=== PATIENT | female | born 1960 | race Caucasian/White ===

== ENCOUNTER → 2019-11-22 08:59 | Outpatient (BNVA) | payer MEDICAID, SELFPAY | PROVIDERS: PCP Internal Medicine Geriatric Medicine; Referring Provider Internal Medicine Geriatric Medicine; Visit Provider Physician Assistant | DX: K21.9 Gastro-esophageal reflux disease without esophagitis (principal); R68.81 Early satiety; R13.10 Dysphagia, unspecified; Z79.899 Other long term (current) drug therapy; Z98.84 Bariatric surgery status | CPT/HCPCS: 99213 ==

== ENCOUNTER 2019-12-04 06:53 | Outpatient (REF) | payer MEDICAID, SELFPAY | END 2019-12-04 06:54 | disposition home or self-care (01) | LOC: HO.LAB 06:53 | PROVIDERS: Visit Provider Internal Medicine | DX: Z20.828 Contact with and (suspected) exposure to other viral communicable diseases (principal) | CPT/HCPCS: 87635 ==

== ENCOUNTER → 2020-01-16 07:53 | Outpatient (BNVA) | payer MEDICAID, SELFPAY | PROVIDERS: Visit Provider Physician Assistant | DX: K21.9 Gastro-esophageal reflux disease without esophagitis (principal) | CPT/HCPCS: 99212 ==

== ENCOUNTER 2020-02-22 11:57 | Outpatient (REF) | payer MEDICAID, SELFPAY | END 2020-02-22 11:58 | disposition home or self-care (01) | LOC: HO.LAB 11:57 | PROVIDERS: PCP Internal Medicine Geriatric Medicine; Visit Provider Internal Medicine | DX: Z20.828 Contact with and (suspected) exposure to other viral communicable diseases (principal) | CPT/HCPCS: 36415; C9803; U0003 ==

== ENCOUNTER 2020-04-02 13:15 | Outpatient (REF) | payer MEDICAID, SELFPAY ==
--- NOTE | ~2020-04-02 | MM_ITS ---
EXAMINATION: BONE DENSITOMETRY CLINICAL INDICATION: Asymptomatic premature menopause. COMPARISON: This is the patient's baseline examination. TECHNIQUE: Using a [employer] DXA System (software version: 13.1) manufactured by [employer], dual-energy x-ray absorptiometry was performed of the lumbar spine and left hip. The images are of good technical quality. Summary results are attached. FINDINGS: AP SPINE L1-L4: BMD 1.171 g/cm2, Z-score 0.9, T-score -0.1, normal. LEFT FEMUR, NECK: BMD 0.655 g/cm2, Z-score -1.6, T-score -2.8, osteoporosis. LEFT FEMUR, TOTAL: BMD 0.759 g/cm2, Z-score -1.2, T-score -2.0, osteopenia. IDENTIFIED RISK FACTORS: Early menopause, alcohol (3 or more units per day), bilateral oophorectomy, secondary osteoporosis, history of fracture (adult). HISTORY OF FRACTURE: Wrist, trauma. No insufficiency fracture reported. MEDICATIONS: Calcium, vitamin D. MM/XR DEXA axial skeleton IMPRESSION: 1. DIAGNOSIS: Osteoporosis based on the lowest T-score value of -2.8 in the femoral neck applying World Health Organization criteria. 2. 10-YEAR FRACTURE RISK PREDICTION, FRAX: According to the guidelines, FRAX calculation should only be performed on patients in the osteopenia bone density category. Therefore, FRAX was not performed on this patient. 3. Treatment Recommendations: NOF guidelines recommend consideration for treatment in postmenopausal women and men age 50 and older presenting with the following: -A hip or vertebral (clinical or morphometric) fracture. -T-score less than or equal to -2.5 at the femoral neck or spine after appropriate evaluation to exclude secondary causes. -Low bone mass at the hip or spine and a 10-year fracture probability by FRAX of greater than or equal to 3% for hip fracture or greater than or equal to 20% for major osteoporotic fracture based on the [place] adapted WHO algorithm. 4. Other Recommendations: All treatment decisions require clinical judgment and consideration of individual patient factors, including patient preferences, comorbidities, previous drug use, risk factors not captured in the FRAX model (e.g. frailty, falls, vitamin D deficiency, increased bone turnover, interval significant decline in bone density) and possible under or overestimation of fracture risk by FRAX. Additional medical evaluation for secondary cause of low bone mineral density may be appropriate. FUTURE SCAN RECOMMENDATION: People with diagnosed cases of osteoporosis or at high risk for fracture should have regular bone mineral density tests. For patients eligible for Medicare, routine testing is allowed once every 2 years. The testing frequency can be increased to one year for patients who have rapidly progressing disease, those who are receiving or discontinuing medical therapy to restore bone mass, or have additional risk factors.
== END 2020-04-02 13:16 | disposition home or self-care (01) ==
LOC: HO.MAMMO 13:15
PROVIDERS: PCP Internal Medicine Geriatric Medicine; Visit Provider Advanced Practice Midwife
DX: Z13.820 Encounter for screening for osteoporosis (principal); E28.319 Asymptomatic premature menopause; Z79.899 Other long term (current) drug therapy; Z87.81 Personal history of (healed) traumatic fracture; Z90.722 Acquired absence of ovaries, bilateral
CPT/HCPCS: 77080

== ENCOUNTER → 2020-06-06 11:32 | Outpatient (BNVA) | payer MEDICAID, SELFPAY | PROVIDERS: PCP Internal Medicine Geriatric Medicine; Visit Provider Internal Medicine | DX: J45.909 Unspecified asthma, uncomplicated (principal) | CPT/HCPCS: 99212 ==

== ENCOUNTER 2020-06-19 14:49 | Emergency (ER) | payer MEDICAID, SELFPAY ==
--- NOTE | ~2020-06-19 | CT_ITS ---
EXAMINATION: CT ABDOMEN AND PELVIS WITHOUT CONTRAST CLINICAL INFORMATION: Intermittent hematuria with flank pain. COMPARISON: CT abdomen pelvis 05/15/2017 TECHNIQUE: Multidetector volumetric imaging was performed from the superior aspect of the liver through the pubic symphysis. Sagittal and coronal reformatted images were obtained on the technologist's workstation. This CT examination was performed using dose optimization techniques as appropriate, variously including the following: *Automated exposure control *Adjustment of mA and/or kV according to patient size (this includes techniques or standardized protocols for targeted exams where dose is matched to indication/reason for exam; i.e. extremities or head) *Use of iterative reconstruction technique DLP: 677 mGy-cm FINDINGS: Visualized lung bases demonstrate mild dependent atelectasis. The liver is normal in size but demonstrates diffusely decreased attenuation. The gallbladder is surgically absent. The pancreas, spleen and right adrenal gland are unremarkable. The left adrenal gland is not definitively visualized. The kidneys are symmetric in size. There is a nonobstructing 1 mm calculus within the upper pole of the left kidney. There is mild dilatation of the left lower pole calyx without hydronephrosis. No right-sided renal calculi are present. There is no hydronephrosis of either kidney. Surgical changes of the stomach. Normal caliber loops of small and large bowel. Moderate colonic diverticulosis without CT evidence to suggest active diverticulitis. Normal appendix. The bladder is decompressed and therefore not accurately evaluated. No gross bladder abnormality identified. Uterus is surgically absent. No gross free pelvic fluid. No inguinal lymphadenopathy. Mild to moderate diffuse degenerative changes of the spine. CT/CT abdomen pelvis wo con IMPRESSION: 1. Tiny 1 mm nonobstructing left renal calculus. No hydronephrosis. 2. Colonic diverticulosis without CT evidence to suggest active diverticulitis. 3. Diffusely decreased liver attenuation suggesting hepatic steatosis. Correlation with liver enzymes recommended.
[2020-06-19 14:53] VITALS: PULSE 92; O2SAT 98
[2020-06-19 14:57] VITALS: BP 133/82; PULSE 89; RESP 18; TEMP 36.7; O2SAT 98; BMI 29.2
[2020-06-19 16:17] LABS: Appearance Urine CLEAR; Color Urine YELLOW; Glucose Urine UA NEG (NEG); Leukocyte Esterase Urine NEG (NEG); Nitrite Urine NEG (NEG); PH 6.5 (5.0-8.0); Urine Blood TRACE (NEG); Urine Ketones NEG (NEG); Urine Protein NEG (NEG-TRACE)
[2020-06-19 16:27] LABS: RBC Urine 0-2 /HPF (0); WBC Urine 0 /HPF (0-4)
[2020-06-19 16:28] LABS: Bacteria Urine TRACE /LPF
--- NOTE | 2020-06-19 18:08 | ED_ITS ---
HPI - Female Genitourinary General Chief complaint: Urogenital-Female Stated complaint: abd pain Time Seen by Provider: 06/19/20 18:08 Source: patient Mode of arrival: ambulatory Limitations: no limitations History of Present Illness HPI Narrative: Patient noticed bright blood when she wiped after urination for last 2 days got worse today denies any rectal bleeding and status post hysterectomy also complaining of low back pain and flank pain for last few days patient , had dysuria no frequency MD elicited complaint: dysuria Related Data Home Medications Medication Instructions Recorded Confirmed doxepin 75 mg capsule 75 mg PO BEDTIME 11/22/19 01/16/20 esomeprazole magnesium 10 mg 20 mg PO DAILY 11/22/19 01/16/20 granules delayed release for susp levothyroxine 75 mcg tablet 75 mcg PO DAILY 11/22/19 01/16/20 midodrine 10 mg tablet 5 mg PO TID 11/22/19 01/16/20 multivitamin with minerals-folic tab PO 11/22/19 01/16/20 acid 200 mcg chewable tablet omeprazole 20 mg capsule,delayed 20 mg PO DAILY 11/22/19 01/16/20 release topiramate 15 mg sprinkle capsule 75 mg PO BEDTIME 11/22/19 01/16/20 albuterol sulfate 90 mcg/actuation 2 puff INHALATION Q6H PRN 06/06/20 aerosol inhaler estazolam 1 mg tablet 3 mg PO BEDTIME tab 06/06/20 Previous Rx's Medication Instructions Recorded albuterol sulfate 2.5 mg INHALATION Q4H PRN #180 ml 05/24/20 Allergies Allergy/AdvReac Type Severity Reaction Status Date / Time Nubain Allergy Unknown SOB Verified 06/06/20 11:41 From NUBAIN Allergy Severe ANAPHYLAXIS Uncoded 11/02/19 18:20 Review of Systems Review of Systems: Constitutional : No Weight loss, No Fever, No Chills ENT/Mouth : No sore throat, No Rhinorrhea Eyes: No Eye Pain, No Swelling Cardiovascular : No Chest Pain, no palpitations Respiratory : No Cough, No Sputum, no shortness of breath Gastrointestinal : no Nausea, No Vomiting, No Diarrhea, No abdominal Pain, no black stools Genitourinary : + Dysuria, No Urinary Frequency Musculoskeletal : No joint pain, No Myalgias, No Joint Swelling Skin : No Skin Lesions, No rash Neuro : No Weakness, No Numbness, No Dizziness, No Headache Psych : No Anxiety/Panic, No Depression Heme/Lymph: No Bruising, No Lymphadenopathy Endocrine : No Polyuria, No Polydipsia All other systems reviewed and are negative Yes all other systems are reviewed and are negative [facility] Past Medical History Medical History Acid reflux Bronchial asthma Surgical History Hx of colonoscopy Family History Family History Father No problems noted. Mother No problems noted. Social History Social History Household Members Other:: alone Alcohol intake: never Smoking Status: Never smoker Smoked in Last 30 Days: No Use of substances other than those prescribed or required for medical reasons: No Advance Directives: No Advance Directives Information Provided: Yes Patient : No Physical Exam Vital Signs: Vital Signs: Last Vital Signs Temp 98.0 F 06/19/20 14:57 Pulse 73 06/19/20 18:28 Resp 18 06/19/20 18:28 BP 99/66 06/19/20 18:28 Pulse Ox 100 06/19/20 18:28 Body Mass Index 29.2 Appearance: Alert. Oriented X3. No acute distress. Eyes: PERRLA, No Nystagmus ENT: Pharynx normal. Oral Mucosa moist Neck: Normal inspection. Neck supple. CVS: Normal heart rate and rhythm. Pulses normal. Respiratory: No respiratory distress. Equal air entry bilateral, no wheezing/rales/rhonchi Abdomen: Soft and nontender. Bowel sounds are present, no mass palpable, no CVA tenderness diffuse lower back tenderness Skin: Skin warm and dry. Normal skin color. Normal skin turgor. Extremities: No lower extremity edema. No calf tenderness Neuro: Oriented X 3. No motor deficit. No sensory deficit.No cerebellar signs , cranial nerves II-XII intact MDM - Female Genitourinary MDM Narrative Medical decision making narrative: Patient with intermittent hematuria with low back pain will do CT scan to rule out stone. Patient urinated in the ER this time there was no blood in the urine. Lab Data Attestation: I reviewed the patient's lab results. Result diagrams: 06/19/20 18:38 06/19/20 18:38 Labs: Lab Results 06/19/20 06/19/20 06/19/20 Range/Units 16:08 18:38 18:38 WBC 6.4 (4.8-10.8) X10*3/uL RBC 4.78 (4.20-5.50) X10*6/uL Hgb 13.3 (12.0-16.0) g/dl Hct 41.8 (37-47) % MCV 87.4 (80-98) fL MCH 27.8 (27.0-33.0) pg MCHC 31.8 (31.0-35.0) g/dl RDW 14.6 (11.0-16.0) % Plt Count 275 (160-400) X10*3/uL MPV 9.5 (9.4-12.3) fL Immature Gran % (Auto) 0.2 (0.0-0.4) % Neut % (Auto) 60.5 (45-73) % Lymph % (Auto) 27.6 (20-40) % Coffee % (Auto) 9.8 (2-11) % Eos % (Auto) 1.4 (0-4) % Baso % (Auto) 0.5 (0-2) % Lymph # (Auto) 1.8 (1.2-4.9) X10*3/uL Coffee # (Auto) 0.6 (0.1-1.2) X10*3/uL Eos # (Auto) 0.1 (0.0-0.4) X10*3/uL Baso # (Auto) 0.0 (0.0-0.2) X10*3/uL Abs Immat Gran (auto) 0.01 (0.00-0.03) X10*3/uL Absolute Neuts (auto) 3.9 (2.0-8.3) X10*3/uL Absolute Nucleated RBC 0.000 (0.0-0.012) X10*3/uL Nucleated RBC % (auto) 0.0 (0.0-0.2) /100WBC Sodium 140 (135-145) mmol/L Potassium 4.2 (3.3-5.1) mmol/L Chloride 109 H (96-108) mmol/L Carbon Dioxide 25 (22-29) mmol/L Anion Gap 10 L (12-20) BUN 22 H (9-16) mg/dL Creatinine 0.79 (0.5-1.4) mg/dL Estim Creat Clear Calc 72.4 Estimated GFR > 60 Random Glucose 105 (60-115) mg/dL Calcium 8.8 (8.4-10.2) mg/dL Total Bilirubin 0.4 (0.0-1.0) mg/dL Direct Bilirubin < 0.2 (0.0-0.5) mg/dL AST 19 (5-31) U/L ALT 16 (0-31) U/L Alkaline Phosphatase 77 (39-117) U/L Total Protein 6.8 (6.5-8.0) g/dL Albumin 4.0 (3.5-5.0) g/dL Urine Color YELLOW Urine Appearance CLEAR Urine pH 6.5 (5.0-8.0) Ur Specific [place] 1.010 (1.005-1.025) Urine Protein NEG (NEG-TRACE) MG/DL Urine Glucose (UA) NEG (NEG) MG/DL Urine Ketones NEG (NEG) MG/DL Urine Blood TRACE (NEG) Urine Nitrite NEG (NEG) Ur Leukocyte Esterase NEG (NEG) Urine RBC 0-2 (0) /HPF Urine WBC 0 (0-4) /HPF Ur Squamous Epith Cells NONE /LPF Urine Bacteria TRACE /LPF Discharge Plan Discharge Clinical Impression: Hematuria Qualifiers: Hematuria type: gross Qualified Code(s): R31.0 - Gross hematuria Patient Disposition: Home, Self-Care Instructions: Hematuria (ED) Additional Instructions: Drink plenty of fluids no blood in the urine noticed in the ER. Her CT scan is also negative for any acute pathology. Follow with urologist if blood in urine continues Prescriptions: No Action albuterol sulfate 2.5 mg /3 mL (0.083 %) solution for nebulization 2.5 mg inhalation Q4H PRN (Reason: shortness of breath or wheezing) Qty: 180 RF: 0 doxepin 75 mg capsule 75 mg PO BEDTIME RF: 0 levothyroxine [Levo-T] 75 mcg tablet 75 mcg PO DAILY RF: 0 esomeprazole magnesium [address] for susp in packet 20 mg PO DAILY RF: 0 topiramate [Topamax] 15 mg capsule, sprinkle 75 mg PO BEDTIME RF: 0 Adult Multivitamin Gummies 200 mcg tablet,chewable PO RF: 0 omeprazole 20 mg capsule,delayed release(DR/EC) 20 mg PO DAILY RF: 0 midodrine 10 mg tablet 5 mg PO TID RF: 0 estazolam 1 mg tablet 3 mg PO BEDTIME RF: 0 albuterol sulfate [ProAir HFA] 90 mcg/actuation HFA aerosol inhaler 2 puff inhalation Q6H PRNRF: 0 Referrals: Eliazar Caputo MD [Physician] - 1 week Interventions: ED Discharge Assessment Last Done: 06/19/20 20:56 Discharge Date/Time: 06/19/20 21:00
[2020-06-19 18:28] VITALS: BP 99/66; PULSE 73; RESP 18; O2SAT 100
[2020-06-19 18:43] LABS: MANUAL DIFF FLAG NO
[2020-06-19 18:47] LABS: Basophils Percent Auto 0.5 % (0-2); Eosinophils Absolute Auto 0.1 X10*3/uL (0.0-0.4); Eosinophils Percent Auto 1.4 % (0-4); Hematocrit 41.8 % (37-47); Hemoglobin 13.3 g/dl (12.0-16.0); Imm Gran Abs Auto 0.01 X10*3/uL (0.00-0.03); Imm Gran Pct Auto 0.2 % (0.0-0.4); Lymphocytes Absolute Auto 1.8 X10*3/uL (1.2-4.9); Lymphocytes Percent Auto 27.6 % (20-40); Mean Corpuscular HGB Conc 31.8 g/dl (31.0-35.0); Mean Corpuscular Hemoglobin 27.8 pg (27.0-33.0); Mean Corpuscular Volume 87.4 fL (80-98); Mean Platelet Volume 9.5 fL (9.4-12.3); Monocytes Absolute Auto 0.6 X10*3/uL (0.1-1.2); Monocytes Percent Auto 9.8 % (2-11); Neutrophils Absolute Auto 3.9 X10*3/uL (2.0-8.3); Neutrophils Percent Auto 60.5 % (45-73); Platelet Count 275 X10*3/uL (160-400); Red Blood Count 4.78 X10*6/uL (4.20-5.50); Red Cell Distribution Width 14.6 % (11.0-16.0); White Blood Count 6.4 X10*3/uL (4.8-10.8)
[2020-06-19 19:08] LABS: Alanine Aminotransferase 16 U/L (0-31); Alkaline Phosphatase 77 U/L (39-117); Anion Gap 10 (12-20); Aspartate Amino Transferase 19 U/L (5-31); Bilirubin Direct < 0.2 mg/dL (0.0-0.5); Bilirubin Total 0.4 mg/dL (0.0-1.0); Blood Urea Nitrogen 22 mg/dL (9-16); Calcium 8.8 mg/dL (8.4-10.2); Carbon Dioxide 25 mmol/L (22-29); Chloride 109 mmol/L (96-108); Creatinine Clr Calc Pharmacy 72.4; Estimated Glomerular Filt Rate > 60; Glucose Random 105 mg/dL (60-115); Potassium 4.2 mmol/L (3.3-5.1); Sodium 140 mmol/L (135-145); Total Protein 6.8 g/dL (6.5-8.0)
== END 2020-06-19 21:00 | disposition home or self-care (01) ==
PROVIDERS: Emergency Medicine; Emergency Provider Internal Medicine; PCP Internal Medicine Geriatric Medicine
DX: R31.0 Gross hematuria (principal); Z79.899 Other long term (current) drug therapy
CPT/HCPCS: 36415; 74176; 80048; 80076; 81001; 85025; 99284

== ENCOUNTER → 2020-07-03 10:22 | Outpatient (BNVA) | payer MEDICAID, SELFPAY | PROVIDERS: PCP Internal Medicine Geriatric Medicine; Visit Provider Physician Assistant | DX: K57.30 Diverticulosis of large intestine without perforation or abscess without bleeding (principal); K62.5 Hemorrhage of anus and rectum | CPT/HCPCS: 99202 ==

== ENCOUNTER 2020-08-08 06:01 | Day surgery (SDC) | payer MEDICAID, SELFPAY ==
[2020-08-01 14:19] VITALS: BMI 28.8
--- NOTE | 2020-08-07 08:43 | HO.ANESPROP2 ---
Documented by User: Farrah Vela 08/07/20 08:43 HPI - Anesthesia Eval Consult details Narrative: 59yo F for Colonoscopy PMFSH Active Problems Active Problems: All Active Problems (Updated 08/01/20 @ 13:50 by Romana Luna) Early satiety (Acute) Rectal bleeding (Acute) Diverticulosis of colon (Acute) Bronchial asthma (Acute) Acid reflux (Acute) Past Medical History Medical History (Updated 08/08/20 @ 07:46 by Rajwinder Rousseau) Acid reflux Bronchial asthma Colon polyp COVID-19 vaccine administered Crystal arthropathy Diverticulosis of colon Kidney calculi Kidney tumor Pseudotumor cerebri Right shoulder injury Thyroid disease Family History Family History Father No problems noted. Mother No problems noted. Surgical History Surgical History History of hysterectomy History of surgery on wrist Hx laparoscopic cholecystectomy Hx of colonoscopy Hx of gastric bypass Previous section Social History Social History Household Members: None Household Members Other:: alone Are you a primary caretaker resort to a significant other at home: No Do you presently have visiting nurse or other home services: No Alcohol intake: never Patient Tobacco Use Status: Never used Tobacco Use of substances other than those prescribed or required for medical reasons: No Have you been hit, kicked, punched, or otherwise hurt by someone within the past year? If so, by whom?: No Are you DNR?: No Advance Directives: No Advance Directives Information Provided: No Advance Directives on File: No Recently lost weight without trying: No Eating poorly because of decreased appetite: No Nutrition Risks: No Nutritional Risk Current occupational status: disabled Meds Allergies Allergy/AdvReac Type Severity Reaction Status Date / Time Nubain Allergy Severe Anaphylaxis Verified 08/08/20 06:28 Home Medications Medication Instructions Recorded Confirmed Last Taken Type doxepin 75 mg capsule 75 mg PO BEDTIME 11/22/19 08/01/20 Unknown History levothyroxine 75 mcg tablet 75 mcg PO DAILY 11/22/19 08/01/20 Unknown History midodrine 10 mg tablet 5 mg PO TID 11/22/19 08/01/20 Unknown History multivitamin with minerals-folic 1 tab PO DAILY 11/22/19 08/01/20 Unknown History acid 200 mcg chewable tablet omeprazole 20 mg capsule,delayed 20 mg PO DAILY 11/22/19 08/01/20 Unknown History release topiramate 15 mg sprinkle capsule 75 mg PO BEDTIME 11/22/19 08/01/20 Unknown History albuterol sulfate 90 mcg/actuation 2 puff INHALATION Q6H PRN 06/06/20 08/01/20 Unknown History aerosol inhaler estazolam 1 mg tablet 3 mg PO BEDTIME tab 06/06/20 08/01/20 Unknown History Exam Exam Date and Time: August 07, 2020 0843 Height,Weight and Vital Signs: Height 5 ft 3 in Weight 73.936 kg Pertinent Lab Results Pertinent Lab Results: Laboratory Tests 06/19/20 06/19/20 18:38 18:38 WBC 6.4 Hgb 13.3 Hct 41.8 Plt Count 275 Sodium 140 Potassium 4.2 Chloride 109 H Carbon Dioxide 25 BUN 22 H Creatinine 0.79 Assessment and Plan Assessment Anesthesia Assessment: Chart Reviewed Documented by User: Rajwinder Rousseau 08/08/20 07:52 [facility] Past Medical History Medical History (Updated 08/08/20 @ 07:46 by Rajwinder Rousseau) Acid reflux Bronchial asthma Colon polyp COVID-19 vaccine administered Crystal arthropathy Diverticulosis of colon Kidney calculi Kidney tumor Pseudotumor cerebri Right shoulder injury Thyroid disease Family History Family History Father No problems noted. Mother No problems noted. Family history of problems with anesthesia: No Surgical History Surgical History History of hysterectomy History of surgery on wrist Hx laparoscopic cholecystectomy Hx of colonoscopy Hx of gastric bypass Previous section History of Problems with Anesthesia: No Social History Social History Household Members: None Household Members Other:: alone Are you a primary caretaker resort to a significant other at home: No Do you presently have visiting nurse or other home services: No Alcohol intake: never Patient Tobacco Use Status: Never used Tobacco Use of substances other than those prescribed or required for medical reasons: No Have you been hit, kicked, punched, or otherwise hurt by someone within the past year? If so, by whom?: No Are you DNR?: No Advance Directives: No Advance Directives Information Provided: No Advance Directives on File: No Recently lost weight without trying: No Eating poorly because of decreased appetite: No Nutrition Risks: No Nutritional Risk Current occupational status: disabled Meds Allergies Allergy/AdvReac Type Severity Reaction Status Date / Time Nubain Allergy Severe Anaphylaxis Verified 08/08/20 06:28 Home Medications Medication Instructions Recorded Confirmed Last Taken Type doxepin 75 mg capsule 75 mg PO BEDTIME 11/22/19 08/01/20 Unknown History levothyroxine 75 mcg tablet 75 mcg PO DAILY 11/22/19 08/01/20 Unknown History midodrine 10 mg tablet 5 mg PO TID 11/22/19 08/01/20 Unknown History multivitamin with minerals-folic 1 tab PO DAILY 11/22/19 08/01/20 Unknown History acid 200 mcg chewable tablet omeprazole 20 mg capsule,delayed 20 mg PO DAILY 11/22/19 08/01/20 Unknown History release topiramate 15 mg sprinkle capsule 75 mg PO BEDTIME 11/22/19 08/01/20 Unknown History albuterol sulfate 90 mcg/actuation 2 puff INHALATION Q6H PRN 06/06/20 08/01/20 Unknown History aerosol inhaler estazolam 1 mg tablet 3 mg PO BEDTIME tab 06/06/20 08/01/20 Unknown History Exam Height,Weight and Vital Signs: Vital Signs Temp Pulse Resp BP Pulse Ox 08/08/20 06:29 96.9 F 74 16 122/79 100 Airway Mallampati Class: II TM Dist: >3cm Neck ROM: Limited Heart: RRR Lungs: CTAB Assessment and Plan Assessment Anesthesia Assessment: Anesthesia Plan Discussed and Chart Reviewed Final Anesthetic Review NPO: Yes ASA Class: II Final Preanesthetic Review: No Changes in Pt Med Stat, Meds/Allgs Chart Reviewed, Consent Obtained/Reviewed and Anes Risks/Benef Reviewed Patient Risk: Intermediate Procedure Risk: Low Assessment/Block/Sedation in SS: Assess/Block/Sedation-SS Anesthetic Plan Anesthetic Plan: MAC: Disposition: Standard PACU
[2020-08-08 06:29] VITALS: BP 122/79; PULSE 74; RESP 16; TEMP 36.1; O2SAT 100
[2020-08-08] MEDS: Lactated Ringers 1,000 ML 100 ML IVCONT (06:50)
--- NOTE | 2020-08-08 07:08 | W.PM.OPN ---
Operative Note Operative Note Date of Service: 08/08/20 Narrative: Pre-op diagnosis: Colon cancer screening, rectal bleeding Post-op diagnosis: other (Colon polyps, diverticulosis, hemorrhoids, nodule HF.) Procedure: COLONOSCOPY TILL CECUM WITH BIOPSIES Consent: Indications for the procedure and potential complications of bleeding, perforation, reaction to medications and missed diagnosis were discussed with the patient and informed consent was obtained. Instrument: Olympus PCF H 190 L variable stiffness pediatric colonoscope Monitoring: Vital signs and clinical assessment, intermittent blood pressure monitoring, continuous EKG monitoring, Pulse oximetry and Carbon Dioxide monitoring were done throughout the procedure. Colon withdrawl time was 23 minutes. Procedure: The patient was placed in the left lateral decubitis position and pre-procedure medications were administered. After a digital rectal examination of the ano-rectum, the video colonoscope was inserted into the rectum and advanced through the colon to the cecum. The colonoscope was slowly withdrawn in a retrograde panoramic fashion and the colon mucosa was carefully examined including a retroflexed view of the rectum. Findings and interventions are described below. Procedure Difficulty: Without difficulty Findings: Terminal Ileum: Not evaluated Cecum: Normal Ascending Colon: a 3-4 mm sessile polyp removed with a cold biopsy. Transverse Colon: Normal Descending Colon: Moderate diverticulosis Sigmoid Colon: A 2-3 mm diminutive appearing polyp - removed with a cold bx. Severe diverticulosis Rectum: Normal Ano-rectum: Moderate internal hemorrhoids Colon preparation: Good after some irrigation Impression and Post Procedure Diagnosis: Colonoscopy Findings: Two small polyps removed Moderate to severe diverticulosis seen in the left colon Moderate hemorrhoids on retroflexed exam. Plan: Await pathology results Patient has an appointment on 08/26/20 in the GI Clinic with YARI Arevalo . Repeat Colonoscopy interval based on path results - in 3-5 years if polyps are adenomatous and 10 years if polyps are hyperplastic. Above findings were reviewed with the patient and colon polyps, hemorrhoids and diverticulosis handouts were given in the discharge area Surgeon: Marguerite Elizabeth MD Anesthesia: MAC (Cassie Saez CRNA) Was an Animal Shelter Clerk used for this Procedure?: No Animal Shelter Clerk: Frnaces Del Toro Estimated blood loss (mL): 0 Pathology: other (A. AC polyp x 1, B. Nodule HF - rule out lipoma, C. SC polyp x 1) Condition: stable Disposition: PACU
--- NOTE | 2020-08-08 07:08 | MHC.SHP ---
Pre-Procedural Eval Section A The patient is an INPATIENT: No The History & Physical has been completed within 30 days and I have reviewed it.: No Section B Chief Complaint: Rectal Bleeding Details of Present Illness: Colon cancer screening, rectal bleeding Relevant Family History (Specify if Yes): No Relevant Social History: None Present Medications: see Short Stay Collaborative assessment Medical History: Significant History (Acid reflux Bronchial asthma Colon polyp Diverticulosis of colon) History of Previous Operations: Relevant previous surgery/procedure and date(s) (Hx of colonoscopy) Allergies: Allergies Allergy/AdvReac Type Severity Reaction Status Date / Time Nubain Allergy Severe Anaphylaxis Verified 08/08/20 06:28 Review of Systems Sugical H&P ROS: Negative: Constitution, Cardiovascular and Respiratory and Yes, Specify: Gastrointestinal (rectal bleeding) Exam Surgical H&P Exam: Normal: Heart, Normal: Lungs, Normal: Extremities and Normal: Abdomen Plan Diagnosis/Plan: Unchanged I have reviewed the history and physical and performed a pertinent physical examination on my patient. No changes have occurred unless specified.
[2020-08-08 08:26] VITALS: BP 93/45; PULSE 68; RESP 16; TEMP 36.8; O2SAT 99
[2020-08-08 08:43] VITALS: BP 96/52; PULSE 73; RESP 14; TEMP 36.8; O2SAT 100
== END 2020-08-08 09:30 | disposition home or self-care (01) ==
PROVIDERS: PCP Internal Medicine Geriatric Medicine; Visit Provider Internal Medicine Gastroenterology
PROC: 0DJD8ZZ Inspection of Lower Intestinal Tract, Via Natural or Artificial Opening Endoscopic (ICD-10-PCS; CPT 45378; principal; 2020-08-08 07:30)
DX: Z12.11 Encounter for screening for malignant neoplasm of colon (principal); Z86.010 Personal history of colon polyps; K62.5 Hemorrhage of anus and rectum; K63.5 Polyp of colon; K57.30 Diverticulosis of large intestine without perforation or abscess without bleeding; K64.8 Other hemorrhoids; R68.81 Early satiety; K21.9 Gastro-esophageal reflux disease without esophagitis; J45.20 Mild intermittent asthma, uncomplicated; Z79.899 Other long term (current) drug therapy; Z90.49 Acquired absence of other specified parts of digestive tract; Z98.84 Bariatric surgery status
CPT/HCPCS: 45380; 88305; J2370

== ENCOUNTER → 2020-08-20 09:00 | Outpatient (BNVA) | payer MEDICAID, SELFPAY | PROVIDERS: PCP Internal Medicine Geriatric Medicine; Visit Provider Urology | DX: N20.0 Calculus of kidney (principal) | CPT/HCPCS: 99202 ==

== ENCOUNTER → 2020-08-26 08:50 | Outpatient (BNVA) | payer MEDICAID, SELFPAY | PROVIDERS: PCP Internal Medicine Geriatric Medicine; Visit Provider Physician Assistant ==

== ENCOUNTER 2020-09-30 10:42 | Outpatient (REF) | payer MEDICAID, SELFPAY ==
--- NOTE | ~2020-09-30 | XR_ITS ---
EXAMINATION: XR LUMBOSACRAL SPINE CLINICAL INFORMATION: Back pain. COMPARISON: Lumbar spine MRI dated 03/03/2012 TECHNIQUE: Three views of the lumbosacral spine. FINDINGS: Normal vertebral body alignment. The lumbar lordosis is maintained. No acute fracture or subluxation. No loss of vertebral body or intervertebral disc height. Tiny multilevel anterior endplate osteophytes. Mild multilevel bilateral facet arthropathy. Right and left upper quadrant surgical clips. XR/XR lumbar spine 2-3V IMPRESSION: Mild multilevel degenerative disc disease and bilateral facet arthropathy, new/increased when compared to the prior MRI.
--- NOTE | ~2020-09-30 | XR_ITS ---
EXAMINATION: XR SHOULDER, RIGHT CLINICAL INFORMATION: Right shoulder pain. COMPARISON: Right shoulder CT dated 01/19/2019 TECHNIQUE: AP external rotation, Grashey, scapular Y, and axillary views of the right shoulder. FINDINGS: No acute fracture or dislocation. Chronic superior subluxation of the humeral head indicating underlying rotator cuff tendon tear. Mild acromial undersurface bony remodeling and degenerative cystic change in the adjacent humeral head. Findings have increased when compared to the prior examination. Acromioclavicular and glenohumeral marginal osteophytes. No abnormal soft tissue calcification. XR/XR shoulder RT min 2V IMPRESSION: 1. Chronic superior subluxation of the humeral head indicating an underlying rotator cuff tendon tear. Associated degenerative change and acromial undersurface remodeling has increased when compared to the prior examination. 2. Mild acromioclavicular and glenohumeral osteoarthritis.
== END 2020-09-30 10:43 | disposition home or self-care (01) ==
LOC: HO.XRAY 10:42
PROVIDERS: PCP Internal Medicine Geriatric Medicine; Visit Provider Internal Medicine Geriatric Medicine
DX: M25.511 Pain in right shoulder (principal); M54.9 Dorsalgia, unspecified
CPT/HCPCS: 72100; 73030

== ENCOUNTER 2020-12-19 11:18 | Emergency (ER) | payer MEDICAID, SELFPAY ==
--- NOTE | ~2020-12-19 | CT_ITS ---
EXAMINATION: CT HEAD WITHOUT CONTRAST CLINICAL INFORMATION: Dizziness, headache. Rule out stroke and bleed. COMPARISON: CT head dated from 04/13/2019. TECHNIQUE: Contiguous axial imaging was performed from the skull base to vertex without intravenous administration of contrast. This CT examination was performed using dose optimization techniques as appropriate, variously including the following: *Automated exposure control *Adjustment of mA and/or kV according to patient size (this includes techniques or standardized protocols for targeted exams where dose is matched to indication/reason for exam; i.e. extremities or head) *Use of iterative reconstruction technique DLP: 602 mGy-cm FINDINGS: There is no evidence of acute intracranial hemorrhage or edematous territorial infarction. There is no abnormal attenuation within the brain parenchyma. Saunders-white matter differentiation is preserved. The ventricles are normal in size and configuration. No evidence for obstructive hydrocephalus. No abnormal mass effect or midline shift. No extra-axial fluid collections. No acute soft tissue or osseous abnormalities. The mastoid air cells and paranasal sinuses are clear. CT/CT head/brain wo con IMPRESSION: No evidence of acute intracranial hemorrhage or edematous territorial infarction.
[2020-12-19 11:42] VITALS: BP 108/67; BP 115/68; PULSE 65; PULSE 88; RESP 18; TEMP 36.8; O2SAT 100; O2SAT 99; BMI 34.7
--- NOTE | 2020-12-19 11:58 | ECG_ITS ---
Test Reason : DIZINESS Blood Pressure : / mmHG Vent. Rate : 067 BPM Atrial Rate : 067 BPM P-R Int : 164 ms QRS Dur : 072 ms QT Int : 368 ms P-R-T Axes : 013 010 010 degrees QTc Int : 388 ms Normal sinus rhythm with sinus arrhythmia Low voltage QRS Borderline ECG No significant changes seen Referred By: Min Santiago Electronically Signed By:DANO SIDHU MD
--- NOTE | 2020-12-19 11:59 | ED_ITS ---
HPI - Dizziness General Chief Complaint: Dizziness Stated Complaint: VERTIGO, DIZZINESS Time Seen by Provider: 12/19/20 11:45 Source: patient Mode of arrival: EMS Limitations: no limitations History of Present Illness HPI Narrative: 60-year-old female who presents emergency department for evaluation vertigo like symptoms. She states that she has had the sensation that her body is spinning whenever she changes positions. She states that this sensation is intermittent and she has been experiencing it for the past 2 days. She states that she has had a history of vertigo and has been taking meclizine since last night she has taken approximately 2 doses without any relief of her symptoms. She denied any associated change in her vision, nausea, vomiting, headache, numbness, weakness, difficulty speaking or thinking. She states that she did have a productive cough approximately 1 week prior with left-sided chest pain but this resolved. She also states she had nausea vomiting 1 week prior but this resolved as well. Related Data Home Medications Medication Instructions Recorded Confirmed doxepin 75 mg capsule 75 mg PO BEDTIME 11/22/19 08/26/20 levothyroxine 75 mcg tablet 75 mcg PO DAILY 11/22/19 08/26/20 (Levo-T) midodrine 10 mg tablet 5 mg PO TID 11/22/19 08/26/20 multivitamin with minerals-folic 1 tab PO DAILY 11/22/19 08/26/20 acid 200 mcg chewable tablet (Adult Multivitamin Gummies) omeprazole 20 mg capsule,delayed 20 mg PO DAILY 11/22/19 08/26/20 release topiramate 15 mg sprinkle capsule 75 mg PO BEDTIME 11/22/19 08/26/20 (Topamax) estazolam 1 mg tablet 3 mg PO BEDTIME tab 06/06/20 08/26/20 Previous Rx's Medication Instructions Recorded albuterol sulfate 90 mcg/actuation 2 puff INHALATION Q6H PRN #1 ea 11/28/20 aerosol inhaler (ProAir HFA) albuterol sulfate 2.5 mg (3 mL) INHALATION Q4H PRN 12/02/20 #180 ml hydrochlorothiazide 12.5 mg tablet 12.5 mg PO DAILY #30 tab 12/19/20 meclizine 25 mg tablet (Dramamine 25 mg PO TID PRN #20 tab 12/19/20 Less Drowsy) Allergies Allergy/AdvReac Type Severity Reaction Status Date / Time Nubain Allergy Severe Anaphylaxis Verified 08/26/20 08:52 Review of Systems Review of Systems: Yes all other systems are reviewed and are negative [facility] [place] Past Medical History [facility] [place] Narrative: Social history: She denies tobacco, alcohol and drug use. Medical History Acid reflux Bronchial asthma Colon polyp COVID-19 vaccine administered Crystal arthropathy Diverticulosis of colon Kidney calculi Kidney tumor Pseudotumor cerebri Right shoulder injury Thyroid disease Surgical History History of esophagogastroduodenoscopy (EGD) History of hysterectomy History of surgery on wrist Hx laparoscopic cholecystectomy Hx of colonoscopy Hx of gastric bypass Previous section Family History Family History Father No problems noted. Mother No problems noted. Social History Social History Household Members: None Household Members Other:: alone Are you a primary hospice home care coordinator to a significant other at home: No Do you presently have visiting nurse or other home services: No Alcohol intake: never Patient Tobacco Use Status: Never used Tobacco Use of substances other than those prescribed or required for medical reasons: No Advance Directives: No Advance Directives Information Provided: No Patient : No Current occupational status: disabled Physical Exam Vital Signs: Vital Signs: Last Vital Signs Temp 98.2 F 12/19/20 11:42 Pulse 65 12/19/20 11:42 Resp 18 12/19/20 11:42 BP 115/68 12/19/20 11:42 Pulse Ox 99 12/19/20 11:42 Body Mass Index 34.7 Const: Other: Awake, alert, pleasant cooperative female patient, appears to be anxious but otherwise is not in any distress. Answers all questions appro priately HENMT: Head: Yes normal to inspection, Yes normocephalic and Yes atraumatic Ears: external ears normal General nose exam: Normal external nose present Face and sinus: Yes normal facial exam Mouth: Normal oral and palatal mucosa present Throat: Yes posterior oropharynx normal Eyes: General: appearance normal, both eyes and all related structures Pupils: Equal, round and reactive pupils present EOM: EOMs intact bilaterally and Nystagmus present (Lateral) Neck: Neck: Yes normal visual inspection, Yes no lymphadenopathy, Yes trachea midline and Yes supple Chest: Chest palpation & inspection: normal inspection of the chest and normal palpation of entire chest wall Resp: Effort & Inspection: normal respiratory effort and able to speak in complete sentences Auscultation: clear to auscultation bilaterally Cardio: Rate: regular rate Rhythm: regular rhythm Heart sounds: S1 normal heart sound present, S2 normal heart sound present and no murmurs GI: Inspection: Yes normal to inspection Palpation (GI): Soft to palpation, nontender and no guarding Auscultation: normal bowel sounds : General: Yes no CVA tenderness Back/Spine/Pelvis: Back: no CVA tenderness Skin: General skin exam: no rashes or lesions noted Neuro: Cranial nerves: Yes CN's II-XII intact bilaterally, Yes Equal, round and reactive pupils present and Yes Nystagmus present (Lateral) Cognition (Neuro): normal cognition Motor exam (neuro): 5/5 motor strength present throughout Coordination: [id number] test normal (Except right secondary to rotator cuff injury) and [id number] test normal Extrem: General: Yes normal to inspection Psych: Appearance: grossly normal Speech and movement: Normal speech and movement present Affect: Anxious affect present Attitude: cooperative Thought process: Normal thought process present Thought content: Normal thought content present Course Course Course Narrative: 60-year-old female who presents emergency department for evaluation of intermittent room spinning vertigo x2 days, worse this morning. She has had similar presentations in the past. She states that she took meclizine last night without any relief of her symptoms. Physical examination revealed normal vital signs. The patient does appear to be anxious, she does have lateral nystagmus, otherwise her exam was unremarkable. I did order laboratory evaluation to include CBC, CMP, troponin, EKG. Patient's symptoms are most likely secondary to positional vertigo however I will make sure that she does not have any significant electrolyte abnormalities and that she does not have any cardiac abnormalities as the cause of her symptoms. Patient was treated with Ativan 1 mg orally and meclizine 25 mg orally. 1519: The patient's laboratory evaluation was unremarkable. Twelve EKG was normal. The patient has CT scan of the head which revealed no acute abnormalit ies. Patient states that despite receiving the meclizine and Ativan she still is having episodes of feeling off this time I believe that his symptoms are due to acute positional vertigo but she has had similar symptoms in the past. The patient was advised to continue taking meclizine and I started her on hydrochlorothiazide 12.5 mg once a day for 1 month also treat her vertigo. The patient states that she was exposed to someone with COVID-19 and she is requesting a COVID test. I will test the patient for COVID-19 and contact her with the result. MDM - Dizziness Lab Data Result diagrams: 12/19/20 12:22 12/19/20 12:22 Labs: Lab Results 12/19/20 12/19/20 12/19/20 Range/Units 12:22 12:22 12:22 WBC 6.1 (4.8-10.8) X10*3/uL RBC 4.62 (4.20-5.50) X10*6/uL Hgb 13.2 (12.0-16.0) g/dl Hct 41.5 (37.0-47.0) % MCV 89.8 (80.0-98.0) fL MCH 28.6 (27.0-33.0) pg MCHC 31.8 (31.0-35.0) g/dl RDW 14.6 (11.0-16.0) % Plt Count 241 (160-400) X10*3/uL MPV 9.9 (9.4-12.3) fL Immature Gran % (Auto) 0.2 (0.0-0.4) % Neut % (Auto) 60.5 (45-73) % Lymph % (Auto) 24.1 (20-40) % Deuel % (Auto) 12.1 H (2-11) % Eos % (Auto) 2.3 (0-4) % Baso % (Auto) 0.8 (0-2) % Lymph # (Auto) 1.5 (1.2-4.9) X10*3/uL Deuel # (Auto) 0.7 (0.1-1.2) X10*3/uL Eos # (Auto) 0.1 (0.0-0.4) X10*3/uL Baso # (Auto) 0.1 (0.0-0.2) X10*3/uL Abs Immat Gran (auto) 0.01 (0.00-0.03) X10*3/uL Absolute Neuts (auto) 3.70 (2.0-8.3) x10*3/uL Absolute Nucleated RBC 0.000 (0.0-0.012) X10*3/uL Nucleated RBC % (auto) 0.0 (0.0-0.2) /100WBC Sodium 141 (135-145) mmol/L Potassium 4.9 (3.3-5.1) mmol/L Chloride 110 H (96-108) mmol/L Carbon Dioxide 26 (22-29) mmol/L Anion Gap 10 L (12-20) BUN 23 H (9-16) mg/dL Creatinine 0.82 (0.5-1.4) mg/dL Estim Creat Clear Calc 72.4 Estimated GFR > 60 Random Glucose 90 (60-115) mg/dL Calcium 8.8 (8.4-10.2) mg/dL Total Bilirubin 0.3 (0.0-1.0) mg/dL AST 17 (5-31) U/L ALT 17 (0-31) U/L Alkaline Phosphatase 75 (39-117) U/L Troponin I High Sens < 3.5 (<3.5-17.0) ng/L Total Protein 6.4 L (6.5-8.0) g/dL Albumin 3.8 (3.5-5.0) g/dL ECG Data Interpretation: 1214: Normal sinus rhythm rate of 67, normal ID, QRS and QTC durations, Q-wave in lead 3, inverted T-wave in V1, no ST segment elevation, no ST segment depression, normal P-waves. Discharge Plan Discharge Clinical Impression: Close exposure to 2019-nCoV Benign paroxysmal positional vertigo Qualifiers: Laterality: unspecified laterality Qualified Code(s): H81.10 - Benign paroxysmal vertigo, unspecified ear Patient Disposition: Home, Self-Care Instructions: Benign Paroxysmal Positional Vertigo (ED) Additional Instructions: Your laboratory evaluation was normal. Your EKG was unremarkable. The CT scan of your head without contrast revealed no stroke, bleeding or causes for your dizzy Your dizziness is related to the balance mechanism in your inner ears. Take meclizine 25 mg, 1 pill 3 times a day as needed for dizziness. Take hydrochlorothiazide 12.5 mg, 1 pill once a day in the morning for 1 month. This medication helps reduce vertigo symptoms in the people that continued to get recurrent episodes vertigo. Finish the whole month course of hydrochlorothiazide Follow-up with your doctor in 2 days. Please return to the emergency department if your symptoms get worse or if you develop any symptoms that are concerning to you. Prescriptions: New meclizine [Dramamine Less Drowsy] 25 mg tablet 25 mg PO TID PRN (Reason: dizziness) Qty: 20 RF: 0 hydrochlorothiazide 12.5 mg tablet 12.5 mg PO DAILY Qty: 30 RF: 0 No Action albuterol sulfate [ProAir HFA] 90 mcg/actuation HFA aerosol inhaler 2 puff inhalation Q6H PRN (Reason: Wheezing) Qty: 1 RF: 0 albuterol sulfate 2.5 mg /3 mL (0.083 %) solution for nebulization 2.5 mg inhalation Q4H PRN (Reason: shortness of breath or wheezing) Qty: 180 RF: 0 doxepin 75 mg capsule 75 mg PO BEDTIME RF: 0 levothyroxine [Levo-T] 75 mcg tablet 75 mcg PO DAILY RF: 0 topiramate [Topamax] 15 mg capsule, sprinkle 75 mg PO BEDTIME RF: 0 Adult Multivitamin Gummies 200 mcg tablet,chewable 1 tab PO DAILY RF: 0 omeprazole 20 mg capsule,delayed release(DR/EC) 20 mg PO DAILY RF: 0 midodrine 10 mg tablet 5 mg PO TID RF: 0 estazolam 1 mg tablet 3 mg PO BEDTIME RF: 0
[2020-12-19 12:29] LABS: MANUAL DIFF FLAG NO
[2020-12-19] MEDS: LORazepam 1 MG TABLET PO (12:30)
[2020-12-19 12:31] LABS: Basophils Absolute Auto 0.1 X10*3/uL (0.0-0.2); Basophils Percent Auto 0.8 % (0-2); Eosinophils Absolute Auto 0.1 X10*3/uL (0.0-0.4); Eosinophils Percent Auto 2.3 % (0-4); Hematocrit 41.5 % (37.0-47.0); Hemoglobin 13.2 g/dl (12.0-16.0); Imm Gran Abs Auto 0.01 X10*3/uL (0.00-0.03); Imm Gran Pct Auto 0.2 % (0.0-0.4); Lymphocytes Absolute Auto 1.5 X10*3/uL (1.2-4.9); Lymphocytes Percent Auto 24.1 % (20-40); Mean Corpuscular HGB Conc 31.8 g/dl (31.0-35.0); Mean Corpuscular Hemoglobin 28.6 pg (27.0-33.0); Mean Corpuscular Volume 89.8 fL (80.0-98.0); Mean Platelet Volume 9.9 fL (9.4-12.3); Monocytes Absolute Auto 0.7 X10*3/uL (0.1-1.2); Monocytes Percent Auto 12.1 % (2-11); Neutrophils Percent Auto 60.5 % (45-73); Platelet Count 241 X10*3/uL (160-400); Red Blood Count 4.62 X10*6/uL (4.20-5.50); Red Cell Distribution Width 14.6 % (11.0-16.0); White Blood Count 6.1 X10*3/uL (4.8-10.8)
[2020-12-19] MEDS: Meclizine HCl 25 MG TABLET PO (12:31)
[2020-12-19] MEDS: 0.9 % Sodium Chloride 1,000 ML 999 ML IV (12:34)
[2020-12-19 12:52] LABS: Alanine Aminotransferase 17 U/L (0-31); Albumin Level 3.8 g/dL (3.5-5.0); Alkaline Phosphatase 75 U/L (39-117); Anion Gap 10 (12-20); Aspartate Amino Transferase 17 U/L (5-31); Bilirubin Total 0.3 mg/dL (0.0-1.0); Blood Urea Nitrogen 23 mg/dL (9-16); Calcium 8.8 mg/dL (8.4-10.2); Carbon Dioxide 26 mmol/L (22-29); Chloride 110 mmol/L (96-108); Creatinine Clr Calc Pharmacy 72.4; Estimated Glomerular Filt Rate > 60; Glucose Random 90 mg/dL (60-115); Potassium 4.9 mmol/L (3.3-5.1); Sodium 141 mmol/L (135-145); Total Protein 6.4 g/dL (6.5-8.0)
[2020-12-19 12:56] LABS: Troponin-I High Sensitivity < 3.5 ng/L (<3.5-17.0)
[2020-12-19 15:32] VITALS: BP 115/73; PULSE 81; RESP 18; TEMP 36.6; O2SAT 100
[2020-12-19 15:51] LABS: COVID-19 Test Negative (Negative); IDNOW Serial# 9DD0AD1C
== END 2020-12-19 16:03 | disposition home or self-care (01) ==
PROVIDERS: Emergency Provider Emergency Medicine Emergency Medical Services; PCP Internal Medicine Geriatric Medicine
DX: H81.10 Benign paroxysmal vertigo, unspecified ear (principal); Z20.822 Contact with and (suspected) exposure to COVID-19
CPT/HCPCS: 36415; 70450; 80053; 84484; 85025; 87635; 93005; 96360; 99284; 99285

== ENCOUNTER → 2020-12-30 11:29 | Outpatient (BNVA) | payer MEDICAID, SELFPAY | PROVIDERS: PCP Internal Medicine Geriatric Medicine; Visit Provider Internal Medicine ==

== ENCOUNTER 2021-03-25 14:09 | Emergency (ER) | payer MEDICAID, SELFPAY ==
--- NOTE | ~2021-03-25 | CT_ITS ---
EXAMINATION: CT HEAD WITHOUT CONTRAST CT CERVICAL SPINE WITHOUT CONTRAST CLINICAL INFORMATION: Fall. Headache. COMPARISON: CT head 12/19/2020 TECHNIQUE: Imaging was performed from the skull base to vertex without intravenous administration of contrast. In addition, helical noncontrast CT imaging was acquired through the cervical spine and source images were reviewed along with axial reconstructions and sagittal and coronal MPRs. [This CT examination was performed using dose optimization techniques as appropriate, variously including the following: *Automated exposure control *Adjustment of mA and/or kV according to patient size (this includes techniques or standardized protocols for targeted exams where dose is matched to indication/reason for exam; i.e. extremities or head) *Use of iterative reconstruction technique] DLP: 1068 mGy-cm FINDINGS: HEAD: No intracranial mass, hemorrhage, or midline shift is visualized. The ventricles and sulci are proportional. No extra-axial collections are identified. Small retention cyst or lobular mucosal thickening inferior right maxillary sinus. CERVICAL SPINE: There is no evidence of acute cervical spine fracture. Vertebral bodies remain normal in height. Cervical vertebrae have normal alignment. There is multilevel degenerative spondylosis of the cervical spine with disc height narrowing and endplate spurs and facet joint arthrosis No pre- or paravertebral soft tissue abnormality is identified. Limited assessment of the lung apices is unremarkable. CT/CT cervical spine wo con IMPRESSION: 1. No acute intracranial pathology. 2. No CT evidence of acute cervical spine fracture or traumatic subluxation
--- NOTE | ~2021-03-25 | CT_ITS ---
EXAMINATION: CT HEAD WITHOUT CONTRAST CT CERVICAL SPINE WITHOUT CONTRAST CLINICAL INFORMATION: Fall. Headache. COMPARISON: CT head 12/19/2020 TECHNIQUE: Imaging was performed from the skull base to vertex without intravenous administration of contrast. In addition, helical noncontrast CT imaging was acquired through the cervical spine and source images were reviewed along with axial reconstructions and sagittal and coronal MPRs. [This CT examination was performed using dose optimization techniques as appropriate, variously including the following: *Automated exposure control *Adjustment of mA and/or kV according to patient size (this includes techniques or standardized protocols for targeted exams where dose is matched to indication/reason for exam; i.e. extremities or head) *Use of iterative reconstruction technique] DLP: 1068 mGy-cm FINDINGS: HEAD: No intracranial mass, hemorrhage, or midline shift is visualized. The ventricles and sulci are proportional. No extra-axial collections are identified. Small retention cyst or lobular mucosal thickening inferior right maxillary sinus. CERVICAL SPINE: There is no evidence of acute cervical spine fracture. Vertebral bodies remain normal in height. Cervical vertebrae have normal alignment. There is multilevel degenerative spondylosis of the cervical spine with disc height narrowing and endplate spurs and facet joint arthrosis No pre- or paravertebral soft tissue abnormality is identified. Limited assessment of the lung apices is unremarkable. CT/CT head/brain wo con IMPRESSION: 1. No acute intracranial pathology. 2. No CT evidence of acute cervical spine fracture or traumatic subluxation
--- NOTE | ~2021-03-25 | XR_ITS ---
EXAMINATION: XR LUMBOSACRAL SPINE CLINICAL INFORMATION: Pain. Fall. COMPARISON: Lumbar spine 09/30/2020 TECHNIQUE: Three views of the lumbosacral spine. FINDINGS: Lumbar vertebrae have normal height and normal alignment. No fracture. No bone destruction. There are vertebral endplate spurs of the lower thoracic vertebrae and minimal degenerative lipping of the lumbar vertebral bodies. There is mild to moderate multilevel facet joint arthrosis most significant at lower lumbar spine.. Sacroiliac joints are normal. Surgical sutures and surgical clips in the upper central abdomen. Compared to prior study of 09/30/2020 there is no substantial change. XR/XR lumbar spine 2-3V IMPRESSION: No acute abnormality. Degenerative spondylosis of lumbar spine.
[2021-03-25 14:23] VITALS: BP 120/92; BP 126/94; PULSE 87; PULSE 92; RESP 20; TEMP 36.5; O2SAT 97; BMI 31.6
--- NOTE | 2021-03-25 14:42 | ED.HEATRA ---
HPI - Head Injury General Chief complaint: Fall Stated complaint: Fall, Head Injury Time Seen by Provider: 03/25/21 14:26 Source: patient Mode of arrival: ambulatory Limitations: no limitations History of Present Illness HPI Narrative: Patient comes to emergency room complaining of a fall. 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 Patient thinks she lost consciousness. Patient complaining of headache, neck pain and lower back pain patient denies being on blood thinners. Patient denies urinary/fecal incontinence/retention Related Data Home Medications Medication Instructions Recorded Confirmed doxepin 75 mg capsule 75 mg PO BEDTIME 11/22/19 12/30/20 levothyroxine 75 mcg tablet 75 mcg PO DAILY 11/22/19 12/30/20 (Levo-T) midodrine 10 mg tablet 5 mg PO TID 11/22/19 12/30/20 multivitamin with minerals-folic 1 tab PO DAILY 11/22/19 12/30/20 acid 200 mcg chewable tablet (Adult Multivitamin Gummies) omeprazole 20 mg capsule,delayed 20 mg PO DAILY 11/22/19 12/30/20 release topiramate 15 mg sprinkle capsule 75 mg PO BEDTIME 11/22/19 12/30/20 (Topamax) estazolam 1 mg tablet 3 mg PO BEDTIME tab 06/06/20 12/30/20 fluticasone propionate 220 2 puff INHALATION BID 12/30/20 12/30/20 mcg/actuation HFA aerosol inhaler (Flovent HFA) Previous Rx's Medication Instructions Recorded albuterol sulfate 90 mcg/actuation 2 puff INHALATION Q6H PRN #1 ea 11/28/20 aerosol inhaler (ProAir HFA) albuterol sulfate 2.5 mg (3 mL) INHALATION Q4H PRN 12/02/20 #180 ml hydrochlorothiazide 12.5 mg tablet 12.5 mg PO DAILY #30 tab 12/19/20 meclizine 25 mg tablet (Dramamine 25 mg PO TID PRN #20 tab 12/19/20 Less Drowsy) acetaminophen 500 mg tablet 500 mg PO QID PRN #20 tab 03/25/21 Allergies Allergy/AdvReac Type Severity Reaction Status Date / Time Nubain Allergy Severe Anaphylaxis Verified 12/30/20 11:31 Review of Systems Review of Systems: Constitutional : No Weight loss, No Fever, No Chills, No Night Sweats, No Fatigue, No Malaise ENT/Mouth : No Hearing loss, No Ear Pain, No Nasal Congestion, No Sinus Pain, No Hoarseness, No sore throat, No Rhinorrhea, No Swallowing Difficulty Eyes: No Eye Pain, No Swelling, No Redness, No Foreign Body, No Discharge, No Vision Changes Cardiovascular : No Chest Pain, No SOB, No Dyspnea on Exertion, No Orthopnea, No Edema, No Palpitations Respiratory : No Cough, No Sputum, No Wheezing, No Smoke Exposure, No Dyspnea Gastrointestinal : No Nausea, No Vomiting, No Diarrhea, No Constipation, No abdominal Pain, No Hematochezia, No Melena Genitourinary : no irregular bleeding, No Dysuria, No Urinary Frequency, No Hematuria, No Urinary Incontinence, No Urgency, No Flank Pain, No Urinary Flow Changes, No Hesitancy Musculoskeletal : Complaining of lower back pain, No Myalgias, No Joint Swelling Skin : No Skin Lesions, No rash Neuro : No Weakness, No Numbness, No Paresthesias, No Loss of Consciousness, No Dizziness, complaining of headache Psych : No Anxiety/Panic, No Depression, No SI/HI/AH/VH, No Social Issues, Heme/Lymph: No Bruising, No Bleeding,No Lymphadenopathy Endocrine : No Polyuria, No Polydipsia, No Temperature Intolerance [facility] Past Medical History Medical History Acid reflux Bronchial asthma Colon polyp COVID-19 vaccine administered Crystal arthropathy Diverticulosis of colon Kidney calculi Kidney tumor Pseudotumor cerebri Right shoulder injury Thyroid disease Surgical History History of esophagogastroduodenoscopy (EGD) History of hysterectomy History of surgery on wrist Hx laparoscopic cholecystectomy Hx of colonoscopy Hx of gastric bypass Previous section Family History Family History Father No problems noted. Mother No problems noted. Social History Social History Household Members: None Household Members Other:: alone Are you a primary acute care certified nursing assistant to a significant other at home: No Do you presently have visiting nurse or other home services: No Alcohol intake: former Patient Tobacco Use Status: Former Tobacco user Smoked in Last 30 Days: No Use of substances other than those prescribed or required for medical reasons: No Advance Directives: No Advance Directives Information Provided: No Current occupational status: disabled Physical Exam Vital Signs: Vital Signs: Last Vital Signs Temp 96.4 F L 03/25/21 16:16 Pulse 72 03/25/21 16:16 Resp 14 03/25/21 16:16 BP 123/73 03/25/21 16:16 Pulse Ox 100 03/25/21 16:16 BMI result Body Mass Index 31.6 Const: Other: Appearance: Alert. Oriented X3. No acute distress. Very anxious Eyes: Pupils equal, round and reactive to light. ENT: Pharynx normal. , Neck: C-collar in place, mild pain to palpation over the C-spine, no palpable step-offs CVS: Normal heart rate and rhythm. Pulses normal. Normal S1 and S2 Respiratory: No respiratory distress. Breath sounds normal. No Wheezing. No rales Abdomen: Soft and nontender. No rigidity. No distention. Back: Pain to palpation in lumbar spine Skin: Skin warm and dry. Normal skin color. Normal skin turgor. Extremities: No lower extremity edema. No lower extremity edema. No Lacerations. No Rash Neuro: Oriented X 3. No motor deficit. No sensory deficit. Moving all extermities. No slurred speech. Course Course Course Narrative: pt remains stable. Head CT and neck CT. Also lumbar x-ray pending. Sign-out given to nurse practitioner Albino. This time, anticipating discharge home. Discharge Plan Discharge Clinical Impression: Fall, Concussion, Lumbar back pain Patient Disposition: Home, Self-Care Instructions: Concussion (ED), Acute Low Back Pain (ED) Additional Instructions: Please follow-up with your primary care physician tomorrow. If you have any worsening or new symptoms, please return to the emergency room or call 911 Prescriptions: New acetaminophen 500 mg tablet 500 mg PO QID PRN (Reason: pain) Qty: 20 0RF No Action albuterol sulfate [ProAir HFA] 90 mcg/actuation HFA aerosol inhaler 2 puff inhalation Q6H PRN (Reason: Wheezing) Qty: 1 0RF albuterol sulfate 2.5 mg /3 mL (0.083 %) solution for nebulization 2.5 mg inhalation Q4H PRN (Reason: shortness of breath or wheezing) Qty: 180 0RF meclizine [Dramamine Less Drowsy] 25 mg tablet 25 mg PO TID PRN (Reason: dizziness) Qty: 20 0RF hydrochlorothiazide 12.5 mg tablet 12.5 mg PO DAILY Qty: 30 0RF doxepin 75 mg capsule 75 mg PO BEDTIME 0RF levothyroxine [Levo-T] 75 mcg tablet 75 mcg PO DAILY 0RF topiramate [Topamax] 15 mg capsule, sprinkle 75 mg PO BEDTIME 0RF Adult Multivitamin Gummies 200 mcg tablet,chewable 1 tab PO DAILY 0RF omeprazole 20 mg capsule,delayed release(DR/EC) 20 mg PO DAILY 0RF midodrine 10 mg tablet 5 mg PO TID 0RF Rx Instructions: do not give last dose of day after 6PM or within 4 hrs of bedtime estazolam 1 mg tablet 3 mg PO BEDTIME 0RF Flovent HFA 220 mcg/actuation HFA aerosol inhaler 2 puff inhalation BID 0RF
[2021-03-25] MEDS: Acetaminophen 325 MG TABLET 650 MG PO (15:10)
--- NOTE | 2021-03-25 15:11 | PC.NURSE ---
patient a&ox3, vss, pt c/o 11/24 pain, pt medicated for pain per order, pt was put on bedpan as she needs to urinate but pt states she cant use bedpan and wants to goto the bathroom- pt currently c-spine precautions and has been told she is unable to ambulate until cleared, will continue to monitor.
--- NOTE | 2021-03-25 15:43 | PC.NURSE ---
pt to main radiology for ct scan as ed ct is being worked on
--- NOTE | 2021-03-25 16:01 | PC.NURSE ---
pt returned from ct scan
[2021-03-25 16:16] VITALS: BP 123/73; PULSE 72; RESP 14; TEMP 35.8; O2SAT 100
[2021-03-25 19:14] VITALS: BP 111/58; PULSE 63; RESP 16; TEMP 35.6; O2SAT 100
--- NOTE | 2021-03-25 19:25 | PC.NURSE ---
patient ambulated with assist to bathroom
== END 2021-03-25 20:44 | disposition home or self-care (01) ==
PROVIDERS: Emergency Provider Emergency Medicine; PCP Internal Medicine Geriatric Medicine
DX: S06.0X0A Concussion without loss of consciousness, initial encounter (principal); M54.50 Low back pain, unspecified; G44.309 Post-traumatic headache, unspecified, not intractable; M54.2 Cervicalgia; W01.0XXA Fall on same level from slipping, tripping and stumbling without subsequent striking against object, initial encounter; Y93.9 Activity, unspecified; Y92.9 Unspecified place or not applicable; Y99.9 Unspecified external cause status; Z87.891 Personal history of nicotine dependence; Z79.899 Other long term (current) drug therapy
CPT/HCPCS: 70450; 72100; 72125; 99284

== ENCOUNTER 2021-04-02 11:49 | Outpatient (REF) | payer MEDICAID, SELFPAY ==
--- NOTE | ~2021-04-02 | MM_ITS ---
EXAMINATION: MM SCREENING DIGITAL BREAST TOMOSYNTHESIS, BILATERAL CLINICAL INFORMATION: Screening. Asymptomatic. The lifetime risk of breast cancer based on the Tyrer-Cuzick Model is 4%. COMPARISON: Mammography: 08/01/2019, 02/27/2019, 02/04/2018, 01/05/2017 TECHNIQUE: Digital breast tomosynthesis is performed in both the craniocaudal and mediolateral oblique views along with computer-aided detection (CAD). Synthesized 2D images are generated from the tomosynthesis. FINDINGS: There are scattered areas of fibroglandular density (ACR BI-RADS breast composition Category b). There are no significant masses, abnormal calcifications, or other abnormalities. Stromal markings are similar to previous exams. There are no significant changes. The axilla are unremarkable. MM/MM tomosynthesis screening BI IMPRESSION: No mammographic evidence of malignancy. ASSESSMENT: BI-RADS 1: Negative RECOMMENDATION: Routine annual mammography screening. This patient's information was entered into a reminder system with a target due date for their next mammogram.
== END 2021-04-02 11:50 | disposition home or self-care (01) ==
LOC: HO.MAMMO 11:49
PROVIDERS: PCP Internal Medicine Geriatric Medicine; Visit Provider Internal Medicine Geriatric Medicine
DX: Z12.31 Encounter for screening mammogram for malignant neoplasm of breast (principal)
CPT/HCPCS: 77063; 77067

== ENCOUNTER 2021-04-28 08:28 | Outpatient (REF) | payer MEDICAID, SELFPAY ==
--- NOTE | ~2021-04-28 | US_ITS ---
EXAMINATION: US RETROPERITONEAL LIMITED (RENAL ONLY) CLINICAL INFORMATION: Calculus of kidney. COMPARISON: CT abdomen and pelvis without contrast 06/19/2020. Ultrasound abdomen complete 09/20/2012. TECHNIQUE: Real-time imaging of the kidneys. FINDINGS: RIGHT KIDNEY: 10.5 x 4.8 x 5.6 cm (SAG x AP x TRV). The kidney is normal in size, contour, and echogenicity. Renal cortical thickness is normal. There is a 2 mm echogenic density in the lower pole questionable for a stone. No focal parenchymal lesions or hydronephrosis. LEFT KIDNEY: 10.3 x 5.0 x 4.9 cm (SAG x AP x TRV). The kidney is normal in size, contour, and echogenicity. Renal cortical thickness is normal. There are 2 2 mm echogenic foci in the upper pole questionable for stones. No focal parenchymal lesions or hydronephrosis. US/US renal BI IMPRESSION: Question small bilateral renal stones.
== END 2021-04-28 08:29 | disposition home or self-care (01) ==
LOC: HO.US 08:28
PROVIDERS: PCP Internal Medicine Geriatric Medicine; Visit Provider Urology
DX: N20.0 Calculus of kidney (principal)
CPT/HCPCS: 76775

== ENCOUNTER → 2021-05-15 08:31 | Outpatient (BNVA) | payer MEDICAID, SELFPAY | PROVIDERS: PCP Internal Medicine Geriatric Medicine; Visit Provider Urology | DX: N20.0 Calculus of kidney (principal) | CPT/HCPCS: Q3014 ==

== ENCOUNTER 2021-07-18 09:38 | Outpatient (REF) | payer MEDICAID, SELFPAY ==
--- NOTE | ~2021-07-18 | XR_ITS ---
EXAMINATION: XR LUMBOSACRAL SPINE WITH OBLIQUES CLINICAL INFORMATION: Low back pain. COMPARISON: None. TECHNIQUE: AP, both oblique, and lateral views of the lumbar spine. Lateral view of the lumbosacral junction. FINDINGS: There is normal lumbar lordosis. The vertebral heights, alignment and disc heights are normal. There is no visible acute fracture, dislocation or lytic process seen. There is bilateral mild facet joint arthropathy L3-L4 and L4-L5 disc levels. The paravertebral soft tissues are normal. XR/XR lumbar spine 4V min IMPRESSION: No acute fracture or dislocation seen. There is mild L3-L4, L4-L5 facet joint arthropathy. No lytic process.
[2021-07-18 10:44] LABS: Appearance Urine HAZY; Color Urine YELLOW; Glucose Urine UA NEG (NEG); Leukocyte Esterase Urine NEG (NEG); Nitrite Urine POS (NEG); PH 5.5 (5.0-8.0); Specific Gravity - Urine 1.025 (1.005-1.025); Urine Blood NEG (NEG); Urine Ketones NEG (NEG); Urine Protein NEG (NEG-TRACE)
[2021-07-18 10:58] LABS: Bacteria Urine TRACE /LPF; RBC Urine 0 /HPF (0); Renal Epithelial Cells Urine TRACE /LPF; Squamous Epithelial Cell Urine TRACE /LPF; WBC Urine 0 /HPF (0-4)
== END 2021-07-18 09:39 | disposition home or self-care (01) ==
LOC: HO.XRAY 09:38
PROVIDERS: Absent Provider Internal Medicine Geriatric Medicine; PCP Internal Medicine Geriatric Medicine; Visit Provider Internal Medicine
DX: M54.50 Low back pain, unspecified (principal); R33.9 Retention of urine, unspecified
CPT/HCPCS: 72110; 81001; 87086

== ENCOUNTER 2021-08-26 22:13 | Emergency (ER) | payer MEDICAID, SELFPAY ==
[2021-08-26 22:21] VITALS: BP 132/84; PULSE 96; O2SAT 96
== END 2021-08-27 00:03 | disposition left against medical advice (07) ==
PROVIDERS: Emergency Provider Emergency Medicine
DX: M79.603 Pain in arm, unspecified (principal)

== ENCOUNTER 2021-10-28 11:17 | Emergency (ER) | payer MEDICAID, SELFPAY ==
--- NOTE | ~2021-10-28 | US_ITS ---
EXAMINATION: RIGHT LOWER EXTREMITY DEEP VENOUS ULTRASOUND CLINICAL INFORMATION: Right leg swelling. Numbness. COMPARISON: None. TECHNIQUE: Duplex Doppler imaging with compression maneuvers were performed of the right lower extremity deep venous system. FINDINGS: The visualized common femoral, femoral and popliteal veins demonstrate normal compressibility and color flow without evidence of venous thrombosis. Visualized portions of the calf veins demonstrate normal color fill-in suggesting patency. There is no evidence of a Hamilton's cyst. US/US venous duplex LE RT IMPRESSION: No evidence of deep venous thrombosis involving the right lower extremity.
--- NOTE | ~2021-10-28 | CT_ITS ---
EXAMINATION: CT ABDOMEN AND PELVIS WITH CONTRAST CLINICAL INFORMATION: Right lower quadrant/groin pain COMPARISON: Renal ultrasound 04/28/[address] abdomen pelvis 06/19/2020 TECHNIQUE: Multidetector volumetric images were obtained from the superior aspect of the liver through the pubic symphysis following administration 85 mL of Omnipaque 350 intravenous contrast. Sagittal and coronal reformatted images were obtained on the technologist's workstation. This CT examination was performed using dose optimization techniques as appropriate, variously including the following: *Automated exposure control *Adjustment of mA and/or kV according to patient size (this includes techniques or standardized protocols for targeted exams where dose is matched to indication/reason for exam; i.e. extremities or head) *Use of iterative reconstruction technique DLP: 553 mGy-cm FINDINGS: Visualized lung bases demonstrate some mild lingular atelectasis. The liver demonstrates normal size, contour and attenuation. The gallbladder is surgically absent. Similar prominence of the common bile duct. The pancreas, spleen and right adrenal gland are unremarkable. The left adrenal gland is again not definitively visualized. Symmetrically enhancing kidneys. There is no hydronephrosis of either kidney. Some hypodensities of the left kidney are too small to accurately characterize but statistically cysts. Postsurgical changes of the stomach are again noted. Normal caliber loops of small and large bowel. Mild colonic stool burden. Moderate colonic diverticulosis without CT evidence to suggest active diverticulitis. Normal appendix. Normal caliber abdominal aorta. No retroperitoneal lymphadenopathy. Fatty replacement of the right rectus abdominous musculature. The bladder is decompressed. The uterus is surgically absent. No gross free pelvic fluid. No inguinal lymphadenopathy. Moderate diffuse degenerative changes spine. CT/CT abdomen pelvis w IV con IMPRESSION: -Colonic diverticulosis. No CT evidence to suggest active diverticulitis. -Mild colonic stool burden. Fleischner guidelines were followed.
[2021-10-28 12:13] VITALS: BP 133/78; PULSE 76; RESP 18; TEMP 36.6; O2SAT 98; BMI 30.1
[2021-10-28 13:07] LABS: MANUAL DIFF FLAG NO
[2021-10-28 13:09] LABS: Basophils Absolute Auto 0.1 X10*3/uL (0.0-0.2); Basophils Percent Auto 0.9 % (0-2); Eosinophils Absolute Auto 0.1 X10*3/uL (0.0-0.4); Eosinophils Percent Auto 1.8 % (0-4); Hematocrit 43.2 % (37.0-47.0); Imm Gran Abs Auto 0.02 X10*3/uL (0.00-0.03); Imm Gran Pct Auto 0.3 % (0.0-0.4); Lymphocytes Absolute Auto 2.1 X10*3/uL (1.2-4.9); Lymphocytes Percent Auto 27.5 % (20-40); Mean Corpuscular HGB Conc 32.4 g/dl (31.0-35.0); Mean Corpuscular Hemoglobin 27.1 pg (27.0-33.0); Mean Corpuscular Volume 83.7 fL (80.0-98.0); Mean Platelet Volume 9.5 fL (9.4-12.3); Monocytes Absolute Auto 0.7 X10*3/uL (0.1-1.2); Monocytes Percent Auto 8.8 % (2-11); Neutrophils Absolute Auto 4.7 x10*3/uL (2.0-8.3); Neutrophils Percent Auto 60.7 % (45-73); Platelet Count 295 X10*3/uL (160-400); Red Blood Count 5.16 X10*6/uL (4.20-5.50); Red Cell Distribution Width 14.6 % (11.0-16.0); White Blood Count 7.7 X10*3/uL (4.8-10.8)
[2021-10-28 13:38] LABS: Anion Gap 14 (12-20); Blood Urea Nitrogen 26 mg/dL (9-16); Calcium 9.6 mg/dL (8.4-10.2); Chloride 99 mmol/L (96-108); Creatinine Clr Calc Pharmacy 70.8; Estimated Glomerular Filt Rate > 60; Glucose Random 108 mg/dL (60-115); Potassium 4.1 mmol/L (3.3-5.1); Sodium 141 mmol/L (135-145)
[2021-10-28 13:39] LABS: Carbon Dioxide 32 mmol/L (22-29)
--- NOTE | 2021-10-28 18:14 | ED.GENADULT ---
HPI - General Adult General Chief complaint: General Medical Stated complaint: upper thigh pain/vomiting Time Seen by Provider: 10/28/21 18:12 Source: patient Mode of arrival: ambulatory Limitations: no limitations History of Present Illness HPI narrative: 60-year-old female with a PMHx of pseudotumor cerebri, kidney stones, diverticulosis, pheochromacytoma, BPPV, and GERD who presents with right inguinal pain. The patient reports that she has had significant pain to her right groin area for the past few days, non-radiating. She tells me that the pain has been worsening and when she was at an appointment today and the provider told her that she needed to be evaluated to rule out a femoral hernia. She tells me that she has had difficulty walking due to the pain and that her upper right thigh feels numb. She also reports that she has been feeling constipated and that her stool has been horizontal instead of vertical . She tells me that she has been having some chills but denies known fevers. She also reports that her urine was pink recently and that she was concerned that she may have another kidney stone. She also tells me that she has chronic back pain and right shoulder pain, unchanged from her day to day pain. She denies any chest pain, sob, fevers, abdominal pain, diarrhea, nausea, vomiting, dysuria, saddle anesthesia, or incontinence of urine/stool. No hx of dvt or pe. Related Data Home Medications Medication Instructions Recorded Confirmed doxepin 75 mg capsule 75 mg PO BEDTIME 11/22/19 12/30/20 levothyroxine 75 mcg tablet 75 mcg PO DAILY 11/22/19 12/30/20 (Levo-T) midodrine 10 mg tablet 5 mg PO TID 11/22/19 12/30/20 multivitamin with minerals-folic 1 tab PO DAILY 11/22/19 12/30/20 acid 200 mcg chewable tablet (Adult Multivitamin Gummies) omeprazole 20 mg capsule,delayed 20 mg PO DAILY 11/22/19 12/30/20 release topiramate 15 mg sprinkle capsule 75 mg PO BEDTIME 11/22/19 12/30/20 (Topamax) estazolam 1 mg tablet 3 mg PO BEDTIME 06/06/20 12/30/20 fluticasone propionate 220 2 puff inhalation BID 12/30/20 12/30/20 mcg/actuation HFA aerosol inhaler (Flovent HFA) Previous Rx's Medication Instructions Recorded hydrochlorothiazide 12.5 mg tablet 12.5 mg PO DAILY #30 tabs 12/19/20 meclizine 25 mg tablet (Dramamine 25 mg PO TID PRN dizziness #20 tabs 12/19/20 Less Drowsy) acetaminophen 500 mg tablet 500 mg PO QID PRN pain #20 tabs 03/25/21 cyclobenzaprine 10 mg tablet 10 mg PO TID PRN muscle spasm #7 03/25/21 tabs pyridoxine (vitamin B6) 100 mg 100 mg PO DAILY 90 days #90 tabs 05/15/21 tablet albuterol sulfate 2.5 mg/3 mL 2.5 mg (3 mL) inhalation Q4H PRN 05/27/21 (0.083 %) solution for nebulization for wheezing #150 mL albuterol sulfate 90 mcg/actuation 2 puff PO Q6H PRN for wheezing 05/27/21 aerosol inhaler (ProAir HFA) #8.5 grams cyclobenzaprine 10 mg tablet 10 mg PO BEDTIME PRN muscle spasm 10/28/21 #7 tabs docusate sodium 100 mg capsule 100 mg PO BID #20 caps 10/28/21 (Colace) sennosides 8.6 mg tablet (senna) 8.6 mg PO BEDTIME #14 tabs 10/28/21 Allergies Allergy/AdvReac Type Severity Reaction Status Date / Time Nubain Allergy Severe Anaphylaxis Verified 12/30/20 11:31 Review of Systems Review of Systems: Constitutional : No Weight loss, No Fever, + Chills, No Fatigue, No Malaise ENT/Mouth : No sore throat, No Rhinorrhea Eyes: No Eye Pain, No Swelling, No Redness Cardiovascular : No Chest Pain, No SOB, No Dyspnea on Exertion, No Orthopnea, No Edema, No Palpitations Respiratory : No Cough, No Sputum, No Wheezing Gastrointestinal : No Nausea, No Vomiting, No Diarrhea, + Constipation, No abdominal Pain, No Hematochezia, No Melena Genitourinary : No Dysuria, No Urinary Frequency, + Hematuria, Musculoskeletal : + joint pain, + Myalgias, No Joint Swelling Skin : No Skin Lesions, No rash Neuro : No Weakness, No Numbness, No Dizziness, No Headache Endocrine : No Polyuria, No Polydipsia All other systems reviewed and are negative Yes all other systems are reviewed and are negative [facility] Past Medical History Attestation statement: The following information was validated with the patient. Source: old records reviewed and nursing notes reviewed Medical History Acid reflux Bronchial asthma Colon polyp COVID-19 vaccine administered Crystal arthropathy Diverticulosis of colon Kidney calculi Kidney tumor Pseudotumor cerebri Right shoulder injury Thyroid disease Surgical History History of esophagogastroduodenoscopy (EGD) History of hysterectomy History of surgery on wrist Hx laparoscopic cholecystectomy Hx of colonoscopy Hx of gastric bypass Previous section Family History Family History Father No problems noted. Mother No problems noted. Social History Social History Household Members: None Household Members Other:: alone Are you a primary daycare worker to a significant other at home: No Do you presently have visiting nurse or other home services: No Alcohol intake: former Patient Tobacco Use Status: Former Tobacco user Advance Directives: No Advance Directives Information Provided: Yes Current occupational status: disabled Physical Exam ED Vital Signs: Vital Signs - 24 hr 10/28/21 12:13 10/28/21 19:07 10/28/21 21:45 Temperature 97.9 F 98.8 F 97.9 F Pulse Rate 76 72 59 Respiratory Rate 18 18 18 Blood Pressure 133/78 113/61 125/71 Pulse Oximetry 98 100 98 Oxygen Delivery Method Room Air Room Air Room Air 10/28/21 23:17 Temperature Pulse Rate Respiratory Rate 18 Blood Pressure Pulse Oximetry Oxygen Delivery Method BMI result Body Mass Index 30.1 VSS Appearance: Alert.? Oriented X3.? No acute distress.? Head: Normocephalic, atraumatic, no step-offs or deformities Eyes: Pupils equal, round and reactive to light.? Neck: Normal inspection.? Neck supple.? CVS: Normal heart rate and rhythm.? Pulses normal.? Respiratory: No respiratory distress.? Breath sounds normal.? Abdomen: Soft and nontender. +BS Skin: Skin warm and dry.? Normal skin color.? Normal skin turgor.? Extremities: No lower extremity edema.? No calf ttp. No deformities of the extremities, no palpable masses/lumps in the inguinal region. Mild tenderness to palpation over the right inguinal region. 5/5 strength to bilateral upper and lower extremities. Brace in place to the right knee. FROM of bilateral lower extremities. Observed to be ambulatory without difficulty. 2+ DP,AP,PT pulses equal and b/l. Warm lower extremities. 2+ DTR b/l to patellar region Back: No midline tenderness, no C-spine tenderness, full range of motion, no CVA tenderness bilaterally. Neuro: Oriented X 3.? No motor deficit.? No sensory deficit. CN 2-12 intact. No saddle anesthesia. Course Reevaluation(s) Reevaluation #1: CBC and chemistry within normal limits sightly elevated bUN likely dehydration will give fluids . Pending CT abdomen/pelvis Time: 18:38 Reevaluation #2: Constipation is noted on CT and diverticulosis no signs of acute diverticulitis. US venous of RLE, negative. UA pending Time: 22:16 Reevaluation #3: UA positive for 1+ leukocytes, otherwise negative. Patient reporting persistent pain, will give a dose of Toradol, plan to discharge on cyclobenzaprine. Time: 22:46 Additional Reevaluation(s): 1132 Patient continues to ambulate around the department, tolerating p.o., eating food and drinking fluids. Patient is feeling better. At this time patient will be discharged home advised to follow-up with her PCP or return with any new or worsening symptoms. Medical Decision Making [facility] Narrative Medical decision making narrative: 18:30 60 y/o F presenting with right inguinal pain. Sent in by PCP for r/o femoral hernia PE remarkable for mild TTP in the right inguinal region. No palpable masses. No midline back tenderness. No signs of acute abdomen. Plan to obtain basic labs, CT abdomen/pelvis. Suspect musculoskeletal pain or small femoral hernia. Less likely acute abdominal process. Unlikely cauda equina, epidural abscess, torsion, arterial occlusion based on H&P. Medical Records Medical records reviewed: Yes I reviewed the patient's medical records. Lab Data Lab results reviewed: Yes I reviewed the patient's lab results. Result diagrams: 10/28/21 13:03 10/28/21 13:03 Labs: Lab Results 10/28/21 10/28/21 10/28/21 Range/Units 13:03 13:03 22:26 WBC 7.7 (4.8-10.8) X10*3/uL RBC 5.16 (4.20-5.50) X10*6/uL Hgb 14.0 (12.0-16.0) g/dl Hct 43.2 (37.0-47.0) % MCV 83.7 (80.0-98.0) fL MCH 27.1 (27.0-33.0) pg MCHC 32.4 (31.0-35.0) g/dl RDW 14.6 (11.0-16.0) % Plt Count 295 (160-400) X10*3/uL MPV 9.5 (9.4-12.3) fL Immature Gran % (Auto) 0.3 (0.0-0.4) % Neut % (Auto) 60.7 (45-73) % Lymph % (Auto) 27.5 (20-40) % Moody % (Auto) 8.8 (2-11) % Eos % (Auto) 1.8 (0-4) % Baso % (Auto) 0.9 (0-2) % Lymph # (Auto) 2.1 (1.2-4.9) X10*3/uL Moody # (Auto) 0.7 (0.1-1.2) X10*3/uL Eos # (Auto) 0.1 (0.0-0.4) X10*3/uL Baso # (Auto) 0.1 (0.0-0.2) X10*3/uL Abs Immat Gran (auto) 0.02 (0.00-0.03) X10*3/uL Absolute Neuts (auto) 4.7 (2.0-8.3) x10*3/uL Absolute Nucleated RBC 0.000 (0.0-0.012) X10*3/uL Nucleated RBC % (auto) 0.0 (0.0-0.2) /100WBC Sodium 141 (135-145) mmol/L Potassium 4.1 (3.3-5.1) mmol/L Chloride 99 (96-108) mmol/L Carbon Dioxide 32 H (22-29) mmol/L Anion Gap 14 (12-20) BUN 26 H (9-16) mg/dL Creatinine 0.81 (0.5-1.4) mg/dL Estim Creat Clear Calc 70.8 Estimated GFR > 60 Random Glucose 108 (60-115) mg/dL Calcium 9.6 D (8.4-10.2) mg/dL Total Bilirubin 0.3 (0.0-1.0) mg/dL Direct Bilirubin < 0.2 (0.0-0.5) mg/dL AST 27 D (5-31) U/L ALT 33 H (0-31) U/L Alkaline Phosphatase 72 (39-117) U/L Total Protein 7.3 (6.5-8.0) g/dL Albumin 4.1 (3.5-5.0) g/dL Urine Color Yellow Urine Appearance Clear Urine pH 5.5 (5.0-9.0) Ur Specific [place] 1.015 (1.005-1.025) Urine Protein Negative (Neg-Trace) mg/dL Urine Glucose (UA) Negative (Negative) mg/dL Urine Ketones Negative (Negative) mg/dL Urine Blood Negative (Negative) Urine Nitrite Negative (Negative) Ur Leukocyte Esterase Small (1+) H (Negative) Urine RBC 3-5 H (0-2) /HPF Urine WBC 0-5 (0-5) /HPF Ur Squamous Epith Cells 0-2 (0-2) /HPF Urine Bacteria None Seen (None Seen) Hyaline Casts 0-2 (0-2) /LPF Critical Care Time Critical Care Time Critical Care Time: No Discharge Plan Discharge Clinical Impression: Groin pain, Constipation Patient Disposition: Home, Self-Care Instructions: Heat Pack Application (ED), Groin Pain (ED) Additional Instructions: Take your medications as prescribed. If you were prescribed antibiotics today, it is important that you take your medication to their entirety, do not skip any doses, do not finish them early. Follow-up with your primary care provider this week. Return to the emergency department with new or worsening symptoms. Such as fevers, chills, chest pain, shortness of breath, nausea, vomiting, dizziness, headache, vision changes, lethargy In case of emergency call 911 This may be musculoskeletal in nature, please take cyclobenzaprine a muscle relaxer, take at night as this can cause drowsiness, please do not drive or operate machinery while taking this. US/US venous duplex LE RT IMPRESSION: No evidence of deep venous thrombosis involving the right lower extremity. CT/CT abdomen pelvis w IV con IMPRESSION: -Colonic diverticulosis. No CT evidence to suggest active diverticulitis. -Mild colonic stool burden.? ? Fleischner guidelines were followed. Prescriptions: New cyclobenzaprine 10 mg tablet 10 mg PO BEDTIME PRN (Reason: muscle spasm) Qty: 7 0RF sennosides [senna] 8.6 mg tablet 8.6 mg PO BEDTIME Qty: 14 0RF docusate sodium [Colace] 100 mg capsule 100 mg PO BID Qty: 20 0RF No Action albuterol sulfate [ProAir HFA] 90 mcg/actuation HFA aerosol inhaler 2 puff PO Q6H PRN (Reason: for wheezing) Qty: 8.5 0RF albuterol sulfate 2.5 mg /3 mL (0.083 %) solution for nebulization 2.5 mg inhalation Q4H PRN (Reason: for wheezing) Qty: 150 0RF meclizine [Dramamine Less Drowsy] 25 mg tablet 25 mg PO TID PRN (Reason: dizziness) Qty: 20 0RF hydrochlorothiazide 12.5 mg tablet 12.5 mg PO DAILY Qty: 30 0RF acetaminophen 500 mg tablet 500 mg PO QID PRN (Reason: pain) Qty: 20 0RF cyclobenzaprine 10 mg tablet 10 mg PO TID PRN (Reason: muscle spasm) Qty: 7 0RF doxepin 75 mg capsule 75 mg PO BEDTIME levothyroxine [Levo-T] 75 mcg tablet 75 mcg PO DAILY topiramate [Topamax] 15 mg capsule, sprinkle 75 mg PO BEDTIME Adult Multivitamin Gummies 200 mcg tablet,chewable 1 tab PO DAILY omeprazole 20 mg capsule,delayed release(DR/EC) 20 mg PO DAILY midodrine 10 mg tablet 5 mg PO TID Rx Instructions: do not give last dose of day after 6PM or within 4 hrs of bedtime estazolam 1 mg tablet 3 mg PO BEDTIME Flovent HFA 220 mcg/actuation HFA aerosol inhaler 2 puff inhalation BID pyridoxine (vitamin B6) 100 mg tablet 100 mg PO DAILY 90 Days Qty: 90 3RF Referrals: Name,MD Gregg [Primary Care Provider] - 2 days Stand Alone Forms: Work/School Release
[2021-10-28 18:33] LABS: Alanine Aminotransferase 33 U/L (0-31); Albumin Level 4.1 g/dL (3.5-5.0); Alkaline Phosphatase 72 U/L (39-117); Aspartate Amino Transferase 27 U/L (5-31); Bilirubin Direct < 0.2 mg/dL (0.0-0.5); Bilirubin Total 0.3 mg/dL (0.0-1.0); Total Protein 7.3 g/dL (6.5-8.0)
[2021-10-28 19:07] VITALS: BP 113/61; PULSE 72; RESP 18; TEMP 37.1; O2SAT 100
[2021-10-28] MEDS: iohexoL 350 MG/ML 100 ML INFUS..BTL IV (19:23)
[2021-10-28 21:45] VITALS: BP 125/71; PULSE 59; RESP 18; TEMP 36.6; O2SAT 98
[2021-10-28 22:33] LABS: Appearance Urine Clear; Color Urine Yellow; Glucose Urine UA Negative (Negative); Leukocyte Esterase Urine Small (1+) (Negative); Nitrite Urine Negative (Negative); PH 5.5 (5.0-9.0); Specific Gravity - Urine 1.015 (1.005-1.025); UMIC TRIGGER UACC YES; Urine Blood Negative (Negative); Urine Ketones Negative (Negative); Urine Protein Negative (Neg-Trace)
[2021-10-28 22:51] LABS: Bacteria Urine None Seen (None Seen); Hyaline Casts Urine 0-2 /LPF (0-2); Squamous Epithelial Cell Urine 0-2 /HPF (0-2); UACC Culture Trigger YES; WBC Urine 0-5 /HPF (0-5)
[2021-10-28 23:17] VITALS: RESP 18
[2021-10-28] MEDS: 0.9 % Sodium Chloride 1,000 ML 999 ML IV (23:17)
[2021-10-28] MEDS: Morphine Sulfate 4 MG/ML CARTRIDGE IVPUSH (23:17)
[2021-10-29 00:09] VITALS: BP 99/54; PULSE 66; RESP 14; O2SAT 100
== END 2021-10-29 00:37 | disposition home or self-care (01) ==
PROVIDERS: Physician Assistant; Emergency Provider Emergency Medicine; PCP Internal Medicine Geriatric Medicine
DX: R10.31 Right lower quadrant pain (principal); K59.00 Constipation, unspecified; Z90.49 Acquired absence of other specified parts of digestive tract; Z90.710 Acquired absence of both cervix and uterus; Z98.84 Bariatric surgery status; Z87.891 Personal history of nicotine dependence; Z79.899 Other long term (current) drug therapy
CPT/HCPCS: 36415; 74177; 80048; 80076; 81001; 85025; 87086; 93971; 96374; 99284; J2270; Q9967

== ENCOUNTER → 2021-11-11 11:01 | Outpatient (BNVA) | payer MEDICAID, SELFPAY | PROVIDERS: PCP Internal Medicine Geriatric Medicine; Visit Provider Surgery | DX: S76.212A Strain of adductor muscle, fascia and tendon of left thigh, initial encounter (principal); Z98.84 Bariatric surgery status | CPT/HCPCS: 99202 ==

== ENCOUNTER 2022-04-09 11:59 | Outpatient (REF) | payer MEDICAID, SELFPAY ==
--- NOTE | ~2022-04-09 | MM_ITS ---
EXAMINATION: MM SCREENING DIGITAL BREAST TOMOSYNTHESIS, BILATERAL CLINICAL INFORMATION: Screening. Asymptomatic. The lifetime risk of breast cancer based on the Tyrer-Cuzick Model is 4%. COMPARISON: Mammography: 04/02/2021, 08/01/2019, 02/27/2019, 02/04/2018 TECHNIQUE: Digital breast tomosynthesis is performed in both the craniocaudal and mediolateral oblique views along with computer-aided detection (CAD). Synthesized 2D images are generated from the tomosynthesis. FINDINGS: There are scattered areas of fibroglandular density (ACR BI-RADS breast composition Category b). There are no significant masses, abnormal calcifications, or other abnormalities. Parenchymal pattern is similar to prior studies. There is no developing density or architectural abnormality. The axilla and skin contours are unremarkable. No significant changes. MM/MM tomosynthesis screening BI IMPRESSION: No mammographic evidence of malignancy. ASSESSMENT: BI-RADS 1: Negative RECOMMENDATION: Routine annual mammography screening. This patient's information was entered into a reminder system with a target due date for their next mammogram.
--- NOTE | ~2022-04-09 | MM_ITS ---
EXAMINATION: BONE DENSITOMETRY CLINICAL INDICATION: Osteoporosis. COMPARISON: Baseline BD dated 04/02/2020. TECHNIQUE: Using a SingleHop DXA System (software version: 13.1) manufactured by [employer], dual-energy x-ray absorptiometry was performed of the lumbar spine and left hip. The images are of good technical quality. Summary results are attached. FINDINGS: AP SPINE L1-L2 (excluding L3 and L4): The data of L1-L4 has been changed to exclude the L3 and L4 vertebral bodies, because degenerative changes at these levels may cause overestimation of lumbar spine density. Current: BMD 1.114 g/cm2, Z-score 0.6, T-score -0.4, normal, 6.5% increase from baseline (<5% change is not significant). Baseline: BMD 1.046 g/cm2. LEFT FEMUR, NECK: Current: BMD 0.665 g/cm2, Z-score -1.6, T-score -2.7, osteoporosis. Baseline: BMD 0.655 g/cm2. LEFT FEMUR, TOTAL: Current: BMD 0.760 g/cm2, Z-score -1.2, T-score -2.0, osteopenia, 0.1% increase from baseline (<5% change is not significant). Baseline: BMD 0.759 g/cm2. IDENTIFIED RISK FACTORS: Early menopause, history of fracture (adult), bilateral oophorectomy, hysterectomy, osteoporosis, secondary osteoporosis. HISTORY OF FRACTURE: Wrist. MEDICATIONS: Calcium, vitamin D. MM/XR DEXA axial skeleton IMPRESSION: 1. DIAGNOSIS: Osteoporosis based on the lowest T-score value of -2.7 in the femoral neck pplying World Health Organization criteria. 2. 10-YEAR FRACTURE RISK PREDICTION, FRAX: According to the guidelines, FRAX calculation should only be performed on patients in the osteopenia bone density category. Therefore, FRAX was not performed on this patient. 3. Treatment Recommendations: NOF guidelines recommend consideration for treatment in postmenopausal women and men age 50 and older presenting with the following: -A hip or vertebral (clinical or morphometric) fracture. -T-score less than or equal to -2.5 at the femoral neck or spine after appropriate evaluation to exclude secondary causes. -Low bone mass at the hip or spine and a 10-year fracture probability by FRAX of greater than or equal to 3% for hip fracture or greater than or equal to 20% for major osteoporotic fracture based on the [place] adapted WHO algorithm. 4. Other Recommendations: All treatment decisions require clinical judgment and consideration of individual patient factors, including patient preferences, comorbidities, previous drug use, risk factors not captured in the FRAX model (e.g. frailty, falls, vitamin D deficiency, increased bone turnover, interval significant decline in bone density) and possible under or overestimation of fracture risk by FRAX. Additional medical evaluation for secondary cause of low bone mineral density may be appropriate. FUTURE SCAN RECOMMENDATION: People with diagnosed cases of osteoporosis or at high risk for fracture should have regular bone mineral density tests. For patients eligible for Medicare, routine testing is allowed once every 2 years. The testing frequency can be increased to one year for patients who have rapidly progressing disease, those who are receiving or discontinuing medical therapy to restore bone mass, or have additional risk factors.
== END 2022-04-09 12:00 | disposition home or self-care (01) ==
LOC: HO.MAMMO 11:59
PROVIDERS: PCP Internal Medicine Geriatric Medicine; Visit Provider Internal Medicine Geriatric Medicine
DX: Z12.31 Encounter for screening mammogram for malignant neoplasm of breast (principal); Z13.820 Encounter for screening for osteoporosis; Z78.0 Asymptomatic menopausal state
CPT/HCPCS: 77063; 77067; 77080

== ENCOUNTER 2022-05-07 11:12 | Emergency (ER) | payer MEDICAID, SELFPAY ==
--- NOTE | ~2022-05-07 | MR_ITS ---
EXAMINATION: MR BRAIN WITHOUT CONTRAST CLINICAL INFORMATION: Right-sided weakness and numbness, headache COMPARISON: Same day CTA head and neck TECHNIQUE: Multiplanar multisequence MR imaging of the brain was obtained without intravenous contrast. FINDINGS: There is no acute infarct on diffusion-weighted imaging. There is no intracranial hemorrhage on iron-sensitive imaging. No extra-axial collection or mass effect/herniation. There are several scattered foci of nonspecific supratentorial white matter T2/FLAIR signal abnormality. No hydrocephalus. The ventricles are normal in morphology and size. The major flow voids at the skull base are preserved. The midline structures are normal. The cerebellar tonsils are normally positioned. The craniocervical junction is normal. Marrow signal is within normal limits. The visualized soft tissues are without significant abnormality. Mild right maxillary sinus mucosal thickening. MR/MR head/brain wo con IMPRESSION: 1. No acute infarct or other acute intracranial abnormality 2. Few nonspecific foci of supratentorial white matter FLAIR signal abnormality, most likely related to chronic microvascular ischemia
--- NOTE | ~2022-05-07 | CT_ITS ---
CT ANGIOGRAM NECK WITH CONTRAST CT ANGIOGRAM BRAIN WITH CONTRAST CLINICAL INFORMATION: Right lower extremity numbness. Right-sided headache. COMPARISON: CT head March 25, 2021. TECHNIQUE: Test bolus sequences followed by intravenous administration 70 mL of Omnipaque 350. Helical imaging was performed in the axial plane from the thoracic inlet to the skull vertex. Delayed postcontrast imaging of the head was also performed. The data was processed at the eeg technologist workstation for generation of MIP sequences. Angled MIPs and volume rendered reformatted images were also generated at an offline 3D workstation under concurrent supervision. Stenoses are assessed in accordance with NASCET criteria unless otherwise indicated. This CT examination was performed using dose optimization techniques as appropriate, variously including the following: *Automated exposure control *Adjustment of mA and/or kV according to patient size (this includes techniques or standardized protocols for targeted exams where dose is matched to indication/reason for exam; i.e. extremities or head) *Use of iterative reconstruction technique FINDINGS: BRAIN: [There is no intracranial hemorrhage, hydrocephalus, extra-axial surface collection, midline shift, or other herniation pattern. Saunders to white matter differentiation is diffusely maintained without evidence of an evolved acute territorial infarct. The basilar cisterns are preserved. No significant soft tissue abnormality. No acute osseous abnormality. The paranasal sinuses and the mastoid air cells are well aerated.] CERVICAL SOFT TISSUES AND LUNG APICES: There is multilevel cervical spondylosis. NECK CTA: [There is a classic 3 vessel configuration of the aortic arch. Proximal arch vessels are non-stenotic. The vertebral arteries are codominant. No significant ostial stenosis is visualized on either side. Both vertebral arteries are widely patent throughout their extracranial cervical course. Both common and internal carotid arteries are normal in course and caliber.] BRAIN CTA: Atherosclerotic calcification throughout the carotid siphons bilaterally without significant stenosis. No focal flow-limiting stenosis nor discrete proximal large artery occlusion. No aneurysm. Timing of the contrast bolus allows assessment of the major dural venous sinuses, which all opacify normally] CT/CT angio head neck IMPRESSION: No acute intracranial findings. No significant arterial stenoses nor acute arterial occlusions within the head or neck.
[2022-05-07 11:16] VITALS: BP 140/80; PULSE 94; O2SAT 98
[2022-05-07 11:20] VITALS: BP 105/61; PULSE 76; RESP 16; TEMP 36.7; O2SAT 98
[2022-05-07 11:43] VITALS: BMI 30.8
--- NOTE | 2022-05-07 11:54 | ECG_ITS ---
Test Reason : weakness Blood Pressure : / mmHG Vent. Rate : 065 BPM Atrial Rate : 065 BPM P-R Int : 156 ms QRS Dur : 074 ms QT Int : 390 ms P-R-T Axes : 045 010 016 degrees QTc Int : 405 ms Normal sinus rhythm with sinus arrhythmia Low voltage QRS Borderline ECG When compared with ECG of 19-DEC-2020 12:14, No significant change was found Referred By: Yudelka Wise Electronically Signed By:KARRI JIMENEZ MD
--- NOTE | 2022-05-07 11:58 | ED_ITS ---
HPI - General Adult General Chief complaint: General Medical <YARI Capellan - Last Filed: 05/07/22 17:44> Stated complaint: LAZAR X4 DAYS,BLURR VISION TODAY PER EMS <YARI Capellan - Last Filed: 05/07/22 17:44> Time Seen by Provider: 05/07/22 11:41 <YARI Capellan - Last Filed: 05/07/22 17:44> Source: patient <YARI Capellan Last Filed: 05/07/22 17:44> Mode of arrival: ambulatory <YARI Capellan Last Filed: 05/07/22 17:44> Limitations: no limitations <YARI Capellan Last Filed: 05/07/22 17:44> History of Present Illness HPI narrative: 61 yo female with history of asthma, migraines, vertigo, GERD, pseudotumor cerebri, hypothyroidism, obesity s/p gastric bypass, orthostatic hypotension w/ recurrent falls who presents to the ER from home for evaluation of intermittent, severe, sharp right sided head pains that started 3 days ago when she was at home. She states when it 1st happened she had a severe cramp in her RLE, her toes curled up and she couldn't walk. Pains went away but patient reports RLE numbness & heaviness since then. She also feels generally weak. She has been having recurring, brief, sharp, throbbing pains in the right side of her head that are much different than her usual headaches. She also reports intermittent blurred vision and seeing stars when she has the severe pain in the head. It lasts seconds and goes away. No chest pain, SOB, N/V/D, abdominal pain. <YARI Capellan - Last Filed: 05/07/22 17:44> MD complaint: intermittent right sided head pain, RLE numbness <YARI Capellan Last Filed: 05/07/22 17:44> Onset (ago): day(s) (3) <YARI Capellan Last Filed: 05/07/22 17:44> Location: head, right and lower extremity <YARI Capellan Last Filed: 05/07/22 17:44> Severity: severe <YARI Capellan - Last Filed: 05/07/22 17:44> Severity scale (1-10): 10 <YARI Capellan - Last Filed: 05/07/22 17:44> Quality: stabbing and sharp <YARI Capellan - Last Filed: 05/07/22 17:44> Pain Consistency: intermittent <YARI Capellan - Last Filed: 05/07/22 17:44> Relieving factors: none <YARI Capellan - Last Filed: 05/07/22 17:44> Exacerbating factors: none <YARI Capellan - Last Filed: 05/07/22 17:44> Associated symptoms: weakness <YARI Capellan - Last Filed: 05/07/22 17:44> Treatments prior to arrival: none <YARI Capellan - Last Filed: 05/07/22 17:44> Related Data Home medications: Home Medications Medication Instructions Recorded Confirmed doxepin 75 mg capsule 75 mg PO BEDTIME 11/22/19 11/11/21 levothyroxine 75 mcg tablet 75 mcg PO DAILY 11/22/19 11/11/21 (Levo-T) midodrine 10 mg tablet 5 mg PO TID 11/22/19 11/11/21 multivitamin with minerals-folic 1 tab PO DAILY 11/22/19 11/11/21 acid 200 mcg chewable tablet (Adult Multivitamin Gummies) omeprazole 20 mg capsule,delayed 20 mg PO DAILY 11/22/19 11/11/21 release estazolam 1 mg tablet 3 mg PO BEDTIME 06/06/20 11/11/21 fluticasone propionate 220 2 puff inhalation BID 12/30/20 11/11/21 mcg/actuation HFA aerosol inhaler (Flovent HFA) Previous Rx's Medication Instructions Recorded hydrochlorothiazide 12.5 mg tablet 12.5 mg PO DAILY #30 tabs 12/19/20 meclizine 25 mg tablet (Dramamine 25 mg PO TID PRN dizziness #20 tabs 12/19/20 Less Drowsy) acetaminophen 500 mg tablet 500 mg PO QID PRN pain #20 tabs 03/25/21 cyclobenzaprine 10 mg tablet 10 mg PO TID PRN muscle spasm #7 03/25/21 tabs pyridoxine (vitamin B6) 100 mg 100 mg PO DAILY 90 days #90 tabs 05/15/21 tablet albuterol sulfate 2.5 mg/3 mL 2.5 mg (3 mL) inhalation Q4H PRN 05/27/21 (0.083 %) solution for nebulization for wheezing #150 mL cyclobenzaprine 10 mg tablet 10 mg PO BEDTIME PRN muscle spasm 10/28/21 #7 tabs docusate sodium 100 mg capsule 100 mg PO BID #20 caps 10/28/21 (Colace) sennosides 8.6 mg tablet (senna) 8.6 mg PO BEDTIME #14 tabs 10/28/21 albuterol sulfate 90 mcg/actuation 2 puff PO Q6H PRN for wheezing 11/19/21 aerosol inhaler (ProAir HFA) #8.5 grams prednisone 20 mg tablet 40 mg PO DAILY 5 days #10 tabs 05/08/22 <YARI Capellan - Last Filed: 05/07/22 17:44> Allergies/adverse reactions: Allergies Allergy/AdvReac Type Severity Reaction Status Date / Time nalbuphine [From Nubain] Allergy Severe Anaphylaxis Verified 03/18/22 10:01 <YARI Capellan - Last Filed: 05/07/22 17:44> Review of Systems Review of Systems: Yes all other systems are reviewed and are negative <YARI Capellan - Last Filed: 05/07/22 17:44> [facility] Past Medical History Medical History: Medical History Acid reflux Bronchial asthma Colon polyp COVID-19 vaccine administered Crystal arthropathy Diverticulosis of colon Kidney calculi Kidney tumor Pseudotumor cerebri Right shoulder injury Thyroid disease <YARI Capellan - Last Filed: 05/07/22 17:44> Surgical History: Surgical History History of esophagogastroduodenoscopy (EGD) History of hysterectomy History of surgery on wrist Hx laparoscopic cholecystectomy Hx of colonoscopy Hx of gastric bypass Previous section <YARI Capellan - Last Filed: 05/07/22 17:44> Family History Family History: Family History Father No problems noted. Mother No problems noted. <YARI Capellan - Last Filed: 05/07/22 17:44> Social History Social History: Social History Household Members: None Household Members Other:: alone Are you a primary transitional care liaison to a significant other at home: No Do you presently have visiting nurse or other home services: No Alcohol intake: former Patient Tobacco Use Status: Former Tobacco user Smoked in Last 30 Days: No Use of substances other than those prescribed or required for medical reasons: No Advance Directives: No Advance Directives Information Provided: Yes Patient : No Current occupational status: disabled <YARI Capellan - Last Filed: 05/07/22 17:44> Physical Exam ED Vital Signs: Vital Signs - 24 hr 05/07/22 11:20 05/07/22 12:32 05/07/22 12:32 Temperature 98.1 F Pulse Rate 76 63 67 Respiratory Rate 16 Blood Pressure 105/61 112/60 123/73 Pulse Oximetry 98 Oxygen Delivery Method Room Air 05/07/22 12:35 05/07/22 15:21 05/07/22 21:13 Temperature 97.9 F 98.7 F Pulse Rate 73 64 73 Respiratory Rate 19 16 Blood Pressure 129/79 117/66 112/86 Pulse Oximetry 97 99 Oxygen Delivery Method Room Air Room Air BMI result Body Mass Index 30.8 <YARI Capellan - Last Filed: 05/07/22 17:44> Vital Signs - 24 hr 05/07/22 11:20 05/07/22 12:32 05/07/22 12:32 Temperature 98.1 F Pulse Rate 76 63 67 Respiratory Rate 16 Blood Pressure 105/61 112/60 123/73 Pulse Oximetry 98 Oxygen Delivery Method Room Air 05/07/22 12:35 05/07/22 15:21 05/07/22 21:13 Temperature 97.9 F 98.7 F Pulse Rate 73 64 73 Respiratory Rate 19 16 Blood Pressure 129/79 117/66 112/86 Pulse Oximetry 97 99 Oxygen Delivery Method Room Air Room Air BMI result Body Mass Index 30.8 <Candida Posada NP - Last Filed: 05/08/22 00:04> Appearance: Alert. Oriented X3. No acute distress. Eyes: Pupils equal, round and reactive to light. ENT: Pharynx normal. Neck: Normal inspection. Neck supple. CVS: Normal heart rate and rhythm. Pulses normal. Respiratory: No respiratory distress. Breath sounds normal. Abdomen: Soft and nontender. +BS x4 Skin: Skin warm and dry. Normal skin color. Normal skin turgor. No rashes. Extremities: No lower extremity edema. Neuro: Oriented X 3. Normal speech and cognition. CN II-XII intact, asymmetric smile w/ slight right sided facial droop at the mouth. able to raise eyebrows equally. Bilateral UE 4/5 strength, normal sensation. Lower extremities with 4/5 strength, subjective sensory deficits of the RLE. Negative pronator drift but has some difficulty abducting the right upper extremity due to right shoulder pain/rotator cuff injury. Slow but steady gait with antalgic gait due to chronic right knee pain. <YARI Capellan - Last Filed: 05/07/22 17:44> NIH Stroke Scale Internal: Initial- Upon Arrival <YARI Capellan - Last Filed: 05/07/22 17:44> Time: 12:12 <YARI Capellan - Last Filed: 05/07/22 17:44> Level of Consciousness: Alert <YARI Capellan - Last Filed: 05/07/22 17:44> Level of Consciousness Questions: Answers both questions correctly <YARI Capellan Last Filed: 05/07/22 17:44> Level of Consciousness Commands: Performs both tasks correctly <YARI Capellan Last Filed: 05/07/22 17:44> Best Gaze: Normal <YARI Capellan Last Filed: 05/07/22 17:44> Visual: No visual loss <YARI Capellan Last Filed: 05/07/22 17:44> Facial Palsy: Minor paralyis <YARI Capellan Last Filed: 05/07/22 17:44> Motor Arm (Right): Some effort against gravity <YARI Capellan Last Filed: 05/07/22 17:44> Motor Arm (Left): No drift <Yudelka Wise PA - Last Filed: 05/07/22 17:44> Motor Leg (Right): Some effort against gravity <Yudelka Wise PA - Last Filed: 05/07/22 17:44> Motor Leg (Left): No drift <Yudelka Wise PA - Last Filed: 05/07/22 17:44> Limb Ataxia: Absent <Yudelka Wise PA - Last Filed: 05/07/22 17:44> Sensory: Mild to moderate sensory loss <Yudelka Wise PA - Last Filed: 05/07/22 17:44> Best Language: No aphasia <Yudelka Wise PA - Last Filed: 05/07/22 17:44> Dysarthia: Normal <Yudelka Wise PA - Last Filed: 05/07/22 17:44> Extinction and Inattention: No abnormality <YARI Capellan - Last Filed: 05/07/22 17:44> Score: 6 <YARI Capellan - Last Filed: 05/07/22 17:44> 6 <Candida Posada NP - Last Filed: 05/08/22 00:04> Course Reevaluation(s) Reevaluation #1: CTA head/neck unremarkable. reports ongoing RLE numbness/tingling & heaviness as well as some numbness on the right arm. c/o pain in the right arm due to chronic rotator cuff injury, limited mobility and ROM. MRI ordered. Karmen quality control coordinator updated. Patient reports having a mini stroke in 2002 in [place]. she is not on aspirin/plavix <Yudelka Wise PA - Last Filed: 05/07/22 17:44> CTA head/neck unremarkable. reports ongoing RLE numbness/tingling & heaviness as well as some numbness on the right arm. c/o pain in the right arm due to chronic rotator cuff injury, limited mobility and ROM. MRI ordered. Karmen quality control coordinator updated. Patient reports having a mini stroke in 2002 in [place]. she is not on aspirin/plavix 20:41 MRI results still pending. MR results are negative for acute finding. Indicates the incidental finding of a T2 FLAIR finding, will have patient follow-up with her neurologist. Patient states to have 2 neurologists, 1 at [facility], she did not mention where the other 1 was. She also reports episodes of purpura to her extremities over the past year. Referred to Dr. Ackerman. Patient required multiple redirections to stay on task with instructions. <Candida Posada NP - Last Filed: 05/08/22 00:04> Time: 15:15 <YARI Capellan - Last Filed: 05/07/22 17:44> Reevaluation #2: Patient complaining of a intermittent sharp right sided headache, now resolved. She is nervous and anxious for MRI. She wants to eat. She was given 1 dose of oral Ativan for MRI completion along with a gram of Tylenol for headache. RLE symptoms persist. <YARI Capellan - Last Filed: 05/07/22 17:44> Time: 17:22 <YARI Capellan - Last Filed: 05/07/22 17:44> Reevaluation #3: Signed out to Candida DELAROSA who will f/u MRI result. <YARI Capellan - Last Filed: 05/07/22 17:44> Medications Administered Discontinued Medications Generic Name Dose Route Start Last Admin Trade Name Freq PRN Reason Stop Dose Admin Acetaminophen 975 mg 05/07/22 16:54 05/07/22 17:19 Acetaminophen 325 Mg Tablet PO 05/07/22 16:55 975 mg ONCE ONE Administration Iohexol 100 ml 05/07/22 13:20 05/07/22 13:21 Iohexol 350 Mg/Ml 100 Ml Infus..Btl IV 05/07/22 13:21 70 ml ONCE ONE Administration Lorazepam 1 mg 05/07/22 16:54 05/07/22 17:19 Lorazepam 1 Mg Tablet PO 05/07/22 16:55 1 mg ONCE ONE Administration <YARI Capellan - Last Filed: 05/07/22 17:44> Medications Administered Discontinued Medications Generic Name Dose Route Start Last Admin Trade Name Freq PRN Reason Stop Dose Admin Acetaminophen 975 mg 05/07/22 16:54 05/07/22 17:19 Acetaminophen 325 Mg Tablet PO 05/07/22 16:55 975 mg ONCE ONE Administration Iohexol 100 ml 05/07/22 13:20 05/07/22 13:21 Iohexol 350 Mg/Ml 100 Ml Infus..Btl IV 05/07/22 13:21 70 ml ONCE ONE Administration Lorazepam 1 mg 05/07/22 16:54 05/07/22 17:19 Lorazepam 1 Mg Tablet PO 05/07/22 16:55 1 mg ONCE ONE Administration <Candida Posada NP - Last Filed: 05/08/22 00:04> Medical Decision Making Medical Decision Making MDM Narrative: 61 yo female with history of asthma, migraines, vertigo, GERD, pseudotumor cerebri, hypothyroidism, obesity s/p gastric bypass, orthostatic hypotension w/ recurrent falls, ?CVA vs TIA 20 years ago who is presenting to the ER for evaluation of intermittent sharp right sided head pains along with RLE numbness/heaviness for the last 3 days. NIH 6. Out of tPA window due to delayed presentation. CTA head/neck are unremarkable. MRI of the brain ordered <YARI Capellan - Last Filed: 05/07/22 17:44> Differential Diagnosis Differential Diagnoses: The differential diagnosis associated with the presentation includes <YARI Capellan - Last Filed: 05/07/22 17:44> CVA, atypical migraine, sciatica, herniated disc, spinal stenosis, SI joint dysfunction <YARI Capellan - Last Filed: 05/07/22 17:44> Admission/Observation Consideration of admission/observation: Escalation of care including admission/observation considered <YARI Capellan - Last Filed: 05/07/22 17:44> Lab Data MDM Lab Attestation statement: I reviewed the patient's lab results. <YARI Capellan Last Filed: 05/07/22 17:44> no major metabolic derangement, no anemia <YARI Capellan - Last Filed: 05/07/22 17:44> Result Diagrams: 05/07/22 12:17 05/07/22 12:17 <YARI Capellan - Last Filed: 05/07/22 17:44> Labs: Lab Results 03/05/07/22 05/07/22 Range/Units 12:17 12:17 12:17 WBC 5.8 (4.8-10.8) X10*3/uL RBC 4.62 (4.20-5.50) X10*6/uL Hgb 12.3 (12.0-16.0) g/dl Hct 39.5 (37.0-47.0) % MCV 85.5 (80.0-98.0) fL MCH 26.6 L (27.0-33.0) pg MCHC 31.1 (31.0-35.0) g/dl RDW 14.6 (11.0-16.0) % Plt Count 237 (160-400) X10*3/uL MPV 9.7 (9.4-12.3) fL Immature Gran % (Auto) 0.3 (0.0-0.4) % Neut % (Auto) 60.5 (45-73) % Lymph % (Auto) 22.9 (20-40) % [place] % (Auto) 12.6 H (2-11) % Eos % (Auto) 2.8 (0-4) % Baso % (Auto) 0.9 (0-2) % Lymph # (Auto) 1.3 (1.2-4.9) X10*3/uL [place] # (Auto) 0.7 (0.1-1.2) X10*3/uL Eos # (Auto) 0.2 (0.0-0.4) X10*3/uL Baso # (Auto) 0.1 (0.0-0.2) X10*3/uL Abs Immat Gran (auto) 0.02 (0.00-0.03) X10*3/uL Absolute Neuts (auto) 3.5 (2.0-8.3) x10*3/uL Absolute Nucleated RBC 0.000 (0.0-0.012) X10*3/uL Nucleated RBC % (auto) 0.0 (0.0-0.2) /100WBC ESR (0-20) MM/HR PT 10.8 (10.0-13.1) SEC INR 0.9 (0.9-1.1) APTT (26.0-36.4) SEC Sodium 141 (135-145) mmol/L Potassium 4.4 (3.3-5.1) mmol/L Chloride 106 (96-108) mmol/L Carbon Dioxide 27 (22-29) mmol/L Anion Gap 12 (12-20) BUN 17 H (9-16) mg/dL Creatinine 0.77 (0.5-1.4) mg/dL Estim Creat Clear Calc 74.4 Estimated GFR > 60 Random Glucose 87 (60-115) mg/dL Calcium 8.8 D (8.4-10.2) mg/dL Magnesium 2.3 (1.6-2.6) mg/dL Total Bilirubin 0.4 (0.0-1.0) mg/dL Direct Bilirubin < 0.2 (0.0-0.5) mg/dL AST 22 (5-31) U/L ALT 22 (0-31) U/L Alkaline Phosphatase 76 (39-117) U/L Troponin I High Sens (<3.5-17.0) ng/L C-Reactive Protein 0.25 (< or = 0.50) mg/dL Total Protein 6.1 L (6.5-8.0) g/dL Albumin 3.6 (3.5-5.0) g/dL TSH (0.32-4.0) uIU/mL Urine Color Urine Appearance Urine pH (5.0-9.0) Ur Specific [place] (1.005-1.025) Urine Protein (Neg-Trace) mg/dL Urine Glucose (UA) (Negative) mg/dL Urine Ketones (Negative) mg/dL Urine Blood (Negative) Urine Nitrite (Negative) Ur Leukocyte Esterase (Negative) Urine RBC (0-2) /HPF Urine WBC (0-5) /HPF Ur Squamous Epith Cells (0-2) /HPF Urine Bacteria (None Seen) Hyaline Casts (0-2) /LPF Urine Opiates Screen (Not Detect) Urine Fentanyl Screen (Not Detect) Ur Barbiturates Screen (Not Detect) Ur Phencyclidine Scrn (Not Detect) Ur Amphetamines Screen (Not Detect) U Benzodiazepines Scrn (Not Detect) Urine Cocaine Screen (Not Detect) U Marijuana (THC) Screen (Not Detect) COVID-19 (RICK) (Negative) COVID-19 Clin Com 03/05/07/22 05/07/22 Range/Units 12:17 12:17 12:17 WBC (4.8-10.8) X10*3/uL RBC (4.20-5.50) X10*6/uL Hgb (12.0-16.0) g/dl Hct (37.0-47.0) % MCV (80.0-98.0) fL MCH (27.0-33.0) pg MCHC (31.0-35.0) g/dl RDW (11.0-16.0) % Plt Count (160-400) X10*3/uL MPV (9.4-12.3) fL Immature Gran % (Auto) (0.0-0.4) % Neut % (Auto) (45-73) % Lymph % (Auto) (20-40) % [place] % (Auto) (2-11) % Eos % (Auto) (0-4) % Baso % (Auto) (0-2) % Lymph # (Auto) (1.2-4.9) X10*3/uL [place] # (Auto) (0.1-1.2) X10*3/uL Eos # (Auto) (0.0-0.4) X10*3/uL Baso # (Auto) (0.0-0.2) X10*3/uL Abs Immat Gran (auto) (0.00-0.03) X10*3/uL Absolute Neuts (auto) (2.0-8.3) x10*3/uL Absolute Nucleated RBC (0.0-0.012) X10*3/uL Nucleated RBC % (auto) (0.0-0.2) /100WBC ESR (0-20) MM/HR PT (10.0-13.1) SEC INR (0.9-1.1) APTT 31.9 (26.0-36.4) SEC Sodium (135-145) mmol/L Potassium (3.3-5.1) mmol/L Chloride (96-108) mmol/L Carbon Dioxide (22-29) mmol/L Anion Gap (12-20) BUN (9-16) mg/dL Creatinine (0.5-1.4) mg/dL Estim Creat Clear Calc Estimated GFR Random Glucose (60-115) mg/dL Calcium (8.4-10.2) mg/dL Magnesium (1.6-2.6) mg/dL Total Bilirubin (0.0-1.0) mg/dL Direct Bilirubin (0.0-0.5) mg/dL AST (5-31) U/L ALT (0-31) U/L Alkaline Phosphatase (39-117) U/L Troponin I High Sens < 3.5 (<3.5-17.0) ng/L C-Reactive Protein (< or = 0.50) mg/dL Total Protein (6.5-8.0) g/dL Albumin (3.5-5.0) g/dL TSH (0.32-4.0) uIU/mL Urine Color Urine Appearance Urine pH (5.0-9.0) Ur Specific [place] (1.005-1.025) Urine Protein (Neg-Trace) mg/dL Urine Glucose (UA) (Negative) mg/dL Urine Ketones (Negative) mg/dL Urine Blood (Negative) Urine Nitrite (Negative) Ur Leukocyte Esterase (Negative) Urine RBC (0-2) /HPF Urine WBC (0-5) /HPF Ur Squamous Epith Cells (0-2) /HPF Urine Bacteria (None Seen) Hyaline Casts (0-2) /LPF Urine Opiates Screen (Not Detect) Urine Fentanyl Screen (Not Detect) Ur Barbiturates Screen (Not Detect) Ur Phencyclidine Scrn (Not Detect) Ur Amphetamines Screen (Not Detect) U Benzodiazepines Scrn (Not Detect) Urine Cocaine Screen (Not Detect) U Marijuana (THC) Screen (Not Detect) COVID-19 (RICK) Negative (Negative) COVID-19 Clin Com See Note 05/07/22 05/07/22 05/07/22 Range/Units 12:17 12:17 12:17 WBC (4.8-10.8) X10*3/uL RBC (4.20-5.50) X10*6/uL Hgb (12.0-16.0) g/dl Hct (37.0-47.0) % MCV (80.0-98.0) fL MCH (27.0-33.0) pg MCHC (31.0-35.0) g/dl RDW (11.0-16.0) % Plt Count (160-400) X10*3/uL MPV (9.4-12.3) fL Immature Gran % (Auto) (0.0-0.4) % Neut % (Auto) (45-73) % Lymph % (Auto) (20-40) % [place] % (Auto) (2-11) % Eos % (Auto) (0-4) % Baso % (Auto) (0-2) % Lymph # (Auto) (1.2-4.9) X10*3/uL [place] # (Auto) (0.1-1.2) X10*3/uL Eos # (Auto) (0.0-0.4) X10*3/uL Baso # (Auto) (0.0-0.2) X10*3/uL Abs Immat Gran (auto) (0.00-0.03) X10*3/uL Absolute Neuts (auto) (2.0-8.3) x10*3/uL Absolute Nucleated RBC (0.0-0.012) X10*3/uL Nucleated RBC % (auto) (0.0-0.2) /100WBC ESR (0-20) MM/HR PT (10.0-13.1) SEC INR (0.9-1.1) APTT (26.0-36.4) SEC Sodium (135-145) mmol/L Potassium (3.3-5.1) mmol/L Chloride (96-108) mmol/L Carbon Dioxide (22-29) mmol/L Anion Gap (12-20) BUN (9-16) mg/dL Creatinine (0.5-1.4) mg/dL Estim Creat Clear Calc Estimated GFR Random Glucose (60-115) mg/dL Calcium (8.4-10.2) mg/dL Magnesium (1.6-2.6) mg/dL Total Bilirubin (0.0-1.0) mg/dL Direct Bilirubin (0.0-0.5) mg/dL AST (5-31) U/L ALT (0-31) U/L Alkaline Phosphatase (39-117) U/L Troponin I High Sens (<3.5-17.0) ng/L C-Reactive Protein (< or = 0.50) mg/dL Total Protein (6.5-8.0) g/dL Albumin (3.5-5.0) g/dL TSH 0.95 (0.32-4.0) uIU/mL Urine Color Yellow Urine Appearance Clear Urine pH 7.0 (5.0-9.0) Ur Specific [place] <= 1.005 (1.005-1.025) Urine Protein Negative (Neg-Trace) mg/dL Urine Glucose (UA) Negative (Negative) mg/dL Urine Ketones Negative (Negative) mg/dL Urine Blood Trace H (Negative) Urine Nitrite Negative (Negative) Ur Leukocyte Esterase Negative (Negative) Urine RBC 0-2 (0-2) /HPF Urine WBC 0-5 (0-5) /HPF Ur Squamous Epith Cells 0-2 (0-2) /HPF Urine Bacteria None Seen (None Seen) Hyaline Casts 0-2 (0-2) /LPF Urine Opiates Screen Not Detected (Not Detect) Urine Fentanyl Screen Not Detected (Not Detect) Ur Barbiturates Screen Not Detected (Not Detect) Ur Phencyclidine Scrn Not Detected (Not Detect) Ur Amphetamines Screen Not Detected (Not Detect) U Benzodiazepines Scrn POSITIVE H (Not Detect) Urine Cocaine Screen Not Detected (Not Detect) U Marijuana (THC) Screen Not Detected (Not Detect) COVID-19 (RICK) (Negative) COVID-19 Clin Com 05/07/22 Range/Units 12:17 WBC (4.8-10.8) X10*3/uL RBC (4.20-5.50) X10*6/uL Hgb (12.0-16.0) g/dl Hct (37.0-47.0) % MCV (80.0-98.0) fL MCH (27.0-33.0) pg MCHC (31.0-35.0) g/dl RDW (11.0-16.0) % Plt Count (160-400) X10*3/uL MPV (9.4-12.3) fL Immature Gran % (Auto) (0.0-0.4) % Neut % (Auto) (45-73) % Lymph % (Auto) (20-40) % [place] % (Auto) (2-11) % Eos % (Auto) (0-4) % Baso % (Auto) (0-2) % Lymph # (Auto) (1.2-4.9) X10*3/uL [place] # (Auto) (0.1-1.2) X10*3/uL Eos # (Auto) (0.0-0.4) X10*3/uL Baso # (Auto) (0.0-0.2) X10*3/uL Abs Immat Gran (auto) (0.00-0.03) X10*3/uL Absolute Neuts (auto) (2.0-8.3) x10*3/uL Absolute Nucleated RBC (0.0-0.012) X10*3/uL Nucleated RBC % (auto) (0.0-0.2) /100WBC ESR 16 (0-20) MM/HR PT (10.0-13.1) SEC INR (0.9-1.1) APTT (26.0-36.4) SEC Sodium (135-145) mmol/L Potassium (3.3-5.1) mmol/L Chloride (96-108) mmol/L Carbon Dioxide (22-29) mmol/L Anion Gap (12-20) BUN (9-16) mg/dL Creatinine (0.5-1.4) mg/dL Estim Creat Clear Calc Estimated GFR Random Glucose (60-115) mg/dL Calcium (8.4-10.2) mg/dL Magnesium (1.6-2.6) mg/dL Total Bilirubin (0.0-1.0) mg/dL Direct Bilirubin (0.0-0.5) mg/dL AST (5-31) U/L ALT (0-31) U/L Alkaline Phosphatase (39-117) U/L Troponin I High Sens (<3.5-17.0) ng/L C-Reactive Protein (< or = 0.50) mg/dL Total Protein (6.5-8.0) g/dL Albumin (3.5-5.0) g/dL TSH (0.32-4.0) uIU/mL Urine Color Urine Appearance Urine pH (5.0-9.0) Ur Specific [place] (1.005-1.025) Urine Protein (Neg-Trace) mg/dL Urine Glucose (UA) (Negative) mg/dL Urine Ketones (Negative) mg/dL Urine Blood (Negative) Urine Nitrite (Negative) Ur Leukocyte Esterase (Negative) Urine RBC (0-2) /HPF Urine WBC (0-5) /HPF Ur Squamous Epith Cells (0-2) /HPF Urine Bacteria (None Seen) Hyaline Casts (0-2) /LPF Urine Opiates Screen (Not Detect) Urine Fentanyl Screen (Not Detect) Ur Barbiturates Screen (Not Detect) Ur Phencyclidine Scrn (Not Detect) Ur Amphetamines Screen (Not Detect) U Benzodiazepines Scrn (Not Detect) Urine Cocaine Screen (Not Detect) U Marijuana (THC) Screen (Not Detect) COVID-19 (RICK) (Negative) COVID-19 Clin Com <YARI Capellan - Last Filed: 05/07/22 17:44> Lab Results 05/07/22 05/07/22 05/07/22 Range/Units 12:17 12:17 12:17 WBC 5.8 (4.8-10.8) X10*3/uL RBC 4.62 (4.20-5.50) X10*6/uL Hgb 12.3 (12.0-16.0) g/dl Hct 39.5 (37.0-47.0) % MCV 85.5 (80.0-98.0) fL MCH 26.6 L (27.0-33.0) pg MCHC 31.1 (31.0-35.0) g/dl RDW 14.6 (11.0-16.0) % Plt Count 237 (160-400) X10*3/uL MPV 9.7 (9.4-12.3) fL Immature Gran % (Auto) 0.3 (0.0-0.4) % Neut % (Auto) 60.5 (45-73) % Lymph % (Auto) 22.9 (20-40) % [place] % (Auto) 12.6 H (2-11) % Eos % (Auto) 2.8 (0-4) % Baso % (Auto) 0.9 (0-2) % Lymph # (Auto) 1.3 (1.2-4.9) X10*3/uL [place] # (Auto) 0.7 (0.1-1.2) X10*3/uL Eos # (Auto) 0.2 (0.0-0.4) X10*3/uL Baso # (Auto) 0.1 (0.0-0.2) X10*3/uL Abs Immat Gran (auto) 0.02 (0.00-0.03) X10*3/uL Absolute Neuts (auto) 3.5 (2.0-8.3) x10*3/uL Absolute Nucleated RBC 0.000 (0.0-0.012) X10*3/uL Nucleated RBC % (auto) 0.0 (0.0-0.2) /100WBC ESR (0-20) MM/HR PT 10.8 (10.0-13.1) SEC INR 0.9 (0.9-1.1) APTT (26.0-36.4) SEC Sodium 141 (135-145) mmol/L Potassium 4.4 (3.3-5.1) mmol/L Chloride 106 (96-108) mmol/L Carbon Dioxide 27 (22-29) mmol/L Anion Gap 12 (12-20) BUN 17 H (9-16) mg/dL Creatinine 0.77 (0.5-1.4) mg/dL Estim Creat Clear Calc 74.4 Estimated GFR > 60 Random Glucose 87 (60-115) mg/dL Calcium 8.8 D (8.4-10.2) mg/dL Magnesium 2.3 (1.6-2.6) mg/dL Total Bilirubin 0.4 (0.0-1.0) mg/dL Direct Bilirubin < 0.2 (0.0-0.5) mg/dL AST 22 (5-31) U/L ALT 22 (0-31) U/L Alkaline Phosphatase 76 (39-117) U/L Troponin I High Sens (<3.5-17.0) ng/L C-Reactive Protein 0.25 (< or = 0.50) mg/dL Total Protein 6.1 L (6.5-8.0) g/dL Albumin 3.6 (3.5-5.0) g/dL TSH (0.32-4.0) uIU/mL Urine Color Urine Appearance Urine pH (5.0-9.0) Ur Specific [place] (1.005-1.025) Urine Protein (Neg-Trace) mg/dL Urine Glucose (UA) (Negative) mg/dL Urine Ketones (Negative) mg/dL Urine Blood (Negative) Urine Nitrite (Negative) Ur Leukocyte Esterase (Negative) Urine RBC (0-2) /HPF Urine WBC (0-5) /HPF Ur Squamous Epith Cells (0-2) /HPF Urine Bacteria (None Seen) Hyaline Casts (0-2) /LPF Urine Opiates Screen (Not Detect) Urine Fentanyl Screen (Not Detect) Ur Barbiturates Screen (Not Detect) Ur Phencyclidine Scrn (Not Detect) Ur Amphetamines Screen (Not Detect) U Benzodiazepines Scrn (Not Detect) Urine Cocaine Screen (Not Detect) U Marijuana (THC) Screen (Not Detect) COVID-19 (RICK) (Negative) COVID-19 Clin Com 05/07/22 05/07/22 05/07/22 Range/Units 12:17 12:17 12:17 WBC (4.8-10.8) X10*3/uL RBC (4.20-5.50) X10*6/uL Hgb (12.0-16.0) g/dl Hct (37.0-47.0) % MCV (80.0-98.0) fL MCH (27.0-33.0) pg MCHC (31.0-35.0) g/dl RDW (11.0-16.0) % Plt Count (160-400) X10*3/uL MPV (9.4-12.3) fL Immature Gran % (Auto) (0.0-0.4) % Neut % (Auto) (45-73) % Lymph % (Auto) (20-40) % [place] % (Auto) (2-11) % Eos % (Auto) (0-4) % Baso % (Auto) (0-2) % Lymph # (Auto) (1.2-4.9) X10*3/uL [place] # (Auto) (0.1-1.2) X10*3/uL Eos # (Auto) (0.0-0.4) X10*3/uL Baso # (Auto) (0.0-0.2) X10*3/uL Abs Immat Gran (auto) (0.00-0.03) X10*3/uL Absolute Neuts (auto) (2.0-8.3) x10*3/uL Absolute Nucleated RBC (0.0-0.012) X10*3/uL Nucleated RBC % (auto) (0.0-0.2) /100WBC ESR (0-20) MM/HR PT (10.0-13.1) SEC INR (0.9-1.1) APTT 31.9 (26.0-36.4) SEC Sodium (135-145) mmol/L Potassium (3.3-5.1) mmol/L Chloride (96-108) mmol/L Carbon Dioxide (22-29) mmol/L Anion Gap (12-20) BUN (9-16) mg/dL Creatinine (0.5-1.4) mg/dL Estim Creat Clear Calc Estimated GFR Random Glucose (60-115) mg/dL Calcium (8.4-10.2) mg/dL Magnesium (1.6-2.6) mg/dL Total Bilirubin (0.0-1.0) mg/dL Direct Bilirubin (0.0-0.5) mg/dL AST (5-31) U/L ALT (0-31) U/L Alkaline Phosphatase (39-117) U/L Troponin I High Sens < 3.5 (<3.5-17.0) ng/L C-Reactive Protein (< or = 0.50) mg/dL Total Protein (6.5-8.0) g/dL Albumin (3.5-5.0) g/dL TSH (0.32-4.0) uIU/mL Urine Color Urine Appearance Urine pH (5.0-9.0) Ur Specific [place] (1.005-1.025) Urine Protein (Neg-Trace) mg/dL Urine Glucose (UA) (Negative) mg/dL Urine Ketones (Negative) mg/dL Urine Blood (Negative) Urine Nitrite (Negative) Ur Leukocyte Esterase (Negative) Urine RBC (0-2) /HPF Urine WBC (0-5) /HPF Ur Squamous Epith Cells (0-2) /HPF Urine Bacteria (None Seen) Hyaline Casts (0-2) /LPF Urine Opiates Screen (Not Detect) Urine Fentanyl Screen (Not Detect) Ur Barbiturates Screen (Not Detect) Ur Phencyclidine Scrn (Not Detect) Ur Amphetamines Screen (Not Detect) U Benzodiazepines Scrn (Not Detect) Urine Cocaine Screen (Not Detect) U Marijuana (THC) Screen (Not Detect) COVID-19 (RICK) Negative (Negative) COVID-19 Clin Com See Note 05/07/22 05/07/22 05/07/22 Range/Units 12:17 12:17 12:17 WBC (4.8-10.8) X10*3/uL RBC (4.20-5.50) X10*6/uL Hgb (12.0-16.0) g/dl Hct (37.0-47.0) % MCV (80.0-98.0) fL MCH (27.0-33.0) pg MCHC (31.0-35.0) g/dl RDW (11.0-16.0) % Plt Count (160-400) X10*3/uL MPV (9.4-12.3) fL Immature Gran % (Auto) (0.0-0.4) % Neut % (Auto) (45-73) % Lymph % (Auto) (20-40) % [place] % (Auto) (2-11) % Eos % (Auto) (0-4) % Baso % (Auto) (0-2) % Lymph # (Auto) (1.2-4.9) X10*3/uL [place] # (Auto) (0.1-1.2) X10*3/uL Eos # (Auto) (0.0-0.4) X10*3/uL Baso # (Auto) (0.0-0.2) X10*3/uL Abs Immat Gran (auto) (0.00-0.03) X10*3/uL Absolute Neuts (auto) (2.0-8.3) x10*3/uL Absolute Nucleated RBC (0.0-0.012) X10*3/uL Nucleated RBC % (auto) (0.0-0.2) /100WBC ESR (0-20) MM/HR PT (10.0-13.1) SEC INR (0.9-1.1) APTT (26.0-36.4) SEC Sodium (135-145) mmol/L Potassium (3.3-5.1) mmol/L Chloride (96-108) mmol/L Carbon Dioxide (22-29) mmol/L Anion Gap (12-20) BUN (9-16) mg/dL Creatinine (0.5-1.4) mg/dL Estim Creat Clear Calc Estimated GFR Random Glucose (60-115) mg/dL Calcium (8.4-10.2) mg/dL Magnesium (1.6-2.6) mg/dL Total Bilirubin (0.0-1.0) mg/dL Direct Bilirubin (0.0-0.5) mg/dL AST (5-31) U/L ALT (0-31) U/L Alkaline Phosphatase (39-117) U/L Troponin I High Sens (<3.5-17.0) ng/L C-Reactive Protein (< or = 0.50) mg/dL Total Protein (6.5-8.0) g/dL Albumin (3.5-5.0) g/dL TSH 0.95 (0.32-4.0) uIU/mL Urine Color Yellow Urine Appearance Clear Urine pH 7.0 (5.0-9.0) Ur Specific [place] <= 1.005 (1.005-1.025) Urine Protein Negative (Neg-Trace) mg/dL Urine Glucose (UA) Negative (Negative) mg/dL Urine Ketones Negative (Negative) mg/dL Urine Blood Trace H (Negative) Urine Nitrite Negative (Negative) Ur Leukocyte Esterase Negative (Negative) Urine RBC 0-2 (0-2) /HPF Urine WBC 0-5 (0-5) /HPF Ur Squamous Epith Cells 0-2 (0-2) /HPF Urine Bacteria None Seen (None Seen) Hyaline Casts 0-2 (0-2) /LPF Urine Opiates Screen Not Detected (Not Detect) Urine Fentanyl Screen Not Detected (Not Detect) Ur Barbiturates Screen Not Detected (Not Detect) Ur Phencyclidine Scrn Not Detected (Not Detect) Ur Amphetamines Screen Not Detected (Not Detect) U Benzodiazepines Scrn POSITIVE H (Not Detect) Urine Cocaine Screen Not Detected (Not Detect) U Marijuana (THC) Screen Not Detected (Not Detect) COVID-19 (RICK) (Negative) COVID-19 Clin Com 05/07/22 Range/Units 12:17 WBC (4.8-10.8) X10*3/uL RBC (4.20-5.50) X10*6/uL Hgb (12.0-16.0) g/dl Hct (37.0-47.0) % MCV (80.0-98.0) fL MCH (27.0-33.0) pg MCHC (31.0-35.0) g/dl RDW (11.0-16.0) % Plt Count (160-400) X10*3/uL MPV (9.4-12.3) fL Immature Gran % (Auto) (0.0-0.4) % Neut % (Auto) (45-73) % Lymph % (Auto) (20-40) % [place] % (Auto) (2-11) % Eos % (Auto) (0-4) % Baso % (Auto) (0-2) % Lymph # (Auto) (1.2-4.9) X10*3/uL [place] # (Auto) (0.1-1.2) X10*3/uL Eos # (Auto) (0.0-0.4) X10*3/uL Baso # (Auto) (0.0-0.2) X10*3/uL Abs Immat Gran (auto) (0.00-0.03) X10*3/uL Absolute Neuts (auto) (2.0-8.3) x10*3/uL Absolute Nucleated RBC (0.0-0.012) X10*3/uL Nucleated RBC % (auto) (0.0-0.2) /100WBC ESR 16 (0-20) MM/HR PT (10.0-13.1) SEC INR (0.9-1.1) APTT (26.0-36.4) SEC Sodium (135-145) mmol/L Potassium (3.3-5.1) mmol/L Chloride (96-108) mmol/L Carbon Dioxide (22-29) mmol/L Anion Gap (12-20) BUN (9-16) mg/dL Creatinine (0.5-1.4) mg/dL Estim Creat Clear Calc Estimated GFR Random Glucose (60-115) mg/dL Calcium (8.4-10.2) mg/dL Magnesium (1.6-2.6) mg/dL Total Bilirubin (0.0-1.0) mg/dL Direct Bilirubin (0.0-0.5) mg/dL AST (5-31) U/L ALT (0-31) U/L Alkaline Phosphatase (39-117) U/L Troponin I High Sens (<3.5-17.0) ng/L C-Reactive Protein (< or = 0.50) mg/dL Total Protein (6.5-8.0) g/dL Albumin (3.5-5.0) g/dL TSH (0.32-4.0) uIU/mL Urine Color Urine Appearance Urine pH (5.0-9.0) Ur Specific [place] (1.005-1.025) Urine Protein (Neg-Trace) mg/dL Urine Glucose (UA) (Negative) mg/dL Urine Ketones (Negative) mg/dL Urine Blood (Negative) Urine Nitrite (Negative) Ur Leukocyte Esterase (Negative) Urine RBC (0-2) /HPF Urine WBC (0-5) /HPF Ur Squamous Epith Cells (0-2) /HPF Urine Bacteria (None Seen) Hyaline Casts (0-2) /LPF Urine Opiates Screen (Not Detect) Urine Fentanyl Screen (Not Detect) Ur Barbiturates Screen (Not Detect) Ur Phencyclidine Scrn (Not Detect) Ur Amphetamines Screen (Not Detect) U Benzodiazepines Scrn (Not Detect) Urine Cocaine Screen (Not Detect) U Marijuana (THC) Screen (Not Detect) COVID-19 (RICK) (Negative) COVID-19 Clin Com <Candida Posada NP - Last Filed: 05/08/22 00:04> Independent Interpretation I performed an independent interpretation of an: EKG <YARI Capellan - Last Filed: 05/07/22 17:44> Interpretation: EKG patient will normal sinus rhythm with sinus arrhythmia with a low volt age QRS, ventricular rate of 65 beats per minute, MS interval 156, QT/QTC 390/405ms. no ST elevation or depression. <YARI Capellan - Last Filed: 05/07/22 17:44> Radiology Impression Discussion of test interpretation with radiology: I have reviewed the radiologist's reading. <YARI Capellan - Last Filed: 05/07/22 17:44> Radiologist Impression: COMPARISON: CT head March 25, 2021. TECHNIQUE: Test bolus sequences followed by intravenous administration 70 mL of Omnipaque 350. Helical imaging was performed in the axial plane from the thoracic inlet to the skull vertex. Delayed postcontrast imaging of the head was also performed. The data was processed at the dairy technologist workstation for generation of MIP sequences. Angled MIPs and volume rendered reformatted images were also generated at an offline 3D workstation under concurrent supervision. Stenoses are assessed in accordance with NASCET criteria unless otherwise indicated. This CT examination was performed using dose optimization techniques as appropriate, variously including the following: *Automated exposure control *Adjustment of mA and/or kV according to patient size (this includes techniques or standardized protocols for targeted exams where dose is matched to indication/reason for exam; i.e. extremities or head) *Use of iterative reconstruction technique FINDINGS: BRAIN: [There is no intracranial hemorrhage, hydrocephalus, extra-axial surface collection, midline shift, or other herniation pattern. Saunders to white matter differentiation is diffusely maintained without evidence of an evolved acute territorial infarct. The basilar cisterns are preserved. No significant soft tissue abnormality. No acute osseous abnormality. The paranasal sinuses and the mastoid air cells are well aerated.] CERVICAL SOFT TISSUES AND LUNG APICES: There is multilevel cervical spondylosis. NECK CTA: [There is a classic 3 vessel configuration of the aortic arch. Proximal arch vessels are non-stenotic. The vertebral arteries are codominant. No significant ostial stenosis is visualized on either side. Both vertebral arteries are widely patent throughout their extracranial cervical course. Both common and internal carotid arteries are normal in course and caliber.] BRAIN CTA: Atherosclerotic calcification throughout the carotid siphons bilaterally without significant stenosis. No focal flow-limiting stenosis nor discrete proximal large artery occlusion. No aneurysm. Timing of the contrast bolus allows assessment of the major dural venous sinuses, which all opacify normally] CT/CT angio head neck IMPRESSION: No acute intracranial findings. No significant arterial stenoses nor acute arterial occlusions within the head or neck. <YARI Capellan - Last Filed: 05/07/22 17:44> COMPARISON: CT head March 25, 2021. TECHNIQUE: Test bolus sequences followed by intravenous administration 70 mL of Omnipaque 350. Helical imaging was performed in the axial plane from the thoracic inlet to the skull vertex. Delayed postcontrast imaging of the head was also performed. The data was processed at the dairy technologist workstation for generation of MIP sequences. Angled MIPs and volume rendered reformatted images were also generated at an offline 3D workstation under concurrent supervision. Stenoses are assessed in accordance with NASCET criteria unless otherwise indicated. This CT examination was performed using dose optimization techniques as appropriate, variously including the following: *Automated exposure control *Adjustment of mA and/or kV according to patient size (this includes techniques or standardized protocols for targeted exams where dose is matched to indication/reason for exam; i.e. extremities or head) *Use of iterative reconstruction technique FINDINGS: BRAIN: [There is no intracranial hemorrhage, hydrocephalus, extra-axial surface collection, midline shift, or other herniation pattern. Saunders to white matter differentiation is diffusely maintained without evidence of an evolved acute territorial infarct. The basilar cisterns are preserved. No significant soft tissue abnormality. No acute osseous abnormality. The paranasal sinuses and the mastoid air cells are well aerated.] CERVICAL SOFT TISSUES AND LUNG APICES: There is multilevel cervical spondylosis. NECK CTA: [There is a classic 3 vessel configuration of the aortic arch. Proximal arch vessels are non-stenotic. The vertebral arteries are codominant. No significant ostial stenosis is visualized on either side. Both vertebral arteries are widely patent throughout their extracranial cervical course. Both common and internal carotid arteries are normal in course and caliber.] BRAIN CTA: Atherosclerotic calcification throughout the carotid siphons bilaterally without significant stenosis. No focal flow-limiting stenosis nor discrete proximal large artery occlusion. No aneurysm. Timing of the contrast bolus allows assessment of the major dural venous sinuses, which all opacify normally] CT/CT angio head neck IMPRESSION: No acute intracranial findings. No significant arterial stenoses nor acute arterial occlusions within the head or neck. EXAMINATION: MR BRAIN WITHOUT CONTRAST CLINICAL INFORMATION: Right-sided weakness and numbness, headache? COMPARISON: Same day CTA head and neck TECHNIQUE: Multiplanar multisequence MR imaging of the brain was obtained without intravenous contrast. FINDINGS: There is no acute infarct on diffusion-weighted imaging.? There is no intracranial hemorrhage on iron-sensitive imaging.? No extra-axial collection or mass effect/herniation.? There are several scattered foci of nonspecific supratentorial white matter T2/FLAIR signal abnormality. ? No hydrocephalus.? The ventricles are normal in morphology and size. The major flow voids at the skull base are preserved. The midline structures are normal.? The cerebellar tonsils are normally positioned.? The craniocervical junction is normal.? Marrow signal is within normal limits. The visualized soft tissues are without significant abnormality.? Mild right maxillary sinus mucosal thickening. MR/MR head/brain wo con IMPRESSION: ? 1.? No acute infarct or other acute intracranial abnormality ? 2.? Few nonspecific foci of supratentorial white matter FLAIR signal abnormality, most likely related to chronic microvascular ischemia <Candida Posada NP - Last Filed: 05/08/22 00:04> External Record Review External record reviewed: Prior outpatient labs and Prior outpatient radiology <YARI Capellan - Last Filed: 05/07/22 17:44> Discharge Plan Discharge Clinical Impression: Intermittent headache, Numbness and tingling of right leg <YARI Capellan - Last Filed: 05/07/22 17:44> Patient Disposition: Home, Self-Care <YARI Capellan - Last Filed: 05/07/22 17:44> Instructions: Acute Headache (ED) <YARI Capellan - Last Filed: 05/07/22 17:44> Additional Instructions: You were evaluated for multiple neurological concerns. Your CTA of and were negative for acute findings. Your MRI of your brain shows an incidental finding of a nonspecific white matter abnormality. Please follow-up with your neurologist. Take prednisone 20 mg for the next days. Alternate Tylenol 650 mg every 6 hours and Motrin 600 mg every 6 hours as needed for pain and fever management. Consider taking these medications 3 hours apart so you have pain and fever management every 3 hours. Write down what time you take these medications to prevent accidental overdose. Motrin is the same medication as Advil and ibuprofen. Tylenol is the same medication as acetaminophen. You described symptoms consistent with purpura. Please follow-up with infection prevention specialist Dr. Ackerman. Thank you for choosing this emergency department for evaluation. Please follow-up with primary care physician as needed. Return to the emergency department for any new, concerning, or worsening symptoms. <YARI Capellan - Last Filed: 05/07/22 17:44> Prescriptions: New prednisone 20 mg tablet 40 mg PO DAILY 5 Days Qty: 10 0RF No Action albuterol sulfate 2.5 mg /3 mL (0.083 %) solution for nebulization 2.5 mg inhalation Q4H PRN (Reason: for wheezing) Qty: 150 0RF albuterol sulfate [ProAir HFA] 90 mcg/actuation HFA aerosol inhaler 2 puff PO Q6H PRN (Reason: for wheezing) Qty: 8.5 0RF meclizine [Dramamine Less Drowsy] 25 mg tablet 25 mg PO TID PRN (Reason: dizziness) Qty: 20 0RF hydrochlorothiazide 12.5 mg tablet 12.5 mg PO DAILY Qty: 30 0RF acetaminophen 500 mg tablet 500 mg PO QID PRN (Reason: pain) Qty: 20 0RF cyclobenzaprine 10 mg tablet 10 mg PO TID PRN (Reason: muscle spasm) Qty: 7 0RF cyclobenzaprine 10 mg tablet 10 mg PO BEDTIME PRN (Reason: muscle spasm) Qty: 7 0RF sennosides [senna] 8.6 mg tablet 8.6 mg PO BEDTIME Qty: 14 0RF docusate sodium [Colace] 100 mg capsule 100 mg PO BID Qty: 20 0RF doxepin 75 mg capsule 75 mg PO BEDTIME levothyroxine [Levo-T] 75 mcg tablet 75 mcg PO DAILY Adult Multivitamin Gummies 200 mcg tablet,chewable 1 tab PO DAILY omeprazole 20 mg capsule,delayed release(DR/EC) 20 mg PO DAILY midodrine 10 mg tablet 5 mg PO TID Rx Instructions: do not give last dose of day after 6PM or within 4 hrs of bedtime estazolam 1 mg tablet 3 mg PO BEDTIME Flovent HFA 220 mcg/actuation HFA aerosol inhaler 2 puff inhalation BID pyridoxine (vitamin B6) 100 mg tablet 100 mg PO DAILY 90 Days Qty: 90 3RF <YARI Capellan - Last Filed: 05/07/22 17:44> Referrals: Danielle Ackerman MD [Physician] - 2 weeks (Purpura) <YARI Capellan - Last Filed: 05/07/22 17:44> Interventions: ED Discharge Assessment Last Done: 05/07/22 22:09 <YARI Capellan - Last Filed: 05/07/22 17:44> Discharge Date/Time: 05/07/22 22:10 <YARI Capellan - Last Filed: 05/07/22 17:44>
--- NOTE | 2022-05-07 12:04 | PC.NURSE ---
Pt BIBA from home. Pt complaining of right sided head pain and weakness since wednesday, but says that the pain is different than it was since then. Pt reports a new onset of visual blurriness this am. Pt reports right sided numbness. Pt reports that she has a history of CVAs. Pt reports that she is not on blood thinners. Pt reports that she has a history of migranes, but this pain is different than any headache or migrane she has ever had before. Pt describes pain as stabbing and it comes and goes. Pt reports a history of vertigo as well.
[2022-05-07 12:24] LABS: MANUAL DIFF FLAG NO
[2022-05-07 12:27] LABS: Appearance Urine Clear; Basophils Absolute Auto 0.1 X10*3/uL (0.0-0.2); Basophils Percent Auto 0.9 % (0-2); Color Urine Yellow; Eosinophils Absolute Auto 0.2 X10*3/uL (0.0-0.4); Eosinophils Percent Auto 2.8 % (0-4); Glucose Urine UA Negative (Negative); Hematocrit 39.5 % (37.0-47.0); Hemoglobin 12.3 g/dl (12.0-16.0); Imm Gran Abs Auto 0.02 X10*3/uL (0.00-0.03); Imm Gran Pct Auto 0.3 % (0.0-0.4); Leukocyte Esterase Urine Negative (Negative); Lymphocytes Absolute Auto 1.3 X10*3/uL (1.2-4.9); Lymphocytes Percent Auto 22.9 % (20-40); Mean Corpuscular HGB Conc 31.1 g/dl (31.0-35.0); Mean Corpuscular Hemoglobin 26.6 pg (27.0-33.0); Mean Corpuscular Volume 85.5 fL (80.0-98.0); Mean Platelet Volume 9.7 fL (9.4-12.3); Monocytes Absolute Auto 0.7 X10*3/uL (0.1-1.2); Monocytes Percent Auto 12.6 % (2-11); Neutrophils Absolute Auto 3.5 x10*3/uL (2.0-8.3); Neutrophils Percent Auto 60.5 % (45-73); Nitrite Urine Negative (Negative); Platelet Count 237 X10*3/uL (160-400); Red Blood Count 4.62 X10*6/uL (4.20-5.50); Red Cell Distribution Width 14.6 % (11.0-16.0); Specific Gravity - Urine <= 1.005 (1.005-1.025); UMIC TRIGGER UACC YES; Urine Blood Trace (Negative); Urine Ketones Negative (Negative); Urine Protein Negative (Neg-Trace); White Blood Count 5.8 X10*3/uL (4.8-10.8)
[2022-05-07 12:30] LABS: Bacteria Urine None Seen (None Seen); Hyaline Casts Urine 0-2 /LPF (0-2); RBC Urine 0-2 /HPF (0-2); Squamous Epithelial Cell Urine 0-2 /HPF (0-2); WBC Urine 0-5 /HPF (0-5)
[2022-05-07 12:32] VITALS: BP 112/60; BP 123/73; PULSE 63; PULSE 67
[2022-05-07 12:33] LABS: INTERNATIONAL NORM RATIO 0.9 (0.9-1.1); Prothrombin Time 10.8 SEC (10.0-13.1)
[2022-05-07 12:35] VITALS: BP 129/79; PULSE 73
[2022-05-07 12:35] LABS: Amphetamine Screen Urine Not Detected (Not Detect); Barbiturates, Urine Not Detected (Not Detect); Benzodiazepines Screen Urine POSITIVE (Not Detect); Cannabinoid Screen Urine Not Detected (Not Detect); Cocaine Screen Urine Not Detected (Not Detect); Fentanyl, urine Not Detected (Not Detect); Opiate Screen Urine Not Detected (Not Detect); Phencyclidine Screen Urine Not Detected (Not Detect)
[2022-05-07 12:36] LABS: Partial Thromboplastin Time 31.9 SEC (26.0-36.4)
[2022-05-07 12:39] LABS: Alanine Aminotransferase 22 U/L (0-31); Albumin Level 3.6 g/dL (3.5-5.0); Alkaline Phosphatase 76 U/L (39-117); Anion Gap 12 (12-20); Aspartate Amino Transferase 22 U/L (5-31); Bilirubin Direct < 0.2 mg/dL (0.0-0.5); Bilirubin Total 0.4 mg/dL (0.0-1.0); Blood Urea Nitrogen 17 mg/dL (9-16); Calcium 8.8 mg/dL (8.4-10.2); Carbon Dioxide 27 mmol/L (22-29); Chloride 106 mmol/L (96-108); Creatinine Clr Calc Pharmacy 74.4; Estimated Glomerular Filt Rate > 60; Glucose Random 87 mg/dL (60-115); Magnesium 2.3 mg/dL (1.6-2.6); Potassium 4.4 mmol/L (3.3-5.1); Sodium 141 mmol/L (135-145); Total Protein 6.1 g/dL (6.5-8.0)
[2022-05-07 12:46] LABS: COVID-19 Test Negative (Negative); IDNOW Serial# 08D9AD1C
[2022-05-07 12:50] LABS: Troponin-I High Sensitivity < 3.5 ng/L (<3.5-17.0)
[2022-05-07 13:00] LABS: TSH reflex Free T4 0.95 uIU/mL (0.32-4.0)
[2022-05-07] MEDS: iohexoL 350 MG/ML 100 ML INFUS..BTL IV (13:21)
[2022-05-07 15:21] VITALS: BP 117/66; PULSE 64; RESP 19; TEMP 36.6; O2SAT 97
[2022-05-07 16:16] LABS: Erythrocyte Sedimentation Rate 16 MM/HR (0-20)
[2022-05-07 16:26] LABS: C Reactive Protein 0.25 mg/dL (< or = 0.50)
[2022-05-07] MEDS: Acetaminophen 325 MG TABLET 975 MG PO (17:19)
[2022-05-07] MEDS: LORazepam 1 MG TABLET PO (17:19)
--- NOTE | 2022-05-07 20:00 | PC.NURSE ---
Report taken from Steve TORRES, assumed care of pt at 191. Pt off floor to MRI at this time.
[2022-05-07 21:13] VITALS: BP 112/86; PULSE 73; RESP 16; TEMP 37.1; O2SAT 99
--- NOTE | 2022-05-07 21:43 | PC.NURSE ---
Results received awaiting PA reeval.
== END 2022-05-07 22:10 | disposition home or self-care (01) ==
PROVIDERS: Physician Assistant; Emergency Provider Student in an Organized Health Care Education/Training Program; PCP Internal Medicine Geriatric Medicine
DX: R51.9 Headache, unspecified (principal); R20.0 Anesthesia of skin; R20.2 Paresthesia of skin; Z20.822 Contact with and (suspected) exposure to COVID-19; Z98.84 Bariatric surgery status; Z79.899 Other long term (current) drug therapy
CPT/HCPCS: 36415; 70496; 70498; 70551; 80048; 80076; 80307; 81001; 83735; 84443; 84484; 85025; 85610; 85652; 85730; 86140; 87635; 93005; 99285; Q9967

== ENCOUNTER → 2022-06-03 13:11 | Outpatient (BNVA) | payer MEDICAID, SELFPAY | PROVIDERS: PCP Internal Medicine Geriatric Medicine; Visit Provider Internal Medicine | DX: J45.909 Unspecified asthma, uncomplicated (principal); R06.02 Shortness of breath; R63.5 Abnormal weight gain; Z98.84 Bariatric surgery status; Z79.52 Long term (current) use of systemic steroids; Z79.899 Other long term (current) drug therapy | CPT/HCPCS: 99212 ==

== ENCOUNTER → 2022-06-23 12:49 | Outpatient (BNV) | payer MEDICAID, SELFPAY | PROVIDERS: PCP Internal Medicine Geriatric Medicine; Visit Provider Internal Medicine Medical Oncology | DX: R23.3 Spontaneous ecchymoses (principal) | CPT/HCPCS: 99204; 99213 ==

== ENCOUNTER 2022-07-10 13:09 | Emergency (ER) | payer MEDICAID, SELFPAY ==
--- NOTE | ~2022-07-10 | CT_ITS ---
EXAMINATION: CT ABDOMEN AND PELVIS WITH CONTRAST CLINICAL INFORMATION: Lower abdominal pain and DIP.. COMPARISON: CT abdomen and pelvis 10/28/2021 TECHNIQUE: Multidetector volumetric images were obtained from the superior aspect of the liver through the pubic symphysis following administration 85 mL of Omnipaque 350 intravenous contrast. Sagittal and coronal reformatted images were obtained on the technologist's workstation. Oral contrast: No This CT examination was performed using dose optimization techniques as appropriate, variously including the following: *Automated exposure control *Adjustment of mA and/or kV according to patient size (this includes techniques or standardized protocols for targeted exams where dose is matched to indication/reason for exam; i.e. extremities or head) *Use of iterative reconstruction technique DLP: 668 mGy-cm FINDINGS: LUNG BASES: The visualized lung bases are unremarkable. LIVER, GALLBLADDER, AND BILIARY TREE: The liver is normal in size, shape, and attenuation. No focal hepatic lesion or biliary ductal dilatation is present. The gallbladder has been surgically removed. PANCREAS: Unremarkable. SPLEEN: Unremarkable. ADRENAL GLANDS: The right adrenal gland is unremarkable. The left adrenal gland is not visualized however there are surgical christian in this region suggestive of previous resection. KIDNEYS AND URETERS: The kidneys are normal in size, shape, and attenuation. No hydronephrosis, hydroureter, or calculi seen. No perinephric stranding. Small hypodense lesions are seen in left kidney likely small cysts. BLADDER: Unremarkable. GASTROINTESTINAL TRACT: There is diffuse colonic diverticulosis with mild mural thickening involving descending colon but no pericolic fat stranding, likely early diverticulitis. There is scattered stool and The rest of the colon. The small bowel loops are normal caliber. Appendix is normal caliber. There are postsurgical changes of the stomach unchanged. No free air or free fluid seen. ABDOMINAL WALL: No significant hernia is appreciated. LYMPH NODES: Normal. VASCULAR: Unremarkable. PELVIC VISCERA: Unremarkable. OSSEOUS STRUCTURES: No aggressive lytic or sclerotic process seen. There is mild bilateral L3-4 and L4-L5 facet joint arthropathy. CT/CT abdomen pelvis w IV con IMPRESSION: Diffuse sigmoid diverticulosis with early diverticulitis is suspected. No pericolic stranding or bowel obstruction seen. There is no free air or free fluid. Mild constipation. Cholecystectomy and gastric surgical changes are stable. Fleischner guidelines were followed.
[2022-07-10 13:20] VITALS: BP 112/70; PULSE 82; RESP 18; TEMP 36.8; O2SAT 98; BMI 31.0
--- NOTE | 2022-07-10 13:20 | ED_ITS ---
HPI - General Adult General Chief complaint: Nausea/Vomiting/Diarrhea Stated complaint: vomiting weak Time Seen by Provider: 07/10/22 13:54 Source: patient Mode of arrival: ambulatory Limitations: no limitations History of Present Illness HPI narrative: 61-year-old female with history of diverticulosis presents with lower abdominal pain, prior lipid blood per rectum. Symptoms started over last 24 hours. Symptoms are described as moderate to severe. They are associated with generalized weakness, fatigue a lack of desire doing anything. She denies being on any blood thinning medications. She does describe lightheadedness. She does have history of vertigo scribed this has been quite different. Symptoms appear to be worse with ambulation and sitting up. She denies any fevers or chills. She has had nausea but no vomiting. She has denies any diarrhea. She has had no fevers or chills. Patient has never had this before Related Data Home Medications Medication Instructions Recorded Confirmed doxepin 75 mg capsule 75 mg PO BEDTIME 11/22/19 06/23/22 levothyroxine 75 mcg tablet 75 mcg PO DAILY 11/22/19 06/23/22 (Levo-T) midodrine 10 mg tablet 5 mg PO TID 11/22/19 06/23/22 multivitamin with minerals-folic 1 tab PO DAILY 11/22/19 06/23/22 acid 200 mcg chewable tablet (Adult Multivitamin Gummies) omeprazole 20 mg capsule,delayed 20 mg PO DAILY 11/22/19 06/23/22 release estazolam 1 mg tablet 3 mg PO BEDTIME 06/06/20 06/23/22 fluticasone propionate 220 2 puff inhalation BID 12/30/20 06/23/22 mcg/actuation HFA aerosol inhaler (Flovent HFA) alendronate 70 mg tablet 70 mg PO QWEEK 06/03/22 06/23/22 cholecalciferol (vitamin D3) 25 25 mcg PO DAILY 06/03/22 06/23/22 mcg (1,000 unit) tablet Compazine 5 mg PO Q8H PRN Nausea 06/04/22 06/23/22 PreviDent 5000 Booster 1.1 % PO USEASDIRECTD 06/04/22 06/23/22 beclomethasone dipropionate 80 80 mcg inhalation BID 06/04/22 06/23/22 mcg/actuation aerosol inhaler ibuprofen 600 mg tablet 600 mg PO BID PRN headache 06/04/22 06/23/22 magnesium 100 mg PO DAILY 06/04/22 06/23/22 perphenazine 4 mg tablet 4 mg PO BID 06/04/22 06/23/22 polyethylene glycol 3350 17 gram 17 g PO BID 06/04/22 06/23/22 oral powder packet (Miralax) Previous Rx's Medication Instructions Recorded hydrochlorothiazide 12.5 mg tablet 12.5 mg PO DAILY #30 tabs 12/19/20 meclizine 25 mg tablet (Dramamine 25 mg PO TID PRN dizziness #20 tabs 12/19/20 Less Drowsy) acetaminophen 500 mg tablet 500 mg PO QID PRN pain #20 tabs 03/25/21 cyclobenzaprine 10 mg tablet 10 mg PO TID PRN muscle spasm #7 03/25/21 tabs pyridoxine (vitamin B6) 100 mg 100 mg PO DAILY 90 days #90 tabs 05/15/21 tablet cyclobenzaprine 10 mg tablet 10 mg PO BEDTIME PRN muscle spasm 10/28/21 #7 tabs docusate sodium 100 mg capsule 100 mg PO BID #20 caps 10/28/21 (Colace) sennosides 8.6 mg tablet (senna) 8.6 mg PO BEDTIME #14 tabs 10/28/21 prednisone 20 mg tablet 40 mg PO DAILY 5 days #10 tabs 05/08/22 albuterol sulfate 2.5 mg/3 mL 2.5 mg (3 mL) inhalation Q4H PRN 06/04/22 (0.083 %) solution for nebulization for wheezing #150 mL albuterol sulfate 90 mcg/actuation 2 puff PO Q6H PRN for wheezing 06/04/22 aerosol inhaler (ProAir HFA) #8.5 grams Allergies Allergy/AdvReac Type Severity Reaction Status Date / Time nalbuphine [From Nubain] Allergy Severe Anaphylaxis Verified 07/10/22 13:20 [facility] Past Medical History Medical History Acid reflux Bronchial asthma Colon polyp COVID-19 vaccine administered Crystal arthropathy Diverticulosis of colon Kidney calculi Kidney tumor Migraine Pseudotumor cerebri Right shoulder injury Syncope Thyroid disease Surgical History History of esophagogastroduodenoscopy (EGD) History of hysterectomy History of surgery on wrist Hx laparoscopic cholecystectomy Hx of colonoscopy Hx of gastric bypass (03/12/15) Previous section Family History Family History Father Heart disease History of open heart surgery Mother Heart disease Social History Social History Household Members: None Household Members Other:: alone Are you a primary personal carer to a significant other at home: No Do you presently have visiting nurse or other home services: No Alcohol intake: never Patient Tobacco Use Status: Former Tobacco user Smoked in Last 30 Days: No Use of substances other than those prescribed or required for medical reasons: No Advance Directives: No service: No Current occupational status: disabled Physical Exam ED Vital Signs: Vital Signs - 24 hr 07/10/22 13:20 07/10/22 14:12 Temperature 98.3 F 98.7 F Pulse Rate 82 78 Respiratory Rate 18 18 Blood Pressure 112/70 118/67 Pulse Oximetry 98 100 Oxygen Delivery Method Room Air Room Air BMI result Body Mass Index 31.0 GEN: Well developed, no acute distress, alert, oriented HEENT: Normocephalic, atraumatic, normal external ears, nose appears normal, no oropharyngeal edema or exudates Eyes: Normal to appearance Neck: Supple, no lymphadenopathy Respiratory: Talks in complete sentences, no respiratory distress, clear to auscultation bilaterally Cardiovascular: Regular rate and rhythm, no murmurs rubs or gallops Abdomen: Soft, generally tender, mildly distended, no guarding, no rebound Back: No CVA tenderness Extremities: No clubbing cyanosis or edema Neurologic: No focal neurologic deficits, cranial nerves 2-12 intact, strength is 5/5 bilaterally Skin: No rash Course Course Course Narrative: RME performed by Ashlee Redd PA-C. Patient is a 61 year old assigned female at presenting to the emergency department with nausea, vomiting, and bleeding in her stool. Labs ordered. Patient placed back in the waiting room pending room availability and results. Reevaluation(s) Reevaluation #1: There is no evidence of anemia on laboratory analysis. Time: 14:30 Medications Administered Discontinued Medications Generic Name Dose Route Start Last Admin Trade Name Sid PRN Reason Stop Dose Admin Iohexol 85 ml 07/10/22 15:20 07/10/22 15:21 Iohexol 350 Mg/Ml 100 Ml Infus..Btl IV 07/10/22 15:21 85 ml ONCE ONE Administration Medical Decision Making Medical Decision Making [facility] Narrative: Patient presents with lower abdominal pain/cramping, bright red blood per rectum. She does have abdominal tenderness with mild distention. The tenderness is without rebound or guarding. Is diffuse. Differential diagnosis could be diverticular in nature. Other ones could be include colitis, IBD, IBS, gastroenteritis. Patient will have CT scan given her abdominal tenderness and history of diverticulosis. Will also rule out anemia, significant electrolyte abnormality or renal dysfunction. Differential Diagnosis Differential Diagnoses: The differential diagnosis associated with the presentation includes (See above) Admission/Observation Consideration of admission/observation: Escalation of care including admission/observation considered Lab Data [facility] Lab Attestation statement: I reviewed the patient's lab results. 07/10/22 13:50 07/10/22 13:50 Labs: Lab Results 07/10/22 07/10/22 07/10/22 Range/Units 13:50 13:50 13:50 WBC 5.1 (4.8-10.8) X10*3/uL RBC 4.70 (4.20-5.50) X10*6/uL Hgb 12.8 (12.0-16.0) g/dl Hct 40.8 (37.0-47.0) % MCV 86.8 (80.0-98.0) fL MCH 27.2 (27.0-33.0) pg MCHC 31.4 (31.0-35.0) g/dl RDW 15.5 (11.0-16.0) % Plt Count 284 (160-400) X10*3/uL MPV 9.9 (9.4-12.3) fL Immature Gran % (Auto) 0.2 (0.0-0.4) % Neut % (Auto) 57.0 (45-73) % Lymph % (Auto) 21.0 (20-40) % Wheeler % (Auto) 17.5 H (2-11) % Eos % (Auto) 3.3 (0-4) % Baso % (Auto) 1.0 (0-2) % Lymph # (Auto) 1.1 L (1.2-4.9) X10*3/uL Wheeler # (Auto) 0.9 (0.1-1.2) X10*3/uL Eos # (Auto) 0.2 (0.0-0.4) X10*3/uL Baso # (Auto) 0.1 (0.0-0.2) X10*3/uL Abs Immat Gran (auto) 0.01 (0.00-0.03) X10*3/uL Absolute Neuts (auto) 2.9 (2.0-8.3) x10*3/uL Absolute Nucleated RBC 0.000 (0.0-0.012) X10*3/uL Nucleated RBC % (auto) 0.0 (0.0-0.2) /100WBC PT 10.6 (10.0-13.1) SEC INR 0.9 (0.9-1.1) APTT 30.7 (26.0-36.4) SEC Sodium 139 (135-145) mmol/L Potassium 4.5 (3.3-5.1) mmol/L Chloride 108 (96-108) mmol/L Carbon Dioxide 24 (22-29) mmol/L Anion Gap 12 (12-20) BUN 13 (9-16) mg/dL Creatinine 0.73 (0.5-1.4) mg/dL Estim Creat Clear Calc 78.6 Estimated GFR > 60 Random Glucose 103 (60-115) mg/dL Calcium 8.9 (8.4-10.2) mg/dL Magnesium 2.0 (1.6-2.6) mg/dL Total Bilirubin 0.2 (0.0-1.0) mg/dL AST 29 (5-31) U/L ALT 28 (0-31) U/L Alkaline Phosphatase 80 (39-117) U/L Total Protein 6.6 (6.5-8.0) g/dL Albumin 3.6 (3.5-5.0) g/dL Independent Interpretation I performed an independent interpretation of an: CT Scan (Diverticulosis without diverticulitis) Radiology Impression Discussion of test interpretation with radiology: I have reviewed the radiologist's reading. Tests considered The following testing was considered but not selected: Ultrasound Prescription Management I considered prescription management with: Pain Medication Discharge Plan Discharge Clinical Impression: Lower abdominal pain, Blood in stool Patient Disposition: Still a Patient Instructions: Rectal Bleeding (ED), Abdominal Pain (ED) Prescriptions: No Action albuterol sulfate [ProAir HFA] 90 mcg/actuation HFA aerosol inhaler 2 puff PO Q6H PRN (Reason: for wheezing) Qty: 8.5 0RF albuterol sulfate 2.5 mg /3 mL (0.083 %) solution for nebulization 2.5 mg inhalation Q4H PRN (Reason: for wheezing) Qty: 150 0RF prednisone 20 mg tablet 40 mg PO DAILY 5 Days Qty: 10 0RF meclizine [Dramamine Less Drowsy] 25 mg tablet 25 mg PO TID PRN (Reason: dizziness) Qty: 20 0RF hydrochlorothiazide 12.5 mg tablet 12.5 mg PO DAILY Qty: 30 0RF acetaminophen 500 mg tablet 500 mg PO QID PRN (Reason: pain) Qty: 20 0RF cyclobenzaprine 10 mg tablet 10 mg PO TID PRN (Reason: muscle spasm) Qty: 7 0RF cyclobenzaprine 10 mg tablet 10 mg PO BEDTIME PRN (Reason: muscle spasm) Qty: 7 0RF sennosides [senna] 8.6 mg tablet 8.6 mg PO BEDTIME Qty: 14 0RF docusate sodium [Colace] 100 mg capsule 100 mg PO BID Qty: 20 0RF polyethylene glycol 3350 [Miralax] 17 gram Powder In Packet 17 g PO BID Qvar 80 mcg/actuation Aerosol 80 mcg INHALATION BID perphenazine 4 mg tablet 4 mg PO BID ibuprofen 600 mg tablet 600 mg PO BID PRN (Reason: headache) Compazine 5 MG tablet 5 mg PO Q8H PRN (Reason: Nausea) PreviDent 5000 Booster 5,000 UNITS packet 1.1 % PO USEASDIRECTD magnesium 100 MG tablet 100 mg PO DAILY doxepin 75 mg capsule 75 mg PO BEDTIME levothyroxine [Levo-T] 75 mcg tablet 75 mcg PO DAILY Adult Multivitamin Gummies 200 mcg tablet,chewable 1 tab PO DAILY omeprazole 20 mg capsule,delayed release(DR/EC) 20 mg PO DAILY midodrine 10 mg tablet 5 mg PO TID Rx Instructions: do not give last dose of day after 6PM or within 4 hrs of bedtime estazolam 1 mg tablet 3 mg PO BEDTIME Flovent HFA 220 mcg/actuation HFA aerosol inhaler 2 puff inhalation BID pyridoxine (vitamin B6) 100 mg tablet 100 mg PO DAILY 90 Days Qty: 90 3RF alendronate 70 mg tablet 70 mg PO QWEEK cholecalciferol (vitamin D3) 25 mcg (1,000 unit) tablet 25 mcg PO DAILY Referrals: Name,MD Gregg [Primary Care Provider] - 3 days
[2022-07-10 13:55] LABS: MANUAL DIFF FLAG NO
[2022-07-10 14:03] LABS: Basophils Absolute Auto 0.1 X10*3/uL (0.0-0.2); Eosinophils Absolute Auto 0.2 X10*3/uL (0.0-0.4); Eosinophils Percent Auto 3.3 % (0-4); Hematocrit 40.8 % (37.0-47.0); Hemoglobin 12.8 g/dl (12.0-16.0); Imm Gran Abs Auto 0.01 X10*3/uL (0.00-0.03); Imm Gran Pct Auto 0.2 % (0.0-0.4); Lymphocytes Absolute Auto 1.1 X10*3/uL (1.2-4.9); Mean Corpuscular HGB Conc 31.4 g/dl (31.0-35.0); Mean Corpuscular Hemoglobin 27.2 pg (27.0-33.0); Mean Corpuscular Volume 86.8 fL (80.0-98.0); Mean Platelet Volume 9.9 fL (9.4-12.3); Monocytes Absolute Auto 0.9 X10*3/uL (0.1-1.2); Monocytes Percent Auto 17.5 % (2-11); Neutrophils Absolute Auto 2.9 x10*3/uL (2.0-8.3); Platelet Count 284 X10*3/uL (160-400); Red Cell Distribution Width 15.5 % (11.0-16.0); White Blood Count 5.1 X10*3/uL (4.8-10.8)
[2022-07-10 14:08] LABS: INTERNATIONAL NORM RATIO 0.9 (0.9-1.1); Prothrombin Time 10.6 SEC (10.0-13.1)
[2022-07-10 14:11] LABS: Partial Thromboplastin Time 30.7 SEC (26.0-36.4)
[2022-07-10 14:12] VITALS: BP 118/67; PULSE 78; RESP 18; TEMP 37.1; O2SAT 100
[2022-07-10 14:17] LABS: Alanine Aminotransferase 28 U/L (0-31); Albumin Level 3.6 g/dL (3.5-5.0); Alkaline Phosphatase 80 U/L (39-117); Anion Gap 12 (12-20); Aspartate Amino Transferase 29 U/L (5-31); Bilirubin Total 0.2 mg/dL (0.0-1.0); Blood Urea Nitrogen 13 mg/dL (9-16); Calcium 8.9 mg/dL (8.4-10.2); Carbon Dioxide 24 mmol/L (22-29); Chloride 108 mmol/L (96-108); Creatinine Clr Calc Pharmacy 78.6; Estimated Glomerular Filt Rate > 60; Glucose Random 103 mg/dL (60-115); Potassium 4.5 mmol/L (3.3-5.1); Sodium 139 mmol/L (135-145); Total Protein 6.6 g/dL (6.5-8.0)
[2022-07-10] MEDS: iohexoL 350 MG/ML 100 ML INFUS..BTL 85 ML IV (15:21)
[2022-07-10] MEDS: Butalb/Acetamin/Caff 50/325/40 TABLET 1 TAB PO (17:34)
== END 2022-07-10 17:43 | disposition home or self-care (01) ==
PROVIDERS: Physician Assistant Medical; Emergency Provider Internal Medicine; PCP Internal Medicine Geriatric Medicine
DX: R10.30 Lower abdominal pain, unspecified (principal); K92.1 Melena
CPT/HCPCS: 36415; 74177; 80053; 83735; 85025; 85610; 85730; 99284; Q9967

== ENCOUNTER 2022-08-15 20:24 | Emergency (ER) | payer MEDICAID, SELFPAY ==
[2022-08-15 20:27] VITALS: BP 129/76; PULSE 89; RESP 18; TEMP 36.1; O2SAT 98; BMI 31.0
--- NOTE | 2022-08-15 20:29 | ED.GENADULT ---
HPI - General Adult General Chief complaint: Abdominal Pain Stated complaint: vomiting, blood in stool Time Seen by Provider: 08/15/22 22:56 Related Data Home Medications Medication Instructions Recorded Confirmed doxepin 75 mg capsule 75 mg PO BEDTIME 11/22/19 06/23/22 levothyroxine 75 mcg tablet 75 mcg PO DAILY 11/22/19 06/23/22 (Levo-T) midodrine 10 mg tablet 5 mg PO TID 11/22/19 06/23/22 multivitamin with minerals-folic 1 tab PO DAILY 11/22/19 06/23/22 acid 200 mcg chewable tablet (Adult Multivitamin Gummies) omeprazole 20 mg capsule,delayed 20 mg PO DAILY 11/22/19 06/23/22 release estazolam 1 mg tablet 3 mg PO BEDTIME 06/06/20 06/23/22 fluticasone propionate 220 2 puff inhalation BID 12/30/20 06/23/22 mcg/actuation HFA aerosol inhaler (Flovent HFA) alendronate 70 mg tablet 70 mg PO QWEEK 06/03/22 06/23/22 cholecalciferol (vitamin D3) 25 25 mcg PO DAILY 06/03/22 06/23/22 mcg (1,000 unit) tablet Compazine 5 mg PO Q8H PRN Nausea 06/04/22 06/23/22 PreviDent 5000 Booster 1.1 % PO USEASDIRECTD 06/04/22 06/23/22 beclomethasone dipropionate 80 80 mcg inhalation BID 06/04/22 06/23/22 mcg/actuation aerosol inhaler ibuprofen 600 mg tablet 600 mg PO BID PRN headache 06/04/22 06/23/22 magnesium 100 mg PO DAILY 06/04/22 06/23/22 perphenazine 4 mg tablet 4 mg PO BID 06/04/22 06/23/22 polyethylene glycol 3350 17 gram 17 g PO BID 06/04/22 06/23/22 oral powder packet (Miralax) Previous Rx's Medication Instructions Recorded hydrochlorothiazide 12.5 mg tablet 12.5 mg PO DAILY #30 tabs 12/19/20 meclizine 25 mg tablet (Dramamine 25 mg PO TID PRN dizziness #20 tabs 12/19/20 Less Drowsy) acetaminophen 500 mg tablet 500 mg PO QID PRN pain #20 tabs 03/25/21 cyclobenzaprine 10 mg tablet 10 mg PO TID PRN muscle spasm #7 03/25/21 tabs pyridoxine (vitamin B6) 100 mg 100 mg PO DAILY 90 days #90 tabs 05/15/21 tablet cyclobenzaprine 10 mg tablet 10 mg PO BEDTIME PRN muscle spasm 10/28/21 #7 tabs docusate sodium 100 mg capsule 100 mg PO BID #20 caps 10/28/21 (Colace) sennosides 8.6 mg tablet (senna) 8.6 mg PO BEDTIME #14 tabs 10/28/21 prednisone 20 mg tablet 40 mg PO DAILY 5 days #10 tabs 05/08/22 albuterol sulfate 2.5 mg/3 mL 2.5 mg (3 mL) inhalation Q4H PRN 08/13/22 (0.083 %) solution for nebulization for wheezing #150 mL albuterol sulfate 90 mcg/actuation 2 puff PO Q6H PRN for wheezing #18 08/13/22 aerosol inhaler (Ventolin HFA) grams Allergies Allergy/AdvReac Type Severity Reaction Status Date / Time nalbuphine [From Nubain] Allergy Severe Anaphylaxis Verified 07/10/22 13:20 [facility] Past Medical History Medical History Acid reflux Bronchial asthma Colon polyp COVID-19 vaccine administered Crystal arthropathy Diverticulosis of colon Kidney calculi Kidney tumor Migraine Pseudotumor cerebri Right shoulder injury Syncope Thyroid disease Surgical History History of esophagogastroduodenoscopy (EGD) History of hysterectomy History of surgery on wrist Hx laparoscopic cholecystectomy Hx of colonoscopy Hx of gastric bypass (03/12/15) Previous section Family History Family History Father Heart disease History of open heart surgery Mother Heart disease Social History Social History Household Members: None Household Members Other:: alone Are you a primary health care administrator to a significant other at home: No Do you presently have visiting nurse or other home services: No Alcohol intake: former Patient Tobacco Use Status: Former Tobacco user service: No Current occupational status: disabled Physical Exam ED Vital Signs: BMI result Body Mass Index 31.0 Course Course Course Narrative: RME performed by Ashlee Redd PA-C. Patient is a 61 year old assigned female at presenting to the emergency department with bloody stools. Labs ordered. Patient placed back in the waiting room pending room availability and results. Patient was seen and treated by Dr. Christopher who created, completed, and signed his own note - please refer to his note. Medical Decision Making Lab Data 08/15/22 20:59 08/15/22 20:58 Labs: Lab Results 08/15/22 08/15/22 08/15/22 Range/Units 20:58 20:59 20:59 WBC 9.2 (4.8-10.8) X10*3/uL RBC 4.68 (4.20-5.50) X10*6/uL Hgb 12.7 (12.0-16.0) g/dl Hct 40.0 (37.0-47.0) % MCV 85.5 (80.0-98.0) fL MCH 27.1 (27.0-33.0) pg MCHC 31.8 (31.0-35.0) g/dl RDW 15.6 (11.0-16.0) % Plt Count 295 (160-400) X10*3/uL MPV 10.4 (9.4-12.3) fL Immature Gran % (Auto) 0.2 (0.0-0.4) % Neut % (Auto) 66.4 (45-73) % Lymph % (Auto) 20.3 (20-40) % Mccracken % (Auto) 11.1 H (2-11) % Eos % (Auto) 1.5 (0-4) % Baso % (Auto) 0.5 (0-2) % Lymph # (Auto) 1.9 (1.2-4.9) X10*3/uL Mccracken # (Auto) 1.0 (0.1-1.2) X10*3/uL Eos # (Auto) 0.1 (0.0-0.4) X10*3/uL Baso # (Auto) 0.1 (0.0-0.2) X10*3/uL Abs Immat Gran (auto) 0.02 (0.00-0.03) X10*3/uL Absolute Neuts (auto) 6.1 (2.0-8.3) x10*3/uL Absolute Nucleated RBC 0.000 (0.0-0.012) X10*3/uL Nucleated RBC % (auto) 0.0 (0.0-0.2) /100WBC PT 11.4 (10.0-13.1) SEC INR 1.0 (0.9-1.1) APTT 32.5 (26.0-36.4) SEC Sodium 143 (135-145) mmol/L Potassium 4.6 (3.3-5.1) mmol/L Chloride 106 (96-108) mmol/L Carbon Dioxide 24 (22-29) mmol/L Anion Gap 18 (12-20) BUN 18 H (9-16) mg/dL Creatinine 0.94 (0.5-1.4) mg/dL Estim Creat Clear Calc 61.0 Estimated GFR > 60 Random Glucose 95 (60-115) mg/dL Calcium 9.4 (8.4-10.2) mg/dL Magnesium 2.3 (1.6-2.6) mg/dL Total Bilirubin 0.4 (0.0-1.0) mg/dL AST 44 H (5-31) U/L ALT 30 (0-31) U/L Alkaline Phosphatase 77 (39-117) U/L Total Protein 7.5 (6.5-8.0) g/dL Albumin 3.8 (3.5-5.0) g/dL Urine Color Urine Appearance Urine pH (5.0-9.0) Ur Specific Magnolia (1.005-1.025) Urine Protein (Neg-Trace) mg/dL Urine Glucose (UA) (Negative) mg/dL Urine Ketones (Negative) mg/dL Urine Blood (Negative) Urine Nitrite (Negative) Ur Leukocyte Esterase (Negative) Urine RBC (0-2) /HPF Urine WBC (0-5) /HPF Ur Squamous Epith Cells (0-2) /HPF Urine Bacteria (None Seen) Hyaline Casts (0-2) /LPF Stool Occult Blood (NEGATIVE) 08/15/22 08/15/22 Range/Units 23:32 23:48 WBC (4.8-10.8) X10*3/uL RBC (4.20-5.50) X10*6/uL Hgb (12.0-16.0) g/dl Hct (37.0-47.0) % MCV (80.0-98.0) fL MCH (27.0-33.0) pg MCHC (31.0-35.0) g/dl RDW (11.0-16.0) % Plt Count (160-400) X10*3/uL MPV (9.4-12.3) fL Immature Gran % (Auto) (0.0-0.4) % Neut % (Auto) (45-73) % Lymph % (Auto) (20-40) % Mccracken % (Auto) (2-11) % Eos % (Auto) (0-4) % Baso % (Auto) (0-2) % Lymph # (Auto) (1.2-4.9) X10*3/uL Mccracken # (Auto) (0.1-1.2) X10*3/uL Eos # (Auto) (0.0-0.4) X10*3/uL Baso # (Auto) (0.0-0.2) X10*3/uL Abs Immat Gran (auto) (0.00-0.03) X10*3/uL Absolute Neuts (auto) (2.0-8.3) x10*3/uL Absolute Nucleated RBC (0.0-0.012) X10*3/uL Nucleated RBC % (auto) (0.0-0.2) /100WBC PT (10.0-13.1) SEC INR (0.9-1.1) APTT (26.0-36.4) SEC Sodium (135-145) mmol/L Potassium (3.3-5.1) mmol/L Chloride (96-108) mmol/L Carbon Dioxide (22-29) mmol/L Anion Gap (12-20) BUN (9-16) mg/dL Creatinine (0.5-1.4) mg/dL Estim Creat Clear Calc Estimated GFR Random Glucose (60-115) mg/dL Calcium (8.4-10.2) mg/dL Magnesium (1.6-2.6) mg/dL Total Bilirubin (0.0-1.0) mg/dL AST (5-31) U/L ALT (0-31) U/L Alkaline Phosphatase (39-117) U/L Total Protein (6.5-8.0) g/dL Albumin (3.5-5.0) g/dL Urine Color Yellow Urine Appearance Clear Urine pH 6.5 (5.0-9.0) Ur Specific Magnolia 1.015 (1.005-1.025) Urine Protein Negative (Neg-Trace) mg/dL Urine Glucose (UA) Negative (Negative) mg/dL Urine Ketones Negative (Negative) mg/dL Urine Blood Negative (Negative) Urine Nitrite Negative (Negative) Ur Leukocyte Esterase Trace H (Negative) Urine RBC 3-5 H (0-2) /HPF Urine WBC 0-5 (0-5) /HPF Ur Squamous Epith Cells 0-2 (0-2) /HPF Urine Bacteria None Seen (None Seen) Hyaline Casts 0-2 (0-2) /LPF Stool Occult Blood NEGATIVE (NEGATIVE) Discharge Plan Discharge Clinical Impression: Abdominal pain Patient Disposition: Home, Self-Care Instructions: Acute Abdominal Pain (ED) Prescriptions: No Action albuterol sulfate [Ventolin HFA] 90 mcg/actuation HFA aerosol inhaler 2 puff PO Q6H PRN (Reason: for wheezing) Qty: 18 0RF albuterol sulfate 2.5 mg /3 mL (0.083 %) solution for nebulization 2.5 mg inhalation Q4H PRN (Reason: for wheezing) Qty: 150 0RF prednisone 20 mg tablet 40 mg PO DAILY 5 Days Qty: 10 0RF meclizine [Dramamine Less Drowsy] 25 mg tablet 25 mg PO TID PRN (Reason: dizziness) Qty: 20 0RF hydrochlorothiazide 12.5 mg tablet 12.5 mg PO DAILY Qty: 30 0RF acetaminophen 500 mg tablet 500 mg PO QID PRN (Reason: pain) Qty: 20 0RF cyclobenzaprine 10 mg tablet 10 mg PO TID PRN (Reason: muscle spasm) Qty: 7 0RF cyclobenzaprine 10 mg tablet 10 mg PO BEDTIME PRN (Reason: muscle spasm) Qty: 7 0RF sennosides [senna] 8.6 mg tablet 8.6 mg PO BEDTIME Qty: 14 0RF docusate sodium [Colace] 100 mg capsule 100 mg PO BID Qty: 20 0RF polyethylene glycol 3350 [Miralax] 17 gram Powder In Packet 17 g PO BID Qvar 80 mcg/actuation Aerosol 80 mcg INHALATION BID perphenazine 4 mg tablet 4 mg PO BID ibuprofen 600 mg tablet 600 mg PO BID PRN (Reason: headache) Compazine 5 MG tablet 5 mg PO Q8H PRN (Reason: Nausea) PreviDent 5000 Booster 5,000 UNITS packet 1.1 % PO USEASDIRECTD magnesium 100 MG tablet 100 mg PO DAILY doxepin 75 mg capsule 75 mg PO BEDTIME levothyroxine [Levo-T] 75 mcg tablet 75 mcg PO DAILY Adult Multivitamin Gummies 200 mcg tablet,chewable 1 tab PO DAILY omeprazole 20 mg capsule,delayed release(DR/EC) 20 mg PO DAILY midodrine 10 mg tablet 5 mg PO TID Rx Instructions: do not give last dose of day after 6PM or within 4 hrs of bedtime estazolam 1 mg tablet 3 mg PO BEDTIME Flovent HFA 220 mcg/actuation HFA aerosol inhaler 2 puff inhalation BID pyridoxine (vitamin B6) 100 mg tablet 100 mg PO DAILY 90 Days Qty: 90 3RF alendronate 70 mg tablet 70 mg PO QWEEK cholecalciferol (vitamin D3) 25 mcg (1,000 unit) tablet 25 mcg PO DAILY Referrals: Alla Conner MD [Physician] - Interventions: ED Discharge Assessment Last Done: 08/16/22 04:16 Discharge Date/Time: 08/16/22 04:16
[2022-08-15 21:04] VITALS: BP 133/74; PULSE 88; RESP 18; TEMP 36.9; O2SAT 98
[2022-08-15 21:58] VITALS: BP 149/78; PULSE 75; RESP 18; TEMP 36.3; O2SAT 100
--- NOTE | 2022-08-16 00:12 | PC.NURSE ---
Patient continues to c/o intermittent RUQ pain 5/10 on 0-10 pain scale, no nausea, no vomiting at present. Dr. Christopher notified.
--- NOTE | 2022-08-16 01:06 | ED.ABDPAIN ---
HPI - Abdominal Pain General Chief Complaint: Abdominal Pain Stated Complaint: vomiting, blood in stool Time Seen by Provider: 08/15/22 22:56 Source: patient Mode of arrival: ambulatory Limitations: no limitations History of Present Illness HPI narrative: 61-year-old female came in for evaluation upper abdominal pain, vomiting, bright red blood from the rectum while she was wiping. Patient's symptoms started few months ago waxes and wanes, no exacerbating or relieving features, pain is mostly to the right upper quadrant area radiates down to the right lower extremity associated with lower extremities muscle cramp. No fever, chills, no dysuria, no frequency urination, no hematuria. Last bowel movement was this morning, passing flatus, past surgical history is significant for cholecystectomy, gastric sleeve, and hysterectomy. Related Data Home Medications Medication Instructions Recorded Confirmed doxepin 75 mg capsule 75 mg PO BEDTIME 11/22/19 06/23/22 levothyroxine 75 mcg tablet 75 mcg PO DAILY 11/22/19 06/23/22 (Levo-T) midodrine 10 mg tablet 5 mg PO TID 11/22/19 06/23/22 multivitamin with minerals-folic 1 tab PO DAILY 11/22/19 06/23/22 acid 200 mcg chewable tablet (Adult Multivitamin Gummies) omeprazole 20 mg capsule,delayed 20 mg PO DAILY 11/22/19 06/23/22 release estazolam 1 mg tablet 3 mg PO BEDTIME 06/06/20 06/23/22 fluticasone propionate 220 2 puff inhalation BID 12/30/20 06/23/22 mcg/actuation HFA aerosol inhaler (Flovent HFA) alendronate 70 mg tablet 70 mg PO QWEEK 06/03/22 06/23/22 cholecalciferol (vitamin D3) 25 25 mcg PO DAILY 06/03/22 06/23/22 mcg (1,000 unit) tablet Compazine 5 mg PO Q8H PRN Nausea 06/04/22 06/23/22 PreviDent 5000 Booster 1.1 % PO USEASDIRECTD 06/04/22 06/23/22 beclomethasone dipropionate 80 80 mcg inhalation BID 06/04/22 06/23/22 mcg/actuation aerosol inhaler ibuprofen 600 mg tablet 600 mg PO BID PRN headache 06/04/22 06/23/22 magnesium 100 mg PO DAILY 06/04/22 06/23/22 perphenazine 4 mg tablet 4 mg PO BID 06/04/22 06/23/22 polyethylene glycol 3350 17 gram 17 g PO BID 06/04/22 06/23/22 oral powder packet (Miralax) Previous Rx's Medication Instructions Recorded hydrochlorothiazide 12.5 mg tablet 12.5 mg PO DAILY #30 tabs 12/19/20 meclizine 25 mg tablet (Dramamine 25 mg PO TID PRN dizziness #20 tabs 12/19/20 Less Drowsy) acetaminophen 500 mg tablet 500 mg PO QID PRN pain #20 tabs 03/25/21 cyclobenzaprine 10 mg tablet 10 mg PO TID PRN muscle spasm #7 03/25/21 tabs pyridoxine (vitamin B6) 100 mg 100 mg PO DAILY 90 days #90 tabs 05/15/21 tablet cyclobenzaprine 10 mg tablet 10 mg PO BEDTIME PRN muscle spasm 10/28/21 #7 tabs docusate sodium 100 mg capsule 100 mg PO BID #20 caps 10/28/21 (Colace) sennosides 8.6 mg tablet (senna) 8.6 mg PO BEDTIME #14 tabs 10/28/21 prednisone 20 mg tablet 40 mg PO DAILY 5 days #10 tabs 05/08/22 albuterol sulfate 2.5 mg/3 mL 2.5 mg (3 mL) inhalation Q4H PRN 08/13/22 (0.083 %) solution for nebulization for wheezing #150 mL albuterol sulfate 90 mcg/actuation 2 puff PO Q6H PRN for wheezing #18 08/13/22 aerosol inhaler (Ventolin HFA) grams Allergies Allergy/AdvReac Type Severity Reaction Status Date / Time nalbuphine [From Nubain] Allergy Severe Anaphylaxis Verified 07/10/22 13:20 Review of Systems Review of Systems All other systems are reviewed and are negative Constitutional: Reports as per HPI and Reports no additional constitutional complaints Eyes: Reports as per HPI and Reports no additional eye complaints Reports system reviewed and no additional complaints, except as documented Cardiovascular: Reports as per HPI and Reports no additional cardiovascular complaints Respiratory: Reports as per HPI and Reports no additional respiratory complaints Gastrointestinal: Reports as per HPI and Reports no additional gastrointestinal complaints Genitourinary: Reports no additional female genitourinary complaints Musculoskeletal: Reports no additional musculoskeletal complaints Skin/Breast: Reports system reviewed and no additional complaints, except as docu Psychiatric: Reports no additional psychiatric complaints Endocrine: Reports no additional endocrine complaints Hematologic/Lymphatic: Reports no additional hematologic/lymphatic complaints Allergic/Immunologic: Reports no additional allergic/immunologic complaints Reports system reviewed and no additional complaints, except as documented and Reports Abnormal speech present [facility] Past Medical History Medical History Acid reflux Bronchial asthma Colon polyp COVID-19 vaccine administered Crystal arthropathy Diverticulosis of colon Kidney calculi Kidney tumor Migraine Pseudotumor cerebri Right shoulder injury Syncope Thyroid disease Surgical History History of esophagogastroduodenoscopy (EGD) History of hysterectomy History of surgery on wrist Hx laparoscopic cholecystectomy Hx of colonoscopy Hx of gastric bypass (03/12/15) Previous section Family History Family History Father Heart disease History of open heart surgery Mother Heart disease Social History Social History Household Members: None Household Members Other:: alone Are you a primary overnight caregiver to a significant other at home: No Do you presently have visiting nurse or other home services: No Alcohol intake: former Patient Tobacco Use Status: Former Tobacco user Smoked in Last 30 Days: No Use of substances other than those prescribed or required for medical reasons: No Advance Directives: No Advance Directives Information Provided: No Patient : No service: No Current occupational status: disabled Physical Exam ED Vital Signs: Vital Signs - 24 hr 08/15/22 20:27 08/15/22 21:04 08/15/22 21:58 Temperature 96.9 F 98.4 F 97.4 F Pulse Rate 89 88 75 Respiratory Rate 18 18 18 Blood Pressure 129/76 133/74 149/78 H Pulse Oximetry 98 98 100 Oxygen Delivery Method Room Air Room Air Room Air BMI result Body Mass Index 31.0 Vital signs have been reviewed as appeared to be correct. Blood pressure normal. Heart rate normal. Respiration rate normal. Temperature normal. Oxygen saturation normal. Appearance: Alert. Oriented X3. No acute distress. Head: Normal external exam. Normocephalic. Atraumatic. No Benitez signs noted. No raccoon eyes noted Eyes: PERRLA. EOMI. Conjunctiva and sclera normal. Eyelids normal. ENT: TM's Normal. Pharynx normal. Uvula midline. Moist mucous membranes. No trismus noted. No drooling noted. No muffled voice noted. Neck: Normal inspection. Neck supple. FROM. No adenopathy. Thyroid Normal. No meningeal signs. No neck mass noted. CVS: Normal heart rate and rhythm. Heart sound normal. No murmurs noted. Pulses normal throughout. Respiratory: No respiratory distress. Painless inspiration. Breath sounds normal. No wheezes/rales/rhonchi noted. Chest nontender. No accessory muscle usage noted or decreased air movement noted. Abdomen: Soft and nontender. Bowel sounds normal in all 4 quadrants. No distention noted. No organomegaly noted. No visible injury noted. Rectal exam: No visualized external hemorrhoid, no palpable internal hemorrhoid, no active bleeding, stool is brown guaiac negative. Back: No CVA tenderness. Full range of motion noted. Skin: Skin warm and dry. Normal skin color. Normal skin turgor. No rashes/lesions/lacerations noted. Extremities: No lower extremity edema. Extremities exhibit normal range of motion. Extremities nontender. Neuro: Oriented X 3. Cranial nerve exam: II-XII are grossly intact No motor deficit. No sensory deficit. Reflexes normal. Course Course Course Narrative: 61-year-old female came in for evaluation of acute on chronic abdominal pain, patient reported bright red blood per rectum today which is resolved, hemodynamically stable, H&H are stable. Will discharge the patient to follow-up with truck sales representative for possible upper/lower endoscopy. Medical Decision Making Differential Diagnosis Differential Diagnoses: The differential diagnosis associated with the presentation includes (Colitis, diverticulitis, acute appendicitis, SBO, electrolyte abnormalities, dehydration, anemia, UTI.) Admission/Observation Consideration of admission/observation: Escalation of care including admission/observation considered Lab Data MDM Lab Attestation statement: I reviewed the patient's lab results. 08/15/22 20:59 08/15/22 20:58 Labs: Lab Results 08/15/22 08/15/22 08/15/22 Range/Units 20:58 20:59 20:59 WBC 9.2 (4.8-10.8) X10*3/uL RBC 4.68 (4.20-5.50) X10*6/uL Hgb 12.7 (12.0-16.0) g/dl Hct 40.0 (37.0-47.0) % MCV 85.5 (80.0-98.0) fL MCH 27.1 (27.0-33.0) pg MCHC 31.8 (31.0-35.0) g/dl RDW 15.6 (11.0-16.0) % Plt Count 295 (160-400) X10*3/uL MPV 10.4 (9.4-12.3) fL Immature Gran % (Auto) 0.2 (0.0-0.4) % Neut % (Auto) 66.4 (45-73) % Lymph % (Auto) 20.3 (20-40) % [place] % (Auto) 11.1 H (2-11) % Eos % (Auto) 1.5 (0-4) % Baso % (Auto) 0.5 (0-2) % Lymph # (Auto) 1.9 (1.2-4.9) X10*3/uL [place] # (Auto) 1.0 (0.1-1.2) X10*3/uL Eos # (Auto) 0.1 (0.0-0.4) X10*3/uL Baso # (Auto) 0.1 (0.0-0.2) X10*3/uL Abs Immat Gran (auto) 0.02 (0.00-0.03) X10*3/uL Absolute Neuts (auto) 6.1 (2.0-8.3) x10*3/uL Absolute Nucleated RBC 0.000 (0.0-0.012) X10*3/uL Nucleated RBC % (auto) 0.0 (0.0-0.2) /100WBC PT 11.4 (10.0-13.1) SEC INR 1.0 (0.9-1.1) APTT 32.5 (26.0-36.4) SEC Sodium 143 (135-145) mmol/L Potassium 4.6 (3.3-5.1) mmol/L Chloride 106 (96-108) mmol/L Carbon Dioxide 24 (22-29) mmol/L Anion Gap 18 (12-20) BUN 18 H (9-16) mg/dL Creatinine 0.94 (0.5-1.4) mg/dL Estim Creat Clear Calc 61.0 Estimated GFR > 60 Random Glucose 95 (60-115) mg/dL Calcium 9.4 (8.4-10.2) mg/dL Magnesium 2.3 (1.6-2.6) mg/dL Total Bilirubin 0.4 (0.0-1.0) mg/dL AST 44 H (5-31) U/L ALT 30 (0-31) U/L Alkaline Phosphatase 77 (39-117) U/L Total Protein 7.5 (6.5-8.0) g/dL Albumin 3.8 (3.5-5.0) g/dL Urine Color Urine Appearance Urine pH (5.0-9.0) Ur Specific Cope (1.005-1.025) Urine Protein (Neg-Trace) mg/dL Urine Glucose (UA) (Negative) mg/dL Urine Ketones (Negative) mg/dL Urine Blood (Negative) Urine Nitrite (Negative) Ur Leukocyte Esterase (Negative) Urine RBC (0-2) /HPF Urine WBC (0-5) /HPF Ur Squamous Epith Cells (0-2) /HPF Urine Bacteria (None Seen) Hyaline Casts (0-2) /LPF Stool Occult Blood (NEGATIVE) 08/15/22 08/15/22 Range/Units 23:32 23:48 WBC (4.8-10.8) X10*3/uL RBC (4.20-5.50) X10*6/uL Hgb (12.0-16.0) g/dl Hct (37.0-47.0) % MCV (80.0-98.0) fL MCH (27.0-33.0) pg MCHC (31.0-35.0) g/dl RDW (11.0-16.0) % Plt Count (160-400) X10*3/uL MPV (9.4-12.3) fL Immature Gran % (Auto) (0.0-0.4) % Neut % (Auto) (45-73) % Lymph % (Auto) (20-40) % [place] % (Auto) (2-11) % Eos % (Auto) (0-4) % Baso % (Auto) (0-2) % Lymph # (Auto) (1.2-4.9) X10*3/uL [place] # (Auto) (0.1-1.2) X10*3/uL Eos # (Auto) (0.0-0.4) X10*3/uL Baso # (Auto) (0.0-0.2) X10*3/uL Abs Immat Gran (auto) (0.00-0.03) X10*3/uL Absolute Neuts (auto) (2.0-8.3) x10*3/uL Absolute Nucleated RBC (0.0-0.012) X10*3/uL Nucleated RBC % (auto) (0.0-0.2) /100WBC PT (10.0-13.1) SEC INR (0.9-1.1) APTT (26.0-36.4) SEC Sodium (135-145) mmol/L Potassium (3.3-5.1) mmol/L Chloride (96-108) mmol/L Carbon Dioxide (22-29) mmol/L Anion Gap (12-20) BUN (9-16) mg/dL Creatinine (0.5-1.4) mg/dL Estim Creat Clear Calc Estimated GFR Random Glucose (60-115) mg/dL Calcium (8.4-10.2) mg/dL Magnesium (1.6-2.6) mg/dL Total Bilirubin (0.0-1.0) mg/dL AST (5-31) U/L ALT (0-31) U/L Alkaline Phosphatase (39-117) U/L Total Protein (6.5-8.0) g/dL Albumin (3.5-5.0) g/dL Urine Color Yellow Urine Appearance Clear Urine pH 6.5 (5.0-9.0) Ur Specific Cope 1.015 (1.005-1.025) Urine Protein Negative (Neg-Trace) mg/dL Urine Glucose (UA) Negative (Negative) mg/dL Urine Ketones Negative (Negative) mg/dL Urine Blood Negative (Negative) Urine Nitrite Negative (Negative) Ur Leukocyte Esterase Trace H (Negative) Urine RBC 3-5 H (0-2) /HPF Urine WBC 0-5 (0-5) /HPF Ur Squamous Epith Cells 0-2 (0-2) /HPF Urine Bacteria None Seen (None Seen) Hyaline Casts 0-2 (0-2) /LPF Stool Occult Blood NEGATIVE (NEGATIVE) Independent Interpretation I performed an independent interpretation of an: CT Scan (Abdomen: No acute intra-abdominal pathology.) Radiology Impression Discussion of test interpretation with radiology: I have reviewed the radiologist's reading. Discharge Plan Discharge Clinical Impression: Abdominal pain Patient Disposition: Home, Self-Care Instructions: Acute Abdominal Pain (ED) Prescriptions: No Action albuterol sulfate [Ventolin HFA] 90 mcg/actuation HFA aerosol inhaler 2 puff PO Q6H PRN (Reason: for wheezing) Qty: 18 0RF albuterol sulfate 2.5 mg /3 mL (0.083 %) solution for nebulization 2.5 mg inhalation Q4H PRN (Reason: for wheezing) Qty: 150 0RF prednisone 20 mg tablet 40 mg PO DAILY 5 Days Qty: 10 0RF meclizine [Dramamine Less Drowsy] 25 mg tablet 25 mg PO TID PRN (Reason: dizziness) Qty: 20 0RF hydrochlorothiazide 12.5 mg tablet 12.5 mg PO DAILY Qty: 30 0RF acetaminophen 500 mg tablet 500 mg PO QID PRN (Reason: pain) Qty: 20 0RF cyclobenzaprine 10 mg tablet 10 mg PO TID PRN (Reason: muscle spasm) Qty: 7 0RF cyclobenzaprine 10 mg tablet 10 mg PO BEDTIME PRN (Reason: muscle spasm) Qty: 7 0RF sennosides [senna] 8.6 mg tablet 8.6 mg PO BEDTIME Qty: 14 0RF docusate sodium [Colace] 100 mg capsule 100 mg PO BID Qty: 20 0RF polyethylene glycol 3350 [Miralax] 17 gram Powder In Packet 17 g PO BID Qvar 80 mcg/actuation Aerosol 80 mcg INHALATION BID perphenazine 4 mg tablet 4 mg PO BID ibuprofen 600 mg tablet 600 mg PO BID PRN (Reason: headache) Compazine 5 MG tablet 5 mg PO Q8H PRN (Reason: Nausea) PreviDent 5000 Booster 5,000 UNITS packet 1.1 % PO USEASDIRECTD magnesium 100 MG tablet 100 mg PO DAILY doxepin 75 mg capsule 75 mg PO BEDTIME levothyroxine [Levo-T] 75 mcg tablet 75 mcg PO DAILY Adult Multivitamin Gummies 200 mcg tablet,chewable 1 tab PO DAILY omeprazole 20 mg capsule,delayed release(DR/EC) 20 mg PO DAILY midodrine 10 mg tablet 5 mg PO TID Rx Instructions: do not give last dose of day after 6PM or within 4 hrs of bedtime estazolam 1 mg tablet 3 mg PO BEDTIME Flovent HFA 220 mcg/actuation HFA aerosol inhaler 2 puff inhalation BID pyridoxine (vitamin B6) 100 mg tablet 100 mg PO DAILY 90 Days Qty: 90 3RF alendronate 70 mg tablet 70 mg PO QWEEK cholecalciferol (vitamin D3) 25 mcg (1,000 unit) tablet 25 mcg PO DAILY Referrals: Alla Conner MD [Physician] -
[2022-08-16 03:51] VITALS: BP 91/45; PULSE 71; RESP 15; TEMP 36.8; O2SAT 98
== END 2022-08-16 04:16 | disposition home or self-care (01) ==
PROVIDERS: Emergency Provider Emergency Medicine; PCP Internal Medicine Geriatric Medicine
DX: R10.9 Unspecified abdominal pain (principal); K62.5 Hemorrhage of anus and rectum; Z90.49 Acquired absence of other specified parts of digestive tract; Z90.710 Acquired absence of both cervix and uterus; Z98.84 Bariatric surgery status; Z79.899 Other long term (current) drug therapy
CPT/HCPCS: 36415; 74176; 80053; 81001; 82272; 83735; 85025; 85610; 85730; 99284

== ENCOUNTER 2022-08-25 08:22 | Outpatient (AMB) | payer MEDICAID, SELFPAY ==
--- NOTE | 2022-08-25 08:40 | MHC.OFFVIS ---
Intake Vital Signs 08/25/22 08:46 Height 5 ft 3 in BP 130/74 Blood Pressure Location Lt brachial Position Sitting Pulse 76 Intake Visit Reasons: ER fu Intake Note: Patient ER follow up for Diverticulosis and CT Abdomen/Pelvic results Patient cc: N/V, abdominal pain/bloating, Dysphagia, between diarrhea and constipation with blood. 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: No Accompanied by: Self / Same As Patient Allergies nalbuphine [From Nubain] Allergy (Severe, Verified 08/25/22 08:37) Anaphylaxis Medication List - Last Reconciled 08/25/22 by Maria Elena Land PA-C albuterol sulfate 2.5 mg (3 mL) inhalation Q4H PRN albuterol sulfate 90 mcg/actuation (Ventolin HFA) 2 puffs PO Q6H PRN alendronate 70 mg PO QWEEK beclomethasone dipropionate 80 mcg/actuation 80 mcg inhalation BID cholecalciferol (vitamin D3) 25 mcg PO DAILY cyclobenzaprine 10 mg PO BEDTIME PRN doxepin 75 mg PO BEDTIME estazolam 3 mg PO BEDTIME fluticasone propionate 220 mcg/actuation (Flovent HFA) 2 puffs inhalation BID ibuprofen 600 mg PO BID PRN levothyroxine (Levo-T) 75 mcg PO DAILY [magnesium 100 mg PO DAILY] meclizine (Dramamine Less Drowsy) 25 mg PO TID PRN midodrine 5 mg PO TID multivit with min-folic acid 200 mcg (Adult Multivitamin Gummies) 1 tab PO DAILY omeprazole 20 mg PO DAILY perphenazine 4 mg PO BID [PreviDent 5000 Booster 1.1 % PO USEASDIRECTD] pyridoxine (vitamin B6) 100 mg PO DAILY 90 days HPI HPI Comments History of Present Illness Details A 61 y/o tearful- animated- F- s/p gastric bypass about 5 years ago- she was intermittent N/ V-abdominal bloating- this has been going on for a couple years, however it has increased of recent-she has a known able to identify anything specific she says she has gained about 28 pounds over the past year. Acid reflux she has taken omeprazole 20 mg not very helpful She saw Mele Burleson at [place]-no issues- Bowels are normal notes rectal bleeding on occasion has known hemorrhoids No fever, chills or weight loss PFSH Medical History (Updated 08/25/22 @ 13:13 by Maria Elena Land PA-C) Acid reflux Bronchial asthma Colon polyp COVID-19 vaccine administered Crystal arthropathy Diverticulosis of colon Kidney calculi Kidney tumor Migraine Nausea & vomiting Pseudotumor cerebri Right shoulder injury Syncope Thyroid disease Surgical History (Updated 08/25/22 @ 09:10 by Maria Elena Land PA-C) History of esophagogastroduodenoscopy (EGD) History of hysterectomy History of surgery on wrist Hx laparoscopic cholecystectomy Hx of colonoscopy Hx of gastric bypass (03/12/15) Previous section Family History Father Heart disease History of open heart surgery Mother Heart disease Social History Household Members: None Household Members Other:: alone Are you a primary dog daycare provider to a significant other at home: No Do you presently have visiting nurse or other home services: No Alcohol intake: former Patient Tobacco Use Status: Former Tobacco user service: No Current occupational status: disabled Review of Systems Const All systems reviewed & are unremarkable except as noted in HPI and below ENT Reports hoarseness Card Denies chest pain and Denies dyspnea Resp Denies dyspnea GI Reports abdominal pain, Reports heartburn, Reports nausea and Reports vomiting Psych Reports abnormal sleep pattern and Reports anxiety Physical Exam Vital Signs: Last Vital Signs Pulse 76 08/25/22 08:46 BP 130/74 08/25/22 08:46 Const General: no acute distress Nutritional Appearance: overweight Orientation/consciousness: patient oriented x3 Eyes Sclerae: sclerae normal Resp Effort & Inspection: normal respiratory effort and able to speak in complete sentences Auscultation: clear to auscultation bilaterally, no rales, no rhonchi and no wheezes Cardio Rate: regular rate Rhythm: regular rhythm Heart sounds: S1 normal heart sound present and S2 normal heart sound present GI Palpation (GI): Soft to palpation and nontender Auscultation: normal bowel sounds Skin General skin exam: no rashes or lesions noted Neuro General: patient oriented x3 Extrem General: Yes full ROM Psych Speech and movement: Clear speech present Affect: Anxious affect present (Crying) Attitude: cooperative Thought content: suicidality and no homicidality Results Reviewed Results Reviewed: CT/CT abdomen pelvis wo IV con IMPRESSION: 1.? No acute abnormality CT scan abdomen pelvis. 2.? Diverticulosis of colon. No acute abnormality of the bowel. 3.? Status post gastric surgery. 4.? Status post cholecystectomy. Impression and Post Procedure Diagnosis: Colonoscopy Findings: Two small polyps removed Moderate to severe diverticulosis seen in the left colon Moderate hemorrhoids on retroflexed exam. Plan: Await pathology results Patient has an appointment on 08/26/20 in the GI Clinic with YARI Arevalo . Repeat Colonoscopy interval based on path results - in 3-5 years if polyps are adenomatous and 10 years if polyps are hyperplastic. Above findings were reviewed with the patient and colon polyps, hemorrhoids and diverticulosis handouts were given in the discharge area Surgeon: Marguerite Elizabeth,? Name:CharleneAyalaMag fowler Age/Sex: 59/F Attending: Marguerite Elizabeth MD : 1960 Submitted by: Marguerite Elizabeth MD Copies to: CUAUHTEMOC COATES MD MR #: [id number] ? Status: DEP [facility] [place] Collected: 08/08/20 Location: [facility] Received: 08/08/20 Diagnosis A.? Colon, ascending, polypectomy:? Colonic mucosa with mild surface hyperplastic changes; multiple additional levels examined. B.? Colon, hepatic flexure nodule:? Colonic mucosa with mild surface hyperplastic changes and small lymphoid aggregate; no submucosal or adipose tissue seen; multiple additional levels examined. C.? Colon, sigmoid, polypectomy:? Colonic mucosa with prominent lymphoid aggregate; no dysplasia seen. Assessment & Plan Assessment & Plan (1) Acid reflux: Comment: She will switch daily PPI, avoid culprits- discussed scheduling EGD - Code(s): K21.9 - Gastro-esophageal reflux disease without esophagitis (2) Hx of gastric bypass: Onset Date: 03/12/15 Code(s): Z98.84 - Bariatric surgery status Plan: EGD (3) Nausea & vomiting: Comment: Somewhat inconsistent, Intermittent-nothing specific trigger-no weight loss Reviewed labs normal electrolytes Code(s): R11.2 - Nausea with vomiting, unspecified (4) Hoarseness: Code(s): R49.0 - Dysphonia (5) Rectal bleeding: Comment: likely be hemorrhoidal- mod internal hemorrhoids noted on colon No change in stool, no abdominal pain Code(s): K62.5 - Hemorrhage of anus and rectum Plan EGD Dr. Elizabeth-anesthesia consult- asthma- Orders: Orders EDG - GI Use Only 08/25/22 K21.9 - Gastro-esophageal reflux disease without esophagitis, R11.2 - Nausea with vomiting, unspecified, R49.0 - Dysphonia, Z98.84 - Bariatric surgery status Medications: New pantoprazole 40 mg PO DAILY 30 tabs 3RF 30 days Patient Instructions: 61-year-old s/p gastric bypass history of acid reflux epigastric pain nausea vomiting. She has had it evaluations in the ED. She is extremely anxious, somewhat difficult to assess Pantoprazole 40 mg daily, reflux precautions discuss, small portions Schedule diagnostic EGD -to further evaluate causes of nausea vomiting-assess for stricture ETC other endoscopic findings to account for symptoms Discussed procedure, risks, need for escorted due to anesthesia Courage to call questions or concerns Appreciate the opportunity assist in the care the Coding Level of Care Code Est Pt Level 4 (03357) Diagnoses Acid reflux K21.9 Hx of gastric bypass Z98.84 Nausea & vomiting R11.2 Hoarseness R49.0 Rectal bleeding K62.5 Time Spent (min) 35
[2022-08-25 08:46] VITALS: BP 130/74; PULSE 76
== END 2022-08-25 09:44 | disposition home or self-care (01) ==
PROVIDERS: PCP Internal Medicine Geriatric Medicine; Visit Provider Physician Assistant
DX: K21.9 Gastro-esophageal reflux disease without esophagitis (principal); Z98.84 Bariatric surgery status; R11.2 Nausea with vomiting, unspecified; R49.0 Dysphonia; K62.5 Hemorrhage of anus and rectum
CPT/HCPCS: 99214

== ENCOUNTER → 2022-08-25 08:22 | Outpatient (BNVA) | payer MEDICAID, SELFPAY | PROVIDERS: PCP Internal Medicine Geriatric Medicine; Visit Provider Physician Assistant | DX: K21.9 Gastro-esophageal reflux disease without esophagitis (principal); R11.2 Nausea with vomiting, unspecified; R49.0 Dysphonia; K62.5 Hemorrhage of anus and rectum; Z98.84 Bariatric surgery status | CPT/HCPCS: 99214 ==

== ENCOUNTER 2022-09-10 12:43 | Emergency (ER) | payer MEDICAID, SELFPAY ==
[2022-09-10 12:48] VITALS: BP 136/100; PULSE 84; RESP 20; TEMP 36.8; O2SAT 99; BMI 31.4
--- NOTE | 2022-09-10 12:49 | ED.GENADULT ---
HPI - General Adult General Chief complaint: Nausea/Vomiting/Diarrhea Stated complaint: vomiting Time Seen by Provider: 09/10/22 14:36 Source: patient Mode of arrival: ambulatory Limitations: no limitations History of Present Illness HPI narrative: 61 year old female with history significant for GERD, asthma, benign renal tumor, migraine, hypothyroid, diverticulosis, colonic polyps, pseudotumor cerebri, and hx of gastric bypass presents today wtih 2 days for acute on chronic nausea, vomiting, and diarrhea. Reports associated right upper abdominal pain with radiation to her back and lower abdominal cramping. States she was seen by [facility] and has an endocscopy scheduled in 5 days however could not take the pain anymore, prompting her to come to the ED today. Nothing seems to relieve or exacerbate her symptoms. Denies fever, chills, CP, SOB, hematemesis, hematochezia, constipation. MD complaint: N/V/D, abd pain Onset (ago): day(s) Location: abdomen Radiation: back Severity: moderate Quality: other (cramping) Pain Consistency: constant Relieving factors: none Exacerbating factors: none Associated symptoms: nausea/vomiting Treatments prior to arrival: none Related Data Home Medications Medication Instructions Recorded Confirmed doxepin 75 mg capsule 75 mg PO BEDTIME 11/22/19 08/25/22 levothyroxine 75 mcg tablet 75 mcg PO DAILY 11/22/19 08/25/22 (Levo-T) midodrine 10 mg tablet 5 mg PO TID 11/22/19 08/25/22 multivitamin with minerals-folic 1 tab PO DAILY 11/22/19 08/25/22 acid 200 mcg chewable tablet (Adult Multivitamin Gummies) omeprazole 20 mg capsule,delayed 20 mg PO DAILY 11/22/19 08/25/22 release estazolam 1 mg tablet 3 mg PO BEDTIME 06/06/20 08/25/22 fluticasone propionate 220 2 puff inhalation BID 12/30/20 08/25/22 mcg/actuation HFA aerosol inhaler (Flovent HFA) alendronate 70 mg tablet 70 mg PO QWEEK 06/03/22 08/25/22 cholecalciferol (vitamin D3) 25 25 mcg PO DAILY 06/03/22 08/25/22 mcg (1,000 unit) tablet PreviDent 5000 Booster 1.1 % PO USEASDIRECTD 06/04/22 08/25/22 beclomethasone dipropionate 80 80 mcg inhalation BID 06/04/22 08/25/22 mcg/actuation aerosol inhaler ibuprofen 600 mg tablet 600 mg PO BID PRN headache 06/04/22 08/25/22 magnesium 100 mg PO DAILY 06/04/22 08/25/22 perphenazine 4 mg tablet 4 mg PO BID 06/04/22 08/25/22 Previous Rx's Medication Instructions Recorded meclizine 25 mg tablet (Dramamine 25 mg PO TID PRN dizziness #20 tabs 12/19/20 Less Drowsy) pyridoxine (vitamin B6) 100 mg 100 mg PO DAILY 90 days #90 tabs 05/15/21 tablet cyclobenzaprine 10 mg tablet 10 mg PO BEDTIME PRN muscle spasm 10/28/21 #7 tabs albuterol sulfate 2.5 mg/3 mL 2.5 mg (3 mL) inhalation Q4H PRN 08/13/22 (0.083 %) solution for nebulization for wheezing #150 mL albuterol sulfate 90 mcg/actuation 2 puff PO Q6H PRN for wheezing #18 08/13/22 aerosol inhaler (Ventolin HFA) grams pantoprazole 40 mg tablet,delayed 40 mg PO DAILY 30 days #30 tabs 08/25/22 release dicyclomine 20 mg tablet 20 mg PO TID PRN abdominal pain 09/10/22 #14 tabs ondansetron 4 mg disintegrating 4 mg PO Q8H PRN nausea and 09/10/22 tablet vomiting #10 tabs Allergies Allergy/AdvReac Type Severity Reaction Status Date / Time nalbuphine [From Nubain] Allergy Severe Anaphylaxis Verified 08/25/22 08:37 Review of Systems Review of Systems: Yes all other systems are reviewed and are negative PMFSH Past Medical History Attestation statement: The following information was validated with the patient. Source: old records reviewed and nursing notes reviewed Medical History Acid reflux Bronchial asthma Colon polyp COVID-19 vaccine administered Crystal arthropathy Diverticulosis of colon Kidney calculi Kidney tumor Migraine Nausea & vomiting Pseudotumor cerebri Right shoulder injury Syncope Thyroid disease Surgical History History of esophagogastroduodenoscopy (EGD) History of hysterectomy History of surgery on wrist Hx laparoscopic cholecystectomy Hx of colonoscopy Hx of gastric bypass (03/12/15) Previous section Family History Family History Father Heart disease History of open heart surgery Mother Heart disease Social History Social History Household Members: None Household Members Other:: alone Are you a primary childcare worker to a significant other at home: No Do you presently have visiting nurse or other home services: No Alcohol intake: never Patient Tobacco Use Status: Former Tobacco user Smoked in Last 30 Days: No Use of substances other than those prescribed or required for medical reasons: No Advance Directives: No Patient : No service: No Current occupational status: disabled Physical Exam ED Vital Signs: Vital Signs - 24 hr 09/10/22 12:48 09/10/22 15:33 09/10/22 17:41 Temperature 98.2 F 97.8 F Pulse Rate 84 78 66 Respiratory Rate 20 18 18 Blood Pressure 136/100 H 104/54 L 122/53 L Pulse Oximetry 99 99 Oxygen Delivery Method Room Air Room Air BMI result Body Mass Index 31.4 Appearance: Alert. Oriented X3. No acute distress. Head: normocephalic, atraumatic. Eyes: Pupils equal, round and reactive to light. Neck: Normal inspection. Neck supple. CVS: Normal heart rate and rhythm. Pulses normal. Respiratory: No respiratory distress. Breath sounds normal. Abdomen: Soft, nondistended, TTP to the right upper quadrant and mid-lower abdomen, no rebound tenderness or guarding. +BS x4 Skin: Skin warm and dry. Normal skin color. Normal skin turgor. No rashes. Course Course Course Narrative: This is an RME: Additional HPI, ROS, PE not included below will be deferred to primary provider. This is a [id number], pseudotumor cerebri, hypothyroidism, presenting to the emergency department with a complaint of nausea, vomiting, diarrhea, and abdominal pain. Patient has been seen here multiple times for these symptoms. Reporting some back pain, and suprapubic pain as well as epigastric pain. Patient has had cholecystectomy, gastric bypass and hysterectomy. Vital signs stable. Patient appears comfortable, nontoxic appearing. Plan: Labs and UA ordered. Will defer imaging until seen by primary provider in the main emergency department. Medications Administered Discontinued Medications Generic Name Dose Route Start Last Admin Trade Name Shaq PRN Reason Stop Dose Admin Dicyclomine HCl 10 mg 09/10/22 15:38 09/10/22 16:33 Dicyclomine Hcl 10 Mg Capsule PO 09/10/22 15:39 10 mg ONCE ONE Administration Famotidine 20 mg 09/10/22 15:38 09/10/22 16:33 Famotidine 20 Mg Tablet PO 09/10/22 15:39 20 mg ONCE ONE Administration Ondansetron HCl 4 mg 09/10/22 15:38 09/10/22 16:33 Ondansetron Odt 4 Mg Tab.Rapdis TRANSLINGU 09/10/22 15:39 4 mg ONCE ONE Administration Medical Decision Making Medical Decision Making [facility] Narrative: 61 year old female with history significant for GERD, asthma, benign renal tumor, migraine, hypothyroid, diverticulosis, colonic polyps, pseudotumor cerebri presents today with 2 days for acute on chronic N/V/D and abdominal pain with radiation to back. Vital signs are stable. Physical exam notable for RUQ and mid-lower abdominal tenderness to palpation without rebound tenderness or guarding. Plan: labs, UA, antiemetics, re-eval On re-evaluation, patient is stating she feels better and is tolerating PO. Labs and UA within normal limits. A CT scan is not warrented at this time. Patient is stable for discharge and follow up with PCP. Differential Diagnosis Differential Diagnoses: The differential diagnosis associated with the presentation includes diverticulosis, diverticulitis, gastritis, gastroenteritis Admission/Observation Consideration of admission/observation: Escalation of care including admission/observation considered considered observation, inability to tolerate PO but improved w/ treatment Lab Data [facility] Lab Attestation statement: I reviewed the patient's lab results. CBC without infection or anemia. CMP without acute electrolyte abnormalities. UA without infection. 09/10/22 13:02 09/10/22 13:02 Labs: Lab Results 09/10/22 09/10/22 09/10/22 Range/Units 13:02 13:02 13:26 WBC 7.0 (4.8-10.8) X10*3/uL RBC 4.72 (4.20-5.50) X10*6/uL Hgb 12.6 (12.0-16.0) g/dl Hct 40.5 (37.0-47.0) % MCV 85.8 (80.0-98.0) fL MCH 26.7 L (27.0-33.0) pg MCHC 31.1 (31.0-35.0) g/dl RDW 15.5 (11.0-16.0) % Plt Count 274 (160-400) X10*3/uL MPV 9.6 (9.4-12.3) fL Immature Gran % (Auto) 0.1 (0.0-0.4) % Neut % (Auto) 58.1 (45-73) % Lymph % (Auto) 25.9 (20-40) % Putnam % (Auto) 11.6 H (2-11) % Eos % (Auto) 3.6 (0-4) % Baso % (Auto) 0.7 (0-2) % Lymph # (Auto) 1.8 (1.2-4.9) X10*3/uL Putnam # (Auto) 0.8 (0.1-1.2) X10*3/uL Eos # (Auto) 0.3 (0.0-0.4) X10*3/uL Baso # (Auto) 0.1 (0.0-0.2) X10*3/uL Abs Immat Gran (auto) 0.01 (0.00-0.03) X10*3/uL Absolute Neuts (auto) 4.1 (2.0-8.3) x10*3/uL Absolute Nucleated RBC 0.000 (0.0-0.012) X10*3/uL Nucleated RBC % (auto) 0.0 (0.0-0.2) /100WBC Sodium 140 (135-145) mmol/L Potassium 4.4 (3.3-5.1) mmol/L Chloride 109 H (96-108) mmol/L Carbon Dioxide 23 (22-29) mmol/L Anion Gap 12 (12-20) BUN 13 (9-16) mg/dL Creatinine 0.81 (0.5-1.4) mg/dL Estim Creat Clear Calc 71.3 Estimated GFR > 60 Random Glucose 87 (60-115) mg/dL Calcium 8.9 (8.4-10.2) mg/dL Magnesium 2.0 (1.6-2.6) mg/dL Total Bilirubin 0.2 (0.0-1.0) mg/dL Direct Bilirubin < 0.2 (0.0-0.5) mg/dL AST 25 (5-31) U/L ALT 28 (0-31) U/L Alkaline Phosphatase 79 (39-117) U/L Total Protein 6.8 (6.5-8.0) g/dL Albumin 3.6 (3.5-5.0) g/dL Lipase 24 (8-78) U/L Urine Color Yellow Urine Appearance Clear Urine pH 5.5 (5.0-9.0) Ur Specific Scheller 1.015 (1.005-1.025) Urine Protein Negative (Neg-Trace) mg/dL Urine Glucose (UA) Negative (Negative) mg/dL Urine Ketones Negative (Negative) mg/dL Urine Blood Trace H (Negative) Urine Nitrite Negative (Negative) Ur Leukocyte Esterase Negative (Negative) Urine RBC 3-5 H (0-2) /HPF Urine WBC 0-5 (0-5) /HPF Ur Squamous Epith Cells 0-2 (0-2) /HPF Urine Bacteria None Seen (None Seen) Hyaline Casts 0-2 (0-2) /LPF External Record Review External record reviewed: Inpatient record and Outpatient record Tests considered The following testing was considered but not selected: CT scan abd considered Prescription Management I considered prescription management with: Pain Medication antiemetics Chronic Conditions Patient?s care impacted by: Other diverticulosis, gastric bypass Critical Care Time Critical Care Time Critical Care Time: No Discharge Plan Discharge Clinical Impression: Gastroenteritis Patient Disposition: Home, Self-Care Instructions: Gastroenteritis (DC) Additional Instructions: You lab workup today was unremarkable. Your urine test was negative for infection. You most likely have a viral GI bug also known as gastroenteritis. Treatment is supportive care, symptoms usually resolve on their own in 48-72 hours. Recommend rest and plenty of oral hydration. Stick to a bland diet like soup and toast while you are not feeling well. Take the prescribed medication as needed for nausea. Recommend over the counter Pepto Bismol or Imodium for upset stomach and diarrhea. Follow up with your doctor as needed. If you develop new or worsening symptoms call 911 or come back to the ER for further evaluation. Prescriptions: New dicyclomine 20 mg tablet 20 mg PO TID PRN (Reason: abdominal pain) Qty: 14 0RF ondansetron 4 mg tablet,disintegrating 4 mg PO Q8H PRN (Reason: nausea and vomiting) Qty: 10 0RF No Action albuterol sulfate [Ventolin HFA] 90 mcg/actuation HFA aerosol inhaler 2 puff PO Q6H PRN (Reason: for wheezing) Qty: 18 0RF albuterol sulfate 2.5 mg /3 mL (0.083 %) solution for nebulization 2.5 mg inhalation Q4H PRN (Reason: for wheezing) Qty: 150 0RF meclizine [Dramamine Less Drowsy] 25 mg tablet 25 mg PO TID PRN (Reason: dizziness) Qty: 20 0RF cyclobenzaprine 10 mg tablet 10 mg PO BEDTIME PRN (Reason: muscle spasm) Qty: 7 0RF Qvar 80 mcg/actuation Aerosol 80 mcg INHALATION BID perphenazine 4 mg tablet 4 mg PO BID ibuprofen 600 mg tablet 600 mg PO BID PRN (Reason: headache) PreviDent 5000 Booster 5,000 UNITS packet 1.1 % PO USEASDIRECTD magnesium 100 MG tablet 100 mg PO DAILY doxepin 75 mg capsule 75 mg PO BEDTIME levothyroxine [Levo-T] 75 mcg tablet 75 mcg PO DAILY Adult Multivitamin Gummies 200 mcg tablet,chewable 1 tab PO DAILY omeprazole 20 mg capsule,delayed release(DR/EC) 20 mg PO DAILY midodrine 10 mg tablet 5 mg PO TID Rx Instructions: do not give last dose of day after 6PM or within 4 hrs of bedtime estazolam 1 mg tablet 3 mg PO BEDTIME Flovent HFA 220 mcg/actuation HFA aerosol inhaler 2 puff inhalation BID pyridoxine (vitamin B6) 100 mg tablet 100 mg PO DAILY 90 Days Qty: 90 3RF alendronate 70 mg tablet 70 mg PO QWEEK cholecalciferol (vitamin D3) 25 mcg (1,000 unit) tablet 25 mcg PO DAILY pantoprazole 40 mg tablet,delayed release (DR/EC) 40 mg PO DAILY 30 Days Qty: 30 3RF Referrals: [facility] [Provider Group] Name,MD Gregg [Primary Care Provider] -
[2022-09-10 13:08] LABS: MANUAL DIFF FLAG NO
[2022-09-10 13:25] LABS: Basophils Absolute Auto 0.1 X10*3/uL (0.0-0.2); Basophils Percent Auto 0.7 % (0-2); Eosinophils Absolute Auto 0.3 X10*3/uL (0.0-0.4); Eosinophils Percent Auto 3.6 % (0-4); Hematocrit 40.5 % (37.0-47.0); Hemoglobin 12.6 g/dl (12.0-16.0); Imm Gran Abs Auto 0.01 X10*3/uL (0.00-0.03); Imm Gran Pct Auto 0.1 % (0.0-0.4); Lymphocytes Absolute Auto 1.8 X10*3/uL (1.2-4.9); Lymphocytes Percent Auto 25.9 % (20-40); Mean Corpuscular HGB Conc 31.1 g/dl (31.0-35.0); Mean Corpuscular Hemoglobin 26.7 pg (27.0-33.0); Mean Corpuscular Volume 85.8 fL (80.0-98.0); Mean Platelet Volume 9.6 fL (9.4-12.3); Monocytes Absolute Auto 0.8 X10*3/uL (0.1-1.2); Monocytes Percent Auto 11.6 % (2-11); Neutrophils Absolute Auto 4.1 x10*3/uL (2.0-8.3); Neutrophils Percent Auto 58.1 % (45-73); Platelet Count 274 X10*3/uL (160-400); Red Blood Count 4.72 X10*6/uL (4.20-5.50); Red Cell Distribution Width 15.5 % (11.0-16.0)
[2022-09-10 13:27] LABS: Alanine Aminotransferase 28 U/L (0-31); Albumin Level 3.6 g/dL (3.5-5.0); Alkaline Phosphatase 79 U/L (39-117); Anion Gap 12 (12-20); Aspartate Amino Transferase 25 U/L (5-31); Bilirubin Direct < 0.2 mg/dL (0.0-0.5); Bilirubin Total 0.2 mg/dL (0.0-1.0); Blood Urea Nitrogen 13 mg/dL (9-16); Calcium 8.9 mg/dL (8.4-10.2); Carbon Dioxide 23 mmol/L (22-29); Chloride 109 mmol/L (96-108); Creatinine Clr Calc Pharmacy 71.3; Estimated Glomerular Filt Rate > 60; Glucose Random 87 mg/dL (60-115); Lipase 24 U/L (8-78); Potassium 4.4 mmol/L (3.3-5.1); Sodium 140 mmol/L (135-145); Total Protein 6.8 g/dL (6.5-8.0)
[2022-09-10 13:35] LABS: Appearance Urine Clear; Color Urine Yellow; Glucose Urine UA Negative (Negative); Leukocyte Esterase Urine Negative (Negative); Nitrite Urine Negative (Negative); PH 5.5 (5.0-9.0); Specific Gravity - Urine 1.015 (1.005-1.025); UMIC TRIGGER UACC YES; Urine Blood Trace (Negative); Urine Ketones Negative (Negative); Urine Protein Negative (Neg-Trace)
[2022-09-10 13:41] LABS: Bacteria Urine None Seen (None Seen); Hyaline Casts Urine 0-2 /LPF (0-2); Squamous Epithelial Cell Urine 0-2 /HPF (0-2); WBC Urine 0-5 /HPF (0-5)
[2022-09-10 15:33] VITALS: BP 104/54; PULSE 78; RESP 18; TEMP 36.6
[2022-09-10] MEDS: Famotidine 20 MG TABLET PO (16:33)
[2022-09-10] MEDS: Dicyclomine HCl 10 MG CAPSULE PO (16:33)
[2022-09-10] MEDS: Ondansetron ODT 4 MG TAB.RAPDIS TRANSLINGU (16:33)
[2022-09-10 17:41] VITALS: BP 122/53; PULSE 66; RESP 18; O2SAT 99
--- NOTE | 2022-09-10 18:01 | PC.NURSE ---
pt tolerated po challenge well (applel juice, saltine and pedro pablo crackers)
== END 2022-09-10 18:02 | disposition home or self-care (01) ==
PROVIDERS: Physician Assistant Medical; Emergency Provider Emergency Medicine Emergency Medical Services; PCP Internal Medicine Geriatric Medicine
DX: K52.9 Noninfective gastroenteritis and colitis, unspecified (principal); Z79.899 Other long term (current) drug therapy; Z87.891 Personal history of nicotine dependence
CPT/HCPCS: 36415; 80048; 80076; 81001; 83690; 83735; 85025; 99283; 99284

== ENCOUNTER 2022-09-15 12:31 | Day surgery (SDC) | payer MEDICAID, SELFPAY ==
[2022-09-11 09:37] VITALS: BMI 31.0
[2022-09-15 14:04] VITALS: BP 122/71; PULSE 70; RESP 16; TEMP 36.8; O2SAT 98; BMI 31.7
[2022-09-15] MEDS: Lactated Ringers 1,000 ML 100 ML IVCONT (14:23)
--- NOTE | 2022-09-15 14:40 | PC.NURSE ---
Report given to Jessy TIME STUDY TECHNOLOGIST.
--- NOTE | 2022-09-15 15:10 | MHC.SHP ---
Pre-Procedural Eval Section A Date of Service: 09/15/22 The patient is an INPATIENT: No Changes since office visit: Yes Patient answered all questions; No Cold of Flu in the past 2 weeks, No New Medical Problems and No Changes in Medication The History & Physical has been completed within 30 days and I have reviewed it.: Yes Section B Chief Complaint: Bariatric surgery status, Nausea with vomiting Allergies: Allergies Allergy/AdvReac Type Severity Reaction Status Date / Time nalbuphine [From Nubain] Allergy Severe Anaphylaxis Verified 09/15/22 13:56 Plan I have reviewed the history and physical and performed a pertinent physical examination on my patient. No changes have occurred unless specified. Time Spent With Patient Time: Total time managing care of this patient today ____ minutes.
--- NOTE | 2022-09-15 16:35 | W.PM.OPN ---
Operative Note Operative Note Date of Service: 09/15/22 Narrative: FLEXIBLE TRANSORAL UPPER GASTROINTESTINAL ENDOSCOPY WITH BIOPSIES Pre-op diagnosis: GERD, Epigastric pain, nausea and vomiting, status post gastric sleeve Post-op diagnosis: Gastritis, gastric nodule Endoscopist:? Marguerite Elizabeth MD Anesthesia:?MAC Consent: Indications for the procedure and potential complications of bleeding, perforation, reaction to medications and missed diagnosis were discussed with the patient and informed consent was obtained. Instrument: Olympus GIF H 190 mid size upper endoscope Monitoring: Vital signs and clinical assessment, continuous EKG monitoring, Pulse oximetry, Carbon Dioxide monitoring and blood pressure monitoring were done throughout the procedure. Procedure: The patient was placed in the left lateral decubitis position and pre-procedure medications were administered and a bite block was placed. The endoscope was inserted into the mouth and advanced under direct vision to the third part of duodenum. A careful inspection was made as the upper endoscope was withdrawn including a retroflexed examination of the proximal stomach; Findings and interventions are described below. Findings: Larynx: Normal Esophagus: GE junction at 35 cms. No esophagitis or Davey's. Stomach: Gastric anatomy consistent with gastric sleeve surgery. A 10-12 mm benign appearing nodule in the gastric pouch - biopsied. Mild gastric antral erythema. Biopsies were obtained. Grade 2 flap valve on retroflexed examination of the cardia. Duodenum: Normal bulb and descending duodenum. Biopsies obtained from 3rd part of the duodenum to check for celiac sprue Intervention: Biopsies as noted above Impression and Post Procedure Diagnosis: Endoscopy Findings: STOMACH: Gastric anatomy consistent with gastric sleeve surgery. A 10-12 mm benign appearing nodule in the gastric pouch (likely post surgical changes) - biopsied. Mild gastric antral erythema. Biopsies were obtained. DUODENUM: Normal - biopsied to check for celiac sprue. Pt's symptoms possibly related to non-compliance with diet post gastric sleeve resulting in wt gain, early satiety, nausea and vomiting Plan: Await pathology results Patient has an appointment on 10/01/22 in the GI Clinic with YARI Arevalo. Consider further evaluation with an UGI with SBFT if biopsies are normal and referral to Bariatric surgery to review pt's compliance with diet. Above findings were reviewed with the patient and GERD handout was given in the discharge area
[2022-09-15 17:00] VITALS: BP 103/70; PULSE 87; RESP 20; TEMP 36.3; O2SAT 98
[2022-09-15 17:15] VITALS: BP 100/65; PULSE 81; RESP 20; O2SAT 96
[2022-09-15 17:30] VITALS: BP 119/50; PULSE 84; RESP 20; TEMP 36.3; O2SAT 98
== END 2022-09-15 17:00 | disposition home or self-care (01) ==
PROVIDERS: PCP Internal Medicine Geriatric Medicine; Visit Provider Internal Medicine Gastroenterology
PROC: 0DJ08ZZ Inspection of Upper Intestinal Tract, Via Natural or Artificial Opening Endoscopic (ICD-10-PCS; CPT 43235; principal; 2022-09-15 15:20)
DX: K31.89 Other diseases of stomach and duodenum (principal); K29.50 Unspecified chronic gastritis without bleeding; K21.9 Gastro-esophageal reflux disease without esophagitis; Z98.84 Bariatric surgery status; G93.2 Benign intracranial hypertension; K57.30 Diverticulosis of large intestine without perforation or abscess without bleeding; J45.909 Unspecified asthma, uncomplicated; Z79.51 Long term (current) use of inhaled steroids; Z79.1 Long term (current) use of non-steroidal anti-inflammatories (NSAID); Z79.899 Other long term (current) drug therapy; Z88.8 Allergy status to other drugs, medicaments and biological substances; Z90.49 Acquired absence of other specified parts of digestive tract; Z87.891 Personal history of nicotine dependence
CPT/HCPCS: 43239; 88305; 88342

== ENCOUNTER → 2022-09-15 12:31 | Outpatient (BNV) | payer MEDICAID, SELFPAY | PROVIDERS: PCP Internal Medicine Geriatric Medicine; Visit Provider Internal Medicine Gastroenterology | DX: K29.70 Gastritis, unspecified, without bleeding (principal); K31.7 Polyp of stomach and duodenum; Z90.3 Acquired absence of stomach [part of]; Z98.84 Bariatric surgery status | CPT/HCPCS: 43239 ==

== ENCOUNTER 2022-10-01 10:35 | Outpatient (AMB) | payer MEDICAID, SELFPAY ==
--- NOTE | 2022-10-01 10:43 | MHC.OFFVIS ---
Intake Vital Signs 10/01/22 10:46 Height 5 ft 3 in Weight 178 lb 9.191 oz BMI 31.6 Blood Pressure Location Lt brachial Position Sitting Intake Visit Reasons: s/p egd- george Intake Note: Mag presents in the office as a follow up EGD. CC: She states that she is still throwing up and she does not know what to eat. She feels like she gets pains in her stomach. 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: No Allergies nalbuphine [From Nubain] Allergy (Severe, Verified 10/01/22 10:46) Anaphylaxis Medication List - Last Reconciled 10/01/22 by Maria Elena Land PA-C albuterol sulfate 2.5 mg (3 mL) inhalation Q4H PRN albuterol sulfate 90 mcg/actuation (Ventolin HFA) 2 puffs PO Q6H PRN alendronate 70 mg PO QWEEK aspirin 81 mg PO BEDTIME beclomethasone dipropionate 80 mcg/actuation 80 mcg inhalation BID cholecalciferol (vitamin D3) 25 mcg PO DAILY cyclobenzaprine 10 mg PO BEDTIME PRN dicyclomine 20 mg PO TID PRN doxepin 75 mg PO BEDTIME estazolam 3 mg PO BEDTIME estazolam 2 mg PO BEDTIME fluticasone propionate 220 mcg/actuation (Flovent HFA) 2 puffs inhalation BID ibuprofen 600 mg PO BID PRN levothyroxine 100 mcg PO QAM lidocaine 5% 0 patches topical magnesium oxide 400 mg PO DAILY meclizine (Dramamine Less Drowsy) 25 mg PO TID PRN midodrine 5 mg PO TID multivit with min-folic acid 200 mcg (Adult Multivitamin Gummies) 1 tab PO DAILY omeprazole 40 mg PO QAM ondansetron 4 mg PO Q8H PRN perphenazine 4 mg PO BID phentermine 37.5 mg PO QAM [PreviDent 5000 Booster 1.1 % PO USEASDIRECTD] pyridoxine (vitamin B6) 100 mg PO DAILY 90 days Saccharomyces boulardii (Daily Probiotic (S. boulardii)) 250 mg PO BID venlafaxine 25 mg PO DAILY HPI HPI Comments History of Present Illness Details A 61 yo s/p gastric sleeve about 5 years ago-f/u after EGD for nausea and vomiting.She feels better since EGD- however sometimes gets nausea and vomit- she is not following a diet- She eats what she wants- she has gained weight- She says she has no control over her diet Bowels are okay Afebrile, no hematemesis, hematochezia PFSH Medical History Acid reflux Bronchial asthma Colon polyp COVID-19 vaccine administered Crystal arthropathy Diverticulosis of colon Kidney calculi Kidney tumor Migraine Nausea & vomiting Pseudotumor cerebri Right shoulder injury Syncope Thyroid disease Surgical History History of esophagogastroduodenoscopy (EGD) History of hysterectomy History of surgery on wrist Hx laparoscopic cholecystectomy Hx of colonoscopy Hx of gastric bypass (03/12/15) Previous section Family History Father Heart disease History of open heart surgery Mother Heart disease Social History Household Members: None Household Members Other:: alone Are you a primary care team coordinator scheduler to a significant other at home: No Do you presently have visiting nurse or other home services: No Alcohol intake: never Patient Tobacco Use Status: Former Tobacco user Quit Date: 2007 Tobacco use type: Cigarette service: No Current occupational status: disabled Review of Systems Const All systems reviewed & are unremarkable except as noted in HPI and below Card Denies chest pain and Denies dyspnea Resp Denies dyspnea GI Denies abdominal pain and Reports heartburn Physical Exam Vital Signs: BMI result Body Mass Index 31.6 Const General: cooperative, healthy appearing, comfortable and no acute distress Orientation/consciousness: patient oriented x3 Limitations: no limitations Eyes Conjunctivae: conjunctivae normal Resp Effort & Inspection: normal respiratory effort and able to speak in complete sentences Auscultation: clear to auscultation bilaterally, no rales, no rhonchi and no wheezes Cardio Rate: regular rate Rhythm: regular rhythm Heart sounds: S1 normal heart sound present and S2 normal heart sound present GI Palpation (GI): Soft to palpation and nontender Auscultation: normal bowel sounds Neuro General: patient oriented x3 Extrem General: Yes full ROM Psych Speech and movement: Clear speech present Affect: Labile affect present Thought process: Normal thought process present Thought content: Normal thought content present Results Reviewed Results Reviewed: Findings: Larynx:? Normal Esophagus: GE junction at 35 cms. No esophagitis or Davey's. Stomach: Gastric anatomy consistent with gastric sleeve surgery. A 10-12 mm benign appearing nodule in the gastric pouch - biopsied. Mild gastric antral erythema. Biopsies were obtained. Grade 2 flap valve on retroflexed examination of the cardia. Duodenum: Normal bulb and descending duodenum. Biopsies obtained from 3rd part of the duodenum to check for celiac sprue Intervention: Biopsies as noted above Impression and Post Procedure Diagnosis: Endoscopy Findings: STOMACH: Gastric anatomy consistent with gastric sleeve surgery. A 10-12 mm benign appearing nodule in the gastric pouch (likely post surgical changes) - biopsied. Mild gastric antral erythema. Biopsies were obtained. DUODENUM: Normal - biopsied to check for celiac sprue. Pt's symptoms possibly related to non-compliance with diet post gastric sleeve resulting in wt gain, early satiety, nausea and vomiting Plan: Await pathology results Patient has an appointment on 10/01/22 in the GI Clinic with YARI Arevalo. Consider further evaluation with an UGI with SBFT if biopsies are normal and referral to Bariatric surgery to review pt's compliance with diet. Above findings were reviewed with the patient and GERD handout was given in the discharge area Assessment & Plan Assessment & Plan (1) Hx of gastric bypass: Onset Date: 03/12/15 Code(s): Z98.84 - Bariatric surgery status Plan: Reenforced importance of f/u with Edmond Buckner (2) Early satiety: Comment: 61-year-old female status post gastric sleeve with early satiety, will continue to eat small portions. Code(s): R68.81 - Early satiety (3) Nausea & vomiting: Comment: Somewhat inconsistent, Intermittent-nothing specific trigger-no weight loss[\has gained- no food restrictions- eats whatever again Reviewed labs normal electrolytes Code(s): R11.2 - Nausea with vomiting, unspecified Plan: UGISBFT Orders: Orders [place] upper GI small bowel 10/01/22 R11.2 - Nausea with vomiting, unspecified, R68.81 - Early satiety, Z98.84 - Bariatric surgery status Patient Instructions: UGISMFT Continue usual meds F/u bariatrics Coding Level of Care Code Est Pt Level 3 (78887) Diagnoses Hx of gastric bypass Z98.84 Early satiety R68.81 Nausea & vomiting R11.2 Time Spent (min) 30
[2022-10-01 10:46] VITALS: BMI 31.6
== END 2022-10-01 12:42 | disposition home or self-care (01) ==
PROVIDERS: PCP Internal Medicine Geriatric Medicine; Visit Provider Physician Assistant
DX: Z98.84 Bariatric surgery status (principal); R68.81 Early satiety; R11.2 Nausea with vomiting, unspecified
CPT/HCPCS: 99213

== ENCOUNTER → 2022-10-01 10:35 | Outpatient (BNVA) | payer MEDICAID, SELFPAY | PROVIDERS: PCP Internal Medicine Geriatric Medicine; Visit Provider Physician Assistant | DX: R68.81 Early satiety (principal); R11.2 Nausea with vomiting, unspecified; Z98.84 Bariatric surgery status | CPT/HCPCS: 99213 ==

== ENCOUNTER 2022-10-31 10:40 | Emergency (ER) | payer MEDICAID, SELFPAY ==
--- NOTE | ~2022-10-31 | XR_ITS ---
EXAMINATION: CHEST 2 VIEWS CLINICAL INFORMATION: Chest pain. COMPARISON: 11/02/2019. TECHNIQUE: AP frontal and lateral views of the chest obtained FINDINGS: The lungs are mildly hypoexpanded. No focal infiltrate, effusion, edema, or pneumothorax. Cardiac and mediastinal silhouettes are within normal limits for technique. No acute bony abnormality seen. Surgical clips in the right upper quadrant consistent with prior cholecystectomy. XR/XR chest 2V IMPRESSION: No evidence of acute disease
[2022-10-31 10:46] VITALS: BP 112/78; PULSE 78; O2SAT 99
--- NOTE | 2022-10-31 10:47 | ECG_ITS ---
Test Reason : sob Blood Pressure : / mmHG Vent. Rate : 077 BPM Atrial Rate : 077 BPM P-R Int : 158 ms QRS Dur : 068 ms QT Int : 368 ms P-R-T Axes : 023 017 000 degrees QTc Int : 416 ms Normal sinus rhythm Normal ECG When compared with ECG of 07-MAY-2022 12:02, No significant change was found Referred By: Generic ED Physician Electronically Signed By:ESTELLA PETERS
[2022-10-31 10:48] VITALS: BP 117/69; PULSE 80; RESP 16; TEMP 36.8; O2SAT 99; BMI 30.8
[2022-10-31 11:00] VITALS: BP 109/72; PULSE 68; RESP 20; TEMP 36.6; O2SAT 97
--- NOTE | 2022-10-31 11:11 | ED.GENADULT ---
HPI - General Adult General Chief complaint: General Medical Stated complaint: cough, sob, chest pains, x 3, per ems Time Seen by Provider: 10/31/22 10:56 Source: patient Mode of arrival: EMS History of Present Illness HPI narrative: 61-year-old female who comes in with cough, shortness of breath, chest pains exacerbated by deep inspiration for the past 3 days. She denies any fevers or chills but reports some dysuria and otherwise denies any abdominal discomfort. Related Data Home Medications Medication Instructions Recorded Confirmed doxepin 75 mg capsule 75 mg PO BEDTIME 11/22/19 09/22/22 midodrine 10 mg tablet 5 mg PO TID 11/22/19 09/22/22 multivitamin with minerals-folic 1 tab PO DAILY 11/22/19 09/22/22 acid 200 mcg chewable tablet (Adult Multivitamin Gummies) estazolam 1 mg tablet 3 mg PO BEDTIME 06/06/20 09/22/22 fluticasone propionate 220 2 puff inhalation BID 12/30/20 09/22/22 mcg/actuation HFA aerosol inhaler (Flovent HFA) alendronate 70 mg tablet 70 mg PO QWEEK 06/03/22 09/22/22 cholecalciferol (vitamin D3) 25 25 mcg PO DAILY 06/03/22 09/22/22 mcg (1,000 unit) tablet PreviDent 5000 Booster 1.1 % PO USEASDIRECTD 06/04/22 09/22/22 beclomethasone dipropionate 80 80 mcg inhalation BID 06/04/22 09/22/22 mcg/actuation aerosol inhaler ibuprofen 600 mg tablet 600 mg PO BID PRN headache 06/04/22 09/22/22 perphenazine 4 mg tablet 4 mg PO BID 06/04/22 09/22/22 Saccharomyces boulardii 250 mg 250 mg PO BID 10/01/22 capsule (Daily Probiotic (S. boulardii)) aspirin 81 mg tablet,delayed 81 mg PO BEDTIME 10/01/22 release estazolam 2 mg tablet 2 mg PO BEDTIME 10/01/22 levothyroxine 100 mcg tablet 100 mcg PO QAM 10/01/22 lidocaine 5 % topical patch 0 patch topical 10/01/22 magnesium oxide 400 mg (241.3 mg 400 mg PO DAILY 10/01/22 magnesium) tablet omeprazole 40 mg capsule,delayed 40 mg PO QAM 10/01/22 release phentermine 37.5 mg tablet 37.5 mg PO QAM 10/01/22 venlafaxine 25 mg tablet 25 mg PO DAILY 10/01/22 Previous Rx's Medication Instructions Recorded meclizine 25 mg tablet (Dramamine 25 mg PO TID PRN dizziness #20 tabs 12/19/20 Less Drowsy) pyridoxine (vitamin B6) 100 mg 100 mg PO DAILY 90 days #90 tabs 05/15/21 tablet cyclobenzaprine 10 mg tablet 10 mg PO BEDTIME PRN muscle spasm 10/28/21 #7 tabs albuterol sulfate 2.5 mg/3 mL 2.5 mg (3 mL) inhalation Q4H PRN 08/13/22 (0.083 %) solution for nebulization for wheezing #150 mL dicyclomine 20 mg tablet 20 mg PO TID PRN abdominal pain 09/10/22 #14 tabs ondansetron 4 mg disintegrating 4 mg PO Q8H PRN nausea and 09/10/22 tablet vomiting #10 tabs albuterol sulfate 90 mcg/actuation 2 puff PO Q6H PRN for wheezing 30 10/29/22 aerosol inhaler (Ventolin HFA) days #18 grams Allergies Allergy/AdvReac Type Severity Reaction Status Date / Time nalbuphine [From Nubain] Allergy Severe Anaphylaxis Verified 10/01/22 10:46 Review of Systems Review of Systems: Pertinent positives and negatives as stated in HPI [facility] Past Medical History Source: nursing notes reviewed Medical History Nausea & vomiting Migraine Syncope Pseudotumor cerebri Kidney calculi Crystal arthropathy Right shoulder injury Kidney tumor COVID-19 vaccine administered Thyroid disease Colon polyp Diverticulosis of colon Bronchial asthma Acid reflux Surgical History History of esophagogastroduodenoscopy (EGD) History of surgery on wrist History of hysterectomy Previous section Hx laparoscopic cholecystectomy Hx of gastric bypass (03/12/15) Hx of colonoscopy Family History Family History Father Heart disease History of open heart surgery Mother Heart disease Social History Social History Household Members: None Household Members Other:: alone Are you a primary palliative care specialist to a significant other at home: No Do you presently have visiting nurse or other home services: No Alcohol intake: never Patient Tobacco Use Status: Former Tobacco user Quit Date: 2007 Tobacco use type: Cigarette Smoked in Last 30 Days: No Use of substances other than those prescribed or required for medical reasons: No Advance Directives: No Advance Directives Information Provided: Yes service: No Current occupational status: disabled Physical Exam ED Vital Signs: Vital Signs - 24 hr 10/31/22 10:48 10/31/22 11:00 10/31/22 14:22 Temperature 98.3 F 98 F Pulse Rate 80 68 67 Respiratory Rate 16 20 16 Blood Pressure 117/69 109/72 126/67 Pulse Oximetry 99 97 100 Oxygen Delivery Method Room Air Room Air Room Air BMI result Body Mass Index 30.8 VITAL SIGNS: Reviewed. GENERAL: Well developed, well nourished, in no acute distress. HEAD: Normocephalic/atraumatic EYES: PERRLA, EOMI EARS: Ext canals without abnormality, TMs non-bulging and non-erythematous NOSE: Nares patent bilateral OROPHARYNX: no oral lesions noted, posterior pharynx clear and non-erythematous without noted tonsillar enlargement/erythema/exudates NECK: Supple, no adenopathy LUNGS: Normal breath sounds. No adventitious sounds or accessory muscle use. SpO2<97> CARDIOVASCULAR: Regular rate and rhythm without noted murmurs, no JVD or lower extremity edema. ABDOMEN: Soft, non-tender, non-distended with bowel sounds. MUSCULOSKELETAL: No tenderness, deformities, or effusions noted on gross inspection. EXTREMITIES: No cyanosis, clubbing or edema. SKIN: Inspection of the skin reveals no rashes NEUROLOGIC: Alert and oriented x 4. Strength and sensation to light touch were grossly intact x 4. Medications Administered Discontinued Medications Generic Name Dose Route Start Last Admin Trade Name Freq PRN Reason Stop Dose Admin Acetaminophen 975 mg 10/31/22 12:05 10/31/22 13:30 Acetaminophen 325 Mg Tablet PO 10/31/22 12:06 975 mg ONCE ONE Administration Benzonatate 200 mg 10/31/22 12:41 10/31/22 13:30 Benzonatate 100 Mg Capsule PO 10/31/22 12:42 200 mg ONCE ONE Administration Ibuprofen 400 mg 10/31/22 12:05 10/31/22 13:30 Ibuprofen 400 Mg Tablet PO 10/31/22 12:06 400 mg ONCE ONE Administration Lidocaine/Diphenhydr/Alum/Mg/Simeth 10 ml 10/31/22 12:06 10/31/22 13:31 Mag&Al/Sim/Diphenhyd/Lidocaine 10 Ml Oral.Susp PO 10/31/22 12:07 10 ml ONCE ONE Administration Protocol Medical Decision Making Medical Decision Making MDM Narrative: 61-year-old female with history and clinical presentation, DDX: Viral illness, lower clinical suspicion for pneumonia or ACS in the possibility of acid reflux and urinary tract infection. I reviewed all investigations, there is no evidence of UTI, no pneumonia, no viral infection. Patient was offered combination analgesics, cough suppressant as well as a GI cocktail. On re-evaluation patient is feeling proved, chest x-ray does not demonstrate any infiltrate and otherwise my interpretation is in agreement with radiology's impression. Differential Diagnosis Differential Diagnoses: The differential diagnosis associated with the presentation includes Please see the discussion above Admission/Observation Consideration of admission/observation: Escalation of care including admission/observation considered Please see the discussion above Lab Data [facility] Lab Attestation statement: I reviewed the patient's lab results. Please see the discussion above Labs: Lab Results 10/31/22 10/31/22 Range/Units 11:39 14:19 Urine Color Yellow Urine Appearance Clear Urine pH 7.0 (5.0-9.0) Ur Specific [place] 1.015 (1.005-1.025) Urine Protein Negative (Neg-Trace) mg/dL Urine Glucose (UA) Negative (Negative) mg/dL Urine Ketones Negative (Negative) mg/dL Urine Blood Negative (Negative) Urine Nitrite Negative (Negative) Ur Leukocyte Esterase Negative (Negative) COVID-19 (RICK) Negative (Negative) COVID-19 Clin Com See Note Influenza Type A (SMITA) Negative (Negative) Influenza Type B (SMITA) Negative (Negative) Influenza A & B Note See Note Independent Interpretation I performed an independent interpretation of an: EKG Interpretation: Normal sinus rhythm, HR-77, no STEMI, NE/QRS/QTC is within normal limits. Radiology Impression Discussion of test interpretation with radiology: I have reviewed the radiologist's reading. Radiologist Impression: Please see the discussion above External Record Review External record reviewed: Outpatient record, Prior outpatient labs and Prior outpatient radiology Discharge Plan Discharge Clinical Impression: GERD (gastroesophageal reflux disease) Patient Disposition: Home, Self-Care Instructions: Diet for Stomach Ulcers and Gastritis (ED), Gastroesophageal Reflux Disease (ED) Additional Instructions: 1. Resume all home medications as prescribed. 2. Follow-up with your primary care provider on Wednesday morning. Return to the ER for any worsening symptoms. Prescriptions: No Action albuterol sulfate 2.5 mg /3 mL (0.083 %) solution for nebulization 2.5 mg inhalation Q4H PRN (Reason: for wheezing) Qty: 150 0RF albuterol sulfate [Ventolin HFA] 90 mcg/actuation HFA aerosol inhaler 2 puff PO Q6H PRN (Reason: for wheezing) 30 Days Qty: 18 6RF meclizine [Dramamine Less Drowsy] 25 mg tablet 25 mg PO TID PRN (Reason: dizziness) Qty: 20 0RF cyclobenzaprine 10 mg tablet 10 mg PO BEDTIME PRN (Reason: muscle spasm) Qty: 7 0RF beclomethasone dipropionate 80 mcg/actuation Aerosol 80 mcg INHALATION BID perphenazine 4 mg tablet 4 mg PO BID ibuprofen 600 mg tablet 600 mg PO BID PRN (Reason: headache) PreviDent 5000 Booster 5,000 UNITS packet 1.1 % PO USEASDIRECTD dicyclomine 20 mg tablet 20 mg PO TID PRN (Reason: abdominal pain) Qty: 14 0RF ondansetron 4 mg tablet,disintegrating 4 mg PO Q8H PRN (Reason: nausea and vomiting) Qty: 10 0RF doxepin 75 mg capsule 75 mg PO BEDTIME Adult Multivitamin Gummies 200 mcg tablet,chewable 1 tab PO DAILY midodrine 10 mg tablet 5 mg PO TID Rx Instructions: do not give last dose of day after 6PM or within 4 hrs of bedtime estazolam 1 mg tablet 3 mg PO BEDTIME Flovent HFA 220 mcg/actuation HFA aerosol inhaler 2 puff inhalation BID pyridoxine (vitamin B6) 100 mg tablet 100 mg PO DAILY 90 Days Qty: 90 3RF alendronate 70 mg tablet 70 mg PO QWEEK cholecalciferol (vitamin D3) 25 mcg (1,000 unit) tablet 25 mcg PO DAILY omeprazole 40 mg capsule,delayed release(DR/EC) 40 mg PO QAM lidocaine 5 % adhesive patch,medicated 0 patch topical venlafaxine 25 mg tablet 25 mg PO DAILY estazolam 2 mg tablet 2 mg PO BEDTIME magnesium oxide 400 mg (241.3 mg magnesium) tablet 400 mg PO DAILY levothyroxine 100 mcg tablet 100 mcg PO QAM aspirin 81 mg tablet,delayed release (DR/EC) 81 mg PO BEDTIME phentermine 37.5 mg tablet 37.5 mg PO QAM Saccharomyces boulardii [Daily Probiotic (S. boulardii)] 250 mg capsule 250 mg PO BID
[2022-10-31 12:02] LABS: COVID-19 Test Negative (Negative); IDNOW Serial# 55D5AD1C
[2022-10-31 12:03] LABS: IDNOW Serial# 9DB6401D; Influenza A Negative (Negative); Influenza B2 Negative (Negative)
[2022-10-31] MEDS: Benzonatate 100 MG CAPSULE 200 MG PO (13:30)
[2022-10-31] MEDS: Acetaminophen 325 MG TABLET 975 MG PO (13:30)
[2022-10-31] MEDS: Ibuprofen 400 MG TABLET PO (13:30)
[2022-10-31] MEDS: Mag&Al/Sim/Diphenhyd/Lidocaine 10 ML ORAL.SUSP PO (13:31)
[2022-10-31 14:22] VITALS: BP 126/67; PULSE 67; RESP 16; O2SAT 100
[2022-10-31 14:26] LABS: Appearance Urine Clear; Color Urine Yellow; Glucose Urine UA Negative (Negative); Leukocyte Esterase Urine Negative (Negative); Nitrite Urine Negative (Negative); Specific Gravity - Urine 1.015 (1.005-1.025); Urine Blood Negative (Negative); Urine Ketones Negative (Negative); Urine Protein Negative (Neg-Trace)
== END 2022-10-31 16:13 | disposition home or self-care (01) ==
PROVIDERS: Emergency Provider Student in an Organized Health Care Education/Training Program
DX: K21.9 Gastro-esophageal reflux disease without esophagitis (principal); R05.9 Cough, unspecified; R07.9 Chest pain, unspecified; R06.02 Shortness of breath; Z11.52 Encounter for screening for COVID-19
CPT/HCPCS: 71046; 81003; 87502; 87635; 93005; 99284

== ENCOUNTER 2022-11-05 09:56 | Outpatient (REF) | payer MEDICAID, SELFPAY ==
[2022-11-05 11:52] LABS: Free T4 (Free Thyroxine) 1.14 ng/dL (0.71-1.85); Thyroid Stimulating Hormone 1.07 uIU/mL (0.32-4.0)
[2022-11-13 06:29] LABS: Metanephrine, Free 31 pg/mL (<=57); Normetanephrines, Free 136 pg/mL (<=148); Total Metanephrine, Free 167 pg/mL (<=205)
== END 2022-11-05 09:57 | disposition home or self-care (01) ==
LOC: HO.LAB 09:56
PROVIDERS: Visit Provider Internal Medicine Endocrinology, Diabetes & Metabolism
DX: E03.9 Hypothyroidism, unspecified (principal); Z86.018 Personal history of other benign neoplasm
CPT/HCPCS: 36415; 83835; 84439; 84443

== ENCOUNTER 2022-11-19 12:33 | Emergency (ER) | payer MEDICAID, SELFPAY ==
[2022-11-19 12:40] VITALS: BP 116/80; PULSE 88
[2022-11-19 12:47] VITALS: BP 125/73; PULSE 76; RESP 16; TEMP 36.5; O2SAT 97; BMI 30.3
--- NOTE | 2022-11-19 13:18 | ED.DIZZY ---
HPI - Dizziness General Chief Complaint: Dizziness Stated Complaint: dizzy,w/fall w/r hip pain,+ccollar per ems Time Seen by Provider: 11/19/22 13:03 History of Present Illness HPI Narrative: Patient is a 61 year female with a history of vertigo. No history of coronary artery disease. Patient did not take her medication for vertigo. [place] dizzy subsequently fell. Question hitting head. Complaining of dizziness. There is no chest pain. There is no focal weakness. There is no pain on urination. Patient is from home. No abdominal pain. No diarrhea. No bloody stools. No changes in medication except for the noncompliance. Denies recreational drug use. Denies any alcohol abuse. Related Data Home Medications Medication Instructions Recorded Confirmed doxepin 75 mg capsule 75 mg PO BEDTIME 11/22/19 09/22/22 midodrine 10 mg tablet 5 mg PO TID 11/22/19 09/22/22 multivitamin with minerals-folic 1 tab PO DAILY 11/22/19 09/22/22 acid 200 mcg chewable tablet (Adult Multivitamin Gummies) estazolam 1 mg tablet 3 mg PO BEDTIME 06/06/20 09/22/22 fluticasone propionate 220 2 puff inhalation BID 12/30/20 09/22/22 mcg/actuation HFA aerosol inhaler (Flovent HFA) alendronate 70 mg tablet 70 mg PO QWEEK 06/03/22 09/22/22 cholecalciferol (vitamin D3) 25 25 mcg PO DAILY 06/03/22 09/22/22 mcg (1,000 unit) tablet PreviDent 5000 Booster 1.1 % PO USEASDIRECTD 06/04/22 09/22/22 beclomethasone dipropionate 80 80 mcg inhalation BID 06/04/22 09/22/22 mcg/actuation aerosol inhaler ibuprofen 600 mg tablet 600 mg PO BID PRN headache 06/04/22 09/22/22 perphenazine 4 mg tablet 4 mg PO BID 06/04/22 09/22/22 Saccharomyces boulardii 250 mg 250 mg PO BID 10/01/22 capsule (Daily Probiotic (S. boulardii)) aspirin 81 mg tablet,delayed 81 mg PO BEDTIME 10/01/22 release estazolam 2 mg tablet 2 mg PO BEDTIME 10/01/22 levothyroxine 100 mcg tablet 100 mcg PO QAM 10/01/22 lidocaine 5 % topical patch 0 patch topical 10/01/22 magnesium oxide 400 mg (241.3 mg 400 mg PO DAILY 10/01/22 magnesium) tablet omeprazole 40 mg capsule,delayed 40 mg PO QAM 10/01/22 release phentermine 37.5 mg tablet 37.5 mg PO QAM 10/01/22 venlafaxine 25 mg tablet 25 mg PO DAILY 10/01/22 Previous Rx's Medication Instructions Recorded meclizine 25 mg tablet (Dramamine 25 mg PO TID PRN dizziness #20 tabs 12/19/20 Less Drowsy) pyridoxine (vitamin B6) 100 mg 100 mg PO DAILY 90 days #90 tabs 05/15/21 tablet cyclobenzaprine 10 mg tablet 10 mg PO BEDTIME PRN muscle spasm 10/28/21 #7 tabs albuterol sulfate 2.5 mg/3 mL 2.5 mg (3 mL) inhalation Q4H PRN 08/13/22 (0.083 %) solution for nebulization for wheezing #150 mL dicyclomine 20 mg tablet 20 mg PO TID PRN abdominal pain 09/10/22 #14 tabs ondansetron 4 mg disintegrating 4 mg PO Q8H PRN nausea and 09/10/22 tablet vomiting #10 tabs albuterol sulfate 90 mcg/actuation 2 puff PO Q6H PRN for wheezing 30 10/29/22 aerosol inhaler (Ventolin HFA) days #18 grams Allergies Allergy/AdvReac Type Severity Reaction Status Date / Time nalbuphine [From Nubain] Allergy Severe Anaphylaxis Verified 11/19/22 12:47 Review of Systems Review of Systems: Yes all other systems are reviewed and are negative [facility] Past Medical History Attestation statement: The following information was validated with the patient. Medical History Nausea & vomiting Migraine Syncope Pseudotumor cerebri Kidney calculi Crystal arthropathy Right shoulder injury Kidney tumor COVID-19 vaccine administered Thyroid disease Colon polyp Diverticulosis of colon Bronchial asthma Acid reflux Surgical History History of esophagogastroduodenoscopy (EGD) History of surgery on wrist History of hysterectomy Previous section Hx laparoscopic cholecystectomy Hx of gastric bypass (03/12/15) Hx of colonoscopy Family History Family History Father Heart disease History of open heart surgery Mother Heart disease Social History Social History Household Members: None Household Members Other:: alone Are you a primary day care attendant to a significant other at home: No Do you presently have visiting nurse or other home services: No Alcohol intake: never Patient Tobacco Use Status: Former Tobacco user Quit Date: 2007 Tobacco use type: Cigarette Advance Directives: No Advance Directives Information Provided: Yes service: No Current occupational status: disabled Physical Exam Vital Signs: Vital Signs: Last Vital Signs Temp 97.7 F 11/19/22 12:47 Pulse 69 11/19/22 15:55 Resp 16 11/19/22 12:47 BP 140/90 H 11/19/22 15:55 Pulse Ox 97 11/19/22 12:47 O2 Del Method Room Air 11/19/22 12:47 BMI result Body Mass Index 30.3 Appearance: Alert. Oriented X3. No acute distress. Eyes: Pupils equal, round and reactive to light. ENT: Pharynx normal. Neck: Normal inspection. Neck supple. No lymph nodes noted. No crepitus CVS: Normal heart rate and rhythm. Pulses normal. Normal S1 and S2 Respiratory: No respiratory distress. Breath sounds normal. No Wheezing. No rales Abdomen: Soft and nontender. No rigidity. No distention. good BS x4 Skin: Skin warm and dry. Normal skin color. Normal skin turgor. Extremities: No lower extremity edema. Neurovascular intact to all extremities. No Lacerations. No Rash Neuro: Oriented X 3. No motor deficit. No sensory deficit. Moving all extermities. No slurred speech Medications Administered Discontinued Medications Generic Name Dose Route Start Last Admin Trade Name Freq PRN Reason Stop Dose Admin Sodium Chloride 1,000 mls @ 999 mls/hr 11/19/22 13:30 11/19/22 14:42 Ns IV 11/19/22 14:30 Infused .Q1H1M JESUS Infusion Meclizine HCl 25 mg 11/19/22 15:28 11/19/22 15:49 Meclizine Hcl 25 Mg Tablet PO 11/19/22 15:29 25 mg ONCE ONE Administration Meclizine HCl 25 mg 11/19/22 15:33 11/19/22 15:51 Meclizine Hcl 25 Mg Tablet PO 11/19/22 15:34 Not Given ONCE ONE Medical Decision Making Medical Decision Making [facility] Narrative: My interpretation the patient's EKG showed a sinus pattern heart rate is 60 UT QRS QTC within normal limits there is no acute ST segment elevation there is diffuse T-wave flattening and inversion noted. My interpretation patient's CT scan of the head grossly negative for any acute evidence of bleeding. I reviewed radiology reading of the CT scan C-spine. There is no gross fracture no malalignment. She was given a L of fluid. Doses of meclizine was given. Patient's troponin was negative. No evidence for ACS. Patient is hemoglobin is 12.4 there is no evidence for anemia. Patient's electrolytes showed normal BUN and creatinine. Urine was negative for any acute evidence of infection. Symptoms most likely be consistent with having peripheral vertigo. Symptoms reproduced with movement. Will discharge patient home have patient follow-up on an outpatient basis. Patient claims she hit her hip. X-ray the hip was grossly negative for any acute evidence of fracture. Chest x-ray showed no acute evidence of pneumonia pneumothorax. No mass. Differential Diagnosis Differential Diagnoses: The differential diagnosis associated with the presentation includes Intracranial bleed, vertigo Admission/Observation Consideration of admission/observation: Escalation of care including admission/observation considered Lab Data [facility] Lab Attestation statement: I reviewed the patient's lab results. 11/19/22 13:33 11/19/22 13:33 Labs: Lab Results 11/19/22 11/19/22 Range/Units 13:33 15:50 WBC 5.5 (4.8-10.8) X10*3/uL RBC 4.67 (4.20-5.50) X10*6/uL Hgb 12.4 (12.0-16.0) g/dl Hct 39.1 (37.0-47.0) % MCV 83.7 (80.0-98.0) fL MCH 26.6 L (27.0-33.0) pg MCHC 31.7 (31.0-35.0) g/dl RDW 15.7 (11.0-16.0) % Plt Count 264 (160-400) X10*3/uL MPV 9.8 (9.4-12.3) fL Immature Gran % (Auto) 0.2 (0.0-0.4) % Neut % (Auto) 58.7 (45-73) % Lymph % (Auto) 23.4 (20-40) % [place] % (Auto) 13.0 H (2-11) % Eos % (Auto) 4.0 (0-4) % Baso % (Auto) 0.7 (0-2) % Lymph # (Auto) 1.3 (1.2-4.9) X10*3/uL [place] # (Auto) 0.7 (0.1-1.2) X10*3/uL Eos # (Auto) 0.2 (0.0-0.4) X10*3/uL Baso # (Auto) 0.0 (0.0-0.2) X10*3/uL Abs Immat Gran (auto) 0.01 (0.00-0.03) X10*3/uL Absolute Neuts (auto) 3.2 (2.0-8.3) x10*3/uL Absolute Nucleated RBC 0.000 (0.0-0.012) X10*3/uL Nucleated RBC % (auto) 0.0 (0.0-0.2) /100WBC Sodium 140 (135-145) mmol/L Potassium 4.3 (3.3-5.1) mmol/L Chloride 108 (96-108) mmol/L Carbon Dioxide 22 (22-29) mmol/L Anion Gap 14 (12-20) BUN 12 (9-16) mg/dL Creatinine 0.74 (0.5-1.4) mg/dL Estim Creat Clear Calc 85.5 Estimated GFR > 60 Random Glucose 82 (60-115) mg/dL Calcium 9.1 D (8.4-10.2) mg/dL Total Bilirubin 0.2 (0.0-1.0) mg/dL Direct Bilirubin < 0.2 (0.0-0.5) mg/dL AST 24 (5-31) U/L ALT 20 (0-31) U/L Alkaline Phosphatase 67 (39-117) U/L Troponin I High Sens < 2.7 (<3.5-17.0) ng/L Total Protein 6.5 (6.5-8.0) g/dL Albumin 3.5 (3.5-5.0) g/dL Urine Color Yellow Urine Appearance Clear Urine pH 8.5 (5.0-9.0) Ur Specific [place] 1.015 (1.005-1.025) Urine Protein Negative (Neg-Trace) mg/dL Urine Glucose (UA) Negative (Negative) mg/dL Urine Ketones Negative (Negative) mg/dL Urine Blood Negative (Negative) Urine Nitrite Negative (Negative) Ur Leukocyte Esterase Trace H (Negative) Urine RBC 0-2 (0-2) /HPF Urine WBC 0-5 (0-5) /HPF Ur Squamous Epith Cells 0-2 (0-2) /HPF Urine Bacteria None Seen (None Seen) Hyaline Casts 0-2 (0-2) /LPF Urine Opiates Screen Not Detected (Not Detect) Urine Fentanyl Screen Not Detected (Not Detect) Ur Barbiturates Screen Not Detected (Not Detect) Ur Phencyclidine Scrn Not Detected (Not Detect) Ur Amphetamines Screen Not Detected (Not Detect) U Benzodiazepines Scrn POSITIVE H (Not Detect) Urine Cocaine Screen Not Detected (Not Detect) U Marijuana (THC) Screen Not Detected (Not Detect) Independent Interpretation I performed an independent interpretation of an: EKG (EKG showed a sinus pattern heart rate is 60 UT QRS QTC within normal limits no acute ST segment elevation), Plain X-Ray and CT Scan (CT scan of the head was grossly negative for any acute evidence of bleed) Interpretation: Chest x-ray showed no acute infiltrate. Hip x-ray showed no acute fracture Radiology Impression Discussion of test interpretation with radiology: I have reviewed the radiologist's reading. Independent Historian Clinical information obtained from an independent historian. History obtained from or confirmed by: Spouse External Record Review External record reviewed: Office record Previous office record was reviewed. Chronic Conditions History of vertigo Discharge Plan Discharge Clinical Impression: Vertigo Patient Disposition: Home, Self-Care Instructions: Vertigo (DC) Prescriptions: No Action albuterol sulfate 2.5 mg /3 mL (0.083 %) solution for nebulization 2.5 mg inhalation Q4H PRN (Reason: for wheezing) Qty: 150 0RF albuterol sulfate [Ventolin HFA] 90 mcg/actuation HFA aerosol inhaler 2 puff PO Q6H PRN (Reason: for wheezing) 30 Days Qty: 18 6RF meclizine [Dramamine Less Drowsy] 25 mg tablet 25 mg PO TID PRN (Reason: dizziness) Qty: 20 0RF cyclobenzaprine 10 mg tablet 10 mg PO BEDTIME PRN (Reason: muscle spasm) Qty: 7 0RF beclomethasone dipropionate 80 mcg/actuation Aerosol 80 mcg INHALATION BID perphenazine 4 mg tablet 4 mg PO BID ibuprofen 600 mg tablet 600 mg PO BID PRN (Reason: headache) PreviDent 5000 Booster 5,000 UNITS packet 1.1 % PO USEASDIRECTD dicyclomine 20 mg tablet 20 mg PO TID PRN (Reason: abdominal pain) Qty: 14 0RF ondansetron 4 mg tablet,disintegrating 4 mg PO Q8H PRN (Reason: nausea and vomiting) Qty: 10 0RF doxepin 75 mg capsule 75 mg PO BEDTIME Adult Multivitamin Gummies 200 mcg tablet,chewable 1 tab PO DAILY midodrine 10 mg tablet 5 mg PO TID Rx Instructions: do not give last dose of day after 6PM or within 4 hrs of bedtime estazolam 1 mg tablet 3 mg PO BEDTIME Flovent HFA 220 mcg/actuation HFA aerosol inhaler 2 puff inhalation BID pyridoxine (vitamin B6) 100 mg tablet 100 mg PO DAILY 90 Days Qty: 90 3RF alendronate 70 mg tablet 70 mg PO QWEEK cholecalciferol (vitamin D3) 25 mcg (1,000 unit) tablet 25 mcg PO DAILY omeprazole 40 mg capsule,delayed release(DR/EC) 40 mg PO QAM lidocaine 5 % adhesive patch,medicated 0 patch topical venlafaxine 25 mg tablet 25 mg PO DAILY estazolam 2 mg tablet 2 mg PO BEDTIME magnesium oxide 400 mg (241.3 mg magnesium) tablet 400 mg PO DAILY levothyroxine 100 mcg tablet 100 mcg PO QAM aspirin 81 mg tablet,delayed release (DR/EC) 81 mg PO BEDTIME phentermine 37.5 mg tablet 37.5 mg PO QAM Saccharomyces boulardii [Daily Probiotic (S. boulardii)] 250 mg capsule 250 mg PO BID Referrals: [facility] [Primary Care Provider] - 11/23/22
[2022-11-19 13:41] LABS: MANUAL DIFF FLAG NO
[2022-11-19 13:42] LABS: Basophils Percent Auto 0.7 % (0-2); Eosinophils Absolute Auto 0.2 X10*3/uL (0.0-0.4); Hematocrit 39.1 % (37.0-47.0); Hemoglobin 12.4 g/dl (12.0-16.0); Imm Gran Abs Auto 0.01 X10*3/uL (0.00-0.03); Imm Gran Pct Auto 0.2 % (0.0-0.4); Lymphocytes Absolute Auto 1.3 X10*3/uL (1.2-4.9); Lymphocytes Percent Auto 23.4 % (20-40); Mean Corpuscular HGB Conc 31.7 g/dl (31.0-35.0); Mean Corpuscular Hemoglobin 26.6 pg (27.0-33.0); Mean Corpuscular Volume 83.7 fL (80.0-98.0); Mean Platelet Volume 9.8 fL (9.4-12.3); Monocytes Absolute Auto 0.7 X10*3/uL (0.1-1.2); Neutrophils Absolute Auto 3.2 x10*3/uL (2.0-8.3); Neutrophils Percent Auto 58.7 % (45-73); Platelet Count 264 X10*3/uL (160-400); Red Blood Count 4.67 X10*6/uL (4.20-5.50); Red Cell Distribution Width 15.7 % (11.0-16.0); White Blood Count 5.5 X10*3/uL (4.8-10.8)
--- NOTE | 2022-11-19 13:42 | PC.NURSE ---
alert and oriented, respirations even and unlabored. collared by EMS, unsure of head strike. reporting dizziness upon any movement. states she is having some numbness to right leg, +cms. iv established, labs drawn and sent with fluids infusing at this time. pt continues to request removal of c-collar, made aware she needs to await CT scan
[2022-11-19 13:57] LABS: Alanine Aminotransferase 20 U/L (0-31); Albumin Level 3.5 g/dL (3.5-5.0); Alkaline Phosphatase 67 U/L (39-117); Anion Gap 14 (12-20); Aspartate Amino Transferase 24 U/L (5-31); Bilirubin Direct < 0.2 mg/dL (0.0-0.5); Bilirubin Total 0.2 mg/dL (0.0-1.0); Blood Urea Nitrogen 12 mg/dL (9-16); Calcium 9.1 mg/dL (8.4-10.2); Carbon Dioxide 22 mmol/L (22-29); Chloride 108 mmol/L (96-108); Creatinine Clr Calc Pharmacy 85.5; Estimated Glomerular Filt Rate > 60; Glucose Random 82 mg/dL (60-115); Potassium 4.3 mmol/L (3.3-5.1); Sodium 140 mmol/L (135-145); Total Protein 6.5 g/dL (6.5-8.0)
[2022-11-19 14:05] LABS: Troponin-I High Sensitivity < 2.7 ng/L (<3.5-17.0)
--- NOTE | 2022-11-19 15:42 | PC.NURSE ---
attempted to assist patient to use bedpan, pt unable to urinate. cleared by provider of c-collar, two assist using bedside commode, pt reporting increased dizziness upon sitting up and standing.
[2022-11-19 15:53] VITALS: BP 127/71; PULSE 58
[2022-11-19 15:54] VITALS: BP 133/76; PULSE 62
[2022-11-19 15:55] VITALS: BP 140/90; PULSE 69
--- NOTE | 2022-11-19 16:30 | PC.NURSE ---
able to stand slowly with one assist to obtain orthostatic vital signs, pt tolerated fairly
--- NOTE | 2022-11-19 17:30 | PC.NURSE ---
awaiting results of x-rays. pt provided with water and crackers, complaining that she is hungry and has not eaten all day long.
== END 2022-11-19 18:37 | disposition home or self-care (01) ==
PROVIDERS: Emergency Provider Emergency Medicine Emergency Medical Services
DX: R42 Dizziness and giddiness (principal); Z87.891 Personal history of nicotine dependence; Z98.84 Bariatric surgery status; Z79.899 Other long term (current) drug therapy; Z79.82 Long term (current) use of aspirin
CPT/HCPCS: 36415; 70450; 71045; 72125; 73502; 80048; 80076; 80307; 81001; 84484; 85025; 93005; 96360; 99284; 99285

== ENCOUNTER 2022-11-27 12:08 | Observation (INO) | payer MEDICAID, SELFPAY ==
[2022-11-27] VITALS (7 sets, daily range): BP systolic 109–130; BP diastolic 51–82; PULSE 64–81; RESP 16–18; TEMP 36.4–36.8; O2SAT 95–100; BMI 34.3; BMI 33.0
--- NOTE | 2022-11-27 13:33 | ED.DIZZY ---
HPI - Dizziness General Chief Complaint: Dizziness Stated Complaint: FELL BACKWARDS R KNEE PAIN Time Seen by Provider: 11/27/22 13:14 Source: patient Mode of arrival: ambulatory Limitations: no limitations History of Present Illness HPI Narrative: Patient with multiple episodes of vertigo, she has had vertigo in the past. This attack has been consistent for the last 3 days. Related Data Home Medications Medication Instructions Recorded Confirmed doxepin 75 mg capsule 75 mg PO BEDTIME 11/22/19 11/27/22 multivitamin with minerals-folic 1 tab PO DAILY 11/22/19 11/27/22 acid 200 mcg chewable tablet (Adult Multivitamin Gummies) estazolam 1 mg tablet 3 mg PO BEDTIME 06/06/20 11/27/22 fluticasone propionate 220 2 puff inhalation BID 12/30/20 11/27/22 mcg/actuation HFA aerosol inhaler (Flovent HFA) alendronate 70 mg tablet 70 mg PO TU 06/03/22 11/27/22 cholecalciferol (vitamin D3) 25 25 mcg PO DAILY 06/03/22 11/27/22 mcg (1,000 unit) tablet perphenazine 4 mg tablet 4 mg PO BID@1200,2100 06/04/22 11/27/22 levothyroxine 100 mcg tablet 100 mcg PO DAILY@0600 10/01/22 11/27/22 lidocaine 5 % topical patch 1 patch topical DAILY 10/01/22 11/27/22 magnesium oxide 400 mg (241.3 mg 400 mg PO DAILY@1200 10/01/22 11/27/22 magnesium) tablet omeprazole 40 mg capsule,delayed 40 mg PO DAILY@0630 10/01/22 11/27/22 release venlafaxine 25 mg tablet 25 mg PO DAILY@1200 10/01/22 11/27/22 pyridoxine (vitamin B6) 100 mg 200 mg PO DAILY@1200 11/27/22 11/27/22 tablet Previous Rx's Medication Instructions Recorded meclizine 25 mg tablet (Dramamine 25 mg PO TID PRN dizziness #20 tabs 12/19/20 Less Drowsy) ondansetron 4 mg disintegrating 4 mg PO Q8H PRN nausea and 09/10/22 tablet vomiting #10 tabs albuterol sulfate 90 mcg/actuation 2 puff PO Q6H PRN for wheezing 30 10/29/22 aerosol inhaler (Ventolin HFA) days #18 grams Allergies Allergy/AdvReac Type Severity Reaction Status Date / Time nalbuphine [From Nubain] Allergy Severe Anaphylaxis Verified 11/19/22 12:47 Review of Systems Review of Systems: Yes all other systems are reviewed and are negative Neurologic: Denies Sensory deficit (Neuro) [facility] Past Medical History Medical History Nausea & vomiting Migraine Syncope Pseudotumor cerebri Kidney calculi Crystal arthropathy Right shoulder injury Kidney tumor COVID-19 vaccine administered Thyroid disease Colon polyp Diverticulosis of colon Bronchial asthma Acid reflux Surgical History History of esophagogastroduodenoscopy (EGD) History of surgery on wrist History of hysterectomy Previous section Hx laparoscopic cholecystectomy Hx of gastric bypass (03/12/15) Hx of colonoscopy Family History Family History Father Heart disease History of open heart surgery Mother Heart disease Social History Social History Household Members: None Household Members Other:: alone Are you a primary field care coordinator to a significant other at home: No Do you presently have visiting nurse or other home services: No Alcohol intake: never Patient Tobacco Use Status: Former Tobacco user Quit Date: 2007 Tobacco use type: Cigarette Advance Directives: No service: No Current occupational status: disabled Physical Exam Vital Signs: Vital Signs: Last Vital Signs Temp 98.1 F 11/27/22 18:00 Pulse 71 11/27/22 20:19 Resp 16 11/27/22 20:19 BP 109/51 L 11/27/22 20:19 Pulse Ox 98 11/27/22 20:19 O2 Del Method Room Air 11/27/22 20:19 BMI result Body Mass Index 34.3 Const: General: healthy appearing Nutritional Appearance: average body habitus Orientation/consciousness: oriented to person and patient oriented x3 Limitations: no limitations HEENT: Head: Yes normal to inspection Ears: external ears normal General nose exam: Normal external nose present Mouth: Normal oral and palatal mucosa present and oropharynx normal Throat: Yes posterior oropharynx normal Eyes: General: appearance normal, both eyes and all related structures Neck: Other: supple Neck: Yes normal visual inspection Chest: Chest palpation & inspection: normal inspection of the chest Resp: Auscultation: clear to auscultation bilaterally Cardio: Jugular venous distension: no JVD Rate: regular rate Rhythm: regular rhythm Heart sounds: S1 normal heart sound present and S2 normal heart sound present GI: Inspection: Yes normal to inspection Palpation (GI): Soft to palpation, nontender and No hepatosplenomegaly present Auscultation: normal bowel sounds : General: Yes no CVA tenderness Back/Spine/Pelvis: Back: no CVA tenderness Skin: General skin exam: no rashes or lesions noted Neuro: General: oriented to person and patient oriented x3 Cranial nerves: Yes CN's II-XII intact bilaterally Motor exam (neuro): 5/5 motor strength present throughout Sensory Exam: No Sensory deficit (Neuro) Extrem: General: Yes normal to inspection Psych: Appearance: grossly normal Course Reevaluation(s) Reevaluation #1: Patient now vomiting and dizzy will admit for intractable vertigo Time: 16:27 Medications Administered Discontinued Medications Generic Name Dose Route Start Last Admin Trade Name Freq PRN Reason Stop Dose Admin Sodium Chloride 1,000 mls @ 250 mls/hr 11/27/22 13:45 11/27/22 19:03 Ns IVCONT 11/27/22 17:44 Infused .Q4H JESUS Infusion Lorazepam 1 mg 11/27/22 16:43 11/27/22 16:49 Lorazepam 2 Mg/Ml Vial IVPUSH 11/27/22 16:44 1 mg ONCE ONE Administration Meclizine HCl 50 mg 11/27/22 13:36 11/27/22 14:02 Meclizine Hcl 25 Mg Tablet PO 11/27/22 13:37 50 mg ONCE ONE Administration Meclizine HCl 25 mg 11/27/22 18:48 11/27/22 19:02 Meclizine Hcl 25 Mg Tablet PO 11/27/22 18:49 25 mg ONCE ONE Administration Ondansetron HCl 4 mg 11/27/22 16:43 11/27/22 16:47 Ondansetron Hcl 4 Mg/2 Ml Vial IVPUSH 11/27/22 16:44 4 mg ONCE ONE Administration Medical Decision Making Differential Diagnosis Differential Diagnoses: The differential diagnosis associated with the presentation includes (vertigo, vomiting, weakness) Admission/Observation Consideration of admission/observation: Escalation of care including admission/observation considered (upon arrival patient was considered for admission) Consult Healthcare Provider Management of the patient was discussed with: Hospitalist Lab Data [facility] Lab Attestation statement: I reviewed the patient's lab results. 11/27/22 13:58 11/27/22 13:58 Labs: Lab Results 11/27/22 Range/Units 13:58 WBC 6.9 (4.8-10.8) X10*3/uL RBC 5.21 (4.20-5.50) X10*6/uL Hgb 13.8 (12.0-16.0) g/dl Hct 43.7 (37.0-47.0) % MCV 83.9 (80.0-98.0) fL MCH 26.5 L (27.0-33.0) pg MCHC 31.6 (31.0-35.0) g/dl RDW 15.7 (11.0-16.0) % Plt Count 265 (160-400) X10*3/uL MPV 9.7 (9.4-12.3) fL Immature Gran % (Auto) 0.3 (0.0-0.4) % Neut % (Auto) 63.2 (45-73) % Lymph % (Auto) 22.3 (20-40) % Lane % (Auto) 10.8 (2-11) % Eos % (Auto) 2.5 (0-4) % Baso % (Auto) 0.9 (0-2) % Lymph # (Auto) 1.5 (1.2-4.9) X10*3/uL Lane # (Auto) 0.7 (0.1-1.2) X10*3/uL Eos # (Auto) 0.2 (0.0-0.4) X10*3/uL Baso # (Auto) 0.1 (0.0-0.2) X10*3/uL Abs Immat Gran (auto) 0.02 (0.00-0.03) X10*3/uL Absolute Neuts (auto) 4.3 (2.0-8.3) x10*3/uL Absolute Nucleated RBC 0.000 (0.0-0.012) X10*3/uL Nucleated RBC % (auto) 0.0 (0.0-0.2) /100WBC Sodium 139 (135-145) mmol/L Potassium 4.6 (3.3-5.1) mmol/L Chloride 105 (96-108) mmol/L Carbon Dioxide 23 (22-29) mmol/L Anion Gap 16 (12-20) BUN 12 (9-16) mg/dL Creatinine 0.76 (0.5-1.4) mg/dL Estim Creat Clear Calc 78.5 Estimated GFR > 60 Random Glucose 75 (60-115) mg/dL Calcium 9.9 D (8.4-10.2) mg/dL Independent Interpretation I performed an independent interpretation of an: EKG (sinus [address] or twave changes) Independent Historian Clinical information obtained from an independent historian. History obtained from or confirmed by: Friend External Record Review External record reviewed: Outpatient record and Prior outpatient radiology Tests considered The following testing was considered but not selected: MRI of brain considered but patient just had one at the end of april Discharge Plan Discharge Clinical Impression: Vertigo, Nausea & vomiting Patient Disposition: Admitted As Inpatient
--- NOTE | 2022-11-27 13:36 | ECG_ITS ---
Test Reason : VERTIGO Blood Pressure : / mmHG Vent. Rate : 058 BPM Atrial Rate : 058 BPM P-R Int : 176 ms QRS Dur : 074 ms QT Int : 400 ms P-R-T Axes : 023 010 011 degrees QTc Int : 392 ms Sinus bradycardia Nonspecific T wave abnormality Abnormal ECG When compared with ECG of 19-NOV-2022 13:18, No significant change was found Referred By: Ayan Martins Electronically Signed By:DANO SIDHU MD
[2022-11-27 14:02] LABS: MANUAL DIFF FLAG NO
[2022-11-27] MEDS: Meclizine HCl 25 MG TABLET 50 MG PO (14:02)
[2022-11-27 14:04] LABS: Basophils Absolute Auto 0.1 X10*3/uL (0.0-0.2); Basophils Percent Auto 0.9 % (0-2); Eosinophils Absolute Auto 0.2 X10*3/uL (0.0-0.4); Eosinophils Percent Auto 2.5 % (0-4); Hematocrit 43.7 % (37.0-47.0); Hemoglobin 13.8 g/dl (12.0-16.0); Imm Gran Abs Auto 0.02 X10*3/uL (0.00-0.03); Imm Gran Pct Auto 0.3 % (0.0-0.4); Lymphocytes Absolute Auto 1.5 X10*3/uL (1.2-4.9); Lymphocytes Percent Auto 22.3 % (20-40); Mean Corpuscular HGB Conc 31.6 g/dl (31.0-35.0); Mean Corpuscular Hemoglobin 26.5 pg (27.0-33.0); Mean Corpuscular Volume 83.9 fL (80.0-98.0); Mean Platelet Volume 9.7 fL (9.4-12.3); Monocytes Absolute Auto 0.7 X10*3/uL (0.1-1.2); Monocytes Percent Auto 10.8 % (2-11); Neutrophils Absolute Auto 4.3 x10*3/uL (2.0-8.3); Neutrophils Percent Auto 63.2 % (45-73); Platelet Count 265 X10*3/uL (160-400); Red Blood Count 5.21 X10*6/uL (4.20-5.50); Red Cell Distribution Width 15.7 % (11.0-16.0); White Blood Count 6.9 X10*3/uL (4.8-10.8)
[2022-11-27] MEDS: 0.9 % Sodium Chloride 1,000 ML 250 ML IVCONT (14:05)
[2022-11-27 14:32] LABS: Anion Gap 16 (12-20); Blood Urea Nitrogen 12 mg/dL (9-16); Calcium 9.9 mg/dL (8.4-10.2); Carbon Dioxide 23 mmol/L (22-29); Chloride 105 mmol/L (96-108); Creatinine Clr Calc Pharmacy 78.5; Estimated Glomerular Filt Rate > 60; Glucose Random 75 mg/dL (60-115); Potassium 4.6 mmol/L (3.3-5.1); Sodium 139 mmol/L (135-145)
[2022-11-27] MEDS: ondansetron HCL 4 MG/2 ML VIAL IVPUSH (16:47)
[2022-11-27] MEDS: LORazepam 2 MG/ML VIAL 1 MG IVPUSH (16:49)
--- NOTE | 2022-11-27 18:28 | PHA.MEDREC ---
Pharmacy Consult ? Medication Reconciliation Pharmacy has completed the medication reconciliation. Patient poor historian, only able to name a few medications. Patient worried about not being able to take her doxepin and estazolam to help her sleep, noted that we did not have the estazolam on formulary and asked if she could have someone bring it in, to which she said no one has a jimenez to her house. Used claim history and patient verification for med list.
[2022-11-27] MEDS: Meclizine HCl 25 MG TABLET PO (19:02)
--- NOTE | 2022-11-27 20:20 | PC.NURSE ---
Addendum entered by Yifan Cruz 11/27/22 21:00: nsr on monitor 71 bpm. Original Note: pt reporting increased dizziness; ed provider Dr. Martins made aware no new orders at this time. vss. call smith within reach.
--- NOTE | 2022-11-27 20:31 | P.HPHOSP_ITS ---
History of Present Illness Date of Service: 11/27/22 Attending physician on admission: Do Monsivais Chief Complaint: Dizziness Pt is a 62-year-old female with a PMH significant for?GERD, mild intermittent asthma, benign renal tumor, migraines, hypothyroidism, diverticulosis, and hx of gastric bypass who presents to the ED with?worseing dizziness and weakness. Patient states she has been experiencing episodes of intermittent dizziness for the past 2 weeks. Patient cannot identify any aggravating or relieving factors, reports episodes can occur while stand, sitting, or laying in bed. Patient cannot differentiate whether it feels like the room is spinning or she is spinning. Reports often losing her balance when episodes occur, and falling to the floor if she is either standing or sitting in a chair. Patient presented 1 week prior to the emergency department on 11/19/2022 for evaluation of fall with head strike secondary to dizziness. Imaging chest x-ray, hip x-ray, and cervical spine CT negative for acute fractures or subluxation. CT of head negative for acute intracranial process. Patient presents again to the emergency room today due to worsening dizziness, and falling in the hallway at her apartment. Patient states often feels her heart racing when episodes occur, and often has associated nausea with intermittent vomiting. Of note, patient has had a prescription for meclizine for similar episodes of vertigo in the past, though she reports current symptoms are ?different? and ?worse? than prior. Patient also reports a history of pseudotumor cerebri, though patient's 3 head CTs and 1 brain MRI in past 2 years do not mention similar findings. In the ED patient was afebrile with slightly soft BP of 118/54. Labs were grossly unremarkable. No leukocytosis. Stable H&H. Electrolytes WNL. Renal function baseline. EKG demonstrated sinus bradycardia with nonspecific T-wave inversions in leads V1 and V3 but no evidence of ST elevations or depressions. Pt was treated with meclizine, IVF, ondansetron, an Ativan. Pt will be admitted to the hospital under observation for treatment and further evaluation of likely benign paroxysmal positional vertigo. Review of Systems 2 Review of Systems: Dizziness/vertigo History of recent falls Nausea, occasional vomiting Palpitations No chest pain/pressure Denies SOB No fever, chills, abdominal pain PMFSH Medical History Nausea & vomiting Migraine Syncope Pseudotumor cerebri Kidney calculi Crystal arthropathy Right shoulder injury Kidney tumor COVID-19 vaccine administered Thyroid disease Colon polyp Diverticulosis of colon Bronchial asthma Acid reflux Family History Father Heart disease History of open heart surgery Mother Heart disease Surgical History History of esophagogastroduodenoscopy (EGD) History of surgery on wrist History of hysterectomy Previous section Hx laparoscopic cholecystectomy Hx of gastric bypass (03/12/15) Hx of colonoscopy Social History Household Members: None Household Members Other:: alone Are you a primary care management specialist to a significant other at home: No Do you presently have visiting nurse or other home services: No Alcohol intake: never Patient Tobacco Use Status: Former Tobacco user Quit Date: 2007 Tobacco use type: Cigarette Advance Directives: No Nutrition Risks: No Nutritional Risk service: No Current occupational status: disabled Meds Allergies Allergy/AdvReac Type Severity Reaction Status Date / Time nalbuphine [From Nubain] Allergy Severe Anaphylaxis Verified 11/19/22 12:47 Home Medications Medication Instructions Recorded Confirmed Last Taken Type doxepin 75 mg capsule 75 mg PO BEDTIME 11/22/19 11/27/22 Unknown History multivitamin with minerals-folic 1 tab PO DAILY 11/22/19 11/27/22 Unknown History acid 200 mcg chewable tablet (Adult Multivitamin Gummies) estazolam 1 mg tablet 3 mg PO BEDTIME 06/06/20 11/27/22 Unknown History fluticasone propionate 220 2 puff inhalation BID 12/30/20 11/27/22 Unknown History mcg/actuation HFA aerosol inhaler (Flovent HFA) alendronate 70 mg tablet 70 mg PO TU 06/03/22 11/27/22 2 Weeks Ago History ~11/13/22 cholecalciferol (vitamin D3) 25 25 mcg PO DAILY 06/03/22 11/27/22 Unknown History mcg (1,000 unit) tablet perphenazine 4 mg tablet 4 mg PO BID@1200,2100 06/04/22 11/27/22 Unknown History levothyroxine 100 mcg tablet 100 mcg PO DAILY@0600 10/01/22 11/27/22 11/27/22 History lidocaine 5 % topical patch 1 patch topical DAILY 10/01/22 11/27/22 Unknown History magnesium oxide 400 mg (241.3 mg 400 mg PO DAILY@1200 10/01/22 11/27/22 Unknown History magnesium) tablet omeprazole 40 mg capsule,delayed 40 mg PO DAILY@0630 10/01/22 11/27/22 Unknown History release venlafaxine 25 mg tablet 25 mg PO DAILY@1200 10/01/22 11/27/22 Unknown History pyridoxine (vitamin B6) 100 mg 200 mg PO DAILY@1200 11/27/22 11/27/22 Unknown History tablet Physical Exam 2 Vital Signs and Narrative: Vital Signs: Last Vital Signs Temp 98.1 F 11/27/22 18:00 Pulse 75 11/27/22 18:00 Resp 16 11/27/22 18:00 BP 118/54 L 11/27/22 18:00 Pulse Ox 100 11/27/22 18:00 O2 Del Method Room Air 11/27/22 18:00 BMI result Body Mass Index 34.3 Constitutional: Alert, in no acute distress. Mental Status: Oriented to person, place and time. Eyes: Pupils are equal, round, and reactive to light. Ear, Nose, and Throat: Oropharynx clear, mucous membranes moist. Ears and nose without deformities. Trachea midline. Respiratory: Clear to auscultation bilaterally. No wheezing, rales, or rhonchi. Cardiovascular: S1, S2 regular. No murmurs, rubs, or gallops. Gastrointestinal: Abdomen soft, non-tender, non-distended. Normal bowel sounds. Neurologic: Cranial nerves II-XII are grossly intact bilaterally. No focal neurological deficits. Moves all extremities spontaneously. Skin: No rashes or lesions noted. Musculoskeletal: No cyanosis or clubbing. Extremities: No edema. Psychiatric: Normal mood and affect. Results Labs 11/27/22 13:58 11/27/22 13:58 Labs: Laboratory Results - last 24 hr 11/27/22 13:58 MCV 83.9 MCH 26.5 L MCHC 31.6 RDW 15.7 Plt Count 265 MPV 9.7 Immature Gran % (Auto) 0.3 Neut % (Auto) 63.2 Lymph % (Auto) 22.3 [place] % (Auto) 10.8 Eos % (Auto) 2.5 Baso % (Auto) 0.9 Lymph # (Auto) 1.5 [place] # (Auto) 0.7 Eos # (Auto) 0.2 Baso # (Auto) 0.1 Abs Immat Gran (auto) 0.02 Absolute Neuts (auto) 4.3 Absolute Nucleated RBC 0.000 Nucleated RBC % (auto) 0.0 Anion Gap 16 Estim Creat Clear Calc 78.5 Estimated GFR > 60 Random Glucose 75 Calcium 9.9 D Assessment and Plan (1) Dizziness: Status: Acute Plan Pt is a 62-year-old female with a PMH significant for?GERD, mild intermittent asthma, benign renal tumor, migraines, hypothyroidism, diverticulosis, and hx of gastric bypass who presents to the ED with?worseing dizziness and weakness. Pt will be admitted to the hospital under observation for treatment and further evaluation of likely benign paroxysmal positional vertigo. Dizziness Patient with 2+ weeks of episodic dizziness Most likely BPPV, Meniere disease or vestibular neuritis less likely Patient presented with similar symptoms 1 week prior, CT of head negative for acute pathology Patient given meclizine, IVF, ondansetron, lorazepam in ED Will continue meclizine, ondansetron PT consult for possible [place] maneuver Patient will likely need tubular rehab outpatient Hypothyroidism Continue levothyroxine Mild intermittent asthma Not in acute exacerbation Continue home inhalers Mood disorder Continue home meds Full Code Attending:?Dr. Monsivais DVT Prophylaxis: Lovenox Patient be admitted to the hospital under observation for treatment further evaluation of intractable dizziness with close monitoring and specialist intervention tomorrow. Time Spent With Patient Time: Total time managing care of this patient today ____ minutes. Quality Stroke Does the patient have a stroke diagnosis?: No VTE Prior VTE?: No VTE Risk Level:: Medical - moderate - high VTE Device Contraindication: Treatment Not Indicated VTE Drug Contraindication: N/A - Med Ordered
--- NOTE | 2022-11-27 20:58 | PC.NURSE ---
admitting PA at bedside. pt reports dizziness has resolved with laying down; some dizziness when changing positions. pt requesting food.
--- NOTE | 2022-11-27 21:51 | PC.NURSE ---
pt tolerating po intake. pt reports dizziness; able to transfer to commode with steady gait. report given to maritza casarez rn.
[2022-11-27] MEDS: 0.9 % Sodium Chloride Flush 3 ML SYRINGE IVFLUSH (22:15)
[2022-11-27] MEDS: Enoxaparin Sodium 40 MG/0.4 ML SYRINGE SUBCUT (22:15)
[2022-11-27] MEDS: Melatonin 3 MG TABLET 6 MG PO (22:27)
[2022-11-28] VITALS (7 sets, daily range): BP systolic 92–135; BP diastolic 52–84; PULSE 59–74; RESP 16–18; TEMP 36.2–36.6; O2SAT 94–98
[2022-11-28] MEDS: Meclizine HCl 25 MG TABLET PO ×2 (04:02→10:07)
[2022-11-28] MEDS: Omeprazole 40 MG CAPSULE.DR PO (05:54)
[2022-11-28] MEDS: Levothyroxine Sodium 100 MCG TABLET PO (05:54)
[2022-11-28 06:02] LABS: MANUAL DIFF FLAG NO
[2022-11-28 06:07] LABS: Basophils Percent Auto 0.7 % (0-2); Eosinophils Absolute Auto 0.2 X10*3/uL (0.0-0.4); Eosinophils Percent Auto 2.8 % (0-4); Hemoglobin 12.4 g/dl (12.0-16.0); Imm Gran Abs Auto 0.02 X10*3/uL (0.00-0.03); Imm Gran Pct Auto 0.3 % (0.0-0.4); Lymphocytes Absolute Auto 1.7 X10*3/uL (1.2-4.9); Lymphocytes Percent Auto 27.7 % (20-40); Mean Corpuscular Hemoglobin 26.3 pg (27.0-33.0); Mean Corpuscular Volume 84.9 fL (80.0-98.0); Mean Platelet Volume 10.1 fL (9.4-12.3); Monocytes Absolute Auto 0.7 X10*3/uL (0.1-1.2); Monocytes Percent Auto 11.7 % (2-11); Neutrophils Absolute Auto 3.5 x10*3/uL (2.0-8.3); Neutrophils Percent Auto 56.8 % (45-73); Platelet Count 253 X10*3/uL (160-400); Red Blood Count 4.71 X10*6/uL (4.20-5.50); Red Cell Distribution Width 15.6 % (11.0-16.0); White Blood Count 6.1 X10*3/uL (4.8-10.8)
[2022-11-28 06:25] LABS: Anion Gap 14 (12-20); Blood Urea Nitrogen 11 mg/dL (9-16); Calcium 9.1 mg/dL (8.4-10.2); Carbon Dioxide 26 mmol/L (22-29); Chloride 107 mmol/L (96-108); Creatinine Clr Calc Pharmacy 75.9; Estimated Glomerular Filt Rate > 60; Glucose Random 91 mg/dL (60-115); Potassium 5.4 mmol/L (3.3-5.1); Sodium 142 mmol/L (135-145)
[2022-11-28] MEDS: Cholecalciferol (Vitamin D3) 25 MCG TABLET PO (08:00)
[2022-11-28] MEDS: Multivitamin TABLET 1 TAB PO (08:00)
[2022-11-28] MEDS: 0.9 % Sodium Chloride Flush 3 ML SYRINGE IVFLUSH (08:01)
[2022-11-28] MEDS: Perphenazine 4 MG TABLET PO ×2 (10:58→20:44)
[2022-11-28] MEDS: Pyridoxine HCl (Vitamin B6) 50 MG TABLET 200 MG PO (10:58)
[2022-11-28] MEDS: Magnesium Oxide 400 MG TABLET PO (10:58)
[2022-11-28] MEDS: Venlafaxine HCL 25 MG TABLET PO (10:58)
--- NOTE | 2022-11-28 12:25 | P.PNIM_ITS ---
Subjective Subjective Date of Service: 11/28/22 Interval History: dizzy, worse on movement, relieved by rest Physical Exam 2 Vital Signs: Vital Signs: Last Vital Signs Temp 97.3 F 11/28/22 08:00 Pulse 71 11/28/22 08:00 Resp 18 11/28/22 08:00 BP 135/84 11/28/22 08:00 Pulse Ox 98 11/28/22 08:00 O2 Del Method Room Air 11/28/22 08:00 BMI result Body Mass Index 33.0 General: AO X 3, no acute distress Resp: CTA bilateral, no accessory muscles used CVS: S1,S2,RRR GI: soft, non tender, non distended Neuro: motor grossly intact, alert Psych: appropriate affect, appropriate insight Objective Data Active Medications Acetaminophen (Acetaminophen 325 Mg Tablet) 650 mg PO Q6H PRN PRN Reason: Pain, Mild (Pain Scale 1-3) Acetaminophen (Acetaminophen Supp 650 Mg Supp.Rect) 650 mg IN Q6H PRN PRN Reason: Pain, Mild (Pain Scale 1-3) Albuterol Sulfate (Albuterol Sulfate 90 Mcg 8 Gm Inhaler) 2 puff INHALE Q6H PRN PRN Reason: Shortness of Breath/Wheezing Doxepin HCl (Doxepin Hcl 25 Mg Capsule) 75 mg PO BEDTIME [facility] Enoxaparin Sodium (Enoxaparin Sodium 40 Mg/0.4 Ml Syringe) 40 mg SUBCUT Q24H [facility] Last Admin: 11/27/22 22:15 Dose: 40 mg Documented By: NAVA Fluticasone Propionate (Fluticasone Propionate 250 Mcg Blst.W.Dev) 2 puff INHALE RBID [facility] Last Admin: 11/28/22 08:08 Dose: Not Given Documented By: EARL Non-Admin Reason: Med Not Available Levothyroxine Sodium (Levothyroxine Sodium 100 Mcg Tablet) 100 mcg PO DAILY@0600 [facility] Last Admin: 11/28/22 05:54 Dose: 100 mcg Documented By: NAVA Magnesium Oxide (Magnesium Oxide 400 Mg Tablet) 400 mg PO DAILY@1200 [facility] Last Admin: 11/28/22 10:58 Dose: 400 mg Documented By: SHARON Meclizine HCl (Meclizine Hcl 25 Mg Tablet) 25 mg PO Q6H PRN PRN Reason: Vertigo Last Admin: 11/28/22 10:07 Dose: 25 mg Documented By: SHARON Melatonin (Melatonin 3 Mg Tablet) 6 mg PO BEDTIME PRN PRN Reason: Insomnia Last Admin: 11/27/22 22:27 Dose: 6 mg Documented By: CARLYRISMagnolia Multivitamins/Vitamin C (Multivitamin Tablet) 1 tab PO DAILY [facility] Last Admin: 11/28/22 08:00 Dose: 1 tab Documented By: SHARON Non-Formulary Medication (Estazolam) 3 mg PO BEDTIME [facility] Omeprazole (Omeprazole 40 Mg Capsule.Dr) 40 mg PO DAILY@0630 [facility] Last Admin: 11/28/22 05:54 Dose: 40 mg Documented By: NAVA Ondansetron HCl (Ondansetron Hcl 4 Mg/2 Ml Vial) 4 mg IVPUSH Q8H PRN PRN Reason: Nausea and Vomiting Perphenazine (Perphenazine 4 Mg Tablet) 4 mg PO BID@1200,2100 [facility] Last Admin: 11/28/22 10:58 Dose: 4 mg Documented By: SHARON Pyridoxine HCl (Pyridoxine Hcl (Vitamin B6) 50 Mg Tablet) 200 mg PO DAILY@1200 [facility] Last Admin: 11/28/22 10:58 Dose: 200 mg Documented By: SHARON Sodium Chloride (0.9 % Sodium Chloride Flush 3 Ml Syringe) 3 ml IVFLUSH QSHIFT [facility] Last Admin: 11/28/22 08:01 Dose: 3 ml Documented By: SHARON Venlafaxine HCl (Venlafaxine Hcl 25 Mg Tablet) 25 mg PO DAILY@1200 [facility] Last Admin: 11/28/22 10:58 Dose: 25 mg Documented By: SHARON Vitamin D (Cholecalciferol (Vitamin D3) 25 Mcg Tablet) 25 mcg PO DAILY [facility] Last Admin: 11/28/22 08:00 Dose: 25 mcg Documented By: SHARON Labs 11/28/22 05:55 11/28/22 05:55 Labs: Laboratory Results - last 24 hr 11/27/22 11/28/22 13:58 05:55 MCV 83.9 84.9 MCH 26.5 L 26.3 L MCHC 31.6 31.0 RDW 15.7 15.6 Plt Count 265 253 MPV 9.7 10.1 Immature Gran % (Auto) 0.3 0.3 Neut % (Auto) 63.2 56.8 Lymph % (Auto) 22.3 27.7 [place] % (Auto) 10.8 11.7 H Eos % (Auto) 2.5 2.8 Baso % (Auto) 0.9 0.7 Lymph # (Auto) 1.5 1.7 [place] # (Auto) 0.7 0.7 Eos # (Auto) 0.2 0.2 Baso # (Auto) 0.1 0.0 Abs Immat Gran (auto) 0.02 0.02 Absolute Neuts (auto) 4.3 3.5 Absolute Nucleated RBC 0.000 0.000 Nucleated RBC % (auto) 0.0 0.0 Anion Gap 16 14 Estim Creat Clear Calc 78.5 75.9 Estimated GFR > 60 > 60 Random Glucose 75 91 Calcium 9.9 D 9.1 D Assessment and Plan (1) Vertigo: Status: Acute Plan 62F PMH gerd, mild intermittent asthma, migraines, hypothyroid, hx of gastric bypass, presented with vertigo vertigo c/w BPPV PT eval hypothyroid synthroid mild intermittent asthma stable dvt prophylaxi s - lovenox full code reason for continued hospitalization:pt Time Spent With Patient Time: Total time managing care of this patient today ____ minutes. Quality Stroke Does the patient have a stroke diagnosis?: No VTE Prior VTE?: No VTE Risk Level:: Medical - moderate - high VTE Device Contraindication: Treatment Not Indicated VTE Drug Contraindication: N/A - Med Ordered
[2022-11-28] MEDS: ondansetron HCL 4 MG/2 ML VIAL IVPUSH (12:38)
--- NOTE | 2022-11-28 16:15 | MHC.CM.PN ---
CM MET WITH PT WHO DECLINED [employer] SERVICES SHE REPORTS SHE LIVES ALONE AND IS INDEPENDENT WITH CARE SHE HAS NO HOME SERVICES PT REPORTS SHE HAS A CANE AND A WALKER BUT SHE CANNOT USE EITHER DUE TO HAND INJURIES PT SAYS SHE HAS A HCP, COPY REQUESTED PCP: [facility] O[facility] NOTICE DELIVERED DCP: HOME NO SERVICES VIA SELF ARRANGED TRANSPORT
[2022-11-28] MEDS: Enoxaparin Sodium 40 MG/0.4 ML SYRINGE SUBCUT (20:44)
[2022-11-28] MEDS: Doxepin HCl 25 MG CAPSULE 75 MG PO (20:44)
--- NOTE | 2022-11-28 23:22 | PC.NURSE ---
2100 pt wanted IV out. notified and said ok to leave IV out.
[2022-11-29] MEDS: Meclizine HCl 25 MG TABLET PO (04:19)
[2022-11-29] MEDS: Omeprazole 40 MG CAPSULE.DR PO (05:53)
[2022-11-29] MEDS: Levothyroxine Sodium 100 MCG TABLET PO (05:53)
[2022-11-29 08:00] VITALS: BP 122/66; PULSE 69; RESP 16; TEMP 36; O2SAT 94
[2022-11-29] MEDS: Cholecalciferol (Vitamin D3) 25 MCG TABLET PO (08:27)
[2022-11-29] MEDS: Multivitamin TABLET 1 TAB PO (08:27)
--- NOTE | 2022-11-29 10:30 | P.DS_ITS ---
DS: Providers Provider Date of Service: 11/29/22 Date of admission: 11/27/22 20:59 Primary care physician: Gregg Gandhi MD DS: Diagnosis Discharge Diagnosis (1) Vertigo: Status: Acute DS: Summary Hospital Course Hospital Course: from initial hpi: 62-year-old female with a PMH significant for GERD, mild intermittent asthma, benign renal tumor, migraines, hypothyroidism, diverticulosis, and hx of gastric bypass who presents to the ED with worseing dizziness and weakness. Patient states she has been experiencing episodes of intermittent dizziness for the past 2 weeks. Patient cannot identify any aggravating or relieving factors, reports episodes can occur while stand, sitting, or laying in bed. Patient cannot differentiate whether it feels like the room is spinning or she is spinning. Reports often losing her balance when episodes occur, and falling to the floor if she is either standing or sitting in a chair. Patient presented 1 week prior to the emergency department on 11/19/2022 for evaluation of fall with head strike secondary to dizziness. Imaging chest x-ray, hip x-ray, and cervical spine CT negative for acute fractures or subluxation. CT of head negative for acute intracranial process. Patient presents again to the emergency room today due to worsening dizziness, and falling in the hallway at her apartment. Patient states often feels her heart racing when episodes occur, and often has associated nausea with intermittent vomiting. Of note, patient has had a prescription for meclizine for similar episodes of vertigo in the past, though she reports current symptoms are ?different? and ?worse? than prior. Patient also reports a history of pseudotumor cerebri, though patient's 3 head CTs and 1 brain MRI in past 2 years do not mention similar findings. In the ED patient was afebrile with slightly soft BP of 118/54. Labs were sandy ssly unremarkable. No leukocytosis. Stable H&H. Electrolytes WNL. Renal function baseline. EKG demonstrated sinus bradycardia with nonspecific T-wave inversions in leads V1 and V3 but no evidence of ST elevations or depressions. Pt was treated with meclizine, IVF, ondansetron, an Ativan. Pt will be admitted to the hospital under observation for treatment and further evaluation of likely benign paroxysmal positional vertigo. hospital course: Patient was observed for vertigo, likely due to benign positional paroxysmal vertigo. She was seen by PT and had some improvement with therapy. She will be discharged home on follow up outpatient. For hypothyroidism is continue Synthroid. For mild intermittent asthma is stable. Time Spent with Patient Time attestation: Total time managing care of this patient today ____ minutes. Discharge coordination time: Greater than 30 minutes Quality: Safe Use of Opioids Does Pt have an Active Cancer Diagnosis on the Problem List?: No Quality: Stroke Does the patient have a stroke diagnosis?: No Physical Exam Vital Signs: Vital Signs: Last Vital Signs Temp 96.8 F 11/29/22 08:00 Pulse 69 11/29/22 08:00 Resp 16 11/29/22 08:00 BP 122/66 11/29/22 08:00 Pulse Ox 94 11/29/22 08:00 O2 Del Method Room Air 11/29/22 08:00 BMI result Body Mass Index 33.0 General: AO X 3, no acute distress Resp: CTA bilateral, no accessory muscles used CVS: S1,S2,RRR GI: soft, non tender, non distended Neuro: motor grossly intact, alert Psych: appropriate affect, appropriate insight Discharge Plan Discharge Anticipated Discharge Date/Time: 11/29/22 10:27 Patient Disposition: Home, Self-Care Discharge Diagnosis: vertigo Referrals: Name,MD Gregg [Primary Care Provider] - 1 Week Discharge Medications: Continued albuterol sulfate [Ventolin HFA] 90 mcg/actuation HFA aerosol inhaler 2 puff PO Q6H PRN (Reason: for wheezing) 30 Days Qty: 18 6RF meclizine [Dramamine Less Drowsy] 25 mg tablet 25 mg PO TID PRN (Reason: dizziness) Qty: 20 0RF perphenazine 4 mg tablet 4 mg PO BID@1200,2100 pyridoxine (vitamin B6) 100 mg tablet 200 mg PO DAILY@1200 ondansetron 4 mg tablet,disintegrating 4 mg PO Q8H PRN (Reason: nausea and vomiting) Qty: 10 0RF doxepin 75 mg capsule 75 mg PO BEDTIME Adult Multivitamin Gummies 200 mcg tablet,chewable 1 tab PO DAILY estazolam 1 mg tablet 3 mg PO BEDTIME Flovent HFA 220 mcg/actuation HFA aerosol inhaler 2 puff inhalation BID alendronate 70 mg tablet 70 mg PO TU cholecalciferol (vitamin D3) 25 mcg (1,000 unit) tablet 25 mcg PO DAILY omeprazole 40 mg capsule,delayed release(DR/EC) 40 mg PO DAILY@0630 lidocaine 5 % adhesive patch,medicated 1 patch topical DAILY venlafaxine 25 mg tablet 25 mg PO DAILY@1200 magnesium oxide 400 mg (241.3 mg magnesium) tablet 400 mg PO DAILY@1200 levothyroxine 100 mcg tablet 100 mcg PO DAILY@0600 Discharge Orders: Discharge Order (Routine); Ordered 11/29/22 Ordered By: Leonidas Davis Diet: Advance to usual diet Activity on Discharge: As tolerated Stand Alone Forms: Patient Portal Discharge page Care Plan Goals: recovery Health Concerns: vertigo Plan of Treatment: vestibular rehab Assessment: see above
[2022-11-29] MEDS: Venlafaxine HCL 25 MG TABLET PO (11:55)
[2022-11-29] MEDS: Perphenazine 4 MG TABLET PO (11:55)
[2022-11-29] MEDS: Pyridoxine HCl (Vitamin B6) 50 MG TABLET 200 MG PO (11:55)
[2022-11-29] MEDS: Magnesium Oxide 400 MG TABLET PO (11:55)
--- NOTE | 2022-11-29 14:07 | MHC.CM.PN ---
PT DISCHARGED HOME TODAY WITH NO SERVICES VIA PRIVATE TRANSPORT
== END 2022-11-29 14:42 | disposition home or self-care (01) ==
LOC: HO.ED 16:32 → HO.EDOVER 20:59 → HO.S3 21:42
PROVIDERS: Admitting Provider Student in an Organized Health Care Education/Training Program; Emergency Provider Emergency Medicine; PCP Internal Medicine Geriatric Medicine; Visit Provider Internal Medicine
DX: R42 Dizziness and giddiness (principal); R11.2 Nausea with vomiting, unspecified; J45.20 Mild intermittent asthma, uncomplicated; E03.9 Hypothyroidism, unspecified; R00.1 Bradycardia, unspecified; Z79.899 Other long term (current) drug therapy
CPT/HCPCS: 36415; 80048; 85025; 93005; 96361; 96372; 96374; 96375; 96376; 97161; 99221; 99285; J1650; J2060; J2405

== ENCOUNTER → 2022-11-27 20:59 | Outpatient (BNV) | payer MEDICAID, SELFPAY | PROVIDERS: Admitting Provider Student in an Organized Health Care Education/Training Program; Emergency Provider Emergency Medicine; PCP Internal Medicine Geriatric Medicine; Visit Provider Student in an Organized Health Care Education/Training Program | DX: R42 Dizziness and giddiness (principal) | CPT/HCPCS: 99222; 99232; 99239 ==

== ENCOUNTER 2022-12-23 10:15 | Outpatient (AMB) | payer MEDICAID, SELFPAY ==
--- NOTE | 2022-12-23 10:21 | A.OFFVIS_ITS ---
Intake Vital Signs 12/23/22 10:22 Height 5 ft 3 in Weight 174 lb BMI 30.8 BP 110/70 Blood Pressure Location Lt brachial Position Sitting Pulse 83 Pulse Source Pulse Oximeter Pulse Oximetry (%) 98 Oxygen Delivery Method Room Air Intake Visit Reasons: Asthma Intake Note: pt is here for follow up and states she was in the hospital for 5 days with ania contreras. asthma has been acting, tight in chest, little wheeze. 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 Allergies nalbuphine [From [facility]] Allergy (Severe, Verified 12/23/22 10:47) Anaphylaxis Medication List - Last Reconciled 12/23/22 by Delgado Manriquez MD albuterol sulfate 90 mcg/actuation (Ventolin HFA) 2 puffs PO Q6H PRN 30 days alendronate 70 mg PO TU cholecalciferol (vitamin D3) 25 mcg PO DAILY doxepin 75 mg PO BEDTIME estazolam 3 mg PO BEDTIME fluticasone propionate 220 mcg/actuation (Flovent HFA) 2 puffs inhalation BID levothyroxine 100 mcg PO DAILY@0600 lidocaine 5% 1 patch topical DAILY magnesium oxide 400 mg PO DAILY@1200 meclizine (Dramamine Less Drowsy) 25 mg PO TID PRN multivit with min-folic acid 200 mcg (Adult Multivitamin Gummies) 1 tab PO DAILY omeprazole 40 mg PO DAILY@0630 ondansetron 4 mg PO Q8H PRN perphenazine 4 mg PO BID@1200,2100 pyridoxine (vitamin B6) 200 mg PO DAILY@1200 venlafaxine 25 mg PO DAILY@1200 Do you need a note to return to daycare/school/sports/work: No HPI Asthma HPI Details 62 YEARS OLD FEMALE IS A VERY PLEASANT L TRU, COMES FOR FOLLOW-UP FOR HER BRONCHIAL ASTHMA. SHE DOES HAVE OCCASIONAL FLARE UPS DUE TO CHANGE IN THE WEATHER, BUT. MOSTLY IT REMAINS UNDER CONTROLLED LATELY SHE HAS HAD SOMEWHAT INCREASED COUGH WHICH SHE ATTRIBUTES TO THE CHANGE IN WEATHER. SHE CONTINUES TO HAVE PROBLEM OF WAKING UP AT NIGHT FREQUENTLY WITH SOME COUGH AND WHEEZING. AND SHE REMAINS TIRED AND SLEEPY DURING THE DAYTIME. SHE HAS GAINED ABOUT 20 LB OF WEIGHT OVER THE LAST 6 MONTHS, SHE IS A CASE OF MORBID OBESITY WHO HAS HAD GASTRIC SLEEVE SURGERY IN THE PAST AT [facility], NOW THAT SHE IS STARTING TO GAIN WEIGHT SHE HAS TRY TO GET A FOLLOW-UP VISIT AT [facility] BUT, TOLD THAT SHE THEY WOULD NOT REVISE THE SURGERY. . SHE IS TRYING TO LIMIT HER DIET BECAUSE OF FREQUENT AWAKENINGS AND DAYTIME SLEEPINESS SHE WANTS TO HAVE A HOME- BASED SLEEP STUDY. [facility] Medical History (Updated 12/23/22 @ 10:56 by Delgado Manriquez MD) Somnolence, daytime Obesity (BMI 30-39.9) Nausea & vomiting Migraine Syncope Pseudotumor cerebri Kidney calculi Crystal arthropathy Right shoulder injury Kidney tumor COVID-19 vaccine administered Thyroid disease Colon polyp Diverticulosis of colon Bronchial asthma Acid reflux Surgical History (Updated 12/23/22 @ 10:55 by Delgado Manriquez MD) History of esophagogastroduodenoscopy (EGD) History of surgery on wrist History of hysterectomy Previous section Hx laparoscopic cholecystectomy Hx of gastric bypass (03/12/15) Hx of colonoscopy Family History Father Heart disease History of open heart surgery Mother Heart disease Social History Household Members: None Household Members Other:: alone Are you a primary child care center assistant director to a significant other at home: No Do you presently have visiting nurse or other home services: No Alcohol intake: never Patient Tobacco Use Status: Former Tobacco user Quit Date: 2007 Tobacco use type: Cigarette service: No Current occupational status: disabled Review of Systems Const All systems reviewed & are unremarkable except as noted in HPI and below Eyes Reports no additional complaints ENT Reports vertigo (Recent onset, improving with medicine) and Reports nasal congestion (Mild intermittent) Card Reports no additional complaints Resp Reports as per HPI GI Reports heartburn (Controlled with medicine) Reports no additional complaints Musc Reports no additional complaints Skin/Breast Reports system reviewed and no additional complaints, except as documented Neuro Reports vertigo (Recent onset, improving with medicine) Psych Reports depression Physical Exam Vital Signs: Last Vital Signs Pulse 83 12/23/22 10:22 BP 110/70 12/23/22 10:22 Pulse Ox 98 12/23/22 10:22 Oxygen Delivery Method Room Air 12/23/22 10:22 BMI result Body Mass Index 30.8 Const Other: TELE VISIT. PHYSICAL EXAM NOT ACCOMPLISHED. General: healthy appearing, comfortable, no acute distress, alert and awake Orientation/consciousness: patient oriented x3 HEENT Head: Yes normal to inspection General nose exam: No nasal polyps present and No nasal discharge present Face and sinus: Yes sinuses nontender Mouth: oropharynx normal (Mallampati class 2) Throat: Yes posterior oropharynx normal Eyes General: appearance normal, both eyes and all related structures Neck Neck: Yes normal visual inspection, Yes no lymphadenopathy, Yes trachea midline, Yes no JVD and Yes other (Neck size 14-1/2 inch) Thyroid: Thyroid normal Chest Chest palpation & inspection: normal inspection of the chest, normal palpation of entire chest wall and no tenderness Resp Other: Percussion note is resonant, breath sounds slightly distant, no wheezes rhonchi or crepitations are heard Cardio Palpation: normal PMI Rate: regular rate Rhythm: regular rhythm Heart sounds: no gallops and no murmurs GI Palpation (GI): Soft to palpation, nontender, No hepatosplenomegaly present and no masses Auscultation: normal bowel sounds Back/Spine/Pelvis Thoracic/Lumbar Spine: thoracic and lumbar spine normal to inspection Skin General skin exam: no rashes or lesions noted Neuro General: patient oriented x3 and no focal motor deficits Cranial nerves: Yes CN's II-XII intact bilaterally Extrem General: Yes normal to inspection, Yes no clubbing, cyanosis or edema and Yes no calf tenderness Psych Appearance: grossly normal and well kempt Speech and movement: Normal speech and movement present Assessment & Plan Assessment & Plan (1) Bronchial asthma: Comment: CHRONIC MILD INTERMITTENT BRONCHIAL ASTHMA, CONTROLLED AND STABLE. WITH INTERMITTENT FLARE UPS DUE TO SEASONAL CHANGE. TX : FLOVENT -220 2 PUFFS BID AND PROAIR 2 PUFFS Q 6 HOURS ONLY P.R.N. Code(s): J45.909 - Unspecified asthma, uncomplicated (2) Obesity (BMI 30-39.9): Comment: PATIENT HAS HISTORY OF GROSS OBESITY, HAS HAD GASTRIC SLEEVE SURGERY IN THE PAST, SHE HAS GAINED MORE WEIGHT LATELY, SHE HAS LOST FOLLOW-UP [facility]. ON TO CONTROL HER DIET AND LOSE WEIGHT BY HERSELF. CANNOT DO MUCH EXERCISE BECAUSE OF HER VERTIGO AND DIFFICULTY IN WALKING. Code(s): E66.9 - Obesity, unspecified (3) Status post gastric bypass for obesity: Comment: She had lost to almost 100 lb after gastric bypass surgery. Now during the past 1 year she has gained some weight, and has started having heavy snoring at night. Counseled that she should start walking daily and lose about 10 - 20 lb of weight. Also counseled that she should sleep in lateral position. Code(s): Z98.84 - Bariatric surgery status (4) Somnolence, daytime: Comment: Patient has poor sleep at night and frequent awakenings with lot of snoring. She remains tired and sleepy during the daytime. Lately she has gained about 20 lb of weight, with increase in her symptoms of daytime somnolence . PLAN: WILL ORDER A HOME-BASED SLEEP STUDY TO CHECK FOR A OBSTRUCTIVE SLEEP APNEA. Code(s): R40.0 - Somnolence Orders: Orders RT home sleep study Today E66.9 - Obesity, unspecified, J45.909 - Unspecified asthma, uncomplicated, R40.0 - Somnolence Coding Level of Care Code Est Pt Level 4 (82902) Diagnoses Bronchial asthma J45.909 Obesity (BMI 30-39.9) E66.9 Status post gastric bypass for obesity Z98.84 Somnolence, daytime R40.0
[2022-12-23 10:22] VITALS: BP 110/70; PULSE 83; O2SAT 98; BMI 30.8
== END 2022-12-23 10:48 | disposition home or self-care (01) ==
PROVIDERS: PCP Internal Medicine Geriatric Medicine; Visit Provider Internal Medicine
DX: J45.909 Unspecified asthma, uncomplicated (principal); E66.9 Obesity, unspecified; Z98.84 Bariatric surgery status; R40.0 Somnolence
CPT/HCPCS: 99214

== ENCOUNTER → 2022-12-23 10:15 | Outpatient (BNVA) | payer MEDICAID, SELFPAY | PROVIDERS: PCP Internal Medicine Geriatric Medicine; Visit Provider Internal Medicine | DX: J45.909 Unspecified asthma, uncomplicated (principal); R40.0 Somnolence; E66.9 Obesity, unspecified; Z98.84 Bariatric surgery status; Z68.30 Body mass index [BMI] 30.0-30.9, adult | CPT/HCPCS: 99212 ==

== ENCOUNTER 2023-03-23 19:33 | Emergency (ER) | payer MEDICAID, SELFPAY ==
[2023-03-23 20:13] VITALS: BP 115/70; PULSE 86; RESP 18; TEMP 36.3; O2SAT 96; BMI 31.8
--- NOTE | 2023-03-23 20:17 | ED_ITS ---
HPI - Abdominal Pain General Chief Complaint: Nausea/Vomiting/Diarrhea Stated Complaint: vomiting Related Data Home Medications Medication Instructions Recorded Confirmed doxepin 75 mg capsule 75 mg PO BEDTIME 11/22/19 03/23/23 multivitamin with minerals-folic 1 tab PO DAILY 11/22/19 03/23/23 acid 200 mcg chewable tablet (Adult Multivitamin Gummies) estazolam 1 mg tablet 3 mg PO BEDTIME 06/06/20 03/23/23 fluticasone propionate 220 2 puff inhalation BID 12/30/20 03/23/23 mcg/actuation HFA aerosol inhaler (Flovent HFA) alendronate 70 mg tablet 70 mg PO TU 06/03/22 03/23/23 cholecalciferol (vitamin D3) 25 25 mcg PO DAILY 06/03/22 03/23/23 mcg (1,000 unit) tablet perphenazine 4 mg tablet 4 mg PO BID@1200,2100 06/04/22 03/23/23 levothyroxine 100 mcg tablet 100 mcg PO DAILY@0600 10/01/22 03/23/23 lidocaine 5 % topical patch 1 patch topical DAILY 10/01/22 03/23/23 magnesium oxide 400 mg (241.3 mg 400 mg PO DAILY@1200 10/01/22 03/23/23 magnesium) tablet omeprazole 40 mg capsule,delayed 40 mg PO DAILY@0630 10/01/22 03/23/23 release venlafaxine 25 mg tablet 25 mg PO DAILY@1200 10/01/22 03/23/23 pyridoxine (vitamin B6) 100 mg 200 mg PO DAILY@1200 11/27/22 03/23/23 tablet Previous Rx's Medication Instructions Recorded meclizine 25 mg tablet (Dramamine 25 mg PO TID PRN dizziness #20 tabs 12/19/20 Less Drowsy) ondansetron 4 mg disintegrating 4 mg PO Q8H PRN nausea and 09/10/22 tablet vomiting #10 tabs albuterol sulfate 90 mcg/actuation 2 puff PO Q6H PRN for wheezing 30 10/29/22 aerosol inhaler (Ventolin HFA) days #18 grams prednisone 20 mg tablet 40 mg (2 x 20 mg) PO DAILY 5 days 01/09/23 #10 tabs Allergies Allergy/AdvReac Type Severity Reaction Status Date / Time nalbuphine [From [facility]] Allergy Severe Anaphylaxis Verified 03/23/23 10:04 [facility] Past Medical History Medical History (Updated 03/27/23 @ 17:11 by Morena Duran NP) Somnolence, daytime Obesity (BMI 30-39.9) Nausea & vomiting Migraine Syncope Pseudotumor cerebri Kidney calculi Crystal arthropathy Right shoulder injury Kidney tumor COVID-19 vaccine administered Thyroid disease Colon polyp Diverticulosis of colon Bronchial asthma Acid reflux Surgical History History of esophagogastroduodenoscopy (EGD) History of surgery on wrist History of hysterectomy Previous section Hx laparoscopic cholecystectomy Hx of gastric bypass (03/12/15) Hx of colonoscopy Family History Family History Father Heart disease History of open heart surgery Mother Heart disease Social History Social History Household Members: None Household Members Other:: alone Are you a primary care management associate to a significant other at home: No Do you presently have visiting nurse or other home services: No Alcohol intake: never Patient Tobacco Use Status: Former Tobacco user Quit Date: 2007 Tobacco use type: Cigarette Advance Directives: No Advance Directives Information Provided: No service: No Current occupational status: disabled Physical Exam ED Vital Signs: Vital Signs - 24 hr 03/23/23 20:13 Temperature 97.3 F Pulse Rate 86 Respiratory Rate 18 Blood Pressure 115/70 Pulse Oximetry 96 Oxygen Delivery Method Room Air BMI result Body Mass Index 31.8 Course Course Course Narrative: THIS is a rapid medical exam. Defer additional HPI, ROS, PE to primary provider 61 year old female with history significant for GERD, asthma, benign renal tumor, migraine, hypothyroid, diverticulosis, colonic polyps, pseudotumor cerebri, and hx of gastric bypass here with nausea/vomiting. Will need labs, viral testing, UA VSS Medical Decision Making Lab Data 03/23/23 20:41 03/23/23 20:41 Labs: Lab Results 03/23/23 Range/Units 20:41 WBC 7.6 (4.8-10.8) X10*3/uL RBC 4.63 (4.20-5.50) X10*6/uL Hgb 12.5 (12.0-16.0) g/dl Hct 39.2 (37.0-47.0) % MCV 84.7 (80.0-98.0) fL MCH 27.0 (27.0-33.0) pg MCHC 31.9 (31.0-35.0) g/dl RDW 15.7 (11.0-16.0) % Plt Count 272 (160-400) X10*3/uL MPV 9.8 (9.4-12.3) fL Immature Gran % (Auto) 0.3 (0.0-0.4) % Neut % (Auto) 60.9 (45-73) % Lymph % (Auto) 24.4 (20-40) % Foard % (Auto) 11.9 H (2-11) % Eos % (Auto) 2.0 (0-4) % Baso % (Auto) 0.5 (0-2) % Lymph # (Auto) 1.9 (1.2-4.9) X10*3/uL Foard # (Auto) 0.9 (0.1-1.2) X10*3/uL Eos # (Auto) 0.2 (0.0-0.4) X10*3/uL Baso # (Auto) 0.0 (0.0-0.2) X10*3/uL Abs Immat Gran (auto) 0.02 (0.00-0.03) X10*3/uL Absolute Neuts (auto) 4.6 (2.0-8.3) x10*3/uL Absolute Nucleated RBC 0.000 (0.0-0.012) X10*3/uL Nucleated RBC % (auto) 0.0 (0.0-0.2) /100WBC Sodium 140 (135-145) mmol/L Potassium 4.4 (3.3-5.1) mmol/L Chloride 106 (96-108) mmol/L Carbon Dioxide 27 (22-29) mmol/L Anion Gap 11 L (12-20) BUN 12 (9-16) mg/dL Creatinine 0.89 (0.5-1.4) mg/dL Estim Creat Clear Calc 64.5 Estimated GFR > 60 Random Glucose 122 H (60-115) mg/dL Calcium 9.3 (8.4-10.2) mg/dL Magnesium 2.4 (1.6-2.6) mg/dL Total Bilirubin 0.2 (0.0-1.0) mg/dL Direct Bilirubin < 0.2 (0.0-0.5) mg/dL AST 22 (5-31) U/L ALT 26 (0-31) U/L Alkaline Phosphatase 80 (39-117) U/L Total Protein 7.0 (6.5-8.0) g/dL Albumin 3.8 (3.5-5.0) g/dL COVID-19 (RICK) Negative (Negative) COVID-19 Clin Com See Note Influenza Type A (SMITA) Negative (Negative) Influenza Type B (SMITA) Negative (Negative) Influenza A & B Note See Note Discharge Plan Discharge Clinical Impression: Vomiting Patient Disposition: Left W/O Completing Treatment Prescriptions: No Action albuterol sulfate [Ventolin HFA] 90 mcg/actuation HFA aerosol inhaler 2 puff PO Q6H PRN (Reason: for wheezing) 30 Days Qty: 18 6RF prednisone 20 mg tablet 40 mg PO DAILY 5 Days Qty: 10 0RF meclizine [Dramamine Less Drowsy] 25 mg tablet 25 mg PO TID PRN (Reason: dizziness) Qty: 20 0RF perphenazine 4 mg tablet 4 mg PO BID@1200,2100 pyridoxine (vitamin B6) 100 mg tablet 200 mg PO DAILY@1200 ondansetron 4 mg tablet,disintegrating 4 mg PO Q8H PRN (Reason: nausea and vomiting) Qty: 10 0RF doxepin 75 mg capsule 75 mg PO BEDTIME Adult Multivitamin Gummies 200 mcg tablet,chewable 1 tab PO DAILY estazolam 1 mg tablet 3 mg PO BEDTIME Flovent HFA 220 mcg/actuation HFA aerosol inhaler 2 puff inhalation BID alendronate 70 mg tablet 70 mg PO TU cholecalciferol (vitamin D3) 25 mcg (1,000 unit) tablet 25 mcg PO DAILY omeprazole 40 mg capsule,delayed release(DR/EC) 40 mg PO DAILY@0630 lidocaine 5 % adhesive patch,medicated 1 patch topical DAILY venlafaxine 25 mg tablet 25 mg PO DAILY@1200 magnesium oxide 400 mg (241.3 mg magnesium) tablet 400 mg PO DAILY@1200 levothyroxine 100 mcg tablet 100 mcg PO DAILY@0600 Interventions: KRISTOPHER Worksheet Last Done: 03/24/23 01:25 Discharge Date/Time: 03/24/23 01:25
[2023-03-23 20:47] LABS: MANUAL DIFF FLAG NO
[2023-03-23 20:48] LABS: Basophils Percent Auto 0.5 % (0-2); Eosinophils Absolute Auto 0.2 X10*3/uL (0.0-0.4); Hematocrit 39.2 % (37.0-47.0); Hemoglobin 12.5 g/dl (12.0-16.0); Imm Gran Abs Auto 0.02 X10*3/uL (0.00-0.03); Imm Gran Pct Auto 0.3 % (0.0-0.4); Lymphocytes Absolute Auto 1.9 X10*3/uL (1.2-4.9); Lymphocytes Percent Auto 24.4 % (20-40); Mean Corpuscular HGB Conc 31.9 g/dl (31.0-35.0); Mean Corpuscular Volume 84.7 fL (80.0-98.0); Mean Platelet Volume 9.8 fL (9.4-12.3); Monocytes Absolute Auto 0.9 X10*3/uL (0.1-1.2); Monocytes Percent Auto 11.9 % (2-11); Neutrophils Absolute Auto 4.6 x10*3/uL (2.0-8.3); Neutrophils Percent Auto 60.9 % (45-73); Platelet Count 272 X10*3/uL (160-400); Red Blood Count 4.63 X10*6/uL (4.20-5.50); Red Cell Distribution Width 15.7 % (11.0-16.0); White Blood Count 7.6 X10*3/uL (4.8-10.8)
[2023-03-23 21:02] LABS: COVID-19 Test Negative (Negative); IDNOW Serial# 08D9AD1C; IDNOW Serial# 152EDE1D; Influenza A Negative (Negative); Influenza B2 Negative (Negative)
[2023-03-23 21:10] LABS: Alanine Aminotransferase 26 U/L (0-31); Albumin Level 3.8 g/dL (3.5-5.0); Alkaline Phosphatase 80 U/L (39-117); Anion Gap 11 (12-20); Aspartate Amino Transferase 22 U/L (5-31); Bilirubin Direct < 0.2 mg/dL (0.0-0.5); Bilirubin Total 0.2 mg/dL (0.0-1.0); Blood Urea Nitrogen 12 mg/dL (9-16); Calcium 9.3 mg/dL (8.4-10.2); Carbon Dioxide 27 mmol/L (22-29); Chloride 106 mmol/L (96-108); Creatinine Clr Calc Pharmacy 64.5; Estimated Glomerular Filt Rate > 60; Glucose Random 122 mg/dL (60-115); Magnesium 2.4 mg/dL (1.6-2.6); Potassium 4.4 mmol/L (3.3-5.1); Sodium 140 mmol/L (135-145)
== END 2023-03-24 01:25 | disposition left against medical advice (07) ==
PROVIDERS: Nurse Practitioner Family; Emergency Provider Emergency Medicine; PCP Internal Medicine Geriatric Medicine
DX: R11.2 Nausea with vomiting, unspecified (principal); Z11.52 Encounter for screening for COVID-19; E03.9 Hypothyroidism, unspecified
CPT/HCPCS: 80048; 80076; 83735; 85025; 87502; 87635; 99281; 99283

== ENCOUNTER → 2023-03-31 10:36 | Outpatient (REF) | payer MEDICAID, SELFPAY | LOC: HO.SL 10:36 | PROVIDERS: PCP Internal Medicine Geriatric Medicine; Visit Provider Internal Medicine | DX: R40.0 Somnolence (principal); E66.9 Obesity, unspecified; J45.909 Unspecified asthma, uncomplicated; R06.83 Snoring | CPT/HCPCS: 95806 ==

== ENCOUNTER → 2023-03-31 10:53 | Outpatient (BNV) | payer MEDICAID, SELFPAY | PROVIDERS: PCP Internal Medicine Geriatric Medicine; Visit Provider Internal Medicine | DX: R06.83 Snoring (principal); R40.0 Somnolence | CPT/HCPCS: 95806 ==

== ENCOUNTER 2023-03-31 11:42 | Outpatient (REF) | payer MEDICAID, SELFPAY | END 2023-03-31 11:43 | disposition home or self-care (01) | LOC: HO.HHCLNP 11:42 | PROVIDERS: Visit Provider Emergency Medicine | DX: J02.9 Acute pharyngitis, unspecified (principal) | CPT/HCPCS: 87070 ==

== ENCOUNTER 2023-04-05 09:21 | Outpatient (REF) | payer MEDICAID, SELFPAY ==
[2023-04-05 10:33] LABS: Free T4 (Free Thyroxine) 1.06 ng/dL (0.71-1.85); Thyroid Stimulating Hormone 0.87 uIU/mL (0.32-4.0)
[2023-04-08 16:24] LABS: Metanephrine, Free 26 pg/mL (<=57); Normetanephrines, Free 121 pg/mL (<=148); Total Metanephrine, Free 147 pg/mL (<=205)
== END 2023-04-05 09:22 | disposition home or self-care (01) ==
LOC: HO.LAB 09:21
PROVIDERS: Visit Provider Internal Medicine Endocrinology, Diabetes & Metabolism
DX: E03.9 Hypothyroidism, unspecified (principal); Z86.018 Personal history of other benign neoplasm
CPT/HCPCS: 36415; 83835; 84439; 84443

== ENCOUNTER 2023-04-07 10:05 | Outpatient (AMB) | payer MEDICAID, SELFPAY ==
[2023-04-07 10:30] VITALS: BP 120/60; PULSE 93; O2SAT 99; BMI 31.5
--- NOTE | 2023-04-07 10:30 | MHC.OFFVIS ---
Intake Vital Signs 04/07/23 10:30 Height 5 ft 3 in Weight 178 lb BMI 31.5 BP 120/60 Blood Pressure Location Lt brachial Position Sitting Pulse 93 Pulse Source Pulse Oximeter Pulse Oximetry (%) 99 Oxygen Delivery Method Room Air Intake Visit Reasons: Asthma Intake Note: pt is here for follow up and states she has been getting asthma every night, had sleep study, some wheezing. Support Worker Required: No Allergies nalbuphine [From Nubain] Allergy (Severe, Verified 04/07/23 10:55) Anaphylaxis Medication List - Last Reconciled 04/07/23 by Delgado Manriquez MD albuterol sulfate 90 mcg/actuation (Ventolin HFA) 2 puffs PO Q6H PRN 30 days alendronate 70 mg PO TU cholecalciferol (vitamin D3) 25 mcg PO DAILY doxepin 75 mg PO BEDTIME estazolam 3 mg PO BEDTIME fluticasone propionate 220 mcg/actuation (Flovent HFA) 2 puffs inhalation BID levothyroxine 100 mcg PO DAILY@0600 lidocaine 5% 1 patch topical DAILY magnesium oxide 400 mg PO DAILY@1200 meclizine (Dramamine Less Drowsy) 25 mg PO TID PRN multivit with min-folic acid 200 mcg (Adult Multivitamin Gummies) 1 tab PO DAILY omeprazole 40 mg PO DAILY@0630 ondansetron 4 mg PO Q8H PRN perphenazine 4 mg PO BID@1200,2100 pyridoxine (vitamin B6) 200 mg PO DAILY@1200 venlafaxine 25 mg PO DAILY@1200 Do you need a note to return to daycare/school/sports/work: No HPI Asthma HPI Details THIS 62 YEARS OLD VERY PLEASANT FEMALE WHO HAS CHRONIC BRONCHIAL ASTHMA, COMES FOR FOLLOW-UP AFTER 2 MONTHS. LATELY SHE IS HAVING INCREASED WHEEZING AND SHORTNESS OF BREATH ESPECIALLY AT NIGHT AND NOT ABLE TO SLEEP. SHE HAS TO USE ALBUTEROL QUITE OFTEN DURING THE NIGHT. SHE DOES USE FLOVENT-TO 22 PUFFS B.I.D. BUT IS NOT CONTROLLING HER ASTHMA. THERE IS NO PARTICULAR TRIGGER, BUT ANYTHING SHE INHALES FEELS LIKE IRRITATING HER BRONCHIAL TUBES, SHE HAS PAST HISTORY GROSS OBESITY, S/P GASTROPLASTY AND HAD LOST SIGNIFICANT WEIGHT. NOW HER WEIGHT IS STAYING AROUND BMI 30-32. SHE COMPLAINS OF POOR SLEEP AT NIGHT DUE TO FREQUENT AWAKENING, AND ALSO SLEEPINESS DURING THE DAYTIME. SHE DID HAVE HOME-BASED SLEEP STUDY WHICH. IS NEGATIVE FOR SLEEP APNEA HOWEVER SHE DESCRIBES THAT SHE WAS NOT ABLE TO HAVE ANY GOOD SLEEP DURING THAT NIGHT. [facility] Medical History Somnolence, daytime Obesity (BMI 30-39.9) Nausea & vomiting Migraine Syncope Pseudotumor cerebri Kidney calculi Crystal arthropathy Right shoulder injury Kidney tumor COVID-19 vaccine administered Thyroid disease Colon polyp Diverticulosis of colon Bronchial asthma Acid reflux Surgical History History of esophagogastroduodenoscopy (EGD) History of surgery on wrist History of hysterectomy Previous section Hx laparoscopic cholecystectomy Hx of gastric bypass (03/12/15) Hx of colonoscopy Family History Father Heart disease History of open heart surgery Mother Heart disease Social History Household Members: None Household Members Other:: alone Are you a primary healthcare receptionist to a significant other at home: No Do you presently have visiting nurse or other home services: No Alcohol intake: never Patient Tobacco Use Status: Former Tobacco user Quit Date: 2007 Tobacco use type: Cigarette service: No Current occupational status: disabled Review of Systems Const All systems reviewed & are unremarkable except as noted in HPI and below Eyes Reports no additional complaints ENT Reports vertigo (Recent onset, improving with medicine) and Reports nasal congestion (Mild intermittent) Card Reports no additional complaints Resp Reports as per HPI GI Reports heartburn (Controlled with medicine) Reports no additional complaints Musc Reports no additional complaints Skin/Breast Reports system reviewed and no additional complaints, except as documented Neuro Reports vertigo (Recent onset, improving with medicine) Psych Reports depression Physical Exam Vital Signs: Last Vital Signs Pulse 93 04/07/23 10:30 BP 120/60 04/07/23 10:30 Pulse Ox 99 04/07/23 10:30 Oxygen Delivery Method Room Air 04/07/23 10:30 BMI result Body Mass Index 31.5 Const Other: TELE VISIT. PHYSICAL EXAM NOT ACCOMPLISHED. General: healthy appearing, comfortable, no acute distress, alert and awake Orientation/consciousness: patient oriented x3 HEENT Head: Yes normal to inspection General nose exam: No nasal polyps present and No nasal discharge present Face and sinus: Yes sinuses nontender Mouth: oropharynx normal (Mallampati class 2) Throat: Yes posterior oropharynx normal Eyes General: appearance normal, both eyes and all related structures Neck Neck: Yes normal visual inspection, Yes no lymphadenopathy, Yes trachea midline, Yes no JVD and Yes other (Neck size 14-1/2 inch) Thyroid: Thyroid normal Chest Chest palpation & inspection: normal inspection of the chest, normal palpation of entire chest wall and no tenderness Resp Other: Percussion note is resonant, breath sounds slightly distant, I CAN HEAR SCATTERED EXPIRATORY WHEEZES IN THE UPPER PARTS OF THE CHEST. Cardio Palpation: normal PMI Rate: regular rate Rhythm: regular rhythm Heart sounds: no gallops and no murmurs GI Palpation (GI): Soft to palpation, nontender, No hepatosplenomegaly present and no masses Auscultation: normal bowel sounds Back/Spine/Pelvis Thoracic/Lumbar Spine: thoracic and lumbar spine normal to inspection Skin General skin exam: no rashes or lesions noted Neuro General: patient oriented x3 and no focal motor deficits Cranial nerves: Yes CN's II-XII intact bilaterally Extrem General: Yes normal to inspection, Yes no clubbing, cyanosis or edema and Yes no calf tenderness Psych Appearance: grossly normal and well kempt Speech and movement: Normal speech and movement present Assessment & Plan Assessment & Plan (1) Obesity (BMI 30-39.9): Comment: PATIENT HAS HISTORY OF GROSS OBESITY, HAS HAD GASTRIC SLEEVE SURGERY IN THE PAST, SHE HAS GAINED MORE WEIGHT LATELY, SHE HAS LOST FOLLOW-UP [facility] FOR INCURABLES. CANNOT DO MUCH BECAUSE OF HER VERTIGO AND DIFFICULTY IN WALKING. Code(s): E66.9 - Obesity, unspecified Plan: Explained that her weight is staying stable. Encouraged to cut down the intake of calories and walk more during the daytime. (2) Somnolence, daytime: Comment: Patient has poor sleep at night and frequent awakenings with lot of snoring. She remains tired and sleepy during the daytime. HOME-BASED SLEEP STUDY IS. NEGATIVE FOR SNORING OR SLEEP APNEA HOWEVER IT MAY BE DUE TO POOR SLEEP AT NIGHT. Code(s): R40.0 - Somnolence Plan: SLEEP HYGIENE IS EXPLAINED. IF PATIENT REMAINS SOMNOLENT DURING THE DAYTIME THEN WE WILL HAVE TO DO A POLYSOMNOGRAM STUDY IN THE SLEEP LAB, WITH THE HELP OF HIS SLEEP AID MEDICINE. (3) Bronchial asthma: Comment: CHRONIC MILDTO MODERATE BRONCHIAL ASTHMA, WITH INTERMITTENT FLARE UPS DUE TO SEASONAL CHANGE. ALSO SYMPTOMS OF WORSE AT NIGHT. Code(s): J45.909 - Unspecified asthma, uncomplicated Plan: ADVISED TO STOP USING FLOVENT. FLUTICASONE-SALMETRAL 500-51 INHALATION B.I.D. IS ORDERED, USE ALBUTEROL HFA 2 PUFFS Q 4-6 HOURS P.R.N. BUT ONLY FOR ACUTE ATTACKS. Medications: New fluticasone propion-salmeterol 500-50 mcg/dose 1 inh inhalation BID 30 days 60 ea 3RF ASTHMA Coding Level of Care Code Est Pt Level 3 (95262) Diagnoses Obesity (BMI 30-39.9) E66.9 Somnolence, daytime R40.0 Bronchial asthma J45.909
== END 2023-04-07 10:56 | disposition home or self-care (01) ==
PROVIDERS: PCP Internal Medicine Geriatric Medicine; Visit Provider Internal Medicine
DX: E66.9 Obesity, unspecified (principal); R40.0 Somnolence; J45.909 Unspecified asthma, uncomplicated
CPT/HCPCS: 99213

== ENCOUNTER → 2023-04-07 10:05 | Outpatient (BNVA) | payer MEDICAID, SELFPAY | PROVIDERS: PCP Internal Medicine Geriatric Medicine; Visit Provider Internal Medicine | DX: J45.909 Unspecified asthma, uncomplicated (principal); R40.0 Somnolence; E66.9 Obesity, unspecified; Z68.31 Body mass index [BMI] 31.0-31.9, adult | CPT/HCPCS: 99212 ==

== ENCOUNTER 2023-04-16 15:18 | Emergency (ER) | payer MEDICAID, SELFPAY ==
--- NOTE | ~2023-04-16 | CT_ITS ---
EXAMINATION: CT ABDOMEN AND PELVIS WITH CONTRAST CLINICAL INFORMATION: Abdominal pain COMPARISON: Previous CT of the abdomen and pelvis August 2022 TECHNIQUE: Multidetector volumetric images were obtained from the superior aspect of the liver through the pubic symphysis following administration 85 mL of Omnipaque 350 intravenous contrast. Sagittal and coronal reformatted images were obtained on the technologist's workstation. Oral contrast: Yes This CT examination was performed using dose optimization techniques as appropriate, variously including the following: *Automated exposure control *Adjustment of mA and/or kV according to patient size (this includes techniques or standardized protocols for targeted exams where dose is matched to indication/reason for exam; i.e. extremities or head) *Use of iterative reconstruction technique DLP: 564 mGy-cm FINDINGS: LUNG BASES: The visualized lung bases are unremarkable. LIVER, GALLBLADDER, AND BILIARY TREE: Mild fatty infiltration of the liver. The gallbladder is been removed. No intrahepatic biliary duct dilatation. The common bile duct is dilated measuring up to 1.3 cm. No common bile duct stone is appreciated by CT. This is increased from previous exam. PANCREAS: Unremarkable. SPLEEN: Unremarkable. ADRENAL GLANDS: Unremarkable. KIDNEYS AND URETERS: The kidneys are normal in size, shape, and attenuation. No hydronephrosis, hydroureter, or calculi seen. No perinephric stranding. BLADDER: Unremarkable. GASTROINTESTINAL TRACT: Postoperative change from gastric sleeve. Diverticulosis of the colon. Wall thickening sigmoid colon questionable mild diverticulitis. Small and large bowel is otherwise normal. ABDOMINAL WALL: No significant hernia is appreciated. LYMPH NODES: Normal. VASCULAR: Unremarkable. PELVIC VISCERA: Hysterectomy OSSEOUS STRUCTURES: Degenerative changes of the spine. CT/CT abdomen pelvis w IV con IMPRESSION: Postoperative change from gastric sleeve. Diverticulosis of the colon and question mild sigmoid diverticulitis. Mild fatty infiltration of the liver. Dilated common bile duct increased from previous exam. This may be normal postcholecystectomy. Correlation with liver function tests recommended. This could be better evaluated with MRCP if clinically indicated. Fleischner guidelines were followed.
[2023-04-16 15:22] VITALS: BP 138/88; PULSE 74; O2SAT 100
[2023-04-16 15:29] VITALS: BP 131/77; PULSE 82; RESP 16; TEMP 36.6; O2SAT 98; BMI 31.7
--- NOTE | 2023-04-16 15:35 | ED.GENADULT ---
HPI - General Adult General Chief complaint: Abdominal Pain Stated complaint: Upper right quadrant pain, [facility] Time Seen by Provider: 04/16/23 17:03 History of Present Illness HPI narrative: The patient is a 62-year-old female with a history of gastric bypass surgery who states that she has had what she thought was an abdominal wall hernia in the right upper abdomen for some time. She says the hernia is usually small. Over the last 2 to his she feels the hernias gotten much bigger and much more significantly painful. She went to the [facility] who is referred to the emergency room. She has had vomiting. No fevers. Related Data Home Medications Medication Instructions Recorded Confirmed doxepin 75 mg capsule 75 mg PO BEDTIME 11/22/19 03/23/23 multivitamin with minerals-folic 1 tab PO DAILY 11/22/19 03/23/23 acid 200 mcg chewable tablet (Adult Multivitamin Gummies) estazolam 1 mg tablet 3 mg PO BEDTIME 06/06/20 03/23/23 fluticasone propionate 220 2 puff inhalation BID 12/30/20 03/23/23 mcg/actuation HFA aerosol inhaler (Flovent HFA) alendronate 70 mg tablet 70 mg PO TU 06/03/22 03/23/23 cholecalciferol (vitamin D3) 25 25 mcg PO DAILY 06/03/22 03/23/23 mcg (1,000 unit) tablet perphenazine 4 mg tablet 4 mg PO BID@1200,2100 06/04/22 03/23/23 levothyroxine 100 mcg tablet 100 mcg PO DAILY@0600 10/01/22 03/23/23 lidocaine 5 % topical patch 1 patch topical DAILY 10/01/22 03/23/23 magnesium oxide 400 mg (241.3 mg 400 mg PO DAILY@1200 10/01/22 03/23/23 magnesium) tablet omeprazole 40 mg capsule,delayed 40 mg PO DAILY@0630 10/01/22 03/23/23 release venlafaxine 25 mg tablet 25 mg PO DAILY@1200 10/01/22 03/23/23 pyridoxine (vitamin B6) 100 mg 200 mg PO DAILY@1200 11/27/22 03/23/23 tablet Previous Rx's Medication Instructions Recorded meclizine 25 mg tablet (Dramamine 25 mg PO TID PRN dizziness #20 tabs 12/19/20 Less Drowsy) ondansetron 4 mg disintegrating 4 mg PO Q8H PRN nausea and 09/10/22 tablet vomiting #10 tabs albuterol sulfate 90 mcg/actuation 2 puff PO Q6H PRN for wheezing 30 10/29/22 aerosol inhaler (Ventolin HFA) days #18 grams fluticasone 500 mcg-salmeterol 50 1 inh inhalation BID ASTHMA 30 04/07/23 mcg/dose blistr powdr for days #60 ea inhalation ondansetron 4 mg disintegrating 4 mg PO Q6H PRN nausea and 04/16/23 tablet vomiting #10 tabs sucralfate 1 gram tablet 1 g PO TID PRN upper abdominal 04/16/23 pain #30 tabs Allergies Allergy/AdvReac Type Severity Reaction Status Date / Time nalbuphine [From Nubain] Allergy Severe Anaphylaxis Verified 04/07/23 10:55 Review of Systems Review of Systems: Yes all other systems are reviewed and are negative [facility] Past Medical History Medical History Somnolence, daytime Obesity (BMI 30-39.9) Nausea & vomiting Migraine Syncope Pseudotumor cerebri Kidney calculi Crystal arthropathy Right shoulder injury Kidney tumor COVID-19 vaccine administered Thyroid disease Colon polyp Diverticulosis of colon Bronchial asthma Acid reflux Surgical History History of esophagogastroduodenoscopy (EGD) History of surgery on wrist History of hysterectomy Previous section Hx laparoscopic cholecystectomy Hx of gastric bypass (03/12/15) Hx of colonoscopy Family History Family History Father Heart disease History of open heart surgery Mother Heart disease Social History Social History Household Members: None Household Members Other:: alone Are you a primary health care liaison to a significant other at home: No Do you presently have visiting nurse or other home services: No Alcohol intake: never Patient Tobacco Use Status: Former Tobacco user Quit Date: 2007 Tobacco use type: Cigarette Smoked in Last 30 Days: No Use of substances other than those prescribed or required for medical reasons: No Advance Directives: No Advance Directives Information Provided: No Patient : No service: No Current occupational status: disabled Physical Exam ED Vital Signs: Vital Signs - 24 hr 04/16/23 15:29 04/16/23 20:00 Temperature 97.8 F 97.8 F Pulse Rate 82 63 Respiratory Rate 16 16 Blood Pressure 131/77 116/64 Pulse Oximetry 98 98 Oxygen Delivery Method Room Air Room Air BMI result Body Mass Index 31.7 Const Other: The patient is awake and alert. She looked uncomfortable and she also seemed to have an anxious affect. HENMT Other: Face is symmetrical. Mucous membranes moist. Eyes Other: Pupils are round equal, conjunctivae clear, extraocular movements intact. Neck Other: Moving her neck easily, the neck is supple Resp Effort & Inspection: normal respiratory effort Auscultation: clear to auscultation bilaterally Cardio Rate: regular rate Rhythm: regular rhythm Heart sounds: S1 normal heart sound present and S2 normal heart sound present GI Other: On palpation of the right upper quadrant there is some palpable tissue which seems quite tender just above and lateral to the patient's cholecystectomy scar. When I 1st examined the patient she seemed exquisitely tender in this region. The rest of her abdomen showed some epigastric tenderness but was generally benign. Back/Spine/Pelvis Other: No CVA percussion tenderness Skin Other: Skin is dry and unremarkable Neuro Other: The patient is awake and alert, mental status normal, cranial nerves grossly intact, gait is normal, grossly neurologically intact Extrem Other: No calf swelling or tenderness, no peripheral edema, no calf asymmetry Course Course Course Narrative: RME- 62-year-old female presents for evaluation of right upper quadrant abdominal pain. She has a palpable hernia in the area that can not be reduced. Pain started last night with vomiting. She was sent from urgent care to rule out small bowel obstruction versus incarcerated hernia. Plan for labs, CT scan Medications Administered Discontinued Medications Generic Name Dose Route Start Last Admin Trade Name Freq PRN Reason Stop Dose Admin Acetaminophen 975 mg 04/16/23 17:10 04/16/23 17:19 Acetaminophen 325 Mg Tablet PO 04/16/23 17:11 975 mg ONCE ONE Administration Acetaminophen 975 mg 04/16/23 22:02 04/16/23 22:09 Acetaminophen 325 Mg Tablet PO 04/16/23 22:03 975 mg ONCE ONE Administration Diatrizoate Meglum/Diatrizoate Sod 30 ml 04/16/23 20:19 04/16/23 20:20 Diatrizoate Meglumine, Sodium 30 Ml Solution PO 04/16/23 20:20 30 ml ONCE ONE Administration Sodium Chloride 1,000 mls @ 999 mls/hr 04/16/23 19:30 04/16/23 22:05 Ns IV 04/16/23 20:30 Infused .Q1H1M JESUS Infusion Promethazine HCl 12.5 mg/ 50.5 mls @ 202 mls/hr 04/16/23 19:22 04/16/23 20:21 Sodium Chloride IV 04/16/23 19:23 Infused ONCE ONE Infusion Iohexol 85 ml 04/16/23 20:20 04/16/23 20:20 Iohexol 350 Mg/Ml 100 Ml Infus..Btl IV 04/16/23 20:21 85 ml ONCE ONE Administration Morphine Sulfate 4 mg 04/16/23 19:57 04/16/23 20:09 Morphine Sulfate 4 Mg/Ml Cartridge IVPUSH 04/16/23 19:58 4 mg ONCE ONE Administration Protocol Medical Decision Making Medical Decision Making MDM Narrative: Patient is a 62-year-old woman with a history gastric bypass surgery and an open cholecystectomy who presents with 2 days of abdominal pain and she also said that she had been vomiting. She indicated that her pain seem primarily in the region of the right upper quadrant where she feels there is a palpable mass that she always assumed was a hernia. She feels is bigger and tender. Given her description of vomiting in her history of gastric bypass surgery a CT with oral contrast had been ordered at triage. The patient's labs including a CBC, BMP, LFTs and lipase were unremarkable. Urinalysis is likewise unremarkable with no ketones. Her CBC revealed postoperative changes from her gastric sleeve surgery but no description of any definite acute finding. There is diverticulosis of the colon and the radiologist said there was a question of mild sigmoid diverticulitis but the patient's clinical presentation is not consistent with sigmoid diverticulitis. Additionally the radiologist comments that there is a dilated common bile duct increased from previous exam but I suspect this is normal post cholecystectomy. The patient's LFTs are normal. The patient was given a dose of morphine and seemed remarkably better quite soon. She said that she was very hungry and requesting food to eat. Specifically she asked for a peanut butter and jelly sandwich. Once her CT came back with unremarkable results she was given food which he tolerated well. She seemed very eager to be discharged. Perhaps she has gastritis. I explained that there was no abdominal wall hernia at all. Perhaps the tender mass she feels could be scar tissue. She is already on omeprazole. She will be prescribed sucralfate and ondansetron. She should follow up with the regular doctor next week. Return if worse. Lab Data 04/16/23 15:45 04/16/23 15:45 Labs: Lab Results 04/16/23 04/16/23 Range/Units 15:45 20:36 WBC 7.3 (4.8-10.8) X10*3/uL RBC 4.81 (4.20-5.50) X10*6/uL Hgb 12.8 (12.0-16.0) g/dl Hct 41.5 (37.0-47.0) % MCV 86.3 (80.0-98.0) fL MCH 26.6 L (27.0-33.0) pg MCHC 30.8 L (31.0-35.0) g/dl RDW 15.3 (11.0-16.0) % Plt Count 322 (160-400) X10*3/uL MPV 9.6 (9.4-12.3) fL Immature Gran % (Auto) 0.8 H (0.0-0.4) % Neut % (Auto) 63.4 (45-73) % Lymph % (Auto) 24.0 (20-40) % [place] % (Auto) 10.5 (2-11) % Eos % (Auto) 0.8 (0-4) % Baso % (Auto) 0.5 (0-2) % Lymph # (Auto) 1.8 (1.2-4.9) X10*3/uL [place] # (Auto) 0.8 (0.1-1.2) X10*3/uL Eos # (Auto) 0.1 (0.0-0.4) X10*3/uL Baso # (Auto) 0.0 (0.0-0.2) X10*3/uL Abs Immat Gran (auto) 0.06 H (0.00-0.03) X10*3/uL Absolute Neuts (auto) 4.7 (2.0-8.3) x10*3/uL Absolute Nucleated RBC 0.000 (0.0-0.012) X10*3/uL Nucleated RBC % (auto) 0.0 (0.0-0.2) /100WBC PT 11.8 (11.1-13.3) SEC INR 1.0 (0.9-1.1) Sodium 139 (135-145) mmol/L Potassium 4.8 (3.3-5.1) mmol/L Chloride 105 (96-108) mmol/L Carbon Dioxide 29 (22-29) mmol/L Anion Gap 10 L (12-20) BUN 13 (9-16) mg/dL Creatinine 0.78 (0.5-1.4) mg/dL Estim Creat Clear Calc 73.4 Estimated GFR > 60 Random Glucose 77 (60-115) mg/dL Lactic Acid 0.8 (0.5-2.0) mmol/L Calcium 9.0 (8.4-10.2) mg/dL Total Bilirubin 0.2 (0.0-1.0) mg/dL AST 23 (5-31) U/L ALT 25 (0-31) U/L Alkaline Phosphatase 85 (39-117) U/L Total Protein 7.4 (6.5-8.0) g/dL Albumin 4.0 (3.5-5.0) g/dL Lipase 22 (8-78) U/L Urine Color Yellow Urine Appearance Clear Urine pH 6.5 (5.0-9.0) Ur Specific [place] 1.015 (1.005-1.025) Urine Protein Negative (Neg-Trace) mg/dL Urine Glucose (UA) Negative (Negative) mg/dL Urine Ketones Negative (Negative) mg/dL Urine Blood Trace H (Negative) Urine Nitrite Negative (Negative) Ur Leukocyte Esterase Negative (Negative) Urine RBC 0-2 (0-2) /HPF Urine WBC 0-5 (0-5) /HPF Ur Squamous Epith Cells 0-2 (0-2) /HPF Urine Bacteria None Seen (None Seen) Hyaline Casts 0-2 (0-2) /LPF Discharge Plan Discharge Clinical Impression: Right upper quadrant abdominal pain, Vomiting Patient Disposition: Home, Self-Care Additional Instructions: Your testing in the emergency room today is very reassuring from the point of view of any dangerous process. There is no surgical process at work. I do not have a good explanation for the tender lump on your right side. There is no hernia there. Perhaps this is scar tissue from your gallbladder surgery. Your pain may also be related to stomach acid problems. Please continue your omeprazole. I have also sent a prescription for a medication called sucralfate the you may use on an as-needed basis in addition to the omeprazole for pain in your upper abdomen. I have also sent a prescription for medication called ondansetron which you may use as needed for nausea. Please follow-up soon with your regular doctor. Return to the emergency room if worse Prescriptions: New ondansetron 4 mg tablet,disintegrating 4 mg PO Q6H PRN (Reason: nausea and vomiting) Qty: 10 0RF sucralfate 1 gram tablet 1 g PO TID PRN (Reason: upper abdominal pain) Qty: 30 0RF No Action albuterol sulfate [Ventolin HFA] 90 mcg/actuation HFA aerosol inhaler 2 puff PO Q6H PRN (Reason: for wheezing) 30 Days Qty: 18 6RF meclizine [Dramamine Less Drowsy] 25 mg tablet 25 mg PO TID PRN (Reason: dizziness) Qty: 20 0RF perphenazine 4 mg tablet 4 mg PO BID@1200,2100 pyridoxine (vitamin B6) 100 mg tablet 200 mg PO DAILY@1200 ondansetron 4 mg tablet,disintegrating 4 mg PO Q8H PRN (Reason: nausea and vomiting) Qty: 10 0RF doxepin 75 mg capsule 75 mg PO BEDTIME Adult Multivitamin Gummies 200 mcg tablet,chewable 1 tab PO DAILY estazolam 1 mg tablet 3 mg PO BEDTIME Flovent HFA 220 mcg/actuation HFA aerosol inhaler 2 puff inhalation BID alendronate 70 mg tablet 70 mg PO TU cholecalciferol (vitamin D3) 25 mcg (1,000 unit) tablet 25 mcg PO DAILY fluticasone propion-salmeterol 500-50 mcg/dose blister with device 1 inh inhalation BID 30 Days Qty: 60 3RF omeprazole 40 mg capsule,delayed release(DR/EC) 40 mg PO DAILY@0630 lidocaine 5 % adhesive patch,medicated 1 patch topical DAILY venlafaxine 25 mg tablet 25 mg PO DAILY@1200 magnesium oxide 400 mg (241.3 mg magnesium) tablet 400 mg PO DAILY@1200 levothyroxine 100 mcg tablet 100 mcg PO DAILY@0600 Referrals: [facility] [Provider Group] (abdominal pain) Interventions: ED Discharge Assessment Last Done: 04/16/23 22:30 Discharge Date/Time: 04/16/23 22:31
[2023-04-16 15:51] LABS: MANUAL DIFF FLAG NO
[2023-04-16 15:53] LABS: Basophils Percent Auto 0.5 % (0-2); Eosinophils Absolute Auto 0.1 X10*3/uL (0.0-0.4); Eosinophils Percent Auto 0.8 % (0-4); Hematocrit 41.5 % (37.0-47.0); Hemoglobin 12.8 g/dl (12.0-16.0); Imm Gran Abs Auto 0.06 X10*3/uL (0.00-0.03); Imm Gran Pct Auto 0.8 % (0.0-0.4); Lymphocytes Absolute Auto 1.8 X10*3/uL (1.2-4.9); Mean Corpuscular HGB Conc 30.8 g/dl (31.0-35.0); Mean Corpuscular Hemoglobin 26.6 pg (27.0-33.0); Mean Corpuscular Volume 86.3 fL (80.0-98.0); Mean Platelet Volume 9.6 fL (9.4-12.3); Monocytes Absolute Auto 0.8 X10*3/uL (0.1-1.2); Monocytes Percent Auto 10.5 % (2-11); Neutrophils Absolute Auto 4.7 x10*3/uL (2.0-8.3); Neutrophils Percent Auto 63.4 % (45-73); Platelet Count 322 X10*3/uL (160-400); Red Blood Count 4.81 X10*6/uL (4.20-5.50); Red Cell Distribution Width 15.3 % (11.0-16.0); White Blood Count 7.3 X10*3/uL (4.8-10.8)
[2023-04-16 16:02] LABS: Lactic Acid 0.8 mmol/L (0.5-2.0)
[2023-04-16 16:05] LABS: Prothrombin Time 11.8 SEC (11.1-13.3)
[2023-04-16 16:07] LABS: Alanine Aminotransferase 25 U/L (0-31); Alkaline Phosphatase 85 U/L (39-117); Anion Gap 10 (12-20); Aspartate Amino Transferase 23 U/L (5-31); Bilirubin Total 0.2 mg/dL (0.0-1.0); Blood Urea Nitrogen 13 mg/dL (9-16); Carbon Dioxide 29 mmol/L (22-29); Chloride 105 mmol/L (96-108); Creatinine Clr Calc Pharmacy 73.4; Estimated Glomerular Filt Rate > 60; Glucose Random 77 mg/dL (60-115); Lipase 22 U/L (8-78); Potassium 4.8 mmol/L (3.3-5.1); Sodium 139 mmol/L (135-145); Total Protein 7.4 g/dL (6.5-8.0)
[2023-04-16] MEDS: Acetaminophen 325 MG TABLET 975 MG PO ×2 (17:19→22:09)
[2023-04-16] MEDS: 0.9 % Sodium Chloride 1,000 ML 999 ML IV (19:54)
[2023-04-16 20:00] VITALS: BP 116/64; PULSE 63; RESP 16; TEMP 36.6; O2SAT 98
[2023-04-16] MEDS: Morphine Sulfate 4 MG/ML CARTRIDGE IVPUSH (20:09)
[2023-04-16] MEDS: Diatrizoate Meglumine, Sodium 30 ML SOLUTION PO (20:20)
[2023-04-16] MEDS: iohexoL 350 MG/ML 100 ML INFUS..BTL 85 ML IV (20:20)
[2023-04-16 20:44] LABS: Appearance Urine Clear; Color Urine Yellow; Glucose Urine UA Negative (Negative); Leukocyte Esterase Urine Negative (Negative); Nitrite Urine Negative (Negative); PH 6.5 (5.0-9.0); Specific Gravity - Urine 1.015 (1.005-1.025); UMIC TRIGGER UACC YES; Urine Blood Trace (Negative); Urine Ketones Negative (Negative); Urine Protein Negative (Neg-Trace)
[2023-04-16 20:50] LABS: Bacteria Urine None Seen (None Seen); Hyaline Casts Urine 0-2 /LPF (0-2); RBC Urine 0-2 /HPF (0-2); Squamous Epithelial Cell Urine 0-2 /HPF (0-2); WBC Urine 0-5 /HPF (0-5)
== END 2023-04-16 22:31 | disposition home or self-care (01) ==
PROVIDERS: Physician Assistant; Emergency Provider Emergency Medicine
DX: R10.11 Right upper quadrant pain (principal); R11.10 Vomiting, unspecified; Z98.84 Bariatric surgery status; Z90.49 Acquired absence of other specified parts of digestive tract
CPT/HCPCS: 36415; 74177; 80053; 81001; 83605; 83690; 85025; 85610; 96361; 96374; 96375; 99284; 99285; J2270; J2550; Q9967

== ENCOUNTER 2023-04-20 11:43 | Outpatient (REF) | payer MEDICAID, SELFPAY ==
--- NOTE | ~2023-04-20 | MM_ITS ---
EXAMINATION: MM SCREENING DIGITAL BREAST TOMOSYNTHESIS, BILATERAL CLINICAL INFORMATION: Screening. Asymptomatic. COMPARISON: Mammography: 04/09/2022, 04/02/2021, 08/01/2019, 02/27/2019, 02/04/2018 TECHNIQUE: Digital breast tomosynthesis is performed in both the craniocaudal and mediolateral oblique views along with computer-aided detection (CAD). Synthesized 2D images are generated from the tomosynthesis. FINDINGS: There are scattered areas of fibroglandular density (ACR BI-RADS breast composition Category b). There are no suspicious masses, suspicious grouped calcifications, or areas of architectural distortion in either breast. The parenchymal pattern is stable from prior exams. MM/MM tomosynthesis screening BI IMPRESSION: No mammographic evidence of malignancy. ASSESSMENT: BI-RADS BI-RADS 1 - Negative RECOMMENDATION: Routine annual mammography screening. 1 year F/U This examination should not preclude the clinical evaluation of a suspicious palpable abnormality. This patient's information was entered into a reminder system with a target due date for their next mammogram.
== END 2023-04-20 11:44 | disposition home or self-care (01) ==
LOC: HO.MAMMO 11:43
PROVIDERS: PCP Internal Medicine Geriatric Medicine; Visit Provider Internal Medicine Geriatric Medicine
DX: Z12.31 Encounter for screening mammogram for malignant neoplasm of breast (principal)
CPT/HCPCS: 77063; 77067

== ENCOUNTER → 2023-04-20 12:00 | Outpatient (BNV) | payer MEDICAID, SELFPAY | PROVIDERS: PCP Internal Medicine Geriatric Medicine; Visit Provider Radiology Diagnostic Radiology | DX: Z12.31 Encounter for screening mammogram for malignant neoplasm of breast (principal) | CPT/HCPCS: 77063; 77067 ==

== ENCOUNTER 2023-05-06 21:58 | Emergency (ER) | payer MEDICAID, SELFPAY ==
[2023-05-06 22:18] VITALS: BP 122/78; BP 131/64; PULSE 82; PULSE 83; RESP 16; TEMP 36.9; O2SAT 100; O2SAT 98; BMI 35.1
--- NOTE | 2023-05-06 22:28 | ECG_ITS ---
Test Reason : FALL Blood Pressure : / mmHG Vent. Rate : 074 BPM Atrial Rate : 074 BPM P-R Int : 156 ms QRS Dur : 074 ms QT Int : 394 ms P-R-T Axes : -02 006 000 degrees QTc Int : 437 ms Normal sinus rhythm Normal ECG When compared with ECG of 27-NOV-2022 14:29, No significant change was found Referred By: Jessi Grady Electronically Signed By:DANTE STANLEY
[2023-05-06] MEDS: Acetaminophen 325 MG TABLET 975 MG PO (22:34)
[2023-05-06] MEDS: Ibuprofen 400 MG TABLET PO (22:34)
--- NOTE | 2023-05-06 22:37 | PC.NURSE ---
pt biba from home reporting having a dizzy spell and falling and hitting head at 630pm, pt denies loc and blood thinners. pt reports since fall she has had increasing head pain. pt reports episodes of nausea and sore throat prior to fall. pt a&ox4, neuros in tact. at bedside discussing pt care. pt medciated per apr.
--- NOTE | 2023-05-06 22:45 | ED_ITS ---
HPI - Fall General Chief Complaint: Fall Stated Complaint: FALL, +HEAD STRIKE, -LOC Time Seen by Provider: 05/06/23 22:20 Source: patient Mode of arrival: EMS History of Present Illness HPI Narrative: 62-year-old female with a history of vertigo and currently treated by her primary care doctor through [facility] states that she got up from bed at 18:30 this evening and fell without loss of consciousness, denies any use of chronic anticoagulation and states that 2 days ago she did experience some subjective fevers but otherwise no nausea or vomiting or dysuria. Patient states that she went back to bed and woke up later with a headache, did not take any analgesics and called EMS. Related Data Home Medications Medication Instructions Recorded Confirmed doxepin 75 mg capsule 75 mg PO BEDTIME 11/22/19 03/23/23 multivitamin with minerals-folic 1 tab PO DAILY 11/22/19 03/23/23 acid 200 mcg chewable tablet (Adult Multivitamin Gummies) estazolam 1 mg tablet 3 mg PO BEDTIME 06/06/20 03/23/23 fluticasone propionate 220 2 puff inhalation BID 12/30/20 03/23/23 mcg/actuation HFA aerosol inhaler (Flovent HFA) alendronate 70 mg tablet 70 mg PO TU 06/03/22 03/23/23 cholecalciferol (vitamin D3) 25 25 mcg PO DAILY 06/03/22 03/23/23 mcg (1,000 unit) tablet perphenazine 4 mg tablet 4 mg PO BID@1200,2100 06/04/22 03/23/23 levothyroxine 100 mcg tablet 100 mcg PO DAILY@0600 10/01/22 03/23/23 lidocaine 5 % topical patch 1 patch topical DAILY 10/01/22 03/23/23 magnesium oxide 400 mg (241.3 mg 400 mg PO DAILY@1200 10/01/22 03/23/23 magnesium) tablet omeprazole 40 mg capsule,delayed 40 mg PO DAILY@0630 10/01/22 03/23/23 release venlafaxine 25 mg tablet 25 mg PO DAILY@1200 10/01/22 03/23/23 pyridoxine (vitamin B6) 100 mg 200 mg PO DAILY@1200 11/27/22 03/23/23 tablet Previous Rx's Medication Instructions Recorded meclizine 25 mg tablet (Dramamine 25 mg PO TID PRN dizziness #20 tabs 12/19/20 Less Drowsy) ondansetron 4 mg disintegrating 4 mg PO Q8H PRN nausea and 09/10/22 tablet vomiting #10 tabs albuterol sulfate 90 mcg/actuation 2 puff PO Q6H PRN for wheezing 30 10/29/22 aerosol inhaler (Ventolin HFA) days #18 grams fluticasone 500 mcg-salmeterol 50 1 inh inhalation BID ASTHMA 30 04/07/23 mcg/dose blistr powdr for days #60 ea inhalation ondansetron 4 mg disintegrating 4 mg PO Q6H PRN nausea and 04/16/23 tablet vomiting #10 tabs sucralfate 1 gram tablet 1 g PO TID PRN upper abdominal 04/16/23 pain #30 tabs Allergies Allergy/AdvReac Type Severity Reaction Status Date / Time nalbuphine [From Nubain] Allergy Severe Anaphylaxis Verified 05/06/23 22:21 Review of Systems Review of Systems: Pertinent positives and negatives as stated in HPI [facility] Past Medical History Source: nursing notes reviewed Medical History Somnolence, daytime Obesity (BMI 30-39.9) Nausea & vomiting Migraine Syncope Pseudotumor cerebri Kidney calculi Crystal arthropathy Right shoulder injury Kidney tumor COVID-19 vaccine administered Thyroid disease Colon polyp Diverticulosis of colon Bronchial asthma Acid reflux Surgical History History of esophagogastroduodenoscopy (EGD) History of surgery on wrist History of hysterectomy Previous section Hx laparoscopic cholecystectomy Hx of gastric bypass (03/12/15) Hx of colonoscopy Family History Family History Father Heart disease History of open heart surgery Mother Heart disease Social History Social History Household Members: None Household Members Other:: alone Are you a primary customer care associate to a significant other at home: No Do you presently have visiting nurse or other home services: No Alcohol intake: never Patient Tobacco Use Status: Former Tobacco user Quit Date: 2007 Tobacco use type: Cigarette Smoked in Last 30 Days: No Use of substances other than those prescribed or required for medical reasons: No Advance Directives: No Advance Directives Information Provided: Yes service: No Current occupational status: disabled Physical Exam Vital Signs: Vital Signs: Last Vital Signs Temp 98.5 F 05/06/23 22:18 Pulse 79 05/07/23 00:37 Resp 16 05/06/23 22:18 BP 133/85 05/07/23 00:37 Pulse Ox 98 05/06/23 22:18 O2 Del Method Room Air 05/06/23 22:18 BMI result Body Mass Index 35.1 VITAL SIGNS: Reviewed. GENERAL: Well developed, well nourished, in no acute distress. HEAD: Normocephalic/atraumatic EYES: PERRLA, EOMI, no nystagmus or gaze palsies noted EARS: Ext canals without abnormality, TMs non-bulging and non-erythematous NOSE: Nares patent bilateral OROPHARYNX: no oral lesions noted, posterior pharynx clear and non-erythematous without noted tonsillar enlargement/erythema/exudates NECK: Supple, no adenopathy, no midline cervical spine tenderness to palpation or step-offs. LUNGS: Normal breath sounds. No adventitious sounds or accessory muscle use. SpO2<98> CARDIOVASCULAR: Regular rate and rhythm without noted murmurs ABDOMEN: Soft, non-tender, non-distended with bowel sounds. PELVIS: Stable, nontender MUSCULOSKELETAL: No tenderness, deformities, or effusions noted on gross inspection. EXTREMITIES: No cyanosis, clubbing or edema. SKIN: Inspection of the skin reveals no rashes NEUROLOGIC: Alert and oriented x 4. Strength and sensation to light touch were grossly intact x 4, no facial asymmetry, no pronator drift, cranial nerves 2-12 grossly intact. Medications Administered Discontinued Medications Generic Name Dose Route Start Last Admin Trade Name Freq PRN Reason Stop Dose Admin Acetaminophen 975 mg 05/06/23 22:28 05/06/23 22:34 Acetaminophen 325 Mg Tablet PO 05/06/23 22:29 975 mg ONCE ONE Administration Ibuprofen 400 mg 05/06/23 22:28 05/06/23 22:34 Ibuprofen 400 Mg Tablet PO 05/06/23 22:29 400 mg ONCE ONE Administration Medical Decision Making Medical Decision Making MDM Narrative: 62-year-old female with history and clinical presentation most consistent with likely episode of vertigo, she is nonfocal, will evaluate for presence of any urinary tract infection/arrhythmia/viral illness. Otherwise, no findings or history to necessitate CT scan of head. Patient also provided with combination analgesics. I reviewed all investigations and EKG does not demonstrate any concerning arrhythmias, urinalysis is negative for urinary tract infection, orthostatics are negative. Viral testing is negative for influenza/RSV/COVID-19 Differential Diagnosis Differential Diagnoses: The differential diagnosis associated with the presentation includes Please see the discussion Admission/Observation Consideration of admission/observation: Escalation of care including admission/observation considered Please see the discussion above Lab Data MDM Lab Attestation statement: I reviewed the patient's lab results. Please see the discussion above Labs: Lab Results 05/06/23 05/06/23 Range/Units 22:31 22:58 Urine Color Yellow Urine Appearance Clear Urine pH 6.5 (5.0-9.0) Ur Specific [place] 1.025 (1.005-1.025) Urine Protein Negative (Neg-Trace) mg/dL Urine Glucose (UA) Negative (Negative) mg/dL Urine Ketones Negative (Negative) mg/dL Urine Blood Small (1+) H (Negative) Urine Nitrite Negative (Negative) Ur Leukocyte Esterase Trace H (Negative) Urine RBC 6-10 H (0-2) /HPF Urine WBC 0-5 (0-5) /HPF Ur Squamous Epith Cells 0-2 (0-2) /HPF Other Crystals Present Urine Bacteria None Seen (None Seen) Hyaline Casts 0-2 (0-2) /LPF Influenza Type A (PCR) NEGATIVE (Negative) Influenza Type B (PCR) NEGATIVE (Negative) RSV RNA Qual (PCR) NEGATIVE (Negative) SARS-CoV-2 RNA (RT-PCR) NEGATIVE (Negative) Independent Interpretation I performed an independent interpretation of an: EKG Interpretation: Normal sinus rhythm, HR-74, no STEMI, NM/QRS/QTC is within normal limits. External Record Review External record reviewed: Outpatient record and Prior outpatient labs Discharge Plan Discharge Clinical Impression: Vertigo, Fall Patient Disposition: Home, Self-Care Instructions: Vertigo (ED) Additional Instructions: Follow-up with primary care doctor by calling the office 1st thing in the morning to set up an appointment for re-evaluation. Prescriptions: No Action albuterol sulfate [Ventolin HFA] 90 mcg/actuation HFA aerosol inhaler 2 puff PO Q6H PRN (Reason: for wheezing) 30 Days Qty: 18 6RF meclizine [Dramamine Less Drowsy] 25 mg tablet 25 mg PO TID PRN (Reason: dizziness) Qty: 20 0RF perphenazine 4 mg tablet 4 mg PO BID@1200,2100 pyridoxine (vitamin B6) 100 mg tablet 200 mg PO DAILY@1200 ondansetron 4 mg tablet,disintegrating 4 mg PO Q6H PRN (Reason: nausea and vomiting) Qty: 10 0RF sucralfate 1 gram tablet 1 g PO TID PRN (Reason: upper abdominal pain) Qty: 30 0RF ondansetron 4 mg tablet,disintegrating 4 mg PO Q8H PRN (Reason: nausea and vomiting) Qty: 10 0RF doxepin 75 mg capsule 75 mg PO BEDTIME Adult Multivitamin Gummies 200 mcg tablet,chewable 1 tab PO DAILY estazolam 1 mg tablet 3 mg PO BEDTIME Flovent HFA 220 mcg/actuation HFA aerosol inhaler 2 puff inhalation BID alendronate 70 mg tablet 70 mg PO TU cholecalciferol (vitamin D3) 25 mcg (1,000 unit) tablet 25 mcg PO DAILY fluticasone propion-salmeterol 500-50 mcg/dose blister with device 1 inh inhalation BID 30 Days Qty: 60 3RF omeprazole 40 mg capsule,delayed release(DR/EC) 40 mg PO DAILY@0630 lidocaine 5 % adhesive patch,medicated 1 patch topical DAILY venlafaxine 25 mg tablet 25 mg PO DAILY@1200 magnesium oxide 400 mg (241.3 mg magnesium) tablet 400 mg PO DAILY@1200 levothyroxine 100 mcg tablet 100 mcg PO DAILY@0600 Referrals: Name,MD Gregg [Primary Care Provider] -
[2023-05-06 23:14] LABS: Influenza A PCR NEGATIVE (Negative); Influenza B PCR NEGATIVE (Negative); Resp Syncy Virus RNA Qual PCR NEGATIVE (Negative); SARS COV2 PCR INHOUSE NEGATIVE (Negative)
[2023-05-06 23:20] LABS: Appearance Urine Clear; Color Urine Yellow; Glucose Urine UA Negative (Negative); Leukocyte Esterase Urine Trace (Negative); Nitrite Urine Negative (Negative); PH 6.5 (5.0-9.0); Specific Gravity - Urine 1.025 (1.005-1.025); UMIC TRIGGER UACC YES; Urine Blood Small (1+) (Negative); Urine Ketones Negative (Negative); Urine Protein Negative (Neg-Trace)
[2023-05-06 23:31] LABS: Bacteria Urine None Seen (None Seen); Hyaline Casts Urine 0-2 /LPF (0-2); Other Crystals Urine Present; Squamous Epithelial Cell Urine 0-2 /HPF (0-2); WBC Urine 0-5 /HPF (0-5)
[2023-05-07 00:35] VITALS: BP 118/58; PULSE 69
[2023-05-07 00:36] VITALS: BP 124/78; PULSE 77
[2023-05-07 00:37] VITALS: BP 133/85; PULSE 79
[2023-05-07 01:44] VITALS: BP 133/70; PULSE 79; RESP 17; TEMP 36.6; O2SAT 100
[2023-05-07 01:53] VITALS: BP 133/70; PULSE 79; RESP 17; TEMP 36.6; O2SAT 100
== END 2023-05-07 01:54 | disposition home or self-care (01) ==
PROVIDERS: Emergency Provider Student in an Organized Health Care Education/Training Program; PCP Internal Medicine Geriatric Medicine
DX: S09.90XA Unspecified injury of head, initial encounter (principal); R42 Dizziness and giddiness; R50.9 Fever, unspecified; W01.0XXA Fall on same level from slipping, tripping and stumbling without subsequent striking against object, initial encounter; Y93.9 Activity, unspecified; Y92.9 Unspecified place or not applicable; Y99.8 Other external cause status; Z11.52 Encounter for screening for COVID-19; Z20.822 Contact with and (suspected) exposure to COVID-19; Z79.899 Other long term (current) drug therapy; Z87.891 Personal history of nicotine dependence
CPT/HCPCS: 0241U; 81001; 93005; 99283; 99285

== ENCOUNTER → 2023-05-06 22:28 | Outpatient (BNV) | payer MEDICAID, SELFPAY | PROVIDERS: Emergency Provider Student in an Organized Health Care Education/Training Program; PCP Internal Medicine Geriatric Medicine; Visit Provider Internal Medicine | DX: R51.9 Headache, unspecified (principal); W19.XXXA Unspecified fall, initial encounter | CPT/HCPCS: 93010 ==

== ENCOUNTER 2023-05-30 13:35 | Emergency (ER) | payer MEDICAID, SELFPAY ==
[2023-05-30] VITALS (7 sets, daily range): BP systolic 99–138; BP diastolic 56–81; PULSE 68–87; RESP 15–18; TEMP 36.6–37.1; O2SAT 97–100; BMI 35.1
--- NOTE | ~2023-05-30 | XR_ITS ---
EXAMINATION: XR CHEST 2 VIEWS CLINICAL INFORMATION: Near-syncope. COMPARISON: Prior chest radiographs, most recently 11/19/2022. TECHNIQUE: Frontal and lateral views of the chest were obtained. FINDINGS: The heart, great vessels, pulmonary vasculature and mediastinum are normal. The lungs show no focal infiltrate, effusion or pneumothorax. There is diminished, mild left base scar/subsegmental atelectasis. There is no acute osseous abnormality. There are upper abdominal surgical clips. XR/XR chest 2V IMPRESSION: 1. No focal infiltrate or congestive heart clear seen. 2. There is mild chronic left base scar/subsegmental atelectasis, improved from prior.
--- NOTE | ~2023-05-30 | CT_ITS ---
EXAMINATION: CT ABDOMEN AND PELVIS WITHOUT CONTRAST CLINICAL INFORMATION: Abdominal bloating. COMPARISON: CT abdomen pelvis dated 04/16/2023. TECHNIQUE: Multidetector volumetric imaging was performed from the superior aspect of the liver through the pubic symphysis. Sagittal and coronal reformatted images were obtained on the technologist's workstation. This CT examination was performed using dose optimization techniques as appropriate, variously including the following: *Automated exposure control *Adjustment of mA and/or kV according to patient size (this includes techniques or standardized protocols for targeted exams where dose is matched to indication/reason for exam; i.e. extremities or head) *Use of iterative reconstruction technique DLP: 896 mGy-cm FINDINGS: LUNG BASES: The visualized lung bases are unremarkable. LIVER, GALLBLADDER, AND BILIARY TREE: The liver is normal in size, shape, and attenuation. No focal hepatic lesion or biliary ductal dilatation is present. The gallbladder is unremarkable with no evidence of radiopaque gallstones, gallbladder wall thickening, or obvious pericholecystic inflammatory changes. The common bile duct remains dilated, measuring up to 1.1 cm in diameter. PANCREAS: Unremarkable. SPLEEN: Unremarkable. ADRENAL GLANDS: Unremarkable. KIDNEYS AND URETERS: The kidneys are normal in size, shape, and attenuation. No hydronephrosis, hydroureter, or calculi seen. No perinephric stranding. There are stable left parapelvic cysts. BLADDER: Unremarkable. GASTROINTESTINAL TRACT: There are postoperative changes status post gastric surgery. The small bowel and colon are normal in caliber. There is a moderate degree of sigmoid colon and descending colon diverticulosis. There is no evidence of acute diverticulitis. The appendix is normal in appearance. ABDOMINAL WALL: No significant hernia is appreciated. LYMPH NODES: No abdominal or pelvic lymphadenopathy. VASCULAR: No abdominal aortic aneurysm. PELVIC VISCERA: The uterus is surgically absent. There is no adnexal mass. OSSEOUS STRUCTURES: There are stable degenerative changes of the spine. CT/CT abdomen pelvis wo IV con IMPRESSION: No acute intra-abdominal/intrapelvic abnormality. There are postoperative changes status post gastric surgery. There is moderate sigmoid colon and descending colon diverticulosis. There is no convincing evidence of acute diverticulitis. Status post cholecystectomy. The common bile duct remains dilated, measuring up to 1.1 cm in diameter. Status post hysterectomy. No adnexal mass. Fleischner guidelines were followed.
--- NOTE | 2023-05-30 14:11 | ECG_ITS ---
Test Reason : NEAR SYNCOPE Blood Pressure : / mmHG Vent. Rate : 071 BPM Atrial Rate : 071 BPM P-R Int : 156 ms QRS Dur : 074 ms QT Int : 390 ms P-R-T Axes : 035 008 007 degrees QTc Int : 423 ms Normal sinus rhythm Nonspecific T wave abnormality Borderline ECG When compared with ECG of 06-MAY-2023 22:48, No significant change was found Referred By: Generic ED Physician Electronically Signed By:DANTE STANLEY
[2023-05-30 15:48] LABS: MANUAL DIFF FLAG NO
[2023-05-30 15:49] LABS: Basophils Percent Auto 0.4 % (0-2); Eosinophils Absolute Auto 0.1 X10*3/uL (0.0-0.4); Eosinophils Percent Auto 0.9 % (0-4); Hematocrit 42.5 % (37.0-47.0); Hemoglobin 13.3 g/dl (12.0-16.0); Imm Gran Abs Auto 0.03 X10*3/uL (0.00-0.03); Imm Gran Pct Auto 0.3 % (0.0-0.4); Lymphocytes Absolute Auto 1.2 X10*3/uL (1.2-4.9); Lymphocytes Percent Auto 13.5 % (20-40); Mean Corpuscular HGB Conc 31.3 g/dl (31.0-35.0); Mean Corpuscular Hemoglobin 26.3 pg (27.0-33.0); Mean Platelet Volume 9.6 fL (9.4-12.3); Monocytes Absolute Auto 0.9 X10*3/uL (0.1-1.2); Monocytes Percent Auto 10.3 % (2-11); Neutrophils Absolute Auto 6.8 x10*3/uL (2.0-8.3); Neutrophils Percent Auto 74.6 % (45-73); Platelet Count 310 X10*3/uL (160-400); Red Blood Count 5.06 X10*6/uL (4.20-5.50); Red Cell Distribution Width 14.7 % (11.0-16.0); White Blood Count 9.1 X10*3/uL (4.8-10.8)
[2023-05-30 16:06] LABS: COVID-19 Test Negative (Negative); IDNOW Serial# 152EDE1D
[2023-05-30 16:07] LABS: IDNOW Serial# 08D9AD1C; Influenza A Negative (Negative); Influenza B2 Negative (Negative)
--- NOTE | 2023-05-30 16:20 | ED_ITS ---
HPI - General Adult General Chief complaint: General Medical Stated complaint: WEAKNESS NEAR SYNCOPE VOMITING Time Seen by Provider: 05/30/23 16:05 Source: patient, EMS, RN notes reviewed and old records reviewed Mode of arrival: EMS Limitations: no limitations History of Present Illness HPI narrative: 62-year-old female with pmhx significant for asthma, benign renal tumor, migraine, hypothyroid, GERD, diverticulosis, colonic polyps, pseudotumor cerebri, gastric bypass presents to the ED today via EMS from [facility] following a near syncopal episode occurring prior to arrival. Patient endorses numerous episodes of loose stool that began last night. While she was at [facility] today, she passed a loose bowel movement and upon leaving the bathroom, felt clammy and lightheaded as though she was going to pass out. She was able to lower herself to the ground. She did not fall. Denies head strike or LOC. EMS was called and she was transferred to the ED. she endorses associated abdominal bloating/pain that began last night as well. Denies recent travel or long car rides. Denies known sick contacts. Admits to influenza a few weeks ago in which she completed a course of tamiflu however denies recent antibiotics. Denies fever, chills, sore throat, nausea, vomiting, chest pain, SOB, constipation, calf pain/swelling. Related Data Home Medications ?Medication ?Instructions ?Recorded ?Confirmed doxepin 75 mg capsule 75 mg PO BEDTIME 11/22/19 03/23/23 multivitamin with minerals-folic 1 tab PO DAILY 11/22/19 03/23/23 acid 200 mcg chewable tablet (Adult Multivitamin Gummies) estazolam 1 mg tablet 3 mg PO BEDTIME 06/06/20 03/23/23 fluticasone propionate 220 2 puff inhalation BID 12/30/20 03/23/23 mcg/actuation HFA aerosol inhaler (Flovent HFA) alendronate 70 mg tablet 70 mg PO TU 06/03/22 03/23/23 cholecalciferol (vitamin D3) 25 25 mcg PO DAILY 06/03/22 03/23/23 mcg (1,000 unit) tablet perphenazine 4 mg tablet 4 mg PO BID@1200,2100 06/04/22 03/23/23 levothyroxine 100 mcg tablet 100 mcg PO DAILY@0600 10/01/22 03/23/23 lidocaine 5 % topical patch 1 patch topical DAILY 10/01/22 03/23/23 magnesium oxide 400 mg (241.3 mg 400 mg PO DAILY@1200 10/01/22 03/23/23 magnesium) tablet omeprazole 40 mg capsule,delayed 40 mg PO DAILY@0630 10/01/22 03/23/23 release venlafaxine 25 mg tablet 25 mg PO DAILY@1200 10/01/22 03/23/23 pyridoxine (vitamin B6) 100 mg 200 mg PO DAILY@1200 11/27/22 03/23/23 tablet Previous Rx's ?Medication ?Instructions ?Recorded meclizine 25 mg tablet (Dramamine 25 mg PO TID PRN dizziness #20 tabs 12/19/20 Less Drowsy) ondansetron 4 mg disintegrating 4 mg PO Q8H PRN nausea and 09/10/22 tablet vomiting #10 tabs albuterol sulfate 90 mcg/actuation 2 puff PO Q6H PRN for wheezing 30 10/29/22 aerosol inhaler (Ventolin HFA) days #18 grams fluticasone 500 mcg-salmeterol 50 1 inh inhalation BID ASTHMA 30 04/07/23 mcg/dose blistr powdr for days #60 ea inhalation ondansetron 4 mg disintegrating 4 mg PO Q6H PRN nausea and 04/16/23 tablet vomiting #10 tabs sucralfate 1 gram tablet 1 g PO TID PRN upper abdominal 04/16/23 pain #30 tabs vancomycin 125 mg capsule 125 mg PO QID 10 days #40 caps 05/30/23 (Vancocin) Allergies Allergy/AdvReac Type Severity Reaction Status Date / Time nalbuphine [From Nubain] Allergy Severe Anaphylaxis Verified 05/30/23 14:06 Review of Systems 2 Review of Systems: Constitutional: No fever, chills, fatigue, night sweats, weight changes ENT/Mouth: No ear pain, hearing loss, nasal congestion, sinus pain, rhinorrhea, sore throat Eyes: No eye pain, swelling, redness, vision changes, discharge Cardio: No chest pain, palpitations, GOMEZ, orthopnea, peripheral edema Pulm: No SOB, cough, sputum, wheezing, dyspnea, hemoptysis GI: No nausea, vomiting, hematemesis, constipation, hematochezia, melena, + abdominal pain/bloating, +diarrhea : No irregular bleeding, dysuria, frequency, urgency, hesitancy, hematuria, flank pain, urinary flow changes, urinary incontinence or retention MSK: No back pain, neck pain, joint pain, myalgias Skin: No lesions, rashes Neuro: No weakness, numbness, paresthesias, LOC, dizziness, headache Psych: No anxiety/panic, depression, SI/HI, AH/VH All other systems reviewed and are negative. [facility] Past Medical History Attestation statement: The following information was validated with the patient. Source: old records reviewed and nursing notes reviewed Medical History Somnolence, daytime Obesity (BMI 30-39.9) Nausea & vomiting Migraine Syncope Pseudotumor cerebri Kidney calculi Crystal arthropathy Right shoulder injury Kidney tumor COVID-19 vaccine administered Thyroid disease Colon polyp Diverticulosis of colon Bronchial asthma Acid reflux Surgical History History of esophagogastroduodenoscopy (EGD) History of surgery on wrist History of hysterectomy Previous section Hx laparoscopic cholecystectomy Hx of gastric bypass (03/12/15) Hx of colonoscopy Family History Family History Father Heart disease History of open heart surgery Mother Heart disease Social History Social History Household Members: None Household Members Other:: alone Are you a primary healthcare advisory services manager to a significant other at home: No Do you presently have visiting nurse or other home services: No Alcohol intake: never Patient Tobacco Use Status: Former Tobacco user Quit Date: 2007 Tobacco use type: Cigarette Advance Directives: No Advance Directives Information Provided: No service: No Current occupational status: disabled Physical Exam ED Vital Signs: Vital Signs - 24 hr 05/30/23 14:01 05/30/23 19:18 05/30/23 19:45 Temperature 97.9 F 98.3 F Pulse Rate 75 76 77 Respiratory Rate 15 15 Blood Pressure 99/60 132/72 113/56 L Pulse Oximetry 97 98 Oxygen Delivery Method Room Air Room Air 05/30/23 19:48 05/30/23 20:16 05/30/23 21:37 Temperature 98.7 F Pulse Rate 87 79 80 Respiratory Rate 17 Blood Pressure 129/61 138/63 130/75 Pulse Oximetry 100 Oxygen Delivery Method Room Air BMI result Body Mass Index 35.1 Vital signs stable, afebrile. Slightly hypotensive likely secondary to GI loss. Const General: cooperative, healthy appearing, comfortable and no acute distress Orientation/consciousness: patient oriented x3 Limitations: no limitations [facility] Head: Yes normal to inspection, Yes No palpable skull fracture present, Yes normocephalic and Yes atraumatic Eyes General: appearance normal, both eyes and all related structures Conjunctivae: conjunctivae normal Sclerae: sclerae normal Pupils: Equal, round and reactive pupils present Neck Neck: Yes normal visual inspection, Yes full ROM and Yes no lymphadenopathy Resp Effort & Inspection: normal respiratory effort and able to speak in complete sentences Auscultation: clear to auscultation bilaterally Cardio Jugular venous distension: no JVD Rate: regular rate Rhythm: regular rhythm GI Other: + abdomen soft, slightly distended, nontender to palpation. No rebound tenderness or guarding. Normoactive bowel sounds x4. Inspection: Yes normal to inspection General: Yes no CVA tenderness Back/Spine/Pelvis Back: no CVA tenderness Skin General skin exam: no rashes or lesions noted Neuro General: patient oriented x3 and gait normal Cranial nerves: Yes Equal, round and reactive pupils present Extrem General: Yes normal to inspection Course Course Course Narrative: 1214-- CBC without leukocytosis. No anemia. H&H stable. Chemistry without acute electrolyte abnormality requiring intervention. Normal renal function with a creatinine of 0.73. Normal liver function. Stool positive for C diff > RN notified and patient placed on contact precautions. Vancomycin ordered. Patient receiving IV fluids. No concern for sepsis. > UA, troponin, lactic, chest x-ray, CT abdomen/pelvis pending 2048-- lactic acid 3.3 > likely elevated secondary to C diff infection. IV fluids given. Repeat lactic 1.2 which is within normal limits. No concern for sepsis. Urine does not show infection. Chest x-ray does not reveal consolidations or infiltrates to suggest pneumonia. No effusion. CT abdomen/pelvis showing sigmoid and descending colon diverticulosis without evidence of acute diverticulitis. No other significant intra-abdominal abnormalities. Orthostatic vital signs are negative. troponin undetectable > unlikely ACS. EKG showing normal sinus rhythm at a rate of 71 beats per minute with nonspecific T-wave abnormality, QT 390, QTC 423. EKG was compared to EKG obtained on 05/06/2023 without significant change. > discussed plan with infectious disease physician, Dr. Barrett, who recommends discharge home with 10 days of p.o. vancomycin. > near syncopal episode occurring today likely secondary to GI loss and fasting. Workup essentially unremarkable. > discussed all workup results and plan with patient. She is agreeable with this and verbalizes understanding. She is currently tolerating soup. Talking on phone, well appearing. Patient has remained stable throughout ED visit today. Discussed worrisome signs and symptoms and when to return to the ED. All questions answered at this time. Patient is agreeable with disposition and stable for discharge. 2216-- at the end of vanco infusion, patient began stating that she felt itchy. Her scalp and forehead were noted to be erythematous. Concern for red man syndrome. Infusion discontinued. 50 of IV Benadryl administered. My attending physician, Dr. Sexton, aware and evaluated patient. She is now back to baseline. We will give her a dose of p.o. vancomycin prior to leaving the ED. she is agreeable with this. Medications Administered Discontinued Medications Generic Name Dose Route Start Last Admin Trade Name Freq PRN Reason Stop Dose Admin Diphenhydramine HCl 50 mg 05/30/23 21:27 05/30/23 21:34 Diphenhydramine Hcl 50 Mg/Ml Vial IVPUSH 05/30/23 21:28 50 mg ONCE ONE Administration Sodium Chloride 1,000 mls @ 999 mls/hr 05/30/23 16:30 05/30/23 18:56 Ns IV 05/30/23 17:30 Infused .Q1H1M JESUS Infusion Vancomycin HCl 2,000 mg in 500 mls @ 250 mls/hr 05/30/23 17:15 05/30/23 21:35 Vancomycin/Ns IV 05/30/23 19:14 Infused ONCE ONE Infusion Medical Decision Making Medical Decision Making MDM Narrative: 62-year-old female with pmhx significant for asthma, benign renal tumor, migraine, hypothyroid, GERD, diverticulosis, colonic polyps, pseudotumor cerebri, gastric bypass presents to the ED today via EMS from [facility] following a near syncopal episode occurring prior to arrival. Patient is slightly hypotensive likely secondary to GI loss. She is afebrile. Vitals otherwise WNL. She is nontoxic-appearing and in no acute distress. On exam, abdomen is soft, mildly distended, nontender to palpation, no rebound tenderness or guarding. Normoactive bowel sounds x4. No CVAT bilaterally. RRR. Lungs CTA bilaterally. Differential diagnosis includes viral syndrome, gastroenteritis, diverticulosis/diverticulitis, vertigo, orthostatic hypotension, ACS, arrhythmia, vasovagal syncope, dehydration, electrolyte abnormality, anemia Plan for labs, trop, EKG, chest x-ray, stool studies, CT scan abdomen/pelvis, and re-evaluation. Differential Diagnosis Differential Diagnoses: The differential diagnosis associated with the presentation includes As above Admission/Observation Consideration of admission/observation: Escalation of care including admission/observation considered In this patient with acute symptomatic Clostridium difficile, admission was considered. Consult Healthcare Provider Infectious disease (Dr. Barrett) Lab Data MDM Lab Attestation statement: I reviewed the patient's lab results. As above 05/30/23 15:42 05/30/23 15:42 Labs: Lab Results 05/30/23 05/30/23 05/30/23 Range/Units 15:42 17:47 20:08 WBC 9.1 (4.8-10.8) X10*3/uL RBC 5.06 (4.20-5.50) X10*6/uL Hgb 13.3 (12.0-16.0) g/dl Hct 42.5 (37.0-47.0) % MCV 84.0 (80.0-98.0) fL MCH 26.3 L (27.0-33.0) pg MCHC 31.3 (31.0-35.0) g/dl RDW 14.7 (11.0-16.0) % Plt Count 310 (160-400) X10*3/uL MPV 9.6 (9.4-12.3) fL Immature Gran % (Auto) 0.3 (0.0-0.4) % Neut % (Auto) 74.6 H (45-73) % Lymph % (Auto) 13.5 L (20-40) % [place] % (Auto) 10.3 (2-11) % Eos % (Auto) 0.9 (0-4) % Baso % (Auto) 0.4 (0-2) % Lymph # (Auto) 1.2 (1.2-4.9) X10*3/uL [place] # (Auto) 0.9 (0.1-1.2) X10*3/uL Eos # (Auto) 0.1 (0.0-0.4) X10*3/uL Baso # (Auto) 0.0 (0.0-0.2) X10*3/uL Abs Immat Gran (auto) 0.03 (0.00-0.03) X10*3/uL Absolute Neuts (auto) 6.8 (2.0-8.3) x10*3/uL Absolute Nucleated RBC 0.000 (0.0-0.012) X10*3/uL Nucleated RBC % (auto) 0.0 (0.0-0.2) /100WBC Sodium 139 (135-145) mmol/L Potassium 4.8 (3.3-5.1) mmol/L Chloride 106 (96-108) mmol/L Carbon Dioxide 27 (22-29) mmol/L Anion Gap 11 L (12-20) BUN 13 (9-16) mg/dL Creatinine 0.73 (0.5-1.4) mg/dL Estim Creat Clear Calc 82.8 Estimated GFR > 60 Random Glucose 90 (60-115) mg/dL Lactic Acid 3.3 H* (0.5-2.0) mmol/L Lactic Acid F/U @ 2Hr (0.5-2.0) mmol/L Calcium 9.3 (8.4-10.2) mg/dL Total Bilirubin 0.3 (0.0-1.0) mg/dL AST 29 (5-31) U/L ALT 31 (0-31) U/L Alkaline Phosphatase 93 (39-117) U/L Troponin I High Sens < 2.7 (<3.5-17.0) ng/L Total Protein 7.7 (6.5-8.0) g/dL Albumin 4.0 (3.5-5.0) g/dL Urine Color Yellow Urine Appearance Clear Urine pH 6.0 (5.0-9.0) Ur Specific Dorris 1.010 (1.005-1.025) Urine Protein Negative (Neg-Trace) mg/dL Urine Glucose (UA) Negative (Negative) mg/dL Urine Ketones Negative (Negative) mg/dL Urine Blood Trace H (Negative) Urine Nitrite Negative (Negative) Ur Leukocyte Esterase Trace H (Negative) Urine RBC 0-2 (0-2) /HPF Urine WBC 0-5 (0-5) /HPF Ur Squamous Epith Cells 0-2 (0-2) /HPF Urine Bacteria None Seen (None Seen) Hyaline Casts 0-2 (0-2) /LPF C. difficile Tox B Gene POSITIVE A* (Negative) C. difficile Toxin A&B Negative (Negative) C. difficile Interpret SEE NOTE COVID-19 (RICK) Negative (Negative) COVID-19 Clin Com See Note Influenza Type A (SMITA) Negative (Negative) Influenza Type B (SMITA) Negative (Negative) Influenza A & B Note See Note 05/30/23 Range/Units 20:25 WBC (4.8-10.8) X10*3/uL RBC (4.20-5.50) X10*6/uL Hgb (12.0-16.0) g/dl Hct (37.0-47.0) % MCV (80.0-98.0) fL MCH (27.0-33.0) pg MCHC (31.0-35.0) g/dl RDW (11.0-16.0) % Plt Count (160-400) X10*3/uL MPV (9.4-12.3) fL Immature Gran % (Auto) (0.0-0.4) % Neut % (Auto) (45-73) % Lymph % (Auto) (20-40) % [place] % (Auto) (2-11) % Eos % (Auto) (0-4) % Baso % (Auto) (0-2) % Lymph # (Auto) (1.2-4.9) X10*3/uL [place] # (Auto) (0.1-1.2) X10*3/uL Eos # (Auto) (0.0-0.4) X10*3/uL Baso # (Auto) (0.0-0.2) X10*3/uL Abs Immat Gran (auto) (0.00-0.03) X10*3/uL Absolute Neuts (auto) (2.0-8.3) x10*3/uL Absolute Nucleated RBC (0.0-0.012) X10*3/uL Nucleated RBC % (auto) (0.0-0.2) /100WBC Sodium (135-145) mmol/L Potassium (3.3-5.1) mmol/L Chloride (96-108) mmol/L Carbon Dioxide (22-29) mmol/L Anion Gap (12-20) BUN (9-16) mg/dL Creatinine (0.5-1.4) mg/dL Estim Creat Clear Calc Estimated GFR Random Glucose (60-115) mg/dL Lactic Acid (0.5-2.0) mmol/L Lactic Acid F/U @ 2Hr 1.2 (0.5-2.0) mmol/L Calcium (8.4-10.2) mg/dL Total Bilirubin (0.0-1.0) mg/dL AST (5-31) U/L ALT (0-31) U/L Alkaline Phosphatase (39-117) U/L Troponin I High Sens (<3.5-17.0) ng/L Total Protein (6.5-8.0) g/dL Albumin (3.5-5.0) g/dL Urine Color Urine Appearance Urine pH (5.0-9.0) Ur Specific Dorris (1.005-1.025) Urine Protein (Neg-Trace) mg/dL Urine Glucose (UA) (Negative) mg/dL Urine Ketones (Negative) mg/dL Urine Blood (Negative) Urine Nitrite (Negative) Ur Leukocyte Esterase (Negative) Urine RBC (0-2) /HPF Urine WBC (0-5) /HPF Ur Squamous Epith Cells (0-2) /HPF Urine Bacteria (None Seen) Hyaline Casts (0-2) /LPF C. difficile Tox B Gene (Negative) C. difficile Toxin A&B (Negative) C. difficile Interpret COVID-19 (RICK) (Negative) COVID-19 Clin Com Influenza Type A (SMITA) (Negative) Influenza Type B (SMITA) (Negative) Influenza A & B Note Independent Interpretation I performed an independent interpretation of an: EKG, Plain X-Ray and CT Scan Interpretation: EKG showing normal sinus rhythm at a rate of 71 beats per minute, nonspecific T- wave abnormality, QT 390, QTC 423, compared to EKG obtained on 05/06/2023 without significant change. Chest x-ray does not demonstrate infiltrate or consolidation to suggest pneumonia, agree with radiologist's interpretation. CT abdomen/pelvis does not demonstrate bowel obstruction, agree with radiologist's interpretation. Radiology Impression Discussion of test interpretation with radiology: I have reviewed the radiologist's reading. Radiologist Impression: EXAMINATION: CT ABDOMEN AND PELVIS WITHOUT CONTRAST CLINICAL INFORMATION: Abdominal bloating. COMPARISON: CT abdomen pelvis dated 04/16/2023. TECHNIQUE: Multidetector volumetric imaging was performed from the superior aspect of the liver through the pubic symphysis. Sagittal and coronal reformatted images were obtained on the technologist's workstation. This CT examination was performed using dose optimization techniques as appropriate, variously including the following: *Automated exposure control *Adjustment of mA and/or kV according to patient size (this includes techniques or standardized protocols for targeted exams where dose is matched to indication/reason for exam; i.e. extremities or head) *Use of iterative reconstruction technique DLP: 896 mGy-cm FINDINGS: LUNG BASES: The visualized lung bases are unremarkable. LIVER, GALLBLADDER, AND BILIARY TREE: The liver is normal in size, shape, and attenuation. No focal hepatic lesion or biliary ductal dilatation is present. The gallbladder is unremarkable with no evidence of radiopaque gallstones, gallbladder wall thickening, or obvious pericholecystic inflammatory changes. The common bile duct remains dilated, measuring up to 1.1 cm in diameter. PANCREAS: Unremarkable. SPLEEN: Unremarkable. ADRENAL GLANDS: Unremarkable. KIDNEYS AND URETERS: The kidneys are normal in size, shape, and attenuation. No hydronephrosis, hydroureter, or calculi seen. No perinephric stranding. There are stable left parapelvic cysts. BLADDER: Unremarkable. GASTROINTESTINAL TRACT: There are postoperative changes status post gastric surgery. The small bowel and colon are normal in caliber. There is a moderate degree of sigmoid colon and descending colon diverticulosis. There is no evidence of acute diverticulitis. The appendix is normal in appearance. ABDOMINAL WALL: No significant hernia is appreciated. LYMPH NODES: No abdominal or pelvic lymphadenopathy. VASCULAR: No abdominal aortic aneurysm. PELVIC VISCERA: The uterus is surgically absent. There is no adnexal mass. OSSEOUS STRUCTURES: There are stable degenerative changes of the spine. CT/CT abdomen pelvis wo IV con IMPRESSION: No acute intra-abdominal/intrapelvic abnormality. There are postoperative changes status post gastric surgery. There is moderate sigmoid colon and descending colon diverticulosis. There is no convincing evidence of acute diverticulitis. Status post cholecystectomy. The common bile duct remains dilated, measuring up to 1.1 cm in diameter. Status post hysterectomy. No adnexal mass. Fleischner guidelines were followed. EXAMINATION: XR CHEST 2 VIEWS CLINICAL INFORMATION: Near-syncope. COMPARISON: Prior chest radiographs, most recently 11/19/2022. TECHNIQUE: Frontal and lateral views of the chest were obtained. FINDINGS: The heart, great vessels, pulmonary vasculature and mediastinum are normal. The lungs show no focal infiltrate, effusion or pneumothorax. There is diminished, mild left base scar/subsegmental atelectasis. There is no acute osseous abnormality. There are upper abdominal surgical clips. XR/XR chest 2V IMPRESSION: 1. No focal infiltrate or congestive heart clear seen. 2. There is mild chronic left base scar/subsegmental atelectasis, improved from prior. Independent Historian Clinical information obtained from an independent historian. History obtained from or confirmed by: EMS External Record Review External record reviewed: Inpatient record, Office record, Outpatient record, Prior outpatient labs, Prior outpatient radiology, Primary care record and Outside ED record Prescription Management I considered prescription management with: Pain Medication and Antibiotic (Vancomycin) Social Determinants Patient?s care significantly limited by Social Determinants of Health including: Other Social Determinant of Health Critical Care Time Critical Care Time Critical Care Time: Yes Total Critical Care Time: 124 Attestation: Critical care time in the amount of 124 minutes has been provided to the patient in terms of direct patient care, frequent reevaluation, consultation with Infectious Disease, review and interpretation of medical data and results, and management of potentially life-threatening conditions. This is all outside of any medical procedures. Discharge Plan Discharge Clinical Impression: Clostridium difficile colitis, Near syncope Clinical Impression: (Ruled Out): Close exposure to 2019-nCoV Patient Disposition: Home, Self-Care Instructions: C. Diff (Clostridioides Difficile) Infection (ED) Additional Instructions: Your labs today are reassuring. You chest xray does not show pneumonia. You tested negative for covid, flu, and rsv. The CT scan of your abdomen did not reveal infection or masses. As discussed, a sample of your stool was obtained and sent to lab for analysis. It came back positive for clostridium difficile which is a bacterial infection within the intestines. This can cause diarrhea. Treatment for this is antibiotics. You were given 1 dose of this via IV in the emergency department today. Vancomycin has been sent to your pharmacy for you to take over the next 10 days. Take this 4 times daily for 10 days. Do not stop taking this early or skip any doses as this may cause infection to return or worsen. Please follow-up with your primary care provider in 1-2 weeks to ensure resolution. Return to the ED with new or worsening symptoms. In the case of emergency call 911. Prescriptions: New vancomycin [Vancocin] 125 mg capsule 125 mg PO QID 10 Days Qty: 40 0RF No Action albuterol sulfate [Ventolin HFA] 90 mcg/actuation HFA aerosol inhaler 2 puff PO Q6H PRN (Reason: for wheezing) 30 Days Qty: 18 6RF meclizine [Dramamine Less Drowsy] 25 mg tablet 25 mg PO TID PRN (Reason: dizziness) Qty: 20 0RF perphenazine 4 mg tablet 4 mg PO BID@1200,2100 pyridoxine (vitamin B6) 100 mg tablet 200 mg PO DAILY@1200 ondansetron 4 mg tablet,disintegrating 4 mg PO Q6H PRN (Reason: nausea and vomiting) Qty: 10 0RF sucralfate 1 gram tablet 1 g PO TID PRN (Reason: upper abdominal pain) Qty: 30 0RF ondansetron 4 mg tablet,disintegrating 4 mg PO Q8H PRN (Reason: nausea and vomiting) Qty: 10 0RF doxepin 75 mg capsule 75 mg PO BEDTIME Adult Multivitamin Gummies 200 mcg tablet,chewable 1 tab PO DAILY estazolam 1 mg tablet 3 mg PO BEDTIME Flovent HFA 220 mcg/actuation HFA aerosol inhaler 2 puff inhalation BID alendronate 70 mg tablet 70 mg PO TU cholecalciferol (vitamin D3) 25 mcg (1,000 unit) tablet 25 mcg PO DAILY fluticasone propion-salmeterol 500-50 mcg/dose blister with device 1 inh inhalation BID 30 Days Qty: 60 3RF omeprazole 40 mg capsule,delayed release(DR/EC) 40 mg PO DAILY@0630 lidocaine 5 % adhesive patch,medicated 1 patch topical DAILY venlafaxine 25 mg tablet 25 mg PO DAILY@1200 magnesium oxide 400 mg (241.3 mg magnesium) tablet 400 mg PO DAILY@1200 levothyroxine 100 mcg tablet 100 mcg PO DAILY@0600 Referrals: [facility] [Primary Care Provider] - Print Language: Ugandan
[2023-05-30 16:25] LABS: Alanine Aminotransferase 31 U/L (0-31); Alkaline Phosphatase 93 U/L (39-117); Anion Gap 11 (12-20); Aspartate Amino Transferase 29 U/L (5-31); Bilirubin Total 0.3 mg/dL (0.0-1.0); Blood Urea Nitrogen 13 mg/dL (9-16); Calcium 9.3 mg/dL (8.4-10.2); Carbon Dioxide 27 mmol/L (22-29); Chloride 106 mmol/L (96-108); Creatinine Clr Calc Pharmacy 82.8; Estimated Glomerular Filt Rate > 60; Glucose Random 90 mg/dL (60-115); Potassium 4.8 mmol/L (3.3-5.1); Sodium 139 mmol/L (135-145); Total Protein 7.7 g/dL (6.5-8.0)
[2023-05-30] MEDS: 0.9 % Sodium Chloride 1,000 ML 999 ML IV (16:50)
[2023-05-30 17:18] LABS: Troponin-I High Sensitivity < 2.7 ng/L (<3.5-17.0)
[2023-05-30 17:34] LABS: CDIFF Internal ctrl Dots and bkg OK (V); CDiff Toxin Negative (Negative)
[2023-05-30 17:46] LABS: CDiff Gene PCR POSITIVE (Negative)
[2023-05-30 18:24] LABS: Lactic Acid 3.3 mmol/L (0.5-2.0)
[2023-05-30] MEDS: vancomycin/NS 2,000 MG/500 ML PLAST..BAG 250 MG IV (19:08)
--- NOTE | 2023-05-30 19:26 | PC.NURSE ---
this rn assumed care of pt, pt assisted to bedside commode, pt had one loose liquid stool. pt denies pain, vss.
[2023-05-30 20:00] LABS: Reflex Lactate? Lactic Acid Added
[2023-05-30 20:15] LABS: Appearance Urine Clear; Color Urine Yellow; Glucose Urine UA Negative (Negative); Leukocyte Esterase Urine Trace (Negative); Nitrite Urine Negative (Negative); UMIC TRIGGER UACC YES; Urine Blood Trace (Negative); Urine Ketones Negative (Negative); Urine Protein Negative (Neg-Trace)
[2023-05-30 20:20] LABS: Bacteria Urine None Seen (None Seen); Hyaline Casts Urine 0-2 /LPF (0-2); RBC Urine 0-2 /HPF (0-2); Squamous Epithelial Cell Urine 0-2 /HPF (0-2); WBC Urine 0-5 /HPF (0-5)
[2023-05-30 20:44] LABS: ~Lactic Acid-LAB USE ONLY 1.2 mmol/L (0.5-2.0)
--- NOTE | 2023-05-30 20:49 | MHC.EDTECH ---
@20:00 patient commode cleaned out, and replaced bag and hat placed to obtain UA. 20:06 urine collected, sent to lab. Commode cleaned out and bag replaced.
[2023-05-30] MEDS: diphenhydrAMINE HCL 50 MG/ML VIAL IVPUSH (21:34)
--- NOTE | 2023-05-30 21:36 | PC.NURSE ---
as vanco infusion was completing, pt noted to have red forehead and itchiness. infusion stopped per Tea GREENBERG, pt medicated with benedryl. vss.
--- NOTE | 2023-05-30 21:51 | MHC.EDTECH ---
@1166 Patient rang her call bed for water. This tech brought her water, then helped her to commode.
--- NOTE | 2023-05-30 21:53 | MHC.EDTECH ---
@[id number] Patient called for help off the commode and back to bed. Patient is in bed, with call smith. Commode cleaned and new bag placed.
--- NOTE | 2023-05-31 00:04 | PC.NURSE ---
pt reports symptoms of itching have subsided
[2023-05-31 00:15] VITALS: BP 131/81; PULSE 68; RESP 18; TEMP 36.8; O2SAT 98
[2023-05-31 10:18] LABS: Adenovirus F 40/41 Not Detected (Not Detect.); Astrovirus Not Detected (Not Detect.); Campylobacter Not Detected (Not Detect.); Cryptosporidium Not Detected (Not Detect.); Cyclospora cayetanensis Not Detected (Not Detect.); E. coli EAEC Not Detected (Not Detect.); E. coli EPEC Not Detected (Not Detect.); E. coli ETEC Not Detected (Not Detect.); E. coli STEC Not Detected (Not Detect.); Entamoeba histolytica Not Detected (Not Detect.); Giardia lamblia Not Detected (Not Detect.); Norovirus GI/GII Not Detected (Not Detect.); Plesiomonas shigelloides Not Detected (Not Detect.); Rotavirus A Not Detected (Not Detect.); Salmonella Not Detected (Not Detect.); Sapovirus Not Detected (Not Detect.); Shigella sp./EIEC Not Detected (Not Detect.); Vibrio Not Detected (Not Detect.); Vibrio Cholerae Not Detected (Not Detect.); Yersinia enterocolitica Not Detected (Not Detect.)
== END 2023-05-31 00:16 | disposition home or self-care (01) ==
PROVIDERS: Physician Assistant Medical; Student in an Organized Health Care Education/Training Program; Emergency Provider Emergency Medicine
DX: A04.72 Enterocolitis due to Clostridium difficile, not specified as recurrent (principal); R55 Syncope and collapse; J45.909 Unspecified asthma, uncomplicated; Z98.84 Bariatric surgery status; Z11.52 Encounter for screening for COVID-19
CPT/HCPCS: 36415; 71046; 74176; 80053; 81001; 83605; 84484; 85025; 87040; 87324; 87493; 87502; 87507; 87635; 93005; 96361; 96365; 96366; 96375; 99284; 99285; J1200; J3370

== ENCOUNTER → 2023-05-30 14:11 | Outpatient (BNV) | payer MEDICAID, SELFPAY | PROVIDERS: Emergency Provider Emergency Medicine; Visit Provider Internal Medicine | DX: R55 Syncope and collapse (principal) | CPT/HCPCS: 93010 ==

== ENCOUNTER 2023-06-01 12:55 | Emergency (ER) | payer MEDICAID, SELFPAY ==
[2023-06-01] VITALS (7 sets, daily range): BP systolic 105–140; BP diastolic 51–82; PULSE 67–80; RESP 16–17; TEMP 36.7–37; O2SAT 96–98; BMI 33.7
--- NOTE | ~2023-06-01 | CT_ITS ---
EXAMINATION: CT ABDOMEN AND PELVIS WITHOUT CONTRAST CLINICAL INFORMATION: C. Dif. Abdomen distention COMPARISON: Portions of a previous 05/30/23 TECHNIQUE: Multidetector volumetric imaging was performed from the superior aspect of the liver through the pubic symphysis. Sagittal and coronal reformatted images were obtained on the technologist's workstation. This CT examination was performed using dose optimization techniques as appropriate, variously including the following: *Automated exposure control *Adjustment of mA and/or kV according to patient size (this includes techniques or standardized protocols for targeted exams where dose is matched to indication/reason for exam; i.e. extremities or head) *Use of iterative reconstruction technique DLP: 723 mGy-cm FINDINGS: LUNG BASES: No suspicious abnormality in the visualized lower chest LIVER, GALLBLADDER, AND BILIARY TREE: I suspect fatty change in the liver. There are surgical clips in the expected region of the gallbladder. The common duct is not optimally visualized but is approximately 0.9 cm. PANCREAS: No suspicious abnormality. SPLEEN: Within normal limits. ADRENAL GLANDS: The right adrenal gland appears within normal limits. The left adrenal gland is not well visualized. KIDNEYS AND URETERS: There are low attenuating areas in the central aspect of each kidney. I suspect parapelvic cysts. BLADDER: The bladder is nearly empty. No large abnormality. GASTROINTESTINAL TRACT: There is segmental wall thickening and luminal narrowing with numerous diverticula the glenoid. No surrounding abscess. There are diverticula elsewhere in the colon. There is a large amount of fecal residue in the colon. The appendix is normal. There is no evidence of high-grade small bowel obstruction. Metallic sutures associated with the stomach. This could be related to bariatric surgery. ABDOMINAL WALL: Evidence of previous surgery. Some of the small bowel loops are intimately associated with the ventral abdominal wall fascia. LYMPH NODES: There are no measurably enlarged abdominal or pelvic lymph nodes. VASCULAR: There is no abdominal aortic aneurysm. PELVIC VISCERA: The uterus is not visualized. No suspicious adnexal mass. OSSEOUS STRUCTURES: No suspicious focal lesion. There is some degenerative change in the spine. CT/CT abdomen pelvis wo IV con IMPRESSION: Evidence of previous gastric surgery. Marked thickening of the wall of the sigmoid with luminal narrowing. There are numerous diverticula in this area. Trace thickening of the peritoneal reflections in the left lower quadrant without evidence of an abscess or bowel obstruction. The appendix is normal. Fleischner guidelines were followed.
--- NOTE | 2023-06-01 13:05 | ECG_ITS ---
Test Reason : abd pain Blood Pressure : / mmHG Vent. Rate : 071 BPM Atrial Rate : 071 BPM P-R Int : 150 ms QRS Dur : 070 ms QT Int : 374 ms P-R-T Axes : 009 008 019 degrees QTc Int : 406 ms Normal sinus rhythm Low voltage QRS Nonspecific T wave abnormality Abnormal ECG When compared with ECG of 30-MAY-2023 14:17, No significant change was found Referred By: Rick Boothe Electronically Signed By:DANTE STANLEY
--- NOTE | 2023-06-01 13:05 | ED_ITS ---
HPI - General Adult General Chief complaint: Nausea/Vomiting/Diarrhea Stated complaint: ABD PAIN,DIARRHEA PER EMS Time Seen by Provider: 06/01/23 15:55 Source: patient Mode of arrival: ambulatory Limitations: no limitations History of Present Illness HPI narrative: 62-year-old female with pertinent medical history of asthma, migraine, hypothyroid, GERD, diverticulosis, colonic polyps, pseudotumor cerebri, gastric bypass who is seen in the emergency department 2 days ago for diarrhea and was diagnosed with C diff patient [facility]opal [facility], patient was started on vancomycin 2 days ago came in today for feeling bloated abdomen, and persistent of diarrhea. No fever, no chills, no nausea, no vomiting. Related Data Home Medications ?Medication ?Instructions ?Recorded ?Confirmed doxepin 75 mg capsule 75 mg PO BEDTIME 11/22/19 03/23/23 multivitamin with minerals-folic 1 tab PO DAILY 11/22/19 03/23/23 acid 200 mcg chewable tablet (Adult Multivitamin Gummies) estazolam 1 mg tablet 3 mg PO BEDTIME 06/06/20 03/23/23 fluticasone propionate 220 2 puff inhalation BID 12/30/20 03/23/23 mcg/actuation HFA aerosol inhaler (Flovent HFA) alendronate 70 mg tablet 70 mg PO TU 06/03/22 03/23/23 cholecalciferol (vitamin D3) 25 25 mcg PO DAILY 06/03/22 03/23/23 mcg (1,000 unit) tablet perphenazine 4 mg tablet 4 mg PO BID@1200,2100 06/04/22 03/23/23 levothyroxine 100 mcg tablet 100 mcg PO DAILY@0600 10/01/22 03/23/23 lidocaine 5 % topical patch 1 patch topical DAILY 10/01/22 03/23/23 magnesium oxide 400 mg (241.3 mg 400 mg PO DAILY@1200 10/01/22 03/23/23 magnesium) tablet omeprazole 40 mg capsule,delayed 40 mg PO DAILY@0630 10/01/22 03/23/23 release venlafaxine 25 mg tablet 25 mg PO DAILY@1200 10/01/22 03/23/23 pyridoxine (vitamin B6) 100 mg 200 mg PO DAILY@1200 11/27/22 03/23/23 tablet Previous Rx's ?Medication ?Instructions ?Recorded meclizine 25 mg tablet (Dramamine 25 mg PO TID PRN dizziness #20 tabs 12/19/20 Less Drowsy) ondansetron 4 mg disintegrating 4 mg PO Q8H PRN nausea and 09/10/22 tablet vomiting #10 tabs albuterol sulfate 90 mcg/actuation 2 puff PO Q6H PRN for wheezing 30 10/29/22 aerosol inhaler (Ventolin HFA) days #18 grams fluticasone 500 mcg-salmeterol 50 1 inh inhalation BID ASTHMA 30 04/07/23 mcg/dose blistr powdr for days #60 ea inhalation ondansetron 4 mg disintegrating 4 mg PO Q6H PRN nausea and 04/16/23 tablet vomiting #10 tabs sucralfate 1 gram tablet 1 g PO TID PRN upper abdominal 04/16/23 pain #30 tabs diphenhydramine HCl 50 mg tablet 50 mg PO Q8H PRN itching #20 tabs 05/30/23 (Benadryl Allergy) vancomycin 125 mg capsule 125 mg PO QID 10 days #40 caps 05/30/23 (Vancocin) Allergies Allergy/AdvReac Type Severity Reaction Status Date / Time nalbuphine [From Nubain] Allergy Severe Anaphylaxis Verified 06/01/23 13:27 Review of Systems 2 Review of Systems: All other systems are reviewed and are negative Constitutional: Reports as per HPI and Reports no additional constitutional complaints Eyes: Reports as per HPI and Reports no additional eye complaints Reports system reviewed and no additional complaints, except as documented Cardiovascular: Reports as per HPI and Reports no additional cardiovascular complaints Respiratory: Reports as per HPI and Reports no additional respiratory complaints Gastrointestinal: Reports as per HPI and Reports no additional gastrointestinal complaints Genitourinary: Reports no additional female genitourinary complaints Musculoskeletal: Reports no additional musculoskeletal complaints Skin/Breast: Reports system reviewed and no additional complaints, except as docu Psychiatric: Reports no additional psychiatric complaints Endocrine: Reports no additional endocrine complaints Hematologic/Lymphatic: Reports no additional hematologic/lymphatic complaints Allergic/Immunologic: Reports no additional allergic/immunologic complaints Reports system reviewed and no additional complaints, except as documented and Reports Abnormal speech present PMFSH Past Medical History Medical History Somnolence, daytime Obesity (BMI 30-39.9) Nausea & vomiting Migraine Syncope Pseudotumor cerebri Kidney calculi Crystal arthropathy Right shoulder injury Kidney tumor COVID-19 vaccine administered Thyroid disease Colon polyp Diverticulosis of colon Bronchial asthma Acid reflux Surgical History History of esophagogastroduodenoscopy (EGD) History of surgery on wrist History of hysterectomy Previous section Hx laparoscopic cholecystectomy Hx of gastric bypass (03/12/15) Hx of colonoscopy Family History Family History Father Heart disease History of open heart surgery Mother Heart disease Social History Social History Household Members: None Household Members Other:: alone Are you a primary intensive care medicine specialist to a significant other at home: No Do you presently have visiting nurse or other home services: No Alcohol intake: never Patient Tobacco Use Status: Former Tobacco user Quit Date: 2007 Tobacco use type: Cigarette Smoked in Last 30 Days: No Use of substances other than those prescribed or required for medical reasons: No Advance Directives: No Advance Directives Information Provided: Yes service: No Current occupational status: disabled Physical Exam ED Vital Signs: Vital Signs - 24 hr 06/01/23 13:26 06/01/23 17:02 06/01/23 17:05 Temperature 98.6 F Pulse Rate 80 67 70 Respiratory Rate 16 Blood Pressure 140/74 H 105/51 L 117/63 Pulse Oximetry 98 Oxygen Delivery Method Room Air 06/01/23 17:06 06/01/23 17:09 Temperature 98.1 F Pulse Rate 76 79 Respiratory Rate 17 Blood Pressure 123/72 127/63 Pulse Oximetry 97 Oxygen Delivery Method BMI result Body Mass Index 33.7 Vital signs have been reviewed and appear to be correct. Blood pressure elevated. Heart rate normal. Respiratory rate normal. Temperature normal. Oxygen saturation normal. Appearance: Alert. Oriented X3. No acute distress. Head: Normal external exam. Normocephalic. Atraumatic. No Benitez signs noted. No raccoon eyes noted Eyes: PERRLA. EOMI. Conjunctiva and sclera normal. Eyelids normal. ENT: TM's Normal. Pharynx normal. Uvula midline. Moist mucous membranes. No trismus noted. No drooling noted. No muffled voice noted. Neck: Normal inspection. Neck supple. FROM. No adenopathy. Thyroid Normal. No meningeal signs. No neck mass noted. CVS: Normal heart rate and rhythm. Heart sound normal. No murmurs noted. Pulses normal throughout. Respiratory: No respiratory distress. Painless inspiration. Breath sounds normal. No wheezes/rales/rhonchi noted. Chest nontender. No accessory muscle usage noted or decreased air movement noted. Abdomen: Soft and nontender. Bowel sounds normal in all 4 quadrants. No distention noted. No organomegaly noted. No visible injury noted. Back: No CVA tenderness. Full range of motion noted. Skin: Skin warm and dry. Normal skin color. Normal skin turgor. No rashes/lesions/lacerations noted. Extremities: No lower extremity edema. Extremities exhibit normal range of motion. Extremities nontender. Neuro: Oriented X 3. Cranial nerve exam: II-XII are grossly intact No motor deficit. No sensory deficit. Reflexes normal. Course Course Course Narrative: RME- 62-year-old female presents for evaluation abdominal pain, diarrhea and ?feeling dehydrated. ? Patient was diagnosed with C diff 2 days ago and is currently taking vancomycin. Plan for labs and a UA Reevaluation(s) Reevaluation #1: Abdominal pain and diarrhea patient is positive for C diff started on vancomycin 2 days ago, CT abdomen pelvis is unremarkable for acute intra- abdominal pathology in particular toxic megacolon, labs are unremarkable patient received a L of normal saline appear well hydrated. Patient was instructed to continue with vancomycin and eat a yogurt or probiotic to help recovery of the normal keila. Patient also was instructed to drink plenty of fluids. Time: 17:59 Medications Administered Discontinued Medications Generic Name Dose Route Start Last Admin Trade Name Freq PRN Reason Stop Dose Admin Sodium Chloride 1,000 mls @ 999 mls/hr 06/01/23 16:09 06/01/23 16:46 Ns IV 06/01/23 17:09 999 mls/hr .Q1H1M ONE Administration Meclizine HCl 25 mg 06/01/23 17:02 06/01/23 17:11 Meclizine Hcl 25 Mg Tablet PO 06/01/23 17:03 25 mg ONCE ONE Administration Medical Decision Making Differential Diagnosis Differential Diagnoses: The differential diagnosis associated with the presentation includes ( Dehydration, electrolyte derangement, severe anemia, colitis, diverticulitis, acute appendicitis, small-bowel obstruction, toxic megacolon, bowel perforation.) Admission/Observation Consideration of admission/observation: Escalation of care including admission/observation considered Lab Data MDM Lab Attestation statement: I reviewed the patient's lab results. 06/01/23 13:22 06/01/23 13:22 Labs: Lab Results 06/01/23 06/01/23 Range/Units 13:22 17:35 WBC 6.1 (4.8-10.8) X10*3/uL RBC 4.60 (4.20-5.50) X10*6/uL Hgb 12.2 (12.0-16.0) g/dl Hct 39.2 (37.0-47.0) % MCV 85.2 (80.0-98.0) fL MCH 26.5 L (27.0-33.0) pg MCHC 31.1 (31.0-35.0) g/dl RDW 14.8 (11.0-16.0) % Plt Count 285 (160-400) X10*3/uL MPV 9.7 (9.4-12.3) fL Immature Gran % (Auto) 0.3 (0.0-0.4) % Neut % (Auto) 63.0 (45-73) % Lymph % (Auto) 21.3 (20-40) % [place] % (Auto) 12.9 H (2-11) % Eos % (Auto) 1.7 (0-4) % Baso % (Auto) 0.8 (0-2) % Lymph # (Auto) 1.3 (1.2-4.9) X10*3/uL [place] # (Auto) 0.8 (0.1-1.2) X10*3/uL Eos # (Auto) 0.1 (0.0-0.4) X10*3/uL Baso # (Auto) 0.1 (0.0-0.2) X10*3/uL Abs Immat Gran (auto) 0.02 (0.00-0.03) X10*3/uL Absolute Neuts (auto) 3.8 (2.0-8.3) x10*3/uL Absolute Nucleated RBC 0.000 (0.0-0.012) X10*3/uL Nucleated RBC % (auto) 0.0 (0.0-0.2) /100WBC Sodium 138 (135-145) mmol/L Potassium 4.8 (3.3-5.1) mmol/L Chloride 103 (96-108) mmol/L Carbon Dioxide 29 (22-29) mmol/L Anion Gap 11 L (12-20) BUN 11 (9-16) mg/dL Creatinine 0.86 (0.5-1.4) mg/dL Estim Creat Clear Calc 68.8 Estimated GFR > 60 Random Glucose 82 (60-115) mg/dL Calcium 9.0 (8.4-10.2) mg/dL Total Bilirubin 0.3 (0.0-1.0) mg/dL AST 29 (5-31) U/L ALT 34 H (0-31) U/L Alkaline Phosphatase 82 (39-117) U/L Total Protein 7.0 (6.5-8.0) g/dL Albumin 3.7 (3.5-5.0) g/dL Lipase 19 (8-78) U/L Urine Color Yellow Urine Appearance Clear Urine pH 7.5 (5.0-9.0) Ur Specific [place] 1.010 (1.005-1.025) Urine Protein Negative (Neg-Trace) mg/dL Urine Glucose (UA) Negative (Negative) mg/dL Urine Ketones Negative (Negative) mg/dL Urine Blood Negative (Negative) Urine Nitrite Negative (Negative) Ur Leukocyte Esterase Negative (Negative) Urine RBC 0-2 (0-2) /HPF Urine WBC 0-5 (0-5) /HPF Ur Squamous Epith Cells 0-2 (0-2) /HPF Urine Bacteria None Seen (None Seen) Hyaline Casts 0-2 (0-2) /LPF Influenza Type A (PCR) NEGATIVE (Negative) Influenza Type B (PCR) NEGATIVE (Negative) RSV RNA Qual (PCR) NEGATIVE (Negative) SARS-CoV-2 RNA (RT-PCR) NEGATIVE (Negative) Discharge Plan Discharge Clinical Impression: C. difficile colitis Patient Disposition: Home, Self-Care Instructions: C. Diff (Clostridioides Difficile) Infection (ED) Additional Instructions: drink plenty of fluids, eat 1 yogurt a day or take probiotic. Prescriptions: No Action albuterol sulfate [Ventolin HFA] 90 mcg/actuation HFA aerosol inhaler 2 puff PO Q6H PRN (Reason: for wheezing) 30 Days Qty: 18 6RF meclizine [Dramamine Less Drowsy] 25 mg tablet 25 mg PO TID PRN (Reason: dizziness) Qty: 20 0RF perphenazine 4 mg tablet 4 mg PO BID@1200,2100 pyridoxine (vitamin B6) 100 mg tablet 200 mg PO DAILY@1200 ondansetron 4 mg tablet,disintegrating 4 mg PO Q6H PRN (Reason: nausea and vomiting) Qty: 10 0RF sucralfate 1 gram tablet 1 g PO TID PRN (Reason: upper abdominal pain) Qty: 30 0RF vancomycin [Vancocin] 125 mg capsule 125 mg PO QID 10 Days Qty: 40 0RF Benadryl Allergy 50 mg tablet 50 mg PO Q8H PRN (Reason: itching) Qty: 20 0RF ondansetron 4 mg tablet,disintegrating 4 mg PO Q8H PRN (Reason: nausea and vomiting) Qty: 10 0RF doxepin 75 mg capsule 75 mg PO BEDTIME Adult Multivitamin Gummies 200 mcg tablet,chewable 1 tab PO DAILY estazolam 1 mg tablet 3 mg PO BEDTIME Flovent HFA 220 mcg/actuation HFA aerosol inhaler 2 puff inhalation BID alendronate 70 mg tablet 70 mg PO TU cholecalciferol (vitamin D3) 25 mcg (1,000 unit) tablet 25 mcg PO DAILY fluticasone propion-salmeterol 500-50 mcg/dose blister with device 1 inh inhalation BID 30 Days Qty: 60 3RF omeprazole 40 mg capsule,delayed release(DR/EC) 40 mg PO DAILY@0630 lidocaine 5 % adhesive patch,medicated 1 patch topical DAILY venlafaxine 25 mg tablet 25 mg PO DAILY@1200 magnesium oxide 400 mg (241.3 mg magnesium) tablet 400 mg PO DAILY@1200 levothyroxine 100 mcg tablet 100 mcg PO DAILY@0600 Referrals: Alla Conner MD [Physician] - Print Language: Bur[place]ian
[2023-06-01 13:30] LABS: MANUAL DIFF FLAG NO
[2023-06-01 13:33] LABS: Basophils Absolute Auto 0.1 X10*3/uL (0.0-0.2); Basophils Percent Auto 0.8 % (0-2); Eosinophils Absolute Auto 0.1 X10*3/uL (0.0-0.4); Eosinophils Percent Auto 1.7 % (0-4); Hematocrit 39.2 % (37.0-47.0); Hemoglobin 12.2 g/dl (12.0-16.0); Imm Gran Abs Auto 0.02 X10*3/uL (0.00-0.03); Imm Gran Pct Auto 0.3 % (0.0-0.4); Lymphocytes Absolute Auto 1.3 X10*3/uL (1.2-4.9); Lymphocytes Percent Auto 21.3 % (20-40); Mean Corpuscular HGB Conc 31.1 g/dl (31.0-35.0); Mean Corpuscular Hemoglobin 26.5 pg (27.0-33.0); Mean Corpuscular Volume 85.2 fL (80.0-98.0); Mean Platelet Volume 9.7 fL (9.4-12.3); Monocytes Absolute Auto 0.8 X10*3/uL (0.1-1.2); Monocytes Percent Auto 12.9 % (2-11); Neutrophils Absolute Auto 3.8 x10*3/uL (2.0-8.3); Platelet Count 285 X10*3/uL (160-400); Red Cell Distribution Width 14.8 % (11.0-16.0); White Blood Count 6.1 X10*3/uL (4.8-10.8)
[2023-06-01 13:47] LABS: Alanine Aminotransferase 34 U/L (0-31); Albumin Level 3.7 g/dL (3.5-5.0); Alkaline Phosphatase 82 U/L (39-117); Anion Gap 11 (12-20); Aspartate Amino Transferase 29 U/L (5-31); Bilirubin Total 0.3 mg/dL (0.0-1.0); Blood Urea Nitrogen 11 mg/dL (9-16); Carbon Dioxide 29 mmol/L (22-29); Chloride 103 mmol/L (96-108); Creatinine Clr Calc Pharmacy 68.8; Estimated Glomerular Filt Rate > 60; Glucose Random 82 mg/dL (60-115); Lipase 19 U/L (8-78); Potassium 4.8 mmol/L (3.3-5.1); Sodium 138 mmol/L (135-145)
[2023-06-01 14:32] LABS: Influenza A PCR NEGATIVE (Negative); Influenza B PCR NEGATIVE (Negative); Resp Syncy Virus RNA Qual PCR NEGATIVE (Negative); SARS COV2 PCR INHOUSE NEGATIVE (Negative)
[2023-06-01] MEDS: 0.9 % Sodium Chloride 1,000 ML 999 ML IV (16:46)
[2023-06-01] MEDS: Meclizine HCl 25 MG TABLET PO (17:11)
--- NOTE | 2023-06-01 17:12 | MHC.EDTECH ---
PATIENT ORTHOSTATICS VITALS TAKEN ,cALL MODI WITHIN PATIENT REACH .
--- NOTE | 2023-06-01 17:31 | PC.NURSE ---
pt requesting meclizine for dizziness. 22G IV placed to Right Hand. fluids hung and pt medicated per apr. pt sts she will give a urine sample but feels as if she will be too dizzy to walk to bathroom. agrees to use bedpan. pt keeps asking for hot food . sts provider said she could get something if results come back ok. call smith within reach. plan of care ongoing.
[2023-06-01 17:49] LABS: Appearance Urine Clear; Color Urine Yellow; Glucose Urine UA Negative (Negative); Leukocyte Esterase Urine Negative (Negative); Nitrite Urine Negative (Negative); PH 7.5 (5.0-9.0); Urine Blood Negative (Negative); Urine Ketones Negative (Negative); Urine Protein Negative (Neg-Trace)
[2023-06-01 17:53] LABS: Bacteria Urine None Seen (None Seen); Hyaline Casts Urine 0-2 /LPF (0-2); RBC Urine 0-2 /HPF (0-2); Squamous Epithelial Cell Urine 0-2 /HPF (0-2); WBC Urine 0-5 /HPF (0-5)
[2023-06-01 19:10] LABS: Troponin-I High Sensitivity < 2.7 ng/L (<3.5-17.0)
== END 2023-06-01 18:08 | disposition home or self-care (01) ==
PROVIDERS: Physician Assistant; Emergency Provider Emergency Medicine; PCP Internal Medicine Geriatric Medicine
DX: A04.72 Enterocolitis due to Clostridium difficile, not specified as recurrent (principal); Z98.84 Bariatric surgery status
CPT/HCPCS: 0241U; 74176; 80053; 81001; 83690; 84484; 85025; 93005; 96360; 99284; 99285

== ENCOUNTER → 2023-06-01 13:05 | Outpatient (BNV) | payer MEDICAID, SELFPAY | PROVIDERS: Visit Provider Internal Medicine | DX: R94.31 Abnormal electrocardiogram [ECG] [EKG] (principal) | CPT/HCPCS: 93010 ==

== ENCOUNTER 2023-06-04 10:42 | Emergency (ER) | payer MEDICAID, SELFPAY ==
--- NOTE | ~2023-06-04 | XR_ITS ---
EXAMINATION: XR ABDOMEN KUB CLINICAL INDICATION: Abdominal pain, recent C. difficile, abdominal bloating and cramping COMPARISON: 06/01/2023 CT TECHNIQUE: AP view of the abdomen. FINDINGS: Mild fecal retention. Nonspecific bowel pattern with few prominent small bowel loops in the left and midabdomen. Solid visceral outlines are obscured. Anastomotic suture line and surgical clips left upper quadrant. Cholecystectomy clips. Phleboliths. Clear lung bases. Degenerative changes. Symphysis pubis sclerosis. Mild bilateral symmetric inferior SI sclerosis. XR/XR KUB IMPRESSION: Nonspecific bowel pattern.
[2023-06-04 10:51] VITALS: BP 116/68; PULSE 88; RESP 18; TEMP 36.6; O2SAT 97; BMI 31.6
[2023-06-04 10:58] VITALS: BP 132/80; PULSE 97; O2SAT 98
--- NOTE | 2023-06-04 11:00 | ED.ABDPAIN ---
HPI - Abdominal Pain General Chief Complaint: Nausea/Vomiting/Diarrhea Stated Complaint: ABD PAIN BLOOD IN STOOL Time Seen by Provider: 06/04/23 10:47 Source: patient, EMS and old records reviewed Mode of arrival: EMS Limitations: no limitations History of Present Illness HPI narrative: 62 yo female with PMH of vertigo, gastric bypass in 2016, chronic intermittent rectal bleeding followed by GI not on thinners, migraines, GERD, asthma dx with c diff colitis on 05/[address] scan then showing no megacolon she was started on 10 days of vancomycin. She was seen again on 05/31 for dehydration labs and CT scan again reassuring. She comes back reporting she saw blood on toilet paper but not in the toilet. She note she still has cramping pain - has only had one BM today. She had a lot yesterday but when asked how much I asked more than 10 and she said no not that much. She is able to drink water and take her medications. She is very anxious. MD elicited complaint: abdominal pain Pertinent past history: other (c diff dx 05/29 - 2 CT scans since dx no megacolon) Onset (ago): day(s) (05/29) Pain Consistency: intermittent Location: diffuse Severity: moderate Quality: cramping Radiation: none Migration to: no migration Exacerbating factors: eating and other (bowel movement) Relieving factors: nothing Context: other (recent c diff dx) Associated symptoms: nausea, diarrhea and other (notes blood on toilet paper) Related Data Home Medications ?Medication ?Instructions ?Recorded ?Confirmed doxepin 75 mg capsule 75 mg PO BEDTIME 11/22/19 03/23/23 multivitamin with minerals-folic 1 tab PO DAILY 11/22/19 03/23/23 acid 200 mcg chewable tablet (Adult Multivitamin Gummies) estazolam 1 mg tablet 3 mg PO BEDTIME 06/06/20 03/23/23 fluticasone propionate 220 2 puff inhalation BID 12/30/20 03/23/23 mcg/actuation HFA aerosol inhaler (Flovent HFA) alendronate 70 mg tablet 70 mg PO TU 06/03/22 03/23/23 cholecalciferol (vitamin D3) 25 25 mcg PO DAILY 06/03/22 03/23/23 mcg (1,000 unit) tablet perphenazine 4 mg tablet 4 mg PO BID@1200,2100 06/04/22 03/23/23 levothyroxine 100 mcg tablet 100 mcg PO DAILY@0600 10/01/22 03/23/23 lidocaine 5 % topical patch 1 patch topical DAILY 10/01/22 03/23/23 magnesium oxide 400 mg (241.3 mg 400 mg PO DAILY@1200 10/01/22 03/23/23 magnesium) tablet omeprazole 40 mg capsule,delayed 40 mg PO DAILY@0630 10/01/22 03/23/23 release venlafaxine 25 mg tablet 25 mg PO DAILY@1200 10/01/22 03/23/23 pyridoxine (vitamin B6) 100 mg 200 mg PO DAILY@1200 11/27/22 03/23/23 tablet Previous Rx's ?Medication ?Instructions ?Recorded meclizine 25 mg tablet (Dramamine 25 mg PO TID PRN dizziness #20 tabs 12/19/20 Less Drowsy) ondansetron 4 mg disintegrating 4 mg PO Q8H PRN nausea and 09/10/22 tablet vomiting #10 tabs albuterol sulfate 90 mcg/actuation 2 puff PO Q6H PRN for wheezing 30 10/29/22 aerosol inhaler (Ventolin HFA) days #18 grams fluticasone 500 mcg-salmeterol 50 1 inh inhalation BID ASTHMA 30 04/07/23 mcg/dose blistr powdr for days #60 ea inhalation ondansetron 4 mg disintegrating 4 mg PO Q6H PRN nausea and 04/16/23 tablet vomiting #10 tabs sucralfate 1 gram tablet 1 g PO TID PRN upper abdominal 04/16/23 pain #30 tabs diphenhydramine HCl 50 mg tablet 50 mg PO Q8H PRN itching #20 tabs 05/30/23 (Benadryl Allergy) vancomycin 125 mg capsule 125 mg PO QID 10 days #40 caps 05/30/23 (Vancocin) morphine 15 mg immediate release 15 mg PO BID PRN pain #5 tabs 06/04/23 tablet Allergies Allergy/AdvReac Type Severity Reaction Status Date / Time nalbuphine [From Nubain] Allergy Severe Anaphylaxis Verified 06/04/23 10:57 Review of Systems Review of Systems Constitutional : No Weight loss, No Fever, No Chills ENT/Mouth : No sore throat, No Rhinorrhea Eyes: No Swelling, No Redness Cardiovascular : No Chest Pain, No SOB, NoEdema Respiratory : No Cough, No Sputum, No Wheezing Gastrointestinal : Positive Nausea, no Vomiting, positive Diarrhea, positive abdominal Pain, No Hematochezia, No Melena Genitourinary : No Dysuria, No Urinary Frequency, No Hematuria, No Urgency Musculoskeletal : No joint pain, No Myalgias, No Joint Swelling Skin : No Skin Lesions, No rash Neuro : No Weakness, No Numbness, No Dizziness, No Headache Psych : No Anxiety/Panic, No Depression All other systems reviewed and are negative. [facility] Past Medical History Attestation statement: The following information was validated with the patient. Source: old records reviewed Medical History Somnolence, daytime Obesity (BMI 30-39.9) Nausea & vomiting Migraine Syncope Pseudotumor cerebri Kidney calculi Crystal arthropathy Right shoulder injury Kidney tumor COVID-19 vaccine administered Thyroid disease Colon polyp Diverticulosis of colon Bronchial asthma Acid reflux Surgical History History of esophagogastroduodenoscopy (EGD) History of surgery on wrist History of hysterectomy Previous section Hx laparoscopic cholecystectomy Hx of gastric bypass (03/12/15) Hx of colonoscopy Family History Family History Father Heart disease History of open heart surgery Mother Heart disease Social History Social History Household Members: None Household Members Other:: alone Are you a primary critical care unit nurse to a significant other at home: No Do you presently have visiting nurse or other home services: No Alcohol intake: never Patient Tobacco Use Status: Former Tobacco user Quit Date: 2007 Tobacco use type: Cigarette Advance Directives: No Advance Directives Information Provided: Yes service: No Current occupational status: disabled Physical Exam ED Vital Signs: Vital Signs - 24 hr 06/04/23 10:51 Temperature 97.8 F Pulse Rate 88 Respiratory Rate 18 Blood Pressure 116/68 Pulse Oximetry 97 Oxygen Delivery Method Room Air BMI result Body Mass Index 31.6 Appearance: Alert. Oriented X3. No acute distress. Eyes: Pupils equal, round and reactive to light. ENT: Pharynx normal. Neck: Normal inspection. Neck supple. CVS: Normal heart rate and rhythm. Pulses normal. Respiratory: No respiratory distress. Breath sounds normal. Abdomen: Soft and mild diffuse ttp no rebound or guarding Rectal: light brown stools no blood no bleeding hemorrhoids Skin: Skin warm and dry. Normal skin color. Normal skin turgor. Extremities: No lower extremity edema. L arm small purple area noted ecchymotic Neuro: Oriented X 3. No motor deficit. No sensory deficit. Medical Decision Making Medical Decision Making [facility] Narrative: 62 yo female with PMH of vertigo, gastric bypass in 2016, chronic intermittent rectal bleeding followed by GI not on thinners, migraines, GERD, asthma dx with c diff colitis on 05/29 here with c/o rectal bleeding but just note don toilet paper along with cramps and what sounds like decreased diarrhea. She is very anxious. Will obtain labs, give zofran and IV morphine. She just had CT scan x 2. Will obtain KUB for abnormal dilated bowels I do not want to radiate her again hx of recurrent purpural rash has seen PCP and derm - no hx of thinners no other hx noted was told to observe it. Differential Diagnosis Differential Diagnoses: The differential diagnosis associated with the presentation includes c diff, chronic rectal bleeding, cramps Admission/Observation Consideration of admission/observation: Escalation of care including admission/observation considered tolerating PO labs again reassuring, no blood noted on stool card feels better stable for DC Lab Data [facility] Lab Attestation statement: I reviewed the patient's lab results. 06/04/23 11:33 06/04/23 11:33 Labs: Lab Results 06/04/23 Range/Units 11:33 WBC 6.2 (4.8-10.8) X10*3/uL RBC 5.03 (4.20-5.50) X10*6/uL Hgb 13.3 (12.0-16.0) g/dl Hct 42.5 (37.0-47.0) % MCV 84.5 (80.0-98.0) fL MCH 26.4 L (27.0-33.0) pg MCHC 31.3 (31.0-35.0) g/dl RDW 14.6 (11.0-16.0) % Plt Count 333 (160-400) X10*3/uL MPV 9.9 (9.4-12.3) fL Immature Gran % (Auto) 0.3 (0.0-0.4) % Neut % (Auto) 61.4 (45-73) % Lymph % (Auto) 24.7 (20-40) % [place] % (Auto) 11.1 H (2-11) % Eos % (Auto) 2.0 (0-4) % Baso % (Auto) 0.5 (0-2) % Lymph # (Auto) 1.5 (1.2-4.9) X10*3/uL [place] # (Auto) 0.7 (0.1-1.2) X10*3/uL Eos # (Auto) 0.1 (0.0-0.4) X10*3/uL Baso # (Auto) 0.0 (0.0-0.2) X10*3/uL Abs Immat Gran (auto) 0.02 (0.00-0.03) X10*3/uL Absolute Neuts (auto) 3.8 (2.0-8.3) x10*3/uL Absolute Nucleated RBC 0.000 (0.0-0.012) X10*3/uL Nucleated RBC % (auto) 0.0 (0.0-0.2) /100WBC Sodium 137 (135-145) mmol/L Potassium 4.7 (3.3-5.1) mmol/L Chloride 104 (96-108) mmol/L Carbon Dioxide 25 (22-29) mmol/L Anion Gap 13 (12-20) BUN 17 H (9-16) mg/dL Creatinine 0.83 (0.5-1.4) mg/dL Estim Creat Clear Calc 74.2 Estimated GFR > 60 Random Glucose 73 (60-115) mg/dL Calcium 9.5 (8.4-10.2) mg/dL Magnesium 2.4 (1.6-2.6) mg/dL Total Bilirubin 0.3 (0.0-1.0) mg/dL Direct Bilirubin 0.1 (0.0-0.5) mg/dL AST 40 H (5-31) U/L ALT 37 H (0-31) U/L Alkaline Phosphatase 94 (39-117) U/L Total Protein 7.8 (6.5-8.0) g/dL Albumin 4.0 (3.5-5.0) g/dL Lipase 16 (8-78) U/L Urine Color Yellow Urine Appearance Clear Urine pH 6.0 (5.0-9.0) Ur Specific [place] <= 1.005 (1.005-1.025) Urine Protein Negative (Neg-Trace) mg/dL Urine Glucose (UA) Negative (Negative) mg/dL Urine Ketones Negative (Negative) mg/dL Urine Blood Trace H (Negative) Urine Nitrite Negative (Negative) Ur Leukocyte Esterase Negative (Negative) Urine RBC 0-2 (0-2) /HPF Urine WBC 0-5 (0-5) /HPF Ur Squamous Epith Cells 0-2 (0-2) /HPF Urine Bacteria None Seen (None Seen) Hyaline Casts 0-2 (0-2) /LPF Stool Occult Blood NEGATIVE (NEGATIVE) Independent Interpretation I performed an independent interpretation of an: Plain X-Ray (no SBO) Radiology Impression Discussion of test interpretation with radiology: I have reviewed the radiologist's reading. Independent Historian Clinical information obtained from an independent historian. History obtained from or confirmed by: EMS External Record Review External record reviewed: Inpatient record and Office record Prescription Management I considered prescription management with: Pain Medication and Other Medications Administered Discontinued Medications Generic Name Dose Route Start Last Admin Trade Name Freq PRN Reason Stop Dose Admin Sodium Chloride 1,000 mls @ 999 mls/hr 06/04/23 11:00 06/04/23 11:35 Ns IV 06/04/23 12:00 999 mls/hr .Q1H1M JESUS Administration Morphine Sulfate 4 mg 06/04/23 10:57 06/04/23 11:35 Morphine Sulfate 4 Mg/Ml Cartridge IVPUSH 06/04/23 10:58 4 mg ONCE ONE Administration Protocol Ondansetron HCl 4 mg 06/04/23 10:57 06/04/23 11:35 Ondansetron Hcl 4 Mg/2 Ml Vial IVPUSH 06/04/23 10:58 4 mg ONCE ONE Administration Critical Care Time Critical Care Time Critical Care Time: Yes Total Critical Care Time: 40 Attestation: IVF, IV morphine with good pain control, review of records I attest to this time spent taking care of the patient Discharge Plan Discharge Clinical Impression: Clostridium difficile infection Patient Disposition: Home, Self-Care Instructions: C. Diff (Clostridioides Difficile) Infection (ED) Additional Instructions: continue your vancomycin. your labs and stool studies were reassuring. no signs of bleeding or anemia. return for fevers, worsening blood in stools or any other complaints monitor the rash on your arm - your platelets are normal follow up with your research support specialist Prescriptions: New morphine 15 mg tablet 15 mg PO BID PRN (Reason: pain) Qty: 5 0RF Rx Instructions: partial fill okay; Partial Fill upon patient request. No Action albuterol sulfate [Ventolin HFA] 90 mcg/actuation HFA aerosol inhaler 2 puff PO Q6H PRN (Reason: for wheezing) 30 Days Qty: 18 6RF meclizine [Dramamine Less Drowsy] 25 mg tablet 25 mg PO TID PRN (Reason: dizziness) Qty: 20 0RF perphenazine 4 mg tablet 4 mg PO BID@1200,2100 pyridoxine (vitamin B6) 100 mg tablet 200 mg PO DAILY@1200 ondansetron 4 mg tablet,disintegrating 4 mg PO Q6H PRN (Reason: nausea and vomiting) Qty: 10 0RF sucralfate 1 gram tablet 1 g PO TID PRN (Reason: upper abdominal pain) Qty: 30 0RF vancomycin [Vancocin] 125 mg capsule 125 mg PO QID 10 Days Qty: 40 0RF Benadryl Allergy 50 mg tablet 50 mg PO Q8H PRN (Reason: itching) Qty: 20 0RF ondansetron 4 mg tablet,disintegrating 4 mg PO Q8H PRN (Reason: nausea and vomiting) Qty: 10 0RF doxepin 75 mg capsule 75 mg PO BEDTIME Adult Multivitamin Gummies 200 mcg tablet,chewable 1 tab PO DAILY estazolam 1 mg tablet 3 mg PO BEDTIME Flovent HFA 220 mcg/actuation HFA aerosol inhaler 2 puff inhalation BID alendronate 70 mg tablet 70 mg PO TU cholecalciferol (vitamin D3) 25 mcg (1,000 unit) tablet 25 mcg PO DAILY fluticasone propion-salmeterol 500-50 mcg/dose blister with device 1 inh inhalation BID 30 Days Qty: 60 3RF omeprazole 40 mg capsule,delayed release(DR/EC) 40 mg PO DAILY@0630 lidocaine 5 % adhesive patch,medicated 1 patch topical DAILY venlafaxine 25 mg tablet 25 mg PO DAILY@1200 magnesium oxide 400 mg (241.3 mg magnesium) tablet 400 mg PO DAILY@1200 levothyroxine 100 mcg tablet 100 mcg PO DAILY@0600 Print Language: Latvian
[2023-06-04] MEDS: Morphine Sulfate 4 MG/ML CARTRIDGE IVPUSH (11:35)
[2023-06-04] MEDS: 0.9 % Sodium Chloride 1,000 ML 999 ML IV (11:35)
[2023-06-04] MEDS: ondansetron HCL 4 MG/2 ML VIAL IVPUSH (11:35)
[2023-06-04 11:44] LABS: MANUAL DIFF FLAG NO
[2023-06-04 11:49] LABS: Basophils Percent Auto 0.5 % (0-2); Eosinophils Absolute Auto 0.1 X10*3/uL (0.0-0.4); Hematocrit 42.5 % (37.0-47.0); Hemoglobin 13.3 g/dl (12.0-16.0); Imm Gran Abs Auto 0.02 X10*3/uL (0.00-0.03); Imm Gran Pct Auto 0.3 % (0.0-0.4); Lymphocytes Absolute Auto 1.5 X10*3/uL (1.2-4.9); Lymphocytes Percent Auto 24.7 % (20-40); Mean Corpuscular HGB Conc 31.3 g/dl (31.0-35.0); Mean Corpuscular Hemoglobin 26.4 pg (27.0-33.0); Mean Corpuscular Volume 84.5 fL (80.0-98.0); Mean Platelet Volume 9.9 fL (9.4-12.3); Monocytes Absolute Auto 0.7 X10*3/uL (0.1-1.2); Monocytes Percent Auto 11.1 % (2-11); Neutrophils Absolute Auto 3.8 x10*3/uL (2.0-8.3); Neutrophils Percent Auto 61.4 % (45-73); Platelet Count 333 X10*3/uL (160-400); Red Blood Count 5.03 X10*6/uL (4.20-5.50); Red Cell Distribution Width 14.6 % (11.0-16.0); White Blood Count 6.2 X10*3/uL (4.8-10.8)
[2023-06-04 11:50] LABS: Appearance Urine Clear; Color Urine Yellow; Glucose Urine UA Negative (Negative); Leukocyte Esterase Urine Negative (Negative); Nitrite Urine Negative (Negative); Specific Gravity - Urine <= 1.005 (1.005-1.025); UMIC TRIGGER UACC YES; Urine Blood Trace (Negative); Urine Ketones Negative (Negative); Urine Protein Negative (Neg-Trace)
[2023-06-04 11:53] LABS: Bacteria Urine None Seen (None Seen); Hyaline Casts Urine 0-2 /LPF (0-2); RBC Urine 0-2 /HPF (0-2); Squamous Epithelial Cell Urine 0-2 /HPF (0-2); WBC Urine 0-5 /HPF (0-5)
[2023-06-04 12:06] LABS: Alanine Aminotransferase 37 U/L (0-31); Alkaline Phosphatase 94 U/L (39-117); Anion Gap 13 (12-20); Aspartate Amino Transferase 40 U/L (5-31); Bilirubin Direct 0.1 mg/dL (0.0-0.5); Bilirubin Total 0.3 mg/dL (0.0-1.0); Blood Urea Nitrogen 17 mg/dL (9-16); Calcium 9.5 mg/dL (8.4-10.2); Carbon Dioxide 25 mmol/L (22-29); Chloride 104 mmol/L (96-108); Creatinine Clr Calc Pharmacy 74.2; Estimated Glomerular Filt Rate > 60; Glucose Random 73 mg/dL (60-115); Lipase 16 U/L (8-78); Magnesium 2.4 mg/dL (1.6-2.6); Potassium 4.7 mmol/L (3.3-5.1); Sodium 137 mmol/L (135-145); Total Protein 7.8 g/dL (6.5-8.0)
[2023-06-04 12:12] LABS: OBS Int Ctl Valid YES; OBS1 NEGATIVE (NEGATIVE)
[2023-06-04 13:36] VITALS: BP 96/61; PULSE 76; RESP 18; TEMP 36.6; O2SAT 99
== END 2023-06-04 13:41 | disposition home or self-care (01) ==
PROVIDERS: Emergency Provider Emergency Medicine; PCP Internal Medicine Geriatric Medicine
DX: A04.72 Enterocolitis due to Clostridium difficile, not specified as recurrent (principal); Z98.84 Bariatric surgery status
CPT/HCPCS: 36415; 74018; 80048; 80076; 81001; 82272; 83690; 83735; 85025; 96361; 96374; 96375; 99283; 99284; J2270; J2405

== ENCOUNTER 2023-06-11 13:25 | Outpatient (REF) | payer MEDICAID, SELFPAY ==
[2023-06-11 15:09] LABS: CDiff Gene PCR NEGATIVE (Negative)
== END 2023-06-11 13:26 | disposition home or self-care (01) ==
LOC: HO.HHCLNP 13:25
PROVIDERS: Visit Provider Nurse Practitioner Family
DX: A49.8 Other bacterial infections of unspecified site (principal)
CPT/HCPCS: 87493

== ENCOUNTER 2023-06-17 13:43 | Emergency (ER) | payer MEDICAID, SELFPAY ==
[2023-06-17 14:04] VITALS: BP 115/78; PULSE 89; RESP 18; TEMP 36.2; O2SAT 99; BMI 32.8
--- NOTE | 2023-06-17 14:06 | ED_ITS ---
HPI - Nausea/Vomiting/Diarrhea General Chief complaint: Nausea/Vomiting/Diarrhea Stated complaint: vomiting diarrhea fever Time Seen by Provider: 06/17/23 16:45 Source: patient Mode of arrival: ambulatory Limitations: no limitations History of Present Illness HPI Narrative: Patient is a 62 old female who presents to the emergency department for feeling unwell over the past 24 hours. She reports a recent history over the month prior of influenza as well as C difficile infection. She has completed course of antibiotics for C diff. She had been feeling well for at least 1 week. She reports yesterday she had an episode of bilious vomiting x1, and a single episode of loose/soft stools described as diarrhea, and tactile fever. Denies any hematochezia or melena associated with this. She had rectal pain with passage of that bowel movement yesterday, denies any rectal pain today. She denies any nausea vomiting abdominal pain or further episodes of diarrhea today. Today she feels generally fatigued however she is tolerating oral intake. She presented to her primary care offices clinic today and she states she was advised to come to the emergency department because she was dehydrated and needed IV fluids. She denies any known sick contacts and denies any URI symptoms, dizziness, lightheadedness, chest pain, shortness of breath, difficulty breathing. Related Data Home Medications ?Medication ?Instructions ?Recorded ?Confirmed doxepin 75 mg capsule 75 mg PO BEDTIME 11/22/19 03/23/23 multivitamin with minerals-folic 1 tab PO DAILY 11/22/19 03/23/23 acid 200 mcg chewable tablet (Adult Multivitamin Gummies) estazolam 1 mg tablet 3 mg PO BEDTIME 06/06/20 03/23/23 fluticasone propionate 220 2 puff inhalation BID 12/30/20 03/23/23 mcg/actuation HFA aerosol inhaler (Flovent HFA) alendronate 70 mg tablet 70 mg PO TU 06/03/22 03/23/23 cholecalciferol (vitamin D3) 25 25 mcg PO DAILY 06/03/22 03/23/23 mcg (1,000 unit) tablet perphenazine 4 mg tablet 4 mg PO BID@1200,2100 06/04/22 03/23/23 levothyroxine 100 mcg tablet 100 mcg PO DAILY@0600 10/01/22 03/23/23 lidocaine 5 % topical patch 1 patch topical DAILY 10/01/22 03/23/23 magnesium oxide 400 mg (241.3 mg 400 mg PO DAILY@1200 10/01/22 03/23/23 magnesium) tablet omeprazole 40 mg capsule,delayed 40 mg PO DAILY@0630 10/01/22 03/23/23 release venlafaxine 25 mg tablet 25 mg PO DAILY@1200 10/01/22 03/23/23 pyridoxine (vitamin B6) 100 mg 200 mg PO DAILY@1200 11/27/22 03/23/23 tablet Previous Rx's ?Medication ?Instructions ?Recorded meclizine 25 mg tablet (Dramamine 25 mg PO TID PRN dizziness #20 tabs 12/19/20 Less Drowsy) ondansetron 4 mg disintegrating 4 mg PO Q8H PRN nausea and 09/10/22 tablet vomiting #10 tabs albuterol sulfate 90 mcg/actuation 2 puff PO Q6H PRN for wheezing 30 10/29/22 aerosol inhaler (Ventolin HFA) days #18 grams fluticasone 500 mcg-salmeterol 50 1 inh inhalation BID ASTHMA 30 04/07/23 mcg/dose blistr powdr for days #60 ea inhalation ondansetron 4 mg disintegrating 4 mg PO Q6H PRN nausea and 04/16/23 tablet vomiting #10 tabs sucralfate 1 gram tablet 1 g PO TID PRN upper abdominal 04/16/23 pain #30 tabs diphenhydramine HCl 50 mg tablet 50 mg PO Q8H PRN itching #20 tabs 05/30/23 (Benadryl Allergy) vancomycin 125 mg capsule 125 mg PO QID 10 days #40 caps 05/30/23 (Vancocin) cetirizine 10 mg tablet 10 mg PO DAILY PRN allergy 06/04/23 symptoms #30 tabs morphine 15 mg immediate release 15 mg PO BID PRN pain #5 tabs 06/04/23 tablet Allergies Allergy/AdvReac Type Severity Reaction Status Date / Time nalbuphine [From Nubain] Allergy Severe Anaphylaxis Verified 06/17/23 14:05 Review of Systems 2 Review of Systems: Yes all other systems are reviewed and are negative PMFSH Past Medical History Attestation statement: The following information was validated with the patient. Source: old records reviewed Medical History Somnolence, daytime Obesity (BMI 30-39.9) Nausea & vomiting Migraine Syncope Pseudotumor cerebri Kidney calculi Crystal arthropathy Right shoulder injury Kidney tumor COVID-19 vaccine administered Thyroid disease Colon polyp Diverticulosis of colon Bronchial asthma Acid reflux Surgical History History of esophagogastroduodenoscopy (EGD) History of surgery on wrist History of hysterectomy Previous section Hx laparoscopic cholecystectomy Hx of gastric bypass (03/12/15) Hx of colonoscopy Family History Family History Father Heart disease History of open heart surgery Mother Heart disease Social History Social History Household Members: None Household Members Other:: alone Are you a primary field care coordinator to a significant other at home: No Do you presently have visiting nurse or other home services: No Alcohol intake: never Patient Tobacco Use Status: Former Tobacco user Quit Date: 2007 Tobacco use type: Cigarette Advance Directives: No Advance Directives Information Provided: No service: No Current occupational status: disabled Physical Exam 2 Vital Signs: Vital Signs: Last Vital Signs Temp 97.1 F 06/17/23 14:04 Pulse 89 06/17/23 14:04 Resp 18 06/17/23 14:04 BP 115/78 06/17/23 14:04 Pulse Ox 99 06/17/23 14:04 O2 Del Method Room Air 06/17/23 14:04 BMI result Body Mass Index 32.8 Appearance: Alert.?Oriented to person, place and time. No acute distress.?Normal affect. Eyes: Pupils equal, round and reactive to light.? ENT: Pharynx normal.?? Neck: Normal inspection.? Neck supple.?? CVS: Heart sounds normal. Normal heart rate and rhythm.? Pulses normal.?? Respiratory: No respiratory distress.? Lung sounds clear to auscultation bilaterally?? Abdomen: Soft and non-tender. Normoactive bowel sounds. No pulsatile mass.?? Skin: Skin warm and dry.? Normal skin color.? Normal skin turgor.?? Extremities: No lower extremity edema.? No calf ttp? Neuro: Moves all extremities spontaneously. Sensation intact bilaterally. CN II- XII intact. No focal neuro deficits. Ambulates with normal steady gait. Course Course Course Narrative: This is a rapid medical exam completed by Cody DUENAS: Additional HPI, ROS, PE not included below will be deferred to primary provider. Complaints of fatigue, shortness of breath, weakness, vomiting for the past 24 hours. One episode of diarrhea and decreased urination. Recent hx of Cdiff and completed antibiotics Started Wegovy on 06/07/23 Medical Decision Making Medical Decision Making [facility] Narrative: Patient is a 62 old female who presents emergency department for evaluation of general fatigue and weakness and subjective feeling of being dehydrated as per HPI. She had a single episode of vomiting and a single episode of diarrhea yesterday, but has had no further gastrointestinal upset or abdominal pain. Her physical examination is benign. She has in no distress. She is drinking a bottle of water and eating crackers at the time of my evaluation. She feels strongly about receiving IV fluids as she feels as though this will significantly improve her generalized fatigue and ?my doctor told me I needed it?. Upon review of her labs obtained prior to my assumption of care she has no leukocytosis, no anemia, no thrombocytopenia. No electrolyte derangement. BUN is elevated when compared to prior levels, creatinine is at baseline, LFTs within normal range nothing to suggest an acute hepatobiliary etiology at this time. Her high sensitive troponin was below detectable limits, and her EKG reveals a normal sinus rhythm with ventricular rate of 81, QTC of 429, no acute ischemic abnormalities, do not suspect ACS as etiology for her generalized fatigue. Urinalysis is without evidence of infection. Patient was advised her symptoms may be secondary to a viral syndrome, recommended repeat COVID-19 testing over the next few days should her symptoms persist. Patient will receive 1 L IV fluids, and anticipate that she will be discharged home following completion and recommend outpatient follow-up with her primary care provider in addition to strict return precautions. Differential Diagnosis Differential Diagnoses: The differential diagnosis associated with the presentation includes (See narrative above) Admission/Observation Consideration of admission/observation: Escalation of care including admission/observation considered (See narrative above) Lab Data [facility] Lab Attestation statement: I reviewed the patient's lab results. (See narrative above) 06/17/23 14:40 05/02/24 14:40 Labs: Lab Results 06/17/23 06/17/23 Range/Units 14:38 14:40 WBC 6.7 (4.8-10.8) X10*3/uL RBC 4.85 (4.20-5.50) X10*6/uL Hgb 13.0 (12.0-16.0) g/dl Hct 41.0 (37.0-47.0) % MCV 84.5 (80.0-98.0) fL MCH 26.8 L (27.0-33.0) pg MCHC 31.7 (31.0-35.0) g/dl RDW 14.6 (11.0-16.0) % Plt Count 289 (160-400) X10*3/uL MPV 9.6 (9.4-12.3) fL Immature Gran % (Auto) 0.1 (0.0-0.4) % Neut % (Auto) 63.4 (45-73) % Lymph % (Auto) 23.2 (20-40) % [place] % (Auto) 10.8 (2-11) % Eos % (Auto) 1.6 (0-4) % Baso % (Auto) 0.9 (0-2) % Lymph # (Auto) 1.6 (1.2-4.9) X10*3/uL [place] # (Auto) 0.7 (0.1-1.2) X10*3/uL Eos # (Auto) 0.1 (0.0-0.4) X10*3/uL Baso # (Auto) 0.1 (0.0-0.2) X10*3/uL Abs Immat Gran (auto) 0.01 (0.00-0.03) X10*3/uL Absolute Neuts (auto) 4.2 (2.0-8.3) x10*3/uL Absolute Nucleated RBC 0.000 (0.0-0.012) X10*3/uL Nucleated RBC % (auto) 0.0 (0.0-0.2) /100WBC Sodium 137 (135-145) mmol/L Potassium 4.0 (3.3-5.1) mmol/L Chloride 100 (96-108) mmol/L Carbon Dioxide 28 (22-29) mmol/L Anion Gap 13 (12-20) BUN 19 H (9-16) mg/dL Creatinine 0.81 (0.5-1.4) mg/dL Estim Creat Clear Calc 72.0 Estimated GFR > 60 Random Glucose 97 (60-115) mg/dL Calcium 9.4 (8.4-10.2) mg/dL Total Bilirubin 0.3 (0.0-1.0) mg/dL AST 24 (5-31) U/L ALT 23 (0-31) U/L Alkaline Phosphatase 85 (39-117) U/L Troponin I High Sens < 2.7 (<3.5-17.0) ng/L Total Protein 7.3 (6.5-8.0) g/dL Albumin 3.8 (3.5-5.0) g/dL Urine Color Yellow Urine Appearance Clear Urine pH 5.5 (5.0-9.0) Ur Specific [place] 1.010 (1.005-1.025) Urine Protein Negative (Neg-Trace) mg/dL Urine Glucose (UA) Negative (Negative) mg/dL Urine Ketones Negative (Negative) mg/dL Urine Blood Trace H (Negative) Urine Nitrite Negative (Negative) Ur Leukocyte Esterase Negative (Negative) Urine RBC 0-2 (0-2) /HPF Urine WBC 0-5 (0-5) /HPF Ur Squamous Epith Cells 0-2 (0-2) /HPF Urine Bacteria None Seen (None Seen) Hyaline Casts 0-2 (0-2) /LPF Influenza Type A (PCR) NEGATIVE (Negative) Influenza Type B (PCR) NEGATIVE (Negative) RSV RNA Qual (PCR) NEGATIVE (Negative) SARS-CoV-2 RNA (RT-PCR) NEGATIVE (Negative) Independent Historian Clinical information obtained from an independent historian. History obtained from or confirmed by: Friend External Record Review External record reviewed: Inpatient record and Outpatient record Tests considered The following testing was considered but not selected: Abdominal examination benign, no further vomiting/diarrhea, no indication for radiographic imaging of the abdomen/pelvis Prescription Management I considered prescription management with: Pain Medication (Acetaminophen as needed) Discharge Plan Discharge Clinical Impression: Vomiting and diarrhea Patient Disposition: Home, Self-Care Instructions: Acute Nausea and Vomiting (ED), Acute Diarrhea (ED) Additional Instructions: Your testing today was all very reassuring. You received IV fluids while in the emergency department. Introduce a bland diet including crackers, bananas, rice, soup, toast, and boiled vegetables. This may progress to plain baked or boiled chicken or turkey. Avoid dairy products or foods high in fat or grease. Please follow-up with your primary care provider. Return back to emergency department any new or worsening symptoms or concerns. Prescriptions: No Action albuterol sulfate [Ventolin HFA] 90 mcg/actuation HFA aerosol inhaler 2 puff PO Q6H PRN (Reason: for wheezing) 30 Days Qty: 18 6RF meclizine [Dramamine Less Drowsy] 25 mg tablet 25 mg PO TID PRN (Reason: dizziness) Qty: 20 0RF perphenazine 4 mg tablet 4 mg PO BID@1200,2100 pyridoxine (vitamin B6) 100 mg tablet 200 mg PO DAILY@1200 ondansetron 4 mg tablet,disintegrating 4 mg PO Q6H PRN (Reason: nausea and vomiting) Qty: 10 0RF sucralfate 1 gram tablet 1 g PO TID PRN (Reason: upper abdominal pain) Qty: 30 0RF vancomycin [Vancocin] 125 mg capsule 125 mg PO QID 10 Days Qty: 40 0RF Benadryl Allergy 50 mg tablet 50 mg PO Q8H PRN (Reason: itching) Qty: 20 0RF ondansetron 4 mg tablet,disintegrating 4 mg PO Q8H PRN (Reason: nausea and vomiting) Qty: 10 0RF morphine 15 mg tablet 15 mg PO BID PRN (Reason: pain) Qty: 5 0RF Rx Instructions: partial fill okay; Partial Fill upon patient request. cetirizine 10 mg tablet 10 mg PO DAILY PRN (Reason: allergy symptoms) Qty: 30 0RF doxepin 75 mg capsule 75 mg PO BEDTIME Adult Multivitamin Gummies 200 mcg tablet,chewable 1 tab PO DAILY estazolam 1 mg tablet 3 mg PO BEDTIME Flovent HFA 220 mcg/actuation HFA aerosol inhaler 2 puff inhalation BID alendronate 70 mg tablet 70 mg PO TU cholecalciferol (vitamin D3) 25 mcg (1,000 unit) tablet 25 mcg PO DAILY fluticasone propion-salmeterol 500-50 mcg/dose blister with device 1 inh inhalation BID 30 Days Qty: 60 3RF omeprazole 40 mg capsule,delayed release(DR/EC) 40 mg PO DAILY@0630 lidocaine 5 % adhesive patch,medicated 1 patch topical DAILY venlafaxine 25 mg tablet 25 mg PO DAILY@1200 magnesium oxide 400 mg (241.3 mg magnesium) tablet 400 mg PO DAILY@1200 levothyroxine 100 mcg tablet 100 mcg PO DAILY@0600 Referrals: Name,MD Gregg [Primary Care Provider] - Print Language: Turkmen
--- NOTE | 2023-06-17 14:08 | ECG_ITS ---
Test Reason : weakness Blood Pressure : / mmHG Vent. Rate : 081 BPM Atrial Rate : 081 BPM P-R Int : 164 ms QRS Dur : 076 ms QT Int : 370 ms P-R-T Axes : 030 -03 000 degrees QTc Int : 429 ms Normal sinus rhythm Nonspecific T wave abnormality Abnormal ECG When compared with ECG of 01-JUN-2023 13:16, No significant change was found Referred By: Tiana Seals Electronically Signed By:DANTE STANLEY
[2023-06-17 14:45] LABS: MANUAL DIFF FLAG NO
[2023-06-17 14:46] LABS: Basophils Absolute Auto 0.1 X10*3/uL (0.0-0.2); Basophils Percent Auto 0.9 % (0-2); Eosinophils Absolute Auto 0.1 X10*3/uL (0.0-0.4); Eosinophils Percent Auto 1.6 % (0-4); Imm Gran Abs Auto 0.01 X10*3/uL (0.00-0.03); Imm Gran Pct Auto 0.1 % (0.0-0.4); Lymphocytes Absolute Auto 1.6 X10*3/uL (1.2-4.9); Lymphocytes Percent Auto 23.2 % (20-40); Mean Corpuscular HGB Conc 31.7 g/dl (31.0-35.0); Mean Corpuscular Hemoglobin 26.8 pg (27.0-33.0); Mean Corpuscular Volume 84.5 fL (80.0-98.0); Mean Platelet Volume 9.6 fL (9.4-12.3); Monocytes Absolute Auto 0.7 X10*3/uL (0.1-1.2); Monocytes Percent Auto 10.8 % (2-11); Neutrophils Absolute Auto 4.2 x10*3/uL (2.0-8.3); Neutrophils Percent Auto 63.4 % (45-73); Platelet Count 289 X10*3/uL (160-400); Red Blood Count 4.85 X10*6/uL (4.20-5.50); Red Cell Distribution Width 14.6 % (11.0-16.0); White Blood Count 6.7 X10*3/uL (4.8-10.8)
[2023-06-17 14:53] LABS: Appearance Urine Clear; Color Urine Yellow; Glucose Urine UA Negative (Negative); Leukocyte Esterase Urine Negative (Negative); Nitrite Urine Negative (Negative); PH 5.5 (5.0-9.0); UMIC TRIGGER UACC YES; Urine Blood Trace (Negative); Urine Ketones Negative (Negative); Urine Protein Negative (Neg-Trace)
[2023-06-17 14:55] LABS: Bacteria Urine None Seen (None Seen); Hyaline Casts Urine 0-2 /LPF (0-2); RBC Urine 0-2 /HPF (0-2); Squamous Epithelial Cell Urine 0-2 /HPF (0-2); WBC Urine 0-5 /HPF (0-5)
[2023-06-17 15:00] LABS: Alanine Aminotransferase 23 U/L (0-31); Albumin Level 3.8 g/dL (3.5-5.0); Alkaline Phosphatase 85 U/L (39-117); Anion Gap 13 (12-20); Aspartate Amino Transferase 24 U/L (5-31); Bilirubin Total 0.3 mg/dL (0.0-1.0); Blood Urea Nitrogen 19 mg/dL (9-16); Calcium 9.4 mg/dL (8.4-10.2); Carbon Dioxide 28 mmol/L (22-29); Chloride 100 mmol/L (96-108); Estimated Glomerular Filt Rate > 60; Glucose Random 97 mg/dL (60-115); Sodium 137 mmol/L (135-145); Total Protein 7.3 g/dL (6.5-8.0)
[2023-06-17 15:10] LABS: Troponin-I High Sensitivity < 2.7 ng/L (<3.5-17.0)
[2023-06-17 15:28] LABS: Influenza A PCR NEGATIVE (Negative); Influenza B PCR NEGATIVE (Negative); Resp Syncy Virus RNA Qual PCR NEGATIVE (Negative); SARS COV2 PCR INHOUSE NEGATIVE (Negative)
[2023-06-17 16:55] VITALS: BP 117/79; PULSE 87; RESP 20; TEMP 36.7; O2SAT 100
[2023-06-17] MEDS: 0.9 % Sodium Chloride 1,000 ML 999 ML IV (17:25)
[2023-06-17 19:09] VITALS: BP 134/78; PULSE 76; RESP 18; TEMP 36.7; O2SAT 99
== END 2023-06-17 19:10 | disposition home or self-care (01) ==
PROVIDERS: Nurse Practitioner Family; Emergency Provider Emergency Medicine; PCP Internal Medicine Geriatric Medicine
DX: R11.2 Nausea with vomiting, unspecified (principal); R50.9 Fever, unspecified; R93.1 Abnormal findings on diagnostic imaging of heart and coronary circulation; R53.83 Other fatigue; Z11.52 Encounter for screening for COVID-19; Z20.822 Contact with and (suspected) exposure to COVID-19; Z79.899 Other long term (current) drug therapy
CPT/HCPCS: 0241U; 36415; 80053; 81001; 84484; 85025; 93005; 96360; 99284

== ENCOUNTER → 2023-06-17 14:08 | Outpatient (BNV) | payer MEDICAID, SELFPAY | PROVIDERS: Emergency Provider Emergency Medicine; PCP Internal Medicine Geriatric Medicine; Visit Provider Internal Medicine | DX: R94.31 Abnormal electrocardiogram [ECG] [EKG] (principal); M62.81 Muscle weakness (generalized) | CPT/HCPCS: 93010 ==

== ENCOUNTER 2023-07-09 18:32 | Outpatient (REF) | payer MEDICAID, SELFPAY | END 2023-07-09 18:33 | disposition home or self-care (01) | LOC: HO.HHCLNP 18:32 | PROVIDERS: Visit Provider Emergency Medicine | DX: M54.50 Low back pain, unspecified (principal) | CPT/HCPCS: 87086 ==

== ENCOUNTER 2023-07-27 09:59 | Outpatient (AMB) | payer MEDICAID, SELFPAY ==
--- NOTE | 2023-07-27 10:00 | MHC.OFFVIS ---
Vital Signs 07/27/23 10:11 Height 5 ft 3 in Weight 178 lb BMI 31.5 BP 117/77 Blood Pressure Location Rt brachial Position Sitting Pulse 90 Intake Visit Reasons: RUQ pain Intake Note: Patient referred by Dr. Kunz for RUQ pain. Present for yrs. Hx of gastric bypass 03-12-2015. Patient c/o: bulging on rt abd. Pain that spreads to rt lower back. Marine Operations Coordinator Required: Yes Marine Operations Coordinator Name: Sarah OATES Accompanied by: Self / Same As Patient Allergies nalbuphine [From Nubain] Allergy (Severe, Verified 07/27/23 10:07) Anaphylaxis HPI Comments Details: Patient presents for evaluation of soft tissue mass vomiting or abdominal wall and right upper quadrant, and right lower back. She has had these for several years time. They are increasing in size, becoming more symptomatic. She would like to have them removed. Chart was reviewed patient evaluated. Patient has had several prior abdominal procedures including gastric bypass and gallbladder. Patient has an extensive past medical history PFSH Medical History Somnolence, daytime Obesity (BMI 30-39.9) Nausea & vomiting Migraine Syncope Pseudotumor cerebri Kidney calculi Crystal arthropathy Right shoulder injury Kidney tumor COVID-19 vaccine administered Thyroid disease Colon polyp Diverticulosis of colon Bronchial asthma Acid reflux Surgical History History of esophagogastroduodenoscopy (EGD) History of surgery on wrist History of hysterectomy Previous section Hx laparoscopic cholecystectomy Hx of gastric bypass (03/12/15) Hx of colonoscopy Family History Father Heart disease History of open heart surgery Mother Heart disease Social History Household Members: None Household Members Other:: alone Are you a primary career technology teacher to a significant other at home: No Do you presently have visiting nurse or other home services: No Alcohol intake: never Patient Tobacco Use Status: Former Tobacco user Tobacco use type: Cigarette service: No Current occupational status: disabled Physical Exam Vital Signs: Last Vital Signs Pulse 90 07/27/23 10:11 BP 117/77 07/27/23 10:11 BMI result Body Mass Index 31.5 Chest Other: Chest breath sounds bilaterally, HS 1 in 2 GI Other: Abdomen corpulent, soft. Wesley incision. Benign. Patient has approximately 5 x 3 cm right upper quadrant subcutaneous mass consistent with a large lipoma. Back/Spine/Pelvis Other: Patient has a lower back mass measuring approximately 3 x 4 cm consistent with a lipoma. Assessment & Plan Assessment & Plan (1) Lipoma of back: Code(s): D17.1 - Benign lipomatous neoplasm of skin and subcutaneous tissue of trunk Category: Surgical (2) Lipoma of abdominal wall: Code(s): D17.1 - Benign lipomatous neoplasm of skin and subcutaneous tissue of trunk Category: Surgical Plan Risks, benefits, alternatives of excision of these 2 soft tissue mass/lipomas were reviewed with the patient and included but not limited to bleeding, infection, recurrence, numbness, pain, scarring, seroma formation, wound dehiscence and the patient wishes to proceed. All questions answered. Arrangements were made for this. Coding Level of Care Code New Pt Level 5 (66747) Diagnoses Lipoma of back D17.1 Lipoma of abdominal wall D17.1
[2023-07-27 10:11] VITALS: BP 117/77; PULSE 90; BMI 31.5
== END 2023-07-27 10:37 | disposition home or self-care (01) ==
PROVIDERS: PCP Internal Medicine Geriatric Medicine; Referring Provider Emergency Medicine; Visit Provider Surgery
DX: D17.1 Benign lipomatous neoplasm of skin and subcutaneous tissue of trunk (principal)
CPT/HCPCS: 99204

== ENCOUNTER → 2023-07-27 09:59 | Outpatient (BNVA) | payer MEDICAID, SELFPAY | PROVIDERS: PCP Internal Medicine Geriatric Medicine; Referring Provider Emergency Medicine; Visit Provider Surgery | DX: D17.1 Benign lipomatous neoplasm of skin and subcutaneous tissue of trunk (principal) | CPT/HCPCS: 99202 ==

== ENCOUNTER 2023-08-11 09:50 | Outpatient (AMB) | payer MEDICAID, SELFPAY ==
[2023-08-11 09:56] VITALS: BP 110/78; PULSE 91; O2SAT 100; BMI 30.8
--- NOTE | 2023-08-11 09:56 | A.OFFVIS_ITS ---
Vital Signs 08/11/23 09:56 Height 5 ft 3 in Weight 174 lb BMI 30.8 BP 110/78 Blood Pressure Location Lt brachial Position Sitting Pulse 91 Pulse Oximetry (%) 100 Oxygen Delivery Method Room Air Intake Visit Reasons: Asthma Intake Note: pt is here for follow up and states she had covid and bad asthma in June, and today she feels like her lungs are burning like she inhaled smoke from a fire. pt is having a surgery by in August, Endocrinology Specialist Required: No Allergies nalbuphine [From Nubain] Allergy (Severe, Verified 08/11/23 10:25) Anaphylaxis Medication List - Last Reconciled 08/11/23 by Delgado Manriquez MD albuterol sulfate 90 mcg/actuation (Ventolin HFA) 2 puffs PO Q6H PRN 30 days alendronate 70 mg PO TU cetirizine 10 mg PO DAILY PRN cholecalciferol (vitamin D3) 25 mcg PO DAILY doxepin 75 mg PO BEDTIME estazolam 3 mg PO BEDTIME fluticasone propion-salmeterol 500-50 mcg/dose 1 inh inhalation BID 30 days levothyroxine 100 mcg PO DAILY@0600 lidocaine 5% 1 patch topical DAILY magnesium oxide 400 mg PO DAILY@1200 meclizine (Dramamine Less Drowsy) 25 mg PO TID PRN omeprazole 40 mg PO DAILY@0630 ondansetron 4 mg PO Q8H PRN ondansetron 4 mg PO Q6H PRN perphenazine 4 mg PO BID@1200,2100 pyridoxine (vitamin B6) 200 mg PO DAILY@1200 semaglutide (weight loss) (Wegovy) mg subcut sucralfate 1 g PO TID PRN venlafaxine 25 mg PO DAILY@1200 Do you need a note to return to daycare/school/sports/work: No HPI HPI Asthma: Details: This 62 years old very pleasant female comes after 4 months for regular follow- up. She has longstanding history of bronchial asthma which remains under good control. However since June of this year when she had COVID infection, she continues to have a feeling of being more congested. She also has more frequent bouts of cough. She is quite concerned about a mass in the right upper quadrant abdominal wall. Has seen Dr. Smith, the general surgeon, who diagnosed her to have lipoma of the abdominal wall and plans to excise it surgically. The patient is very concerned, and wanted me to explained to her. [facility] Medical History Somnolence, daytime Obesity (BMI 30-39.9) Nausea & vomiting Migraine Syncope Pseudotumor cerebri Kidney calculi Crystal arthropathy Right shoulder injury Kidney tumor COVID-19 vaccine administered Thyroid disease Colon polyp Diverticulosis of colon Bronchial asthma Acid reflux Surgical History History of esophagogastroduodenoscopy (EGD) History of surgery on wrist History of hysterectomy Previous section Hx laparoscopic cholecystectomy Hx of gastric bypass (03/12/15) Hx of colonoscopy Family History Father Heart disease History of open heart surgery Mother Heart disease Social History Household Members: None Household Members Other:: alone Are you a primary intensive care specialist to a significant other at home: No Do you presently have visiting nurse or other home services: No Alcohol intake: never Patient Tobacco Use Status: Former Tobacco user Tobacco use type: Cigarette service: No Current occupational status: disabled Review of Systems Const All systems reviewed & are unremarkable except as noted in HPI and below Eyes Reports no additional complaints ENT Reports vertigo (Recent onset, improving with medicine) and Reports nasal congestion (Mild intermittent) Card Reports no additional complaints Resp Reports as per HPI GI Reports heartburn (Controlled with medicine) Reports no additional complaints Musc Reports no additional complaints Skin/Breast Reports system reviewed and no additional complaints, except as documented Neuro Reports vertigo (Recent onset, improving with medicine) Psych Reports depression Physical Exam Vital Signs: Last Vital Signs Pulse 91 08/11/23 09:56 BP 110/78 08/11/23 09:56 Pulse Ox 100 08/11/23 09:56 Oxygen Delivery Method Room Air 08/11/23 09:56 BMI result Body Mass Index 30.8 Const Other: TELE VISIT. PHYSICAL EXAM NOT ACCOMPLISHED. General: healthy appearing, comfortable, no acute distress, alert and awake Orientation/consciousness: patient oriented x3 HEENT Head: Yes normal to inspection General nose exam: No nasal polyps present and No nasal discharge present Face and sinus: Yes sinuses nontender Mouth: oropharynx normal (Mallampati class 2) Throat: Yes posterior oropharynx normal Eyes General: appearance normal, both eyes and all related structures Neck Neck: Yes normal visual inspection, Yes no lymphadenopathy, Yes trachea midline, Yes no JVD and Yes other (Neck size 14-1/2 inch) Thyroid: Thyroid normal Chest Chest palpation & inspection: normal inspection of the chest, normal palpation of entire chest wall and no tenderness Resp Other: Percussion note is resonant, breath sounds slightly distant, No wheezes or rhonchi are heard today. Cardio Palpation: normal PMI Rate: regular rate Rhythm: regular rhythm Heart sounds: no gallops and no murmurs GI Palpation (GI): Soft to palpation, nontender, No hepatosplenomegaly present and no masses Auscultation: normal bowel sounds Back/Spine/Pelvis Thoracic/Lumbar Spine: thoracic and lumbar spine normal to inspection Skin General skin exam: no rashes or lesions noted Neuro General: patient oriented x3 and no focal motor deficits Cranial nerves: Yes CN's II-XII intact bilaterally Extrem General: Yes normal to inspection, Yes no clubbing, cyanosis or edema and Yes no calf tenderness Psych Appearance: grossly normal and well kempt Speech and movement: Normal speech and movement present Assessment & Plan Assessment & Plan (1) Obesity (BMI 30-39.9): Comment: PATIENT HAS HISTORY OF GROSS OBESITY, HAS HAD GASTRIC SLEEVE SURGERY IN THE PAST, REMAINS MODERATELY OBESE. Code(s): E66.9 - Obesity, unspecified Category: Medical Plan: ADVISED TO CUT DOWN THE CALORIES INTAKE AND. WALK. DAILY MUCH SHE CAN (2) Bronchial asthma: Comment: CHRONIC MILD TO MODERATE BRONCHIAL ASTHMA, WITH INTERMITTENT FLARE UPS DUE TO SEASONAL CHANGE. PRESENTLY SHE IS HAVING SOMEWHAT INCREASED COUGH AND WHEEZING SINCE SHE HAD COVID INFECTION IN JUNE OF THIS YEAR. ON AUSCULTATION THE LUNGS ARE CLEAR. Code(s): J45.909 - Unspecified asthma, uncomplicated Category: Medical Plan: ADVAIR , DOES DECREASED TO 250-50, 1 INHALATION B.I.D.. ALBUTEROL HFA ( VENTOLIN ) 2 PUFFS Q 6 HOURS P.R.N. WHEN OUTDOORS. ALBUTEROL SOLUTION IN THE NEBULIZER Q 6 HOURS P.R.N. WHEN AT HOME. (3) Lipoma of abdominal wall: Comment: PATIENT HAS A LUMPY MASS IN THE ABDOMINAL WALL AT RIGHT UPPER QUADRANT, LEVEL SHE HAS BEEN SEEN BY DR. SMITH WHO PLANS TO REMOVE IT SURGICALLY. Code(s): D17.1 - Benign lipomatous neoplasm of skin and subcutaneous tissue of trunk Category: Surgical Plan: PATIENT NEEDED MORE EXPLANATION WHICH I HAVE PROVIDED MUCH I COULD. Coding Level of Care Code Est Pt Level 3 (01130) Diagnoses Obesity (BMI 30-39.9) E66.9 Bronchial asthma J45.909 Lipoma of abdominal wall D17.1
== END 2023-08-11 10:19 | disposition home or self-care (01) ==
PROVIDERS: PCP Internal Medicine Geriatric Medicine; Referring Provider Internal Medicine Geriatric Medicine; Visit Provider Internal Medicine
DX: E66.9 Obesity, unspecified (principal); J45.909 Unspecified asthma, uncomplicated; D17.1 Benign lipomatous neoplasm of skin and subcutaneous tissue of trunk
CPT/HCPCS: 99213

== ENCOUNTER → 2023-08-11 09:50 | Outpatient (BNVA) | payer MEDICAID, SELFPAY | PROVIDERS: PCP Internal Medicine Geriatric Medicine; Visit Provider Internal Medicine | DX: J45.909 Unspecified asthma, uncomplicated (principal); E66.9 Obesity, unspecified; D17.1 Benign lipomatous neoplasm of skin and subcutaneous tissue of trunk; Z68.30 Body mass index [BMI] 30.0-30.9, adult | CPT/HCPCS: 99212 ==

== ENCOUNTER 2023-08-24 09:03 | Outpatient (REF) | payer MEDICAID, SELFPAY ==
[2023-08-24 11:21] LABS: MANUAL DIFF FLAG NO
[2023-08-24 11:37] LABS: Basophils Percent Auto 0.8 % (0-2); Eosinophils Absolute Auto 0.1 X10*3/uL (0.0-0.4); Hematocrit 42.6 % (37.0-47.0); Imm Gran Abs Auto 0.01 X10*3/uL (0.00-0.03); Imm Gran Pct Auto 0.2 % (0.0-0.4); Lymphocytes Absolute Auto 1.5 X10*3/uL (1.2-4.9); Lymphocytes Percent Auto 29.4 % (20-40); Mean Corpuscular HGB Conc 30.5 g/dl (31.0-35.0); Mean Corpuscular Hemoglobin 25.5 pg (27.0-33.0); Mean Corpuscular Volume 83.7 fL (80.0-98.0); Mean Platelet Volume 10.7 fL (9.4-12.3); Monocytes Absolute Auto 0.6 X10*3/uL (0.1-1.2); Monocytes Percent Auto 12.4 % (2-11); Neutrophils Absolute Auto 2.8 x10*3/uL (2.0-8.3); Neutrophils Percent Auto 55.2 % (45-73); Platelet Count 317 X10*3/uL (160-400); Red Blood Count 5.09 X10*6/uL (4.20-5.50); Red Cell Distribution Width 15.9 % (11.0-16.0)
[2023-08-24 11:48] LABS: Prothrombin Time 11.6 SEC (11.1-13.3)
[2023-08-24 11:54] LABS: Alanine Aminotransferase 21 U/L (0-31); Albumin Level 3.9 g/dL (3.5-5.0); Alkaline Phosphatase 73 U/L (39-117); Anion Gap 11 (12-20); Aspartate Amino Transferase 25 U/L (5-31); Bilirubin Total 0.4 mg/dL (0.0-1.0); Blood Urea Nitrogen 19 mg/dL (9-16); Calcium 9.3 mg/dL (8.4-10.2); Carbon Dioxide 29 mmol/L (22-29); Chloride 105 mmol/L (96-108); Estimated Glomerular Filt Rate > 60; Glucose Random 76 mg/dL (60-115); Potassium 4.5 mmol/L (3.3-5.1); Sodium 140 mmol/L (135-145); Total Protein 7.2 g/dL (6.5-8.0)
== END 2023-08-24 09:04 | disposition home or self-care (01) ==
LOC: HO.HHCL 09:03
PROVIDERS: Physician Assistant; Visit Provider Internal Medicine Medical Oncology
DX: R23.3 Spontaneous ecchymoses (principal)
CPT/HCPCS: 36415; 80053; 85025; 85610

== ENCOUNTER 2023-08-24 11:45 | Emergency (ER) | payer MEDICAID, SELFPAY ==
--- NOTE | ~2023-08-24 | CT_ITS ---
EXAMINATION: CT ABDOMEN AND PELVIS WITHOUT CONTRAST CLINICAL INFORMATION: Left back and buttock pain radiating to right lower extremity constipation and hematuria. COMPARISON: CT abdomen and pelvis 06/01/2023. TECHNIQUE: Multidetector volumetric imaging was performed from the superior aspect of the liver through the pubic symphysis. Sagittal and coronal reformatted images were obtained on the technologist's workstation. This CT examination was performed using dose optimization techniques as appropriate, variously including the following: *Automated exposure control *Adjustment of mA and/or kV according to patient size (this includes techniques or standardized protocols for targeted exams where dose is matched to indication/reason for exam; i.e. extremities or head) *Use of iterative reconstruction technique DLP: 523 mGy-cm FINDINGS: LUNG BASES: The visualized lung bases are unremarkable. The heart size is normal. No pericardial or pleural effusion seen. LIVER, GALLBLADDER, AND BILIARY TREE: The liver is normal in size, shape, and attenuation. No focal hepatic lesion or biliary ductal dilatation is present. The gallbladder has been surgically removed. PANCREAS: Unremarkable. SPLEEN: Unremarkable. ADRENAL GLANDS: Unremarkable. KIDNEYS AND URETERS: The kidneys are normal in size, shape, and attenuation. No hydronephrosis, hydroureter, or calculi seen. No perinephric stranding. BLADDER: The bladder is minimally distended but no radiopaque calculi or wall thickening seen. GASTROINTESTINAL TRACT: There is diffuse colonic diverticulosis with mild mural thickening of the vertical segment of sigmoid colon but no pericolic fat stranding seen. There is scattered stool and diverticula seen throughout the rest of the colon. The small bowel loops are normal caliber. Appendix is not visualized with certainty. There is gastric bypass surgical changes. No hiatal hernia seen. There is no free air or free fluid. No inflammatory process seen. ABDOMINAL WALL: Suspect focal lipomatous collection along the right anterolateral abdominal wall. It appears slightly prominent compared to left abdomen. LYMPH NODES: Normal. VASCULAR: The abdominal aorta is of normal caliber. PELVIC VISCERA: Unremarkable. OSSEOUS STRUCTURES: No aggressive lytic or sclerotic process seen. There is L3-L4, L4-L5 and L5-S1 facet arthropathy. CT/CT abdomen pelvis wo IV con IMPRESSION: 1. No acute intra-abdominal process seen. 2. Diffuse colonic diverticulosis with mild mural thickening of the vertical segment of sigmoid colon but no pericolic fat stranding seen. 3. No radiopaque urolith or hydroureteronephrosis. Fleischner guidelines were followed.
[2023-08-24 12:57] VITALS: BP 134/76; PULSE 90; RESP 16; TEMP 37; O2SAT 100; BMI 30.8
--- NOTE | 2023-08-24 12:59 | ED_ITS ---
HPI - General Adult General Chief complaint: Back Pain/Injury Stated complaint: multiple symptoms Time Seen by Provider: 08/24/23 17:33 Source: patient, RN notes reviewed and old records reviewed Mode of arrival: ambulatory History of Present Illness ED Provider: Inez Mendez PA-C HPI narrative: 62-year-old female with a past medical history of pseudotumor cerebri, renal calculi, diverticulosis, asthma, presenting to the ED complaining of right-sided low back/buttock pain radiating down RLE x a while, worsening over the past few days. Also reports dysuria, urinary hesitancy, and constipation. States it seen at the clinic and sent to the ED for a CT scan. Also states she was told she [facility]. Denies fever, chills, vomiting/diarrhea, incontinence Related Data Home Medications ?Medication ?Instructions ?Recorded ?Confirmed doxepin 75 mg capsule 75 mg PO BEDTIME 11/22/19 08/11/23 estazolam 1 mg tablet 3 mg PO BEDTIME 06/06/20 08/11/23 alendronate 70 mg tablet 70 mg PO TU 06/03/22 08/11/23 cholecalciferol (vitamin D3) 25 25 mcg PO DAILY 06/03/22 08/11/23 mcg (1,000 unit) tablet perphenazine 4 mg tablet 4 mg PO BID@1200,2100 06/04/22 08/11/23 levothyroxine 100 mcg tablet 100 mcg PO DAILY@0600 10/01/22 08/11/23 lidocaine 5 % topical patch 1 patch topical DAILY 10/01/22 08/11/23 magnesium oxide 400 mg (241.3 mg 400 mg PO DAILY@1200 10/01/22 08/11/23 magnesium) tablet omeprazole 40 mg capsule,delayed 40 mg PO DAILY@0630 10/01/22 08/11/23 release venlafaxine 25 mg tablet 25 mg PO DAILY@1200 10/01/22 08/11/23 pyridoxine (vitamin B6) 100 mg 200 mg PO DAILY@1200 11/27/22 08/11/23 tablet semaglutide (weight loss) 1 mg/0.5 mg subcut 08/11/23 08/11/23 mL subcutaneous pen injector (Oren) Previous Rx's ?Medication ?Instructions ?Recorded meclizine 25 mg tablet (Dramamine 25 mg PO TID PRN dizziness #20 tabs 12/19/20 Less Drowsy) ondansetron 4 mg disintegrating 4 mg PO Q8H PRN nausea and 09/10/22 tablet vomiting #10 tabs albuterol sulfate 90 mcg/actuation 2 puff PO Q6H PRN for wheezing 30 10/29/22 aerosol inhaler (Ventolin HFA) days #18 grams ondansetron 4 mg disintegrating 4 mg PO Q6H PRN nausea and 04/16/23 tablet vomiting #10 tabs sucralfate 1 gram tablet 1 g PO TID PRN upper abdominal 04/16/23 pain #30 tabs cetirizine 10 mg tablet 10 mg PO DAILY PRN allergy 06/04/23 symptoms #30 tabs fluticasone 500 mcg-salmeterol 50 1 inh inhalation BID ASTHMA 30 07/23/23 mcg/dose blistr powdr for days #60 ea inhalation albuterol sulfate 2.5 mg/3 mL 2.5 mg (3 mL) inhalation Q4H PRN 08/11/23 (0.083 %) solution for nebulization shortness of breath or wheezing 30 days #180 mL fluticasone 250 mcg-salmeterol 50 1 inh inhalation BID ASTHMA 30 08/11/23 mcg/dose blistr powdr for days #60 ea inhalation (Advair Diskus) Allergies Allergy/AdvReac Type Severity Reaction Status Date / Time nalbuphine [From Nubain] Allergy Severe Anaphylaxis Verified 08/24/23 13:01 Review of Systems 2 Review of Systems: Constitutional: No Fever, No Chills ENT/Mouth: No Ear Pain, No Nasal Congestion, No sore throat, No Rhinorrhea, No Swallowing Difficulty Cardiovascular: No Chest Pain, No SOB Respiratory: No Cough Gastrointestinal: No Nausea, No Vomiting, No Diarrhea, + Constipation, No Abdominal pain Genitourinary: + Dysuria, No Urinary Frequency, No Hematuria, + hesitancy, No Urinary Incontinence/retention, No Urgency, No Flank Pain Musculoskeletal: +back pain, No Myalgias, No Joint Swelling Skin: No Skin Lesions, No rash Neuro: No Weakness Yes all other systems are reviewed and are negative Constitutional: Constitutional: Reports as per HPI Neurologic: Denies Sensory deficit (Neuro) [facility] Past Medical History Attestation statement: The following information was validated with the patient. Source: old records reviewed Medical History Somnolence, daytime Obesity (BMI 30-39.9) Nausea & vomiting Migraine Syncope Pseudotumor cerebri Kidney calculi Crystal arthropathy Right shoulder injury Kidney tumor COVID-19 vaccine administered Thyroid disease Colon polyp Diverticulosis of colon Bronchial asthma Acid reflux Surgical History History of esophagogastroduodenoscopy (EGD) History of surgery on wrist History of hysterectomy Previous section Hx laparoscopic cholecystectomy Hx of gastric bypass (03/12/15) Hx of colonoscopy Family History Family History Father Heart disease History of open heart surgery Mother Heart disease Social History Social History Household Members: None Household Members Other:: alone Are you a primary health care recruiter to a significant other at home: No Do you presently have visiting nurse or other home services: No Alcohol intake: never Patient Tobacco Use Status: Former Tobacco user Tobacco use type: Cigarette Smoked in Last 30 Days: No Use of substances other than those prescribed or required for medical reasons: No Advance Directives: No Advance Directives Information Provided: No Patient : No service: No Current occupational status: disabled Physical Exam ED Vital Signs: Vital Signs - 24 hr 08/24/23 12:57 08/24/23 17:41 08/24/23 20:45 Temperature 98.6 F 98 F 98.1 F Pulse Rate 90 68 71 Respiratory Rate 16 16 16 Blood Pressure 134/76 105/57 L 111/59 L Pulse Oximetry 100 100 100 Oxygen Delivery Method Room Air Room Air Room Air 08/24/23 21:28 Temperature 98.1 F Pulse Rate 71 Respiratory Rate 16 Blood Pressure 111/59 L Pulse Oximetry 100 Oxygen Delivery Method Room Air BMI result Body Mass Index 30.8 Const General: cooperative, healthy appearing and no acute distress Orientation/consciousness: patient oriented x3 Limitations: no limitations HENMT Head: Yes normal to inspection and Yes atraumatic Ears: hearing grossly normal bilaterally General nose exam: Normal external nose present Face and sinus: Yes normal facial exam Eyes General: appearance normal, both eyes and all related structures EOM: EOMs intact bilaterally Neck Neck: Yes normal visual inspection and Yes no meningeal signs Resp Effort & Inspection: normal respiratory effort and no respiratory distress Auscultation: clear to auscultation bilaterally Cardio Rate: regular rate Heart sounds: S1 normal heart sound present and S2 normal heart sound present GI Inspection: Yes normal to inspection Palpation (GI): Soft to palpation, nontender, no guarding and not rigid General: Yes no CVA tenderness Back/Spine/Pelvis Other: No midline cervical/thoracic/lumbar spinous tenderness/step-off or deformity. + right sided lumbar & right lower buttock MSK reproducible tenderness. No rash or erythema Back: no CVA tenderness Skin Rashes: no rashes Wounds: no wounds Neuro Other: Strength intact throughout. No saddle anesthesia. Sensation intact to light touch. Neurovascular intact distally General: patient oriented x3, tone normal, moves all extremities and no meningeal signs Cranial nerves: Yes CN's II-XII intact bilaterally Gait exam (Neuro): Normal gait present Motor exam (neuro): 5/5 motor strength present throughout Sensory Exam: No Sensory deficit (Neuro) Extrem General: Yes normal to inspection Course Course Course Narrative: RME, this is a rapid medical exam performed by Randall Boothe please refer to primary provider for complete H&P- 62-year-old female presents for evaluation of multiple complaints including back pain that radiates down to her legs, difficulty urinating, constipation. Plan for basic labs, urinalysis and further examination -1734--labs reassuring -UA negative -1842--postvoid residual with 0 cc on bladder scan, no evidence of patient retaining -1900-- ED care transferred to [facility] pending CT and dispo per results. Anticipated discharge home. Reevaluation(s) Reevaluation #1: CT/CT abdomen pelvis wo IV con IMPRESSION: 1. No acute intra-abdominal process seen. 2. Diffuse colonic diverticulosis with mild mural thickening of the vertical segment of sigmoid colon but no pericolic fat stranding seen. 3. No radiopaque urolith or hydroureteronephrosis. Reports minimal improvement in pain after receiving Flexeril. She plans to follow-up outpatient with her primary care provider for any persistent symptoms, reports that she was concerned that this ongoing pain in her right leg may interfere with her upcoming lipoma removal. At this time I feel that she is stable for discharge, discussed worrisome signs and symptoms that would warrant re-evaluation in the emergency department. All questions answered Medications Administered Discontinued Medications Generic Name Dose Route Start Last Admin Trade Name Sid PRN Reason Stop Dose Admin Cyclobenzaprine HCl 5 mg 08/24/23 19:03 08/24/23 19:19 Cyclobenzaprine Hcl 5 Mg Tablet PO 08/24/23 19:04 5 mg ONCE ONE Administration Medical Decision Making Medical Decision Making MDM Narrative: 62-year-old female with a past medical history of pseudotumor cerebri, renal calculi, diverticulosis, asthma, presenting to the ED complaining of right-sided low back/buttock pain radiating down RLE x a while, worsening over the past few days. Also reports dysuria, urinary hesitancy, and constipation. On exam vital signs stable, NAD, nontoxic appearing, abdomen soft/nontender, right-sided lumbar MSK and buttock reproducible tenderness elicited. No red flag symptoms. Concern for sciatica/MSK pain/strain vs renal stone vs UTI. Lower suspicion for pyelonephritis. Lower suspicion for diverticulitis/appendicitis. Unlikely cauda equina/cord compression Plan: Labs, UA, CT AP, re-evaluate Please refer to course for remaining clinical decision making, interpretation of labs/imaging results, and discussions with consultants and/or family members. Differential Diagnosis Differential Diagnoses: The differential diagnosis associated with the presentation includes As above Admission/Observation Consideration of admission/observation: Escalation of care including admission/observation considered Lab Data MDM Lab Attestation statement: I reviewed the patient's lab results. 08/24/23 13:08 08/24/23 13:08 Labs: Lab Results 08/24/23 08/24/23 Range/Units 13:04 13:08 WBC 7.2 (4.8-10.8) X10*3/uL RBC 5.13 (4.20-5.50) X10*6/uL Hgb 13.3 (12.0-16.0) g/dl Hct 42.6 (37.0-47.0) % MCV 83.0 (80.0-98.0) fL MCH 25.9 L (27.0-33.0) pg MCHC 31.2 (31.0-35.0) g/dl RDW 15.7 (11.0-16.0) % Plt Count 310 (160-400) X10*3/uL MPV 9.8 (9.4-12.3) fL Immature Gran % (Auto) 0.3 (0.0-0.4) % Neut % (Auto) 63.1 (45-73) % Lymph % (Auto) 24.5 (20-40) % [place] % (Auto) 10.3 (2-11) % Eos % (Auto) 1.0 (0-4) % Baso % (Auto) 0.8 (0-2) % Lymph # (Auto) 1.8 (1.2-4.9) X10*3/uL [place] # (Auto) 0.7 (0.1-1.2) X10*3/uL Eos # (Auto) 0.1 (0.0-0.4) X10*3/uL Baso # (Auto) 0.1 (0.0-0.2) X10*3/uL Abs Immat Gran (auto) 0.02 (0.00-0.03) X10*3/uL Absolute Neuts (auto) 4.5 (2.0-8.3) x10*3/uL Absolute Nucleated RBC 0.000 (0.0-0.012) X10*3/uL Nucleated RBC % (auto) 0.0 (0.0-0.2) /100WBC Sodium 139 (135-145) mmol/L Potassium 4.5 (3.3-5.1) mmol/L Chloride 104 (96-108) mmol/L Carbon Dioxide 28 (22-29) mmol/L Anion Gap 12 (12-20) BUN 21 H (9-16) mg/dL Creatinine 0.88 (0.5-1.4) mg/dL Estim Creat Clear Calc 64.2 Estimated GFR > 60 Random Glucose 86 (60-115) mg/dL Calcium 9.7 (8.4-10.2) mg/dL Total Bilirubin 0.3 (0.0-1.0) mg/dL AST 25 (5-31) U/L ALT 21 (0-31) U/L Alkaline Phosphatase 76 (39-117) U/L Total Protein 7.3 (6.5-8.0) g/dL Albumin 4.0 (3.5-5.0) g/dL Lipase 39 (8-78) U/L Urine Color Yellow Urine Appearance Clear Urine pH 5.5 (5.0-9.0) Ur Specific [place] 1.010 (1.005-1.025) Urine Protein Negative (Neg-Trace) mg/dL Urine Glucose (UA) Negative (Negative) mg/dL Urine Ketones Negative (Negative) mg/dL Urine Blood Trace H (Negative) Urine Nitrite Negative (Negative) Ur Leukocyte Esterase Negative (Negative) Urine RBC 0-2 (0-2) /HPF Urine WBC 0-5 (0-5) /HPF Ur Squamous Epith Cells 0-2 (0-2) /HPF Urine Bacteria None Seen (None Seen) Hyaline Casts 0-2 (0-2) /LPF Independent Interpretation I performed an independent interpretation of an: CT Scan Radiology Impression Discussion of test interpretation with radiology: I have reviewed the radiologist's reading. External Record Review External record reviewed: Inpatient record, Office record, Outpatient record, Prior outpatient labs, Prior outpatient radiology, Primary care record and Outside ED record Tests considered The following testing was considered but not selected: As above Prescription Management I considered prescription management with: Pain Medication Chronic Conditions Patient?s care impacted by: Other (C diff, gastric bypass) Discharge Plan Discharge Clinical Impression: Right-sided back pain, Constipation, Dysuria Patient Disposition: Home, Self-Care Additional Instructions: Your blood work and urine are unremarkable Your CT scan does not show any obvious cause for your symptoms Please have close follow-up with your doctor Continue home prescribed medications If her symptoms persist or worsen/become unbearable return to the emergency department Prescriptions: No Action albuterol sulfate [Ventolin HFA] 90 mcg/actuation HFA aerosol inhaler 2 puff PO Q6H PRN (Reason: for wheezing) 30 Days Qty: 18 6RF fluticasone propion-salmeterol 500-50 mcg/dose blister with device 1 inh inhalation BID 30 Days Qty: 60 3RF meclizine [Dramamine Less Drowsy] 25 mg tablet 25 mg PO TID PRN (Reason: dizziness) Qty: 20 0RF perphenazine 4 mg tablet 4 mg PO BID@1200,2100 pyridoxine (vitamin B6) 100 mg tablet 200 mg PO DAILY@1200 ondansetron 4 mg tablet,disintegrating 4 mg PO Q6H PRN (Reason: nausea and vomiting) Qty: 10 0RF sucralfate 1 gram tablet 1 g PO TID PRN (Reason: upper abdominal pain) Qty: 30 0RF ondansetron 4 mg tablet,disintegrating 4 mg PO Q8H PRN (Reason: nausea and vomiting) Qty: 10 0RF cetirizine 10 mg tablet 10 mg PO DAILY PRN (Reason: allergy symptoms) Qty: 30 0RF doxepin 75 mg capsule 75 mg PO BEDTIME estazolam 1 mg tablet 3 mg PO BEDTIME alendronate 70 mg tablet 70 mg PO TU cholecalciferol (vitamin D3) 25 mcg (1,000 unit) tablet 25 mcg PO DAILY omeprazole 40 mg capsule,delayed release(DR/EC) 40 mg PO DAILY@0630 lidocaine 5 % adhesive patch,medicated 1 patch topical DAILY venlafaxine 25 mg tablet 25 mg PO DAILY@1200 magnesium oxide 400 mg (241.3 mg magnesium) tablet 400 mg PO DAILY@1200 levothyroxine 100 mcg tablet 100 mcg PO DAILY@0600 [place]govy 1 mg/0.5 mL pen injector subcut fluticasone propion-salmeterol [Advair Diskus] 250-50 mcg/dose blister with device 1 inh inhalation BID 30 Days Qty: 60 5RF albuterol sulfate 2.5 mg /3 mL (0.083 %) solution for nebulization 2.5 mg inhalation Q4H PRN (Reason: shortness of breath or wheezing) 30 Days Qty: 180 3RF Referrals: Name,MD Gregg [Primary Care Provider] - 5 days Interventions: ED Discharge Assessment Last Done: 08/24/23 21:28 Discharge Date/Time: 08/24/23 21:00 Print Language: Taiwanese
[2023-08-24 13:13] LABS: MANUAL DIFF FLAG NO
[2023-08-24 13:14] LABS: Appearance Urine Clear; Color Urine Yellow; Glucose Urine UA Negative (Negative); Leukocyte Esterase Urine Negative (Negative); Nitrite Urine Negative (Negative); PH 5.5 (5.0-9.0); UMIC TRIGGER UACC YES; Urine Blood Trace (Negative); Urine Ketones Negative (Negative); Urine Protein Negative (Neg-Trace)
[2023-08-24 13:20] LABS: Bacteria Urine None Seen (None Seen); Hyaline Casts Urine 0-2 /LPF (0-2); RBC Urine 0-2 /HPF (0-2); Squamous Epithelial Cell Urine 0-2 /HPF (0-2); WBC Urine 0-5 /HPF (0-5)
[2023-08-24 13:21] LABS: Basophils Absolute Auto 0.1 X10*3/uL (0.0-0.2); Basophils Percent Auto 0.8 % (0-2); Eosinophils Absolute Auto 0.1 X10*3/uL (0.0-0.4); Hematocrit 42.6 % (37.0-47.0); Hemoglobin 13.3 g/dl (12.0-16.0); Imm Gran Abs Auto 0.02 X10*3/uL (0.00-0.03); Imm Gran Pct Auto 0.3 % (0.0-0.4); Lymphocytes Absolute Auto 1.8 X10*3/uL (1.2-4.9); Lymphocytes Percent Auto 24.5 % (20-40); Mean Corpuscular HGB Conc 31.2 g/dl (31.0-35.0); Mean Corpuscular Hemoglobin 25.9 pg (27.0-33.0); Mean Platelet Volume 9.8 fL (9.4-12.3); Monocytes Absolute Auto 0.7 X10*3/uL (0.1-1.2); Monocytes Percent Auto 10.3 % (2-11); Neutrophils Absolute Auto 4.5 x10*3/uL (2.0-8.3); Neutrophils Percent Auto 63.1 % (45-73); Platelet Count 310 X10*3/uL (160-400); Red Blood Count 5.13 X10*6/uL (4.20-5.50); Red Cell Distribution Width 15.7 % (11.0-16.0); White Blood Count 7.2 X10*3/uL (4.8-10.8)
[2023-08-24 13:28] LABS: Alanine Aminotransferase 21 U/L (0-31); Alkaline Phosphatase 76 U/L (39-117); Anion Gap 12 (12-20); Aspartate Amino Transferase 25 U/L (5-31); Bilirubin Total 0.3 mg/dL (0.0-1.0); Blood Urea Nitrogen 21 mg/dL (9-16); Calcium 9.7 mg/dL (8.4-10.2); Carbon Dioxide 28 mmol/L (22-29); Chloride 104 mmol/L (96-108); Creatinine Clr Calc Pharmacy 64.2; Estimated Glomerular Filt Rate > 60; Glucose Random 86 mg/dL (60-115); Lipase 39 U/L (8-78); Potassium 4.5 mmol/L (3.3-5.1); Sodium 139 mmol/L (135-145); Total Protein 7.3 g/dL (6.5-8.0)
[2023-08-24 17:41] VITALS: BP 105/57; PULSE 68; RESP 16; TEMP 36.6; O2SAT 100
--- NOTE | 2023-08-24 17:59 | PC.NURSE ---
Pt presents to ED with c/o 10/10 pain to R upper buttock and RLQ of abdomen. States she has had pain x3 weeks and reports a history of kidney stones. Pt is A&Ox3 VSS and afebrile Provider at bedside for eval and plan for CT. Pt resting comfortably watching TV.
[2023-08-24] MEDS: Cyclobenzaprine HCl 5 MG TABLET PO (19:19)
[2023-08-24 20:45] VITALS: BP 111/59; PULSE 71; RESP 16; TEMP 36.7; O2SAT 100
[2023-08-24 21:28] VITALS: BP 111/59; PULSE 71; RESP 16; TEMP 36.7; O2SAT 100
== END 2023-08-24 21:00 | disposition home or self-care (01) ==
PROVIDERS: Physician Assistant; Emergency Provider Emergency Medicine; PCP Internal Medicine Geriatric Medicine
DX: M54.50 Low back pain, unspecified (principal); K59.00 Constipation, unspecified; R30.0 Dysuria; R31.9 Hematuria, unspecified; R39.11 Hesitancy of micturition; Z79.899 Other long term (current) drug therapy
CPT/HCPCS: 36415; 51798; 74176; 80053; 81001; 83690; 85025; 99284; 99285

== ENCOUNTER 2023-08-24 16:42 | Outpatient (REF) | payer MEDICAID, SELFPAY | END 2023-08-24 16:43 | disposition home or self-care (01) | LOC: HO.HHCLNP 16:42 | PROVIDERS: Visit Provider Internal Medicine | DX: M54.50 Low back pain, unspecified (principal) | CPT/HCPCS: 87086 ==

== ENCOUNTER 2023-09-10 09:36 | Day surgery (SDC) | payer MEDICAID, SELFPAY ==
--- NOTE | 2023-09-08 14:18 | P.CONAN_ITS ---
Documented by User: Farrah Vela NP 09/08/23 14:19 HPI - Anesthesia Eval Consult details Narrative: 62yo F for Wide Local Excision Right Upper quadrant ABD Wall Mass, Wide Local Excision Right Lower Back Mass Anesthesia Pre-Procedure Meds Is the patient on any of the following meds?: GLP1/DPP4 PMFSH Active Problems Active Problems: All Active Problems Constipation by outlet dysfunction (Acute) Lipoma of abdominal wall (Acute) Lipoma of back (Acute) Clostridium difficile infection (Acute) Somnolence, daytime (Acute) Obesity (BMI 30-39.9) (Acute) Dizziness (Acute) Vertigo (Acute) Hoarseness (Acute) Hx of gastric bypass (Acute 03/12/15) Nausea & vomiting (Acute) Early satiety (Acute) Rectal bleeding (Acute) Hyperplastic colon polyp (Acute) Close exposure to 2019-nCoV (Acute) Strain of tendon of medial thigh muscle (Acute) Status post gastric bypass for obesity (Acute) Easy bruising (Acute) Pseudotumor cerebri (Acute) Kidney calculi (Acute) Crystal arthropathy (Acute) Right shoulder injury (Acute) Diverticulosis of colon (Acute) Bronchial asthma (Acute) Acid reflux (Acute) Past Medical History Medical History Somnolence, daytime Obesity (BMI 30-39.9) Nausea & vomiting Migraine Syncope Pseudotumor cerebri Kidney calculi Crystal arthropathy Right shoulder injury Kidney tumor COVID-19 vaccine administered Thyroid disease Colon polyp Diverticulosis of colon Bronchial asthma Acid reflux Family History Family History Father Heart disease History of open heart surgery Mother Heart disease Family history of problems with anesthesia: No Surgical History Surgical History History of esophagogastroduodenoscopy (EGD) History of surgery on wrist History of hysterectomy Previous section Hx laparoscopic cholecystectomy Hx of gastric bypass (03/12/15) Hx of colonoscopy History of Problems with Anesthesia: No Social History Social History Household Members: None Household Members Other:: alone Are you a primary youth care specialist to a significant other at home: No Do you presently have visiting nurse or other home services: No Alcohol intake: never Patient Tobacco Use Status: Former Tobacco user Tobacco use type: Cigarette Use of substances other than those prescribed or required for medical reasons: No Are you DNR?: No Advance Directives: No Advance Directives Information Provided: Yes service: No Current occupational status: disabled Meds Allergies Allergy/AdvReac Type Severity Reaction Status Date / Time nalbuphine [From Nubain] Allergy Severe Anaphylaxis Verified 08/24/23 13:01 Home Medications ?Medication ?Instructions ?Recorded ?Confirmed ?Last Taken ?Type doxepin 75 mg capsule 75 mg PO BEDTIME 11/22/19 08/11/23 Unknown History estazolam 1 mg tablet 3 mg PO BEDTIME 06/06/20 08/11/23 Unknown History alendronate 70 mg tablet 70 mg PO TU 06/03/22 08/11/23 2 Weeks Ago History ~11/13/22 cholecalciferol (vitamin D3) 25 25 mcg PO DAILY 06/03/22 08/11/23 Unknown History mcg (1,000 unit) tablet perphenazine 4 mg tablet 4 mg PO BID@1200,2100 06/04/22 08/11/23 Unknown History levothyroxine 100 mcg tablet 100 mcg PO DAILY@0600 10/01/22 08/11/23 11/27/22 History lidocaine 5 % topical patch 1 patch topical DAILY 10/01/22 08/11/23 Unknown History magnesium oxide 400 mg (241.3 mg 400 mg PO DAILY@1200 10/01/22 08/11/23 Unknown History magnesium) tablet omeprazole 40 mg capsule,delayed 40 mg PO DAILY@0630 10/01/22 08/11/23 Unknown History release venlafaxine 25 mg tablet 25 mg PO DAILY@1200 10/01/22 08/11/23 Unknown History pyridoxine (vitamin B6) 100 mg 200 mg PO DAILY@1200 11/27/22 08/11/23 Unknown History tablet semaglutide (weight loss) 1 mg/0.5 mg subcut 08/11/23 08/11/23 Unknown History mL subcutaneous pen injector (Wegovy) Exam Pertinent Lab Results Pertinent Lab Results: Laboratory Tests 08/24/23 13:08 WBC 7.2 Hgb 13.3 Hct 42.6 Plt Count 310 Sodium 139 Potassium 4.5 Chloride 104 Carbon Dioxide 28 BUN 21 H Creatinine 0.88 Narrative Narrative: EKG 06/2023 Vent. Rate : 081 BPM Atrial Rate : 081 BPM P-R Int : 164 ms QRS Dur : 076 ms QT Int : 370 ms P-R-T Axes : 030 -03 000 degrees QTc Int : 429 ms Normal sinus rhythm Nonspecific T wave abnormality Abnormal ECG When compared with ECG of 01-JUN-2023 13:16, No significant change was found Assessment and Plan Assessment Anesthesia Assessment: Chart Reviewed Final Anesthetic Review Family History of Problems with Anesthesia: No History of Problems with Anesthesia: No Documented by User: Jessi Veronica MD 09/10/23 13:08 [facility] Past Medical History Medical History Somnolence, daytime Obesity (BMI 30-39.9) Nausea & vomiting Migraine Syncope Pseudotumor cerebri Kidney calculi Crystal arthropathy Right shoulder injury Kidney tumor COVID-19 vaccine administered Thyroid disease Colon polyp Diverticulosis of colon Bronchial asthma Acid reflux Family History Family History Father Heart disease History of open heart surgery Mother Heart disease Surgical History Surgical History History of esophagogastroduodenoscopy (EGD) History of surgery on wrist History of hysterectomy Previous section Hx laparoscopic cholecystectomy Hx of gastric bypass (03/12/15) Hx of colonoscopy Social History Social History Household Members: None Household Members Other:: alone Are you a primary youth care specialist to a significant other at home: No Do you presently have visiting nurse or other home services: No Alcohol intake: never Patient Tobacco Use Status: Former Tobacco user Tobacco use type: Cigarette Use of substances other than those prescribed or required for medical reasons: No Are you DNR?: No Advance Directives: No Advance Directives Information Provided: Yes service: No Current occupational status: disabled Meds Allergies Allergy/AdvReac Type Severity Reaction Status Date / Time nalbuphine [From Nubain] Allergy Severe Anaphylaxis Verified 08/24/23 13:01 Home Medications ?Medication ?Instructions ?Recorded ?Confirmed ?Last Taken ?Type doxepin 75 mg capsule 75 mg PO BEDTIME 11/22/19 08/11/23 Unknown History estazolam 1 mg tablet 3 mg PO BEDTIME 06/06/20 08/11/23 Unknown History alendronate 70 mg tablet 70 mg PO TU 06/03/22 08/11/23 2 Weeks Ago History ~11/13/22 cholecalciferol (vitamin D3) 25 25 mcg PO DAILY 06/03/22 08/11/23 Unknown History mcg (1,000 unit) tablet perphenazine 4 mg tablet 4 mg PO BID@1200,2100 06/04/22 08/11/23 Unknown History levothyroxine 100 mcg tablet 100 mcg PO DAILY@0600 10/01/22 08/11/23 11/27/22 History lidocaine 5 % topical patch 1 patch topical DAILY 10/01/22 08/11/23 Unknown History magnesium oxide 400 mg (241.3 mg 400 mg PO DAILY@1200 10/01/22 08/11/23 Unknown History magnesium) tablet omeprazole 40 mg capsule,delayed 40 mg PO DAILY@0630 10/01/22 08/11/23 Unknown History release venlafaxine 25 mg tablet 25 mg PO DAILY@1200 10/01/22 08/11/23 Unknown History pyridoxine (vitamin B6) 100 mg 200 mg PO DAILY@1200 11/27/22 08/11/23 Unknown History tablet semaglutide (weight loss) 1 mg/0.5 mg subcut 08/11/23 08/11/23 Unknown History mL subcutaneous pen injector (Wegovy) Exam Airway Mallampati Class: II TM Dist: >3cm Neck ROM: Full Denture: Upper and Lower Loose/Missing/Broken Teeth: Yes, Upper and Lower Heart: RRR Lungs: CTA Assessment and Plan Assessment Anesthesia Assessment: Anesthesia Plan Discussed Final Anesthetic Review NPO: Yes ASA Class: II Final Preanesthetic Review: Meds/Allgs Chart Reviewed, Consent Obtained/Reviewed and Anes Risks/Benef Reviewed Patient Risk: Low Procedure Risk: Low Anesthetic Plan Anesthetic Plan: GA Disposition: Standard PACU
--- NOTE | 2023-09-09 11:35 | MHC.SHP ---
Pre-Procedural Eval Section A - 24 Hr Update-Section A only Date of Service: 09/10/23 The patient is an INPATIENT: No Changes since office visit: No Cold of Flu in the past 2 weeks, No New Medical Problems, No Changes in Medication and No Patient answered all questions Section B - Complete if H&P > 30 days Chief Complaint: Benign lipomatous neoplasm of skin and subcutaneou Allergies: Allergies Allergy/AdvReac Type Severity Reaction Status Date / Time nalbuphine [From Nubain] Allergy Severe Anaphylaxis Verified 08/24/23 13:01 Plan I have reviewed the history and physical and performed a pertinent physical examination on my patient. No changes have occurred unless specified. Time Spent With Patient Time: Total time managing care of this patient today ____ minutes.
[2023-09-10] VITALS (9 sets, daily range): BP systolic 101–115; BP diastolic 63–73; PULSE 57–71; RESP 14–20; TEMP 36.1–36.6; O2SAT 97–100; BMI 30.5
--- NOTE | 2023-09-10 13:22 | MHC.SHP ---
Pre-Procedural Eval Section A - 24 Hr Update-Section A only Date of Service: 09/10/23 The patient is an INPATIENT: No Changes since office visit: No Cold of Flu in the past 2 weeks, No New Medical Problems, No Changes in Medication and No Patient answered all questions The patient has been examined within 24 hours of the surgical procedure. The History & Physical has been completed within 30 days and I have reviewed it.: Yes Section B - Complete if H&P > 30 days Chief Complaint: Benign lipomatous neoplasm of skin and subcutaneou Allergies: Allergies Allergy/AdvReac Type Severity Reaction Status Date / Time nalbuphine [From Nubain] Allergy Severe Anaphylaxis Verified 08/24/23 13:01 Review of Systems Sugical H&P ROS: Negative: Constitution, Cardiovascular, Respiratory, Neurological, Psychiatric, Hem-Onc, Allergic/Immunologic, Gastrointestinal, Genitourinary, Musculoskeletal, Integumentary, Endocrine and Eyes/Ears/Nose/Throat Exam Surgical H&P Exam: Normal: HEENT, Normal: Heart, Normal: Lungs, Normal: Extremities, Normal: Abdomen, Normal: Skin and Normal: Neurological Plan I have reviewed the history and physical and performed a pertinent physical examination on my patient. No changes have occurred unless specified. Time Spent With Patient Time: Total time managing care of this patient today ____ minutes.
--- NOTE | 2023-09-10 13:49 | P.OP_ITS ---
Operative Note Operative Note Date of Service: 09/10/23 Narrative: Preoperative diagnosis: [] Right upper quadrant deep abdominal wall lipoma Postop diagnosis: [] The same Procedure [] excision abdominal wall lipoma Surgeon: [] Luis Conference Services Manager: [] Thierno Type of Anesthesia: [] General Indication for surgery: [] Approximately 9 x 6 cm deep bilobed right upper quadrant abdominal wall lipoma uneventfully excised Findings: [] Patient brought to the operating room, placed on operative table in supine position, after adequate level of general anesthesia was induced, the patient's upper abdomen was prepped and draped in usual sterile fashion using a transverse incision over the mass in question consistent with a deep lipoma, this was carried down through skin, subcutaneous tissue, where uneventful enucleation of large lipoma with dimensions of the as described above was uneventfully performed. Specimen sent to pathology. Wound was irrigated, secured hemostasis, and closed using interrupted inverted dermal 3-0 Vicryl sutures followed by Steri-Strips and sterile dressings. Wound was infiltrated at the beginning at the end with 0.5% Marcaine/1% lidocaine. Sponge, needle, and instrument counts were reported correct. Patient tolerated the procedure well and emerged from anesthesia stable condition. EBL minimal
[2023-09-10] MEDS: Acetaminophen 325 MG TABLET 650 MG PO (14:18)
[2023-09-10] MEDS: fentaNYL citrate/PF 100 MCG/2 ML VIAL 25 MCG IVPUSH ×2 (14:25→14:30)
== END 2023-09-10 15:34 | disposition home or self-care (01) ==
PROVIDERS: PCP Internal Medicine Geriatric Medicine; Visit Provider Surgery
PROC: (CPT 22903; principal; 2023-09-10 12:50)
DX: D17.5 Benign lipomatous neoplasm of intra-abdominal organs (principal); G93.2 Benign intracranial hypertension; R40.0 Somnolence; J45.909 Unspecified asthma, uncomplicated; K21.9 Gastro-esophageal reflux disease without esophagitis; G43.909 Migraine, unspecified, not intractable, without status migrainosus; E66.9 Obesity, unspecified; Z68.31 Body mass index [BMI] 31.0-31.9, adult; Z88.8 Allergy status to other drugs, medicaments and biological substances; Z98.84 Bariatric surgery status; Z87.891 Personal history of nicotine dependence
CPT/HCPCS: 22903; 88304; J0690; J1100; J1885; J2250; J2405; J2704; J2795; J3010

== ENCOUNTER → 2023-09-10 09:36 | Outpatient (BNV) | payer MEDICAID, SELFPAY | PROVIDERS: PCP Internal Medicine Geriatric Medicine; Visit Provider Surgery | DX: D17.1 Benign lipomatous neoplasm of skin and subcutaneous tissue of trunk (principal) | CPT/HCPCS: 22903 ==

== ENCOUNTER 2023-09-20 10:09 | Outpatient (AMB) | payer MEDICAID, SELFPAY ==
--- NOTE | 2023-09-20 10:22 | MHC.OFFVIS ---
Intake Visit Reasons: S/P WLE RUQ abd. wall & Rt. lower back mass Intake Note: Patient here s/p WLE RUQ lipoma. Patient c/o: pain, tenderness with touch. 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 Aside from incisional discomfort she is otherwise doing well. Pathology was benign. [facility] Medical History Somnolence, daytime Obesity (BMI 30-39.9) Nausea & vomiting Migraine Syncope Pseudotumor cerebri Kidney calculi Crystal arthropathy Right shoulder injury Kidney tumor COVID-19 vaccine administered Thyroid disease Colon polyp Diverticulosis of colon Bronchial asthma Acid reflux Surgical History Status post excision of lipoma (09/10/23) History of esophagogastroduodenoscopy (EGD) History of surgery on wrist History of hysterectomy Previous section Hx laparoscopic cholecystectomy Hx of gastric bypass (03/12/15) Hx of colonoscopy Family History Father Heart disease History of open heart surgery Mother Heart disease Social History Household Members: None Household Members Other:: alone Are you a primary out of school hours care worker to a significant other at home: No Do you presently have visiting nurse or other home services: No Alcohol intake: never Patient Tobacco Use Status: Former Tobacco user Tobacco use type: Cigarette service: No Current occupational status: disabled Physical Exam GI Other: Abdomen is soft. Incision clean dry and intact healing very well Assessment & Plan Assessment & Plan (1) Postop check: Code(s): Z09 - Encounter for follow-up examination after completed treatment for conditions other than malignant neoplasm Category: Surgical (2) Lipoma of abdominal wall: Comment: PATIENT HAS A LUMPY MASS IN THE ABDOMINAL WALL AT RIGHT UPPER QUADRANT, LEVEL SHE HAS BEEN SEEN BY DR. TIWARI WHO PLANS TO REMOVE IT SURGICALLY. Code(s): D17.1 - Benign lipomatous neoplasm of skin and subcutaneous tissue of trunk Category: Surgical Plan Patient was been given local instructions, and will follow-up p.r.n.. All questions answered. Coding Level of Care Code Global (16148) Diagnoses Postop check Z09 Lipoma of abdominal wall D17.1
== END 2023-09-20 10:26 | disposition home or self-care (01) ==
PROVIDERS: PCP Internal Medicine Geriatric Medicine; Visit Provider Surgery
DX: Z09 Encounter for follow-up examination after completed treatment for conditions other than malignant neoplasm (principal); D17.1 Benign lipomatous neoplasm of skin and subcutaneous tissue of trunk
CPT/HCPCS: 99024

== ENCOUNTER → 2023-09-20 10:09 | Outpatient (BNVA) | payer MEDICAID, SELFPAY | PROVIDERS: PCP Internal Medicine Geriatric Medicine; Visit Provider Surgery | DX: Z09 Encounter for follow-up examination after completed treatment for conditions other than malignant neoplasm (principal); Z87.2 Personal history of diseases of the skin and subcutaneous tissue | CPT/HCPCS: 99212 ==

== ENCOUNTER 2023-11-15 06:54 | Outpatient (REF) | payer MEDICAID, SELFPAY ==
[2023-11-15 07:50] LABS: Free T4 (Free Thyroxine) 1.04 ng/dL (0.71-1.85); Thyroid Stimulating Hormone 1.17 uIU/mL (0.32-4.0)
[2023-11-19 07:29] LABS: Metanephrine, Free <25 pg/mL (<=57); Normetanephrines, Free 120 pg/mL (<=148); Total Metanephrine, Free 120 pg/mL (<=205)
== END 2023-11-15 06:55 | disposition home or self-care (01) ==
LOC: HO.LAB 06:54
PROVIDERS: PCP Internal Medicine Geriatric Medicine; Visit Provider Internal Medicine Endocrinology, Diabetes & Metabolism
DX: E03.9 Hypothyroidism, unspecified (principal)
CPT/HCPCS: 36415; 83835; 84439; 84443

== ENCOUNTER 2023-12-01 11:53 | Outpatient (REF) | payer MEDICAID, SELFPAY ==
--- NOTE | ~2023-12-01 | XR_ITS ---
EXAMINATION: XR CHEST CLINICAL INFORMATION: Exacerbation of asthma COMPARISON: May 2023. TECHNIQUE: 2 views of the chest were obtained. FINDINGS: No dominant airspace consolidation or pneumothorax. Hilar regions and pulmonary vascularity are stable. Small linear atelectatic change toward the left base. No distinct pleural effusions. Thoracic spondylitic change noted. There are postsurgical changes of the right upper quadrant. XR/XR chest 2V IMPRESSION: No dominant consolidations. Small linear atelectatic change toward the left base. Electronically signed by: Jameel Mendoza MD 12/01/2023 03:22 PM EDT
== END 2023-12-01 11:54 | disposition home or self-care (01) ==
LOC: HO.HHCX 11:53
PROVIDERS: Visit Provider Internal Medicine
DX: J45.901 Unspecified asthma with (acute) exacerbation (principal)
CPT/HCPCS: 71046

== ENCOUNTER 2023-12-06 08:22 | Outpatient (AMB) | payer MEDICARE, MEDICAID, SELFPAY ==
[2023-12-06 08:49] VITALS: BP 102/68; PULSE 88; O2SAT 100; BMI 30.3
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
== END 2023-12-06 09:14 | disposition home or self-care (01) ==
PROVIDERS: PCP Internal Medicine Geriatric Medicine; Visit Provider Internal Medicine
DX: J45.909 Unspecified asthma, uncomplicated (principal)
CPT/HCPCS: 99213

== ENCOUNTER → 2023-12-06 08:22 | Outpatient (BNVA) | payer MEDICAID, SELFPAY | PROVIDERS: PCP Internal Medicine Geriatric Medicine; Visit Provider Internal Medicine | DX: J45.909 Unspecified asthma, uncomplicated (principal); J40 Bronchitis, not specified as acute or chronic | CPT/HCPCS: 99212 ==

== ENCOUNTER 2023-12-09 18:39 | Emergency (ER) | payer MEDICARE, MEDICAID, SELFPAY ==
--- NOTE | ~2023-12-09 | CT_ITS ---
EXAMINATION: CT HEAD WITHOUT CONTRAST CT CERVICAL SPINE WITHOUT CONTRAST CT THORACIC SPINE WITHOUT CONTRAST CT LUMBAR SPINE WITHOUT CONTRAST CLINICAL INFORMATION: Trauma. Fall off ladder. Pain. COMPARISON: CT head and cervical spine from 11/19/2022. TECHNIQUE: Contiguous axial imaging was performed from the skull base to vertex without intravenous administration of contrast. Contiguous axial imaging was performed from the upper chest through the skull base without intravenous administration of contrast. Multidetector helical imaging of the thoracic and lumbar spine was obtained without intravenous contrast. Multiple axial reformats and coronal/sagittal reconstructions were created the technologist workstation for review. This CT examination was performed using dose optimization techniques as appropriate, variously including the following: *Automated exposure control. *Adjustment of mA and/or kV according to patient size (this includes techniques or standardized protocols for targeted exams where dose is matched to indication/reason for exam; i.e. extremities or head). *Use of iterative reconstruction technique. DLP: 2738 mGy-cm FINDINGS: Head: There is no evidence of acute intracranial hemorrhage or edematous territorial infarction. Saunders-white matter differentiation is preserved. There is no abnormal attenuation within the brain parenchyma. The ventricles are normal in morphology and size. No evidence for obstructive hydrocephalus. No abnormal mass effect or midline shift. No extra-axial fluid collections. Mild soft tissue edema along the left posterior vertex. No associated acute osseous calvarial abnormalities. Mild mucosal thickening of the paranasal sinuses. The mastoid air cells and middle ear cavities are clear. Cervical Spine: The atlantooccipital and atlantoaxial articulations remain well aligned. Moderate degenerative arthropathy of the atlantodental articulation. Mild reversal the normal cervical lordosis. Otherwise, there is anatomic alignment of the vertebral bodies and posterior elements. Moderate degenerative disc disease from C5-C7. Facet and uncovertebral joint arthropathy leads to osseous encroachment on the neural foramina from C2-C6. No evidence of acute fracture or subluxation. The vertebral body heights are maintained. There is no prevertebral soft tissue swelling. The thyroid gland and remaining cervical soft tissues are within normal limits. The lung apices demonstrate no abnormalities. Thoracic Spine: Normal anatomic alignment. No evidence of acute fracture or traumatic subluxation. The vertebral body heights are maintained. Mild multilevel degenerative disc disease. No suspicious lytic or sclerotic osseous lesions. No significant abnormalities of the paraspinal musculature. Limited evaluation of the intrathoracic structures without significant abnormalities. The descending thoracic aorta is of normal contour and caliber. Moderate degenerative arthropathy of the right shoulder joint with subchondral cyst formation. AXIAL SPINAL LEVELS: Normal annular contours. There is mild to moderate multilevel facet joint arthropathy, most notably in the lower thoracic spine. There is no neural foraminal stenosis. There is no demonstrated spinal canal stenosis. Lumbar Spine: No demonstrated mild left lateral translation of L3 on L4. Otherwise, normal anatomic alignment. No evidence of acute fracture or traumatic subluxation. The vertebral body heights are maintained. The intervertebral disc spaces are maintained. No suspicious lytic or sclerotic osseous lesions. No significant abnormalities of the paraspinal musculature. Changes of prior sleeve gastrectomy and cholecystectomy. Moderate descending and sigmoid diverticulosis. Otherwise, limited of the intra-abdominal structures without significant abnormalities. The abdominal aorta is of normal contour and caliber with mild calcific atherosclerotic disease. AXIAL SPINAL LEVELS: L1-L2: Mild diffuse disc bulge. There is moderate bilateral facet joint arthropathy. There is no neural foraminal stenosis. There is no demonstrated spinal canal stenosis. L2-L3: Mild diffuse disc bulge. There is severe right and moderate left facet joint arthropathy. There is mild bilateral neural foraminal stenosis. There is no demonstrated spinal canal stenosis. L3-L4: Mild diffuse disc bulge. There is severe bilateral facet joint arthropathy. There is mild bilateral neural foraminal stenosis. There appears to be mild spinal canal stenosis. L4-L5: Mild diffuse disc bulge. There is severe right and moderate left facet joint arthropathy. There is moderate right and mild left neural foraminal stenosis. There appears to be mild spinal canal stenosis. L5-S1: Mild diffuse disc bulge. There is severe left and moderate right facet joint arthropathy. There is no neural foraminal stenosis. There is no demonstrated spinal canal stenosis. CT/CT cervical spine wo IV con IMPRESSION: 1. No evidence of acute intracranial hemorrhage or edematous territorial infarction. 2. No evidence of acute fracture or traumatic subluxation of the cervical, thoracic, or lumbar spine. 3. Mild to moderate multilevel degenerative spondyloarthropathy of the cervical, thoracic, and lumbar spine as described in detail above. Most notably on this limited exam without intrathecal contrast, there appears to be mild spinal canal stenoses at L3-L4 and L4-L5. Electronically signed by: Meek Lange DO 12/09/2023 11:37 PM EDT RP
[2023-12-09 18:43] VITALS: BP 120/90; PULSE 90; O2SAT 100
[2023-12-09 18:44] VITALS: BP 142/92; PULSE 73; RESP 22; TEMP 36.5; O2SAT 97; BMI 32.1
--- NOTE | 2023-12-09 19:36 | PC.NURSE ---
Pt updated on plan of care and that she is waiting on a provider to evaluate her.
[2023-12-09 22:14] VITALS: BP 128/77; PULSE 65; RESP 16; TEMP 36.9; O2SAT 100
[2023-12-09] MEDS: ondansetron HCL 4 MG/2 ML VIAL IVPUSH (23:02)
[2023-12-09] MEDS: LORazepam 2 MG/ML VIAL 1 MG IVPUSH (23:03)
[2023-12-09 23:04] VITALS: BP 114/63; PULSE 63; RESP 16; TEMP 36.6; O2SAT 100
[2023-12-09 23:04] LABS: MANUAL DIFF FLAG NO
[2023-12-09] MEDS: Morphine Sulfate 4 MG/ML CARTRIDGE IVPUSH (23:04)
[2023-12-09 23:06] LABS: Basophils Absolute Auto 0.1 X10*3/uL (0.0-0.2); Basophils Percent Auto 0.6 % (0-2); Eosinophils Absolute Auto 0.1 X10*3/uL (0.0-0.4); Eosinophils Percent Auto 1.3 % (0-4); Hematocrit 36.7 % (37.0-47.0); Hemoglobin 11.7 g/dl (12.0-16.0); Imm Gran Abs Auto 0.01 X10*3/uL (0.00-0.03); Imm Gran Pct Auto 0.1 % (0.0-0.4); Lymphocytes Percent Auto 24.6 % (20-40); Mean Corpuscular HGB Conc 31.9 g/dl (31.0-35.0); Mean Corpuscular Hemoglobin 26.1 pg (27.0-33.0); Mean Corpuscular Volume 81.9 fL (80.0-98.0); Mean Platelet Volume 9.5 fL (9.4-12.3); Monocytes Percent Auto 12.1 % (2-11); Neutrophils Absolute Auto 4.9 x10*3/uL (2.0-8.3); Neutrophils Percent Auto 61.3 % (45-73); Platelet Count 277 X10*3/uL (160-400); Red Blood Count 4.48 X10*6/uL (4.20-5.50); Red Cell Distribution Width 15.9 % (11.0-16.0)
[2023-12-09 23:17] LABS: Appearance Urine Clear; Color Urine Yellow; Glucose Urine UA Negative (Negative); Leukocyte Esterase Urine Negative (Negative); Nitrite Urine Negative (Negative); PH 7.5 (5.0-9.0); Urine Blood Negative (Negative); Urine Ketones Negative (Negative); Urine Protein Negative (Neg-Trace)
[2023-12-09 23:19] LABS: Glucose, Whole Blood 88 mg/dL (60-115)
[2023-12-09 23:36] LABS: Alanine Aminotransferase 22 U/L (0-31); Albumin Level 3.7 g/dL (3.5-5.0); Alkaline Phosphatase 71 U/L (39-117); Anion Gap 12 (12-20); Bilirubin Total 0.3 mg/dL (0.0-1.0); Blood Urea Nitrogen 16 mg/dL (9-16); Calcium 8.7 mg/dL (8.4-10.2); Carbon Dioxide 23 mmol/L (22-29); Chloride 108 mmol/L (96-108); Creatinine Clr Calc Pharmacy 76.8; Estimated Glomerular Filt Rate > 60; Glucose Random 90 mg/dL (60-115); Magnesium 2.4 mg/dL (1.6-2.6); Potassium 3.8 mmol/L (3.3-5.1); Sodium 139 mmol/L (135-145); Total Protein 6.8 g/dL (6.5-8.0)
[2023-12-09 23:39] LABS: Aspartate Amino Transferase 41 U/L (5-31)
[2023-12-10 00:15] VITALS: BP 103/67; PULSE 73; RESP 16; TEMP 36.5; O2SAT 100
--- NOTE | 2023-12-10 00:49 | MHC.EDTECH ---
at this time this tech attempted to ambulate pt via 2 assist. Pt was able to stand up from bed via 2 assist and attempted to take a couple steps however pt was in too much pain to take more than 2 small steps. Got pt back into bed and laying supine, pt stated her pain was a 10 from a scale of 0-10. Ambulation was not tolerated well, pt was grimacing, shouting, and tensed when attempting to ambulate. Pt requested pain medication and water as well as something to eat. RN notified.
--- NOTE | 2023-12-10 00:51 | ED.FALL ---
HPI - Fall General Chief Complaint: Fall Stated Complaint: Fell down 3 step ladder, 11/24 back pain Time Seen by Provider: 12/09/23 20:47 Source: patient Limitations: no limitations History of Present Illness ED Provider: Romana León PA-C HPI Narrative: 63-year-old female with a history of morbid obesity, vertigo, chronic low back pain presents after fall. Patient states she was standing on a 3 ft ladder, when she subsequently lost her balance and fell backwards, landing 100 back on the floor. Patient was ambulatory after the fall. Patient complains of posterior head, neck and pain over the entire length of her back. No loss of consciousness, the patient does not use a blood thinner. Denies dizziness, nausea, vomiting. Denies weakness of lower extremities, paresthesia. Related Data Home Medications ?Medication ?Instructions ?Recorded ?Confirmed doxepin 75 mg capsule 75 mg PO BEDTIME 11/22/19 12/06/23 estazolam 1 mg tablet 3 mg PO BEDTIME 06/06/20 12/06/23 alendronate 70 mg tablet 70 mg PO TU 06/03/22 12/06/23 cholecalciferol (vitamin D3) 25 25 mcg PO DAILY 06/03/22 12/06/23 mcg (1,000 unit) tablet perphenazine 4 mg tablet 4 mg PO BID@1200,2100 06/04/22 12/06/23 levothyroxine 100 mcg tablet 100 mcg PO DAILY@0600 10/01/22 12/06/23 lidocaine 5 % topical patch 1 patch topical DAILY 10/01/22 12/06/23 magnesium oxide 400 mg (241.3 mg 400 mg PO DAILY@1200 10/01/22 12/06/23 magnesium) tablet omeprazole 40 mg capsule,delayed 40 mg PO DAILY@0630 10/01/22 12/06/23 release venlafaxine 25 mg tablet 25 mg PO DAILY@1200 10/01/22 12/06/23 pyridoxine (vitamin B6) 100 mg 200 mg PO DAILY@1200 11/27/22 12/06/23 tablet semaglutide (weight loss) 1 mg/0.5 1 mg subcut DAILY 08/11/23 12/06/23 mL subcutaneous pen injector (Oren) Previous Rx's ?Medication ?Instructions ?Recorded meclizine 25 mg tablet (Dramamine 25 mg PO TID PRN dizziness #20 tabs 12/19/20 Less Drowsy) ondansetron 4 mg disintegrating 4 mg PO Q8H PRN nausea and 09/10/22 tablet vomiting #10 tabs ondansetron 4 mg disintegrating 4 mg PO Q6H PRN nausea and 04/16/23 tablet vomiting #10 tabs sucralfate 1 gram tablet 1 g PO TID PRN upper abdominal 04/16/23 pain #30 tabs cetirizine 10 mg tablet 10 mg PO DAILY PRN allergy 06/04/23 symptoms #30 tabs albuterol sulfate 2.5 mg/3 mL 2.5 mg (3 mL) inhalation Q4H PRN 08/11/23 (0.083 %) solution for nebulization shortness of breath or wheezing 30 days #180 mL fluticasone 250 mcg-salmeterol 50 1 inh inhalation BID ASTHMA 30 08/11/23 mcg/dose blistr powdr for days #60 ea inhalation (Advair Diskus) polyethylene glycol 3350 17 17 g PO DAILY #850 grams 08/26/23 gram/dose oral powder (Miralax) ibuprofen 800 mg tablet 800 mg PO Q8H PRN pain #30 tabs 09/10/23 albuterol sulfate 90 mcg/actuation 2 puff PO Q6H PRN for wheezing 30 11/01/23 aerosol inhaler (Ventolin HFA) days #18 grams methocarbamol 750 mg tablet 1,500 mg (2 x 750 mg) PO QID PRN 12/10/23 pain #30 tabs Allergies Allergy/AdvReac Type Severity Reaction Status Date / Time nalbuphine [From Nubain] Allergy Severe Anaphylaxis Verified 12/09/23 18:46 Review of Systems Review of Systems: Yes all other systems are reviewed and are negative Constitutional: Constitutional: Denies fatigue and Denies fever(s) ENT: Reports neck pain Cardiovascular: Cardiovascular: Denies chest pain and Denies dyspnea Respiratory: Respiratory: Denies dyspnea Gastrointestinal: Gastrointestinal: Denies abdominal pain, Denies nausea and Denies vomiting Musculoskeletal: Musculoskeletal: Reports back pain, Reports myalgias, Denies joint swelling, Reports neck pain, Denies numbness and Reports stiffness Neurologic: Denies numbness Endocrine: Endocrine: Denies fatigue PMFSH Past Medical History Attestation statement: The following information was validated with the patient. Medical History (Updated 12/10/23 @ 01:01 by YARI Acuña) Bronchitis Somnolence, daytime Obesity (BMI 30-39.9) Nausea & vomiting Migraine Syncope Pseudotumor cerebri Kidney calculi Crystal arthropathy Right shoulder injury Kidney tumor COVID-19 vaccine administered Thyroid disease Colon polyp Diverticulosis of colon Bronchial asthma Acid reflux Surgical History Status post excision of lipoma (09/10/23) History of esophagogastroduodenoscopy (EGD) History of surgery on wrist History of hysterectomy Previous section Hx laparoscopic cholecystectomy Hx of gastric bypass (03/12/15) Hx of colonoscopy Family History Family History Father Heart disease History of open heart surgery Mother Heart disease Social History Social History Household Members: None Household Members Other:: alone Are you a primary professional healthcare representative to a significant other at home: No Do you presently have visiting nurse or other home services: No Alcohol intake: never Patient Tobacco Use Status: Former Tobacco user Tobacco use type: Cigarette Smoked in Last 30 Days: No Advance Directives: No Advance Directives Information Provided: No Do you have a plan to hurt others: No Plan service: No Current occupational status: disabled Physical Exam Vital Signs: Vital Signs: Last Vital Signs Temp 97.7 F 12/10/23 00:15 Pulse 73 12/10/23 00:15 Resp 16 12/10/23 00:15 BP 103/67 12/10/23 00:15 Pulse Ox 100 12/10/23 00:15 O2 Del Method Room Air 12/10/23 00:15 BMI result Body Mass Index 32.1 Const: Other: Alert, tearful, anxious Orientation/consciousness: patient oriented x3 Resp: Other: Nonlabored respiration Cardio: Other: Normal peripheral perfusion : Other: Full sensation over perineum Back/Spine/Pelvis: Other: Patient unwilling to move from prone position in bed, unable to palpate the length of her spine Skin: Other: Warm dry no rash Neuro: General: patient oriented x3, no focal motor deficits and CN's II-XI intact bilaterally Extrem: Other: Moves all extremities independently, although we will minimally move the lower extremities secondary to low back pain Psych: Other: Cooperative to some degree, anxious tearful Medications Administered Discontinued Medications Generic Name Dose Route Start Last Admin Trade Name Sid PRN Reason Stop Dose Admin Lorazepam 1 mg 12/09/23 22:33 12/09/23 23:03 Lorazepam 2 Mg/Ml Vial IVPUSH 12/09/23 22:34 1 mg ONCE ONE Administration Morphine Sulfate 4 mg 12/09/23 22:36 12/09/23 23:04 Morphine Sulfate 4 Mg/Ml Cartridge IVPUSH 12/09/23 22:37 4 mg ONCE ONE Administration Protocol Ondansetron HCl 4 mg 12/09/23 22:33 12/09/23 23:02 Ondansetron Hcl 4 Mg/2 Ml Vial IVPUSH 12/09/23 22:34 4 mg ONCE ONE Administration Medical Decision Making Medical Decision Making MDM Narrative: 63-year-old female with a history of morbid obesity, vertigo, chronic low back pain presents after fall. Patient states she was standing on a 3 ft ladder, when she subsequently lost her balance and fell backwards, landing 100 back on the floor. Patient was ambulatory after the fall. Patient complains of posterior head, neck and pain over the entire length of her back. No loss of consciousness, the patient does not use a blood thinner. Denies dizziness, nausea, vomiting. Denies weakness of lower extremities, paresthesia. Problem: Age, obesity, chronic pain History: Per patient I have considered the following differential diagnoses: Fracture, dislocation, intracranial hemorrhage, contusion, cauda equina, musculoskeletal strain Plan: Given the mechanism, I will scan the patient the length of her back, including her head. I am not able to get a good exam as she is not participating in his a bit anxious at this time. We will medicate with morphine, Ativan and Zofran. I have low suspicion for intracranial hemorrhage given she is not altered, she is neurologically intact, she is not actively vomiting. The patient was ambulatory after the fall, I think she has diffuse musculoskeletal strain that has set in since she has been here in the ER waiting to be seen. Thought about cauda equina, however she has no red flag signs symptoms concerning for cord compression. We will obtain screening labs in the event that the patient has sustained an acute injury and require surgical intervention. I have independently reviewed the following tests: Labs: No leukocytosis, not anemic, urine not infected CT brain, cervical spine, thoracic spine, lumbar spine:CT HEAD WITHOUT CONTRAST CT CERVICAL SPINE WITHOUT CONTRAST CT THORACIC SPINE WITHOUT CONTRAST CT LUMBAR SPINE WITHOUT CONTRAST CLINICAL INFORMATION: Trauma. Fall off ladder. Pain. COMPARISON: CT head and cervical spine from 11/19/2022. TECHNIQUE: Contiguous axial imaging was performed from the skull base to vertex without intravenous administration of contrast. Contiguous axial imaging was performed from the upper chest through the skull base without intravenous administration of contrast. Multidetector helical imaging of the thoracic and lumbar spine was obtained without intravenous contrast. Multiple axial reformats and coronal/sagittal reconstructions were created the technologist workstation for review. This CT examination was performed using dose optimization techniques as appropriate, variously including the following: *Automated exposure control. *Adjustment of mA and/or kV according to patient size (this includes techniques or standardized protocols for targeted exams where dose is matched to indication/reason for exam; i.e. extremities or head). *Use of iterative reconstruction technique. DLP: 2738 mGy-cm FINDINGS: Head: There is no evidence of acute intracranial hemorrhage or edematous territorial infarction. Saunders-white matter differentiation is preserved. There is no abnormal attenuation within the brain parenchyma. The ventricles are normal in morphology and size. No evidence for obstructive hydrocephalus. No abnormal mass effect or midline shift. No extra-axial fluid collections. Mild soft tissue edema along the left posterior vertex. No associated acute osseous calvarial abnormalities. Mild mucosal thickening of the paranasal sinuses. The mastoid air cells and middle ear cavities are clear. Cervical Spine: The atlantooccipital and atlantoaxial articulations remain well aligned. Moderate degenerative arthropathy of the atlantodental articulation. Mild reversal the normal cervical lordosis. Otherwise, there is anatomic alignment of the vertebral bodies and posterior elements. Moderate degenerative disc disease from C5-C7. Facet and uncovertebral joint arthropathy leads to osseous encroachment on the neural foramina from C2-C6. No evidence of acute fracture or subluxation. The vertebral body heights are maintained. There is no prevertebral soft tissue swelling. The thyroid gland and remaining cervical soft tissues are within normal limits. The lung apices demonstrate no abnormalities. Thoracic Spine: Normal anatomic alignment. No evidence of acute fracture or traumatic subluxation. The vertebral body heights are maintained. Mild multilevel degenerative disc disease. No suspicious lytic or sclerotic osseous lesions. No significant abnormalities of the paraspinal musculature. Limited evaluation of the intrathoracic structures without significant abnormalities. The descending thoracic aorta is of normal contour and caliber. Moderate degenerative arthropathy of the right shoulder joint with subchondral cyst formation. AXIAL SPINAL LEVELS: Normal annular contours. There is mild to moderate multilevel facet joint arthropathy, most notably in the lower thoracic spine. There is no neural foraminal stenosis. There is no demonstrated spinal canal stenosis. Lumbar Spine: No demonstrated mild left lateral translation of L3 on L4. Otherwise, normal anatomic alignment. No evidence of acute fracture or traumatic subluxation. The vertebral body heights are maintained. The intervertebral disc spaces are maintained. No suspicious lytic or sclerotic osseous lesions. No significant abnormalities of the paraspinal musculature. Changes of prior sleeve gastrectomy and cholecystectomy. Moderate descending and sigmoid diverticulosis. Otherwise, limited of the intra-abdominal structures without significant abnormalities. The abdominal aorta is of normal contour and caliber with mild calcific atherosclerotic disease. AXIAL SPINAL LEVELS: L1-L2: Mild diffuse disc bulge. There is moderate bilateral facet joint arthropathy. There is no neural foraminal stenosis. There is no demonstrated spinal canal stenosis. L2-L3: Mild diffuse disc bulge. There is severe right and moderate left facet joint arthropathy. There is mild bilateral neural foraminal stenosis. There is no demonstrated spinal canal stenosis. L3-L4: Mild diffuse disc bulge. There is severe bilateral facet joint arthropathy. There is mild bilateral neural foraminal stenosis. There appears to be mild spinal canal stenosis. L4-L5: Mild diffuse disc bulge. There is severe right and moderate left facet joint arthropathy. There is moderate right and mild left neural foraminal stenosis. There appears to be mild spinal canal stenosis. L5-S1: Mild diffuse disc bulge. There is severe left and moderate right facet joint arthropathy. There is no neural foraminal stenosis. There is no demonstrated spinal canal stenosis. CT/CT thoracic spine wo IV con IMPRESSION: 1. No evidence of acute intracranial hemorrhage or edematous territorial infarction. 2. No evidence of acute fracture or traumatic subluxation of the cervical, thoracic, or lumbar spine. 3. Mild to moderate multilevel degenerative spondyloarthropathy of the cervical, thoracic, and lumbar spine as described in detail above. Most notably on this limited exam without intrathecal contrast, there appears to be mild spinal canal stenoses at L3-L4 and L4-L5. Electronically signed by: Meek Lange DO 12/09/2023 11:37 PM EDT Lab Data 12/09/23 23:01 12/09/23 23:01 Labs: Lab Results 12/09/23 12/09/23 12/09/23 Range/Units 23:01 23:11 23:14 WBC 8.0 (4.8-10.8) X10*3/uL RBC 4.48 (4.20-5.50) X10*6/uL Hgb 11.7 L (12.0-16.0) g/dl Hct 36.7 L (37.0-47.0) % MCV 81.9 (80.0-98.0) fL MCH 26.1 L (27.0-33.0) pg MCHC 31.9 (31.0-35.0) g/dl RDW 15.9 (11.0-16.0) % Plt Count 277 (160-400) X10*3/uL MPV 9.5 (9.4-12.3) fL Immature Gran % (Auto) 0.1 (0.0-0.4) % Neut % (Auto) 61.3 (45-73) % Lymph % (Auto) 24.6 (20-40) % [place] % (Auto) 12.1 H (2-11) % Eos % (Auto) 1.3 (0-4) % Baso % (Auto) 0.6 (0-2) % Lymph # (Auto) 2.0 (1.2-4.9) X10*3/uL [place] # (Auto) 1.0 (0.1-1.2) X10*3/uL Eos # (Auto) 0.1 (0.0-0.4) X10*3/uL Baso # (Auto) 0.1 (0.0-0.2) X10*3/uL Abs Immat Gran (auto) 0.01 (0.00-0.03) X10*3/uL Absolute Neuts (auto) 4.9 (2.0-8.3) x10*3/uL Absolute Nucleated RBC 0.000 (0.0-0.012) X10*3/uL Nucleated RBC % (auto) 0.0 (0.0-0.2) /100WBC Sodium 139 (135-145) mmol/L Potassium 3.8 (3.3-5.1) mmol/L Chloride 108 (96-108) mmol/L Carbon Dioxide 23 (22-29) mmol/L Anion Gap 12 (12-20) BUN 16 (9-16) mg/dL Creatinine 0.74 (0.5-1.4) mg/dL Estim Creat Clear Calc 76.8 Estimated GFR > 60 POC Glucose 88 (60-115) mg/dL Random Glucose 90 (60-115) mg/dL Calcium 8.7 D (8.4-10.2) mg/dL Magnesium 2.4 (1.6-2.6) mg/dL Total Bilirubin 0.3 (0.0-1.0) mg/dL AST 41 H (5-31) U/L ALT 22 (0-31) U/L Alkaline Phosphatase 71 (39-117) U/L Total Protein 6.8 (6.5-8.0) g/dL Albumin 3.7 (3.5-5.0) g/dL Urine Color Yellow Urine Appearance Clear Urine pH 7.5 (5.0-9.0) Ur Specific [place] 1.020 (1.005-1.025) Urine Protein Negative (Neg-Trace) mg/dL Urine Glucose (UA) Negative (Negative) mg/dL Urine Ketones Negative (Negative) mg/dL Urine Blood Negative (Negative) Urine Nitrite Negative (Negative) Ur Leukocyte Esterase Negative (Negative) Discharge Plan Discharge Clinical Impression: Musculoskeletal strain, Contusion of back Patient Disposition: Home, Self-Care Instructions: Contusion in Adults (ED) Additional Instructions: We obtained CT scans of your brain, neck, mid and low back. There were no acute injuries. You have diffuse musculoskeletal strain with contusion. You should expect that you were going to be extremely painful over the next 2-3 days. See home care instructions. Use [id number] Tylenol 1000 mg taken every 8 hours. Use the methocarbamol, this is a muscle relaxant, as needed for additional pain. To note this medication will cause drowsiness, do not drive or operate machinery while taking the medication. Follow up with your primary care provider as needed. Prescriptions: New methocarbamol 750 mg tablet 1,500 mg PO QID PRN (Reason: pain) Qty: 30 0RF No Action polyethylene glycol 3350 [Miralax] 17 gram/dose powder 17 g PO DAILY Qty: 850 2RF albuterol sulfate [Ventolin HFA] 90 mcg/actuation HFA aerosol inhaler 2 puff PO Q6H PRN (Reason: for wheezing) 30 Days Qty: 18 6RF meclizine [Dramamine Less Drowsy] 25 mg tablet 25 mg PO TID PRN (Reason: dizziness) Qty: 20 0RF perphenazine 4 mg tablet 4 mg PO BID@1200,2100 pyridoxine (vitamin B6) 100 mg tablet 200 mg PO DAILY@1200 ondansetron 4 mg tablet,disintegrating 4 mg PO Q6H PRN (Reason: nausea and vomiting) Qty: 10 0RF sucralfate 1 gram tablet 1 g PO TID PRN (Reason: upper abdominal pain) Qty: 30 0RF ondansetron 4 mg tablet,disintegrating 4 mg PO Q8H PRN (Reason: nausea and vomiting) Qty: 10 0RF cetirizine 10 mg tablet 10 mg PO DAILY PRN (Reason: allergy symptoms) Qty: 30 0RF ibuprofen 800 mg tablet 800 mg PO Q8H PRN (Reason: pain) Qty: 30 0RF doxepin 75 mg capsule 75 mg PO BEDTIME estazolam 1 mg tablet 3 mg PO BEDTIME alendronate 70 mg tablet 70 mg PO TU cholecalciferol (vitamin D3) 25 mcg (1,000 unit) tablet 25 mcg PO DAILY omeprazole 40 mg capsule,delayed release(DR/EC) 40 mg PO DAILY@0630 lidocaine 5 % adhesive patch,medicated 1 patch topical DAILY venlafaxine 25 mg tablet 25 mg PO DAILY@1200 magnesium oxide 400 mg (241.3 mg magnesium) tablet 400 mg PO DAILY@1200 levothyroxine 100 mcg tablet 100 mcg PO DAILY@0600 Wegovy 1 mg/0.5 mL pen injector 1 mg subcut DAILY fluticasone propion-salmeterol [Advair Diskus] 250-50 mcg/dose blister with device 1 inh inhalation BID 30 Days Qty: 60 5RF albuterol sulfate 2.5 mg /3 mL (0.083 %) solution for nebulization 2.5 mg inhalation Q4H PRN (Reason: shortness of breath or wheezing) 30 Days Qty: 180 3RF Print Language: English
[2023-12-10] MEDS: Ketorolac Tromethamine 15 MG/ML VIAL IVPUSH (01:45)
[2023-12-10] MEDS: methocarbamoL 750 MG TABLET PO (01:45)
[2023-12-10 02:20] VITALS: BP 103/67; PULSE 73; RESP 16; TEMP 36.5; O2SAT 100
== END 2023-12-10 02:23 | disposition home or self-care (01) ==
PROVIDERS: Physician Assistant Medical; Emergency Provider Emergency Medicine; PCP Internal Medicine Geriatric Medicine
DX: S30.0XXA Contusion of lower back and pelvis, initial encounter (principal); M79.10 Myalgia, unspecified site; M54.6 Pain in thoracic spine; R51.9 Headache, unspecified; M54.2 Cervicalgia; Y93.89 Activity, other specified; W11.XXXA Fall on and from ladder, initial encounter; Y92.89 Other specified places as the place of occurrence of the external cause; Y99.8 Other external cause status; Z79.899 Other long term (current) drug therapy; Z87.891 Personal history of nicotine dependence
CPT/HCPCS: 36415; 70450; 72125; 72128; 72131; 80053; 81003; 82947; 83735; 85025; 96374; 96375; 99284; 99285; J1885; J2060; J2270; J2405

== ENCOUNTER 2023-12-17 12:50 | Emergency (ER) | payer OTHER, SELFPAY ==
--- NOTE | ~2023-12-17 | XR_ITS ---
EXAMINATION: XR KNEE, RIGHT CLINICAL INFORMATION: Atraumatic pain COMPARISON: None available. TECHNIQUE: Four views of the right knee. FINDINGS: There is moderate patellofemoral and medial compartment joint space narrowing with subchondral sclerosis. No joint effusion. Soft tissues are unremarkable. No acute fractures. XR/XR knee RT 4V IMPRESSION: Moderate degenerative disease of the right knee. Electronically signed by: Hui Ludwig MD 12/17/2023 04:00 PM EDT
[2023-12-17 12:54] VITALS: BP 111/60; PULSE 82; RESP 18; TEMP 37; O2SAT 100; BMI 29.0
--- NOTE | 2023-12-17 12:55 | ED_ITS ---
HPI - Extremity Injury (Lower) General Chief Complaint: Extremity Injury, Lower Stated Complaint: knee out of place ? Time Seen by Provider: 12/17/23 15:17 Source: patient Mode of arrival: ambulatory Limitations: no limitations History of Present Illness ED Provider: Deny LIM HPI Narrative: 63 yold female with pmh of gastric bypass, dizziness, vertiog, psuedtumor cerebri, and kidney stones S the ED for right knee pain. Patient states she was walking took a step and felt like her right knee move out of place. Patient states since then having right knee pain. Patient denies any popping sound in right knee but has had issues with the knee in the past. Patient denies any hitting of the head, loss of consciousness, lower extremity swelling, pitting edema, calf pain, chest pain, shortness of breath. Patient states no other complaints. Related Data Home Medications ?Medication ?Instructions ?Recorded ?Confirmed doxepin 75 mg capsule 75 mg PO BEDTIME 11/22/19 12/06/23 estazolam 1 mg tablet 3 mg PO BEDTIME 06/06/20 12/06/23 alendronate 70 mg tablet 70 mg PO TU 06/03/22 12/06/23 cholecalciferol (vitamin D3) 25 25 mcg PO DAILY 06/03/22 12/06/23 mcg (1,000 unit) tablet perphenazine 4 mg tablet 4 mg PO BID@1200,2100 06/04/22 12/06/23 levothyroxine 100 mcg tablet 100 mcg PO DAILY@0600 10/01/22 12/06/23 lidocaine 5 % topical patch 1 patch topical DAILY 10/01/22 12/06/23 magnesium oxide 400 mg (241.3 mg 400 mg PO DAILY@1200 10/01/22 12/06/23 magnesium) tablet omeprazole 40 mg capsule,delayed 40 mg PO DAILY@0630 10/01/22 12/06/23 release venlafaxine 25 mg tablet 25 mg PO DAILY@1200 10/01/22 12/06/23 pyridoxine (vitamin B6) 100 mg 200 mg PO DAILY@1200 11/27/22 12/06/23 tablet semaglutide (weight loss) 1 mg/0.5 1 mg subcut DAILY 08/11/23 12/06/23 mL subcutaneous pen injector (Oren) Previous Rx's ?Medication ?Instructions ?Recorded meclizine 25 mg tablet (Dramamine 25 mg PO TID PRN dizziness #20 tabs 12/19/20 Less Drowsy) ondansetron 4 mg disintegrating 4 mg PO Q8H PRN nausea and 09/10/22 tablet vomiting #10 tabs ondansetron 4 mg disintegrating 4 mg PO Q6H PRN nausea and 04/16/23 tablet vomiting #10 tabs sucralfate 1 gram tablet 1 g PO TID PRN upper abdominal 04/16/23 pain #30 tabs cetirizine 10 mg tablet 10 mg PO DAILY PRN allergy 06/04/23 symptoms #30 tabs albuterol sulfate 2.5 mg/3 mL 2.5 mg (3 mL) inhalation Q4H PRN 08/11/23 (0.083 %) solution for nebulization shortness of breath or wheezing 30 days #180 mL fluticasone 250 mcg-salmeterol 50 1 inh inhalation BID ASTHMA 30 08/11/23 mcg/dose blistr powdr for days #60 ea inhalation (Advair Diskus) polyethylene glycol 3350 17 17 g PO DAILY #850 grams 08/26/23 gram/dose oral powder (Miralax) ibuprofen 800 mg tablet 800 mg PO Q8H PRN pain #30 tabs 09/10/23 albuterol sulfate 90 mcg/actuation 2 puff PO Q6H PRN for wheezing 30 11/01/23 aerosol inhaler (Ventolin HFA) days #18 grams methocarbamol 750 mg tablet 1,500 mg (2 x 750 mg) PO QID PRN 12/10/23 pain #30 tabs acetaminophen 325 mg capsule 650 mg (2 x 325 mg) PO Q6H PRN 12/17/23 (Tylenol) pain #21 caps prednisone 20 mg tablet 40 mg (2 x 20 mg) PO DAILY 5 days 12/17/23 #10 tabs Allergies Allergy/AdvReac Type Severity Reaction Status Date / Time nalbuphine [From Nubain] Allergy Severe Anaphylaxis Verified 12/17/23 12:56 Review of Systems 2 Review of Systems: right knee pain Yes all other systems are reviewed and are negative PMFSH Past Medical History Medical History (Updated 12/18/23 @ 00:01 by Jessy Ocampo) Bronchitis Somnolence, daytime Obesity (BMI 30-39.9) Nausea & vomiting Migraine Syncope Pseudotumor cerebri Kidney calculi Crystal arthropathy Right shoulder injury Kidney tumor COVID-19 vaccine administered Thyroid disease Colon polyp Diverticulosis of colon Bronchial asthma Acid reflux Surgical History Status post excision of lipoma (09/10/23) History of esophagogastroduodenoscopy (EGD) History of surgery on wrist History of hysterectomy Previous section Hx laparoscopic cholecystectomy Hx of gastric bypass (03/12/15) Hx of colonoscopy Family History Family History Father Heart disease History of open heart surgery Mother Heart disease Social History Social History Household Members: None Household Members Other:: alone Are you a primary care support representative to a significant other at home: No Do you presently have visiting nurse or other home services: No Alcohol intake: never Patient Tobacco Use Status: Former Tobacco user Tobacco use type: Cigarette Advance Directives: No Advance Directives Information Provided: Yes Do you have a plan to hurt others: No Plan service: No Current occupational status: disabled Physical Exam 2 Vital Signs: Vital Signs: Last Vital Signs Temp 98.3 F 12/17/23 17:49 Pulse 72 12/17/23 17:49 Resp 20 12/17/23 17:49 BP 133/76 12/17/23 17:49 Pulse Ox 98 12/17/23 17:49 O2 Del Method Room Air 12/17/23 17:49 BMI result Body Mass Index 29.0 Const: General: cooperative, healthy appearing, comfortable, no acute distress, well developed, alert, awake and Physically active HEENT: Head: Yes normal to inspection, Yes No palpable skull fracture present, Yes normocephalic, Yes atraumatic and No abrasion Eyes: General: appearance normal, both eyes and all related structures Neck: Neck: Yes normal visual inspection, Yes full ROM, Yes no lymphadenopathy, Yes no meningeal signs, Yes trachea midline, Yes supple, No anterior neck swelling and No tender Chest: Chest palpation & inspection: normal inspection of the chest and normal palpation of entire chest wall Resp: Effort & Inspection: normal respiratory effort and able to speak in complete sentences Auscultation: clear to auscultation bilaterally Cardio: Jugular venous distension: no JVD Heart sounds: S1 normal heart sound present and S2 normal heart sound present GI: Inspection: Yes normal to inspection Palpation (GI): Soft to palpation, not firm, nontender, no guarding and not rigid : General: No CVA tenderness and Yes no CVA tenderness Back/Spine/Pelvis: Back: no CVA tenderness, No CVA tenderness and No back tenderness Skin: General skin exam: no rashes or lesions noted, elasticity normal and turgor normal Neuro: General: gait normal, tone normal, moves all extremities, Normal light touch and pain sensation, no meningeal signs, no focal motor deficits, CN's II- XI intact bilaterally and normal sensation to monofilament Extrem: General: Yes normal to inspection, Yes full ROM and Yes capillary refill normal Knee images: 1. Positive for tenderness on palpation. Negative crepitus, ecchymosis, deformity, erythema, or stiffness. Negative for red streaks. Rest of extremity normal. Motor/neuro/vascular exam intact. 2. Positive for tenderness on palpation. Negative crepitus, ecchymosis, deformity, erythema, or stiffness. Negative for red streaks. Rest of extremity normal. Motor/neuro/vascular exam intact. Psych: Appearance: grossly normal, well kempt and not disheveled Course Course Course Narrative: This is a Rapid Medical Examination (RME) performed by Loreta Bourne PA-C in triage. Full HPI, ROS, assessment and treatment plan per primary provider in the Main ED. 63 yo female hx of asthma, benign renal tumor, migraine, hypothyroid, GERD, diverticulosis, colonic polyps, pseudotumor cerebri, gastric bypass here for eval of right knee pain beginning today. reports concern her knee is dislocated. no injury/ traum/ fall. presents in knee brace. reports hx of right knee dislocation 2-3 years ago. Plan: xr Medications Administered Discontinued Medications Generic Name Dose Route Start Last Admin Trade Name Freq PRN Reason Stop Dose Admin Ketorolac Tromethamine 30 mg 12/17/23 16:29 12/17/23 17:23 Ketorolac Tromethamine 30 Mg/Ml Vial IM 12/17/23 16:30 30 mg ONCE ONE Administration Prednisone 40 mg 12/17/23 16:29 12/17/23 17:26 Prednisone 20 Mg Tablet PO 12/17/23 16:30 40 mg ONCE ONE Administration Medical Decision Making Medical Decision Making MDM Narrative: 63-year-old female presents to ED for right knee pain. X-ray shows severe arthritis. Extremity exam negative for signs of DVT, cellulitis, compartment syndrome, fracture, necrotizing fasciitis,septic joint, or arterial occlusion. Not suspecting septic joint. Patient requesting crutches. Patient informed to follow up with primary care provider for MRI and re-evaluation. Patient explained worrisome signs and informed to return to the ED immediately Differential Diagnosis Differential Diagnoses: The differential diagnosis associated with the presentation includes (DVT, cellulitis, fracture, septic joint, meniscus tear) Admission/Observation Consideration of admission/observation: Escalation of care including admission/observation considered Independent Interpretation I performed an independent interpretation of an: Plain X-Ray Radiology Impression Discussion of test interpretation with radiology: I have reviewed the radiologist's reading. Independent Historian Clinical information obtained from an independent historian. History obtained from or confirmed by: Other (Patient) External Record Review External record reviewed: Other (Prior visits) Prescription Management I considered prescription management with: Pain Medication Discharge Plan Discharge Clinical Impression: Arthritis of right knee Patient Disposition: Home, Self-Care Instructions: Osteoarthritis (ED) Additional Instructions: Recommend follow-up with primary care provider, and orthopedics. You may get an MRI to rule out any possible meniscus tear due to knee pain after awkward movement/walking. Return to the ED immediately for any swelling, redness, calf pain, bluish black discoloration, chest pain, shortness of breath, hotness, coldness, red streaks, or any other concerning symptoms. FINDINGS: There is moderate patellofemoral and medial compartment joint space narrowing with subchondral sclerosis. No joint effusion. Soft tissues are unremarkable. No acute fractures. XR/XR knee RT 4V IMPRESSION: Moderate degenerative disease of the right knee. Electronically signed by: Hui Ludwig MD 12/17/2023 04:00 PM EDT Prescriptions: New prednisone 20 mg tablet 40 mg PO DAILY 5 Days Qty: 10 0RF acetaminophen [Tylenol] 325 mg capsule 650 mg PO Q6H PRN (Reason: pain) Qty: 21 0RF No Action polyethylene glycol 3350 [Miralax] 17 gram/dose powder 17 g PO DAILY Qty: 850 2RF albuterol sulfate [Ventolin HFA] 90 mcg/actuation HFA aerosol inhaler 2 puff PO Q6H PRN (Reason: for wheezing) 30 Days Qty: 18 6RF meclizine [Dramamine Less Drowsy] 25 mg tablet 25 mg PO TID PRN (Reason: dizziness) Qty: 20 0RF perphenazine 4 mg tablet 4 mg PO BID@1200,2100 pyridoxine (vitamin B6) 100 mg tablet 200 mg PO DAILY@1200 ondansetron 4 mg tablet,disintegrating 4 mg PO Q6H PRN (Reason: nausea and vomiting) Qty: 10 0RF sucralfate 1 gram tablet 1 g PO TID PRN (Reason: upper abdominal pain) Qty: 30 0RF methocarbamol 750 mg tablet 1,500 mg PO QID PRN (Reason: pain) Qty: 30 0RF ondansetron 4 mg tablet,disintegrating 4 mg PO Q8H PRN (Reason: nausea and vomiting) Qty: 10 0RF cetirizine 10 mg tablet 10 mg PO DAILY PRN (Reason: allergy symptoms) Qty: 30 0RF ibuprofen 800 mg tablet 800 mg PO Q8H PRN (Reason: pain) Qty: 30 0RF doxepin 75 mg capsule 75 mg PO BEDTIME estazolam 1 mg tablet 3 mg PO BEDTIME alendronate 70 mg tablet 70 mg PO TU cholecalciferol (vitamin D3) 25 mcg (1,000 unit) tablet 25 mcg PO DAILY omeprazole 40 mg capsule,delayed release(DR/EC) 40 mg PO DAILY@0630 lidocaine 5 % adhesive patch,medicated 1 patch topical DAILY venlafaxine 25 mg tablet 25 mg PO DAILY@1200 magnesium oxide 400 mg (241.3 mg magnesium) tablet 400 mg PO DAILY@1200 levothyroxine 100 mcg tablet 100 mcg PO DAILY@0600 Wegovy 1 mg/0.5 mL pen injector 1 mg subcut DAILY fluticasone propion-salmeterol [Advair Diskus] 250-50 mcg/dose blister with device 1 inh inhalation BID 30 Days Qty: 60 5RF albuterol sulfate 2.5 mg /3 mL (0.083 %) solution for nebulization 2.5 mg inhalation Q4H PRN (Reason: shortness of breath or wheezing) 30 Days Qty: 180 3RF Referrals: [facility] Orthopedic Surgeons [Provider Group] (Severe right knee arthritis. Possible meniscus tear) Interventions: ED Discharge Assessment Last Done: 12/17/23 17:49 Discharge Date/Time: 12/17/23 17:50 Print Language: Armenian
[2023-12-17 16:42] VITALS: BP 133/76; PULSE 72; RESP 20; TEMP 36.8; O2SAT 98
[2023-12-17] MEDS: Ketorolac Tromethamine 30 MG/ML VIAL IM (17:23)
[2023-12-17] MEDS: predniSONE 20 MG TABLET 40 MG PO (17:26)
[2023-12-17 17:49] VITALS: BP 133/76; PULSE 72; RESP 20; TEMP 36.8; O2SAT 98
== END 2023-12-17 17:50 | disposition home or self-care (01) ==
PROVIDERS: Emergency Provider Emergency Medicine; PCP Internal Medicine Geriatric Medicine
DX: M17.11 Unilateral primary osteoarthritis, right knee (principal); Z79.899 Other long term (current) drug therapy; Z87.891 Personal history of nicotine dependence
CPT/HCPCS: 73564; 96372; 99283; 99284; J1885

== ENCOUNTER 2024-01-24 09:22 | Outpatient (AMB) | payer OTHER, SELFPAY ==
--- NOTE | 2024-01-24 09:43 | A.OFFVIS_ITS ---
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 Patient reports ongoing pain for many years and she has been noticing her pain is getting worse. Patient has had a fall and she is unsure if she fell on her knees. She states that her pain is all over her knee and she is requesting a knee brace. Patient has tried and failed Tylenol and lidocane patches wit no relief. Allergies nalbuphine [From Nubain] Allergy (Severe, Verified 01/24/24 09:49) Anaphylaxis Medication List - Last Reconciled 01/24/24 by Ko Villegas PA-C acetaminophen (Tylenol) 650 mg (2 x 325 mg) PO Q6H PRN albuterol sulfate 90 mcg/actuation (Ventolin HFA) 2 puffs PO Q6H PRN 30 days albuterol sulfate 2.5 mg (3 mL) inhalation Q4H PRN 30 days alendronate 70 mg PO TU cetirizine 10 mg PO DAILY PRN cholecalciferol (vitamin D3) 25 mcg PO DAILY doxepin 75 mg PO BEDTIME estazolam 3 mg PO BEDTIME fluticasone propion-salmeterol 250-50 mcg/dose (Advair Diskus) 1 inh inhalation BID 30 days ibuprofen 800 mg PO Q8H PRN levothyroxine 100 mcg PO DAILY@0600 lidocaine 5% 1 patch topical DAILY magnesium oxide 400 mg PO DAILY@1200 meclizine (Dramamine Less Drowsy) 25 mg PO TID PRN methocarbamol 1,500 mg (2 x 750 mg) PO QID PRN omeprazole 40 mg PO DAILY@0630 ondansetron 4 mg PO Q8H PRN ondansetron 4 mg PO Q6H PRN perphenazine 4 mg PO BID@1200,2100 polyethylene glycol 3350 (Miralax) 17 grams PO DAILY prednisone 40 mg (2 x 20 mg) PO DAILY 5 days pyridoxine (vitamin B6) 200 mg PO DAILY@1200 semaglutide (weight loss) (Wegovy) 1 mg subcut DAILY sucralfate 1 g PO TID PRN venlafaxine 25 mg PO DAILY@1200 HPI HPI 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 She reports she had a fall and she is unsure if she fell on her knee. She also had a dislocation in the past. She currently states she has worsening pain in her right knee that is aggravated with stairs and prolonged walking. She also reports her knee collapses a lot where she has to use an immobilizer to help. She has tried Tylenol and lidocaine patches without benefits. She also had physical therapy in the past for her knee. [facility] Medical History (Updated 01/24/24 @ 10:26 by Ko Villegas PA-C) Bronchitis Somnolence, daytime Obesity (BMI 30-39.9) Nausea & vomiting Migraine Syncope Pseudotumor cerebri Kidney calculi Crystal arthropathy Right shoulder injury Kidney tumor COVID-19 vaccine administered Thyroid disease Colon polyp Diverticulosis of colon Bronchial asthma Acid reflux Surgical History Status post excision of lipoma (09/10/23) History of esophagogastroduodenoscopy (EGD) History of surgery on wrist History of hysterectomy Previous section Hx laparoscopic cholecystectomy Hx of gastric bypass (03/12/15) Hx of colonoscopy Family History Father Heart disease History of open heart surgery Mother Heart disease Social History Household Members: None Household Members Other:: alone Are you a primary primary care sales representative to a significant other at home: No Do you presently have visiting nurse or other home services: No Alcohol intake: never Patient Tobacco Use Status: Former Tobacco user Tobacco use type: Cigarette service: No Current occupational status: disabled Review of Systems Const All systems reviewed & are unremarkable except as noted in HPI and below Physical Exam Const General: cooperative, healthy appearing, comfortable, no acute distress, well developed and alert Orientation/consciousness: patient oriented x3 HEENT Head: Yes normal to inspection, Yes normocephalic and Yes atraumatic Eyes General: appearance normal, both eyes and all related structures Resp Effort & Inspection: normal respiratory effort and able to speak in complete sentences Cardio Rate: regular rate Peripheral pulses: Peripheral pulses 2+ throughout GI Palpation (GI): Soft to palpation Skin Lesions: no lesions Rashes: no rashes Neuro General: patient oriented x3 Extrem Other: Right knee: Skin intact, no erythema or joint effusion. Tenderness along the medial and lateral joint line. Full ROM with crepitus. Negative Kiki?s. No ligamentous laxity. NVI. Results Reviewed Results Reviewed: Xrays were obtained in the office today and personally reviewed by me of the right knee show moderate to severe oa Assessment & Plan Assessment & Plan (1) Osteoarthritis of right knee: Code(s): M17.11 - Unilateral primary osteoarthritis, right knee Category: Medical Plan We had a lengthy discussion about the extent of her osteoarthritis and options available which include surgical intervention. She is interested in pursuing Total knee arthroplasty to improve her functional capacity and daily activities. I explained to her the procedure in detail, the hospital stays and details about post op rehab and precautions. She is interested in meeting with Dr Yoel ortiz to discuss further. Orders: Orders XR knee LT 1V Today M25.562 - Pain in left knee XR knee standing BI Today M25.561 - Pain in right knee, M25.562 - Pain in left knee XR knee RT 1V Today M25.561 - Pain in right knee XR knee RT 2V Today M25.569 - Pain in unspecified knee Patient Instructions: Scribed for Ko Villegas PA-C, by Armand Davidson medical coder, on 01/24/2024 at 9:45 AM EST.? I, Ko Villegas PA-C, have personally reviewed and agree with the information entered by the scribe. Coding Level of Care Code New Pt Level 4 (28632) Complex EM visit Add On G2211 Diagnoses Osteoarthritis of right knee M17.11
== END 2024-01-24 10:27 | disposition home or self-care (01) ==
PROVIDERS: PCP Internal Medicine Geriatric Medicine; Visit Provider Physician Assistant
DX: M17.11 Unilateral primary osteoarthritis, right knee (principal)
CPT/HCPCS: 99204; G2211

== ENCOUNTER 2024-01-24 09:35 | Outpatient (REF) | payer OTHER, SELFPAY ==
--- NOTE | ~2024-01-24 | XR_ITS ---
EXAMINATION: XR LEFT KNEE CLINICAL INFORMATION: Pain in left knee M25.562. COMPARISON: None available. TECHNIQUE: AP standing view of the left knee. FINDINGS: Medial compartment narrowing with mild degenerative sclerosis and marginal osteophytes. Small marginal osteophytes in the lateral compartment. XR/XR knee LT 1V IMPRESSION: Mild/moderate medial and mild lateral compartment osteoarthritis. Electronically signed by: Agusto Wren MD 03/02/2024 08:37 AM [facility] [place]
--- NOTE | ~2024-01-24 | XR_ITS ---
EXAMINATION: XR RIGHT KNEE CLINICAL INFORMATION: Pain in unspecified knee M25.569. COMPARISON: XR Right knee 12/17/2023 TECHNIQUE: AP standing and sunrise views of the right knee. FINDINGS: Severe medial and mild patellofemoral/lateral compartment osteoarthritis. XR/XR knee RT 2V IMPRESSION: Severe medial and mild patellofemoral/lateral compartment osteoarthritis. Electronically signed by: Agusto Wren MD 03/02/2024 08:38 AM [facility] [place], [place]
== END 2024-01-24 09:36 | disposition home or self-care (01) ==
LOC: HO.HOSX 09:35
PROVIDERS: Visit Provider Physician Assistant
DX: M25.562 Pain in left knee (principal); M25.561 Pain in right knee; M17.0 Bilateral primary osteoarthritis of knee
CPT/HCPCS: 73560; 99202

== ENCOUNTER 2024-01-28 10:11 | Emergency (ER) | payer OTHER, SELFPAY ==
--- NOTE | ~2024-01-28 | XR_ITS ---
EXAMINATION: XR CHEST CLINICAL INFORMATION: weakness, cough COMPARISON: X-ray dated December 01, 2023. TECHNIQUE: 2 views of the chest were obtained. FINDINGS: No consolidation, pleural effusion or pneumothorax. Cardiomediastinal silhouette is normal in size. Multilevel thoracic spondylosis. Degenerative changes in the shoulders. Vascular clips right upper quadrant abdomen. XR/XR chest 2V IMPRESSION: No acute airspace disease. Spondylosis, thoracic spine. Status post cholecystectomy likely laparoscopic. Electronically signed by: Brennon Carrillo MD 01/28/2024 01:21 PM [facility]
[2024-01-28 10:25] VITALS: BP 138/84; PULSE 86; O2SAT 99
[2024-01-28 11:08] VITALS: BP 107/79; PULSE 77; RESP 18; TEMP 36.6; O2SAT 98; BMI 29.8
--- NOTE | 2024-01-28 11:10 | ED_ITS ---
HPI - General Adult General Chief complaint: General Medical Stated complaint: WEAKNESS NAUSEA Time Seen by Provider: 01/28/24 15:00 Source: patient Mode of arrival: ambulatory Limitations: no limitations History of Present Illness ED Provider: RUBEN REINOSO PA-C HPI narrative: 63 year old female with pmhx significant for obesity s/p gastrc bypass, vertigo, arthritis, GERD, and asthma presents to the ED today for evaluation of weakness, myalgias, nasal congestion, cough productive of yellow sputum, and headaches x24 hours. No know sick contacts. Reports negative covid test at home. Denies fever, sore throat, SOB, wheezing, chest pain, abd pain, flank pain, dysuria, hematuria. Related Data Home Medications ?Medication ?Instructions ?Recorded ?Confirmed doxepin 75 mg capsule 75 mg PO BEDTIME 11/22/19 01/24/24 estazolam 1 mg tablet 3 mg PO BEDTIME 06/06/20 01/24/24 alendronate 70 mg tablet 70 mg PO TU 06/03/22 01/24/24 cholecalciferol (vitamin D3) 25 25 mcg PO DAILY 06/03/22 01/24/24 mcg (1,000 unit) tablet perphenazine 4 mg tablet 4 mg PO BID@1200,2100 06/04/22 01/24/24 levothyroxine 100 mcg tablet 100 mcg PO DAILY@0600 10/01/22 01/24/24 lidocaine 5 % topical patch 1 patch topical DAILY 10/01/22 01/24/24 magnesium oxide 400 mg (241.3 mg 400 mg PO DAILY@1200 10/01/22 01/24/24 magnesium) tablet omeprazole 40 mg capsule,delayed 40 mg PO DAILY@0630 10/01/22 01/24/24 release venlafaxine 25 mg tablet 25 mg PO DAILY@1200 10/01/22 01/24/24 pyridoxine (vitamin B6) 100 mg 200 mg PO DAILY@1200 11/27/22 01/24/24 tablet semaglutide (weight loss) 1 mg/0.5 1 mg subcut DAILY 08/11/23 01/24/24 mL subcutaneous pen injector (Oren) Previous Rx's ?Medication ?Instructions ?Recorded meclizine 25 mg tablet (Dramamine 25 mg PO TID PRN dizziness #20 tabs 12/19/20 Less Drowsy) ondansetron 4 mg disintegrating 4 mg PO Q8H PRN nausea and 09/10/22 tablet vomiting #10 tabs ondansetron 4 mg disintegrating 4 mg PO Q6H PRN nausea and 04/16/23 tablet vomiting #10 tabs sucralfate 1 gram tablet 1 g PO TID PRN upper abdominal 04/16/23 pain #30 tabs cetirizine 10 mg tablet 10 mg PO DAILY PRN allergy 06/04/23 symptoms #30 tabs albuterol sulfate 2.5 mg/3 mL 2.5 mg (3 mL) inhalation Q4H PRN 08/11/23 (0.083 %) solution for nebulization shortness of breath or wheezing 30 days #180 mL fluticasone 250 mcg-salmeterol 50 1 inh inhalation BID ASTHMA 30 08/11/23 mcg/dose blistr powdr for days #60 ea inhalation (Advair Diskus) polyethylene glycol 3350 17 17 g PO DAILY #850 grams 08/26/23 gram/dose oral powder (Miralax) ibuprofen 800 mg tablet 800 mg PO Q8H PRN pain #30 tabs 09/10/23 albuterol sulfate 90 mcg/actuation 2 puff PO Q6H PRN for wheezing 30 11/01/23 aerosol inhaler (Ventolin HFA) days #18 grams methocarbamol 750 mg tablet 1,500 mg (2 x 750 mg) PO QID PRN 12/10/23 pain #30 tabs acetaminophen 325 mg capsule 650 mg (2 x 325 mg) PO Q6H PRN 12/17/23 (Tylenol) pain #21 caps prednisone 20 mg tablet 40 mg (2 x 20 mg) PO DAILY 5 days 12/17/23 #10 tabs azithromycin 250 mg tablet See Rx Instructions PO .COMPLEX #6 01/28/24 tabs benzonatate 100 mg capsule 100 mg PO BID PRN cough #14 caps 01/28/24 prednisone 20 mg tablet 40 mg (2 x 20 mg) PO DAILY 5 days 01/28/24 #10 tabs Allergies Allergy/AdvReac Type Severity Reaction Status Date / Time nalbuphine [From Nubain] Allergy Severe Anaphylaxis Verified 01/28/24 11:10 Review of Systems 2 Review of Systems: Constitutional: No fever, chills, fatigue, night sweats, weight changes ENT/Mouth: No ear pain, hearing loss, sinus pain, rhinorrhea, sore throat +nasal congestion Eyes: No eye pain, swelling, redness, vision changes, discharge Cardio: No chest pain, palpitations, GOMEZ, orthopnea, peripheral edema Pulm: No SOB, wheezing, dyspnea, hemoptysis, +productive cough GI: No nausea, vomiting, hematemesis, abdominal pain, diarrhea, constipation, hematochezia, melena : No irregular bleeding, dysuria, frequency, urgency, hesitancy, hematuria, flank pain, urinary flow changes, urinary incontinence or retention MSK: No back pain, neck pain, joint pain, +myalgias Skin: No lesions, rashes Neuro: No weakness, numbness, paresthesias, LOC, dizziness, +headache Psych: No anxiety/panic, depression, SI/HI, AH/VH All other systems reviewed and are negative. [facility] Past Medical History Attestation statement: The following information was validated with the patient. Source: old records reviewed and nursing notes reviewed Medical History Bronchitis Somnolence, daytime Obesity (BMI 30-39.9) Nausea & vomiting Migraine Syncope Pseudotumor cerebri Kidney calculi Crystal arthropathy Right shoulder injury Kidney tumor COVID-19 vaccine administered Thyroid disease Colon polyp Diverticulosis of colon Bronchial asthma Acid reflux Surgical History Status post excision of lipoma (09/10/23) History of esophagogastroduodenoscopy (EGD) History of surgery on wrist History of hysterectomy Previous section Hx laparoscopic cholecystectomy Hx of gastric bypass (03/12/15) Hx of colonoscopy Family History Family History Father Heart disease History of open heart surgery Mother Heart disease Social History Social History Household Members: None Household Members Other:: alone Are you a primary child care centre director to a significant other at home: No Do you presently have visiting nurse or other home services: No Alcohol intake: never Patient Tobacco Use Status: Former Tobacco user Tobacco use type: Cigarette Advance Directives: Yes Advance Directives Information Provided: No Advance Directives on File: No service: No Current occupational status: disabled Physical Exam ED Vital Signs: Vital Signs - 24 hr 01/28/24 11:08 Temperature 97.9 F Pulse Rate 77 Respiratory Rate 18 Blood Pressure 107/79 Pulse Oximetry 98 Oxygen Delivery Method Room Air BMI result Body Mass Index 29.8 vital signs stable, afebrile General: Well appearing, in no acute distress. Skin: Warm, dry, intact. No rashes or lesions. Head: Normocephalic, atraumatic. EENT: Hearing is intact b/l. Conjunctiva clear. PERRLA. EOM intact. Moist mucous membranes.? Neck: Supple without LAD Cardiac: Chest wall symmetric. RRR Lungs: Normal respiratory effort without accessory muscle use. CTA bilaterally. No rales, rhonchi, or wheezes.? Abdomen: Soft, non-tender, non-distended Ext: Upper and lower extremities atraumatic, without tenderness, deformity, swelling or erythema Neuro: AOx3. Normal speech. Ambulating with steady gait. Psych: Appropriate mood and affect. Responds appropriately to questions. Course Course Course Narrative: RME, this is a rapid medical exam performed by Randall Boothe please refer to primary provider for complete H&P- 63 old female with past medical history significant obesity, vertigo, gastric bypass, arthritis, GERD, asthma presents for of weakness and nausea. Patient was seen by her PCP earlier today for headache, congestion, weakness and nausea. Onset was last night. She was tested for influenza, COVID and RSV. She was reportedly negative feels like she did when she had COVID. Plan for repeat viral testing, chest x-ray basic labs. Reevaluation(s) Reevaluation #1: CBC without leukocytosis or left shift. No anemia, h&h stable. Chemistry without acute electrolyte abnormality requiring intervention. She tested negative for covid, flu, rsv. CXR does not demonstrate pneumonia. Symptoms likely due to bronchitis. Will send prednisone, zpack, and tessalon to pharmacy for treatment.?Patient has remained stable throughout ED visit today. Discussed worrisome signs and symptoms and when to return to the ED. All questions answered at this time. Patient is agreeable with disposition and stable for discharge. Medical Decision Making Medical Decision Making MDM Narrative: 63 year old female with pmhx significant for obesity s/p gastrc bypass, vertigo, arthritis, GERD, and asthma presents to the ED today for evaluation of weakness, myalgias, nasal congestion, cough productive of yellow sputum, and headaches x24 hours. Vital signs stable, afebrile. she is nontoxic appearing and in NAD. Differential diagnosis includes viral syndrome, bronchitis, pneumonia, sinusitis Plan for viral serology, cxr, re-evaluation. Differential Diagnosis Differential Diagnoses: The differential diagnosis associated with the presentation includes as above. Admission/Observation not indicated Lab Data MDM Lab Attestation statement: I reviewed the patient's lab results. as above. 01/28/24 11:37 01/28/24 11:36 Labs: Lab Results 01/28/24 01/28/24 01/28/24 Range/Units 11:36 11:37 15:55 WBC 6.4 (4.8-10.8) X10*3/uL RBC 4.86 (4.20-5.50) X10*6/uL Hgb 12.9 (12.0-16.0) g/dl Hct 40.0 (37.0-47.0) % MCV 82.3 (80.0-98.0) fL MCH 26.5 L (27.0-33.0) pg MCHC 32.3 (31.0-35.0) g/dl RDW 15.4 (11.0-16.0) % Plt Count 302 (160-400) X10*3/uL MPV 9.4 (9.4-12.3) fL Immature Gran % (Auto) 0.2 (0.0-0.4) % Neut % (Auto) 66.0 (45-73) % Lymph % (Auto) 19.8 L (20-40) % [place] % (Auto) 10.5 (2-11) % Eos % (Auto) 2.7 (0-4) % Baso % (Auto) 0.8 (0-2) % Lymph # (Auto) 1.3 (1.2-4.9) X10*3/uL [place] # (Auto) 0.7 (0.1-1.2) X10*3/uL Eos # (Auto) 0.2 (0.0-0.4) X10*3/uL Baso # (Auto) 0.1 (0.0-0.2) X10*3/uL Abs Immat Gran (auto) 0.01 (0.00-0.03) X10*3/uL Absolute Neuts (auto) 4.2 (2.0-8.3) x10*3/uL Absolute Nucleated RBC 0.000 (0.0-0.012) X10*3/uL Nucleated RBC % (auto) 0.0 (0.0-0.2) /100WBC Sodium 137 (135-145) mmol/L Potassium 4.0 (3.3-5.1) mmol/L Chloride 102 (96-108) mmol/L Carbon Dioxide 30 H (22-29) mmol/L Anion Gap 9 L (12-20) BUN 18 H (9-16) mg/dL Creatinine 0.75 (0.5-1.4) mg/dL Estim Creat Clear Calc 73.1 Estimated GFR > 60 Random Glucose 87 (60-115) mg/dL Calcium 9.2 (8.4-10.2) mg/dL Total Bilirubin 0.3 (0.0-1.0) mg/dL AST 23 (5-31) U/L ALT 23 (0-31) U/L Alkaline Phosphatase 68 (39-117) U/L Troponin I High Sens < 2.7 (<3.5-17.0) ng/L Total Protein 7.3 (6.5-8.0) g/dL Albumin 3.9 (3.5-5.0) g/dL Lipase 29 (8-78) U/L Urine Color Yellow Urine Appearance Clear Urine pH 5.0 (5.0-9.0) Ur Specific [place] 1.015 (1.005-1.025) Urine Protein Negative (Neg-Trace) mg/dL Urine Glucose (UA) Negative (Negative) mg/dL Urine Ketones Negative (Negative) mg/dL Urine Blood Trace H (Negative) Urine Nitrite Negative (Negative) Ur Leukocyte Esterase Negative (Negative) Urine RBC 3-5 H (0-2) /HPF Urine WBC 0-5 (0-5) /HPF Ur Squamous Epith Cells 0-2 (0-2) /HPF Urine Bacteria None Seen (None Seen) Hyaline Casts 0-2 (0-2) /LPF Influenza Type A (PCR) NEGATIVE (Negative) Influenza Type B (PCR) NEGATIVE (Negative) RSV RNA Qual (PCR) NEGATIVE (Negative) SARS-CoV-2 RNA (RT-PCR) NEGATIVE (Negative) Independent Interpretation I performed an independent interpretation of an: Plain X-Ray Interpretation: cxr without infiltrate or consolidation Radiology Impression Discussion of test interpretation with radiology: I have reviewed the radiologist's reading. Radiologist Impression: EXAMINATION: XR CHEST CLINICAL INFORMATION: weakness, cough COMPARISON: X-ray dated December 01, 2023. TECHNIQUE: 2 views of the chest were obtained. FINDINGS: No consolidation, pleural effusion or pneumothorax. Cardiomediastinal silhouette is normal in size. Multilevel thoracic spondylosis. Degenerative changes in the shoulders. Vascular clips right upper quadrant abdomen. XR/XR chest 2V IMPRESSION: No acute airspace disease. Spondylosis, thoracic spine. Status post cholecystectomy likely laparoscopic. Electronically signed by: Brennon Carrillo MD 01/28/2024 01:21 PM [facility] External Record Review External record reviewed: Inpatient record, Office record, Outpatient record, Prior outpatient labs, Prior outpatient radiology, Primary care record and Outside ED record Prescription Management I considered prescription management with: Antibiotic (azithromycin) and Other (prednisone, tessalon) Chronic Conditions Patient?s care impacted by: Other (asthma) Social Determinants Patient?s care significantly limited by Social Determinants of Health including: Other Social Determinant of Health Critical Care Time Critical Care Time Critical Care Time: No Discharge Plan Discharge Clinical Impression: Bronchitis Patient Disposition: Home, Self-Care Instructions: Acute Bronchitis (ED) Additional Instructions: You tested negative for covid, flu, and rsv. Your blood work today is reassuring. Your EKG is normal. Your chest xray does not demonstrate pneumonia. Prednisone is a steroid that has been sent to your pharmacy. Take this as prescribed over the next five days. If you are diabetic, please monitor your sugars at home as this can elevate them. Azithromycin as antibiotic that has been sent to your pharmacy for you to take over the next 5 days. Tessalon Perles have been sent to your pharmacy for you to take as needed for cough. Take Tylenol ibuprofen at home for body aches. Follow up with your primary care provider. Return with new or worsening symptoms. In the case of an emergency call 911. Prescriptions: New azithromycin 250 mg tablet See Rx Instructions .ROUTE .COMPLEX Qty: 6 0RF Rx Instructions: For 250 mg dose pack: take 500 mg today (day 1), then 250 mg for 4 days (days 2-5) benzonatate 100 mg capsule 100 mg PO BID PRN (Reason: cough) Qty: 14 0RF prednisone 20 mg tablet 40 mg PO DAILY 5 Days Qty: 10 0RF No Action polyethylene glycol 3350 [Miralax] 17 gram/dose powder 17 g PO DAILY Qty: 850 2RF albuterol sulfate [Ventolin HFA] 90 mcg/actuation HFA aerosol inhaler 2 puff PO Q6H PRN (Reason: for wheezing) 30 Days Qty: 18 6RF meclizine [Dramamine Less Drowsy] 25 mg tablet 25 mg PO TID PRN (Reason: dizziness) Qty: 20 0RF perphenazine 4 mg tablet 4 mg PO BID@1200,2100 pyridoxine (vitamin B6) 100 mg tablet 200 mg PO DAILY@1200 ondansetron 4 mg tablet,disintegrating 4 mg PO Q6H PRN (Reason: nausea and vomiting) Qty: 10 0RF sucralfate 1 gram tablet 1 g PO TID PRN (Reason: upper abdominal pain) Qty: 30 0RF methocarbamol 750 mg tablet 1,500 mg PO QID PRN (Reason: pain) Qty: 30 0RF ondansetron 4 mg tablet,disintegrating 4 mg PO Q8H PRN (Reason: nausea and vomiting) Qty: 10 0RF cetirizine 10 mg tablet 10 mg PO DAILY PRN (Reason: allergy symptoms) Qty: 30 0RF ibuprofen 800 mg tablet 800 mg PO Q8H PRN (Reason: pain) Qty: 30 0RF prednisone 20 mg tablet 40 mg PO DAILY 5 Days Qty: 10 0RF acetaminophen [Tylenol] 325 mg capsule 650 mg PO Q6H PRN (Reason: pain) Qty: 21 0RF doxepin 75 mg capsule 75 mg PO BEDTIME estazolam 1 mg tablet 3 mg PO BEDTIME alendronate 70 mg tablet 70 mg PO TU cholecalciferol (vitamin D3) 25 mcg (1,000 unit) tablet 25 mcg PO DAILY omeprazole 40 mg capsule,delayed release(DR/EC) 40 mg PO DAILY@0630 lidocaine 5 % adhesive patch,medicated 1 patch topical DAILY venlafaxine 25 mg tablet 25 mg PO DAILY@1200 magnesium oxide 400 mg (241.3 mg magnesium) tablet 400 mg PO DAILY@1200 levothyroxine 100 mcg tablet 100 mcg PO DAILY@0600 Wegovy 1 mg/0.5 mL pen injector 1 mg subcut DAILY fluticasone propion-salmeterol [Advair Diskus] 250-50 mcg/dose blister with device 1 inh inhalation BID 30 Days Qty: 60 5RF albuterol sulfate 2.5 mg /3 mL (0.083 %) solution for nebulization 2.5 mg inhalation Q4H PRN (Reason: shortness of breath or wheezing) 30 Days Qty: 180 3RF Referrals: Name,MD Gregg [Primary Care Provider] - Interventions: ED Discharge Assessment Last Done: 01/28/24 16:36 Discharge Date/Time: 01/28/24 16:37 Print Language: Indonesian
--- NOTE | 2024-01-28 11:13 | ECG_ITS ---
Test Reason : chest pain Blood Pressure : / mmHG Vent. Rate : 073 BPM Atrial Rate : 073 BPM P-R Int : 160 ms QRS Dur : 070 ms QT Int : 376 ms P-R-T Axes : 037 058 050 degrees QTc Int : 414 ms Normal sinus rhythm Nonspecific T wave abnormality Abnormal ECG When compared with ECG of 17-JUN-2023 14:31, Questionable change in QRS axis Nonspecific T wave abnormality no longer evident in Inferior leads Referred By: Rick Boothe Electronically Signed By:KARRI JIMENEZ MD
[2024-01-28 11:40] LABS: MANUAL DIFF FLAG NO
[2024-01-28 11:42] LABS: Basophils Absolute Auto 0.1 X10*3/uL (0.0-0.2); Basophils Percent Auto 0.8 % (0-2); Eosinophils Absolute Auto 0.2 X10*3/uL (0.0-0.4); Eosinophils Percent Auto 2.7 % (0-4); Hemoglobin 12.9 g/dl (12.0-16.0); Imm Gran Abs Auto 0.01 X10*3/uL (0.00-0.03); Imm Gran Pct Auto 0.2 % (0.0-0.4); Lymphocytes Absolute Auto 1.3 X10*3/uL (1.2-4.9); Lymphocytes Percent Auto 19.8 % (20-40); Mean Corpuscular HGB Conc 32.3 g/dl (31.0-35.0); Mean Corpuscular Hemoglobin 26.5 pg (27.0-33.0); Mean Corpuscular Volume 82.3 fL (80.0-98.0); Mean Platelet Volume 9.4 fL (9.4-12.3); Monocytes Absolute Auto 0.7 X10*3/uL (0.1-1.2); Monocytes Percent Auto 10.5 % (2-11); Neutrophils Absolute Auto 4.2 x10*3/uL (2.0-8.3); Platelet Count 302 X10*3/uL (160-400); Red Blood Count 4.86 X10*6/uL (4.20-5.50); Red Cell Distribution Width 15.4 % (11.0-16.0); White Blood Count 6.4 X10*3/uL (4.8-10.8)
[2024-01-28 11:56] LABS: Alanine Aminotransferase 23 U/L (0-31); Albumin Level 3.9 g/dL (3.5-5.0); Alkaline Phosphatase 68 U/L (39-117); Anion Gap 9 (12-20); Aspartate Amino Transferase 23 U/L (5-31); Bilirubin Total 0.3 mg/dL (0.0-1.0); Blood Urea Nitrogen 18 mg/dL (9-16); Calcium 9.2 mg/dL (8.4-10.2); Carbon Dioxide 30 mmol/L (22-29); Chloride 102 mmol/L (96-108); Creatinine Clr Calc Pharmacy 73.1; Estimated Glomerular Filt Rate > 60; Glucose Random 87 mg/dL (60-115); Lipase 29 U/L (8-78); Sodium 137 mmol/L (135-145); Total Protein 7.3 g/dL (6.5-8.0)
[2024-01-28 12:04] LABS: Troponin-I High Sensitivity < 2.7 ng/L (<3.5-17.0)
[2024-01-28 12:24] LABS: Influenza A PCR NEGATIVE (Negative); Influenza B PCR NEGATIVE (Negative); Resp Syncy Virus RNA Qual PCR NEGATIVE (Negative); SARS COV2 PCR INHOUSE NEGATIVE (Negative)
[2024-01-28 15:03] VITALS: BP 110/75; PULSE 77; RESP 16; TEMP 36.4; O2SAT 98
[2024-01-28 16:03] LABS: Appearance Urine Clear; Color Urine Yellow; Glucose Urine UA Negative (Negative); Leukocyte Esterase Urine Negative (Negative); Nitrite Urine Negative (Negative); Specific Gravity - Urine 1.015 (1.005-1.025); UMIC TRIGGER UACC YES; Urine Blood Trace (Negative); Urine Ketones Negative (Negative); Urine Protein Negative (Neg-Trace)
[2024-01-28 16:08] LABS: Bacteria Urine None Seen (None Seen); Hyaline Casts Urine 0-2 /LPF (0-2); Squamous Epithelial Cell Urine 0-2 /HPF (0-2); WBC Urine 0-5 /HPF (0-5)
[2024-01-28 16:36] VITALS: BP 110/75; PULSE 77; RESP 16; TEMP 36.4; O2SAT 98
== END 2024-01-28 16:37 | disposition home or self-care (01) ==
PROVIDERS: Physician Assistant; Emergency Provider Emergency Medicine; PCP Internal Medicine Geriatric Medicine
DX: J40 Bronchitis, not specified as acute or chronic (principal); R53.1 Weakness; R05.9 Cough, unspecified; M79.10 Myalgia, unspecified site; R09.81 Nasal congestion; Z79.899 Other long term (current) drug therapy; Z03.818 Encounter for observation for suspected exposure to other biological agents ruled out
CPT/HCPCS: 0241U; 71046; 80053; 81001; 83690; 84484; 85025; 93005; 99283; 99284

== ENCOUNTER → 2024-01-28 11:13 | Outpatient (BNV) | payer OTHER, SELFPAY | PROVIDERS: Emergency Provider Emergency Medicine; PCP Internal Medicine Geriatric Medicine; Visit Provider Internal Medicine Cardiovascular Disease | DX: R07.9 Chest pain, unspecified (principal) | CPT/HCPCS: 93010 ==

== ENCOUNTER → 2024-01-28 11:13 | Outpatient (BNV) | payer OTHER, SELFPAY | PROVIDERS: PCP Internal Medicine Geriatric Medicine; Visit Provider Radiology Diagnostic Radiology | DX: R53.1 Weakness (principal); R05.9 Cough, unspecified | CPT/HCPCS: 71046 ==

== ENCOUNTER 2024-02-25 14:44 | Emergency (ER) | payer OTHER, SELFPAY ==
--- NOTE | ~2024-02-25 | XR_ITS ---
EXAMINATION: XR FOOT, RIGHT CLINICAL INFORMATION: fall, severe great toe pain COMPARISON: 02/20/2019. TECHNIQUE: AP, lateral, and oblique views of the right foot. FINDINGS: No fracture, dislocation, or suspicious bone lesion. No significant arthritic findings. No malalignment. Midfoot and hindfoot appear normal. Soft tissues demonstrate mild great toe swelling. XR/XR foot RT min 3V IMPRESSION: 1. No acute bony findings of the great toe right foot. 2. Mild soft tissue swelling great toe. Electronically signed by: Alverto Carrington MD 02/25/2024 03:43 PM [facility]
--- NOTE | 2024-02-25 14:51 | ED.LOWEXIN ---
HPI - Extremity Injury (Lower) General Chief Complaint: Fall Stated Complaint: MECH FALL,?FX RT BIG TOE Time Seen by Provider: 02/25/24 16:56 Source: patient Mode of arrival: ambulatory Limitations: no limitations History of Present Illness ED Provider: JUAN HPI Narrative: 63 yo female with PMH of osteoporosis, C diff, s/p gastric bypass, asthma, GERD here with c/o tripped over cord/blanket at home and dragged her R big toe under her did not fall. No LOC, has abrasion to R great toe and hurts to walk. She feels some pain in the R knee and hip but no fall or known direct strike to those areas. States it hurts to walk at this time. 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[employer]) Injury: Right: foot and toes Type of Injury: blunt Place: home Severity: moderate Relieving factors: immobilization Exacerbating factors: weight bearing, movement and palpation Context: direct blow Associated symptoms: unable to bear weight Other symptoms: none Treatments prior to arrival: cold therapy and bandage Related Data Home Medications ?Medication ?Instructions ?Recorded ?Confirmed doxepin 75 mg capsule 75 mg PO BEDTIME 11/22/19 01/24/24 estazolam 1 mg tablet 3 mg PO BEDTIME 06/06/20 01/24/24 alendronate 70 mg tablet 70 mg PO TU 06/03/22 01/24/24 cholecalciferol (vitamin D3) 25 25 mcg PO DAILY 06/03/22 01/24/24 mcg (1,000 unit) tablet perphenazine 4 mg tablet 4 mg PO BID@1200,2100 06/04/22 01/24/24 levothyroxine 100 mcg tablet 100 mcg PO DAILY@0600 10/01/22 01/24/24 lidocaine 5 % topical patch 1 patch topical DAILY 10/01/22 01/24/24 magnesium oxide 400 mg (241.3 mg 400 mg PO DAILY@1200 10/01/22 01/24/24 magnesium) tablet omeprazole 40 mg capsule,delayed 40 mg PO DAILY@0630 10/01/22 01/24/24 release venlafaxine 25 mg tablet 25 mg PO DAILY@1200 10/01/22 01/24/24 pyridoxine (vitamin B6) 100 mg 200 mg PO DAILY@1200 11/27/22 01/24/24 tablet semaglutide (weight loss) 1 mg/0.5 1 mg subcut DAILY 08/11/23 01/24/24 mL subcutaneous pen injector (Oren) Previous Rx's ?Medication ?Instructions ?Recorded meclizine 25 mg tablet (Dramamine 25 mg PO TID PRN dizziness #20 tabs 12/19/20 Less Drowsy) ondansetron 4 mg disintegrating 4 mg PO Q8H PRN nausea and 09/10/22 tablet vomiting #10 tabs ondansetron 4 mg disintegrating 4 mg PO Q6H PRN nausea and 04/16/23 tablet vomiting #10 tabs sucralfate 1 gram tablet 1 g PO TID PRN upper abdominal 04/16/23 pain #30 tabs cetirizine 10 mg tablet 10 mg PO DAILY PRN allergy 06/04/23 symptoms #30 tabs albuterol sulfate 2.5 mg/3 mL 2.5 mg (3 mL) inhalation Q4H PRN 08/11/23 (0.083 %) solution for nebulization shortness of breath or wheezing 30 days #180 mL polyethylene glycol 3350 17 17 g PO DAILY #850 grams 08/26/23 gram/dose oral powder (Miralax) ibuprofen 800 mg tablet 800 mg PO Q8H PRN pain #30 tabs 09/10/23 albuterol sulfate 90 mcg/actuation 2 puff PO Q6H PRN for wheezing 30 11/01/23 aerosol inhaler (Ventolin HFA) days #18 grams methocarbamol 750 mg tablet 1,500 mg (2 x 750 mg) PO QID PRN 12/10/23 pain #30 tabs acetaminophen 325 mg capsule 650 mg (2 x 325 mg) PO Q6H PRN 12/17/23 (Tylenol) pain #21 caps prednisone 20 mg tablet 40 mg (2 x 20 mg) PO DAILY 5 days 12/17/23 #10 tabs azithromycin 250 mg tablet See Rx Instructions PO .COMPLEX #6 01/28/24 tabs benzonatate 100 mg capsule 100 mg PO BID PRN cough #14 caps 01/28/24 prednisone 20 mg tablet 40 mg (2 x 20 mg) PO DAILY 5 days 01/28/24 #10 tabs fluticasone 250 mcg-salmeterol 50 1 inh inhalation BID ASTHMA 30 02/14/24 mcg/dose blistr powdr for days #60 ea inhalation (Advair Diskus) Allergies Allergy/AdvReac Type Severity Reaction Status Date / Time nalbuphine [From Nubain] Allergy Severe Anaphylaxis Verified 02/25/24 14:59 Review of Systems Review of Systems: Constitutional : No Fever, No Chills ENT/Mouth : No Ear Pain, No Hoarseness, No sore throat Eyes: No Eye Pain, No Swelling, No Redness, No Foreign Body Cardiovascular : No Chest Pain, No SOB Respiratory : No Cough, No Dyspnea Gastrointestinal : No Nausea, No Vomiting, No Diarrhea, No abdominal Pain Genitourinary : No Dysuria, No Hematuria Musculoskeletal : positive joint pain, No Myalgias, pos Joint Swelling Skin : No Skin lacerations, No rash, pos abrasions Neuro : No Weakness, No Numbness, No Loss of Consciousness, No All other systems reviewed and are negative PMFSH Past Medical History Attestation statement: The following information was validated with the patient. Source: old records reviewed Medical History Bronchitis Somnolence, daytime Obesity (BMI 30-39.9) Nausea & vomiting Migraine Syncope Pseudotumor cerebri Kidney calculi Crystal arthropathy Right shoulder injury Kidney tumor COVID-19 vaccine administered Thyroid disease Colon polyp Diverticulosis of colon Bronchial asthma Acid reflux Surgical History Status post excision of lipoma (09/10/23) History of esophagogastroduodenoscopy (EGD) History of surgery on wrist History of hysterectomy Previous section Hx laparoscopic cholecystectomy Hx of gastric bypass (03/12/15) Hx of colonoscopy Family History Family History Father Heart disease History of open heart surgery Mother Heart disease Social History Social History Household Members: None Household Members Other:: alone Are you a primary acute care physical therapist to a significant other at home: No Do you presently have visiting nurse or other home services: No Alcohol intake: never Patient Tobacco Use Status: Former Tobacco user Tobacco use type: Cigarette Advance Directives: No Advance Directives Information Provided: No service: No Current occupational status: disabled Physical Exam Vital Signs: Vital Signs: Last Vital Signs Temp 98.6 F 02/25/24 14:56 Pulse 87 02/25/24 14:56 Resp 16 02/25/24 14:56 BP 117/68 02/25/24 14:56 Pulse Ox 98 02/25/24 14:56 O2 Del Method Room Air 02/25/24 14:56 BMI result Body Mass Index 30.5 Appearance: Alert. Oriented X3. No acute distress. Eyes: Pupils equal, round and reactive to light. ENT: Pharynx normal. Neck: Normal inspection. Neck supple. CVS: Normal heart rate and rhythm. Pulses normal. Respiratory: No respiratory distress. Breath sounds normal. Abdomen: Soft and nontender. Skin: Skin warm and dry. Normal skin color. Normal skin turgor. Extremities: No lower extremity edema. pulses and SILT intact RLE able to lift knee doubt hip or knee fracture, R great toe small abrasion proximal nail fold but nail intact and does not move, it is very superficial and about 1cm long no subq tissue noted, ttp along toe itself but no deformity or contusion Neuro: Oriented X 3. No motor deficit. No sensory deficit. CN2-12 intact Course Course Course Narrative: This is an RME performed by Mele Patrick CNP: Additional HPI, ROS, PE not included below will be deferred to primary provider. Patient is a 63-year-old female presents emergency department for evaluation after A mechanical trip and fall over a power cord with subsequent right great toe fracture, heard a loud snap. Plan: XR foot Medications Administered Discontinued Medications Generic Name Dose Route Start Last Admin Trade Name Shaq PRN Reason Stop Dose Admin Acetaminophen 975 mg 02/25/24 14:58 02/25/24 15:01 Acetaminophen 325 Mg Tablet PO 02/25/24 14:59 975 mg ONCE ONE Administration Medical Decision Making Medical Decision Making MDM Narrative: 63 yo female with PMH of osteoporosis, C diff, s/p gastric bypass, asthma, GERD here with c/o trip and drag injury to the toe on exam nail is intact, has small abrasion superficial I cleaned it and put on sterile dressing no pain at knee or hip given mechanism doubt fracture she is NV intact foot xray ordered along with boot Differential Diagnosis Differential Diagnoses: The differential diagnosis associated with the presentation includes fracture, strain, abrasion Independent Interpretation I performed an independent interpretation of an: Plain X-Ray (no fracture) Radiology Impression Discussion of test interpretation with radiology: I have reviewed the radiologist's reading. External Record Review External record reviewed: Outpatient record Prescription Management I considered prescription management with: Pain Medication Procedures Orthopedic Splinting/Casting Injury #1: Side: right Lower Extremity Injury Location: foot Lower Extremity Immobilizer: AirCast and post-op shoe Other Orthopedic Equipment: crutches Discharge Plan Discharge Clinical Impression: Injury of right great toe Patient Disposition: Home, Self-Care Instructions: Crutch Instructions (ED), Abrasion (ED) Additional Instructions: crutches for one week boot for one week monitor abrasion keep clean dry and covered remove the dressing in 24 hours return for worsening pain, redness, yellow drainage or signs of infection follow up with orthopedics if not better in 1 week Prescriptions: No Action polyethylene glycol 3350 [Miralax] 17 gram/dose powder 17 g PO DAILY Qty: 850 2RF albuterol sulfate [Ventolin HFA] 90 mcg/actuation HFA aerosol inhaler 2 puff PO Q6H PRN (Reason: for wheezing) 30 Days Qty: 18 6RF fluticasone propion-salmeterol [Advair Diskus] 250-50 mcg/dose blister with device 1 inh inhalation BID 30 Days Qty: 60 5RF meclizine [Dramamine Less Drowsy] 25 mg tablet 25 mg PO TID PRN (Reason: dizziness) Qty: 20 0RF perphenazine 4 mg tablet 4 mg PO BID@1200,2100 pyridoxine (vitamin B6) 100 mg tablet 200 mg PO DAILY@1200 ondansetron 4 mg tablet,disintegrating 4 mg PO Q6H PRN (Reason: nausea and vomiting) Qty: 10 0RF sucralfate 1 gram tablet 1 g PO TID PRN (Reason: upper abdominal pain) Qty: 30 0RF methocarbamol 750 mg tablet 1,500 mg PO QID PRN (Reason: pain) Qty: 30 0RF ondansetron 4 mg tablet,disintegrating 4 mg PO Q8H PRN (Reason: nausea and vomiting) Qty: 10 0RF cetirizine 10 mg tablet 10 mg PO DAILY PRN (Reason: allergy symptoms) Qty: 30 0RF ibuprofen 800 mg tablet 800 mg PO Q8H PRN (Reason: pain) Qty: 30 0RF prednisone 20 mg tablet 40 mg PO DAILY 5 Days Qty: 10 0RF acetaminophen [Tylenol] 325 mg capsule 650 mg PO Q6H PRN (Reason: pain) Qty: 21 0RF azithromycin 250 mg tablet See Rx Instructions .ROUTE .COMPLEX Qty: 6 0RF Rx Instructions: For 250 mg dose pack: take 500 mg today (day 1), then 250 mg for 4 days (days 2-5) benzonatate 100 mg capsule 100 mg PO BID PRN (Reason: cough) Qty: 14 0RF prednisone 20 mg tablet 40 mg PO DAILY 5 Days Qty: 10 0RF doxepin 75 mg capsule 75 mg PO BEDTIME estazolam 1 mg tablet 3 mg PO BEDTIME alendronate 70 mg tablet 70 mg PO TU cholecalciferol (vitamin D3) 25 mcg (1,000 unit) tablet 25 mcg PO DAILY omeprazole 40 mg capsule,delayed release(DR/EC) 40 mg PO DAILY@0630 lidocaine 5 % adhesive patch,medicated 1 patch topical DAILY venlafaxine 25 mg tablet 25 mg PO DAILY@1200 magnesium oxide 400 mg (241.3 mg magnesium) tablet 400 mg PO DAILY@1200 levothyroxine 100 mcg tablet 100 mcg PO DAILY@0600 Wegovy 1 mg/0.5 mL pen injector 1 mg subcut DAILY albuterol sulfate 2.5 mg /3 mL (0.083 %) solution for nebulization 2.5 mg inhalation Q4H PRN (Reason: shortness of breath or wheezing) 30 Days Qty: 180 3RF Print Language: Hebrew
[2024-02-25 14:55] VITALS: BP 128/72; PULSE 83; O2SAT 95
[2024-02-25 14:56] VITALS: BP 117/68; PULSE 87; RESP 16; TEMP 37; O2SAT 98; BMI 30.5
[2024-02-25] MEDS: Acetaminophen 325 MG TABLET 975 MG PO (15:01)
[2024-02-25 17:55] VITALS: BP 125/69; PULSE 80; RESP 14; TEMP 36.8; O2SAT 98
== END 2024-02-25 17:56 | disposition home or self-care (01) ==
PROVIDERS: Emergency Provider Emergency Medicine; PCP Internal Medicine Geriatric Medicine
DX: S99.921A Unspecified injury of right foot, initial encounter (principal); M79.671 Pain in right foot; W18.40XA Slipping, tripping and stumbling without falling, unspecified, initial encounter; Y93.89 Activity, other specified; Y92.89 Other specified places as the place of occurrence of the external cause; Y99.8 Other external cause status; Z87.891 Personal history of nicotine dependence; Z79.899 Other long term (current) drug therapy
CPT/HCPCS: 29515; 73630; 99283; 99284

== ENCOUNTER → 2024-02-25 14:56 | Outpatient (BNV) | payer OTHER, SELFPAY | PROVIDERS: Visit Provider Radiology Diagnostic Radiology | DX: M79.674 Pain in right toe(s) (principal) | CPT/HCPCS: 73630 ==

== ENCOUNTER 2024-05-01 16:38 | Emergency (ER) | payer OTHER, SELFPAY ==
--- NOTE | ~2024-05-01 | XR_ITS ---
CLINICAL HISTORY: pain and swelling 4 views right knee Comparison: DX/SR - XR KNEE RT 2V - 01/24/24 09:37 EST CR/SR - XR KNEE RT 4V - 12/17/23 14:01 EDT Findings: There is no fracture or dislocation. There is moderate medial and patellofemoral compartment predominant osteoarthritis. There is no effusion. Impression: 1. No acute findings. 2. Moderate right knee osteoarthritis. This document has been electronically signed by: Brent Peck MD on 05/01/2024 17:17:22
--- NOTE | ~2024-05-01 | US_ITS ---
CLINICAL HISTORY: atraumatic right leg knee pain Venous duplex ultrasound right lower extremity Comparison: None Findings: The visualized deep veins are fully compressible with normal Doppler color flow and spectral tracings. No popliteal cyst. IMPRESSION: 1. Negative for right lower extremity deep vein thrombosis. This document has been electronically signed by: Harsha Guzmán MD on 05/02/2024 00:41:35
--- NOTE | ~2024-05-01 | XR_ITS ---
CLINICAL HISTORY: left hip pain AP pelvis and two views of the left hip. Comparison: None Findings: The bones are intact. No fracture deformity. Degenerative changes of the lower lumbar spine. The soft tissues are unremarkable. IMPRESSION: No acute findings. This document has been electronically signed by: Harsha Guzmán MD on 05/02/2024 00:09:32
[2024-05-01 16:42] VITALS: BP 125/77; PULSE 88; O2SAT 97
[2024-05-01 16:47] VITALS: BP 127/72; PULSE 97; RESP 16; TEMP 37; O2SAT 98; BMI 31.0
--- NOTE | 2024-05-01 16:49 | ED.GENADULT ---
HPI - General Adult General Chief complaint: Extremity Injury, Lower Stated complaint: R knee pain w/ swelling- no recent injury Time Seen by Provider: 05/01/24 23:07 History of Present Illness ED Provider: Carlie WOMACK narrative: The patient is a 63-year-old female who seems to have a history of problems with pains in her back and in her legs. Taking a history is difficult. The patient says that she has had significant worsening of right knee pain since yesterday when she was at [employer]. She also says that she developed left groin or hip pain pain last night. She thinks that the pain in her left hip or groin may be because of compensating for the pain in her right knee. She says that she has trouble moving either leg at this point because of these pains. She says that she had to take an ambulance to the hospital today because of the severity of her pains and her difficulty moving. No fever, sweats, chills. The patient says that she has been told by Dr. Diallo that she needs to have a right knee replacement. She says she does not want to have any replacement. She says that she has a an appointment in a month or 2 to possibly have some kind of gel injected into her knee. She says she has had steroid injections in the knee which have not helped. Related Data Home Medications ?Medication ?Instructions ?Recorded ?Confirmed doxepin 75 mg capsule 75 mg PO BEDTIME 11/22/19 01/24/24 estazolam 1 mg tablet 3 mg PO BEDTIME 06/06/20 01/24/24 alendronate 70 mg tablet 70 mg PO TU 06/03/22 01/24/24 cholecalciferol (vitamin D3) 25 25 mcg PO DAILY 06/03/22 01/24/24 mcg (1,000 unit) tablet perphenazine 4 mg tablet 4 mg PO BID@1200,2100 06/04/22 01/24/24 levothyroxine 100 mcg tablet 100 mcg PO DAILY@0600 10/01/22 01/24/24 lidocaine 5 % topical patch 1 patch topical DAILY 10/01/22 01/24/24 magnesium oxide 400 mg (241.3 mg 400 mg PO DAILY@1200 10/01/22 01/24/24 magnesium) tablet omeprazole 40 mg capsule,delayed 40 mg PO DAILY@0630 10/01/22 01/24/24 release venlafaxine 25 mg tablet 25 mg PO DAILY@1200 10/01/22 01/24/24 pyridoxine (vitamin B6) 100 mg 200 mg PO DAILY@1200 11/27/22 01/24/24 tablet semaglutide (weight loss) 1 mg/0.5 1 mg subcut DAILY 08/11/23 01/24/24 mL subcutaneous pen injector (Oren) Previous Rx's ?Medication ?Instructions ?Recorded meclizine 25 mg tablet (Dramamine 25 mg PO TID PRN dizziness #20 tabs 12/19/20 Less Drowsy) ondansetron 4 mg disintegrating 4 mg PO Q8H PRN nausea and 09/10/22 tablet vomiting #10 tabs ondansetron 4 mg disintegrating 4 mg PO Q6H PRN nausea and 04/16/23 tablet vomiting #10 tabs sucralfate 1 gram tablet 1 g PO TID PRN upper abdominal 04/16/23 pain #30 tabs cetirizine 10 mg tablet 10 mg PO DAILY PRN allergy 06/04/23 symptoms #30 tabs albuterol sulfate 2.5 mg/3 mL 2.5 mg (3 mL) inhalation Q4H PRN 08/11/23 (0.083 %) solution for nebulization shortness of breath or wheezing 30 days #180 mL polyethylene glycol 3350 17 17 g PO DAILY #850 grams 08/26/23 gram/dose oral powder (Miralax) ibuprofen 800 mg tablet 800 mg PO Q8H PRN pain #30 tabs 09/10/23 albuterol sulfate 90 mcg/actuation 2 puff PO Q6H PRN for wheezing 30 11/01/23 aerosol inhaler (Ventolin HFA) days #18 grams methocarbamol 750 mg tablet 1,500 mg (2 x 750 mg) PO QID PRN 12/10/23 pain #30 tabs acetaminophen 325 mg capsule 650 mg (2 x 325 mg) PO Q6H PRN 12/17/23 (Tylenol) pain #21 caps prednisone 20 mg tablet 40 mg (2 x 20 mg) PO DAILY 5 days 12/17/23 #10 tabs azithromycin 250 mg tablet See Rx Instructions PO .COMPLEX #6 01/28/24 tabs benzonatate 100 mg capsule 100 mg PO BID PRN cough #14 caps 01/28/24 prednisone 20 mg tablet 40 mg (2 x 20 mg) PO DAILY 5 days 01/28/24 #10 tabs fluticasone 250 mcg-salmeterol 50 1 inh inhalation BID ASTHMA 30 02/14/24 mcg/dose blistr powdr for days #60 ea inhalation (Advair Diskus) Allergies Allergy/AdvReac Type Severity Reaction Status Date / Time nalbuphine [From Nubain] Allergy Severe Anaphylaxis Verified 05/01/24 16:50 Review of Systems Review of Systems: Yes all other systems are reviewed and are negative [facility] Past Medical History Medical History Bronchitis Somnolence, daytime Obesity (BMI 30-39.9) Nausea & vomiting Migraine Syncope Pseudotumor cerebri Kidney calculi Crystal arthropathy Right shoulder injury Kidney tumor COVID-19 vaccine administered Thyroid disease Colon polyp Diverticulosis of colon Bronchial asthma Acid reflux Surgical History Status post excision of lipoma (09/10/23) History of esophagogastroduodenoscopy (EGD) History of surgery on wrist History of hysterectomy Previous section Hx laparoscopic cholecystectomy Hx of gastric bypass (03/12/15) Hx of colonoscopy Family History Family History Father Heart disease History of open heart surgery Mother Heart disease Social History Social History Household Members: None Household Members Other:: alone Are you a primary janitor caretaker to a significant other at home: No Do you presently have visiting nurse or other home services: No Alcohol intake: never Patient Tobacco Use Status: Former Tobacco user Tobacco use type: Cigarette Advance Directives: No Advance Directives Information Provided: No service: No Current occupational status: disabled Physical Exam ED Vital Signs: Vital Signs - 24 hr 05/01/24 16:47 05/01/24 22:00 05/02/24 00:21 Temperature 98.6 F 97.2 F Pulse Rate 97 80 76 Respiratory Rate 16 18 16 Blood Pressure 127/72 124/77 114/71 Pulse Oximetry 98 98 Oxygen Delivery Method Room Air Room Air 05/02/24 01:42 Temperature 97.2 F Pulse Rate 76 Respiratory Rate 16 Blood Pressure 114/71 Pulse Oximetry 98 Oxygen Delivery Method Room Air BMI result Body Mass Index 31.0 Const Other: The patient is a somewhat histrionic 63-year-old woman who was awake and alert and does not seem in obvious distress and does not seem obviously acutely ill. HENMT Other: Face is symmetrical. Mucous membranes moist. Eyes General: appearance normal, both eyes and all related structures Neck Neck: Yes normal visual inspection and Yes full ROM Resp Effort & Inspection: normal respiratory effort Auscultation: clear to auscultation bilaterally Cardio Rate: regular rate Rhythm: regular rhythm Heart sounds: S1 normal heart sound present and S2 normal heart sound present GI Other: Abdomen is soft and nontender Skin Other: The skin is dry and unremarkable Neuro Other: The patient is awake and alert with a normal mental status. Cranial nerves 2-12 are intact. She moves her upper extremities normally. She has normal sensation in the lower extremities but her strength was difficult to evaluate because she had so many complaints of pain. Extrem Other: There was no deformity to the legs. No obvious signs of abnormality. Both feet are well-perfused and have good dorsalis pedis pulses. There is no peripheral edema. No calf asymmetry. She reports a great deal of tenderness with palpation of the knees. It was with some difficulty that I was able to put the knees in the hips through a range of motion but ultimately, moving her joints very slowly I was able to put both the knees and the hips through a good range of motion. Course Course Course Narrative: This is a rapid medical exam performed by Ross Anton NP: Additional HPI, ROS, PE not included below will be deferred to primary provider. Patient is a 63-year-old female with history of osteoarthritis of right knee presenting with severe pain and swelling to right knee since Wednesday. Reports multiple falls at home due to balance problems. Plan: labs, xray Medications Administered Discontinued Medications Generic Name Dose Route Start Last Admin Trade Name Freq PRN Reason Stop Dose Admin Ketorolac Tromethamine 30 mg 05/01/24 23:32 05/02/24 00:24 Ketorolac Tromethamine 30 Mg/Ml Vial IM 05/01/24 23:33 30 mg ONCE ONE Administration Medical Decision Making Medical Decision Making [facility] Narrative: The patient is a 63-year-old female who is here for pain in her legs. It was difficult to determine what component of her complaints were chronic and what might be acute. It seems her complaints were primarily about pain in her right knee and also in her left hip. My overall impression was that she did not have any likely acute process of significance. Vital signs are unremarkable. She was afebrile. She has labs which are unremarkable. She has a CBC which shows a normal white count and differential. CRP is unremarkable. ESR is mildly elevated at 27. X-rays of the right knee in the left hip are unremarkable. No effusion was seen on the right knee x-ray. An ultrasound of the right leg shows no DVT or popliteal cyst. The patient was reassured that she does not seem to have any new acute findings on her x-rays are on her blood work. She has been given an injection of ketorolac. She seemed comfortable being discharged to follow up with your regular providers. Lab Data 05/01/24 17:07 05/01/24 17:07 Labs: Lab Results 05/01/24 Range/Units 17:07 WBC 7.1 (4.8-10.8) X10*3/uL RBC 4.78 (4.20-5.50) X10*6/uL Hgb 12.6 (12.0-16.0) g/dl Hct 40.0 (37.0-47.0) % MCV 83.7 (80.0-98.0) fL MCH 26.4 L (27.0-33.0) pg MCHC 31.5 (31.0-35.0) g/dl RDW 15.3 (11.0-16.0) % Plt Count 321 (160-400) X10*3/uL MPV 9.8 (9.4-12.3) fL Immature Gran % (Auto) 0.4 (0.0-0.4) % Neut % (Auto) 64.9 (45-73) % Lymph % (Auto) 20.9 (20-40) % [place] % (Auto) 11.9 H (2-11) % Eos % (Auto) 1.1 (0-4) % Baso % (Auto) 0.8 (0-2) % Lymph # (Auto) 1.5 (1.2-4.9) X10*3/uL [place] # (Auto) 0.8 (0.1-1.2) X10*3/uL Eos # (Auto) 0.1 (0.0-0.4) X10*3/uL Baso # (Auto) 0.1 (0.0-0.2) X10*3/uL Abs Immat Gran (auto) 0.03 (0.00-0.03) X10*3/uL Absolute Neuts (auto) 4.6 (2.0-8.3) x10*3/uL Absolute Nucleated RBC 0.000 (0.0-0.012) X10*3/uL Nucleated RBC % (auto) 0.0 (0.0-0.2) /100WBC ESR 27 H (0-20) MM/HR Sodium 138 (135-145) mmol/L Potassium 4.6 (3.3-5.1) mmol/L Chloride 105 (96-108) mmol/L Carbon Dioxide 27 (22-29) mmol/L Anion Gap 11 L (12-20) BUN 19 H (9-16) mg/dL Creatinine 0.79 (0.5-1.4) mg/dL Estim Creat Clear Calc 70.8 Estimated GFR > 60 Random Glucose 83 (60-115) mg/dL Calcium 8.9 (8.4-10.2) mg/dL Total Bilirubin 0.2 (0.0-1.0) mg/dL AST 27 (5-31) U/L ALT 23 (0-31) U/L Alkaline Phosphatase 73 (39-117) U/L C-Reactive Protein 0.31 (< or = 0.50) mg/dL Total Protein 7.6 (6.5-8.0) g/dL Albumin 3.8 (3.5-5.0) g/dL Discharge Plan Discharge Clinical Impression: Acute pain of right knee, Acute pain of left hip Patient Disposition: Home, Self-Care Additional Instructions: Your testing in the emergency room today is reassuring. There is no sign of any new problem with your right knee. There is no sign of a blood clot in your right leg. The x-ray of your left hip does not show any concerning findings. Your blood testing is also reassuring. Please continue to use acetaminophen as needed for pain. Please use an assistive device like a cane or a walker to help get around. Please follow up with your regular doctor to discuss your symptoms. Also follow up with your orthopedist. Return to the hospitalist significantly worse. Prescriptions: No Action polyethylene glycol 3350 [Miralax] 17 gram/dose powder 17 g PO DAILY Qty: 850 2RF albuterol sulfate [Ventolin HFA] 90 mcg/actuation HFA aerosol inhaler 2 puff PO Q6H PRN (Reason: for wheezing) 30 Days Qty: 18 6RF fluticasone propion-salmeterol [Advair Diskus] 250-50 mcg/dose blister with device 1 inh inhalation BID 30 Days Qty: 60 5RF meclizine [Dramamine Less Drowsy] 25 mg tablet 25 mg PO TID PRN (Reason: dizziness) Qty: 20 0RF perphenazine 4 mg tablet 4 mg PO BID@1200,2100 pyridoxine (vitamin B6) 100 mg tablet 200 mg PO DAILY@1200 ondansetron 4 mg tablet,disintegrating 4 mg PO Q6H PRN (Reason: nausea and vomiting) Qty: 10 0RF sucralfate 1 gram tablet 1 g PO TID PRN (Reason: upper abdominal pain) Qty: 30 0RF methocarbamol 750 mg tablet 1,500 mg PO QID PRN (Reason: pain) Qty: 30 0RF ondansetron 4 mg tablet,disintegrating 4 mg PO Q8H PRN (Reason: nausea and vomiting) Qty: 10 0RF cetirizine 10 mg tablet 10 mg PO DAILY PRN (Reason: allergy symptoms) Qty: 30 0RF ibuprofen 800 mg tablet 800 mg PO Q8H PRN (Reason: pain) Qty: 30 0RF prednisone 20 mg tablet 40 mg PO DAILY 5 Days Qty: 10 0RF acetaminophen [Tylenol] 325 mg capsule 650 mg PO Q6H PRN (Reason: pain) Qty: 21 0RF azithromycin 250 mg tablet See Rx Instructions .ROUTE .COMPLEX Qty: 6 0RF Rx Instructions: For 250 mg dose pack: take 500 mg today (day 1), then 250 mg for 4 days (days 2-5) benzonatate 100 mg capsule 100 mg PO BID PRN (Reason: cough) Qty: 14 0RF prednisone 20 mg tablet 40 mg PO DAILY 5 Days Qty: 10 0RF doxepin 75 mg capsule 75 mg PO BEDTIME estazolam 1 mg tablet 3 mg PO BEDTIME alendronate 70 mg tablet 70 mg PO TU cholecalciferol (vitamin D3) 25 mcg (1,000 unit) tablet 25 mcg PO DAILY omeprazole 40 mg capsule,delayed release(DR/EC) 40 mg PO DAILY@0630 lidocaine 5 % adhesive patch,medicated 1 patch topical DAILY venlafaxine 25 mg tablet 25 mg PO DAILY@1200 magnesium oxide 400 mg (241.3 mg magnesium) tablet 400 mg PO DAILY@1200 levothyroxine 100 mcg tablet 100 mcg PO DAILY@0600 Wegovy 1 mg/0.5 mL pen injector 1 mg subcut DAILY albuterol sulfate 2.5 mg /3 mL (0.083 %) solution for nebulization 2.5 mg inhalation Q4H PRN (Reason: shortness of breath or wheezing) 30 Days Qty: 180 3RF Referrals: [facility] – [place] [facility] Surgeons [Provider Group] (left knee and right hip pains) Name,MD Gregg [Primary Care Provider] - (joint pains) Interventions: ED Discharge Assessment Last Done: 05/02/24 01:42 Discharge Date/Time: 05/02/24 01:43 Print Language: Croatian
[2024-05-01 17:13] LABS: MANUAL DIFF FLAG NO
[2024-05-01 17:19] LABS: Basophils Absolute Auto 0.1 X10*3/uL (0.0-0.2); Basophils Percent Auto 0.8 % (0-2); Eosinophils Absolute Auto 0.1 X10*3/uL (0.0-0.4); Eosinophils Percent Auto 1.1 % (0-4); Hemoglobin 12.6 g/dl (12.0-16.0); Imm Gran Abs Auto 0.03 X10*3/uL (0.00-0.03); Imm Gran Pct Auto 0.4 % (0.0-0.4); Lymphocytes Absolute Auto 1.5 X10*3/uL (1.2-4.9); Lymphocytes Percent Auto 20.9 % (20-40); Mean Corpuscular HGB Conc 31.5 g/dl (31.0-35.0); Mean Corpuscular Hemoglobin 26.4 pg (27.0-33.0); Mean Corpuscular Volume 83.7 fL (80.0-98.0); Mean Platelet Volume 9.8 fL (9.4-12.3); Monocytes Absolute Auto 0.8 X10*3/uL (0.1-1.2); Monocytes Percent Auto 11.9 % (2-11); Neutrophils Absolute Auto 4.6 x10*3/uL (2.0-8.3); Neutrophils Percent Auto 64.9 % (45-73); Platelet Count 321 X10*3/uL (160-400); Red Blood Count 4.78 X10*6/uL (4.20-5.50); Red Cell Distribution Width 15.3 % (11.0-16.0); White Blood Count 7.1 X10*3/uL (4.8-10.8)
[2024-05-01 17:30] LABS: Alanine Aminotransferase 23 U/L (0-31); Albumin Level 3.8 g/dL (3.5-5.0); Alkaline Phosphatase 73 U/L (39-117); Anion Gap 11 (12-20); Aspartate Amino Transferase 27 U/L (5-31); Bilirubin Total 0.2 mg/dL (0.0-1.0); Blood Urea Nitrogen 19 mg/dL (9-16); C Reactive Protein 0.31 mg/dL (< or = 0.50); Calcium 8.9 mg/dL (8.4-10.2); Carbon Dioxide 27 mmol/L (22-29); Chloride 105 mmol/L (96-108); Creatinine Clr Calc Pharmacy 70.8; Estimated Glomerular Filt Rate > 60; Glucose Random 83 mg/dL (60-115); Potassium 4.6 mmol/L (3.3-5.1); Sodium 138 mmol/L (135-145); Total Protein 7.6 g/dL (6.5-8.0)
[2024-05-01 18:13] LABS: Erythrocyte Sedimentation Rate 27 MM/HR (0-20)
[2024-05-01 22:00] VITALS: BP 124/77; PULSE 80; RESP 18
--- NOTE | 2024-05-01 23:43 | PC.NURSE ---
Pt in imaging at this time.
[2024-05-02 00:21] VITALS: BP 114/71; PULSE 76; RESP 16; TEMP 36.2; O2SAT 98
[2024-05-02] MEDS: Ketorolac Tromethamine 30 MG/ML VIAL IM (00:24)
[2024-05-02 01:42] VITALS: BP 114/71; PULSE 76; RESP 16; TEMP 36.2; O2SAT 98
== END 2024-05-02 01:43 | disposition home or self-care (01) ==
PROVIDERS: Registered Nurse Emergency; Emergency Provider Emergency Medicine; PCP Internal Medicine Geriatric Medicine
DX: M25.561 Pain in right knee (principal); M25.552 Pain in left hip; R60.0 Localized edema; M54.50 Low back pain, unspecified; Z79.899 Other long term (current) drug therapy
CPT/HCPCS: 36415; 73502; 73564; 80053; 85025; 85652; 86140; 93971; 96372; 99283; 99284; J1885

== ENCOUNTER → 2024-05-01 16:46 | Outpatient (BNV) | payer OTHER, SELFPAY | PROVIDERS: Visit Provider Radiology Diagnostic Radiology | DX: M17.11 Unilateral primary osteoarthritis, right knee (principal) | CPT/HCPCS: 73564 ==

== ENCOUNTER 2024-05-04 16:13 | Emergency (ER) | payer OTHER, SELFPAY ==
--- NOTE | ~2024-05-04 | CT_ITS ---
CLINICAL HISTORY: llq pain ?diverticulitis CT abdomen and pelvis without contrast Comparison: CT of the abdomen and pelvis from 08/24/2023 Findings: No consolidation of the imaged lung bases. Solid abdominal organs appear unchanged by noncontrast imaging. The gallbladder is surgically absent with metal artifacts. Postprocedural changes from gastric sleeve. No small bowel obstruction. Severe stool burden is present, including the cecum. Imaged appendix is within normal limits. Multiple diverticula are redemonstrated. Wall thickening of the sigmoid colon adjacent fluid is concerning for mild diverticulitis. No free intraperitoneal air. No drainable abscess by CT. Mild wall thickening of the urinary bladder is nonspecific. Mild fluid in the pelvis likely secondary to diverticulitis. The uterus is surgically absent. No adnexal soft tissue mass. Mild to moderate osteoarthritis both hips. Degenerative changes include [id number] facet arthropathy, particularly in the lower lumbar spine. Endplate sclerosis is again multifocal. Mild subcutaneous edema of the subcutaneous soft tissues, dependently. IMPRESSION: Mild diverticulitis, including sigmoid colon. No perforation or abscess formation at this time. This document has been electronically signed by: Destin Gibson MD on 05/04/2024 22:09:02
[2024-05-04 16:21] VITALS: BP 138/70; PULSE 85; O2SAT 99
[2024-05-04 17:02] VITALS: BP 125/72; PULSE 85; RESP 16; TEMP 36.2; O2SAT 99; BMI 31.3
--- NOTE | 2024-05-04 17:10 | ED_ITS ---
HPI - General Adult General Chief complaint: General Medical Stated complaint: r groin pain Time Seen by Provider: 05/04/24 20:35 Source: patient Mode of arrival: ambulatory Limitations: no limitations History of Present Illness ED Provider: HPI narrative: Patient's history of diverticulitis in the past was seen here yesterday for right knee pain comes here for pain in the left lower abdomen started earlier today no nausea no vomiting no blood in his stool also noticed hemorrhoids without bleeding patient did not have any pain in the abdomen yesterday, no fever no chills Related Data Home Medications ?Medication ?Instructions ?Recorded ?Confirmed doxepin 75 mg capsule 75 mg PO BEDTIME 11/22/19 01/24/24 estazolam 1 mg tablet 3 mg PO BEDTIME 06/06/20 01/24/24 alendronate 70 mg tablet 70 mg PO TU 06/03/22 01/24/24 cholecalciferol (vitamin D3) 25 25 mcg PO DAILY 06/03/22 01/24/24 mcg (1,000 unit) tablet perphenazine 4 mg tablet 4 mg PO BID@1200,2100 06/04/22 01/24/24 levothyroxine 100 mcg tablet 100 mcg PO DAILY@0600 10/01/22 01/24/24 lidocaine 5 % topical patch 1 patch topical DAILY 10/01/22 01/24/24 magnesium oxide 400 mg (241.3 mg 400 mg PO DAILY@1200 10/01/22 01/24/24 magnesium) tablet omeprazole 40 mg capsule,delayed 40 mg PO DAILY@0630 10/01/22 01/24/24 release venlafaxine 25 mg tablet 25 mg PO DAILY@1200 10/01/22 01/24/24 pyridoxine (vitamin B6) 100 mg 200 mg PO DAILY@1200 11/27/22 01/24/24 tablet semaglutide (weight loss) 1 mg/0.5 1 mg subcut DAILY 08/11/23 01/24/24 mL subcutaneous pen injector (Oren) Previous Rx's ?Medication ?Instructions ?Recorded meclizine 25 mg tablet (Dramamine 25 mg PO TID PRN dizziness #20 tabs 12/19/20 Less Drowsy) ondansetron 4 mg disintegrating 4 mg PO Q8H PRN nausea and 09/10/22 tablet vomiting #10 tabs ondansetron 4 mg disintegrating 4 mg PO Q6H PRN nausea and 04/16/23 tablet vomiting #10 tabs sucralfate 1 gram tablet 1 g PO TID PRN upper abdominal 04/16/23 pain #30 tabs cetirizine 10 mg tablet 10 mg PO DAILY PRN allergy 06/04/23 symptoms #30 tabs albuterol sulfate 2.5 mg/3 mL 2.5 mg (3 mL) inhalation Q4H PRN 08/11/23 (0.083 %) solution for nebulization shortness of breath or wheezing 30 days #180 mL polyethylene glycol 3350 17 17 g PO DAILY #850 grams 08/26/23 gram/dose oral powder (Miralax) ibuprofen 800 mg tablet 800 mg PO Q8H PRN pain #30 tabs 09/10/23 albuterol sulfate 90 mcg/actuation 2 puff PO Q6H PRN for wheezing 30 11/01/23 aerosol inhaler (Ventolin HFA) days #18 grams methocarbamol 750 mg tablet 1,500 mg (2 x 750 mg) PO QID PRN 12/10/23 pain #30 tabs acetaminophen 325 mg capsule 650 mg (2 x 325 mg) PO Q6H PRN 12/17/23 (Tylenol) pain #21 caps prednisone 20 mg tablet 40 mg (2 x 20 mg) PO DAILY 5 days 12/17/23 #10 tabs azithromycin 250 mg tablet See Rx Instructions PO .COMPLEX #6 01/28/24 tabs benzonatate 100 mg capsule 100 mg PO BID PRN cough #14 caps 01/28/24 prednisone 20 mg tablet 40 mg (2 x 20 mg) PO DAILY 5 days 01/28/24 #10 tabs fluticasone 250 mcg-salmeterol 50 1 inh inhalation BID ASTHMA 30 02/14/24 mcg/dose blistr powdr for days #60 ea inhalation (Advair Diskus) amoxicillin 875 mg-potassium 1 tab PO BID #20 tabs 05/04/24 clavulanate 125 mg tablet cyclobenzaprine 10 mg tablet 10 mg PO Q8H #20 tabs 05/05/24 oxycodone 5 mg tablet 5 mg PO Q6H PRN pain #20 tabs 05/05/24 Allergies Allergy/AdvReac Type Severity Reaction Status Date / Time nalbuphine [From Nubain] Allergy Severe Anaphylaxis Verified 05/04/24 17:02 Review of Systems 2 Review of Systems: Yes all other systems are reviewed and are negative [facility] Past Medical History Medical History Bronchitis Somnolence, daytime Obesity (BMI 30-39.9) Nausea & vomiting Migraine Syncope Pseudotumor cerebri Kidney calculi Crystal arthropathy Right shoulder injury Kidney tumor COVID-19 vaccine administered Thyroid disease Colon polyp Diverticulosis of colon Bronchial asthma Acid reflux Surgical History Status post excision of lipoma (09/10/23) History of esophagogastroduodenoscopy (EGD) History of surgery on wrist History of hysterectomy Previous section Hx laparoscopic cholecystectomy Hx of gastric bypass (03/12/15) Hx of colonoscopy Family History Family History Father Heart disease History of open heart surgery Mother Heart disease Social History Social History Household Members: None Household Members Other:: alone Are you a primary ocular care technician to a significant other at home: No Do you presently have visiting nurse or other home services: No Alcohol intake: never Patient Tobacco Use Status: Former Tobacco user Tobacco use type: Cigarette service: No Current occupational status: disabled Physical Exam ED Vital Signs: Vital Signs - 24 hr 05/04/24 17:02 05/04/24 20:27 05/04/24 22:29 Temperature 97.2 F 98.2 F 98 F Pulse Rate 85 82 82 Respiratory Rate 16 20 20 Blood Pressure 125/72 111/65 132/81 Pulse Oximetry 99 98 99 Oxygen Delivery Method Room Air Room Air Room Air 05/04/24 23:46 05/05/24 00:36 Temperature 97.9 F 97.9 F Pulse Rate 80 80 Respiratory Rate 16 16 Blood Pressure 109/65 109/65 Pulse Oximetry 98 98 Oxygen Delivery Method Room Air Room Air BMI result Body Mass Index 31.3 Appearance: Alert. Oriented X3. No acute distress. Eyes: PERRLA, No Nystagmus ENT: Pharynx normal. Oral Mucosa moist Neck: Normal inspection. Neck supple. CVS: Normal heart rate and rhythm. Pulses normal. Respiratory: No respiratory distress. Equal air entry bilateral, no wheezing/rales/rhonchi Abdomen: Soft and deep tenderness left lower quadrant. Bowel sounds are present, no mass palpable, no CVA tenderness no hemorrhoids noticed Skin: Skin warm and dry. Normal skin color. Normal skin turgor. Extremities: No lower extremity edema. No calf tenderness Neuro: Oriented X 3. No motor deficit. Course Course Course Narrative: This is an RME: Additional HPI, ROS, PE not included below will be deferred to primary provider. RME assessment and note performed by: Mary Benitez PA-C This is a [id number]-female who presents to the Er with complaints of RLQ abdominal pain, dark/foul urine. Patient was here on Wednesday for groin pain which has resolved, also endorsing new external hemorrhoids, denies any rectal bleeding. Plan: Labs, UA, further Er eval needed Medications Administered Discontinued Medications Generic Name Dose Route Start Last Admin Trade Name Sid PRN Reason Stop Dose Admin Amoxicillin/Clavulanate Potassium 875 mg 05/04/24 23:17 05/04/24 23:29 Amoxicillin/Potassium Clav 875 Mg Tablet PO 05/04/24 23:18 875 mg ONCE ONE Administration Cyclobenzaprine HCl 10 mg 05/04/24 23:22 05/04/24 23:28 Cyclobenzaprine Hcl 10 Mg Tablet PO 05/04/24 23:23 10 mg ONCE ONE Administration Morphine Sulfate 15 mg 05/04/24 23:22 05/04/24 23:28 Morphine Sulfate Immed Release 15 Mg Tablet PO 05/04/24 23:23 15 mg ONCE ONE Administration Medical Decision Making Medical Decision Making [facility] Narrative: Patient's left lower quadrant pain with history of diverticulitis labs are stable will do the CT scan of the abdomen CT scan showed mild diverticulitis will prescribe Augmentin patient does have left groin strain will prescribe oxycodone and Flexeril advised to follow up as outpatient Differential Diagnosis Differential Diagnoses: The differential diagnosis associated with the presentation includes Lab Data [facility] Lab Attestation statement: I reviewed the patient's lab results. 05/04/24 17:24 05/04/24 17:24 Labs: Lab Results 05/04/24 Range/Units 17:24 WBC 7.2 (4.8-10.8) X10*3/uL RBC 4.90 (4.20-5.50) X10*6/uL Hgb 12.8 (12.0-16.0) g/dl Hct 41.0 (37.0-47.0) % MCV 83.7 (80.0-98.0) fL MCH 26.1 L (27.0-33.0) pg MCHC 31.2 (31.0-35.0) g/dl RDW 15.5 (11.0-16.0) % Plt Count 323 (160-400) X10*3/uL MPV 9.7 (9.4-12.3) fL Immature Gran % (Auto) 0.4 (0.0-0.4) % Neut % (Auto) 61.6 (45-73) % Lymph % (Auto) 23.8 (20-40) % [place] % (Auto) 11.4 H (2-11) % Eos % (Auto) 2.1 (0-4) % Baso % (Auto) 0.7 (0-2) % Lymph # (Auto) 1.7 (1.2-4.9) X10*3/uL [place] # (Auto) 0.8 (0.1-1.2) X10*3/uL Eos # (Auto) 0.2 (0.0-0.4) X10*3/uL Baso # (Auto) 0.1 (0.0-0.2) X10*3/uL Abs Immat Gran (auto) 0.03 (0.00-0.03) X10*3/uL Absolute Neuts (auto) 4.4 (2.0-8.3) x10*3/uL Absolute Nucleated RBC 0.000 (0.0-0.012) X10*3/uL Nucleated RBC % (auto) 0.0 (0.0-0.2) /100WBC Sodium 139 (135-145) mmol/L Potassium 4.5 (3.3-5.1) mmol/L Chloride 106 (96-108) mmol/L Carbon Dioxide 26 (22-29) mmol/L Anion Gap 12 (12-20) BUN 16 (9-16) mg/dL Creatinine 0.72 (0.5-1.4) mg/dL Estim Creat Clear Calc 78.0 Estimated GFR > 60 Random Glucose 80 (60-115) mg/dL Calcium 9.1 (8.4-10.2) mg/dL Magnesium 2.3 (1.6-2.6) mg/dL Total Bilirubin 0.2 (0.0-1.0) mg/dL Direct Bilirubin < 0.2 (0.0-0.5) mg/dL AST 29 (5-31) U/L ALT 24 (0-31) U/L Alkaline Phosphatase 66 (39-117) U/L Total Protein 7.5 (6.5-8.0) g/dL Albumin 3.7 (3.5-5.0) g/dL Lipase 23 (8-78) U/L Urine Color Yellow Urine Appearance Clear Urine pH 5.5 (5.0-9.0) Ur Specific [place] 1.010 (1.005-1.025) Urine Protein Negative (Neg-Trace) mg/dL Urine Glucose (UA) Negative (Negative) mg/dL Urine Ketones Negative (Negative) mg/dL Urine Blood Small (1+) H (Negative) Urine Nitrite Negative (Negative) Ur Leukocyte Esterase Negative (Negative) Urine RBC 0-2 (0-2) /HPF Urine WBC 0-5 (0-5) /HPF Ur Squamous Epith Cells 0-2 (0-2) /HPF Urine Bacteria None Seen (None Seen) Hyaline Casts 0-2 (0-2) /LPF Discharge Plan Discharge Clinical Impression: Diverticulitis, Strain of left inguinal muscle Patient Disposition: Home, Self-Care Instructions: Diverticulitis (ED), Groin Strain (ED) Additional Instructions: Drink plenty of fluids Clear liquids advanced food as tolerated Antibiotic as prescribed Pain medication muscle relaxant as prescribed You have strain of the muscles of the groin and mild diverticulitis Follow with your PCP as needed Prescriptions: New amoxicillin-pot clavulanate 875-125 mg tablet 1 tab PO BID Qty: 20 0RF cyclobenzaprine 10 mg tablet 10 mg PO Q8H Qty: 20 0RF oxycodone 5 mg tablet 5 mg PO Q6H PRN (Reason: pain) Qty: 20 0RF Rx Instructions: Partial Fill upon patient request. No Action polyethylene glycol 3350 [Miralax] 17 gram/dose powder 17 g PO DAILY Qty: 850 2RF albuterol sulfate [Ventolin HFA] 90 mcg/actuation HFA aerosol inhaler 2 puff PO Q6H PRN (Reason: for wheezing) 30 Days Qty: 18 6RF fluticasone propion-salmeterol [Advair Diskus] 250-50 mcg/dose blister with device 1 inh inhalation BID 30 Days Qty: 60 5RF meclizine [Dramamine Less Drowsy] 25 mg tablet 25 mg PO TID PRN (Reason: dizziness) Qty: 20 0RF perphenazine 4 mg tablet 4 mg PO BID@1200,2100 pyridoxine (vitamin B6) 100 mg tablet 200 mg PO DAILY@1200 ondansetron 4 mg tablet,disintegrating 4 mg PO Q6H PRN (Reason: nausea and vomiting) Qty: 10 0RF sucralfate 1 gram tablet 1 g PO TID PRN (Reason: upper abdominal pain) Qty: 30 0RF methocarbamol 750 mg tablet 1,500 mg PO QID PRN (Reason: pain) Qty: 30 0RF ondansetron 4 mg tablet,disintegrating 4 mg PO Q8H PRN (Reason: nausea and vomiting) Qty: 10 0RF cetirizine 10 mg tablet 10 mg PO DAILY PRN (Reason: allergy symptoms) Qty: 30 0RF ibuprofen 800 mg tablet 800 mg PO Q8H PRN (Reason: pain) Qty: 30 0RF prednisone 20 mg tablet 40 mg PO DAILY 5 Days Qty: 10 0RF acetaminophen [Tylenol] 325 mg capsule 650 mg PO Q6H PRN (Reason: pain) Qty: 21 0RF azithromycin 250 mg tablet See Rx Instructions .ROUTE .COMPLEX Qty: 6 0RF Rx Instructions: For 250 mg dose pack: take 500 mg today (day 1), then 250 mg for 4 days (days 2-5) benzonatate 100 mg capsule 100 mg PO BID PRN (Reason: cough) Qty: 14 0RF prednisone 20 mg tablet 40 mg PO DAILY 5 Days Qty: 10 0RF doxepin 75 mg capsule 75 mg PO BEDTIME estazolam 1 mg tablet 3 mg PO BEDTIME alendronate 70 mg tablet 70 mg PO TU cholecalciferol (vitamin D3) 25 mcg (1,000 unit) tablet 25 mcg PO DAILY omeprazole 40 mg capsule,delayed release(DR/EC) 40 mg PO DAILY@0630 lidocaine 5 % adhesive patch,medicated 1 patch topical DAILY venlafaxine 25 mg tablet 25 mg PO DAILY@1200 magnesium oxide 400 mg (241.3 mg magnesium) tablet 400 mg PO DAILY@1200 levothyroxine 100 mcg tablet 100 mcg PO DAILY@0600 Wegovy 1 mg/0.5 mL pen injector 1 mg subcut DAILY albuterol sulfate 2.5 mg /3 mL (0.083 %) solution for nebulization 2.5 mg inhalation Q4H PRN (Reason: shortness of breath or wheezing) 30 Days Qty: 180 3RF Interventions: ED Discharge Assessment Last Done: 05/05/24 00:36 Discharge Date/Time: 05/05/24 00:53 Print Language: Danish
[2024-05-04 17:35] LABS: MANUAL DIFF FLAG NO
[2024-05-04 17:39] LABS: Appearance Urine Clear; Color Urine Yellow; Glucose Urine UA Negative (Negative); Leukocyte Esterase Urine Negative (Negative); Nitrite Urine Negative (Negative); PH 5.5 (5.0-9.0); UMIC TRIGGER UACC YES; Urine Blood Small (1+) (Negative); Urine Ketones Negative (Negative); Urine Protein Negative (Neg-Trace)
[2024-05-04 17:50] LABS: Basophils Absolute Auto 0.1 X10*3/uL (0.0-0.2); Basophils Percent Auto 0.7 % (0-2); Eosinophils Absolute Auto 0.2 X10*3/uL (0.0-0.4); Eosinophils Percent Auto 2.1 % (0-4); Hemoglobin 12.8 g/dl (12.0-16.0); Imm Gran Abs Auto 0.03 X10*3/uL (0.00-0.03); Imm Gran Pct Auto 0.4 % (0.0-0.4); Lymphocytes Absolute Auto 1.7 X10*3/uL (1.2-4.9); Lymphocytes Percent Auto 23.8 % (20-40); Mean Corpuscular HGB Conc 31.2 g/dl (31.0-35.0); Mean Corpuscular Hemoglobin 26.1 pg (27.0-33.0); Mean Corpuscular Volume 83.7 fL (80.0-98.0); Mean Platelet Volume 9.7 fL (9.4-12.3); Monocytes Absolute Auto 0.8 X10*3/uL (0.1-1.2); Monocytes Percent Auto 11.4 % (2-11); Neutrophils Absolute Auto 4.4 x10*3/uL (2.0-8.3); Neutrophils Percent Auto 61.6 % (45-73); Platelet Count 323 X10*3/uL (160-400); Red Cell Distribution Width 15.5 % (11.0-16.0); White Blood Count 7.2 X10*3/uL (4.8-10.8)
[2024-05-04 17:52] LABS: Bacteria Urine None Seen (None Seen); Hyaline Casts Urine 0-2 /LPF (0-2); RBC Urine 0-2 /HPF (0-2); Squamous Epithelial Cell Urine 0-2 /HPF (0-2); WBC Urine 0-5 /HPF (0-5)
[2024-05-04 18:00] LABS: Alanine Aminotransferase 24 U/L (0-31); Albumin Level 3.7 g/dL (3.5-5.0); Alkaline Phosphatase 66 U/L (39-117); Anion Gap 12 (12-20); Aspartate Amino Transferase 29 U/L (5-31); Bilirubin Direct < 0.2 mg/dL (0.0-0.5); Bilirubin Total 0.2 mg/dL (0.0-1.0); Blood Urea Nitrogen 16 mg/dL (9-16); Calcium 9.1 mg/dL (8.4-10.2); Carbon Dioxide 26 mmol/L (22-29); Chloride 106 mmol/L (96-108); Estimated Glomerular Filt Rate > 60; Glucose Random 80 mg/dL (60-115); Lipase 23 U/L (8-78); Magnesium 2.3 mg/dL (1.6-2.6); Potassium 4.5 mmol/L (3.3-5.1); Sodium 139 mmol/L (135-145); Total Protein 7.5 g/dL (6.5-8.0)
[2024-05-04 20:27] VITALS: BP 111/65; PULSE 82; RESP 20; TEMP 36.8; O2SAT 98
[2024-05-04 22:29] VITALS: BP 132/81; PULSE 82; RESP 20; TEMP 36.6; O2SAT 99
--- NOTE | 2024-05-04 23:09 | PC.NURSE ---
pt a&ox4. respirations even and unlabored. pt reports sudden onset of lower right quadrant pain starting today. pt reports she has been having trouble and pain with urination. pt denies nausea and vomiting. pt reports she was seen here yesterday and her over the counter medications have provided no relief.
[2024-05-04] MEDS: Cyclobenzaprine HCl 10 MG TABLET PO (23:28)
[2024-05-04] MEDS: Morphine Sulfate Immed Release 15 MG TABLET PO (23:28)
[2024-05-04] MEDS: Amoxicillin/Potassium Clav 875 MG TABLET PO (23:29)
[2024-05-04 23:46] VITALS: BP 109/65; PULSE 80; RESP 16; TEMP 36.6; O2SAT 98
[2024-05-05 00:36] VITALS: BP 109/65; PULSE 80; RESP 16; TEMP 36.6; O2SAT 98
== END 2024-05-05 00:53 | disposition home or self-care (01) ==
PROVIDERS: Physician Assistant Medical; Emergency Provider Internal Medicine; PCP Internal Medicine Geriatric Medicine
DX: K57.32 Diverticulitis of large intestine without perforation or abscess without bleeding (principal); S39.011A Strain of muscle, fascia and tendon of abdomen, initial encounter; X58.XXXA Exposure to other specified factors, initial encounter; R10.32 Left lower quadrant pain; Y93.9 Activity, unspecified; Y92.9 Unspecified place or not applicable; Y99.9 Unspecified external cause status; Z79.899 Other long term (current) drug therapy
CPT/HCPCS: 36415; 74176; 80048; 80076; 81001; 83690; 83735; 85025; 99283; 99284

== ENCOUNTER → 2024-05-04 20:51 | Outpatient (BNV) | payer OTHER, SELFPAY | PROVIDERS: Emergency Provider Internal Medicine; PCP Internal Medicine Geriatric Medicine; Visit Provider Radiology Neuroradiology | DX: R10.32 Left lower quadrant pain (principal) | CPT/HCPCS: 74176 ==

== ENCOUNTER 2024-05-10 08:41 | Outpatient (AMB) | payer OTHER, SELFPAY ==
--- NOTE | 2024-05-10 08:42 | MHC.OFFVIS ---
Intake Visit Reasons: ED f/u New prob left hip pain Intake Note: Mga is a 63 year old female who presents today for an ER follow up of left hip pain. Patient was recently seen at [facility] due to groin pain. Patient reports groin pain has been present for about 2 weeks. She denies any recent injury however she mentions in December she fell of a 4ft ladder. She describes her discomfort as a pulling sensation. States numbness and tingling in both of her legs. Finds some relief with Tylenol extra strength and muscle relaxer that was prescribed. No previous tx. Allergies nalbuphine [From Nubain] Allergy (Severe, Verified 05/04/24 17:02) Anaphylaxis oxycodone Adverse Reaction (Verified 05/10/24 08:50) itchy tramadol Adverse Reaction (Verified 05/10/24 08:50) itchy HPI HPI ED f/u New prob left hip pain: Details: 63-year-old female returns to the office today for a left-sided buttock and groin pain. She relates this to the fall she had back in December when she fell off a ladder. She complains of pain in the low back region when she is lying down which extends into the groin. She has difficulty with ambulation and lifting the leg. She has not been to physical therapy. She states she has a history of steroid injections in her spine with no relief. [facility] Medical History Bronchitis Somnolence, daytime Obesity (BMI 30-39.9) Nausea & vomiting Migraine Syncope Pseudotumor cerebri Kidney calculi Crystal arthropathy Right shoulder injury Kidney tumor COVID-19 vaccine administered Thyroid disease Colon polyp Diverticulosis of colon Bronchial asthma Acid reflux Surgical History Status post excision of lipoma (09/10/23) History of esophagogastroduodenoscopy (EGD) History of surgery on wrist History of hysterectomy Previous section Hx laparoscopic cholecystectomy Hx of gastric bypass (03/12/15) Hx of colonoscopy Family History Father Heart disease History of open heart surgery Mother Heart disease Social History Household Members: None Household Members Other:: alone Are you a primary career placement services counselor to a significant other at home: No Do you presently have visiting nurse or other home services: No Alcohol intake: never Patient Tobacco Use Status: Former Tobacco user Tobacco use type: Cigarette service: No Current occupational status: disabled Review of Systems Const All systems reviewed & are unremarkable except as noted in HPI and below Physical Exam Const General: cooperative and no acute distress Orientation/consciousness: patient oriented x3 Resp Effort & Inspection: normal respiratory effort and able to speak in complete sentences Cardio Peripheral pulses: Peripheral pulses 2+ throughout Neuro General: patient oriented x3 Extrem Other: Left hip is normal to inspection. She is hypersensitive to light palpation along the SI joint and also the groin region. When lying down she holds the left hip in a flexed position. Results Reviewed Results Reviewed: X-rays of the left hip previously obtained show mild arthritis Assessment & Plan Assessment & Plan (1) Sciatica, left side: Code(s): M54.32 - Sciatica, left side Category: Medical Plan: I explained to the patient I feel the source of her pain is from her low back. I strongly recommend a course of physical therapy to work on retraining the lumbar core and surrounding hip muscles. I did prescribe a prescription for Celebrex twice a day to take for the pain and inflammation. I did place a referral for pain management so she can further discuss options whether it be steroid injections versus nerve block versus stimulator. She is content with this plan and will see me back as needed. She was also fit for bilateral Genumed knee braces to help with her stability given her previous diagnosis of arthritis in the knees. Orders: Orders PT Evaluation and Treatment Today M54.32 - Sciatica, left side Referrals Pain Management Referral M54.32 - Sciatica, left side Medications: New celecoxib (Celebrex) 200 mg PO BID 60 caps 3RF 30 days Coding Level of Care Code Est Pt Level 3 (03534) Complex EM visit Add On G2211 Diagnoses Sciatica, left side M54.32
== END 2024-05-10 09:28 | disposition home or self-care (01) ==
LOC: HO.HOS 08:41
PROVIDERS: PCP Internal Medicine Geriatric Medicine; Visit Provider Physician Assistant
DX: M17.0 Bilateral primary osteoarthritis of knee (principal); M54.32 Sciatica, left side
CPT/HCPCS: 99213; G2211

== ENCOUNTER → 2024-05-10 08:41 | Outpatient (BNVA) | payer OTHER, SELFPAY | PROVIDERS: PCP Internal Medicine Geriatric Medicine; Visit Provider Physician Assistant | DX: M17.0 Bilateral primary osteoarthritis of knee (principal); M54.32 Sciatica, left side | CPT/HCPCS: 99212 ==

== ENCOUNTER → 2024-05-11 14:35 | Outpatient (BNVA) | payer OTHER, SELFPAY | PROVIDERS: PCP Internal Medicine Geriatric Medicine; Visit Provider Physician Assistant | DX: M17.0 Bilateral primary osteoarthritis of knee (principal); Z46.89 Encounter for fitting and adjustment of other specified devices | CPT/HCPCS: 99211 ==

== ENCOUNTER 2024-05-11 15:32 | Outpatient (AMB) | payer OTHER, SELFPAY ==
--- NOTE | 2024-05-11 15:48 | A.OFFVIS_ITS ---
Intake Visit Reasons: OV- Bilateral knee brace fitting Intake Note: Mag is a 63 year old female who presents today for a brace fitting. Patient reports reaction knee braces that were given at her visit yesterday is causing her discomfort, digging in the sides of her knee causing an increase of pain. She would like to be fitted for different braces. Allergies nalbuphine [From Nubain] Allergy (Severe, Verified 05/11/24 15:52) Anaphylaxis oxycodone Adverse Reaction (Verified 05/11/24 15:52) itchy tramadol Adverse Reaction (Verified 05/11/24 15:52) itchy HPI HPI OV- Bilateral knee brace fitting: Details: Patient comes in today for bilateral knee braces. She was seen on 05/10/2024 and was fit for bilateral knee braces but states they are not comfortable. At this time she did not bring in her braces for exchange of new braces. [facility] Medical History Bronchitis Somnolence, daytime Obesity (BMI 30-39.9) Nausea & vomiting Migraine Syncope Pseudotumor cerebri Kidney calculi Crystal arthropathy Right shoulder injury Kidney tumor COVID-19 vaccine administered Thyroid disease Colon polyp Diverticulosis of colon Bronchial asthma Acid reflux Surgical History Status post excision of lipoma (09/10/23) History of esophagogastroduodenoscopy (EGD) History of surgery on wrist History of hysterectomy Previous section Hx laparoscopic cholecystectomy Hx of gastric bypass (03/12/15) Hx of colonoscopy Family History Father Heart disease History of open heart surgery Mother Heart disease Social History Household Members: None Household Members Other:: alone Are you a primary day care provider to a significant other at home: No Do you presently have visiting nurse or other home services: No Alcohol intake: never Patient Tobacco Use Status: Former Tobacco user Tobacco use type: Cigarette service: No Current occupational status: disabled Assessment & Plan Assessment & Plan (1) Osteoarthritis of right knee: Code(s): M17.11 - Unilateral primary osteoarthritis, right knee Category: Medical (2) Osteoarthritis of left knee: Code(s): M17.12 - Unilateral primary osteoarthritis, left knee Category: Medical Plan Patient was fit for bilateral Genumed knee braces in the office today. She will return the reaction knee braces she was fit for on 05/10/2024 so she is not billed for these knee braces. She understands if she does not return the knee braces or they are in poor condition she will need to pay [id number] for the Genumed knee braces. Coding Level of Care Code Est Pt Level 1 (09152) Complex EM visit Add On G2211 Diagnoses Osteoarthritis of right knee M17.11 Osteoarthritis of left knee M17.12
--- OUTSIDE RECORDS SUMMARY | 2024-05-11 19:01 | XMS_ITS | Encounter Summary ---
Author Organization [employer] Address [address] [facility] 7t [place] [address] Care Team Providers Care Farm Implement Engine Mechanic Name Role Phone Name, Gregg DIAMOND Primary Care Provider [phone] Reason for Visit * Reason Onset Date Comments Return Call 05/03/2024 Encounter Details Date Type Department Care Team ([facility] st Contact Info) Description 05/03/2024 Telephone [facility] [address] [place] [address] Name, MD Gregg [address] [place] [address] Return Call Social History Tobacco Use Types Packs/Day Years Used Date Smoking Tobacco: Former Cigarettes Passive Smoke Exposure: Past Smokeless Tobacco: Never Alcohol Use Standard Drinks/Week Comments Not Currently 0 (1 standard drink = 0.6 oz pur e alcohol) Alcohol Answer Date Recorded Frequency of Alcohol Consumption Not on file 09/01/2023 Average Number of Drinks Not on file 024 Frequency of Binge Drinking Not on file 08/15 Score 0 09/01/2023 Depression Answer Date Recorded Patient Health Questionnaire-9 Score 0 09/01/2023 Patient Health Questionnaire-9 Score 0 09/01/2023 Last PHQ-9: Questionnaire Data Not on file 0 09/01/2023 Housing Stability Answer Date Recorded What is your housing situation today? I have loly loredo 09/01/[address] you li ve. Do you have problems with any of the following? None of the above 09/01/2023 Food Insecurity Answer Date Recorded Within the past 12 months, y ou worried that your food would run out before you got money to buy more: Never True 09/01/2023 Within the past 12 months,th e food you bought just didn't last and you didn't have enough money to get more: Never True Transportation Answer Date Recorded In the past 12 months, has l ack of transportation kept you from medical appts, meetings, work or from getting things needed for daily living? No 09/01/2023 Utilities Answer Date Recorded In the past 12 months, has t he electric, gas, oil or water company threatened to shut off services in your home? No 09/01/2023 Depression Answer Date Recorded Patient Health Questionnaire-2 Score 0 09/01/2023 Internet Access Answer Date Recorded Internet Access Q1 No 10/15/2023 Internet Access Q2 I do not want or need it 09/17 Comments Unknown Sex and Gender Information Value Date Recorded Sex Assigned at Female 12/15/2021 10:22 AM EDT Legal Sex Female 10:22 AM EDT Gender Identity Female 12/15/2021 10:22 AM EDT Sexual Orientation Straight 12/15/2021 10 :22 AM EDT documented as of this encounter Miscellaneous Notes * Telephone Encounter - Salome Castañeda RN - 05/03/2024 1:59 PM EDT TC incoming from pt on critical line. Pt states she is returning call from provider and requesting to speak to PCP. Nurse to task to team nurses. documented in this encounter Plan of Treatment Upcoming Encounters Date Type Department Care Team (Late st Contact Info) Description 05/12/2024 9:00 AM EDT Office Visit [facility] ADULT DENTAL [address] [place] [address] Ayan Calvin, RAMIREZ [address] [place] [address] 07/17/2024 11:30 AM EDT Office Visit [facility] MEDICINE [address] [place] [address] Name, MD Gregg [address] [place] [address] 09/21/2024 8:00 AM EDT Office Visit [facility] ADULT DENTAL [address] [place] [address] Faye Mi documented as of this encounter Visit Diagnoses Not on filedocumented in this encounter Additional Health Concerns Assessment Noted Time PHQ-9 Depression Total Score: 0 09/01/19 24 10:42 AM EDT documented as of this encounter Care Teams Farm Implement Engine Mechanic Relationship Specialty Start Date End Date Name, MD Gregg [address] [place] [address] PCP - General Family Medicine 04/16/15 documented as of this encounter
--- OUTSIDE RECORDS SUMMARY | 2024-05-11 19:01 | XMS_ITS | Encounter Summary ---
Author Organization [employer] Address [address] [facility] [address] 7[address] [place] [address] Care Team Providers Care Assessment Clinician Name Role Phone Name, Gregg DIAMOND Primary Care Provider [phone] Encounter Details Date Type Department Care Team (Latest Contact Info) Description 05/03/2024 Travel Social History Tobacco Use Types Packs/Day Years [...] AM EDT documented as of this encounter Plan of Treatment Upcoming Encounters Date Type Department Care Team (Late st Contact Info) Description 05/12/2024 9:00 AM EDT Office Visit [facility] ADULT DENTAL [address] [place] [address] Ayan Calvin, RAMIREZ [address] [place] [address] 07/17/2024 11:30 AM EDT Office Visit [facility] MEDICINE [address] [place] [address] Name, MD Gregg [address] [place] [address] 09/21/2024 8:00 AM EDT Office Visit [facility] ADULT DENTAL [address] [place] [address] Faye Mi documented as of this encounter Visit Diagnoses Not on filedocumented in this encounter Additional Health Concerns Assessment Noted Time PHQ-9 Depression Total Score: 0 09/01/19 24 10:42 AM EDT documented as of this encounter Care Teams Assessment Clinician Relationship Specialty Start Date End Date Name, MD Gregg [address] [place] [address] PCP - General Family Medicine 04/16/15 documented as of this encounter
--- OUTSIDE RECORDS SUMMARY | 2024-05-11 19:01 | XMS_ITS | Encounter Summary ---
Author Organization [employer] Address [address] [facility] 7t [place] [address] Care Team Providers Care Crucible Packer Name Role Phone Name, Gregg DIAMOND Primary Care Provider [phone] Reason for Visit * Reason Comments Dentures Encounter Details Date Type Department Care Team ([facility] st Contact Info) Description 05/01/2024 9:00 AM EDT Office Visit [facility] ADULT DENTAL [address] [place] [address] Ayan Calvin, DMD [address] [place] [address] Social History Tobacco Use Types Packs/Day Years [...] AM EDT documented as of this encounter Last Filed Vital Signs Vital Sign Reading Time Taken Comments Blood Pressure 130/88 05/01/2024 8:57 AM EDT Pulse - - Temperature - - Respiratory Rate - - Oxygen Saturation - - Inhaled Oxygen Concentration - - Weight - - Height - - Body Mass Index - - documented in this encounter Progress Notes * Ayan Calvin DMD - 05/01/2024 9:00 AM EDT Teeth try in of upper and lower casting P/P P/ fits fine and pt likes the esthetic /P cannot be inserted at LR posterior area and it bothers her at #31 area Retake new impression for /P and bite registration of P/P NV: Another teeth try in of P/P Bacilio documented in this encounter Plan of Treatment Upcoming Encounters Date Type Department Care Team (Late st Contact Info) Description 05/12/2024 9:00 AM EDT Office Visit [facility] ADULT DENTAL [address] [place] [address] Ayan Calvin DMD [address] [place] [address] 07/17/2024 11:30 AM EDT Office Visit [facility] MEDICINE [address] [place] [address] [place] [address] 09/21/2024 8:00 AM EDT Office Visit [facility] ADULT DENTAL [address] [place] [address] Faye Mi Scheduled Orders Name Type Priority Associated Diagnoses Orde r Schedule WAX TRY IN Dental Routine 1 Occurrences starting 05/01/2024 documented as of this encounter Procedures Procedure Name Priority Date/Time Associated Diagnosis Comments WAX TRY IN Routine 05/01/2024 9:00 AM EDT documented in this encounter Visit Diagnoses Not on filedocumented in this encounter Additional Health Concerns Assessment Noted Time PHQ-9 Depression Total Score: 0 09/01/19 24 10:42 AM EDT documented as of this encounter Care Teams Crucible Packer Relationship Specialty Start Date End Date Name, MD Gregg [address] [place] [address] PCP - General Family Medicine 04/16/15 documented as of this encounter
--- OUTSIDE RECORDS SUMMARY | 2024-05-11 19:01 | XMS_ITS | Encounter Summary ---
Author Organization [employer] Address [address] [facility] 7t [place] [address] Care Team Providers Care Physical Therapist Assistant Name Role Phone Name, Gregg DIAMOND Primary Care Provider [phone] Reason for Visit * Reason Onset Date Comments ER Follow-up 05/02/2024 Nurse Triage 05/02/2024 Encounter Details Date Type Department Care Team ([facility] st Contact Info) Description 05/02/2024 Telephone [facility] MEDICINE [address] [place] [address] Name, MD Gregg [address] [place] [address] ER Follow-up; Nurse Triage Social History Tobacco Use Types Packs/Day Years [...] encounter Miscellaneous Notes * Telephone Encounter - Maura Taylor RN - 05/02/2024 1:55 PM EDT Incoming TC from pt. RN informed pt of the following information. RN spoke with fariha Mccoy/PA specialist who states there is not an update on the tracking website so she will send a messageto find out more information regarding the status of the rollator walker. TC placed to [facility] pharamcyregarding the fosamax. Lori states the medication must stay in its original packaging and cannot be added to MEDBOX. Per Malaika Hawkins RN note (see below), pt would like to be prescribed an alternate medication that can be added to her MEDBOX. Pt states she was told in the ED to call PCP and tell them you need a referral to rheumatology due to swelling and arthritis. Pt reports she will not be able to come to her appointment in June as she will leaving for [place] at the beginning of June Pt requesting a call from PCP. Regional Sales Consultant found telehealth visit in PCP schedule. Pt booked for telehealth visit with PCP tomorrow 05/03/24 at 2:15 PM. Pt verbalized understanding and denies further questions at this time. Message forwarded to PCP. * Telephone Encounter - Maura Taylor RN - 05/02/2024 12:11 PM EDT RN spoke with fariha Mccoy/PA specialist who states there is not an update on the tracking website so she will send a message to find out more information. TC placed to [facility] pharamcy regardingthe fosamax. Lori states the medication must stay in its original packaging and cannot be added toMEDBOX. Per Malaika Hawkins RN note (see below), pt would like to be prescribed an alternate medicationthat can be added to her MEDBOX. TC placed to pt to inform of pharmacy message, status of walker, and to find out more information regarding the rheumatology referral. No answer, LVM to call office back and ask to speak to the blue team nurses. Message forwarded to PCP to review and advise. * Telephone Encounter - Malaika Cheng RN - 05/02/2024 10:29 AM EDT Called pt. She states that she went to the [facility] ED yesterday due to right leg pain and right knee isswollen. Pt. Was also having throbbing pain in left side of groin. [facility] ED did not find any blood clot in leg and Xray of left hip and pelvis-negative. ED is recommending referral to Director Of Housing And Energy Services according to pt. Pt does not want any pain meds and states I am not going to get an operation on my back and also Steroids and Ibuprofen don't work. Pt. Is requesting a Rollator walker so that she can have a seat to rest in between walking. Pt. States she has asked for one in the past and still has not received one. Pt. Is forgetting to take her once a week FosaMax and is wondering why Pharmacy cannot put the pillin her MEDBOX and if they cannot, she is requesting an alternate medication that can be put into her MEDBOX so that she remembers. Pt. Needs referral to Director Of Housing And Energy Services. Offered pt. Appt. Today but, pt. Only wants to speak to pcp and is requesting appt. With PCP only or call from PCP to discuss updates and needs. Please get back to pt. To let her know if any of these needs can be met Will send request to Clinical coordinators to get [facility] ED report from yesterday into pt. Chart. Multiple needs. * Telephone Encounter - Shubham Booth - 05/02/2024 10:20 AM EDT Patient calling to report ED visit on : Date: 05/01/2024 Hospital: [facility] Seen for: Knee pain , groin pain Symptomatic yes *if yes message should go to Triage Patient advised will forward to team nurse for follow up Symptom: Groin Pain - Female Outcome: Schedule an urgent appointment (within 4 hours) or talk to a nurse or provider soon Reason: Getting worse The caller accepted this outcome. documented in this encounter Plan of Treatment Upcoming Encounters Date Type Department Care Team (Late st Contact Info) Description 05/12/2024 9:00 AM EDT Office Visit [facility] ADULT DENTAL [address] [place] [address] Ayan Calvin DMD [address] [place] [address] 07/17/2024 11:30 AM EDT Office Visit [facility] MEDICINE [address] [place] [address] Name, MD Gregg [address] [place] [address] 09/21/2024 8:00 AM EDT Office Visit [facility] ADULT DENTAL [address] [place] [address] Faye Mi documented as of this encounter Visit Diagnoses Not on filedocumented in this encounter Additional Health Concerns Assessment Noted Time PHQ-9 Depression Total Score: 0 09/01/19 24 10:42 AM EDT documented as of this encounter Care Teams Physical Therapist Assistant Relationship Specialty Start Date End Date Name, MD Gregg [address] [place] [address] PCP - General Family Medicine 04/16/15 documented as of this encounter
--- OUTSIDE RECORDS SUMMARY | 2024-05-11 19:01 | XMS_ITS | Encounter Summary ---
Author Organization [employer] Address [address] [facility] [address] 7t [place] [address] Care Team Providers Care Cardiothoracic Surgeon Name Role Phone Name, Gregg DIAMOND Primary Care Provider [phone] Encounter Details Date Type Department Care Team ([facility] st Contact Info) Description 10/21/2023 Telephone [facility] ADULT DENTAL [address] [place] [address] Ayan Calvin, DMD [address] [place] [address] Social History Tobacco Use Types Packs/Day Years [...] your housing situation today? I have loly facundo 09/01/[address] you li [...] encounter Miscellaneous Notes * Telephone Encounter - Francia Palacio - 10/21/2023 10:22 AM EDT Patient dentures broke documented in this encounter Plan of Treatment Upcoming Encounters Date Type Department Care Team (Late st Contact Info) Description 05/12/2024 9:00 AM EDT Office Visit [facility] ADULT DENTAL [address] [place] [address] Ayan Calvin, RAMIREZ [address] [place] [address] 07/17/2024 11:30 AM EDT Office Visit [facility] MEDICINE [address] [place] [address] Name, MD Gregg [address] [place] [address] 09/21/2024 8:00 AM EDT Office Visit [facility] ADULT DENTAL [address] [place] [address] Faye Mi documented as of this encounter Visit Diagnoses Not on filedocumented in this encounter Additional Health Concerns Assessment Noted Time PHQ-9 Depression Total Score: 0 09/01/19 24 10:42 AM EDT documented as of this encounter Care Teams Cardiothoracic Surgeon Relationship Specialty Start Date End Date Name, MD Gregg [address] [place] [address] PCP - General Family Medicine 04/16/15 documented as of this encounter
--- OUTSIDE RECORDS SUMMARY | 2024-05-11 19:01 | XMS_ITS | Encounter Summary ---
Author Organization [employer] Address [address] [facility] 7t [place] [address] Care Team Providers Care Delivery Director Name Role Phone Name, Gregg DIAMOND Primary Care Provider [phone] Reason for Visit * Reason Comments Med Refill Encounter Details Date Type Department Care Team ([facility] st Contact Info) Description 05/03/2024 Refill [facility] MEDICINE [address] [place], [place] [phone] [facility] [address] [place], [place] [phone] Osteoporosis, unspecified osteoporosis type, unspecified pathological fracture presence Social History Tobacco Use Types Packs/Day Years [...] Description 05/12/2024 9:00 AM EDT Office Visit [facility] ADULT DENTAL [address] [place] [address] Ayan Calvin DMD [address] [place] [address] 07/17/2024 11:30 AM EDT Office Visit [facility] MEDICINE [address] [place] [address] Gregg Gandhi MD [address] [place] [address] 09/21/2024 8:00 AM EDT Office Visit [facility] ADULT DENTAL [address] [place] [address] Faye Mi documented as of this encounter Visit Diagnoses Diagnosis Osteoporosis, unspecified osteoporosis type, unspecified pathological fracture presence documented in this encounter Additional Health Concerns Assessment Noted Time PHQ-9 Depression Total Score: 0 09/01/19 24 10:42 AM EDT documented as of this encounter Care Teams Delivery Director Relationship Specialty Start Date End Date Name, MD Gregg [address] [place] [address] PCP - General Family Medicine 04/16/15 documented as of this encounter
--- OUTSIDE RECORDS SUMMARY | 2024-05-11 19:01 | XMS_ITS | Encounter Summary ---
Author Organization [employer] Address [address] [facility] [address] [place] [address] Care Team Providers Care Lasting Machine Operator Name Role Phone Name, Gregg DIAMOND Primary Care Provider [phone] Reason for Visit * Reason Onset Date Comments Request For Order(s) 07/30/2023 Encounter Details Date Type Department Care Team ([facility] st Contact Info) Description 07/30/2023 Telephone [facility] MEDICINE [address] [place], [place] [phone] Name, MD Gregg [address] [place] [address] Request For Order(s) Social History Tobacco Use Types Packs/Day Years Used Date Smoking Tobacco: Former Cigarettes Passive Smoke Exposure: Past Smokeless Tobacco: Never Alcohol Use Standard Drinks/Week Comments Not Currently 0 (1 standard drink = 0.6 oz pur e alcohol) Depression Answer Date Recorded Patient Health Questionnaire-9 Score 7 03/04/2022 Housing Stability Answer Date Recorded What is your housing situation today? I have loly loredo 11/30/[address] you li ve. Do you have problems with any of the following? None of the above 11/30/2022 Food Insecurity Answer Date Recorded Within the past 12 months, y ou worried that your food would run out before you got money to buy more: Never True 11/30/2022 Within the past 12 months,th e food you bought just didn't last and you didn't have enough money to get more: Never True Transportation Answer Date Recorded In the past 12 months, has l ack of transportation kept you from medical appts, meetings, work or from getting things needed for daily living? No 11/30/2022 Utilities Answer Date Recorded In the past 12 months, has t he electric, gas, oil or water company threatened to shut off services in your home? No 11/30/2022 Depression Answer Date Recorded Patient Health Questionnaire-2 Score 2 03/04/2022 Comments Unknown Sex and Gender Information Value Date Recorded Sex Assigned at Female 12/15/2021 10:22 AM EDT Legal Sex Female 10:22 AM EDT Gender Identity Female 12/15/2021 10:22 AM EDT Sexual Orientation Straight 12/15/2021 10 :22 AM EDT documented as of this encounter Miscellaneous Notes * Telephone Encounter - Justyna Krishnamurthy - 07/30/2023 2:04 PM EDT Tc from pt requesting an MRI on the right kidney/hip area. States provider performing surgery on September 01 requesting for pt to get an MRI done. Please clarify Please contact pt at [phone] (No processing rep needed) documented in this encounter Plan of Treatment Upcoming Encounters Date Type Department Care Team (Late st Contact Info) Description 05/12/2024 9:00 AM EDT Office Visit [facility] ADULT DENTAL [address] [place] [address] Ayan Calvin DMD [address] [place] [address] 07/17/2024 11:30 AM EDT Office Visit [facility] MEDICINE [address] [place] [phone] Name, MD Gregg [address] [place] [address] 09/21/2024 8:00 AM EDT Office Visit [facility] ADULT DENTAL [address] [place] [address] Faye Mi documented as of this encounter Visit Diagnoses Not on filedocumented in this encounter Additional Health Concerns Assessment Noted Time PHQ-9 Depression Total Score: 7 03/04/19 23 9:17 AM EST documented as of this encounter Care Teams Lasting Machine Operator Relationship Specialty Start Date End Date NameGregg MD [address] [place] [address] PCP - General Family Medicine 04/16/15 documented as of this encounter
--- OUTSIDE RECORDS SUMMARY | 2024-05-11 19:01 | XMS_ITS | Encounter Summary ---
Author Organization [facility] Address [address] [facility] 7[address] [place] [address] Care Team Providers Care Narrow Fabrics Weaver Name Role Phone NameGregg MD Primary Care Provider [phone] Reason for Referral * Consultation (Routine) - Closed Specialty Diagnoses / Procedures Referred By Murray flores Referred To Contact Physical Therapy Diagnoses Right knee pain, unspecified chronicity Osteoarthritis of right knee, unspecified osteoarthritis type Gregg Gandhi MD [address] [place] [address] Phone: tel: fax: [facility] Physical Therapy [address] [place], [place] Phone: tel: fax: Referral ID Status Reason Start Date Expiration Date V isits Requested Visits Authorized [id number] Closed Specialty Services Required 05/03/2024 05/03/2025 1 1 * Consultation (Routine) - Authorized Specialty Diagnoses / Procedures Referred By Murray flores Referred To Contact Orthopaedic Surgery Diagnoses Right knee pain, unspecified chronicity Osteoarthritis of right knee, unspecified osteoarthritis type Gregg Gandhi MD [address] [place] [address] Phone: tel: fax: [facility] [address] [place] [address] Phone: tel: fax: Referral ID Status Reason Start Date Expiration Date Visits Requested Visits Authorized [id number] Authorized Specialty Services Required 05/03/2024 05/03/2025 1 1 Reason for Visit * Reason Comments Follow-up Encounter Details Date Type Department Care Team (Latest Contact Info) Description 05/03/2024 2:15 PM EDT Telemedicine [facility] MED[facility] [address] [place] [address] Name, MD Gregg [address] [place] [address] Right knee pain, unspecified chronicity (Primary Dx); Osteoarthritis of right knee, unspecified osteoarthritis type; Obesity (BMI 30-39.9) Social History Tobacco Use Types Packs/Day Years [...] is your housing situation today? I have lolynavin loredo 09/01/[address] you [...] AM EDT documented as of this encounter Progress Notes * Gregg Gandhi MD - 05/03/2024 2:15 PM EDT Subjective Patient ID: Mag Ayala is a 63 y.o. female who presents for Follow-up. I called the patient at her request after recent [facility] ER visit. She presented with knee pain and lateral hip pain. X-rays of the hip were unremarkable. She has DJD of the knee and she follows with [facility]. She has been treated with steroid injections in the knees in the past without symptomatic improvement. She has been recommended knee replacement surgery but she is reluctant. Today she asked me for referral to a different media services specialist. She would like to try Euflexxa injectionsfor the knee pain. She is trying to avoid having a knee replacement surgery. She is also concerned about recent weight gain. She has a personal history of morbid obesity with comorbidities including DJD of the knees. She is a previous history of bariatric surgery. She is on treatment with GLP-1 for weight loss. She was on Wegovy with successful weight loss. We had to switchthe medication to Zepbound due to her insurance requirements. Current dose of Zepbound is 5 mg. Shetells me that she has regained some of the weight she lost after switching to Zepbound. She denies any significant nausea, vomiting, constipation or diarrhea. Review of Systems Constitutional: Negative for fever. Respiratory: Negative for shortness of breath. Cardiovascular: Negative for chest pain. Musculoskeletal: See HPI Objective Physical Exam Vitals reviewed: Televisit audio only. [address] [address] XRay Report Signed Patient: Mag Ayala MR#: [id number] 4 : 1960 Acct:[id number] Age/Sex: 63 / F ADM Date: 12/17/23 Loc: .ED Attending Dr: Ordering Physician: Tea Bourne Date of Service: 12/17/23 Procedure(s): XR knee RT 4V Accession Number(s): [id number] cc: Oksana,Gregg DIAMOND; Tea Bourne EXAMINATION: XR KNEE, RIGHT CLINICAL INFORMATION: Atraumatic pain COMPARISON: None available. TECHNIQUE: Four views of the right knee. FINDINGS: There is moderate patellofemoral and medial compartment joint space narrowing with subchondral sclerosis. No joint effusion. Soft tissues are unremarkable. No acute fractures. XR/XR knee RT 4V IMPRESSION: Moderate degenerative disease of the right knee. Electronically signed by: Hui Ludwig MD 12/17/2023 04:00 PM EDT RP Workstation: [employer] Dictated By: Hui Ludwig MD Signed By: <Electronically signed by Hui Ludwig MD in OV> 12/17/[address] [address] XRay Report Signed Patient: Mag Ayala MR#: [id number] 4 : 1960 Acct:[id number] Age/Sex: 63 / F ADM Date: 05/01/24 Loc: .ED Attending Dr: Ordering Physician: Stephen Sexton MD Date of Service: 05/01/24 Procedure(s): XR hip LT w PEL1V Accession Number(s): [id number] cc: Stephen Sexton MD; Name,Gregg DIAMOND CLINICAL HISTORY: left hip pain AP pelvis and two views of the left hip. Comparison: None Findings: The bones are intact. No fracture deformity. Degenerative changes of the lower lumbar spine. The soft tissues are unremarkable. IMPRESSION: No acute findings. This document has been electronically signed by: Harsha Guzmán MD on 05/02/2024 00:09:32 Dictated By: Harsha Guzmán MD Signed By: <Electronically signed by Harsha Guzmán MD in OV> 05/02/24 0011 Assessment/Plan Diagnoses and all orders for this visit: Right knee pain, unspecified chronicity Comments: I will refer to [facility] for second opinion. I also recommended referral to physical therapy. I recommended acetaminophen as needed for knee pain. I recommended to continue weight loss treatment. I would like to increase her to Zepbound when she is due for refill. She is recommended to continue using her walker at home. Orders: - Referral to Orthopaedic Surgery; Future - Referral to Physical Therapy; Future Osteoarthritis of right knee, unspecified osteoarthritis type - Referral to Orthopaedic Surgery; Future - Referral to Physical Therapy; Future Obesity (BMI 30-39.9) documented in this encounter Plan of Treatment Upcoming Encounters Date Type Department Care Team (Late st Contact Info) Description 05/12/2024 9:00 AM EDT Office Visit [facility] D[facility] [address] [place] [address] Ayan Calvin DMD [address] [place] [address] 07/17/2024 11:30 AM EDT Office Visit [facility] [address] [place] [address] Oksana, MD Gregg [address] [place] [address] 09/21/2024 8:00 AM EDT Office Visit [facility] [address] [place] [address] Faye Mi Scheduled Referrals Name Type Priority Associated Diagnoses Orde r Schedule Referral to Orthopaedic Surgery Outpatient Referral Routine Right knee pain, unspecified chronicity Osteoarthritis of right knee, unspecified osteoarthritis type Expected: 05/03/2024 (Approximate), Expires: 05/03/2025 Referral to Physical Therapy Outpatient Referral Routine Right knee pain, unspecified chronicity Osteoarthritis of right knee, unspecified osteoarthritis type Expected: 05/03/2024 (Approximate), Expires: 05/03/2025 documented as of this encounter Visit Diagnoses Diagnosis Right knee pain, unspecified chronicity- Primary Osteoarthritis of right knee, unspecified osteoarthritis type Obesity (BMI 30-39.9) documented in this encounter Additional Health Concerns Assessment Noted Time PHQ-9 Depression Total Score: 0 09/01/19 24 10:42 AM EDT documented as of this encounter Care Teams Narrow Fabrics Weaver Relationship Specialty Start Date End Date Name, MD Gregg [address] [place] [address] PCP - General Family Medicine 04/16/15 documented as of this encounter
--- OUTSIDE RECORDS SUMMARY | 2024-05-11 19:01 | XMS_ITS | Encounter Summary ---
Author Organization [employer] Address [address] [facility] 7t [place] [address] Care Team Providers Care X Ray Equipment Mechanic Name Role Phone Name, Gregg DIAMOND Primary Care Provider [phone] Reason for Visit * Reason Onset Date Comments Nurse Triage 05/04/2024 Encounter Details Date Type Department Care Team ([facility] st Contact Info) Description 05/04/2024 Telephone [facility] [address] [place] [address] Name, MD Gregg [address] [place] [address] Nurse Triage Social History Tobacco Use Types [...] encounter Miscellaneous Notes * Telephone Encounter - Funmi Mcgee RN - 05/04/2024 1:02 PM EDT Reviewed Endocrinology note form visit today, no mention of below information. Do see mention of hemorrhoids. No post hole digger needed as this director underwriter sales speaks Irish. Call returned to Mag Ayala to triage below. Reports last night had BM yesterday. Per pt uses sanitary wipes to clean. Per pt felt a lump on anus. Per pt having some pain and burning sensation. Per pt took a picture and saw a purplish in color lump. Per pt purchased OTC preparation H cream. Ptdid looked up a video on how to apply cream, was advised to not apply until evaluated. Per pt only applied a small amount of ointment and is applying ice. PT denies any constipation, straining or very firm stools. Per pt called [facility] to have them come out to the home today. Per pt had a colonoscopy done and had polyps. Pt also has hx of internal hemorrhoids. Pt then mentions that also had darkerurine yesterday. No pain or odor. Pt advised to mention to [facility] medic to perform UA. Pt requesting referral to Brushing Machine Operator per recommendation from V Belt Finisher. Pt advised will forward note to Provider for review and also to nurses to obtain [facility] notes once patient seen today. Pt advised toreturn call to office if PCP follow up recommended by [facility]. Pt agrees. Protocol Used: Rectal Symptoms (Adult) Protocol-Based Disposition: Go to Office or Video Visit Now Positive Triage Question: * Acute onset rectal pain and constipation (straining with rectal pressure or fullness), which is not relieved by Sitz bath or suppository * All higher-acuity triage questions were negative Care Advice Discussed: * Reassurance and Education - Mild Rectal Pain or Irritation * Telephone Encounter - Marla Magallon - 05/04/2024 12:44 PM EDT Symptom: Rectal Symptoms - Not Bleeding Outcome: Schedule an appointment to be seen within 3 days Reason: Caller denied all higher acuity questions The caller accepted this outcome. [phone] (citizen of [place] pt states knows Frisian but there are some words she can't say or understand. Tc from pt stating visited the car groomer today, and he told pt should ask her PCP for a referral for a prosthetic because pt has several purple veins in the anus. Pt states this hasn't happenedto her before. documented in this encounter Plan of Treatment Upcoming Encounters Date Type Department Care Team (Late st Contact Info) Description 05/12/2024 9:00 AM EDT Office Visit [facility] ADULT D[facility] [address] [place] [address] Ayan Calvin, RAMIREZ [address] [place] [address] 07/17/2024 11:30 AM EDT Office Visit [facility] [address] [place] [address] Name, MD Gregg [address] [place] [address] 09/21/2024 8:00 AM EDT Office Visit [facility] [address] [place] [address] Faye Mi documented as of this encounter Visit Diagnoses Not on filedocumented in this encounter Additional Health Concerns Assessment Noted Time PHQ-9 Depression Total Score: 0 09/01/19 24 10:42 AM EDT documented as of this encounter Care Teams X Ray Equipment Mechanic Relationship Specialty Start Date End Date Name, MD Gregg [address] [place] [address] PCP - General Family Medicine 04/16/15 documented as of this encounter
--- OUTSIDE RECORDS SUMMARY | 2024-05-11 19:01 | XMS_ITS | Encounter Summary ---
Author Organization [employer] Address [address] [place] [address] Care Team Providers Care Painter Chassis Name Role Phone Name, Gregg DIAMOND Primary Care Provider Encounter Details Date Type Department Care Team (Late st Contact Info) Description 05/01/2024 Orders Only [facility] External Provider, [facility] Social History Tobacco Use Types Packs/Day Years [...] Description 05/12/2024 9:00 AM EDT Office Visit [facility] AD[facility] D[facility] [address] [place] [address] Ayan Calvin DMD [address] [place] [address] 07/17/2024 11:30 AM EDT Office Visit [facility] MED[facility] [address] [place] [phone] Name, MD Gregg [address] [place] [address] 09/21/2024 8:00 AM EDT Office Visit [facility] [address] [place] [address] Faye Mi documented as of this encounter Procedures Procedure Name Priority Date/Time Associated Diagnosis Comments CT ABDOMEN PELVIS WO CONTRAST Routine 05/04/2024 10:09 PM EDT US VENOUS DUPLEX LE RT Routine 05/02/2024 12:41 AM EDT XR HIP LEFT WITH PELVIS 1 VIEW Routine 05/02/2024 12:09 AM EDT documented in this encounter Results * CT Abdomen Pelvis w/o Contrast (05/04/2024 10:09 PM EDT) Anatomical Region Laterality Modality Body, Pelvis, Abdomen Computed T omography 05/04/2024 10:0 9 PM EDT Narrative 05/04/2024 10:11 PM EDT ? [facility] ?[address] ?[place] [address] ? CT Scan Report ? Signed ? Patient: Ayala,Mag ?MR#: [id number] ?? 4 ? : 1960 ?Acct:[id number] ? Age/Sex: 63 / F ?ADM Date: 05/04/24 ? Loc: HO.ED ? Attending Dr: ? Ordering Physician: Mitch Roberts MD ?? Date of Service: 05/04/24 ?? Procedure(s): CT abdomen pelvis wo IV con ?? Accession Number(s): [id number] ? cc: Oksana,Gregg DIAMOND; Mitch Roberts MD ? Report Number: ?? [id number]: Total DLP = ??608.00 mGy-cm ? CLINICAL HISTORY: llq pain ?diverticulitis ? CT abdomen and pelvis without contrast ? Comparison: CT of the abdomen and pelvis from 08/24/2023 ? Findings: ?? No consolidation of the imaged lung bases. ?? Solid abdominal organs appear unchanged by noncontrast imaging. The ?? gallbladder is surgically absent with metal artifacts. Postprocedural ?? changes from gastric sleeve. No small bowel obstruction. Severe stool ?? burden is present, including the cecum. Imaged appendix is within normal ?? limits. Multiple diverticula are redemonstrated. Wall thickening of the ?? sigmoid colon adjacent fluid is concerning for mild diverticulitis. No ?? free intraperitoneal air. No drainable abscess by CT. ?? Mild wall thickening of the urinary bladder is nonspecific. Mild fluid in ?? the pelvis likely secondary to diverticulitis. The uterus is surgically ?? absent. No adnexal soft tissue mass. Mild to moderate osteoarthritis both ?? hips. Degenerative changes include bmsvmgmf-cy-ykxqwx facet arthropathy, ?? particularly in the lower lumbar spine. Endplate sclerosis is again ?? multifocal. ?? Mild subcutaneous edema of the subcutaneous soft tissues, dependently. ? IMPRESSION: ?? Mild diverticulitis, including sigmoid colon. No perforation or abscess ?? formation at this time. ? This document has been electronically signed by: Destin Gibson MD on ?? 05/04/2024 22:09:02 ? Dictated By: ?Destin Gibson MD ? Signed By: ?<Electronically signed by Destin Gibson MD in OV> ? 05/04/242209 ? DD/ 08 ? TD/TT: 05/04/242208 ? Line Assembler: ? Procedure Note Donotuseinterpreter, Image - 05/04/[address] [address] [address] Scan Report Signed Patient: Eulalia Ayala#: [id number] 4 : 9Acct:[id number] Age/Sex: 63 / FADM Date: 05/04/24 Loc: HO.ED Attending Dr: Ordering Physician: Mitch Roberts MD Date of Service: 05/04/24 Procedure(s): CT abdomen pelvis wo IV con Accession Number(s): [id number] cc: Oksana,Gregg DIAMOND; Mitch Roberts MD Report Number: [id number]: Total DLP = 608.00 mGy-cm CLINICAL HISTORY: llq pain ?diverticulitis CT abdomen and pelvis without contrast Comparison: CT of the abdomen and pelvis from 08/24/2023 Findings: No consolidation of the imaged lung bases. Solid abdominal organs appear unchanged by noncontrast imaging. The gallbladder is surgically absent with metal artifacts. Postprocedural changes from gastric sleeve. No small bowel obstruction. Severe stool burden is present, including the cecum. Imaged appendix is within normal limits. Multiple diverticula are redemonstrated. Wall thickening of the sigmoid colon adjacent fluid is concerning for mild diverticulitis. No free intraperitoneal air. No drainable abscess by CT. Mild wall thickening of the urinary bladder is nonspecific. Mild fluid in the pelvis likely secondary to diverticulitis. The uterus is surgically absent. No adnexal soft tissue mass. Mild to moderate osteoarthritis both hips. Degenerative changes include moywaapq-uu-bcafmo facet arthropathy, particularly in the lower lumbar spine. Endplate sclerosis is again multifocal. Mild subcutaneous edema of the subcutaneous soft tissues, dependently. IMPRESSION: Mild diverticulitis, including sigmoid colon. No perforation or abscess formation at this time. This document has been electronically signed by: Destin Gibson MD on 05/04/2024 22:09:02 Dictated By: Destin Gibson MD Signed By: <Electronically signed by Destin Gibson MD in OV> 05/04/242209 DD/ 08 TD/TT: 05/04/242208 Line Assembler: [facility] External Provider IMG CT PROCEDURES Final Result * US VENOUS DUPLEX LE RT (05/02/2024 12:41 AM EDT) Anatomical Region Laterality Modality Abdomen Ultrasound 05/02/2024 12:4 1 AM EDT Narrative 05/02/2024 12:44 AM EDT ? [facility] ?[address] ?[place] [address] ? Ultrasound Report ? Signed ? Patient: Ayala,Mag ?MR#: [id number] ?? 4 ? : 1960 ?Acct:[id number] ? Age/Sex: 63 / F ?ADM Date: 05/01/24 ? Loc: HO.ED ? Attending Dr: ? Ordering Physician: Stephen Sexton MD ?? Date of Service: 05/01/24 ?? Procedure(s): US venous duplex LE RT ?? Accession Number(s): [id number] ? cc: Stephen Sexton MD; Name,Gregg DIAMOND ? CLINICAL HISTORY: atraumatic right leg knee pain ? Venous duplex ultrasound right lower extremity ? Comparison: None ? Findings: ?? The visualized deep veins are fully compressible with normal Doppler color ?? flow and spectral tracings. ?? No popliteal cyst. ? IMPRESSION: ?? 1. Negative for right lower extremity deep vein thrombosis. ? This document has been electronically signed by: Harsha Guzmán MD on ?? 05/02/2024 00:41:35 ? Dictated By: ?Harsha Guzmán MD ? Signed By: ?<Electronically signed by Harsha Guzmán MD in OV> ? 05/02/24 004 ? DD/ 004 ? TD/TT: 05/02/24 004 ? Line Assembler: ? Procedure Note Laron, Starla - 05/02/2024 [facility] [address] [place] [address] Ultrasound Report Signed Patient: Deidre AyalaR#: [id number] 4 : 1960cct:[id number] Age/Sex: 63 / FADM Date: 05/01/24 Loc: HO.ED Attending Dr: Ordering Physician: Stephen Sexton MD Date of Service: 05/01/24 Procedure(s): US venous duplex LE RT Accession Number(s): [id number] cc: Stephen Sexton MD; Name,Gregg DIAMOND CLINICAL HISTORY: atraumatic right leg knee pain Venous duplex ultrasound right lower extremity Comparison: None Findings: The visualized deep veins are fully compressible with normal Doppler color flow and spectral tracings. No popliteal cyst. IMPRESSION: 1. Negative for right lower extremity deep vein thrombosis. This document has been electronically signed by: Harsha Gzumán MD on 05/02/2024 00:41:35 Dictated By: Harsha Guzmán MD Signed By: <Electronically signed by Harsha Guzmán MD in OV> 05/02/24 0042 DD/ 0041 TD/TT: 05/02/24 0041 Line Assembler: us [facility] External Provider IMG US PROCEDURES Edited Result - Final * XR Hip left with Pelvis 1 view (05/02/2024 12:09 AM EDT) Anatomical Region Laterality Modality Lower Extremities, Hip Bilateral Radiograp hic Imaging 05/02/2024 12:0 9 AM EDT Narrative 05/02/2024 12:12 AM EDT ? [facility] ?[address] ?[place] [address] ?XRay Report ? Signed ? Patient: Ayala,Mag ?MR#: [id number] ?? 4 ? : 1960 ?Acct:[id number] ? Age/Sex: 63 / F ?ADM Date: 03/17/25 ? Loc: HO.ED ? Attending Dr: ? Ordering Physician: Stephen Sexton MD ?? Date of Service: 05/01/24 ?? Procedure(s): XR hip LT w PEL1V ?? Accession Number(s): [id number] ? cc: Stephen Sexton MD; Name,Gregg DIAMOND ? CLINICAL HISTORY: left hip pain ? AP pelvis and two views of the left hip. ? Comparison: None ? Findings: ?? The bones are intact. No fracture deformity. ?? Degenerative changes of the lower lumbar spine. ?? The soft tissues are unremarkable. ? IMPRESSION: ?? No acute findings. ? This document has been electronically signed by: Harsha Guzmán MD on ?? 05/02/2024 00:09:32 ? Dictated By: ?Harsha Guzmán MD ? Signed By: ?<Electronically signed by Harsha Guzmán MD in OV> ? 05/02/24 0011 ? DD/ 0009 ? TD/TT: 05/02/24 0009 ? Line Assembler: ? Procedure Note Laron, Image - 05/02/2024 [place] [address] XRay Report Signed Patient: Riccardo AyalanMR#: [id number] 4 : 9Acct:[id number] Age/Sex: 63 / FADM Date: 05/01/24 Loc: HO.ED Attending Dr: Ordering Physician: Stephen Sexton MD Date of Service: 05/01/24 Procedure(s): XR hip LT w PEL1V Accession Number(s): [id number] cc: Stephen Sexton MD; Name,Gregg DIAMOND CLINICAL [...] Harsha Guzmán MD in OV> 05/02/24 0011 DD/ TD/TT: 05/02/248 Line Assembler: [facility] External Provider IMG XR PROCEDURES Edited Result - Final documented in this encounter Visit Diagnoses Not on filedocumented in this encounter Additional Health Concerns Assessment Noted Time PHQ-9 Depression Total Score: 0 09/01/19 24 10:42 AM EDT documented as of this encounter Care Teams Painter Chassis Relationship Specialty Start Date End Date Name, MD Gregg [address] [place] [address] PCP - General Family Medicine 04/16/15 documented as of this encounter
--- OUTSIDE RECORDS SUMMARY | 2024-05-11 19:01 | XMS_ITS | Encounter Summary ---
Author Organization [employer] Address [address] [facility] [address]t [place] [address] Care Team Providers Care Data Consultant Name Role Phone Name, Gregg DIAMOND Primary Care Provider [phone] Reason for Visit * Reason Onset Date Comments Prior Authorization 05/01/2024 Lidocaine Encounter Details Date Type Department Care Team ([facility] st Contact Info) Description 05/01/2024 Telephone [facility] [address] [place] [address] Name, MD Gregg [address] [place] [address] Prior Authorization (Lidocaine ) Social History Tobacco Use Types Packs/Day Years [...] encounter Miscellaneous Notes * Telephone Encounter - Valentina Beltran - 05/05/2024 11:56 AM EDT PA Denial for lidocaine patches received and scanned into media. * Telephone Encounter - Valentina Beltran - 05/01/2024 12:26 PM EDT PA request received for Lidocaine 5% patches. PA initiated on Covermymeds. Approval/denial pending. (Pineda: [id number]) documented in this encounter Plan of Treatment Upcoming Encounters Date Type Department Care Team (Late st Contact Info) Description 05/12/2024 9:00 AM EDT Office Visit [facility]ULT [facility] [address] [place] [address] Ayan Calvin, DMD [address] [place] [address] 07/17/2024 11:30 AM EDT Office Visit [facility] [address] [place] [address] Name, MD Gregg [address] [place] [address] 09/21/2024 8:00 AM EDT Office Visit [facility] [address] [place] [address] Faye Mi documented as of this encounter Visit Diagnoses Not on filedocumented in this encounter Additional Health Concerns Assessment Noted Time PHQ-9 Depression Total Score: 0 09/01/19 10:42 AM EDT documented as of this encounter Care Teams Data Consultant Relationship Specialty Start Date End Date Name, [place] [address] PCP - General Family Medicine 04/16/15 documented as of this encounter
--- OUTSIDE RECORDS SUMMARY | 2024-05-11 19:01 | XMS_ITS | Encounter Summary ---
Author Organization [email or web address] Address [address] [facility] 7t [place] [address] Care Team Providers Care Pathology Laboratory Aide Name Role Phone Name, Gregg DIAMOND Primary Care Provider [phone] Reason for Visit * Reason Onset Date Comments Med Refill 05/08/2024 Encounter Details Date Type Department Care Team (Late st Contact Info) Description 05/08/2024 Refill [facility] [address] [place], [place] [phone] Name, MD Gregg 230 [place] [address] Class 1 obesity (Primary Dx) Social History Tobacco Use Types Packs/Day Years [...] encounter Miscellaneous Notes * Telephone Encounter - Ling England RN - 05/08/2024 4:07 PM EDT Incoming message from Lori at [facility] pharmacy. States pt forgot to ask pcp for increased dose Zepbound at appointment today. Lori confirms that pt is due for refill. Increased dose pended to pcp for review. documented in this encounter Plan of Treatment Upcoming Encounters Date Type Department Care Team (Late st Contact Info) Description 05/12/2024 9:00 AM EDT Office Visit [facility] ADULT DENTAL [address] [place] [address] Ayan Calvin, RAMIREZ [address] [place] [address] 07/17/2024 11:30 AM EDT Office Visit [facility] [address] [place] [address] Name, MD Gregg [address] [place] [address] 09/21/2024 8:00 AM EDT Office Visit [facility] ADULT [facility] [address] [place] [address] Faye Mi documented as of this encounter Visit Diagnoses Diagnosis Class 1 obesity- Primary documented in this encounter Additional Health Concerns Assessment Noted Time PHQ-9 Depression Total Score: 0 09/01/19 10:42 AM EDT documented as of this encounter Care Teams Pathology Laboratory Aide Relationship Specialty Start Date End Date Name, MD Gregg [address] [place] [address] PCP - General Family Medicine 04/16/15 documented as of this encounter
--- OUTSIDE RECORDS SUMMARY | 2024-05-11 19:01 | XMS_ITS | Encounter Summary ---
Author Organization [employer] Address [address] [facility] [address] 7t [place] [address] Care Team Providers Care Envelope Stamping Machine Operator Name Role Phone Name, Gregg DIAMOND Primary Care Provider Reason for Visit * Reason Comments Med Refill Encounter Details Date Type Department Care Team ([facility] st Contact Info) Description 02/14/2024 Refill [facility] MEDICINE [address] [place], [place] [phone] Name, MD Gregg 230 [place] [address] Social History Tobacco Use Types Packs/Day Years [...] Description 05/12/2024 9:00 AM EDT Office Visit [facility] ADULT DENTAL [address] [place] [address] Ayan Calvin, RAMIREZ [address] [place] [address] 07/17/2024 11:30 AM EDT Office Visit [facility] MEDICINE [address] [place] [address] Name, MD Gregg [address] [place] [address] 09/21/2024 8:00 AM EDT Office Visit [facility] ADULT DENTAL [address] [place] [address] Faye Mi documented as of this encounter Visit Diagnoses Not on filedocumented in this encounter Additional Health Concerns Assessment Noted Time PHQ-9 Depression Total Score: 0 09/01/19 24 10:42 AM EDT documented as of this encounter Care Teams Envelope Stamping Machine Operator Relationship Specialty Start Date End Date Name, MD Gregg [address] [place] [address] PCP - General Family Medicine 04/16/15 documented as of this encounter
--- OUTSIDE RECORDS SUMMARY | 2024-05-11 19:01 | XMS_ITS | Encounter Summary ---
Author Organization [employer] Address [address] [facility] [address] 7t [place] [address] Care Team Providers Care Recycling Program Manager Name Role Phone Name, Gregg DIAMOND Primary Care Provider Encounter Details Date Type Department Care Team (Latest Contact Info) Description 05/08/2024 Travel Social History Tobacco Use Types Packs/Day [...] Description 05/12/2024 9:00 AM EDT Office Visit [facility] ADULT DENTAL [address] [place] [address] Ayan Calvin, RAMIREZ [address] [place] [address] 07/17/2024 11:30 AM EDT Office Visit [facility] MEDICINE [address] [place] [address] Name, MD Gregg [address] [place] [address] 09/21/2024 8:00 AM EDT Office Visit [facility] ADULT DENTAL [address] [place] [address] Faye Mi documented as of this encounter Visit Diagnoses Not on filedocumented in this encounter Additional Health Concerns Assessment Noted Time PHQ-9 Depression Total Score: 0 09/01/19 24 10:42 AM EDT documented as of this encounter Care Teams Recycling Program Manager Relationship Specialty Start Date End Date Name, MD Gregg [address] [place] [address] PCP - General Family Medicine 04/16/15 documented as of this encounter
--- OUTSIDE RECORDS SUMMARY | 2024-05-11 19:01 | XMS_ITS | Encounter Summary ---
Author Organization [employer] Address [address] [facility] [address] 7t [place] [address] Care Team Providers Care Tree Doctor Name Role Phone Name, Gregg DIAMOND Primary Care Provider [phone] Reason for Visit * Reason Onset Date Comments Appointment Request 04/19/2024 Encounter Details Date Type Department Care Team ([facility] st Contact Info) Description 04/19/2024 Telephone [facility] MEDICINE [address] [place] [address] Sweta Giraldo [place] Appointment Request Social History Tobacco Use Types Packs/Day Years [...] encounter Miscellaneous Notes * Telephone Encounter - Sweta Giraldo MA - 04/19/2024 1:11 PM EST T/c placed to pt returning call back, pt requesting reschedule appt f/u obesity with PCP. Pt stateswill be out of [place] from June 18- as she has an appointment with the oncologist on the and with the neurosurgeon on June 27. Unable to reach pt lvm I could cancel appt and next appt will be late July or September. documented in this encounter Plan of Treatment Upcoming Encounters Date Type Department Care Team (Late st Contact Info) Description 05/12/2024 9:00 AM EDT Office Visit [facility] ADULT DENTAL [address] [place] [address] Ayan Calvin DMD [address] [place] [address] 07/17/2024 11:30 AM EDT Office Visit [facility] MEDICINE [address] [place] [address] Name, MD Gregg [address] [place] [address] 09/21/2024 8:00 AM EDT Office Visit [facility] ADULT DENTAL [address] [place] [address] Faye Mi documented as of this encounter Visit Diagnoses Not on filedocumented in this encounter Additional Health Concerns Assessment Noted Time PHQ-9 Depression Total Score: 0 09/01/19 24 10:42 AM EDT documented as of this encounter Care Teams Tree Doctor Relationship Specialty Start Date End Date Name, MD Gregg [address] [facility] [place] [address] PCP - General Family Medicine 04/16/15 documented as of this encounter
--- OUTSIDE RECORDS SUMMARY | 2024-05-11 19:01 | XMS_ITS | Encounter Summary ---
Author Organization [employer] Address [address] [facility] [address] 7t [place] [address] Care Team Providers Care Photo Lab Manager Name Role Phone Name, Gregg DIAMOND Primary Care Provider [phone] Encounter Details Date Type Department Care Team (Latest Contact Info) Description 04/19/2024 Travel Social History Tobacco Use Types Packs/Day [...] 05/12/2024 9:00 AM EDT Office Visit [facility] ADULT DENTAL [address] [place] [address] Ayan Calvin, RAMIREZ [address] [place] [address] 07/17/2024 11:30 AM EDT Office Visit [facility] MEDICINE [address] [place] [address] Name, MD Gregg [address] [place] [address] 09/21/2024 8:00 AM EDT Office Visit [facility] ADULT DENTAL [address] [place] [address] Faye Mi documented as of this encounter Visit Diagnoses Not on filedocumented in this encounter Additional Health Concerns Assessment Noted Time PHQ-9 Depression Total Score: 0 09/01/19 24 10:42 AM EDT documented as of this encounter Care Teams Photo Lab Manager Relationship Specialty Start Date End Date Name, MD Gregg [address] [place] [address] PCP - General Family Medicine 04/16/15 documented as of this encounter
--- OUTSIDE RECORDS SUMMARY | 2024-05-11 19:01 | XMS_ITS | Encounter Summary ---
Author Organization [employer] Address [address] [facility] 7t [place] [address] Care Team Providers Care Fiberglass Dowel Drawing Operator Name Role Phone Name, Gregg DIAMOND Primary Care Provider [phone] Reason for Visit * Reason Onset Date Comments Appointment Request 04/18/2024 Encounter Details Date Type Department Care Team ([facility] st Contact Info) Description 04/18/2024 Telephone [facility] MEDICINE [address] [place] [address] Name, MD Gregg [address] [place] [address] Appointment Request Social History Tobacco Use Types [...] encounter Miscellaneous Notes * Telephone Encounter - Marla Magallon - 04/18/2024 12:58 PM EST Tc from pt requesting reschedule appt f/u obesity with PCP. Pt states will be out of [place] from June 18- as she has an appointment with the oncologist on the and with the neurosurgeon on June 27. documented in this encounter Plan of Treatment Upcoming Encounters Date Type Department Care Team (Late st Contact Info) Description 05/12/2024 9:00 AM EDT Office Visit [facility] ADULT DENTAL [address] [place] [address] Ayan Calvin, RAMIREZ [address] [place] [address] 07/17/2024 11:30 AM EDT Office Visit [facility] MEDICINE [address] [place] [address] Name, MD Gregg [address] [place] [address] 09/21/2024 8:00 AM EDT Office Visit [facility] ADULT DENTAL [address] [place] [address] Faye Mi documented as of this encounter Visit Diagnoses Not on filedocumented in this encounter Additional Health Concerns Assessment Noted Time PHQ-9 Depression Total Score: 0 09/01/19 24 10:42 AM EDT documented as of this encounter Care Teams Fiberglass Dowel Drawing Operator Relationship Specialty Start Date End Date Name, MD Gregg [address] [place] [address] PCP - General Family Medicine 04/16/15 documented as of this encounter
--- OUTSIDE RECORDS SUMMARY | 2024-05-11 19:01 | XMS_ITS | Encounter Summary ---
Author Organization [employer] Address [address] [facility] [address] 7t [place] [address] Care Team Providers Care Title I Paraprofessional Name Role Phone Name, Gregg DIAMOND Primary Care Provider [phone] Reason for Visit * Reason Onset Date Comments PT1 07/27/2023 Encounter Details Date Type Department Care Team ([facility] st Contact Info) Description 07/27/2023 Telephone [facility] MEDICINE [address] [place] [address] Name, MD Gregg [address] [place] [address] PT1 Social History Tobacco Use Types Packs/Day Years [...] encounter Miscellaneous Notes * Telephone Encounter - Sheridan Stringer - 07/27/2023 12:11 PM EDT Patient calling requesting PT1 Home Address verified: Y/N: Yes Provider name or facility name: Dr. Carson Smith MD Facility Address: [address] [place] [address] [address], [facility], [address] Escort needed: Y/N: No Do you have a wheelchair: Y/N: No If yes- Manual or electric: Visits: 2-3 Next upcoming appt 08/03/23 documented in this encounter Plan of Treatment Upcoming Encounters Date Type Department Care Team (Late st Contact Info) Description 05/12/2024 9:00 AM EDT Office Visit [facility] ADULT DENTAL [address] [place] [address] Ayan Calvin DMD [address] [place] [address] 07/17/2024 11:30 AM EDT Office Visit [facility] MEDICINE [address] [place] [address] Name, MD Gregg [address] [place], [place] [phone] 09/21/2024 8:00 AM EDT Office Visit [facility] ADULT DENTAL [address] [place] [address] Faye Mi documented as of this encounter Visit Diagnoses Not on filedocumented in this encounter Additional Health Concerns Assessment Noted Time PHQ-9 Depression Total Score: 7 03/04/19 23 9:17 AM EST documented as of this encounter Care Teams Title I Paraprofessional Relationship Specialty Start Date End Date Name, MD Gregg [address] [place] [address] PCP - General Family Medicine 04/16/15 documented as of this encounter
--- OUTSIDE RECORDS SUMMARY | 2024-05-11 19:01 | XMS_ITS | Encounter Summary ---
Author Organization [employer] Address [address] [facility] [address] 7t [place] [address] Care Team Providers Care Roll Table Operator Name Role Phone Name, Gregg DIAMOND Primary Care Provider [phone] Reason for Visit * Reason Comments Med Refill Encounter Details Date Type Department Care Team ([facility] st Contact Info) Description 08/03/2023 Refill [facility] MEDICINE [address] [place], [place] [phone] Name, MD Gregg [address] [place] [address] Social History Tobacco Use Types Packs/Day Years [...] the past 12 months, has t he [employer], oil or water company threatened to shut [...] Office Visit [facility] ADULT DENTAL [address] [place] [address] Ayan Calvin DMD [address] [place] [address] 07/17/2024 11:30 AM EDT Office Visit [facility] MEDICINE [address] [place] [address] Name, MD Gregg [address] [place] [address] 09/21/2024 8:00 AM EDT Office Visit [facility] ADULT DENTAL [address] [place] [address] Faye Mi documented as of this encounter Visit Diagnoses Not on filedocumented in this encounter Additional Health Concerns Assessment Noted Time PHQ-9 Depression Total Score: 7 03/04/19 23 9:17 AM EST documented as of this encounter Care Teams Roll Table Operator Relationship Specialty Start Date End Date NameGregg MD [address] [place] [address] PCP - General Family Medicine 04/16/15 documented as of this encounter
--- OUTSIDE RECORDS SUMMARY | 2024-05-11 19:01 | XMS_ITS | Encounter Summary ---
Author Organization [employer] Address [address] 7[address] [place] [address] Care Team Providers Care Dryer And Washer Mechanic Name Role Phone Name, Gregg DIAMOND Primary Care Provider [phone] Encounter Details Date Type Department Care Team (Late st Contact Info) Description 05/09/2024 Telephone [facility] [address] [place] [address] Natalie Nathan, RN Social History Tobacco Use Types Packs/Day Years [...] encounter Miscellaneous Notes * Telephone Encounter - Natalie Nathan RN - 05/10/2024 8:52 AM EDT Tc to [facility] pharmacy to to let them know per PCP I sent the 7.5 mg dose to the pharmacy . Milly reports they received the new script, they will cancel the 10 mg dose for now. No further questions orconcerns at this time. * Addendum Note - Gregg Coates MD - 05/10/2024 7:56 AM EDTAddended by: GREGG COATES on: 05/10/2024 07:56 AM Modules accepted: Orders * Telephone Encounter - Gregg Coates MD - 05/10/2024 7:54 AM EDT I sent the 7.5 mg dose to the pharmacy * Telephone Encounter - Natalie Nathan RN - 05/09/2024 8:51 AM EDT Incoming call from Milly at pharmacy reports pt called last night and this morning requesting for their Tirzepatide dose to be decreased to 7.5 mg. Pt informed pharmacy they have been looking stuff up and does not feel comfortable to take such a high dose yet and would like to be started on 7.5 mg. Pharmacy requesting us to discuss with PCP to find out what they would like to do for the pt. Pharmacy advised we'll send a message to the provider and call them back once we find out what they decide to do. Message forwarded to PCP for review. documented in this encounter Plan of Treatment Upcoming Encounters Date Type Department Care Team (Late st Contact Info) Description 05/12/2024 9:00 AM EDT Office Visit [facility] ADULT DENTAL [address] [place] [address] Ayan Calvin DMD [address] [place] [address] 07/17/2024 11:30 AM EDT Office Visit [facility] MED[facility] [address] [place] [address] Name, MD Gregg [address] [place] [address] 09/21/2024 8:00 AM EDT Office Visit [facility] ADULT DENTAL [address] [place] [address] Faye Mi documented as of this encounter Visit Diagnoses Not on filedocumented in this encounter Additional Health Concerns Assessment Noted Time PHQ-9 Depression Total Score: 0 09/01/19 24 10:42 AM EDT documented as of this encounter Care Teams Dryer And Washer Mechanic Relationship Specialty Start Date End Date Name, MD Gregg [address] [place] [address] PCP - General Family Medicine 04/16/15 documented as of this encounter
--- OUTSIDE RECORDS SUMMARY | 2024-05-11 19:01 | XMS_ITS | Encounter Summary ---
Author Organization [employer] Address [address] [facility] [address] [facility] [address] 7t [place] [address] Care Team Providers Care Arc Cutter Name Role Phone Name, Gregg DIAMOND Primary Care Provider [phone] Reason for Visit * Reason Onset Date Comments clarification of tx 08/09/2023 Encounter Details Date Type Department Care Team (Late st Contact Info) Description 08/09/2023 Telephone [facility] ADULT DENTAL [address] [place] [address] Ayan Calvin, DMD [address] [place] [address] clarification of tx Social History Tobacco Use Types Packs/Day Years [...] encounter Miscellaneous Notes * Telephone Encounter - Nataliia Jalloh - 08/09/2023 2:07 PM EDT Message for Mark Ayala 1960 Patient is asking for you to call her. She went to [facility] for [facility] today but is looking to speak with you for update on tx. I tried to explain as much as I could but there are noupdated notes as of yet and she wanted to speak with you directly DR documented in this encounter Plan of Treatment Upcoming Encounters Date Type Department Care Team (Late st Contact Info) Description 05/12/2024 9:00 AM EDT Office Visit [facility] ADULT DENTAL [address] [place] [address] Ayan Calvin, RAMIREZ [address] [place] [address] 07/17/2024 11:30 AM EDT Office Visit [facility] MEDICINE [address] [place] [address] Name, MD Gregg [address] [place] [address] 09/21/2024 8:00 AM EDT Office Visit [facility] ADULT DENTAL [address] [place] [address] Faye Mi documented as of this encounter Visit Diagnoses Not on filedocumented in this encounter Additional Health Concerns Assessment Noted Time PHQ-9 Depression Total Score: 7 03/04/19 23 9:17 AM EST documented as of this encounter Care Teams Arc Cutter Relationship Specialty Start Date End Date Name, MD Gregg [address] [place] [address] PCP - General Family Medicine 04/16/15 documented as of this encounter
--- OUTSIDE RECORDS SUMMARY | 2024-05-11 19:02 | XMS_ITS | Encounter Summary ---
Author Organization [employer] Address [address] [facility] 7t [place] [address] Care Team Providers Care Inspector Multifocal Lens Name Role Phone Name, Gregg DIAMOND Primary Care Provider Reason for Visit * Reason Onset Date Comments Medication Question 03/22/2024 Encounter Details Date Type Department Care Team ([facility] st Contact Info) Description 03/22/2024 Telephone [facility] MEDICINE [address] [place] [address] Name, MD Gregg [address] [place] [address] Medication Question Social History Tobacco Use Types Packs/Day Years [...] Telephone Encounter - Maura Taylor RN - 04/12/2024 3:36 PM EST TC placed to Lacie ([facility] Water Pump [employer]icer regarding Zepbound. Lacie states The pt had a mental breakdown because she called Dr. Gandhi's office requesting for the dose to be increased and someone told her she needs to wait to speak to the provider in June as the provider did not increase the dose when amessage was sent to him. Lacie states the pt had a mental breakdown and states she felt bullied as she was told to go to the gym. Lacie states the pt took the recommendations the wrong way and broke down. Lacie calling to confirm the provider did not send an increased dose for pt. RN advisedLacie the provider was messaged about a dose increase and did not increase the dose. Lacie states she speaks to the pt every day and they have a good relationship. Lacie states she will call ptand discuss with her that the provider did not send the dose increase and needs to wait until scheduled appointment to discuss. Advised Lacie that pt should exercise and make healthy food decisions. Pt was encouraged to go to gym on 04/10/24. Lacie states she helps her with setting up [employer] and believes the pt began last weekend. Lacie denies any further questions at this time. * Telephone Encounter - Ghanshyam Suarez - 04/12/2024 3:12 PM EST Tc from Lacie (Water [employer]) requesting a call back regarding Zepbound to be a higher dosage. Regarding Prior Message. [phone] Ext [phone] * Telephone Encounter - Ling England RN - 04/06/2024 12:08 PM EST Call returned to pt. Pt states that she is extremely frustrated that she is gaining weight despite her efforts at weight loss. Pt states that she has joined a gym and plans to start exercising there.States that she is following PCP recommendations and is walking and exercising as she is able. Pt asking PCP to increase her Zepbound dose. Pt reports that she is out of the medication and her next injection is due 04/12/24. Advised request will be sent to PCP for review. * Telephone Encounter - Marla Magallon - 04/05/2024 11:18 AM EST Tc from pt requesting a call back regarding message below. * Telephone Encounter - Maura Taylor RN - 03/22/2024 10:37 AM EST TC placed [facility] pharmacy to determine if pt picked up medication. [facility] Staff More states pt picked up Zepbound on 03/10/24. TC placed to pt regarding medication request. Pt states she is currently 174 and has been for the last two weeks. Advised pt to continue Zepbound as prescribed and if she begins to gain weight, or continues to weigh 174 lbs, to call office back. Pt reports she is frustrated as she was 168 lbs and is now 174 lbs. Pt reports she only drinks water and has mint candies on occasion if craving sweets. Pt reports she eats protein bars. Advised pt to avoid sweets and soda, increase protein in diet, andtry to walk daily per provider recommendation. Pt verbalized understanding and denies questions or concerns at this time. * Telephone Encounter - Marla Magallon - 03/22/2024 10:27 AM EST Tc from pt requesting higher doses of zepbound. Pt claims that she gained weight due to using the same dose for 4 months. ((Zepbound) 5 MG/0.5ML) Any questions: [phone] (mongolian) documented in this encounter Plan of Treatment Upcoming Encounters Date Type Department Care Team (Late st Contact Info) Description 05/12/2024 9:00 AM EDT Office Visit [facility] ADULT DENTAL [address] [place] [address] Ayan Calvin DMD [address] [place] [address] 07/17/2024 11:30 AM EDT Office Visit [facility] MEDICINE [address] [place] [address] Name, MD Gregg [address] [place] [address] 09/21/2024 8:00 AM EDT Office Visit [facility] ADULT DENTAL [address] [place] [address] Faye Mi documented as of this encounter Visit Diagnoses Not on filedocumented in this encounter Additional Health Concerns Assessment Noted Time PHQ-9 Depression Total Score: 0 09/01/19 24 10:42 AM EDT documented as of this encounter Care Teams Inspector Multifocal Lens Relationship Specialty Start Date End Date Name, MD Gregg [address] [place] [address] PCP - General Family Medicine 04/16/15 documented as of this encounter
--- OUTSIDE RECORDS SUMMARY | 2024-05-11 19:02 | XMS_ITS | Encounter Summary ---
Author Organization [employer] Address [address] [facility] 7t [place] [address] Care Team Providers Care Sales Compensation Analyst Name Role Phone Name, Gregg DIAMOND Primary Care Provider [phone] Reason for Visit * Reason Onset Date Comments Durable Medical Equipment 03/29/2024 Encounter Details Date Type Department Care Team (Late st Contact Info) Description 03/29/2024 Telephone [facility] [address] [place] [address] Name, MD Gregg [address] [place] [address] Durable Medical Equipment Social History Tobacco Use Types Packs/Day Years [...] * Telephone Encounter - Valentina Beltran - 05/02/2024 12:12 PM EDT Sent message to DME team in [facility] requesting update for on order status. * Telephone Encounter - Valentina Beltran - 04/11/2024 1:11 PM EST New Rx signed and scanned into media. Rx also uploaded to in progress order. * Telephone Encounter - Valentina Beltran - 03/31/2024 10:58 AM EST DME RX for Rollator Walker w/seat generated and placed on providers desk for signature. Authorization Rep contacted who states in progress order can be modified, just need new Rx. * Telephone Encounter - Shubham Booth - 03/29/2024 10:08 AM EST Tc from pt requesting a rollator walker with seat as coordinator inform pt that's the one she needs. documented in this encounter Plan of Treatment Upcoming Encounters Date Type Department Care Team (Late st Contact Info) Description 05/12/2024 9:00 AM EDT Office Visit [facility] [address] [place] [address] Ayan Calvin, RAMIREZ [address] [place] [address] 07/17/2024 11:30 AM EDT Office Visit [facility] [address] [place] [address] Gregg Gandhi MD [address] [place] [phone] 09/21/2024 8:00 AM EDT Office Visit [facility] [address] [place] [address] Faye Mi documented as of this encounter Visit Diagnoses Not on filedocumented in this encounter Additional Health Concerns Assessment Noted Time PHQ-9 Depression Total Score: 0 09/01/19 24 10:42 AM EDT documented as of this encounter Care Teams Sales Compensation Analyst Relationship Specialty Start Date End Date NameGregg MD [address] [place] [phone] PCP - General Family Medicine 04/16/15 documented as of this encounter
--- OUTSIDE RECORDS SUMMARY | 2024-05-11 19:02 | XMS_ITS | Encounter Summary ---
Author Organization [employer] Address [address] [facility] [address] [place] [address] Care Team Providers Care Malt House Operator Name Role Phone Name, Gregg DIAMOND Primary Care Provider [phone] Reason for Visit * Reason Onset Date Comments Nurse Triage 11/27/2022 Encounter Details Date Type Department Care Team ([facility] st Contact Info) Description 11/27/2022 Telephone [facility] [address] [place] [address] Name, MD Gregg [address] [place] [address] Nurse Triage Social History Tobacco Use Types [...] * Telephone Encounter - Sheridan Stringer - 11/27/2022 9:42 AM EDT Symptom: Dizziness Outcome: Schedule an appointment to be seen within 24 hours Reason: Caller denied all higher acuity questions The caller accepted this outcome Does not need automotive tire tester . documented in this encounter Plan of Treatment Upcoming Encounters Date Type Department Care Team (Late st Contact Info) Description 05/12/2024 9:00 AM EDT Office Visit [facility] [address] [place] [address] Ayan Calvin DMD [address] [place] [address] 07/17/2024 11:30 AM EDT Office Visit [facility] [address] [place] [address] Name, MD Gregg [address] [place] [address] 09/21/2024 8:00 AM EDT Office Visit [facility] [address] [place] [address] Faye Mi documented as of this encounter Visit Diagnoses Not on filedocumented in this encounter Additional Health Concerns Assessment Noted Time PHQ-9 Depression Total Score: 7 03/04/19 23 9:17 AM EST documented as of this encounter Care Teams Malt House Operator Relationship Specialty Start Date End Date Name, MD Gregg [address] [place] [address] PCP - General Family Medicine 04/16/15 documented as of this encounter
--- OUTSIDE RECORDS SUMMARY | 2024-05-11 19:02 | XMS_ITS | Encounter Summary ---
Author Organization [employer] [facility] Address [address] [facility] 7t [place] [address] Care Team Providers Care Honing Machine Operator Production Name Role Phone Name, Gregg DIAMOND Primary Care Provider Encounter Details Date Type Department Care Team (Latest Contact Info) Description 09/27/2018 Abstract [facility] Dental, Provider, DDS Social History Tobacco Use Types Packs/Day Years Used Date Smoking Tobacco: Never Assessed Comments Unknown Sex and Gender Information Value Date Recorded Sex Assigned at Female 12/15/2021 10:22 AM EDT Legal Sex Female 10:22 AM EDT Gender Identity Female 12/15/2021 10:22 AM EDT Sexual Orientation Straight 12/15/2021 10 :22 AM EDT documented as of this encounter Plan of Treatment Upcoming Encounters Date Type Department Care Team ( st Contact Info) Description 05/12/2024 9:00 AM EDT Office Visit [facility] [address] [place] [address] Ayan Calvin DMD [address] [place] [address] 07/17/2024 11:30 AM EDT Office Visit [facility] [address] [place] [address] Name, MD Gregg [address] [place] [address] 09/21/2024 8:00 AM EDT Office Visit [facility] [address] [place] [address] Faye Mi documented as of this encounter Visit Diagnoses Not on filedocumented in this encounter Care Teams Honing Machine Operator Production Relationship Specialty Start Date End Date Name, MD Gregg [address] [place] [address] PCP - General Family Medicine 04/16/15 documented as of this encounter
--- OUTSIDE RECORDS SUMMARY | 2024-05-11 19:02 | XMS_ITS | Encounter Summary ---
Author Organization [employer] Address [address] [address] 7[address] [place] [address] Care Team Providers Care Filling Winder Name Role Phone Gregg Gandhi MD Primary Care Provider [phone] Reason for Referral * Consultation (Routine) - Authorized Specialty Diagnoses / Procedures Referred By Murray flores Referred To Contact Gastroenterology Diagnoses Diverticulitis Gregg Gandhi MD [address] [place] [address] Phone: tel: fax: [facility] [address] [place] [address] Drive 2nd Floor [place], [place] Phone: tel: fax: Referral ID Status Reason Start Date Expiration Date Visits Requested Visits Authorized [id number] Authorized Specialty Services Required 05/08/2024 05/08/2025 1 1 Reason for Visit * Reason Comments ER Follow-up Encounter Details Date Type Department Care Team (Latest Contact Info) Description 05/08/2024 11:15 AM EDT Office Visit [facility] [address] [place] [address] Gregg Gandhi MD [address] [place] [phone] Diverticulitis (Primary Dx); Left hip pain Social History Tobacco Use Types Packs/Day Years Used Date Smoking Tobacco: Former Cigarettes Passive Smoke Exposure: Past Smokeless Tobacco: Never Tobacco Cessation:Counseling Given: Not Answered Alcohol Use Standard Drinks/Week Comments Not Currently [...] is your housing situation today? I have loyl loredo 09/01/[address] you [...] Sign Reading Time Taken Comments Blood Pressure 115/75 05/08/2024 11:23 AM EDT Pulse 90 05/08/2024 11:23 AM EDT Temperature 36.6 ??C (97.8 ??F) 05/08/2024 1 1:23 AM EDT Respiratory Rate 21 05/08/2024 11:2 3 AM EDT Oxygen Saturation 98% 05/08/2024 11: 23 AM EDT Inhaled Oxygen Concentration - - Weight 77.5 kg (170 lb 12.8 oz) 025 11:23 AM EDT Height 160 cm (5' 3 ) 05/08/2024 11:23 AM EDT Body Mass Index 30.26 05/08/2024 11:23 AM EDT documented in this encounter Progress Notes * Gregg Gandhi MD - 05/08/2024 11:15 AM EDT Subjective Patient ID: Mag Ayala is a 63 y.o. female who presents for ER Follow-up. Patient comes for a follow-up visit. Since her last appointment with me she was evaluated at [facility] ER because of abdominal discomfort and left groin pain. Evaluation included CT scan of the abdomen. She was diagnosed with mild diverticulitis. She is currently on treatment with Augmentin.She denies any abdominal discomfort. Her last colonoscopy was done 4 years ago at [facility] She was recommended to repeat colonoscopy next year. She continues to complain of left groin pain. Left groin pain associated with movements like walking or standing. She walks with a walker. Recent x-ray of the left hip are unremarkable. 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 Review of Systems Constitutional: Negative for chills and fever. HENT: Negative for sore throat. Respiratory: Negative for cough, shortness of breath and wheezing. Cardiovascular: Negative for chest pain, palpitations and leg swelling. Gastrointestinal: Negative for abdominal pain. Musculoskeletal: See HPI Visit Vitals BP 115/75 (BP Location: Left arm, Patient Position: Sitting, BP Cuff Size: Adult) Pulse 90 Temp 97.8 ??F (36.6 ??C) (Temporal) Resp 21 Ht 5' 3 (1.6 m) Wt 170 lb 12.8 oz (77.5 kg) SpO2 98% BMI 30.26 kg/m?? Smoking Status Former BSA 1.86 m?? Objective Physical Exam Constitutional: Appearance: Normal appearance. Cardiovascular: Rate and Rhythm: Normal rate and regular rhythm. Heart sounds: No murmur heard. No gallop. Pulmonary: Effort: Pulmonary effort is normal. No respiratory distress. Breath sounds: Normal breath sounds. No wheezing. Musculoskeletal: Right lower leg: No edema. Left lower leg: No edema. Comments: Antalgic gait. The patient uses a walker to ambulate. Neurological: Mental Status: She is alert. 05/04/24 Range/Units 17:24 WBC 7.2 (4.8-10.8) X10*3/uL RBC 4.90 (4.20-5.50) X10*6/uL Hgb 12.8 (12.0-16.0) g/dl Hct 41.0 (37.0-47.0) % MCV 83.7 (80.0-98.0) fL MCH 26.1 L (27.0-33.0) pg MCHC 31.2 (31.0-35.0) g/dl RDW 15.5 (11.0-16.0) % Plt Count 323 (160-400) X10*3/uL MPV 9.7 (9.4-12.3) fL Immature Gran % (Auto) 0.4 (0.0-0.4) % Neut % (Auto) 61.6 (45-73) % Lymph % (Auto) 23.8 (20-40) % Burnett % (Auto) 11.4 H (2-11) % Eos % (Auto) 2.1 (0-4) % Baso % (Auto) 0.7 (0-2) % Lymph # (Auto) 1.7 (1.2-4.9) X10*3/uL Burnett # (Auto) 0.8 (0.1-1.2) X10*3/uL Eos # (Auto) 0.2 (0.0-0.4) X10*3/uL Baso # (Auto) 0.1 (0.0-0.2) X10*3/uL Abs Immat Gran (auto) 0.03 (0.00-0.03) X10*3/uL Absolute Neuts (auto) 4.4 (2.0-8.3) x10*3/uL Absolute Nucleated RBC 0.000 (0.0-0.012) X10*3/uL Nucleated RBC % (auto) 0.0 (0.0-0.2) /100WBC Sodium 139 (135-145) mmol/L Potassium 4.5 (3.3-5.1) mmol/L Chloride 106 (96-108) mmol/L Carbon Dioxide 26 (22-29) mmol/L Anion Gap 12 (12-20) BUN 16 (9-16) mg/dL Creatinine 0.72 (0.5-1.4) mg/dL Estim Creat Clear Calc 78.0 Estimated GFR > 60 Random Glucose 80 (60-115) mg/dL Calcium 9.1 (8.4-10.2) mg/dL Magnesium 2.3 (1.6-2.6) mg/dL Total Bilirubin 0.2 (0.0-1.0) mg/dL Direct Bilirubin < 0.2 (0.0-0.5) mg/dL AST 29 (5-31) U/L ALT 24 (0-31) U/L Alkaline Phosphatase 66 (39-117) U/L Total Protein 7.5 (6.5-8.0) g/dL Albumin 3.7 (3.5-5.0) g/dL Lipase 23 (8-78) U/L Urine Color Yellow Urine Appearance Clear Urine pH 5.5 (5.0-9.0) Ur Specific [place] 1.010 (1.005-1.025) Urine Protein Negative (Neg-Trace) mg/dL Urine Glucose (UA) Negative (Negative) mg/dL Urine Ketones Negative (Negative) mg/dL Urine Blood Small (1+) H (Negative) Urine Nitrite Negative (Negative) Ur Leukocyte Esterase Negative (Negative) Urine RBC 0-2 (0-2) /HPF Urine WBC 0-5 (0-5) /HPF Ur Squamous Epith Cells 0-2 (0-2) /HPF Urine Bacteria None Seen (None Seen) Hyaline Casts 0-2 (0-2) /LPF [address] [address] [address] Scan Report Signed Patient: Mag Ayala MR#: [id number] 4 : 1960 Acct:[id number] Age/Sex: 63 / F ADM Date: 05/04/24 Loc: HO.ED Attending Dr: Ordering Physician: Mitch Roberts MD Date of Service: 05/04/24 Procedure(s): CT abdomen pelvis wo IV con Accession Number(s): [id number] cc: Oksana,Gregg DIAMOND; Mitch Roberts MD Report Number: [id number]: Total DLP = 608.00 mGy-cm CLINICAL HISTORY: [...] moderate osteoarthritis both hips. Degenerative changes include mhjmphrg-jr-yswhuz facet arthropathy, particularly in the lower lumbar [...] signed by Destin Gibson MD in OV> 05/04/[address] [place] [address] XRay Report Signed Patient: Mag Ayala MR#: [id number] 4 : 1960 Acct:[id number] Age/Sex: 63 / F ADM Date: 05/01/24 Loc: HO.ED Attending Dr: Ordering Physician: Stephen Sexton MD Date of Service: 05/01/24 Procedure(s): XR hip LT w PEL1V Accession Number(s): [id number] cc: Stephen Sexton MD; Name,Gregg DIAMOND CLINICAL [...] Harsha Guzmán MD in OV> 05/02/24 0011 Discharge Plan Assessment/Plan Diagnoses and all orders for this visit: Diverticulitis Comments: Patient is currently asymptomatic. I recommended to finish her course of Augmentin and referral to GI at [facility] to see if she is due for a repeat colonoscopy sooner than 2025. Orders: - Referral to Gastroenterology; Future Left hip pain Comments: Musculoskeletal hip pain. I recommended acetaminophen 3 times a day as needed for pain. Keep upcoming appointment with ortho. documented in this encounter Plan of Treatment Upcoming Encounters Date Type Department Care Team (Late st Contact Info) Description 05/12/2024 9:00 AM EDT Office Visit [facility] [address] [place] [address] Ayan Calvin DMD [address] [place] [address] 07/17/2024 11:30 AM EDT Office Visit [facility] [address] [place] [address] Name, MD Gregg [address] [place] [address] 09/21/2024 8:00 AM EDT Office Visit [facility] [address] [place] [address] Faye Mi Scheduled Referrals Name Type Priority Associated Diagnoses Order Schedule Referral to Gastroenterology Outpatient Referral Routine Diverticulitis Expected: 05/08/2024 (Approximate), Expires: 05/08/2025 documented as of this encounter Visit Diagnoses Diagnosis Diverticulitis- Primary Diverticulitis of colon (without mention of hemorrhage) Left hip pain Pain in joint, pelvic region and thigh documented in this encounter Additional Health Concerns Assessment Noted Time PHQ-9 Depression Total Score: 0 09/01/19 24 10:42 AM EDT documented as of this encounter Care Teams Filling Winder Relationship Specialty Start Date End Date Name, MD Gregg [address] [place] [address] PCP - General Family Medicine 04/16/15 documented as of this encounter
--- OUTSIDE RECORDS SUMMARY | 2024-05-11 19:02 | XMS_ITS | Encounter Summary ---
Author Organization [employer] Address [address] [facility] 7t [place] [address] Care Team Providers Care Controlled Area Checker Name Role Phone Name, Gregg DIAMOND Primary Care Provider [phone] Reason for Visit * Reason Comments Transition Of Care (Tcm) Encounter Details Date Type Department Care Team ([facility] st Contact Info) Description 05/05/2024 Patient Outreach [facility] [address] [place], [place] [phone] Name, MD Gregg [address] [place] [address] Transition Of Care (Tcm) Social History Tobacco Use Types Packs/Day Years [...] as of this encounter Progress Notes * Funmi Mcgee RN - 05/05/2024 11:19 AM EDT Transition of Care Note Mag Ayala is going through a recent transition of care. * Funmi Mcgee RN - 05/05/2024 11:19 AM EDT Images from the original note were not included. Hospital Discharges and Admission for [facility] Type of Visit: Emergency Department Date of Admission/Visit: 05/05/24 Date of Discharge: 02/25/24 (5:56 pm) Facility: [facility] Diagnosis: R Groin Pain Disposition: Discharged Home Follow-Up Actions Follow-Up Needed: Provider appointment Follow-Up Outcome: Spoke to Patient Initial Contact Date: 05/05/24 Patient Contacted: Yes Patient Status: Unchanged Call to Mag Ayala, spoke with both patient and CCA coordinator who was in the home Lacie Magallon. Reports pt still having some pain but was able to sheepskin pickler rx given at discharge amoxicillin-pot clavulanate 875-125 mg tablet 1 tab PO BID Qty: 20 0RF cyclobenzaprine 10 mg tablet 10 mg PO Q8H Qty: 20 0RF oxycodone 5 mg tablet 5 mg PO Q6H PRN (Reason: pain) Qty: 20 0RF Rx Instructions: Partial Fill upon patient request. Pt requesting DME for Wedge Pillow to help when laying down. Pt advised will send request to PCP yadira and advise PA Specialist if agreeable. Pt agrees to PCP appt next week for follow up to discuss ER visit and Referral request discussed yesterday. The full discharge summary is under encounters. Review Flowsheet [facility] Transition of Care Documentation Type of Visit Date of Admission/Visit Date of Discharge Facility Diagnosis Disposition 01/31/2024 8:14 AM Emergency Department 01/28/2024 01/28/2024 [facility] Weakness and Nausea Discharged Home 02/28/2024 10:03 AM Emergency Department 02/25/2024 5:10 pm 02/25/2024 5:[address] [facility] Mech fall, ? fx right big toe Discharged Home 05/05/2024 11:20 AM Emergency Department 05/05/[address] - [facility] R Groin Pain Discharged Home Recent Visits Date Type Provider Dept 03/08/24 Office Visit Gregg Gandhi MD [facility] Medicine 01/28/24 Office Visit Taya Watson MD [facility] 01/21/24 Office Visit Gregg Gandhi MD [facility] Medicine 12/07/23 Office Visit Alicia Espinoza MD [facility] 12/01/23 Office Visit Yennifer Jimenez MD [facility] 11/11/23 Office Visit Yennifer Jimenez MD [facility] 10/26/23 Office Visit Gregg Gandhi MD [facility] Medicine 09/01/23 Office Visit Gregg Gandhi MD [facility] Medicine 08/24/23 Office Visit Steve Hoyt MD [facility] Medicine 08/20/23 Office Visit Jeff Newman MD [facility] Showing recent visits within past 365 days with a meds authorizing provider and meeting all other requirements Future Appointments Date Type Provider Dept 05/08/24 Appointment Gregg Gandhi MD [facility] Medicine 07/17/24 Appointment Gregg Gandhi MD [facility] Medicine Showing future appointments within next 150 days with a meds authorizing provider and meeting all other requirements Patient was educated on hours of operation. documented in this encounter Plan of Treatment Upcoming Encounters Date Type Department Care Team (Late st Contact Info) Description 05/12/2024 9:00 AM EDT Office Visit [facility] [address] [place] [address] Ayan Calvin, RAMIREZ [address] [place] [address] 07/17/2024 11:30 AM EDT Office Visit [facility] [address] [place] [address] Gregg Gandhi MD [address] [place] [address] 09/21/2024 8:00 AM EDT Office Visit [facility] [address] [place] [address] Faye Mi documented as of this encounter Visit Diagnoses Not on filedocumented in this encounter Additional Health Concerns Assessment Noted Time PHQ-9 Depression Total Score: 0 09/01/19 24 10:42 AM EDT documented as of this encounter Care Teams Controlled Area Checker Relationship Specialty Start Date End Date Gregg Gandhi MD [address] [place] [phone] PCP - General Family Medicine 04/16/15 documented as of this encounter
--- OUTSIDE RECORDS SUMMARY | 2024-05-11 19:02 | XMS_ITS | Clinical Summary ---
Author Organization [employer] Address [address] [facility] [address] [place] [address] Care Team Providers Care Honeycomb Decapper Name Role Phone Name, Gregg DIAMOND Primary Care Provider [phone] Allergies Active Allergy Reactions Criticality Noted Date Comments Nalbuphine Anaphylaxis,Shortness of breath High 07/17 Medications albuterol 108 (90 Base) MCG/ACT inhaler Inhale 2 puffs every 4 (four) hours if needed. 12/02/19 22 Active chlorhexidine (Peridex) 0.12 % solution Place 15 mL into mouth between cheek and gum every 12 (twelve) hours. 12/12/19 22 Active cyclobenzaprine (Flexeril) 10 MG tablet one qhs prn pain 12/02/19 22 Active gabapentin (Neurontin) 100 MG capsule Take 1 capsule by mouth every 8 (eight) hours. Active levothyroxine (Synthroid, Levoxyl) 100 MCG tablet Take 1 tablet by mouth at bed time. 07/20/19 19 Active midodrine (Proamatine) 10 MG tablet Take 1 tablet by mouth every 12 (twelve) hours. Active perphenazine 4 MG tablet Take 1 tablet by mouth every 12 (twelve) hours. Active Transderm-Scop 1 MG/3DAYS patch 72 hour APPLY 1 PATCH [place] EVERY 3 DAYS 10 patch 12/26/19 23 Active ondansetron (Zofran) 4 MG tablet Take 1 tablet (4 mg) by mouth if needed each day for nausea or vomiting. 20 tablet 05/25/19 24 025 Active hydroCHLOROthia zide (HYDRODiuril) 12.5 MG tablet Take 1 tablet (12.5 mg) by mouth Once per day. 90 tablet 3 06/07/19 24 025 Active omeprazole (PriLOSEC) [address] capsule TAKE 1 CAPSULE BY MOUTH EVERY MORNING BEFORE BREAKFAST. DO NOT BREAK, CRUSH, DISSOLVE OR CHEW 90 capsule 3 08/26/19 24 Active Aspirin Low Dose 81 MG EC tablet Take 81 mg by mouth at bedtime. 07/02/19 24 Active estazolam (Prosom) 2 MG tablet Take 2 mg by mouth at bedtime. Active estazolam (Prosom) 1 MG tablet Take 1 mg by mouth at bedtime. 08/02/19 24 Active venlafaxine (Effexor) 25 MG tablet TAKE 1 TABLET BY MOUTH EVERYDAY AT NOON Active hydrocortisone 0.5 % cream Apply topically 2 times daily. 28 g 1 10/26/19 24 Active meclizine (Antivert) 25 MG tablet TAKE 1 TABLET BY MOUTH TWICE DAILY NEEDED 60 tablet 4 10/27/19 24 Active docusate sodium (Colace) 100 MG capsule TAKE 1 CAPSULE BY MOUTH EVERY DAY 90 capsule 1 11/23/19 24 Active ipratropium (Atrovent) 0.06 % nasal sprayIndication s:Viral upper respiratory tract infection with cough 2 sprays each nostril bid prn rhinorrhea, malay 15 mL 12/07/19 24 Active doxepin (SINEquan) 75 MG capsule Take 1 capsule by mouth at bedtime 12/22/19 24 Active Fluticasone-Quique meterol 250-50 MCG/ACT aerosol powder Inhale 1 puff by mouth twice daily. Rinse mouth after using. 12/23/19 24 Active Lidocaine (HM Lidocaine Patch) 4 % patch Apply once a day to affected area of the low back 30 patch 3 01/21/20 24 Active azithromycin (Zithromax) 250 MG tablet Take 2 tabs day and then 1 tab daily 6 tablet 01/28/20 24 Active alendronate (Fosamax) 70 MG tabletIndicatio ns:Osteoporosis , unspecified osteoporosis type, unspecified pathological fracture presence TAKE 1 TABLET BY MOUTH ONCE A WEEK WITH 6 TO 8 OZ OF WATER 20 MINUTES BEFORE FIRST FOOD OF DAY. DO NOT LIE DOWN FOR 30 MINUTES. 12 tablet 02/16/19 25 Active pyridoxine (Vitamin B-6) 100 MG tabletIndicatio ns:Bariatric surgery status TAKE 2 TABLETS BY MOUTH ONCE DAILY AT NOON 180 tablet 3 03/14/19 25 Active magnesium oxide (Mag-Ox) 400 MG tabletIndicatio ns:Osteoporosis , unspecified osteoporosis type, unspecified pathological fracture presence TAKE 1 TABLET BY MOUTH AT NOON WITH FOOD 90 tablet 1 03/20/19 25 Active cholecalciferol (Vitamin D-3) 25 MCG tabletIndicatio ns:Osteoporosis , unspecified osteoporosis type, unspecified pathological fracture presence TAKE 1 TABLET BY MOUTH EVERYDAY AT NOON 90 tablet 05/04/19 25 Active Tirzepatide-Eddie ght Management (Zepbound) 7.5 MG/0.5ML solution auto-injector Inject 0.5 mL (7.5 mg) under the skin 1 (one) time per week. 2 mL 3 05/11/19 25 Active cholecalciferol (Vitamin D-3) 25 MCG tabletIndicatio ns:Osteoporosis , unspecified osteoporosis type, unspecified pathological fracture presence TAKE 1 TABLET BY MOUTH EVERYDAY AT NOON 90 tablet 12/29/19 24 025 Discontinued Tirzepatide-Eddie ght Management (Zepbound) 5 MG/0.5ML solution auto-injector Inject 0.5 mL (5 mg) under the skin 1 (one) time per week. 2 mL 11 03/08/19 25 025 Discontinued(Do se adjustment) acetaminophen (Tylenol) 500 MG tablet Take 1 tablet (500 mg) by mouth every 8 (eight) hours if needed for mild pain or moderate pain for up to 5 days. 15 tablet 04/10/19 25 025 chlorhexidine (Peridex) 0.12 % solution Use 15 mL in the mouth or throat if needed in the morning, at noon, and at bedtime (PROPHYLAXIS ) for up to 5 days. 110 mL 04/10/19 25 025 penicillin v potassium (Veetid) 500 MG tabletIndicatio ns:Sore throat Take 1 tablet (500 mg) by mouth every 6 (six) hours for 10 days. 40 tablet 04/10/19 25 025 Tirzepatide 10 MG/0.5ML solution auto-injector Inject under the skin. 025 Discontinued(Re order (will not trigger notification to Pharmacy)) Tirzepatide 10 MG/0.5ML solution auto-injectorIn dications:Class 1 obesity Inject 0.5 mL under the skin 1 (one) time per week. Inject under the skin one time per week 2 mL 11 05/09/19 25 025 Discontinued(Do se adjustment) Active Problems Problem Noted Date Diagnosed Date Bronchitis 05/02/2024 Overview (05/02/2024): SHE HAS A LOW-GRADE UPPER AIRWAY IRRITATION PROBABLY DUE TO BRONCHITIS Injury of right great toe 05/02/2024 Osteoarthritis of right knee 05/02/2024 Postop check 05/02/2024 Viral upper respiratory tract infection with cou gh 12/07/2023 Assessment & Plan (12/07/2023 3:24 PM EDT): COVID, Flu and Strep negative. Recommended OTC decongestive. -prescribing ipratropium nasal spray 12/07/23 -No evidence of respiratory distress. Symptoms mild. -No evidence of dehydration. -Supportive care advised. -Isolation recommendations discussed. -ER precautions discussed. -Seek medical attention for worsening symptoms. Asthma exacerbation 12/01/2023 Assessment & Plan (12/01/2023 12:07 PM EDT): I will treat for asthma exacerbation Prednisone 40mg daily C/w albuterol nebz Q 4-6hrs if needed CXR ordered patient will be contacted with results Panic attack 12/01/2023 Assessment & Plan (12/01/2023 12:07 PM EDT): Likely patient is having a panic attack but patient insists this is not true Counseling done today Flu-like symptoms 11/11/2023 Assessment & Plan (11/11/2023 1:40 PM EDT): I advise to rest and drink plenty of fluids Acetaminophen PRN Severe dental caries 10/01/2023 Non-restorable tooth 10/01/2023 Constipation 09/01/2023 Dysuria 09/01/2023 Lipoma of abdominal wall 09/01/2023 Lipoma of back 09/01/2023 Somnolence, daytime 09/01/2023 Right-sided back pain 09/01/2023 Obesity (BMI 30-39.9) 09/01/2023 Clostridium difficile infection 09/01/2023 Fall 09/01/2023 Dizziness 09/01/2023 Acute right-sided back pain 08/24/2023 Assessment & Plan (08/24/2023 10:17 AM EDT): Patient here with c/o right sided back/flank pain for several days associated with urinary hesitancy and blood in the urine. On exam there is no CVA tenderness, abdomen is soft and no tender U/A positive for moderate amount of blood , Neg for nitrites, trace leuks Etiology ? Pt with Hx of nephrolithiasis, will need to rule out. She also has a Hx of chronic low back pain for which she is already in the process of seeing [facility] Plan: Increase fluids, pain control CT of abdomen and pelvis, will send Urine for uCx Follow up if symptoms do not improve or worsen Clostridium difficile enterocolitis 06/17/2023 History of cholecystectomy 06/17/2023 Hx of pheochromocytoma 11/20/2022 Overview (09/01/2023): Last Assessment & Plan: Metanephrines within the reference range. Must check metanephrines at least once a year. 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 Sometimes she has to stop it for a month to 3 months and then resume it. I will continue to prescribe the medication. She needs to monitor her diet. Last Assessment & Plan: Gained 4 lbs since the last visit. Phentermine not very effective but the insurance company will not pay for other obesity medications. Migraine 07/14/2017 Acid reflux 06/19/2016 Chronic low back pain 05/07/2015 Hx of gastric bypass 03/12/2015 Chronic headache disorder 07/12/2012 H/O total adrenalectomy 06/22/2012 Right upper quadrant pain 06/22/2012 Bronchial asthma 06/09/2012 Obstructive sleep apnea syndrome 04/06/2012 Annular tear of lumbar disc 03/10/2012 Backache 01/20/2012 Diverticular disease 01/20/2012 Assessment & Plan (08/24/2023 10:19 AM EDT): Patient had a CT of her abdomen 06/01/2023 that showed: Marked thickening of the wall of the sigmoid with luminal narrowing. There are numerous diverticula in this area. Last colonoscopy by Dr vazquez 08/08/2020 Plan: Refer back to Dr. Vazquez given CT findings. Pt might need a sigmoidoscopy Helicobacter pylori antibody above reference ran ge 01/12/2012 Impaired fasting glucose 12/14/2011 Morbid obesity 12/14/2011 Hypertension 10/14/2011 Anxiety and depression 08/07/2011 Anxiety 07/22/2011 Acquired hypothyroidism 07/22/2011 Overview (09/01/2023): Last Assessment & Plan: The patient is chemically and clinically euthyroid we will continue current dose of medication. She should repeat thyroid function studies prior to the follow-up visit in 6 months. Last Assessment & Plan: Chemically euthyroid based on last thyroid functions studies. Thyroid functions were last checked was in the reference range. Recent lab work not available contacted [facility] for results. Will renew medications at the current dose. Pseudotumor cerebri 07/05/2011 Resolved Problems Problem Noted Date Diagnosed Date Resolved Date Blood in stool 07/30/2022 10/07/2022 Close exposure to 2019-nCoV 07/30/2022 10/07/2022 Early satiety 07/30/2022 10/07/2022 Easy bruising 07/30/2022 10/07/2022 Strain of tendon of medial thigh muscle 07/30/2022 10/07/2022 Acute low back pain 01/14/2022 10/08/19 Hirsutism 05/23/2020 10/07/2022 Overview (07/30/2022): Last Assessment & Plan: The patient complains of hirsutism. I will evaluate for congenital adrenal hyperplasia, Bebe syndrome, polycystic ovarian syndrome although that seems unlikely. She was advised to do lab work fasting. She must to do this early in the morning soon after waking up. She must take dexamethasone 1 mg tablet the night before blood work. Syncope and collapse 07/14/2017 023 Recurrent falls 08/31/2016 10/07/2022 Hoarseness 06/19/2016 10/07/2022 Forgetfulness 09/21/2012 10/07/2022 Fall 01/20/2012 10/07/2022 Fatigue 12/14/2011 10/07/2022 Encounters Date Type Department Care Team Description 05/09/[address] [facility] MEDICINE [address] [place] [address] Natalie Nathan RN 05/08/2024 11:15 AM EDT Office Visit [facility] [address] [place] [address] Gregg Gandhi MD Diverticulitis (Primary Dx); Left hip pain 05/08/[address] [facility] MEDICINE [address] [place] [address] Gregg Gandhi MD Class 1 obesity (Primary Dx) 05/08/2024 Travel 05/05/[address] [facility] MEDICINE [address] [place] [address] Gregg Gandhi MD Durable Medical Equipment 05/05/2024 Patient Outreach [facility] MEDICINE [address] [place] [address] Gregg Gandhi MD Transition Of Care (Tcm) 05/04/[address] [facility] MEDICINE [address] [place] [phone] Gregg Gandhi MD Nurse Triage 05/03/2024 2:15 PM EDT Telemedicine [address] [address] Gregg Gandhi MD Right knee pain, unspecified chronicity (Primary Dx); Osteoarthritis of right knee, unspecified osteoarthritis type; Obesity (BMI 30-39.9) 05/03/2024 Travel 05/03/[address] [facility] PEDIATRICS [address] [place] [phone] Gregg Gandhi MD Return Call 05/03/[address] [facility] MEDICINE [address] [place] [phone] [place], [place], [employer] Osteoporosis, unspecified osteoporosis type, unspecified pathological fracture presence 05/02/[address] [address] Gregg Gandhi MD ER Follow-up; Nurse Triage 05/01/2024 9:00 AM EDT Office Visit [facility] ADULT DENTAL [address] [place] [phone] Ayan Calvin DMD 05/01/2024 Orders Only [facility] External Provider, [facility] 05/01/[address] [address] Gregg Gandhi MD Prior Authorization (Lidocaine ) 04/19/2024 Travel 04/19/[address] [phone] Sweta Giraldo [place] Appointment Request 04/18/[address] [address] Gregg Gandhi MD Appointment Request 04/10/2024 2:00 PM EST Office Visit [facility] WALK-IN CENTER [address] [place] [phone] Sore throat (Primary Dx); Right ear pain 04/10/2024 10:30 AM EST Office Visit [facility] ADULT DENTAL [address] [place] [phone] Ayan Calvin DMD 04/10/[address] [facility] MEDICINE [address] [place] [phone] Gregg Gandhi MD 03/29/[address] [facility] MEDICINE [address] [place] [phone] Gregg Gandhi MD Durable Medical Equipment 03/22/[address] [address] Gregg Gandhi MD Medication Question 03/20/[address] [facility] MEDICINE [address] [place] [phone] Gregg Gandhi MD Osteoporosis, unspecified osteoporosis type, unspecified pathological fracture presence 03/14/[address] [facility] MEDICINE [address] [place] [phone] Gregg Gandhi MD Bariatric surgery status 03/10/2024 10:30 AM EST Office Visit [facility] ADULT DENTAL [address] [place] [phone] Ayan Calvin DMD 03/08/2024 9:00 AM EST Office Visit [address] [address] Gregg Gandhi MD Obesity (BMI 30-39.9) (Primary Dx); Chronic pain of right knee; Primary osteoarthritis of right knee; Spondylosis of lumbar region without myelopathy or radiculopathy 03/08/[address] [address] Gregg Gandhi MD Durable Medical Equipment 02/28/[address] [address] Gregg Gandhi MD ER Follow-up 02/28/2024 Patient Outreach [facility] MEDICINE [address] [place] [phone] Gregg Gandhi MD Transition Of Care (Tcm) 02/28/[address] [facility] ADULT DENTAL [address] [place] [phone] Ayan Calvin DMD broken tooth to hold partial 02/16/[address] [facility] MEDICINE [address] [place] [phone] Gregg Gandhi MD Osteoporosis, unspecified osteoporosis type, unspecified pathological fracture presence 02/14/[address] [facility] MEDICINE [address] [place] [address] Name, MD Gregg from Last 3 Months Immunizations Name Administration Dates Next Due Influenza injectable quadriv alent IIV4 with preservative 12/23/2017,01/04/2017,11/19/2015 Influenza injectable quadriv alent preservative free 11/05/2022,12/01/2021,11/06/2020,11/16,11/08/2018,12/12/2014 Influenza, IIV3, injectable 11/15/2013 Influenza, Split (incl. obi fied surface antigen) 11/21/2012,12/14/2011 Influenza, seasonal, injecta ble, preservative free 10/26/2023 Moderna Covid-19 Vaccine 12+ 05/27/2020,04/30/19 21 Pfizer Covid-19 Vaccine 12+ 11/17/2022, Pneumococcal Conjugate PCV 20 10/26/2023 Pneumococcal Polysaccharide PPSV23 12/14/2011 Tdap 01/27/2016 Zoster, Recombinant 12/22/2021,10/21/2021 Social History Tobacco Use Types Packs/Day Years [...] Orientation Straight 12/15/2021 10 :22 AM EDT Last Filed Vital Signs Vital Sign Reading [...] Mass Index 30.26 05/08/2024 11:23 AM EDT Plan of Treatment Upcoming Encounters Date Type Department Care Team (Late st Contact Info) Description 05/12/2024 9:00 AM EDT Office Visit [facility] ADULT DENTAL [address] [place] [address] Ayan Calvin, DMD [address] [place] [address] 07/17/2024 11:30 AM EDT Office Visit [facility]INE [address] [facility] [place] [phone] Name, MD Gregg [address] [place] [address] 09/21/2024 8:00 AM EDT Office Visit [facility] D[facility]AL [address] [facility] [place] [phone] Faye Mi Health Maintenance Due Date Last Done Comments CT Colonography 1960 FIT DNA/Cologuard 1960 FIT 1960 FOBT 1960 Sigmoidoscopy 1960 Hepatitis C Screening 1976 RSV Patients and Patients Aged 60 years or older (1 - Risk 60-74 years 1-dose series) 2018 COVID-19 Vaccine ( season) 2023 11/17/2022, 12/25/2021, 12/23/2020, Additional history exists Dental Oral Exam 03/03/2024 08/31/2023 Dental Prophylaxis 03/03/2024 08/31/2023 Alcohol/Substance Use Screening 08/31/2024 09/01/2023 Dental X-Ray: Bitewings 08/31/2024 08/31/2023, 08/01 Depression Screening 08/31/2024 09/01/2023, 09/01/19 24 SDOH Screening 08/31/2024 09/01/2023 Mammogram 04/19/2025 04/20/2023, 0204/2022, 04/09/2022, Additional history exists Tobacco Screening 05/08/2025 05/08/2024 Lipid Panel 05/20/2025 05/20/2020 Colonoscopy 08/08/2025 08/08/2020 Colorectal Cancer Screening 08/08/2025 DTaP/Tdap/Td Vaccines (2 - Td or Tdap) 01/26/2026 01/27/2016 Dental X-Ray: Full Mouth 08/31/2026 08/31/2023 Zoster Vaccines Completed 12/22/2021, 10/21/2021 Influenza Vaccine Completed 10/26/2023, , 12/01/2021, Additional history exists Pneumococcal Vaccine: 50+ Years Completed 10/26/2023, 12/14/2011 HIB Vaccines Aged Out No longer eligi ble based on patient's age to complete this topic HPV Vaccines Aged Out No longer eligi ble based on patient's age to complete this topic Hepatitis A Vaccines Aged Out No long er eligible based on patient's age to complete this topic Hepatitis B Vaccines Aged Out No long er eligible based on patient's age to complete this topic IPV Vaccines Aged Out No longer eligi ble based on patient's age to complete this topic Meningococcal Vaccine Aged Out No aura traci eligible based on patient's age to complete this topic RSV under 20 months Aged Out No longe r eligible based on patient's age to complete this topic Rotavirus Vaccines Aged Out No longer eligible based on patient's age to complete this topic Procedures Procedure Name Priority Date/Time Associated Diagnosis Comments CT ABDOMEN PELVIS WO CONTRAST Routine 05/04/2024 10:09 PM EDT US VENOUS DUPLEX LE RT Routine 12:41 AM EDT XR HIP LEFT WITH PELVIS 1 VIEW Routine 05/02/2024 12:09 AM EDT WAX TRY IN Routine 05/01/2024 9:00 AM EDT POCT RAPID STREP A Routine 04/10/2024 1: 59 PM EST Sore throat CASE PRESENTATION, DETAILED AND EXTENSIVE TREATMENT PLANNING Routine 04/10/2024 10:30 AM EST PALLIATIVE (EMERGENCY) TREATMENT OF DENTAL PAIN - MINOR PROCEDURE Routine 04/10/2024 10:30 AM EST INTRAORAL - PERIAPICAL FIRST RADIOGRAPHIC IMAGE Routine 04/10/2024 10:30 AM EST DENTURE IMPRESSION Routine 04/10/2024 10 :30 AM EST BITE REGISTRATION Routine 04/10/2024 10: 30 AM EST DENTURE IMPRESSION Routine 03/10/2024 10 :30 AM EST Full PROPHYLAXIS - ADULT Routine 08/31/2023 1:00 PM EDT Dental plaque Dental calculus INTRAORAL - COMPLETE SERIES OF RADIOGRAPHIC IMAGES Routine 08/31/2023 1:00 PM EDT Dental plaque Dental calculus PERIODIC ORAL EVALUATION - ESTABLISHED PATIENT Routine 08/31/2023 1:00 PM EDT BI MAMMOGRAM SCREENING TOMOSYNTHESIS BILATERAL Routine 04/20/2023 12:05 PM EST HM COLONOSCOPY Routine 08/08/2020 1:49 PM EDT LIPID PANEL, STANDARD Routine 05/20/2020 9:32 AM EDT from Last 3 Months or Most Recently Relevant to Health Maintenance Results * CT Abdomen Pelvis w/o Contrast (05/04/2024 10:09 PM EDT) Anatomical Region Laterality Modality Body, Pelvis, Abdomen Computed T omography 05/04/2024 10:0 9 PM EDT Narrative 05/04/2024 10:11 PM EDT ? [facility] ?[address] ?[place] [address] ? CT Scan Report ? Signed ? Patient: Mag Ayala ?MR#: [id number] ?? 4 ? : 1960 ?Acct:[id number] ? Age/Sex: 63 / F ?ADM Date: 05/04/24 ? Loc: HO.ED ? Attending Dr: ? Ordering Physician: Mitch Roberts MD ?? Date of Service: 05/04/24 ?? Procedure(s): CT abdomen pelvis wo IV con ?? Accession Number(s): [id number] ? cc: Gregg Gandhi MD; Mitch Roberts MD ? Report Number: ?? [id number]: Total DLP = ??608.00 mGy-cm ? CLINICAL [...] osteoarthritis both ?? hips. Degenerative changes include dbbxkmth-[id number]-cuzaxz facet arthropathy, ?? particularly in the lower [...] by Destin Gibson MD in OV> ? 05/04/24 2210 ? DD/ 08 ? TD/TT: 05/04/242208 ? Tire Trucker: ? Procedure Note Laron, Image - 05/04/[address] [place] [id number] [address] Scan Report Signed Patient: Eulalia Ayala#: [id number] 4 : 9Acct:[id number] Age/Sex: 63 / FADM Date: 05/04/24 Loc: HO.ED Attending Dr: Ordering Physician: Mitch Roberts MD Date of Service: 05/04/24 Procedure(s): CT abdomen pelvis wo IV con Accession Number(s): [id number] cc: Gregg Gandhi MD; Mitch Roberts MD Report Number: [id number]: Total DLP = 608.00 mGy-cm CLINICAL HISTORY: [...] moderate osteoarthritis both hips. Degenerative changes include cwmqomqv-yh-wfdjsj facet arthropathy, particularly in the lower lumbar spine. Endplate sclerosis is again multifocal. Mild subcutaneous edema of the subcutaneous soft tissues, dependently. IMPRESSION: Mild diverticulitis, including sigmoid colon. No perforation or abscess formation at this time. This document has been electronically signed by: Destin Gibson MD on 05/04/2024 22:09:02 Dictated By: Destin Gibson MD Signed By: <Electronically signed by Destin iGbson MD in OV> 05/04/242209 DD/ 08 TD/TT: 05/04/242208 T[employer] Trucker: [facility] External Provider IMG CT PROCEDURES Final Result * US VENOUS DUPLEX LE RT (05/02/2024 12:41 AM EDT) Anatomical Region Laterality Modality Abdomen Ultrasound 05/02/2024 12:4 1 AM EDT Narrative 05/02/2024 12:44 AM EDT ? [facility] ?[address] ?[place] [address] ? Ultrasound Report ? Signed ? Patient: Ayala,Mag ?MR#: [id number] ?? 4 ? : 1960 ?Acct:[id number] ? Age/Sex: 63 / F ?ADM Date: 03/17/25 ? Loc: HO.ED ? Attending Dr: ? Ordering Physician: Stephen Sexton MD ?? Date of Service: 05/01/24 ?? Procedure(s): US venous duplex LE RT ?? Accession Number(s): [id number] ? cc: Stephen Sexton MD; Name,Gregg DIAMOND [...] Harsha Guzmán MD in OV> ? 05/02/24 0042 ? DD/ 0041 ? TD/TT: 05/02/24 0041 ? T[employer] Trucker: ? Procedure Note Donsammiter, Image - 05/02/2024 [place] [id number] Ultrasound Report Signed Patient: Eulalia Ayala#: [id number] 4 : 9Acct:[id number] Age/Sex: 63 / FADM Date: 05/01/24 Loc: HO.ED Attending Dr: Ordering Physician: Stephen Sexton MD Date of Service: 05/01/24 Procedure(s): US venous duplex LE RT Accession Number(s): [id number] cc: Stephen Sexton MD; Name,Gregg DIAMOND CLINICAL HISTORY: atraumatic right leg knee pain Venous duplex ultrasound right lower extremity Comparison: None Findings: The visualized deep veins are fully compressible with normal Doppler color flow and spectral tracings. No popliteal cyst. IMPRESSION: 1. Negative for right lower extremity deep vein thrombosis. This document has been electronically signed by: Harsha Guzmán MD on 05/02/2024 00:41:35 Dictated By: Harsha Guzmán MD Signed By: <Electronically signed by Harsha Guzmán MD in OV> 05/02/2441 DD/ TD/TT: 05/02/2440 T[employer] Trucker: us [facility] External Provider IMG US PROCEDURES Edited Result - Final * XR Hip left with Pelvis 1 view (05/02/2024 12:09 AM EDT) Anatomical Region Laterality Modality Lower Extremities, Hip Bilateral Radiograp hic Imaging 05/02/2024 12:0 9 AM EDT Narrative 05/02/2024 12:12 AM EDT ? [facility] ?[address] ?[place] [address] ?XRay Report ? Signed ? Patient: Ayala,Mag ?MR#: [id number] ?? 4 ? : 1960 ?Acct:[id number] ? Age/Sex: 63 / F ?ADM Date: 05/01/24 ? Loc: HO.ED ? Attending Dr: ? Ordering Physician: Stephen Sexton MD ?? Date of Service: 05/01/24 ?? Procedure(s): XR hip LT w PEL1V ?? Accession Number(s): [id number] ? cc: Stephen Sexton MD; Name,Gregg DIAMOND [...] DD/ 0009 ? TD/TT: 05/02/24 0009 ? Tire Trucker: ? Procedure Note Donlokesh, Image - 05/02/[address] [address] XRay Report Signed Patient: Riccardo AyalanMAmanda#: [id number] 4 : 9Acct:[id number] Age/Sex: 63 / FADM Date: 05/01/24 Loc: HO.ED Attending Dr: Ordering Physician: Stephen Sexton MD Date of Service: 05/01/24 Procedure(s): XR hip LT w PEL1V Accession Number(s): [id number] cc: Stephen Sexton MD; Name,Gregg DIAMOND CLINICAL [...] in OV> 05/02/24 0011 DD/ TD/TT: 05/02/248 Tire Trucker: [facility] External Provider IMG XR PROCEDURES Edited Result - Final * (ABNORMAL) POCT rapid strep A manually resulted (04/10/2024 1:59 PM EST) Rapid Strep A Screen Positive( A) Negative, None Detected Swab 04/10/2024 1:59 PM EST Joann Angel CONGRESSIONAL DISTRICT AIDE POINT OF CARE TEST ENTER/EDIT O RDERABLES Final Result * BI Mammogram Screening Tomosynthesis Bilateral (04/20/2023 12:05 PM EST) Anatomical Region Laterality Modality Breast Bilateral Mammography 04/20/2023 12:0 5 PM EST Narrative 05/05/2023 8:29 AM EDT ? [facility] [place] ? [address] ?[place] [address] ? Mammography Report ? Signed ? Patient: Ayala,Mag ?MR#: [id number] ?? 4 ? : 1960 ?Acct:[id number] ? Age/Sex: 62 / F ?ADM Date: 03/05/24 ? Loc: HO.MAMMO ? Attending : Gregg Gandhi MD ? Ordering Physician: Name,Gregg DIAMOND ?Results: 1Negative ? Date of Service: 04/20/23 ?Follow Up: 1 Year From Orig ?? inal Mammogram ? Procedure(s): MM tomosynthesis screening BI ?? Accession Number(s): [id number] ? cc: Name,Gregg DIAMOND ? EXAMINATION: ?? MM SCREENING DIGITAL BREAST TOMOSYNTHESIS, BILATERAL ? CLINICAL INFORMATION: ? Screening. Asymptomatic. ? COMPARISON: ?? Mammography: 04/09/2022, 04/02/2021, 08/01/2019, 02/27/2019, 02/04/2018 ? TECHNIQUE: ?? Digital breast tomosynthesis is performed in both the craniocaudal and ?? mediolateral oblique views along with computer-aided detection (CAD). ?? Synthesized 2D images are generated from the tomosynthesis. ? FINDINGS: ?? There are scattered areas of fibroglandular density (ACR BI-RADS breast ?? composition Category b). ? There are no suspicious masses, suspicious grouped calcifications, or ?? areas of architectural distortion in either breast. The parenchymal ?? pattern is stable from prior exams. ? MM/MM tomosynthesis screening BI ?? IMPRESSION: ?? No mammographic evidence of malignancy. ? ASSESSMENT: ? BI-RADS BI-RADS 1 - Negative ? RECOMMENDATION: ?? Routine annual mammography screening. ? 1 year F/U ? This examination should not preclude the clinical evaluation of a ?? suspicious palpable abnormality. ? This patient's information was entered into a reminder system with a ?? target due date for their next mammogram. ? Dictated By: ?Alverto Carrington MD ? Signed By: ?<Electronically signed by Alverto Carrington MD in OV> ?05/05/23824 ? DD/ 1205 ? TD/TT: ? Tire Trucker: ? Procedure Note Donotheribertointerpreter, Image - 05/05/2023 [facility] [address] [place] [address] Mammography Report Signed Patient: Riccardo AyalanMR#: [id number] 4 : 9Acct:[id number] Age/Sex: 62 / FADM Date: 04/20/23 Loc: HO.MAMMO Attending Dr: Gregg Gandhi MD Ordering Physician: Gregg Gandhiesults: 1Negative Date of Service: 04/20/23Follow Up: 1 Year From Orig inal Mammogram Procedure(s): MM tomosynthesis screening BI Accession Number(s): [id number] cc: Gregg Gandhi MD EXAMINATION: MM SCREENING DIGITAL BREAST TOMOSYNTHESIS, BILATERAL CLINICAL INFORMATION: Screening. Asymptomatic. COMPARISON: Mammography: 04/09/2022, 04/02/2021, 08/01/2019, 02/27/2019, 02/04/2018 TECHNIQUE: Digital breast tomosynthesis is performed in both the craniocaudal and mediolateral oblique views along with computer-aided detection (CAD). Synthesized 2D images are generated from the tomosynthesis. FINDINGS: There are scattered areas of fibroglandular density (ACR BI-RADS breast composition Category b). There are no suspicious masses, suspicious grouped calcifications, or areas of architectural distortion in either breast. The parenchymal pattern is stable from prior exams. MM/MM tomosynthesis screening BI IMPRESSION: No mammographic evidence of malignancy. ASSESSMENT: BI-RADS BI-RADS 1 - Negative RECOMMENDATION: Routine annual mammography screening. 1 year F/U This examination should not preclude the clinical evaluation of a suspicious palpable abnormality. This patient's information was entered into a reminder system with a target due date for their next mammogram. Dictated By: Alverto Carrington MD Signed By: <Electronically signed by Alverto Carrington MD in OV> 05/05/23 0825 DD/ 1205 TD/TT: Tire Trucker: Gregg Name IMG BI PROCEDURES Final Result * Hm Colonoscopy (08/08/2020 1:49 PM EDT) Colonoscopy Normal Normal Narrative Anastasia Dykes - 08/08/2020 1:49 PM EDT Recommended 5 year follow up Historical Provider HEALTH MAINTENANCE Final Result * (ABNORMAL) LIPID PANEL, STANDARD (05/20/2020 9:32 AM EDT) Chol/HDLC Ratio 2.8 <5.0 (calc) [facility] Cholesterol, Total 193 <200 mg/dL [facility] HDL Cholesterol 68 > OR = 50 mg/dL [facility] LDL Cholesterol 108(H) mg/dL (calc) [facility] Comment: Reference range: <100 ?? Desirable range <100 mg/dL for primary prevention; ?? <70 mg/dL for patients with CHD or diabetic patients ?? with > or = 2 CHD risk factors. ?? LDL-C is now calculated using the Dustin ?? calculation, which is a validated novel method providing ?? better accuracy than the Friedewald equation in the ?? estimation of LDL-C. ?? Darek SS et al. BOO. 2013;310(19): 0811-9208 ?? (http://education.[employer].NameMedia/faq/HXY292) Non-HDL Cholesterol 125 <130 mg/dL (calc) [facility] Comment: For patients with diabetes plus 1 major ASCVD risk ?? factor, treating to a non-HDL-C goal of <100 mg/dL ?? (LDL-C of <70 mg/dL) is considered a therapeutic ?? option. Triglycerides 80 <150 mg/dL [facility] 05/20/2020 9:32 AM EDT us Gregg Gandhi MD LAB BLOOD ORDERABLES Final Resul t [facility] [address] from Last 3 Months or Most Recently Relevant to Health Maintenance [place] [address] [place] [address] STANDARD DENTAL - [facility] Care Teams Honeycomb Decapper Relationship Specialty Start Date End Date Name, MD Gregg [address] [place] [address] PCP - General Family Medicine 04/16/15
--- OUTSIDE RECORDS SUMMARY | 2024-05-11 19:02 | XMS_ITS | Encounter Summary ---
Author Organization [employer] Address [address] [facility] [address] [place] [address] Care Team Providers Care Processing Clerk Name Role Phone Name, Gregg DIAMOND Primary Care Provider [phone] Reason for Visit * Reason Onset Date Comments broken tooth to hold partial 02/28/2024 Encounter Details Date Type Department Care Team (Late st Contact Info) Description 02/28/2024 Telephone [facility] ADULT DENTAL [address] [place] [address] Ayan Calvin, DMD [address] [place] [address] broken tooth to hold partial Social History Tobacco Use Types Packs/Day Years [...] * Telephone Encounter - Nataliia Jalloh - 02/28/2024 8:05 AM EST Patient seeking appt . Tooth that holds partial broke. Pain only when eating. Please reach out to patient for scheduling. documented in this encounter Plan of Treatment Upcoming Encounters Date Type Department Care Team (Late st Contact Info) Description 05/12/2024 9:00 AM EDT Office Visit [facility] ADULT DENTAL [address] [place] [address] Ayan Calvin, RAMIREZ [address] [place] [address] 07/17/2024 11:30 AM EDT Office Visit [facility] MEDICINE [address] [place] [address] Name, MD Gregg [address] [place] [address] 09/21/2024 8:00 AM EDT Office Visit [facility] ADULT DENTAL [address] [place] [address] Faye Mi documented as of this encounter Visit Diagnoses Not on filedocumented in this encounter Additional Health Concerns Assessment Noted Time PHQ-9 Depression Total Score: 0 09/01/19 24 10:42 AM EDT documented as of this encounter Care Teams Processing Clerk Relationship Specialty Start Date End Date Name, MD Gregg [address] [place] [address] PCP - General Family Medicine 04/16/15 documented as of this encounter
--- OUTSIDE RECORDS SUMMARY | 2024-05-11 19:02 | XMS_ITS | Encounter Summary ---
Author Organization [employer] Address [address] [facility]t [place] [address] Care Team Providers Care Credit Card Interviewer Name Role Phone Name, Gregg DIAMOND Primary Care Provider [phone] Reason for Visit * Reason Comments Med Refill Encounter Details Date Type Department Care Team ([facility] st Contact Info) Description 11/16/2023 Refill [facility] [address] [place], [place] [phone] Yennifer Ramirez MD [address] [place] [address] Flu-like symptoms Social History Tobacco Use Types Packs/Day Years [...] Description 05/12/2024 9:00 AM EDT Office Visit [facility] ADULT DENTAL [address] [place] [address] Ayan Calvin DMD [address] [place] [address] 07/17/2024 11:30 AM EDT Office Visit [facility] [address] [place] [address] Name, MD Gregg [address] [place] [address] 09/21/2024 8:00 AM EDT Office Visit [facility]ULT D[facility] [address] [place] [address] Faye Mi documented as of this encounter Visit Diagnoses Diagnosis Flu-like symptoms documented in this encounter Additional Health Concerns Assessment Noted Time PHQ-9 Depression Total Score: 0 09/01/19 24 10:42 AM EDT documented as of this encounter Care Teams Credit Card Interviewer Relationship Specialty Start Date End Date Name, MD Gregg [address] [place] [address] PCP - General Family Medicine 04/16/15 documented as of this encounter
--- OUTSIDE RECORDS SUMMARY | 2024-05-11 19:02 | XMS_ITS | Encounter Summary ---
Author Organization [employer] Address [address] [facility] 7t [place] [address] Care Team Providers Care Master Brewer Name Role Phone Name, Gregg DIAMOND Primary Care Provider [phone] Reason for Visit * Reason Comments Med Refill Encounter Details Date Type Department Care Team (Late Contact Info) Description 03/04/2022 Refill [facility] MEDICINE [address] [place] [address] Name, MD Gregg [address] [place] [address] Osteoporosis, unspecified osteoporosis type, unspecified pathological fracture presence Social History Tobacco Use Types Packs/Day Years Used Date Smoking Tobacco: Former Cigarettes Passive Smoke Exposure: Past Smokeless Tobacco: Never Alcohol Use Standard Drinks/Week Comments Not Currently 0 (1 standard drink = 0.6 oz pur e alcohol) Depression Answer Date Recorded Patient Health Questionnaire-9 Score 7 03/04/2022 Depression Answer Date Recorded Patient Health Questionnaire-2 Score 2 03/04/2022 Comments Unknown Sex and Gender Information Value Date Recorded Sex Assigned at Female 12/15/2021 10:22 AM EDT Legal Sex Female 10:22 AM EDT Gender Identity Female 12/15/2021 10:22 AM EDT Sexual Orientation Straight 12/15/2021 10 :22 AM EDT COVID-19 Exposure Response Date Recorded In the last 10 days, have yo u been in contact with someone who was confirmed or suspected to have Coronavirus/COVID-19? No / Unsure 03/04/2022 9:05 AM EST documented as of this encounter Plan of Treatment Upcoming Encounters Date Type Department Care Team (Late Contact Info) Description 05/12/2024 9:00 AM EDT Office Visit [facility] ADULT DENTAL [address] [place] [address] Ayan Calvin, RAMIREZ [address] [place] [address] 07/17/2024 11:30 AM EDT Office Visit [facility] MEDICINE [address] [place] [address] Name, MD Gregg [address] [place] [address] 09/21/2024 8:00 AM EDT Office Visit [facility] ADULT DENTAL [address] [place] [address] Faye Mi documented as of this encounter Visit Diagnoses Diagnosis Osteoporosis, unspecified osteoporosis type, unspecified pathological fracture presence documented in this encounter Additional Health Concerns Assessment Noted Time PHQ-9 Depression Total Score: 7 03/04/19 23 9:17 AM EST documented as of this encounter Care Teams Master Brewer Relationship Specialty Start Date End Date Name, MD Gregg [address] [place] [address] PCP - General Family Medicine 04/16/15 documented as of this encounter
--- OUTSIDE RECORDS SUMMARY | 2024-05-11 19:02 | XMS_ITS | Encounter Summary ---
Author Organization [employer] Address [address] [address] 7[address] [place] [address] Care Team Providers Care Airbrush Artist Technical Name Role Phone Name, Gregg DIAMOND Primary Care Provider [phone] Reason for Visit * Reason Onset Date Comments PT1 02/25/2023 Encounter Details Date Type Department Care Team ([facility] st Contact Info) Description 02/25/2023 Telephone [facility] [address] [place] [address] Name, MD Gregg [address] [place] [address] PT1 Social History Tobacco Use Types Packs/Day [...] encounter Miscellaneous Notes * Telephone Encounter - Victoria Paulino - 03/02/2023 10:32 AM EST [facility] - Valid through 06/2023 [facility] - valid through 06/2023 [facility] neurology - [id number] authorized Dr Chakraborty - [id number] pending [facility]urg - [id number] authorized [facility] - [id number] authorized Renal & Trans - [id number] authorized ENT - [id number] pending [facility] medical office - [id number] pending * Telephone Encounter - Cameron Su - 02/25/2023 4:29 PM EST PT1 needed Date: N/A Time: N/A Visits: 2 or 3 monthly Address: [address] [facility] Facility: [facility] Cardiovascular Wheel Chair: No Microwave Remote Sensing Scientist Needed: No PT1 needed Date: N/A Time: N/A Visits: 2 or 3 Monthly Address: [address] [facility] Facility: [facility] Neurology Wheel No Microwave Remote Sensing Scientist Needed: No PT1 needed Date: N/A Time: N/A Visits: 2 or 3 Monthly Address: [address] [facility] Facility: Dr Chakraborty Wheel Chair: No Microwave Remote Sensing Scientist Needed: No PT1 needed Date: N/A Time: N/A Visits: 2 or 3 Monthly Address: [address] [place] [address] dr LambertRafy [place] Facility: [facility] General Surgery Wheel Chair: No Microwave Remote Sensing Scientist Needed: No PT1 needed Date: N/A Time: N/A Visits: 2 or 3 Monthly Address: [address] [place] [address] Facility: [facility] Wheel Chair: No Microwave Remote Sensing Scientist Needed: No PT1 needed Date: N/A Time: N/A Visits: 2 or 3 monthly Address: [address] [facility] Facility: [facility] Wheel Chair: No Microwave Remote Sensing Scientist Needed: No PT1 needed Date: N/A Time: N/A Visits: 2 or 3 monthly Address: [address] [facility] Facility: [facility] Wheel Chair: No Microwave Remote Sensing Scientist Needed: No PT1 needed Date: N/A Time: N/A Visits: 2 or 3 Monthly Address: [address] [facility] [address] [place] DESOUZA Facility: [facility] medical Office Wheel Chair: No Microwave Remote Sensing Scientist Needed: No PT1 needed Date: N/A Time: N/A Visits: 2 or 3 Monthly Address: [address] [place] [address] Facility: [facility] Wheel Chair: No Microwave Remote Sensing Scientist Needed: No documented in this encounter Plan of Treatment Upcoming Encounters Date Type Department Care Team (Late st Contact Info) Description 05/12/2024 9:00 AM EDT Office Visit [facility] ADULT DENTAL [address] [place] [address] Ayan Calvin, RAMIREZ [address] [place] [address] 07/17/2024 11:30 AM EDT Office Visit [facility] MEDICINE [address] [place] [address] Name, MD Gregg [address] [place] [address] 09/21/2024 8:00 AM EDT Office Visit [facility] ADULT DENTAL [address] [place] [address] Faye Mi documented as of this encounter Visit Diagnoses Not on filedocumented in this encounter Additional Health Concerns Assessment Noted Time PHQ-9 Depression Total Score: 7 03/04/19 23 9:17 AM EST documented as of this encounter Care Teams Airbrush Artist Technical Relationship Specialty Start Date End Date Name, MD Gregg [address] [place] [address] PCP - General Family Medicine 04/16/15 documented as of this encounter
--- OUTSIDE RECORDS SUMMARY | 2024-05-11 19:02 | XMS_ITS | Encounter Summary ---
Author Organization [employer] [facility] Address [address] [facility] 7t [place] [address] Care Team Providers Care Mmi Teacher Name Role Phone Name, Gregg DIAMOND Primary Care Provider [phone] Encounter Details Date Type Department Care Team (Late st Contact Info) Description 01/14/2022 Abstract [facility] ADULT [facility] [address] [place] [address] Dental, Provider, DDS Social History Tobacco Use [...] 05/12/2024 9:00 AM EDT Office Visit [facility] [address] [place] [address] Ayan Calvin DMD [address] [place] [address] 07/17/2024 11:30 AM EDT Office Visit [facility] MEDICINE [address] [place] [address] Gregg Gandhi MD [address] [place] [address] 09/21/2024 8:00 AM EDT Office Visit [facility] ADULT D[facility] [address] [place] [address] Mi, Faye documented as of this encounter Procedures Procedure Name Priority Date/Time Associated Diagnosis Comments 11 CROWN - PORCELAIN/CERAMIC Routine 12/11/2021 12:00 AM EDT 11 PREFABRICATED POST AND CORE IN ADDITION TO CROWN Routine 11/28/2021 12:00 AM EDT 11 ROOT CANAL Routine 11/07/2021 12:00 AM EDT 2,3,5,8,9,10,12,15 MAXILLARY PARTIAL DENTURE - RESIN BASE (INCLUDING, RETENTIVE/CLASPING MATERIALS, RESTS, AND TEETH) Routine 12/11/2019 12:00 AM EDT 18,19,20,23,24,25,26,29,3 0 MANDIBULAR PARTIAL DENTURE - RESIN BASE (INCLUDING, RETENTIVE/CLASPING MATERIALS, RESTS, AND TEETH) Routine 12/11/2019 12:00 AM EDT 27 DFL RESIN-BASED COMPOSITE - 3 SURF, ANTERIOR Routine 09/07/2014 12:00 AM EDT 14 LO AMALGAM FILLING Routine 08/26/2012 12:00 AM EDT 13 O AMALGAM FILLING Routine 01/06/2012 12:00 AM EST 31 O AMALGAM FILLING Routine 01/06/2012 12:00 AM EST documented in this encounter Visit Diagnoses Not on filedocumented in this encounter Care Teams Mmi Teacher Relationship Specialty Start Date End Date Name, MD Gregg [address] [place] [address] PCP - General Family Medicine 04/16/15 documented as of this encounter
--- OUTSIDE RECORDS SUMMARY | 2024-05-11 19:02 | XMS_ITS | Encounter Summary ---
Author Organization [employer] [facility] Address [address] [facility] 7t [place] [address] Care Team Providers Care Ed Manager Name Role Phone Name, Gregg DIAMOND Primary Care Provider [phone] Encounter Details Date Type Department Care Team (Latest Contact Info) Description 12/25/2019 Abstract [facility] Dental, Provider, DDS Social History Tobacco [...] Description 05/12/2024 9:00 AM EDT Office Visit [facility]ULT [facility] [address] [place] [address] Ayan Calvin DMD [address] [place] [address] 07/17/2024 11:30 AM EDT Office Visit [facility] [address] [place] [address] Name, MD Gregg [address] [place] [address] 09/21/2024 8:00 AM EDT Office Visit [facility] ADULT D[facility] [address] [place] [address] Faye Mi documented as of this encounter Visit Diagnoses Not on filedocumented in this encounter Care Teams Ed Manager Relationship Specialty Start Date End Date Name, MD Gregg [address] [place] [address] PCP - General Family Medicine 04/16/15 documented as of this encounter
--- OUTSIDE RECORDS SUMMARY | 2024-05-11 19:02 | XMS_ITS | Encounter Summary ---
Author Organization [employer] Address [address] [facility] 7t [place] [address] Care Team Providers Care Workforce Investment Act Career Manager Name Role Phone Name, Gregg DIAMOND Primary Care Provider [phone] Reason for Visit * Reason Onset Date Comments Durable Medical Equipment 05/05/2024 Encounter Details Date Type Department Care Team (Late st Contact Info) Description 05/05/2024 Telephone [facility] MEDICINE [address] [place] [address] Name, MD Gregg [address] [place] [address] Durable Medical Equipment Social History Tobacco Use [...] Telephone Encounter - Funmi Mcgee RN - 05/05/2024 3:42 PM EDT During WANDA call to patient for ER follow up pt requested Rx for Wedge Pillow as this was used at [facility] and provided patient good relief of groin pain when laying down. Please review and advise PA specialist if agreeable. documented in this encounter Plan of Treatment Upcoming Encounters Date Type Department Care Team (Late st Contact Info) Description 05/12/2024 9:00 AM EDT Office Visit [facility] ADULT DENTAL [address] [place] [address] Ayan Calvin, RAMIREZ [address] [place] [address] 07/17/2024 11:30 AM EDT Office Visit [facility] MEDICINE [address] [place] [address] Name, MD Gregg [address] [place] [address] 09/21/2024 8:00 AM EDT Office Visit [facility] ADULT DENTAL [address] [place] [address] Faye Mi documented as of this encounter Visit Diagnoses Not on filedocumented in this encounter Additional Health Concerns Assessment Noted Time PHQ-9 Depression Total Score: 0 09/01/19 24 10:42 AM EDT documented as of this encounter Care Teams Workforce Investment Act Career Manager Relationship Specialty Start Date End Date Name, MD Gregg [address] [place] [address] PCP - General Family Medicine 04/16/15 documented as of this encounter
--- OUTSIDE RECORDS SUMMARY | 2024-05-11 19:03 | XMS_ITS | Encounter Summary ---
Author Organization [employer] Address [address] [facility] 7t [place] [address] Care Team Providers Care Sheep Killer Name Role Phone Name, Gregg DIAMOND Primary Care Provider [phone] Encounter Details Date Type Department Care Team (Late st Contact Info) Description 07/20/2022 Abstract [facility] MEDICINE [address] [place] [address] Name, MD Gregg [address] [place] [address] Social History Tobacco Use Types Packs/Day Years [...] Description 05/12/2024 9:00 AM EDT Office Visit [facility] ADULT DENTAL [address] [place] [address] Ayan Calvin DMD [address] [place] [address] 07/17/2024 11:30 AM EDT Office Visit [facility] MEDICINE [address] [place] [address] Name, MD Gregg [address] [place] [address] 09/21/2024 8:00 AM EDT Office Visit [facility] ADULT DENTAL [address] [place] [address] Faye Mi documented as of this encounter Procedures Procedure Name Priority Date/Time Associated Diagnosis Comments COLONOSCOPY Routine 08/08/2020 1:49 PM EDT documented in this encounter Results * Colonoscopy (08/08/2020 1:49 PM EDT) Colonoscopy Normal Normal Narrative Anastasia Dykes - 08/08/2020 1:49 PM EDT Recommended 5 year follow up us Historical Provider HEALTH MAINTENANCE Final Result documented in this encounter Visit Diagnoses Not on filedocumented in this encounter Additional Health Concerns Assessment Noted Time PHQ-9 Depression Total Score: 7 03/04/19 23 9:17 AM EST documented as of this encounter Care Teams Sheep Killer Relationship Specialty Start Date End Date Name, MD Gregg [facility] [place] [address] PCP - General Family Medicine 04/16/15 documented as of this encounter
--- OUTSIDE RECORDS SUMMARY | 2024-05-11 19:03 | XMS_ITS | Encounter Summary ---
Author Organization [facility] Address [address] [facility] 7t [place] [address] Care Team Providers Care Gse Mechanic Name Role Phone Name, Gregg DIAMOND Primary Care Provider [phone] Reason for Visit * Reason Comments Med Refill Encounter Details Date Type Department Care Team ( Contact Info) Description 10/06/2022 Refill [facility] MED[facility]INE [address] [place], [place] [phone] Name, MD Gregg [address] [place] [address] Osteoporosis, unspecified osteoporosis type, unspecified pathological fracture [...] 05/12/2024 9:00 AM EDT Office Visit [facility] ADULT DENTAL [address] [place], [place] [phone] Ayan Calvin, RAMIREZ [address] [place], [place] [phone] 07/17/2024 11:30 AM EDT Office Visit [facility] MED[facility]INE [address] [place] [address] Name, MD Gregg [address] [place] [address] 09/21/2024 8:00 AM EDT Office Visit [facility] ADULT DENTAL [address] [place] [address] Faye Mi documented as of this encounter Visit Diagnoses Diagnosis Osteoporosis, unspecified osteoporosis type, unspecified pathological fracture presence documented in this encounter Additional Health Concerns Assessment Noted Time PHQ-9 Depression Total Score: 7 03/04/19 23 9:17 AM EST documented as of this encounter Care Teams Gse Mechanic Relationship Specialty Start Date End Date Name, MD Gregg [address] [place] [address] PCP - General Family Medicine 04/16/15 documented as of this encounter
--- OUTSIDE RECORDS SUMMARY | 2024-05-11 19:03 | XMS_ITS | Encounter Summary ---
Author Organization [employer] Address [address] [facility] [address] 7t [place] [address] Care Team Providers Care Wire Stockkeeper Name Role Phone Name, Gregg DIAMOND Primary Care Provider [phone] Reason for Visit * Reason Comments Med Refill Encounter Details Date Type Department Care Team ([facility] st Contact Info) Description 07/13/2023 Refill [facility] [address] [place] [address] Ban Granados FNP 230 [place] [address] Social History Tobacco Use Types Packs/Day Years [...] t he electric, gas, oil or water [employer] threatened to shut off services in your [...] encounter Miscellaneous Notes * Telephone Encounter - Shante Romero - 07/13/2023 3:57 PM EDT Pt came into the [facility] asking for refills on Wegomy meds. She wants Dr. Granados to send the refill in two days to be able to sheepskin pickler in pharmacy. 07/13/23 documented in this encounter Plan of Treatment Upcoming Encounters Date Type Department Care Team (Late st Contact Info) Description 05/12/2024 9:00 AM EDT Office Visit [facility] [address] [place] [address] Ayan Calvin, RAMIREZ [address] [place] [address] 07/17/2024 11:30 AM EDT Office Visit [facility] [address] [place] [address] Name, MD Gregg 230 [place] [address] 09/21/2024 8:00 AM EDT Office Visit [facility] [address] [place] [address] Faye Mi documented as of this encounter Visit Diagnoses Not on filedocumented in this encounter Additional Health Concerns Assessment Noted Time PHQ-9 Depression Total Score: 7 03/04/19 23 9:17 AM EST documented as of this encounter Care Teams Wire Stockkeeper Relationship Specialty Start Date End Date Gregg Gandhi MD [address] [place] [address] PCP - General Family Medicine 04/16/15 documented as of this encounter
--- OUTSIDE RECORDS SUMMARY | 2024-05-11 19:03 | XMS_ITS | Encounter Summary ---
Author Organization [employer] [facility] Address [address] [facility] 7t [place] [address] Care Team Providers Care Watch Supervisor Name Role Phone Name, Gregg DIAMNOD Primary Care Provider [phone] Reason for Visit * Reason Comments Med Refill Encounter Details Date Type Department Care Team ( Contact Info) Description 10/14/2022 Refill [facility] MEDICINE [address] [place], [place] [phone] Name, MD Gregg 230 [place] [address] Osteoporosis, unspecified osteoporosis type, unspecified pathological fracture [...] Description 05/12/2024 9:00 AM EDT Office Visit [facility] ADULT DENTAL [address] [place], [place] [phone] Ayan Calvin, RAMIREZ [address] [place], [place] [phone] 07/17/2024 11:30 AM EDT Office Visit [facility] MEDICINE [address] [place] [address] Name, MD Gregg [address] [place] [address] 09/21/2024 8:00 AM EDT Office Visit [facility] ADULT DENTAL [address] [place] [address] Faye Mi documented as of this encounter Visit Diagnoses Diagnosis Osteoporosis, unspecified osteoporosis type, unspecified pathological fracture presence documented in this encounter Additional Health Concerns Assessment Noted Time PHQ-9 Depression Total Score: 7 03/04/19 23 9:17 AM EST documented as of this encounter Care Teams Watch Supervisor Relationship Specialty Start Date End Date Name, MD Gregg [address] [place] [phone] PCP - General Family Medicine 04/16/15 documented as of this encounter
== END 2024-05-11 15:57 | disposition home or self-care (01) ==
LOC: HO.HOS 15:32
PROVIDERS: PCP Internal Medicine Geriatric Medicine; Visit Provider Physician Assistant
DX: M17.11 Unilateral primary osteoarthritis, right knee (principal); M17.12 Unilateral primary osteoarthritis, left knee
CPT/HCPCS: G2211

== ENCOUNTER 2024-05-24 11:09 | Outpatient (AMB) | payer OTHER, SELFPAY ==
--- NOTE | 2024-05-24 11:25 | MHC.OFFVIS ---
Vital Signs 05/24/24 11:26 Height 5 ft 4 in Weight 178 lb BMI 30.6 BP 119/67 Blood Pressure Location Lt brachial Position Sitting Pulse 87 Pulse Source Pulse Oximeter Pulse Oximetry (%) 99 Oxygen Delivery Method Room Air Intake Visit Reasons: Sciatica, left side Mortgage Loan Underwriter Required: Yes Mortgage Loan Underwriter Services: Mortgage Loan Underwriter Present Mortgage Loan Underwriter Name: Jinny Paulino - Employee Information Interpreted: non-clinical & clinical Allergies nalbuphine [From [facility]] Allergy (Severe, Verified 05/24/24 11:26) Anaphylaxis oxycodone Adverse Reaction (Verified 05/24/24 11:26) itchy tramadol Adverse Reaction (Verified 05/24/24 11:26) itchy Medication List - Last Reconciled 05/24/24 by Jannette Cummings, INSURANCE ADJUSTER acetaminophen (Tylenol) 650 mg (2 x 325 mg) PO Q6H PRN albuterol sulfate 90 mcg/actuation (Ventolin HFA) 2 puffs PO Q6H PRN 30 days albuterol sulfate 2.5 mg (3 mL) inhalation Q4H PRN 30 days alendronate 70 mg PO TU amoxicillin-pot clavulanate 875-125 mg 1 tab PO BID azithromycin For 250 mg dose pack: take 500 mg today (day 1), then 250 mg for 4 days (days 2-5) benzonatate 100 mg PO BID PRN celecoxib (Celebrex) 200 mg PO BID 30 days cetirizine 10 mg PO DAILY PRN cholecalciferol (vitamin D3) 25 mcg PO DAILY cyclobenzaprine 10 mg PO Q8H doxepin 75 mg PO BEDTIME estazolam 3 mg PO BEDTIME fluticasone propion-salmeterol 250-50 mcg/dose (Advair Diskus) 1 inh inhalation BID 30 days ibuprofen 800 mg PO Q8H PRN levothyroxine 100 mcg PO DAILY@0600 lidocaine 5% 1 patch topical DAILY magnesium oxide 400 mg PO DAILY@1200 meclizine (Dramamine Less Drowsy) 25 mg PO TID PRN methocarbamol 1,500 mg (2 x 750 mg) PO QID PRN omeprazole 40 mg PO DAILY@0630 ondansetron 4 mg PO Q6H PRN oxycodone 5 mg PO Q6H PRN perphenazine 4 mg PO BID@1200,2100 polyethylene glycol 3350 (Miralax) 17 grams PO DAILY prednisone 40 mg (2 x 20 mg) PO DAILY 5 days prednisone 40 mg (2 x 20 mg) PO DAILY 5 days pyridoxine (vitamin B6) 200 mg PO DAILY@1200 semaglutide (weight loss) (Wegovy) 1 mg subcut DAILY sucralfate 1 g PO TID PRN venlafaxine mg PO HPI Comments Details: Mag is Taiwanese speaking 63 years old female who presents in my office with complains on pain in the lower back with radiation of the pain into bilateral lower extremities and sensation of the spasticity in bilateral feet and bilateral toes. She reported that because of her pain she can not sleep normally can not do activities of daily living can not take care of herself can not function normally. All positioned she reports aggravate her pain she can not stand she can not sit she can not lie down. She reports lying down aggravates her pain the most. Flexing forward and flexing backwards aggravate her pain however flexing forward aggravate her pain more than flexing backwards. She reports that she fell from the ladder on for back in December of 2023, however her pain did not start then. In May 05, 2024 she reported severe pain and she went to emergency room. She admits that heat alleviates her pain and ice application make her pain worse. She was prescribed gabapentin and cyclobenzaprine to treat her pain. She is also taking Tylenol. She reports minimal help with this medications. She can not take NSAIDs because she had gastric bypass. She never had any images of her lumbar spine. She never had physical therapy. She never had chiropractic manipulations. Long time ago in her [facility] [place] patient had some injections in her back but the she admits that the pain she had at that time does not resemble the pain she has now. Her past medical history significant for hypo thyroidism pseudotumor cerebri she is under care of Dr. Banda from [facility]. Past surgical history significant for history of gastric bypass. She denies smoking cigarettes she denies drinking alcohol she denies drinking soda and caffeinated beverages and she denies recreational drugs. [facility] Medical History Bronchitis Somnolence, daytime Obesity (BMI 30-39.9) Nausea & vomiting Migraine Syncope Pseudotumor cerebri Kidney calculi Crystal arthropathy Right shoulder injury Kidney tumor COVID-19 vaccine administered Thyroid disease Colon polyp Diverticulosis of colon Bronchial asthma Acid reflux Surgical History Status post excision of lipoma (09/10/23) History of esophagogastroduodenoscopy (EGD) History of surgery on wrist History of hysterectomy Previous section Hx laparoscopic cholecystectomy Hx of gastric bypass (03/12/15) Hx of colonoscopy Family History Father Heart disease History of open heart surgery Mother Heart disease Social History Household Members: None Household Members Other:: alone Are you a primary family day care provider to a significant other at home: No Do you presently have visiting nurse or other home services: No Alcohol intake: never Patient Tobacco Use Status: Former Tobacco user Tobacco use type: Cigarette service: No Current occupational status: disabled Review of Systems Const All systems reviewed & are unremarkable except as noted in HPI and below Reports no additional complaints Eyes Reports no additional complaints ENT Reports Normal hearing present Card Reports no additional complaints Resp Reports no additional complaints GI Reports no additional complaints Reports no additional complaints Musc Reports as per HPI Neuro Reports no additional complaints, Reports Normal hearing present, Denies Abnormal speech present, Denies confusion and Denies Sensory deficit (Neuro) Psych Reports no additional complaints and Denies confusion Physical Exam Vital Signs: Last Vital Signs Pulse 87 05/24/24 11:26 BP 119/67 05/24/24 11:26 Pulse Ox 99 05/24/24 11:26 Oxygen Delivery Method Room Air 05/24/24 11:26 BMI result Body Mass Index 30.6 Const General: no acute distress; No confusion Orientation/consciousness: patient oriented x3 and No confusion Eyes General: appearance normal, both eyes and all related structures Pupils: Equal, round and reactive pupils present EOM: EOMs intact bilaterally Neck Neck: Yes full ROM Chest Chest palpation & inspection: normal inspection of the chest Resp Effort & Inspection: normal respiratory effort, able to speak in complete sentences, normal respiratory pattern, no audible wheezes and no cough Cardio Jugular venous distension: no JVD GI Inspection: Yes normal to inspection Back/Spine/Pelvis Other: Very difficult physical examination. Patient is in severe distress. Any attempt to do provocative maneuver are met with resistance from the patient. She can not tolerate Chapincito test, pelvic compression test, pelvic distraction test, she can not tolerate SLR. Flexing forward aggravates her pain less than flexing backwards. Flexing backwards aggravates pain more. Neuro General: patient oriented x3, gait normal and No confusion Cranial nerves: Yes CN's II-XII intact bilaterally, Yes Equal, round and reactive pupils present, Yes Normal hearing present and Yes Ability to bilaterally elevate shoulders present Speech: No Abnormal speech present Gait exam (Neuro): Normal gait present Motor exam (neuro): 5/5 motor strength present throughout Sensory Exam: No Sensory deficit (Neuro) Extrem General: No pedal edema Psych Speech and movement: Normal speech and movement present Affect: normal affect Attitude: cooperative Thought process: Normal thought process present Thought content: Normal thought content present Insight: Good insight present (Psych) Judgement: Good judgement present (Psych) Assessment & Plan Assessment & Plan (1) Radiculopathy, lumbar region: Code(s): M54.16 - Radiculopathy, lumbar region Category: Medical (2) Disc degeneration, lumbar: Code(s): M51.369 - Other intervertebral disc degeneration, lumbar region without mention of lumbar back pain or lower extremity pain Category: Medical (3) Sacroiliitis: Code(s): M46.1 - Sacroiliitis, not elsewhere classified Category: Medical Plan I will schedule this patient for physical therapy. Because she reports severe pain with radiation into bilateral lower extremities, weakness in bilateral lower extremities and inability to stand on bilateral feet, experiencing severe pain in bilateral feet I will schedule this patient for MRI of the lumbar spine. When she will complete physical therapy and MRI will be ready I will see this patient again. Unfortunately I can not prescribe her NSAIDs because she has had a gastric bypass. Orders: Orders MR lumbar spine wo con Today M46.1 - Sacroiliitis, not elsewhere classified, M51.369 - Other intervertebral disc degeneration, lumbar region without mention of lumbar back pain or lower extremity pain, M54.16 - Radiculopathy, lumbar region PT Evaluation and Treatment Today M46.1 - Sacroiliitis, not elsewhere classified, M51.369 - Other intervertebral disc degeneration, lumbar region without mention of lumbar back pain or lower extremity pain, M54.16 - Radiculopathy, lumbar region Patient Instructions: I here by testify that I spent 45 minutes in conversation with this patient as well as evaluating her prior records and prior diagnostic studies as well as planning her care and organizing this note. lead network architect Mag Paulino who is certified crusher was helping to maintain this conversation in Taiwanese. Coding Level of Care Code New Pt Level 4 (42639) Diagnoses Radiculopathy, lumbar region M54.16 Disc degeneration, lumbar M51.369 Sacroiliitis M46.1
[2024-05-24 11:26] VITALS: BP 119/67; PULSE 87; O2SAT 99; BMI 30.6
--- OUTSIDE RECORDS SUMMARY | 2024-05-24 13:14 | XMS_ITS | Encounter Summary ---
Author Organization [employer] Address [address] 7[address] [place] [address] Care Team Providers Care Ada Accommodation Consultant Name Role Phone Name, Gregg DIAMOND Primary Care Provider [phone] Reason for Visit * Reason Onset Date Comments Request For Order(s) 07/30/2023 Encounter Details Date Type Department Care Team ([facility] st Contact Info) Description 07/30/2023 Telephone [facility] [address] [place], [place] [phone] Name, MD Gregg [address] [place] [address] Request For Order(s) Social History Tobacco Use [...] done. Please clarify Please contact pt at [phone] (No specialist employee labor relations needed) documented in this encounter Plan of Treatment Upcoming Encounters Date Type Department Care Team (Late st Contact Info) Description 05/26/2024 8:30 AM EDT Office Visit [facility] ADULT DENTAL [address] [place] [address] Ayan Calvin DMD 230 [place] [address] 07/17/2024 11:30 AM EDT Office Visit [facility] [address] [place] [address] Name, MD Gregg [address] [place] [address] 09/21/2024 8:00 AM EDT Office Visit [facility]ULT [facility] [address] [place] [address] Faye Mi documented as of this encounter Visit Diagnoses Not on filedocumented in this encounter Additional Health Concerns Assessment Noted Time PHQ-9 Depression Total Score: 7 03/04/19 23 9:17 AM EST documented as of this encounter Care Teams Ada Accommodation Consultant Relationship Specialty Start Date End Date NameGregg MD 230 [place] [address] PCP - General Family Medicine 04/16/15 documented as of this encounter
--- OUTSIDE RECORDS SUMMARY | 2024-05-24 13:14 | XMS_ITS | Encounter Summary ---
Author Organization [employer] Address [address] [facility] [address] 7[address] [place] [address] Care Team Providers Care Farmworker Turkey Farm Name Role Phone Name, Gregg DIAMOND Primary Care Provider [phone] Reason for Visit * Reason Comments Med Refill Encounter Details Date Type Department Care Team ([facility] st Contact Info) Description 02/14/2024 Refill [facility] MEDICINE [address] [place], [place] [phone] Name, MD Gregg [address] [place] [address] Social History Tobacco Use Types Packs/Day Years [...] Description 05/26/2024 8:30 AM EDT Office Visit [facility] ADULT DENTAL [address] [place] [address] Ayan Calvin, RAMIREZ [address] [place] [address] 07/17/2024 11:30 AM EDT Office Visit [facility] MEDICINE [address] [place] [address] Name, MD Gregg [address] [place] [address] 09/21/2024 8:00 AM EDT Office Visit [facility] ADULT DENTAL [address] [place] [address] Faye Mi documented as of this encounter Visit Diagnoses Not on filedocumented in this encounter Additional Health Concerns Assessment Noted Time PHQ-9 Depression Total Score: 0 09/01/19 24 10:42 AM EDT documented as of this encounter Care Teams Farmworker Turkey Farm Relationship Specialty Start Date End Date Name, MD Gregg [address] [place] [address] PCP - General Family Medicine 04/16/15 documented as of this encounter
--- OUTSIDE RECORDS SUMMARY | 2024-05-24 13:14 | XMS_ITS | Encounter Summary ---
Author Organization [employer] Address [address] [facility] [address] 7[address] [place] [address] Care Team Providers Care Underwriting Intern Name Role Phone Name, Gregg DIAMOND Primary Care Provider [phone] Reason for Visit * Reason Onset Date Comments PT1 07/27/2023 Encounter Details Date Type Department Care Team ([facility] st Contact Info) Description 07/27/2023 Telephone [facility] MEDICINE [address] [place] [address] Name, MD Gregg [address] [place] [address] PT1 Social History Tobacco Use Types Packs/Day [...] name: Dr. Carson Smith MD Facility Address: [address] [place] [address] [address], [facility], [address] Escort needed: Y/N: No Do you have a wheelchair: Y/N: No If yes- Manual or electric: Visits: 2-3 Next upcoming appt 08/03/23 documented in this encounter Plan of Treatment Upcoming Encounters Date Type Department Care Team (Late st Contact Info) Description 05/26/2024 8:30 AM EDT Office Visit [facility] ADULT DENTAL [address] [place] [address] Ayan Calvin DMD [address] [place] [address] 07/17/2024 11:30 AM EDT Office Visit [facility] MEDICINE [address] [place] [address] Name, MD Gregg [address] [place], [place] [phone] 09/21/2024 8:00 AM EDT Office Visit [facility] ADULT DENTAL [address] [place] [address] Faye Mi documented as of this encounter Visit Diagnoses Not on filedocumented in this encounter Additional Health Concerns Assessment Noted Time PHQ-9 Depression Total Score: 7 03/04/19 23 9:17 AM EST documented as of this encounter Care Teams Underwriting Intern Relationship Specialty Start Date End Date Name, MD Gregg [address] [place] [address] PCP - General Family Medicine 04/16/15 documented as of this encounter
--- OUTSIDE RECORDS SUMMARY | 2024-05-24 13:14 | XMS_ITS | Encounter Summary ---
Author Organization [employer] Address [address] [address] [facility] [address] 7[address] [place] [address] Care Team Providers Care Project Manager Finance Name Role Phone Name, Gregg DIAMOND Primary Care Provider [phone] Reason for Visit * Reason Comments Med Refill Encounter Details Date Type Department Care Team ([facility] st Contact Info) Description 08/03/2023 Refill [facility] MEDICINE [address] [place], [place] [phone] Name, MD Gregg [address] [place] [address] Social History Tobacco Use Types Packs/Day Years [...] the past 12 months, has t he [employer], [employer], oil or water company threatened to shut [...] Description 05/26/2024 8:30 AM EDT Office Visit [facility] ADULT DENTAL [address] [place] [address] Ayan Calvin DMD [address] [place] [address] 07/17/2024 11:30 AM EDT Office Visit [facility] [address] [place] [address] Name, MD Gregg [address] [place] [address] 09/21/2024 8:00 AM EDT Office Visit [facility] ADULT DENTAL [address] [place] [address] Faye Mi documented as of this encounter Visit Diagnoses Not on filedocumented in this encounter Additional Health Concerns Assessment Noted Time PHQ-9 Depression Total Score: 7 03/04/19 23 9:17 AM EST documented as of this encounter Care Teams Project Manager Finance Relationship Specialty Start Date End Date NameGregg MD [address] [place] [address] PCP - General Family Medicine 04/16/15 documented as of this encounter
--- OUTSIDE RECORDS SUMMARY | 2024-05-24 13:14 | XMS_ITS | Continuity of Care Document ---
Author Organization [facility] Address [address] [place] [address] Care Team Providers Care Oracle Ebs Consultant Name Role Phone HIM CCA OTHER NAME, CUAUHTEMOC Primary Care Provider Assessment Encounter Date Assessment Date Assessment LastModified by Organization Details LastModified Time 05/19/2024 05/19/2024 I provided real -time medical direction via phone for this encounter, and was available for additional phone based assistance as needed. I have reviewed and agree with the Assessment and Plan as documented by the Batteryman. We discussed the diagnostic uncertainty of home visits and the risk associated with this. In this case the patient and I felt this to be an acceptable and reasonable amount of risk given the benefit of avoiding an ED visit. The patient given the opportunity to ask questions. Advised if develops CP/severe SOB/turning blue/uncontrolle d n/v/d /AMS/ syncope/ hi fever /loss of bowel or bladder control or unbearable pain or inability to ambulate to call 911- she verbalized understanding of instructions [email or web address] Not available 05/19/2024 13:50:42 Plan of Treatment Reminders Order Date Submit Date Provider Last Modified By Organization Details Last Modified Time Details Appointments None record ed. Lab None record ed. Referral None record ed. Procedures None record ed. Surgeries None record ed. Imaging None record ed. Medication Orders None record ed. Patient TargetsNo targets recorded. Patient InstructionsNo instructions recorded. Reason for Referral None Reported. Medical Equipment None Reported. Allergies Allergen ID Allergen Name Allergen Category Reaction Reaction Severity Criticality Documentation Date Start Date Code Code System Note Provider Name and Address Organization Details Recorded Time 49176 Nubain medicatio n Not available Not available Not available 05/19/2024 7550 RxNorm Christina Ashford MD [address] [facility],[address], [place], [address] , [facility] 13:03:23 47648 ketorolac medicatio n vomiting Not available Not available 05/19/2024 03992 RxNorm Christina Ashford MD [address] [facility],[address], [place], [address] , [facility] 13:03:50 Medications Name Sig Start Date Stop Date Status Note LastModified by Organization Details LastModified Time medbox status USE DIRECTED active Not Available Not Available No t Available amoxicillin 500 mg capsule TAKE 1 CAPSULE BY MOUTH EVERY 8 HOURS FOR 10 DAYS active Not Available Not Available No t Available hydrocortiso ne 0.5 % topical cream APPLY TOPICALLY TO THE AFFECTED AREA(S) TWICE DAILY active Not Available Not Available Not Available estazolam 2 mg tablet TAKE 1 TABLET BY MOUTH AT BEDTIME active Not Available Not Available No t Available fluticasone 250 mcg-salmeter ol 50 mcg/dose blistr powdr for inhalation INHALE 1 PUFF BY MOUTH TWICE DAILY FOR ASTHMA RINSE MOUTH AFTER USING. active Not Available Not Available No t Available acetaminophe n 325 mg tablet TAKE 2 TABLETS BY MOUTH EVERY 6 HOURS FOR 7 DAYS active Not Available Not Available No t Available estazolam 1 mg tablet TAKE 1 TABLET BY MOUTH AT BEDTIME active Not Available Not Available No t Available cetirizine 10 mg tablet TAKE 1 TABLET BY MOUTH EVERY DAY NEEDED FOR ALLERGIES active Not Available Not Available No t Available azithromycin 250 mg tablet TAKE 2 TABLETS BY MOUTH ON DAY 1, THEN TAKE 1 TABLET DAILY ON DAYS 2-5 active Not Available Not Available No t Available ibuprofen 800 mg tablet TAKE 1 TABLET BY MOUTH EVERY 8 HOURS NEEDED FOR PAIN active Not Available Not Available No t Available sucralfate 1 gram tablet TAKE 1 TABLET BY MOUTH THREE TIMES DAILY NEEDED FOR FOR PAIN ABDOMINAL active Not Available Not Available No t Available venlafaxine 25 mg tablet TAKE 1 TABLET BY MOUTH EVERYDAY AT NOON active Not Available Not Available No t Available ondansetron HCl 4 mg tablet TAKE 1 TABLET BY MOUTH EVERY DAY NEEDED FOR NAUSEA AND VOMITING active Not Available Not Available No t Available prednisone 20 mg tablet TAKE 2 TABLETS BY MOUTH EVERY DAY FOR 5 DAYS active Not Available Not Available No t Available alendronate 70 mg tablet take 1 tablet by mouth once a week with 6 to 8 oz of water 30 min before first food of day. do not lie down for 30 minutes active Not Available Not Available No t Available doxepin 75 mg capsule TAKE 1 CAPSULE BY MOUTH AT BEDTIME active Not Available Not Available No t Available metronidazol e 500 mg tablet TAKE 1 TABLET BY MOUTH THREE TIMES DAILY active Not Available Not Available Not Available phentermine 37.5 mg tablet TAKE 1 TABLET BY MOUTH EVERY MORNING BEFORE BREAKFAST active Not Available Not Available No t Available omeprazole 40 mg capsule,eliana yed release TAKE 1 CAPSULE BY MOUTH EVERY MORNING BEFORE MEALS DO NOT BREAK, CRUSH, DISSOLVE OR CHEW active Not Available Not Available No t Available aspirin 81 mg tablet,delay ed release TAKE 1 TABLET BY MOUTH AT BEDTIME active Not Available Not Available No t Available acetaminophe n 500 mg tablet TAKE 2 TABLETS BY MOUTH EVERY 8 HOURS NEEDED FOR MILD PAIN active Not Available Not Available No t Available vancomycin 125 mg capsule TOME 1 C PSULA POR V A ORAL CUATRO VECES AL D A POR 10 D active Not Available Not Available No t Available acetaminophe n ER 650 mg tablet,exten ded release TAKE 1 TABLET BY MOUTH EVERY 8 HOURS NEEDED FOR PAIN FOR UP TO 10 DAYS. DO NOT BREAK, CRUSH, DISSOLVE OR CHEW. active Not Available Not Available No t Available levothyroxin e 100 mcg tablet TAKE 1 TABLET BY MOUTH EVERY MORNING active Not Available Not Available No t Available magnesium oxide 400 mg (241.3 mg magnesium) tablet TAKE 1 TABLET BY MOUTH AT NOON WITH FOOD active Not Available Not Available No t Available methocarbamo l 750 mg tablet TAKE 2 TABLETS BY MOUTH FOUR TIMES DAILY NEEDED FOR PAIN active Not Available Not Available No t Available meclizine 25 mg tablet TAKE 1 TABLET BY MOUTH TWICE DAILY NEEDED active Not Available Not Available No t Available oseltamivir 75 mg capsule TAKE 1 CAPSULE BY MOUTH TWICE DAILY FOR 5 DAYS active Not Available Not Available No t Available lidocaine 5 % topical patch APPLY 1 PATCH TOPICALLY TO SKIN, LEAVE ON FOR 12 HOURS AND OFF FOR 12 HOURS DIRECTED active Not Available Not Available No t Available perphenazine 4 mg tablet TAKE 1 TABLET BY MOUTH TWICE DAILY AT NOON AND IN THE EVENING active Not Available Not Available Not Available Advair Diskus 500 mcg-50 mcg/dose powder for inhalation INHALE 1 PUFF TWICE DAILY. RINSE MOUTH AFTER USING. (for asthma) active Not Available Not Available No t Available docusate sodium 100 mg capsule TAKE 1 CAPSULE BY MOUTH EVERY DAY active Not Available Not Available No t Available pyridoxine (vitamin B6) 100 mg tablet TAKE 2 TABLETS BY MOUTH ONCE DAILY AT NOON active Not Available Not Available No t Available gabapentin 100 mg capsule TAKE 1 CAPSULE BY MOUTH THREE TIMES DAILY active Not Available Not Available Not Available polyethylene glycol 3350 17 gram/dose oral powder TAKE 17 GM MIXED IN 8 OUNCES OF WATER ONCE DAILY active Not Available Not Available No t Available levofloxacin 500 mg tablet TAKE 1 TABLET BY MOUTH EVERY DAY active Not Available Not Available No t Available ipratropium bromide 42 mcg (0.06 %) nasal spray USE 2 SPRAYS IN EACH NOSTRIL TWICE DAILY NEEDED FOR ALLERGIES OR RHINITIS active Not Available Not Available Not Available morphine 15 mg immediate release tablet TAKE 1 TABLET BY MOUTH TWICE DAILY NEEDED FOR PAIN active Not Available Not Available No t Available ondansetron 4 mg disintegrati ng tablet DISSOLVE 1 TABLET ENCIMA DE LENGUA EVERY 6 HOURS NEEDED FOR NAUSEA AND VOMITING active Not Available Not Available No t Available Ventolin HFA 90 mcg/actuatio n aerosol inhaler INHALE 2 PUFFS BY MOUTH EVERY 6 HOURS NEEDED FOR WHEEZING active Not Available Not Available No t Available chlorhexidin e gluconate 0.12 % mouthwash SWISH 15 ML IN THE MOUTH OR THROAT FOR 30 SECONDS THEN SPIT OUT IN THE THREE TIMES DAILY IN THE MORNING, AT NOON, AND AT BEDTIME FOR UP TO 5 DAYS active Not Available Not Available No t Available cholecalcife rol (vitamin D3) 25 mcg (1,000 unit) tablet TAKE 1 TABLET BY MOUTH EVERYDAY AT NOON active Not Available Not Available No t Available hydrochlorot hiazide 12.5 mg tablet TAKE 1 TABLET BY MOUTH EVERYDAY AT NOON active Not Available Not Available No t Available diclofenac 1 % topical gel APPLY 2 GRAMS TOPICALLY TO AFFECTED AREA(S) FOUR TIMES DAILY active Not Available Not Available No t Available Banophen 50 mg capsule TOME 1 C PSULA POR V A ORAL CADA OCHO HORAS CUANDO SEA NECESARIO FOR ITCHING active Not Available Not Available Not Available Asmanex HFA 200 mcg/actuatio n aerosol inhaler INHALE 1 PUFF BY MOUTH TWICE DAILY. RINSE MOUTH AFTER USING. active Not Available Not Available No t Available Wegovy 1.7 mg/0.75 mL subcutaneous pen injector INJECT ONE PEN (=1.7MG) SUBCUTANEOU SLY ONCE A WEEK DIRECTED active Not Available Not Available No t Available Wegovy 1 mg/0.5 mL subcutaneous pen injector INJECT ONE PEN (=1MG) SUBCUTANEOU SLY ONCE A WEEK DIRECTED active Not Available Not Available No t Available Wegovy 0.25 mg/0.5 mL subcutaneous pen injector INJECT 0.25mg (=1 PEN) SUBCUTANEOU SLY ONCE PER WEEK ON THE ON THE SAME DAY active Not Available Not Available No t Available Wegovy 0.5 mg/0.5 mL subcutaneous pen injector INJECT ONE PEN (=0.5MG) SUBCUTANEOU SLY ONCE A WEEK DIRECTED active Not Available Not Available No t Available Vitals Date Recorded Body temperature Heart rate Body weight Body height Oxygen saturation Oxygen saturation in Arterial blood by Pulse oximetry Respiratory rate Systolic blood pressure Diastolic blood pressure Provider Name and Address Organization Details Last Updated DateTime 5 97.6 [degF] 96 /min 56376.1 92 g 160.02 cm 97 % 97 % 19 /min 106 mm[Hg] 72 mm[Hg] Not Available [facility] - production 5 12:56:43 Social History None recorded. Functional Status None recorded. Mental Status None recorded. Family History Nothing Reported. Medical History No medical history recorded. Gynecological HistoryNo gynecological history recorded. Obstetrics History GPAL:G 0 P 0 0 0 0 Past Encounters Encounter ID Performer Location Encounter Start Date Encounter Closed Date Diagnosis/Indication Diagnosis SNOMED-CT Code Diagnosis ICD10 Code Diagnosis Note [id number] Cody Spicer MD [facility] [address] [place] [id number] 05/04/2024 15:18:09 05/04/2024 20:57:19 Abdominal pain 19058318 R10.9 [id number] Christina Ashford MD [facility] [address] [place] [phone] 05/19/2024 12:56:41 05/19/2024 14:17:51 Osteoarthritis of multiple joints 158552903 M15.9 advised ice / wrapped in a towel alternatin g w/ gentle heat q 3-4H w/a to affected areas/sugg ested lidocaine patches which she apparently already has. Patient is already taking Tylenol 500 mg 2 capsules every 8 hours which is maximum dose for her weight. She is also on celecoxib. I suggested she discuss with her PCP the sohail story of increasing her gabapentin dose.She has oxycodone but does not take it because she does not like how it makes her feel Chronic pain syndrome 37 [id number] G89.4 Explained to patient we cannot offer controlled substances through this program hiram bolden and since she states she cannot take ketorolac that she gets severe nausea and vomiting even when administer ed parenteral ly and she is already taking maximum dose Tylenol 1 g 3 times a day, we have really nothing else to offer her for pain-she verbalized understand ing. Advise close follow-up with her PCP and pain management and reviewed red flags Health Concerns Section Related Observation LastModified by Organization Detai ls LastModified Time None Recorded Concern Status LastModified by Organization Details LastModified Time None Recorded Payers Encounter Date Sequence Insurance Name Policy Number Policy Schrader Covered Member ID Schrader Member ID Guarantor Name 05/19/2024 1 [facility] - DOS ON OR AFTER 2022 - DUAL ELIGIBLE - LONGTERM OPTIONS AND ONE CARE (MEDICARE REPLACEMENT/ADV ANTAGE - HMO) Mag Ayala [id number] Mag Ayala Notes Date Note Type Note Provider Name and Address Organization Details Recorded Time 05/19/2024 text/html CRC Nurse Triage Notes (Melanie Grubbs): Reason For Request: Patient has Knee, leg and groin pain. Denies: Falls with head strike and LOC Falls from a standing position, no LOC, patient is amnestic to the event Falls with isolated injury and deformity noted to limb Falls with inability to move post fall Cool extremities after fall or injury Chief Complaints: Extremity Pain PMH: Anxiety Disorder, Asthma, Chronic Pain, Depression, Osteoporosis, Hypothyroidism, Gastroesophageal Reflux Disease (GERD), Sleep Apnea, Inflammatory Bowel Disease (Crohn's Disease, Ulcerative Colitis), Cancer PMH Reviewed at 05/19/2024: Allergies Reviewed at 05/19/2024 - : Comments: Patient was in the hospital last week and treated for Diverticulitis. Patient has arthritis and reports increased LE pain for the past 3 days. Difficulty walking due to groin pain. No recent falls or injuries. Reports falls back in December and February. Currently takes Celecoxib 200mg once daily and Gabapentin 100mg twice a day. Patient does know name of medication she is allergic to. Education provided on the response time and the member was advised to monitor reported s/s and seek emergency treatment if needed. ...................... ...................... ...................... ...................... ...................... ...................... ......... Batteryman Note From Jose Small: Pt chief complaint today of chronic and acute pain. Pt state that her pain began approx 2 years prior to today with a diagnosis of osteoarthritis in her knees bilaterally. Pt also notes pain In her left groin as well as lower back at a rating of 10/10 which has been going on for approx half of one year now. Pt has a history of falls and has been using otc Tylenol 1 gram approx every 8 hours with very minimal relief. Pt has within the last month began using a walker at baseline. Pt is able to ambulate very slowly with the use of her walker. Pt today is looking to have some pain relief given as well as a general assessment. Pt denies any cp, sob, NVD, dizziness of blurred vision. Pt allergies are noted in appropriate PCR tab. Nonneural focal exam, afebrile, vitals are WNL for the baseline of the pt. Lungs are clear bilaterally on auscultation, benign abdominal assessment. Upon inspection of the back the area does not appear red, however is tender to touch, bilateral compression stockings are noted on the knees of the pt, with no reddening and the groin area does not have a mass or bruise noted. Pt has positive csm in all extremities. Gait of pt noted as slow but steady. Pt informs of possible pain management for ketorlac and pt states she cannot take this due to vomiting in the past. Pt is adamant against any use of narcotics and will not use her prescribed oxycodone. [facility] Christina Ashford consulted. Pt informed of findings. Pt informed she may need to make an appointment with her pcp and or a neurologist for an increase In Her gabapentin dose. Pt told of home remedies she may try. Pt also informed of red flag S&S and told to call emergency services if any present. ...................... ...................... ...................... ...................... ...................... ...................... ......... [facility] Consulted: Christina Ashford ...................... ...................... ...................... ...................... ...................... ...................... ......... Disposition: Fulfilled Christina Ashford MD [address] [place] [address],[address], [place], [address], [facility] 05/19/2024 13:51:23 OBGyn Episode No OBEpisode recorded.
--- OUTSIDE RECORDS SUMMARY | 2024-05-24 13:14 | XMS_ITS | Encounter Summary ---
Author Organization [employer] Address [address] [facility] [address] [place] [address] Care Team Providers Care Sales And Marketing Intern Name Role Phone Name, Gregg DIAMOND Primary Care Provider [phone] Reason for Visit * Reason Onset Date Comments clarification of tx 08/09/2023 Encounter Details Date Type Department Care Team (Late st Contact Info) Description 08/09/2023 Telephone [facility] ADULT DENTAL [address] [place] [address] Ayan Calvin, DMD [address] [place] [address] clarification of tx Social History Tobacco Use [...] you to call her. She went to [facility] for RCT today but is looking to [...] 05/26/2024 8:30 AM EDT Office Visit [facility] ADULT DENTAL [address] [place] [address] Ayan Calvin, RAMIREZ [address] [place] [address] 07/17/2024 11:30 AM EDT Office Visit [facility] MEDICINE [address] [place] [address] Name, MD Gregg [address] [place] [address] 09/21/2024 8:00 AM EDT Office Visit [facility] ADULT DENTAL [address] [place] [address] Faye Mi documented as of this encounter Visit Diagnoses Not on filedocumented in this encounter Additional Health Concerns Assessment Noted Time PHQ-9 Depression Total Score: 7 03/04/19 23 9:17 AM EST documented as of this encounter Care Teams Sales And Marketing Intern Relationship Specialty Start Date End Date Name, MD Gregg [address] [place] [address] PCP - General Family Medicine 04/16/15 documented as of this encounter
--- OUTSIDE RECORDS SUMMARY | 2024-05-24 13:15 | XMS_ITS | Encounter Summary ---
Author Organization [employer] Address [address] [facility] [address] [place] [address] Care Team Providers Care Multi Media Specialist Name Role Phone Name, Gregg DIAMOND Primary Care Provider [phone] Reason for Visit * Reason Onset Date Comments Med Refill 05/23/2024 Encounter Details Date Type Department Care Team (Late st Contact Info) Description 05/23/2024 Refill [facility] MEDICINE [address] [place] [address] Name, MD Gregg [address] [place] [address] Social History Tobacco Use Types Packs/Day Years [...] encounter Miscellaneous Notes * Telephone Encounter - Jillian Guan LPN - 05/23/2024 9:32 AM EDT Last seen 05/08/24. * Telephone Encounter - Marla Magallon - 05/23/2024 9:14 AM EDT TC from pt requesting medication refill. Medications needing refill : Lidocaine (HM Lidocaine Patch) 4 % patch To be sent to: [facility] . pt requesting to be sent to [facility] documented in this encounter Plan of Treatment Upcoming Encounters Date Type Department Care Team (Late st Contact Info) Description 05/26/2024 8:30 AM EDT Office Visit [facility] ADULT DENTAL [address] [place], [place] [id number] Ayan Calvin, RAMIREZ [address] [place] [address] 07/17/2024 11:30 AM EDT Office Visit [facility] MEDICINE [address] [place] [address] Name, MD Gregg [address] [place] [id number] 09/21/2024 8:00 AM EDT Office Visit [facility] ADULT DENTAL [address] [place] [address] Fyae Mi documented as of this encounter Visit Diagnoses Not on filedocumented in this encounter Additional Health Concerns Assessment Noted Time PHQ-9 Depression Total Score: 0 09/01/19 24 10:42 AM EDT documented as of this encounter Care Teams Multi Media Specialist Relationship Specialty Start Date End Date Name, MD Gregg [address] [place] [id number] PCP - General Family Medicine 04/16/15 documented as of this encounter
--- OUTSIDE RECORDS SUMMARY | 2024-05-24 13:15 | XMS_ITS | Encounter Summary ---
Author Organization [facility] Address [address] [facility] [address] [place] [address] Care Team Providers Care Type Disk Quality Control Supervisor Name Role Phone Name, Gregg DIAMOND Primary Care Provider [phone] Encounter Details Date Type Department Care Team (Latest Contact Info) Description 09/27/2018 Abstract [facility] CONVERSIONS Dental, Provider, DDS Social History Tobacco [...] Care Team ( st Contact Info) Description 05/26/2024 8:30 AM EDT Office Visit [facility] ADULT DENTAL [address] [place] [address] Ayan Calvin DMD [address] [place] [address] 07/17/2024 11:30 AM EDT Office Visit [facility] MEDICINE [address] [place] [address] Name, MD Gregg [address] [place] [address] 09/21/2024 8:00 AM EDT Office Visit [facility] ADULT DENTAL [address] [place] [address] Faye Mi documented as of this encounter Visit Diagnoses Not on filedocumented in this encounter Care Teams Type Disk Quality Control Supervisor Relationship Specialty Start Date End Date Name, MD Gregg [address] [place] [address] PCP - General Family Medicine 04/16/15 documented as of this encounter
--- OUTSIDE RECORDS SUMMARY | 2024-05-24 13:15 | XMS_ITS | Encounter Summary ---
Author Organization [employer] Address [address] [facility] [address] [place] [address] Care Team Providers Care Induction Heat Treater Name Role Phone Name, Gregg DIAMOND Primary Care Provider [phone] Reason for Visit * Reason Onset Date Comments Appointment Request 05/24/2024 Encounter Details Date Type Department Care Team ([facility] st Contact Info) Description 05/24/2024 Telephone [facility] MEDICINE [address] [place] [address] Name, MD Gregg [address] [place] [address] Appointment Request Social History Tobacco Use Types [...] encounter Miscellaneous Notes * Telephone Encounter - Steve Hoffmann - 05/24/2024 8:21 AM EDT Tc from pt requesting appt with PCP pt states that a lot of things has happened since she last saw name and wants to get a appt to talk to him. Pt would prefer in person but if she has to do it over the phone she will. Contact pt at [phone] documented in this encounter Plan of Treatment Upcoming Encounters Date Type Department Care Team (Late st Contact Info) Description 05/26/2024 8:30 AM EDT Office Visit [facility] ADULT DENTAL [address] [place] [address] Ayan Calvin DMD [address] [place] [address] 07/17/2024 11:30 AM EDT Office Visit [facility] MEDICINE [address] [place] [address] Name, MD Gregg [address] [place] [address] 09/21/2024 8:00 AM EDT Office Visit [facility] ADULT DENTAL [address] [place] [address] Faye Mi documented as of this encounter Visit Diagnoses Not on filedocumented in this encounter Additional Health Concerns Assessment Noted Time PHQ-9 Depression Total Score: 0 09/01/19 24 10:42 AM EDT documented as of this encounter Care Teams Induction Heat Treater Relationship Specialty Start Date End Date Name, MD Gregg [address] [place] [address] PCP - General Family Medicine 04/16/15 documented as of this encounter
--- OUTSIDE RECORDS SUMMARY | 2024-05-24 13:15 | XMS_ITS | Encounter Summary ---
Author Organization [employer] Address [address] [place] [address] Care Team Providers Care Hand Assembler For Puller Over Name Role Phone Name, Gregg DIAMOND Primary Care Provider Encounter Details Date Type Department Care Team ([facility] st Contact Info) Description 05/24/2024 Telephone [facility] MED[facility]INE [address] [place], [place] [phone] Name, MD Gregg [address] [place] [address] Social History Tobacco Use Types Packs/Day Years [...] Description 05/26/2024 8:30 AM EDT Office Visit [facility] ADULT DENTAL [address] [place] [address] Ayan Calvin, RAMIREZ [address] [place] [address] 07/17/2024 11:30 AM EDT Office Visit [facility] MED[facility] [address] [place] [address] Name, MD Gregg [address] [place] [address] 09/21/2024 8:00 AM EDT Office Visit [facility] ADULT DENTAL [address] [place] [address] Faye Mi documented as of this encounter Visit Diagnoses Not on filedocumented in this encounter Additional Health Concerns Assessment Noted Time PHQ-9 Depression Total Score: 0 09/01/19 24 10:42 AM EDT documented as of this encounter Care Teams Hand Assembler For Puller Over Relationship Specialty Start Date End Date Name, MD Gregg [address] [place] [address] PCP - General Family Medicine 04/16/15 documented as of this encounter
--- OUTSIDE RECORDS SUMMARY | 2024-05-24 13:15 | XMS_ITS | Encounter Summary ---
Author Organization [employer] Address [address] [facility] 7t [place] [address] Care Team Providers Care Plug Shaper Hand Name Role Phone Name, Gregg DIAMOND Primary Care Provider [phone] Reason for Visit * Reason Comments Transition Of Care (Tcm) Encounter Details Date Type Department Care Team ([facility] st Contact Info) Description 05/22/[address] [facility] MEDICINE [address] [place], [place] [phone] Name, MD Gregg [address] [place] [address] Transition Of Care (Tcm) Social History Tobacco [...] Progress Notes * Funmi Mcgee RN - 05/22/2024 9:18 AM EDT Transition of Care Note Mag Ayala is going through a recent transition of care. * Maura Taylor RN - 05/22/2024 9:18 AM EDT Images from the original note were not included. Hospital Discharges and Admission for [facility] Type of Visit: Emergency Department Date of Admission/Visit: 05/20/24 Date of Discharge: 05/21/24 [place] [facility] [place]: Pain in right knee (M25.561) Disposition: Discharged Home Follow-Up Actions Follow-Up Needed: None/self-monitoring Follow-Up Outcome: Spoke to Patient Initial Contact Date: 05/22/24 Patient Contacted: Yes Patient Status: Unchanged Pt reports they currently have 10/10 pain in knees. Pt reports they have a nurse coming tomorrow for physical therapy and a nurse from [facility] coming to evaluate her. Pt reports she had medication to help with pain this morning and it helped a little. Pt denies wanting a follow up appointment at this time. Advised pt to call office with any questions or concerns. Pt agreeable to plan. The full discharge summary is Is available under encounters/interface Review Flowsheet [facility] Transition of Care Documentation Type of Visit Date of Admission/Visit Date of Discharge Facility Diagnosis Disposition 01/31/2024 8:14 AM Emergency Department 01/28/2024 01/28/2024 [facility] [place] and Nausea Discharged Home 02/28/2024 10:03 AM Emergency Department 02/25/2024 5:10 pm 02/25/2024 5:56 pm [facility] [place], ? fx right big toe Discharged Home 05/05/2024 11:20 AM Emergency Department 05/05[place]2024 [place] [facility] [place] Dis[place] Home 05/22/2024 9:18 AM Emergency Department 05/20/2024 05/21/2024 [facility] Pain in right knee (M25.561) Discharged Home Recent Visits Date Type Provider Dept 05/08/24 Office Visit Gregg Gandhi MD [facility] Medicine 03/08/24 Office Visit Gregg Gandhi MD [facility] Medicine 01/28/24 Office Visit Taya Watson MD [facility] 01/21/24 Office Visit Gregg Gandhi MD [facility] 12/07/23 Office Visit Alicia Espinoza MD [facility] 12/01/23 Office Visit Yennifer Jimenez MD [facility] 11/11/23 Office Visit Yennifer Jimenez MD [facility] 10/26/23 Office Visit Gregg Gandhi MD [facility] Medicine 09/01/23 Office Visit Gregg Gandhi MD [facility] Medicine 08/24/23 Office Visit Steve Hoyt MD [facility] Medicine Showing recent visits within past 365 days with a meds authorizing provider and meeting all other requirements Future Appointments Date Type Provider Dept 07/17/24 Appointment Gregg Gandhi MD [facility] Medicine Showing future appointments within next 150 days with a meds authorizing provider and meeting all other requirements Patient was educated on hours of operation. documented in this encounter Plan of Treatment Upcoming Encounters Date Type Department Care Team (Late st Contact Info) Description 05/26/2024 8:30 AM EDT Office Visit [facility] ADULT DENTAL [address] [place] [address] Ayan Calvin DMD [address] [place] [address] 07/17/2024 11:30 AM EDT Office Visit [facility] MED[facility] [address] [place] [address] Name, MD Gregg [address] [place] [address] 09/21/2024 8:00 AM EDT Office Visit [facility] ADULT DENTAL [address] [place] [address] Faye Mi documented as of this encounter Visit Diagnoses Not on filedocumented in this encounter Additional Health Concerns Assessment Noted Time PHQ-9 Depression Total Score: 0 09/01/19 24 10:42 AM EDT documented as of this encounter Care Teams Plug Shaper Hand Relationship Specialty Start Date End Date NameGregg MD [address] [place] [address] PCP - General Family Medicine 04/16/15 documented as of this encounter
--- OUTSIDE RECORDS SUMMARY | 2024-05-24 13:15 | XMS_ITS | Encounter Summary ---
Author Organization [employer] Address [address] [facility] 7t [place] [address] Care Team Providers Care Procedure Manager Name Role Phone Name, Gregg DIAMOND Primary Care Provider [phone] Reason for Visit * Reason Onset Date Comments Speak to PCP 05/23/2024 Encounter Details Date Type Department Care Team ([facility] st Contact Info) Description 05/23/2024 Telephone [facility] MEDICINE [address] [place] [address] Name, MD Gregg [address] [place] [address] Speak to PCP Social History Tobacco Use Types Packs/Day Years [...] encounter Miscellaneous Notes * Telephone Encounter - Ellie Reynolds - 05/23/2024 3:02 PM EDT Tc from pt requesting to speak to PCP . Pt stated a lot has been going on with health No further details provided. Denied triage. Pt reported was seen at [facility] [place]24 due to knee pain. Contact pt at [phone] ([email or web address]) documented in this encounter Plan of Treatment Upcoming Encounters Date Type Department Care Team (Late st Contact Info) Description 05/26/2024 8:30 AM EDT Office Visit [facility] ADULT DENTAL [address] [place] [address] Ayan Calvin DMD [address] [place] [address] 07/17/2024 11:30 AM EDT Office Visit [facility] MEDICINE [address] [place] [address] Name, MD Gregg [address] [place] [address] 09/21/2024 8:00 AM EDT Office Visit [facility] ADULT DENTAL [address] [place] [address] Faye Mi documented as of this encounter Visit Diagnoses Not on filedocumented in this encounter Additional Health Concerns Assessment Noted Time PHQ-9 Depression Total Score: 0 09/01/19 24 10:42 AM EDT documented as of this encounter Care Teams Procedure Manager Relationship Specialty Start Date End Date Name, MD Gregg [address] [facility] [place] [address] PCP - General Family Medicine 04/16/15 documented as of this encounter
--- OUTSIDE RECORDS SUMMARY | 2024-05-24 13:15 | XMS_ITS | Encounter Summary ---
Author Organization [employer] Address [address] [facility] 7t [place] [address] Care Team Providers Care Pay Clerk Name Role Phone Name, Gregg IDAMOND Primary Care Provider [phone] Reason for Visit * Reason Onset Date Comments ER Follow-up 05/02/2024 Nurse Triage 05/02/2024 Encounter Details Date Type Department Care Team ([facility] st Contact Info) Description 05/02/[address] [facility] MEDICINE [address] [place] [address] Name, MD Gregg [address] [place] [address] ER Follow-up; Nurse Triage Social History Tobacco [...] of the rollator walker. TC placed to [facility] pharamcyregarding the fosamax. Lori states the medication [...] in June as she will leaving for [place] at the beginning of June Pt requesting a call from PCP. Dock Hand found telehealth visit in PCP schedule. Pt [...] find out more information. TC placed to [facility] pharamcy regardingthe fosamax. Loir states the medication must stay in its [...] She states that she went to the [facility] yesterday due to right leg pain and right knee isswollen. Pt. Was also having throbbing pain in left side of groin. [facility] did not find any blood clot in leg and Xray of left hip and pelvis-negative. ED is recommending referral to Coordinate Measuring Machine Operator according to pt. Pt does not want [...] that she remembers. Pt. Needs referral to Coordinate Measuring Machine Operator. Offered pt. Appt. Today but, pt. Only wants to speak to pcp and is requesting appt. With PCP only or call from PCP to discuss updates and needs. Please get back to pt. To let her know if any of these needs can be met Will send request to Clinical coordinators to get [facility] report from yesterday into pt. Chart. Multiple needs. * Telephone Encounter - Shubham Booth - 05/02/2024 10:20 AM EDT Patient calling to report ED visit on : Date: 05/01/2024 Hospital: [facility] Seen for: Knee pain , groin pain [...] Description 05/26/2024 8:30 AM EDT Office Visit [facility] ADULT DENTAL [address] [place] [place] [address] Ayan Calvin DMD [address] [place] [address] 07/17/2024 11:30 AM EDT Office Visit [facility] MEDICINE [address] [place] [address] Name, MD Gregg [address] [place] [address] 09/21/2024 8:00 AM EDT Office Visit [facility] ADULT DENTAL [address] [place] [place] [address] Faye Mi documented as of this encounter Visit Diagnoses Not on filedocumented in this encounter Additional Health Concerns Assessment Noted Time PHQ-9 Depression Total Score: 0 09/01/19 24 10:42 AM EDT documented as of this encounter Care Teams Pay Clerk Relationship Specialty Start Date End Date Name, MD Gregg [address] [place] [address] PCP - General Family Medicine 04/16/15 documented as of this encounter
--- OUTSIDE RECORDS SUMMARY | 2024-05-24 13:15 | XMS_ITS | Encounter Summary ---
Author Organization [employer] Address [address] [facility] 7t [place] [address] Care Team Providers Care Automatic Lathe Operator Name Role Phone Name, Gregg DIAMOND Primary Care Provider [phone] Reason for Visit * Reason Onset Date Comments Appointment Request 04/18/2024 Encounter Details Date Type Department Care Team ([facility] st Contact Info) Description 04/18/2024 Telephone [facility] MEDICINE [address] [place] [address] Name, MD Gregg [address] [place] [address] Appointment Request Social History Tobacco Use Types [...] PCP. Pt states will be out of [place] from June 18- as she has an appointment with the oncologist on the and with the neurosurgeon on June 27. documented in this encounter Plan of Treatment Upcoming Encounters Date Type Department Care Team (Late st Contact Info) Description 05/26/2024 8:30 AM EDT Office Visit [facility] ADULT DENTAL [address] [place] [address] Ayan Calvin, RAMIREZ [address] [place] [address] 07/17/2024 11:30 AM EDT Office Visit [facility] MEDICINE [address] [place] [address] Name, MD Gregg [address] [place] [address] 09/21/2024 8:00 AM EDT Office Visit [facility] ADULT DENTAL [address] [place] [address] Faye Mi documented as of this encounter Visit Diagnoses Not on filedocumented in this encounter Additional Health Concerns Assessment Noted Time PHQ-9 Depression Total Score: 0 09/01/19 24 10:42 AM EDT documented as of this encounter Care Teams Automatic Lathe Operator Relationship Specialty Start Date End Date Name, MD Gregg [address] [place] [address] PCP - General Family Medicine 04/16/15 documented as of this encounter
--- OUTSIDE RECORDS SUMMARY | 2024-05-24 13:15 | XMS_ITS | Encounter Summary ---
Author Organization [employer] Address [address] [facility] 7t [place] [address] Care Team Providers Care Clerical Assigner Name Role Phone Name, Gregg DIAMOND Primary Care Provider [phone] Reason for Visit * Reason Onset Date Comments call back needed 05/23/2024 Encounter Details Date Type Department Care Team ([facility] st Contact Info) Description 05/23/2024 Telephone [facility] MEDICINE [address] [place] [address] Name, MD Gregg [address] [place] [address] call back needed Social History Tobacco Use Types Packs/Day Years [...] Telephone Encounter - Maura Taylor RN - 05/24/2024 11:13 AM EDT TC placed to Melanie with [facility]. No answer, LVM to call office back and ask to speak to the [place] team nurses. * Telephone Encounter - Keaton Sheridan - 05/23/2024 3:53 PM EDT TC from Melanie With [facility] . Would like a call back to do Med reconciliation Melanie [phone] documented in this encounter Plan of Treatment Upcoming Encounters Date Type Department Care Team (Late st Contact Info) Description 05/26/2024 8:30 AM EDT Office Visit [facility] ADULT DENTAL [address] [place] [address] Ayan Calvin, DMD [address] [place] [address] 07/17/2024 11:30 AM EDT Office Visit [facility] MEDICINE [address] [place] [address] Name, MD Gregg [address] [place] [address] 09/21/2024 8:00 AM EDT Office Visit [facility] ADULT DENTAL [address] [place] [address] Faye Mi documented as of this encounter Visit Diagnoses Not on filedocumented in this encounter Additional Health Concerns Assessment Noted Time PHQ-9 Depression Total Score: 0 09/01/19 24 10:42 AM EDT documented as of this encounter Care Teams Clerical Assigner Relationship Specialty Start Date End Date Name, [place] [address] PCP - General Family Medicine 04/16/15 documented as of this encounter
--- OUTSIDE RECORDS SUMMARY | 2024-05-24 13:15 | XMS_ITS | Encounter Summary ---
Author Organization [employer] Address [address] [place] [address] Care Team Providers Care Wool Sampler Name Role Phone Name, Gregg DIAMOND Primary Care Provider Reason for Visit * Reason Onset Date Comments Nurse Triage 11/27/2022 Encounter Details Date Type Department Care Team ([facility] st Contact Info) Description 11/27/[address] [facility] MEDICINE [address] [place] [address] Name, MD Gregg [address] [place] [address] Nurse Triage Social History Tobacco Use Types [...] caller accepted this outcome Does not need senior lead developer . documented in this encounter Plan of Treatment Upcoming Encounters Date Type Department Care Team (Late st Contact Info) Description 05/26/2024 8:30 AM EDT Office Visit [facility] ADULT DENTAL [address] [place] [address] Ayan Calvin DMD [address] [place] [address] 07/17/2024 11:30 AM EDT Office Visit [facility] MEDICINE [address] [place] [address] Name, MD Gregg [address] [place] [address] 09/21/2024 8:00 AM EDT Office Visit [facility] ADULT DENTAL [address] [place] [place] [address] Faye Mi documented as of this encounter Visit Diagnoses Not on filedocumented in this encounter Additional Health Concerns Assessment Noted Time PHQ-9 Depression Total Score: 7 03/04/19 23 9:17 AM EST documented as of this encounter Care Teams Wool Sampler Relationship Specialty Start Date End Date Name, MD Gregg [address] [place] [address] PCP - General Family Medicine 04/16/15 documented as of this encounter
--- OUTSIDE RECORDS SUMMARY | 2024-05-24 13:15 | XMS_ITS | Data Portability ---
Author Organization [employer] [employer] Address [address] [place] [address] Care Team Providers Care Electronic Calibration Technician Name Role Phone HIM CCA OTHER NAME, [email or web address] Primary Care Provider Assessment Encounter Date Assessment Date Assessment LastModified by Organization Details LastModified Time 03/30/2024 03/30/2024 service called for unusual rash found 74 marcial with hx HTN COPD c/o sudden appearance red rashs on left thigh denies trauma, burn suspects related to jeans non tender, non painful, not itchy, not raised, VSS focal non-confluent, non-tender, non raised, not scaly patches 5 in total on L thigh #Rash no e/o bacterial or fungal cellulitis, very unlikely burn, unlikely allergy possible related to friction points related to jeans rashes do not appear infectious and pt suitable to continue with usual group activities notify service if rash worsening otherwise return to primary team [email or web address] Not available 03/31/2024 00:03:49 05/04/2024 05/04/2024 I have reviewed and agree with the Assessment and Plan as documented by the Bight Maker. I provided real-time medical direction via phone for this encounter, and was available for additional phone based assistance as needed. I would add/emphasize: Patient seen for multiple complaints specifically for new diagnosis of hemorrhoids which patient just noticed as well as reported severe weakness malaise nausea and vomiting since Wednesday. Reviewed management of nonthrombosed external hemorrhoids with supportive care and avoidance of constipation/str aining. Bight Maker checked COVID flu and strep tests which were negative. Reviewed heart limited ability to diagnose clearly why she is having global symptoms of weakness as well as her new complaint of groin pain however offered to help facilitate close PCP reevaluation with watchful waiting approach at home. Patient reports that she feels extremely concerned by new severe groin pain and global weakness stating that she does not feel safe to remain at home without a definitive answer for her symptoms. Patient requesting transfer to the ED and she was assisted with this. [email or web address] Not available 05/04/2024 17:00:34 05/19/2024 05/19/2024 I provided real -time medical direction via phone for this encounter, and was available for additional phone based assistance as needed. I have reviewed and agree with the Assessment and Plan as documented by the Bight Maker. We discussed the diagnostic uncertainty of home [...] call 911- she verbalized understanding of instructions [email or web address] Not available 05/19/2024 13:50:42 Plan of Treatment Reminders Order Date Submit Date Provider Last Modified By Organization Details Last Modified Time Details Appointments None recorded. Lab rapid SARS CoV 2 Ag, QL [place], respiratory specimen [address], [address] [place] [address] 5 20:05:02 rapid flu (A+B) [address], [id number] 5 20:05:02 rapid strep group A, throat [address], [id number] 5 20:05:03 rapid SARS CoV 2 Ag, QL [place], respiratory specimen [address], [id number] 4 08:33:11 rapid flu (A+B) [address], [address] 4 08:33:54 Referral None recorded. Procedures None recorded. Surgeries None recorded. Imaging None recorded. Medication Orders acetaminoph en 325 mg tablet 2023 024 [facility], [address] [place] [address], [id number], 11:54:22 acetaminoph en 500 mg tablet 2023 024 [email or web address] [facility], [address] [place] [address], [id number], 19:28:30 Patient TargetsNo targets recorded. Patient InstructionsNo instructions recorded. Reason for Referral None Reported. Results Created Date Observation Date Name Description Value Unit Range Abnormal Flag Note LastModifiedBy Organization Detail LastModifiedTime Result Notes None recorded. Medical Equipment None Reported. Allergies Allergen ID Allergen Name Allergen Category Reaction Reaction Severity Criticality Documentation Date Start Date Code Code System Note Provider Name and Address Organization Details Recorded Time 27324 Nubain medicatio n Not available Not available Not available 05/19/2024 7550 RxNorm Christina Ashford MD [address] [place] [address],[address], [place], [address], [employer] 13:03:23 85513 ketorolac medicatio n vomiting Not available Not available 05/19/2024 66519 RxNorm Christina Ashford MD [address] [place] [address],[address], [place], [address], [employer] 13:03:50 Medications Name Sig Start Date Stop [...] t Available Vitals Date Recorded Body temperature Oxygen saturation Oxygen saturation in Arterial blood by Pulse oximetry Respiratory rate Heart rate Systolic blood pressure Diastolic blood pressure Provider Name and Address Organization Details Last Updated DateTime 4 97.9 [degF] 99 % 99 % 18 /min 89 /min 128 mm[Hg] 80 mm[Hg] Not Available [employer] - [employer] 4 19:18:04 Date Recorded Body weight Oxygen saturation Oxygen saturation in Arterial blood by Pulse oximetry Heart rate Body height Respiratory rate Body temperature Systolic blood pressure Diastolic blood pressure Provider Name and Address Organization Details Last Updated DateTime 5 45845.6 g 100 % 100 % 75 /min 157.48 cm 14 /min 98 [degF] 131 mm[Hg] 75 mm[Hg] Not Available [email or web address] - [employer] 5 19:36:31 Date Recorded Oxygen saturation Oxygen saturation in Arterial blood by Pulse oximetry Heart rate Body temperature Respiratory rate Body height Body weight Systolic blood pressure Diastolic blood pressure Provider Name and Address Organization Details Last Updated DateTime 5 100 % 100 % 91 /min 98.6 [degF] 19 /min 160.02 cm 26980.0 08 g 110 mm[Hg] 71 mm[Hg] Not Available [email or web address] - [employer] 5 21:41:12 Date Recorded Respiratory rate Body temperature Oxygen saturation Oxygen saturation in Arterial blood by Pulse oximetry Heart rate Systolic blood pressure Diastolic blood pressure Provider Name and Address Organization Details Last Updated DateTime 5 20 /min 97.9 [degF] 97 % 97 % 100 /min 138 mm[Hg] 76 mm[Hg] Not Available [place] - [employer] 5 15:18:17 Date Recorded Body temperature Heart rate Body weight Body height Oxygen saturation Oxygen saturation in Arterial blood by Pulse oximetry Respiratory rate Systolic blood pressure Diastolic blood pressure Provider Name and Address Organization Details Last Updated DateTime 5 97.6 [degF] 96 /min 73356.1 92 g 160.02 cm 97 % 97 % 19 /min 106 mm[Hg] 72 mm[Hg] Not Available [email or web address] - [employer] 5 12:56:43 Social History None recorded. Functional Status None recorded. Mental Status None recorded. Family History Nothing Reported. Medical History No medical history recorded. Gynecological HistoryNo gynecological history recorded. Obstetrics History GPAL:G 0 P 0 0 0 0 Past Encounters Encounter ID Performer Location Encounter Start Date Encounter Closed Date Diagnosis/Indication Diagnosis SNOMED-CT Code Diagnosis ICD10 Code Diagnosis Note [id number] Abran Hayward MD [facility] - [facility] [address] [place] [id number] 01/31/2024 14:50:58 01/31/2024 16:04:33 [id number] Jameel Haddad MD Main - [facility] [address] [place] [phone] 02/03/2024 19:16:36 02/03/2024 22:59:01 Viral upper respiratory tract infection 102203358 J06.9 S/p treatment for bronchitis with Azithromyc in. Negative COVID/flu test. Able to maintain PO hydration. Discussed red flag signs for which to seek higher level of care. [id number] Rick Hartmann MD Main - [facility] [address] [place] [phone] 02/24/2024 19:36:29 02/24/2024 20:10:20 Diarrhea 10110466 R19.7 As noted, we were called to see this patient regarding concerns of gastroente ritis symptoms. Evaluation in the field was performed by my commercial painter colleague, as noted above, I provided real-time direction and supervisio n for this visit. The evaluation revealed very reassuring VS not c/w significan t hypovolemi a, and patient tolerating PO well. Impression :Gastroent eritis, likely viral as is typical currently. No e/o serious complicati ons. Plan:Radha nue PO fluids and BRAT diet/gentl e foodsRestP RN diarrhea meds OK sparinglyC ounseled on pathophys and likely course Dispositio n: We discussed the diagnostic uncertaint y of home visits and the risk associated with this. In this case, the patient and I felt this to be an acceptable and reasonable amount of risk given the benefit of avoiding an ED visit. We discussed the need to seek care urgently/e mergently in the setting of any new or worsening serious symptoms, particular ly significan t hematochez ia, non-resolv ing diarrhea. [id number] Loki Barajas MD Main - [facility] [address] [place] [phone] 03/30/2024 21:41:10 03/31/2024 15:17:43 Localized eruption of skin [id number] R21 [id number] Cody Spicer MD Main - [facility] [address] [place] [phone] 05/04/2024 15:18:09 05/04/2024 20:57:19 Abdominal pain 19970897 R10.9 [id number] Christina Ashford MD Main - [facility] [address] [place] [address] 05/19/2024 12:56:41 05/19/2024 14:17:51 Osteoarthritis of multiple joints 895128463 M15.9 advised ice / wrapped in a towel alternatin g w/ gentle heat q 3-4H w/a to affected areas/sugg ested lidocaine patches which she apparently already has. Patient is already taking Tylenol 500 mg 2 capsules every 8 hours which is maximum dose for her weight. She is also on celecoxib. I suggested she discuss with her PCP the possibilit y of increasing her gabapentin dose.She has oxycodone but does not take it because she does not like how it makes her feel Chronic pain syndrome 37 5256949 G89.4 Explained to patient we cannot offer controlled substances through this program [email or web address] bolden and since she states she cannot [...] by Organization Details LastModified Time None Recorded Advance Directives Directive None Recorded Payers Encounter Date Sequence Insurance Name Policy Number Policy Schrader Covered Member ID Schrader Member ID Guarantor Name 02/03/2024 1 FORMERLY [facility] - DOS ON OR AFTER 2022 - DUAL ELIGIBLE - INTERMEDIATE OPTIONS AND ONE CARE (MEDICARE REPLACEMENT/ADV ANTAGE - HMO) Mag Ayala [id number] Mag Valdeza 02/24/2024 1 FORMERLY [facility] - DOS ON OR AFTER 2022 - DUAL ELIGIBLE - INTERMEDIATE OPTIONS AND ONE CARE (MEDICARE REPLACEMENT/ADV ANTAGE - HMO) Mag Ayala [id number] Mag Valdeza 03/30/2024 1 FORMERLY [facility] - DOS ON OR AFTER 2022 - DUAL ELIGIBLE - INTERMEDIATE OPTIONS AND ONE CARE (MEDICARE REPLACEMENT/ADV ANTAGE - HMO) Mag Ayala [id number] Mag Ayala 05/04/2024 1 FORMERLY [facility] - DOS ON OR AFTER 2022 - DUAL ELIGIBLE - INTERMEDIATE OPTIONS AND ONE CARE (MEDICARE REPLACEMENT/ADV ANTAGE - HMO) Mag Ayala [id number] Mag Ayala 05/19/2024 1 FORMERLY [facility] - DOS ON OR AFTER 2022 - DUAL ELIGIBLE - INTERMEDIATE OPTIONS AND ONE CARE (MEDICARE REPLACEMENT/ADV ANTAGE - HMO) Mag Ayala [id number] Mag Ayala Notes Date Note Type Note Provider Name and Address Organization Details Recorded Time 02/03/2024 text/html HPI: Member called into [facility] stating she was treated on January 27 for Asthma/ Bronchitis with Azithromycin. She states they ran a whole panel and tested at that time negative for Flu and Covid-19. She states that ever since she left the hospital she has felt horrible, she is experiencing headache, body aches, vomited today and has the chills. She denies fever or wheezing. Mag states she checked her blood pressure yesterday and it was 89/52 and heart rate 76. She states today her blood pressure was 119/75, hear rate 76. Mag states she feels lightheaded/dizzy and weak. She states her lungs and ribs hurt a lot. She states she is drinking an alkaline beverage. ...................... ...................... ...................... ...................... ...................... ...................... ......... [facility] Nurse Triage Notes (Melanie Grubbs - RN): Chief Complaints: Dizziness, Fever/chills, Headache, Vomiting, Weakness PMH: Anxiety Disorder, Asthma, Chronic Pain, Depression, Osteoporosis, Hypothyroidism, Gastroesophageal Reflux Disease (GERD), Sleep Apnea Comments: HPI reviewed- NE Bight Maker Organization Information for Gurpreet Wilson Business Legal Name: [employer]? Address: [address] [place] [address], [employer] Management Specialist: Rich ENCARNACION No.: [id number] Bight Maker POC Test Results from Gurpreet Wilson Rapid COVID antigen (19:18:27) COVID: - Rapid influenza antigen (19:18:29) Flu: - ...................... ...................... ...................... ...................... ...................... ...................... ......... Bight Maker Note From Gurpreet Wilson: Dispatched to the call address for the female with cold/flu like symptoms. Pt states on 01/26 she started feeling ill, went to the clinic on the and was sent to the ED from there. Pt was diagnosed with bronchitis and was treated with abx that she finished 2 days ago. Pt states she has a constant headache, mild dry cough, body aches, chills without fevers, rib pain and feels like her lungs are on fire. Pt has been using her albuterol MDI with good effect. Pt denies sob/diff breathing at this time. Pt was found opening door, in no obvious distress, CAOx4, airway open and patent, breathing non labored, able to speak in full sentences, -JVD, -HEENT, skin PWD with good turgor, abd soft non tender/distended, pupils PERRL, mucous membranes pink and moist, +CMSx4, -swelling/edema. lungs CTA, afebrile. Rapid Covid/flu both (-). [facility] consulted. Pt given 500mg PO Tylenol. Red flags discussed. ALL times are approx. ...................... ...................... ...................... ...................... ...................... ...................... ......... [facility] Consulted: Surya Haddad ...................... ...................... ...................... ...................... ...................... ...................... ......... Disposition: Fulfilled Jameel Haddad MD [address] [place] [address],[address] [facility], [place], [address], [facility] - [employer] 02/03/2024 20:53:56 02/24/2024 text/html HPI: Franko is a 63 yo female with hx of but not all inclusive of pseudotumor cebebri, headache syndrome, ZHAO, diverticular disease, acid reflux, colon polyp, gastroenteritis, constipation, urine retention, crystal arthropathy, morbid obesity, hx of gastric bypass, vertigo, anxiety, depression, panic attacks, bronchial asthma, osteoporosis, and acquired hypothyroidism. No listed allergies. Franko calling in reporting that she has not been feeling well since this morning. Franko reports headache, nausea, diarrhea, and generalized malaise and weakness. Denies fever, chest pain, or vomiting. Franko was seen by nilay a few weeks ago for other conditions and got better but today feels ill and would like nilay to come out to see her today. Franko is declining ER currently. Informed Mbr that an INBSTED referral would be placed by this [facility] RN however if has worsening s/s, sob, chest pain, high fever to call 911 and go to ER. Mbr agreed with plan. Confirmed address and phone/[phone]. ...................... ...................... ...................... ...................... ...................... ...................... ......... [facility] Nurse Triage Notes (Farrah Richards - RN): Chief Complaints: Dehydration, Diarrhea, Fatigue, Headache, Nausea, Weakness PMH: Anxiety Disorder, Asthma, Chronic Pain, Depression, Osteoporosis, Hypothyroidism, Gastroesophageal Reflux Disease (GERD), Sleep Apnea PMH Reviewed at 02/24/2024 14:38 Allergies Reviewed at 02/24/2024 - 14:38 Comments: Reviewed referral and no further info needed. Oracio TORRES Bight Maker Organization Information for Dionicio Hawkins Business Legal Name: [facility] Address: [address] [place] [address], [place] [address], [employer] Specialist: Chase Parker MD CLIA No.: [id number] Bight Maker POC Test Results from Dionicio Hawkins Rapid COVID antigen (15:44:40) COVID: - Rapid influenza antigen (15:44:41) Flu: - ...................... ...................... ...................... ...................... ...................... ...................... ......... Bight Maker Note From Ross Dionicio: Patient alert and oriented answers the door. Patient complains of diarrhea, came on and suddenly woke her up from sleep this morning, times four occasions. No black or bloody stool noted. Patient also complains of nausea and has been drinking water. States her appetite is OK, patient also complains of headache. Patient denies chest pain and difficulty breathing vomiting abdominal pain or any other pain or complaints. Patient, pink warm, dry, secondary exam unremarkable, frequent nonproductive, cough noted, lung sound clear, bilateral negative increase breathing positive full sentences abdomen soft non-tender extremities on remarkable no edema noted. Patient negative for Covid and flu via rapid POC. [facility] advises possible GI virus, continue hydration, follow BRAT diet, use Tylenol for headache as directed. Red flags, patient education discussed. ...................... ...................... ...................... ...................... ...................... ...................... ......... [facility] Consulted: Randall Hartmann ...................... ...................... ...................... ...................... ...................... ...................... ......... Disposition: Fulfilled Rick Hartmann MD [address] [facility],[address], [place], [address], LYLY NILAY SARANYA 02/24/2024 19:48:21 03/30/2024 text/html CRC Nurse Triage Notes (Farrah Richards - RN): Reason For Request: Common cold symptoms, cough, sore throat, runny nose, headaches Chief Complaints: Cough, Common cold symptoms, Weakness PMH: Anxiety Disorder, Asthma, Chronic Pain, Depression, Osteoporosis, Hypothyroidism, Gastroesophageal Reflux Disease (GERD), Sleep Apnea PMH Reviewed at 03/30/2024 - :36 Allergies Reviewed at 03/30/2024 - :36 Comments: URI/common cold symptoms, coughing. Drinking lots of fluid but not feeling well, Will place referral for workup Oracio TORRES Bight Maker Organization Information for DevaughnKody Silvestre GLADIS Business Legal Name: [employer]? Address: [address] [place] [address], [employer] Specialist: Rich Pillai MD [facility] No.: [id number] Bight Maker POC Test Results from Kody Cantor Rapid influenza antigen (21:36:11) Flu: - Rapid COVID antigen (21:36:12) COVID: - ...................... ...................... ...................... ...................... ...................... ...................... ......... Bight Maker Note From Kody Cantor: Dispatched to above address for a 63 y/f with a cc of couch/chills. Proper ppe was worn throughout the call. Upon arrival: Pt Corona was walking in her apartment unit and was talking in full sentences. Pt greeted crew, and gave a verbal report. Pt stated that today, around 5:00 pm she started to have the following symptoms: Cough/chills/minor sore throat. Pt stated that the symptoms have been getting worse over the past hour, and prior to crew arrival she self administered Tylenol/over the counter cough medicine. Airway: Patent - Breathing: equal chest rise and fall - Skin: pink, warm, dry - Pupils: PERRL - CMSx4 - Vitals: see above - LS: clear in all hunt - Cough: was noted to be dry with no sputum coming up. Pt denied to any pain. Pt denied to headache/sob/dizziness /constipation/diarrhea /difficulty urination/nausea/vomit ing. (-) Covid/influenza. No edema in the lower extremity [facility] contacted. [facility] ordered the pt to monitor her temp/cough/flu like symptoms, and if symptoms get worse then to either call back/call pcp/call 911. [facility] added to keep taking Tylenol as needed. Pt stated that she understood and stated that she was feeling a little better after taking Tylenol. Crew cleared from call. All times approximate. ...................... ...................... ...................... ...................... ...................... ...................... ......... [facility] Consulted: Loki Barajas ...................... ...................... ...................... ...................... ...................... ...................... ......... Disposition: Fulfilled Loki Barajas MD [address] [place] [address],[address], [place], [address], [employer] [facility] [employer] 03/31/2024 00:03:57 05/04/2024 text/html CRC Nurse Triage Notes (Yudelka Cintron): Reason For Request: Pt states she has pain in her groin, feels burning sensation. Took picture and sees possible hemorrhoids Chief Complaints: Wound Care PMH: Anxiety Disorder, Asthma, Chronic Pain, Depression, Osteoporosis, Hypothyroidism, Gastroesophageal Reflux Disease (GERD), Sleep Apnea, Inflammatory Bowel Disease (Crohn's Disease, Ulcerative Colitis) PMH Reviewed at 05/04/2024: Allergies Reviewed at 05/04/2024:19 Comments: PMH- diverticulosis Patient calling in to place a referral, identified via name and . Patient aware we cannot perform vaginal/rectal exams, and she does not want an exam. She reached out to one her specialist which recommended she reach out to her PCP to get an urgent appt with a diesel truck driver. Patient was in the bath last night, was gently washing near her anus, and noted to feels like a pimple . She took a picture on her phone, and she states, it looks like I have mini purple sausages hanging out of my anus . It was recommended by a doctor to use OTC hemorrhoids cream, but patient watched videos on YouTube, and decided against using the cream due to adverse effects. Patient states there is pain and burning to her anus, she is currently using an icepack. Patient would like to be evaluated, get support and advice from medic and [facility]. Bight Maker Organization Information for Beto Nowak Legal Name: [employer].? Address: [address] [place] [id number], [employer] Specialist: Rich Pillai MD CLIA No.: [id number] Bight Maker POC Test Results from Slowinski, Beto - ALS Rapid COVID antigen (15:10:46) COVID: - Attachments uploaded as part of this test result can be found under Documents section. Rapid influenza antigen (15:10:46) Flu: - Attachments uploaded as part of this test result can be found under Documents section. Rapid strep test (15:16:14) Strep: - Attachments uploaded as part of this test result can be found under Documents section. ...................... ...................... ...................... ...................... ...................... ...................... ......... Bight Maker Note From Beto Nowak: Dispatched to above address for hemorrhoids. On arrival patient 63 y/o F, met SC8 at the door, walking with walker, slight limp, uncomfortable walking, AOX4, airway patent, speaking in full sentences, good color, in no apparent distress. Patient states yesterday while using the bathroom she noticed a mass near her rectum, painful to touch with burning sensation, took a photo and spoke with her PCP who recommended seeing pole classifier prior to using preparation H, also reporting severe sharp L groin pain, and weakness malaise and vomiting since Wednesday. Patients vital signs checked. Patient described hemorrhoids. Secondary assessment, pupils PERRL, airway patent, no JVD, trachea midline, equal chest rise and fall, lungs clear all hunt, abdomen soft non tender, no signs of trauma, good radial pulse, skin pink warm and dry. Covid-19 Flu and strep test checked, all negative, results uploaded. [facility] [facility] contacted, spoke with Dr. Spicer, advised of patient complaints, exam findings and test results. [facility] SC8 and patient had a lengthy discussion, patient states she would feel uncomfortable staying at home, requested and ambulance to the ER for further evaluation. 911 contacted, [facility] responded, verbal report given to [place] EMT, took over patient care, will transport to [facility] [place]. SC8 clear. EOR. ...................... ...................... ...................... ...................... ...................... ...................... ......... [facility] Consulted: Cody Spicer ...................... ...................... ...................... ...................... ...................... ...................... ......... Disposition: Fulfilled Cody Spicer MD [address] [place] [address],[address], [place], [address] [employer] 05/04/2024 17:00:46 05/19/2024 text/html CRC Nurse Triage Notes (Melanie [...] PMH Reviewed at 05/19/2024: Allergies Reviewed at 05/19/2024: Comments: Patient was in the hospital last [...] ...................... ...................... ...................... ...................... ...................... ...................... ......... Bight Maker Note From Jose Small: Pt chief complaint [...] and will not use her prescribed oxycodone. [facility] Christina Ashford consulted. Pt informed of findings. Pt informed she may need to make an appointment with her pcp and or a neurologist for an increase In Her gabapentin dose. Pt told of home remedies she may try. Pt also informed of red flag S&S and told to call emergency services if any present. ...................... ...................... ...................... ...................... ...................... ...................... ......... [facility] Consulted: Christina Ashford ...................... ...................... ...................... ...................... ...................... ...................... ......... Disposition: Fulfilled Christina Ashford MD [address] [facility],[address], [place], [address], [employer] [employer] [facility] [employer] 05/19/2024 13:51:23 OBGyn Episode No OBEpisode recorded.
--- OUTSIDE RECORDS SUMMARY | 2024-05-24 13:15 | XMS_ITS | Encounter Summary ---
Author Organization [employer] Address [address] [place] [address] Care Team Providers Care Parachute/Combatant Diver Officer Name Role Phone Name, Gregg DIAMOND Primary Care Provider [phone] Reason for Visit * Reason Comments Med Refill Encounter Details Date Type Department Care Team ([facility] st Contact Info) Description 05/24/2024 Refill [facility] MEDICINE [address] [place] [address] Ban Granados FNP [address] [place] [address] Social History Tobacco Use Types Packs/Day Years [...] Description 05/26/2024 8:30 AM EDT Office Visit [facility] ADULT DENTAL [address] [place] [address] Ayan Calvin, RAMIREZ [address] [place] [address] 07/17/2024 11:30 AM EDT Office Visit [facility] MED[facility] [address] [place] [address] Name, MD Gregg [address] [place] [address] 09/21/2024 8:00 AM EDT Office Visit [facility] ADULT DENT[facility] [address] [place] [address] Faye Mi documented as of this encounter Visit Diagnoses Not on filedocumented in this encounter Additional Health Concerns Assessment Noted Time PHQ-9 Depression Total Score: 0 09/01/19 24 10:42 AM EDT documented as of this encounter Care Teams Parachute/Combatant Diver Officer Relationship Specialty Start Date End Date Name, MD Gregg [address] [place] [address] PCP - General Family Medicine 04/16/15 documented as of this encounter
--- OUTSIDE RECORDS SUMMARY | 2024-05-24 13:15 | XMS_ITS | Encounter Summary ---
Author Organization [employer] Address [address] [facility] 7t [place] [address] Care Team Providers Care Gluer And Slicer Hand Name Role Phone Name, Gregg DIAMOND Primary Care Provider [phone] Reason for Visit * Reason Onset Date Comments Nurse Triage 05/04/2024 Encounter Details Date Type Department Care Team ([facility] st Contact Info) Description 05/04/2024 Telephone [facility] MED[facility] [address] [place] [address] Name, MD Gregg [address] [place] [address] Nurse Triage Social History Tobacco Use Types [...] encounter Miscellaneous Notes * Telephone Encounter - Fnumi Mcgee RN - 05/04/2024 1:02 PM EDT Reviewed Endocrinology note form visit today, no mention of below information. Do see mention of hemorrhoids. No clinical technician needed as this grant writer speaks Maltese. Call returned to Mag Ayala to triage [...] to perform UA. Pt requesting referral to Sustainability Coordinator per recommendation from Education Analyst. Pt advised will forward note to Provider [...] acuity questions The caller accepted this outcome. [phone] (chadian) pt states knows Czech but there are some words she can't say or understand. Tc from pt stating visited the order packer or packager today, and he told pt should ask her PCP for a referral for a prosthetic because pt has several purple veins in the anus. Pt states this hasn't happenedto her before. documented in this encounter Plan of Treatment Upcoming Encounters Date Type Department Care Team (Late st Contact Info) Description 05/26/2024 8:30 AM EDT Office Visit [facility] AD[facility] [address] [place] [address] Ayan Calvin, RAMIREZ [address] [place] [address] 07/17/2024 11:30 AM EDT Office Visit [facility] [address] [place] [address] Name, MD Gregg [address] [place] [address] 09/21/2024 8:00 AM EDT Office Visit [facility] ADULT D[facility]AL [address] [place] [address] Faye Mi documented as of this encounter Visit Diagnoses Not on filedocumented in this encounter Additional Health Concerns Assessment Noted Time PHQ-9 Depression Total Score: 0 09/01/19 24 10:42 AM EDT documented as of this encounter Care Teams Gluer And Slicer Hand Relationship Specialty Start Date End Date Name, MD Gregg [address] [place] [address] PCP - General Family Medicine 04/16/15 documented as of this encounter
--- OUTSIDE RECORDS SUMMARY | 2024-05-24 13:15 | XMS_ITS | Clinical Summary ---
Author Organization [employer] Address [address] [facility] 7t [place] [address] Care Team Providers Care Parcel Wrapper Name Role Phone Name, Gregg DIAMOND Primary Care Provider [phone] Allergies Active Allergy Reactions Criticality Noted Date [...] 2 sprays each nostril bid prn rhinorrhea, welsh 15 mL 12/07/19 24 Active doxepin (SINEquan) 75 MG capsule Take 1 capsule by mouth at bedtime 12/22/19 24 Active Fluticasone-Quique meterol 250-50 MCG/ACT aerosol powder Inhale 1 puff by mouth twice daily. Rinse mouth after using. 12/23/19 24 Active azithromycin (Zithromax) 250 MG tablet [...] week. 2 mL 3 05/11/19 25 Active Lidocaine (HM Lidocaine Patch) 4 % patch Apply once a day to affected area of the low back 30 patch 3 05/24/19 25 Active cholecalciferol (Vitamin D-3) 25 MCG tabletIndicatio ns:Osteoporosis , unspecified osteoporosis type, unspecified pathological fracture presence TAKE 1 TABLET BY MOUTH EVERYDAY AT NOON 90 tablet 12/29/19 24 025 Discontinued Lidocaine (HM Lidocaine Patch) 4 % patch Apply once a day to affected area of the low back 30 patch 3 01/21/20 24 025 Discontinued(Re order (will not trigger notification to Pharmacy)) Tirzepatide-Eddie ght Management (Zepbound) 5 MG/0.5ML solution auto-injector Inject 0.5 mL (5 mg) under the skin 1 (one) time per week. 2 mL 11 03/08/19 25 025 Discontinued(Do se adjustment) Tirzepatide 10 MG/0.5ML solution auto-injector Inject under the skin. 025 Discontinued(Re order (will not trigger notification to Pharmacy)) Tirzepatide 10 MG/0.5ML solution auto-injectorIn dications:Class 1 obesity Inject 0.5 mL under the skin 1 (one) time per week. Inject under the skin one time per week 2 mL 05/09/19 25 025 Discontinued(Do se adjustment) Active [...] is already in the process of seeing [facility] Plan: Increase fluids, pain [...] range. Recent lab work not available contacted [facility] for results. Will renew medications at the [...] Encounters Date Type Department Care Team Description 05/24/2024 Telephone [facility] [address] Gregg Gandhi MD Appointment Request 05/24/2024 Telephone [facility] MEDICINE [address] [place] [address] Gregg Gandhi MD 05/24/2024 Refill [facility] MEDICINE [address] [place], [place] [address]sh[place] [address] Ban Granados FNP 05/23/2024 Telephone [facility] [place] [address] Gregg Gandhi MD call back needed 05/23/2024 Telephone [facility] MEDICINE [address] [place] [address] Gregg Gandhi MD Speak to PCP 05/23/2024 Refill [facility] [address] Gregg Gandhi MD 05/22/2024 Patient Outreach [facility] MEDICINE [address] [place] [address] Gregg Gandhi MD Transition Of Care (Tcm) 05/22/2024 Telephone [facility] [place] [address] Gregg Gandhi MD verbal order 05/18/2024 Telephone [facility] MEDICINE [address] [place] [address] Gregg Gandhi MD Nurse Triage 05/15/[address] [address] Gregg Gandhi MD Durable Medical Equipment; Call Back Request 05/12/2024 9:00 AM EDT Office Visit [facility] ADULT DENTAL [address] [place] [address] Ayan Calvin, DMD 05/09/[address] [address] Natalie Nathan, BRIAN 05/08/2024 11:15 AM EDT Office Visit [address] [address] Gregg Gnadhi MD Diverticulitis (Primary Dx); Left hip pain 05/08/[address] [address] Gregg Gandhi MD Class 1 obesity (Primary Dx) 05/08/2024 Travel 05/05/[address] [address] Gregg Gandhi MD Durable Medical Equipment 05/05/2024 Patient Outreach [address] [address] Gregg Gandhi MD Transition Of Care (Tcm) 05/04/[address] [address] Gregg Gandhi MD Nurse Triage 05/03/2024 2:15 PM EDT Telemedicine [address] [address] Gregg Gandhi MD Right knee pain, unspecified chronicity (Primary Dx); Osteoarthritis of right knee, unspecified osteoarthritis type; Obesity (BMI 30-39.9) 05/03/2024 Travel 05/03/2024 Telephone [facility] PEDIATRICS [address] [place] [address] Gregg Gandhi MD Return Call 05/03/[address] [address] Leatha, Josselin, OPTICAL INSTRUMENT ASSEMBLER Osteoporosis, unspecified osteoporosis type, unspecified pathological fracture presence 05/02/[address] [address] Gregg Gandhi MD ER Follow-up; Nurse Triage 05/01/2024 9:00 AM EDT Office Visit [facility] ADULT DENTAL [address] [place] [address] Ayan Calvin, DMD 05/01/2024 Orders Only [facility] External Provider, [facility] 05/01/2024 Telephone [place] [address] Gregg Gandhi MD Prior Authorization (Lidocaine ) 04/19/2024 Travel 04/19/[address] [address] Sweta Giraldo [place] Appointment Request 04/18/[address] [address] Gregg Gandhi MD Appointment Request 04/10/2024 2:00 PM EST Office Visit [facility] WALK-IN [address] [address] Sore throat (Primary Dx); Right ear pain 04/10/2024 10:30 AM EST Office Visit [facility] ADULT DENTAL [address] [place] [address] Ayan Calvin, DMD 04/10/[address] [address] Gregg Gandhi MD 03/29/[address] [address] Gregg Gandhi MD Durable Medical Equipment 03/22/[address] [address] Gregg Gandhi MD Medication Question 03/20/[address] [address] Gregg Gandhi MD Osteoporosis, unspecified osteoporosis type, unspecified pathological fracture presence 03/14/2024 Refill [facility] MEDICINE [address] [place] [address] Gregg Gandhi MD Bariatric surgery status 03/10/2024 10:30 AM EST Office Visit [facility] ADULT DENTAL [address] [place] [address] Ayan Calvin DMD 03/08/2024 9:00 AM EST Office Visit [facility] MEDICINE [address] [place] [address] Gregg Gandhi MD Obesity (BMI 30-39.9) (Primary Dx); Chronic pain of right knee; Primary osteoarthritis of right knee; Spondylosis of lumbar region without myelopathy or radiculopathy 03/08/[address] [address] Gregg Gandhi MD Durable Medical Equipment 02/28/[address] [address] Gregg Gandhi MD ER Follow-up 02/28/2024 Patient Outreach [address] [address] Gregg Gandhi MD Transition Of Care (Tcm) 02/28/2024 Telephone [facility] ADULT DENTAL [address] [place] [phone] Ayan Calvin DMD broken tooth to hold partial from Last 3 Months Immunizations Name Administration [...] Sign Reading Time Taken Comments Blood Pressure 136/80 05/12/2024 8:53 AM EDT Pulse 72 05/12/2024 8:53 AM EDT Temperature 36.6 ??C (97.8 ??F) [...] Description 05/26/2024 8:30 AM EDT Office Visit [facility] ADULT DENTAL [address] [place] [address] Ayan Calvin, RAMIREZ [address] [place] [address] 07/17/2024 11:30 AM EDT Office Visit [facility] MEDICINE [address] [place] [address] Name, MD Gregg [address] [place] [address] 09/21/2024 8:00 AM EDT Office Visit [facility] ADULT DENTAL [address] [place] [address] Faye Mi Health Maintenance Due Date Last [...] 08/31/2023, 08/01 Depression Screening 08/31/2024 09/01/2023, 09/01/19 SDOH Screening 08/31/2024 09/01/2023 Mammogram 04/19/2025 04/20/2023, 03/19, 04/09/2022, Additional history exists Tobacco Screening 05/12/2025 05/12/2024 Lipid Panel 05/20/2025 05/20/2020 Colonoscopy 08/08/2025 08/08/2020 [...] Associated Diagnosis Comments WAX TRY IN Routine 05/12/2024 9:[address] ABDOMEN PELVIS WO CONTRAST Routine 05/04/2024 [...] EDT Narrative 05/04/2024 10:11 PM EDT ? [facility] ?[address] ?[place] [address] ? CT Scan Report ? Signed ? Patient: Ayala,Mag ?MR#: [id number] ?? 4 ? : 1960 ?Acct:[id number] ? Age/Sex: 63 / F ?ADM Date: 03/20/25 ? Loc: HO.ED ? Attending Dr: ? Ordering Physician: Mitch Roberts MD ?? Date of Service: 05/04/24 ?? Procedure(s): CT abdomen pelvis wo IV con ?? Accession Number(s): [id number] ? cc: Name,Gregg DIAMOND; Mitch Roberts MD ? Report Number: ?? [id number]: Total DLP = ??608.00 mGy-cm ? CLINICAL [...] osteoarthritis both ?? hips. Degenerative changes include tzseisbr-xl-aoqjyg facet arthropathy, ?? particularly in the lower [...] ? DD/ 08 ? TD/TT: 05/04/242208 ? Supervisor Byproducts: ? Procedure Note Laron, Image - 05/04/[address] [place] [address] CT Scan Report Signed Patient: Eulalia Ayala#: [id number] 4 : 9Acct:[id number] Age/Sex: 63 / FADM Date: 05/04/24 Loc: HO.ED Attending Dr: Ordering Physician: Mitch Roberts MD Date of Service: 05/04/24 Procedure(s): CT abdomen pelvis wo IV con Accession Number(s): [id number] cc: Name,Gregg DIAMOND; Mitch Roberts MD Report Number: [id number]: Total DLP = 608.00 mGy-cm CLINICAL HISTORY: [...] moderate osteoarthritis both hips. Degenerative changes include rrjrhdww-mv-esxjns facet arthropathy, particularly in the lower lumbar [...] in OV> 05/04/242209 DD/ 08 TD/TT: 05/04/242208 Supervisor Byproducts: [facility] External Provider IMG CT PROCEDURES Final Result * US VENOUS DUPLEX LE RT (05/02/2024 12:41 AM EDT) Anatomical Region Laterality Modality Abdomen Ultrasound 05/02/2024 12:4 1 AM EDT Narrative 05/02/2024 12:44 AM EDT ? [facility] ?[address] ?[place] [address] ? Ultrasound Report ? Signed ? Patient: Ayala,Mag ?MR#: [id number] ?? 4 ? : 1960 ?Acct:[id number] ? Age/Sex: 63 / F ?ADM Date: 05/01/24 ? Loc: HO.ED ? Attending Dr: ? Ordering Physician: Stephen Sexton MD ?? Date of Service: 05/01/24 ?? Procedure(s): US venous duplex LE RT ?? Accession Number(s): [id number] ? cc: Stephen Sexton MD; Name,Gregg DIAMOND [...] 0042 ? DD/ 0041 ? TD/TT: 05/02/24 004 ? Supervisor Byproducts: ? Procedure Note Starla Larry - 05/02/[address] [address] Ultrasound Report Signed Patient: Riccardo AyalanMR#: [id number] 4 : 9Acct:[id number] Age/Sex: 63 / FADM Date: 05/01/24 Loc: HO.ED Attending Dr: Ordering Physician: Stephen Sexton MD Date of Service: 05/01/24 Procedure(s): US venous duplex LE RT Accession Number(s): [id number] cc: Stephen Sexton MD; Gregg Gandhi MD CLINICAL HISTORY: atraumatic right leg knee pain [...] signed by Harsha Guzmán MD in OV> 05/02/242 DD/ TD/TT: 05/02/2440 Supervisor Byproducts: us [facility] External Provider IMG US PROCEDURES Edited Result - Final * XR Hip left with Pelvis 1 view (05/02/2024 12:09 AM EDT) Anatomical Region Laterality Modality Lower Extremities, Hip Bilateral Radiograp hic Imaging 05/02/2024 12:0 9 AM EDT Narrative 05/02/2024 12:12 AM EDT ? [facility] ?[address] ?[place] [address] ?XRay Report ? Signed ? Patient: Mag Ayala ?MR#: [id number] ?? 4 ? : 1960 ?Acct:[id number] ? Age/Sex: 63 / F ?ADM Date: 05/01/24 ? Loc: HO.ED ? Attending Dr: ? Ordering Physician: Stephen Sexton MD ?? Date of Service: 05/01/24 ?? Procedure(s): XR hip LT w PEL1V ?? Accession Number(s): [id number] ? cc: Stephen Sexton MD; Gregg Gandhi MD ? CLINICAL HISTORY: left hip pain ? [...] Harsha Guzmán MD in OV> ? 05/02/24 001 ? DD/ 0009 ? TD/TT: 05/02/249 ? Supervisor Byproducts: ? Procedure Note Donotheribertointerpreter, Image - 05/02/[address] [address] XRay Report Signed Patient: Eulalia Ayala#: [id number] 4 : 9Acct:[id number] Age/Sex: 63 / FADM Date: 05/01/24 Loc: HO.ED Attending Dr: Ordering Physician: Stephen Sexton MD Date of Service: 05/01/24 Procedure(s): XR hip LT w PEL1V Accession Number(s): [id number] cc: Stepehn Sexton MD; Name,Gregg DIAMOND CLINICAL HISTORY: left [...] Guzmán MD in OV> 05/02/24 0011 DD/ 0009 TD/TT: 05/02/24 000 Supervisor Byproducts: [facility] External Provider IMG XR PROCEDURES Edited Result - Final * (ABNORMAL) POCT rapid strep A manually resulted (04/10/2024 1:59 PM EST) Rapid Strep A Screen Positive( A) Negative, None Detected Swab 04/10/2024 1:59 PM EST Joann Angel NP POINT OF CARE TEST ENTER/EDIT O RDERABLES Final Result * BI Mammogram Screening Tomosynthesis Bilateral (04/20/2023 12:05 PM EST) Anatomical Region Laterality Modality Breast Bilateral Mammography 04/20/2023 12:0 5 PM EST Narrative 05/05/2023 8:29 AM EDT ? [facility] [place] ? [address] ?[place] [address] ? Mammography Report ? Signed ? Patient: Ayala,Mag ?MR#: [id number] ?? 4 ? : 1960 ?Acct:[id number] ? Age/Sex: 62 / F ?ADM Date: 04/20/23 ? Loc: HO.MAMMO ? Attending Dr: Gregg Name MD ? Ordering Physician: Name,Gregg DIAMOND ?Results: 1Negative ? Date of Service: 04/20/23 ?Follow Up: 1 Year From Orig ?? inal Mammogram ? Procedure(s): MM tomosynthesis screening BI ?? Accession Number(s): [id number] ? cc: Name,Gregg DIAMOND ? EXAMINATION: ?? [...] signed by Alverto Carrington MD in OV> ?05/05/23 0825 ? DD/ 1205 ? TD/TT: ? Supervisor Byproducts: ? Procedure Note Donlokesh, Image - 05/05/2023 [facility] [address] [place] [address] Mammography Report Signed Patient: Eulalia Ayala#: [id number] 4 : 9Acct:[id number] Age/Sex: 62 / FADM Date: 04/20/23 Loc: ISHO Attending Dr: Gregg Gandhi MD Ordering Physician: Gregg Gandhi MDResults: 1Negative Date of Service: 04/20/23Follow Up: 1 Year From Orig inal Mammogram Procedure(s): MM tomosynthesis screening BI Accession Number(s): [id number] cc: Gregg Gandhi MD EXAMINATION: MM SCREENING [...] in OV> 05/05/23 0825 DD/ 1205 TD/TT: Supervisor Byproducts: Gregg Name IMG BI PROCEDURES Final Result * Hm Colonoscopy (08/08/2020 1:49 PM EDT) Colonoscopy Normal Normal Narrative Anastasia Dykes - 08/08/2020 1:49 PM EDT Recommended 5 year follow up [facility] Provider HEALTH MAINTENANCE Final Result * (ABNORMAL) [...] the ?? estimation of LDL-C. ?? Darek MADISON et al. BOO. 2013;310(19): 1066-2038 ?? (http://education.[employer]oo.SoundFit/faq/XWT777) Non-HDL Cholesterol 125 <130 mg/dL (calc) [facility] Comment: For patients with diabetes plus 1 major ASCVD risk ?? factor, treating to a non-HDL-C goal of <100 mg/dL ?? (LDL-C of <70 mg/dL) is considered a therapeutic ?? option. Triglycerides 80 <150 mg/dL [facility] 05/20/2020 9:32 AM EDT us Gregg Name LAB BLOOD ORDERABLES Final Resul t [facility] [address] from Last 3 Months or Most Recently Relevant to Health Maintenance Insurance [facility] Member Subscriber Plan / Payer (Ef fective 2023-Present) Name:Mag Ayala Relation to Subscriber:Self Name:Mag Ayala Payer ID:Not on file Group ID:[id number] Type:Not on file Address: [address] STANDARD Care Teams Parcel Wrapper Relationship Specialty Start Date End Date Name, MD Gregg [address] [place] [address] PCP - General Family Medicine 04/16/15
--- OUTSIDE RECORDS SUMMARY | 2024-05-24 13:15 | XMS_ITS | Encounter Summary ---
Author Organization [employer] [facility] Address [address] [facility] 7t [place] [address] Care Team Providers Care Substation Operator Name Role Phone Name, Gregg DIAOMND Primary Care Provider Encounter Details Date Type Department Care Team (Late st Contact Info) Description 01/14/2022 Abstract [facility]ULT [facility] [address] [place] [address] Dental, Provider, DDS Social History Tobacco Use [...] Description 05/26/2024 8:30 AM EDT Office Visit [facility]ULT [facility] [address] [place] [address] Ayan Calvin DMD [address] [place] [address] 07/17/2024 11:30 AM EDT Office Visit [facility] [address] [place] [address] Gregg Gandhi MD [address] [place] [address] 09/21/2024 8:00 AM EDT Office Visit [facility] [address] [place] [address] Mi, Faye documented as of this encounter [...] on filedocumented in this encounter Care Teams Substation Operator Relationship Specialty Start Date End Date Name, MD Gregg [address] [place] [address] PCP - General Family Medicine 04/16/15 documented as of this encounter
--- OUTSIDE RECORDS SUMMARY | 2024-05-24 13:15 | XMS_ITS | Encounter Summary ---
Author Organization [employer] Address [address] 7[address] [place] [address] Care Team Providers Care Certified Emergency Vehicle Technician Name Role Phone Name, Gregg DIAMOND Primary Care Provider [phone] Reason for Visit * Reason Onset Date Comments broken tooth to hold partial 02/28/2024 Encounter Details Date Type Department Care Team (Late st Contact Info) Description 02/28/2024 Telephone [facility] [address] [place] [address] Ayan Calvin, DMD [address] [place] [address] broken tooth to hold partial Social History [...] Description 05/26/2024 8:30 AM EDT Office Visit [facility] [address] [place] [address] Ayan Calvin, RAMIREZ [address] [place] [address] 07/17/2024 11:30 AM EDT Office Visit [facility] [address] [place] [address] Name, MD Gregg [address] [place] [address] 09/21/2024 8:00 AM EDT Office Visit [facility] [address] [place] [address] Faye Mi documented as of this encounter Visit Diagnoses Not on filedocumented in this encounter Additional Health Concerns Assessment Noted Time PHQ-9 Depression Total Score: 0 09/01/19 24 10:42 AM EDT documented as of this encounter Care Teams Certified Emergency Vehicle Technician Relationship Specialty Start Date End Date Name, MD Gregg [address] [place] [address] PCP - General Family Medicine 04/16/15 documented as of this encounter
--- OUTSIDE RECORDS SUMMARY | 2024-05-24 13:15 | XMS_ITS | Encounter Summary ---
Author Organization [email or web address] Address [address] 7t [place] [address] Care Team Providers Care Experimental Mechanic Electrical Name Role Phone Name, Gregg DIAMOND Primary Care Provider [phone] Encounter Details Date Type Department Care Team ([facility] st Contact Info) Description 10/21/2023 Telephone [facility] [address] [place] [address] Ayan Calvin, DMD [address] [place] [address] Social History Tobacco Use Types Packs/Day Years [...] 8:30 AM EDT Office Visit [facility] [address] [place] [address] Ayan Calvin, RAMIREZ [address] [place] [address] 07/17/2024 11:30 AM EDT Office Visit [facility] [address] [place] [address] Name, MD Gregg [address] [place] [address] 09/21/2024 8:00 AM EDT Office Visit [facility] [address] [place] [address] Faye Mi documented as of this encounter Visit Diagnoses Not on filedocumented in this encounter Additional Health Concerns Assessment Noted Time PHQ-9 Depression Total Score: 0 09/01/19 24 10:42 AM EDT documented as of this encounter Care Teams Experimental Mechanic Electrical Relationship Specialty Start Date End Date Name, MD Gregg [address] [place] [address] PCP - General Family Medicine 04/16/15 documented as of this encounter
--- OUTSIDE RECORDS SUMMARY | 2024-05-24 13:15 | XMS_ITS | Encounter Summary ---
Author Organization [employer] Address [address] 7t [place] [address] Care Team Providers Care Records Supervisor Name Role Phone Name, Gregg DIAMOND Primary Care Provider [phone] Reason for Visit * Reason Comments Med Refill Encounter Details Date Type Department Care Team ([facility] st Contact Info) Description 11/16/2023 Refill [facility] [address] [place], [place] [phone] Yennifer Ramirez MD [address] [place] [address] Flu-like symptoms Social History Tobacco Use Types [...] Description 05/26/2024 8:30 AM EDT Office Visit [facility] [address] [place] [address] Ayan Calvin DMD [address] [place] [address] 07/17/2024 11:30 AM EDT Office Visit [facility] [address] [place] [address] Name, MD Gregg [address] [place] [address] 09/21/2024 8:00 AM EDT Office Visit [facility] [address] [place] [address] Faye Mi documented as of this encounter Visit Diagnoses Diagnosis Flu-like symptoms documented in this encounter Additional Health Concerns Assessment Noted Time PHQ-9 Depression Total Score: 0 09/01/19 24 10:42 AM EDT documented as of this encounter Care Teams Records Supervisor Relationship Specialty Start Date End Date Name, MD Gregg [address] [place] [address] PCP - General Family Medicine 04/16/15 documented as of this encounter
--- OUTSIDE RECORDS SUMMARY | 2024-05-24 13:15 | XMS_ITS | Encounter Summary ---
Author Organization [facility] Address [address] [facility] 7t [place] [address] Care Team Providers Care Deckhand Engineer Name Role Phone Name, Gregg DIAMOND Primary Care Provider [phone] Encounter Details Date Type Department Care Team (Latest Contact Info) Description 12/25/2019 Abstract [facility] CONVERSIONS Dental, Provider, DDS Social History Tobacco [...] 8:30 AM EDT Office Visit [facility] [address] [place] [address] Ayan Calvin DMD [address] [place] [address] 07/17/2024 11:30 AM EDT Office Visit [facility] [address] [place] [address] Name, MD Gregg [address] [place] [address] 09/21/2024 8:00 AM EDT Office Visit [facility] [address] [place] [address] Faye Mi documented as of this encounter Visit Diagnoses Not on filedocumented in this encounter Care Teams Deckhand Engineer Relationship Specialty Start Date End Date Name, MD Gregg [address] [place] [address] PCP - General Family Medicine 04/16/15 documented as of this encounter
--- OUTSIDE RECORDS SUMMARY | 2024-05-24 13:15 | XMS_ITS | Encounter Summary ---
Author Organization [employer] Address [address] [facility] 7t [place] [address] Care Team Providers Care Supervising Broker Name Role Phone Name, Gregg DIAMOND Primary Care Provider [phone] Reason for Visit * Reason Onset Date Comments verbal order 05/22/2024 Encounter Details Date Type Department Care Team ([facility] st Contact Info) Description 05/22/2024 Telephone [facility] [address] [place] [address] Name, MD Gregg [address] [place] [address] verbal order Social History Tobacco Use Types Packs/Day Years [...] Telephone Encounter - Maura Taylor RN - 05/23/2024 9:32 AM EDT TC placed to [place] with [facility] to inform it is okay for them to start PT tomorrow. Spoke to another staff member with [facility] and advised it is okay for pt to begin physicaltherapy tomorrow instead of today. Staff verbalized understanding and states they will inform [place]. * Telephone Encounter - Shubham Booth - 05/22/2024 1:53 PM EDT Tc from [place] with [facility] updating pt will start Physical therapy tomorrow NOT today so will need a new order. Milly [phone] opt 2 * Telephone Encounter - Maura Taylor RN - 05/22/2024 11:50 AM EDT TC placed to [place] with [facility] to inform that provider said they are okay to do PT. Paper Core Machine Operator spoke with Katina and informed PCP okay with PT. Katina verbalized understanding and denies questions at this time. * Telephone Encounter - Maura Taylor RN - 05/22/2024 11:28 AM EDT TC placed to [place] with [facility] regarding home care verbal order. Ely states they are requesting home care services for physical therapy. Ely states the hospital recommended that the pt havehome PT and is requesting verbal order from PCP. Message forwarded to PCP to review and advise. * Telephone Encounter - Marla Magallon - 05/22/2024 8:13 AM EDT Tc from [facility] with [facility] needing Home Care verbal order starting today. [phone] option 2 documented in this encounter Plan of Treatment Upcoming Encounters Date Type Department Care Team (Late st Contact Info) Description 05/26/2024 8:30 AM EDT Office Visit [facility] [address] [place] [address] Ayan Calvin, RAMIREZ [address] [place] [address] 07/17/2024 11:30 AM EDT Office Visit [facility] [address] [place] [address] Name, MD Gregg [address] [place] [address] 09/21/2024 8:00 AM EDT Office Visit [facility] [address] [place] [address] Faye Mi documented as of this encounter Visit Diagnoses Not on filedocumented in this encounter Additional Health Concerns Assessment Noted Time PHQ-9 Depression Total Score: 0 09/01/19 24 10:42 AM EDT documented as of this encounter Care Teams Supervising Broker Relationship Specialty Start Date End Date Name, MD Gregg [address] [place] [address] PCP - General Family Medicine 04/16/15 documented as of this encounter
--- OUTSIDE RECORDS SUMMARY | 2024-05-24 13:15 | XMS_ITS | Encounter Summary ---
Author Organization [employer] Address [address] [facility] 7t [place] [address] Care Team Providers Care Vault Service Mechanic Name Role Phone Name, Gregg DIAMOND Primary Care Provider [phone] Reason for Visit * Reason Onset Date Comments Durable Medical Equipment 05/15/2024 Call Back Request 05/15/2024 Encounter Details Date Type Department Care Team ([facility] st Contact Info) Description 05/15/2024 Telephone [facility] [address] [place] [address] Name, MD Gregg [address] [place] [address] Durable Medical Equipment; Call Back Request Social History Tobacco Use Types Packs/Day [...] * Telephone Encounter - Sheridan Stringer - 05/24/2024 10:55 AM EDT Tc from Pt calling to inform [facility] reached out to her that script for scooter is needed before Wednesday05/26/24 to be able to do her evaluation, if not case will be closed. * Telephone Encounter - Marla Magallon - 05/23/2024 9:06 AM EDT Tc from pt stating needs a rx to be sent to [facility] so they can process the order for the electric scooter and go to evaluate pt at home. Pt states need it krzysztof because she can't walk. * Telephone Encounter - Valentina Beltran - 05/19/2024 9:36 AM EDT Rx for Wedge pillow faxed to [facility] for processing. Confirmation received and scanned into media. If patient calls to check status on above, please advise them to contact [facility] patient care coordinator . * Telephone Encounter - Valentina Beltran - 05/18/2024 3:05 PM EDT [employer] Console Operator Track called pt to confirm DME request. Pt states items needed are a 3-wheeled rollator walker andelectric scooter. Pt also requested wedge pillow which has already been processed. Rx generated for scooter and walker and placed on pcp desk for review and signature. * Telephone Encounter - Sheridan Stringer - 05/18/2024 10:11 AM EDT Tc from pt requesting a call back to further discuss last message request. * Telephone Encounter - Shubham Booth - 05/16/2024 3:40 PM EDT Tc from pt requesting status of prior message. Pt inform to please FAX over script with supporting documentation so DME RX don't get deny. [facility] FAX [phone] * Telephone Encounter - Shubham Booth - 05/15/2024 11:44 AM EDT Tc from pt requesting a callback from [place] islander speaker LYLY mack will like to explain descriptions details for DME RX for scooter so it could be FAX to [facility]. Pt please asked not to call with small products ii assembler as she will like to speak directly to [place] islander speaker LYLY [phone] documented in this encounter Plan of Treatment Upcoming Encounters Date Type Department Care Team (Late st Contact Info) Description 05/26/2024 8:30 AM EDT Office Visit [facility] [address] [place] [address] Ayan Calvin, DMD [address] [place] [address] 07/17/2024 11:30 AM EDT Office Visit [facility] [address] [place] [address] Name, MD Gregg [address] [place] [address] 09/21/2024 8:00 AM EDT Office Visit [facility] [address] [place] [address] Faye Mi documented as of this encounter Visit Diagnoses Not on filedocumented in this encounter Additional Health Concerns Assessment Noted Time PHQ-9 Depression Total Score: 0 09/01/19 24 10:42 AM EDT documented as of this encounter Care Teams Vault Service Mechanic Relationship Specialty Start Date End Date NameGregg MD [address] [place] [address] PCP - General Family Medicine 04/16/15 documented as of this encounter
--- OUTSIDE RECORDS SUMMARY | 2024-05-24 13:15 | XMS_ITS | Encounter Summary ---
Author Organization [employer] Address [address] 7t [place] [address] Care Team Providers Care Celery Wrapper Name Role Phone Name, Gregg DIAMOND Primary Care Provider [phone] Reason for Visit * Reason Onset Date Comments PT1 02/25/2023 Encounter Details Date Type Department Care Team ([facility] st Contact Info) Description 02/25/2023 Telephone [facility] [address] [place] [address] Name, MD Gregg [address] [place] [address] PT1 Social History Tobacco Use Types Packs/Day [...] - valid through 06/2023 [facility] neurology - [id number] authorized Dr Chakraborty - [id number] pending [facility] Gen Surg - [id number] authorized [facility] - [id number] authorized Renal & Trans - [id number] authorized ENT - [id number] pending [facility] medical office - [id number] pending * Telephone Encounter - Cameron Su - 02/25/2023 4:29 PM EST PT1 needed Date: N/A Time: N/A Visits: 2 or 3 monthly Address: [address] [facility] Facility: [facility] Cardiovascular Wheel Chair: No Note Keeper Needed: No PT1 needed Date: N/A Time: N/A Visits: 2 or 3 Monthly Address: [address] [facility] Facility: [facility] Neurology Wheel No Note Keeper Needed: No PT1 needed Date: N/A Time: N/A Visits: 2 or 3 Monthly Address: [address] [facility] Facility: Dr Chakraborty Wheel Chair: No Note Keeper Needed: No PT1 needed Date: N/A Time: N/A Visits: 2 or 3 Monthly Address: [address] [place] [address] [place] Facility: [facility] General Surgery Wheel Chair: No Note Keeper Needed: No PT1 needed Date: N/A Time: N/A Visits: 2 or 3 Monthly Address: [address] [place] [address] Facility: [facility] Wheel Chair: No Note Keeper Needed: No PT1 needed Date: N/A Time: N/A Visits: 2 or 3 monthly Address: [address] [facility] Facility: [facility] Wheel Chair: No Note Keeper Needed: No PT1 needed Date: N/A Time: N/A Visits: 2 or 3 monthly Address: [address] [facility] Facility: [facility] Wheel Chair: No Note Keeper Needed: No PT1 needed Date: N/A Time: N/A Visits: 2 or 3 Monthly Address: [address] [facility] [address] Cesia DESOUZA Facility: [facility] medical Office Wheel Chair: No Note Keeper Needed: No PT1 needed Date: N/A Time: N/A Visits: 2 or 3 Monthly Address: [address] [place] [address] Facility: [facility] Wheel Chair: No Note Keeper Needed: No documented in this encounter Plan of Treatment Upcoming Encounters Date Type Department Care Team (Late st Contact Info) Description 05/26/2024 8:30 AM EDT Office Visit [facility] [address] [place] [address] Ayan Calvin, RAMIREZ [address] [place] [address] 07/17/2024 11:30 AM EDT Office Visit [facility] [address] [place] [address] Name, MD Gregg [address] [place] [address] 09/21/2024 8:00 AM EDT Office Visit [facility] [address] [place] [address] Faye Mi documented as of this encounter Visit Diagnoses Not on filedocumented in this encounter Additional Health Concerns Assessment Noted Time PHQ-9 Depression Total Score: 7 03/04/19 23 9:17 AM EST documented as of this encounter Care Teams Celery Wrapper Relationship Specialty Start Date End Date Name, MD Gregg [address] [place] [address] PCP - General Family Medicine 04/16/15 documented as of this encounter
--- OUTSIDE RECORDS SUMMARY | 2024-05-24 13:16 | XMS_ITS | Encounter Summary ---
Author Organization [email or web address] [facility] Address [address] [facility] 7t [place] [address] Care Team Providers Care Missile Inspector Preflight Name Role Phone Name, Gregg DIAMOND Primary Care Provider [phone] Reason for Visit * Reason Comments Med Refill Encounter Details Date Type Department Care Team ( Contact Info) Description 10/14/[address] [facility] MEDIC[facility] [address] [place], [place] [phone] Name, MD Gregg [address] [place] [address] Osteoporosis, unspecified osteoporosis type, unspecified pathological fracture [...] 05/26/2024 8:30 AM EDT Office Visit [facility] ADULT DENTAL [address] [place] [address] Ayan Calvin, RAMIREZ [address] [place], [place] [phone] 07/17/2024 11:30 AM EDT Office Visit [facility] MED[facility] [address] [place] [address] Name, MD Gregg [address] [place] [address] 09/21/2024 8:00 AM EDT Office Visit [facility] D[facility] [address] [place] [address] Faye Mi documented as of this encounter Visit Diagnoses Diagnosis Osteoporosis, unspecified osteoporosis type, unspecified pathological fracture presence documented in this encounter Additional Health Concerns Assessment Noted Time PHQ-9 Depression Total Score: 7 03/04/19 23 9:17 AM EST documented as of this encounter Care Teams Missile Inspector Preflight Relationship Specialty Start Date End Date Name, MD Gregg [address] [place] [address] PCP - General Family Medicine 04/16/15 documented as of this encounter
--- OUTSIDE RECORDS SUMMARY | 2024-05-24 13:16 | XMS_ITS | Encounter Summary ---
Author Organization [employer] Address [address] [facility] [address] 7t [place] [address] Care Team Providers Care Industrial Roofer Helper Name Role Phone Name, Gregg DIAMOND Primary Care Provider [phone] Reason for Visit * Reason Comments Med Refill Encounter Details Date Type Department Care Team ([facility] st Contact Info) Description 07/13/2023 Refill [facility] [address] [place] [address] Ban Granados FNP [address] [place] [address] Social History Tobacco Use Types Packs/Day Years [...] t he electric, gas, oil or water [employer] threatened to shut off services in your [...] 3:57 PM EDT Pt came into the [facility] asking for refills on Wegomy meds. She wants Dr. Granados to send the refill in two days to be able to slat pickler in pharmacy. 07/13/23 documented in this encounter Plan of Treatment Upcoming Encounters Date Type Department Care Team (Late st Contact Info) Description 05/26/2024 8:30 AM EDT Office Visit [facility] ADULT D[facility] [address] [place] [address] Ayan Calvin, RAMIREZ [address] [place] [address] 07/17/2024 11:30 AM EDT Office Visit [facility] MED[facility] [address] [place] [address] Name, MD Gregg [address] [place] [address] 09/21/2024 8:00 AM EDT Office Visit [facility] ADULT DENT[facility] [address] [place] [address] Faye Mi documented as of this encounter Visit Diagnoses Not on filedocumented in this encounter Additional Health Concerns Assessment Noted Time PHQ-9 Depression Total Score: 7 03/04/19 23 9:17 AM EST documented as of this encounter Care Teams Industrial Roofer Helper Relationship Specialty Start Date End Date Gregg Gandhi MD [address] [place] [address] PCP - General Family Medicine 04/16/15 documented as of this encounter
--- OUTSIDE RECORDS SUMMARY | 2024-05-24 13:16 | XMS_ITS | Data Portability ---
Author Organization [place] - [facility], Allergy Address [address] [place] [id number] Assessment No assessment recorded. Plan of Treatment Reminders Order Date Submit Date Provider Last Modified By Organization Details Last Modified Time Details Appointments Establish ed 15 2024 01:00P M JOSUE SHEPHERD MD Not available Not available Not available Lab None recorded. Referral None recorded. Procedures None recorded. Surgeries None recorded. Imaging None recorded. Medication Orders None recorded. Patient TargetsNo targets recorded. Patient InstructionsNo instructions recorded. Reason for Referral None Reported. Problems Name Problem SNOMED Code Status Onset Date Resolution Date Notes Provider Name and Address Organization Details Recorded Time Otorrhea of right ear [id number] Active 2020 Otorrhea, right ear; Note: Date Diagnosed : 04/15/2020 9:41 AM (H92.11) Not Available [facility] 4 02:41:49 Sensorine ural hearing loss 61120058 Active 2014 Sensorine ural hearing loss, unilatera l, right ear, with unrestric peggy hearing on the contralat eral side; Note: Date Diagnosed : 5 1:13 PM (H90.41) Not Available [facility] 4 02:41:50 Impacted cerumen of bilateral ears [id number] 05358 Active 2015 Impacted cerumen, bilateral ; Note: Date Diagnosed : 08/12/2015 12:36 PM (H61.23) Not Available [facility] 4 02:41:46 Impacted cerumen 42050745 Active 2014 Disorders of external ear: Impacted cerumen; Note: Date Diagnosed : 11/12/2014 9:15 PM (380.4) Not Available [facility] 4 02:41:52 Infective otitis externa of left ear [id number] 46081 Active 2014 Other infective otitis externa, left ear; Note: Date Diagnosed : 11/15/2014 4:59 PM (H60.392) Not Available [facility] 4 02:41:47 Impacted cerumen in left ear 03263428418 77169 Active 2014 Impacted cerumen, left ear; Note: Date Diagnosed : 11/15/2014 4:59 PM (H61.22) Not Available [facility] 4 02:41:51 Mixed conductiv e and sensorine ural hearing loss of left ear 32126250290 107 Active 2014 Mixed conductiv e and sensorine ural hearing loss, unilatera l, left ear, with unrestric peggy hearing on the contralat eral side; Note: Date Diagnosed : 11/15/2014 5:00 PM (H90.72) Not Available [facility] 4 02:41:46 Dysphonia 88254661 Active 2016 Dysphonia ; Note: Date Diagnosed : 05/13/2016 10:26 AM (R49.0) Not Available [facility] 4 02:41:43 Sensorine ural hearing loss of bilateral ears 623339789 Active 2016 Sensorine ural hearing loss, bilateral ; Note: Date Diagnosed : 7 4:52 PM (H90.3) Sensori neural hearing loss, bilateral ; Note: Date Diagnosed : 08/12/2015 11:37 AM (H90.3) ; Start Date : 6 Not Available [facility] 4 02:41:48 Dizziness and giddiness 364205879 Active 2016 Dizziness and giddiness ; Note: Date Diagnosed : 08/17/2016 1:43 PM (R42) Not Available [facility] 4 02:41:51 Chronic pharyngit is 052852 Active 2016 Chronic sore throat; Note: Date Diagnosed : 05/13/2016 10:24 AM (J31.2) Not Available [facility] 4 02:41:44 Unilatera l sensorine ural hearing loss with unrestric peggy hearing on the contralat eral side Active 2014 Sensorine ural HL, unilatera l; Note: Date Diagnosed : 11/12/2014 9:56 PM (389.15) Not Available [facility] 4 02:41:44 Benign paroxysma l positiona l vertigo 350831292 Active 2020 Benign paroxysma l vertigo, left ear; Note: Date Diagnosed : 1 9:47 AM (H81.12) Not Available [facility] 4 02:41:53 Itching of skin 493171276 Active 2016 Other pruritus; Note: Date Diagnosed : 04/10/2016 11:46 AM (L29.8) Not Available [facility] 4 02:41:47 Infective otitis externa 38772234 Active 2014 Acute otitis externa; Note: Date Diagnosed : 11/12/2014 9:55 PM (380.10) Not Available [facility] 4 02:41:48 Mixed conductiv e and sensorine ural hearing loss of right ear 70951872241 105 Active 2014 Mixed conductiv e and sensorine ural hearing loss, unilatera l, right ear, with unrestric peggy hearing on the contralat eral side; Note: Date Diagnosed : 11/15/2014 5:00 PM (H90.71) Not Available [facility] 4 02:41:49 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 hearing on the contralat eral side Active 2014 Mixed hearing loss, unilatera l; Note: Date Diagnosed : 11/12/2014 9:56 PM (389.21) Not Available [facility] 4 02:41:46 Problem Notes None recorded. Medical Equipment None Reported. Medications Name Sig Start Date Stop Date Status Note LastModified by Organization Details LastModified Time medbox status USE DIRECTED active Not Available Not Available No t Available cyclobenz aprine 10 mg tablet 2018 active Medicati on ID: [id number] D uration Value: 10 Brand Name: cycloben zaprine Send Method: E-Prescr ibed Sub s Allowed: subs OK Speci al Instruct ion: TAKE 1 TABLET THREE TIMES DAILY Me dication GenericN galindo: cycloben zaprine Not Available Not Available Not Available amoxicill in 500 mg capsule TAKE 1 CAPSULE BY MOUTH EVERY 8 HOURS FOR 7 DAYS 03/20 completed Not Available Not Available Not Available hydrocort isone 0.5 % topical cream APPLY TOPICALL Y TO THE AFFECTED AREA(S) TWICE DAILY active Not Available Not Available No t Available Augmentin 875 mg-125 mg tablet 1 tablet by mouth 03/20 completed Medicati on ID: [id number] Du ration Value: 7 Brand Name: Augmenti n Send Method: E-Prescr ibed Sub s Allowed: subs OK Medic ationGen ericName : Augmenti n Not Available Not Available Not Available Qvar 80 mcg/actua tion Metered Aerosol oral inhaler 03/20 completed Medicati on ID: [id number] D uration Value: 30 Brand Name: Qvar Jose d Method: E-Prescr ibed Sub s Allowed: subs OK Medic ationGen ericName : Qvar Not Available Not Available Not Available estazolam 2 mg tablet TAKE 1 TABLET BY MOUTH AT BEDTIME active Not Available Not Available No t Available fluticaso ne 250 mcg-salme terol 50 mcg/dose blistr powdr for inhalatio n INHALE 1 PUFF BY MOUTH TWICE DAILY FOR ASTHMA RINSE MOUTH AFTER USING. active Not Available Not Available No t Available acetamino phen 325 mg tablet TAKE 2 TABLETS BY MOUTH EVERY 6 HOURS FOR 7 DAYS 03/20 completed Not Available Not Available Not Available estazolam 1 mg tablet TAKE 1 TABLET BY MOUTH AT BEDTIME active Not Available Not Available No t Available perphenaz ine 2 mg tablet 03/21 completed Medicati on ID: [id number] D uration Value: 30 Reason: () Brand Name: dorene rubio Method: E-Prescr ibed Sub s Allowed: subs [place] Medic ationGen ericName : perphena nikhil Not Available Not Available Not Available ipratropi um 0.5 mg-albute rol 3 mg (2.5 mg base)/3 mL nebulizat ion soln 03/20 completed Medicati on ID: [id number] D uration Value: 7 Brand Name: ipratrop ium-albu terol Se nd Method: E-Prescr ibed Sub s Allowed: subs [place] Medic ationGen ericName : ipratrop ium-albu terol Not Available Not Available Not Available cetirizin e 10 mg tablet TAKE 1 TABLET BY MOUTH EVERY DAY NEEDED FOR ALLERGIE S 03/20 completed Not Available Not Available Not Available azithromy eulalia 250 mg tablet TAKE 2 TABLETS BY MOUTH ON DAY 1, THEN TAKE 1 TABLET DAILY ON DAYS 2-5 03/20 completed Not Available Not Available Not Available ibuprofen 800 mg tablet TAKE 1 TABLET BY MOUTH EVERY 8 HOURS NEEDED FOR PAIN 03/20 completed Not Available Not Available Not Available sucralfat e 1 gram tablet TAKE 1 TABLET BY MOUTH THREE TIMES DAILY NEEDED FOR FOR PAIN ABDOMINA L 03/20 completed Not Available Not Available Not Available venlafaxi ne 25 mg tablet TAKE 1 TABLET BY MOUTH EVERYDAY AT NOON 03/20 completed Not Available Not Available Not Available ondansetr on HCl 4 mg tablet TAKE 1 TABLET BY MOUTH EVERY DAY NEEDED FOR NAUSEA AND VOMITING 03/20 completed Not Available Not Available Not Available prednison e 20 mg tablet TAKE 2 TABLETS BY MOUTH EVERY DAY FOR 5 DAYS 03/20 completed Not Available Not Available Not Available Maxidex 0.1 % eye drops,rigo pension 2 drop 03/20 completed Medicati on ID: [id number] Du ration Value: 7 Prescri bed By Name: Josue johnson MD Brand Name: Maxidex Send Method: E-Prescr ibed Sub s Allowed: subs OK Medic ationGen ericName : Maxidex Not Available Not Available Not Available alendrona te 70 mg tablet take 1 tablet by mouth once a week with 6 to 8 oz of water 30 min before first food of day. do not lie down for 30 minutes active Not Available Not Available No t Available doxepin 75 mg capsule TAKE 1 CAPSULE BY MOUTH AT BEDTIME active Not Available Not Available No t Available Debrox 6.5 % ear drops 03/20 completed Medicati on ID: [id number] Br and Name: Debrox S end Method: E-Prescr ibed Sub s Allowed: subs [place] Medic ationGen ericName : Debrox Not Available Not Available Not Available metronida zole 500 mg tablet TAKE 1 TABLET BY MOUTH THREE TIMES DAILY 03/20 completed Not Available Not Available Not Available phentermi ne 37.5 mg tablet TAKE 1 TABLET BY MOUTH EVERY MORNING BEFORE BREAKFAS T 03/20 completed Not Available Not Available Not Available Pred Mild 0.12 % eye drops,rigo pension 3 drop 03/20 completed Medicati on ID: [id number] D uration Value: 10 Brand Name: Pred Mild Sen d Method: E-Prescr ibed Sub s Allowed: subs [place] Medic ationGen ericName : Pred Mild Not Available Not Available Not Available omeprazol e 40 mg capsule,d elayed release TAKE 1 CAPSULE BY MOUTH EVERY MORNING BEFORE MEALS DO NOT BREAK, CRUSH, DISSOLVE OR CHEW active Not Available Not Available No t Available aspirin 81 mg tablet,de layed release TAKE 1 TABLET BY MOUTH AT BEDTIME 03/20 completed Not Available Not Available Not Available acetamino phen 500 mg tablet TAKE 1 TABLET BY MOUTH EVERY 8 HOURS NEEDED FOR MILD OR MODERATE PAIN FOR UP TO 5 DAYS active Not Available Not Available No t Available vancomyci n 125 mg capsule TOME 1 C PSULA POR V A ORAL CUATRO VECES AL D A POR 10 D 03/20 completed Not Available Not Available Not Available acetamino phen ER 650 mg tablet,ex tended release TAKE 1 TABLET BY MOUTH EVERY 8 HOURS NEEDED FOR PAIN FOR UP TO 10 DAYS. DO NOT BREAK, CRUSH, DISSOLVE OR CHEW. 03/20 completed Not Available Not Available Not Available levothyro xine 100 mcg tablet TAKE 1 TABLET BY MOUTH EVERY MORNING active Not Available Not Available No t Available oxycodone -acetamin ophen 5 mg-325 mg tablet 03/21 completed Medicati on ID: [id number] D uration Value: 28 Reason: () Brand Name: oxycodon e-acetam inophen Send Method: E-Prescr ibed Sub s Allowed: subs OK Medic ationGen ericName : oxycodon e-acetam inophen Not Available Not Available Not Available ofloxacin 0.3 % ear drops Apply 5 drop into both ears twice a day 03/20 completed Medicati on ID: [id number] D uration Value: 7 Brand Name: ofloxaci n Send Method: E-Prescr ibed Sub s Allowed: subs OK Medic ationGen ericName : ofloxaci n Not Available Not Available Not Available magnesium oxide 400 mg (241.3 mg magnesium ) tablet TAKE 1 TABLET BY MOUTH AT NOON WITH FOOD active Not Available Not Available No t Available methocarb maggi 750 mg tablet TAKE 2 TABLETS BY MOUTH FOUR TIMES DAILY NEEDED FOR PAIN 03/20 completed Not Available Not Available Not Available Klonopin 0.5 mg tablet 12/22 completed Medicati on ID: [id number] Re ason: () Brand Name: Klonopin Send Method: E-Prescr ibed Sub s Allowed: subs OK Medic ationGen ericName : Klonopin Not Available Not Available Not Available meclizine 25 mg tablet TAKE 1 TABLET BY MOUTH TWICE DAILY NEEDED active Not Available Not Available No t Available baclofen 10 mg tablet 2018 active Medicati on ID: [id number] D uration Value: 30 Brand Name: baclofen Send Method: E-Prescr ibed Sub s Allowed: subs OK Speci al Instruct ion: TAKE 1 TABLET TWICE DAILY Me dication GenericN galindo: baclofen Not Available Not Available Not Available doxepin 100 mg capsule 09/30 completed Medicati on ID: [id number] Re ason: () Brand Name: doxepin Send Method: E-Prescr ibed Sub s Allowed: subs OK Medic ationGen ericName : doxepin Not Available Not Available Not Available oseltamiv ir 75 mg capsule TAKE 1 CAPSULE BY MOUTH TWICE DAILY FOR 5 DAYS 03/20 completed Not Available Not Available Not Available levothyro xine 125 mcg tablet 03/21 completed Medicati on ID: [id number] D uration Value: 30 Reason: () Brand Name: levothyr oxine Se nd Method: E-Prescr ibed Sub s Allowed: subs OK Medic ationGen ericName : levothyr oxine Not Available Not Available Not Available lidocaine 5 % topical patch APPLY 1 PATCH TOPICALL Y TO SKIN, LEAVE ON FOR 12 HOURS AND OFF FOR 12 HOURS DIRECTED 03/20 completed Not Available Not Available Not Available oxycodone 5 mg capsule 1 capsule by mouth every six hours as needed for pain 03/21 completed Medicati on ID: [id number] Re ason: () Brand Name: oxycodon e Send Method: E-Prescr ibed Sub s Allowed: subs OK Medic ationGen ericName : oxycodon e Not Available Not Available Not Available clotrimaz ole 1 % topical solution 03/20 completed Medicati on ID: [id number] P rescribe d By Name: Josue johnson MD Brand Name: clotrima zole Sen d Method: E-Prescr ibed Sub s Allowed: subs OK Speci al Instruct ion: 5 drops to affected ear twice a day Medi cationGe nericNam e: clotrima zole Not Available Not Available Not Available perphenaz ine 4 mg tablet TAKE 1 TABLET BY MOUTH TWICE DAILY AT NOON AND IN THE EVENING 03/20 completed Not Available Not Available Not Available Advair Diskus 500 mcg-50 mcg/dose powder for inhalatio n INHALE 1 PUFF TWICE DAILY. RINSE MOUTH AFTER USING. (for asthma) active Not Available Not Available No t Available docusate sodium 100 mg capsule TAKE 1 CAPSULE BY MOUTH EVERY DAY 03/20 completed Not Available Not Available Not Available omeprazol e 20 mg capsule,d elayed release 03/20 completed Medicati on ID: [id number] D uration Value: 30 Brand Name: omeprazo le Send Method: E-Prescr ibed Sub s Allowed: subs OK Speci al Instruct ion: TAKE 1 CAPSULE BY MOUTH EVERY DAY 30 MINUTES TO 1 HOUR BEFORE MEALS Me dication GenericN galindo: omeprazo le Not Available Not Available Not Available Cortispor in 3.5 mg/g-10,0 00 unit/g-0. 5 % topical cream 12/22 completed Medicati on ID: [id number] Re ason: () Brand Name: Cortispo rin Send Method: E-Prescr ibed Sub s Allowed: subs OK Medic ationGen ericName : Cortispo rin Not Available Not Available Not Available topiramat e 200 mg tablet 03/20 completed Medicati on ID: [id number] D uration Value: 30 Brand Name: topirama te Send Method: E-Prescr ibed Sub s Allowed: subs OK Medic ationGen ericName : topirama te Not Available Not Available Not Available pyridoxin e (vitamin B6) 100 mg tablet TAKE 2 TABLETS BY MOUTH ONCE DAILY AT NOON active Not Available Not Available No t Available gabapenti n 100 mg capsule TAKE 1 CAPSULE BY MOUTH THREE TIMES DAILY active Not Available Not Available No t Available ibuprofen 600 mg tablet 03/20 completed Medicati on ID: [id number] D uration Value: 20 Brand Name: ibuprofe n Send Method: E-Prescr ibed Sub s Allowed: subs OK Speci al Instruct ion: TAKE 1 TABLET BY MOUTH THREE TIMES DAILY WITH FOOD Med icationG enericNa me: ibuprofe n Not Available Not Available Not Available polyethyl telly glycol 3350 17 gram/dose oral powder TAKE 17 GM MIXED IN 8 OUNCES OF WATER ONCE DAILY 03/20 completed Not Available Not Available Not Available levofloxa eulalia 500 mg tablet TAKE 1 TABLET BY MOUTH EVERY DAY 03/20 completed Not Available Not Available Not Available ipratropi um bromide 42 mcg (0.06 %) nasal spray USE 2 SPRAYS IN EACH NOSTRIL TWICE DAILY NEEDED FOR ALLERGIE S OR RHINITIS 03/20 completed Not Available Not Available Not Available morphine 15 mg immediate release tablet TAKE 1 TABLET BY MOUTH TWICE DAILY NEEDED FOR PAIN 03/20 completed Not Available Not Available Not Available Cortispor in-TC 3.3 mg-3 mg-10 mg-0.5 mg/mL ear drops,rigo pension 4 drop into left ear 03/20 completed Medicati on ID: [id number] D uration Value: 7 Brand Name: Cortispo rin-TC S end Method: E-Prescr ibed Sub s Allowed: subs OK Medic ationGen ericName : Cortispo rin-TC Not Available Not Available Not Available ondansetr on 4 mg disintegr ating tablet DISSOLVE 1 TABLET ENCIMA DE LENGUA EVERY 6 HOURS NEEDED FOR NAUSEA AND VOMITING 03/20 completed Not Available Not Available Not Available Ventolin HFA 90 mcg/actua tion aerosol inhaler INHALE 2 PUFFS BY MOUTH EVERY 6 HOURS NEEDED FOR WHEEZING active Not Available Not Available No t Available TobraDex 0.3 %-0.1 % eye drops,rigo pension 03/20 completed Medicati on ID: [id number] D uration Value: 14 Brand Name: TobraDex Send Method: E-Prescr ibed Sub s Allowed: subs OK Speci al Instruct ion: Instill 3 drops in the affect ear BID for 10 days Med icationG enericNa me: TobraDex Not Available Not Available Not Available Flovent HFA 220 mcg/actua tion aerosol inhaler 03/20 completed Medicati on ID: [id number] D uration Value: 60 Brand Name: Flovent HFA Send Method: E-Prescr ibed Sub s Allowed: subs OK Speci al Instruct ion: INHALE 1 PUFFS TWICE DAILY Me dication GenericN galindo: Flovent HFA Not Available Not Available Not Available chlorhexi dine gluconate 0.12 % mouthwash SWISH 15 ML IN THE MOUTH OR THROAT FOR 30 SECONDS THEN SPIT OUT THREE TIMES DAILY IN THE MORNING, AT NOON, AND AT BEDTIME FOR UP TO 5 DAYS active Not Available Not Available No t Available DermOtic Oil 0.01 % ear drops Instill 5 drop twice a day as directed 03/20 completed Medicati on ID: [id number] D uration Value: 7 Brand Name: DermOtic Oil Send Method: E-Prescr ibed Sub s Allowed: subs OK Medic ationGen ericName : DermOtic Oil Not Available Not Available Not Available cholecalc iferol (vitamin D3) 25 mcg (1,000 unit) tablet TAKE 1 TABLET BY MOUTH EVERYDAY AT NOON active Not Available Not Available No t Available hydrochlo rothiazid e 12.5 mg tablet TAKE 1 TABLET BY MOUTH EVERYDAY AT NOON active Not Available Not Available No t Available diclofena c 1 % topical gel APPLY 2 GRAMS TOPICALL Y TO AFFECTED AREA(S) FOUR TIMES DAILY 03/20 completed Not Available Not Available Not Available Tirosint 125 mcg capsule 11/12 completed Medicati on ID: [id number] Re ason: () Brand Name: Tirosint Send Method: E-Prescr ibed Sub s Allowed: subs OK Medic ationGen ericName : Tirosint Not Available Not Available Not Available Banophen 50 mg capsule TOME 1 C PSULA POR V A ORAL CADA OCHO HORAS CUANDO SEA NECESARI O FOR ITCHING 03/20 completed Not Available Not Available Not Available Asmanex HFA 200 mcg/actua tion aerosol inhaler INHALE 1 PUFF BY MOUTH TWICE DAILY. RINSE MOUTH AFTER USING. active Not Available Not Available No t Available Wegovy 1.7 mg/0.75 mL subcutane ous pen injector INJECT ONE PEN (=1.7MG) SUBCUTAN EOUSLY ONCE A WEEK DIRECTED 03/20 completed Not Available Not Available Not Available Wegovy 1 mg/0.5 mL subcutane ous pen injector INJECT ONE PEN (=1MG) SUBCUTAN EOUSLY ONCE A WEEK DIRECTED 03/20 completed Not Available Not Available Not Available Wegovy 0.25 mg/0.5 mL subcutane ous pen injector INJECT 0.25mg (=1 PEN) SUBCUTAN EOUSLY ONCE PER WEEK ON THE ON THE SAME DAY 03/20 completed Not Available Not Available Not Available Wegovy 0.5 mg/0.5 mL subcutane ous pen injector INJECT ONE PEN (=0.5MG) SUBCUTAN EOUSLY ONCE A WEEK DIRECTED 03/20 completed Not Available Not Available Not Available Zepbound 5 mg/0.5 mL subcutane ous pen injector INJECT ONE PEN (=5MG) SUBCUTAN EOUSLY ONCE A WEEK DIRECTED active Not Available Not Available No t Available Vitals Date Recorded Body height Body mass index (BMI) Body weight Provider Name and Address Organization Details Last Updated DateTime 03/20/2024 160.02 cm 30.8 kg/m2 77928.07 g Natacha Childs [place] - [facility] 03/20/2024 13:01:51 Social History None recorded. Functional Status None recorded. Mental Status None recorded. Family History Nothing Reported. Medical History No medical history recorded. Gynecological HistoryNo gynecological history recorded. Obstetrics History GPAL:G 0 P 0 0 0 0 Past Encounters Encounter ID Performer Location Encounter Start Date Encounter Closed Date Diagnosis/Indication Diagnosis SNOMED-CT Code Diagnosis ICD10 Code Diagnosis Note [id number] JOSUE SHEPHERD MD [facility] [address] [phone] 03/20/2024 12:52:27 03/20/2024 13:16:19 Impacted cerumen of bilateral ears [id number] 457670 H61.23 She has very narrow canals and gets debris impacted against the TM bilaterall y. Cerumen removed and tolerated well. Health Concerns Section Related Observation LastModified by Organization Detai ls LastModified Time None Recorded Concern Status LastModified by Organization Details LastModified Time None Recorded Advance Directives Directive None Recorded Payers Encounter Date Sequence Insurance Name Policy Number Policy Schrader Covered Member ID Schrader Member ID Guarantor Name 03/20/2024 1 [facility] - DOS ON OR AFTER 2022 - LONGTERM OPTIONS AND ONE CARE (MEDICARE REPLACEMENT/ADV ANTAGE - PPO) Mag Ayala [id number] Mag Ayala Notes Date Note Type Note Provider Name and Address Organization Details Recorded Time 03/20/2024 text/html Dizziness now and then, having some ear itching. JOSUE SHEPHERD MD [address] [place] [address], [phone], [facility] - [facility] 03/20/2024 17:18:34 OBGyn Episode No OBEpisode recorded.
--- OUTSIDE RECORDS SUMMARY | 2024-05-24 13:16 | XMS_ITS | Encounter Summary ---
Author Organization [employer] Address [address] [place] [address] Care Team Providers Care Journalism Professor Name Role Phone Name, Gregg DIAMOND Primary Care Provider [phone] Encounter Details Date Type Department Care Team (Late st Contact Info) Description 07/20/2022 Abstract [facility] MEDICINE [address] [place] [id number] Name, MD Gregg [address] [place] [id number] Social History Tobacco Use Types Packs/Day Years [...] Description 05/26/2024 8:30 AM EDT Office Visit [facility] ADULT DENTAL [address] [place] [id number] Ayan Calvin DMD [address] [place] [address] 07/17/2024 11:30 AM EDT Office Visit [facility] MEDICINE [address] [place] [address] Name, MD Gregg [address] [place] [address] 09/21/2024 8:00 AM EDT Office Visit [facility] ADULT DENTAL [address] [place] [address] Faye Mi documented as of this encounter [...] documented as of this encounter Care Teams Journalism Professor Relationship Specialty Start Date End Date Name, MD [facility] [place] [address] PCP - General Family Medicine 04/16/15 documented as of this encounter
--- OUTSIDE RECORDS SUMMARY | 2024-05-24 13:16 | XMS_ITS | Encounter Summary ---
Author Organization [facility] Address [address] [facility] 7t [place] [address] Care Team Providers Care Hepatologist Name Role Phone Name, Gregg DIAMOND Primary Care Provider [phone] Reason for Visit * Reason Comments Med Refill Encounter Details Date Type Department Care Team ( st Contact Info) Description 10/06/2022 Refill [facility] [address] [place], [place] [phone] Name, MD Gregg 230 [place] [address] Osteoporosis, unspecified osteoporosis type, unspecified pathological fracture [...] Description 05/26/2024 8:30 AM EDT Office Visit [facility] [address] [place] [address] Ayan Calvin, RAMIREZ [address] [place], [place] [phone] 07/17/2024 11:30 AM EDT Office Visit [facility] [address] [place] [address] Name, MD Gregg [address] [place] [address] 09/21/2024 8:00 AM EDT Office Visit [facility] [address] [place] [address] Faye Mi documented as of this encounter Visit Diagnoses Diagnosis Osteoporosis, unspecified osteoporosis type, unspecified pathological fracture presence documented in this encounter Additional Health Concerns Assessment Noted Time PHQ-9 Depression Total Score: 7 03/04/19 23 9:17 AM EST documented as of this encounter Care Teams Hepatologist Relationship Specialty Start Date End Date Name, MD Gregg [address] [place] [address] PCP - General Family Medicine 04/16/15 documented as of this encounter
--- OUTSIDE RECORDS SUMMARY | 2024-05-24 13:16 | XMS_ITS | Encounter Summary ---
Author Organization [employer] Address [address] [facility] 7t [place] [address] Care Team Providers Care Sandwich Artist Name Role Phone Name, Gregg DIAMOND Primary Care Provider [phone] Reason for Visit * Reason Comments Med Refill Encounter Details Date Type Department Care Team (Late Contact Info) Description 03/04/2022 Refill [facility] [address] [place] [address] Name, MD Gregg 230 [place] [address] Osteoporosis, unspecified osteoporosis type, unspecified pathological fracture [...] Department Care Team (Late Contact Info) Description 05/26/2024 8:30 AM EDT Office Visit [facility]ULT [facility] [address] [place] [address] Ayan Calvin, RAMIREZ [address] [place] [address] 07/17/2024 11:30 AM EDT Office Visit [facility] [address] [place] [address] Name, MD Gregg [address] [place] [address] 09/21/2024 8:00 AM EDT Office Visit [facility]ULT [facility] [address] [place] [address] Faye Mi documented as of this encounter Visit Diagnoses Diagnosis Osteoporosis, unspecified osteoporosis type, unspecified pathological fracture presence documented in this encounter Additional Health Concerns Assessment Noted Time PHQ-9 Depression Total Score: 7 03/04/19 23 9:17 AM EST documented as of this encounter Care Teams Sandwich Artist Relationship Specialty Start Date End Date Name, MD Gregg [address] [place] [address] PCP - General Family Medicine 04/16/15 documented as of this encounter
== END 2024-05-24 11:50 | disposition home or self-care (01) ==
LOC: HO.PMC 11:10
PROVIDERS: PCP Internal Medicine Geriatric Medicine; Referring Provider Physician Assistant; Visit Provider Anesthesiology
DX: M54.16 Radiculopathy, lumbar region (principal); M51.369 Other intervertebral disc degeneration, lumbar region without mention of lumbar back pain or lower extremity pain; M46.1 Sacroiliitis, not elsewhere classified
CPT/HCPCS: 99204

== ENCOUNTER → 2024-05-24 11:09 | Outpatient (BNVA) | payer OTHER, SELFPAY | PROVIDERS: PCP Internal Medicine Geriatric Medicine; Referring Provider Physician Assistant; Visit Provider Anesthesiology | DX: M54.16 Radiculopathy, lumbar region (principal); M51.369 Other intervertebral disc degeneration, lumbar region without mention of lumbar back pain or lower extremity pain; M46.1 Sacroiliitis, not elsewhere classified | CPT/HCPCS: 99202 ==

== ENCOUNTER 2024-05-25 08:54 | Outpatient (AMB) | payer OTHER, SELFPAY ==
--- NOTE | 2024-05-25 08:58 | A.OFFVIS_ITS ---
Intake Visit Reasons: INJ- B/L knee Euflexxa #1 Intake Note: Mag is a 63 year old female who presents today for bilateral knee Euflexxa injections #1. Allergies nalbuphine [From Nubain] Allergy (Severe, Verified 05/25/24 09:09) Anaphylaxis oxycodone Adverse Reaction (Verified 05/25/24 09:09) itchy tramadol Adverse Reaction (Verified 05/25/24 09:09) itchy HPI HPI INJ- B/L knee Euflexxa #1: Details: 63-year-old female presents to the office today for bilateral knee Euflexxa injections. [facility] Medical History Bronchitis Somnolence, daytime Obesity (BMI 30-39.9) Nausea & vomiting Migraine Syncope Pseudotumor cerebri Kidney calculi Crystal arthropathy Right shoulder injury Kidney tumor COVID-19 vaccine administered Thyroid disease Colon polyp Diverticulosis of colon Bronchial asthma Acid reflux Surgical History Status post excision of lipoma (09/10/23) History of esophagogastroduodenoscopy (EGD) History of surgery on wrist History of hysterectomy Previous section Hx laparoscopic cholecystectomy Hx of gastric bypass (03/12/15) Hx of colonoscopy Family History Father Heart disease History of open heart surgery Mother Heart disease Social History Household Members: None Household Members Other:: alone Are you a primary career resource technician to a significant other at home: No Do you presently have visiting nurse or other home services: No Alcohol intake: never Patient Tobacco Use Status: Former Tobacco user Tobacco use type: Cigarette service: No Current occupational status: disabled Review of Systems Const All systems reviewed & are unremarkable except as noted in HPI and below Physical Exam Const General: cooperative, healthy appearing, comfortable, no acute distress, well developed and alert Orientation/consciousness: patient oriented x3 HEENT Head: Yes normal to inspection, Yes normocephalic and Yes atraumatic Eyes General: appearance normal, both eyes and all related structures Resp Effort & Inspection: normal respiratory effort and able to speak in complete sentences Cardio Rate: regular rate Peripheral pulses: Peripheral pulses 2+ throughout GI Palpation (GI): Soft to palpation Skin Lesions: no lesions Rashes: no rashes Neuro General: patient oriented x3 Extrem Other: Bilat knee: Skin intact, no erythema or joint effusion. Tenderness along the medial and lateral joint line. Full ROM with crepitus. Negative Kiki?s. No ligamentous laxity. NVI. Office Procedures AMB Joint Injection/Aspiration Joint Injection/Aspiration Details: #1 euflexxa Primary Site: right knee Secondary Site: left knee Prep: site was prepped using aseptic technique, ethochloride spray was applied and injection warnings given Injected: in the joint Approach Used: anterolateral Procedure: The patient tolerated the procedure well Coding 84402 - Glenohumeral/Tronchanteric Bursa/Intraarticular Procedure code (CPT) selection complete Assessment & Plan Assessment & Plan (1) Osteoarthritis of knees, bilateral: Code(s): M17.0 - Bilateral primary osteoarthritis of knee Category: Medical Plan: We discussed options today, which include steroid injection. The patient did consent to move forward with the injection, which was tolerated well.? I recommended rest, ice and elevation and OTC antiinflammatories prn for discomfort. She will see me back next week for her next set of euflexxa injection. Coding Level of Care Code Procedure Only Diagnoses Osteoarthritis of knees, bilateral M17.0 CPT Codes Coding - Joint 7: 09716 - Glenohumeral/Tronchanteric Bursa/Intraarticular ([id number])
--- OUTSIDE RECORDS SUMMARY | 2024-05-25 09:26 | XMS_ITS | Encounter Summary ---
Author Organization [employer] Address [address] [facility] [address] 7t [place] [address] Care Team Providers Care Offensive Coordinator Name Role Phone Name, Gregg DIAMOND Primary Care Provider [phone] Reason for Visit * Reason Onset Date Comments Request For Order(s) 07/30/2023 Encounter Details Date Type Department Care Team ([facility] st Contact Info) Description 07/30/2023 Telephone [facility] [address] [place], [place] [phone] Name, MD Gregg [address] [place] [address] Request For Order(s) Social History Tobacco Use [...] done. Please clarify Please contact pt at [phone] (No superintendent fish hatchery needed) documented in this encounter Plan of Treatment Upcoming Encounters Date Type Department Care Team (Late st Contact Info) Description 05/26/2024 8:30 AM EDT Office Visit [facility] ADULT [facility]ENT[facility] [address] [place] [address] Ayan Calvin DMD [address] [place] [address] 07/17/2024 11:30 AM EDT Office Visit [facility] [address] [place] [address] Name, MD Gregg [address] [place] [address] 09/21/2024 8:00 AM EDT Office Visit [facility] [address] [place] [address] Faye Mi documented as of this encounter Visit Diagnoses Not on filedocumented in this encounter Additional Health Concerns Assessment Noted Time PHQ-9 Depression Total Score: 7 03/04/19 23 9:17 AM EST documented as of this encounter Care Teams Offensive Coordinator Relationship Specialty Start Date End Date NameGregg MD 230 [place] [address] PCP - General Family Medicine 04/16/15 documented as of this encounter
--- OUTSIDE RECORDS SUMMARY | 2024-05-25 09:26 | XMS_ITS | Encounter Summary ---
Author Organization [employer] Address [address] [facility] [facility] [address] 7[address] [place] [address] Care Team Providers Care Race Relations Professor Name Role Phone Name, Gregg DIAMOND Primary Care Provider [phone] Reason for Visit * Reason Onset Date Comments PT1 07/27/2023 Encounter Details Date Type Department Care Team ([facility] st Contact Info) Description 07/27/2023 Telephone [facility] [address] [place] [address] Name, MD Gregg [address] [place] [address] PT1 Social History Tobacco Use Types Packs/Day [...] name: Dr. Carson Smith MD Facility Address: [address] [place] [address] [address], [facility], [address] Escort needed: Y/N: No Do you have a wheelchair: Y/N: No If yes- Manual or electric: Visits: 2-3 Next upcoming appt 08/03/23 documented in this encounter Plan of Treatment Upcoming Encounters Date Type Department Care Team (Late st Contact Info) Description 05/26/2024 8:30 AM EDT Office Visit [facility] ADULT [facility] [address] [place] [address] Ayan Calvin DMD [address] [place] [address] 07/17/2024 11:30 AM EDT Office Visit [facility] [address] [place] [address] Name, MD Gregg [address] [place], [place] [phone] 09/21/2024 8:00 AM EDT Office Visit [facility]ULT [facility] [address] [place] [address] Faye Mi documented as of this encounter Visit Diagnoses Not on filedocumented in this encounter Additional Health Concerns Assessment Noted Time PHQ-9 Depression Total Score: 7 03/04/19 23 9:17 AM EST documented as of this encounter Care Teams Race Relations Professor Relationship Specialty Start Date End Date Name, MD Gregg [address] [place] [address] PCP - General Family Medicine 04/16/15 documented as of this encounter
--- OUTSIDE RECORDS SUMMARY | 2024-05-25 09:26 | XMS_ITS | Encounter Summary ---
Author Organization [employer] Address [address] [address] 7t [place] [address] Care Team Providers Care Electrician Research Name Role Phone Name, Gregg DIAMOND Primary Care Provider Reason for Visit * Reason Comments Med Refill Encounter Details Date Type Department Care Team ([facility] st Contact Info) Description 08/03/2023 Refill [facility] 230 [place], [place] [phone] Name, MD Gregg 230 [place] [address] Social History Tobacco Use Types Packs/Day Years [...] the past 12 months, has t he [employer], oil or water company threatened to shut [...] 8:30 AM EDT Office Visit [facility] [address] [place] [address] Ayan Calvin DMD 230 [place] [address] 07/17/2024 11:30 AM EDT Office Visit [facility] [address] [place] [address] Name, MD Gregg [address] [place] [address] 09/21/2024 8:00 AM EDT Office Visit [facility] [address] [place] [address] Faye Mi documented as of this encounter Visit Diagnoses Not on filedocumented in this encounter Additional Health Concerns Assessment Noted Time PHQ-9 Depression Total Score: 7 03/04/19 23 9:17 AM EST documented as of this encounter Care Teams Electrician Research Relationship Specialty Start Date End Date NameGregg MD [address] [place] [address] PCP - General Family Medicine 04/16/15 documented as of this encounter
--- OUTSIDE RECORDS SUMMARY | 2024-05-25 09:26 | XMS_ITS | Encounter Summary ---
Author Organization [employer] Address [address] 7t [place] [address] Care Team Providers Care Historic Preservationist Name Role Phone Name, Gregg DIAMOND Primary Care Provider [phone] Encounter Details Date Type Department Care Team ([facility] st Contact Info) Description 05/24/2024 Telephone [facility] [address] [place], [place] [phone] Name, MD Gregg 230 [place] [address] Social History Tobacco Use Types Packs/Day Years [...] Visit [facility] ADULT DENTAL [address] [place] [address] Ayan Calvin, RAMIREZ [address] [place] [address] 07/17/2024 11:30 AM EDT Office Visit [facility] MED[facility]INE [address] [place] [address] Name, MD Gregg [address] [place] [address] 09/21/2024 8:00 AM EDT Office Visit [facility] ADULT DENTAL [address] [place] [address] Faye Mi documented as of this encounter Visit Diagnoses Not on filedocumented in this encounter Additional Health Concerns Assessment Noted Time PHQ-9 Depression Total Score: 0 09/01/19 24 10:42 AM EDT documented as of this encounter Care Teams Historic Preservationist Relationship Specialty Start Date End Date Name, MD Gregg [address] [place] [address] PCP - General Family Medicine 04/16/15 documented as of this encounter
--- OUTSIDE RECORDS SUMMARY | 2024-05-25 09:26 | XMS_ITS | Encounter Summary ---
Author Organization [employer] Address [address] [facility] 7t [place] [address] Care Team Providers Care Hand Shaper Name Role Phone Name, Gregg DIAMOND Primary Care Provider [phone] Reason for Visit * Reason Onset Date Comments Nurse Triage 05/04/2024 Encounter Details Date Type Department Care Team ([facility] st Contact Info) Description 05/04/[address] [facility] [address] [place] [address] Name, MD Gregg [address] [place] [address] Nurse Triage Social History Tobacco Use Types [...] information. Do see mention of hemorrhoids. No administrative assistant front desk needed as this newswriter speaks Wolof. Call returned to Mag Ayala to triage [...] to perform UA. Pt requesting referral to Second Ride Fare Collector per recommendation from Brokerage Manager. Pt advised will forward note to Provider [...] acuity questions The caller accepted this outcome. [phone] (german) pt states knows French but there are some words she can't say or understand. Tc from pt stating visited the terra cotta mold maker today, and he told pt should ask her PCP for a referral for a prosthetic because pt has several purple veins in the anus. Pt states this hasn't happenedto her before. documented in this encounter Plan of Treatment Upcoming Encounters Date Type Department Care Team (Late st Contact Info) Description 05/26/2024 8:30 AM EDT Office Visit [facility] ADULT D[facility] [address] [place] [address] Ayan Calvin, RAMIREZ [address] [place] [address] 07/17/2024 11:30 AM EDT Office Visit [facility] [address] [place] [address] Name, MD Gregg [address] [place] [address] 09/21/2024 8:00 AM EDT Office Visit [facility] [address] [place] [address] Faye iM documented as of this encounter Visit Diagnoses Not on filedocumented in this encounter Additional Health Concerns Assessment Noted Time PHQ-9 Depression Total Score: 0 09/01/19 24 10:42 AM EDT documented as of this encounter Care Teams Hand Shaper Relationship Specialty Start Date End Date Name, MD Gregg [address] [place] [address] PCP - General Family Medicine 04/16/15 documented as of this encounter
--- OUTSIDE RECORDS SUMMARY | 2024-05-25 09:26 | XMS_ITS | Encounter Summary ---
Author Organization [employer] Address [address] [facility] [facility] [address] 7[address] [place] [address] Care Team Providers Care Pick Pulling Machine Operator Name Role Phone Name, Gregg DIAMOND Primary Care Provider Reason for Visit * Reason Onset Date Comments broken tooth to hold partial 02/28/2024 Encounter Details Date Type Department Care Team (Late st Contact Info) Description 02/28/2024 Telephone [facility] ADULT D[facility] 230 [place] [address] Ayan Calvin, DMD 230 [place] [address] broken tooth to hold partial Social History [...] Description 05/26/2024 8:30 AM EDT Office Visit [facility] ADULT DENT[facility] [address] [place] [address] Ayan Calvin, RAMIREZ 230 [place] [address] 07/17/2024 11:30 AM EDT Office Visit [facility] MEDICINE [address] [place] [address] Name, MD Gregg 230 [place] [address] 09/21/2024 8:00 AM EDT Office Visit [facility] ADULT DENTAL [address] [place] [address] Faye Mi documented as of this encounter Visit Diagnoses Not on filedocumented in this encounter Additional Health Concerns Assessment Noted Time PHQ-9 Depression Total Score: 0 09/01/19 24 10:42 AM EDT documented as of this encounter Care Teams Pick Pulling Machine Operator Relationship Specialty Start Date End Date Name, MD Gregg 230 [place] [address] PCP - General Family Medicine 04/16/15 documented as of this encounter
--- OUTSIDE RECORDS SUMMARY | 2024-05-25 09:26 | XMS_ITS | Encounter Summary ---
Author Organization [employer] Address [address] [facility] [facility] [address] 7[address] [place] [address] Care Team Providers Care Press Feeder Name Role Phone Name, Gregg DIAMOND Primary Care Provider [phone] Encounter Details Date Type Department Care Team ([facility] st Contact Info) Description 10/21/2023 Telephone [facility] [address] [place] [address] Ayan Calvin, DMD [address] [place] [address] Social History Tobacco Use Types Packs/Day Years [...] AM EDT Office Visit [facility] D[facility] [address] [place] [address] Ayan Calvin, RAMIREZ [address] [place] [address] 07/17/2024 11:30 AM EDT Office Visit [facility] MED[facility] [address] [place] [address] Name, MD Gregg [address] [place] [address] 09/21/2024 8:00 AM EDT Office Visit [facility] D[facility] [address] [place] [address] Faye Mi documented as of this encounter Visit Diagnoses Not on filedocumented in this encounter Additional Health Concerns Assessment Noted Time PHQ-9 Depression Total Score: 0 09/01/19 24 10:42 AM EDT documented as of this encounter Care Teams Press Feeder Relationship Specialty Start Date End Date Name, MD Gregg 230 [place] [address] PCP - General Family Medicine 04/16/15 documented as of this encounter
--- OUTSIDE RECORDS SUMMARY | 2024-05-25 09:26 | XMS_ITS | Encounter Summary ---
Author Organization [employer] Address [address] [facility] 7t [place] [address] Care Team Providers Care Mixer Foam Rubber Name Role Phone Name, Gregg DIAMOND Primary Care Provider [phone] Reason for Visit * Reason Onset Date Comments Appointment Request 05/24/2024 Encounter Details Date Type Department Care Team ([facility] st Contact Info) Description 05/24/2024 Telephone [facility] [address] [place] [address] Name, MD Gregg [address] [place] [address] Appointment Request Social History Tobacco Use Types [...] Miscellaneous Notes * Telephone Encounter - Steve Hfofmann - 05/24/2024 8:21 AM EDT Tc from pt requesting appt with PCP pt states that a lot of things has happened since she last saw name and wants to get a appt to talk to him. Pt would prefer in person but if she has to do it over the phone she will. Contact pt at [phone] documented in this encounter Plan of Treatment Upcoming Encounters Date Type Department Care Team (Late st Contact Info) Description 05/26/2024 8:30 AM EDT Office Visit [facility] ADULT D[facility] [address] [place] [address] Ayan Calvin DMD [address] [place] [address] 07/17/2024 11:30 AM EDT Office Visit [facility] [address] [place] [address] Name, MD Gregg [address] [place] [address] 09/21/2024 8:00 AM EDT Office Visit [facility]ULT D[facility] [address] [place] [address] Faye Mi documented as of this encounter Visit Diagnoses Not on filedocumented in this encounter Additional Health Concerns Assessment Noted Time PHQ-9 Depression Total Score: 0 09/01/19 24 10:42 AM EDT documented as of this encounter Care Teams Mixer Foam Rubber Relationship Specialty Start Date End Date Name, MD Gregg [address] [place] [address] PCP - General Family Medicine 04/16/15 documented as of this encounter
--- OUTSIDE RECORDS SUMMARY | 2024-05-25 09:26 | XMS_ITS | Encounter Summary ---
Author Organization [email or web address] Address [address] [facility] [address] 7[address] [place] [address] Care Team Providers Care Practice Assistant Name Role Phone Name, Gregg DIAMOND Primary Care Provider [phone] Reason for Visit * Reason Comments Med Refill Encounter Details Date Type Department Care Team ([facility] st Contact Info) Description 11/16/2023 Refill [facility] 230 [place], [place] [phone] Yennifer Ramirez MD 230 [place] [address] Flu-like symptoms Social History Tobacco Use Types [...] Description 05/26/2024 8:30 AM EDT Office Visit [facility] ADULT DENTAL [address] [place] [address] Ayan Calvin DMD [address] [place] [address] 07/17/2024 11:30 AM EDT Office Visit [facility] MEDICINE [address] [place] [address] Name, MD Gregg [address] [place] [address] 09/21/2024 8:00 AM EDT Office Visit [facility] ADULT DENT[facility] [address] [place] [address] Faye Mi documented as of this encounter Visit Diagnoses Diagnosis Flu-like symptoms documented in this encounter Additional Health Concerns Assessment Noted Time PHQ-9 Depression Total Score: 0 09/01/19 24 10:42 AM EDT documented as of this encounter Care Teams Practice Assistant Relationship Specialty Start Date End Date Name, MD Gregg 230 [place] [address] PCP - General Family Medicine 04/16/15 documented as of this encounter
--- OUTSIDE RECORDS SUMMARY | 2024-05-25 09:26 | XMS_ITS | Encounter Summary ---
Author Organization [employer] Address [address] [facility] 7t [place] [address] Care Team Providers Care Developmental Writing Instructor Name Role Phone Name, Gregg DIAMOND Primary Care Provider [phone] Reason for Visit * Reason Onset Date Comments verbal order 05/22/2024 Encounter Details Date Type Department Care Team ([facility] st Contact Info) Description 05/22/2024 Telephone [facility] MEDICINE [address] [place] [address] Name, MD Gregg [address] [place] [address] verbal order Social History Tobacco Use Types [...] 05/23/2024 9:32 AM EDT TC placed to [place] with [facility] to inform it is okay for them to start PT tomorrow. Spoke to another staff member with [facility] and advised it is okay for pt to begin physicaltherapy tomorrow instead of today. Staff verbalized understanding and states they will inform [place]. * Telephone Encounter - Shubham Booth - 05/22/2024 1:53 PM EDT Tc from [place] with [facility] updating pt will start Physical therapy tomorrow NOT today so will need a new order. Milly [phone] opt 2 * Telephone Encounter - Maura Taylor RN - 05/22/2024 11:50 AM EDT TC placed to E[place] with [facility] to inform that provider said they are okay to do PT. Tariff Compiling Clerk spoke with Katina and informed PCP okay with PT. Katina verbalized understanding and denies questions at this time. * Telephone Encounter - Maura Taylor RN - 05/22/2024 11:28 AM EDT TC placed to E[place] with [facility] regarding home care verbal order. Ely states they are requesting home care services for physical therapy. Ely states the hospital recommended that the pt havehome PT and is requesting verbal order from PCP. Message forwarded to PCP to review and advise. * Telephone Encounter - Marla Magallon - 05/22/2024 8:13 AM EDT Tc from [facility] with [facility] needing Home Care verbal order starting today. [phone] option 2 documented in this encounter Plan of Treatment Upcoming Encounters Date Type Department Care Team (Late st Contact Info) Description 05/26/2024 8:30 AM EDT Office Visit [facility] ADULT DENTAL [address] [place] [address] Ayan Calvin, RAMIREZ [address] [place] [address] 07/17/2024 11:30 AM EDT Office Visit [facility] MEDICINE [address] [place] [address] Name, MD Gregg [address] [place] [address] 09/21/2024 8:00 AM EDT Office Visit [facility] ADULT DENTAL [address] [place] [address] Faye Mi documented as of this encounter Visit Diagnoses Not on filedocumented in this encounter Additional Health Concerns Assessment Noted Time PHQ-9 Depression Total Score: 0 09/01/19 24 10:42 AM EDT documented as of this encounter Care Teams Developmental Writing Instructor Relationship Specialty Start Date End Date Name, MD Gregg [address] [place] [address] PCP - General Family Medicine 04/16/15 documented as of this encounter
--- OUTSIDE RECORDS SUMMARY | 2024-05-25 09:26 | XMS_ITS | Encounter Summary ---
Author Organization [employer] Address [address] [facility] 7t [place] [address] Care Team Providers Care Concert Promoter Name Role Phone Name, Gregg DIAMOND Primary Care Provider [phone] Reason for Visit * Reason Onset Date Comments Durable Medical Equipment 05/15/2024 Call Back Request 05/15/2024 Encounter Details Date Type Department Care Team ([facility] st Contact Info) Description 05/15/[address] [facility] MEDICINE [address] [place] [address] Name, MD Gregg [address] [place] [address] Durable Medical Equipment; Call Back Request Social [...] encounter Miscellaneous Notes * Telephone Encounter - Ashleigh Paulino MA - 05/24/2024 1:58 PM EDT DME for electric scooter evaluation, electric scooter, and walker with wheels and seat signed and faxed to [facility]. Confirmation received and sent to scan. If patient calls to check status on above, please advise them to contact [facility] managed care director . * Telephone Encounter - Sheridan Stringer - 05/24/2024 10:55 AM EDT Tc from Pt calling to inform [facility] reached out to her that script for scooter is needed before Wednesday05/26/24 to be able to do her evaluation, if not case will be closed. * Telephone Encounter - Marla Magallon - 05/23/2024 9:06 AM EDT Tc from pt stating needs a rx to be sent to [facility] so they can process the order for the electric scooter and go to evaluate pt at home. Pt states need it krzysztof because she can't walk. * Telephone Encounter - Valentina Beltran - 05/19/2024 9:36 AM EDT Rx for Wedge pillow faxed to [facility] for processing. Confirmation received and scanned into media. If patient calls to check status on above, please advise them to contact [facility] managed care director . * Telephone Encounter - Valentina Beltran - 05/18/2024 3:05 PM EDT Policy Service Coordinator called pt to confirm DME request. Pt [...] documentation so DME RX don't get deny. [facility] FA[facility] [phone] * Telephone Encounter - Shubham Booth - 05/15/2024 11:44 AM EDT Tc from pt requesting a callback from singaporean speaker LYLY mack will like to explain descriptions details for DME RX for scooter so it could be FAX to [facility]. Pt please asked not to call with media center director school as she will like to speak directly to singaporean speaker LYYL [phone] documented in this encounter Plan of Treatment Upcoming Encounters Date Type Department Care Team (Late st Contact Info) Description 05/26/2024 8:30 AM EDT Office Visit [facility] ADULT DENTAL [address] [place] [address] Ayan Calvin, DMD [address] [place] [address] 07/17/2024 11:30 AM EDT Office Visit [facility] MEDICINE [address] [place] [address] Name, MD Gregg [address] [place] [address] 09/21/2024 8:00 AM EDT Office Visit [facility] ADULT DENTAL [address] [place] [address] Faye Mi documented as of this encounter Visit Diagnoses Not on filedocumented in this encounter Additional Health Concerns Assessment Noted Time PHQ-9 Depression Total Score: 0 09/01/19 24 10:42 AM EDT documented as of this encounter Care Teams Concert Promoter Relationship Specialty Start Date End Date Name, MD Gregg [address] [place] [address] PCP - General Family Medicine 04/16/15 documented as of this encounter
--- OUTSIDE RECORDS SUMMARY | 2024-05-25 09:26 | XMS_ITS | Encounter Summary ---
Author Organization [employer] Address [address] [facility] 7t [place] [address] Care Team Providers Care Internal Control Specialist Name Role Phone Name, Gregg DIAMOND Primary Care Provider [phone] Reason for Visit * Reason Onset Date Comments Speak to PCP 05/23/2024 Encounter Details Date Type Department Care Team ([facility] st Contact Info) Description 05/23/2024 Telephone [facility] MEDICINE [address] [place] [address] Name, MD Gregg [address] [place] [address] Speak to PCP Social History Tobacco Use [...] Encounter - Maura Taylor RN - 05/24/2024 1:51 PM EDT TC placed to pt regarding below message. Pt reports she needs the prescription [facility] Wednesday otherwise she will lose her chance as they will close the case and will have to submit an appeal. Pt reports the animal cruelty investigation supervisor for [employer] and coordinator called and left Name a message regarding needing the prescription sent to [facility]. Pt also reports she went to pain management today and they are sending her for an MRI of her lumbar spine. Pt reports she needs the Lidocaine (HM Lidocaine Patch) 4 % patch sent to [facility] otherwise she will need to waitfor them to be approved. Pt placed on hold and TC placed tot [facility] pharmacy. They stated that the pt would need a PA completed for the Lidocaine (HM Lidocaine Patch) 4 % patch through our pharmacy. Pt requesting the Lidocaine (HM Lidocaine Patch) 4 % patch be sent to [facility] and asked that the prescription for scooter be sent to [facility]. Supervisory Lifeguard spoke with [facility] specialist who is checking on the status of PA for Lidocaine (HM Lidocaine Patch) 4 % patch. Message forwarded to PA specialist. Supervisory Lifeguard notes that the DME for electric scooter evaluation, electric scooter, and walker with wheelsand seat signed and faxed to [employer]. * Telephone Encounter - Ellie Reynolds - 05/23/2024 3:02 PM EDT Tc from pt requesting to speak to PCP . Pt stated a lot has been going on with health No further details provided. Denied triage. Pt reported was seen at [facility] on 05/20/24 due to knee pain. Contact pt at [phone] (serbian) documented in this encounter Plan of Treatment Upcoming Encounters Date Type Department Care Team (Late st Contact Info) Description 05/26/2024 8:30 AM EDT Office Visit [facility] ADULT DENTAL [address] [place] [address] Ayan Calvin DMD [address] [place] [address] 07/17/2024 11:30 AM EDT Office Visit [facility] MEDICINE [address] [place] [address] Name, MD Gregg [address] [place] [address] 09/21/2024 8:00 AM EDT Office Visit [facility] ADULT DENTAL [address] [place] [address] Faye Mi documented as of this encounter Visit Diagnoses Not on filedocumented in this encounter Additional Health Concerns Assessment Noted Time PHQ-9 Depression Total Score: 0 07/17/20 24 10:42 AM EDT documented as of this encounter Care Teams Internal Control Specialist Relationship Specialty Start Date End Date Name, MD Gregg [address] [place] [address] PCP - General Family Medicine 04/16/15 documented as of this encounter
--- OUTSIDE RECORDS SUMMARY | 2024-05-25 09:26 | XMS_ITS | Encounter Summary ---
Author Organization [employer] Address [address] [facility] [address] 7t [place] [address] Care Team Providers Care Assistant Professor Of Art Name Role Phone Name, Gregg DIAMOND Primary Care Provider [phone] Reason for Visit * Reason Onset Date Comments clarification of tx 08/09/2023 Encounter Details Date Type Department Care Team (Late st Contact Info) Description 08/09/2023 Telephone [facility] ADULT DENTAL [address] [place] [address] Ayan Calvin, DMD [address] [place] [address] clarification of tx Social History Tobacco Use [...] you to call her. [facility] but is looking [...] Description 05/26/2024 8:30 AM EDT Office Visit [facility] ADULT DENTAL [address] [place] [address] Ayan Calvin, RAMIREZ [address] [place] [address] 07/17/2024 11:30 AM EDT Office Visit [facility] MEDICINE [address] [place] [address] Name, MD Gregg [address] [place] [address] 09/21/2024 8:00 AM EDT Office Visit [facility] ADULT DENTAL [address] [place] [address] Faye Mi documented as of this encounter Visit Diagnoses Not on filedocumented in this encounter Additional Health Concerns Assessment Noted Time PHQ-9 Depression Total Score: 7 03/04/19 23 9:17 AM EST documented as of this encounter Care Teams Assistant Professor Of Art Relationship Specialty Start Date End Date Name, MD Gregg [address] [place] [address] PCP - General Family Medicine 04/16/15 documented as of this encounter
--- OUTSIDE RECORDS SUMMARY | 2024-05-25 09:26 | XMS_ITS | Encounter Summary ---
Author Organization [employer] Address [address] [facility] 7t [place] [address] Care Team Providers Care Group Sales Manager Name Role Phone Name, Gregg DIAMOND Primary Care Provider Reason for Visit * Reason Onset Date Comments ER Follow-up 05/02/2024 Nurse Triage 05/02/2024 Encounter Details Date Type Department Care Team ([facility] st Contact Info) Description 05/02/2024 Telephone [facility] MEDICINE [address] [place] [address] Name, MD Gregg [address] [place] [address] ER Follow-up; Nurse Triage Social History Tobacco [...] of the rollator walker. TC placed to [facility] pharamcyregarding the fosamax. Lori states the [...] in June as she will leaving for [place] at the beginning of June Pt requesting a call from PCP. Post Anesthesia Care Unit Nurse found telehealth visit in PCP schedule. Pt [...] find out more information. TC placed to [facility] pharamcy regardingthe fosamax. Lori states the medication [...] She states that she went to the [facility] ED yesterday due to right leg pain and right knee isswollen. Pt. Was also having throbbing pain in left side of groin. [facility] ED did not find any blood clot in leg and Xray of left hip and pelvis-negative. ED is recommending referral to Continuing Education Instructor according to pt. Pt does not want [...] that she remembers. Pt. Needs referral to Continuing Education Instructor. Offered pt. Appt. Today but, pt. Only wants to speak to pcp and is requesting appt. With PCP only or call from PCP to discuss updates and needs. Please get back to pt. To let her know if any of these needs can be met Will send request to Clinical coordinators to get [facility] ED report from yesterday into pt. Chart. Multiple needs. * Telephone Encounter - Shubham Booth - 05/02/2024 10:20 AM EDT Patient calling to report ED visit on : Date: 05/01/2024 Hospital: [facility] Seen for: Knee pain [...] Description 05/26/2024 8:30 AM EDT Office Visit [facility] ADULT DENTAL [address] [place] [address] Ayan Calvin DMD [address] [place] [address] 07/17/2024 11:30 AM EDT Office Visit [facility] MEDICINE [address] [place] [address] Name, MD Gregg [address] [place] [address] 09/21/2024 8:00 AM EDT Office Visit [facility] ADULT DENTAL [address] [place] [address] Faye Mi documented as of this encounter Visit Diagnoses Not on filedocumented in this encounter Additional Health Concerns Assessment Noted Time PHQ-9 Depression Total Score: 0 09/01/19 24 10:42 AM EDT documented as of this encounter Care Teams Group Sales Manager Relationship Specialty Start Date End Date Name, MD Gregg [address] [place] [address] PCP - General Family Medicine 04/16/15 documented as of this encounter
--- OUTSIDE RECORDS SUMMARY | 2024-05-25 09:26 | XMS_ITS | Encounter Summary ---
Author Organization [employer] Address [address] [facility] 7t [place] [address] Care Team Providers Care Certified Professional Coder Name Role Phone Name, Gregg DIAMOND Primary Care Provider [phone] Reason for Visit * Reason Onset Date Comments Appointment Request 04/18/2024 Encounter Details Date Type Department Care Team ([facility] st Contact Info) Description 04/18/2024 Telephone [facility] MEDICINE [address] [place] [address] Name, MD Gregg [address] [place] [address] Appointment Request Social History Tobacco Use Types [...] PCP. Pt states will be out of [place] from June 18- as she has an appointment with the oncologist on the and with the neurosurgeon on June 27. documented in this encounter Plan of Treatment Upcoming Encounters Date Type Department Care Team (Late st Contact Info) Description 05/26/2024 8:30 AM EDT Office Visit [facility] ADULT DENTAL [address] [place] [address] Ayan Calvin, RAMIREZ [address] [place] [address] 07/17/2024 11:30 AM EDT Office Visit [facility] MEDICINE [address] [place] [address] Name, MD Gregg [address] [place] [address] 09/21/2024 8:00 AM EDT Office Visit [facility] ADULT DENTAL [address] [place] [address] Faye Mi documented as of this encounter Visit Diagnoses Not on filedocumented in this encounter Additional Health Concerns Assessment Noted Time PHQ-9 Depression Total Score: 0 09/01/19 24 10:42 AM EDT documented as of this encounter Care Teams Certified Professional Coder Relationship Specialty Start Date End Date Name, MD Gregg [address] [place] [address] PCP - General Family Medicine 04/16/15 documented as of this encounter
--- OUTSIDE RECORDS SUMMARY | 2024-05-25 09:26 | XMS_ITS | Encounter Summary ---
Author Organization [employer] Address [address] [facility] [address] [place] [address] Care Team Providers Care Quality Eng Name Role Phone Name, Gregg DIAMOND Primary Care Provider [phone] Reason for Visit * Reason Comments Med Refill Encounter Details Date Type Department Care Team ([facility] st Contact Info) Description 05/24/2024 Refill [facility] MEDICINE [address] [place] [address] Ban Granados FNP [address] [place] [address] Social History Tobacco Use Types Packs/Day Years [...] Description 05/26/2024 8:30 AM EDT Office Visit [facility] ADULT DENTAL [address] [place] [address] Ayan Calvin, RAMIREZ [address] [place] [address] 07/17/2024 11:30 AM EDT Office Visit [facility] MEDICINE [address] [place] [address] Name, MD Gregg [address] [place] [address] 09/21/2024 8:00 AM EDT Office Visit [facility] ADULT DENTAL [address] [place] [address] Faye Mi documented as of this encounter Visit Diagnoses Not on filedocumented in this encounter Additional Health Concerns Assessment Noted Time PHQ-9 Depression Total Score: 0 09/01/19 24 10:42 AM EDT documented as of this encounter Care Teams Quality Eng Relationship Specialty Start Date End Date Name, MD Gregg [address] [place] [address] PCP - General Family Medicine 04/16/15 documented as of this encounter
--- OUTSIDE RECORDS SUMMARY | 2024-05-25 09:26 | XMS_ITS | Encounter Summary ---
Author Organization [employer] Address [address] [facility] [address] 7t [place] [address] Care Team Providers Care Relay Mechanic Name Role Phone Name, Gregg DIAMOND Primary Care Provider [phone] Reason for Visit * Reason Comments Med Refill Encounter Details Date Type Department Care Team ([facility] st Contact Info) Description 02/14/2024 Refill [facility] MEDICINE [address] [place], [place] [phone] Name, MD Gregg [address] [place] [address] Social History Tobacco Use Types Packs/Day Years [...] 05/26/2024 8:30 AM EDT Office Visit [facility] ADULT DENTAL [address] [place] [address] Ayan Calvin, RAMIREZ [address] [place] [address] 07/17/2024 11:30 AM EDT Office Visit [facility] MEDICINE [address] [place] [address] Name, MD Gregg [address] [place] [address] 09/21/2024 8:00 AM EDT Office Visit [facility] ADULT DENTAL [address] [place] [address] Faye Mi documented as of this encounter Visit Diagnoses Not on filedocumented in this encounter Additional Health Concerns Assessment Noted Time PHQ-9 Depression Total Score: 0 09/01/19 24 10:42 AM EDT documented as of this encounter Care Teams Relay Mechanic Relationship Specialty Start Date End Date Name, MD Gregg [address] [place] [address] PCP - General Family Medicine 04/16/15 documented as of this encounter
--- OUTSIDE RECORDS SUMMARY | 2024-05-25 09:26 | XMS_ITS | Encounter Summary ---
Author Organization [employer] Address [address] [facility] [address]t [place] [address] Care Team Providers Care Packing Machine Can Feeder Name Role Phone Name, Gregg DIAMOND Primary Care Provider [phone] Reason for Visit * Reason Comments Transition Of Care (Tcm) Encounter Details Date Type Department Care Team ([facility] st Contact Info) Description 05/22/2024 Patient Outreach [facility] MEDICINE [address], [place] [phone] Name, MD Gregg [address] [place] [address] Transition Of Care (Tcm) Social History Tobacco [...] not included. Hospital Discharges and Admission for [facility] Type of Visit: Emergency Department Date of Admission/Visit: 05/20/24 Date of Discharge: 05/21/24 Facility: [facility] Diagnosis: Pain in right knee (M25.561) Disposition: Discharged Home Follow-Up Actions Follow-Up Needed: None/self-monitoring Follow-Up Outcome: Spoke to Patient Initial Contact Date: 05/22/24 Patient Contacted: Yes Patient Status: Unchanged Pt reports they currently have 10/10 pain in knees. Pt reports they have a nurse coming tomorrow for physical therapy and a nurse from [facility] coming to evaluate her. Pt reports she had medication to help with pain this morning and it helped a little. Pt denies wanting a follow up appointment at this time. Advised pt to call office with any questions or concerns. Pt agreeable to plan. The full discharge summary is Is available under encounters/interface Review Flowsheet [facility] Transition of Care Documentation Type of Visit Date of Admission/Visit Date of Discharge Facility Diagnosis Disposition 01/31/2024 8:14 AM Emergency Department 01/28/2024 01/28/2024 [facility] Weakness and Nausea Discharged Home 02/28/2024 10:03 AM Emergency Department 02/25/2024 5:10 pm 02/25/2024 5:56 pm [facility] Mech fall, ? fx right big toe Discharged Home 05/05/2024 11:20 AM Emergency Department 05/05/2024 - [facility] R Groin Pain Discharged Home 05/22/2024 9:18 AM Emergency Department 05/20/2024 05/21/2024 [facility] Pain in right knee (M25.561) Discharged Home Recent Visits Date Type Provider Dept 05/08/24 Office Visit Gregg Gandhi MD [facility] Medicine 03/08/24 Office Visit Gregg Gandhi MD [facility] Medicine 01/28/24 Office Visit Taya Watson MD [facility] 01/21/24 Office Visit Gregg Gandhi MD [facility] Medicine 12/07/23 Office Visit Alicia Espinoza MD [facility] 12/01/23 Office Visit Yennifer Jimenez MD [facility] 11/11/23 Office Visit Yennifer Jimenez MD [facility] 10/26/23 Office Visit Gregg Gandhi MD [facility] Medicine 09/01/23 Office Visit Gregg Gandhi MD [facility] Medicine 08/24/23 Office Visit Steve Hoyt MD [facility] Medicine Showing recent visits within past 365 days with a meds authorizing provider and meeting all other requirements Future Appointments Date Type Provider Dept 07/17/24 Appointment Gregg Gandhi MD [facility] Medicine Showing future appointments within next 150 days with a meds authorizing provider and meeting all other requirements Patient was educated on hours of operation. documented in this encounter Plan of Treatment Upcoming Encounters Date Type Department Care Team (Late st Contact Info) Description 05/26/2024 8:30 AM EDT Office Visit [facility] ADULT DENTAL [address] [place] [address] Ayan Calvin DMD [address] [place] [address] 07/17/2024 11:30 AM EDT Office Visit [facility] [address] [place] [address] Name, MD Gregg [address] [place] [address] 09/21/2024 8:00 AM EDT Office Visit [facility] [address] [place] [address] Faye Mi documented as of this encounter Visit Diagnoses Not on filedocumented in this encounter Additional Health Concerns Assessment Noted Time PHQ-9 Depression Total Score: 0 09/01/19 24 10:42 AM EDT documented as of this encounter Care Teams Packing Machine Can Feeder Relationship Specialty Start Date End Date NameGregg MD [address] [place] [id number] PCP - General Family Medicine 04/16/15 documented as of this encounter
--- OUTSIDE RECORDS SUMMARY | 2024-05-25 09:26 | XMS_ITS | Encounter Summary ---
Author Organization [employer] Address [address] [facility] 7t [place] [address] Care Team Providers Care Geospatial Information Scientist Name Role Phone Name, Gregg DIAMOND Primary Care Provider [phone] Reason for Visit * Reason Onset Date Comments Med Refill 05/23/2024 Encounter Details Date Type Department Care Team (Late st Contact Info) Description 05/23/2024 Refill [facility] MEDICINE [address] [place] [address] Name, MD Gregg [address] [place] [address] Social History Tobacco Use Types Packs/Day Years [...] . pt requesting to be sent to [facility] documented in this encounter Plan of Treatment Upcoming Encounters Date Type Department Care Team (Late st Contact Info) Description 05/26/2024 8:30 AM EDT Office Visit [facility] ADULT DENTAL [address], [place] [phone] Ayan Calvin, RAMIREZ [address] [place] [address] 07/17/2024 11:30 AM EDT Office Visit [facility] MEDICINE [address] [place] [address] Name, MD Gregg [address] [place] [address] 09/21/2024 8:00 AM EDT Office Visit [facility] ADULT DENTAL [address] [place] [address] Faye Mi documented as of this encounter Visit Diagnoses Not on filedocumented in this encounter Additional Health Concerns Assessment Noted Time PHQ-9 Depression Total Score: 0 09/01/19 24 10:42 AM EDT documented as of this encounter Care Teams Geospatial Information Scientist Relationship Specialty Start Date End Date Name, MD Gregg [address] [place] [address] PCP - General Family Medicine 04/16/15 documented as of this encounter
--- OUTSIDE RECORDS SUMMARY | 2024-05-25 09:26 | XMS_ITS | Encounter Summary ---
Author Organization [employer] Address [address] [facility] [address]t [place] [address] Care Team Providers Care Keyboarding Teacher Name Role Phone Name, Gregg DIAMOND Primary Care Provider [phone] Reason for Visit * Reason Onset Date Comments call back needed 05/23/2024 Encounter Details Date Type Department Care Team ([facility] st Contact Info) Description 05/23/2024 Telephone [facility] MED[facility]INE [address] [place] [address] Name, MD Gregg [address] [place] [address] call back needed Social History Tobacco Use [...] AM EDT TC placed to Melanie with [facility]. No answer, LVM to call office back and ask to speak to the chaffee team nurses. * Telephone Encounter - Keaton Sheridan - 05/23/2024 3:53 PM EDT TC from Melanie With [facility] . Would like a call back to do Med reconciliation Melanie [phone] documented in this encounter Plan of Treatment Upcoming Encounters Date Type Department Care Team (Late st Contact Info) Description 05/26/2024 8:30 AM EDT Office Visit [facility] ADULT DENTAL [address] [place] [address] Ayan Calvin, DMD [address] [place] [address] 07/17/2024 11:30 AM EDT Office Visit [facility] [address] [place] [address] Name, MD Gregg [address] [place] [address] 09/21/2024 8:00 AM EDT Office Visit [facility] ADULT D[facility] [address] [place] [address] Faye Mi documented as of this encounter Visit Diagnoses Not on filedocumented in this encounter Additional Health Concerns Assessment Noted Time PHQ-9 Depression Total Score: 0 09/01/19 24 10:42 AM EDT documented as of this encounter Care Teams Keyboarding Teacher Relationship Specialty Start Date End Date Name, [place] [address] PCP - General Family Medicine 04/16/15 documented as of this encounter
--- OUTSIDE RECORDS SUMMARY | 2024-05-25 09:27 | XMS_ITS | Encounter Summary ---
Author Organization [employer] [facility] Address [address] [facility] [address] [place] [address] Care Team Providers Care Lacquer Machine Feeder Name Role Phone Name, Gregg DIAMOND Primary Care Provider [phone] Reason for Visit * Reason Comments Med Refill Encounter Details Date Type Department Care Team ( Contact Info) Description 10/14/[address] [facility] MEDICINE [address] [place], [place] [phone] Name, MD Gregg [address] [place] [address] Osteoporosis, unspecified osteoporosis type, unspecified pathological fracture [...] AM EDT Office Visit [facility] ADULT DENTAL [address] [place] [address] Ayan Calvin, RAMIREZ [address] [place], [place] [phone] 07/17/2024 11:30 AM EDT Office Visit [facility] MEDICINE [address] [place] [address] Name, MD Gregg [address] [place] [address] 09/21/2024 8:00 AM EDT Office Visit [facility] ADULT DENTAL [address] [place] [address] Faye Mi documented as of this encounter Visit Diagnoses Diagnosis Osteoporosis, unspecified osteoporosis type, unspecified pathological fracture presence documented in this encounter Additional Health Concerns Assessment Noted Time PHQ-9 Depression Total Score: 7 03/04/19 23 9:17 AM EST documented as of this encounter Care Teams Lacquer Machine Feeder Relationship Specialty Start Date End Date Name, MD Gregg [address] [place] [id number] PCP - General Family Medicine 04/16/15 documented as of this encounter
--- OUTSIDE RECORDS SUMMARY | 2024-05-25 09:27 | XMS_ITS | Encounter Summary ---
Author Organization [employer] [facility] Address [address] [facility] 7t [place] [address] Care Team Providers Care Scaffold Builder Name Role Phone Name, Gregg DIAMOND Primary Care Provider [phone] Encounter Details Date Type Department Care Team (Late st Contact Info) Description 01/14/2022 Abstract [facility] ADULT DENTAL [address] [place] [address] Dental, Provider, DDS Social History Tobacco Use [...] [facility] [address] [place] [address] Ayan Calvin DMD [address] [place] [address] 07/17/2024 11:30 AM EDT Office Visit [facility] MED[facility]INE [address] [place] [address] Gregg Gandhi MD [address] [place] [address] 09/21/2024 8:00 AM EDT Office Visit [facility] ADULT DENTAL [address] [place] [address] Mi, Faye documented as of this encounter [...] on filedocumented in this encounter Care Teams Scaffold Builder Relationship Specialty Start Date End Date Name, MD Gregg [address] [place] [address] PCP - General Family Medicine 04/16/15 documented as of this encounter
--- OUTSIDE RECORDS SUMMARY | 2024-05-25 09:27 | XMS_ITS | Clinical Summary ---
Author Organization [employer] Address [address] [facility] 7t [place] [address] Care Team Providers Care Custom Marine Canvas Fabricator Name Role Phone Name, Gregg DIAMOND Primary Care Provider [phone] Allergies Active Allergy Reactions Criticality Noted Date [...] 3 DAYS 10 patch 12/26/19 23 Active omeprazole (PriLOSEC) [address] capsule [...] 2 sprays each nostril bid prn rhinorrhea, moroccan 15 mL 12/07/19 24 Active doxepin (SINEquan) [...] back 30 patch 3 05/24/19 25 Active hydroCHLOROthia zide 12.5 MG tablet TAKE 1 TABLET BY MOUTH EVERYDAY AT NOON 90 tablet 3 05/25/19 25 Active ondansetron (Zofran) 4 MG tablet Take 1 tablet (4 mg) by mouth if needed each day for nausea or vomiting. 20 tablet 05/25/19 24 025 hydroCHLOROthia zide (HYDRODiuril) 12.5 MG tablet Take 1 tablet (12.5 mg) by mouth Once per day. 90 tablet 3 06/07/19 24 025 Discontinued cholecalciferol (Vitamin D-3) 25 MCG tabletIndicatio ns:Osteoporosis [...] 1 (one) time per week. 2 mL 03/08/19 025 Discontinued(Do se adjustment) Tirzepatide 10 MG/0.5ML [...] is already in the process of seeing [facility] Plan: Increase fluids, pain [...] range. Recent lab work not available contacted [facility] for results. Will renew medications at the [...] Type Department Care Team Description 05/24/[address] [facility] [address] [facility] [place] [address] Gregg Gandhi MD Appointment Request 05/24/[address] [facility] [address] [facility] [place] [address] Gregg Gandhi MD 05/24/[address] [facility] [address] [facility] [place] [address] Ban Granados FNP 05/23/[address] [facility] [address] [facility] [place] [address] Gregg Gandhi MD call back needed 05/23/[address] [facility] [place] [address] Gregg Gandhi MD Speak to PCP 05/23/[address] [facility] [address] [facility] [place] [address] Gregg Gandhi MD 05/22/[address] [facility] [place] [address] Gregg Gandhi MD Transition Of Care (Tcm) 05/22/[address] [facility] [place] [address] Gregg Gandhi MD verbal order 05/18/[address] [facility] [address] [place] [address] [place] [address] Gregg Gandhi MD Nurse Triage 05/15/[address] [address] Gregg Gandhi MD Durable Medical Equipment; Call Back Request 05/12/2024 9:00 AM EDT Office Visit [facility] [address] [place] [address] Ayan Calvin, RAMIREZ 05/09/[address] [address] Natalie Nathan, BRIAN 05/08/2024 11:15 AM EDT Office Visit [address] [address] Gregg Gandhi MD Diverticulitis (Primary Dx); Left hip pain 05/08/[address] [facility] [address] [place] [address] Gregg Gandhi MD Class 1 obesity (Primary Dx) 05/08/2024 Travel 05/05/[address] [address] Gregg Gandhi MD Durable Medical Equipment 05/05/2024 Patient Outreach [address] [address] Gregg Gandhi MD Transition Of Care (Tcm) 05/04/[address] [address] Gregg Gandhi MD Nurse Triage 05/03/2024 2:15 PM EDT Telemedicine [address] [address] Gregg Gandhi MD Right knee pain, unspecified chronicity (Primary Dx); Osteoarthritis of right knee, unspecified osteoarthritis type; Obesity (BMI 30-39.9) 05/03/2024 Travel 05/03/[address] [facility] [address] [place] [address] Gregg Gandhi MD Return Call 05/03/[address] [facility] [address] [place] [address] DelrayJosselin sterling, OCEAN LIFEGUARD SPECIALIST Osteoporosis, unspecified osteoporosis type, unspecified pathological fracture presence 05/02/[address] [facility] [address] [place] [address] Gregg Gandhi MD ER Follow-up; Nurse Triage 05/01/2024 9:00 AM EDT Office Visit [facility] [address] [place] [address] Ayan Calvin, DMD 05/01/2024 Orders Only [facility] External Provider, [facility] 05/01/[address] [facility] [address] [place] [address] Gregg Gandhi MD Prior Authorization (Lidocaine ) 04/19/2024 Travel 04/19/[address] [address] Sweta Giraldo [place] Appointment Request 04/18/[address] [address] Gregg Gandhi MD Appointment Request 04/10/2024 2:00 PM EST Office Visit [facility] [address] [place] [address] Sore throat (Primary Dx); Right ear pain 04/10/2024 10:30 AM EST Office Visit [facility] [address] [place] [address] Ayan Calvin, DMD 04/10/[address] [address] Gregg Gandhi MD 03/29/[address] [address] Gregg Gandhi MD Durable Medical Equipment 03/22/[address] [facility] [address] [place] [address] Gregg Gandhi MD Medication Question 03/20/[address] [facility] [address] [place] [address] Gregg Gandhi MD Osteoporosis, unspecified osteoporosis type, unspecified pathological fracture presence 03/14/[address] [facility] [address] [place] [address] Gregg Gandhi MD Bariatric surgery status 03/10/2024 10:30 AM EST Office Visit [facility] [address] [place] [address] Ayan Calvin DMD 03/08/2024 9:00 AM EST Office Visit [address] [address] NameGregg MD Obesity (BMI 30-39.9) (Primary Dx); Chronic pain of right knee; Primary osteoarthritis of right knee; Spondylosis of lumbar region without myelopathy or radiculopathy 03/08/[address] [address] Gregg Gandhi MD Durable Medical Equipment 02/28/[address] [address] Gregg Gandhi MD ER Follow-up 02/28/2024 Patient Outreach [address] [address] NameGregg MD Transition Of Care (Tcm) 02/28/[address] [facility] [address] [place] [address] Ayan Calvin DMD broken tooth to hold [...] 05/26/2024 8:30 AM EDT Office Visit [facility] [address] [place] [address] Ayan Calvin, RAMIREZ [address] [place] [address] 07/17/2024 11:30 AM EDT Office Visit [facility] [address] [place] [address] Name, MD Gregg [address] [place] [address] 09/21/2024 8:00 AM EDT Office Visit [facility] [address] [place] [address] Faye Mi Health Maintenance Due Date Last [...] EDT Narrative 05/04/2024 10:11 PM EDT ? [place] [facility] ?[address] ?[place] [address] ? CT Scan Report ? Signed ? Patient: Ayala,Mag ?MR#: [id number] ?? 4 ? : 1960 ?Acct:[id number] ? Age/Sex: 63 / F ?ADM Date: 05/04/24 ? Loc: HO.ED ? Attending Dr: ? Ordering Physician: Mitch Roberts MD ?? Date of Service: 05/04/24 ?? Procedure(s): CT abdomen pelvis wo IV con ?? Accession Number(s): [id number] ? cc: Name,Gregg DIAMOND; Mitch Roberts MD ? Report Number: ?? [id number]: Total DLP = ??608.00 mGy-cm ? CLINICAL [...] osteoarthritis both ?? hips. Degenerative changes include oqhmoano-gl-iytvfs facet arthropathy, ?? particularly in the lower [...] ? DD/ 08 ? TD/TT: 05/04/242208 ? Small Lot Operator: ? Procedure Note Laron, Starla - 05/04/[address] [address] [address] Scan Report Signed Patient: Eulalia Ayala#: [id number] 4 : 9Acct:[id number] Age/Sex: 63 / FADM Date: 05/04/24 Loc: HO.ED Attending Dr: Ordering Physician: Mitch Roberts MD Date of Service: 05/04/24 Procedure(s): CT abdomen pelvis wo IV con Accession Number(s): [id number] cc: Name,Gregg DIAMOND; Mitch Roberts MD Report Number: [id number]: Total DLP = 608.00 mGy-cm CLINICAL HISTORY: [...] moderate osteoarthritis both hips. Degenerative changes include ivuhfkdc-jm-omzmei facet arthropathy, particularly in the lower lumbar [...] in OV> 05/04/242209 DD/ 08 TD/TT: 05/04/242208 Small Lot Operator: [facility] External Provider IMG CT PROCEDURES Final Result * US VENOUS DUPLEX LE RT (05/02/2024 12:41 AM EDT) Anatomical Region Laterality Modality Abdomen Ultrasound 05/02/2024 12:4 1 AM EDT Narrative 05/02/2024 12:44 AM EDT ? [facility] ?[address] ?[place], [place] [address] ? Ultrasound Report ? Signed ? Patient: Ayala,Mag ?MR#: [id number] ?? 4 ? : 1960 ?Acct:[id number] ? Age/Sex: 63 / F ?ADM Date: 05/01/24 ? Loc: HO.ED ? Attending Dr: ? Ordering Physician: Stephen Sexton MD ?? Date of Service: 05/01/24 ?? Procedure(s): US venous duplex LE RT ?? Accession Number(s): [id number] ? cc: Stephen Sexton MD; Name,Gregg DIAMOND [...] DD/ 0041 ? TD/TT: 05/02/24 0041 ? Small Lot Operator: ? Procedure Note Laron, Image - 05/02/[address] [address] Ultrasound Report Signed Patient: Eulalia Ayala#: [id number] 4 : 9Acct:[id number] Age/Sex: 63 / FADM Date: 05/01/24 Loc: IZZY.ED Attending Dr: Ordering Physician: Stephen Sexton MD Date of Service: 05/01/24 Procedure(s): US venous duplex LE RT Accession Number(s): [id number] cc: Stephen Sexton MD; Name,Gregg DIAMOND CLINICAL [...] MD in OV> 05/02/2441 DD/ TD/TT: 05/02/2440 Small Lot Operator: [facility] External Provider IMG US PROCEDURES Edited Result - Final * XR Hip left with Pelvis 1 view (05/02/2024 12:09 AM EDT) Anatomical Region Laterality Modality Lower Extremities, Hip Bilateral Radiograp hic Imaging 05/02/2024 12:0 9 AM EDT Narrative 05/02/2024 12:12 AM EDT ? [facility] ?[address] ?[place] [address] ?XRay Report ? Signed ? Patient: Riccardo Ayalan ?MR#: [id number] ?? 4 ? : 1960 ?Acct:[id number] ? Age/Sex: 63 / F ?ADM Date: 05/01/24 ? Loc: HO.ED ? Attending Dr: ? Ordering Physician: Stephen eSxton MD ?? Date of Service: 05/01/24 ?? Procedure(s): XR hip LT w PEL1V ?? Accession Number(s): [id number] ? cc: Stephen Sexton MD; Gregg Gandhi [...] DD/ 0009 ? TD/TT: 05/02/24 0009 ? Small Lot Operator: ? Procedure Note Donotheribertointerpreter, Image - 05/02/[address] [address] XRay Report Signed Patient: Eulalia Ayala#: [id number] 4 : 9Acct:[id number] Age/Sex: 63 / FADM Date: 05/01/24 Loc: HO.ED Attending Dr: Ordering Physician: Stephen Sexton MD Date of Service: 05/01/24 Procedure(s): XR hip LT w PEL1V Accession Number(s): [id number] cc: Stephen Sexton MD; Name,Gregg DIAMOND CLINICAL [...] in OV> 05/02/24 0011 DD/ TD/TT: 05/02/248 Small Lot Operator: [facility] External Provider IMG XR PROCEDURES Edited [...] EST Narrative 05/05/2023 8:29 AM EDT ? [facility] ? [address] ?[place], [place] [address] ? Mammography Report ? Signed ? Patient: Ayala,Mag ?MR#: [id number] ?? 4 ? : 1960 ?Acct:[id number] ? Age/Sex: 62 / F ?ADM Date: 04/20/23 ? Loc: HO.MAMMO ? Attending Dr: Gregg Name MD ? Ordering Physician: Name,Gregg MD ?Results: 1Negative ? Date of Service: 04/20/23 ?Follow Up: 1 Year From Orig ?? inal Mammogram ? Procedure(s): MM tomosynthesis screening BI ?? Accession Number(s): [id number] ? cc: Name,Gregg DIAMOND ? EXAMINATION: ?? [...] signed by Alverto Carrington MD in OV> ?05/05/2325 ? DD/ 1205 ? TD/TT: ? Small Lot Operator: ? Procedure Note Laron, Image - 05/05/2023 [place] [facility] [address] [place] [address] Mammography Report Signed Patient: Riccardo AyalanMR#: [id number] 4 : 9Acct:[id number] Age/Sex: 62 / FADM Date: 04/20/23 Loc: HO.MAMMO Attending Dr: Gregg Gandhi MD Ordering Physician: Gregg Gandhi MDResults: 1Negative Date of Service: 04/20/23Follow Up: 1 Year From Orig inal Mammogram Procedure(s): MM tomosynthesis screening BI Accession Number(s): [id number] cc: Gregg Gandhi MD EXAMINATION: MM SCREENING [...] in OV> 05/05/23 0825 DD/ 1205 TD/TT: Small Lot Operator: Gregg Name IMG BI PROCEDURES Final Result * Hm Colonoscopy (08/08/2020 1:49 PM EDT) Pathologist [facility] Colonoscopy Normal Normal Narrative Anastasia Dykes - [...] ?? LDL-C is now calculated using the Darek-Haines ?? calculation, which is a validated novel method providing ?? better accuracy than the Friedewald equation in the ?? estimation of LDL-C. ?? Darek SS et al. BOO. 2013;310(19): 6361-1589 ?? (http://education.Hemosphere/faq/MDA435) Non-HDL Cholesterol 125 <130 mg/dL (calc) [facility] Comment: For patients with diabetes plus 1 major ASCVD risk ?? factor, treating to a non-HDL-C goal of <100 mg/dL ?? (LDL-C of <70 mg/dL) is considered a therapeutic ?? option. Triglycerides 80 <150 mg/dL [facility] 05/20/2020 9:32 AM EDT us Gregg Gandhi MD LAB BLOOD ORDERABLES Final Resul t [facility] [address] [place] [address], from Last 3 Months or Most Recently Relevant to Health Maintenance Insurance [facility] STANDARD DENTAL - [facility] Care Teams Custom Marine Canvas Fabricator Relationship Specialty Start Date End Date Name, MD Gregg [address] [place] [address] PCP - General Family Medicine 04/16/15
--- OUTSIDE RECORDS SUMMARY | 2024-05-25 09:27 | XMS_ITS | Encounter Summary ---
Author Organization [employer] Address [address] [facility] 7t [place] [address] Care Team Providers Care Floorhand Name Role Phone Name, Gregg DIAMOND Primary Care Provider [phone] Encounter Details Date Type Department Care Team (Late st Contact Info) Description 07/20/2022 Abstract [facility] [address] [place] [address] Name, MD Gregg [address] [place] [address] Social History Tobacco Use Types Packs/Day Years [...] 8:30 AM EDT Office Visit [facility] [address] [place] [address] Ayan Calvin DMD 230 [place] [address] 07/17/2024 11:30 AM EDT Office Visit [facility] [address] [place] [address] Name, MD Gregg [address] [place] [address] 09/21/2024 8:00 AM EDT Office Visit [facility] [address] [place] [address] Faye Mi documented as of this encounter [...] documented as of this encounter Care Teams Floorhand Relationship Specialty Start Date End Date Name, MD Gregg [facility] [place] [address] PCP - General Family Medicine 04/16/15 documented as of this encounter
--- OUTSIDE RECORDS SUMMARY | 2024-05-25 09:27 | XMS_ITS | Encounter Summary ---
Author Organization [employer] Address [address] [facility] [address] 7t [place] [address] Care Team Providers Care Electromedical Equipment Repairer Name Role Phone Name, Gregg DIAMOND Primary Care Provider [phone] Reason for Visit * Reason Comments Med Refill Encounter Details Date Type Department Care Team ([facility] st Contact Info) Description 07/13/2023 Refill [facility] [address] [place] [address] Ban Granados FNP [address] [place] [address] Social History Tobacco Use Types Packs/Day Years [...] t he electric, gas, oil or water [employer] threatened to shut off services in your [...] 3:57 PM EDT Pt came into the [facility] asking for refills on Wegomy meds. She wants Dr. Granados to send the refill in two days to be able to pick up worker in pharmacy. 07/13/23 documented in this encounter Plan of Treatment Upcoming Encounters Date Type Department Care Team (Late st Contact Info) Description 05/26/2024 8:30 AM EDT Office Visit [facility] [address] [place] [address] Ayan Calvin, RAMIREZ [address] [place] [address] 07/17/2024 11:30 AM EDT Office Visit [facility] [address] [place] [address] Name, MD Gregg 230 [place] [address] 09/21/2024 8:00 AM EDT Office Visit [facility] [address] [place] [address] Faye Mi documented as of this encounter Visit Diagnoses Not on filedocumented in this encounter Additional Health Concerns Assessment Noted Time PHQ-9 Depression Total Score: 7 03/04/19 23 9:17 AM EST documented as of this encounter Care Teams Electromedical Equipment Repairer Relationship Specialty Start Date End Date Gregg Gandhi MD [address] [place] [address] PCP - General Family Medicine 04/16/15 documented as of this encounter
--- OUTSIDE RECORDS SUMMARY | 2024-05-25 09:27 | XMS_ITS | Encounter Summary ---
Author Organization [employer] [facility] Address 75 [facility] 7t [place] [address] Care Team Providers Care Table Games Dealer Name Role Phone Name, Gregg DIAMOND Primary Care Provider [phone] Encounter Details Date Type Department Care Team (Latest Contact Info) Description 12/25/2019 Abstract [facility] CONVERSIONS Dental, Provider, DDS Social History Tobacco [...] Description 05/26/2024 8:30 AM EDT Office Visit [facility]ULT [facility] [address] [place] [address] Ayan Calvin DMD [address] [place] [address] 07/17/2024 11:30 AM EDT Office Visit [facility] 230 [place] [address] Name, MD Gregg [address] [place] [address] 09/21/2024 8:00 AM EDT Office Visit [facility] [address] [place] [address] Faye Mi documented as of this encounter Visit Diagnoses Not on filedocumented in this encounter Care Teams Table Games Dealer Relationship Specialty Start Date End Date Name, MD Gregg [address] [place] [address] PCP - General Family Medicine 04/16/15 documented as of this encounter
--- OUTSIDE RECORDS SUMMARY | 2024-05-25 09:27 | XMS_ITS | Encounter Summary ---
Author Organization [facility] Address 75 [facility] 7t [place] [address] Care Team Providers Care Shoe Coverer Name Role Phone Name, Gregg DIAMOND Primary Care Provider [phone] Encounter Details Date Type Department Care Team (Latest Contact Info) Description 09/27/2018 Abstract [facility] CONVERSIONS Dental, Provider, DDS Social History [...] Description 05/26/2024 8:30 AM EDT Office Visit [facility] ADULT DENT[facility] [address] [place] [address] Ayan Calvin DMD [address] [place] [address] 07/17/2024 11:30 AM EDT Office Visit [facility] [address] [place] [address] Name, MD Gregg [address] [place] [address] 09/21/2024 8:00 AM EDT Office Visit [facility] ADULT [facility] [address] [place] [address] Faye Mi documented as of this encounter Visit Diagnoses Not on filedocumented in this encounter Care Teams Shoe Coverer Relationship Specialty Start Date End Date Name, MD Gregg [address] [place] [address] PCP - General Family Medicine 04/16/15 documented as of this encounter
--- OUTSIDE RECORDS SUMMARY | 2024-05-25 09:27 | XMS_ITS | Encounter Summary ---
Author Organization [employer] Address 75 [facility] 7t [place] [address] Care Team Providers Care Resident Care Provider Name Role Phone Name, Gregg DIAMOND Primary Care Provider Reason for Visit * Reason Comments Med Refill Encounter Details Date Type Department Care Team (Late Contact Info) Description 03/04/2022 Refill [facility] [address] [place] [address] Name, MD Gregg [address] [place] [address] Osteoporosis, unspecified osteoporosis type, unspecified pathological fracture [...] Description 05/26/2024 8:30 AM EDT Office Visit [facility]ULT [facility] [address] [place] [address] Ayan Calvin, RAMIREZ [address] [place] [address] 07/17/2024 11:30 AM EDT Office Visit [facility] [address] [place] [address] Name, MD Gregg [address] [place] [address] 09/21/2024 8:00 AM EDT Office Visit [facility] [address] [place] [address] Faye Mi documented as of this encounter Visit Diagnoses Diagnosis Osteoporosis, unspecified osteoporosis type, unspecified pathological fracture presence documented in this encounter Additional Health Concerns Assessment Noted Time PHQ-9 Depression Total Score: 7 03/04/19 23 9:17 AM EST documented as of this encounter Care Teams Resident Care Provider Relationship Specialty Start Date End Date Name, MD Gregg [address] [place] [address] PCP - General Family Medicine 04/16/15 documented as of this encounter
--- OUTSIDE RECORDS SUMMARY | 2024-05-25 09:27 | XMS_ITS | Encounter Summary ---
Author Organization [employer] Address [address] [facility] [address] 7t [place] [address] Care Team Providers Care Movement Therapist Name Role Phone Name, Gregg DIAMOND Primary Care Provider [phone] Reason for Visit * Reason Onset Date Comments Nurse Triage 11/27/2022 Encounter Details Date Type Department Care Team ([facility] st Contact Info) Description 11/27/2022 Telephone [facility] [address] [place] [address] Name, MD Gregg [address] [place] [address] Nurse Triage Social History Tobacco Use Types Packs/Day Years Used Date Smoking Tobacco: Former Cigarettes Passive Smoke Exposure: Past Smokeless Tobacco: Never Alcohol Use Standard Drinks/Week Comments Not Currently 0 (1 standard drink = 0.6 oz pur e alcohol) Depression Answer Date Recorded Patient Health Questionnaire-9 Score 7 03/04/2022 Housing Stability Answer Date Recorded What is your housing situation today? I have olly loredo 11/30/[address] you [...] caller accepted this outcome Does not need butcher apprentice . documented in this encounter Plan of Treatment Upcoming Encounters Date Type Department Care Team (Late st Contact Info) Description 05/26/2024 8:30 AM EDT Office Visit [facility] ADULT DENTAL [address] [place] [address] Ayan Calvin DMD [address] [place] [address] 07/17/2024 11:30 AM EDT Office Visit [facility] [address] [place] [address] Name, MD Gregg 230 [place] [address] 09/21/2024 8:00 AM EDT Office Visit [facility] [address] [place] [address] Faye Mi documented as of this encounter Visit Diagnoses Not on filedocumented in this encounter Additional Health Concerns Assessment Noted Time PHQ-9 Depression Total Score: 7 03/04/19 23 9:17 AM EST documented as of this encounter Care Teams Movement Therapist Relationship Specialty Start Date End Date Name, MD Gregg [address] [place] [address] PCP - General Family Medicine 04/16/15 documented as of this encounter
--- OUTSIDE RECORDS SUMMARY | 2024-05-25 09:27 | XMS_ITS | Encounter Summary ---
Author Organization [employer] Address [address] 7[address] [place] [address] Care Team Providers Care Fruit I Farmworker Name Role Phone Name, Gregg DIAMOND Primary Care Provider [phone] Reason for Visit * Reason Onset Date Comments PT1 02/25/2023 Encounter Details Date Type Department Care Team ([facility] st Contact Info) Description 02/25/2023 Telephone [facility] MEDICINE [address] [place] [address] Name, MD Gregg [address] [place] [address] PT1 Social History Tobacco Use Types Packs/Day [...] - valid through 06/2023 [facility] neurology - [id number] authorized Dr Chakraborty - [id number] pending [facility] - [id number] authorized [facility] - [id number] authorized Renal & Trans - [id number] authorized ENT - [id number] pending [facility] medical office - [phone] pending * Telephone Encounter - Cameron Su - 02/25/2023 4:29 PM EST PT1 needed Date: N/A Time: N/A Visits: 2 or 3 monthly Address: [address] [facility] [facility] Facility: [facility] Cardiovascular Wheel Chair: No Director Digital Analytics Needed: No PT1 needed Date: N/A Time: N/A Visits: 2 or 3 Monthly Address: [address] [facility] Facility: [facility] Neurology Wheel No Director Digital Analytics Needed: No PT1 needed Date: N/A Time: N/A Visits: 2 or 3 Monthly Address: [address] [facility] Facility: Dr Chakraborty Wheel Chair: No Director Digital Analytics Needed: No PT1 needed Date: N/A Time: N/A Visits: 2 or 3 Monthly Address: [address] [place] [address] dr LambertRafy [place] Facility: [facility] General Surgery Wheel Chair: No Director Digital Analytics Needed: No PT1 needed Date: N/A Time: N/A Visits: 2 or 3 Monthly Address: [address] [place] [address] Facility: [facility] Wheel Chair: No Director Digital Analytics Needed: No PT1 needed Date: N/A Time: N/A Visits: 2 or 3 monthly Address: [address] [facility] Facility: [facility] Wheel Chair: No Director Digital Analytics Needed: No PT1 needed Date: N/A Time: N/A Visits: 2 or 3 monthly Address: [address] [facility] Facility: [facility] Wheel Chair: No Director Digital Analytics Needed: No PT1 needed Date: N/A Time: N/A Visits: 2 or 3 Monthly Address: [address] [facility] [address] Cesia DESOUZA Facility: [facility] medical Office Wheel Chair: No Director Digital Analytics Needed: No PT1 needed Date: N/A Time: N/A Visits: 2 or 3 Monthly Address: [address] [place] [address] Facility: [facility] Wheel Chair: No Director Digital Analytics Needed: No documented in this encounter Plan of Treatment Upcoming Encounters Date Type Department Care Team (Late st Contact Info) Description 05/26/2024 8:30 AM EDT Office Visit [facility] ADULT DENTAL [address] [place] [address] Ayan Calvin, RAMIREZ [address] [place] [address] 07/17/2024 11:30 AM EDT Office Visit [facility] MEDICINE [address] [place] [address] Name, MD Gregg [address] [place] [address] 09/21/2024 8:00 AM EDT Office Visit [facility] ADULT DENTAL [address] [place] [address] Faye Mi documented as of this encounter Visit Diagnoses Not on filedocumented in this encounter Additional Health Concerns Assessment Noted Time PHQ-9 Depression Total Score: 7 03/04/19 23 9:17 AM EST documented as of this encounter Care Teams Fruit I Farmworker Relationship Specialty Start Date End Date Name, MD Gregg [address] [place] [address] PCP - General Family Medicine 04/16/15 documented as of this encounter
--- OUTSIDE RECORDS SUMMARY | 2024-05-25 09:27 | XMS_ITS | Encounter Summary ---
Author Organization [email or web address] [facility] Address [address] [facility] 7t [place] [address] Care Team Providers Care Shell Maker Lockstitch Name Role Phone Name, Gregg DIAMOND Primary Care Provider [phone] Reason for Visit * Reason Comments Med Refill Encounter Details Date Type Department Care Team ( Contact Info) Description 10/06/2022 Refill [facility] MEDICINE [address] [place], [place] [phone] Name, MD Gregg [address] [place] [address] Osteoporosis, unspecified osteoporosis type, unspecified pathological fracture [...] Description 05/26/2024 8:30 AM EDT Office Visit [facility] ADULT DENTAL [address] [place] [address] Ayan Calvin, RAMIREZ [address] [place], [place] [phone] 07/17/2024 11:30 AM EDT Office Visit [facility] MEDICINE [address] [place] [address] Name, MD Gregg [address] [place] [address] 09/21/2024 8:00 AM EDT Office Visit [facility] ADULT DENTAL [address] [place] [address] Faye Mi documented as of this encounter Visit Diagnoses Diagnosis Osteoporosis, unspecified osteoporosis type, unspecified pathological fracture presence documented in this encounter Additional Health Concerns Assessment Noted Time PHQ-9 Depression Total Score: 7 03/04/19 23 9:17 AM EST documented as of this encounter Care Teams Shell Maker Lockstitch Relationship Specialty Start Date End Date Name, MD Gregg [address] [place] [address] PCP - General Family Medicine 04/16/15 documented as of this encounter
== END 2024-05-25 09:52 | disposition home or self-care (01) ==
LOC: HO.HOS 08:54
PROVIDERS: PCP Internal Medicine Geriatric Medicine; Visit Provider Physician Assistant
DX: M17.0 Bilateral primary osteoarthritis of knee (principal)
CPT/HCPCS: 20610

== ENCOUNTER → 2024-05-25 08:54 | Outpatient (BNVA) | payer OTHER, SELFPAY | PROVIDERS: PCP Internal Medicine Geriatric Medicine; Visit Provider Physician Assistant | DX: M17.0 Bilateral primary osteoarthritis of knee (principal) | CPT/HCPCS: 20610; J7323 ==

== ENCOUNTER 2024-05-31 16:13 | Outpatient (REF) | payer OTHER, SELFPAY ==
--- NOTE | ~2024-05-31 | MR_ITS ---
EXAMINATION: MR LUMBAR SPINE WITHOUT CONTRAST CLINICAL INFORMATION: Sacroiliitis, not elsewhere classified. COMPARISON: March 03, 2012. TECHNIQUE: MRI of the lumbar spine was obtained using routine sequences without contrast. FINDINGS: Last rib-bearing vertebra labeled T12. No bone marrow STIR signal abnormality. Multilevel marginal osteophyte formation and disc desiccation more conspicuous at T11-12. Focal hyperintense T2 signal in the posterior intervertebral disc L3-4 and L4-5 S1 likely annular fissure. There is a 1 mm anterolisthesis L3-4 and L1-2 levels. Conus medullaris ends at inferior endplate of T12 with normal signal. T11-12: No disc herniation. No neuroforamina stenosis. Facet joint and ligamentum flavum hypertrophy. T12-L1: Broad-based disc bulging. Facet joint hypertrophy. No compression upon neural elements. L1-2: Broad-based disc bulging. Facet joint and ligamentum flavum hypertrophy. Reduced AP diameter of the thecal sac and the neural foramina. No compression upon neural elements. L2-3: Broad-based disc bulging. Facet joint and ligamentum flavum hypertrophy. Reduced AP diameter of the thecal sac and the neural foramina. No compression upon neural elements. L3-4: Central broad-based disc herniation. Facet joint and ligamentum flavum hypertrophy. Reduced AP diameter of the thecal sac encroaching the neural elements. Bilateral neuroforamina narrowing without compressing the exiting nerve roots. L4-5: Broad-based disc bulging. Facet joint and ligamentum flavum hypertrophy. Reduced AP diameter of the thecal sac encroaching the L5 nerve root on the lateral recesses. Bilateral neuroforamina narrowing encroaching the L4 exiting nerve roots. L5-S1: Broad-based disc bulging. Focal hyperintense T2 signal in the posterior right disc. Reduced AP diameter of the thecal sac encroaching the S1 nerve roots. No neuroforamina stenosis. No prevertebral compartment hematoma, mass or fluid collection. Multifocal hyperintense T2 cystic lesions in the parapelvic kidneys, bilaterally. MR/MR lumbar spine wo con IMPRESSION: Multilevel thoracolumbar spondylosis more conspicuous at L3-4 and L4-5 and L5-S1 levels resulting in central spinal canal stenosis encroaching the nerve roots on the lateral recesses. Parapelvic renal cysts, bilaterally. Electronically signed by: Brennon Crarillo MD 06/01/2024 07:58 AM EDT RP
--- OUTSIDE RECORDS SUMMARY | 2024-05-31 18:14 | XMS_ITS | Encounter Summary ---
Author Organization [employer] Address [address] 7[address] [place] [address] Care Team Providers Care Law Tutor Name Role Phone Name, Gregg DIAMOND Primary Care Provider [phone] Reason for Visit * Reason Onset Date Comments PT1 07/27/2023 Encounter Details Date Type Department Care Team ([facility] st Contact Info) Description 07/27/2023 Telephone [facility] MEDICINE [address] [place] [address] Name, MD Gregg [address] [place] [address] PT1 Social History Tobacco Use Types Packs/Day [...] name: Dr. Carson Smith MD Facility Address: [address] [place] [address] [address], [facility], [address] Escort needed: Y/N: No Do you have a wheelchair: Y/N: No If yes- Manual or electric: Visits: 2-3 Next upcoming appt 08/03/23 documented in this encounter Plan of Treatment Upcoming Encounters Date Type Department Care Team (Late st Contact Info) Description 07/06/2024 9:00 AM EDT Office Visit [facility] ADULT DENTAL [address] [place] [address] Ayan Calvin DMD [address] [place] [address] 07/17/2024 11:30 AM EDT Office Visit [facility] MEDICINE [address] [place] [address] Name, MD Gregg [address] [place], [place] [phone] 09/21/2024 8:00 AM EDT Office Visit [facility] ADULT DENTAL [address] [place] [address] Faye Mi documented as of this encounter Visit Diagnoses Not on filedocumented in this encounter Additional Health Concerns Assessment Noted Time PHQ-9 Depression Total Score: 7 03/04/19 23 9:17 AM EST documented as of this encounter Care Teams Law Tutor Relationship Specialty Start Date End Date Name, MD Gregg [address] [place] [address] PCP - General Family Medicine 04/16/15 documented as of this encounter
--- OUTSIDE RECORDS SUMMARY | 2024-05-31 18:14 | XMS_ITS | Encounter Summary ---
Author Organization [employer] Address [address] 7[address] [place] [address] Care Team Providers Care Admitting Office Escort Name Role Phone Name, Gregg DIAMOND Primary Care Provider [phone] Reason for Visit * Reason Onset Date Comments clarification of tx 08/09/2023 Encounter Details Date Type Department Care Team (Late st Contact Info) Description 08/09/2023 Telephone [facility] ADULT DENTAL [address] [place] [address] Ayan Calvin, DMD [address] [place] [address] clarification of tx Social History Tobacco Use [...] you to call her. She went to [facility] for [facility] today but is looking [...] Description 07/06/2024 9:00 AM EDT Office Visit [facility] ADULT DENTAL [address] [place] [address] Ayan Calvin, RAMIREZ [address] [place] [address] 07/17/2024 11:30 AM EDT Office Visit [facility] MEDICINE [address] [place] [address] Name, MD Gregg [address] [place] [address] 09/21/2024 8:00 AM EDT Office Visit [facility] ADULT DENTAL [address] [place] [address] Faye Mi documented as of this encounter Visit Diagnoses Not on filedocumented in this encounter Additional Health Concerns Assessment Noted Time PHQ-9 Depression Total Score: 7 03/04/19 23 9:17 AM EST documented as of this encounter Care Teams Admitting Office Escort Relationship Specialty Start Date End Date Name, MD Gregg [address] [place] [address] PCP - General Family Medicine 04/16/15 documented as of this encounter
--- OUTSIDE RECORDS SUMMARY | 2024-05-31 18:14 | XMS_ITS | Encounter Summary ---
Author Organization [employer] Address [address] 7t [place] [address] Care Team Providers Care Solid Waste Engineer Name Role Phone Name, Gregg DIAMOND Primary Care Provider [phone] Reason for Visit * Reason Comments Med Refill Encounter Details Date Type Department Care Team ([facility] st Contact Info) Description 08/03/2023 Refill [facility] MEDICINE [address] [place], [place] [phone] Name, MD Gregg [address] [place] [address] Social History Tobacco Use Types Packs/Day Years [...] the past 12 months, has t he [employer] oil or water company threatened to shut [...] Description 07/06/2024 9:00 AM EDT Office Visit [facility] ADULT DENTAL [address] [place] [address] Ayan Calvin DMD [address] [place] [address] 07/17/2024 11:30 AM EDT Office Visit [facility] MEDICINE [address] [place] [address] Name, MD Gregg [address] [place] [address] 09/21/2024 8:00 AM EDT Office Visit [facility] ADULT DENTAL [address] [place] [address] Faye Mi documented as of this encounter Visit Diagnoses Not on filedocumented in this encounter Additional Health Concerns Assessment Noted Time PHQ-9 Depression Total Score: 7 03/04/19 23 9:17 AM EST documented as of this encounter Care Teams Solid Waste Engineer Relationship Specialty Start Date End Date NameGregg MD [address] [place] [address] PCP - General Family Medicine 04/16/15 documented as of this encounter
--- OUTSIDE RECORDS SUMMARY | 2024-05-31 18:14 | XMS_ITS | Encounter Summary ---
Author Organization [employer] Address [address] 7[address] [place] [address] Care Team Providers Care Dining Room Captain Name Role Phone Name, Gregg DIAMOND Primary Care Provider [phone] Reason for Visit * Reason Comments Med Refill Encounter Details Date Type Department Care Team ([facility] st Contact Info) Description 02/14/2024 Refill [facility] MEDICINE [address] [place], [place] [phone] Name, MD Gregg [address] [place] [address] Social History Tobacco Use Types Packs/Day Years [...] Description 07/06/2024 9:00 AM EDT Office Visit [facility] ADULT DENTAL [address] [place] [address] Ayan Calvin, RAMIREZ [address] [place] [address] 07/17/2024 11:30 AM EDT Office Visit [facility] MEDICINE [address] [place] [address] Name, MD Gregg [address] [place] [address] 09/21/2024 8:00 AM EDT Office Visit [facility] ADULT DENTAL [address] [place] [address] Faye Mi documented as of this encounter Visit Diagnoses Not on filedocumented in this encounter Additional Health Concerns Assessment Noted Time PHQ-9 Depression Total Score: 0 09/01/19 24 10:42 AM EDT documented as of this encounter Care Teams Dining Room Captain Relationship Specialty Start Date End Date Name, MD Gregg [address] [place] [address] PCP - General Family Medicine 04/16/15 documented as of this encounter
--- OUTSIDE RECORDS SUMMARY | 2024-05-31 18:14 | XMS_ITS | Encounter Summary ---
Author Organization [employer] Address [address] [place] [address] Care Team Providers Care Staff Design Engineer Name Role Phone Name, Gregg DIAMOND Primary Care Provider [phone] Reason for Visit * Reason Onset Date Comments Request For Order(s) 07/30/2023 Encounter Details Date Type Department Care Team ([facility] st Contact Info) Description 07/30/2023 Telephone [facility] MEDICINE [address] [place], [place] [phone] Name, MD Gregg [address] [place] [address] Request For Order(s) Social History Tobacco Use [...] done. Please clarify Please contact pt at [phone] (No park interpreter needed) documented in this encounter Plan of Treatment Upcoming Encounters Date Type Department Care Team (Late st Contact Info) Description 07/06/2024 9:00 AM EDT Office Visit [facility] ADULT DENTAL [address] [place] [address] Ayan Calvin DMD [address] [place] [address] 07/17/2024 11:30 AM EDT Office Visit [facility] MEDICINE [address] [place] [address] Name, MD Gregg [address] [place] [address] 09/21/2024 8:00 AM EDT Office Visit [facility] ADULT DENTAL [address] [place] [address] Faye Mi documented as of this encounter Visit Diagnoses Not on filedocumented in this encounter Additional Health Concerns Assessment Noted Time PHQ-9 Depression Total Score: 7 03/04/19 23 9:17 AM EST documented as of this encounter Care Teams Staff Design Engineer Relationship Specialty Start Date End Date NameGregg MD [address] [place] [address] PCP - General Family Medicine 04/16/15 documented as of this encounter
--- OUTSIDE RECORDS SUMMARY | 2024-05-31 18:15 | XMS_ITS | Encounter Summary ---
Author Organization [employer] Address [address] 7[address] [place] [address] Care Team Providers Care Dimensional Integration Engineer Name Role Phone Name, Gregg DIAMOND Primary Care Provider [phone] Encounter Details Date Type Department Care Team ([facility] st Contact Info) Description 05/24/[address] [facility] MEDICINE [address] [place], [place] [phone] Name, MD Gregg [address] [place] [address] Social History Tobacco Use Types Packs/Day Years [...] Description 07/06/2024 9:00 AM EDT Office Visit [facility] ADULT DENTAL [address] [place] [address] Ayan Calvin, RAMIREZ [address] [place] [address] 07/17/2024 11:30 AM EDT Office Visit [facility] MEDICINE [address] [place] [address] Name, MD Gregg [address] [place] [address] 09/21/2024 8:00 AM EDT Office Visit [facility] ADULT DENTAL [address] [place] [address] Faye Mi documented as of this encounter Visit Diagnoses Not on filedocumented in this encounter Additional Health Concerns Assessment Noted Time PHQ-9 Depression Total Score: 0 09/01/19 24 10:42 AM EDT documented as of this encounter Care Teams Dimensional Integration Engineer Relationship Specialty Start Date End Date Name, MD Gregg [address] [place] [address] PCP - General Family Medicine 04/16/15 documented as of this encounter
--- OUTSIDE RECORDS SUMMARY | 2024-05-31 18:15 | XMS_ITS | Data Portability ---
Author Organization [place] - [facility], Allergy Address [address] [place] [id number] Assessment No assessment recorded. Plan of Treatment [...] Details Recorded Time Otorrhea of right ear [id number] Active 2020 Otorrhea, right ear; Note: Date Diagnosed : 04/15/2020 9:41 AM (H92.11) Not Available [facility] 4 02:41:49 Sensorine ural hearing loss 29090107 Active 2014 Sensorine ural hearing loss, unilatera l, right ear, with unrestric peggy hearing on the contralat eral side; Note: Date Diagnosed : 5 1:13 PM (H90.41) Not Available [facility] 4 02:41:50 Impacted cerumen of bilateral ears [id number] 77249 Active 2015 Impacted cerumen, bilateral ; Note: Date Diagnosed : 08/12/2015 12:36 PM (H61.23) Not Available [facility] 4 02:41:46 Impacted cerumen 94718209 Active 2014 Disorders of external ear: Impacted cerumen; Note: Date Diagnosed : 11/12/2014 9:15 PM (380.4) Not Available [facility] 4 02:41:52 Infective otitis externa of left ear [id number] 91820 Active 2014 Other infective otitis externa, left ear; Note: Date Diagnosed : 11/15/2014 4:59 PM (H60.392) Not Available [facility] 4 02:41:47 Impacted cerumen in left ear 28014194549 06076 Active 2014 Impacted cerumen, left ear; Note: Date Diagnosed : 11/15/2014 4:59 PM (H61.22) Not Available [facility] 4 02:41:51 Mixed conductiv e and sensorine ural hearing loss of left ear 30908663961 107 Active 2014 Mixed conductiv e and sensorine ural hearing loss, unilatera l, left ear, with unrestric peggy hearing on the contralat eral side; Note: Date Diagnosed : 11/15/2014 5:00 PM (H90.72) Not Available [facility] 4 02:41:46 Dysphonia 24998551 Active 2016 Dysphonia ; Note: Date Diagnosed : 05/13/2016 10:26 AM (R49.0) Not Available [facility] 4 02:41:43 Sensorine ural hearing loss of bilateral ears 147776818 Active 2016 Sensorine ural hearing loss, bilateral ; Note: Date Diagnosed : 7 4:52 PM (H90.3) Sensori neural hearing loss, bilateral ; Note: Date Diagnosed : 08/12/2015 11:37 AM (H90.3) ; Start Date : 6 Not Available [facility] 4 02:41:48 Dizziness and giddiness 725530336 Active 2016 Dizziness and giddiness ; Note: Date Diagnosed : 08/17/2016 1:43 PM (R42) Not Available [facility] 4 02:41:51 Chronic pharyngit is 151282 Active 2016 Chronic sore throat; Note: Date Diagnosed : 05/13/2016 10:24 AM (J31.2) Not Available [facility] 4 02:41:44 Unilatera l sensorine ural hearing loss with unrestric peggy hearing on the contralat eral side Active 2014 Sensorine ural HL, unilatera l; Note: Date Diagnosed : 11/12/2014 9:56 PM (389.15) Not Available [facility] 4 02:41:44 Benign paroxysma l positiona l vertigo 833765260 Active 2020 Benign paroxysma l vertigo, left ear; Note: Date Diagnosed : 1 9:47 AM (H81.12) Not Available [facility] 4 02:41:53 Itching of skin 704363198 Active 2016 Other pruritus; Note: Date Diagnosed : 04/10/2016 11:46 AM (L29.8) Not Available [facility] 4 02:41:47 Infective otitis externa 87931864 Active 2014 Acute otitis externa; Note: Date Diagnosed : 11/12/2014 9:55 PM (380.10) Not Available [facility] 4 02:41:48 Mixed conductiv e and sensorine ural hearing loss of right ear 28686156972 105 Active 2014 Mixed conductiv e and sensorine ural hearing loss, unilatera l, right ear, with unrestric peggy hearing on the contralat eral side; Note: Date Diagnosed : 11/15/2014 5:00 PM (H90.71) Not Available [facility] 4 02:41:49 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 hearing on the contralat eral side Active 2014 Mixed hearing loss, unilatera l; Note: Date Diagnosed : 11/12/2014 9:56 PM (389.21) Not Available [facility] 4 02:41:46 Problem Notes None recorded. Medical Equipment None Reported. Medications Name Sig Start Date Stop Date Status Note LastModified by Organization Details LastModified Time medbox status USE DIRECTED active Not Available Not Available No t Available cyclobenz aprine 10 mg tablet 2018 active Medicati on ID: [id number] D uration Value: 10 Brand Name: cycloben [...] by mouth 03/20 completed Medicati on ID: [id number] Du ration Value: 7 Brand Name: Augmenti n Send Method: E-Prescr ibed Sub s Allowed: subs OK Medic ationGen ericName : Augmenti n Not Available Not Available Not Available Qvar 80 mcg/actua tion Metered Aerosol oral inhaler 03/20 completed Medicati on ID: [id number] D uration Value: 30 Brand Name: Qvar [...] mg tablet 03/21 completed Medicati on ID: [id number] D uration Value: 30 Reason: () Brand Name: dorene rubio Method: E-Prescr ibed Sub s Allowed: subs OK Medic ationGen ericName : perphena nikhil Not Available Not Available Not Available ipratropi um 0.5 mg-albute rol 3 mg (2.5 mg base)/3 mL nebulizat ion soln 03/20 completed Medicati on ID: [id number] D uration Value: 7 Brand Name: ipratrop [...] 2 drop 03/20 completed Medicati on ID: [id number] Du ration Value: 7 Prescri bed By [...] ear drops 03/20 completed Medicati on ID: [id number] Br and Name: Debrox S end Method: [...] 3 drop 03/20 completed Medicati on ID: [id number] D uration Value: 10 Brand Name: Pred [...] mg tablet 03/21 completed Medicati on ID: [id number] D uration Value: 28 Reason: () Brand Name: oxycodon e-acetam inophen Send Method: E-Prescr ibed Sub s Allowed: subs OK Medic ationGen ericName : oxycodon e-acetam inophen Not Available Not Available Not Available ofloxacin 0.3 % ear drops Apply 5 drop into both ears twice a day 03/20 completed Medicati on ID: [id number] D uration Value: 7 Brand Name: ofloxaci [...] mg tablet 12/22 completed Medicati on ID: [id number] Re ason: () Brand Name: Klonopin Send Method: E-Prescr ibed Sub s Allowed: subs OK Medic ationGen ericName : Klonopin Not Available Not Available Not Available meclizine 25 mg tablet TAKE 1 TABLET BY MOUTH TWICE DAILY NEEDED active Not Available Not Available No t Available baclofen 10 mg tablet 2018 active Medicati on ID: [id number] D uration Value: 30 Brand Name: baclofen Send Method: E-Prescr ibed Sub s Allowed: subs OK Speci al Instruct ion: TAKE 1 TABLET TWICE DAILY Me dication GenericN galindo: baclofen Not Available Not Available Not Available doxepin 100 mg capsule 09/30 completed Medicati on ID: [id number] Re ason: () Brand Name: doxepin Send Method: E-Prescr ibed Sub s Allowed: subs OK Medic ationGen ericName : doxepin Not Available Not Available Not Available oseltamiv ir 75 mg capsule TAKE 1 CAPSULE BY MOUTH TWICE DAILY FOR 5 DAYS 03/20 completed Not Available Not Available Not Available levothyro xine 125 mcg tablet 03/21 completed Medicati on ID: [id number] D uration Value: 30 Reason: () Brand [...] for pain 03/21 completed Medicati on ID: [id number] Re ason: () Brand Name: oxycodon e Send Method: E-Prescr ibed Sub s Allowed: subs OK Medic ationGen ericName : oxycodon e Not Available Not Available Not Available clotrimaz ole 1 % topical solution 03/20 completed Medicati on ID: [id number] P rescribe d By Name: Josue johnson [...] elayed release 03/20 completed Medicati on ID: [id number] D uration Value: 30 Brand Name: omeprazo le Send Method: E-Prescr ibed Sub s Allowed: subs OK Speci al Instruct ion: TAKE 1 CAPSULE BY MOUTH EVERY DAY 30 MINUTES TO 1 HOUR BEFORE MEALS Me dication GenericN galindo: omeprazo le Not Available Not Available Not Available Cortispor in 3.5 mg/g-10,0 00 unit/g-0. 5 % topical cream 12/22 completed Medicati on ID: 53747 Re ason: () Brand Name: Cortispo rin Send Method: E-Prescr ibed Sub s Allowed: subs OK Medic ationGen ericName : Cortispo rin Not Available Not Available Not Available topiramat e 200 mg tablet 03/20 completed Medicati on ID: [id number] D uration Value: 30 Brand Name: topirama [...] mg tablet 03/20 completed Medicati on ID: [id number] D uration Value: 20 Brand Name: ibuprofe [...] left ear 03/20 completed Medicati on ID: 548563 D uration Value: 7 Brand Name: Cortispo [...] drops,rigo pension 03/20 completed Medicati on ID: 488459 D uration Value: 14 Brand Name: TobraDex Send Method: E-Prescr ibed Sub s Allowed: subs OK Speci al Instruct ion: Instill 3 drops in the affect ear BID for 10 days Med icationG enericNa me: TobraDex Not Available Not Available Not Available Flovent HFA 220 mcg/actua tion aerosol inhaler 03/20 completed Medicati on ID: [id number] D uration Value: 60 Brand Name: Flovent [...] as directed 03/20 completed Medicati on ID: 248384 D uration Value: 7 Brand Name: DermOtic [...] mcg capsule 11/12 completed Medicati on ID: [id number] Re ason: () Brand Name: Tirosint Send [...] Updated DateTime 03/20/2024 160.02 cm 30.8 kg/m2 09118.07 g Natacha Childs [place] - [facility] 03/20/2024 13:01:51 Social History None recorded. Functional Status None recorded. Mental Status None recorded. Family History Nothing Reported. Medical History No medical history recorded. Gynecological HistoryNo gynecological history recorded. Obstetrics History GPAL:G 0 P 0 0 0 0 Past Encounters Encounter ID Performer Location Encounter Start Date Encounter Closed Date Diagnosis/Indication Diagnosis SNOMED-CT Code Diagnosis ICD10 Code Diagnosis Note [id number] JOSUE SHEPHERD MD [facility] [address] [phone] 03/20/2024 12:52:27 03/20/2024 13:16:19 Impacted cerumen of bilateral ears [id number] H61.23 She has very narrow canals and [...] Schrader Member ID Guarantor Name 03/20/2024 1 [facility] - DOS ON OR AFTER 2022 - CARE HOME OPTIONS AND ONE CARE (MEDICARE REPLACEMENT/ADV ANTAGE - PPO) Mag Ayala [id number] Mag Ayala Notes Date Note Type Note Provider Name and Address Organization Details Recorded Time 03/20/2024 text/html Dizziness now and then, having some ear itching. JOSUE SHEPHERD MD [address] [place] [address], [id number], [facility] - [facility] 03/20/2024 17:18:34 OBGyn Episode No OBEpisode recorded.
--- OUTSIDE RECORDS SUMMARY | 2024-05-31 18:15 | XMS_ITS | Encounter Summary ---
Author Organization [employer] Address [address] [facility] [address] [place] [address] Care Team Providers Care Dry House Wheeler Name Role Phone Name, Gregg DIAMOND Primary Care Provider [phone] Reason for Visit * Reason Onset Date Comments Appointment Request 04/18/2024 Encounter Details Date Type Department Care Team ([facility] st Contact Info) Description 04/18/2024 Telephone [facility] [address] [place] [address] Name, MD Gregg [address] [place] [address] Appointment Request Social History Tobacco Use Types [...] PCP. Pt states will be out of [place] from June 18- as she has an appointment with the oncologist on the and with the neurosurgeon on June 27. documented in this encounter Plan of Treatment Upcoming Encounters Date Type Department Care Team (Late st Contact Info) Description 07/06/2024 9:00 AM EDT Office Visit [facility] [address] [place] [address] Ayan Calvin, RAMIREZ [address] [place] [address] 07/17/2024 11:30 AM EDT Office Visit [facility] [address] [place] [address] Name, MD Gregg [address] [place] [address] 09/21/2024 8:00 AM EDT Office Visit [facility] [address] [place] [address] Faye Mi documented as of this encounter Visit Diagnoses Not on filedocumented in this encounter Additional Health Concerns Assessment Noted Time PHQ-9 Depression Total Score: 0 09/01/19 24 10:42 AM EDT documented as of this encounter Care Teams Dry House Wheeler Relationship Specialty Start Date End Date Name, MD Gregg [address] [place] [address] PCP - General Family Medicine 04/16/15 documented as of this encounter
--- OUTSIDE RECORDS SUMMARY | 2024-05-31 18:15 | XMS_ITS | Encounter Summary ---
Author Organization [employer] Address [address] [facility] [address] [place] [address] Care Team Providers Care Loom Fixer Apprentice Name Role Phone Name, Gregg DIAMOND Primary Care Provider [phone] Encounter Details Date Type Department Care Team (Late st Contact Info) Description 07/20/2022 Abstract [facility] [address] [place] [phone] Name, MD Gregg [address] [place] [phone] Social History Tobacco Use Types Packs/Day Years [...] Description 07/06/2024 9:00 AM EDT Office Visit [facility] [address] [place] [phone] Ayan Calvin DMD [address] [place] [address] 07/17/2024 11:30 AM EDT Office Visit [facility] [address] [place] [address] Name, MD Gregg [address] [place] [address] 09/21/2024 8:00 AM EDT Office Visit [facility] [address] [place] [address] Faye Mi documented as of this encounter [...] documented as of this encounter Care Teams Loom Fixer Apprentice Relationship Specialty Start Date End Date Name, MD Gregg [facility] [place] [address] PCP - General Family Medicine 04/16/15 documented as of this encounter
--- OUTSIDE RECORDS SUMMARY | 2024-05-31 18:15 | XMS_ITS | Clinical Summary ---
Author Organization [employer] Address [address] [facility] 7t [place] [address] Care Team Providers Care Warranty Clerk Name Role Phone Name, Gregg DIAMOND Primary Care Provider [phone] Allergies Active Allergy Reactions Criticality Noted Date [...] 2 sprays each nostril bid prn rhinorrhea, uruguayan 15 mL 12/07/19 24 Active doxepin (SINEquan) [...] is already in the process of seeing [facility] Pain management [facility] Plan: Increase fluids, pain [...] range. Recent lab work not available contacted [facility] for results. Will renew medications at the [...] Encounters Date Type Department Care Team Description 05/25/2024 Telephone [facility] MEDICINE [address] [place] [address] Sweta Giraldo [place] Appointment Request 05/24/2024 Telephone [facility] MEDICINE [address] [facility] [place] [address] Gregg Gandhi MD Appointment Request 05/24/2024 Telephone [facility] MEDICINE [address] [place] [address] Gregg Gandhi MD 05/24/2024 Refill [facility] MED[facility]INE [address] [facility] [place] [address] Ban Granados FNP 05/23/2024 Telephone [facility] MEDICINE [address] [facility] [place] [address] Gregg Gandhi MD call back needed 05/23/2024 Telephone [facility] MEDICINE [address] [place] [address] Gregg Gandhi MD Speak to PCP 05/23/2024 Refill [facility] [address] [facility] [address] Gregg Gandhi MD 05/22/2024 Patient Outreach [facility] MEDICINE [address] [place] [address] Gregg Gandhi MD Transition Of Care (Tcm) 05/22/[address] [address] Gregg Gandhi MD verbal order 05/18/[address] [address] Gregg Gandhi MD Nurse Triage 05/15/[address] [address] Gregg Gandhi MD Durable Medical Equipment; Call Back Request 05/12/2024 9:00 AM EDT Office Visit [facility] ADULT DENTAL [address] [place] [address] Ayan Calvin, RAMIREZ 05/09/[address] [address] Natalie Nathan, BRIAN 05/08/2024 11:15 AM EDT Office Visit [address] [address] Gregg Gandhi MD Diverticulitis (Primary Dx); Left hip pain 05/08/[address] [address] Gregg Gandhi MD Class 1 obesity (Primary Dx) 05/08/2024 Travel 05/05/[address] [address] Gregg Gandhi MD Durable Medical Equipment 05/05/2024 Patient Outreach [address] [address] Gregg Gandhi MD Transition Of Care (Tcm) 05/04/[address] [address] Gregg Gandhi MD Nurse Triage 05/03/2024 2:15 PM EDT Telemedicine [address] [address] Gregg Gandhi MD Right knee pain, unspecified chronicity (Primary Dx); Osteoarthritis of right knee, unspecified osteoarthritis type; Obesity (BMI 30-39.9) 05/03/2024 Travel 05/03/2024 Telephone [facility] PEDIATRICS [address] [place] [address] Gregg Gandhi MD Return Call 05/03/2024 Refill [facility] MEDICINE [address] [place] [address] Leatha, Josselin, CYBER WORKFORCE DEVELOPER AND MANAGER Osteoporosis, unspecified osteoporosis type, unspecified pathological fracture presence 05/02/[address] [address] Gregg Gandhi MD ER Follow-up; Nurse Triage 05/01/2024 9:00 AM EDT Office Visit [facility] ADULT DENTAL [address] [place] [address] Ayan Calvin, DMD 05/01/2024 Orders Only [facility] External Provider, [facility] 05/01/[address] [address] Gregg Gandhi MD Prior Authorization (Lidocaine ) 04/19/2024 Travel 04/19/[address] [address] Sweta Giraldo [place] Appointment Request 04/18/[address] [address] Gregg Gandhi MD Appointment Request 04/10/2024 2:00 PM EST Office Visit [facility] WALK-IN [address] [address] Sore throat (Primary Dx); Right ear pain 04/10/2024 10:30 AM EST Office Visit [facility] ADULT DENTAL [address] [place] [address] Ayan Calvin, DMD 04/10/[address] [address] Gregg Gandhi MD 03/29/[address] [address] Gregg Gandhi MD Durable Medical Equipment 03/22/[address] [address] Gregg Gandhi MD Medication Question 03/20/2024 Refill [facility] MEDICINE [address] [place] [address] Gregg Gandhi MD Osteoporosis, unspecified osteoporosis type, unspecified pathological fracture presence 03/14/2024 Refill [facility] MEDICINE [address] [place] [address] Name, MD Gregg Bariatric surgery status 03/10/2024 10:30 AM EST Office Visit [facility] ADULT DENTAL [address] [place] [address] Ayan Calvin, DMD 03/08/2024 9:00 AM EST Office Visit [facility] MEDICINE [address] [place] [address] Name, MD Gregg Obesity (BMI 30-39.9) (Primary Dx); Chronic pain of right knee; Primary osteoarthritis of right knee; Spondylosis of lumbar region without myelopathy or radiculopathy 03/08/2024 Telephone [facility] MEDICINE [address] [place] [address] Name, MD Gregg Durable Medical Equipment from Last 3 Months Immunizations Name Administration [...] [facility] ADULT DENTAL [address] [place], [place] [phone] Ayan Calvin, RAMIREZ [address] [place] [address] 07/17/2024 11:30 AM EDT Office Visit [facility] MEDICINE [address] [place], [place] [phone] Name, MD Gregg [address] [place], [place] [phone] 09/21/2024 8:00 AM EDT Office Visit [facility] ADULT DENTAL [address] [place], [place] [phone] Faye Mi Health Maintenance Due Date Last [...] EDT Narrative 05/04/2024 10:11 PM EDT ? [facility] ?[address] ?[place] [address] ? CT Scan Report ? Signed ? Patient: Ayala,Mag ?MR#: [id number] ?? 4 ? : 1960 ?Acct:[id number] ? Age/Sex: 63 / F ?ADM Date: 03/20/25 ? Loc: HO.ED ? Attending Dr: ? Ordering Physician: Mitch Roberts MD ?? Date of Service: 05/04/24 ?? Procedure(s): CT abdomen pelvis wo IV con ?? Accession Number(s): [id number] ? cc: Name,Gregg DIAMOND; Mitch Roberts MD ? Report Number: ?? [id number]: Total DLP = ??608.00 mGy-cm ? CLINICAL [...] osteoarthritis both ?? hips. Degenerative changes include iuuyfgma-ha-yhxmnt facet arthropathy, ?? particularly in the lower [...] ? DD/ 08 ? TD/TT: 05/04/242208 ? Retarder Operator: ? Procedure Note Starla Larry - 05/04/[address] [address] [address] Scan Report Signed Patient: Riccardo AyalaJenifferAmanda#: [id number] 4 : 9Acct:[id number] Age/Sex: 63 / FADM Date: 05/04/24 Loc: HO.ED Attending Dr: Ordering Physician: Mitch Roberts MD Date of Service: 05/04/24 Procedure(s): CT abdomen pelvis wo IV con Accession Number(s): [id number] cc: Name,Gregg DIAMOND; Mitch Roberts MD Report Number: [id number]: Total DLP = 608.00 mGy-cm CLINICAL HISTORY: [...] moderate osteoarthritis both hips. Degenerative changes include fjeaurne-fb-aulcka facet arthropathy, particularly in the lower lumbar [...] in OV> 05/04/242209 DD/ 08 TD/TT: 05/04/242208 Retarder Operator: [facility] External Provider IMG CT PROCEDURES Final Result * US VENOUS DUPLEX LE RT (05/02/2024 12:41 AM EDT) Anatomical Region Laterality Modality Abdomen Ultrasound 05/02/2024 12:4 1 AM EDT Narrative 05/02/2024 12:44 AM EDT ? [place] [facility] ?[address] ?[place] [address] ? Ultrasound Report ? Signed ? Patient: Ayala,Mag ?MR#: [id number] ?? 4 ? : 1960 ?Acct:[id number] ? Age/Sex: 63 / F ?ADM Date: 05/01/24 ? Loc: HO.ED ? Attending Dr: ? Ordering Physician: Stephen Sexton MD ?? Date of Service: 05/01/24 ?? Procedure(s): US venous duplex LE RT ?? Accession Number(s): [id number] ? cc: Stephen Sexton MD; Name,Gregg DIAMOND [...] DD/ 0041 ? TD/TT: 05/02/24 0041 ? Retarder Operator: ? Procedure Note Laron, Starla - 05/02/2024 [place] [address] Ultrasound Report Signed Patient: Riccardo AyalanMR#: [id number] 4 : 9Acct:[id number] Age/Sex: 63 / FADM Date: 05/01/24 Loc: HO.ED Attending Dr: Ordering Physician: Stephen Sexton MD Date of Service: 05/01/24 Procedure(s): US venous duplex LE RT Accession Number(s): [id number] cc: Stephen Sexton MD; Name,Gregg DIAMOND CLINICAL [...] MD in OV> 05/02/2441 DD/ TD/TT: 05/02/2440 Retarder Operator: [facility] External Provider IMG US PROCEDURES Edited Result - Final * XR Hip left with Pelvis 1 view (05/02/2024 12:09 AM EDT) Anatomical Region Laterality Modality Lower Extremities, Hip Bilateral Radiograp hic Imaging 05/02/2024 12:0 9 AM EDT Narrative 05/02/2024 12:12 AM EDT ? [facility] ?[address] ?[place] [address] ?XRay Report ? Signed ? Patient: Mag Ayala ?MR#: [id number] ?? 4 ? : 1960 ?Acct:[id number] ? Age/Sex: 63 / F ?ADM Date: 05/01/24 ? Loc: HO.ED ? Attending Dr: ? Ordering Physician: Stephen Sexton MD ?? Date of Service: 05/01/24 ?? Procedure(s): XR hip LT w PEL1V ?? Accession Number(s): [id number] ? cc: Stephen Sexton MD; Name,Gregg DIAMOND [...] DD/ 0009 ? TD/TT: 05/02/24 0009 ? Retarder Operator: ? Procedure Note Donotuseinterpreter, Image - 05/02/[address] [address] XRay Report Signed Patient: Eulalia Ayala#: [id number] 4 : 9Acct:[id number] Age/Sex: 63 / FADM Date: 05/01/24 Loc: HO.ED Attending Dr: Ordering Physician: Stephen Sexton MD Date of Service: 05/01/24 Procedure(s): XR hip LT w PEL1V Accession Number(s): [id number] cc: Stephen Sexton MD; Name,Gregg DIAMOND CLINICAL [...] in OV> 05/02/24 0011 DD/ 0009 TD/TT: 05/02/248 Retarder Operator: [facility] External Provider IMG XR PROCEDURES Edited Result [...] EST Narrative 05/05/2023 8:29 AM EDT ? [facility] ? [address] ?[place] [address] ? Mammography Report ? Signed ? Patient: Ayala,Mag ?MR#: [id number] ?? 4 ? : 1960 ?Acct:[id number] ? Age/Sex: 62 / F ?ADM Date: 04/20/23 ? Loc: HO.MAMMO ? Attending Dr: Gregg Gandhi MD ? Ordering Physician: Gregg Gandhi MD ?Results: 1Negative ? Date of Service: 04/20/23 ?Follow Up: 1 Year From Orig ?? inal Mammogram ? Procedure(s): MM tomosynthesis screening BI ?? Accession Number(s): [id number] ? cc: Gregg Gandhi MD ? EXAMINATION: ?? MM SCREENING DIGITAL BREAST [...] ?05/05/23824 ? DD/ 1205 ? TD/TT: ? Retarder Operator: ? Procedure Note Donlokesh, Image - 05/05/2023 [facility] [address] [place] [address] Mammography Report Signed Patient: Riccardo AyalanMR#: [id number] 4 : 9Acct:[id number] Age/Sex: 62 / FADM Date: 04/20/23 Loc: HO.MAMMO Attending Dr: Gregg Gandhi MD Ordering Physician: Gregg Gandhiesults: 1Negative Date of Service: 04/20/23Follow Up: 1 Year From Orig inal Mammogram Procedure(s): MM tomosynthesis screening BI Accession Number(s): [id number] cc: Gregg Gandhi MD EXAMINATION: MM SCREENING [...] in OV> 05/05/23 0825 DD/ 1205 TD/TT: Retarder Operator: Gregg Name IMG BI PROCEDURES Final [...] ?? Darek MADISON et al. BOO. 2013;310(19): 8903-1624 ?? (http://education.Artimi.Eyebrid Blaze/faq/XQK689) Non-HDL Cholesterol 125 <130 mg/dL (calc) [facility] Comment: For patients with diabetes plus 1 major ASCVD risk ?? factor, treating to a non-HDL-C goal of <100 mg/dL ?? (LDL-C of <70 mg/dL) is considered a therapeutic ?? option. Triglycerides 80 <150 mg/dL [facility] 05/20/2020 9:32 AM EDT us Gregg Gandhi MD LAB BLOOD ORDERABLES Final Resul t [facility] [address] [place] [address], from Last 3 Months or Most Recently Relevant to Health Maintenance Insurance [facility] Member Subscriber Plan / Payer (Ef fective 2023-Present) Name:Mag Ayala Relation to Subscriber:Self Name:Mag Ayala Payer ID:Not on file Group ID:[id number] Type:Not on file Address: [address] [facility] Care Teams Warranty Clerk Relationship Specialty Start Date End Date Name, MD Gregg [address] [place] [address] PCP - General Family Medicine 04/16/15
--- OUTSIDE RECORDS SUMMARY | 2024-05-31 18:15 | XMS_ITS | Encounter Summary ---
Author Organization [employer] Address [address] [facility] [address] 7[address] [place] [address] Care Team Providers Care Media Consultant Name Role Phone Name, Gregg DIAMOND Primary Care Provider [phone] Reason for Visit * Reason Comments Med Refill Encounter Details Date Type Department Care Team ([facility] st Contact Info) Description 11/16/2023 Refill [facility] [address] [place], [place] [phone] Yennifer Ramirez MD [address] [place] [address] Flu-like symptoms Social History Tobacco Use Types [...] Description 07/06/2024 9:00 AM EDT Office Visit [facility] ADULT DENTAL [address] [place] [address] Ayan Calvin DMD [address] [place] [address] 07/17/2024 11:30 AM EDT Office Visit [facility] MEDICINE [address] [place] [address] Name, MD Gregg [address] [place] [address] 09/21/2024 8:00 AM EDT Office Visit [facility] ADULT DENTAL [address] [place] [address] Faye Mi documented as of this encounter Visit Diagnoses Diagnosis Flu-like symptoms documented in this encounter Additional Health Concerns Assessment Noted Time PHQ-9 Depression Total Score: 0 09/01/19 24 10:42 AM EDT documented as of this encounter Care Teams Media Consultant Relationship Specialty Start Date End Date Name, MD Gregg [address] [place] [address] PCP - General Family Medicine 04/16/15 documented as of this encounter
--- OUTSIDE RECORDS SUMMARY | 2024-05-31 18:15 | XMS_ITS | Encounter Summary ---
Author Organization [email or web address] [facility] Address [address] [facility] 7t [place] [address] Care Team Providers Care Him Assistant Name Role Phone Name, Gregg DIAMOND Primary Care Provider [phone] Reason for Visit * Reason Comments Med Refill Encounter Details Date Type Department Care Team ( Contact Info) Description 10/14/2022 Refill [facility] MEDICINE [address] [place], [place] [phone] Name, MD Gregg [address] [place] [address] Osteoporosis, unspecified osteoporosis type, unspecified pathological fracture [...] Care Team ( st Contact Info) Description 07/06/2024 9:00 AM EDT Office Visit [facility] ADULT DENTAL [address] [place], [place] [phone] Ayan Calvin, RAMIREZ [address] [place], [place] [phone] 07/17/2024 11:30 AM EDT Office Visit [facility] MEDICINE [address] [place] [address] Name, MD Gregg [address] [place] [address] 09/21/2024 8:00 AM EDT Office Visit [facility] ADULT DENTAL [address] [place] [address] Faye Mi documented as of this encounter Visit Diagnoses Diagnosis Osteoporosis, unspecified osteoporosis type, unspecified pathological fracture presence documented in this encounter Additional Health Concerns Assessment Noted Time PHQ-9 Depression Total Score: 7 03/04/19 23 9:17 AM EST documented as of this encounter Care Teams Him Assistant Relationship Specialty Start Date End Date Name, MD Gregg [address] [place] [address] PCP - General Family Medicine 04/16/15 documented as of this encounter
--- OUTSIDE RECORDS SUMMARY | 2024-05-31 18:15 | XMS_ITS | Encounter Summary ---
Author Organization [facility] Address [address] [facility] 7t [place] [address] Care Team Providers Care Warehouse Worker 2Nd Shift Name Role Phone Name, Gregg DIAMOND Primary Care Provider [phone] Encounter Details Date Type Department Care Team (Late st Contact Info) Description 01/14/2022 Abstract [facility] ADULT DENTAL [address] [place] [address] Dental, Provider, DDS Social History Tobacco Use [...] Description 07/06/2024 9:00 AM EDT Office Visit [facility] ADULT DENTAL [address] [place] [address] Ayan Calvin DMD [address] [place] [address] 07/17/2024 11:30 AM EDT Office Visit [facility] MEDICINE [address] [place] [address] Gregg Gandhi MD [address] [place] [address] 09/21/2024 8:00 AM EDT Office Visit [facility] ADULT DENTAL [address] [place] [address] Mi, Faye documented as of this encounter [...] on filedocumented in this encounter Care Teams Warehouse Worker 2Nd Shift Relationship Specialty Start Date End Date Name, MD Gregg [address] [place] [phone] PCP - General Family Medicine 04/16/15 documented as of this encounter
--- OUTSIDE RECORDS SUMMARY | 2024-05-31 18:15 | XMS_ITS | Encounter Summary ---
Author Organization [employer] Address [address] [facility] 7t [place] [address] Care Team Providers Care Clinical Manager Name Role Phone Name, Gregg DIAMOND Primary Care Provider [phone] Reason for Visit * Reason Onset Date Comments Nurse Triage 05/04/2024 Encounter Details Date Type Department Care Team ([facility] st Contact Info) Description 05/04/2024 Telephone [facility] MEDICINE [address] [place] [address] Name, MD Gregg [address] [place] [address] Nurse Triage Social History Tobacco Use Types [...] information. Do see mention of hemorrhoids. No commercial banker needed as this service writer advisor speaks Faroese. Call returned to Mag Ayala to triage [...] to perform UA. Pt requesting referral to [facility] per recommendation from Risk Control Product Liability Director. Pt advised will forward note to Provider [...] acuity questions The caller accepted this outcome. [phone] (zimbabwean) pt states knows Latvian but there are some words she can't say or understand. Tc from pt stating visited the green building design specialist today, and he told pt should ask her PCP for a referral for a prosthetic because pt has several purple veins in the anus. Pt states this hasn't happenedto her before. documented in this encounter Plan of Treatment Upcoming Encounters Date Type Department Care Team (Late st Contact Info) Description 07/06/2024 9:00 AM EDT Office Visit [facility] ADULT DENTAL [address] [place] [address] Ayan Calvin, RAMIREZ [address] [place] [address] 07/17/2024 11:30 AM EDT Office Visit [facility] MEDICINE [address] [place] [address] Name, MD Gregg [address] [place] [address] 09/21/2024 8:00 AM EDT Office Visit [facility] ADULT DENTAL [address] [place] [address] Faye Mi documented as of this encounter Visit Diagnoses Not on filedocumented in this encounter Additional Health Concerns Assessment Noted Time PHQ-9 Depression Total Score: 0 09/01/19 24 10:42 AM EDT documented as of this encounter Care Teams Clinical Manager Relationship Specialty Start Date End Date Name, MD Gregg [address] [place] [address] PCP - General Family Medicine 04/16/15 documented as of this encounter
--- OUTSIDE RECORDS SUMMARY | 2024-05-31 18:15 | XMS_ITS | Data Portability ---
Author Organization [employer] Address [address] [place] [address] Care Team Providers Care Hot Tamale Worker Name Role Phone HIM CCA OTHER NAME, [...] Assessment and Plan as documented by the Epidemiology Internship. I provided real-time medical direction via phone [...] supportive care and avoidance of constipation/str aining. Epidemiology Internship checked COVID flu and strep tests which [...] Assessment and Plan as documented by the Epidemiology Internship. We discussed the diagnostic uncertainty of home [...] call 911- she verbalized understanding of instructions [email or web address] Not available 05/19/2024 13:50:42 Plan of Treatment Reminders Order Date Submit Date Provider Last Modified By Organization Details Last Modified Time Details Appointments None recorded. Lab rapid SARS CoV 2 Ag, QL [place], respiratory specimen [address], [address] [place] [address] 5 20:05:02 rapid flu (A+B) [address], [id number] 5 20:05:02 rapid strep group A, throat [address], [id number] 5 20:05:03 rapid SARS CoV 2 Ag, QL [place], respiratory specimen [address], [id number] 4 08:33:11 rapid flu (A+B) [address], [id number] 4 08:33:54 Referral None recorded. Procedures None recorded. Surgeries None recorded. Imaging None recorded. Medication Orders acetaminoph en 325 mg tablet 2023 024 [facility], [address] [place] [address], [id number], 11:54:22 acetaminoph en 500 mg tablet 2023 024 [email or web address] [facility], [address] [place] [address], [id number], 19:28:30 Patient TargetsNo targets recorded. Patient InstructionsNo [...] Name and Address Organization Details Recorded Time 98606 Nubain medicatio n Not available Not available Not available 05/19/2024 7550 RxNorm Christina Ashford MD [address] [place] [address],[address], [place], [address], [facility] 13:03:23 32549 ketorolac medicatio n vomiting Not available Not available 05/19/2024 14425 RxNorm Christina Ashford MD [address] [place] [address],[address], [place], [address], [facility]CI 13:03:50 Medications Name Sig Start Date Stop [...] Address Organization Details Last Updated DateTime 5 97374.6 g 100 % 100 % 75 /min 157.48 cm 14 /min 98 [degF] 131 mm[Hg] 75 mm[Hg] Not Available [employer] 5 19:36:31 Date Recorded Oxygen saturation Oxygen saturation in Arterial blood by Pulse oximetry Heart rate Body temperature Respiratory rate Body height Body weight Systolic blood pressure Diastolic blood pressure Provider Name and Address Organization Details Last Updated DateTime 5 100 % 100 % 91 /min 98.6 [degF] 19 /min 160.02 cm 92501.0 08 g 110 mm[Hg] 71 mm[Hg] Not Available [employer] - [employer] 5 21:41:12 Date Recorded Respiratory rate Body temperature Oxygen saturation Oxygen saturation in Arterial blood by Pulse oximetry Heart rate Systolic blood pressure Diastolic blood pressure Provider Name and Address Organization Details Last Updated DateTime 5 20 /min 97.9 [degF] 97 % 97 % 100 /min 138 mm[Hg] 76 mm[Hg] Not Available [facility] - [employer] 5 15:18:17 Date Recorded Body temperature Heart rate Body weight Body height Oxygen saturation Oxygen saturation in Arterial blood by Pulse oximetry Respiratory rate Systolic blood pressure Diastolic blood pressure Provider Name and Address Organization Details Last Updated DateTime 5 97.6 [degF] 96 /min 80661.1 92 g 160.02 cm 97 % 97 % 19 /min 106 mm[Hg] 72 mm[Hg] Not Available [employer] - [employer] 5 12:56:43 Social History None recorded. Functional Status None recorded. Mental Status None recorded. Family History Nothing Reported. Medical History No medical history recorded. Gynecological HistoryNo gynecological history recorded. Obstetrics History GPAL:G 0 P 0 0 0 0 Past Encounters Encounter ID Performer Location Encounter Start Date Encounter Closed Date Diagnosis/Indication Diagnosis SNOMED-CT Code Diagnosis ICD10 Code Diagnosis Note [id number] Abran Hayward MD Main - [facility] [address] [place] [id number] 01/31/2024 14:50:58 01/31/2024 16:04:33 [id number] Jameel Haddad MD Main - [facility] [address] [place] [id number] 02/03/2024 19:16:36 02/03/2024 22:59:01 Viral upper respiratory tract infection 509458598 J06.9 S/p treatment for bronchitis with Azithromyc in. Negative COVID/flu test. Able to maintain PO hydration. Discussed red flag signs for which to seek higher level of care. [id number] Rick Hartmann MD Main - [facility] [address] [place] [id number] 02/24/2024 19:36:29 02/24/2024 20:10:20 Diarrhea 02885840 R19.7 As noted, we were called to see this patient regarding concerns of gastroente ritis symptoms. Evaluation in the field was performed by my placement secretary colleague, as noted above, I provided real-time [...] significan t hematochez ia, non-resolv ing diarrhea. [id number] Loki Barajas MD Main - [facility] [address] [place] [id number] 03/30/2024 21:41:10 03/31/2024 15:17:43 Localized eruption of skin [id number] R21 [id number] Cody Spicer MD Main - [facility] [address] [place] [id number] 05/04/2024 15:18:09 05/04/2024 20:57:19 Abdominal pain 61827342 R10.9 [id number] Christina Ashford MD Main - [facility] [address] [place] [address] 05/19/2024 12:56:41 05/19/2024 14:17:51 Osteoarthritis of multiple joints 830039242 M15.9 advised ice / wrapped in a [...] makes her feel Chronic pain syndrome 37 2465386 G89.4 Explained to patient we cannot offer [...] Schrader Member ID Guarantor Name 02/03/2024 1 [facility] - DOS ON OR AFTER 2022 - DUAL ELIGIBLE - LONG-TERM OPTIONS AND ONE CARE (MEDICARE REPLACEMENT/ADV ANTAGE - HMO) Mag Ayala [id number] Mag Valdeza 02/24/2024 1 [facility] - DOS ON OR AFTER 2022 - DUAL ELIGIBLE - LONG-TERM OPTIONS AND ONE CARE (MEDICARE REPLACEMENT/ADV ANTAGE - HMO) Mag Ayala [id number] Mag Valdeza 03/30/2024 1 [facility] - DOS ON OR AFTER 2022 - DUAL ELIGIBLE - LONG-TERM OPTIONS AND ONE CARE (MEDICARE REPLACEMENT/ADV ANTAGE - HMO) Mag Ayala [id number] Mag Ayala 05/04/2024 1 [facility] - DOS ON OR AFTER 2022 - DUAL ELIGIBLE - LONG-TERM OPTIONS AND ONE CARE (MEDICARE REPLACEMENT/ADV ANTAGE - HMO) Mag Ayala [id number] Mag Ayala 05/19/2024 1 [facility] - DOS ON OR AFTER 2022 - DUAL ELIGIBLE - LONG-TERM OPTIONS AND ONE CARE (MEDICARE REPLACEMENT/ADV ANTAGE - HMO) Mag Ayala [id number] Mag Ayala Notes Date Note Type Note [...] (GERD), Sleep Apnea Comments: HPI reviewed- [place] Epidemiology Internship Organization Information for Gurpreet Wilson Business Legal Name: [employer]? Address: [address] [place] [address], Healthcare Management Consultant: Rich ENCARNACION No.: [id number] Epidemiology Internship POC Test Results from Gurpreet Wilson Rapid COVID antigen (19:18:27) COVID: - Rapid influenza antigen (19:18:29) Flu: - ...................... ...................... ...................... ...................... ...................... ...................... ......... Epidemiology Internship Note From Gurpreet Wilson: Dispatched to the [...] ...................... ...................... ...................... ...................... ...................... ...................... ......... [facility] Consulted: Surya Haddad ...................... ...................... ...................... ...................... ...................... ...................... ......... Disposition: Fulfilled Jameel Haddad MD [address] [place] [address],[address] [facility], [place], [address], [facility] - [employer] 02/03/2024 20:53:56 02/24/2024 text/html HPI: Franko is [...] Mbr agreed with plan. Confirmed address and phone/[phone]. ...................... ...................... ...................... ...................... ...................... ...................... ......... CRC Nurse Triage Notes (Farrah Richards - RN): Chief Complaints: Dehydration, Diarrhea, Fatigue, Headache, Nausea, Weakness PMH: Anxiety Disorder, Asthma, Chronic Pain, Depression, Osteoporosis, Hypothyroidism, Gastroesophageal Reflux Disease (GERD), Sleep Apnea PMH Reviewed at 02/24/2024 14:38 Allergies Reviewed at 02/24/2024 - 14:38 Comments: Reviewed referral and no further info needed. Oracio TORRES Epidemiology Internship Organization Information for Dionicio Hawkins Business Legal Name: [facility] Address: [address] [place] [address], [place] [address], Healthcare Management Consultant: Chase Parker MD CLIA No.: [id number] Epidemiology Internship POC Test Results from Dionicio Hawkins Rapid COVID antigen (15:44:40) COVID: - Rapid influenza antigen (15:44:41) Flu: - ...................... ...................... ...................... ...................... ...................... ...................... ......... Epidemiology Internship Note From Ross Dionicio: Patient alert and [...] for Covid and flu via rapid POC. [facility] advises possible GI virus, continue hydration, follow BRAT diet, use Tylenol for headache as directed. Red flags, patient education discussed. ...................... ...................... ...................... ...................... ...................... ...................... ......... [facility] Consulted: Randall Hartmann ...................... ...................... ...................... ...................... ...................... ...................... ......... Disposition: Fulfilled Rick Hartmann MD [address] [facility],[address], [place], [address], LYLY NILAY SARANYA 02/24/2024 19:48:21 03/30/2024 text/html [...] Will place referral for workup Oracio TORRES Epidemiology Internship Organization Information for DevaughnKody Silvestre GLADIS Business Legal Name: [employer]? Address: [address] [place] [address], Healthcare Management Consultant: Rich Pillai MD [facility] No.: [id number] Epidemiology Internship POC Test Results from Koyd Cantor Rapid influenza antigen (21:36:11) Flu: - Rapid COVID antigen (21:36:12) COVID: - ...................... ...................... ...................... ...................... ...................... ...................... ......... Epidemiology Internship Note From Kody Cantor: Dispatched to above [...] Covid/influenza. No edema in the lower extremity [facility] contacted. [facility] ordered the pt to monitor her temp/cough/flu like symptoms, and if symptoms get worse then to either call back/call pcp/call 911. [facility] added to keep taking Tylenol as needed. Pt stated that she understood and stated that she was feeling a little better after taking Tylenol. Crew cleared from call. All times approximate. ...................... ...................... ...................... ...................... ...................... ...................... ......... [facility] Consulted: Loki Barajas ...................... ...................... ...................... ...................... ...................... ...................... ......... Disposition: Fulfilled Loki Barajas MD [address] [place] [address],[address], [place], [address], [employer] 03/31/2024 00:03:57 05/04/2024 text/html CRC Nurse Triage [...] to get an urgent appt with a process artist. Patient was in the bath last night, [...] get support and advice from medic and [facility]. Epidemiology Internship Organization Information for Beto Nowak Legal Name: [employer].? Address: [address] [place] [address], Healthcare Management Consultant: Rich Pillai MD CLIA No.: [id number] Epidemiology Internship POC Test Results from Slowinski, Beto - [...] ...................... ...................... ...................... ...................... ...................... ...................... ......... Epidemiology Internship Note From Beto Nowak: Dispatched to above [...] spoke with her PCP who recommended seeing underwriting internship prior to using preparation H, also reporting [...] strep test checked, all negative, results uploaded. [facility] contacted, spoke with Dr. Spicer, advised of patient complaints, exam findings and test results. [facility] SC8 and patient had a lengthy discussion, patient states she would feel uncomfortable staying at home, requested and ambulance to the ER for further evaluation. 911 contacted, [facility] ambulance responded, verbal report given to [place] EMT, took over patient care, will transport to [facility]. SC8 clear. EOR. ...................... ...................... ...................... ...................... ...................... ...................... ......... [facility] Consulted: Cody Spicer ...................... ...................... ...................... ...................... ...................... ...................... ......... Disposition: Fulfilled Cody Spicer MD [address] [place] [address],[address], [place], [address] [employer] 05/04/2024 17:00:46 05/19/2024 text/html CRC Nurse Triage [...] ...................... ...................... ...................... ...................... ...................... ...................... ......... Epidemiology Internship Note From Jose Small: Pt chief complaint [...] and will not use her prescribed oxycodone. [facility] Christina Ashford consulted. Pt informed of findings. Pt informed she may need to make an appointment with her pcp and or a neurologist for an increase In Her gabapentin dose. Pt told of home remedies she may try. Pt also informed of red flag S&S and told to call emergency services if any present. ...................... ...................... ...................... ...................... ...................... ...................... ......... [facility] Consulted: Christina Ashford ...................... ...................... ...................... ...................... ...................... ...................... ......... Disposition: Fulfilled Christina Ashford MD [address] [facility],[address], [place], [address], [employer] 05/19/2024 13:51:23 OBGyn Episode No OBEpisode recorded.
--- OUTSIDE RECORDS SUMMARY | 2024-05-31 18:15 | XMS_ITS | Encounter Summary ---
Author Organization [facility] Address [address] [facility] 7t [place] [address] Care Team Providers Care Technical Cable Jointer Name Role Phone Name, Gregg DIAMOND Primary Care Provider [phone] Encounter Details Date Type Department Care Team (Latest Contact Info) Description 12/25/2019 Abstract [facility] CONVERSIONS Dental, Provider, DDS Social History [...] Description 07/06/2024 9:00 AM EDT Office Visit [facility] ADULT DENTAL [address] [place] [address] Ayan Calvin DMD [address] [place] [address] 07/17/2024 11:30 AM EDT Office Visit [facility] MEDICINE [address] [place] [address] Name, MD Gregg [address] [place] [address] 09/21/2024 8:00 AM EDT Office Visit [facility] ADULT DENTAL [address] [place] [address] Faye Mi documented as of this encounter Visit Diagnoses Not on filedocumented in this encounter Care Teams Technical Cable Jointer Relationship Specialty Start Date End Date Name, MD Gregg [address] [place] [address] PCP - General Family Medicine 04/16/15 documented as of this encounter
--- OUTSIDE RECORDS SUMMARY | 2024-05-31 18:15 | XMS_ITS | Encounter Summary ---
Author Organization [employer] Address [address] [place] [address] Care Team Providers Care Gas Fitter Helper Name Role Phone Name, Gregg DIAMOND Primary Care Provider [phone] Reason for Visit * Reason Onset Date Comments broken tooth to hold partial 02/28/2024 Encounter Details Date Type Department Care Team (Late st Contact Info) Description 02/28/2024 Telephone [facility] ADULT DENTAL [address] [place] [address] Ayan Calvin, DMD [address] [place] [address] broken tooth to hold partial Social History [...] Description 07/06/2024 9:00 AM EDT Office Visit [facility] ADULT DENTAL [address] [place] [address] Ayan Calvin, RAMIREZ [address] [place] [address] 07/17/2024 11:30 AM EDT Office Visit [facility] MEDICINE [address] [place] [address] Name, MD Gregg [address] [place] [address] 09/21/2024 8:00 AM EDT Office Visit [facility] ADULT DENTAL [address] [place] [address] Faye Mi documented as of this encounter Visit Diagnoses Not on filedocumented in this encounter Additional Health Concerns Assessment Noted Time PHQ-9 Depression Total Score: 0 09/01/19 24 10:42 AM EDT documented as of this encounter Care Teams Gas Fitter Helper Relationship Specialty Start Date End Date Name, MD Gregg [address] [place] [address] PCP - General Family Medicine 04/16/15 documented as of this encounter
--- OUTSIDE RECORDS SUMMARY | 2024-05-31 18:15 | XMS_ITS | Encounter Summary ---
Author Organization [employer] Address [address] [place] [address] Care Team Providers Care Reconciliation Coordinator Name Role Phone Name, Gregg DIAMOND Primary Care Provider [phone] Reason for Visit * Reason Onset Date Comments Nurse Triage 11/27/2022 Encounter Details Date Type Department Care Team ([facility] st Contact Info) Description 11/27/2022 Telephone [facility] MEDICINE [address] [place] [address] Name, MD Gregg [address] [place] [address] Nurse Triage Social History Tobacco Use Types [...] caller accepted this outcome Does not need logger all round . documented in this encounter Plan of Treatment Upcoming Encounters Date Type Department Care Team (Late st Contact Info) Description 07/06/2024 9:00 AM EDT Office Visit [facility] ADULT DENTAL [address] [place] [address] Ayan Calvin DMD [address] [place] [address] 07/17/2024 11:30 AM EDT Office Visit [facility] MEDICINE [address] [place] [address] Name, MD Gregg [address] [place] [address] 09/21/2024 8:00 AM EDT Office Visit [facility] ADULT DENTAL [address] [place] [address] Faye Mi documented as of this encounter Visit Diagnoses Not on filedocumented in this encounter Additional Health Concerns Assessment Noted Time PHQ-9 Depression Total Score: 7 03/04/19 23 9:17 AM EST documented as of this encounter Care Teams Reconciliation Coordinator Relationship Specialty Start Date End Date Name, MD Gregg [address] [place] [address] PCP - General Family Medicine 04/16/15 documented as of this encounter
--- OUTSIDE RECORDS SUMMARY | 2024-05-31 18:15 | XMS_ITS | Encounter Summary ---
Author Organization [employer] Address [address] [facility] 7[address] [place] [address] Care Team Providers Care Crayon Molding Machine Operator Name Role Phone Name, Gregg DIAMOND Primary Care Provider [phone] Reason for Visit * Reason Onset Date Comments Appointment Request 05/24/2024 Encounter Details Date Type Department Care Team ([facility] st Contact Info) Description 05/24/2024 Telephone [facility] MEDICINE [address] [place] [address] Name, MD Gregg [address] [place] [address] Appointment Request Social History Tobacco Use Types [...] the phone she will. Contact pt at [phone] documented in this encounter Plan of Treatment Upcoming Encounters Date Type Department Care Team (Late st Contact Info) Description 07/06/2024 9:00 AM EDT Office Visit [facility] ADULT DENTAL [address] [place] [address] Ayan Calvin DMD [address] [place] [address] 07/17/2024 11:30 AM EDT Office Visit [facility] MED[facility] [address] [place] [address] Name, MD Gregg [address] [place] [address] 09/21/2024 8:00 AM EDT Office Visit [facility] ADULT DENTAL [address] [place] [address] Faye Mi documented as of this encounter Visit Diagnoses Not on filedocumented in this encounter Additional Health Concerns Assessment Noted Time PHQ-9 Depression Total Score: 0 09/01/19 24 10:42 AM EDT documented as of this encounter Care Teams Crayon Molding Machine Operator Relationship Specialty Start Date End Date Name, MD Gregg [address] [place] [address] PCP - General Family Medicine 04/16/15 documented as of this encounter
--- OUTSIDE RECORDS SUMMARY | 2024-05-31 18:15 | XMS_ITS | Encounter Summary ---
Author Organization [employer] Address [address] [place] [address] Care Team Providers Care Cell Biology Scientist Name Role Phone Name, Gregg DIAMOND Primary Care Provider [phone] Encounter Details Date Type Department Care Team ([facility] st Contact Info) Description 10/21/2023 Telephone [facility] ADULT DENTAL [address] [place] [address] Ayan Calvin, DMD [address] [place] [address] Social History Tobacco Use Types Packs/Day Years [...] Description 07/06/2024 9:00 AM EDT Office Visit [facility] ADULT DENTAL [address] [place] [address] Ayan Calvin, RAMIREZ [address] [place] [address] 07/17/2024 11:30 AM EDT Office Visit [facility] MEDICINE [address] [place] [address] Name, MD Gregg [address] [place] [address] 09/21/2024 8:00 AM EDT Office Visit [facility] ADULT DENTAL [address] [place] [address] Faye Mi documented as of this encounter Visit Diagnoses Not on filedocumented in this encounter Additional Health Concerns Assessment Noted Time PHQ-9 Depression Total Score: 0 09/01/19 24 10:42 AM EDT documented as of this encounter Care Teams Cell Biology Scientist Relationship Specialty Start Date End Date Name, MD Gregg [address] [place] [address] PCP - General Family Medicine 04/16/15 documented as of this encounter
--- OUTSIDE RECORDS SUMMARY | 2024-05-31 18:15 | XMS_ITS | Encounter Summary ---
Author Organization [employer] Address [address] [facility] [address] [place] [address] Care Team Providers Care Scanning Coordinator Name Role Phone Name, Gregg DIAMOND Primary Care Provider [phone] Reason for Visit * Reason Comments Med Refill Encounter Details Date Type Department Care Team ([facility] st Contact Info) Description 07/13/2023 Refill [facility] [address] [place] [address] Ban Granados FNP [address] [place] [address] Social History Tobacco Use Types Packs/Day Years [...] t he electric, gas, oil or water [employer] threatened to shut off services in your [...] 3:57 PM EDT Pt came into the [facility] asking for refills on Wegomy meds. She wants Dr. Granados to send the refill in two days to be able to picking tech in pharmacy. 07/13/23 documented in this encounter Plan of Treatment Upcoming Encounters Date Type Department Care Team (Late st Contact Info) Description 07/06/2024 9:00 AM EDT Office Visit [facility] [address] [place] [address] Ayan Calvin, RAMIREZ [address] [place] [address] 07/17/2024 11:30 AM EDT Office Visit [facility] [address] [place] [address] Name, MD Gregg [address] [place] [address] 09/21/2024 8:00 AM EDT Office Visit [facility] [address] [place] [address] Faye Mi documented as of this encounter Visit Diagnoses Not on filedocumented in this encounter Additional Health Concerns Assessment Noted Time PHQ-9 Depression Total Score: 7 03/04/19 23 9:17 AM EST documented as of this encounter Care Teams Scanning Coordinator Relationship Specialty Start Date End Date Gregg Gandhi MD [address] [place] [address] PCP - General Family Medicine 04/16/15 documented as of this encounter
--- OUTSIDE RECORDS SUMMARY | 2024-05-31 18:15 | XMS_ITS | Encounter Summary ---
Author Organization [employer] Address [address] [facility] 7t [place] [address] Care Team Providers Care Orthotic Fitter Name Role Phone Name, Gregg DIAMOND Primary Care Provider [phone] Reason for Visit * Reason Comments Med Refill Encounter Details Date Type Department Care Team (Late Contact Info) Description 03/04/2022 Refill [facility] [address] [place] [address] Name, MD Gregg [address] [place] [address] Osteoporosis, unspecified osteoporosis type, unspecified pathological fracture [...] Department Care Team (Late Contact Info) Description 07/06/2024 9:00 AM EDT Office Visit [facility] [address] [place] [address] Ayan Calvin, RAMIREZ [address] [place] [address] 07/17/2024 11:30 AM EDT Office Visit [facility] [address] [place] [address] Name, MD Gregg [address] [place] [address] 09/21/2024 8:00 AM EDT Office Visit [facility] [address] [place] [address] Faye Mi documented as of this encounter Visit Diagnoses Diagnosis Osteoporosis, unspecified osteoporosis type, unspecified pathological fracture presence documented in this encounter Additional Health Concerns Assessment Noted Time PHQ-9 Depression Total Score: 7 03/04/19 23 9:17 AM EST documented as of this encounter Care Teams Orthotic Fitter Relationship Specialty Start Date End Date Name, MD Gregg [address] [place] [address] PCP - General Family Medicine 04/16/15 documented as of this encounter
--- OUTSIDE RECORDS SUMMARY | 2024-05-31 18:15 | XMS_ITS | Encounter Summary ---
Author Organization [employer] Address [address] [facility] 7t [place] [address] Care Team Providers Care Wood Carver Hand Name Role Phone Name, Gregg DIAMOND Primary Care Provider [phone] Reason for Visit * Reason Onset Date Comments ER Follow-up 05/02/2024 Nurse Triage 05/02/2024 Encounter Details Date Type Department Care Team ([facility] st Contact Info) Description 05/02/2024 Telephone [facility] [address] [place] [address] Name, MD Gregg [address] [place] [address] ER Follow-up; Nurse Triage Social History Tobacco [...] of the rollator walker. TC placed to [facility] pharamcyregarding the fosamax. Lori states the [...] in June as she will leaving for [place] at the beginning of June Pt requesting a call from PCP. Development Executive found telehealth visit in PCP schedule. Pt [...] find out more information. TC placed to [facility] pharamcy regardingthe fosamax. Lori states the [...] She states that she went to the [facility] ED yesterday due to right leg pain and right knee isswollen. Pt. Was also having throbbing pain in left side of groin. [facility] ED did not find any blood clot in leg and Xray of left hip and pelvis-negative. ED is recommending referral to Contact Lens Assistant according to pt. Pt does not want [...] that she remembers. Pt. Needs referral to Contact Lens Assistant. Offered pt. Appt. Today but, pt. Only wants to speak to pcp and is requesting appt. With PCP only or call from PCP to discuss updates and needs. Please get back to pt. To let her know if any of these needs can be met Will send request to Clinical coordinators to get [facility] ED report from yesterday into pt. Chart. Multiple needs. * Telephone Encounter - Shubham Booth - 05/02/2024 10:20 AM EDT Patient calling to report ED visit on : Date: 05/01/2024 Hospital: [facility] Seen for: Knee [...] EDT Office Visit [facility] ADULT D[facility] [address] [place] [address] Ayan Calvin DMD [address] [place] [address] 07/17/2024 11:30 AM EDT Office Visit [facility] [address] [place] [address] Name, MD Gregg [address] [place] [address] 09/21/2024 8:00 AM EDT Office Visit [facility] ADULT D[facility] [address] [place] [address] Faye Mi documented as of this encounter Visit Diagnoses Not on filedocumented in this encounter Additional Health Concerns Assessment Noted Time PHQ-9 Depression Total Score: 0 09/01/19 24 10:42 AM EDT documented as of this encounter Care Teams Wood Carver Hand Relationship Specialty Start Date End Date Name, MD Gregg [address] [place] [address] PCP - General Family Medicine 04/16/15 documented as of this encounter
--- OUTSIDE RECORDS SUMMARY | 2024-05-31 18:15 | XMS_ITS | Encounter Summary ---
Author Organization [employer] [facility] Address [address] [facility] 7t [place] [address] Care Team Providers Care Entertainment Production Professional Name Role Phone Name, Gregg DIAMOND Primary Care Provider Encounter Details Date Type Department Care Team (Latest Contact Info) Description 09/27/2018 Abstract [facility] Dental, Provider, DDS Social History Tobacco [...] Description 07/06/2024 9:00 AM EDT Office Visit [facility] ADULT [facility] [address] [place] [address] Ayan Calvin DMD [address] [place] [address] 07/17/2024 11:30 AM EDT Office Visit [facility] [address] [place] [address] Name, MD Gregg [address] [place] [address] 09/21/2024 8:00 AM EDT Office Visit [facility] [address] [place] [address] Faye Mi documented as of this encounter Visit Diagnoses Not on filedocumented in this encounter Care Teams Entertainment Production Professional Relationship Specialty Start Date End Date Name, MD Gregg [address] [place] [address] PCP - General Family Medicine 04/16/15 documented as of this encounter
--- OUTSIDE RECORDS SUMMARY | 2024-05-31 18:15 | XMS_ITS | Encounter Summary ---
Author Organization [employer] Address [address] [facility] 7t [place] [address] Care Team Providers Care Banking And Finance Instructor Name Role Phone Name, Gregg DIAMOND Primary Care Provider [phone] Reason for Visit * Reason Onset Date Comments call back needed 05/23/2024 Encounter Details Date Type Department Care Team ([facility] st Contact Info) Description 05/23/2024 Telephone [facility] [address] [place] [address] Name, MD Gregg [address] [place] [address] call back needed Social History Tobacco Use [...] Telephone Encounter - Maura Taylor RN - 05/26/2024 12:29 PM EDT TC placed to Melanie CHIU at number provided [phone]. Individual that answered states it is not Melanie. Upon further research, the number provided was the patients. TC placed to Melanie at other provided number [phone]. No answer, LVM to call office back and ask to speak to the [employer] team nurses. * Telephone Encounter - Cal Robertson - 05/26/2024 11:39 AM EDT Tc from Melanie CHIU returning call regarding message below. Please contact Melanie at [phone] * Telephone Encounter - Maura Taylor RN - 05/24/2024 11:13 AM EDT TC placed to Melanie with [facility]. No answer, LVM to call office back and ask to speak to the blue team nurses. * Telephone Encounter - Keaton Arvin - 05/23/2024 3:53 PM EDT TC from Melanie With [facility] . Would like a call back to do Med reconciliation Melanie [phone] documented in this encounter Plan of Treatment Upcoming Encounters Date Type Department Care Team (Late st Contact Info) Description 07/06/2024 9:00 AM EDT Office Visit [facility] 230 [place] [address] Ayan Calvin DMD 230 [place] [address] 07/17/2024 11:30 AM EDT Office Visit [facility] [address] [place] [address] Name, MD Gregg [address] [place] [address] 09/21/2024 8:00 AM EDT Office Visit [facility] 230 [place] [address] Faye iM documented as of this encounter Visit Diagnoses Not on filedocumented in this encounter Additional Health Concerns Assessment Noted Time PHQ-9 Depression Total Score: 0 09/01/19 24 10:42 AM EDT documented as of this encounter Care Teams Banking And Finance Instructor Relationship Specialty Start Date End Date Name, MD Gregg [address] [place] [address] PCP - General Family Medicine 04/16/15 documented as of this encounter
--- OUTSIDE RECORDS SUMMARY | 2024-05-31 18:15 | XMS_ITS | Encounter Summary ---
Author Organization [employer] Address [address] [facility] [address] 7t [place] [address] Care Team Providers Care Search Director Name Role Phone Name, Gregg DIAMOND Primary Care Provider [phone] Reason for Visit * Reason Onset Date Comments PT1 02/25/2023 Encounter Details Date Type Department Care Team ([facility] st Contact Info) Description 02/25/2023 Telephone [facility] [address] [place] [address] Name, MD Gregg [address] [place] [address] PT1 Social History Tobacco Use Types Packs/Day [...] - valid through 06/2023 [facility] neurology - [id number] authorized Dr Chakraborty - [id number] pending [facility] Gen Surg - [id number] authorized [facility] - [id number] authorized Renal & Trans - [id number] authorized ENT - [id number] pending [facility] medical office - [id number] pending * Telephone Encounter - Cameron Su - 02/25/2023 4:29 PM EST PT1 needed Date: N/A Time: N/A Visits: 2 or 3 monthly Address: [address] [facility] Facility: [facility] Cardiovascular Wheel Chair: No Rotary Drier Feeder Needed: No PT1 needed Date: N/A Time: N/A Visits: 2 or 3 Monthly Address: [address] [facility] Facility: [facility] Neurology Wheel No Rotary Drier Feeder Needed: No PT1 needed Date: N/A Time: N/A Visits: 2 or 3 Monthly Address: [address] [facility] Facility: Dr Chakraborty Wheel Chair: No Rotary Drier Feeder Needed: No PT1 needed Date: N/A Time: N/A Visits: 2 or 3 Monthly Address: [address] [place] [address] dr LambertRafy [place] Facility: [facility] General Surgery Wheel Chair: No Rotary Drier Feeder Needed: No PT1 needed Date: N/A Time: N/A Visits: 2 or 3 Monthly Address: [address] [place] [address] Facility: [facility] Wheel Chair: No Rotary Drier Feeder Needed: No PT1 needed Date: N/A Time: N/A Visits: 2 or 3 monthly Address: [address] [facility] Facility: [facility] Wheel Chair: No Rotary Drier Feeder Needed: No PT1 needed Date: N/A Time: N/A Visits: 2 or 3 monthly Address: [address] [facility] Facility: [facility] Wheel Chair: No Rotary Drier Feeder Needed: No PT1 needed Date: N/A Time: N/A Visits: 2 or 3 Monthly Address: [address] [facility] [address] Cesia DESOUZA Facility: [facility] medical Office Wheel Chair: No Rotary Drier Feeder Needed: No PT1 needed Date: N/A Time: N/A Visits: 2 or 3 Monthly Address: [address] [place] [address] Facility: [facility] Wheel Chair: No Rotary Drier Feeder Needed: No documented in this encounter Plan of Treatment Upcoming Encounters Date Type Department Care Team (Late st Contact Info) Description 07/06/2024 9:00 AM EDT Office Visit [facility]ULT D[facility] [address] [place] [address] Ayan Calvin, RAMIREZ [address] [place] [address] 07/17/2024 11:30 AM EDT Office Visit [facility] [address] [place] [address] Name, MD Gregg [address] [place] [address] 09/21/2024 8:00 AM EDT Office Visit [facility] D[facility] [address] [place] [address] Faye Mi documented as of this encounter Visit Diagnoses Not on filedocumented in this encounter Additional Health Concerns Assessment Noted Time PHQ-9 Depression Total Score: 7 03/04/19 23 9:17 AM EST documented as of this encounter Care Teams Search Director Relationship Specialty Start Date End Date Name, MD Gregg [address] [place] [address] PCP - General Family Medicine 04/16/15 documented as of this encounter
--- OUTSIDE RECORDS SUMMARY | 2024-05-31 18:15 | XMS_ITS | Encounter Summary ---
Author Organization [employer] [facility] Address [address] [facility] 7t [place] [address] Care Team Providers Care Supervisor Loading Name Role Phone Name, Gregg DIAMOND Primary Care Provider [phone] Reason for Visit * Reason Comments Med Refill Encounter Details Date Type Department Care Team ( Contact Info) Description 10/06/2022 Refill [facility] [address] [place], [place] [phone] Name, MD Gregg [address] [place] [address] Osteoporosis, unspecified osteoporosis type, unspecified pathological fracture [...] 9:00 AM EDT Office Visit [facility] ADULT DENT[facility] [address] [place], [place] [phone] Ayan Calvin, RAMIREZ [address] [place], [place] [phone] 07/17/2024 11:30 AM EDT Office Visit [facility] [address] [place] [address] Name, MD Gregg [address] [place] [address] 09/21/2024 8:00 AM EDT Office Visit [facility] [address] [place] [address] Faye Mi documented as of this encounter Visit Diagnoses Diagnosis Osteoporosis, unspecified osteoporosis type, unspecified pathological fracture presence documented in this encounter Additional Health Concerns Assessment Noted Time PHQ-9 Depression Total Score: 7 03/04/19 23 9:17 AM EST documented as of this encounter Care Teams Supervisor Loading Relationship Specialty Start Date End Date Name, MD Gregg [address] [place] [address] PCP - General Family Medicine 04/16/15 documented as of this encounter
== END 2024-05-31 16:14 | disposition home or self-care (01) ==
LOC: HO.MRI 16:13
PROVIDERS: PCP Internal Medicine Geriatric Medicine; Visit Provider Anesthesiology
DX: M46.1 Sacroiliitis, not elsewhere classified (principal); M51.369 Other intervertebral disc degeneration, lumbar region without mention of lumbar back pain or lower extremity pain; M54.16 Radiculopathy, lumbar region
CPT/HCPCS: 72148

== ENCOUNTER → 2024-05-31 16:29 | Outpatient (BNV) | payer OTHER, SELFPAY | PROVIDERS: PCP Internal Medicine Geriatric Medicine; Visit Provider Radiology Diagnostic Radiology | DX: M46.1 Sacroiliitis, not elsewhere classified (principal) | CPT/HCPCS: 72148 ==

== ENCOUNTER 2024-06-01 10:30 | Outpatient (AMB) | payer OTHER, SELFPAY ==
--- NOTE | 2024-06-01 10:47 | MHC.OFFVIS ---
Intake Visit Reasons: INJ- B/L knee Euflexxa #2 Intake Note: Mag is a 63 year old female who presents today for her bilateral knee euflexxa gel injections #2. She states that she hasn't noticed a change in her pain yet. Allergies nalbuphine [From Nubain] Allergy (Severe, Verified 06/01/24 10:54) Anaphylaxis oxycodone Adverse Reaction (Verified 06/01/24 10:54) itchy tramadol Adverse Reaction (Verified 06/01/24 10:54) itchy Medication List - Last Reconciled 06/01/24 by Ko Villegas PA-C acetaminophen (Tylenol) 650 mg (2 x 325 mg) PO Q6H PRN albuterol sulfate 90 mcg/actuation (Ventolin HFA) 2 puffs PO Q6H PRN 30 days albuterol sulfate 2.5 mg (3 mL) inhalation Q4H PRN 30 days alendronate 70 mg PO TU amoxicillin-pot clavulanate 875-125 mg 1 tab PO BID azithromycin For 250 mg dose pack: take 500 mg today (day 1), then 250 mg for 4 days (days 2-5) benzonatate 100 mg PO BID PRN celecoxib (Celebrex) 200 mg PO BID 30 days cetirizine 10 mg PO DAILY PRN cholecalciferol (vitamin D3) 25 mcg PO DAILY cyclobenzaprine 10 mg PO Q8H doxepin 75 mg PO BEDTIME estazolam 3 mg PO BEDTIME fluticasone propion-salmeterol 250-50 mcg/dose (Advair Diskus) 1 inh inhalation BID 30 days ibuprofen 800 mg PO Q8H PRN levothyroxine 100 mcg PO DAILY@0600 lidocaine 5% 1 patch topical DAILY lorazepam (Ativan) 1 mg PO DAILY PRN 1 day magnesium oxide 400 mg PO DAILY@1200 meclizine (Dramamine Less Drowsy) 25 mg PO TID PRN methocarbamol 1,500 mg (2 x 750 mg) PO QID PRN omeprazole 40 mg PO DAILY@0630 ondansetron 4 mg PO Q6H PRN oxycodone 5 mg PO Q6H PRN perphenazine 4 mg PO BID@1200,2100 polyethylene glycol 3350 (Miralax) 17 grams PO DAILY prednisone 40 mg (2 x 20 mg) PO DAILY 5 days prednisone 40 mg (2 x 20 mg) PO DAILY 5 days pyridoxine (vitamin B6) 200 mg PO DAILY@1200 semaglutide (weight loss) (Wegovy) 1 mg subcut DAILY sucralfate 1 g PO TID PRN venlafaxine mg PO HPI HPI INJ- B/L knee Euflexxa #2: Details: 63-year-old female presents to the office today for bilateral knee Euflexxa injections. [facility] Medical History Bronchitis Somnolence, daytime Obesity (BMI 30-39.9) Nausea & vomiting Migraine Syncope Pseudotumor cerebri Kidney calculi Crystal arthropathy Right shoulder injury Kidney tumor COVID-19 vaccine administered Thyroid disease Colon polyp Diverticulosis of colon Bronchial asthma Acid reflux Surgical History Status post excision of lipoma (09/10/23) History of esophagogastroduodenoscopy (EGD) History of surgery on wrist History of hysterectomy Previous section Hx laparoscopic cholecystectomy Hx of gastric bypass (03/12/15) Hx of colonoscopy Family History Father Heart disease History of open heart surgery Mother Heart disease Social History Household Members: None Household Members Other:: alone Are you a primary health care coach to a significant other at home: No Do you presently have visiting nurse or other home services: No Alcohol intake: never Patient Tobacco Use Status: Former Tobacco user Tobacco use type: Cigarette service: No Current occupational status: disabled Review of Systems Const All systems reviewed & are unremarkable except as noted in HPI and below Physical Exam Const General: cooperative, healthy appearing, comfortable, no acute distress, well developed and alert Orientation/consciousness: patient oriented x3 HEENT Head: Yes normal to inspection, Yes normocephalic and Yes atraumatic Eyes General: appearance normal, both eyes and all related structures Resp Effort & Inspection: normal respiratory effort and able to speak in complete sentences Cardio Rate: regular rate Peripheral pulses: Peripheral pulses 2+ throughout GI Palpation (GI): Soft to palpation Skin Lesions: no lesions Rashes: no rashes Neuro General: patient oriented x3 Extrem Other: Bilat knee: Skin intact, no erythema or joint effusion. Tenderness along the medial and lateral joint line. Full ROM with crepitus. Negative Kiki?s. No ligamentous laxity. NVI. Office Procedures AMB Joint Injection/Aspiration Joint Injection/Aspiration Primary Site: right knee Secondary Site: left knee Prep: site was prepped using aseptic technique, ethochloride spray was applied and injection warnings given Injected: in the joint Approach Used: anterolateral Procedure: The patient tolerated the procedure well Coding 82441 - Glenohumeral/Tronchanteric Bursa/Intraarticular Procedure code (CPT) selection complete Assessment & Plan Assessment & Plan (1) Osteoarthritis of knees, bilateral: Code(s): M17.0 - Bilateral primary osteoarthritis of knee Category: Medical Plan: We discussed options today, which include steroid injection. The patient did consent to move forward with bialt knee euflexxa injection, which was tolerated well.? I recommended rest, ice and elevation and OTC antiinflammatories prn for discomfort. She will see me back next week for her next set of euflexxa injection. Orders: Referrals Rheumatology Referral M35.3 - Polymyalgia rheumatica Coding Level of Care Code Procedure Only Diagnoses Osteoarthritis of knees, bilateral M17.0 CPT Codes Coding - Joint 7: 01629 - Glenohumeral/Tronchanteric Bursa/Intraarticular ([id number])
--- OUTSIDE RECORDS SUMMARY | 2024-06-01 12:37 | XMS_ITS | Encounter Summary ---
Author Organization [employer] Address [address] 7t [place] [address] Care Team Providers Care French Binder Name Role Phone Name, Gregg DIAMOND Primary Care Provider [phone] Reason for Visit * Reason Onset Date Comments PT1 07/27/2023 Encounter Details Date Type Department Care Team ([facility] st Contact Info) Description 07/27/2023 Telephone [facility] MEDICINE [address] [place] [address] Name, MD Gregg [address] [place] [address] PT1 Social History Tobacco Use Types Packs/Day [...] name: Dr. Carson Smith MD Facility Address: [address] [place] [address] [address], [facility], [id number] Escort needed: Y/N: No Do you have a wheelchair: Y/N: No If yes- Manual or electric: Visits: 2-3 Next upcoming appt 08/03/23 documented in this encounter Plan of Treatment Upcoming Encounters Date Type Department Care Team (Late st Contact Info) Description 07/06/2024 9:00 AM EDT Office Visit [facility] ADULT DENTAL [address] [place] [address] Ayan Calvin DMD [address] [place] [address] 07/17/2024 11:30 AM EDT Office Visit [facility] MEDICINE [address] [place] [address] Name, MD Gregg [address] [place], [place] [phone] 09/21/2024 8:00 AM EDT Office Visit [facility] ADULT DENTAL [address] [place] [address] Faye Mi documented as of this encounter Visit Diagnoses Not on filedocumented in this encounter Additional Health Concerns Assessment Noted Time PHQ-9 Depression Total Score: 7 03/04/19 23 9:17 AM EST documented as of this encounter Care Teams French Binder Relationship Specialty Start Date End Date Name, MD Gregg [address] [place] [address] PCP - General Family Medicine 04/16/15 documented as of this encounter
--- OUTSIDE RECORDS SUMMARY | 2024-06-01 12:37 | XMS_ITS | Encounter Summary ---
Author Organization [employer] Address [address] [facility] 7t [place] [address] Care Team Providers Care Driver Wheelchair Name Role Phone Name, Gregg DIAMOND Primary Care Provider [phone] Reason for Visit * Reason Onset Date Comments Appointment Request 04/18/2024 Encounter Details Date Type Department Care Team ([facility] st Contact Info) Description 04/18/2024 Telephone [facility] MEDICINE [address] [place] [address] Name, MD Gregg [address] [place] [address] Appointment Request Social History Tobacco Use Types [...] PCP. Pt states will be out of [place] from June 18- as she has an appointment with the oncologist on the and with the neurosurgeon on June 27. documented in this encounter Plan of Treatment Upcoming Encounters Date Type Department Care Team (Late st Contact Info) Description 07/06/2024 9:00 AM EDT Office Visit [facility] ADULT DENTAL [address] [place] [address] Ayan Calvin, RAMIREZ [address] [place] [address] 07/17/2024 11:30 AM EDT Office Visit [facility] MED[facility]INE [address] [place] [address] Name, MD Gregg 230 [place] [address] 09/21/2024 8:00 AM EDT Office Visit [facility] ADULT DENTAL [address] [place] [address] Faye Mi documented as of this encounter Visit Diagnoses Not on filedocumented in this encounter Additional Health Concerns Assessment Noted Time PHQ-9 Depression Total Score: 0 09/01/19 24 10:42 AM EDT documented as of this encounter Care Teams Driver Wheelchair Relationship Specialty Start Date End Date Name, MD Gregg [address] [place] [address] PCP - General Family Medicine 04/16/15 documented as of this encounter
--- OUTSIDE RECORDS SUMMARY | 2024-06-01 12:37 | XMS_ITS | Encounter Summary ---
Author Organization [employer] Address [address] [facility] [address] [facility] [address] 7[address] [place] [address] Care Team Providers Care Typesetters Printer Name Role Phone Name, Gregg DIAMOND Primary Care Provider [phone] Encounter Details Date Type Department Care Team ([facility] st Contact Info) Description 05/24/2024 Telephone [facility] MEDICINE 230 [place], [place] [phone] Name, MD Gregg 230 [place] [address] Social History Tobacco Use Types Packs/Day Years [...] 9:00 AM EDT Office Visit [facility] ADULT DENTAL [address] [place] [address] Ayan Calvin, RAMIREZ 230 [place] [address] 07/17/2024 11:30 AM EDT Office Visit [facility] MEDICINE [address] [place] [address] Name, MD Gregg [address] [place] [address] 09/21/2024 8:00 AM EDT Office Visit [facility] ADULT DENTAL [address] [place] [address] Faye Mi documented as of this encounter Visit Diagnoses Not on filedocumented in this encounter Additional Health Concerns Assessment Noted Time PHQ-9 Depression Total Score: 0 09/01/19 24 10:42 AM EDT documented as of this encounter Care Teams Typesetters Printer Relationship Specialty Start Date End Date Name, MD Gregg [address] [place] [address] PCP - General Family Medicine 04/16/15 documented as of this encounter
--- OUTSIDE RECORDS SUMMARY | 2024-06-01 12:37 | XMS_ITS | Encounter Summary ---
Author Organization [employer] Address [address] [facility] 7t [place] [address] Care Team Providers Care Loss Prevention Operations Manager Name Role Phone Name, Gregg DIAMOND Primary Care Provider [phone] Reason for Visit * Reason Onset Date Comments ER Follow-up 05/02/2024 Nurse Triage 05/02/2024 Encounter Details Date Type Department Care Team ([facility] st Contact Info) Description 05/02/2024 Telephone [facility] MEDICINE [address] [place] [address] Name, MD Gregg 230 [place] [address] ER Follow-up; Nurse Triage Social History Tobacco [...] of the rollator walker. TC placed to [facility] pharamcyregarding the fosamax. Lori states the [...] in June as she will leaving for [place] at the beginning of June Pt requesting a call from PCP. Cylinder Machine Operator Pulp Drier found telehealth visit in PCP schedule. Pt [...] find out more information. TC placed to [facility] pharamcy regardingthe fosamax. Lori states the [...] She states that she went [place] [facility] yesterday due to right leg pain and right knee isswollen. Pt. Was also having throbbing pain in left side of groin. [facility] did not find any blood clot in leg and Xray of left hip and pelvis-negative. ED is recommending referral to Area Representative according to pt. Pt does not want [...] that she remembers. Pt. Needs referral to Area Representative. Offered pt. Appt. Today but, pt. Only wants to speak to pcp and is requesting appt. With PCP only or call from PCP to discuss updates and needs. Please get back to pt. To let her know if any of these needs can be met Will send request to Clinical coordinators to get [facility] report from yesterday into pt. Chart. Multiple needs. * Telephone Encounter - Shubham Booth - 05/02/2024 10:20 AM EDT Patient calling to report ED visit on : Date: 05/01/2024 Hospital: [facility] Seen for: Knee pain , groin pain [...] Description 07/06/2024 9:00 AM EDT Office Visit [facility] ADULT DENTAL [address] [place] [address] Ayan Calvin DMD [address] [place] [address] 07/17/2024 11:30 AM EDT Office Visit [facility] MEDICINE [address] [place] [address] Name, MD Gregg 230 [place] [address] 09/21/2024 8:00 AM EDT Office Visit [facility] ADULT DENTAL [address] [place] [address] Faye Mi documented as of this encounter Visit Diagnoses Not on filedocumented in this encounter Additional Health Concerns Assessment Noted Time PHQ-9 Depression Total Score: 0 09/01/19 24 10:42 AM EDT documented as of this encounter Care Teams Loss Prevention Operations Manager Relationship Specialty Start Date End Date Name, MD Gregg 230 [place] [address] PCP - General Family Medicine 04/16/15 documented as of this encounter
--- OUTSIDE RECORDS SUMMARY | 2024-06-01 12:37 | XMS_ITS | Encounter Summary ---
Author Organization [employer] Address [address] 7t [place] [address] Care Team Providers Care Software Asset Manager Name Role Phone Name, Gregg DIAMOND Primary Care Provider [phone] Reason for Visit * Reason Onset Date Comments Request For Order(s) 07/30/2023 Encounter Details Date Type Department Care Team ([facility] st Contact Info) Description 07/30/2023 Telephone [facility] MEDICINE 230 [place], [place] [phone] Name, MD Gregg [address] [place] [address] Request For Order(s) Social History Tobacco Use [...] done. Please clarify Please contact pt at [phone] (No school patrol needed) documented in this encounter Plan of Treatment Upcoming Encounters Date Type Department Care Team (Late st Contact Info) Description 07/06/2024 9:00 AM EDT Office Visit [facility] ADULT DENTAL [address] [place] [address] Ayan Calvin DMD [address] [place] [address] 07/17/2024 11:30 AM EDT Office Visit [facility] MEDICINE [address] [place] [address] Name, MD Gregg [address] [place] [address] 09/21/2024 8:00 AM EDT Office Visit [facility] ADULT DENTAL [address] [place] [address] Faye Mi documented as of this encounter Visit Diagnoses Not on filedocumented in this encounter Additional Health Concerns Assessment Noted Time PHQ-9 Depression Total Score: 7 03/04/19 23 9:17 AM EST documented as of this encounter Care Teams Software Asset Manager Relationship Specialty Start Date End Date NameGregg MD 230 [place] [address] PCP - General Family Medicine 04/16/15 documented as of this encounter
--- OUTSIDE RECORDS SUMMARY | 2024-06-01 12:37 | XMS_ITS | Encounter Summary ---
Author Organization [employer] Address [address] 7t [place] [address] Care Team Providers Care Desk Lieutenant Name Role Phone Name, Gregg DIAMOND Primary Care Provider [phone] Reason for Visit * Reason Onset Date Comments broken tooth to hold partial 02/28/2024 Encounter Details Date Type Department Care Team (Late st Contact Info) Description 02/28/2024 Telephone [facility] ADULT DENTAL [address] [place] [address] Ayan Calvin, DMD [address] [place] [address] broken tooth to hold partial Social History [...] Description 07/06/2024 9:00 AM EDT Office Visit [facility] ADULT DENTAL [address] [place] [address] Ayan Calvin, RAMIREZ [address] [place] [address] 07/17/2024 11:30 AM EDT Office Visit [facility] MEDICINE [address] [place] [address] Name, MD Gregg [address] [place] [address] 09/21/2024 8:00 AM EDT Office Visit [facility] ADULT DENTAL [address] [place] [address] Faye Mi documented as of this encounter Visit Diagnoses Not on filedocumented in this encounter Additional Health Concerns Assessment Noted Time PHQ-9 Depression Total Score: 0 09/01/19 24 10:42 AM EDT documented as of this encounter Care Teams Desk Lieutenant Relationship Specialty Start Date End Date Name, MD Gregg [address] [place] [address] PCP - General Family Medicine 04/16/15 documented as of this encounter
--- OUTSIDE RECORDS SUMMARY | 2024-06-01 12:37 | XMS_ITS | Encounter Summary ---
Author Organization [employer] Address [address] [facility] 7t [place] [address] Care Team Providers Care Specifications Writer Name Role Phone Name, Gregg DIAMOND Primary Care Provider [phone] Reason for Visit * Reason Onset Date Comments Nurse Triage 05/04/2024 Encounter Details Date Type Department Care Team ([facility] st Contact Info) Description 05/04/2024 Telephone [facility] MEDICINE 230 [place] [address] Name, MD Gregg 230 [place] [address] Nurse Triage Social History Tobacco Use Types [...] information. Do see mention of hemorrhoids. No charge manager needed as this public relations writer speaks Armenian. Call returned to Mag Ayala to triage [...] to perform UA. Pt requesting referral to Rn Lab per recommendation from Swimming Pool Attendant. Pt advised will forward note to Provider [...] acuity questions The caller accepted this outcome. [phone] (turkmen) pt states knows Kyrgyz but there are some words she can't say or understand. Tc from pt stating visited the university counselor today, and he told pt should ask her PCP for a referral for a prosthetic because pt has several purple veins in the anus. Pt states this hasn't happenedto her before. documented in this encounter Plan of Treatment Upcoming Encounters Date Type Department Care Team (Late st Contact Info) Description 07/06/2024 9:00 AM EDT Office Visit [facility] ADULT DENTAL [address] [place] [address] Ayan Calvin, RAMIREZ [address] [place] [address] 07/17/2024 11:30 AM EDT Office Visit [facility] MEDICINE [address] [place] [address] Name, MD Gregg 230 [place] [address] 09/21/2024 8:00 AM EDT Office Visit [facility] ADULT DENTAL [address] [place] [address] Faye Mi documented as of this encounter Visit Diagnoses Not on filedocumented in this encounter Additional Health Concerns Assessment Noted Time PHQ-9 Depression Total Score: 0 09/01/19 24 10:42 AM EDT documented as of this encounter Care Teams Specifications Writer Relationship Specialty Start Date End Date Name, MD Gregg 230 [place] [address] PCP - General Family Medicine 04/16/15 documented as of this encounter
--- OUTSIDE RECORDS SUMMARY | 2024-06-01 12:37 | XMS_ITS | Encounter Summary ---
Author Organization [employer] Address [address] 7t [place] [address] Care Team Providers Care Bioinformatics Analyst Name Role Phone Name, Gregg DIAMOND Primary Care Provider [phone] Reason for Visit * Reason Onset Date Comments clarification of tx 08/09/2023 Encounter Details Date Type Department Care Team (Late st Contact Info) Description 08/09/2023 Telephone [facility] ADULT DENTAL [address] [place] [address] Ayan Calvin, DMD [address] [place] [address] clarification of tx Social History Tobacco Use [...] you to call her. She went to [facility] for [facility] today but is looking [...] Description 07/06/2024 9:00 AM EDT Office Visit [facility] ADULT DENTAL [address] [place] [address] Ayan Calvin, RAMIREZ [address] [place] [address] 07/17/2024 11:30 AM EDT Office Visit [facility] MEDICINE [address] [place] [address] Name, MD Gregg 230 [place] [address] 09/21/2024 8:00 AM EDT Office Visit [facility] ADULT DENTAL [address] [place] [address] Faye Mi documented as of this encounter Visit Diagnoses Not on filedocumented in this encounter Additional Health Concerns Assessment Noted Time PHQ-9 Depression Total Score: 7 03/04/19 23 9:17 AM EST documented as of this encounter Care Teams Bioinformatics Analyst Relationship Specialty Start Date End Date Name, MD Gregg 230 [place] [address] PCP - General Family Medicine 04/16/15 documented as of this encounter
--- OUTSIDE RECORDS SUMMARY | 2024-06-01 12:37 | XMS_ITS | Encounter Summary ---
Author Organization [employer] Address [address] [facility] [address] 7[address] [place] [address] Care Team Providers Care Coffee Weigher Name Role Phone Name, Gregg DIAMOND Primary Care Provider [phone] Reason for Visit * Reason Comments Med Refill Encounter Details Date Type Department Care Team ([facility] st Contact Info) Description 08/03/2023 Refill [facility] MEDICINE 230 [place], [place] [phone] Name, MD Gregg [address] [place] [address] Social History Tobacco Use Types Packs/Day Years [...] the past 12 months, has t he [employer], [employer], oil or water company threatened to shut [...] Description 07/06/2024 9:00 AM EDT Office Visit [facility] ADULT DENTAL [address] [place] [address] Ayan Calvin DMD 230 [place] [address] 07/17/2024 11:30 AM EDT Office Visit [facility] MEDICINE [address] [place] [address] Name, MD Gregg [address] [place] [address] 09/21/2024 8:00 AM EDT Office Visit [facility] ADULT DENTAL [address] [place] [address] Faye Mi documented as of this encounter Visit Diagnoses Not on filedocumented in this encounter Additional Health Concerns Assessment Noted Time PHQ-9 Depression Total Score: 7 03/04/19 23 9:17 AM EST documented as of this encounter Care Teams Coffee Weigher Relationship Specialty Start Date End Date NameGregg MD [address] [place] [address] PCP - General Family Medicine 04/16/15 documented as of this encounter
--- OUTSIDE RECORDS SUMMARY | 2024-06-01 12:37 | XMS_ITS | Encounter Summary ---
Author Organization [employer] Address [address] [facility] 7t [place] [address] Care Team Providers Care Communications Programmer Name Role Phone Name, Gregg IDAMOND Primary Care Provider [phone] Reason for Visit * Reason Onset Date Comments Appointment Request 05/24/2024 Encounter Details Date Type Department Care Team ([facility] st Contact Info) Description 05/24/2024 Telephone [facility] MEDICINE 230 [place] [address] Name, MD Gregg [address] [place] [address] Appointment Request Social History Tobacco Use Types [...] the phone she will. Contact pt at [phone] documented in this encounter Plan of Treatment Upcoming Encounters Date Type Department Care Team (Late st Contact Info) Description 07/06/2024 9:00 AM EDT Office Visit [facility] ADULT DENTAL [address] [place] [address] Ayan Calvin DMD [address] [place] [address] 07/17/2024 11:30 AM EDT Office Visit [facility] MEDICINE [address] [place] [address] Name, MD Gregg [address] [place] [address] 09/21/2024 8:00 AM EDT Office Visit [facility] ADULT DENTAL [address] [place] [address] Faye Mi documented as of this encounter Visit Diagnoses Not on filedocumented in this encounter Additional Health Concerns Assessment Noted Time PHQ-9 Depression Total Score: 0 09/01/19 24 10:42 AM EDT documented as of this encounter Care Teams Communications Programmer Relationship Specialty Start Date End Date Name, MD Gregg [address] [place] [address] PCP - General Family Medicine 04/16/15 documented as of this encounter
--- OUTSIDE RECORDS SUMMARY | 2024-06-01 12:37 | XMS_ITS | Encounter Summary ---
Author Organization [employer] Address [address] 7[address] [place] [address] Care Team Providers Care Stylist Assistant Name Role Phone Name, Gregg DIAMOND Primary Care Provider [phone] Reason for Visit * Reason Comments Med Refill Encounter Details Date Type Department Care Team ([facility] st Contact Info) Description 11/16/2023 Refill [facility] [address] [place], [place] [phone] Yennifer Ramirez MD 230 [place] [address] Flu-like symptoms Social History Tobacco Use Types [...] 07/06/2024 9:00 AM EDT Office Visit [facility] [address] [place] [address] Ayan Calvin DMD [address] [place] [address] 07/17/2024 11:30 AM EDT [facility] [address] [place] [address] Name, MD Gregg [address] [place] [address] 09/21/2024 8:00 AM EDT Office Visit [facility] [address] [place] [address] Faye Mi documented as of this encounter Visit Diagnoses Diagnosis Flu-like symptoms documented in this encounter Additional Health Concerns Assessment Noted Time PHQ-9 Depression Total Score: 0 09/01/19 24 10:42 AM EDT documented as of this encounter Care Teams Stylist Assistant Relationship Specialty Start Date End Date Name, MD Gregg [address] [place] [address] PCP - General Family Medicine 04/16/15 documented as of this encounter
--- OUTSIDE RECORDS SUMMARY | 2024-06-01 12:37 | XMS_ITS | Encounter Summary ---
Author Organization [employer] Address [address] [facility] [facility] [address]t [place] [address] Care Team Providers Care Rubber Goods Cutter Finisher Name Role Phone Name, Gregg DIAMOND Primary Care Provider [phone] Reason for Visit * Reason Comments Med Refill Encounter Details Date Type Department Care Team ([facility] st Contact Info) Description 02/14/2024 Refill [facility] MEDICINE 230 [place], [place] [phone] Name, MD Gregg 230 [place] [address] Social History Tobacco Use Types Packs/Day Years [...] Description 07/06/2024 9:00 AM EDT Office Visit [facility] ADULT DENTAL [address] [place] [address] Ayan Calvin, RAMIREZ 230 [place] [address] 07/17/2024 11:30 AM EDT Office Visit [facility] MEDICINE [address] [place] [address] Name, MD Gregg [address] [place] [address] 09/21/2024 8:00 AM EDT Office Visit [facility] ADULT DENTAL [address] [place] [address] Faye Mi documented as of this encounter Visit Diagnoses Not on filedocumented in this encounter Additional Health Concerns Assessment Noted Time PHQ-9 Depression Total Score: 0 09/01/19 24 10:42 AM EDT documented as of this encounter Care Teams Rubber Goods Cutter Finisher Relationship Specialty Start Date End Date Name, MD Gregg [address] [place] [address] PCP - General Family Medicine 04/16/15 documented as of this encounter
--- OUTSIDE RECORDS SUMMARY | 2024-06-01 12:37 | XMS_ITS | Encounter Summary ---
Author Organization [employer] Address [address] 7[address] [place] [address] Care Team Providers Care Dynamometer Tuner Name Role Phone Name, Gregg DIAMOND Primary Care Provider [phone] Encounter Details Date Type Department Care Team ([facility] st Contact Info) Description 10/21/2023 Telephone [facility] ADULT DENTAL [address] [place] [address] Ayan Calvin, DMD [address] [place] [address] Social History Tobacco Use Types Packs/Day Years [...] 07/06/2024 9:00 AM EDT Office Visit [facility] ADULT DENTAL [address] [place] [address] Ayan Calvin, RAMIREZ [address] [place] [address] 07/17/2024 11:30 AM EDT Office Visit [facility] MEDICINE [address] [place] [address] Name, MD Gregg [address] [place] [address] 09/21/2024 8:00 AM EDT Office Visit [facility] ADULT DENTAL [address] [place] [address] Faye Mi documented as of this encounter Visit Diagnoses Not on filedocumented in this encounter Additional Health Concerns Assessment Noted Time PHQ-9 Depression Total Score: 0 09/01/19 24 10:42 AM EDT documented as of this encounter Care Teams Dynamometer Tuner Relationship Specialty Start Date End Date Name, MD Gregg 230 [place] [address] PCP - General Family Medicine 04/16/15 documented as of this encounter
--- OUTSIDE RECORDS SUMMARY | 2024-06-01 12:38 | XMS_ITS | Encounter Summary ---
Author Organization [employer] Address [address] [place] [address] Care Team Providers Care Sales Assistant Displays Name Role Phone Name, Gregg DIAMOND Primary Care Provider [phone] Reason for Visit * Reason Comments Med Refill Encounter Details Date Type Department Care Team ([facility] st Contact Info) Description 07/13/2023 Refill [facility] [address] [place] [address] Ban Granados FNP [address] [place] [address] Social History Tobacco Use Types Packs/Day Years [...] t he electric, gas, oil or water [employer] threatened to shut off services in your [...] 3:57 PM EDT Pt came into the [facility] asking for refills on Wegomy meds. She wants Dr. Granados to send the refill in two days to be able to machine pecan picker in pharmacy. 07/13/23 documented in this encounter Plan of Treatment Upcoming Encounters Date Type Department Care Team (Late st Contact Info) Description 07/06/2024 9:00 AM EDT Office Visit [facility] ADULT DENTAL [address] [place] [address] Ayan Calvin, RAMIREZ [address] [place] [address] 07/17/2024 11:30 AM EDT Office Visit [facility] [address] [place] [address] Name, MD Gregg [address] [place] [address] 09/21/2024 8:00 AM EDT Office Visit [facility] ADULT D[facility] [address] [place] [address] Faye Mi documented as of this encounter Visit Diagnoses Not on filedocumented in this encounter Additional Health Concerns Assessment Noted Time PHQ-9 Depression Total Score: 7 03/04/19 23 9:17 AM EST documented as of this encounter Care Teams Sales Assistant Displays Relationship Specialty Start Date End Date Gregg Gandhi MD [address] [place] [phone] PCP - General Family Medicine 04/16/15 documented as of this encounter
--- OUTSIDE RECORDS SUMMARY | 2024-06-01 12:38 | XMS_ITS | Encounter Summary ---
Author Organization [employer] Address [address] [facility] 7t [place] [address] Care Team Providers Care Upper Trimmer Name Role Phone Name, Gregg DIAMOND Primary Care Provider [phone] Encounter Details Date Type Department Care Team (Late st Contact Info) Description 07/20/2022 Abstract [facility] [address] [place] [phone] Name, MD Gregg [address] [place] [phone] Social History Tobacco Use Types Packs/Day Years [...] Description 07/06/2024 9:00 AM EDT Office Visit [facility]ULT [facility] [address] [place] [address] Ayan Calvin DMD [address] [place] [address] 07/17/2024 11:30 AM EDT Office Visit [facility] [address] [place] [address] Name, MD Gregg [address] [place] [address] 09/21/2024 8:00 AM EDT Office Visit [facility] [address] [place] [address] Faye Mi documented as of this encounter [...] documented as of this encounter Care Teams Upper Trimmer Relationship Specialty Start Date End Date Name, MD Gregg [facility] [place] [address] PCP - General Family Medicine 04/16/15 documented as of this encounter
--- OUTSIDE RECORDS SUMMARY | 2024-06-01 12:38 | XMS_ITS | Encounter Summary ---
Author Organization [employer] [facility] Address [address] [facility] 7t [place] [address] Care Team Providers Care Clamshell Engineer Name Role Phone Name, Gregg DIAMOND Primary Care Provider [phone] Encounter Details Date Type Department Care Team (Late st Contact Info) Description 01/14/2022 Abstract [facility] ADULT DENTAL [address] [place] [address] Dental, Provider, DDS Social History Tobacco Use [...] Description 07/06/2024 9:00 AM EDT Office Visit [facility] ADULT D[facility]AL [address] [place] [address] Ayan Calvin DMD [address] [place] [address] 07/17/2024 11:30 AM EDT Office Visit [facility] MED[facility]INE [address] [place] [address] Gregg Gandhi MD [address] [place] [address] 09/21/2024 8:00 AM EDT Office Visit [facility] ADULT D[facility]AL [address] [place] [address] Mi, Faye documented as of this encounter [...] on filedocumented in this encounter Care Teams Clamshell Engineer Relationship Specialty Start Date End Date Name, MD Gregg [address] [place] [phone] PCP - General Family Medicine 04/16/15 documented as of this encounter
--- OUTSIDE RECORDS SUMMARY | 2024-06-01 12:38 | XMS_ITS | Encounter Summary ---
Author Organization [employer] Address [address] [place] [address] Care Team Providers Care Reclamation Worker Name Role Phone Name, Gregg DIAMOND Primary Care Provider [phone] Reason for Visit * Reason Onset Date Comments Nurse Triage 11/27/2022 Encounter Details Date Type Department Care Team ([facility] st Contact Info) Description 11/27/2022 Telephone [facility] MEDICINE [address] [place] [address] Name, MD Gregg [address] [place] [address] Nurse Triage Social History Tobacco Use Types [...] caller accepted this outcome Does not need propeller inspector . documented in this encounter Plan of Treatment Upcoming Encounters Date Type Department Care Team (Late st Contact Info) Description 07/06/2024 9:00 AM EDT Office Visit [facility] ADULT DENTAL [address] [place] [address] Ayan Calvin DMD [address] [place] [address] 07/17/2024 11:30 AM EDT Office Visit [facility] MED[facility]INE [address] [place] [address] Name, MD Gregg [address] [place] [address] 09/21/2024 8:00 AM EDT Office Visit [facility] ADULT DENTAL [address] [place] [address] Faye Mi documented as of this encounter Visit Diagnoses Not on filedocumented in this encounter Additional Health Concerns Assessment Noted Time PHQ-9 Depression Total Score: 7 03/04/19 23 9:17 AM EST documented as of this encounter Care Teams Reclamation Worker Relationship Specialty Start Date End Date Name, MD Gregg [address] [place] [address] PCP - General Family Medicine 04/16/15 documented as of this encounter
--- OUTSIDE RECORDS SUMMARY | 2024-06-01 12:38 | XMS_ITS | Encounter Summary ---
Author Organization [employer] Address [address] [place] [address] Care Team Providers Care Technical Operations Specialist Name Role Phone Name, Gregg DIAMOND Primary Care Provider [phone] Reason for Visit * Reason Onset Date Comments PT1 02/25/2023 Encounter Details Date Type Department Care Team ([facility] st Contact Info) Description 02/25/2023 Telephone [facility] [address] [place] [address] Name, MD Gregg [address] [place] [address] PT1 Social History Tobacco Use Types Packs/Day [...] - valid through 06/2023 [facility] neurology - [id number] authorized Dr Chakraborty - [id number] pending [facility] Gen Surg - [id number] authorized [facility] - [id number] authorized Renal & Trans - [id number] authorized ENT - [id number] pending [facility] medical office - [id number] pending * Telephone Encounter - Cameron Su - 02/25/2023 4:29 PM EST PT1 needed Date: N/A Time: N/A Visits: 2 or 3 monthly Address: [address] [facility] Facility: [facility] Cardiovascular Wheel Chair: No Shoe Packer Needed: No PT1 needed Date: N/A Time: N/A Visits: 2 or 3 Monthly Address: [address] [facility] Facility: [facility] Neurology Wheel No Shoe Packer Needed: No PT1 needed Date: N/A Time: N/A Visits: 2 or 3 Monthly Address: [address] [facility] Facility: Dr Chakraborty Wheel Chair: No Shoe Packer Needed: No PT1 needed Date: N/A Time: N/A Visits: 2 or 3 Monthly Address: [address] [place] [address] dr LambertRafy [place] Facility: [facility] General Surgery Wheel Chair: No Shoe Packer Needed: No PT1 needed Date: N/A Time: N/A Visits: 2 or 3 Monthly Address: [address] [place] [address] Facility: [facility] Wheel Chair: No Shoe Packer Needed: No PT1 needed Date: N/A Time: N/A Visits: 2 or 3 monthly Address: [address] [facility] Facility: [facility] Wheel Chair: No Shoe Packer Needed: No PT1 needed Date: N/A Time: N/A Visits: 2 or 3 monthly Address: [address] [facility] Facility: [facility] Wheel Chair: No Shoe Packer Needed: No PT1 needed Date: N/A Time: N/A Visits: 2 or 3 Monthly Address: [address] [facility] [address] Cesia DESOUZA Facility: [facility] medical Office Wheel Chair: No Shoe Packer Needed: No PT1 needed Date: N/A Time: N/A Visits: 2 or 3 Monthly Address: [address] [place] [address] Facility: [facility] Wheel Chair: No Shoe Packer Needed: No documented in this encounter Plan of Treatment Upcoming Encounters Date Type Department Care Team (Late st Contact Info) Description 07/06/2024 9:00 AM EDT Office Visit [facility]ULT D[facility] [address] [place] [address] Ayan Calvin, RAMIREZ [address] [place] [address] 07/17/2024 11:30 AM EDT Office Visit [facility] [address] [place] [address] Name, MD Gregg [address] [place] [address] 09/21/2024 8:00 AM EDT Office Visit [facility] [address] [place] [address] Faye Mi documented as of this encounter Visit Diagnoses Not on filedocumented in this encounter Additional Health Concerns Assessment Noted Time PHQ-9 Depression Total Score: 7 03/04/19 23 9:17 AM EST documented as of this encounter Care Teams Technical Operations Specialist Relationship Specialty Start Date End Date Name, MD Gregg [address] [place] [address] PCP - General Family Medicine 04/16/15 documented as of this encounter
--- OUTSIDE RECORDS SUMMARY | 2024-06-01 12:38 | XMS_ITS | Clinical Summary ---
Author Organization [employer] Address [address] [facility] 7t [place] [address] Care Team Providers Care Recreation Facility Manager Name Role Phone Name, Gregg DIAMOND Primary Care Provider [phone] Allergies Active Allergy Reactions Criticality Noted Date [...] 2 sprays each nostril bid prn rhinorrhea, montenegrin 15 mL 12/07/19 24 Active doxepin (SINEquan) [...] is already in the process of seeing [facility] Plan: Increase fluids, pain [...] range. Recent lab work not available contacted [facility] for results. Will renew medications [...] Type Department Care Team Description 05/25/2024 Telephone [facility] [address] [place] [address] Sweta Giraldo [place] Appointment Request 05/24/2024 Telephone [facility] [address] [facility] [place] [address] Gregg Gandhi MD Appointment Request 05/24/2024 Telephone [facility] [address] [place] [address] Gregg Gandhi MD 05/24/2024 Refill [facility] [address] [facility] [place] [address] Ban Granados FNP 05/23/2024 Telephone [facility] [address] [facility] [place] [address] Gregg Gandhi MD call back needed 05/23/2024 Telephone [facility] [address] [place] [address] Gregg Gandhi MD Speak to PCP 05/23/2024 Refill [facility] [address] [facility] [place] [address] Gregg Gandhi MD 05/22/2024 Patient Outreach [facility] [address] [place] [address] Gregg Gandhi MD Transition Of Care (Tcm) 05/22/[address] [address] Gregg Gandhi MD verbal order 05/18/[address] [address] Gregg Gandhi MD Nurse Triage 05/15/[address] [address] Gregg Gandhi MD Durable Medical Equipment; Call Back Request 05/12/2024 9:00 AM EDT Office Visit [facility] [address] [place] [address] Ayan Calvin, RAMIREZ 05/09/[address] [address] Natalie Nathan, BRIAN 05/08/2024 11:15 AM EDT Office Visit [address] [address] Gregg Gandhi MD Diverticulitis (Primary Dx); Left hip pain 05/08/[address] [address] Gregg Gandhi MD Class 1 obesity (Primary Dx) 05/08/2024 Travel 05/05/[address] [address] Gregg Gandhi MD Durable Medical Equipment 05/05/2024 Patient Outreach [address] [address] Gregg Gandhi MD Transition Of Care (Tcm) 05/04/[address] [address] Gregg Gandhi MD Nurse Triage 05/03/2024 2:15 PM EDT Telemedicine [address] [address] Gregg Gandhi MD Right knee pain, unspecified chronicity (Primary Dx); Osteoarthritis of right knee, unspecified osteoarthritis type; Obesity (BMI 30-39.9) 05/03/2024 Travel 05/03/2024 Telephone [facility] [address] [place] [address] Gregg Gandhi MD Return Call 05/03/2024 Refill [facility] [address] [place] [address] Leatha, Josselin, SPLUNK DEVELOPER Osteoporosis, unspecified osteoporosis type, unspecified pathological fracture presence 05/02/[address] [address] Gregg Gandhi MD ER Follow-up; Nurse Triage 05/01/2024 9:00 AM EDT Office Visit [facility] [address] [place] [address] Ayan Calvin, DMD 05/01/2024 Orders Only [facility] External Provider, [facility] 05/01/[address] [address] Gregg Gandhi MD Prior Authorization (Lidocaine ) 04/19/2024 Travel 04/19/[address] [address] Sweta Giraldo [place] Appointment Request 04/18/[address] [address] Gregg Gandhi MD Appointment Request 04/10/2024 2:00 PM EST Office Visit [facility] [address] [address] Sore throat (Primary Dx); Right ear pain 04/10/2024 10:30 AM EST Office Visit [facility] [address] [place] [address] Ayan Calvin, DMD 04/10/[address] [address] Gregg Gandhi MD 03/29/[address] [address] Gregg Gandhi MD Durable Medical Equipment 03/22/[address] [address] Gregg Gandhi MD Medication Question 03/20/2024 Refill [facility] [address] [place] [address] Gregg Gandhi MD Osteoporosis, unspecified osteoporosis type, unspecified pathological fracture presence 03/14/2024 Refill [facility] [address] [place] [address] Name, MD Gregg Bariatric surgery status 03/10/2024 10:30 AM EST Office Visit [facility] [address] [place] [address] Ayan Calvin, DMD 03/08/2024 9:00 AM EST Office Visit [facility] [address] [place] [address] Name, MD Gregg Obesity (BMI 30-39.9) (Primary Dx); Chronic pain of right knee; Primary osteoarthritis of right knee; Spondylosis of lumbar region without myelopathy or radiculopathy 03/08/2024 Telephone [facility] [address] [place] [address] Name, MD Gregg Durable Medical Equipment from [...] Description 07/06/2024 9:00 AM EDT Office Visit [facility] [address] [place], [place] [phone] Ayan Calvin, RAMIREZ [address] [place] [address] 07/17/2024 11:30 AM EDT Office Visit [facility] [address] [place], [place] [phone] Name, MD Gregg [address] [place], [place] [phone] 09/21/2024 8:00 AM EDT Office Visit [facility] [address] [place], [place] [phone] Faye Mi Health Maintenance Due Date Last [...] Procedure Name Priority Date/Time Associated Diagnosis Comments MR LUMBAR SPINE WO CONTRAST Routine 05/31/2024 4:40 PM EDT WAX TRY IN Routine 05/12/2024 9:00 AM [...] Recently Relevant to Health Maintenance Results * MR Lumbar Spine w/o Contrast (05/31/2024 4:40 PM EDT) Anatomical Region Laterality Modality Spine, L-spine Magnetic Resonan ce 05/31/2024 4:40 PM EDT Narrative 06/01/2024 8:01 AM EDT ? [facility] ?[address] ?[place] [address] ? Magnetic Resonance Report ? Signed ? Patient: Ayala,Mag ?MR#: [id number] ?? 4 ? : 1960 ?Acct:[id number] ? Age/Sex: 63 / F ?ADM Date: 04/16/25 ? Loc: HO.MRI ? Attending Dr: Dimitrios Tatum MD ? Ordering Physician: Dimitrios Tatum MD ?? Date of Service: 05/31/24 ?? Procedure(s): MR lumbar spine wo con ?? Accession Number(s): [id number] ? cc: Dimitrios Tatum MD; Name,Gregg DIAMOND ? EXAMINATION: ?? MR LUMBAR SPINE WITHOUT CONTRAST ? CLINICAL INFORMATION: ?? Sacroiliitis, not elsewhere classified. ? COMPARISON: ?? March 03, 2012. ? TECHNIQUE: ?? MRI of the lumbar spine was obtained using routine sequences without ?? contrast. ? FINDINGS: ?? Last rib-bearing vertebra labeled T12. ? No bone marrow STIR signal abnormality. ?? Multilevel marginal osteophyte formation and disc desiccation more ?? conspicuous at T11-12. ?? Focal hyperintense T2 signal in the posterior intervertebral disc L3-4 ?? and L4-5 S1 likely annular fissure. ?? There is a 1 mm anterolisthesis L3-4 and L1-2 levels. ?? Conus medullaris ends at inferior endplate of T12 with normal signal. ? T11-12: ?? No disc herniation. No neuroforamina stenosis. Facet joint and ?? ligamentum flavum hypertrophy. ? T12-L1: ?? Broad-based disc bulging. Facet joint hypertrophy. No compression upon ?? neural elements. ? L1-2: ?? Broad-based disc bulging. Facet joint and ligamentum flavum ?? hypertrophy. Reduced AP diameter of the thecal sac and the neural ?? foramina. No compression upon neural elements. ? L2-3: ?? Broad-based disc bulging. Facet joint and ligamentum flavum ?? hypertrophy. Reduced AP diameter of the thecal sac and the neural ?? foramina. No compression upon neural elements. ? L3-4: ?? Central broad-based disc herniation. Facet joint and ligamentum flavum ?? hypertrophy. Reduced AP diameter of the thecal sac encroaching the ?? neural elements. Bilateral neuroforamina narrowing without compressing ?? the exiting nerve roots. ? L4-5: ?? Broad-based disc bulging. Facet joint and ligamentum flavum ?? hypertrophy. Reduced AP diameter of the thecal sac encroaching the L5 ?? nerve root on the lateral recesses. Bilateral neuroforamina narrowing ?? encroaching the L4 exiting nerve roots. ? L5-S1: ?? Broad-based disc bulging. Focal hyperintense T2 signal in the posterior ?? right disc. Reduced AP diameter of the thecal sac encroaching the S1 ?? nerve roots. No neuroforamina stenosis. ? No prevertebral compartment hematoma, mass or fluid collection. ?? Multifocal hyperintense T2 cystic lesions in the parapelvic kidneys, ?? bilaterally. ? MR/MR lumbar spine wo con ?? IMPRESSION: ?? Multilevel thoracolumbar spondylosis more conspicuous at L3-4 and L4-5 ?? and L5-S1 levels resulting in central spinal canal stenosis encroaching ?? the nerve roots on the lateral recesses. ?? Parapelvic renal cysts, bilaterally. ? Electronically signed by: ??Brennon Carrillo MD ??06/01/2024 07:58 AM ?? EDT RP ? Dictated By: ?Brennon Tejeda MD ? Signed By: ?<Electronically signed by Brennon Smith MD in OV> ? 06/01/24 0758 ? DD/ 1640 ? TD/TT: 05/31/24 1655 ? It Program Auditor: ? Procedure Note Laron, Starla - 06/01/2024 [place] [address] Magnetic Resonance Report Signed Patient: Eulalia Ayala#: [id number] 4 : 9Acct:[id number] Age/Sex: 63 / FADM Date: 05/31/24 Loc: HO.MRI Attending Dr: Dimitrios Tatum MD Ordering Physician: Dimitrios Tatum MD Date of Service: 05/31/24 Procedure(s): MR lumbar spine wo con Accession Number(s): [id number] cc: Dimitrios Tatum MD; Name,Gregg DIAMOND EXAMINATION: MR LUMBAR SPINE WITHOUT CONTRAST CLINICAL INFORMATION: Sacroiliitis, not elsewhere classified. COMPARISON: March 03, 2012. TECHNIQUE: MRI of the lumbar spine was obtained using routine sequences without contrast. FINDINGS: Last rib-bearing vertebra labeled T12. No bone marrow STIR signal abnormality. Multilevel marginal osteophyte formation and disc desiccation more conspicuous at T11-12. Focal hyperintense T2 signal in the posterior intervertebral disc L3-4 and L4-5 S1 likely annular fissure. There is a 1 mm anterolisthesis L3-4 and L1-2 levels. Conus medullaris ends at inferior endplate of T12 with normal signal. T11-12: No disc herniation. No neuroforamina stenosis. Facet joint and ligamentum flavum hypertrophy. T12-L1: Broad-based disc bulging. Facet joint hypertrophy. No compression upon neural elements. L1-2: Broad-based disc bulging. Facet joint and ligamentum flavum hypertrophy. Reduced AP diameter of the thecal sac and the neural foramina. No compression upon neural elements. L2-3: Broad-based disc bulging. Facet joint and ligamentum flavum hypertrophy. Reduced AP diameter of the thecal sac and the neural foramina. No compression upon neural elements. L3-4: Central broad-based disc herniation. Facet joint and ligamentum flavum hypertrophy. Reduced AP diameter of the thecal sac encroaching the neural elements. Bilateral neuroforamina narrowing without compressing the exiting nerve roots. L4-5: Broad-based disc bulging. Facet joint and ligamentum flavum hypertrophy. Reduced AP diameter of the thecal sac encroaching the L5 nerve root on the lateral recesses. Bilateral neuroforamina narrowing encroaching the L4 exiting nerve roots. L5-S1: Broad-based disc bulging. Focal hyperintense T2 signal in the posterior right disc. Reduced AP diameter of the thecal sac encroaching the S1 nerve roots. No neuroforamina stenosis. No prevertebral compartment hematoma, mass or fluid collection. Multifocal hyperintense T2 cystic lesions in the parapelvic kidneys, bilaterally. MR/MR lumbar spine wo con IMPRESSION: Multilevel thoracolumbar spondylosis more conspicuous at L3-4 and L4-5 and L5-S1 levels resulting in central spinal canal stenosis encroaching the nerve roots on the lateral recesses. Parapelvic renal cysts, bilaterally. Electronically signed by: Brennon Carrillo MD 06/01/2024 07:58 AM EDT Dictated By: Brennon Tejeda MD Signed By: <Electronically signed by Brennon Smith MDin OV> 06/01/24 0758 DD/ 1640 TD/TT: 05/31/24 1655 It Program Auditor: [facility] External Provider IMG MRI PROCEDURES Final Result * CT Abdomen Pelvis w/o Contrast (05/04/2024 10:09 PM EDT) Anatomical Region Laterality Modality Body, Pelvis, Abdomen Computed T omography 05/04/2024 10:0 9 PM EDT Narrative 05/04/2024 10:11 PM EDT ? [facility] ?[address] ?[place] [address] ? CT Scan Report ? Signed ? Patient: Ayala,Mag ?MR#: [id number] ?? 4 ? : 1960 ?Acct:[id number] ? Age/Sex: 63 / F ?ADM Date: 05/04/24 ? Loc: HO.ED ? Attending Dr: ? Ordering Physician: Mitch Roberts MD ?? Date of Service: 05/04/24 ?? Procedure(s): CT abdomen pelvis wo IV con ?? Accession Number(s): [id number] ? cc: Gregg Gandhi MD; Mitch Roberts MD ? Report Number: ?? [id number]: Total DLP = ??608.00 mGy-cm ? CLINICAL [...] osteoarthritis both ?? hips. Degenerative changes include wjhxcqmp-zh-riuwie facet arthropathy, ?? particularly in the lower [...] ? DD/ 08 ? TD/TT: 05/04/242208 ? It Program Auditor: ? Procedure Note Donotheribertointerpreter, Image - 05/04/[address] [place] [address] [address] Scan Report Signed Patient: Eulalia Ayala#: [id number] 4 : 1960cct:[id number] Age/Sex: 63 / FADM Date: 05/04/24 Loc: HO.ED Attending Dr: Ordering Physician: Mitch Roberts MD Date of Service: 05/04/24 Procedure(s): CT abdomen pelvis wo IV con Accession Number(s): [id number] cc: Gregg Gandhi MD; Mitch Roberts MD Report Number: [id number]: Total DLP = 608.00 mGy-cm CLINICAL HISTORY: [...] moderate osteoarthritis both hips. Degenerative changes include llblsngt-rq-auvkca facet arthropathy, particularly in the lower lumbar [...] in OV> 05/04/242209 DD/ 08 TD/TT: 05/04/242208 It Program Auditor: [facility] External Provider IMG CT PROCEDURES Final Result * US VENOUS DUPLEX LE RT (05/02/2024 12:41 AM EDT) Anatomical Region Laterality Modality Abdomen Ultrasound 05/02/2024 12:4 1 AM EDT Narrative 05/02/2024 12:44 AM EDT ? [facility] ?[address] ?[place] [address] ? Ultrasound Report ? Signed ? Patient: Mag Ayala ?MR#: [id number] ?? 4 ? : 1960 ?Acct:[id number] ? Age/Sex: 63 / F ?ADM Date: 05/01/24 ? Loc: HO.ED ? Attending Dr: ? Ordering Physician: Stephen Sexton MD ?? Date of Service: 05/01/24 ?? Procedure(s): US venous duplex LE RT ?? Accession Number(s): [id number] ? cc: Stephen Sexton MD; Name,Gregg DIAMOND [...] by Harsha Guzmán MD in OV> ? 05/02/2441 ? DD/ 004 ? TD/TT: 05/02/24 0041 ? It Program Auditor: ? Procedure Note Donotuseinterpreter, Image - 05/02/[address] [address] Ultrasound Report Signed Patient: Eulalia Ayala#: [id number] 4 : 9Acct:[id number] Age/Sex: 63 / FADM Date: 05/01/24 Loc: .ED Attending Dr: Ordering Physician: Stephen Sexton MD Date of Service: 05/01/24 Procedure(s): US venous duplex LE RT Accession Number(s): [id number] cc: Stephen Sexton MD; Name,Gregg DIAMOND CLINICAL [...] MD in OV> 05/02/2441 DD/ TD/TT: 05/02/2440 It Program Auditor: us [facility] External Provider IMG US PROCEDURES Edited Result - Final * XR Hip left with Pelvis 1 view (05/02/2024 12:09 AM EDT) Anatomical Region Laterality Modality Lower Extremities, Hip Bilateral Radiograp hic Imaging 05/02/2024 12:0 9 AM EDT Narrative 05/02/2024 12:12 AM EDT ? [facility] ?[address] ?[place] [address] ?XRay Report ? Signed ? Patient: Ayala,Mag ?MR#: [id number] ?? 4 ? : 1960 ?Acct:[id number] ? Age/Sex: 63 / F ?ADM Date: 05/01/24 ? Loc: HO.ED ? Attending Dr: ? Ordering Physician: Stephen Sexton MD ?? Date of Service: 05/01/24 ?? Procedure(s): XR hip LT w PEL1V ?? Accession Number(s): [id number] ? cc: Stephen Sexton MD; Name,Gregg DIAMOND [...] DD/ 0009 ? TD/TT: 05/02/24 0009 ? It Program Auditor: ? Procedure Note Laron, Starla - 05/02/2024 [place] [address] XRay Report Signed Patient: Eulalia Ayala#: [id number] 4 : 9Acct:[id number] Age/Sex: 63 / FADM Date: 05/01/24 Loc: HO.ED Attending Dr: Ordering Physician: Stephen Sexton MD Date of Service: 05/01/24 Procedure(s): XR hip LT w PEL1V Accession Number(s): [id number] cc: Stephen Sexton MD; Name,Gregg DIAMOND CLINICAL [...] in OV> 05/02/24 0011 DD/ TD/TT: 05/02/248 It Program Auditor: [facility] External Provider IMG XR PROCEDURES Edited Result - Final * (ABNORMAL) POCT rapid strep A manually resulted (04/10/2024 1:59 PM EST) Rapid Strep A Screen Positive( A) Negative, None Detected Swab 04/10/2024 1:59 PM EST Joann Angel RAILWAY SIGNAL OPERATOR POINT OF CARE TEST ENTER/EDIT O RDERABLES Final Result * BI Mammogram Screening Tomosynthesis Bilateral (04/20/2023 12:05 PM EST) Anatomical Region Laterality Modality Breast Bilateral Mammography 04/20/2023 12:0 5 PM EST Narrative 05/05/2023 8:29 AM EDT ? [facility] ? [address] ?[place] [address] ? Mammography Report ? Signed ? Patient: Ayala,Mag ?MR#: [id number] ?? 4 ? : 1960 ?Acct:[id number] ? Age/Sex: 62 / F ?ADM Date: 03/05/24 ? Loc: HO.MAMMO ? Attending Dr: Gregg Name MD ? Ordering Physician: Name,Gregg MD ?Results: 1Negative ? Date of Service: 04/20/23 ?Follow Up: 1 Year From Orig ?? inal Mammogram ? Procedure(s): MM tomosynthesis screening BI ?? Accession Number(s): [id number] ? cc: Name,Gregg DIAMOND ? EXAMINATION: ?? [...] Carrington MD in OV> ?05/05/23824 ? DD/ 04 ? TD/TT: ? It Program Auditor: ? Procedure Note Laron, Image - 05/05/2023 [facility] [address] [place], [place] [address] Mammography Report Signed Patient: Eulalia Ayala#: [id number] 4 : 9Acct:[id number] Age/Sex: 62 / FADM Date: 04/20/23 Loc: HO.MAMMO Attending Dr: Gregg Gandhi MD Ordering Physician: Gregg Gandhi MDResults: 1Negative Date of Service: 04/20/23Follow Up: 1 Year From Orig inal Mammogram Procedure(s): MM tomosynthesis screening BI Accession Number(s): [id number] cc: Gregg Gandhi MD EXAMINATION: MM SCREENING [...] in OV> 05/05/23 0825 DD/ 1205 TD/TT: It Program Auditor: Gregg Gandhi MD IMG BI PROCEDURES Final Result * Hm Colonoscopy (08/08/2020 1:49 PM EDT) Colonoscopy Normal Normal Narrative Jania, Anastasia - 08/08/2020 1:49 PM EDT Recommended 5 [...] ?? Darek MADISON et al. BOO. 2013;310(19): 3892-9027 ?? (http://education.[employer].GroundLink/faq/VTR981) Non-HDL Cholesterol 125 <130 mg/dL (calc) [facility] Comment: For patients with diabetes plus 1 major ASCVD risk ?? factor, treating to a non-HDL-C goal of <100 mg/dL ?? (LDL-C of <70 mg/dL) is considered a therapeutic ?? option. Triglycerides 80 <150 mg/dL [facility] 05/20/2020 9:32 AM EDT us rGegg Gandhi MD LAB BLOOD ORDERABLES Final Resul t [facility] [address] from Last 3 Months or Most Recently Relevant to Health Maintenance Insurance [facility] [place] Plan / Payer (Ef fective 2023-Present) Name:Mag Ayala Relation to Subscriber:Self Name:Mag Ayala Payer ID:Not on file Group ID:[id number] Type:Not on file Address: [address] [place] [address] [address] [facility] [address] [place] [address] [address] [place] [address] [address] [place] [address] Care Teams Recreation Facility Manager Relationship Specialty Start Date End Date Name, MD Gregg [address] [place] [address] PCP - General Family Medicine 04/16/15
--- OUTSIDE RECORDS SUMMARY | 2024-06-01 12:38 | XMS_ITS | Encounter Summary ---
Author Organization [facility] Address [address] [facility] 7t [place] [address] Care Team Providers Care Scow Derrick Operator Name Role Phone Name, Gregg DIAMOND Primary Care Provider [phone] Encounter Details Date Type Department Care Team (Latest Contact Info) Description 12/25/2019 Abstract [facility] CONVERSIONS Dental, Provider, DDS Social History [...] Office Visit [facility] ADULT DENTAL [address] [place] [address] Ayan Calvin DMD [address] [place] [address] 07/17/2024 11:30 AM EDT Office Visit [facility] MEDICINE [address] [place] [address] Name, MD Gregg [address] [place] [address] 09/21/2024 8:00 AM EDT Office Visit [facility] [address] [place] [address] Faye Mi documented as of this encounter Visit Diagnoses Not on filedocumented in this encounter Care Teams Scow Derrick Operator Relationship Specialty Start Date End Date Name, MD Gregg [address] [place] [address] PCP - General Family Medicine 04/16/15 documented as of this encounter
--- OUTSIDE RECORDS SUMMARY | 2024-06-01 12:38 | XMS_ITS | Encounter Summary ---
Author Organization [facility] Address [address] [facility] 7t [place] [address] Care Team Providers Care Veterinary Inspector Name Role Phone Name, Gregg DIAMOND Primary Care Provider [phone] Reason for Visit * Reason Comments Med Refill Encounter Details Date Type Department Care Team ( Contact Info) Description 10/06/2022 Refill [facility] MEDICINE [address] [place], [place] [phone] Name, MD Gregg [address] [place] [address] Osteoporosis, unspecified osteoporosis type, unspecified pathological fracture [...] 9:00 AM EDT Office Visit [facility] ADULT DENTAL [address] [place], [place] [phone] Ayan Calvin, RAMIREZ [address] [place], [place] [phone] 07/17/2024 11:30 AM EDT Office Visit [facility] MEDICINE [address] [place] [address] Name, MD Gregg [address] [place] [address] 09/21/2024 8:00 AM EDT Office Visit [facility] ADULT DENTAL [address] [place] [address] Faye Mi documented as of this encounter Visit Diagnoses Diagnosis Osteoporosis, unspecified osteoporosis type, unspecified pathological fracture presence documented in this encounter Additional Health Concerns Assessment Noted Time PHQ-9 Depression Total Score: 7 03/04/19 23 9:17 AM EST documented as of this encounter Care Teams Veterinary Inspector Relationship Specialty Start Date End Date Name, MD Gregg [address] [place] [address] PCP - General Family Medicine 04/16/15 documented as of this encounter
--- OUTSIDE RECORDS SUMMARY | 2024-06-01 12:38 | XMS_ITS | Encounter Summary ---
Author Organization [facility] Address [address] [facility] 7t [place] [address] Care Team Providers Care Classification Control Clerk Name Role Phone Name, Gregg DIAMOND Primary Care Provider [phone] Reason for Visit * Reason Comments Med Refill Encounter Details Date Type Department Care Team ( Contact Info) Description 10/14/2022 Refill [facility] MEDICINE [address] [place], [place] [phone] Name, MD Gregg [address] [place] [address] Osteoporosis, unspecified osteoporosis type, unspecified pathological fracture [...] 07/06/2024 9:00 AM EDT Office Visit [facility] ADULT DENTAL [address] [place], [place] [phone] Ayan Calvin, RAMIREZ [address] [place], [place] [phone] 07/17/2024 11:30 AM EDT Office Visit [facility] MEDICINE [address] [place] [address] Name, MD Gregg [address] [place] [address] 09/21/2024 8:00 AM EDT Office Visit [facility] ADULT DENTAL [address] [place] [address] Faye Mi documented as of this encounter Visit Diagnoses Diagnosis Osteoporosis, unspecified osteoporosis type, unspecified pathological fracture presence documented in this encounter Additional Health Concerns Assessment Noted Time PHQ-9 Depression Total Score: 7 03/04/19 23 9:17 AM EST documented as of this encounter Care Teams Classification Control Clerk Relationship Specialty Start Date End Date Name, MD Gregg [address] [place] [address] PCP - General Family Medicine 04/16/15 documented as of this encounter
--- OUTSIDE RECORDS SUMMARY | 2024-06-01 12:38 | XMS_ITS | Encounter Summary ---
Author Organization [employer] Address [address] [facility] 7t [place] [address] Care Team Providers Care Home Agent Name Role Phone Name, Gregg DIMAOND Primary Care Provider [phone] Reason for Visit * Reason Comments Med Refill Encounter Details Date Type Department Care Team (Late Contact Info) Description 03/04/2022 Refill [facility] MEDICINE [address] [place] [address] Name, MD Gregg [address] [place] [address] Osteoporosis, unspecified osteoporosis type, unspecified pathological fracture [...] Visit [facility] ADULT DENTAL [address] [place] [address] Ayan Calvin, RAMIREZ [address] [place] [address] 07/17/2024 11:30 AM EDT Office Visit [facility] [address] [place] [address] Name, MD Gregg [address] [place] [address] 09/21/2024 8:00 AM EDT Office Visit [facility] ADULT D[facility] [address] [place] [address] Faye Mi documented as of this encounter Visit Diagnoses Diagnosis Osteoporosis, unspecified osteoporosis type, unspecified pathological fracture presence documented in this encounter Additional Health Concerns Assessment Noted Time PHQ-9 Depression Total Score: 7 03/04/19 23 9:17 AM EST documented as of this encounter Care Teams Home Agent Relationship Specialty Start Date End Date Name, MD Gregg [address] [place] [address] PCP - General Family Medicine 04/16/15 documented as of this encounter
--- OUTSIDE RECORDS SUMMARY | 2024-06-01 12:38 | XMS_ITS | Encounter Summary ---
Author Organization [employer] [facility] Address [address] [facility] 7t [place] [address] Care Team Providers Care Lot Worker Name Role Phone Name, Gregg DIAMOND Primary Care Provider [phone] Encounter Details Date Type Department Care Team (Latest Contact Info) Description 09/27/[address] [facility] CONVERSIONS Dental, Provider, DDS Social [...] 9:00 AM EDT Office Visit [facility] ADULT DENTAL [address] [place] [address] Ayan Calvin DMD [address] [place] [address] 07/17/2024 11:30 AM EDT Office Visit [facility] MEDICINE [address] [place] [address] Name, MD Gregg [address] [place] [address] 09/21/2024 8:00 AM EDT Office Visit [facility] ADULT DENTAL [address] [place] [address] Faye Mi documented as of this encounter Visit Diagnoses Not on filedocumented in this encounter Care Teams Lot Worker Relationship Specialty Start Date End Date Name, MD Gregg [address] [place] [address] PCP - General Family Medicine 04/16/15 documented as of this encounter
== END 2024-06-01 11:26 | disposition home or self-care (01) ==
LOC: HO.HOS 10:30
PROVIDERS: PCP Internal Medicine Geriatric Medicine; Visit Provider Physician Assistant
DX: M17.0 Bilateral primary osteoarthritis of knee (principal)
CPT/HCPCS: 20610

== ENCOUNTER → 2024-06-01 10:30 | Outpatient (BNVA) | payer OTHER, SELFPAY | PROVIDERS: PCP Internal Medicine Geriatric Medicine; Visit Provider Physician Assistant | DX: M17.0 Bilateral primary osteoarthritis of knee (principal) | CPT/HCPCS: 20610; J7323 ==

== ENCOUNTER 2024-06-07 09:26 | Outpatient (REF) | payer OTHER, SELFPAY ==
--- NOTE | ~2024-06-07 | XR_ITS ---
CLINICAL HISTORY: M16.0 - Bilateral primary osteoarthritis of hip Two views of each hip Comparison: None Findings: The bones are intact. Xeub-lo-dssnhpjg degenerative changes at both femoral-acetabular joints. The soft tissues are unremarkable. IMPRESSION: No acute findings. Anac-ns-vdlttkie degenerative changes bilaterally. This document has been electronically signed by: Ciaran Antonio MD on 06/08/2024 21:13:06
--- OUTSIDE RECORDS SUMMARY | 2024-06-07 12:39 | XMS_ITS | Clinical Summary ---
Author Organization [employer] Address [address] [facility] 7t [place] [address] Care Team Providers Care Headlight Assembler Name Role Phone Name, Gregg DIAMOND Primary Care Provider [phone] Allergies Active Allergy Reactions Criticality Noted Date [...] 2 sprays each nostril bid prn rhinorrhea, sudanese 15 mL 12/07/19 24 Active doxepin (SINEquan) [...] is already in the process of seeing [facility] Plan: Increase fluids, pain [...] range. Recent lab work not available contacted [facility] for results. Will renew medications at [...] Encounters Date Type Department Care Team Description 06/07/2024 Refill [facility] MEDICINE [address] [place] [address]12 Gregg Gandhi MD 06/02/2024 Telephone [facility] MEDICINE [address] [place] [address] 22248 Gregg Gandhi MD Durable Medical Equipment 06/02/2024 Telephone [facility] MEDICINE [address] [place] [address] 24390 Gregg Gandhi MD Med Refill 05/25/2024 Telephone [facility] MEDICINE [address] [place] [address] 78195 Sweta Giraldo MA Appointment Request 05/24/2024 Telephone [facility] MEDICINE [address] [place] [address] 77990 Gregg Gandhi MD Appointment Request 05/24/2024 Telephone [facility] MEDICINE [address] [place] [address] 18224 Gregg Gandhi MD 05/24/2024 Refill [facility] MEDICINE [address] [place] [address] 21798 Ban Granados FNP 05/23/2024 Telephone [facility] MEDICINE [address] [place] [address] 02901 Gregg Gandhi MD call back needed 05/23/2024 Telephone [facility] MED[facility]INE [address] [place] [address] [phone] Gregg Gandhi MD Speak to PCP 05/23/2024 Refill [facility] MEDICINE [address] [place] [address] 36159 Gregg Gandhi MD 05/22/2024 Patient Outreach [address] [address] Gregg Gandhi MD Transition Of Care (Tcm) 05/22/[address] [address] Gregg Gandhi MD verbal order 05/18/[address] [address] Gregg Gandhi MD Nurse Triage 05/15/[address] [address] Gregg Gandhi MD Durable Medical Equipment; Call Back Request 05/12/2024 9:00 AM EDT Office Visit [facility] ADULT DENTAL [address] [place] [address] 23918 Ayan Calvin, RAMIREZ 05/09/[address] [address] Natalie Nathan, BRIAN 05/08/2024 11:15 AM EDT Office Visit [address] [address] Gregg Gandhi MD Diverticulitis (Primary Dx); Left hip pain 05/08/[address] [address] Gregg Gandhi MD Class 1 obesity (Primary Dx) 05/08/2024 Travel 05/05/[address] 8[address] Gregg Gandhi MD Durable Medical Equipment 05/05/2024 Patient Outreach [address] [address] Gregg Gandhi MD Transition Of Care (Tcm) 05/04/[address] [address] Gregg Gandhi MD Nurse Triage 05/03/2024 2:15 PM EDT Telemedicine [address] [address] Gregg Gandhi MD Right knee pain, unspecified chronicity (Primary Dx); Osteoarthritis of right knee, unspecified osteoarthritis type; Obesity (BMI 30-39.9) 05/03/2024 Travel 05/03/2024 Telephone [facility] PEDIATRICS [address] [place] [address] 49922 Gregg Gandhi MD Return Call 05/03/2024 Refill [facility] MEDICINE [address] [place] [address] [place], [place], [employer] FIN[employer] Osteoporosis, unspecified osteoporosis type, unspecified pathological fracture presence 05/02/[address] [address] Gregg Gandhi MD ER Follow-up; Nurse Triage 05/01/2024 9:00 AM EDT Office Visit [facility] ADULT DENTAL [address] [place] [address] 98865 Ayan Calvin, DMD 05/01/2024 Orders Only [facility] External Provider, [facility] 05/01/[address] [address] Gregg Gandhi MD Prior Authorization (Lidocaine ) 04/19/2024 Travel 04/19/[address] [address] Sweta Giraldo [place] Appointment Request 04/18/[address] [address] Gregg Gandhi MD Appointment Request 04/10/2024 2:00 PM EST Office Visit [facility] WALK[facility]IN CENTER [address] [place] [address] 27752 Sore throat (Primary Dx); Right ear pain 04/10/2024 10:30 AM EST Office Visit [facility] ADULT DENTAL [address] [place] [address] 78986 Ayan Calvin, DMD 04/10/[address] [address] Gregg Gandhi MD 03/29/[address] [address] Gregg Gandhi MD Durable Medical Equipment 03/22/2024 Telephone [facility] MEDICINE [address] [place] [address] Name, MD Gregg Medication Question 03/20/2024 Refill [facility] MEDICINE [address] [place] [address] NameGregg MD Osteoporosis, unspecified osteoporosis type, unspecified pathological fracture presence 03/14/2024 Refill [facility] MEDICINE [address] [place] [address] Name, MD Gregg Bariatric surgery status 03/10/2024 10:30 AM EST Office Visit [facility] ADULT DENTAL [address] [place] [address] Ayan Calvin DMD from Last 3 Months [...] Description 07/06/2024 9:00 AM EDT Office Visit [facility] ADULT DENTAL [address] [place], [place] [phone] Ayan Calvin DMD [address] [place] [address] 07/17/2024 11:30 AM EDT Office Visit [facility] MEDICINE [address] [place], [place] [phone] Name, MD Gregg [address] [place], [place] [phone] 09/21/2024 8:00 AM EDT Office Visit [facility] ADULT DENTAL [address] [place] [address] Faye Mi Health Maintenance Due Date Last [...] EDT Narrative 06/01/2024 8:01 AM EDT ? [facility] ?[address] ?[place] [address] ? Magnetic Resonance Report ? Signed ? Patient: Ayala,Mag ?MR#: [id number] ?? 4 ? : 1960 ?Acct:[id number] ? Age/Sex: 63 / F ?ADM Date: 04/16/25 ? Loc: HO.MRI ? Attending Dr: Dimitrios Tatum MD ? Ordering Physician: Dimitrios Tatum MD ?? Date of Service: 05/31/24 ?? Procedure(s): MR lumbar spine wo con ?? Accession Number(s): [id number] ? cc: Dimitrios Tatum MD; Name,Gregg DIAMOND [...] DD/ 1640 ? TD/TT: 05/31/24 1655 ? Supervisor Maintenance And Custodians: ? Procedure Note Donteodorainterpreter, Image - 06/01/2024 [place] [address] Magnetic Resonance Report Signed Patient: Eulalia Ayala#: [id number] 4 : 9Acct:[id number] Age/Sex: 63 / FADM Date: 05/31/24 Loc: HO.MRI Attending Dr: Dimitrios Tatum MD Ordering Physician: Dimitrios Tatum MD Date of Service: 05/31/24 Procedure(s): MR lumbar spine wo con Accession Number(s): [id number] cc: Dimitrios Tatum MD; Name,Gregg DIAMOND EXAMINATION: [...] 06/01/24 0758 DD/ 1640 TD/TT: 05/31/24 1655 Supervisor Maintenance And Custodians: [facility] External Provider IMG MRI PROCEDURES Final Result * CT Abdomen Pelvis w/o Contrast (05/04/2024 10:09 PM EDT) Anatomical Region Laterality Modality Body, Pelvis, Abdomen Computed T omography 05/04/2024 10:0 9 PM EDT Narrative 05/04/2024 10:11 PM EDT ? [facility] ?[address] ?[place], [place] [address] ? CT Scan Report ? Signed ? Patient: JamieMag ?MR#: [id number] ?? 4 ? : 1960 ?Acct:[id number] ? Age/Sex: 63 / F ?ADM Date: 05/04/24 ? Loc: HO.ED ? Attending Dr: ? Ordering Physician: Mitch Roberts MD ?? Date of Service: 05/04/24 ?? Procedure(s): CT abdomen pelvis wo IV con ?? Accession Number(s): [id number] ? cc: Gregg Gandhi MD; Mitch Roberts MD ? Report Number: ?? [id number]: Total DLP = ??608.00 mGy-cm ? CLINICAL [...] osteoarthritis both ?? hips. Degenerative changes include uajiynkz-ze-jmpdhr facet arthropathy, ?? particularly in the lower [...] DD/ 08 ? TD/TT: 05/04/242208 ? Supervisor Maintenance And Custodians: ? Procedure Note Laron, Starla - 05/04/[address] [place] [address] [address] Scan Report Signed Patient: Eulalia Ayala#: [id number] 4 : 9Acct:[id number] Age/Sex: 63 / FADM Date: 05/04/24 Loc: HO.ED Attending Dr: Ordering Physician: Mitch Roberts MD Date of Service: 05/04/24 Procedure(s): CT abdomen pelvis wo IV con Accession Number(s): [id number] cc: Gregg Gandhi MD; Mitch Roberts MD Report Number: [id number]: Total DLP = 608.00 mGy-cm CLINICAL HISTORY: [...] moderate osteoarthritis both hips. Degenerative changes include xcrpfbyy-cz-etzkdb facet arthropathy, particularly in the lower lumbar [...] OV> 05/04/242209 DD/ 08 TD/TT: 05/04/242208 Supervisor Maintenance And Custodians: [facility] External Provider IMG CT PROCEDURES Final Result * US VENOUS DUPLEX LE RT (05/02/2024 12:41 AM EDT) Anatomical Region Laterality Modality Abdomen Ultrasound 05/02/2024 12:4 1 AM EDT Narrative 05/02/2024 12:44 AM EDT ? [facility] ?[address] ?[place] [address] ? Ultrasound Report ? Signed ? Patient: Mag Aayla ?MR#: [id number] ?? 4 ? : 1960 ?Acct:[id number] ? Age/Sex: 63 / F ?ADM Date: 05/01/24 ? Loc: HO.ED ? Attending Dr: ? Ordering Physician: Stephen Sexton MD ?? Date of Service: 05/01/24 ?? Procedure(s): US venous duplex LE RT ?? Accession Number(s): [id number] ? cc: Stephen Sexton MD; Gregg Gandhi MD ? CLINICAL HISTORY: atraumatic right leg knee [...] MD in OV> ? 05/02/2441 ? DD/ ? TD/TT: 03/18/25 0041 ? Supervisor Maintenance And Custodians: ? Procedure Note Donotheribertointerpreter, Image - 05/02/2024 [place] [address] Ultrasound Report Signed Patient: Eulalia Ayala#: [id number] 4 : 9Acct:[id number] Age/Sex: 63 / FADM Date: 05/01/24 Loc: HO.ED Attending Dr: Ordering Physician: Stephen Sexton MD Date of Service: 05/01/24 Procedure(s): US venous duplex LE RT Accession Number(s): [id number] cc: Stephen Sexton MD; Name,Gregg DIAMOND CLINICAL [...] 05/02/24 0042 DD/ 0041 TD/TT: 05/02/24 0041 Supervisor Maintenance And Custodians: us [facility] External Provider IMG US PROCEDURES Edited Result - Final * XR Hip left with Pelvis 1 view (05/02/2024 12:09 AM EDT) Anatomical Region Laterality Modality Lower Extremities, Hip Bilateral Radiograp hic Imaging 05/02/2024 12:0 9 AM EDT Narrative 05/02/2024 12:12 AM EDT ? [facility] ?[address] ?[place] [address] ?XRay Report ? Signed ? Patient: Ayala,Mag ?MR#: [id number] ?? 4 ? : 1960 ?Acct:[id number] ? Age/Sex: 63 / F ?ADM Date: 05/01/24 ? Loc: HO.ED ? Attending Dr: ? Ordering Physician: Stephen Sexton MD ?? Date of Service: 05/01/24 ?? Procedure(s): XR hip LT w PEL1V ?? Accession Number(s): [id number] ? cc: Stephen Sexton MD; Name,Gregg DIAMOND [...] DD/ 0009 ? TD/TT: 05/02/24 0009 ? Supervisor Maintenance And Custodians: ? Procedure Note Emoryter, Image - 05/02/[address] [address] XRay Report Signed Patient: Eulalia Ayala#: [id number] 4 : 9Acct:[id number] Age/Sex: 63 / FADM Date: 05/01/24 Loc: HO.ED Attending Dr: Ordering Physician: Stephen Sexton MD Date of Service: 05/01/24 Procedure(s): XR hip LT w PEL1V Accession Number(s): [id number] cc: Stephen Sexton MD; Name,Gregg DIAMOND CLINICAL [...] OV> 05/02/24 0011 DD/ 0009 TD/TT: 05/02/248 Supervisor Maintenance And Custodians: [facility] External Provider IMG XR PROCEDURES Edited Result - Final * (ABNORMAL) POCT rapid strep A manually resulted (04/10/2024 1:59 PM EST) Rapid Strep A Screen Positive( A) Negative, None Detected Swab 04/10/2024 1:59 PM EST Joann Angel MANAGING PARTNER POINT OF CARE TEST ENTER/EDIT O RDERABLES Final Result * BI Mammogram Screening Tomosynthesis Bilateral (04/20/2023 12:05 PM EST) Anatomical Region Laterality Modality Breast Bilateral Mammography 04/20/2023 12:0 5 PM EST Narrative 05/05/2023 8:29 AM EDT ? [facility] ? [address] ?[place] [address] ? Mammography Report ? Signed ? Patient: AyalaMag shelley ?MR#: [id number] ?? 4 ? : 1960 ?Acct:[id number] ? Age/Sex: 62 / F ?ADM Date: //24 ? Loc: HO.MAMMO ? Attending Dr: Gregg Name MD ? Ordering Physician: Name,Gregg DIAMOND ?Results: 1Negative ? Date of Service: //24 ?Follow Up: 1 Year From Orig ?? inal Mammogram ? Procedure(s): MM tomosynthesis screening BI ?? Accession Number(s): [id number] ? cc: Name,Gregg DIAMOND ? EXAMINATION: ?? [...] Carrington MD in OV> ?05/05/23824 ? DD/ ? TD/TT: ? Supervisor Maintenance And Custodians: ? Procedure Note Laron, Image - 05/05/2023 [facility] [address] [place] [address] [place] [address] Mammography Report Signed Patient: Eulalia Ayala#: [id number] 4 : 9Acct:[id number] Age/Sex: 62 / FADM Date: 04/20/23 Loc: HO.MAMMO Attending Dr: Gregg Gandhi MD Ordering Physician: Gregg Gandhiesults: 1Negative Date of Service: 04/20/23Follow Up: 1 Year From Orig ina Mammogram Procedure(s): MM tomosynthesis screening BI Accession Number(s): [id number] cc: Gregg Gandhi MD EXAMINATION: MM SCREENING [...] OV> 05/05/23 0825 DD/ 1205 TD/TT: Supervisor Maintenance And Custodians: Gregg Gandhi MD IMG BI PROCEDURES Final Result * Hm Colonoscopy (08/08/2020 1:49 PM EDT) Colonoscopy Normal Normal Narrative Anastasia Dykes - 08/08/2020 1:49 PM EDT Recommended 5 year follow up us Historical Provider HEALTH MAINTENANCE Final Result * [...] ?? Darek MADISON et al. BOO. 2013;310(19): 1072-1230 ?? (http://education.[employer]/faq/ARV541) Non-HDL Cholesterol 125 <130 mg/dL (calc) [facility] Comment: For patients with diabetes plus 1 major ASCVD risk ?? factor, treating to a non-HDL-C goal of <100 mg/dL ?? (LDL-C of <70 mg/dL) is considered a therapeutic ?? option. Triglycerides 80 <150 mg/dL [facility] 05/20/2020 9:32 AM EDT us Gregg Gandhi MD LAB BLOOD ORDERABLES Final Resul t [facility] [address] from Last 3 Months or Most Recently Relevant to Health Maintenance Insurance [facility] [address] [place] [address] [phone] [place] [address] [place] [address] Care Teams Headlight Assembler Relationship Specialty Start Date End Date Name, MD Gregg [address] [place] [address] PCP - General Family Medicine 04/16/15 [facility] 05/23/24
--- OUTSIDE RECORDS SUMMARY | 2024-06-07 12:39 | XMS_ITS | Encounter Summary ---
Author Organization [employer] Address [address] 7[address] [place] [address] Care Team Providers Care Signal Maintainer Helper Name Role Phone Name, Gregg DIAMOND Primary Care Provider Encounter Details Date Type Department Care Team ([facility] st Contact Info) Description 05/24/2024 Telephone [facility] MEDICINE [address] [place], [place] [phone] Name, MD Gregg [address] [place] [address] Social History Tobacco Use Types Packs/Day Years [...] 9:00 AM EDT Office Visit [facility] ADULT DENTAL [address] [place] [address] Ayan Calvin, RAMIREZ [address] [place] [address] 07/17/2024 11:30 AM EDT Office Visit [facility] MEDICINE [address] [place] [address] Name, MD Gregg [address] [place] [address] 09/21/2024 8:00 AM EDT Office Visit [facility] ADULT DENTAL [address] [place] [address] Faye Mi documented as of this encounter Visit Diagnoses Not on filedocumented in this encounter Additional Health Concerns Assessment Noted Time PHQ-9 Depression Total Score: 0 09/01/19 24 10:42 AM EDT documented as of this encounter Care Teams Signal Maintainer Helper Relationship Specialty Start Date End Date Name, MD Gregg [address] [place] [address] PCP - General Family Medicine 04/16/15 [facility] 05/23/24 documented as of this encounter
--- OUTSIDE RECORDS SUMMARY | 2024-06-07 12:39 | XMS_ITS | Encounter Summary ---
Author Organization [employer] Address [address] [facility] 7t [place] [address] Care Team Providers Care Director Auto Name Role Phone Name, Gregg DIAMOND Primary Care Provider [phone] Reason for Visit * Reason Onset Date Comments Appointment Request 05/24/2024 Encounter Details Date Type Department Care Team ([facility] st Contact Info) Description 05/24/2024 Telephone [facility] MEDICINE [address] [place] [address] Name, MD Gregg [address] [place] [address] Appointment Request Social History Tobacco Use Types [...] the phone she will. Contact pt at [phone] documented in this encounter Plan of Treatment Upcoming Encounters Date Type Department Care Team (Late st Contact Info) Description 07/06/2024 9:00 AM EDT Office Visit [facility] ADULT DENTAL [address] [place] [address] Ayan Calvin DMD [address] [place] [address] 07/17/2024 11:30 AM EDT Office Visit [facility] MEDICINE [address] [place] [address] Name, MD Gregg [address] [place] [address] 09/21/2024 8:00 AM EDT Office Visit [facility] ADULT DENTAL [address] [place] [address] Faye Mi documented as of this encounter Visit Diagnoses Not on filedocumented in this encounter Additional Health Concerns Assessment Noted Time PHQ-9 Depression Total Score: 0 09/01/19 24 10:42 AM EDT documented as of this encounter Care Teams Director Auto Relationship Specialty Start Date End Date Name, MD Gregg [address] [place] [address] PCP - General Family Medicine 04/16/15 [facility] 05/23/24 documented as of this encounter
--- OUTSIDE RECORDS SUMMARY | 2024-06-07 12:39 | XMS_ITS | Encounter Summary ---
Author Organization [employer] Address [address] [facility] [address] [facility] [address] [place] [address] Care Team Providers Care School Photographs Detailer Name Role Phone Name, Gregg DIAMOND Primary Care Provider [phone] Encounter Details Date Type Department Care Team ([facility] st Contact Info) Description 10/21/2023 Telephone [facility] ADULT DENTAL [address] [place] [address] Ayan Calvin, DMD [address] [place] [address] Social History Tobacco Use Types Packs/Day Years [...] Description 07/06/2024 9:00 AM EDT Office Visit [facility] ADULT DENTAL [address] [place] [address] Ayan Calvin, RAMIREZ [address] [place] [address] 07/17/2024 11:30 AM EDT Office Visit [facility] MEDICINE [address] [place] [address] Name, MD Gregg [address] [place] [address] 09/21/2024 8:00 AM EDT Office Visit [facility] ADULT DENTAL [address] [place] [address] Faye Mi documented as of this encounter Visit Diagnoses Not on filedocumented in this encounter Additional Health Concerns Assessment Noted Time PHQ-9 Depression Total Score: 0 09/01/19 24 10:42 AM EDT documented as of this encounter Care Teams School Photographs Detailer Relationship Specialty Start Date End Date Name, MD Gregg [address] [place] [address] PCP - General Family Medicine 04/16/15 [facility] 05/23/24 documented as of this encounter
--- OUTSIDE RECORDS SUMMARY | 2024-06-07 12:39 | XMS_ITS | Encounter Summary ---
Author Organization [employer] Address [address] [facility] 7[address] [place] [address] Care Team Providers Care Cs Associate Name Role Phone Name, rGegg DIAMOND Primary Care Provider [phone] Reason for Visit * Reason Comments Med Refill Encounter Details Date Type Department Care Team ([facility] st Contact Info) Description 08/03/2023 Refill [facility] MEDICINE [address] [place], [place] [phone] Name, MD Gregg [address] [place] [address] Social History Tobacco Use Types Packs/Day Years [...] the past 12 months, has t he [email or web address], oil or water company threatened to shut [...] Description 07/06/2024 9:00 AM EDT Office Visit [facility] ADULT DENTAL [address] [place] [address] Ayan Calvin DMD [address] [place] [address] 07/17/2024 11:30 AM EDT Office Visit [facility] MEDICINE [address] [place] [address] Name, MD Gregg [address] [place] [address] 09/21/2024 8:00 AM EDT Office Visit [facility] ADULT DENTAL [address] [place] [address] Faye Mi documented as of this encounter Visit Diagnoses Not on filedocumented in this encounter Additional Health Concerns Assessment Noted Time PHQ-9 Depression Total Score: 7 03/04/19 23 9:17 AM EST documented as of this encounter Care Teams Cs Associate Relationship Specialty Start Date End Date NameGregg MD [address] [place] [address] PCP - General Family Medicine 04/16/15 [facility] 05/23/24 documented as of this encounter
--- OUTSIDE RECORDS SUMMARY | 2024-06-07 12:39 | XMS_ITS | Data Portability ---
Author Organization [place] [facility], Allergy Address [address] [place] [id number] Assessment No assessment recorded. Plan of Treatment [...] Details Recorded Time Otorrhea of right ear [id number] Active 2020 Otorrhea, right ear; Note: Date Diagnosed : 04/15/2020 9:41 AM (H92.11) Not [facility] 4 02:41:49 Sensorine ural hearing loss 85953788 Active 2014 Sensorine ural hearing loss, unilatera l, right ear, with unrestric peggy hearing on the contralat eral side; Note: Date Diagnosed : 5 1:13 PM (H90.41) Not Available [facility] 4 02:41:50 Impacted cerumen of bilateral ears [id number] 33216 Active 2015 Impacted cerumen, bilateral ; Note: Date Diagnosed : 08/12/2015 12:36 PM (H61.23) [facility] 4 02:41:46 Impacted cerumen 51497790 Active 2014 Disorders of external ear: Impacted cerumen; Note: Date Diagnosed : 11/12/2014 9:15 PM (380.4) Not Available [facility] 4 02:41:52 Infective otitis externa of left ear 85756582126 17015 Active 2014 Other infective otitis externa, left ear; Note: Date Diagnosed : 11/15/2014 4:59 PM (H60.392) Not Available [facility] 4 02:41:47 Impacted cerumen in left ear 74311520374 29027 Active 2014 Impacted cerumen, left ear; Note: Date Diagnosed : 11/15/2014 4:59 PM (H61.22) Not Available [facility] 4 02:41:51 Mixed conductiv e and sensorine ural hearing loss of left ear 03965323142 107 Active 2014 Mixed conductiv e and sensorine ural hearing loss, unilatera l, left ear, with unrestric peggy hearing on the contralat eral side; Note: Date Diagnosed : 11/15/2014 5:00 PM (H90.72) Not Available [facility] 4 02:41:46 Dysphonia 86443925 Active 2016 Dysphonia ; Note: Date Diagnosed : 05/13/2016 10:26 AM (R49.0) Not Available [facility] 4 02:41:43 Sensorine ural hearing loss of bilateral ears 344368267 Active 2016 Sensorine ural hearing loss, bilateral ; Note: Date Diagnosed : 7 4:52 PM (H90.3) Sensori neural hearing loss, bilateral ; Note: Date Diagnosed : 08/12/2015 11:37 AM (H90.3) ; Start Date : 6 Not Available [facility] 4 02:41:48 Dizziness and giddiness 034393261 Active 2016 Dizziness and giddiness ; Note: Date Diagnosed : 08/17/2016 1:43 PM (R42) Not Available [facility] 4 02:41:51 Chronic pharyngit is 856997 Active 2016 Chronic sore throat; Note: Date Diagnosed : 05/13/2016 10:24 AM (J31.2) Not Available [facility] 4 02:41:44 Unilatera l sensorine ural hearing loss with unrestric peggy hearing on the contralat eral side Active 2014 Sensorine ural HL, unilatera l; Note: Date Diagnosed : 11/12/2014 9:56 PM (389.15) Not Available [facility] 4 02:41:44 Benign paroxysma l positiona l vertigo 422532264 Active 2020 Benign paroxysma l vertigo, left ear; Note: Date Diagnosed : 1 9:47 AM (H81.12) Not Available [facility] 4 02:41:53 Itching of skin 365150515 Active 2016 Other pruritus; Note: Date Diagnosed : 04/10/2016 11:46 AM (L29.8) Not Available [facility] 4 02:41:47 Infective otitis externa 49202791 Active 2014 Acute otitis externa; Note: Date Diagnosed : 11/12/2014 9:55 PM (380.10) Not Available [facility] 4 02:41:48 Mixed conductiv e and sensorine ural hearing loss of right ear 64086890395 105 Active 2014 Mixed conductiv e and sensorine ural hearing loss, unilatera l, right ear, with unrestric peggy hearing on the contralat eral side; Note: Date Diagnosed : 11/15/2014 5:00 PM (H90.71) Not Available [facility] 4 02:41:49 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 hearing on the contralat eral side Active 2014 Mixed hearing loss, unilatera l; Note: Date Diagnosed : 11/12/2014 9:56 PM (389.21) Not Available [facility] 4 02:41:46 Problem Notes None recorded. Medical Equipment None Reported. Medications Name Sig Start Date Stop Date Status Note LastModified by Organization Details LastModified Time medbox status USE DIRECTED active Not Available Not Available No t Available cyclobenz aprine 10 mg tablet 2018 active Medicati on ID: [id number] D uration Value: 10 Brand Name: cycloben [...] by mouth 03/20 completed Medicati on ID: [id number] Du ration Value: 7 Brand Name: Augmenti n Send Method: E-Prescr ibed Sub s Allowed: subs OK Medic ationGen ericName : Augmenti n Not Available Not Available Not Available Qvar 80 mcg/actua tion Metered Aerosol oral inhaler 03/20 completed Medicati on ID: [id number] D uration Value: 30 Brand Name: Qvar [...] mg tablet 03/21 completed Medicati on ID: [id number] D uration Value: 30 Reason: () Brand Name: dorene rubio Method: E-Prescr ibed Sub s Allowed: subs OK Medic ationGen ericName : perphena nikhil Not Available Not Available Not Available ipratropi um 0.5 mg-albute rol 3 mg (2.5 mg base)/3 mL nebulizat ion soln 03/20 completed Medicati on ID: [id number] D uration Value: 7 Brand Name: ipratrop [...] 2 drop 03/20 completed Medicati on ID: [id number] Du ration Value: 7 Prescri bed By [...] ear drops 03/20 completed Medicati on ID: [id number] Br and Name: Debrox S end Method: [...] 3 drop 03/20 completed Medicati on ID: [id number] D uration Value: 10 Brand Name: Pred [...] mg tablet 03/21 completed Medicati on ID: [id number] D uration Value: 28 Reason: () Brand Name: oxycodon e-acetam inophen Send Method: E-Prescr ibed Sub s Allowed: subs OK Medic ationGen ericName : oxycodon e-acetam inophen Not Available Not Available Not Available ofloxacin 0.3 % ear drops Apply 5 drop into both ears twice a day 03/20 completed Medicati on ID: [id number] D uration Value: 7 Brand Name: ofloxaci [...] mg tablet 12/22 completed Medicati on ID: [id number] Re ason: () Brand Name: Klonopin Send Method: E-Prescr ibed Sub s Allowed: subs OK Medic ationGen ericName : Klonopin Not Available Not Available Not Available meclizine 25 mg tablet TAKE 1 TABLET BY MOUTH TWICE DAILY NEEDED active Not Available Not Available No t Available baclofen 10 mg tablet 2018 active Medicati on ID: [id number] D uration Value: 30 Brand Name: baclofen Send Method: E-Prescr ibed Sub s Allowed: subs OK Speci al Instruct ion: TAKE 1 TABLET TWICE DAILY Me dication GenericN galindo: baclofen Not Available Not Available Not Available doxepin 100 mg capsule 09/30 completed Medicati on ID: [id number] Re ason: () Brand Name: doxepin Send Method: E-Prescr ibed Sub s Allowed: subs OK Medic ationGen ericName : doxepin Not Available Not Available Not Available oseltamiv ir 75 mg capsule TAKE 1 CAPSULE BY MOUTH TWICE DAILY FOR 5 DAYS 03/20 completed Not Available Not Available Not Available levothyro xine 125 mcg tablet 03/21 completed Medicati on ID: 279059 D uration Value: 30 Reason: () Brand [...] for pain 03/21 completed Medicati on ID: 31136 Re ason: () Brand Name: oxycodon e Send Method: E-Prescr ibed Sub s Allowed: subs OK Medic ationGen ericName : oxycodon e Not Available Not Available Not Available clotrimaz ole 1 % topical solution 03/20 completed Medicati on ID: [id number] P rescribe d By Name: Josue johnson [...] elayed release 03/20 completed Medicati on ID: [id number] D uration Value: 30 Brand Name: omeprazo le Send Method: E-Prescr ibed Sub s Allowed: subs OK Speci al Instruct ion: TAKE 1 CAPSULE BY MOUTH EVERY DAY 30 MINUTES TO 1 HOUR BEFORE MEALS Me dication GenericN galindo: omeprazo le Not Available Not Available Not Available Cortispor in 3.5 mg/g-10,0 00 unit/g-0. 5 % topical cream 12/22 completed Medicati on ID: 02175 Re ason: () Brand Name: Cortispo rin Send Method: E-Prescr ibed Sub s Allowed: subs OK Medic ationGen ericName : Cortispo rin Not Available Not Available Not Available topiramat e 200 mg tablet 03/20 completed Medicati on ID: [id number] D uration Value: 30 Brand Name: topirama [...] mg tablet 03/20 completed Medicati on ID: [id number] D uration Value: 20 Brand Name: ibuprofe [...] left ear 03/20 completed Medicati on ID: 615054 D uration Value: 7 Brand Name: Cortispo [...] drops,rigo pension 03/20 completed Medicati on ID: [id number] D uration Value: 14 Brand Name: TobraDex Send Method: E-Prescr ibed Sub s Allowed: subs OK Speci al Instruct ion: Instill 3 drops in the affect ear BID for 10 days Med icationG enericNa me: TobraDex Not Available Not Available Not Available Flovent HFA 220 mcg/actua tion aerosol inhaler 03/20 completed Medicati on ID: [id number] D uration Value: 60 Brand Name: Flovent [...] as directed 03/20 completed Medicati on ID: [id number] D uration Value: 7 Brand Name: DermOtic [...] mcg capsule 11/12 completed Medicati on ID: [id number] Re ason: () Brand Name: Tirosint Send [...] Updated DateTime 03/20/2024 160.02 cm 30.8 kg/m2 51156.07 g Natacha Childs [place] - [facility] 03/20/2024 13:01:51 Social History None recorded. Functional Status None recorded. Mental Status None recorded. Family History Nothing Reported. Medical History No medical history recorded. Gynecological HistoryNo gynecological history recorded. Obstetrics History GPAL:G 0 P 0 0 0 0 Past Encounters Encounter ID Performer Location Encounter Start Date Encounter Closed Date Diagnosis/Indication Diagnosis SNOMED-CT Code Diagnosis ICD10 Code Diagnosis Note [id number] JOSUE SHEPHERD MD [facility] [address] [phone] 03/20/2024 12:52:27 03/20/2024 13:16:19 Impacted cerumen of bilateral ears [id number] 333691 H61.23 She has very narrow canals and [...] Schrader Member ID Guarantor Name 03/20/2024 1 [facility] - DOS ON OR AFTER 2022 - LONG TERM OPTIONS AND ONE CARE (MEDICARE REPLACEMENT/ADV ANTAGE - PPO) Mag Ayala [id number] Mag Ayala Notes Date Note Type Note Provider Name and Address Organization Details Recorded Time 03/20/2024 text/html Dizziness now and then, having some ear itching. JOSUE SHEPHERD MD [address] [place] [address], [phone], [facility] - [facility] 03/20/2024 17:18:34 OBGyn Episode No OBEpisode recorded.
--- OUTSIDE RECORDS SUMMARY | 2024-06-07 12:39 | XMS_ITS | Encounter Summary ---
Author Organization [employer] Address [address] [place] [address] Care Team Providers Care Scenery Builder Name Role Phone Name, Gregg DIAMOND Primary Care Provider [phone] Reason for Visit * Reason Comments Med Refill Encounter Details Date Type Department Care Team ([facility] st Contact Info) Description 06/07/2024 Refill [facility] MEDICINE [address] [place], [place] [phone] Name, MD Gregg [address] [place] [address] Social History Tobacco Use Types Packs/Day Years [...] Visit [facility] ADULT DENTAL [address] [place] [address] Ayan Calvin, RAMIREZ [address] [place] [address] 07/17/2024 11:30 AM EDT Office Visit [facility] MEDICINE [address] [place] [address] Name, MD Gregg [address] [place] [address] 09/21/2024 8:00 AM EDT Office Visit [facility] ADULT DENTAL [address] [place] [address] Faye Mi documented as of this encounter Visit Diagnoses Not on filedocumented in this encounter Additional Health Concerns Assessment Noted Time PHQ-9 Depression Total Score: 0 09/01/19 24 10:42 AM EDT documented as of this encounter Care Teams Scenery Builder Relationship Specialty Start Date End Date Name, MD Gregg [address] [place] [address] PCP - General Family Medicine 04/16/15 [facility] 05/23/24 documented as of this encounter
--- OUTSIDE RECORDS SUMMARY | 2024-06-07 12:39 | XMS_ITS | Encounter Summary ---
Author Organization [employer] Address [address] [facility] 7t [place] [address] Care Team Providers Care Loan Reviewer Name Role Phone Name, Gregg DIAMOND Primary Care Provider [phone] Reason for Visit * Reason Onset Date Comments Med Refill 06/02/2024 Encounter Details Date Type Department Care Team ([facility] st Contact Info) Description 06/02/2024 Telephone [facility] MEDICINE [address] [place] [address] Name, MD Gregg [address] [place] [address] Med Refill Social History Tobacco Use Types [...] auto-injector. Pt reports she was advised by [facility] pharmacy staff Vandana or Cassy to request an increase. Pt reports she has a lot going. Pt reports she is gaining weight, she is unable to walk, and is getting injections. Pt requesting increase before clam picker on Wednesday. Message forwarded to PCP to review and advise. * Telephone Encounter - Neelam Isaac - 06/02/2024 12:35 PM EDT Tc from pt requesting dosis increase. Pt state that the pharmacy sent her to ask for an increase indosage Wednesday is pick-up day Contact pt [phone] documented in this encounter Plan of Treatment Upcoming Encounters Date Type Department Care Team (Late st Contact Info) Description 07/06/2024 9:00 AM EDT Office Visit [facility] ADULT DENTAL [address] [place] [address] Ayan Calvin, RAMIREZ [address] [place] [address] 07/17/2024 11:30 AM EDT Office Visit [facility] MEDICINE [address] [place] [address] Name, MD Gregg [address] [place] [address] 09/21/2024 8:00 AM EDT Office Visit [facility] ADULT DENTAL [address] [place] [address] Faye Mi documented as of this encounter Visit Diagnoses Not on filedocumented in this encounter Additional Health Concerns Assessment Noted Time PHQ-9 Depression Total Score: 0 09/01/19 24 10:42 AM EDT documented as of this encounter Care Teams Loan Reviewer Relationship Specialty Start Date End Date Name, MD Gregg [address] [place] [id number] PCP - General Family Medicine 04/16/15 [facility] 05/23/24 documented as of this encounter
--- OUTSIDE RECORDS SUMMARY | 2024-06-07 12:39 | XMS_ITS | Encounter Summary ---
Author Organization [facility] Address [address] [facility] 7t [place] [address] Care Team Providers Care Director Epidemiology Name Role Phone Name, Gregg DIAMOND Primary Care Provider [phone] Encounter Details Date Type Department Care Team (Latest Contact Info) Description 09/27/2018 Abstract [facility] CONVERSIONS Dental, Provider, DDS Social [...] 07/06/2024 9:00 AM EDT Office Visit [facility] ADULT DENTAL [address] [place] [address] Ayan Calvin DMD [address] [place] [address] 07/17/2024 11:30 AM EDT Office Visit [facility] MEDICINE [address] [place] [address] Name, MD Gregg [address] [place] [address] 09/21/2024 8:00 AM EDT Office Visit [facility] ADULT DENTAL [address] [place] [address] Faye Mi documented as of this encounter Visit Diagnoses Not on filedocumented in this encounter Care Teams Director Epidemiology Relationship Specialty Start Date End Date Name, MD Gregg [address] [place] [address] PCP - General Family Medicine 04/16/15 [facility] 05/23/24 documented as of this encounter
--- OUTSIDE RECORDS SUMMARY | 2024-06-07 12:39 | XMS_ITS | Encounter Summary ---
Author Organization [employer] Address [address] 7[address] [place] [address] Care Team Providers Care Retail Tire Sales Manager Name Role Phone Name, Gregg DIAMOND Primary Care Provider [phone] Reason for Visit * Reason Onset Date Comments PT1 07/27/2023 Encounter Details Date Type Department Care Team ([facility] st Contact Info) Description 07/27/2023 Telephone [facility] MEDICINE [address] [place] [address] Name, MD Gregg [address] [place] [address] PT1 Social History Tobacco Use Types Packs/Day [...] name: Dr. Carson Smith MD Facility Address: [address] [place] [address] [address], [facility], [address] Escort needed: Y/N: No Do you have a wheelchair: Y/N: No If yes- Manual or electric: Visits: 2-3 Next upcoming appt 08/03/23 documented in this encounter Plan of Treatment Upcoming Encounters Date Type Department Care Team (Late st Contact Info) Description 07/06/2024 9:00 AM EDT Office Visit [facility] ADULT DENTAL [address] [place] [address] Ayan Calvin DMD [address] [place] [address] 07/17/2024 11:30 AM EDT Office Visit [facility] MEDICINE [address] [place] [address] Name, MD Gregg [address] [place], [place] [phone] 09/21/2024 8:00 AM EDT Office Visit [facility] ADULT DENTAL [address] [place] [address] Faye Mi documented as of this encounter Visit Diagnoses Not on filedocumented in this encounter Additional Health Concerns Assessment Noted Time PHQ-9 Depression Total Score: 7 03/04/19 23 9:17 AM EST documented as of this encounter Care Teams Retail Tire Sales Manager Relationship Specialty Start Date End Date Name, MD Gregg [address] [place] [address] PCP - General Family Medicine 04/16/15 [facility] 05/23/24 documented as of this encounter
--- OUTSIDE RECORDS SUMMARY | 2024-06-07 12:39 | XMS_ITS | Encounter Summary ---
Author Organization [employer] Address [address] [facility] 7t [place] [address] Care Team Providers Care Technical Publications Manager Name Role Phone Name, Gregg DIAMOND Primary Care Provider [phone] Reason for Visit * Reason Onset Date Comments Appointment Request 04/18/2024 Encounter Details Date Type Department Care Team ([facility] st Contact Info) Description 04/18/2024 Telephone [facility] MEDICINE [address] [place] [address] Name, MD Gregg [address] [place] [address] Appointment Request Social History Tobacco Use Types [...] PCP. Pt states will be out of [place] from June 18- as she has an appointment with the oncologist on the and with the neurosurgeon on June 27. documented in this encounter Plan of Treatment Upcoming Encounters Date Type Department Care Team (Late st Contact Info) Description 07/06/2024 9:00 AM EDT Office Visit [facility] ADULT DENTAL [address] [place] [address] Ayan Calvin, RAMIREZ [address] [place] [address] 07/17/2024 11:30 AM EDT Office Visit [facility] MEDICINE [address] [place] [address] Name, MD Gregg [address] [place] [address] 09/21/2024 8:00 AM EDT Office Visit [facility] ADULT DENTAL [address] [place] [address] Faye Mi documented as of this encounter Visit Diagnoses Not on filedocumented in this encounter Additional Health Concerns Assessment Noted Time PHQ-9 Depression Total Score: 0 09/01/19 24 10:42 AM EDT documented as of this encounter Care Teams Technical Publications Manager Relationship Specialty Start Date End Date Name, MD Gregg [address] [place] [address] PCP - General Family Medicine 04/16/15 [facility] 05/23/24 documented as of this encounter
--- OUTSIDE RECORDS SUMMARY | 2024-06-07 12:39 | XMS_ITS | Encounter Summary ---
Author Organization [employer] Address [address] [facility] 7t [place] [address] Care Team Providers Care Dragsaw Operator Name Role Phone Name, Gregg DIAMOND Primary Care Provider Reason for Visit * Reason Comments Med Refill Encounter Details Date Type Department Care Team (Late Contact Info) Description 03/04/2022 Refill [facility] MEDICINE [address] [place] [address] Name, MD Gregg [address] [place] [address] Osteoporosis, unspecified osteoporosis type, unspecified pathological fracture [...] Description 07/06/2024 9:00 AM EDT Office Visit [facility] ADULT DENTAL [address] [place] [address] Ayan Calvin, RAMIREZ [address] [place] [address] 07/17/2024 11:30 AM EDT Office Visit [facility] MEDICINE [address] [place] [address] Name, MD Gregg [address] [place] [address] 09/21/2024 8:00 AM EDT Office Visit [facility] ADULT DENTAL [address] [place] [address] Faye Mi documented as of this encounter Visit Diagnoses Diagnosis Osteoporosis, unspecified osteoporosis type, unspecified pathological fracture presence documented in this encounter Additional Health Concerns Assessment Noted Time PHQ-9 Depression Total Score: 7 03/04/19 23 9:17 AM EST documented as of this encounter Care Teams Dragsaw Operator Relationship Specialty Start Date End Date Name, MD Gregg [address] [place] [address] PCP - General Family Medicine 04/16/15 [facility] 05/23/24 documented as of this encounter
--- OUTSIDE RECORDS SUMMARY | 2024-06-07 12:39 | XMS_ITS | Encounter Summary ---
Author Organization [employer] Address [address] [place] [address] Care Team Providers Care Service Advisor Name Role Phone Name, Gregg DIAMOND Primary Care Provider [phone] Reason for Visit * Reason Onset Date Comments broken tooth to hold partial 02/28/2024 Encounter Details Date Type Department Care Team (Late st Contact Info) Description 02/28/2024 Telephone [facility] ADULT DENTAL [address] [place] [address] Ayan Calvin, DMD [address] [place] [address] broken tooth to hold partial Social History [...] 9:00 AM EDT Office Visit [facility] ADULT DENTAL [address] [place] [address] Ayan Calvin, RAMIREZ [address] [place] [address] 07/17/2024 11:30 AM EDT Office Visit [facility] MEDICINE [address] [place] [address] Name, MD Gregg [address] [place] [address] 09/21/2024 8:00 AM EDT Office Visit [facility] ADULT DENTAL [address] [place] [address] Faye Mi documented as of this encounter Visit Diagnoses Not on filedocumented in this encounter Additional Health Concerns Assessment Noted Time PHQ-9 Depression Total Score: 0 09/01/19 24 10:42 AM EDT documented as of this encounter Care Teams Service Advisor Relationship Specialty Start Date End Date Name, MD Gregg [address] [place] [address] PCP - General Family Medicine 04/16/15 [facility] 05/23/24 documented as of this encounter
--- OUTSIDE RECORDS SUMMARY | 2024-06-07 12:39 | XMS_ITS | Encounter Summary ---
Author Organization [employer] Address [address] [facility] [address] 7t [place] [address] Care Team Providers Care Extruding Department Supervisor Name Role Phone Name, Gregg DIAMOND Primary Care Provider [phone] Reason for Visit * Reason Onset Date Comments PT1 02/25/2023 Encounter Details Date Type Department Care Team ([facility] st Contact Info) Description 02/25/2023 Telephone [facility] MEDICINE 230 [place] [address] Name, MD Gregg 230 [place] [address] PT1 Social History Tobacco Use Types Packs/Day [...] - valid through 06/2023 [facility] neurology - [id number] authorized Dr Chakraborty - [id number] pending [facility] Gen Surg - [id number] authorized [facility] - [id number] authorized Renal & Trans - [id number] authorized ENT - [id number] pending [facility] medical office - [id number] pending * Telephone Encounter - Cameron Su - 02/25/2023 4:29 PM EST PT1 needed Date: N/A Time: N/A Visits: 2 or 3 monthly Address: [address] [facility] Facility: [facility] Cardiovascular Wheel Chair: No Manager Income Tax Needed: No PT1 needed Date: N/A Time: N/A Visits: 2 or 3 Monthly Address: [address] [facility] Facility: [facility] Neurology Wheel No Manager Income Tax Needed: No PT1 needed Date: N/A Time: N/A Visits: 2 or 3 Monthly Address: [address] [facility] Facility: Dr Chakraborty Wheel Chair: No Manager Income Tax Needed: No PT1 needed Date: N/A Time: N/A Visits: 2 or 3 Monthly Address: [address] [place] [address] dr LambertRafy [place] Facility: [facility] General Surgery Wheel Chair: No Manager Income Tax Needed: No PT1 needed Date: N/A Time: N/A Visits: 2 or 3 Monthly Address: [address] [place] [address] Facility: [facility] Wheel Chair: No Manager Income Tax Needed: No PT1 needed Date: N/A Time: N/A Visits: 2 or 3 monthly Address: [address] [facility] Facility: [facility] Wheel Chair: No Manager Income Tax Needed: No PT1 needed Date: N/A Time: N/A Visits: 2 or 3 monthly Address: [address] [facility] Facility: [facility] Wheel Chair: No Manager Income Tax Needed: No PT1 needed Date: N/A Time: N/A Visits: 2 or 3 Monthly Address: [address] [facility] [address] Cesia DESOUZA Facility: [facility] medical Office Wheel Chair: No Manager Income Tax Needed: No PT1 needed Date: N/A Time: N/A Visits: 2 or 3 Monthly Address: [address] [place] [address] Facility: [facility] Wheel Chair: No Manager Income Tax Needed: No documented in this encounter Plan of Treatment Upcoming Encounters Date Type Department Care Team (Late st Contact Info) Description 07/06/2024 9:00 AM EDT Office Visit [facility] ADULT DENTAL [address] [place] [address] Ayan Calvin, RAMIREZ [address] [place] [address] 07/17/2024 11:30 AM EDT Office Visit [facility] MEDICINE [address] [place] [address] Name, MD Gregg 230 [place] [address] 09/21/2024 8:00 AM EDT Office Visit [facility] ADULT DENTAL [address] [place] [address] Faye Mi documented as of this encounter Visit Diagnoses Not on filedocumented in this encounter Additional Health Concerns Assessment Noted Time PHQ-9 Depression Total Score: 7 03/04/19 23 9:17 AM EST documented as of this encounter Care Teams Extruding Department Supervisor Relationship Specialty Start Date End Date Name, MD Gregg [address] [place] [address] PCP - General Family Medicine 04/16/15 [facility] 05/23/24 documented as of this encounter
--- OUTSIDE RECORDS SUMMARY | 2024-06-07 12:39 | XMS_ITS | Encounter Summary ---
Author Organization [employer] Address [address] [facility] 7t [place] [address] Care Team Providers Care Higher Level Teaching Assistant Name Role Phone Name, Gregg DIAMOND Primary Care Provider [phone] Reason for Visit * Reason Onset Date Comments Nurse Triage 05/04/2024 Encounter Details Date Type Department Care Team ([facility] st Contact Info) Description 05/04/2024 Telephone [facility] MEDICINE 230 [place] [address] Name, MD Gregg [address] [place] [address] Nurse Triage Social History Tobacco Use Types [...] information. Do see mention of hemorrhoids. 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 Call returned to Mag Ayala to triage [...] to perform UA. Pt requesting referral to Mash Filter Press Operator per recommendation from Delinquency Prevention Officer. Pt advised will forward note to Provider [...] acuity questions The caller accepted this outcome. [phone] (icelandic) pt states knows Welsh but there are some words she can't say or understand. Tc from pt stating visited the software tools build engineer today, and he told pt should ask her PCP for a referral for a prosthetic because pt has several purple veins in the anus. Pt states this hasn't happenedto her before. documented in this encounter Plan of Treatment Upcoming Encounters Date Type Department Care Team (Late st Contact Info) Description 07/06/2024 9:00 AM EDT Office Visit [facility] ADULT DENTAL [address] [place] [address] Ayan Calvin, RAMIREZ [address] [place] [address] 07/17/2024 11:30 AM EDT Office Visit [facility] MEDICINE [address] [place] [address] Name, MD Gregg [address] [place] [address] 09/21/2024 8:00 AM EDT Office Visit [facility] ADULT DENT[facility] [address] [facility] [place] [address] Faye Mi documented as of this encounter Visit Diagnoses Not on filedocumented in this encounter Additional Health Concerns Assessment Noted Time PHQ-9 Depression Total Score: 0 09/01/19 10:42 AM EDT documented as of this encounter Care Teams Higher Level Teaching Assistant Relationship Specialty Start Date End Date Name, MD Gregg [address] [facility] [place] [address] PCP - General Family Medicine 04/16/15 [facility] 05/23/24 documented as of this encounter
--- OUTSIDE RECORDS SUMMARY | 2024-06-07 12:39 | XMS_ITS | Encounter Summary ---
Author Organization [employer] Address [address] [facility] 7t [place] [address] Care Team Providers Care Corsage Maker Name Role Phone Name, Gregg DIAMOND Primary Care Provider [phone] Reason for Visit * Reason Onset Date Comments ER Follow-up 05/02/2024 Nurse Triage 05/02/2024 Encounter Details Date Type Department Care Team ([facility] st Contact Info) Description 05/02/2024 Telephone [facility] MEDICINE 230 [place] [address] Name, MD Gregg 230 [place] [address] ER Follow-up; Nurse Triage Social History Tobacco [...] of the rollator walker. TC placed to [facility] pharamcyregarding the fosamax. Lori states the [...] June Pt requesting a call from PCP. Cloth Shrinking Tester found telehealth visit in PCP schedule. Pt [...] find out more information. TC placed to [facility] pharamcy regardingthe fosamax. Lori states the [...] She states that she went to the [facility] ED yesterday due to right leg pain and right knee isswollen. Pt. Was also having throbbing pain in left side of groin. [facility] ED did not find any blood clot in leg and Xray of left hip and pelvis-negative. ED is recommending referral to Senior Product Manager according to pt. Pt does not want [...] that she remembers. Pt. Needs referral to Senior Product Manager. Offered pt. Appt. Today but, pt. Only wants to speak to pcp and is requesting appt. With PCP only or call from PCP to discuss updates and needs. Please get back to pt. To let her know if any of these needs can be met Will send request to Clinical coordinators to get [facility] ED report from yesterday into pt. Chart. Multiple needs. * Telephone Encounter - Shubham Booth - 05/02/2024 10:20 AM EDT Patient calling to report ED visit on : Date: 05/01/2024 Hospital: [facility] Seen for: Knee pain , groin pain [...] Description 07/06/2024 9:00 AM EDT Office Visit [facility] ADULT DENTAL [address] [place] [address] Ayan Calvin DMD [address] [place] [address] 07/17/2024 11:30 AM EDT Office Visit [facility] MEDICINE [address] [place] [address] Name, MD Gregg [address] [place] [address] 09/21/2024 8:00 AM EDT Office Visit [facility] ADULT DENTAL [address] [place] [address] Faye Mi documented as of this encounter Visit Diagnoses Not on filedocumented in this encounter Additional Health Concerns Assessment Noted Time PHQ-9 Depression Total Score: 0 09/01/19 24 10:42 AM EDT documented as of this encounter Care Teams Corsage Maker Relationship Specialty Start Date End Date Name, MD Gregg 230 [place] [address] PCP - General Family Medicine 04/16/15 [facility] 05/23/24 documented as of this encounter
--- OUTSIDE RECORDS SUMMARY | 2024-06-07 12:39 | XMS_ITS | Encounter Summary ---
Author Organization [employer] Address [address] [facility] 7t [place] [address] Care Team Providers Care Neon Molder Name Role Phone Name, Gregg DIAMOND Primary Care Provider [phone] Encounter Details Date Type Department Care Team (Late st Contact Info) Description 01/14/2022 Abstract [facility] ADULT DENTAL 230 [place] [address] Dental, Provider, DDS Social History Tobacco Use [...] 9:00 AM EDT Office Visit [facility]ULT D[facility] 230 [place] [address] Ayan Calvin DMD 230 [place] [address] 07/17/2024 11:30 AM EDT Office Visit [facility] MEDICINE [address] [place] [address] Gregg Gandhi MD 230 [place] [address] 09/21/2024 8:00 AM EDT Office Visit [facility] ADULT DENTAL 230 [place] [address] Mi, Faye documented as of this encounter [...] on filedocumented in this encounter Care Teams Neon Molder Relationship Specialty Start Date End Date Name, MD Gregg [address] [place] [address] PCP - General Family Medicine 04/16/15 [facility] 05/23/24 documented as of this encounter
--- OUTSIDE RECORDS SUMMARY | 2024-06-07 12:39 | XMS_ITS | Encounter Summary ---
Author Organization [email or web address] Address [address] [facility] [facility] [facility] [address] 7t [place] [address] Care Team Providers Care Cable Television Technician Name Role Phone Name, Gregg DIAMOND Primary Care Provider [phone] Reason for Visit * Reason Onset Date Comments Request For Order(s) 07/30/2023 Encounter Details Date Type Department Care Team ([facility] st Contact Info) Description 07/30/2023 Telephone [facility] MEDICINE 230 [place], [place] [phone] Name, MD Gregg 230 [place] [address] Request For Order(s) Social History Tobacco Use [...] done. Please clarify Please contact pt at [phone] (No uniform designer needed) documented in this encounter Plan of Treatment Upcoming Encounters Date Type Department Care Team (Late st Contact Info) Description 07/06/2024 9:00 AM EDT Office Visit [facility] ADULT DENTAL [address] [place] [address] Ayan Calvin DMD 230 [place] [address] 07/17/2024 11:30 AM EDT Office Visit [facility] MEDICINE [address] [place] [address] Name, MD Gregg 230 [place] [address] 09/21/2024 8:00 AM EDT Office Visit [facility] ADULT DENTAL [address] [place] [address] Faye Mi documented as of this encounter Visit Diagnoses Not on filedocumented in this encounter Additional Health Concerns Assessment Noted Time PHQ-9 Depression Total Score: 7 03/04/19 23 9:17 AM EST documented as of this encounter Care Teams Cable Television Technician Relationship Specialty Start Date End Date NameGregg MD 230 [place] [address] PCP - General Family Medicine 04/16/15 [facility] 05/23/24 documented as of this encounter
--- OUTSIDE RECORDS SUMMARY | 2024-06-07 12:39 | XMS_ITS | Encounter Summary ---
Author Organization [employer] [facility] Address [address] [facility] 7t [place] [address] Care Team Providers Care Rehab Office Coordinator Name Role Phone Name, Gregg DIAMOND Primary Care Provider [phone] Encounter Details Date Type Department Care Team (Latest Contact Info) Description 12/25/2019 Abstract [facility] CONVERSIONS Dental, Provider, DDS Social [...] Description 07/06/2024 9:00 AM EDT Office Visit [facility] ADULT DENTAL 230 [place] [address] Ayan Calvin DMD 230 [place] [address] 07/17/2024 11:30 AM EDT Office Visit [facility] MEDICINE 230 [place] [address] Name, MD Gregg 230 [place] [address] 09/21/2024 8:00 AM EDT Office Visit [facility] ADULT DENTAL 230 [place] [address] Faye Mi documented as of this encounter Visit Diagnoses Not on filedocumented in this encounter Care Teams Rehab Office Coordinator Relationship Specialty Start Date End Date Name, MD Gregg 230 [place] [address] PCP - General Family Medicine 04/16/15 [facility] 05/23/24 documented as of this encounter
--- OUTSIDE RECORDS SUMMARY | 2024-06-07 12:39 | XMS_ITS | Encounter Summary ---
Author Organization [employer] Address [address] [facility] [address] 7t [place] [address] Care Team Providers Care Gynecologist Name Role Phone Name, Gregg DIAMOND Primary Care Provider [phone] Reason for Visit * Reason Comments Med Refill Encounter Details Date Type Department Care Team ([facility] st Contact Info) Description 11/16/[address] [facility] 230 [place], [place] [phone] Yennifer Ramirez MD 230 [place] [address] Flu-like symptoms Social History Tobacco Use Types [...] [facility] AD[facility] [address] [place] [address] Ayan Calvin DMD 230 [place] [address] 07/17/2024 11:30 AM EDT Office Visit [facility] MEDICINE [address] [place] [address] Name, MD Gregg [address] [place] [address] 09/21/2024 8:00 AM EDT Office Visit [facility] ADULT DENTAL [address] [place] [address] Faye Mi documented as of this encounter Visit Diagnoses Diagnosis Flu-like symptoms documented in this encounter Additional Health Concerns Assessment Noted Time PHQ-9 Depression Total Score: 0 09/01/19 24 10:42 AM EDT documented as of this encounter Care Teams Gynecologist Relationship Specialty Start Date End Date Name, MD Gregg 230 [place] [address] PCP - General Family Medicine 04/16/15 [facility] 05/23/24 documented as of this encounter
--- OUTSIDE RECORDS SUMMARY | 2024-06-07 12:39 | XMS_ITS | Encounter Summary ---
Author Organization [employer] Address [address] [facility] 7t [place] [address] Care Team Providers Care Soaker Hides Name Role Phone Name, Gregg DIAMOND Primary Care Provider [phone] Reason for Visit * Reason Onset Date Comments Durable Medical Equipment 06/02/2024 Encounter Details Date Type Department Care Team (Late st Contact Info) Description 06/02/2024 Telephone [facility] MEDICINE [address] [place] [address] Name, MD Gregg 230 [place] [address] Durable Medical Equipment Social History Tobacco Use [...] 07/06/2024 9:00 AM EDT Office Visit [facility] ADULT DENTAL [address] [place] [address] Ayan Calvin DMD 230 [place] [address] 07/17/2024 11:30 AM EDT Office Visit [facility] MEDICINE [address] [place] [address] Name, MD Gregg 230 [place] [address] 09/21/2024 8:00 AM EDT Office Visit [facility] ADULT DENTAL [address] [place] [address] Faye Mi documented as of this encounter Visit Diagnoses Not on filedocumented in this encounter Additional Health Concerns Assessment Noted Time PHQ-9 Depression Total Score: 0 09/01/19 24 10:42 AM EDT documented as of this encounter Care Teams Soaker Hides Relationship Specialty Start Date End Date Name, MD Gregg 230 [place] [address] PCP - General Family Medicine 04/16/15 [facility] 05/23/24 documented as of this encounter
--- OUTSIDE RECORDS SUMMARY | 2024-06-07 12:39 | XMS_ITS | Encounter Summary ---
Author Organization [employer] Address [address] [facility] [address] 7t [place] [address] Care Team Providers Care Double Reamer Operator Name Role Phone Name, Gregg DIAMOND Primary Care Provider [phone] Reason for Visit * Reason Onset Date Comments clarification of tx 08/09/2023 Encounter Details Date Type Department Care Team (Late st Contact Info) Description 08/09/2023 Telephone [facility] [address] [place] [address] Ayan Calvin, DMD [address] [place] [address] clarification of tx Social History Tobacco Use [...] you to call her. She went to [facility] for RCT today but is looking to [...] 9:00 AM EDT Office Visit [facility] [address] [place] [address] Ayan Calvin, RAMIERZ 230 [place] [address] 07/17/2024 11:30 AM EDT Office Visit [facility] [address] [place] [address] Name, MD Gregg 230 [place] [address] 09/21/2024 8:00 AM EDT Office Visit [facility] 230 [place] [address] Faye Mi documented as of this encounter Visit Diagnoses Not on filedocumented in this encounter Additional Health Concerns Assessment Noted Time PHQ-9 Depression Total Score: 7 03/04/19 23 9:17 AM EST documented as of this encounter Care Teams Double Reamer Operator Relationship Specialty Start Date End Date Name, MD Gregg 230 [place] [address] PCP - General Family Medicine 04/16/15 [facility] 05/23/24 documented as of this encounter
--- OUTSIDE RECORDS SUMMARY | 2024-06-07 12:39 | XMS_ITS | Encounter Summary ---
Author Organization [employer] Address [address] [facility] [address] 7t [place] [address] Care Team Providers Care Retail Sales Professional Name Role Phone Name, Gregg DIAMOND Primary Care Provider [phone] Reason for Visit * Reason Onset Date Comments Nurse Triage 11/27/2022 Encounter Details Date Type Department Care Team ([facility] st Contact Info) Description 11/27/2022 Telephone [facility] MEDICINE [address] [place] [address] Name, MD Gregg 230 [place] [address] Nurse Triage Social History Tobacco Use Types [...] caller accepted this outcome Does not need door to door salesman . documented in this encounter Plan of Treatment Upcoming Encounters Date Type Department Care Team (Late st Contact Info) Description 07/06/2024 9:00 AM EDT Office Visit [facility] ADULT DENTAL [address] [place] [address] Ayan Calvin DMD [address] [place] [address] 07/17/2024 11:30 AM EDT Office Visit [facility] MEDICINE [address] [place] [address] Name, MD Gregg [address] [place] [address] 09/21/2024 8:00 AM EDT Office Visit [facility] ADULT DENTAL [address] [place] [address] Faye Mi documented as of this encounter Visit Diagnoses Not on filedocumented in this encounter Additional Health Concerns Assessment Noted Time PHQ-9 Depression Total Score: 7 03/04/19 23 9:17 AM EST documented as of this encounter Care Teams Retail Sales Professional Relationship Specialty Start Date End Date Name, MD Gregg [address] [place] [address] PCP - General Family Medicine 04/16/15 [facility] 05/23/24 documented as of this encounter
--- OUTSIDE RECORDS SUMMARY | 2024-06-07 12:39 | XMS_ITS | Encounter Summary ---
Author Organization [employer] Address [address] [facility] [address] 7t [place] [address] Care Team Providers Care Admitting Manager Name Role Phone Name, Gregg DIAMOND Primary Care Provider [phone] Reason for Visit * Reason Comments Med Refill Encounter Details Date Type Department Care Team ([facility] st Contact Info) Description 02/14/2024 Refill [facility] 230 [place], [place] [phone] Name, MD Gregg 230 [place] [address] Social History Tobacco Use Types Packs/Day Years [...] Description 07/06/2024 9:00 AM EDT Office Visit [facility] ADULT DENTAL [address] [place] [address] Ayan Calvin, RAMIREZ 230 [place] [address] 07/17/2024 11:30 AM EDT Office Visit [facility] MED[facility] [address] [place] [address] Name, MD Gregg [address] [place] [address] 09/21/2024 8:00 AM EDT Office Visit [facility] ADULT DENT[facility] [address] [place] [address] Faye Mi documented as of this encounter Visit Diagnoses Not on filedocumented in this encounter Additional Health Concerns Assessment Noted Time PHQ-9 Depression Total Score: 0 09/01/19 24 10:42 AM EDT documented as of this encounter Care Teams Admitting Manager Relationship Specialty Start Date End Date Name, MD Gregg [address] [place] [address] PCP - General Family Medicine 04/16/15 [facility] 05/23/24 documented as of this encounter
--- OUTSIDE RECORDS SUMMARY | 2024-06-07 12:40 | XMS_ITS | Encounter Summary ---
Author Organization [email or web address] [facility] Address [address] [facility] 7t [place] [address] Care Team Providers Care Airconditioning Drafting Officer Name Role Phone Name, Gregg DIAMOND Primary Care Provider [phone] Reason for Visit * Reason Comments Med Refill Encounter Details Date Type Department Care Team ( Contact Info) Description 10/06/2022 Refill [facility] MEDICINE 230 [place], [place] [phone] Name, MD Gregg 230 [place] [address] Osteoporosis, unspecified osteoporosis type, unspecified pathological fracture [...] Description 07/06/2024 9:00 AM EDT Office Visit [facility] ADULT DENT[facility] 230 [place], [place] [phone] Ayan Calvin, RAMIREZ [address] [place], [place] [phone] 07/17/2024 11:30 AM EDT Office Visit [facility] MED[facility]INE [address] [place] [address] Name, [place] [address] 09/21/2024 8:00 AM EDT Office Visit [facility] ADULT D[facility] 230 [place] [address] Faye Mi documented as of this encounter Visit Diagnoses Diagnosis Osteoporosis, unspecified osteoporosis type, unspecified pathological fracture presence documented in this encounter Additional Health Concerns Assessment Noted Time PHQ-9 Depression Total Score: 7 03/04/19 23 9:17 AM EST documented as of this encounter Care Teams Airconditioning Drafting Officer Relationship Specialty Start Date End Date Name, [place] [address] PCP - General Family Medicine 04/16/15 [facility] 05/23/24 documented as of this encounter
--- OUTSIDE RECORDS SUMMARY | 2024-06-07 12:40 | XMS_ITS | Encounter Summary ---
Author Organization [facility] Address [address] [facility] 7t [place] [address] Care Team Providers Care Mathematics Improvement Teacher Name Role Phone Name, Gregg DIAMOND Primary Care Provider [phone] Reason for Visit * Reason Comments Med Refill Encounter Details Date Type Department Care Team ( Contact Info) Description 10/14/2022 Refill [facility] MED[facility]INE [address] [place], [place] [phone] Name, MD Gregg 230 [place] [address] Osteoporosis, unspecified osteoporosis type, unspecified pathological fracture [...] Visit [facility] ADULT DENTAL [address] [place], [place] [phone] Ayan Calvin, RAMIREZ [address] [place], [place] [phone] 07/17/2024 11:30 AM EDT Office Visit [facility] MED[facility]INE [address] [place] [address] Name, [place] [address] 09/21/2024 8:00 AM EDT Office Visit [facility] ADULT DENTAL [address] [place] [address] Faye Mi documented as of this encounter Visit Diagnoses Diagnosis Osteoporosis, unspecified osteoporosis type, unspecified pathological fracture presence documented in this encounter Additional Health Concerns Assessment Noted Time PHQ-9 Depression Total Score: 7 03/04/19 23 9:17 AM EST documented as of this encounter Care Teams Mathematics Improvement Teacher Relationship Specialty Start Date End Date Name, [place] [address] PCP - General Family Medicine 04/16/15 [facility] 05/23/24 documented as of this encounter
--- OUTSIDE RECORDS SUMMARY | 2024-06-07 12:40 | XMS_ITS | Encounter Summary ---
Author Organization [employer] Address [address] [facility] 7t [place] [address] Care Team Providers Care Statistical Programmer Analyst Name Role Phone Name, Gregg DIAMOND Primary Care Provider [phone] Encounter Details Date Type Department Care Team (Late st Contact Info) Description 07/20/2022 Abstract [facility] [address] [place] [address] Name, MD Gregg [address] [place] [address] Social History Tobacco Use Types Packs/Day Years [...] EDT Office Visit [facility] ADULT DENTAL [address] [place] [address] Ayan Calvin DMD 230 [place] [address] 07/17/2024 11:30 AM EDT Office Visit [facility] [address] [place], [place] [address] [address] Name, MD Gregg [address] [facility] [place] [address] 09/21/2024 8:00 AM EDT Office Visit [facility] [address] [facility] [place] [address] Faye Mi documented as of this encounter [...] documented as of this encounter Care Teams Statistical Programmer Analyst Relationship Specialty Start Date End Date Name[place] [address] PCP - General Family Medicine 04/16/15 [facility] 05/23/24 documented as of this encounter
--- OUTSIDE RECORDS SUMMARY | 2024-06-07 12:40 | XMS_ITS | Encounter Summary ---
Author Organization [employer] Address [address] 7t [place] [address] Care Team Providers Care Converter Operator Name Role Phone Name, Gregg DIAMOND Primary Care Provider [phone] Reason for Visit * Reason Comments Med Refill Encounter Details Date Type Department Care Team ([facility] st Contact Info) Description 07/13/2023 Refill [facility] MED[facility]INE [address] [place] [address] Ban Granados FNP [address] [place] [address] Social History Tobacco Use Types Packs/Day Years [...] t he electric, gas, oil or water [email or web address] threatened to shut off services in your [...] 3:57 PM EDT Pt came into the [facility] asking for refills on Wegomy meds. She wants Dr. Granados to send the refill in two days to be able to continuous pickling line pickler in pharmacy. 07/13/23 documented in this encounter Plan of Treatment Upcoming Encounters Date Type Department Care Team (Late st Contact Info) Description 07/06/2024 9:00 AM EDT Office Visit [facility] ADULT DENTAL [address] [place] [address] Ayan Calvin, RAMIREZ [address] [place] [address] 07/17/2024 11:30 AM EDT Office Visit [facility] MED[facility] [address] [place] [address] Name, MD Gregg 230 [place] [address] 09/21/2024 8:00 AM EDT Office Visit [facility] ADULT DENTAL [address] [place] [address] Faye Mi documented as of this encounter Visit Diagnoses Not on filedocumented in this encounter Additional Health Concerns Assessment Noted Time PHQ-9 Depression Total Score: 7 03/04/19 23 9:17 AM EST documented as of this encounter Care Teams Converter Operator Relationship Specialty Start Date End Date Gregg Gandhi MD [address] [place] [address] PCP - General Family Medicine 04/16/15 [facility] 05/23/24 documented as of this encounter
== END 2024-06-07 09:27 | disposition home or self-care (01) ==
LOC: HO.XRAY 09:26
PROVIDERS: PCP Internal Medicine Geriatric Medicine; Visit Provider Anesthesiology
DX: M16.0 Bilateral primary osteoarthritis of hip (principal); M25.551 Pain in right hip; M25.552 Pain in left hip; R30.9 Painful micturition, unspecified; R32 Unspecified urinary incontinence; M54.16 Radiculopathy, lumbar region; M51.369 Other intervertebral disc degeneration, lumbar region without mention of lumbar back pain or lower extremity pain; M46.1 Sacroiliitis, not elsewhere classified
CPT/HCPCS: 73522; 99212

== ENCOUNTER 2024-06-07 09:26 | Outpatient (AMB) | payer OTHER, SELFPAY ==
[2024-06-07 09:45] VITALS: BP 114/72; PULSE 84; O2SAT 100; BMI 30.4
--- NOTE | 2024-06-07 09:45 | MHC.OFFVIS ---
Vital Signs 06/07/24 09:45 Height 5 ft 4 in Weight 177 lb BMI 30.4 BP 114/72 Blood Pressure Location Rt brachial Position Sitting Pulse 84 Pulse Source Pulse Oximeter Pulse Oximetry (%) 100 Oxygen Delivery Method Room Air Intake Visit Reasons: MRI FOLLOW UP Greenhouse Manager Required: No Allergies nalbuphine [From Nubain] Allergy (Severe, Verified 06/07/24 09:45) Anaphylaxis oxycodone Adverse Reaction (Verified 06/07/24 09:45) itchy tramadol Adverse Reaction (Verified 06/07/24 09:45) itchy Medication List - Last Reconciled 06/07/24 by Jannette Cummings, [employer] ENGINEER acetaminophen (Tylenol) 650 mg (2 x 325 mg) PO Q6H PRN albuterol sulfate 90 mcg/actuation (Ventolin HFA) 2 puffs PO Q6H PRN 30 days albuterol sulfate 2.5 mg (3 mL) inhalation Q4H PRN 30 days alendronate 70 mg PO TU amoxicillin-pot clavulanate 875-125 mg 1 tab PO BID azithromycin For 250 mg dose pack: take 500 mg today (day 1), then 250 mg for 4 days (days 2-5) benzonatate 100 mg PO BID PRN celecoxib (Celebrex) 200 mg PO BID 30 days cetirizine 10 mg PO DAILY PRN cholecalciferol (vitamin D3) 25 mcg PO DAILY cyclobenzaprine 10 mg PO Q8H doxepin 75 mg PO BEDTIME estazolam 3 mg PO BEDTIME fluticasone propion-salmeterol 250-50 mcg/dose (Advair Diskus) 1 inh inhalation BID 30 days ibuprofen 800 mg PO Q8H PRN levothyroxine 100 mcg PO DAILY@0600 lidocaine 5% 1 patch topical DAILY lorazepam (Ativan) 1 mg PO DAILY PRN 1 day magnesium oxide 400 mg PO DAILY@1200 meclizine (Dramamine Less Drowsy) 25 mg PO TID PRN methocarbamol 1,500 mg (2 x 750 mg) PO QID PRN omeprazole 40 mg PO DAILY@0630 ondansetron 4 mg PO Q6H PRN oxycodone 5 mg PO Q6H PRN perphenazine 4 mg PO BID@1200,2100 polyethylene glycol 3350 (Miralax) 17 grams PO DAILY prednisone 40 mg (2 x 20 mg) PO DAILY 5 days prednisone 40 mg (2 x 20 mg) PO DAILY 5 days pyridoxine (vitamin B6) 200 mg PO DAILY@1200 semaglutide (weight loss) (Wegovy) 1 mg subcut DAILY sucralfate 1 g PO TID PRN venlafaxine mg PO HPI Comments Details: Mag is back in my office after MRI report was available for us. 1. She complain last time on weakness in bilateral lower extremities and urinary incontinence. I suspected that the patient has spinal stenosis and send her for MRI to rule it out. The results of the spinal stenosis dictated as below. However I do not believe that magnitude of her minimal to moderate spinal canal stenosis can cause any problems with urinary retention or urinary incontinence. I will refer her to Urology. 2. I also will schedule this patient for x-ray of bilateral hip joints. She reports severe pain in the groin more on the right and less on the left. The physical exam positive as below. Intra-articular hip steroid injections were explained to the patient. They will be offered to the patient if there is significant OA hip joints. 3. It looks like that she exhausted all the way of treating her knee pain bilateral. She tried intra-articular knee steroid injections, extensive physical therapy, she is currently receiving hyaluronic acid preparation from orthopedic office intra-articularly. However all of this efforts failed to alleviate her pain. I explained to the patient that 1 of the options she has maybe total knee replacement however the patient is very reluctant to consider this procedure. I offered her then diagnostic bilateral femoral nerve block to prepare her for sprint PNS to treat the pain in bilateral knees.. She insisted on doing this injection under sedation. I explained to her that sedation will be minimal because I want her to stay awake after the procedure and monitor level of the pain in her knees. Prior: complains on pain in the lower back with radiation of the pain into bilateral lower extremities and sensation of the spasticity in bilateral feet and bilateral toes. lying down aggravates her back pain the most. Flexing forward and flexing backwards aggravate her pain however flexing forward aggravate her pain more than flexing backwards. She reports that she fell from the ladder on for back in December of 2023, however her pain did not start then. In May 05, 2024 she reported severe pain and she went to emergency room. She admits that heat alleviates her pain and ice application make her pain worse. She was prescribed gabapentin and cyclobenzaprine to treat her pain. She is also taking Tylenol. She reports minimal help with this medications. She can not take NSAIDs because she had gastric bypass. Her past medical history significant for hypo thyroidism pseudotumor cerebri she is under care of Dr. Banda from [facility]. Past surgical history significant for history of gastric bypass. She denies smoking cigarettes she denies drinking alcohol she denies drinking soda and caffeinated beverages and she denies recreational drugs. [facility] Medical History Bronchitis Somnolence, daytime Obesity (BMI 30-39.9) Nausea & vomiting Migraine Syncope Pseudotumor cerebri Kidney calculi Crystal arthropathy Right shoulder injury Kidney tumor COVID-19 vaccine administered Thyroid disease Colon polyp Diverticulosis of colon Bronchial asthma Acid reflux Surgical History Status post excision of lipoma (09/10/23) History of esophagogastroduodenoscopy (EGD) History of surgery on wrist History of hysterectomy Previous section Hx laparoscopic cholecystectomy Hx of gastric bypass (03/12/15) Hx of colonoscopy Family History Father Heart disease History of open heart surgery Mother Heart disease Social History Household Members: None Household Members Other:: alone Are you a primary health care facilities inspector to a significant other at home: No Do you presently have visiting nurse or other home services: No Alcohol intake: never Patient Tobacco Use Status: Former Tobacco user Tobacco use type: Cigarette service: No Current occupational status: disabled Review of Systems Const All systems reviewed & are unremarkable except as noted in HPI and below ENT Reports Normal hearing present Neuro Reports Normal hearing present, Denies Abnormal speech present, Denies confusion and Denies Sensory deficit (Neuro) Psych Denies confusion Physical Exam Vital Signs: Last Vital Signs Pulse 84 06/07/24 09:45 BP 114/72 06/07/24 09:45 Pulse Ox 100 06/07/24 09:45 Oxygen Delivery Method Room Air 06/07/24 09:45 BMI result Body Mass Index 30.4 Const General: no acute distress; No confusion Orientation/consciousness: patient oriented x3 and No confusion Eyes General: appearance normal, both eyes and all related structures Pupils: Equal, round and reactive pupils present EOM: EOMs intact bilaterally Neck Neck: Yes full ROM Chest Chest palpation & inspection: normal inspection of the chest Resp Effort & Inspection: normal respiratory effort, able to speak in complete sentences, normal respiratory pattern, no audible wheezes and no cough Cardio Jugular venous distension: no JVD GI Inspection: Yes normal to inspection Back/Spine/Pelvis Other: Flexing forward aggravates her pain less than flexing backwards. Neuro General: patient oriented x3, gait normal and No confusion Cranial nerves: Yes CN's II-XII intact bilaterally, Yes Equal, round and reactive pupils present, Yes Normal hearing present and Yes Ability to bilaterally elevate shoulders present Speech: No Abnormal speech present Gait exam (Neuro): Normal gait present Motor exam (neuro): 5/5 motor strength present throughout Sensory Exam: No Sensory deficit (Neuro) Extrem Other: Lateral rotation of bilateral hips cause severe discomfort in the bilateral groin more on the right and less on the left. On examination of the bilateral knees the deformities are observable and there is tenderness on palpation on anterior surface of bilateral knees. General: No pedal edema Psych Speech and movement: Normal speech and movement present Affect: normal affect Attitude: cooperative Thought process: Normal thought process present Thought content: Normal thought content present Insight: Good insight present (Psych) Judgement: Good judgement present (Psych) Results Reviewed Results Reviewed: MR LUMBAR SPINE WITHOUT CONTRAST CLINICAL INFORMATION: Sacroiliitis, not elsewhere classified. COMPARISON: March 03, 2012. TECHNIQUE: MRI of the lumbar spine was obtained using routine sequences without contrast. FINDINGS: Last rib-bearing vertebra labeled T12. No bone marrow STIR signal abnormality. Multilevel marginal osteophyte formation and disc desiccation more conspicuous at T11-12. Focal hyperintense T2 signal in the posterior intervertebral disc L3-4 and L4-5 S1 likely annular fissure. There is a 1 mm anterolisthesis L3-4 and L1-2 levels. Conus medullaris ends at inferior endplate of T12 with normal signal. T11-12: No disc herniation. No neuroforamina stenosis. Facet joint and ligamentum flavum hypertrophy. T12-L1: Broad-based disc bulging. Facet joint hypertrophy. No compression upon neural elements. L1-2: Broad-based disc bulging. Facet joint and ligamentum flavum hypertrophy. Reduced AP diameter of the thecal sac and the neural foramina. No compression upon neural elements. L2-3: Broad-based disc bulging. Facet joint and ligamentum flavum hypertrophy. Reduced AP diameter of the thecal sac and the neural foramina. No compression upon neural elements. L3-4: Central broad-based disc herniation. Facet joint and ligamentum flavum hypertrophy. Reduced AP diameter of the thecal sac encroaching the neural elements. Bilateral neuroforamina narrowing without compressing the exiting nerve roots. L4-5: Broad-based disc bulging. Facet joint and ligamentum flavum hypertrophy. Reduced AP diameter of the thecal sac encroaching the L5 nerve root on the lateral recesses. Bilateral neuroforamina narrowing encroaching the L4 exiting nerve roots. L5-S1: Broad-based disc bulging. Focal hyperintense T2 signal in the posterior right disc. Reduced AP diameter of the thecal sac encroaching the S1 nerve roots. No neuroforamina stenosis. No prevertebral compartment hematoma, mass or fluid collection. Multifocal hyperintense T2 cystic lesions in the parapelvic kidneys, bilaterally. IMPRESSION: Multilevel thoracolumbar spondylosis more conspicuous at L3-4 and L4-5 and L5-S1 levels resulting in central spinal canal stenosis encroaching the nerve roots on the lateral recesses. Parapelvic renal cysts, bilaterally. Assessment & Plan Assessment & Plan (1) Osteoarthritis of hips, bilateral: Code(s): M16.0 - Bilateral primary osteoarthritis of hip Category: Medical (2) Bilateral hip pain: Code(s): M25.551 - Pain in right hip; M25.552 - Pain in left hip Category: Medical (3) Painful urination: Code(s): R30.9 - Painful micturition, unspecified Category: Medical (4) Urinary incontinence: Code(s): R32 - Unspecified urinary incontinence Category: Medical (5) Radiculopathy, lumbar region: Code(s): M54.16 - Radiculopathy, lumbar region Category: Medical (6) Disc degeneration, lumbar: Code(s): M51.369 - Other intervertebral disc degeneration, lumbar region without mention of lumbar back pain or lower extremity pain Category: Medical (7) Sacroiliitis: Code(s): M46.1 - Sacroiliitis, not elsewhere classified Category: Medical Plan Patient will continue physical therapy. 1. After evaluation of this patient's MRI there was moderate to minimal spinal canal stenosis however I do not believe that the magnitude of the stenosis can cause any urinary or pelvic organ problems. Nevertheless I will refer her to urology because she is complaining on painful urination, incontinence and urinary retention. 2. It looks like that she failed her conservative therapy for bilateral knees. I offered her bilateral diagnostic femoral block in preparation of this patient to perform sprint PNS bilateral. I will do this procedure under sedation. 3. Her complains on pain in bilateral groins very likely result from hip osteoarthritis. I will send her for bilateral hips x-ray today. If it is demonstrating significant osteoarthritis I can offer her intra-articular hip steroid injections. Orders: Orders XR hips CARLEY min 3V Today M16.0 - Bilateral primary osteoarthritis of hip, M25.551 - Pain in right hip, M25.552 - Pain in left hip Referrals Urology Referral R30.9 - Painful micturition, unspecified, R32 - Unspecified urinary incontinence Patient Instructions: I here by testify that I spent 32 minutes in conversation with this patient as well as planning her care and organizing this note. Coding Level of Care Code Est Pt Level 4 (57431) Diagnoses Osteoarthritis of hips, bilateral M16.0 Bilateral hip pain M25.551; M25.552 Painful urination R30.9 Urinary incontinence R32 Radiculopathy, lumbar region M54.16 Disc degeneration, lumbar M51.369 Sacroiliitis M46.1
--- OUTSIDE RECORDS SUMMARY | 2024-06-07 10:26 | XMS_ITS | Encounter Summary ---
Author Organization [employer] Address [address] [facility] [address] [place] [address] Care Team Providers Care Shoulder Pad Molder Name Role Phone Name, Gregg DIAMOND Primary Care Provider [phone] Reason for Visit * Reason Comments Med Refill Encounter Details Date Type Department Care Team ([facility] st Contact Info) Description 08/03/2023 Refill [facility] MEDICINE [address] [place], [place] [id number] Name, MD Gregg [address] [place] [address] Social History Tobacco Use Types Packs/Day Years [...] the past 12 months, has t he [employer] oil or water company threatened to shut [...] Description 07/06/2024 9:00 AM EDT Office Visit [facility] ADULT DENTAL [address] [place] [address] Ayan Calvin DMD [address] [place] [address] 07/17/2024 11:30 AM EDT Office Visit [facility] MEDICINE [address] [place] [address] Name, MD Gregg [address] [place] [address] 09/21/2024 8:00 AM EDT Office Visit [facility] ADULT DENTAL [address] [place] [address] Faye Mi documented as of this encounter Visit Diagnoses Not on filedocumented in this encounter Additional Health Concerns Assessment Noted Time PHQ-9 Depression Total Score: 7 03/04/19 23 9:17 AM EST documented as of this encounter Care Teams Shoulder Pad Molder Relationship Specialty Start Date End Date NameGregg MD [address] [place] [address] PCP - General Family Medicine 04/16/15 [facility] 05/23/24 documented as of this encounter
--- OUTSIDE RECORDS SUMMARY | 2024-06-07 10:26 | XMS_ITS | Encounter Summary ---
Author Organization [employer] Address [address] [place] [address] Care Team Providers Care Supervisor Plate Forming Name Role Phone Name, Gregg DIAMOND Primary Care Provider [phone] Encounter Details Date Type Department Care Team ([facility] st Contact Info) Description 10/21/2023 Telephone [facility] ADULT DENTAL [address] [place] [address] Ayan Calvin, DMD [address] [place] [address] Social History Tobacco Use Types Packs/Day Years [...] 07/06/2024 9:00 AM EDT Office Visit [facility] ADULT DENTAL [address] [place] [address] Ayan Calvin, RAMIREZ [address] [place] [address] 07/17/2024 11:30 AM EDT Office Visit [facility] MEDICINE [address] [place] [address] Name, MD Gregg [address] [place] [address] 09/21/2024 8:00 AM EDT Office Visit [facility] ADULT DENTAL [address] [place] [address] Faye Mi documented as of this encounter Visit Diagnoses Not on filedocumented in this encounter Additional Health Concerns Assessment Noted Time PHQ-9 Depression Total Score: 0 09/01/19 24 10:42 AM EDT documented as of this encounter Care Teams Supervisor Plate Forming Relationship Specialty Start Date End Date Name, MD Gregg [address] [place] [address] PCP - General Family Medicine 04/16/15 [facility] 05/23/24 documented as of this encounter
--- OUTSIDE RECORDS SUMMARY | 2024-06-07 10:26 | XMS_ITS | Encounter Summary ---
Author Organization [employer] Address [address] [facility] 7t [place] [address] Care Team Providers Care Electric Trucker Name Role Phone Name, Gregg DIAMOND Primary Care Provider [phone] Reason for Visit * Reason Onset Date Comments Appointment Request 04/18/2024 Encounter Details Date Type Department Care Team ([facility] st Contact Info) Description 04/18/2024 Telephone [facility] MEDICINE [address] [place] [address] Name, MD Gregg [address] [place] [address] Appointment Request Social History Tobacco Use Types [...] PCP. Pt states will be out of [place] from June 18- as she has an appointment with the oncologist on the and with the neurosurgeon on June 27. documented in this encounter Plan of Treatment Upcoming Encounters Date Type Department Care Team (Late st Contact Info) Description 07/06/2024 9:00 AM EDT Office Visit [facility] ADULT DENTAL [address] [place] [address] Ayan Calvin, RAMIREZ [address] [place] [address] 07/17/2024 11:30 AM EDT Office Visit [facility] MEDICINE [address] [place] [address] Name, MD Gregg [address] [place] [address] 09/21/2024 8:00 AM EDT Office Visit [facility] ADULT DENTAL [address] [place] [address] Faye Mi documented as of this encounter Visit Diagnoses Not on filedocumented in this encounter Additional Health Concerns Assessment Noted Time PHQ-9 Depression Total Score: 0 09/01/19 24 10:42 AM EDT documented as of this encounter Care Teams Electric Trucker Relationship Specialty Start Date End Date Name, MD Gregg [address] [place] [address] PCP - General Family Medicine 04/16/15 [facility] 05/23/24 documented as of this encounter
--- OUTSIDE RECORDS SUMMARY | 2024-06-07 10:26 | XMS_ITS | Encounter Summary ---
Author Organization [employer] Address [address] [facility] [address] [place] [address] Care Team Providers Care Senior Engineering Manager Name Role Phone Name, Gregg DIAMOND Primary Care Provider [phone] Reason for Visit * Reason Comments Med Refill Encounter Details Date Type Department Care Team ([facility] st Contact Info) Description 02/14/2024 Refill [facility] MEDICINE [address] [place], [place] [phone] Name, MD Gregg [address] [place] [address] Social History Tobacco Use Types Packs/Day Years [...] Description 07/06/2024 9:00 AM EDT Office Visit [facility] ADULT DENTAL [address] [place] [address] Ayan Calvin, RAMIREZ [address] [place] [address] 07/17/2024 11:30 AM EDT Office Visit [facility] MEDICINE [address] [place] [address] Name, MD Gregg [address] [place] [address] 09/21/2024 8:00 AM EDT Office Visit [facility] ADULT DENTAL [address] [place] [address] Faye Mi documented as of this encounter Visit Diagnoses Not on filedocumented in this encounter Additional Health Concerns Assessment Noted Time PHQ-9 Depression Total Score: 0 09/01/19 24 10:42 AM EDT documented as of this encounter Care Teams Senior Engineering Manager Relationship Specialty Start Date End Date Name, MD Gregg [address] [place] [address] PCP - General Family Medicine 04/16/15 [facility] 05/23/24 documented as of this encounter
--- OUTSIDE RECORDS SUMMARY | 2024-06-07 10:26 | XMS_ITS | Encounter Summary ---
Author Organization [employer] Address [address] [facility] 7t [place] [address] Care Team Providers Care Magistrate Judge Name Role Phone Name, Gregg DIAMOND Primary Care Provider [phone] Reason for Visit * Reason Onset Date Comments ER Follow-up 05/02/2024 Nurse Triage 05/02/2024 Encounter Details Date Type Department Care Team ([facility] st Contact Info) Description 05/02/2024 Telephone [facility] [address] [place] [address] Name, MD Gregg [address] [place] [address] ER Follow-up; Nurse Triage Social History Tobacco [...] rollator walker. TC placed to [facility] pharamcyregarding the fosamax. Lori states the [...] in June as she will leaving for [place] at the beginning of June Pt requesting a call from PCP. Diamond Powder Technician found telehealth visit in PCP schedule. Pt [...] more information. TC placed to [facility] pharamcy regardingthe fosamax. Lori states the [...] She states that she [place] [facility] [place] due to right leg pain and right knee isswollen. Pt. Was also having throbbing pain in left side of groin. [facility] did not find any blood clot in leg and Xray of left hip and pelvis-negative. ED is recommending referral to Planning Director according to pt. Pt does not want [...] that she remembers. Pt. Needs referral to Planning Director. Offered pt. Appt. Today but, pt. Only wants to speak to pcp and is requesting appt. With PCP only or call from PCP to discuss updates and needs. Please get back to pt. To let her know if any of these needs can be met Will send request to Clinical coordinators to get [facility] [place] from yesterday into pt. Chart. Multiple needs. * Telephone Encounter - Shubham Booth - 05/02/2024 10:20 AM EDT Patient calling to report ED visit on : Date: 05/01/2024 Hospital[place] [facility] Seen for: Knee pain [...] 9:00 AM EDT Office Visit [facility] D[facility] [address] [place] [phone] Ayan Calvin DMD [address] [place] [address] 07/17/2024 11:30 AM EDT Office Visit [facility] MED[facility] [address] [place] [phone] Name, MD Gregg [address] [place] [address] 09/21/2024 8:00 AM EDT Office Visit [facility] [address] [place] [phone] Faye Mi documented as of this encounter Visit Diagnoses Not on filedocumented in this encounter Additional Health Concerns Assessment Noted Time PHQ-9 Depression Total Score: 0 09/01/19 24 10:42 AM EDT documented as of this encounter Care Teams Magistrate Judge Relationship Specialty Start Date End Date Name, MD Gregg [address] [place] [address] PCP - General Family Medicine 04/16/15 [facility] 05/23/24 documented as of this encounter
--- OUTSIDE RECORDS SUMMARY | 2024-06-07 10:26 | XMS_ITS | Encounter Summary ---
Author Organization [employer] Address [address] [facility] [address] [place] [address] Care Team Providers Care Head Boys Golf Coach Name Role Phone Name, Gregg DIAMOND Primary Care Provider [phone] Reason for Visit * Reason Onset Date Comments PT1 07/27/2023 Encounter Details Date Type Department Care Team ([facility] st Contact Info) Description 07/27/2023 Telephone [facility] MEDICINE [address] [place] [address] Name, MD Gregg [address] [place] [address] PT1 Social History Tobacco Use Types Packs/Day [...] name: Dr. Carson Smith MD Facility Address: [address] [place] [address] [address], [facility], [address] Escort needed: Y/N: No Do you have a wheelchair: Y/N: No If yes- Manual or electric: Visits: 2-3 Next upcoming appt 08/03/23 documented in this encounter Plan of Treatment Upcoming Encounters Date Type Department Care Team (Late st Contact Info) Description 07/06/2024 9:00 AM EDT Office Visit [facility] ADULT DENTAL [address] [place] [address] Ayan Calvin DMD [address] [place] [address] 07/17/2024 11:30 AM EDT Office Visit [facility] [address] [place] [address] Name, MD Gregg [address] [place], [place] [id number] 09/21/2024 8:00 AM EDT Office Visit [facility] [address] [place] [address] Faye Mi documented as of this encounter Visit Diagnoses Not on filedocumented in this encounter Additional Health Concerns Assessment Noted Time PHQ-9 Depression Total Score: 7 03/04/19 23 9:17 AM EST documented as of this encounter Care Teams Head Boys Golf Coach Relationship Specialty Start Date End Date Name, MD Gregg [address] [place] [address] PCP - General Family Medicine 04/16/15 [facility] 05/23/24 documented as of this encounter
--- OUTSIDE RECORDS SUMMARY | 2024-06-07 10:26 | XMS_ITS | Encounter Summary ---
Author Organization [employer] Address [address] [facility] [address] [place] [address] Care Team Providers Care Systems Manager Name Role Phone Name, Gregg DIAMOND Primary Care Provider [phone] Reason for Visit * Reason Onset Date Comments Request For Order(s) 07/30/2023 Encounter Details Date Type Department Care Team ([facility] st Contact Info) Description 07/30/2023 Telephone [facility] [address] [place], [place] [phone] Name, MD Gregg [address] [place] [address] Request For Order(s) Social History Tobacco Use [...] done. Please clarify Please contact pt at [phone] (No work car operator needed) documented in this encounter Plan of Treatment Upcoming Encounters Date Type Department Care Team (Late st Contact Info) Description 07/06/2024 9:00 AM EDT Office Visit [facility] [address] [place] [address] Ayan Calvin DMD [address] [place] [address] 07/17/2024 11:30 AM EDT Office Visit [facility] [address] [place] [phone] Name, MD Gregg [address] [place] [address] 09/21/2024 8:00 AM EDT Office Visit [facility] [address] [place] [address] Faye Mi documented as of this encounter Visit Diagnoses Not on filedocumented in this encounter Additional Health Concerns Assessment Noted Time PHQ-9 Depression Total Score: 7 03/04/19 23 9:17 AM EST documented as of this encounter Care Teams Systems Manager Relationship Specialty Start Date End Date NameGregg MD [address] [place] [address] PCP - General Family Medicine 04/16/15 [facility] 05/23/24 documented as of this encounter
--- OUTSIDE RECORDS SUMMARY | 2024-06-07 10:26 | XMS_ITS | Encounter Summary ---
Author Organization [employer] Address [address] [facility] [address] [place] [address] Care Team Providers Care Dairy Products Maker Name Role Phone Name, Gregg DIAMOND Primary Care Provider [phone] Reason for Visit * Reason Onset Date Comments clarification of tx 08/09/2023 Encounter Details Date Type Department Care Team (Late st Contact Info) Description 08/09/2023 Telephone [facility] [address] [place] [address] Ayan Calvin, DMD [address] [place] [address] clarification of tx Social History Tobacco Use [...] you to call her. She went to [facility] for RCT today but is looking [...] Office Visit [facility] [address] [place] [address] Ayan Calvin, RAMIREZ [address] [place] [address] 07/17/2024 11:30 AM EDT Office Visit [facility] [address] [place] [address] Name, MD Gregg [address] [place] [address] 09/21/2024 8:00 AM EDT Office Visit [facility] [address] [place] [address] Faye Mi documented as of this encounter Visit Diagnoses Not on filedocumented in this encounter Additional Health Concerns Assessment Noted Time PHQ-9 Depression Total Score: 7 03/04/19 23 9:17 AM EST documented as of this encounter Care Teams Dairy Products Maker Relationship Specialty Start Date End Date Name, MD Gregg [address] [place] [address] PCP - General Family Medicine 04/16/15 [facility] 05/23/24 documented as of this encounter
--- OUTSIDE RECORDS SUMMARY | 2024-06-07 10:27 | XMS_ITS | Encounter Summary ---
Author Organization [employer] [facility] Address [address] [facility] 7t [place] [address] Care Team Providers Care Utility Operator Name Role Phone Name, Gregg DIAMOND Primary Care Provider [phone] Encounter Details Date Type Department Care Team (Late st Contact Info) Description 01/14/2022 Abstract [facility] [address] [place] [address] Dental, Provider, DDS Social History Tobacco Use [...] Office Visit [facility] [address] [place] [address] Ayan Calvin DMD [address] [place] [address] 07/17/2024 11:30 AM EDT Office Visit [facility] [address] [place] [address] Gregg Gandhi MD [address] [place] [address] 09/21/2024 8:00 AM EDT Office Visit [facility] [address] [place] [address] Mi, Faye documented as of this encounter [...] on filedocumented in this encounter Care Teams Utility Operator Relationship Specialty Start Date End Date Name, MD Gregg [address] [place] [phone] PCP - General Family Medicine 04/16/15 [facility] 05/23/24 documented as of this encounter
--- OUTSIDE RECORDS SUMMARY | 2024-06-07 10:27 | XMS_ITS | Data Portability ---
Author Organization [employer] Address [address] [place] [address] Care Team Providers Care Automotive Glazier Name Role Phone HIM CCA OTHER NAME, CUAUHTEMOC Primary Care Provider Assessment Encounter Date Assessment Date Assessment LastModified by Organization Details LastModified Time 03/30/2024 03/30/2024 service called for unusual rash found 74 marcail with hx HTN COPD c/o sudden appearance [...] Assessment and Plan as documented by the Manager Training And Development. I provided real-time medical direction via phone [...] supportive care and avoidance of constipation/str aining. Manager Training And Development checked COVID flu and strep tests which [...] Assessment and Plan as documented by the Manager Training And Development. We discussed the diagnostic uncertainty of home [...] call 911- she verbalized understanding of instructions [email or web address] Not available 05/19/2024 13:50:42 Plan of Treatment Reminders Order Date Submit Date Provider Last Modified By Organization Details Last Modified Time Details Appointments None recorded. Lab rapid SARS CoV 2 Ag, QL IA, respiratory specimen [address], [address] [place] [address] 5 20:05:02 rapid flu (A+B) [address], [id number] 5 20:05:02 rapid strep group A, throat [address], [address] 5 20:05:03 rapid SARS CoV 2 Ag, QL IA, respiratory specimen [address], [id number] 4 08:33:11 rapid flu (A+B) [address], [id number] 4 08:33:54 Referral None recorded. Procedures None recorded. Surgeries None recorded. Imaging None recorded. Medication Orders acetaminoph en 325 mg tablet 2023 024 [facility], [address] [place] [address], [id number], 11:54:22 acetaminoph en 500 mg tablet 2023 024 [email or web address] [facility], [address] [place] [address], [id number], 19:28:30 Patient TargetsNo targets recorded. Patient InstructionsNo [...] Name and Address Organization Details Recorded Time 98223 Nubain medicatio n Not available Not available Not available 05/19/2024 7550 RxNorm Christina Ashford MD [address] [place] [address],[address], [place], [address], 3225 films 13:03:23 45168 ketorolac medicatio n vomiting Not available Not available 05/19/2024 25850 RxNorm Christina Ashford MD [address] [place] [address],[address], [place], [address], 3225 films 13:03:50 Medications Name Sig Start Date Stop [...] Address Organization Details Last Updated DateTime 5 53656.6 g 100 % 100 % 75 /min 157.48 cm 14 /min 98 [degF] 131 mm[Hg] 75 mm[Hg] Not Available [employer] - production 5 19:36:31 Date Recorded Oxygen saturation Oxygen saturation in Arterial blood by Pulse oximetry Heart rate Body temperature Respiratory rate Body height Body weight Systolic blood pressure Diastolic blood pressure Provider Name and Address Organization Details Last Updated DateTime 5 100 % 100 % 91 /min 98.6 [degF] 19 /min 160.02 cm 63020.0 08 g 110 mm[Hg] 71 mm[Hg] Not Available [employer] 5 21:41:12 Date Recorded Respiratory rate Body temperature Oxygen saturation Oxygen saturation in Arterial blood by Pulse oximetry Heart rate Systolic blood pressure Diastolic blood pressure Provider Name and Address Organization Details Last Updated DateTime 5 20 /min 97.9 [degF] 97 % 97 % 100 /min 138 mm[Hg] 76 mm[Hg] Not Available [employer] 5 15:18:17 Date Recorded Body temperature Heart rate Body weight Body height Oxygen saturation Oxygen saturation in Arterial blood by Pulse oximetry Respiratory rate Systolic blood pressure Diastolic blood pressure Provider Name and Address Organization Details Last Updated DateTime 5 97.6 [degF] 96 /min 77843.1 92 g 160.02 cm 97 % 97 % 19 /min 106 mm[Hg] 72 mm[Hg] Not Available [employer] 5 12:56:43 Social History None recorded. Functional Status None recorded. Mental Status None recorded. Family History Nothing Reported. Medical History No medical history recorded. Gynecological HistoryNo gynecological history recorded. Obstetrics History GPAL:G 0 P 0 0 0 0 Past Encounters Encounter ID Performer Location Encounter Start Date Encounter Closed Date Diagnosis/Indication Diagnosis SNOMED-CT Code Diagnosis ICD10 Code Diagnosis Note [id number] Abran Hayward MD Main - [facility] [address] [place] [id number] 01/31/2024 14:50:58 01/31/2024 16:04:33 [id number] Jameel Haddad MD Main - [facility] [address] [place] [phone] 02/03/2024 19:16:36 02/03/2024 22:59:01 Viral upper respiratory tract infection 789931418 J06.9 S/p treatment for bronchitis with Azithromyc in. Negative COVID/flu test. Able to maintain PO hydration. Discussed red flag signs for which to seek higher level of care. [id number] Rick Hartmann MD Main - [facility] [address] [place] [phone] 02/24/2024 19:36:29 02/24/2024 20:10:20 Diarrhea 59560190 R19.7 As noted, we were called to see this patient regarding concerns of gastroente ritis symptoms. Evaluation in the field was performed by my reading recovery teacher colleague, as noted above, I provided real-time [...] significan t hematochez ia, non-resolv ing diarrhea. [id number] Loki Barajas MD Main - [facility] [address] [place] [id number] 03/30/2024 21:41:10 03/31/2024 15:17:43 Localized eruption of skin 587664589 R21 [id number] Cody Spicer MD Main - [facility] [address] [place] [phone] 05/04/2024 15:18:09 05/04/2024 20:57:19 Abdominal pain 38676487 R10.9 [id number] Christina Ashford MD Main - [facility] [address] [place] [address] 05/19/2024 12:56:41 05/19/2024 14:17:51 Osteoarthritis of multiple joints 285355737 M15.9 advised ice / wrapped in a [...] makes her feel Chronic pain syndrome 37 3176285 G89.4 Explained to patient we cannot offer [...] Schrader Member ID Guarantor Name 02/03/2024 1 [facility] - DOS ON OR AFTER 2022 - DUAL ELIGIBLE - LONG-TERM OPTIONS AND ONE CARE (MEDICARE REPLACEMENT/ADV ANTAGE - HMO) Mag Ayala [id number] Mag Valdeza 02/24/2024 1 [facility] - DOS ON OR AFTER 2022 - DUAL ELIGIBLE - LONG-TERM OPTIONS AND ONE CARE (MEDICARE REPLACEMENT/ADV ANTAGE - HMO) Mag Ayala [id number] Mag Valdeza 03/30/2024 1 [facility] - DOS ON OR AFTER 2022 - DUAL ELIGIBLE - LONG-TERM OPTIONS AND ONE CARE (MEDICARE REPLACEMENT/ADV ANTAGE - HMO) Mag Ayala [id number] Mag Ayala 05/04/2024 1 [facility] - DOS ON OR AFTER 2022 - DUAL ELIGIBLE - LONG-TERM OPTIONS AND ONE CARE (MEDICARE REPLACEMENT/ADV ANTAGE - HMO) Mag Ayala [id number] Mag Ayala 05/19/2024 1 [facility] - DOS ON OR AFTER 2022 - DUAL ELIGIBLE - LONG-TERM OPTIONS AND ONE CARE (MEDICARE REPLACEMENT/ADV ANTAGE - HMO) Mag Ayala [id number] Mag Ayala Notes Date Note Type Note [...] (GERD), Sleep Apnea Comments: HPI reviewed- NE Manager Training And Development Organization Information for Gurpreet Wilson Business Legal Name: [employer]? Address: [address] [place] [address], Sodium Methylate Operator: Rich ENCARNACION No.: [id number] Manager Training And Development POC Test Results from Gurpreet Wilson Rapid COVID antigen (19:18:27) COVID: - Rapid influenza antigen (19:18:29) Flu: - ...................... ...................... ...................... ...................... ...................... ...................... ......... Manager Training And Development Note From Gurpreet Wilson: Dispatched to the [...] ...................... ...................... ...................... ...................... ...................... ......... [facility] Consulted: Surya Haddad ...................... ...................... ...................... ...................... ...................... ...................... ......... Disposition: Fulfilled Jameel Haddad MD [address] [place] [address],[address] [facility], [place], [address], [facility] - [employer] 02/03/2024 20:53:56 02/24/2024 text/html HPI: Franko is [...] Mbr agreed with plan. Confirmed address and phone/[phone]. ...................... ...................... ...................... ...................... ...................... ...................... ......... CRC Nurse Triage Notes (Farrah Richards - RN): Chief Complaints: Dehydration, Diarrhea, Fatigue, Headache, Nausea, Weakness PMH: Anxiety Disorder, Asthma, Chronic Pain, Depression, Osteoporosis, Hypothyroidism, Gastroesophageal Reflux Disease (GERD), Sleep Apnea PMH Reviewed at 02/24/2024 14:38 Allergies Reviewed at 02/24/2024 - 14:38 Comments: Reviewed referral and no further info needed. Oracio TORRES Manager Training And Development Organization Information for Dionicio Hawkins Business Legal Name: [facility] Address: [address] [place] [address], [place] [address], Sodium Methylate Operator: Chase Parker MD CLIA No.: [id number] Manager Training And Development POC Test Results from Dionicio Hawkins Rapid COVID antigen (15:44:40) COVID: - Rapid influenza antigen (15:44:41) Flu: - ...................... ...................... ...................... ...................... ...................... ...................... ......... Manager Training And Development Note From Ross Dionicio: Patient alert and [...] for Covid and flu via rapid POC. [facility] advises possible GI virus, continue hydration, follow BRAT diet, use Tylenol for headache as directed. Red flags, patient education discussed. ...................... ...................... ...................... ...................... ...................... ...................... ......... [facility] Consulted: Randall Hartmann ...................... ...................... ...................... ...................... ...................... ...................... ......... Disposition: Fulfilled Rick Hartmann MD [address] [facility],[address], [place], [address], LYLY NILAY SARANYA 02/24/2024 19:48:21 03/30/2024 text/html [...] Will place referral for workup Oracio TORRES Manager Training And Development Organization Information for DevaughnKody Silvestre GLADIS Business Legal Name: [employer]? Address: [address] [place] [address], Sodium Methylate Operator: Rich Pillai MD [facility] No.: [id number] Manager Training And Development POC Test Results from Kody Cantor Rapid influenza antigen (21:36:11) Flu: - Rapid COVID antigen (21:36:12) COVID: - ...................... ...................... ...................... ...................... ...................... ...................... ......... Manager Training And Development Note From Kody Cantor: Dispatched to above [...] Covid/influenza. No edema in the lower extremity [facility] contacted. [facility] ordered the pt to monitor her temp/cough/flu like symptoms, and if symptoms get worse then to either call back/call pcp/call 911. [facility] added to keep taking Tylenol as needed. Pt stated that she understood and stated that she was feeling a little better after taking Tylenol. Crew cleared from call. All times approximate. ...................... ...................... ...................... ...................... ...................... ...................... ......... [facility] Consulted: Loki Barajas ...................... ...................... ...................... ...................... ...................... ...................... ......... Disposition: Fulfilled Loki Barajas MD [address] [place] [address],[address], [place], [address], [employer] 03/31/2024 00:03:57 05/04/2024 text/html CRC Nurse Triage [...] to get an urgent appt with a communications coordinator. Patient was in the bath last night, [...] get support and advice from medic and [facility]. Manager Training And Development Organization Information for Beto Nowak Legal Name: [employer] Address: [address] [place] [address], Sodium Methylate Operator: Rich Pillai MD CLIA No.: [id number] Manager Training And Development POC Test Results from Slowinski, Beto - [...] ...................... ...................... ...................... ...................... ...................... ...................... ......... Manager Training And Development Note From Beto Nowak: Dispatched to above [...] spoke with her PCP who recommended seeing machine wiper prior to using preparation H, also reporting [...] strep test checked, all negative, results uploaded. [facility] contacted, spoke with Dr. Spicer, advised of patient complaints, exam findings and test results. [facility] SC8 and patient had a lengthy discussion, patient states she would feel uncomfortable staying at home, requested and ambulance to the ER for further evaluation. 911 contacted, [place] ambulance responded, verbal report given to [place] EMT, took over patient care, will transport to [facility]. SC8 clear. EOR. ...................... ...................... ...................... ...................... ...................... ...................... ......... [facility] Consulted: Cody Spicer ...................... ...................... ...................... ...................... ...................... ...................... ......... Disposition: Fulfilled Cody Spicer MD [address] [place] [address],[address], [place], [address] [employer] 05/04/2024 17:00:46 05/19/2024 text/html CRC Nurse Triage [...] ...................... ...................... ...................... ...................... ...................... ...................... ......... Manager Training And Development Note From Jose Small: Pt chief complaint [...] will not use her prescribed oxycodone. [facility] Christina Ashford consulted. Pt [...] ...................... ...................... ...................... ...................... ...................... ......... [facility] Consulted: Christina Ashford ...................... ...................... ...................... ...................... ...................... ...................... ......... Disposition: Fulfilled Christina Ashford MD [address] [facility],[address], [place], [address], [employer] 05/19/2024 13:51:23 OBGyn Episode No OBEpisode recorded.
--- OUTSIDE RECORDS SUMMARY | 2024-06-07 10:27 | XMS_ITS | Encounter Summary ---
Author Organization [employer] Address [address] [facility] [address] [place] [address] Care Team Providers Care Jd Edwards Name Role Phone Name, Gregg DIAMOND Primary Care Provider [phone] Reason for Visit * Reason Onset Date Comments Durable Medical Equipment 06/02/2024 Encounter Details Date Type Department Care Team (Late st Contact Info) Description 06/02/2024 Telephone [facility] MEDICINE [address] [place] [address] Name, MD Gregg [address] [place] [address] Durable Medical Equipment Social History Tobacco Use [...] * Telephone Encounter - Valentina Beltran - 06/02/2024 2:21 PM EDT DME SWO for Shower chair , Walker, and wedge cushion from [facility] placed on PCP desk for signature. documented in this encounter Plan of Treatment Upcoming Encounters Date Type Department Care Team (Late st Contact Info) Description 07/06/2024 9:00 AM EDT Office Visit [facility] ADULT DENTAL [address] [place] [address] Ayan Calvin DMD [address] [place] [address] 07/17/2024 11:30 AM EDT Office Visit [facility] MEDICINE [address] [place] [address] Name, MD Gregg [address] [place] [address] 09/21/2024 8:00 AM EDT Office Visit [facility] ADULT DENTAL [address] [place] [address] Faye Mi documented as of this encounter Visit Diagnoses Not on filedocumented in this encounter Additional Health Concerns Assessment Noted Time PHQ-9 Depression Total Score: 0 09/01/19 24 10:42 AM EDT documented as of this encounter Care Teams Jd Edwards Relationship Specialty Start Date End Date Name, MD Gregg [address] [place] [address] PCP - General Family Medicine 04/16/15 [facility] 05/23/24 documented as of this encounter
--- OUTSIDE RECORDS SUMMARY | 2024-06-07 10:27 | XMS_ITS | Encounter Summary ---
Author Organization [employer] Address [address] [place] [address] Care Team Providers Care Precast Concrete Ironworker Name Role Phone Name, Gregg DIAMOND Primary Care Provider Reason for Visit * Reason Onset Date Comments Nurse Triage 11/27/2022 Encounter Details Date Type Department Care Team ([facility] st Contact Info) Description 11/27/2022 Telephone [facility] MEDICINE [address] [place] [address] Name, MD Gregg [address] [place] [address] Nurse Triage Social History Tobacco Use Types [...] caller accepted this outcome Does not need manager beverage . documented in this encounter Plan of Treatment Upcoming Encounters Date Type Department Care Team (Late st Contact Info) Description 07/06/2024 9:00 AM EDT Office Visit [facility] ADULT DENTAL [address] [place] [address] Ayan Calvin DMD [address] [place] [address] 07/17/2024 11:30 AM EDT Office Visit [facility] MEDICINE [address] [place] [address] Name, MD Gregg [address] [place] [address] 09/21/2024 8:00 AM EDT Office Visit [facility] ADULT DENTAL [address] [place] [address] Faye Mi documented as of this encounter Visit Diagnoses Not on filedocumented in this encounter Additional Health Concerns Assessment Noted Time PHQ-9 Depression Total Score: 7 03/04/19 23 9:17 AM EST documented as of this encounter Care Teams Precast Concrete Ironworker Relationship Specialty Start Date End Date Name, MD Gregg [address] [place] [address] PCP - General Family Medicine 04/16/15 [facility] 05/23/24 documented as of this encounter
--- OUTSIDE RECORDS SUMMARY | 2024-06-07 10:27 | XMS_ITS | Encounter Summary ---
Author Organization [employer] [facility] Address [address] [facility] [address]t [place] [address] Care Team Providers Care Director Sales Support Name Role Phone Name, Gregg DIAMOND Primary Care Provider [phone] Encounter Details Date Type Department Care Team (Latest Contact Info) Description 09/27/2018 Abstract [facility] CONVERSIONS Dental, Provider, DDS Social History Tobacco [...] 9:00 AM EDT Office Visit [facility] ADULT DENTAL [address] [place] [address] Ayan Calvin DMD [address] [place] [address] 07/17/2024 11:30 AM EDT Office Visit [facility] MEDICINE [address] [place] [address] Name, MD Gregg [address] [place] [address] 09/21/2024 8:00 AM EDT Office Visit [facility] ADULT DENTAL [address] [place] [address] Faye Mi documented as of this encounter Visit Diagnoses Not on filedocumented in this encounter Care Teams Director Sales Support Relationship Specialty Start Date End Date Name, MD Gregg [address] [place] [address] PCP - General Family Medicine 04/16/15 [facility] 05/23/24 documented as of this encounter
--- OUTSIDE RECORDS SUMMARY | 2024-06-07 10:27 | XMS_ITS | Encounter Summary ---
Author Organization [employer] Address [address] [place] [address] Care Team Providers Care Utility Engineer Name Role Phone Name, Gregg DIAMOND Primary Care Provider [phone] Reason for Visit * Reason Comments Med Refill Encounter Details Date Type Department Care Team ([facility] st Contact Info) Description 07/13/2023 Refill [facility] MEDICINE [address] [place] [address] aBn Granados FNP [address] [place] [address] Social History Tobacco Use Types Packs/Day Years [...] t he electric, gas, oil or water [employer] threatened to shut off services in your [...] 3:57 PM EDT Pt came into the [facility] asking for refills on Wegomy meds. She wants Dr. Granados to send the refill in two days to be able to curing pickling packer in pharmacy. 07/13/23 documented in this encounter Plan of Treatment Upcoming Encounters Date Type Department Care Team (Late st Contact Info) Description 07/06/2024 9:00 AM EDT Office Visit [facility] ADULT DENTAL [address] [place] [address] Ayan Calvin, RAMIREZ [address] [place] [address] 07/17/2024 11:30 AM EDT Office Visit [facility] MEDICINE [address] [place] [address] Name, MD Gregg [address] [place] [address] 09/21/2024 8:00 AM EDT Office Visit [facility] ADULT DENTAL [address] [place] [address] Faye Mi documented as of this encounter Visit Diagnoses Not on filedocumented in this encounter Additional Health Concerns Assessment Noted Time PHQ-9 Depression Total Score: 7 03/04/19 23 9:17 AM EST documented as of this encounter Care Teams Utility Engineer Relationship Specialty Start Date End Date Gregg Gandhi MD [address] [place] [address] PCP - General Family Medicine 04/16/15 [facility] 05/23/24 documented as of this encounter
--- OUTSIDE RECORDS SUMMARY | 2024-06-07 10:27 | XMS_ITS | Encounter Summary ---
Author Organization [employer] Address [address] [place] [address] Care Team Providers Care Debit Agent Name Role Phone Name, Gregg DIAMOND Primary Care Provider [phone] Reason for Visit * Reason Comments Med Refill Encounter Details Date Type Department Care Team ([facility] st Contact Info) Description 11/16/2023 Refill [facility] [address] [place], [place] [phone] Yennifer Ramirez MD [address] [place] [address] Flu-like symptoms Social History Tobacco Use Types [...] Description 07/06/2024 9:00 AM EDT Office Visit [facility] ADULT DENTAL [address] [place] [address] Ayan Calvin DMD [address] [place] [address] 07/17/2024 11:30 AM EDT Office Visit [facility] MEDICINE [address] [place] [address] Name, MD Gregg [address] [place] [address] 09/21/2024 8:00 AM EDT Office Visit [facility] ADULT DENTAL [address] [place] [address] Faye Mi documented as of this encounter Visit Diagnoses Diagnosis Flu-like symptoms documented in this encounter Additional Health Concerns Assessment Noted Time PHQ-9 Depression Total Score: 0 09/01/19 24 10:42 AM EDT documented as of this encounter Care Teams Debit Agent Relationship Specialty Start Date End Date Name, MD Gregg [address] [place] [address] PCP - General Family Medicine 04/16/15 [facility] 05/23/24 documented as of this encounter
--- OUTSIDE RECORDS SUMMARY | 2024-06-07 10:27 | XMS_ITS | Clinical Summary ---
Author Organization [employer] Address 75 [facility] 7t [place] [address] Care Team Providers Care Felt Cementer Name Role Phone Name, Gregg DIAMOND Primary Care Provider [phone] Allergies Active Allergy Reactions Criticality Noted Date [...] 2 sprays each nostril bid prn rhinorrhea, tajik 15 mL 12/07/19 24 Active doxepin (SINEquan) [...] AT NOON 90 tablet 05/04/19 25 Active Lidocaine (HM Lidocaine Patch) 4 % patch Apply once a day to affected area of the low back 30 patch 3 05/24/19 25 Active hydroCHLOROthia zide 12.5 MG tablet TAKE 1 TABLET BY MOUTH EVERYDAY AT NOON 90 tablet 3 05/25/19 25 Active Tirzepatide-Eddie ght Management (Zepbound) 10 MG/0.5ML solution auto-injector Inject 0.5 mL (10 mg) under the skin 1 (one) time per week. 2 mL 2 06/03/19 25 025 Active ondansetron (Zofran) 4 MG tablet Take 1 tablet (4 mg) by mouth if needed each day for nausea or vomiting. 20 tablet 05/25/19 24 025 hydroCHLOROthia zide (HYDRODiuril) 12.5 MG tablet Take 1 tablet (12.5 mg) by mouth Once per day. 90 tablet 3 06/07/19 24 025 Discontinued Lidocaine (HM Lidocaine Patch) [...] Discontinued(Do se adjustment) Tirzepatide 10 MG/0.5ML solution auto-injectorIn dications:Class 1 obesity Inject 0.5 mL under the skin 1 (one) time per week. Inject under the skin one time per week 2 mL 11 05/09/19 25 025 Discontinued(Do se adjustment) Tirzepatide-Eddie ght Management (Zepbound) 7.5 MG/0.5ML solution auto-injector Inject 0.5 mL (7.5 mg) under the skin 1 (one) time per week. 2 mL 3 05/11/19 25 025 Discontinued(Do se adjustment) Active Problems [...] is already in the process of seeing [facility] Plan: Increase fluids, pain [...] range. Recent lab work not available contacted [facility] for results. Will renew medications at the [...] Encounters Date Type Department Care Team Description 06/02/2024 Telephone [facility] [address] [place], [place] [address] [address] Gregg Gandhi MD Durable Medical Equipment 06/02/2024 Telephone [facility] [address] [place] [address] Gregg Gandhi MD Med Refill 05/25/2024 Telephone [facility] [address] [place] [address] Sweta Giraldo [place] Appointment Request 05/24/2024 Telephone [facility] [address] [place], [place] [address] [address] Gregg Gandhi MD Appointment Request 05/24/2024 Telephone C [facility] [address] [place] [address] Gregg Gandhi MD 05/24/2024 Refill [facility] [address] [place] [address] Ban Granados FNP 05/23/2024 Telephone [place] [address] Gregg Gandhi MD call back needed 05/23/2024 Telephone [facility] [address] [place] [address] Gregg Gandhi MD Speak to PCP 05/23/2024 Refill C [facility] [address] [place] [address] Gregg Gandhi MD 05/22/2024 Patient Outreach [address] [address] Gregg Gandhi MD Transition Of Care (Tcm) 05/22/[address] [address] Gregg Gandhi MD verbal order 05/18/[address] [address] Gregg Gandhi MD Nurse Triage 05/15/[address] [address] Gregg Gandhi MD Durable Medical Equipment; Call Back Request 05/12/2024 9:00 AM EDT Office Visit [facility] [address] [place] [address] Ayan Calvin DMD 05/09/[address] [address] Natalie Nathan, BRIAN 05/08/2024 11:15 AM EDT Office Visit [address] [address] Gregg Gandhi MD Diverticulitis (Primary Dx); Left hip pain 05/08/[address] [address] Gregg Gandhi MD Class 1 obesity (Primary Dx) 05/08/2024 Travel 05/05/[address] [address] Gregg Gandhi MD Durable Medical Equipment 05/05/2024 Patient Outreach [address] [address] Gregg Gandhi MD Transition Of Care (Tcm) 05/04/[address] [address] Gregg Gandhi MD Nurse Triage 05/03/2024 2:15 PM EDT Telemedicine [address] [address] Gregg Gandhi MD Right knee pain, unspecified chronicity (Primary Dx); Osteoarthritis of right knee, unspecified osteoarthritis type; Obesity (BMI 30-39.9) 05/03/2024 Travel 05/03/2024 Telephone [facility] [address] [place] [address] Gregg Gandhi MD Return Call 05/03/[address] [address] [place], [place], ASSISTED LIVING COORDINATOR Osteoporosis, unspecified osteoporosis type, unspecified pathological fracture presence 05/02/[address] [address] Gregg Gandhi MD ER Follow-up; Nurse Triage 05/01/2024 9:00 AM EDT Office Visit [facility] [address] [place] [address] Ayan Calvin, RAMIREZ 05/01/2024 Orders Only [facility] External Provider, [facility] 05/01/[address] [address] Gregg Gandhi MD Prior Authorization (Lidocaine ) 04/19/2024 Travel 04/19/[address] [address] Sweta Giraldo [place] Appointment Request 04/18/[address] [address] Gregg Gandhi MD Appointment Request 04/10/2024 2:00 PM EST Office Visit [facility] [address] [place] [address] Sore throat (Primary Dx); Right ear pain 04/10/2024 10:30 AM EST Office Visit [facility] [address] [place] [address] Ayan Calvin, DMD 04/10/[address] [address] Gregg Gandhi MD 03/29/[address] [address] Gregg Gandhi MD Durable Medical Equipment 03/22/[address] [address] Gregg Gandhi MD Medication Question 03/20/2024 Refill [facility] [address] [place] [address] Name, MD Gregg Osteoporosis, unspecified osteoporosis type, unspecified pathological fracture presence 03/14/2024 Refill [facility] [address] [place] [address] Name, MD Gregg Bariatric surgery status 03/10/2024 10:30 AM EST Office Visit [facility] [address] [place] [address] Ayan Calvin DMD from Last 3 Months Immunizations Name Administration [...] Visit [facility] [address] [place], [place] [phone] Ayan Calvin, RAMIREZ [address] [place] [address] 07/17/2024 11:30 AM EDT Office Visit [facility] [address] [place] [address] Name, MD Gregg [address] [place], [place] [phone] 09/21/2024 8:00 AM EDT Office Visit [facility] [address] [place], [place] [phone] Faye Mi Health Maintenance Due Date Last [...] EDT Narrative 06/01/2024 8:01 AM EDT ? [facility] ?[address] ?[place] [address] ? Magnetic Resonance Report ? Signed ? Patient: Ayala,Mag ?MR#: [id number] ?? 4 ? : 1960 ?Acct:[id number] ? Age/Sex: 63 / F ?ADM Date: 04/16/25 ? Loc: HO.MRI ? Attending Dr: Dimitrios Tatum MD ? Ordering Physician: Dimitrios Tatum MD ?? Date of Service: 05/31/24 ?? Procedure(s): MR lumbar spine wo con ?? Accession Number(s): [id number] ? cc: Dimitrios Tatum MD; Name,Gregg DIAMOND [...] DD/ 1640 ? TD/TT: 05/31/24 1655 ? Publicity Expert: ? Procedure Note Laron, Image - 06/01/2024 [place] [address] Magnetic Resonance Report Signed Patient: Riccardo AyalanMR#: [id number] 4 : 9Acct:[id number] Age/Sex: 63 / FADM Date: 05/31/24 Loc: HO.MRI Attending Dr: Dimitrios Tatum MD Ordering Physician: Dimitrios Tatum MD Date of Service: 05/31/24 Procedure(s): MR lumbar spine wo [facility] Accession Number(s): [id number] cc: Dimitrios Tatum MD; Name,Gregg DIAMOND EXAMINATION: [...] 06/01/24 0758 DD/ 1640 TD/TT: 05/31/24 1655 Publicity Expert: us [facility] External Provider IMG MRI PROCEDURES Final Result * CT Abdomen Pelvis w/o Contrast (05/04/2024 10:09 PM EDT) Anatomical Region Laterality Modality Body, Pelvis, Abdomen Computed T omography 05/04/2024 10:0 9 PM EDT Narrative 05/04/2024 10:11 PM EDT ? [facility] ?[address] ?[place] [address] ? CT Scan Report ? Signed ? Patient: Ayala,Mag ?MR#: [id number] ?? 4 ? : 1960 ?Acct:[id number] ? Age/Sex: 63 / F ?ADM Date: 05/04/24 ? Loc: HO.ED ? Attending Dr: ? Ordering Physician: Mitch Roberts MD ?? Date of Service: 05/04/24 ?? Procedure(s): CT abdomen pelvis wo IV con ?? Accession Number(s): [id number] ? cc: Gregg Gandhi MD; Mitch Roberts MD ? Report Number: ?? [id number]: Total DLP = ??608.00 mGy-cm ? CLINICAL [...] osteoarthritis both ?? hips. Degenerative changes include jpdjdjwp-vq-kyahic facet arthropathy, ?? particularly in the lower [...] by Destin Gibson MD in OV> ? 05/04/240 ? DD/ 08 ? TD/TT: 05/04/242208 ? Publicity Expert: ? Procedure Note Donotuseinterpreter, Image - 05/04/[address] [address] [address] Scan Report Signed Patient: Eulalia Ayala#: [id number] 4 : 9Acct:[id number] Age/Sex: 63 / FADM Date: 05/04/24 Loc: HO.ED Attending Dr: Ordering Physician: Mitch Roberts MD Date of Service: 05/04/24 Procedure(s): CT abdomen pelvis wo IV con Accession Number(s): [id number] cc: Name,Gregg DIAMOND; Mitch Roberts MD Report Number: [id number]: Total DLP = 608.00 mGy-cm CLINICAL HISTORY: [...] moderate osteoarthritis both hips. Degenerative changes include mtvvkhvj-ie-fivjfx facet arthropathy, particularly in the lower lumbar [...] in OV> 05/04/242209 DD/ 08 TD/TT: 05/04/242208 Publicity Expert: [facility] External Provider IMG CT PROCEDURES Final Result * US VENOUS DUPLEX LE RT (05/02/2024 12:41 AM EDT) Anatomical Region Laterality Modality Abdomen Ultrasound 05/02/2024 12:4 1 AM EDT Narrative 05/02/2024 12:44 AM EDT ? [facility] ?[address] ?[place] [address] ? Ultrasound Report ? Signed ? Patient: Mag Ayala ?MR#: [id number] ?? 4 ? : 1960 ?Acct:[id number] ? Age/Sex: 63 / F ?ADM Date: 05/01/24 ? Loc: HO.ED ? Attending Dr: ? Ordering Physician: Stephen Sexton MD ?? Date of Service: 05/01/24 ?? Procedure(s): US venous duplex LE RT ?? Accession Number(s): [id number] ? cc: Stephen Sexton MD; Name,Gregg DIAMOND [...] 05/02/2441 ? DD/ 004 ? TD/TT: 05/02/24 004 ? Publicity Expert: ? Procedure Note Donjakeheribertosydter, Image - 05/02/[address] [address] Ultrasound Report Signed Patient: Eulalia Ayala#: [id number] 4 : 9Acct:[id number] Age/Sex: 63 / FADM Date: 05/01/24 Loc: HO.ED Attending Dr: Ordering Physician: Stephen Sexton MD Date of Service: 05/01/24 Procedure(s): US venous duplex LE RT Accession Number(s): [id number] cc: Stephen Sexton MD; Name,Gregg DIAMOND CLINICAL [...] Guzmán MD in OV> 05/02/24 0042 DD/ TD/TT: 05/02/2440 Publicity Expert: us [facility] External Provider IMG US PROCEDURES Edited Result - Final * XR Hip left with Pelvis 1 view (05/02/2024 12:09 AM EDT) Anatomical Region Laterality Modality Lower Extremities, Hip Bilateral Radiograp hic Imaging 05/02/2024 12:0 9 AM EDT Narrative 05/02/2024 12:12 AM EDT ? [facility] ?[address] ?[place] [address] ?XRay Report ? Signed ? Patient: Ayala,Mag ?MR#: [id number] ?? 4 ? : 1960 ?Acct:[id number] ? Age/Sex: 63 / F ?ADM Date: 03/17/25 ? Loc: HO.ED ? Attending Dr: ? Ordering Physician: Stephen Sexton MD ?? Date of Service: 05/01/24 ?? Procedure(s): XR hip LT w PEL1V ?? Accession Number(s): [id number] ? cc: Stephen Sexton MD; Name,Gregg DIAMOND [...] 05/02/24 0011 ? DD/ 0009 ? TD/TT: 05/02/248 ? Publicity Expert: ? Procedure Note Donsammiter, Image - 05/02/2024 [place] [address] XRay Report Signed Patient: Eulalia Ayala#: [id number] 4 : 9Acct:[id number] Age/Sex: 63 / FADM Date: 05/01/24 Loc: HO.ED Attending Dr: Ordering Physician: Stephen Sexton MD Date of Service: 05/01/24 Procedure(s): XR hip LT w PEL1V Accession Number(s): [id number] cc: Stephen Sexton MD; Name,Gregg DIAMOND CLINICAL [...] in OV> 05/02/24 0011 DD/ TD/TT: 05/02/248 Publicity Expert: [facility] External Provider IMG XR PROCEDURES Edited Result - Final * (ABNORMAL) POCT rapid strep A manually resulted (04/10/2024 1:59 PM EST) Rapid Strep A Screen Positive( A) Negative, None Detected Swab 04/10/2024 1:59 PM EST Joann Angel HAND SALTER POINT OF CARE TEST ENTER/EDIT O RDERABLES Final Result * BI Mammogram Screening Tomosynthesis Bilateral (04/20/2023 12:05 PM EST) Anatomical Region Laterality Modality Breast Bilateral Mammography 04/20/2023 12:0 5 PM EST Narrative 05/05/2023 8:29 AM EDT ? [facility] [place] ? [address] ?[place] [address] ? Mammography Report ? Signed ? Patient: JamieMag ?MR#: [id number] ?? 4 ? : 1960 ?Acct:[id number] ? Age/Sex: 62 / F ?ADM Date: 03/05/24 ? Loc: HO.MAMMO ? Attending Dr: Gregg Name MD ? Ordering Physician: Name,Grgeg MD ?Results: 1Negative ? Date of Service: 03/05/24 ?Follow Up: 1 Year From Orig ?? inal Mammogram ? Procedure(s): MM tomosynthesis screening BI ?? Accession Number(s): [id number] ? cc: Name,Gregg DIAMOND ? EXAMINATION: ?? [...] 0825 ? DD/ 1205 ? TD/TT: ? Publicity Expert: ? Procedure Note Starla Larry - 05/05/2023 [place] [facility] [address] [place], [place] [address] Mammography Report Signed Patient: Riccardo AyalaTrace#: [id number] 4 : 9Acct:[id number] Age/Sex: 62 / FADM Date: 04/20/23 Loc: HO.MAMMO Attending Dr: Gregg Gandhi MD Ordering Physician: Gregg Gandhiesults: 1Negative Date of Service: 04/20/23Follow Up: 1 Year From Orig inal Mammogram Procedure(s): MM tomosynthesis screening BI Accession Number(s): [id number] cc: Gregg Gandhi MD EXAMINATION: MM SCREENING [...] in OV> 05/05/23 0825 DD/ 1205 TD/TT: Publicity Expert: Gregg Gandhi MD IMG BI PROCEDURES Final [...] ?? Darek MADISON et al. BOO. 2013;310(19): 5137-1954 ?? (http://boo-box.[employer]/faq/SYT104) Non-HDL Cholesterol 125 <130 mg/dL (calc) [facility] [...] [facility] [address] from Last 3 Months or Most Recently Relevant to Health Maintenance Insurance [facility] Care Teams Felt Cementer Relationship Specialty Start Date End Date Name, MD Gregg [address] [place] [address] PCP - General Family Medicine 04/16/15 [facility] 05/23/24
--- OUTSIDE RECORDS SUMMARY | 2024-06-07 10:27 | XMS_ITS | Encounter Summary ---
Author Organization [employer] Address [address] [facility] 7t [place] [address] Care Team Providers Care Hl7 Interface Developer Name Role Phone Name, Gregg DIAMOND Primary Care Provider [phone] Encounter Details Date Type Department Care Team (Late st Contact Info) Description 07/20/2022 Abstract [facility] [address] [place] [address] Name, MD Gregg [address] [place] [address] Social History Tobacco Use Types Packs/Day Years [...] 07/06/2024 9:00 AM EDT Office Visit [facility] [address] [place] [address] Ayan Calvin DMD 230 [place] [address] 07/17/2024 11:30 AM EDT Office Visit [facility] [address] [place], [place] [address] [address] Name, MD Gregg [address] [facility] [place] [address] 09/21/2024 8:00 AM EDT Office Visit [facility] [address] [facility] [place] [address] Faye Mi documented as of this encounter [...] documented as of this encounter Care Teams Hl7 Interface Developer Relationship Specialty Start Date End Date Name[place] [address] PCP - General Family Medicine 04/16/15 [facility] 05/23/24 documented as of this encounter
--- OUTSIDE RECORDS SUMMARY | 2024-06-07 10:27 | XMS_ITS | Encounter Summary ---
Author Organization [employer] Address [address] [facility] 7t [place] [address] Care Team Providers Care Angledozer Operator Name Role Phone Name, Gregg DIAMOND Primary Care Provider [phone] Reason for Visit * Reason Onset Date Comments Nurse Triage 05/04/2024 Encounter Details Date Type Department Care Team ([facility] st Contact Info) Description 05/04/2024 Telephone [facility] [address] [place] [address] Name, MD Gregg [address] [place] [address] Nurse Triage Social History Tobacco Use Types [...] information. Do see mention of hemorrhoids. No medical voucher clerk needed as this public relations writer speaks Croatian. Call returned to Mag Ayala to triage [...] to perform UA. Pt requesting referral to Airfield Engineer Officer per recommendation from Director Online Marketing. Pt advised will forward note to Provider [...] acuity questions The caller accepted this outcome. [phone] (gambian) pt states knows Tajik but there are some words she can't say or understand. Tc from pt stating visited the veterinary technician today, and he told pt should ask her PCP for a referral for a prosthetic because pt has several purple veins in the anus. Pt states this hasn't happenedto her before. documented in this encounter Plan of Treatment Upcoming Encounters Date Type Department Care Team (Late st Contact Info) Description 07/06/2024 9:00 AM EDT Office Visit [facility] [address] [place] [address] Ayan Calvin, RAMIREZ [address] [place] [address] 07/17/2024 11:30 AM EDT Office Visit [facility] MEDICINE [address] [place] [address] Name, MD Gregg [address] [place] [address] 09/21/2024 8:00 AM EDT Office Visit [facility] 230 [facility] [place] [address] Faye Mi documented as of this encounter Visit Diagnoses Not on filedocumented in this encounter Additional Health Concerns Assessment Noted Time PHQ-9 Depression Total Score: 0 09/01/19 10:42 AM EDT documented as of this encounter Care Teams Angledozer Operator Relationship Specialty Start Date End Date Name, MD Gregg [address] [facility] [place] [address] PCP - General Family Medicine 04/16/15 [facility] 05/23/24 documented as of this encounter
--- OUTSIDE RECORDS SUMMARY | 2024-06-07 10:27 | XMS_ITS | Encounter Summary ---
Author Organization [employer] [facility] Address 75 [facility] 7t [place] [address] Care Team Providers Care Glass Wool Blanket Machine Feeder Name Role Phone Name, Gregg DIAMOND Primary Care Provider [phone] Reason for Visit * Reason Comments Med Refill Encounter Details Date Type Department Care Team ( Contact Info) Description 10/14/2022 Refill [facility] [address] [place], [place] [phone] Name, MD Gregg 230 [place] [address] Osteoporosis, unspecified osteoporosis type, unspecified pathological fracture [...] Description 07/06/2024 9:00 AM EDT Office Visit [facility] ADULT DENT[facility] [address] [place], [place] [phone] Ayan Calvin, RAMIREZ [address] [place], [place] [phone] 07/17/2024 11:30 AM EDT Office Visit [facility] [address] [place] [address] Name, [place] [address] 09/21/2024 8:00 AM EDT Office Visit [facility] [address] [place] [address] Faye Mi documented as of this encounter Visit Diagnoses Diagnosis Osteoporosis, unspecified osteoporosis type, unspecified pathological fracture presence documented in this encounter Additional Health Concerns Assessment Noted Time PHQ-9 Depression Total Score: 7 03/04/19 23 9:17 AM EST documented as of this encounter Care Teams Glass Wool Blanket Machine Feeder Relationship Specialty Start Date End Date Name, [place] [address] PCP - General Family Medicine 04/16/15 [facility] 05/23/24 documented as of this encounter
--- OUTSIDE RECORDS SUMMARY | 2024-06-07 10:27 | XMS_ITS | Encounter Summary ---
Author Organization [employer] Address [address] [facility] [address] 7t [place] [address] Care Team Providers Care Seo Associate Name Role Phone Name, Gregg DIAMOND Primary Care Provider [phone] Reason for Visit * Reason Onset Date Comments PT1 02/25/2023 Encounter Details Date Type Department Care Team ([facility] st Contact Info) Description 02/25/2023 Telephone [facility] [address] [place] [address] Name, MD Gregg [address] [place] [address] PT1 Social History Tobacco Use Types Packs/Day [...] - valid through 06/2023 [facility] neurology - [id number] authorized Dr Chakraborty - [id number] pending [facility] Surg - [id number] authorized [facility] - [id number] authorized Renal & Trans - [id number] authorized ENT - [id number] pending [facility] medical office - [id number] pending * Telephone Encounter - Cameron Su - 02/25/2023 4:29 PM EST PT1 needed Date: N/A Time: N/A Visits: 2 or 3 monthly Address: [address] [facility] Facility: [facility] Cardiovascular Wheel Chair: No Brick Carrier Needed: No PT1 needed Date: N/A Time: N/A Visits: 2 or 3 Monthly Address: [address] [facility] Facility: [facility] Neurology Wheel No Brick Carrier Needed: No PT1 needed Date: N/A Time: N/A Visits: 2 or 3 Monthly Address: [address] [facility] Facility: Dr Chakraborty Wheel Chair: No Brick Carrier Needed: No PT1 needed Date: N/A Time: N/A Visits: 2 or 3 Monthly Address: [address] [place] [address] dr LambertRafy [place] Facility: [facility] General Surgery Wheel Chair: No Brick Carrier Needed: No PT1 needed Date: N/A Time: N/A Visits: 2 or 3 Monthly Address: [address] [place] [address] Facility: [facility] Wheel Chair: No Brick Carrier Needed: No PT1 needed Date: N/A Time: N/A Visits: 2 or 3 monthly Address: [address] [facility] Facility: [facility] Wheel Chair: No Brick Carrier Needed: No PT1 needed Date: N/A Time: N/A Visits: 2 or 3 monthly Address: [address] [facility] Facility: [facility] Wheel Chair: No Brick Carrier Needed: No PT1 needed Date: N/A Time: N/A Visits: 2 or 3 Monthly Address: [address] [facility] [address] [place] Facility: [facility] medical Office Wheel Chair: No Brick Carrier Needed: No PT1 needed Date: N/A Time: N/A Visits: 2 or 3 Monthly Address: [address] [place] [address] Facility: [facility] Wheel Chair: No Brick Carrier Needed: No documented in this encounter Plan of Treatment Upcoming Encounters Date Type Department Care Team (Late st Contact Info) Description 07/06/2024 9:00 AM EDT Office Visit [facility] [address] [place] [address] Ayan Calvin, RAMIREZ [address] [place] [address] 07/17/2024 11:30 AM EDT Office Visit [facility] [address] [place] [address] Name, MD Gregg [address] [place] [address] 09/21/2024 8:00 AM EDT Office Visit [facility] [address] [place] [address] Faye Mi documented as of this encounter Visit Diagnoses Not on filedocumented in this encounter Additional Health Concerns Assessment Noted Time PHQ-9 Depression Total Score: 7 03/04/19 23 9:17 AM EST documented as of this encounter Care Teams Seo Associate Relationship Specialty Start Date End Date Name, MD Gregg [address] [place] [address] PCP - General Family Medicine 04/16/15 [facility] 05/23/24 documented as of this encounter
--- OUTSIDE RECORDS SUMMARY | 2024-06-07 10:27 | XMS_ITS | Encounter Summary ---
Author Organization [employer] [facility] Address [address] 7[address] [place] [address] Care Team Providers Care Hog Stomach Preparer Name Role Phone Name, Gregg DIAMOND Primary Care Provider [phone] Encounter Details Date Type Department Care Team (Latest Contact Info) Description 12/25/2019 Abstract [facility] Dental, Provider, DDS Social [...] Description 07/06/2024 9:00 AM EDT Office Visit [facility] [address] [place] [address] Ayan Calvin DMD [address] [place] [address] 07/17/2024 11:30 AM EDT Office Visit [facility] [address] [place] [address] Name, MD Gregg [address] [place] [address] 09/21/2024 8:00 AM EDT Office Visit [facility] [address] [place] [address] Faye Mi documented as of this encounter Visit Diagnoses Not on filedocumented in this encounter Care Teams Hog Stomach Preparer Relationship Specialty Start Date End Date Name, MD Gregg [address] [place] [address] PCP - General Family Medicine 04/16/15 [facility] 05/23/24 documented as of this encounter
--- OUTSIDE RECORDS SUMMARY | 2024-06-07 10:27 | XMS_ITS | Encounter Summary ---
Author Organization [employer] Address [address] [place] [address] Care Team Providers Care Freelance Data Entry Name Role Phone Name, Gregg DIAMOND Primary Care Provider Reason for Visit * Reason Onset Date Comments broken tooth to hold partial 02/28/2024 Encounter Details Date Type Department Care Team (Late st Contact Info) Description 02/28/2024 Telephone [facility] ADULT DENTAL [address] [place] [address] Ayan Calvin, DMD [address] [place] [address] broken tooth to hold partial Social History [...] Description 07/06/2024 9:00 AM EDT Office Visit [facility] ADULT DENTAL [address] [place] [address] Ayan Calvin, RAMIREZ [address] [place] [address] 07/17/2024 11:30 AM EDT Office Visit [facility] MEDICINE [address] [place] [address] Name, MD Gregg [address] [place] [address] 09/21/2024 8:00 AM EDT Office Visit [facility] ADULT DENTAL [address] [place] [address] Faye Mi documented as of this encounter Visit Diagnoses Not on filedocumented in this encounter Additional Health Concerns Assessment Noted Time PHQ-9 Depression Total Score: 0 09/01/19 24 10:42 AM EDT documented as of this encounter Care Teams Freelance Data Entry Relationship Specialty Start Date End Date Name, MD Gregg [address] [place] [address] PCP - General Family Medicine 04/16/15 [facility] 05/23/24 documented as of this encounter
--- OUTSIDE RECORDS SUMMARY | 2024-06-07 10:27 | XMS_ITS | Encounter Summary ---
Author Organization [employer] [facility] Address [address] 7[address] [place] [address] Care Team Providers Care Sequencing Machine Operator Name Role Phone Name, Gregg DIAMOND Primary Care Provider [phone] Reason for Visit * Reason Comments Med Refill Encounter Details Date Type Department Care Team ( Contact Info) Description 10/06/2022 Refill [facility] MEDICINE [address] [place], [place] [phone] Name, MD Gregg [address] [place] [address] Osteoporosis, unspecified osteoporosis type, unspecified pathological fracture [...] Description 07/06/2024 9:00 AM EDT Office Visit [facility] ADULT DENTAL [address] [place], [place] [phone] Ayan Calvin, RAMIREZ [address] [place], [place] [phone] 07/17/2024 11:30 AM EDT Office Visit [facility] MEDICINE [address] [place] [address] Name, [place] [address] 09/21/2024 8:00 AM EDT Office Visit [facility] ADULT DENTAL [address] [place] [address] Faye Mi documented as of this encounter Visit Diagnoses Diagnosis Osteoporosis, unspecified osteoporosis type, unspecified pathological fracture presence documented in this encounter Additional Health Concerns Assessment Noted Time PHQ-9 Depression Total Score: 7 03/04/19 23 9:17 AM EST documented as of this encounter Care Teams Sequencing Machine Operator Relationship Specialty Start Date End Date Name, [place] [address] PCP - General Family Medicine 04/16/15 [facility] 05/23/24 documented as of this encounter
--- OUTSIDE RECORDS SUMMARY | 2024-06-07 10:27 | XMS_ITS | Encounter Summary ---
Author Organization [employer] Address [address] 7t [place] [address] Care Team Providers Care Health Care Facilities Inspector Name Role Phone Name, Gregg DIAMOND Primary Care Provider [phone] Reason for Visit * Reason Onset Date Comments Med Refill 06/02/2024 Encounter Details Date Type Department Care Team ([facility] st Contact Info) Description 06/02/2024 Telephone [facility] MEDICINE [address] [place] [address] Name, MD Gregg [address] [place] [address] Med Refill Social History Tobacco Use Types Packs/Day Years [...] Telephone Encounter - Maura Taylor RN - 06/02/2024 2:40 PM EDT TC placed to pt regarding request for dose increase. Confirmed pt is requesting dose increase on Tirzepatide-Weight Management (Zepbound) 7.5 MG/0.5ML solution auto-injector. Pt reports she was advised by [facility] pharmacy staff Vandana or Cassy to request an increase. Pt reports she has a lot going. Pt reports she is gaining weight, she is unable to walk, and is getting injections. 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 Message forwarded to PCP to review and advise. * Telephone Encounter - Neelam Isaac - 06/02/2024 12:35 PM EDT Tc from pt requesting dosis increase. Pt state that the pharmacy sent her to ask for an increase indosage Wednesday is pick-up day Contact pt [phone] documented in this encounter Plan of Treatment Upcoming Encounters Date Type Department Care Team (Late st Contact Info) Description 07/06/2024 9:00 AM EDT Office Visit [facility] ADULT DENTAL [address] [place] [address] Ayan Calvin, RAMIREZ [address] [place] [address] 07/17/2024 11:30 AM EDT Office Visit [facility] MEDICINE [address] [place] [address] Name, MD Gregg [address] [place] [address] 09/21/2024 8:00 AM EDT Office Visit [facility] ADULT DENTAL [address] [place] [address] Faye Mi documented as of this encounter Visit Diagnoses Not on filedocumented in this encounter Additional Health Concerns Assessment Noted Time PHQ-9 Depression Total Score: 0 09/01/19 24 10:42 AM EDT documented as of this encounter Care Teams Health Care Facilities Inspector Relationship Specialty Start Date End Date Name, MD Gregg [address] [place] [address] PCP - General Family Medicine 04/16/15 [facility] 05/23/24 documented as of this encounter
--- OUTSIDE RECORDS SUMMARY | 2024-06-07 10:27 | XMS_ITS | Encounter Summary ---
Author Organization [employer] Address [address] 7t [place] [address] Care Team Providers Care Ropeman Name Role Phone Name, Gregg DIAMOND Primary Care Provider [phone] Reason for Visit * Reason Comments Med Refill Encounter Details Date Type Department Care Team (Late Contact Info) Description 03/04/2022 Refill [facility] MEDICINE [address] [place] [address] Name, MD Gregg [address] [place] [address] Osteoporosis, unspecified osteoporosis type, unspecified pathological fracture [...] 9:00 AM EDT Office Visit [facility] ADULT DENTAL [address] [place] [address] Ayan Calvin, RAMIREZ [address] [place] [address] 07/17/2024 11:30 AM EDT Office Visit [facility] MEDICINE [address] [place] [address] Name, MD Gregg [address] [place] [address] 09/21/2024 8:00 AM EDT Office Visit [facility] ADULT DENTAL [address] [place] [address] Faye Mi documented as of this encounter Visit Diagnoses Diagnosis Osteoporosis, unspecified osteoporosis type, unspecified pathological fracture presence documented in this encounter Additional Health Concerns Assessment Noted Time PHQ-9 Depression Total Score: 7 03/04/19 23 9:17 AM EST documented as of this encounter Care Teams Ropeman Relationship Specialty Start Date End Date Name, MD Gregg [address] [place] [address] PCP - General Family Medicine 04/16/15 [facility] 05/23/24 documented as of this encounter
--- OUTSIDE RECORDS SUMMARY | 2024-06-07 10:27 | XMS_ITS | Encounter Summary ---
Author Organization [employer] Address [address] [place] [address] Care Team Providers Care Enrobing Machine Operator Name Role Phone Name, Gregg DIAMOND Primary Care Provider [phone] Reason for Visit * Reason Onset Date Comments Appointment Request 05/24/2024 Encounter Details Date Type Department Care Team ([facility] st Contact Info) Description 05/24/2024 Telephone [facility] MEDICINE [address] [place] [address] Name, MD Gregg [address] [place] [address] Appointment Request Social History Tobacco Use Types [...] the phone she will. Contact pt at [phone] documented in this encounter Plan of Treatment Upcoming Encounters Date Type Department Care Team (Late st Contact Info) Description 07/06/2024 9:00 AM EDT Office Visit [facility] ADULT DENTAL [address] [place] [address] Ayan Calvin DMD [address] [place] [address] 07/17/2024 11:30 AM EDT Office Visit [facility] MEDICINE [address] [place] [address] Name, MD Gregg [address] [place] [address] 09/21/2024 8:00 AM EDT Office Visit [facility] ADULT DENTAL [address] [place] [address] Faye Mi documented as of this encounter Visit Diagnoses Not on filedocumented in this encounter Additional Health Concerns Assessment Noted Time PHQ-9 Depression Total Score: 0 09/01/19 24 10:42 AM EDT documented as of this encounter Care Teams Enrobing Machine Operator Relationship Specialty Start Date End Date Name, MD Gregg [address] [place] [address] PCP - General Family Medicine 04/16/15 [facility] 05/23/24 documented as of this encounter
--- OUTSIDE RECORDS SUMMARY | 2024-06-07 10:27 | XMS_ITS | Encounter Summary ---
Author Organization [employer] Address [address] [place] [address] Care Team Providers Care Tankman Name Role Phone Name, Gregg DIAMOND Primary Care Provider [phone] Encounter Details Date Type Department Care Team ([facility] st Contact Info) Description 05/24/2024 Telephone [facility] MEDICINE [address] [place], [place] [phone] Name, MD Gregg [address] [place] [address] Social History Tobacco Use Types Packs/Day Years [...] 07/06/2024 9:00 AM EDT Office Visit [facility] ADULT DENTAL [address] [place] [address] Ayan Calvin, RAMIREZ [address] [place] [address] 07/17/2024 11:30 AM EDT Office Visit [facility] MEDICINE [address] [place] [address] Name, MD Gregg [address] [place] [address] 09/21/2024 8:00 AM EDT Office Visit [facility] ADULT DENTAL [address] [place] [address] Faye Mi documented as of this encounter Visit Diagnoses Not on filedocumented in this encounter Additional Health Concerns Assessment Noted Time PHQ-9 Depression Total Score: 0 09/01/19 24 10:42 AM EDT documented as of this encounter Care Teams Tankman Relationship Specialty Start Date End Date Name, MD Gregg [address] [place] [address] PCP - General Family Medicine 04/16/15 [facility] 05/23/24 documented as of this encounter
== END 2024-06-07 10:16 | disposition home or self-care (01) ==
LOC: HO.PMC 09:26
PROVIDERS: PCP Internal Medicine Geriatric Medicine; Visit Provider Anesthesiology
DX: M16.0 Bilateral primary osteoarthritis of hip (principal); M25.551 Pain in right hip; M25.552 Pain in left hip; R30.9 Painful micturition, unspecified; R32 Unspecified urinary incontinence; M54.16 Radiculopathy, lumbar region; M51.369 Other intervertebral disc degeneration, lumbar region without mention of lumbar back pain or lower extremity pain; M46.1 Sacroiliitis, not elsewhere classified
CPT/HCPCS: 99214

== ENCOUNTER → 2024-06-07 10:43 | Outpatient (BNV) | payer OTHER, SELFPAY | PROVIDERS: PCP Internal Medicine Geriatric Medicine; Visit Provider Radiology Vascular & Interventional Radiology | DX: M16.0 Bilateral primary osteoarthritis of hip (principal) | CPT/HCPCS: 73522 ==

== ENCOUNTER 2024-06-09 10:23 | Outpatient (AMB) | payer OTHER, SELFPAY ==
[2024-06-09 10:31] VITALS: BMI 30.4
--- NOTE | 2024-06-09 10:31 | A.OFFVIS_ITS ---
Vital Signs 06/09/24 10:31 Height 5 ft 4 in Weight 177 lb BMI 30.4 Intake Visit Reasons: INJ- B/L knee Euflexxa #3 Intake Note: Mag is a 63 year old female who presents today for her 3rd Euflexxa injection for her bilateral knees. Allergies nalbuphine [From Nubain] Allergy (Severe, Verified 06/09/24 10:44) Anaphylaxis oxycodone Adverse Reaction (Verified 06/09/24 10:44) itchy tramadol Adverse Reaction (Verified 06/09/24 10:44) itchy HPI HPI INJ- B/L knee Euflexxa #3: Details: Mag is a 63 year old female who presents today for her 3rd Euflexxa injection for her bilateral knees. [facility] Medical History Bronchitis Somnolence, daytime Obesity (BMI 30-39.9) Nausea & vomiting Migraine Syncope Pseudotumor cerebri Kidney calculi Crystal arthropathy Right shoulder injury Kidney tumor COVID-19 vaccine administered Thyroid disease Colon polyp Diverticulosis of colon Bronchial asthma Acid reflux Surgical History Status post excision of lipoma (09/10/23) History of esophagogastroduodenoscopy (EGD) History of surgery on wrist History of hysterectomy Previous section Hx laparoscopic cholecystectomy Hx of gastric bypass (03/12/15) Hx of colonoscopy Family History Father Heart disease History of open heart surgery Mother Heart disease Social History Household Members: None Household Members Other:: alone Are you a primary healthcare applications analyst to a significant other at home: No Do you presently have visiting nurse or other home services: No Alcohol intake: never Patient Tobacco Use Status: Former Tobacco user Tobacco use type: Cigarette service: No Current occupational status: disabled Review of Systems Const All systems reviewed & are unremarkable except as noted in HPI and below Physical Exam Vital Signs: BMI result Body Mass Index 30.4 Office Procedures AMB Joint Injection/Aspiration Joint Injection/Aspiration Primary Site: left knee Prep: site was prepped using aseptic technique and ethochloride spray was applied Procedure: The patient tolerated the procedure well and there was some relief with the local anesthesia Coding 10494 - Large joint Procedure code (CPT) selection complete AMB Joint Injection/Aspiration Joint Injection/Aspiration Primary Site: right knee Procedure: The patient tolerated the procedure well and but had some pain with the injection Coding 45117 - Large joint Procedure code (CPT) selection complete Assessment & Plan Assessment & Plan (1) Osteoarthritis of knees, bilateral: Code(s): M17.0 - Bilateral primary osteoarthritis of knee Category: Medical Plan 1. Bilateral knee Euflexxa injections The risks and benefits of a steroid injection including but not limited to risk of damage to blood vessels, nerves, tendons, infection, skin bleaching, failure to improve symptoms, increased pain, and possible need for further injections or other intervention were discussed with the patient and the patient wishes to proceed with the steroid injection. Once consent was obtained, I aseptically prepped the area over the anterolateral joint line of the bilateral knees. I then injected the area over the lateral epicondyle with Euflexxa. The patient tolerated the procedure well with no complications. If the patient continues to experience symptoms over the following few weeks or months, they can make an appointment to return and discuss alternative treatment measures, such as physical therapy. Follow-up prn Coding Level of Care Code Procedure Only Diagnoses Osteoarthritis of knees, bilateral M17.0 CPT Codes Coding - 98237 Large joint: 25922 - Large joint ([id number]) Coding - 09005 Large joint: 81716 - Large joint ([id number])
--- OUTSIDE RECORDS SUMMARY | 2024-06-09 10:50 | XMS_ITS | Encounter Summary ---
Author Organization [employer] Address [address] [facility] 7t [place] [address] Care Team Providers Care Gem Setter Name Role Phone Name, Gregg DIAMOND Primary Care Provider [phone] Reason for Visit * Reason Onset Date Comments Nurse Triage 05/04/2024 Encounter Details Date Type Department Care Team ([facility] st Contact Info) Description 05/04/2024 Telephone [facility] MEDICINE [address] [place] [address] Name, MD Gregg 230 [place] [address] Nurse Triage Social History Tobacco Use Types [...] information. Do see mention of hemorrhoids. No adventure therapist needed as this show card writer speaks Frisian. Call returned to Mag Ayala to triage [...] to perform UA. Pt requesting referral to Plate Setter per recommendation from Short Filler Bunch Machine Operator. Pt advised will forward note to Provider [...] acuity questions The caller accepted this outcome. [phone] (martiniquais) pt states knows Maltese but there are some words she can't say or understand. Tc from pt stating visited the shoe repairer helper today, and he told pt should ask her PCP for a referral for a prosthetic because pt has several purple veins in the anus. Pt states this hasn't happenedto her before. documented in this encounter Plan of Treatment Upcoming Encounters Date Type Department Care Team (Late st Contact Info) Description 07/06/2024 9:00 AM EDT Office Visit [facility] ADULT DENTAL [address] [place] [address] Ayan Calvin, RAMIREZ [address] [place] [address] 07/17/2024 11:30 AM EDT Office Visit [facility] MEDICINE [address] [place] [address] Name, MD Gregg [address] [place] [address] 09/21/2024 8:00 AM EDT Office Visit [facility] ADULT DENTAL 230 [facility] [place] [address] Faye Mi documented as of this encounter Visit Diagnoses Not on filedocumented in this encounter Additional Health Concerns Assessment Noted Time PHQ-9 Depression Total Score: 0 09/01/19 10:42 AM EDT documented as of this encounter Care Teams Gem Setter Relationship Specialty Start Date End Date Name, MD Gregg 230 [facility] [place] [address] PCP - General Family Medicine 04/16/15 [facility] 05/23/24 documented as of this encounter
--- OUTSIDE RECORDS SUMMARY | 2024-06-09 10:50 | XMS_ITS | Encounter Summary ---
Author Organization [employer] Address [address] [facility] [address] 7t [place] [address] Care Team Providers Care Administrative Resident Name Role Phone Name, Gregg IDAMOND Primary Care Provider [phone] Encounter Details Date Type Department Care Team ([facility] st Contact Info) Description 05/24/2024 Telephone [facility] MEDICINE [address] [place], [place] [phone] Name, MD Gregg 230 [place] [address] Social History Tobacco Use Types Packs/Day Years [...] 07/06/2024 9:00 AM EDT Office Visit [facility] ADULT DENTAL [address] [place] [address] Ayan Calvin, RAMIREZ 230 [place] [address] 07/17/2024 11:30 AM EDT Office Visit [facility] MEDICINE [address] [place] [address] Name, MD Gregg [address] [place] [address] 09/21/2024 8:00 AM EDT Office Visit [facility] ADULT DENTAL [address] [place] [address] Faye Mi documented as of this encounter Visit Diagnoses Not on filedocumented in this encounter Additional Health Concerns Assessment Noted Time PHQ-9 Depression Total Score: 0 09/01/19 24 10:42 AM EDT documented as of this encounter Care Teams Administrative Resident Relationship Specialty Start Date End Date Name, MD Gregg [address] [place] [address] PCP - General Family Medicine 04/16/15 [facility] 05/23/24 documented as of this encounter
--- OUTSIDE RECORDS SUMMARY | 2024-06-09 10:50 | XMS_ITS | Encounter Summary ---
Author Organization [employer] Address [address] [facility] [address] 7t [place] [address] Care Team Providers Care Bulbs Farmworker Name Role Phone Name, Gregg DIAMOND Primary Care Provider [phone] Reason for Visit * Reason Comments Med Refill Encounter Details Date Type Department Care Team ([facility] st Contact Info) Description 02/14/2024 Refill [facility] MEDICINE 230 [place], [place] [phone] Name, MD Gregg 230 [place] [address] Social History Tobacco Use Types Packs/Day Years [...] Office Visit [facility] ADULT DENTAL [address] [place] [address] Ayan Calvin, RAMIREZ [address] [place] [address] 07/17/2024 11:30 AM EDT Office Visit [facility] MEDICINE [address] [place] [address] Name, MD Gregg [address] [place] [address] 09/21/2024 8:00 AM EDT Office Visit [facility] ADULT DENTAL [address] [place] [address] Faye Mi documented as of this encounter Visit Diagnoses Not on filedocumented in this encounter Additional Health Concerns Assessment Noted Time PHQ-9 Depression Total Score: 0 09/01/19 24 10:42 AM EDT documented as of this encounter Care Teams Bulbs Farmworker Relationship Specialty Start Date End Date Name, MD Gregg [address] [place] [address] PCP - General Family Medicine 04/16/15 [facility] 05/23/24 documented as of this encounter
--- OUTSIDE RECORDS SUMMARY | 2024-06-09 10:50 | XMS_ITS | Encounter Summary ---
Author Organization [employer] Address [address] 7t [place] [address] Care Team Providers Care Angle Shear Set Up Operator Name Role Phone Name, Gregg DIAMOND Primary Care Provider [phone] Encounter Details Date Type Department Care Team ([facility] st Contact Info) Description 10/21/2023 Telephone [facility] ADULT DENTAL 230 [place] [address] Ayan Calvin, DMD [address] [place] [address] Social History Tobacco Use Types Packs/Day Years [...] Description 07/06/2024 9:00 AM EDT Office Visit [facility] ADULT DENTAL [address] [place] [address] Ayan Calvin, RAMIREZ 230 [place] [address] 07/17/2024 11:30 AM EDT Office Visit [facility] MED[facility] [address] [place] [address] Name, MD Gregg [address] [place] [address] 09/21/2024 8:00 AM EDT Office Visit [facility] ADULT DENTAL [address] [place] [address] Faye Mi documented as of this encounter Visit Diagnoses Not on filedocumented in this encounter Additional Health Concerns Assessment Noted Time PHQ-9 Depression Total Score: 0 09/01/19 24 10:42 AM EDT documented as of this encounter Care Teams Angle Shear Set Up Operator Relationship Specialty Start Date End Date Name, MD Gregg 230 [place] [address] PCP - General Family Medicine 04/16/15 [facility] 05/23/24 documented as of this encounter
--- OUTSIDE RECORDS SUMMARY | 2024-06-09 10:50 | XMS_ITS | Encounter Summary ---
Author Organization [employer] Address [address] [facility] 7t [place] [address] Care Team Providers Care Box Nailer Name Role Phone Name, Gregg DIAMOND Primary Care Provider [phone] Reason for Visit * Reason Onset Date Comments ER Follow-up 05/02/2024 Nurse Triage 05/02/2024 Encounter Details Date Type Department Care Team ([facility] st Contact Info) Description 05/02/2024 Telephone [facility] MEDICINE 230 [place] [address] Name, MD Gregg 230 [place] [address] ER Follow-up; Nurse Triage Social History Tobacco [...] of the rollator walker. TC placed to [facility] pharamcyregarding the fosamax. Lori states the medication [...] June Pt requesting a call from PCP. Market Risk Analyst found telehealth visit in PCP schedule. Pt [...] find out more information. TC placed to [facility] pharamcy regardingthe fosamax. Lori states the medication [...] She states that she went [place] [facility] [place] due to right leg pain and right knee isswollen. Pt. Was also having throbbing pain in left side of groin. [facility] did not find any blood clot in leg and Xray of left hip and pelvis-negative. ED is recommending referral to [facility] according to pt. Pt does not want [...] that she remembers. Pt. Needs referral to [facility]. Offered pt. Appt. Today but, pt. Only wants to speak to pcp and is requesting appt. With PCP only or call from PCP to discuss updates and needs. Please get back to pt. To let her know if any of these needs can be met Will send request to Clinical coordinators to get [facility] report from yesterday into pt. Chart. Multiple needs. * Telephone Encounter - Shubham Booth - 05/02/2024 10:20 AM EDT Patient calling to report ED visit on : Date: 05/01/2024 Hospital: [facility] Seen for: Knee pain , groin [...] Office Visit [facility] ADULT DENTAL [address] [place] [address] Ayan Calvin DMD 230 [place] [address] 07/17/2024 11:30 AM EDT Office Visit [facility] MEDICINE [address] [place] [address] Name, MD Gregg 230 [place] [address] 09/21/2024 8:00 AM EDT Office Visit [facility] ADULT DENTAL [address] [place] [address] Faye Mi documented as of this encounter Visit Diagnoses Not on filedocumented in this encounter Additional Health Concerns Assessment Noted Time PHQ-9 Depression Total Score: 0 09/01/19 24 10:42 AM EDT documented as of this encounter Care Teams Box Nailer Relationship Specialty Start Date End Date Name, MD Gregg 230 [place] [address] PCP - General Family Medicine 04/16/15 [facility] 05/23/24 documented as of this encounter
--- OUTSIDE RECORDS SUMMARY | 2024-06-09 10:50 | XMS_ITS | Encounter Summary ---
Author Organization [employer] Address [address] [facility] [address] 7t [place] [address] Care Team Providers Care Cattle Tester Name Role Phone Name, Gregg DIAMOND Primary Care Provider [phone] Reason for Visit * Reason Onset Date Comments Request For Order(s) 07/30/2023 Encounter Details Date Type Department Care Team ([facility] st Contact Info) Description 07/30/2023 Telephone [facility] MEDICINE 230 [place], [place] [phone] Name, MD Gregg [address] [place] [address] Request For Order(s) Social History Tobacco Use [...] done. Please clarify Please contact pt at [phone] (No bakery team member needed) documented in this encounter Plan of Treatment Upcoming Encounters Date Type Department Care Team (Late st Contact Info) Description 07/06/2024 9:00 AM EDT Office Visit [facility] ADULT DENTAL [address] [place] [address] Ayan Calvin DMD 230 [place] [address] 07/17/2024 11:30 AM EDT Office Visit [facility] MEDICINE [address] [place] [address] Name, MD Gregg [address] [place] [address] 09/21/2024 8:00 AM EDT Office Visit [facility] ADULT DENTAL [address] [place] [address] Faye Mi documented as of this encounter Visit Diagnoses Not on filedocumented in this encounter Additional Health Concerns Assessment Noted Time PHQ-9 Depression Total Score: 7 03/04/19 23 9:17 AM EST documented as of this encounter Care Teams Cattle Tester Relationship Specialty Start Date End Date NameGregg MD 230 [place] [address] PCP - General Family Medicine 04/16/15 [facility] 05/23/24 documented as of this encounter
--- OUTSIDE RECORDS SUMMARY | 2024-06-09 10:50 | XMS_ITS | Encounter Summary ---
Author Organization [employer] Address [address] [facility] 7t [place] [address] Care Team Providers Care Doorkeeper Name Role Phone Name, Gregg DIAMOND Primary Care Provider [phone] Reason for Visit * Reason Onset Date Comments Appointment Request 05/24/2024 Encounter Details Date Type Department Care Team ([facility] st Contact Info) Description 05/24/2024 Telephone [facility] MEDICINE [address] [place] [address] Name, MD Gregg [address] [place] [address] Appointment Request Social History Tobacco Use Types [...] the phone she will. Contact pt at [phone] documented in this encounter Plan of Treatment Upcoming Encounters Date Type Department Care Team (Late st Contact Info) Description 07/06/2024 9:00 AM EDT Office Visit [facility] ADULT DENTAL [address] [place] [address] Ayan Calvin DMD [address] [place] [address] 07/17/2024 11:30 AM EDT Office Visit [facility] MEDICINE [address] [place] [address] Name, MD Gregg [address] [place] [address] 09/21/2024 8:00 AM EDT Office Visit [facility] ADULT DENTAL [address] [place] [address] Faye Mi documented as of this encounter Visit Diagnoses Not on filedocumented in this encounter Additional Health Concerns Assessment Noted Time PHQ-9 Depression Total Score: 0 09/01/19 24 10:42 AM EDT documented as of this encounter Care Teams Doorkeeper Relationship Specialty Start Date End Date Name, MD Gregg 230 [place] [address] PCP - General Family Medicine 04/16/15 [facility] 05/23/24 documented as of this encounter
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
--- OUTSIDE RECORDS SUMMARY | 2024-06-09 10:50 | XMS_ITS | Encounter Summary ---
Author Organization [employer] Address [address] [place] [address] Care Team Providers Care Science Interpreter Name Role Phone Name, Gregg DIAMOND Primary Care Provider [phone] Reason for Visit * Reason Comments Med Refill Encounter Details Date Type Department Care Team ([facility] st Contact Info) Description 08/03/2023 Refill [facility] [address] [place], [place] [phone] Name, MD Gregg [address] [place] [address] Social History Tobacco Use Types Packs/Day Years [...] the past 12 months, has t he [employer] oil or water company threatened to shut [...] 07/06/2024 9:00 AM EDT Office Visit [facility] [address] [place] [address] Ayan Calvin DMD [address] [place] [address] 07/17/2024 11:30 AM EDT Office Visit [facility] [address] [place] [address] Name, MD Gregg [address] [place] [address] 09/21/2024 8:00 AM EDT Office Visit [facility] [address] [place] [address] Faye Mi documented as of this encounter Visit Diagnoses Not on filedocumented in this encounter Additional Health Concerns Assessment Noted Time PHQ-9 Depression Total Score: 7 03/04/19 23 9:17 AM EST documented as of this encounter Care Teams Science Interpreter Relationship Specialty Start Date End Date NameGergg MD [address] [place] [address] PCP - General Family Medicine 04/16/15 [facility] 05/23/24 documented as of this encounter
--- OUTSIDE RECORDS SUMMARY | 2024-06-09 10:50 | XMS_ITS | Encounter Summary ---
Author Organization [employer] Address [address] 7t [place] [address] Care Team Providers Care Corporate Counsel Name Role Phone Name, Gregg DIAMOND Primary Care Provider [phone] Encounter Details Date Type Department Care Team (Late st Contact Info) Description 06/07/2024 Orders Only [facility] External Provider, [facility] Social History Tobacco Use Types Packs/Day Years [...] 9:00 AM EDT Office Visit [facility] [address] [place] [address] Ayan Calvin DMD [address] [place] [address] 07/17/2024 11:30 AM EDT Office Visit [facility] [address] [place] [phone] Name, MD Gregg [address] [place] [address] 09/21/2024 8:00 AM EDT Office Visit [facility] [address] [place] [address] Faye Mi documented as of this encounter Procedures Procedure Name Priority Date/Time Associated Diagnosis Comments XR HIPS BILATERAL 3 OR 4 VIEWS WITH OR WITHOUT PELVIS Routine 06/08/2024 9:13 PM EDT documented in this encounter Results * XR Hips Bilateral 3 or 4 Views with or without Pelvis (06/08/2024 9:13 PM EDT) Anatomical Region Laterality Modality Lower Extremities, Hip Bilateral Radiograp hic Imaging 06/08/2024 9:13 PM EDT Narrative 06/08/2024 9:14 PM EDT ? [facility] ?[address] ?[place] [address] ?XRay Report ? Signed ? Patient: Ayala,Mag ?MR#: [id number] ?? 4 ? : 1960 ?Acct:[id number] ? Age/Sex: 63 / F ?ADM Date: 06/07/24 ? Loc: HO.XRAY ? Attending Dr: Dimitrios Tatum MD ? Ordering Physician: Dimitrios Tatum MD ?? Date of Service: 06/07/24 ?? Procedure(s): XR hips CARLEY min 3V ?? Accession Number(s): [id number] ? cc: Dimitrios Tatum MD; Name,Gregg DIAMOND ? CLINICAL HISTORY: M16.0 - Bilateral primary osteoarthritis of hip ? Two views of each hip ? Comparison: None ? Findings: ?? The bones are intact. ?? Awvu-ad-zunoorkd degenerative changes at both femoral-acetabular joints. ?? The soft tissues are unremarkable. ? IMPRESSION: ?? No acute findings. Vfwo-en-xlvtsqmo degenerative changes bilaterally. ? This document has been electronically signed by: Ciaran Antonio MD on ?? 06/08/2024 21:13:06 ? Dictated By: ?Ciaran Antonio MD ? Signed By: ?<Electronically signed by Ciaran Antonio MD in OV> ? 06/08/242112 ? DD/ 12 ? TD/TT: 06/08/242112 ? Fuel Cell Designer: ? Procedure Note [place], Image - 06/08/2024 [place] [address] XRay Report Signed Patient: Eulalia Ayala#: [id number] 4 : 9Acct:[id number] Age/Sex: 63 / FADM Date: 06/07/24 Loc: DOMO Attending Dr: Dimitrios Tatum MD Ordering Physician: Dimitrios Tatum MD Date of Service: 06/07/24 Procedure(s): XR hips CARLEY min 3V Accession Number(s): [id number] cc: Dimitrios Tatum MD; Name,Gregg DIAMOND CLINICAL HISTORY: M16.0 - Bilateral primary osteoarthritis of hip Two views of each hip Comparison: None Findings: The bones are intact. Ydwl-tn-tdosugko degenerative changes at both femoral-acetabular joints. The soft tissues are unremarkable. IMPRESSION: No acute findings. Wqwy-vd-nqzppkxj degenerative changes bilaterally. This document has been electronically signed by: Ciaran Antonio MD on 06/08/2024 21:13:06 Dictated By: Ciaran Antonio MD Signed By: <Electronically signed by Ciaran Antonio MD in OV> 06/08/242112 DD/ 12 TD/TT: 06/08/242112 Fuel Cell Designer: [facility] External Provider IMG XR PROCEDURES Edited Result - Final documented in this encounter Visit Diagnoses Not on filedocumented in this encounter Additional Health Concerns Assessment Noted Time PHQ-9 Depression Total Score: 0 09/01/19 24 10:42 AM EDT documented as of this encounter Care Teams Corporate Counsel Relationship Specialty Start Date End Date Name, MD Gregg [address] [place] [address] PCP - General Family Medicine 04/16/15 [facility] 05/23/24 documented as of this encounter
--- OUTSIDE RECORDS SUMMARY | 2024-06-09 10:50 | XMS_ITS | Encounter Summary ---
Author Organization [employer] [facility] Address [address] [facility] 7t [place] [address] Care Team Providers Care Mobile Security Specialist Name Role Phone Name, Gregg DIAMOND Primary Care Provider [phone] Encounter Details Date Type Department Care Team (Late st Contact Info) Description 01/14/2022 Abstract [facility] [address] [place] [address] Dental, Provider, DDS Social History Tobacco Use [...] Description 07/06/2024 9:00 AM EDT Office Visit [facility] [address] [place] [address] Ayan Calvin DMD [address] [place] [address] 07/17/2024 11:30 AM EDT Office Visit [facility] [address] [place] [address] Gregg Gandhi MD [address] [place] [address] 09/21/2024 8:00 AM EDT Office Visit [facility] [address] [place] [address] Mi, Faye documented as of this encounter [...] on filedocumented in this encounter Care Teams Mobile Security Specialist Relationship Specialty Start Date End Date Name, MD Gregg [address] [place] [address] PCP - General Family Medicine 04/16/15 [facility] 05/23/24 documented as of this encounter
--- OUTSIDE RECORDS SUMMARY | 2024-06-09 10:50 | XMS_ITS | Encounter Summary ---
Author Organization [employer] Address [address] [place] [address] Care Team Providers Care Power Generating Plant Operator Name Role Phone Name, Gregg DIAMOND Primary Care Provider [phone] Reason for Visit * Reason Onset Date Comments PT1 07/27/2023 Encounter Details Date Type Department Care Team ([facility] st Contact Info) Description 07/27/2023 Telephone [facility] MED[facility] [address] [place] [address] Name, MD Gregg [address] [place] [address] PT1 Social History Tobacco Use Types Packs/Day [...] name: Dr. Carson Smith MD Facility Address: [address] [place] [address] [address], [facility], [address] Escort needed: Y/N: No Do you have a wheelchair: Y/N: No If yes- Manual or electric: Visits: 2-3 Next upcoming appt 08/03/23 documented in this encounter Plan of Treatment Upcoming Encounters Date Type Department Care Team (Late st Contact Info) Description 07/06/2024 9:00 AM EDT Office Visit [facility] ADULT [facility] [address] [place] [address] Ayan Calvin DMD [address] [place] [address] 07/17/2024 11:30 AM EDT Office Visit [facility] MED[facility] [address] [place] [address] Name, MD Gregg [address] [place], [place] [phone] 09/21/2024 8:00 AM EDT Office Visit [facility] ADULT [facility] [address] [place] [address] Faye Mi documented as of this encounter Visit Diagnoses Not on filedocumented in this encounter Additional Health Concerns Assessment Noted Time PHQ-9 Depression Total Score: 7 03/04/19 23 9:17 AM EST documented as of this encounter Care Teams Power Generating Plant Operator Relationship Specialty Start Date End Date Name, MD Gregg [address] [place] [address] PCP - General Family Medicine 04/16/15 [facility] 05/23/24 documented as of this encounter
--- OUTSIDE RECORDS SUMMARY | 2024-06-09 10:50 | XMS_ITS | Encounter Summary ---
Author Organization [employer] Address [address] [place] [address] Care Team Providers Care Global Marketing Coordinator Name Role Phone Name, Gregg DIAMOND Primary Care Provider Reason for Visit * Reason Comments Med Refill Encounter Details Date Type Department Care Team ([facility] st Contact Info) Description 11/16/2023 Refill [facility] [address] [place], [place] [phone] Yennifer Ramirez MD [address] [place] [address] Flu-like symptoms Social History Tobacco Use Types [...] 9:00 AM EDT Office Visit [facility] ADULT DENTAL [address] [place] [address] Ayan Calvin DMD [address] [place] [address] 07/17/2024 11:30 AM EDT Office Visit [facility] MEDICINE [address] [place] [address] Name, MD Gregg [address] [place] [address] 09/21/2024 8:00 AM EDT Office Visit [facility] ADULT D[facility] [address] [place] [address] Faye Mi documented as of this encounter Visit Diagnoses Diagnosis Flu-like symptoms documented in this encounter Additional Health Concerns Assessment Noted Time PHQ-9 Depression Total Score: 0 09/01/19 24 10:42 AM EDT documented as of this encounter Care Teams Global Marketing Coordinator Relationship Specialty Start Date End Date Name, MD Gregg [address] [place] [address] PCP - General Family Medicine 04/16/15 [facility] 05/23/24 documented as of this encounter
--- OUTSIDE RECORDS SUMMARY | 2024-06-09 10:50 | XMS_ITS | Encounter Summary ---
Author Organization [employer] Address [address] [place] [address] Care Team Providers Care Epic Beacon Analyst Name Role Phone Name, Gregg DIAMOND Primary Care Provider [phone] Reason for Visit * Reason Onset Date Comments clarification of tx 08/09/2023 Encounter Details Date Type Department Care Team (Late st Contact Info) Description 08/09/2023 Telephone [facility] ADULT DENTAL [address] [place] [address] Ayan Calvin, DMD [address] [place] [address] clarification of tx Social History Tobacco Use [...] you to call her. She went to [facility] for RCT today but is [...] [facility] [address] [place] [address] Ayan Calvin, RAMIREZ [address] [place] [address] 07/17/2024 11:30 AM EDT Office Visit [facility] MED[facility]INE [address] [place] [address] Name, MD Gregg [address] [place] [address] 09/21/2024 8:00 AM EDT Office Visit [facility] ADULT [facility] [address] [place] [address] Faye Mi documented as of this encounter Visit Diagnoses Not on filedocumented in this encounter Additional Health Concerns Assessment Noted Time PHQ-9 Depression Total Score: 7 03/04/19 23 9:17 AM EST documented as of this encounter Care Teams Epic Beacon Analyst Relationship Specialty Start Date End Date Name, MD Gregg [address] [place] [address] PCP - General Family Medicine 04/16/15 [facility] 05/23/24 documented as of this encounter
--- OUTSIDE RECORDS SUMMARY | 2024-06-09 10:50 | XMS_ITS | Encounter Summary ---
Author Organization [employer] Address [address] [place] [address] Care Team Providers Care Safety Admin Assistant Name Role Phone Name, Gregg DIAMOND Primary Care Provider [phone] Reason for Visit * Reason Onset Date Comments Nurse Triage 11/27/2022 Encounter Details Date Type Department Care Team ([facility] st Contact Info) Description 11/27/2022 Telephone [facility] [address] [place] [address] Name, MD Gregg [address] [place] [address] Nurse Triage Social History Tobacco Use Types [...] caller accepted this outcome Does not need rug renovator . documented in this encounter Plan of Treatment Upcoming Encounters Date Type Department Care Team (Late st Contact Info) Description 07/06/2024 9:00 AM EDT Office Visit [facility] ADULT [facility] [address] [place] [address] Ayan Calvin DMD [address] [place] [address] 07/17/2024 11:30 AM EDT Office Visit [facility] MED[facility] [address] [place] [address] Name, MD Gregg [address] [place] [address] 09/21/2024 8:00 AM EDT Office Visit [facility] AD[facility] D[facility] [address] [place] [address] Faye Mi documented as of this encounter Visit Diagnoses Not on filedocumented in this encounter Additional Health Concerns Assessment Noted Time PHQ-9 Depression Total Score: 7 03/04/19 23 9:17 AM EST documented as of this encounter Care Teams Safety Admin Assistant Relationship Specialty Start Date End Date Name, MD Gregg [address] [place] [address] PCP - General Family Medicine 04/16/15 [facility] 05/23/24 documented as of this encounter
--- OUTSIDE RECORDS SUMMARY | 2024-06-09 10:50 | XMS_ITS | Clinical Summary ---
Author Organization [employer] Address [address] [facility] 7t [place] [address] Care Team Providers Care Emergency Room Physician Assistant Name Role Phone Name, Gregg DIAMOND Primary Care Provider [phone] Allergies Active Allergy Reactions Criticality Noted Date [...] 2 sprays each nostril bid prn rhinorrhea, bahraini 15 mL 12/07/19 24 Active doxepin (SINEquan) [...] notification to Pharmacy)) Tirzepatide-Eddie ght Management (Zepbound) 7.5 MG/0.5ML solution [...] is already in the process of [place] [facility] [facility] Plan: [...] range. Recent lab work not available contacted [facility] for results. Will renew medications [...] Encounters Date Type Department Care Team Description 06/08/2024 Telephone [facility] [address] [place] [address] Gregg Gandhi MD Medication Question 06/07/2024 Orders Only [facility] External Provider, [facility] 06/07/2024 Refill [facility] [address] [facility] [place] [address] Gregg Gandhi MD 06/02/2024 Telephone [facility] [address] [place] [address] Gregg Gandhi MD Durable Medical Equipment 06/02/2024 Telephone [facility] [address] [place] [address] Gregg Gandhi MD Med Refill 05/25/2024 Telephone [facility] [address] [place] [address] Sweta Giraldo [place] Appointment Request 05/24/2024 Telephone [facility] [address] [facility] [place] [address] Gregg Gandhi MD Appointment Request 05/24/2024 Telephone [facility] [address] [place] [address] Gregg Gandhi MD 05/24/2024 Refill [facility] [address] [place] [address] Ban Granados FNP 05/23/2024 Telephone [facility] [address] [place] [address] Gregg Gandhi MD call back needed 05/23/2024 Telephone [facility] [address] [place] [address] Gregg Gandhi MD Speak to PCP 05/23/2024 Refill [facility] [address] [place] [address] Gregg Gandhi MD 05/22/2024 Patient Outreach [facility] [address] [place] [address] Gregg Gandhi MD Transition Of Care (Tcm) 05/22/[address] [address] Gregg Gandhi MD verbal order 05/18/[address] [address] Gregg Gandhi MD Nurse Triage 05/15/[address] [address] Gregg Gandhi MD Durable Medical Equipment; Call Back Request 05/12/2024 9:00 AM EDT Office Visit [facility] ADULT DENTAL [address] [place] [address] Ayan Calvin, DMD 05/09/[address] [address] Natalie Nathan, BRIAN 05/08/2024 11:15 AM EDT Office Visit [address] [address] Gregg Gandhi MD Diverticulitis (Primary Dx); Left hip pain 05/08/[address] [address] Gregg Gandhi MD Class 1 obesity (Primary Dx) 05/08/2024 Travel 05/05/[address] [address] Gregg Gandhi MD Durable Medical Equipment 05/05/2024 Patient Outreach [address] [address] Gregg Gandhi MD Transition Of Care (Tcm) 05/04/[address] [address] Gregg Gandhi MD Nurse Triage 05/03/2024 2:15 PM EDT Telemedicine [address] [address] Gregg Gandhi MD Right knee pain, unspecified chronicity (Primary Dx); Osteoarthritis of right knee, unspecified osteoarthritis type; Obesity (BMI 30-39.9) 05/03/2024 Travel 05/03/2024 Telephone [facility] PEDIAT[facility] [address] [place] [address] Gregg Gandhi MD Return Call 05/03/2024 Refill [facility] [address] [place] [address] [place], [place], [employer]AVER Osteoporosis, unspecified osteoporosis type, unspecified pathological fracture presence 05/02/[address] [address] Gregg Gandhi MD ER Follow-up; Nurse Triage 05/01/2024 9:00 AM EDT Office Visit [facility] ADULT [facility] [address] [place] [address] Ayan Calvin, DMD 05/01/2024 Orders Only [facility] External Provider, [facility] 05/01/[address] [address] Gregg Gandhi MD Prior Authorization (Lidocaine ) 04/19/2024 Travel 04/19/[address] [address] Sweta Giraldo [place] Appointment Request 04/18/[address] [address] Gregg Gandhi MD Appointment Request 04/10/2024 2:00 PM EST Office Visit [facility] [address] [place] [address] Sore throat (Primary Dx); Right ear pain 04/10/2024 10:30 AM EST Office Visit [facility] ADULT [facility] [address] [place] [address] Ayan Calvin, DMD 04/10/[address] [address] Gregg Gandhi MD 03/29/[address] [address] Gregg Gandhi MD Durable Medical Equipment 03/22/[address] [address] Gregg Gandhi MD Medication Question 03/20/2024 Refill [facility] [address] [place] [address] Gregg Gandhi MD Osteoporosis, unspecified osteoporosis type, unspecified pathological fracture presence 03/14/2024 Refill [facility] [address] [place] [address] Name, MD Gregg Bariatric surgery status from Last 3 Months Immunizations Name Administration [...] Description 07/06/2024 9:00 AM EDT Office Visit [facility] ADULT [facility]ENT[facility] [address] [place] [address] Ayan Calvin, RAMIREZ [address] [place] [address] 07/17/2024 11:30 AM EDT Office Visit [facility] [address] [facility] [place] [phone] Name, MD Gregg [address] [facility] [place] [address] 09/21/2024 8:00 AM EDT Office Visit [facility] [address] [facility] [place] [phone] Faye Mi Health Maintenance Due Date Last [...] 0204/2022, 04/09/2022, Additional history exists Tobacco Screening 05/12/2025 [...] WITHOUT PELVIS Routine 06/08/2024 9:13 PM EDT MR LUMBAR SPINE WO CONTRAST Routine 05/31/2024 [...] REGISTRATION Routine 04/10/2024 10: 30 AM EST Full PROPHYLAXIS - ADULT Routine [...] Recently Relevant to Health Maintenance Results * XR Hips Bilateral 3 or 4 Views with or without Pelvis (06/08/2024 9:13 PM EDT) Anatomical Region Laterality Modality Lower Extremities, Hip Bilateral Radiograp hic Imaging 06/08/2024 9:13 PM EDT Narrative 06/08/2024 9:14 PM EDT ? [facility] ?[address] ?[place] [address] ?XRay Report ? Signed ? Patient: Ayala,Mag ?MR#: [id number] ?? 4 ? : 1960 ?Acct:[id number] ? Age/Sex: 63 / F ?ADM Date: 06/07/24 ? Loc: HO.XRAY ? Attending Dr: Dimitrios Tatum MD ? Ordering Physician: Dimitrios Tatum MD ?? Date of Service: 06/07/24 ?? Procedure(s): XR hips CARLEY min 3V ?? Accession Number(s): [id number] ? cc: Dimitrios Tatum MD; Name,Gregg DIAMOND ? CLINICAL HISTORY: M16.0 - Bilateral primary osteoarthritis of hip ? Two views of each hip ? Comparison: None ? Findings: ?? The bones are intact. ?? Phmu-ct-yamfgrjd degenerative changes at both femoral-acetabular joints. ?? The soft tissues are unremarkable. ? IMPRESSION: ?? No acute findings. Vugs-jf-czqhmrqp degenerative changes bilaterally. ? This document has been electronically signed by: Ciaran Antonio MD on ?? 06/08/2024 21:13:06 ? Dictated By: ?Ciaran Antonio MD ? Signed By: ?<Electronically signed by Ciaran Antonio MD in OV> ? 06/08/242112 ? DD/ 12 ? TD/TT: 06/08/242112 ? [employer] Staff Officer: ? Procedure Note Starla Larry - 06/08/[address] [address] XRay Report Signed Patient: Eulalia Ayala#: [id number] 4 : 9Acct:[id number] Age/Sex: 63 / FADM Date: 06/07/24 Loc: HO.XRAY Attending Dr: Dimitrios Tatum MD Ordering Physician: Dimitrios Tatum MD Date of Service: 06/07/24 Procedure(s): XR hips CARLEY min 3V Accession Number(s): [id number] cc: Dimitrios Tatum MD; Name,Gregg DIAMOND CLINICAL HISTORY: M16.0 - Bilateral primary osteoarthritis of hip Two views of each hip Comparison: None Findings: The bones are intact. Luxq-eh-mizzmzyd degenerative changes at both femoral-acetabular joints. The soft tissues are unremarkable. IMPRESSION: No acute findings. Ddmg-oi-uagauhzg degenerative changes bilaterally. This document has been electronically signed by: Ciaran Antonio MD on 06/08/2024 21:13:06 Dictated By: Ciaran Antonio MD Signed By: <Electronically signed by Ciaran Antonio MD in OV> 06/08/242112 DD/ 12 TD/TT: 06/08/242112 [employer] Staff Officer: [employer] External Provider IMG XR PROCEDURES Edited Result - Final * MR Lumbar Spine w/o Contrast (05/31/2024 4:40 PM EDT) Anatomical Region Laterality Modality Spine, L-spine Magnetic Resonan ce 05/31/2024 4:40 PM EDT Narrative 06/01/2024 8:01 AM EDT ? [facility] ?[address] ?[place] [address] ? Magnetic Resonance Report ? Signed ? Patient: Ayala,Mag ?MR#: [id number] ?? 4 ? : 1960 ?Acct:[id number] ? Age/Sex: 63 / F ?ADM Date: 05/31/24 ? Loc: HO.MRI ? Attending Dr: Dimitrios Tatum MD ? Ordering Physician: Dimitrios Tatum MD ?? Date of Service: 05/31/24 ?? Procedure(s): MR lumbar spine wo con ?? Accession Number(s): [id number] ? cc: Dimitrios Tatum MD; Name,Gregg DIAMOND [...] Carrillo MD ??06/01/2024 07:58 AM ?? EDT ? Dictated By: ?Brennon Tejeda MD ? Signed By: ?<Electronically signed by Brennon Smith MD in OV> ? 06/01/24 0758 ? DD/ 1640 ? TD/TT: 05/31/24 1655 ? [employer] Staff Officer: ? Procedure Note Laron, Starla - 06/01/[address] [address] Magnetic Resonance Report Signed Patient: Eulalia Ayala#: [id number] 4 : 9Acct:[id number] Age/Sex: 63 / FADM Date: 05/31/24 Loc: HO.MRI Attending Dr: Dimitrios Tatum MD Ordering Physician: Dimitrios Tatum MD Date of Service: 05/31/24 Procedure(s): MR lumbar spine wo con Accession Number(s): [id number] cc: Dimitrios Tatum MD; Name,Gregg DIAMOND EXAMINATION: [...] Brennon Carrillo MD 06/01/2024 07:58 AM EDT RP Dictated By: Brennon Tejeda MD Signed By: <Electronically signed by Brennon Smith MDin OV> 06/01/24 0758 DD/ 1640 TD/TT: 05/31/24 1655 [employer] Staff Officer: [employer] External Provider IMG MRI PROCEDURES Final Result * CT Abdomen Pelvis w/o Contrast (05/04/2024 10:09 PM EDT) Anatomical Region Laterality Modality Body, Pelvis, Abdomen Computed T omography 05/04/2024 10:0 9 PM EDT Narrative 05/04/2024 10:11 PM EDT ? [facility] ?[address] ?[place] [address] ? CT Scan Report ? Signed ? Patient: Mag Ayala ?MR#: [id number] ?? 4 ? : 1960 ?Acct:[id number] ? Age/Sex: 63 / F ?ADM Date: 05/04/24 ? Loc: HO.ED ? Attending Dr: ? Ordering Physician: Mitch Roberts MD ?? Date of Service: 05/04/24 ?? Procedure(s): CT abdomen pelvis wo IV con ?? Accession Number(s): [id number] ? cc: Gregg Gandhi MD; Mitch Roberts MD ? Report Number: ?? [id number]: Total DLP = ??608.00 mGy-cm ? CLINICAL [...] osteoarthritis both ?? hips. Degenerative changes include ircwimgu-nz-zneggu facet arthropathy, ?? particularly in the lower [...] ? DD/ 08 ? TD/TT: 05/04/242208 ? [employer] Staff Officer: ? Procedure Note Laron, Image - 05/04/[address] [place] [address] [address] Scan Report Signed Patient: Eulalia Ayala#: [id number] 4 : 9Acct:[id number] Age/Sex: 63 / FADM Date: 05/04/24 Loc: HO.ED Attending Dr: Ordering Physician: Mitch Roberts MD Date of Service: 05/04/24 Procedure(s): CT abdomen pelvis wo IV con Accession Number(s): [id number] cc: Gregg Gandhi MD; Mitch Roberts MD Report Number: [id number]: Total DLP = 608.00 mGy-cm CLINICAL HISTORY: [...] moderate osteoarthritis both hips. Degenerative changes include obbzozxr-gk-sjuwwp facet arthropathy, particularly in the lower lumbar [...] in OV> 05/04/242209 DD/ 08 TD/TT: 05/04/242208 [employer] Staff Officer: [employer] External Provider IMG CT PROCEDURES Final Result * US VENOUS DUPLEX LE RT (05/02/2024 12:41 AM EDT) Anatomical Region Laterality Modality Abdomen Ultrasound 05/02/2024 12:4 1 AM EDT Narrative 05/02/2024 12:44 AM EDT ? [facility] ?[address] ?[place] [address] ? Ultrasound Report ? Signed ? Patient: Ayala,Mag ?MR#: [id number] ?? 4 ? : 1960 ?Acct:[id number] ? Age/Sex: 63 / F ?ADM Date: 03/17/25 ? Loc: HO.ED ? Attending Dr: ? Ordering Physician: Stephen Sexton MD ?? Date of Service: 05/01/24 ?? Procedure(s): US venous duplex LE RT ?? Accession Number(s): [id number] ? cc: Stephen Sexton MD; Name,Gregg DIAMOND [...] DD/ 0041 ? TD/TT: 05/02/24 0041 ? [employer] Staff Officer: ? Procedure Note Donsammiter, Image - 05/02/2024 [place] [address] Ultrasound Report Signed Patient: Riccardo AyalanMAmanda#: [id number] 4 : 9Acct:[id number] Age/Sex: 63 / FADM Date: 05/01/24 Loc: HO.ED Attending Dr: Ordering Physician: Stephen Sexton MD Date of Service: 05/01/24 Procedure(s): US venous duplex LE RT Accession Number(s): [id number] cc: Stephen Sexton MD; Name,Gregg DIAMOND CLINICAL HISTORY: atraumatic right leg knee pain Venous duplex ultrasound right lower extremity Comparison: None Findings: The visualized deep veins are fully compressible with normal Doppler color flow and spectral tracings. No popliteal cyst. IMPRESSION: 1. Negative for right lower extremity deep vein thrombosis. This document has been electronically signed by: Harhsa Guzmán MD on 05/02/2024 00:41:35 Dictated By: Harsha Guzmán MD Signed By: <Electronically signed by Harsha Guzmán MD in OV> 05/02/2441 DD/ TD/TT: 05/02/2440 [employer] Staff Officer: [employer] External Provider IMG US PROCEDURES Edited Result - Final * XR Hip left with Pelvis 1 view (05/02/2024 12:09 AM EDT) Anatomical Region Laterality Modality Lower Extremities, Hip Bilateral Radiograp hic Imaging 05/02/2024 12:0 9 AM EDT Narrative 05/02/2024 12:12 AM EDT ? [facility] ?[address] ?[place] [address] ?XRay Report ? Signed ? Patient: Ayala,Mag ?MR#: [id number] ?? 4 ? : 1960 ?Acct:[id number] ? Age/Sex: 63 / F ?ADM Date: 05/01/24 ? Loc: HO.ED ? Attending Dr: ? Ordering Physician: Stephen Sexton MD ?? Date of Service: 05/01/24 ?? Procedure(s): XR hip LT w PEL1V ?? Accession Number(s): [id number] ? cc: Stephen Sexton MD; Name,Gregg DIAMOND [...] DD/ 0009 ? TD/TT: 05/02/24 0009 ? [employer] Staff Officer: ? Procedure Note Starla Larry - 05/02/[address] [address] XRay Report Signed Patient: Eulalia Ayala#: [id number] 4 : 9Acct:[id number] Age/Sex: 63 / FADM Date: 05/01/24 Loc: HO.ED Attending Dr: Ordering Physician: Stephen Sexton MD Date of Service: 05/01/24 Procedure(s): XR hip LT w PEL1V Accession Number(s): [id number] cc: Stephen Sexton MD; Name,Gregg DIAMOND CLINICAL [...] Guzmán MD in OV> 05/02/24 0011 DD/ 000 TD/TT: 05/02/248 [employer] Staff Officer: [employer] External Provider IMG XR PROCEDURES Edited Result - Final * (ABNORMAL) POCT rapid strep A manually resulted (04/10/2024 1:59 PM EST) Rapid Strep A Screen Positive( A) Negative, None Detected Swab 04/10/2024 1:59 PM EST Joann Angel METAL CONTROL COORDINATOR POINT OF CARE TEST ENTER/EDIT O RDERABLES Final Result * BI Mammogram Screening Tomosynthesis Bilateral (04/20/2023 12:05 PM EST) Anatomical Region Laterality Modality Breast Bilateral Mammography 04/20/2023 12:0 5 PM EST Narrative 05/05/2023 8:29 AM EDT ? [facility] ? [address] ?[place] [address] ? Mammography Report ? Signed ? Patient: Ayala,Mag ?MR#: [id number] ?? 4 ? : 1960 ?Acct:[id number] ? Age/Sex: 62 / F ?ADM Date: 03/05/24 ? Loc: HO.MAMMO ? Attending Dr: Gregg Gandhi MD ? Ordering Physician: Gregg Gandhi MD ?Results: 1Negative ? Date of Service: 04/20/23 ?Follow Up: 1 Year From Orig ?? inal Mammogram ? Procedure(s): MM tomosynthesis screening BI ?? Accession Number(s): [id number] ? cc: Oksana,Gregg DIAMOND ? EXAMINATION: ?? MM SCREENING DIGITAL [...] ?05/05/[address] ? DD/ 1205 ? TD/TT: ? [employer] Staff Officer: ? Procedure Note Donotheribertointerpreter, Image - 05/05/2023 [facility] [address] [place] [address] Mammography Report Signed Patient: Riccardo AyalanMR#: [id number] 4 : 9Acct:[id number] Age/Sex: 62 / FADM Date: 04/20/23 Loc: HO.MAMMO Attending Dr: Gregg Gandhi MD Ordering Physician: Gregg Gandhi MDResults: 1Negative Date of Service: 04/20/23Follow Up: 1 Year From Orig inal Mammogram Procedure(s): MM tomosynthesis screening BI Accession Number(s): [id number] cc: Gregg Gandhi MD EXAMINATION: MM SCREENING [...] in OV> 05/05/23 0825 DD/ 1205 TD/TT: [employer] Staff Officer: us Escobedo Name IMG BI PROCEDURES Final Result * Hm Colonoscopy (08/08/2020 1:49 PM EDT) Colonoscopy Normal Normal Narrative Anastasia Dykes - 08/08/2020 1:49 PM EDT Recommended [address] [facility] Provider HEALTH MAINTENANCE Final Result [...] ?? Darek SS et al. BOO. 2013;310(19): 5332-1356 ?? (http://education.Ekinops.Constant Contact/faq/CHQ466) Non-HDL Cholesterol 125 <130 mg/dL (calc) [facility] Comment: For patients with diabetes plus 1 major ASCVD risk ?? factor, treating to a non-HDL-C goal of <100 mg/dL ?? (LDL-C of <70 mg/dL) is considered a therapeutic ?? option. Triglycerides 80 <150 mg/dL [facility] 05/20/2020 9:32 AM EDT us Gregg Gandhi MD LAB BLOOD ORDERABLES Final Resul t [facility] [address] [place] [address], from Last 3 Months or Most Recently Relevant to Health Maintenance Insurance [facility] [employer] Member Subscriber Plan / Payer (Ef fective 2023-Present) Name:Mag Ayala Relation to Subscriber:Self Name:Mag Ayala Payer ID:Not on file Group ID:[id number] Type:Not on file Address: [address] STANDARD * Guarantor: Mag Ayala Account Type Relation to Patient Date of Phone Billing Address Personal/Family Self [address] Care Teams Emergency Room Physician Assistant Relationship Specialty Start Date End Date Name, MD Gregg [address] [place] [address] PCP - General Family Medicine 04/16/15 [facility] 05/23/24
--- OUTSIDE RECORDS SUMMARY | 2024-06-09 10:50 | XMS_ITS | Encounter Summary ---
Author Organization [employer] Address [address] [facility] 7t [place] [address] Care Team Providers Care Governor Assembler Name Role Phone Name, Gregg DIMAOND Primary Care Provider [phone] Reason for Visit * Reason Onset Date Comments broken tooth to hold partial 02/28/2024 Encounter Details Date Type Department Care Team (Late st Contact Info) Description 02/28/2024 Telephone [facility] ADULT D[facility]AL [address] [place] [address] Ayan Calvin, DMD [address] [place] [address] broken tooth to hold partial Social History [...] [facility] [address] [place] [address] Ayan Calvin, RAMIREZ [address] [place] [address] 07/17/2024 11:30 AM EDT Office Visit [facility] [address] [place] [address] Name, MD Gregg [address] [place] [address] 09/21/2024 8:00 AM EDT Office Visit [facility] ADULT [facility] [address] [place] [address] Faye Mi documented as of this encounter Visit Diagnoses Not on filedocumented in this encounter Additional Health Concerns Assessment Noted Time PHQ-9 Depression Total Score: 0 09/01/19 24 10:42 AM EDT documented as of this encounter Care Teams Governor Assembler Relationship Specialty Start Date End Date Name, MD Gregg [address] [place] [address] PCP - General Family Medicine 04/16/15 [facility] 05/23/24 documented as of this encounter
--- OUTSIDE RECORDS SUMMARY | 2024-06-09 10:50 | XMS_ITS | Encounter Summary ---
Author Organization [employer] Address [address] [facility] [address] [address] [address] 7[address] [place] [address] Care Team Providers Care Music Specialist Name Role Phone Name, Gregg DIAMOND Primary Care Provider [phone] Reason for Visit * Reason Comments Med Refill Encounter Details Date Type Department Care Team ([facility] st Contact Info) Description 06/07/2024 Refill [facility] MED[facility] [address] [place], [place] [phone] Name, MD Gregg [address] [place] [address] Social History Tobacco Use Types Packs/Day Years [...] Description 07/06/2024 9:00 AM EDT Office Visit [facility] ADULT DENTAL [address] [place] [address] Ayan Calvin, RAMIREZ [address] [place] [address] 07/17/2024 11:30 AM EDT Office Visit [facility] MED[facility] [address] [place] [address] Name, MD Gregg [address] [place] [address] 09/21/2024 8:00 AM EDT Office Visit [facility] ADULT DENTAL [address] [place] [address] Faye Mi documented as of this encounter Visit Diagnoses Not on filedocumented in this encounter Additional Health Concerns Assessment Noted Time PHQ-9 Depression Total Score: 0 09/01/19 24 10:42 AM EDT documented as of this encounter Care Teams Music Specialist Relationship Specialty Start Date End Date Name, MD Gregg [address] [place] [address] PCP - General Family Medicine 04/16/15 [facility] 05/23/24 documented as of this encounter
--- OUTSIDE RECORDS SUMMARY | 2024-06-09 10:50 | XMS_ITS | Encounter Summary ---
Author Organization [employer] Address [address] [facility] 7t [place] [address] Care Team Providers Care Research Investigator Name Role Phone Name, Gregg DIAMOND Primary Care Provider [phone] Reason for Visit * Reason Onset Date Comments Appointment Request 04/18/2024 Encounter Details Date Type Department Care Team ([facility] st Contact Info) Description 04/18/2024 Telephone [facility] MEDICINE [address] [place] [address] Name, MD Gregg [address] [place] [address] Appointment Request Social History Tobacco Use Types [...] PCP. Pt states will be out of [place] from June 18- as she has an appointment with the oncologist on the and with the neurosurgeon on June 27. documented in this encounter Plan of Treatment Upcoming Encounters Date Type Department Care Team (Late st Contact Info) Description 07/06/2024 9:00 AM EDT Office Visit [facility] ADULT DENTAL [address] [place] [address] Ayan Calvin, RAMIREZ [address] [place] [address] 07/17/2024 11:30 AM EDT Office Visit [facility] MEDICINE [address] [place] [address] Name, MD Gregg [address] [place] [address] 09/21/2024 8:00 AM EDT Office Visit [facility] ADULT DENTAL [address] [place] [address] Faye Mi documented as of this encounter Visit Diagnoses Not on filedocumented in this encounter Additional Health Concerns Assessment Noted Time PHQ-9 Depression Total Score: 0 09/01/19 24 10:42 AM EDT documented as of this encounter Care Teams Research Investigator Relationship Specialty Start Date End Date Name, MD Gregg [address] [place] [address] PCP - General Family Medicine 04/16/15 [facility] 05/23/24 documented as of this encounter
--- OUTSIDE RECORDS SUMMARY | 2024-06-09 10:50 | XMS_ITS | Encounter Summary ---
Author Organization [employer] Address [address] [facility] 7[address] [place] [address] Care Team Providers Care Scudding Inspector Name Role Phone Name, Gregg DIAMOND Primary Care Provider [phone] Reason for Visit * Reason Onset Date Comments Medication Question 06/08/2024 Encounter Details Date Type Department Care Team ([facility] st Contact Info) Description 06/08/2024 Telephone [facility] MEDICINE [address] [place] [address] Name, MD Gregg [address] [place] [address] Medication Question Social History Tobacco Use Types [...] encounter Miscellaneous Notes * Telephone Encounter - Shy Elder RN - 06/08/2024 2:46 PM EDT Assessment: Patient telephone call c/o knee pain. Symptoms have been present for weeks. Symptoms are episodic. Symptoms worsen with walking and movement. Symptoms are relieved by Toradol injection Patient is taking (treatment/meds) taking 3 tylenols with no help. Had Toradol injection yesterday after calling for Instead as she was screaming from the pain. Patient states she was pain free for 4 hours. Patient is currently in bed and unable to move because the pain. States she has an injection scheduled for tomorrow but would love to have something to help with her breakthrough pain like the flexeril or the gabapentin. Advised patient she can come to walk in today or she can ask tomorrow at her appointment for medications. Patient states she will call us if the pain isn't better after injections in a few days. VS as follows (if applicable): Pain level: 10, Location: knee, hip, back Allergies Allergen Reactions Nalbuphine Anaphylaxis and Shortness of breath Current Outpatient Medications Medication Sig Dispense Refill albuterol 108 (90 Base) MCG/ACT inhaler Inhale 2 puffs every 4 (four) hours if needed. alendronate (Fosamax) 70 MG tablet TAKE 1 TABLET BY MOUTH ONCE A WEEK WITH 6 TO 8 OZ OF WATER 20 MINUTES BEFORE FIRST FOOD OF DAY. DO NOT LIE DOWN FOR 30 MINUTES. 12 tablet 0 Aspirin Low Dose 81 MG EC tablet Take 81 mg by mouth at bedtime. azithromycin (Zithromax) 250 MG tablet Take 2 tabs day and then 1 tab daily 6 tablet 0 chlorhexidine (Peridex) 0.12 % solution Place 15 mL into mouth between cheek and gum every 12 (twelve) hours. cholecalciferol (Vitamin D-3) 25 MCG tablet TAKE 1 TABLET BY MOUTH EVERYDAY AT NOON 90 tablet 0 cyclobenzaprine (Flexeril) 10 MG tablet one qhs prn pain docusate sodium (Colace) 100 MG capsule TAKE 1 CAPSULE BY MOUTH EVERY DAY 90 capsule 1 doxepin (SINEquan) 75 MG capsule Take 1 capsule by mouth at bedtime estazolam (Prosom) 1 MG tablet Take 1 mg by mouth at bedtime. estazolam (Prosom) 2 MG tablet Take 2 mg by mouth at bedtime. Fluticasone-Salmeterol 250-50 MCG/ACT aerosol powder Inhale 1 puff by mouth twice daily. Rinse mouth after using. gabapentin (Neurontin) 100 MG capsule Take 1 capsule by mouth every 8 (eight) hours. hydroCHLOROthiazide 12.5 MG tablet TAKE 1 TABLET BY MOUTH EVERYDAY AT NOON 90 tablet 3 hydrocortisone 0.5 % cream Apply topically 2 times daily. 28 g 1 ipratropium (Atrovent) 0.06 % nasal spray 2 sprays each nostril bid prn rhinorrhea, armenian 15 mL 0 levothyroxine (Synthroid, Levoxyl) 100 MCG tablet Take 1 tablet by mouth at bed time. Lidocaine (HM Lidocaine Patch) 4 % patch Apply once a day to affected area of the low back 30 patch3 magnesium oxide (Mag-Ox) 400 MG tablet TAKE 1 TABLET BY MOUTH AT NOON WITH FOOD 90 tablet 1 meclizine (Antivert) 25 MG tablet TAKE 1 TABLET BY MOUTH TWICE DAILY NEEDED 60 tablet 4 midodrine (Proamatine) 10 MG tablet Take 1 tablet by mouth every 12 (twelve) hours. omeprazole (PriLOSEC) [address] capsule TAKE 1 CAPSULE BY MOUTH EVERY MORNING BEFORE BREAKFAST. DO NOT BREAK, CRUSH, DISSOLVE OR CHEW 90 capsule 3 perphenazine 4 MG tablet Take 1 tablet by mouth every 12 (twelve) hours. pyridoxine (Vitamin B-6) 100 MG tablet TAKE 2 TABLETS BY MOUTH ONCE DAILY AT NOON 180 tablet 3 Tirzepatide-Weight Management (Zepbound) 10 MG/0.5ML solution auto-injector Inject 0.5 mL (10 mg) under the skin 1 (one) time per week. 2 mL 2 Transderm-Scop 1 MG/3DAYS patch 72 hour APPLY 1 PATCH [place] EVERY 3 DAYS 10 patch 0 venlafaxine (Effexor) 25 MG tablet TAKE 1 TABLET BY MOUTH EVERYDAY AT NOON No current facility-administered medications for this visit. Patient Active Problem List Diagnosis Date Noted Bronchitis 05/02/2024 Injury of right great toe 05/02/2024 Osteoarthritis of right knee 05/02/2024 Postop check 05/02/2024 Viral upper respiratory tract infection with cough 12/07/2023 Asthma exacerbation 12/01/2023 Panic attack 12/01/2023 Flu-like symptoms 11/11/2023 Severe dental caries 10/01/2023 Non-restorable tooth 10/01/2023 Constipation 09/01/2023 Dysuria 09/01/2023 Lipoma of abdominal wall 09/01/2023 Lipoma of back 09/01/2023 Somnolence, daytime 09/01/2023 Right-sided back pain 09/01/2023 Obesity (BMI 30-39.9) 09/01/2023 Clostridium difficile infection 09/01/2023 Fall 09/01/2023 Dizziness 09/01/2023 Acute right-sided back pain 08/24/2023 Clostridium difficile enterocolitis 06/17/2023 History of cholecystectomy 06/17/2023 Hx of pheochromocytoma 11/20/2022 Gastroenteritis 10/05/2022 Class 1 obesity 07/30/2022 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 Diverticulosis of colon 07/30/2022 Hyperplastic colon polyp 07/30/2022 Kidney calculi 07/30/2022 Lower abdominal pain 07/30/2022 Rectal bleeding 07/30/2022 Right shoulder injury 07/30/2022 Blood in urine 01/14/2022 Nausea & vomiting 01/14/2022 Osteoporosis 01/14/2022 Retention of urine 01/14/2022 Vertigo 01/14/2022 Over weight 07/14/2018 Migraine 07/14/2017 Acid reflux 06/19/2016 Chronic low back pain 05/07/2015 Hx of gastric bypass 03/12/2015 Chronic headache disorder 07/12/2012 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[facility]) 06/22/2012 Right upper quadrant pain 06/22/2012 Bronchial asthma 06/09/2012 Obstructive sleep apnea syndrome 04/06/2012 Annular tear of lumbar disc 03/10/2012 Backache 01/20/2012 Diverticular disease 01/20/2012 Helicobacter pylori antibody above reference range 01/12/2012 Impaired fasting glucose 12/14/2011 Morbid obesity ([facility]) 12/14/2011 Hypertension 10/14/2011 Anxiety and depression 08/07/2011 Anxiety 07/22/2011 Acquired hypothyroidism 07/22/2011 Pseudotumor cerebri 07/05/2011 Shy Elder RN * Telephone Encounter - Shy Elder RN - 06/08/2024 2:13 PM EDT Telephone call placed to patient in regards to message below. No answer, left voicemail. Patient tocall as needed. * Telephone Encounter - Shy Elder RN - 06/08/2024 1:52 PM EDT Telephone call returned to patient in regards to below message. Having pain in knee and back and arm. Patient verbalized understanding and denied having any further questions or concerns at this time. Patient to follow up as needed. Urology appointment August 03 at 9a, * Telephone Encounter - Marla Magallon - 06/08/2024 10:13 AM EDT Tc from pt requesting cyclobenzaprine (Flexeril) 10 MG tablet. [phone] documented in this encounter Plan of Treatment Upcoming Encounters Date Type Department Care Team (Late st Contact Info) Description 07/06/2024 9:00 AM EDT Office Visit [facility] ADULT DENTAL [address] [place] [address] Ayan Calvin DMD [address] [place] [address] 07/17/2024 11:30 AM EDT Office Visit [facility] MEDICINE [address] [place] [address] Name, MD Gregg [address] [place] [address] 09/21/2024 8:00 AM EDT Office Visit [facility] ADULT DENTAL [address] [place] [address] Faye Mi documented as of this encounter Visit Diagnoses Not on filedocumented in this encounter Additional Health Concerns Assessment Noted Time PHQ-9 Depression Total Score: 0 09/01/19 24 10:42 AM EDT documented as of this encounter Care Teams Scudding Inspector Relationship Specialty Start Date End Date NameGregg MD [address] [place] [address] PCP - General Family Medicine 04/16/15 [facility] 05/23/24 documented as of this encounter
--- OUTSIDE RECORDS SUMMARY | 2024-06-09 10:51 | XMS_ITS | Encounter Summary ---
Author Organization [employer] Address [address] [place] [address] Care Team Providers Care Tricot Knitter Name Role Phone Name, Gregg DIAMOND Primary Care Provider [phone] Reason for Visit * Reason Onset Date Comments PT1 02/25/2023 Encounter Details Date Type Department Care Team ([facility] st Contact Info) Description 02/25/2023 Telephone [facility] MEDICINE [address] [place] [address] Name, MD Gregg [address] [place] [address] PT1 Social History Tobacco Use Types Packs/Day [...] - valid through 06/2023 [facility] neurology - [id number] authorized Dr Chakraborty - [id number] pending [facility] - [id number] authorized [facility] - [id number] authorized Renal [facility] Trans - [id number] authorized ENT - [id number] pending [facility] medical office - [id number] pending * Telephone Encounter - Cameron Su - 02/25/2023 4:29 PM EST PT1 needed Date: N/A Time: N/A Visits: 2 or 3 monthly Address: [address] [facility] Facility: [facility] Cardiovascular Wheel Chair: No Bindery Chief Needed: No PT1 needed Date: N/A Time: N/A Visits: 2 or 3 Monthly Address: [address] [facility] Facility: [facility] Neurology Wheel No Bindery Chief Needed: No PT1 needed Date: N/A Time: N/A Visits: 2 or 3 Monthly Address: [address] [facility] Facility: Dr Chakraborty Wheel Chair: No Bindery Chief Needed: No PT1 needed Date: N/A Time: N/A Visits: 2 or 3 Monthly Address: [address] [place] [address] dr LambertRafy [place] Facility: [facility] General Surgery Wheel Chair: No Bindery Chief Needed: No PT1 needed Date: N/A Time: N/A Visits: 2 or 3 Monthly Address: [address] [place] [address] Facility: [facility] Wheel Chair: No Bindery Chief Needed: No PT1 needed Date: N/A Time: N/A Visits: 2 or 3 monthly Address: [address] [facility] Facility: [facility] Wheel Chair: No Bindery Chief Needed: No PT1 needed Date: N/A Time: N/A Visits: 2 or 3 monthly Address: [address] [facility] Facility: [facility] Wheel Chair: No Bindery Chief Needed: No PT1 needed Date: N/A Time: N/A Visits: 2 or 3 Monthly Address: [address] [facility] [address] Cesia DESOUZA Facility: [facility] medical Office Wheel Chair: No Bindery Chief Needed: No PT1 needed Date: N/A Time: N/A Visits: 2 or 3 Monthly Address: [address] [place] [address] Facility: [facility] Wheel Chair: No Bindery Chief Needed: No documented in this encounter Plan of Treatment Upcoming Encounters Date Type Department Care Team (Late st Contact Info) Description 07/06/2024 9:00 AM EDT Office Visit [facility] ADULT DENTAL [address] [place] [address] Ayan Calvin, RAMIREZ [address] [place] [address] 07/17/2024 11:30 AM EDT Office Visit [facility] MEDICINE [address] [place] [address] Name, MD Gregg [address] [place] [address] 09/21/2024 8:00 AM EDT Office Visit [facility] ADULT DENTAL [address] [place] [address] Faye Mi documented as of this encounter Visit Diagnoses Not on filedocumented in this encounter Additional Health Concerns Assessment Noted Time PHQ-9 Depression Total Score: 7 03/04/19 23 9:17 AM EST documented as of this encounter Care Teams Tricot Knitter Relationship Specialty Start Date End Date Name, MD Gregg [address] [place] [address] PCP - General Family Medicine 04/16/15 [facility] 05/23/24 documented as of this encounter
--- OUTSIDE RECORDS SUMMARY | 2024-06-09 10:51 | XMS_ITS | Data Portability ---
Author Organization [place] - [facility], Allergy Address [address] [place] [id number] Assessment No assessment recorded. Plan of Treatment [...] Details Recorded Time Otorrhea of right ear 35219502488 00963 Active 2020 Otorrhea, right ear; Note: Date Diagnosed : 04/15/2020 9:41 AM (H92.11) Not Available [facility] 4 02:41:49 Sensorine ural hearing loss 65209331 Active 2014 Sensorine ural hearing loss, unilatera l, right ear, with unrestric peggy hearing on the contralat eral side; Note: Date Diagnosed : 5 1:13 PM (H90.41) Not Available [facility] 4 02:41:50 Impacted cerumen of bilateral ears 53000917265 33689 Active 2015 Impacted cerumen, bilateral ; Note: Date Diagnosed : 08/12/2015 12:36 PM (H61.23) [facility] 4 02:41:46 Impacted cerumen 75134328 Active 2014 Disorders of external ear: Impacted cerumen; Note: Date Diagnosed : 11/12/2014 9:15 PM (380.4) Not Available [facility] 4 02:41:52 Infective otitis externa of left ear 74279478596 13510 Active 2014 Other infective otitis externa, left ear; Note: Date Diagnosed : 11/15/2014 4:59 PM (H60.392) Not Available [facility] 4 02:41:47 Impacted cerumen in left ear 59878297567 60693 Active 2014 Impacted cerumen, left ear; Note: Date Diagnosed : 11/15/2014 4:59 PM (H61.22) Not Available [facility] 4 02:41:51 Mixed conductiv e and sensorine ural hearing loss of left ear 29774288522 107 Active 2014 Mixed conductiv e and sensorine ural hearing loss, unilatera l, left ear, with unrestric peggy hearing on the contralat eral side; Note: Date Diagnosed : 11/15/2014 5:00 PM (H90.72) Not Available [facility] 4 02:41:46 Dysphonia 77126026 Active 2016 Dysphonia ; Note: Date Diagnosed : 05/13/2016 10:26 AM (R49.0) Not Available [facility] 4 02:41:43 Sensorine ural hearing loss of bilateral ears 952529607 Active 2016 Sensorine ural hearing loss, bilateral ; Note: Date Diagnosed : 7 4:52 PM (H90.3) Sensori neural hearing loss, bilateral ; Note: Date Diagnosed : 08/12/2015 11:37 AM (H90.3) ; Start Date : 6 Not Available [facility] 4 02:41:48 Dizziness and giddiness 245948487 Active 2016 Dizziness and giddiness ; Note: Date Diagnosed : 08/17/2016 1:43 PM (R42) Not Available [facility] 4 02:41:51 Chronic pharyngit is 736624 Active 2016 Chronic sore throat; Note: Date Diagnosed : 05/13/2016 10:24 AM (J31.2) Not Available [facility] 4 02:41:44 Unilatera l sensorine ural hearing loss with unrestric peggy hearing on the contralat eral side Active 2014 Sensorine ural HL, unilatera l; Note: Date Diagnosed : 11/12/2014 9:56 PM (389.15) Not Available [facility] 4 02:41:44 Benign paroxysma l positiona l vertigo 327539694 Active 2020 Benign paroxysma l vertigo, left ear; Note: Date Diagnosed : 1 9:47 AM (H81.12) Not Available [facility] 4 02:41:53 Itching of skin 255442485 Active 2016 Other pruritus; Note: Date Diagnosed : 04/10/2016 11:46 AM (L29.8) Not Available [facility] 4 02:41:47 Infective otitis externa 42633764 Active 2014 Acute otitis externa; Note: Date Diagnosed : 11/12/2014 9:55 PM (380.10) Not Available [facility] 4 02:41:48 Mixed conductiv e and sensorine ural hearing loss of right ear 62210043709 105 Active 2014 Mixed conductiv e and sensorine ural hearing loss, unilatera l, right ear, with unrestric peggy hearing on the contralat eral side; Note: Date Diagnosed : 11/15/2014 5:00 PM (H90.71) Not Available [facility] 4 02:41:49 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 hearing on the contralat eral side Active 2014 Mixed hearing loss, unilatera l; Note: Date Diagnosed : 11/12/2014 9:56 PM (389.21) Not Available [facility] 4 02:41:46 Problem Notes None recorded. Medical Equipment None Reported. Medications Name Sig Start Date Stop Date Status Note LastModified by Organization Details LastModified Time medbox status USE DIRECTED active Not Available Not Available No t Available cyclobenz aprine 10 mg tablet 2018 active Medicati on ID: [id number] D uration Value: 10 Brand Name: cycloben [...] by mouth 03/20 completed Medicati on ID: [id number] Du ration Value: 7 Brand Name: Augmenti n Send Method: E-Prescr ibed Sub s Allowed: subs OK Medic ationGen ericName : Augmenti n Not Available Not Available Not Available Qvar 80 mcg/actua tion Metered Aerosol oral inhaler 03/20 completed Medicati on ID: [id number] D uration Value: 30 Brand Name: Qvar [...] mg tablet 03/21 completed Medicati on ID: [id number] D uration Value: 30 Reason: () Brand Name: dorene rubio Method: E-Prescr ibed Sub s Allowed: subs OK Medic ationGen ericName : perphena nikhil Not Available Not Available Not Available ipratropi um 0.5 mg-albute rol 3 mg (2.5 mg base)/3 mL nebulizat ion soln 03/20 completed Medicati on ID: [id number] D uration Value: 7 Brand Name: ipratrop [...] 2 drop 03/20 completed Medicati on ID: [id number] Du ration Value: 7 Prescri bed By [...] ear drops 03/20 completed Medicati on ID: [id number] Br and Name: Debrox S end Method: [...] 3 drop 03/20 completed Medicati on ID: [id number] D uration Value: 10 Brand Name: Pred [...] mg tablet 03/21 completed Medicati on ID: [id number] D uration Value: 28 Reason: () Brand Name: oxycodon e-acetam inophen Send Method: E-Prescr ibed Sub s Allowed: subs OK Medic ationGen ericName : oxycodon e-acetam inophen Not Available Not Available Not Available ofloxacin 0.3 % ear drops Apply 5 drop into both ears twice a day 03/20 completed Medicati on ID: [id number] D uration Value: 7 Brand Name: ofloxaci [...] mg tablet 12/22 completed Medicati on ID: [id number] Re ason: () Brand Name: Klonopin Send Method: E-Prescr ibed Sub s Allowed: subs OK Medic ationGen ericName : Klonopin Not Available Not Available Not Available meclizine 25 mg tablet TAKE 1 TABLET BY MOUTH TWICE DAILY NEEDED active Not Available Not Available No t Available baclofen 10 mg tablet 2018 active Medicati on ID: [id number] D uration Value: 30 Brand Name: baclofen Send Method: E-Prescr ibed Sub s Allowed: subs OK Speci al Instruct ion: TAKE 1 TABLET TWICE DAILY Me dication GenericN galindo: baclofen Not Available Not Available Not Available doxepin 100 mg capsule 09/30 completed Medicati on ID: [id number] Re ason: () Brand Name: doxepin Send Method: E-Prescr ibed Sub s Allowed: subs OK Medic ationGen ericName : doxepin Not Available Not Available Not Available oseltamiv ir 75 mg capsule TAKE 1 CAPSULE BY MOUTH TWICE DAILY FOR 5 DAYS 03/20 completed Not Available Not Available Not Available levothyro xine 125 mcg tablet 03/21 completed Medicati on ID: [id number] D uration Value: 30 Reason: () Brand [...] for pain 03/21 completed Medicati on ID: [id number] Re ason: () Brand Name: oxycodon e Send Method: E-Prescr ibed Sub s Allowed: subs OK Medic ationGen ericName : oxycodon e Not Available Not Available Not Available clotrimaz ole 1 % topical solution 03/20 completed Medicati on ID: [id number] P rescribe d By Name: Josue johnson [...] elayed release 03/20 completed Medicati on ID: [id number] D uration Value: 30 Brand Name: omeprazo le Send Method: E-Prescr ibed Sub s Allowed: subs OK Speci al Instruct ion: TAKE 1 CAPSULE BY MOUTH EVERY DAY 30 MINUTES TO 1 HOUR BEFORE MEALS Me dication GenericN galindo: omeprazo le Not Available Not Available Not Available Cortispor in 3.5 mg/g-10,0 00 unit/g-0. 5 % topical cream 12/22 completed Medicati on ID: [id number] Re ason: () Brand Name: Cortispo rin Send Method: E-Prescr ibed Sub s Allowed: subs OK Medic ationGen ericName : Cortispo rin Not Available Not Available Not Available topiramat e 200 mg tablet 03/20 completed Medicati on ID: [id number] D uration Value: 30 Brand Name: topirama [...] mg tablet 03/20 completed Medicati on ID: [id number] D uration Value: 20 Brand Name: ibuprofe [...] left ear 03/20 completed Medicati on ID: [id number] D uration Value: 7 Brand Name: Cortispo [...] drops,rigo pension 03/20 completed Medicati on ID: [id number] D uration Value: 14 Brand Name: TobraDex Send Method: E-Prescr ibed Sub s Allowed: subs OK Speci al Instruct ion: Instill 3 drops in the affect ear BID for 10 days Med icationG enericNa me: TobraDex Not Available Not Available Not Available Flovent HFA 220 mcg/actua tion aerosol inhaler 03/20 completed Medicati on ID: [id number] D uration Value: 60 Brand Name: Flovent [...] as directed 03/20 completed Medicati on ID: [id number] D uration Value: 7 Brand Name: DermOtic [...] mcg capsule 11/12 completed Medicati on ID: [id number] Re ason: () Brand Name: Tirosint Send [...] Updated DateTime 03/20/2024 160.02 cm 30.8 kg/m2 57260.07 g Natacha Childs [place] - [facility] 03/20/2024 13:01:51 Social History None recorded. Functional Status None recorded. Mental Status None recorded. Family History Nothing Reported. Medical History No medical history recorded. Gynecological HistoryNo gynecological history recorded. Obstetrics History GPAL:G 0 P 0 0 0 0 Past Encounters Encounter ID Performer Location Encounter Start Date Encounter Closed Date Diagnosis/Indication Diagnosis SNOMED-CT Code Diagnosis ICD10 Code Diagnosis Note [id number] JOSUE SHEPHERD MD [facility] [address] [address] 03/20/2024 12:52:27 03/20/2024 13:16:19 Impacted cerumen of bilateral ears [id number] H61.23 She has very narrow canals and [...] Schrader Member ID Guarantor Name 03/20/2024 1 [facility] - DOS ON OR AFTER 2022 - HALFWAY OPTIONS AND ONE CARE (MEDICARE REPLACEMENT/ADV ANTAGE - PPO) Mag Ayala [id number] Mag Ayala Notes Date Note Type Note Provider Name and Address Organization Details Recorded Time 03/20/2024 text/html Dizziness now and then, having some ear itching. JOSUE SHEPHERD MD [address] [place] [address], [phone], [facility] - [facility] 03/20/2024 17:18:34 OBGyn Episode No OBEpisode recorded.
--- OUTSIDE RECORDS SUMMARY | 2024-06-09 10:51 | XMS_ITS | Encounter Summary ---
Author Organization [employer] Address [address] [facility] [address] [place] [address] Care Team Providers Care Panel Installer Name Role Phone Name, Gregg DIAMOND Primary Care Provider [phone] Encounter Details Date Type Department Care Team (Late st Contact Info) Description 07/20/2022 Abstract [facility] MEDICINE [address] [place] [address] Name, MD Gregg [address] [place] [address] Social History Tobacco Use Types Packs/Day Years [...] [facility] [address] [place] [address] Ayan Calvin DMD [address] [place] [address] 07/17/2024 11:30 AM EDT Office Visit [facility] MEDICINE [address] [place], [place] [address] [address] Name, MD Gregg [address] [facility] [place] [address] 09/21/2024 8:00 AM EDT Office Visit [facility] [address] [facility] [place] [address] Faye Mi documented as of this encounter [...] documented as of this encounter Care Teams Panel Installer Relationship Specialty Start Date End Date Name, [place] [address] PCP - General Family Medicine 04/16/15 [facility] 05/23/24 documented as of this encounter
--- OUTSIDE RECORDS SUMMARY | 2024-06-09 10:51 | XMS_ITS | Continuity of Care Document ---
Author Organization [employer], Id in - [facility] Address [address] [place] [id number] Care Team Providers Care Business Continuity Director Name Role Phone HIM CCA OTHER NAME, CUAUHTEMOC Primary Care Provider [phone] Assessment No assessment recorded. Plan of Treatment Reminders Order Date Submit Date Provider Last Modified By Organization Details Last Modified Time Details Appointments None recorded. Lab None recorded. Referral None recorded. Procedures None recorded. Surgeries None recorded. Imaging None recorded. Medication Orders ketorolac 30 mg/mL injection solution 2024 025 [facility], [address] [place] [address], [id number], 18:32:46 Celebrex 100 mg capsule 2024 025 [facility], [address] [place] [address], [id number], 13:10:19 Patient TargetsNo targets recorded. Patient InstructionsNo instructions recorded. Reason for Referral None Reported. Medical Equipment None Reported. Allergies Allergen ID Allergen Name Allergen Category Reaction Reaction Severity Criticality Documentation Date Start Date Code Code System Note Provider Name and Address Organization Details Recorded Time 95530 [facility] medicatio n Not available Not available Not available 05/19/2024 7550 RxNorm Christina Ashford MD [address] [place] [address],[address], [place], [address] [facility] [employer] 13:03:23 97834 tramadol medicatio n Not available Not available Not available 06/07/2024 47223 RxNorm Not Available [employer] - production 17:33:16 [...] Address Organization Details Last Updated DateTime 5 89536.8 g 98 % 98 % 98 [degF] 14 /min 80 /min 157.48 cm 110 mm[Hg] 78 mm[Hg] Not Available [employer] - production 5 18:25:18 Social History None recorded. Functional Status None recorded. Mental Status None recorded. Family History Nothing Reported. Medical History No medical history recorded. Gynecological HistoryNo gynecological history recorded. Obstetrics History GPAL:G 0 P 0 0 0 0 Past Encounters Encounter ID Performer Location Encounter Start Date Encounter Closed Date Diagnosis/Indication Diagnosis SNOMED-CT Code Diagnosis ICD10 Code Diagnosis Note [id number] Christina Ashford MD Main - [facility] [address] [place] [phone] 05/19/2024 12:56:41 05/19/2024 14:17:51 Osteoarthritis of multiple joints 486905870 M15.9 advised ice / wrapped in a [...] makes her feel Chronic pain syndrome 37 6656093 G89.4 Explained to patient we cannot offer [...] and pain management and reviewed red flags [id number] Trisha Bello MD Main - [facility] [address] [place] [phone] 06/07/2024 18:25:16 06/07/2024 21:15:18 Pain 60474169 R52 As noted, we were called to see this patient regarding concerns of acute on chronic back and joint pain. Evaluation in the field was performed by my home service advisor colleague, as noted above, I provided real-time [...] Member ID Schrader Member ID Guarantor Name 06/07/2024 1 [facility] - DOS ON OR AFTER 2022 - DUAL ELIGIBLE - [facility] OPTIONS AND ONE CARE (MEDICARE REPLACEMENT/ADV ANTAGE - HMO) Mag Ayala [id number] Mag Ayala Notes Date Note Type Note Provider Name and Address Organization Details Recorded Time 06/07/2024 text/html HPI: Rn calling for back [...] Ulcerative Colitis), CancerPMH Reviewed at 06/07/2024 - :33Allergies Reviewed at 06/07/2024 - :33 ...................... ...................... ...................... ...................... ...................... ...................... ......... Demonstrator Sewing Techniques Note From Dionicio Hawkins: Patient alert and [...] steady, even GAIT to open the door. [facility] advises 15 mg Toradol now will call in two days of medication and to follow up with PCP. Medication administered as ordered without complication using five rights. Red flags, patient education discussed. [facility] Medication Orders: ketorolac 30 mg/mL injection solution: Administered Comment: 15mg IM, oral order administered ...................... ...................... ...................... ...................... ...................... ...................... ......... [facility] Consulted: Trisha Bello ...................... ...................... ...................... ...................... ...................... ...................... ......... Disposition: Mel Bello MD [address] [facility],[address], [place], [address], [employer] - IxsystemsSARANYA HEIN 06/07/2024 20:07:41 OBGyn Episode No OBEpisode recorded.
--- OUTSIDE RECORDS SUMMARY | 2024-06-09 10:51 | XMS_ITS | Encounter Summary ---
Author Organization [employer] Address [address] [place] [address] Care Team Providers Care Senior Mainframe Developer Name Role Phone Name, Gregg DIAMOND Primary Care Provider [phone] Reason for Visit * Reason Comments Med Refill Encounter Details Date Type Department Care Team ([facility] st Contact Info) Description 07/13/2023 Refill [facility] MED[facility] [address] [place] [address] Ban Granados FNP [address] [place] [address] Social History Tobacco Use Types Packs/Day Years [...] t he electric, gas, oil or water [employer] threatened to shut off services in your [...] 3:57 PM EDT Pt came into the [facility] asking for refills on Wegomy meds. She wants Dr. Granados to send the refill in two days to be able to coal picker in pharmacy. 07/13/23 documented in this encounter Plan of Treatment Upcoming Encounters Date Type Department Care Team (Late st Contact Info) Description 07/06/2024 9:00 AM EDT Office Visit [facility] ADULT DENTAL [address] [place] [address] Ayan Calvin, RAMIREZ [address] [place] [address] 07/17/2024 11:30 AM EDT Office Visit [facility] [address] [place] [address] Name, MD Gregg [address] [place] [address] 09/21/2024 8:00 AM EDT Office Visit [facility] ADULT DENTAL [address] [place] [address] Faye Mi documented as of this encounter Visit Diagnoses Not on filedocumented in this encounter Additional Health Concerns Assessment Noted Time PHQ-9 Depression Total Score: 7 03/04/19 23 9:17 AM EST documented as of this encounter Care Teams Senior Mainframe Developer Relationship Specialty Start Date End Date Gregg Gandhi MD [address] [place] [address] PCP - General Family Medicine 04/16/15 [facility] 05/23/24 documented as of this encounter
--- OUTSIDE RECORDS SUMMARY | 2024-06-09 10:51 | XMS_ITS | Encounter Summary ---
Author Organization [employer] [facility] Address [address] [facility] [address] [place] [address] Care Team Providers Care White Metal Caster Name Role Phone Name, Gregg DIAMOND Primary Care Provider [phone] Reason for Visit * Reason Comments Med Refill Encounter Details Date Type Department Care Team ( Contact Info) Description 10/14/2022 Refill [facility] MED[facility]INE [address] [place], [place] [phone] Name, MD Gregg [address] [place] [address] Osteoporosis, unspecified osteoporosis type, unspecified pathological fracture [...] 07/06/2024 9:00 AM EDT Office Visit [facility] ADULT DENTAL [address] [place], [place] [phone] Ayan Calvin, RAMIREZ [address] [place], [place] [phone] 07/17/2024 11:30 AM EDT Office Visit [facility] MEDICINE [address] [place] [address] Name, [place] [address] 09/21/2024 8:00 AM EDT Office Visit [facility] ADULT DENTAL [address] [place] [address] Faye Mi documented as of this encounter Visit Diagnoses Diagnosis Osteoporosis, unspecified osteoporosis type, unspecified pathological fracture presence documented in this encounter Additional Health Concerns Assessment Noted Time PHQ-9 Depression Total Score: 7 03/04/19 23 9:17 AM EST documented as of this encounter Care Teams White Metal Caster Relationship Specialty Start Date End Date Name, [place] [address] PCP - General Family Medicine 04/16/15 [facility] 05/23/24 documented as of this encounter
--- OUTSIDE RECORDS SUMMARY | 2024-06-09 10:51 | XMS_ITS | Encounter Summary ---
Author Organization [facility] Address [address] [facility] [address] [place] [address] Care Team Providers Care Associate Professor Of Pathology Name Role Phone Name, Gregg DIAMOND Primary Care Provider [phone] Encounter Details Date Type Department Care Team (Latest Contact Info) Description 09/27/2018 Abstract [facility] CONVERSIONS Dental, Provider, DDS Social [...] 9:00 AM EDT Office Visit [facility] ADULT DENTAL [address] [place] [address] Ayan Calvin DMD [address] [place] [address] 07/17/2024 11:30 AM EDT Office Visit [facility] MEDICINE [address] [place] [address] Name, MD Gregg [address] [place] [address] 09/21/2024 8:00 AM EDT Office Visit [facility] ADULT DENTAL [address] [place] [address] Faye Mi documented as of this encounter Visit Diagnoses Not on filedocumented in this encounter Care Teams Associate Professor Of Pathology Relationship Specialty Start Date End Date Name, MD Gregg [address] [place] [address] PCP - General Family Medicine 04/16/15 [facility] 05/23/24 documented as of this encounter
--- OUTSIDE RECORDS SUMMARY | 2024-06-09 10:51 | XMS_ITS | Encounter Summary ---
Author Organization [employer] [facility] Address [address] [facility] [address]t [place] [address] Care Team Providers Care Optical Engineering Manager Name Role Phone Name, Gregg DIAMOND Primary Care Provider [phone] Encounter Details Date Type Department Care Team (Latest Contact Info) Description 12/25/2019 Abstract [facility] CONVERSIONS Dental, Provider, DDS Social History [...] Description 07/06/2024 9:00 AM EDT Office Visit [facility] ADULT DENTAL [address] [place] [address] Ayan Calvin DMD [address] [place] [address] 07/17/2024 11:30 AM EDT Office Visit [facility] MEDICINE [address] [place] [address] Name, MD Gregg [address] [place] [address] 09/21/2024 8:00 AM EDT Office Visit [facility] ADULT DENTAL [address] [place] [address] Faye Mi documented as of this encounter Visit Diagnoses Not on filedocumented in this encounter Care Teams Optical Engineering Manager Relationship Specialty Start Date End Date Name, MD Gregg [address] [place] [address] PCP - General Family Medicine 04/16/15 [facility] 05/23/24 documented as of this encounter
--- OUTSIDE RECORDS SUMMARY | 2024-06-09 10:51 | XMS_ITS | Encounter Summary ---
Author Organization [employer] Address [address] [facility] 7t [place] [address] Care Team Providers Care Latex Thread Machine Operator Name Role Phone Name, Gregg DIAMOND Primary Care Provider [phone] Reason for Visit * Reason Comments Med Refill Encounter Details Date Type Department Care Team (Late Contact Info) Description 03/04/2022 Refill [facility] MEDICINE [address] [place] [address] Name, MD Gregg [address] [place] [address] Osteoporosis, unspecified osteoporosis type, unspecified pathological fracture [...] Visit [facility] ADULT DENTAL [address] [place] [address] Ayan Calvin, RAMIREZ [address] [place] [address] 07/17/2024 11:30 AM EDT Office Visit [facility] MEDICINE [address] [place] [address] Name, MD Gregg [address] [place] [address] 09/21/2024 8:00 AM EDT Office Visit [facility] ADULT DENTAL [address] [place] [address] Faye Mi documented as of this encounter Visit Diagnoses Diagnosis Osteoporosis, unspecified osteoporosis type, unspecified pathological fracture presence documented in this encounter Additional Health Concerns Assessment Noted Time PHQ-9 Depression Total Score: 7 03/04/19 23 9:17 AM EST documented as of this encounter Care Teams Latex Thread Machine Operator Relationship Specialty Start Date End Date Name, MD Gregg [address] [place] [address] PCP - General Family Medicine 04/16/15 [facility] 05/23/24 documented as of this encounter
--- OUTSIDE RECORDS SUMMARY | 2024-06-09 10:51 | XMS_ITS | Encounter Summary ---
Author Organization [employer] [facility] Address [address] [facility] [address] [place] [address] Care Team Providers Care Rec Therapist Name Role Phone Name, Gregg DIAMOND Primary Care Provider [phone] Reason for Visit * Reason Comments Med Refill Encounter Details Date Type Department Care Team ( Contact Info) Description 10/06/2022 Refill [facility] MEDICINE [address] [place], [place] [phone] Name, MD Gregg [address] [place] [address] Osteoporosis, unspecified osteoporosis type, unspecified pathological fracture [...] Office Visit [facility] ADULT DENTAL [address] [place], [place] [phone] Ayan Calvin, RAMIREZ [address] [place], [place] [phone] 07/17/2024 11:30 AM EDT Office Visit [facility] MEDICINE [address] [place] [address] Name, [place] [address] 09/21/2024 8:00 AM EDT Office Visit [facility] ADULT DENTAL [address] [place] [address] Faye Mi documented as of this encounter Visit Diagnoses Diagnosis Osteoporosis, unspecified osteoporosis type, unspecified pathological fracture presence documented in this encounter Additional Health Concerns Assessment Noted Time PHQ-9 Depression Total Score: 7 03/04/19 23 9:17 AM EST documented as of this encounter Care Teams Rec Therapist Relationship Specialty Start Date End Date Name, [place] [address] PCP - General Family Medicine 04/16/15 [facility] 05/23/24 documented as of this encounter
== END 2024-06-09 10:54 | disposition home or self-care (01) ==
LOC: HO.HOS 10:23
PROVIDERS: PCP Internal Medicine Geriatric Medicine
DX: M17.0 Bilateral primary osteoarthritis of knee (principal)
CPT/HCPCS: 20610

== ENCOUNTER → 2024-06-09 10:23 | Outpatient (BNVA) | payer OTHER, SELFPAY | PROVIDERS: PCP Internal Medicine Geriatric Medicine | DX: M17.0 Bilateral primary osteoarthritis of knee (principal) | CPT/HCPCS: 20610; J7323 ==

== ENCOUNTER 2024-06-30 07:06 | Day surgery (SDC) | payer OTHER, SELFPAY ==
--- OUTSIDE RECORDS SUMMARY | 2024-06-21 06:38 | XMS_ITS | Continuity of Care Document ---
Author Organization [employer] [facility] [place] - [employer] Address [address] [place] [address] Care Team Providers Care Tire Stripper Name Role Phone HIM CCA OTHER NAME, CUAUHTEMOC Primary Care Provider Assessment Encounter Date Assessment Date Assessment LastModified by Organization Details LastModified Time 06/16/2024 06/16/2024 As noted, we were called to see this patient regarding concerns of right knee pain. Evaluation in the field was performed by my engineer gas pumping station colleague, as noted above, I provided real-time direction and supervision for this visit. The evaluation revealed 63y F with chronic R knee pain, seen two times earlier this month. Provided 15mg ketorolac at last visit 06/07. Pain parallel to that visit. She is working with pain management, ortho, PCP but next visit not for another two weeks. Strongly encouraged to pursue alternative pathways to better prevent pain. Impression: chronic left knee pain Plan: ketorolac 15mg Primary care, consider ongoing care coordiantion Disposition: We discussed the diagnostic uncertainty of home visits and the risk associated with this. In this case, the patient and I felt this to be an acceptable and reasonable amount of risk given the benefit of avoiding an ED visit. We discussed the need to seek care urgently/emerge ntly in the setting of any new or worsening serious symptoms, particularly fevers, chills, falls, worsening pain, weakness, confusion [facility] Not available 06/16/2024 21:04:00 Plan of Treatment Reminders Order Date Submit Date Provider Last Modified By Organization Details Last Modified Time Details Appointments None recorded. Lab None recorded. Referral None recorded. Procedures None recorded. Surgeries None recorded. Imaging None recorded. Medication Orders ketorolac 30 mg/mL injection solution 2024 [id number] [facility], [address] [facility], [place], [place], [phone], 21:05:04 Patient TargetsNo targets recorded. Patient InstructionsNo instructions recorded. Reason for Referral None Reported. Medical Equipment None Reported. Allergies Allergen ID Allergen Name Allergen Category Reaction Reaction Severity Criticality Documentation Date Start Date Code Code System Note Provider Name and Address Organization Details Recorded Time 61582 [facility] medicatio n Not available Not available Not available 05/19/2024 7550 RxNorm Christina Ashford MD [address] [facility],[address], [place], [address] , [facility] 13:03:23 86895 tramadol medicatio n Not available Not available Not available 06/07/2024 24803 RxNorm Not Available [facility] 17:33:16 Medications Name Sig Start Date Stop Date Status Note LastModified by Organization Details LastModified Time medbox status USE DIRECTED active Not Available Not Available No t Available celecoxib 200 mg capsule TAKE 1 CAPSULE BY MOUTH TWICE DAILY active Not Available Not Available No t Available cyclobenzapr ine 10 mg tablet TAKE 1 TABLET BY MOUTH EVERY 8 HOURS active Not Available Not Available No t Available amoxicillin 500 mg capsule TAKE 1 CAPSULE BY MOUTH EVERY 8 HOURS FOR 7 DAYS active Not Available Not Available No t Available hydrocortiso ne 0.5 % topical cream APPLY TOPICALLY TO THE AFFECTED AREA(S) TWICE DAILY active Not Available Not Available Not Available estazolam 2 mg tablet TAKE 1 TABLET BY MOUTH AT BEDTIME WITH 1 MG TABLET active Not Available Not Available No t Available fluticasone 250 mcg-salmeter ol 50 mcg/dose blistr powdr for inhalation INHALE 1 PUFF BY MOUTH TWICE DAILY RINSE MOUTH AFTER USING. active Not Available Not Available No t Available acetaminophe n 325 mg tablet TAKE 2 TABLETS BY MOUTH EVERY 6 HOURS FOR 7 DAYS active Not Available Not Available No t Available estazolam 1 mg tablet TAKE 1 TABLET BY MOUTH AT BEDTIME WITH 2 MG TABLET active Not Available Not Available No t [...] Not Available Not Available No t Available penicillin V potassium 500 mg tablet TAKE 1 TABLET BY MOUTH EVERY 6 HOURS FOR 10 DAYS active Not Available Not Available No t Available metronidazol e 500 mg tablet TAKE 1 TABLET BY MOUTH TWICE DAILY FOR 7 DAYS. AVOID ALCOHOLIC BEVERAGES WHILE TAKING. active Not Available Not Available No t Available phentermine 37.5 mg tablet TAKE 1 TABLET BY MOUTH EVERY MORNING BEFORE BREAKFAST active Not Available Not Available No t Available omeprazole 40 mg capsule,eliana yed release TAKE 1 CAPSULE BY MOUTH EVERY MORNING BEFORE MEALS DO NOT BREAK, CRUSH, DISSOLVE OR CHEW active Not Available Not Available No t Available aspirin 81 mg tablet,delay ed release TAKE 1 TABLET BY MOUTH EVERYDAY AT NOON active Not Available Not Available No t Available acetaminophe n 500 mg tablet TAKE 1 TABLET BY [...] magnesium) tablet TAKE 1 TABLET BY MOUTH EVERYDAY AT NOON WITH FOOD active Not Available Not Available No t Available methocarbamo l 750 mg tablet TAKE 2 TABLETS BY MOUTH FOUR TIMES DAILY NEEDED FOR PAIN active Not Available Not Available No t Available meclizine 25 mg tablet TAKE 1 TABLET BY MOUTH TWICE DAILY NEEDED active Not Available Not Available No t Available venlafaxine 37.5 mg tablet TAKE 1 TABLET BY [...] active Not Available Not Available Not Available lorazepam 1 mg tablet TAKE 1 TABLET BY MOUTH EVERY DAY 30 MINUTES BEFORE PROCEDURE NEEDED FOR ANXIETY active Not Available Not Available Not Available polyethylene glycol 3350 17 gram/dose oral powder TAKE 17 GM MIXED IN 8 OUNCES OF WATER ONCE DAILY active Not Available Not Available No t Available levofloxacin 500 mg tablet TAKE 1 TABLET BY MOUTH EVERY DAY FOR 7 DAYS active Not Available Not Available No t Available ipratropium bromide 42 mcg (0.06 %) nasal spray USE 2 SPRAYS IN EACH NOSTRIL TWICE DAILY NEEDED FOR ALLERGIES OR RHINITIS active Not Available Not Available Not Available celecoxib 100 mg capsule TAKE 1 CAPSULE BY MOUTH TWICE DAILY FOR 2 DAYS active Not Available Not Available No t Available morphine 15 mg immediate release tablet [...] Available Not Available No t Available oxycodone 5 mg tablet TAKE 1 TABLET BY MOUTH EVERY 6 HOURS NEEDED FOR PAIN active Not Available Not Available No t Available chlorhexidin e gluconate 0.12 % mouthwash SWISH 15 ML IN THE MOUTH OR THROAT FOR 30 SECONDS THEN SPIT OUT THREE TIMES DAILY IN THE MORNING, AT NOON, AND AT BEDTIME NEEDED FOR UP TO 5 DAYS active Not [...] Not Available Not Available No t Available Lidocaine Pain Relief 4 % topical patch APPLY 1 PATCH TO AFFECTED AREA(S) EVERY DAY active Not Available Not Available [...] Not Available Not Available No t Available Zepbound 10 mg/0.5 mL subcutaneous pen injector INJECT ONE PEN (=10MG) SUBCUTANEOU SLY ONCE A WEEK DIRECTED active Not Available Not Available No t Available Zepbound 5 mg/0.5 mL subcutaneous pen injector INJECT ONE PEN (=5MG) SUBCUTANEOU SLY ONCE A WEEK DIRECTED active Not Available Not Available No t Available Zepbound 7.5 mg/0.5 mL subcutaneous pen injector INJECT ONE PEN (=7.5MG) SUBCUTANEOU SLY ONCE A WEEK DIRECTED active Not Available Not Available No t Available Vitals Date Recorded Body temperature Oxygen saturation Oxygen saturation in Arterial blood by Pulse oximetry Heart rate Respiratory rate Systolic blood pressure Diastolic blood pressure Provider Name and Address Organization Details Last Updated DateTime 97.8 [degF] 98 % 98 % 90 /min 18 /min 117 mm[Hg] 74 mm[Hg] Not Available [facility] 20:51:25 Social History None recorded. Functional Status None recorded. Mental Status None recorded. Family History Nothing Reported. Medical History No medical history recorded. Gynecological HistoryNo gynecological history recorded. Obstetrics History GPAL:G 0 P 0 0 0 0 Past Encounters Encounter ID Performer Location Encounter Start Date Encounter Closed Date Diagnosis/Indication Diagnosis SNOMED-CT Code Diagnosis ICD10 Code Diagnosis Note [id number] Christina Ashford MD [facility] [address] [place] [phone] 05/19/2024 12:56:41 05/19/2024 14:17:51 Osteoarthritis of multiple joints 698219304 M15.9 advised ice / wrapped in a [...] makes her feel Chronic pain syndrome 37 2640272 G89.4 Explained to patient we cannot offer [...] and pain management and reviewed red flags [id number] Trisha Bello MD [facility] - [facility] [address] [place] [phone] 06/07/2024 18:25:16 06/07/2024 21:15:18 Pain [id number] R52 As noted, we were called to see this patient regarding concerns of acute on chronic back and joint pain. Evaluation in the field was performed by my engineer gas pumping station colleague, as noted above, I provided real-time [...] changes to consciousn ess, chest pain, dyspnea. [id number] Trudy Calderon MD [facility] [address] [place] [phone] 06/16/2024 20:51:22 06/18/2024 23:49:55 Osteoarthritis of left knee joint 2489174311 75457 M17.12 Health Concerns Section Related Observation LastModified by Organization Detai ls LastModified Time None Recorded Concern Status LastModified by Organization Details LastModified Time None Recorded Payers Encounter Date Sequence Insurance Name Policy Number Policy Schrader Covered Member ID Schrader Member ID Guarantor Name 06/16/2024 1 [facility] - DOS ON OR AFTER 2022 - DUAL ELIGIBLE - HALFWAY OPTIONS AND ONE CARE (MEDICARE REPLACEMENT/ADV ANTAGE - HMO) Mag Ayala [id number] Mag Ayala Notes Date Note Type Note Provider Name and Address Organization Details Recorded Time 06/16/2024 text/html [facility] Nurse Triage Notes (Parrish Whaley): Reason For Request: Patient has Leg pain, from cooking an egg, wants checked out. Denies: Leon ? Flash, circumferential leon Leon reported with black tissue to the area Open skin area after a fall with uncontrolled bleeding Abscess/infection with streaking noted, presence of fever or without Chief Complaints: Extremity Pain PMH: Anxiety Disorder, Asthma, Chronic Pain, Depression, Osteoporosis, Hypothyroidism, Gastroesophageal Reflux Disease (GERD), Sleep Apnea, Inflammatory Bowel Disease (Crohn's Disease, Ulcerative Colitis), Cancer PMH Reviewed at 06/16/2024 - : Allergies Reviewed at 06/16/2024 - :12 Comments: Additional PMH: Spinal Stenosis 63 y.o female complains of Extremity Pain Patient calling reporting hx of chronic knee pain. Pt states she was frying an egg and had sudden onset worsening R knee pain. Pt denies any known injury to the area. Pt taking medications as prescribed for pain, also took Tylenol, takes Gabapentin and an anti inflammatory . Pt reports pain is increased with ambulation. Pt reports she is currently icing the area. I provided information on the mobile health provider response time and advised the patient and/or caregiver to monitor reported signs and symptoms. I discussed the warning signs of when to seek emergency care. ...................... ...................... ...................... ...................... ...................... ...................... ......... Grain Elevator Clerk Note From Inez Lazar: Sent to a call for a pt complaining of knee pain. [facility] arrives on scene, pt is alert and oriented, airway is patent. Pt complains of chronic right knee pain. Pt states she has hemarthrosis in right knee and has been getting botox injections in right knee. Pt states last injection was on Wed06/09/24. Pt states a medical student gave injection in different part of knee, which resulted in bruise, increased swelling and pain. Pt states she was standing in kitchen tonight and complains of atraumatic sharp, pulling pain in knee (worse than this past week). Pt states she does not usually have visible bruising on knee, but bruising has remained about the same since injection. Pt is prescribed Gabapentin and Celecoxib for pain. Pt has been using ice, elevating knee, and taking Tylenol as well for pain. Pt requests Toradol injection for pain. Pt states she is supposed to have a nerve block performed by pain management on June 30. Picture of right knee: uploaded to [employer]. BP:117/74, P:90, RR:18, SpO2:98% RA, T:97.8; Head: unremarkable; Lung sounds: clear bilaterally; Abdomen: soft, non-tender, no distention; Back: unremarkable; Extremities: Right knee: swelling, bruise and tenderness noted; Skin: pink, warm, dry; [facility] consulted and orders Ketorolac 15mg IM. Pt is advised risks of Ketorolac, especially with recent injection approx 2 weeks ago, and hx of hemarthrosis. Ketorolac 15mg IM administered without incident. Red flags discussed. Pt has no further questions. [facility] Medication Orders: ketorolac 30 mg/mL injection solution: Administered Comment: 15mg ...................... ...................... ...................... ...................... ...................... ...................... ......... [facility] Consulted: Trudy Calderon ...................... ...................... ...................... ...................... ...................... ...................... ......... Disposition: Fulfilled Trudy Calderon MD [address] [place] [address],[address], [place], [phone], LYLY Rivers BlackArrowSARANYA HEIN 06/16/2024 22:22:40 OBGyn Episode No OBEpisode recorded.
--- OUTSIDE RECORDS SUMMARY | 2024-06-21 06:38 | XMS_ITS | Data Portability ---
Author Organization [employer] [employer] Address [address] [place] [address] Care Team Providers Care Canvas Cutter Hand Name Role Phone HIM CCA OTHER NAME, CUAUHTEMOC Primary Care Provider [phone] Assessment Encounter Date Assessment Date Assessment LastModified [...] Assessment and Plan as documented by the Box Icer. I provided real-time medical direction via phone [...] supportive care and avoidance of constipation/str aining. Box Icer checked COVID flu and strep tests which [...] Assessment and Plan as documented by the Box Icer. We discussed the diagnostic uncertainty of home [...] call 911- she verbalized understanding of instructions [email or web address] Not available 05/19/2024 13:50:42 06/16/2024 06/16/2024 As noted, we were called to see this patient regarding concerns of right knee pain. Evaluation in the field was performed by my water regulator and valve repairer colleague, as noted above, I provided real-time [...] We discussed the need to seek care urgently/emergen tly in the setting of any new or worsening serious symptoms, particularly fevers, chills, falls, worsening pain, weakness, confusion atilhou Not available 06/16/2024 21:04:00 Plan of Treatment Reminders Order Date Submit Date Provider Last Modified By Organization Details Last Modified Time Details Appointments None recorded. Lab rapid SARS CoV 2 Ag, QL IA, respiratory specimen 2024 025 [facility], [address] [place] [address], [id number] 5 20:05:02 rapid flu (A+B) 2024 025 [facility], [address] [place] [address], [id number] 5 20:05:02 rapid strep group A, throat 2024 025 [facility], [address] [place] [address], [id number] 5 20:05:03 Referral None recorded. Procedures None recorded. Surgeries None recorded. Imaging None recorded. Medication Orders ketorolac 30 mg/mL injection solution 2024 [facility], [address] [place] [address], [id number], 21:05:04 ketorolac 30 mg/mL injection solution 2024 025 [facility], [address] [place] [address], [id number], 18:32:46 Celebrex 100 mg capsule 2024 025 [facility], [address] [place] [address], [id number], 13:10:19 Patient TargetsNo targets recorded. Patient InstructionsNo [...] Name and Address Organization Details Recorded Time 68799 [facility] n Not available Not available Not available 05/19/2024 7550 [facility] Christina Ashford MD [address] [place] [address],[address], [place], [phone] , [facility] [employer] [facility] 13:03:23 71480 tramadol medicatio n Not available Not available Not available 06/07/2024 95124 Rx[facility] Not Available [facility] - production 5 17:33:16 Medications Name Sig Start Date Stop [...] Available No t Available Vitals Date Recorded Oxygen saturation Oxygen saturation in Arterial blood by Pulse oximetry Heart rate Body temperature Respiratory rate Body height Body weight Systolic blood pressure Diastolic blood pressure Provider Name and Address Organization Details Last Updated DateTime 5 100 % 100 % 91 /min 98.6 [degF] 19 /min 160.02 cm 21598.0 08 g 110 mm[Hg] 71 mm[Hg] Not Available [employer] 5 21:41:12 Date Recorded Respiratory rate Body temperature Oxygen saturation Oxygen saturation in Arterial blood by Pulse oximetry Heart rate Systolic blood pressure Diastolic blood pressure Provider Name and Address Organization Details Last Updated DateTime 5 20 /min 97.9 [degF] 97 % 97 % 100 /min 138 mm[Hg] 76 mm[Hg] Not Available [employer] 5 15:18:17 Date Recorded Body temperature Heart rate Body weight Body height Oxygen saturation Oxygen saturation in Arterial blood by Pulse oximetry Respiratory rate Systolic blood pressure Diastolic blood pressure Provider Name and Address Organization Details Last Updated DateTime 5 97.6 [degF] 96 /min 77946.1 92 g 160.02 cm 97 % 97 % 19 /min 106 mm[Hg] 72 mm[Hg] Not Available [employer] 5 12:56:43 Date Recorded Body weight Oxygen saturation Oxygen saturation in Arterial blood by Pulse oximetry Body temperature Respiratory rate Heart rate Body height Systolic blood pressure Diastolic blood pressure Provider Name and Address Organization Details Last Updated DateTime 5 65624.8 g 98 % 98 % 98 [degF] 14 /min 80 /min 157.48 cm 110 mm[Hg] 78 mm[Hg] Not Available [employer] 5 18:25:18 Date Recorded Body temperature Oxygen saturation Oxygen saturation in Arterial blood by Pulse oximetry Heart rate Respiratory rate Systolic blood pressure Diastolic blood pressure Provider Name and Address Organization Details Last Updated DateTime 5 97.8 [degF] 98 % 98 % 90 /min 18 /min 117 mm[Hg] 74 mm[Hg] Not Available [employer] 5 20:51:25 Social History None recorded. Functional Status None recorded. Mental Status None recorded. Family History Nothing Reported. Medical History No medical history recorded. Gynecological HistoryNo gynecological history recorded. Obstetrics History GPAL:G 0 P 0 0 0 0 Past Encounters Encounter ID Performer Location Encounter Start Date Encounter Closed Date Diagnosis/Indication Diagnosis SNOMED-CT Code Diagnosis ICD10 Code Diagnosis Note [id number] Abran Hayward MD [facility] [address] [place] [id number] 01/31/2024 14:50:58 01/31/2024 16:04:33 [id number] Jameel Haddad MD [facility] [address] [place] [id number] 02/03/2024 19:16:36 02/03/2024 22:59:01 Viral upper respiratory tract infection 052558082 J06.9 S/p treatment for bronchitis with Azithromyc in. Negative COVID/flu test. Able to maintain PO hydration. Discussed red flag signs for which to seek higher level of care. [id number] Rick Hartmann MD [facility] [address] [place] [phone] 02/24/2024 19:36:29 02/24/2024 20:10:20 Diarrhea 18633175 R19.7 As noted, we were called to see this patient regarding concerns of gastroente ritis symptoms. Evaluation in the field was performed by my water regulator and valve repairer colleague, as noted above, I provided real-time [...] significan t hematochez ia, non-resolv ing diarrhea. [id number] Loki Barajas MD [facility] [address] [place] [id number] 03/30/2024 21:41:10 03/31/2024 15:17:43 Localized eruption of skin 585093766 R21 [id number] Cody Spicer MD [facility] [address] [place] [phone] 05/04/2024 15:18:09 05/04/2024 20:57:19 Abdominal pain 27807808 R10.9 [id number] Christina Ashford MD [facility] [address] [place] [id number] 05/19/2024 12:56:41 05/19/2024 14:17:51 Osteoarthritis of multiple joints 789306919 M15.9 advised ice / wrapped in a [...] makes her feel Chronic pain syndrome 37 6715276 G89.4 Explained to patient we cannot offer [...] and pain management and reviewed red flags [id number] Trisha Bello MD [facility] [address] [place] [phone] 06/07/2024 18:25:16 06/07/2024 21:15:18 Pain 51908649 R52 As noted, we were called to see this patient regarding concerns of acute on chronic back and joint pain. Evaluation in the field was performed by my water regulator and valve repairer colleague, as noted above, I provided real-time [...] changes to consciousn ess, chest pain, dyspnea. [id number] Trudy Calderon MD [facility] [address] [place] [phone] 06/16/2024 20:51:22 06/18/2024 23:49:55 Osteoarthritis of left knee joint 9138890800 67685 M17.12 Health Concerns Section Related Observation LastModified by Organization Detai ls LastModified Time None Recorded Concern Status LastModified by Organization Details LastModified Time None Recorded Advance Directives Directive None Recorded Payers Insurance Date Sequence Insurance Name Policy Number Policy Schrader Covered Member ID Schrader Member ID Guarantor Name 06/19/2024 1 [facility] - DOS ON OR AFTER 2022 - DUAL ELIGIBLE - ASSISTED OPTIONS AND ONE CARE (MEDICARE REPLACEMENT/ADV ANTAGE - HMO) Mag Ayala [id number] Mag Ayala Notes Date Note Type Note Provider Name and Address Organization Details Recorded Time 03/30/2024 text/html CRC Nurse Triage Notes (Farrah Richards - RN): Reason For Request: Common cold symptoms, cough, sore throat, runny nose, headaches Chief Complaints: Cough, Common cold symptoms, Weakness PMH: Anxiety Disorder, Asthma, Chronic Pain, Depression, Osteoporosis, Hypothyroidism, Gastroesophageal Reflux Disease (GERD), Sleep Apnea PMH Reviewed at 03/30/2024 - :36 Allergies Reviewed at 03/30/2024 - 17:36 Comments: URI/common cold symptoms, coughing. Drinking lots of fluid but not feeling well, Will place referral for workup Oracio TORRES Box Icer Organization Information for Devaughn Kody GRIFFITH Azingo Legal Name: [employer]? Address: [address] [place] [id number], Remotely Piloted Vehicle Controller: Rich Pillai MD CLIA No.: [id number] Box Icer POC Test Results from Kody Cantor - ALS Rapid influenza antigen (21:36:11) Flu: - Rapid COVID antigen (21:36:12) COVID: - ...................... ...................... ...................... ...................... ...................... ...................... ......... Box Icer Note From Kody Cantor: Dispatched to above [...] Covid/influenza. No edema in the lower extremity [facility] contacted. [facility] ordered the pt to monitor her temp/cough/flu like symptoms, and if symptoms get worse then to either call back/call pcp/call 911. [facility] added to keep taking Tylenol as needed. Pt stated that she understood and stated that she was feeling a little better after taking Tylenol. Crew cleared from call. All times approximate. ...................... ...................... ...................... ...................... ...................... ...................... ......... [facility] Consulted: Loki Barajas ...................... ...................... ...................... ...................... ...................... ...................... ......... Disposition: Fulfilled Loki Barajas MD [address] [place] [address],[address], [place], [phone] 03/31/2024 00:03:57 05/04/2024 text/html CRC Nurse Triage Notes (Yudelka Cintron): Reason For Request: Pt states she has pain in her groin, feels burning sensation. Took picture and sees possible hemorrhoids Chief Complaints: Wound Care PMH: Anxiety Disorder, Asthma, Chronic Pain, Depression, Osteoporosis, Hypothyroidism, Gastroesophageal Reflux Disease (GERD), Sleep Apnea, Inflammatory Bowel Disease (Crohn's Disease, Ulcerative Colitis) PMH Reviewed at 05/04/2024 - 13:19 Allergies Reviewed at 05/04/2024 - 13:19 Comments: PMH- diverticulosis Patient calling in to place a referral, identified via name and . Patient aware we cannot perform vaginal/rectal exams, and she does not want an exam. She reached out to one her specialist which recommended she reach out to her PCP to get an urgent appt with a medical grade shoemaker. Patient was in the bath last night, [...] get support and advice from medic and [facility]. Box Icer Organization Information for Beto Nowak Legal Name: [employer].? Address: [address] [place] [address], Remotely Piloted Vehicle Controller: Rich Pillai MD [facility] No.: [id number] Box Icer POC Test Results from Beto Nowak - GLADIS Rapid COVID antigen (15:10:46) COVID: - Attachments [...] ...................... ...................... ...................... ...................... ...................... ...................... ......... Box Icer Note From Beto Nowak: Dispatched to above [...] spoke with her PCP who recommended seeing truckload checker prior to using preparation H, also reporting [...] strep test checked, all negative, results uploaded. [facility] contacted, spoke with Dr. Spicer, advised of patient complaints, exam findings and test results. [facility] SC8 and patient had a lengthy discussion, patient states she would feel uncomfortable staying at home, requested and ambulance to the ER for further evaluation. 911 contacted, [facility] responded, verbal report given to [facility] EMT, took over patient care, will transport to [facility]. SC8 clear. EOR. ...................... ...................... ...................... ...................... ...................... ...................... ......... [facility] Consulted: Cody Spicer ...................... ...................... ...................... ...................... ...................... ...................... ......... Disposition: Fulfilled Cody Spicer MD [address] [place] [address],[address], [place], [phone], [facility] 05/04/2024 17:00:46 05/19/2024 text/html CRC Nurse Triage [...] PMH Reviewed at 05/19/2024 Allergies Reviewed at 05/19/2024 Comments: Patient was in the hospital last [...] ...................... ...................... ...................... ...................... ...................... ...................... ......... Box Icer Note From Jose Small: Pt chief complaint [...] and will not use her prescribed oxycodone. [facility] Christina Ashford consulted. [...] ...................... ...................... ...................... ...................... ...................... ...................... ......... [facility] Consulted: Christina Ashford ...................... ...................... ...................... ...................... ...................... ...................... ......... Disposition: Fulfilled Christina Ashford MD [address] [place] [address],[address], [place], [address], [facility] 05/19/2024 13:51:23 06/07/2024 text/html HPI: Rn calling [...] (Crohn's Disease, Ulcerative Colitis), CancerPMH Reviewed at 06/07/2024:33Allergies Reviewed at 06/07/2024:33 ...................... ...................... ...................... ...................... ...................... ...................... ......... Box Icer Note From Dionicio Hawkins: Patient alert and [...] steady, even GAIT to open the door. [facility] advises 15 mg Toradol now will call in two days of medication and to follow up with PCP. Medication administered as ordered without complication using five rights. Red flags, patient education discussed. [facility] Medication Orders: ketorolac 30 mg/mL injection solution: Administered Comment: 15mg IM, oral order administered ...................... ...................... ...................... ...................... ...................... ...................... ......... [facility] Consulted: Trisha Bello ...................... ...................... ...................... ...................... ...................... ...................... ......... Disposition: Fulfilled Trisha Bello MD [address] [place] [address],[address], [place], [address], [facility] 06/07/2024 20:07:41 06/16/2024 text/html CRC Nurse Triage Notes (Parrish [...] ...................... ...................... ...................... ...................... ...................... ...................... ......... Box Icer Note From Inez Lazar: Sent to a [...] 30. Picture of right knee: uploaded to [employer]. BP:117/74, P:90, RR:18, SpO2:98% RA, T:97.8; Head: unremarkable; Lung sounds: clear bilaterally; Abdomen: soft, non-tender, no distention; Back: unremarkable; Extremities: Right knee: swelling, bruise and tenderness noted; Skin: pink, warm, dry; [facility] consulted and orders Ketorolac 15mg IM. Pt is advised risks of Ketorolac, especially with recent injection approx 2 weeks ago, and hx of hemarthrosis. Ketorolac 15mg IM administered without incident. Red flags discussed. Pt has no further questions. [facility] Medication Orders: ketorolac 30 mg/mL injection solution: Administered Comment: 15mg ...................... ...................... ...................... ...................... ...................... ...................... ......... [facility] Consulted: Trudy Calderon ...................... ...................... ...................... ...................... ...................... ...................... ......... Disposition: Fulfilled Trudy Calderon MD [address] [facility],[address], [place], [address], [facility] - SARANYA PEMBERTON 06/16/2024 22:22:40 OBGyn Episode No OBEpisode recorded.
--- OUTSIDE RECORDS SUMMARY | 2024-06-21 06:38 | XMS_ITS | Data Portability ---
Author Organization [place] - [facility], Allergy Address [address] [place] [phone] Assessment No assessment recorded. Plan of Treatment [...] Details Recorded Time Otorrhea of right ear [id number] Active 2020 Otorrhea, right ear; Note: Date Diagnosed : 04/15/2020 9:41 AM (H92.11) Not Available [facility] 4 02:41:49 Sensorine ural hearing loss 04078954 Active 2014 Sensorine ural hearing loss, unilatera l, right ear, with unrestric peggy hearing on the contralat eral side; Note: Date Diagnosed : 5 1:13 PM (H90.41) Not Available [facility] 4 02:41:50 Impacted cerumen of bilateral ears [id number] 87978 Active 2015 Impacted cerumen, bilateral ; Note: Date Diagnosed : 08/12/2015 12:36 PM (H61.23) Not Available [facility] 4 02:41:46 Impacted cerumen 81676226 Active 2014 Disorders of external ear: Impacted cerumen; Note: Date Diagnosed : 11/12/2014 9:15 PM (380.4) Not Available [facility] 4 02:41:52 Infective otitis externa of left ear [id number] 95557 Active 2014 Other infective otitis externa, left ear; Note: Date Diagnosed : 11/15/2014 4:59 PM (H60.392) Not Available [facility] 4 02:41:47 Impacted cerumen in left ear 98485496004 90779 Active 2014 Impacted cerumen, left ear; Note: Date Diagnosed : 11/15/2014 4:59 PM (H61.22) Not Available [facility] 4 02:41:51 Mixed conductiv e and sensorine ural hearing loss of left ear 22071453308 107 Active 2014 Mixed conductiv e and sensorine ural hearing loss, unilatera l, left ear, with unrestric peggy hearing on the contralat eral side; Note: Date Diagnosed : 11/15/2014 5:00 PM (H90.72) Not Available [facility] 4 02:41:46 Dysphonia 12134773 Active 2016 Dysphonia ; Note: Date Diagnosed : 05/13/2016 10:26 AM (R49.0) Not Available [facility] 4 02:41:43 Sensorine ural hearing loss of bilateral ears 521150258 Active 2016 Sensorine ural hearing loss, bilateral ; Note: Date Diagnosed : 7 4:52 PM (H90.3) Sensori neural hearing loss, bilateral ; Note: Date Diagnosed : 08/12/2015 11:37 AM (H90.3) ; Start Date : 6 Not Available [facility] 4 02:41:48 Dizziness and giddiness 820331848 Active 2016 Dizziness and giddiness ; Note: Date Diagnosed : 08/17/2016 1:43 PM (R42) Not Available [facility] 4 02:41:51 Chronic pharyngit is 402899 Active 2016 Chronic sore throat; Note: Date Diagnosed : 05/13/2016 10:24 AM (J31.2) Not Available [facility] 4 02:41:44 Unilatera l sensorine ural hearing loss with unrestric peggy hearing on the contralat eral side Active 2014 Sensorine ural HL, unilatera l; Note: Date Diagnosed : 11/12/2014 9:56 PM (389.15) Not Available [facility] 4 02:41:44 Benign paroxysma l positiona l vertigo 058843859 Active 2020 Benign paroxysma l vertigo, left ear; Note: Date Diagnosed : 1 9:47 AM (H81.12) Not Available [facility] 4 02:41:53 Itching of skin 775055886 Active 2016 Other pruritus; Note: Date Diagnosed : 04/10/2016 11:46 AM (L29.8) Not Available [facility] 4 02:41:47 Infective otitis externa 07589107 Active 2014 Acute otitis externa; Note: Date Diagnosed : 11/12/2014 9:55 PM (380.10) Not Available [facility] 4 02:41:48 Mixed conductiv e and sensorine ural hearing loss of right ear 67031341077 105 Active 2014 Mixed conductiv e and sensorine ural hearing loss, unilatera l, right ear, with unrestric peggy hearing on the contralat eral side; Note: Date Diagnosed : 11/15/2014 5:00 PM (H90.71) Not Available [facility] 4 02:41:49 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 hearing on the contralat eral side Active 2014 Mixed hearing loss, unilatera l; Note: Date Diagnosed : 11/12/2014 9:56 PM (389.21) Not Available [facility] 4 02:41:46 Problem Notes None recorded. Medical Equipment None Reported. Medications Name Sig Start Date Stop Date Status Note LastModified by Organization Details LastModified Time medbox status USE DIRECTED active Not Available Not Available No t Available cyclobenz aprine 10 mg tablet 2018 active Medicati on ID: [id number] D uration Value: 10 Brand Name: cycloben [...] by mouth 03/20 completed Medicati on ID: [id number] Du ration Value: 7 Brand Name: Augmenti n Send Method: E-Prescr ibed Sub s Allowed: subs OK Medic ationGen ericName : Augmenti n Not Available Not Available Not Available Qvar 80 mcg/actua tion Metered Aerosol oral inhaler 03/20 completed Medicati on ID: [id number] D uration Value: 30 Brand Name: Qvar [...] mg tablet 03/21 completed Medicati on ID: [id number] D uration Value: 30 Reason: () Brand Name: dorene rubio Method: E-Prescr ibed Sub s Allowed: subs OK Medic ationGen ericName : perphena nikhil Not Available Not Available Not Available ipratropi um 0.5 mg-albute rol 3 mg (2.5 mg base)/3 mL nebulizat ion soln 03/20 completed Medicati on ID: [id number] D uration Value: 7 Brand Name: ipratrop [...] 2 drop 03/20 completed Medicati on ID: [id number] Du ration Value: 7 Prescri bed By [...] ear drops 03/20 completed Medicati on ID: [id number] Br and Name: Debrox S end Method: [...] 3 drop 03/20 completed Medicati on ID: [id number] D uration Value: 10 Brand Name: Pred [...] mg tablet 03/21 completed Medicati on ID: [id number] D uration Value: 28 Reason: () Brand Name: oxycodon e-acetam inophen Send Method: E-Prescr ibed Sub s Allowed: subs OK Medic ationGen ericName : oxycodon e-acetam inophen Not Available Not Available Not Available ofloxacin 0.3 % ear drops Apply 5 drop into both ears twice a day 03/20 completed Medicati on ID: [id number] D uration Value: 7 Brand Name: ofloxaci [...] mg tablet 12/22 completed Medicati on ID: [id number] Re ason: () Brand Name: Klonopin Send Method: E-Prescr ibed Sub s Allowed: subs OK Medic ationGen ericName : Klonopin Not Available Not Available Not Available meclizine 25 mg tablet TAKE 1 TABLET BY MOUTH TWICE DAILY NEEDED active Not Available Not Available No t Available baclofen 10 mg tablet 2018 active Medicati on ID: [id number] D uration Value: 30 Brand Name: baclofen Send Method: E-Prescr ibed Sub s Allowed: subs OK Speci al Instruct ion: TAKE 1 TABLET TWICE DAILY Me dication GenericN galindo: baclofen Not Available Not Available Not Available doxepin 100 mg capsule 09/30 completed Medicati on ID: [id number] Re ason: () Brand Name: doxepin Send Method: E-Prescr ibed Sub s Allowed: subs OK Medic ationGen ericName : doxepin Not Available Not Available Not Available oseltamiv ir 75 mg capsule TAKE 1 CAPSULE BY MOUTH TWICE DAILY FOR 5 DAYS 03/20 completed Not Available Not Available Not Available levothyro xine 125 mcg tablet 03/21 completed Medicati on ID: [id number] D uration Value: 30 Reason: () Brand [...] for pain 03/21 completed Medicati on ID: [id number] Re ason: () Brand Name: oxycodon e Send Method: E-Prescr ibed Sub s Allowed: subs OK Medic ationGen ericName : oxycodon e Not Available Not Available Not Available clotrimaz ole 1 % topical solution 03/20 completed Medicati on ID: [id number] P rescribe d By Name: Josue johnson [...] elayed release 03/20 completed Medicati on ID: [id number] D uration Value: 30 Brand Name: omeprazo le Send Method: E-Prescr ibed Sub s Allowed: subs OK Speci al Instruct ion: TAKE 1 CAPSULE BY MOUTH EVERY DAY 30 MINUTES TO 1 HOUR BEFORE MEALS Me dication GenericN galindo: omeprazo le Not Available Not Available Not Available Cortispor in 3.5 mg/g-10,0 00 unit/g-0. 5 % topical cream 12/22 completed Medicati on ID: [id number] Re ason: () Brand Name: Cortispo rin Send Method: E-Prescr ibed Sub s Allowed: subs OK Medic ationGen ericName : Cortispo rin Not Available Not Available Not Available topiramat e 200 mg tablet 03/20 completed Medicati on ID: [id number] D uration Value: 30 Brand Name: topirama [...] mg tablet 03/20 completed Medicati on ID: [id number] D uration Value: 20 Brand Name: ibuprofe [...] left ear 03/20 completed Medicati on ID: [id number] D uration Value: 7 Brand Name: Cortispo [...] drops,rigo pension 03/20 completed Medicati on ID: [id number] D uration Value: 14 Brand Name: TobraDex Send Method: E-Prescr ibed Sub s Allowed: subs OK Speci al Instruct ion: Instill 3 drops in the affect ear BID for 10 days Med icationG enericNa me: TobraDex Not Available Not Available Not Available Flovent HFA 220 mcg/actua tion aerosol inhaler 03/20 completed Medicati on ID: [id number] D uration Value: 60 Brand Name: Flovent [...] as directed 03/20 completed Medicati on ID: [id number] D uration Value: 7 Brand Name: DermOtic [...] mcg capsule 11/12 completed Medicati on ID: [id number] Re ason: () Brand Name: Tirosint Send [...] Updated DateTime 03/20/2024 160.02 cm 30.8 kg/m2 94261.07 g Natacha Childs MA - [facility] 03/20/2024 13:01:51 Social History None recorded. Functional Status None recorded. Mental Status None recorded. Family History Nothing Reported. Medical History No medical history recorded. Gynecological HistoryNo gynecological history recorded. Obstetrics History GPAL:G 0 P 0 0 0 0 Past Encounters Encounter ID Performer Location Encounter Start Date Encounter Closed Date Diagnosis/Indication Diagnosis SNOMED-CT Code Diagnosis ICD10 Code Diagnosis Note [id number] JOSUE SHEPHERD MD [facility] [address] [phone] 03/20/2024 12:52:27 03/20/2024 13:16:19 Impacted cerumen of bilateral ears [id number] H61.23 She has very narrow canals and [...] Schrader Member ID Guarantor Name 03/20/2024 1 [facility] - DOS ON OR AFTER 2022 - HALFWAY OPTIONS AND ONE CARE (MEDICARE REPLACEMENT/AD VANTAGE - PPO) Mag Ayala [id number] Mag Ayala 02/22/2024 1 [place]ICA[place]: [facility] Mag Ayala [id number] Mag Ayala Notes Date Note Type Note Provider Name and Address Organization Details Recorded Time 03/20/2024 text/html Dizziness now and then, having some ear itching. JOSUE SHEPHERD MD [address] [place] [address], [phone], [facility] - [facility] 03/20/2024 17:18:34 OBGyn Episode No OBEpisode recorded.
[2024-06-28 08:30] VITALS: BMI 30.4
[2024-06-30] VITALS (7 sets, daily range): BP systolic 97–134; BP diastolic 56–79; PULSE 63–87; RESP 10–18; TEMP 36.2–37; O2SAT 95–100; BMI 32.8
--- NOTE | 2024-06-30 07:19 | MHC.SHP ---
Pre-Procedural Eval Section A - 24 Hr Update-Section A only Date of Service: 06/30/24 The patient is an INPATIENT: No Changes since office visit: Yes Patient answered all questions The patient has been examined within 24 hours of the surgical procedure. The History & Physical has been completed within 30 days and I have reviewed it.: Yes Section B - Complete if H&P > 30 days Chief Complaint: Left and Right knee pain,Unilateral primary osteoa Details of Present Illness: as above Relevant Family History (Specify if Yes): No Relevant Social History: None Present Medications: see Short Stay Collaborative assessment Medical History: Significant History (OA) History of Previous Operations: No relevant previous surgery Allergies: Allergies Allergy/AdvReac Type Severity Reaction Status Date / Time nalbuphine [From Nubain] Allergy Severe Anaphylaxis Verified 06/09/24 10:44 oxycodone AdvReac itchy Verified 06/09/24 10:44 tramadol AdvReac itchy Verified 06/09/24 10:44 Review of Systems Sugical H&P ROS: Negative: Cardiovascular, Respiratory, Neurological, Psychiatric, Hem-Onc, Allergic/Immunologic, Gastrointestinal, Genitourinary, Integumentary, Endocrine and Eyes/Ears/Nose/Throat and Yes, Specify: Constitution (obesity) and Musculoskeletal (OA) Exam Surgical H&P Exam: Normal: HEENT, Normal: Heart, Normal: Lungs, Normal: Extremities, Normal: Skin and Normal: Neurological and Significant Findings: Abdomen (enlarged 2 to i/a & s.q fat) Plan Diagnosis/Plan: Unchanged I have reviewed the history and physical and performed a pertinent physical examination on my patient. No changes have occurred unless specified. Time Spent With Patient Time: Total time managing care of this patient today ____ minutes.
[2024-06-30] MEDS: Lactated Ringers 1,000 ML 100 ML IVCONT (07:58)
--- NOTE | 2024-06-30 08:34 | P.CONAN_ITS ---
Documented by User: Farrah Vela NP 06/29/24 09:55 HPI - Anesthesia Eval Consult details Narrative: 63yo F for Bilateral Diagnostic Femoral Nerve Block PMFSH Active Problems Active Problems: All Active Problems Urinary incontinence (Acute) Urinary retention (Acute) Painful urination (Acute) Bilateral hip pain (Acute) Osteoarthritis of hips, bilateral (Acute) Osteoarthritis of knees, bilateral (Acute) Sacroiliitis (Acute) Disc degeneration, lumbar (Acute) Radiculopathy, lumbar region (Acute) Osteoarthritis of left knee (Acute) Sciatica, left side (Acute) Osteoarthritis of right knee (Acute) Postop check (Acute) Constipation by outlet dysfunction (Acute) Lipoma of abdominal wall (Acute) Lipoma of back (Acute) Clostridium difficile infection (Acute) Dizziness (Acute) Vertigo (Acute) Hoarseness (Acute) Easy bruising (Acute) Status post gastric bypass for obesity (Acute) Strain of tendon of medial thigh muscle (Acute) Close exposure to 2019-nCoV (Acute) Hyperplastic colon polyp (Acute) Rectal bleeding (Acute) Early satiety (Acute) Bronchitis (Acute) Somnolence, daytime (Acute) Obesity (BMI 30-39.9) (Acute) Hx of gastric bypass (Acute 03/12/15) Nausea & vomiting (Acute) Pseudotumor cerebri (Acute) Kidney calculi (Acute) Crystal arthropathy (Acute) Right shoulder injury (Acute) Diverticulosis of colon (Acute) Bronchial asthma (Acute) Acid reflux (Acute) Past Medical History Medical History (Updated 06/28/24 @ 08:25 by Alejandra Tamez RN) Sleep apnea Bronchitis Somnolence, daytime Obesity (BMI 30-39.9) Nausea & vomiting Migraine Syncope Pseudotumor cerebri Kidney calculi Crystal arthropathy Right shoulder injury Kidney tumor COVID-19 vaccine administered Thyroid disease Colon polyp Diverticulosis of colon Bronchial asthma Acid reflux Family History Family History Father Heart disease History of open heart surgery Mother Heart disease Family history of problems with anesthesia: No Surgical History Surgical History Status post excision of lipoma (09/10/23) History of esophagogastroduodenoscopy (EGD) History of surgery on wrist History of hysterectomy Previous section Hx laparoscopic cholecystectomy Hx of gastric bypass (03/12/15) Hx of colonoscopy History of Problems with Anesthesia: No Social History Social History Household Members: None Household Members Other:: alone Are you a primary director of home care hospice to a significant other at home: No Do you presently have visiting nurse or other home services: No Alcohol intake: never Patient Tobacco Use Status: Former Tobacco user Tobacco use type: Cigarette Have you been hit, kicked, punched, or otherwise hurt by someone within the past year? If so, by whom?: No Are you DNR?: No Advance Directives: No Advance Directives Information Provided: Yes service: No Current occupational status: disabled Meds Allergies Allergy/AdvReac Type Severity Reaction Status Date / Time nalbuphine [From Nubain] Allergy Severe Anaphylaxis Verified 06/09/24 10:44 oxycodone AdvReac itchy Verified 06/09/24 10:44 tramadol AdvReac itchy Verified 06/09/24 10:44 Home Medications ?Medication ?Instructions ?Recorded ?Confirmed ?Last Taken ?Type doxepin 75 mg capsule 75 mg PO BEDTIME 11/22/19 06/07/24 Unknown History estazolam 1 mg tablet 3 mg PO BEDTIME 06/06/20 06/07/24 Unknown History alendronate 70 mg tablet 70 mg PO TU 06/03/22 06/07/24 2 Weeks Ago History ~11/13/22 cholecalciferol (vitamin D3) 25 25 mcg PO DAILY 06/03/22 06/07/24 Unknown History mcg (1,000 unit) tablet perphenazine 4 mg tablet 4 mg PO BID@1200,2100 06/04/22 06/07/24 Unknown History levothyroxine 100 mcg tablet 100 mcg PO DAILY@0600 10/01/22 06/07/24 11/27/22 History lidocaine 5 % topical patch 1 patch topical DAILY 10/01/22 06/07/24 Unknown History magnesium oxide 400 mg (241.3 mg 400 mg PO DAILY@1200 10/01/22 06/07/24 Unknown History magnesium) tablet omeprazole 40 mg capsule,delayed 40 mg PO DAILY@0630 10/01/22 06/07/24 Unknown History release pyridoxine (vitamin B6) 100 mg 200 mg PO DAILY@1200 11/27/22 06/07/24 Unknown History tablet semaglutide (weight loss) 1 mg/0.5 1 mg subcut DAILY 08/11/23 06/07/24 Unknown History mL subcutaneous pen injector (Wegovy) venlafaxine 37.5 mg tablet mg PO 05/10/24 06/07/24 Unknown History Exam Height,Weight and Vital Signs: Height 5 ft 4 in Weight 80.286 kg Pertinent Lab Results Pertinent Lab Results: Laboratory Tests 05/04/24 17:24 WBC 7.2 Hgb 12.8 Hct 41.0 Plt Count 323 Sodium 139 Potassium 4.5 Chloride 106 Carbon Dioxide 26 BUN 16 Creatinine 0.72 Narrative Narrative: EKG 01/2024 Vent. Rate : 073 BPM Atrial Rate : 073 BPM P-R Int : 160 ms QRS Dur : 070 ms QT Int : 376 ms P-R-T Axes : 037 058 050 degrees QTc Int : 414 ms Normal sinus rhythm Nonspecific T wave abnormality Abnormal ECG When compared with ECG of 17-JUN-2023 14:31, Questionable change in QRS axis Nonspecific T wave abnormality no longer evident in Inferior leads Assessment and Plan Assessment Anesthesia Assessment: Chart Reviewed Final Anesthetic Review Family History of Problems with Anesthesia: No History of Problems with Anesthesia: No Documented by User: Olman Bergman MD 06/30/24 08:36 [facility] Past Medical History Medical History (Updated 06/28/24 @ 08:25 by Alejandra Tamez RN) Sleep apnea Bronchitis Somnolence, daytime Obesity (BMI 30-39.9) Nausea & vomiting Migraine Syncope Pseudotumor cerebri Kidney calculi Crystal arthropathy Right shoulder injury Kidney tumor COVID-19 vaccine administered Thyroid disease Colon polyp Diverticulosis of colon Bronchial asthma Acid reflux Family History Family History Father Heart disease History of open heart surgery Mother Heart disease Surgical History Surgical History Status post excision of lipoma (09/10/23) History of esophagogastroduodenoscopy (EGD) History of surgery on wrist History of hysterectomy Previous section Hx laparoscopic cholecystectomy Hx of gastric bypass (03/12/15) Hx of colonoscopy Social History Social History Household Members: None Household Members Other:: alone Are you a primary director of home care hospice to a significant other at home: No Do you presently have visiting nurse or other home services: No Alcohol intake: never Patient Tobacco Use Status: Former Tobacco user Tobacco use type: Cigarette Have you been hit, kicked, punched, or otherwise hurt by someone within the past year? If so, by whom?: No Are you DNR?: No Advance Directives: No Advance Directives Information Provided: Yes service: No Current occupational status: disabled Meds Allergies Allergy/AdvReac Type Severity Reaction Status Date / Time nalbuphine [From Nubain] Allergy Severe Anaphylaxis Verified 06/09/24 10:44 oxycodone AdvReac itchy Verified 06/09/24 10:44 tramadol AdvReac itchy Verified 06/09/24 10:44 Home Medications ?Medication ?Instructions ?Recorded ?Confirmed ?Last Taken ?Type doxepin 75 mg capsule 75 mg PO BEDTIME 11/22/19 06/07/24 Unknown History estazolam 1 mg tablet 3 mg PO BEDTIME 06/06/20 06/07/24 Unknown History alendronate 70 mg tablet 70 mg PO TU 06/03/22 06/07/24 2 Weeks Ago History ~11/13/22 cholecalciferol (vitamin D3) 25 25 mcg PO DAILY 06/03/22 06/07/24 Unknown History mcg (1,000 unit) tablet perphenazine 4 mg tablet 4 mg PO BID@1200,2100 06/04/22 06/07/24 Unknown History levothyroxine 100 mcg tablet 100 mcg PO DAILY@0600 10/01/22 06/07/24 11/27/22 History lidocaine 5 % topical patch 1 patch topical DAILY 10/01/22 06/07/24 Unknown History magnesium oxide 400 mg (241.3 mg 400 mg PO DAILY@1200 10/01/22 06/07/24 Unknown History magnesium) tablet omeprazole 40 mg capsule,delayed 40 mg PO DAILY@0630 10/01/22 06/07/24 Unknown History release pyridoxine (vitamin B6) 100 mg 200 mg PO DAILY@1200 11/27/22 06/07/24 Unknown History tablet semaglutide (weight loss) 1 mg/0.5 1 mg subcut DAILY 08/11/23 06/07/24 Unknown History mL subcutaneous pen injector (Wegovy) venlafaxine 37.5 mg tablet mg PO 05/10/24 06/07/24 Unknown History Exam Airway Mallampati Class: II TM Dist: >3cm Neck ROM: Full Heart: rrr Lungs: cta Assessment and Plan Final Anesthetic Review NPO: Yes ASA Class: III Final Preanesthetic Review: No Changes in Pt Med Stat, Meds/Allgs Chart Reviewed, Consent Obtained/Reviewed and Anes Risks/Benef Reviewed Patient Risk: Low Procedure Risk: Low Anesthetic Plan Anesthetic Plan: MAC: Disposition: Standard PACU
--- NOTE | 2024-06-30 09:21 | P.BOP_ITS ---
Brief Operative Note Date of Service: 06/30/24 Pre-op diagnosis: Right knee pain, osteoarthritis right knee Post-op diagnosis: same Procedure: Femoral nerve block diagnostic Surgeon: Dimitrios Tatum MD Anesthesia: MAC Was an Mobile Ui/Ux Designer used for this Procedure?: No Estimated blood loss (mL): 0 Condition: stable Disposition: PACU
--- NOTE | 2024-06-30 09:22 | W.PM.OPN ---
Operative Note Operative Note Date of Service: 06/30/24 Narrative: Right Diagnostic femoral nerve block. Patient came to the operating room after obtaining informed consent where risks and benefits were carefully explained to the patient. She was positioned supine on the operating table with ASA monitors applied. She was deeply sedated. Time not was performed delineating name and date of of the patient, side and site of the procedure, need for antibiotic prophylaxis which is none, need for DVT prophylaxis which is none. The right groin area and lower abdominal area as well as anterior thigh were prepped with ChloraPrep and draped with sterile self adhesive utility towels. The sterilely draped ultrasound probe was brought over the operating field and ultrasound picture of the femoral artery and femoral nerve were demonstrated on the screen. 22 gauge 100 mm stim needle was inserted through the skin and was advanced to were the femoral artery and femoral nerve on direct ultrasound view. When tip of the needle was in vicinity of the nerve injection of normal saline 1-2 cc was performed demonstrating spread of the contrast in perineural fashion. After that injection of the 8 cc of ropivacaine 0.5% was performed into vicinity of the nerve. The patient tolerated the procedure well. The needle was removed sterile Band-Aid was applied. She went to recovery room after that.
== END 2024-06-30 10:30 | disposition home or self-care (01) ==
PROVIDERS: PCP Internal Medicine Geriatric Medicine; Visit Provider Anesthesiology
PROC: 3E0T3BZ Introduction of Anesthetic Agent into Peripheral Nerves and Plexi, Percutaneous Approach (ICD-10-PCS; CPT 64447; principal; 2024-06-30 09:00)
DX: M25.561 Pain in right knee (principal); M17.11 Unilateral primary osteoarthritis, right knee; M11.9 Crystal arthropathy, unspecified; J45.909 Unspecified asthma, uncomplicated; E03.9 Hypothyroidism, unspecified; G93.2 Benign intracranial hypertension; Z79.1 Long term (current) use of non-steroidal anti-inflammatories (NSAID); Z79.51 Long term (current) use of inhaled steroids; Z79.85 Long-term (current) use of injectable non-insulin antidiabetic drugs; Z79.899 Other long term (current) drug therapy; Z88.5 Allergy status to narcotic agent; Z98.84 Bariatric surgery status; Z90.49 Acquired absence of other specified parts of digestive tract; Z87.891 Personal history of nicotine dependence
CPT/HCPCS: 64447; J2003; J2371; J2704; J2795; J3010

== ENCOUNTER → 2024-06-30 07:06 | Outpatient (BNV) | payer OTHER, SELFPAY | PROVIDERS: PCP Internal Medicine Geriatric Medicine; Visit Provider Anesthesiology | DX: M25.561 Pain in right knee (principal); M17.11 Unilateral primary osteoarthritis, right knee | CPT/HCPCS: 64447 ==

== ENCOUNTER 2024-08-02 09:41 | Outpatient (AMB) | payer OTHER, SELFPAY ==
--- NOTE | 2024-08-02 09:50 | A.OFFVIS_ITS ---
Vital Signs 08/02/24 09:54 Height 5 ft 3 in Weight 170 lb BMI 30.1 BP 111/70 Blood Pressure Location Lt brachial Position Sitting Respiration 20 Pulse 104 H Pulse Source Pulse Oximeter Pulse Oximetry (%) 100 Oxygen Delivery Method Room Air Intake Visit Reasons: Post op linda from about brace req Pharmacovigilance Safety Expert Required: Yes Pharmacovigilance Safety Expert Language: Frame Feeder Services: Pharmacovigilance Safety Expert Present Pharmacovigilance Safety Expert Name: liu [id number] Allergies nalbuphine (From Nubain) Allergy (Severe, Verified 08/02/24 09:50) Anaphylaxis tramadol Adverse Reaction (Verified 08/02/24 09:50) itchy HPI Comments Details: Mag is very pleasant Syrian-speaking female who presents in my office again after the attempt of diagnostic right femoral nerve block. street department dispatcher Liu [phone] was very instrumental to maintain this conversation in Syrian. It was prolonged and difficult conversation. The patient had this diagnostic injection under sedation. Unfortunately she was probably confused after the procedure and she came today with reports that her left knee pain became much better after the injection. I was asking her how did she feel about her right knee and for how long she felt pain relief and she could not give me a proper answer. She multiple times was repeating today that the injection in the right groin help the pain in the left knee. I think that the patient is very confused. I offered her to repeat diagnostic femoral nerve block this time without any sedation so the patient will be under observation immediately after the procedure and would tell us how does she feel with the pain in her knee. We also discussed possibility of treating her knee pain with total knee replacement. She stated that she lives alone and has no support and she will not be able to take care of herself if her knee would be replaced. I explained to her that there is some social network of visitor nurses and therapists who can come and help her at home. I also explained to her that she can not be sent to rehabilitation center for about 1 month to take care of herself. She is afraid to lose her subsidized housing and therefore is not very eager to go for total knee replacement. Eventually she stated that she does not want part of her bones to be cut off to replace it with the prosthesis. I also offered her PRP injection into her knees as some procedure which would not require significant social support to perform with. Patient refused she says that she does not have such amount of money to cover the cost of the procedure. Today she denied discomfort in the groin on physical exam. She states that her most of the concerns is her knee pains and lower back pain. I suggested that we concentrate on the knee pain since it is most severe for her. Prior: complains on pain in the lower back with radiation of the pain into bilateral lower extremities and sensation of the spasticity in bilateral feet and bilateral toes. lying down aggravates her back pain the most. Flexing forward and flexing backwards aggravate her pain however flexing forward aggravate her pain more than flexing backwards. She reports that she fell from the ladder on for back in December of 2023, however her pain did not start then. In May 05, 2024 she reported severe pain and she went to emergency room. She admits that heat alleviates her pain and ice application make her pain worse. She was prescribed gabapentin and cyclobenzaprine to treat her pain. She is also taking Tylenol. She reports minimal help with this medications. She can not take NSAIDs because she had gastric bypass. Her past medical history significant for hypo thyroidism pseudotumor cerebri she is under care of Dr. Badna from [facility]. Past surgical history significant for history of gastric bypass. She denies smoking cigarettes she denies drinking alcohol she denies drinking soda and caffeinated beverages and she denies recreational drugs. [facility] Medical History (Updated 08/02/24 @ 12:56 by Dimitrios Tatum MD) Diverticulosis of colon Right shoulder injury Kidney calculi Nausea & vomiting Bronchitis Close exposure to 2019-nCoV Strain of tendon of medial thigh muscle Easy bruising Hoarseness Dizziness Clostridium difficile infection Osteoarthritis of right knee Sciatica, left side Osteoarthritis of left knee Bilateral hip pain Urinary retention Painful urination Sleep apnea Somnolence, daytime Obesity (BMI 30-39.9) Migraine Syncope Pseudotumor cerebri Crystal arthropathy Kidney tumor COVID-19 vaccine administered Thyroid disease Colon polyp Bronchial asthma Acid reflux Surgical History (Updated 07/13/24 @ 17:23 by MARKEL Haji) Status post gastric bypass for obesity Status post excision of lipoma (09/10/23) History of esophagogastroduodenoscopy (EGD) History of surgery on wrist History of hysterectomy Previous section Hx laparoscopic cholecystectomy Hx of colonoscopy Family History Father Heart disease History of open heart surgery Mother Heart disease Social History Household Members: None Household Members Other:: alone Are you a primary occasional caregiver to a significant other at home: No Do you presently have visiting nurse or other home services: No Alcohol intake: never Patient Tobacco Use Status: Former Tobacco user Tobacco use type: Cigarette service: No Current occupational status: disabled Review of Systems Const All systems reviewed & are unremarkable except as noted in HPI and below ENT Reports Normal hearing present Neuro Reports Normal hearing present, Denies Abnormal speech present, Denies confusion and Denies Sensory deficit (Neuro) Psych Denies confusion Physical Exam Vital Signs: Last Vital Signs Pulse 104 H 08/02/24 09:54 Resp 20 08/02/24 09:54 BP 111/70 08/02/24 09:54 Pulse Ox 100 08/02/24 09:54 Oxygen Delivery Method Room Air 08/02/24 09:54 BMI result Body Mass Index 30.1 Const General: no acute distress; No confusion Orientation/consciousness: patient oriented x3 and No confusion Eyes General: appearance normal, both eyes and all related structures Pupils: Equal, round and reactive pupils present EOM: EOMs intact bilaterally Neck Neck: Yes full ROM Chest Chest palpation & inspection: normal inspection of the chest Resp Effort & Inspection: normal respiratory effort, able to speak in complete sentences, normal respiratory pattern, no audible wheezes and no cough Cardio Jugular venous distension: no JVD GI Inspection: Yes normal to inspection Back/Spine/Pelvis Other: Flexing forward aggravates her pain less than flexing backwards. Neuro General: patient oriented x3, gait normal and No confusion Cranial nerves: Yes CN's II-XII intact bilaterally, Yes Equal, round and reactive pupils present, Yes Normal hearing present and Yes Ability to bilaterally elevate shoulders present Speech: No Abnormal speech present Gait exam (Neuro): Normal gait present Motor exam (neuro): 5/5 motor strength present throughout Sensory Exam: No Sensory deficit (Neuro) Extrem Other: On examination of the bilateral knees the deformities are observable and there is tenderness on palpation on anterior surface of bilateral knees. General: No pedal edema Psych Speech and movement: Normal speech and movement present Affect: normal affect Attitude: cooperative Thought process: Normal thought process present Thought content: Normal thought content present Insight: Good insight present (Psych) Judgement: Good judgement present (Psych) Results Reviewed Results Reviewed: MR LUMBAR SPINE WITHOUT CONTRAST CLINICAL INFORMATION: Sacroiliitis, not elsewhere classified. COMPARISON: March 03, 2012. TECHNIQUE: MRI of the lumbar spine was obtained using routine sequences without contrast. FINDINGS: Last rib-bearing vertebra labeled T12. No bone marrow STIR signal abnormality. Multilevel marginal osteophyte formation and disc desiccation more conspicuous at T11-12. Focal hyperintense T2 signal in the posterior intervertebral disc L3-4 and L4-5 S1 likely annular fissure. There is a 1 mm anterolisthesis L3-4 and L1-2 levels. Conus medullaris ends at inferior endplate of T12 with normal signal. T11-12: No disc herniation. No neuroforamina stenosis. Facet joint and ligamentum flavum hypertrophy. T12-L1: Broad-based disc bulging. Facet joint hypertrophy. No compression upon neural elements. L1-2: Broad-based disc bulging. Facet joint and ligamentum flavum hypertrophy. Reduced AP diameter of the thecal sac and the neural foramina. No compression upon neural elements. L2-3: Broad-based disc bulging. Facet joint and ligamentum flavum hypertrophy. Reduced AP diameter of the thecal sac and the neural foramina. No compression upon neural elements. L3-4: Central broad-based disc herniation. Facet joint and ligamentum flavum hypertrophy. Reduced AP diameter of the thecal sac encroaching the neural elements. Bilateral neuroforamina narrowing without compressing the exiting nerve roots. L4-5: Broad-based disc bulging. Facet joint and ligamentum flavum hypertrophy. Reduced AP diameter of the thecal sac encroaching the L5 nerve root on the lateral recesses. Bilateral neuroforamina narrowing encroaching the L4 exiting nerve roots. L5-S1: Broad-based disc bulging. Focal hyperintense T2 signal in the posterior right disc. Reduced AP diameter of the thecal sac encroaching the S1 nerve roots. No neuroforamina stenosis. No prevertebral compartment hematoma, mass or fluid collection. Multifocal hyperintense T2 cystic lesions in the parapelvic kidneys, bilaterally. IMPRESSION: Multilevel thoracolumbar spondylosis more conspicuous at L3-4 and L4-5 and L5-S1 levels resulting in central spinal canal stenosis encroaching the nerve roots on the lateral recesses. Parapelvic renal cysts, bilaterally. Assessment & Plan Assessment & Plan (1) Radiculopathy, lumbar region: Code(s): M54.16 - Radiculopathy, lumbar region Category: Medical (2) Disc degeneration, lumbar: Code(s): M51.369 - Other intervertebral disc degeneration, lumbar region without mention of lumbar back pain or lower extremity pain Category: Medical (3) Sacroiliitis: Code(s): M46.1 - Sacroiliitis, not elsewhere classified Category: Medical (4) Osteoarthritis of right knee: Code(s): M17.11 - Unilateral primary osteoarthritis, right knee Category: Medical (5) Right knee pain: Code(s): M25.561 - Pain in right knee Category: Medical Plan Patient will continue physical therapy. 1. After evaluation of this patient's MRI there was moderate to minimal spinal canal stenosis however I do not believe that the magnitude of the stenosis can cause any urinary or pelvic organ problems. Nevertheless I will refer her to urology because she is complaining on painful urination, incontinence and urinary retention. 2. As of her knee on the right I would like to schedule her for repeat diagnostic femoral nerve block because it looks like that patient was very confused after sedation and unable to tolerate the level of her pain after the procedure. This time the procedure will be done without any sedation. 3. We agreed that we will returned to the situation in her lower back after we will sort out the condition in her knees. Patient Instructions: I here by testify that I spent 55 minutes in conversation with this patient as well as planning her care and organizing this note. Coding Level of Care Code Est Pt Level 5 (61029) Diagnoses Radiculopathy, lumbar region M54.16 Disc degeneration, lumbar M51.369 Sacroiliitis M46.1 Osteoarthritis of right knee M17.11 Right knee pain M25.561
[2024-08-02 09:54] VITALS: BP 111/70; PULSE 104; RESP 20; O2SAT 100; BMI 30.1
--- OUTSIDE RECORDS SUMMARY | 2024-08-02 10:41 | XMS_ITS | Encounter Summary ---
Author Organization [email or web address] Address [address] [place] [address] Care Team Providers Care Student Nurse Name Role Phone Name, Gregg DIAMOND Primary Care Provider [phone] Reason for Visit * Reason Onset Date Comments PT1 07/27/2023 Encounter Details Date Type Department Care Team ([facility] st Contact Info) Description 07/27/[address] [facility] [address] [place] [address] Name, MD Gregg [address] [place] [address] PT1 Social History Tobacco Use Types Packs/Day [...] name: Dr. Carson Smith MD Facility Address: [address] [place] [address] [address], [facility], [address] Escort needed: Y/N: No Do you have a wheelchair: Y/N: No If yes- Manual or electric: Visits: 2-3 Next upcoming appt 08/03/23 documented in this encounter Plan of Treatment Upcoming Encounters Date Type Department Care Team (Late st Contact Info) Description 10/18/2024 2:45 PM EDT Office Visit [facility] [address], [place] [id number] Name, MD Gregg [address] [place] [address] documented as of this encounter Visit Diagnoses Not on filedocumented in this encounter Additional Health Concerns Assessment Noted Time PHQ-9 Depression Total Score: 7 03/04/19 23 9:17 AM EST documented as of this encounter Care Teams Student Nurse Relationship Specialty Start Date End Date Name, MD Gregg [address] [place] [id number] PCP - General Family Medicine 04/16/15 [facility] 05/23/24 documented as of this encounter
== END 2024-08-02 10:49 | disposition home or self-care (01) ==
LOC: HO.PMC 09:42
PROVIDERS: PCP Internal Medicine Geriatric Medicine; Visit Provider Anesthesiology
DX: M54.16 Radiculopathy, lumbar region (principal); M51.369 Other intervertebral disc degeneration, lumbar region without mention of lumbar back pain or lower extremity pain; M46.1 Sacroiliitis, not elsewhere classified; M17.11 Unilateral primary osteoarthritis, right knee; M25.561 Pain in right knee
CPT/HCPCS: 99215

== ENCOUNTER → 2024-08-02 09:41 | Outpatient (BNVA) | payer OTHER, SELFPAY | PROVIDERS: PCP Internal Medicine Geriatric Medicine; Visit Provider Anesthesiology | DX: M54.16 Radiculopathy, lumbar region (principal); M51.369 Other intervertebral disc degeneration, lumbar region without mention of lumbar back pain or lower extremity pain; M46.1 Sacroiliitis, not elsewhere classified; M17.11 Unilateral primary osteoarthritis, right knee; M25.561 Pain in right knee | CPT/HCPCS: 99212 ==

== ENCOUNTER 2024-08-03 08:47 | Outpatient (AMB) | payer OTHER, SELFPAY ==
--- NOTE | 2024-08-03 08:48 | MHC.OFFVIS ---
Intake Visit Reasons: painful urination Intake Note: Pt presents to the office today for a new patient visit for painful urination. Urology meds:Vit B6 PVR:80ml Allergies nalbuphine (From Nubain) Allergy (Severe, Verified 08/03/24 08:49) Anaphylaxis tramadol Adverse Reaction (Verified 08/03/24 08:49) itchy Medication List - Last Reconciled 08/03/24 by Faina Gomes MD acetaminophen (Tylenol) 650 mg (2 x 325 mg) PO Q6H PRN albuterol sulfate 90 mcg/actuation (Ventolin HFA) 2 puffs PO Q6H PRN 30 days albuterol sulfate 2.5 mg (3 mL) inhalation Q4H PRN 30 days alendronate 70 mg PO TU celecoxib (Celebrex) 200 mg PO BID 30 days cetirizine 10 mg PO DAILY PRN cholecalciferol (vitamin D3) 25 mcg PO DAILY cyclobenzaprine 10 mg PO Q8H doxepin 75 mg PO BEDTIME estazolam 3 mg PO BEDTIME fluticasone propion-salmeterol 250-50 mcg/dose (Advair Diskus) 1 inh inhalation BID 30 days ibuprofen 800 mg PO Q8H PRN levothyroxine 100 mcg PO DAILY@0600 lidocaine 5% 1 patch topical DAILY magnesium oxide 400 mg PO DAILY@1200 meclizine (Dramamine Less Drowsy) 25 mg PO TID PRN omeprazole 40 mg PO DAILY@0630 ondansetron 4 mg PO Q6H PRN polyethylene glycol 3350 (Miralax) 17 grams PO DAILY pyridoxine (vitamin B6) 200 mg PO DAILY@1200 tirzepatide (weight loss) (Zepbound) mg subcut QWEEK venlafaxine mg PO HPI Comments Details: History of Present Illness - The patient is a 63-year-old female presenting with urinary retention and associated symptoms. - The patient reports difficulty in urination, requiring repositioning and straining to void, which began around January to February. - The patient experiences incomplete bladder emptying, necessitating multiple trips to the bathroom. - Symptoms have persisted for approximately six months, with no significant improvement. - The patient has attempted manual pressure on the abdomen to facilitate urination. - The patient has a history of lumbar spinal stenosis diagnosed following an MRI, which may be contributing to her urinary symptoms. - The patient experienced a significant fall from a ladder in December, which may have exacerbated her symptoms. Urinary Symptoms Review - Difficulty initiating urination, requiring repositioning and straining - Incomplete bladder emptying, necessitating multiple trips to the bathroom - Symptoms began approximately six months ago - No burning sensation during urination - Manual pressure applied to abdomen to aid urination Results - MRI: Diagnosed lumbar spinal stenosis - Urinalysis: Microscopic hematuria detected Discussion Notes I discussed with the patient the potential impact of lumbar spinal stenosis on bladder function, explaining that nerve compression could affect urinary symptoms. We reviewed the presence of microscopic hematuria and the need for further evaluation to rule out other causes. I recommended scheduling an ultrasound of the kidney and bladder, as well as urodynamic testing to assess bladder function. The patient was advised to avoid straining during urination and to apply manual pressure on the abdomen instead. Follow-up appointments were discussed to monitor progress and adjust the management plan as needed. [facility] Medical History Diverticulosis of colon Right shoulder injury Kidney calculi Nausea & vomiting Bronchitis Close exposure to 2019-nCoV Strain of tendon of medial thigh muscle Easy bruising Hoarseness Dizziness Clostridium difficile infection Osteoarthritis of right knee Sciatica, left side Osteoarthritis of left knee Bilateral hip pain Urinary retention Painful urination Sleep apnea Somnolence, daytime Obesity (BMI 30-39.9) Migraine Syncope Pseudotumor cerebri Crystal arthropathy Kidney tumor COVID-19 vaccine administered Thyroid disease Colon polyp Bronchial asthma Acid reflux Surgical History Status post gastric bypass for obesity Status post excision of lipoma (09/10/23) History of esophagogastroduodenoscopy (EGD) History of surgery on wrist History of hysterectomy Previous section Hx laparoscopic cholecystectomy Hx of colonoscopy Family History Father Heart disease History of open heart surgery Mother Heart disease Social History Household Members: None Household Members Other:: alone Are you a primary small animal caretaker to a significant other at home: No Do you presently have visiting nurse or other home services: No Alcohol intake: never Patient Tobacco Use Status: Former Tobacco user Tobacco use type: Cigarette service: No Current occupational status: disabled Review of Systems Const All systems reviewed & are unremarkable except as noted in HPI and below Reports no additional complaints Eyes Reports no additional complaints ENT Reports no additional complaints Card Reports no additional complaints Resp Reports no additional complaints GI Reports no additional complaints Reports as per HPI Musc Reports no additional complaints Skin/Breast Reports system reviewed and no additional complaints, except as documented Neuro Reports no additional complaints Psych Reports no additional complaints Endo Reports no additional complaints Servando/Lymph Reports no additional complaints Aller/Immun Reports no additional complaints Physical Exam Const General: cooperative, healthy appearing and no acute distress Orientation/consciousness: patient oriented x3 HEENT Head: Yes normal to inspection, Yes normocephalic and Yes atraumatic Eyes Conjunctivae: conjunctivae normal Neck Neck: Yes normal visual inspection and Yes trachea midline Chest Chest palpation & inspection: normal inspection of the chest Resp Effort & Inspection: normal respiratory effort GI Inspection: Yes normal to inspection Neuro General: patient oriented x3 Psych Appearance: grossly normal Office Procedures Post Void Residual Post Residual Void Post Void Residual (PVR): 80 [id number] Void Residual by ultrasound Results AMB Urinalysis, Automated UA Leukoctes 500 Radha/uL Last Edit by Rula Minaya CMA on 08/03/24 09:14 UA Nitrite Negative Last Edit by Rula Minaya CMA on 08/03/24 09:14 UA Urobilinogen 3.5 mg/dL Last Edit by Rula Minaya CMA on 08/03/24 09:14 UA Protein 15 mg/dL Last Edit by Rula Minaya CMA on 08/03/24 09:14 UA pH 6.0 Last Edit by Rula Minaya CMA on 08/03/24 09:14 UA Blood 25 Griffin/uL Last Edit by Rula Minaya CMA on 08/03/24 09:14 UA Specific [place] 1.015 Last Edit by Rula Minaya CMA on 08/03/24 09:14 UA Ketone Negative Last Edit by Rula Minaya CMA on 08/03/24 09:14 UA Bilirubin 0 mg/dL Last Edit by Rula Minaya CMA on 08/03/24 09:14 UA Glucose 0 mg/dL Last Edit by Rula Minaya CMA on 08/03/24 09:14 Results Reviewed Results Reviewed: Laboratory Last Values Urine pH (Auto) 6.0 08/03/24 09:10 Specific [place] (Auto) 1.015 08/03/24 09:10 Urine Protein (Auto) 15 mg/dL 08/03/24 09:10 Glucose (UA)(Auto) 0 mg/dL 08/03/24 09:10 Urine Ketones (Auto) Negative 08/03/24 09:10 Urine Blood (Auto) 25 Griffin/uL 08/03/24 09:10 Urine Nitrite (Auto) Negative 08/03/24 09:10 Urine Bilirubin (Auto) 0 mg/dL 08/03/24 09:10 Urine Urobilinogen (Auto) 3.5 mg/dL 08/03/24 09:10 Leukocyte Esterase (Auto) 500 Radha/uL 08/03/24 09:10 Assessment & Plan Assessment & Plan (1) Radiculopathy, lumbar region: Code(s): M54.16 - Radiculopathy, lumbar region Category: Medical (2) Disc degeneration, lumbar: Code(s): M51.369 - Other intervertebral disc degeneration, lumbar region without mention of lumbar back pain or lower extremity pain Category: Medical (3) Sacroiliitis: Code(s): M46.1 - Sacroiliitis, not elsewhere classified Category: Medical (4) Voiding dysfunction: Code(s): N39.8 - Other specified disorders of urinary system Category: Medical Plan Plan - Order an ultrasound of the kidney and bladder to evaluate for structural abnormalities. Consider office cystoscopy pending results of work up. - Schedule urodynamic testing to assess bladder function and identify potential causes of urinary retention. - Advise the patient to avoid straining during urination and to apply manual pressure on the abdomen to aid voiding. - Monitor for any changes in urinary symptoms and adjust management plan accordingly. Orders: Orders AMB Post Void Residual by ultrasound Today R32 - Unspecified urinary incontinence Urine Cytology Today R31.29 - Other microscopic hematuria AMB Urinalysis Automated Today R32 - Unspecified urinary incontinence Patient Instructions: The patient had an opportunity to ask questions regarding treatment plan. The patient expressed understanding and agreement with the above treatment plan. The patient is aware they should contact our office by phone for worsening of their current condition or the appearance of new symptoms. Compliance is encouraged with any medications and followup testing that is ordered. It is a privilege to be allowed the opportunity to participate in the urologic care of your patient. If you have any questions or concerns regarding treatment for the above conditions please do not hesitate to contact me. The office telephone contact is [phone]. This note is constructed in part using voice recognition software. While every effort has been made to ensure accuracy coating inspector errors may have been included. Yours sincerely, Faina Gomes MD Scribe Plan - Not visible on output: Patient was informed and verbally consented to the use of an ambient scribe for clinic note documentation during this visit. Coding Diagnoses Radiculopathy, lumbar region M54.16 Disc degeneration, lumbar M51.369 Sacroiliitis M46.1 Voiding dysfunction N39.8 CPT Codes Post Residual Void - PVR CPT Code: 97378-[id number] Void Residual by ultrasound ([id number])
--- OUTSIDE RECORDS SUMMARY | 2024-08-03 09:13 | XMS_ITS | Encounter Summary ---
Author Organization [employer] Address [address] [place] [address] Care Team Providers Care Tool Grinding Technician Name Role Phone Name, Gregg DIAMOND Primary Care Provider [phone] Reason for Visit * Reason Onset Date Comments PT1 07/27/2023 Encounter Details Date Type Department Care Team ([facility] st Contact Info) Description 07/27/2023 Telephone [facility] [address] [place] [address] Name, MD Gregg [address] [place] [address] PT1 Social History Tobacco Use Types Packs/Day [...] name: Dr. Carson Smith MD Facility Address: [address] [place] [address] [address], [facility], [address] Escort needed: Y/N: No Do you have a wheelchair: Y/N: No If yes- Manual or electric: Visits: 2-3 Next upcoming appt 08/03/23 documented in this encounter Plan of Treatment Upcoming Encounters Date Type Department Care Team (Late st Contact Info) Description 10/18/2024 2:45 PM EDT Office Visit [facility] [address] [place], [place] [id number] Name, MD Gregg [address] [place] [address] documented as of this encounter Visit Diagnoses Not on filedocumented in this encounter Additional Health Concerns Assessment Noted Time PHQ-9 Depression Total Score: 7 03/04/19 23 9:17 AM EST documented as of this encounter Care Teams Tool Grinding Technician Relationship Specialty Start Date End Date Name, MD Gregg [address] [place] [id number] PCP - General Family Medicine 04/16/15 [facility] 05/23/24 documented as of this encounter
== END 2024-08-03 09:47 | disposition home or self-care (01) ==
LOC: HO.HUSH 08:47
PROVIDERS: PCP Internal Medicine Geriatric Medicine; Visit Provider Urology
DX: R32 Unspecified urinary incontinence (principal)

== ENCOUNTER 2024-08-03 08:47 | Outpatient (REF) | payer OTHER, SELFPAY ==
[2024-08-03 17:53] LABS: Urine Cytology See Pathology rpt
== END 2024-08-03 08:48 | disposition home or self-care (01) ==
LOC: HO.LAB 08:47
PROVIDERS: PCP Internal Medicine Geriatric Medicine; Visit Provider Urology
DX: N39.8 Other specified disorders of urinary system (principal); R33.9 Retention of urine, unspecified; R31.29 Other microscopic hematuria; M54.16 Radiculopathy, lumbar region; M51.369 Other intervertebral disc degeneration, lumbar region without mention of lumbar back pain or lower extremity pain; M46.1 Sacroiliitis, not elsewhere classified; R32 Unspecified urinary incontinence
CPT/HCPCS: 51798; 81003; 88112; 99202

== ENCOUNTER 2024-08-11 09:19 | Outpatient (AMB) | payer OTHER, SELFPAY ==
--- NOTE | 2024-08-11 10:45 | A.OFFVIS_ITS ---
Intake Visit Reasons: Follow up Intake Note: Here for cystoscopy Allergies nalbuphine (From Nubain) Allergy (Severe, Verified 08/17/24 11:30) Anaphylaxis tramadol Adverse Reaction (Verified 08/17/24 11:30) itchy HPI Comments Details: 08/11/24--Here for Cystoscopy. Cystoscopy findings: no evidence of stenosis, no suspicious bladder lesions 08/03/24 History of Present Illness - The patient is a 63-year-old female presenting with urinary retention and associated symptoms. - The patient reports difficulty in urination, requiring repositioning and straining to void, which began around January to February. - The patient experiences incomplete bladder emptying, necessitating multiple trips to the bathroom. - Symptoms have persisted for approximately six months, with no significant improvement. - The patient has attempted manual pressure on the abdomen to facilitate urination. - The patient has a history of lumbar spinal stenosis diagnosed following an MRI, which may be contributing to her urinary symptoms. - The patient experienced a significant fall from a ladder in December, which may have exacerbated her symptoms. Urinary Symptoms Review - Difficulty initiating urination, requiring repositioning and straining - Incomplete bladder emptying, necessitating multiple trips to the bathroom - Symptoms began approximately six months ago - No burning sensation during urination Results - Urinalysis: Microscopic hematuria [facility] Medical History Diverticulosis of colon Right shoulder injury Kidney calculi Nausea & vomiting Bronchitis Close exposure to 2018-nCoV Strain of tendon of medial thigh muscle Easy bruising Hoarseness Dizziness Clostridium difficile infection Osteoarthritis of right knee Sciatica, left side Osteoarthritis of left knee Bilateral hip pain Urinary retention Painful urination Sleep apnea Somnolence, daytime Obesity (BMI 30-39.9) Migraine Syncope Pseudotumor cerebri Crystal arthropathy Kidney tumor COVID-19 vaccine administered Thyroid disease Colon polyp Bronchial asthma Acid reflux Surgical History Status post gastric bypass for obesity Status post excision of lipoma (09/10/23) History of esophagogastroduodenoscopy (EGD) History of surgery on wrist History of hysterectomy Previous section Hx laparoscopic cholecystectomy Hx of colonoscopy Family History Father Heart disease History of open heart surgery Mother Heart disease Social History Household Members: None Household Members Other:: alone Are you a primary emergency care attendant to a significant other at home: No Do you presently have visiting nurse or other home services: No Alcohol intake: never Patient Tobacco Use Status: Former Tobacco user Tobacco use type: Cigarette service: No Current occupational status: disabled Office Procedures Cystoscopy Consent Discussed risk and benefit or proposed procedure with the patient. Information consent for procedure given to the patient. Discussed technical aspects, risks, benefits and alternatives in full. Addressed all of the patient's questions and concerns regarding the procedure. The patient demonstrated knowledge and understanding. They wish to proceed with this procedure. Preparation The patient was prepped in the usual manner. A tool and die manager was present and in the room. Genitalia was prepped with betadine solution in a sterile manner. Lidocaine Jelly 2% was placed into the urethra and 16Fr flexible Olympus cystoscope was inserted into the meatus after adequate lubrication. Procedure Time out per protocol performed. Speculum used as indicated for adequate visualization of urethra, the flexible cystoscope is passed transurethrally: The bladder was inspected in its entirety with utilization retroflexion displaying: Tumor(s): no suspicious bladder lesions visualized Trabeculation: Mild Mucosal Erthema: Orifices: normal shape and position Urethra: normal Cystoscopy findings: no evidence of stenosis, no suspicious bladder lesions [id number] DISPOSABLE SCOPE URO-G FLEXIBLE SCOPE Procedure code (CPT) selection complete Office Meds lidocaine HCl 2 % mucosal jelly in applicator Performing Provider: Faina Gomes MD [facility] Administered by: Romana Norman RN on 08/11/24 10:52 Dose Route Admin Location Dispensed Lot Number Expiration Date ND Carton Stapler 10 mL intra-urethral 20 mL nitrofurantoin monohydrate/macrocrystals 100 mg capsule Performing Provider: Faina Gomes MD Performing Location: [facility] Administered by: Romana Norman RN on 08/11/24 10:52 Dose Route Admin Location Dispensed Lot Number Expiration Date ND Carton Stapler 100 mg PO 1 cap Results AMB Urinalysis, Automated UA Leukoctes 1 Radha/uL Last Edit by Romana Norman RN on 08/11/24 10:51 UA Nitrite Negative Last Edit by Romana Norman RN on 08/11/24 10:51 UA Urobilinogen 3.5 mg/dL Last Edit by Romana Norman RN on 08/11/24 10: 51 UA Protein 0.1 mg/dL Last Edit by Romana Norman RN on 08/11/24 10:51 UA pH 6.0 Last Edit by Romana Norman RN on 08/11/24 10:51 UA Blood 1 Griffin/uL Last Edit by Romana Norman RN on 08/11/24 10:51 UA Specific Ren[place] 1.02 Last Edit by Romana Norman RN on 08/11/24 10: 51 UA Ketone Negative Last Edit by Romana Norman RN on 08/11/24 10:51 UA Bilirubin 1 mg/dL Last Edit by Romana Norman RN on 08/11/24 10:51 UA Glucose 0 mg/dL Last Edit by Romana Norman RN on 08/11/24 10:51 Results Reviewed Results Reviewed: Laboratory Last Values Urine pH (Auto) 6.0 08/11/24 08:04 Specific Reno (Auto) 1.02 08/11/24 08:04 Urine Protein (Auto) 0.1 mg/dL 08/11/24 08:04 Glucose (UA)(Auto) 0 mg/dL 08/11/24 08:04 Urine Ketones (Auto) Negative 08/11/24 08:04 Urine Blood (Auto) 1 Griffin/uL 08/11/24 08:04 Urine Nitrite (Auto) Negative 08/11/24 08:04 Urine Bilirubin (Auto) 1 mg/dL 08/11/24 08:04 Urine Urobilinogen (Auto) 3.5 mg/dL 08/11/24 08:04 Leukocyte Esterase (Auto) 1 Radha/uL 08/11/24 08:04 Assessment & Plan Assessment & Plan (1) Radiculopathy, lumbar region: Code(s): M54.16 - Radiculopathy, lumbar region Category: Medical (2) Disc degeneration, lumbar: Code(s): M51.369 - Other intervertebral disc degeneration, lumbar region without mention of lumbar back pain or lower extremity pain Category: Medical (3) Sacroiliitis: Code(s): M46.1 - Sacroiliitis, not elsewhere classified Category: Medical (4) Voiding dysfunction: Code(s): N39.8 - Other specified disorders of urinary system Category: Medical Plan Cystoscopy findings: no evidence of stenosis, no suspicious bladder lesions Schedule UDS Orders: Orders AMB Urinalysis Automated 08/11/24 Z13.9 - Encounter for screening, unspecified AMB Cystoscopy 08/11/24 N39.8 - Other specified disorders of urinary system, R32 - Unspecified urinary incontinence Patient Instructions: The patient had an opportunity to ask questions regarding treatment plan. The patient expressed understanding and agreement with the above treatment plan. The patient is aware they should contact our office by phone for worsening of their current condition or the appearance of new symptoms. Compliance is encouraged with any medications and followup testing that is ordered. It is a privilege to be allowed the opportunity to participate in the urologic care of your patient. If you have any questions or concerns regarding treatment for the above conditions please do not hesitate to contact me. The office telephone contact is [phone]. This note is constructed in part using voice recognition software. While every effort has been made to ensure accuracy account development associate errors may have been included. Yours sincerely, Faina Gomes MD Coding Level of Care Code Procedure Only Diagnoses Radiculopathy, lumbar region M54.16 Disc degeneration, lumbar M51.369 Sacroiliitis M46.1 Voiding dysfunction N39.8 CPT Codes Cystoscopy - CPT: [id number] ([id number])
== END 2024-08-11 10:46 | disposition home or self-care (01) ==
LOC: HO.HUSH 09:19
PROVIDERS: PCP Internal Medicine Geriatric Medicine; Visit Provider Urology
DX: N39.8 Other specified disorders of urinary system (principal); R32 Unspecified urinary incontinence; Z13.9 Encounter for screening, unspecified
CPT/HCPCS: 52000

== ENCOUNTER → 2024-08-11 09:19 | Outpatient (BNVA) | payer OTHER, SELFPAY | PROVIDERS: PCP Internal Medicine Geriatric Medicine; Visit Provider Urology | DX: N39.8 Other specified disorders of urinary system (principal); M54.16 Radiculopathy, lumbar region; M51.369 Other intervertebral disc degeneration, lumbar region without mention of lumbar back pain or lower extremity pain; M46.1 Sacroiliitis, not elsewhere classified | CPT/HCPCS: 52000; 81003 ==

== ENCOUNTER 2024-08-29 08:21 | Outpatient (REF) | payer OTHER, SELFPAY ==
--- OUTSIDE RECORDS SUMMARY | 2024-08-29 08:29 | XMS_ITS | Encounter Summary ---
Author Organization [employer] Address [address] [place] [address] Care Team Providers Care Chucking And Boring Machine Operator Name Role Phone Name, Gregg DIAMOND Primary Care Provider [phone] Reason for Visit * Reason Onset Date Comments PT1 07/27/2023 Encounter Details Date Type Department Care Team ([facility] st Contact Info) Description 07/27/2023 Telephone [facility] [address] [place] [address] Name, MD Gregg [address] [place] [address] PT1 Social History Tobacco Use Types Packs/Day [...] name: Dr. Carson Smith MD Facility Address: [address] [place] [address] [address], [facility], [address] Escort needed: Y/N: No Do you have a wheelchair: Y/N: No If yes- Manual or electric: Visits: 2-3 Next upcoming appt 08/03/23 documented in this encounter Plan of Treatment Upcoming Encounters Date Type Department Care Team (Late st Contact Info) Description 10/18/2024 2:45 PM EDT Office Visit [facility] [address] [place], [place] [phone] Name, MD Gregg [address] [place] [address] documented as of this encounter Visit Diagnoses Not on filedocumented in this encounter Additional Health Concerns Assessment Noted Time PHQ-9 Depression Total Score: 7 03/04/19 23 9:17 AM EST documented as of this encounter Care Teams Chucking And Boring Machine Operator Relationship Specialty Start Date End Date Name, MD Gregg [address] [place] [address] PCP - General Family Medicine 04/16/15 [facility] 05/23/24 documented as of this encounter
--- OUTSIDE RECORDS SUMMARY | 2024-08-29 08:29 | XMS_ITS | Continuity of Care Document ---
Author Organization [facility], [facility] Address [address] [place] [address] Care Team Providers Care Manager Transport Name Role Phone HIM CCA OTHER NAME, CUAUHTEMOC Primary Care Provider Assessment Encounter Date Assessment Date Assessment LastModified by Organization Details LastModified Time 08/24/2024 08/24/2024 63 yo F with chronic low back pain and b/l knee pain c/w OA. Has taken NSAIDs in the past and has been given short rx of oxycodone for severe pain in the past. Patient ambulates at baseline with a walker. VS wnl. Will give IM toradol 30mg x 1 now for pain. Advised to FUP with PCP and consider whether or not corticosteroid injections may be helpful with PT and/or ortho referral. Not available 08/24/2024 20:22:33 Plan of Treatment Reminders Order Date Submit Date Provider Last Modified By Organization Details Last Modified Time Details Appointments None recorded. Lab None recorded. Referral None recorded. Procedures None recorded. Surgeries None recorded. Imaging None recorded. Medication Orders ketorolac 30 mg/mL injection solution 2024 025 [email or web address] 7 [facility], [address] [place], [place], [id number], 20:20:41 Patient TargetsNo targets recorded. Patient InstructionsNo instructions recorded. Reason for Referral None Reported. Medical Equipment None Reported. Allergies Allergen ID Allergen Name Allergen Category Reaction Reaction Severity Criticality Documentation Date Start Date Code Code System Note Provider Name and Address Organization Details Recorded Time 97884 Nubain medicatio n Not available Not available Not available 05/19/2024 7550 RxNorm Christina Ashford MD [address] [facility], [place], [address] , [place] [employer] 5 13:03:23 03262 tramadol medicatio n Not available Not available Not available 06/07/2024 82844 RxNorm Not Available [facility] 17:33:16 Medications Name Sig Start [...] by Pulse oximetry Respiratory rate Heart rate Body temperature Systolic And Diastolic Provider Name and Address Organization Details Last Updated DateTime 99 % 99 % 18 /min 98 /min 98.4 [degF] 124/68 mm[Hg] Not Available [facility] production 20:18:49 Social History None recorded. Functional Status None recorded. Mental Status None recorded. Family History Nothing Reported. Medical History No medical history recorded. Gynecological HistoryNo gynecological history recorded. Obstetrics History GPAL:G 0 P 0 0 0 0 Past Encounters Encounter ID Performer Location Encounter Start Date Encounter Closed Date Diagnosis/Indication Diagnosis SNOMED-CT Code Diagnosis ICD10 Code Diagnosis Note [id number] Jameel Haddad MD [address] [address] 08/10/2024 16:44:04 08/10/2024 20:30:05 Flank pain [id number] R10.9 Acute on chronic pain. Has urology appointmen t tomorrow for bladder testing. No bowel or bladder incontinen ce. U/A negative. Will send culture to lab. Chronic pain syndrome 37 [id number] G89.4 Acute on chronic. Has hx of spinal stenosis, followed by pain clinic, awaiting injections . Pain similar to prior exacerbati ons, no recent trauma. No red flag neurologic al signs. Discussed red flag signs for which to seek higher level of care including bowel or bladder incontinen ce or worsening pain after Toradol injection. Has Tylenol at home and also has NSAIDS which nephrology said she can use intermitte ntly during the week. [id number] JANA EMMANUEL MD [address] [address] 08/24/2024 20:18:45 08/24/2024 22:21:01 Osteoarthritis of knee [id number] M17.10 Health Concerns Section Related Observation LastModified by Organization Detai ls LastModified Time None Recorded Concern Status LastModified by Organization Details LastModified Time None Recorded Payers Encounter Date Sequence Insurance Name Policy Number Policy Schrader Covered Member ID Schrader Member ID Guarantor Name 08/24/2024 1 [facility] - DOS ON OR AFTER 2022 - DUAL ELIGIBLE - SKILLED NURSING OPTIONS AND ONE CARE (MEDICARE REPLACEMENT/ADV ANTAGE - HMO) Mag Ayala [id number] Mag Ayala Notes Date Note Type Note Provider Name and Address Organization Details Recorded Time 08/24/2024 text/html [facility] Nurse Triage Notes (Nadya Conde): Reason For Request: back and knee pain Chief Complaints: Extremity Pain PMH: Anxiety Disorder, Asthma, Chronic Pain, Depression, Osteoporosis, Hypothyroidism, Gastroesophageal Reflux Disease (GERD), Sleep Apnea, Inflammatory Bowel Disease (Crohn's Disease, Ulcerative Colitis), Cancer PMH Reviewed at 08/24/2024 - : Allergies Reviewed at 08/24/2024 - : Comments: 63 y.o female complains of Extremity Pain patient self referring. Patient complaining of low back pain and bilateral knee pain - is chronic but today has increasingly gotten worse 11/24. Icy hot applied today with little relief. denies any falls or injuries able to move all 4 extremities patient denies any kidney disease but does produce frequent stones and denies being on any blood thinners. is requesting instED visit for pain. I provided information on the mobile health provider response time and advised the patient and/or caregiver to monitor reported signs and symptoms. I discussed the warning signs of when to seek emergency care. ...................... ...................... ...................... ...................... ...................... ...................... ......... [employer] Leaf [employer] Note From Beto Nowak: Dispatched to above address for back and knee pain. On arrival patient 63 y/o F, met SC8 at the door, walking with walker normal gait, AOX4, airway patent, speaking in full sentences, good color, in no apparent distress. Patient states she is having a flare up of her chronic back and knee pain. Patients vital signs checked. Patient states this started yesterday, is severe pain, has not taken anything. Secondary assessment, pupils PERRL, airway patent, no JVD, trachea midline, equal chest rise and fall, lungs clear all hunt, abdomen soft non tender, no signs of trauma, good radial pulse, skin pink warm and dry. [facility] contacted, spoke with Dr. Emmanuel, advised of patient complaints and exam findings. [facility] orders 30 Toradol given IM, recommends follow up with PCP for ongoing pain management. Patient agrees with this plan. Patients allergies verified, med verified, order verified. Patient administered 30mg Toradol IM. Patient advised of home care red flags and need for follow up. Patient has no additional questions or concerns at this time. SC8 clear. [facility]. [facility] Medication Orders: ketorolac 30 mg/mL injection solution: Administered ...................... ...................... ...................... ...................... ...................... ...................... ......... [facility] Consulted: Jana Emmanuel ...................... ...................... ...................... ...................... ...................... ...................... ......... Disposition: Fulfilled JANA EMMANUEL MD [address] [facility], [place], [address], [employer] 08/24/2024 21:35:55 OBGyn Episode No OBEpisode recorded.
--- OUTSIDE RECORDS SUMMARY | 2024-08-29 08:29 | XMS_ITS | Encounter Summary ---
Author Organization [facility] Address [address] [place] [address] Encounters * CPT with Randall Hartmann at [employer] on 2024-08-25 { reasonForRequest : back and knee pain , patientReports : , denies :[], chiefComplaints : Extremity Pain , pmh : Anxiety Disorder, Asthma, Chronic Pain, Depression, Osteoporosis, Hypothyroidism, Gastroesophageal Reflux Disease (GERD), Sleep Apnea, Inflammatory Bowel Disease (Crohn's Disease, Ulcerative Colitis), Cancer , allergies : Tramadol , otherAllergies : Nubain&quo t;, painAssessment : , visitOutcome : , additionalComments : 63 y.o female complains of Extremity Pain\npatient self referring.\nPatient complaining of low back pain and bilateral knee pain - is chronic but today has increasingly gotten worse11/24. \nIcy hot applied today with little relief. \ndenies any falls or injuries\nable to move all4 extremities\npatient denies any kidney disease but does produce frequent stones and denies being on any blood thinners. \nis requesting [facility] visit for pain.\n\nI provided information on the mobile health provider response time and advised the patient and/or caregiver to monitor reported signs and symptoms. I discussed the warning signs of when to seek emergency care. } Dispatched to above address for back and [...] radial pulse, skin pink warm and dry. [facility] contacted, spoke with Dr. Macias, advised of patient complaints and exam fi ndings. [facility] orders 30 Toradol given IM, recommends follow up with PCP for ongoing pain management. Patient agrees with this plan. Patients allergies verified, med verified, order verified. Patient administered 30mg Toradol IM. Patient advised of home care red flags and need for follow up. Patient has no additional questions or concerns at this time. SC8 clear. [facility]. IV_(FLUIDS_AND/OR_MEDICATION), MEDICATION_IM, ORAL_MEDICATION, WOUND_CARE, ORTHOSTATIC_VITAL_SIGNS Written by Randall Hartmann on 2024-08-25
[2024-08-29 11:15] LABS: MANUAL DIFF FLAG NO
[2024-08-29 11:26] LABS: Hematocrit 39.6 % (37.0-47.0); Hemoglobin 12.3 g/dl (12.0-16.0); Imm Gran Abs Auto 0.02 X10*3/uL (0.00-0.03); Imm Gran Pct Auto 0.3 % (0.0-0.4); Lymphocytes Absolute Auto 1.9 X10*3/uL (1.2-4.9); Mean Corpuscular HGB Conc 31.1 g/dl (31.0-35.0); Mean Corpuscular Hemoglobin 26.9 pg (27.0-33.0); Mean Corpuscular Volume 86.7 fL (80.0-98.0); NRBC Abs Auto 0.000 X10*3/uL (0.0-0.012); NRBC Pct Auto 0.0 /100WBC (0.0-0.2); Platelet Count 320 X10*3/uL (160-400); Red Blood Count 4.57 X10*6/uL (4.20-5.50); White Blood Count 6.3 X10*3/uL (4.8-10.8)
[2024-08-29 12:02] LABS: Alanine Aminotransferase 16 U/L (0-31); Albumin Level 3.7 g/dL (3.5-5.0); Alkaline Phosphatase 74 U/L (39-117); Anion Gap 11 (12-20); Aspartate Amino Transferase 27 U/L (5-31); Blood Urea Nitrogen 17 mg/dL (9-16); Calcium 8.7 mg/dL (8.4-10.2); Carbon Dioxide 30 mmol/L (22-29); Chloride 105 mmol/L (96-108); Estimated Glomerular Filt Rate > 60; Potassium 4.4 mmol/L (3.3-5.1); Sodium 142 mmol/L (135-145); Total Protein 6.7 g/dL (6.5-8.0)
== END 2024-08-29 08:22 | disposition home or self-care (01) ==
LOC: HO.HHCL 08:21
PROVIDERS: Internal Medicine Medical Oncology; PCP Internal Medicine Geriatric Medicine; Visit Provider Internal Medicine Geriatric Medicine
DX: R63.5 Abnormal weight gain (principal); R23.3 Spontaneous ecchymoses
CPT/HCPCS: 36415; 80053; 84443; 85025

== ENCOUNTER 2024-09-26 14:12 | Outpatient (REF) | payer OTHER, SELFPAY ==
--- NOTE | ~2024-09-26 | XR_ITS ---
EXAMINATION: XR CLAVICLE LEFT HISTORY: pain COMPARISON: There are no prior studies available for comparison. FINDINGS: Two views of the left clavicle are submitted. Osseous mineralization is normal. There is no fracture or dislocation. There is mild to moderate degenerative change of the AC joint. The soft tissues are unremarkable. XR/XR clavicle LT IMPRESSION: No evidence of fracture of the left clavicle. Electronically signed by: Darren Peralta MD 09/26/2024 03:26 PM EDT
--- OUTSIDE RECORDS SUMMARY | 2024-09-26 15:09 | XMS_ITS | Encounter Summary ---
Author Organization Counts Include [facility] Address [address] [place] [address] Encounters * CPT with Medical [facility] at [place] on 2024-09-22 { reasonForRequest : Pt requesting help>call immediately tx'd to CRC , patientReports : , denies :["Worst Headache of life , New onset of vision loss , Sudden onset -unilateral weakness/gait disturbance , Fall with head strike and altered LOC , New onset of Slurred speech or difficulty finding words , Sudden Mental status changes , Head pain with fever chills and neck pain , Seizure activity ], chiefComplaints": Back Pain , pmh : Anxiety Disorder, Asthma, Chronic Pain, Depression, Osteoporosis, Hypothyroidism, Gastroesophageal Reflux Disease (GERD), Sleep Apnea, Inflammatory BowelDisease (Crohn's Disease, Ulcerative Colitis), Cancer , allergies : Tramadol, Nu mario , otherAllergies :null, painAssessment : , visitOutcom e : , additionalComments : 63 y.o female complains of Back Pain\nPatient calling reporting mid lower back pain since last week. Patient also reporting pain in L shoulder. Patient reports she was seen by [facility] last week and had Toradol shot that helped her. Patient reports the pain is so severe she is having trouble sleeping. Patient reports she was recently taken off her Gabapentin due to weight gain. Patient denies pain radiating down legs, but reports her legs \ feel like gelatin\ . Patient denies numbness or tingling. Patient reports comes and goesat times. Patient reports she has tried laying in multiple positions, walking, ice and Bengay all have not helped her symptoms. Patient reports sitting for too long makes the pain worse. Patient lasttook Tylenol this morning with little relief in symptoms. I provided information on the mobile health provider response time and advised the patient and/or caregiver to monitor reported signs and symptoms. I discussed the warning signs of when to seek emergency care -Belem Whaley RN } SC12 dispatched to the address listed above for the report of a female democrat with back pain. Arrival on scene, patient found inside apartment seated in chair, alert and oriented x4, patent airway, breathing non labored speaking in complete sentences, skin WPD in no obvious distress. +/= Chest rise.-SOB, -CP, - NVD, -Trauma, -Fever. GCS 15. Patient reports history of chronic back pain with historyof 2 slipped disks, osteoporosis, and osteoarthritis. Patient reports current flare up of back painstarted this morning at 0400, reports back pain does not worsen on movement or palpation but does worsen when she is sitting for a while. Patient describes back pain starting in the lower middle backand radiating up the spine to her left shoulder. Patient reports that she took Tylenol this morningwithout improvement, reports she has not taken any Ibuprofen today, patient denies any kidney disease. Patient reports that she was seen by [facility] last week for same issue and was given Toradol IM, patient reported improvement in pain with Toradol. Patient denies any recent trauma, denies fever/chills. MIH noted no redness or bruising to the back. Patient vital signs obtained as noted. [facility] consulted, provided orders for 30mg Toradol IM. 30mg Toradol IM administered in right deltoid, six patientrights verified prior. [facility] advised that she would not be able to have more Toradol for another 2-3 weeks. Red flags discussed with patient, advised to call 911 if her condition worsens. SC12 Clear. IV_(FLUIDS_AND/OR_MEDICATION), MEDICATION_IM, ORAL_MEDICATION, EKG Written by [facility] on 2024-09-22
--- OUTSIDE RECORDS SUMMARY | 2024-09-26 15:09 | XMS_ITS | Clinical Summary ---
Author Organization [facility] Address [address] [place] [id number] Phone Care Team Providers Care Rag Baler Name Role Phone Name, Gregg DIAMOND Primary Care Provider [phone] Allergies Active Allergy Reactions Criticality Noted Date Comments Nalbuphine 08/24/2017 Medications estazolam (PROSOM) 2 MG tablet Take 3 mg by mouth nightly. Active doxepin (SINEQUAN) 75 MG capsule Take 75 mg by mouth nightly at bedtime. Active perphenazine (TRILAFON) 4 MG tablet Take 4 mg by mouth daily. Active BECLOMETHASONE DIPROPIONATE INHL Inhale into the lungs. Active albuterol 90 mcg/actuation inhaler Inhale 2 puffs into the lungs 4 (four) times a day as needed for wheezing. Active magnesium oxide 400 mg Cap Take 400 mg by mouth daily. Active multivitamin per tablet Take 1 tablet by mouth daily. Active lidocaine (LIDODERM) 5 % Place 1 patch onto the skin daily. Remove & Discard patch within 12 hours or as directed by MD Active lorcaserin 20 mg [id number] atus post bariatric surgery Take 20 mg by mouth daily. 30 tablet 5 07/15/19 Active Additional Information Patient not taking.Reported on 11/05/2023 FLOVENT HFA 220 mcg/actuation inhaler INHALE 1 PUFF TWICE DAILY. IN THE EVENING 02/10/20 Active omeprazole (PRILOSEC) 20 MG capsule TAKE 1 CAPSULE EVERY DAY 30 MINUTES TO 1 HOUR BEFORE A MEAL 02/10/20 Active ibuprofen (ADVIL,MOTRIN) 400 MG tablet Take 400 mg by mouth. 01/21/20 Active acetaminophen (TYLENOL) 500 MG tablet Take 500 mg by mouth. 02/20/19 Active calcium carb/D3/magnesium/ zinc (CALCIUM CARB-D3-MAG AUZ14-ODKL) [phone] gw-tbrv-zk-mg Tab Take 1 tablet by mouth. Active ascorbic acid, vitamin C, (VITAMIN C) 1000 MG tablet Take 2,000 mg by mouth daily. Active cholecalciferol (VITAMIN D3) 25 MCG (1,000 unit) tablet TAKE 1 TABLET BY MOUTH EVERYDAY AT NOON 06/13/19 Active midodrine (PROAMATINE) 10 MG tablet TAKE 1 TABLET BY MOUTH TWICE DAILY AT NOON AND IN THE EVENING 05/20/19 23 Active pyridoxine, vitamin B6, (B-6) 100 MG tablet TAKE 2 TABLETS BY MOUTH ONCE DAILY IN THE MORNING 05/01/19 23 Active meclizine (ANTIVERT) 25 mg tablet Take 1 tablet by mouth 2 (two) times a day. 11/18/19 23 Active hydroCHLOROthiazid e 12.5 MG tablet Take 12.5 mg by mouth. 06/07/19 24 Active chlorhexidine (PERIDEX) 0.12 % solution Use as directed 15 mL in the mouth or throat. 08/02/19 24 Active ADVAIR DISKUS 250-50 mcg/dose DISKUS Inhale 250 mcg/actuation of fluticasone into the lungs 2 (two) times a day. 10/04/19 24 Active hydrocortisone 0.5 % cream Apply topically 2 (two) times a day. 10/26/19 24 Active mometasone (ASMANEX HFA) 200 mcg/actuation HFA inhaler Inhale 2 puffs into the lungs 2 (two) times a day. 04/09/19 24 Active WEGOVY 1 mg/0.5 mL subcutaneous injection Inject 1 mg under the skin. 08/11/19 24 Active levothyroxine (SYNTHROID) 100 MCG tabletIndications: Acquired hypothyroidism Take 1 tablet (100 mcg total) by mouth every morning. 90 tablet 3 11/05/19 24 Active Active Problems Problem Noted Date Diagnosed Date Hx of pheochromocytoma 11/20/2022 Assessment & Plan (05/04/2024 10:59 AM EDT): Based on last labs were in the reference range. Requested repeat levels. Should be done yearly. Assessment & Plan (11/05/2023 10:35 AM EDT): Plasma metanephrines, within reference. Repeat levels yearly. Assessment & Plan (04/12/2023 4:35 PM EST): Metanephrines within the reference range. Must check metanephrines at least once a year. Assessment & Plan (11/20/2022 11:08 AM EDT): Did not receive initial lab work, requested again today. Hirsutism 05/23/2020 Assessment & Plan (05/23/2020 11:36 AM EDT): The patient complains of hirsutism. I will evaluate for congenital adrenal hyperplasia, [place] syndrome, polycystic ovarian syndrome although that seems unlikely. She was advised to do lab work fasting. She must to do this early in the morning soon after waking up. She must take dexamethasone 1 mg tablet the night before blood work. Over weight 07/14/2018 Assessment & Plan (11/05/2023 10:38 AM EDT): Has lost 22 lbs with use Wegovy. Insists that Phentermine is helping her lose weight. I told her it can be associated with tachyphylaxis so it is not effective if continue consistently. Therefore suggested use 3 months and stop for 3 months, and repeat cycle. Assessment & Plan (04/12/2023 3:16 PM EST): Gained 4 lbs since the last visit. Phentermine not very effective but the insurance company will not pay for other obesity medications. Assessment & Plan (11/20/2022 11:09 AM EDT): Weight stable on Phentermine. Assessment & Plan (06/26/2022 10:57 AM EDT): Continues to gain weight, phentermine can result in tachyphylaxis so maybe this is why the medication is not always effective. Sometimes she has to stop it for a month to 3 months and then resume it. I will continue to prescribe the medication. She needs to monitor her diet. Assessment & Plan (12/23/2021 1:07 PM EST): Will prescribe Saxenda to start 0.6 mg daily for 1-2 weeks, if no nausea increase to 1.2 mg, and increase by 0.6 mg every 2 weeks. Assessment & Plan (09/29/2021 10:43 AM EDT): Continue phentermine Assessment & Plan (03/31/2021 3:15 PM EST): Continue phentermine, diet and exercise. Assessment & Plan (01/03/2021 8:55 AM EST): Continue on phentermine, no changes. Assessment & Plan (07/03/2020 1:19 PM EDT): He is tolerating phentermine without any adverse effects taking full tablet has lost 7 pounds she is happy with her results. We will continue current medications. She has not had any tachycardiac or other cardiac symptoms. Assessment & Plan (05/23/2020 11:59 AM EDT): She continues to gain weight. But she is currently off Adipex she is monitoring her diet. I informed her that she should try to exercise because she eats relatively healthy but maybe she is just sedentary. She states that her elevators broke. She has knee pain so is difficult for her to exercise. She should consider swimming. Assessment & Plan (03/07/2020 12:36 PM EST): Continue Phentermine. She needs to eat anywhere from 1500 to 1700 alfredo based on her body weight to lose weight. Assessment & Plan (09/05/2019 11:48 AM EDT): Patient is overweight will continue to take Adipex as needed. Assessment & Plan (05/30/2019 2:11 PM EDT): Continue with diet. The patient is unable to do exercise presently. She should stop adipex for 3 months and resume after 3 months. Assessment & Plan (02/28/2019 10:31 AM EST): Based on her home weights she is lost 7 pounds and based on her weights from the office is lost 5 pounds. She wants to continue on phentermine and I have prescribed the medication again for 30 days with 3 refills and will reevaluate in 4 months. Assessment & Plan (11/28/2018 12:36 PM EDT): The patient wants me to prescribe Adipex which is a controlled substance and this is phentermine at 37.5 mg daily. She can afford this. She is taking doxepin and that does not appear to be a drug drug interaction with this but it can lead to false assays of amphetamine work-up. The patient does not have any contraindications such as cardiovascular disease to use phentermine. However I have informed that that the medication works but it does not last for very long is probably works for 3 months and then may be she will benefit from discontinuing it and probably starting again in another 3 months because this medication results and tachyphylaxis is just not effective long-term. In any case I did prescribe the medication and hopefully she will do well and lose weight but she has to remember to diet and exercise. I warned her that the medication is associated with palpitations and if she is having too much palpitations she may have to discontinue the medication. Assessment & Plan (08/26/2018 10:33 AM EDT): The patient did lose 2 pounds due to dieting and walking for exercise. She needs to continue her best with this because her insurance company is not approving any other weight loss medications even though we did prior authorization. Her exercise is limited due to right shoulder injury. My recommendation is to continue walking as much as she can try to get 10,000 steps or more in. Also I discussed the [employer] fitness pal kamla so that she can start documenting calorie intake and this should help her improve her diet. Assessment & Plan (07/14/2018 1:08 PM EDT): Despite bariatric surgery and topiramate the patient continues to gain weight. She states she is monitoring her diet and exercising as much as he can. Will prescribeLorcaserin no contraindications at the present time. Status post bariatric surgery 06/14/2018 Assessment & Plan (07/14/2018 1:08 PM EDT): I did not find any mineral vitamin abnormality so unclear why the patient is having syncopal episodes or dizziness. She is on appropriate supplementation. Assessment & Plan (06/14/2018 12:57 PM EDT): Patient complains that she is gaining excessive weight 10 pounds. She is also complaining of presyncopal episode dizziness. She is being worked up with Holter monitor to see why she is having the symptoms. It is unclear if she is having hypoglycemia. I would do a series of lab work specifically minerals and vitamin C for evaluation of deficiency. I will have her follow-up in a month for evaluation of these results. She probably is going to require obesity medications these are very expensive and her insurance usually does not cover it. We spent a good amount of time discussing medical options. I am concerned regarding using phentermine because of possible palpitations and the medication is quite expensive and has minimal benefit. There is other medication such as Lyrica, Qsymia and Contrave that we could consider. However I do need to review the contraindication and possible adverse effects. I think that she is going to need a regular follow-up for obesity because her thyroid condition is for the most part fine. Return for follow-up in a month. Acquired hypothyroidism 12/21/2017 Assessment & Plan (05/04/2024 10:59 AM EDT): Chemically and clinically euthyroid based on last TFT's but do not have recent TFT's. Will request that lab slip be mailed to her home. Continue levothyroxine 100 mcg daily. Assessment & Plan (11/05/2023 10:37 AM EDT): Chemically and clinically euthyroid. Continue levothyroxine 100 mcg daily. Repeat TFTs in one year. Assessment & Plan (04/12/2023 4:36 PM EST): Chemically euthyroid based on last thyroid functions studies. Thyroid functions were last checked was in the reference range. Recent lab work not available contacted [facility] for results. Will renew medications at the current dose. Assessment & Plan (11/20/2022 11:09 AM EDT): Chemically and clinically euthyroid, continue current dose of levothyroxine 100 mcg daily. Repeat TFT's in 6 months. Assessment & Plan (06/29/2022 1:26 PM EDT): The patient is chemically and clinically euthyroid we will continue current dose of medication. She should repeat thyroid function studies prior to the follow-up visit in 6 months. Assessment & Plan (12/23/2021 1:03 PM EST): Chemically euthyroid, continue levothyroxine 100 mcg daily. No changes. Assessment & Plan (09/29/2021 10:42 AM EDT): Chemically euthyroid , complains of fatigue. She saw a program on television regarding metabolism and would like a free T3 level checked. I will request this for the follow-up visit but based on her TSH and free T4 she is in the reference range and she should continue levothyroxine 100 mcg. Assessment & Plan (03/31/2021 3:15 PM EST): Clinically euthyroid we will continue levothyroxine 100 mcg was unable to repeat lab work but she has been Stable for many years. I will request thyroid functions again in 6 months. Assessment & Plan (01/03/2021 8:49 AM EST): Chemically and clinically euthyroid. I would not make any changes. She should continue to Levothyroxine Levothyroxine 100 mcg daily. Repeat TFT's prior to the follow visit. Assessment & Plan (07/03/2020 1:18 PM EDT): The patient is chemically and clinically euthyroid on levothyroxine will continue levothyroxine 100 mcg. Repeat thyroid functions prior to the follow-up visit. Return for follow-up in 6 months. Assessment & Plan (05/23/2020 11:37 AM EDT): She remains chemically and clinically euthyroid continue levothyroxine 100 mcg daily. Repeat thyroid function studies in approximately 6 months. Assessment & Plan (03/07/2020 12:32 PM EST): She is chemically and clinically euthyroid. Continue levothyroxine 100 mcg. Repeat TFTs in 6 months. Assessment & Plan (09/05/2019 11:46 AM EDT): The patient is chemically and clinically euthyroid continue levothyroxine 100 mcg. We will repeat thyroid function studies in 6 months time. Assessment & Plan (05/30/2019 2:12 PM EDT): She is chemically and clinically euthyroid on Levothyroxine 100 mcg daily. Assessment & Plan (02/28/2019 10:30 AM EST): The patient is chemically and clinically euthyroid on levothyroxine and I will renew the dose I have requested thyroid function studies to be done in May. To do them before the visit. Assessment & Plan (11/28/2018 12:30 PM EDT): Chemically and clinically euthyroid. No changes in the dose of levothyroxine therapy. Assessment & Plan (08/26/2018 10:33 AM EDT): The patient is chemically and clinically euthyroid she needs to repeat thyroid function studies in May 2019. She ran out of her medications so I will renew it. Assessment & Plan (06/14/2018 12:54 PM EDT): Chemically and clinically euthyroid continue levothyroxine 100 mcg daily. Repeat thyroid functions in 3 to 6 months. Assessment & Plan (03/15/2018 12:35 PM EST): The patient is chemically euthyroid. Clinically she is not but I suspect that the symptoms of fatigue, weight gain have nothing to do with her thyroid condition because she is on a good dose of levothyroxine. If I were to increase it I will essentially make a hyperthyroid making her symptoms worse. She would like to follow-up in 3 months time we will repeat the thyroid function studies then. Assessment & Plan (12/21/2017 10:55 AM EST): The patient is chemically euthyroid on levothyroxine 100 mcg. She does not feel good and is unclear why. I could not say that is her thyroid because the levels are within the reference range. She does have follow-up with gallery assistant and hopefully this will yield some information. I would not make any changes to the dose of levothyroxine. Family History Medical History Relation Comments Coronary artery disease Father Coronary artery disease Mother Relation Status Comments Father Alive Mother Alive Social History Tobacco Use Types Packs/Day Years Used Date Smoking Tobacco: Never Smokeless Tobacco: Never Alcohol Use Standard Drinks/Week Comments No 0 (1 standard drink = 0.6 oz pur e alcohol) Education Answer Date Recorded Are you interested in more education? Not on eden e 06/12/2022 Are you concerned about learning? Not on file 06/12/2022 No 06/12/2022 No 06/12/2022 Digital Access Answer Date Recorded No 07/11/2022 No 07/11/2022 Reliable internet access at home? Not on file 07/11/2022 Device with a working camera? Not on file Comments Unknown Sex and Gender Information Value Date Recorded Sex Assigned at Not on file Legal Sex Female 2:19 PM EDT Gender Identity Not on file Sexual Orientation Not on file Last Filed Vital Signs Vital Sign Reading Time Taken Comments Blood Pressure 123/99 11/05/2023 9:49 AM EDT Pulse 83 11/05/2023 9:49 AM EDT Temperature - - Respiratory Rate - - Oxygen Saturation 98% 02/28/2019 10: 16 AM EST Inhaled Oxygen Concentration - - Weight 77.9 kg (171 lb 11.8 oz) 11/05/2023 9:49 AM EDT Height 160 cm (5' 2.99 ) 02/28/2019 10: 16 AM EST Body Mass Index 30.43 02/28/2019 10:16 AM EST Plan of Treatment Health Maintenance Due Date Last Done Comments DEPRESSION SCREENING 1970 HEPATITIS C SCREENING 1976 HIV ONE-TIME SCREENING (18-65 YEARS) 1976 SCREENING FOR DIABETES 1993 COLOGUARD 11/27/2003 COLONOSCOPY 11/27/2003 COLORECTAL CANCER SCREENING 11/27/2003 FIT TEST 11/27/2003 FOBT 11/27/2003 SIGMOIDOSCOPY 11/27/2003 VIRTUAL COLONOSCOPY 11/27/2003 ZOSTER VACCINES (1 of 2) 2008 PNEUMOCOCCAL VACCINES (50+ years) (2 of 2 - PCV) 12/13/2012 12/14/2011 COVID-19 VACCINE ( season) 2023 MAMMOGRAM 04/09/2024 04/09/2022, 03/19, 02/28/2019, Additional history exists TSH LEVEL 11/14/2024 11/15/2023, 09/17, 04/18/2021, Additional history exists LIPID PANEL 05/20/2025 05/20/2020 Adult Td,Tdap Booster 01/26/2026 01/27/2016 RSV VACCINE (1 - 1-dose 75+ series) 2033 OSTEOPOROSIS SCREENING INITIAL (ONE-TIME) Completed 04/09/2022 SMOKING STATUS SCREENING (Once After 26 Yrs) Completed 04/12/2023 HEPATITIS A VACCINES Aged Out No long er eligible based on patient's age to complete this topic HIB VACCINES Aged Out No longer eligi ble based on patient's age to complete this topic MENINGOCOCCAL VACCINES (ACWY) Aged Out No longer eligible based on patient's age to complete this topic MENINGOCOCCAL VACCINES (B) Aged Out N o longer eligible based on patient's age to complete this topic Medical Devices Not on file Procedures Procedure Name Priority Date/Time Associated Diagnosis Comments TSH Routine 11/15/2023 2:27 PM EDT Acquired hypothyroidism from Last 3 Months or Most Recently Relevant to Health Maintenance Results * TSH (11/15/2023 2:27 PM EDT) Blood Dionicio Palmer DO LAB BLOOD ORDERABLES Final Resul t [facility] [address] [place], [place] [id number] from Last 3 Months or Most Recently Relevant to Health Maintenance Insurance MEDICARE PART A & [facility] [place] [id number] [facility] RE[facility] MEDICARE PART A & B [facility] MEDICARE PART A & B Member Subscriber Plan / Payer (Ef fective 2023-) Name:Riccardo Ayalan Member ID:[id number] Relation to Subscriber:Self Name:Mag Ayala Subscriber ID:[id number] Payer ID:[id number] Group ID:Not on file Type:Medicare Address: [place] [address] MEDICARE REPLACEMENT YARI CASTRO [id number] MEDICARE PART A & B MEDICARE REPLACEMENT [facility] Care Teams Rag Baler Relationship Specialty Start Date End Date Name, MD Gregg [address] [place] [address] PCP - General Geriatric Psychiatry 03/15/18 Additional Source Comments The information contained in this document represents components of the legal health record. It is not the complete legal health record.[facility]
--- OUTSIDE RECORDS SUMMARY | 2024-09-26 15:09 | XMS_ITS | Encounter Summary ---
Author Organization [employer] Address [address] [place] [address] Care Team Providers Care Maintenance Carpenter Name Role Phone Name, Gregg DIAMOND Primary Care Provider [phone] Reason for Visit * Reason Comments Med Refill Encounter Details Date Type Department Care Team ([facility] st Contact Info) Description 02/14/2024 Refill [facility] [address] [place] [address] Name, MD Gregg [address] [place] [address] Social History Tobacco Use Types Packs/Day Years [...] Description 10/18/2024 2:45 PM EDT Office Visit [facility] [address] [place] [address] Name, MD Gregg [address] [place] [address] 10/19/2024 9:00 AM EDT Office Visit [facility] [address] [place] [address] Ayan Calvin, DMD [address] [place] [address] documented as of this encounter Visit Diagnoses Not on filedocumented in this encounter Additional Health Concerns Assessment Noted Time PHQ-9 Depression Total Score: 0 09/01/19 24 10:42 AM EDT documented as of this encounter Care Teams Maintenance Carpenter Relationship Specialty Start Date End Date NameGregg MD [address] [place] [id number] PCP - General Family Medicine 04/16/15 [facility] 05/23/24 documented as of this encounter
== END 2024-09-26 14:13 | disposition home or self-care (01) ==
LOC: HO.HHCX 14:12
PROVIDERS: PCP Nurse Practitioner Family; Visit Provider Nurse Practitioner Family
DX: M25.512 Pain in left shoulder (principal)
CPT/HCPCS: 73000

== ENCOUNTER → 2024-09-26 14:19 | Outpatient (BNV) | payer OTHER, SELFPAY | PROVIDERS: PCP Nurse Practitioner Family; Visit Provider Radiology Diagnostic Radiology | DX: M25.512 Pain in left shoulder (principal) | CPT/HCPCS: 73000 ==

== ENCOUNTER 2024-10-10 06:08 | Outpatient (REF) | payer OTHER, SELFPAY ==
--- OUTSIDE RECORDS SUMMARY | 2024-10-10 06:11 | XMS_ITS | Encounter Summary ---
Author Organization [employer] Address [address] [place] [address] Care Team Providers Care Heat Engineering Teacher Name Role Phone Name, Gregg DIAMOND Primary Care Provider [phone] Reason for Visit * Reason Comments Med Refill Encounter Details Date Type Department Care Team ([facility] st Contact Info) Description 11/16/2023 Refill [facility] [address] [place] [address] Yennifer Ramirez MD [address] [place] [address] Flu-like symptoms Social History Tobacco Use Types [...] Description 10/18/2024 2:45 PM EDT Office Visit [facility] [address] [place] [phone] NameGregg MD [address] [place] [address] 10/19/2024 9:00 AM EDT Office Visit [facility] [address] [place] [address] yAan Calvin, DMD [address] [place] [address] documented as of this encounter Visit Diagnoses Diagnosis Flu-like symptoms documented in this encounter Additional Health Concerns Assessment Noted Time PHQ-9 Depression Total Score: 0 09/01/19 24 10:42 AM EDT documented as of this encounter Care Teams Heat Engineering Teacher Relationship Specialty Start Date End Date NameGregg MD [address] [place] [phone] PCP - General Family Medicine 04/16/15 [facility] 05/23/24 documented as of this encounter
--- OUTSIDE RECORDS SUMMARY | 2024-10-10 06:11 | XMS_ITS | Clinical Summary ---
Author Organization [employer] Address [address] [place] [address] Care Team Providers Care Maintenance Representative Name Role Phone Name, Gregg DIAMOND Primary Care Provider [phone] Allergies Active Allergy Reactions Criticality Noted Date Comments Nalbuphine Anaphylaxis,Shortness of breath High 07/17 Tramadol Itching,Dizziness 06/09/2024 Medications albuterol 108 (90 Base) MCG/ACT inhaler Inhale 2 puffs every 4 (four) hours if needed. Active chlorhexidine (Peridex) 0.12 % solution Place 15 mL into mouth between cheek and gum every 12 (twelve) hours. Active cyclobenzaprine (Flexeril) 10 MG tablet Active levothyroxine (Synthroid, Levoxyl) 100 MCG tablet Take 1 tablet by mouth at bed time. Active midodrine (Proamatine) 10 MG tablet Take 1 tablet by mouth every 12 (twelve) hours. Active perphenazine 4 MG tablet Take 1 tablet by mouth every 12 (twelve) hours. Active Transderm-Scop 1 MG/3DAYS patch 72 hour APPLY 1 PATCH [place] EVERY 3 DAYS 10 patch 023 Active Aspirin Low Dose 81 MG EC tablet Take 81 mg by mouth at bedtime. Active estazolam (Prosom) 2 MG tablet Take 2 mg by mouth at bedtime. Active estazolam (Prosom) 1 MG tablet Take 1 mg by mouth at bedtime. Active venlafaxine (Effexor) 25 MG tablet Active hydrocortisone 0.5 % cream Apply topically 2 times daily. 28 g 1 09/10/2 024 Active meclizine (Antivert) 25 MG tablet TAKE 1 TABLET BY MOUTH TWICE DAILY NEEDED 60 tablet 4 024 Active ipratropium (Atrovent) 0.06 % nasal sprayIndication s:Viral upper respiratory tract infection with cough 2 sprays each nostril bid prn rhinorrhea, stateless 15 mL 024 Active doxepin (SINEquan) 75 MG capsule Take 1 capsule by mouth at bedtime 024 Active Fluticasone-Quique meterol 250-50 MCG/ACT aerosol powder Inhale 1 puff by mouth twice daily. Rinse mouth after using. 024 Active pyridoxine (Vitamin B-6) 100 MG tabletIndicatio ns:Bariatric surgery status TAKE 2 TABLETS BY MOUTH ONCE DAILY AT NOON 180 tablet 3 025 Active hydroCHLOROthia zide 12.5 MG tablet TAKE 1 TABLET BY MOUTH EVERYDAY AT NOON 90 tablet 3 025 Active docusate sodium (Colace) 100 MG capsule TAKE 1 CAPSULE BY MOUTH EVERY DAY 90 capsule 1 025 Active cholecalciferol (Vitamin D-3) 25 MCG tabletIndicatio ns:Osteoporosis , unspecified osteoporosis type, unspecified pathological fracture presence TAKE 1 TABLET BY MOUTH EVERYDAY AT NOON 90 tablet 025 Active Zepbound 12.5 MG/0.5ML solution auto-injectorIn dications:Obesi ty (BMI 30-39.9) INJECT ONE PEN (=12.5MG) SUBCUTANEOUSLY ONCE A WEEK DIRECTED 2 mL 1 025 Active gabapentin (Neurontin) 100 MG capsule Take 1 capsule (100 mg) by mouth every 8 (eight) hours. 025 Active omeprazole (PriLOSEC) [address] capsule TAKE 1 CAPSULE BY MOUTH EVERY MORNING BEFORE MEALS DO NOT BREAK, CRUSH, DISSOLVE OR CHEW 90 capsule 3 025 Active magnesium oxide (Mag-Ox) 400 MG tabletIndicatio ns:Osteoporosis , unspecified osteoporosis type, unspecified pathological fracture presence TAKE 1 TABLET BY MOUTH EVERYDAY AT NOON WITH FOOD 90 tablet 1 025 Active Lidocaine (Lidocaine Pain Relief) 4 % patch APPLY 1 PATCH TO AFFECTED AREA(S) EVERY DAY 30 patch 3 025 Active Tirzepatide-Eddie ght Management (Zepbound) 15 MG/0.5ML solution auto-injector Inject 0.5 mL (15 mg) under the skin 1 (one) time per week. INJECT ONE PEN (=15 MG) SUBCUTANEOUSLY ONCE A WEEK 2 mL 3 025 Active alendronate (Fosamax) 70 MG tabletIndicatio ns:Osteoporosis , unspecified osteoporosis type, unspecified pathological fracture presence take 1 tablet by mouth once a week with 6 to 8 oz of water 30 min before first food of day. do not lie down for 30 minutes 12 tablet 025 Active omeprazole (PriLOSEC) [address] capsule TAKE 1 CAPSULE BY MOUTH EVERY MORNING BEFORE BREAKFAST. DO NOT BREAK, CRUSH, DISSOLVE OR CHEW 90 capsule 3 024 2024 Discontinued magnesium oxide (Mag-Ox) 400 MG tabletIndicatio ns:Osteoporosis , unspecified osteoporosis type, unspecified pathological fracture presence TAKE 1 TABLET BY MOUTH AT NOON WITH FOOD 90 tablet 1 025 2024 Discontinued Lidocaine (HM Lidocaine Patch) 4 % patch Apply once a day to affected area of the low back 30 patch 3 025 2024 Discontinued alendronate (Fosamax) 70 MG tabletIndicatio ns:Osteoporosis , unspecified osteoporosis type, unspecified pathological fracture presence take 1 tablet by mouth once a week with 6 to 8 oz of water 30 min before first food of day. do not lie down for 30 minutes 12 tablet 025 2024 Discontinued Active Problems Problem Noted Date Diagnosed Date [...] is already in the process of seeing [facility] Plan: Increase fluids, pain [...] range. Recent lab work not available contacted [facility] for results. Will renew medications [...] I will evaluate for congenital adrenal hyperplasia, Humboldt syndrome, polycystic ovarian syndrome although that seems [...] Encounters Date Type Department Care Team Description 09/28/2024 Results Follow-Up [facility] [address] [place] [address] Maura Taylor, BRIAN XR Clavicle Left 09/27/2024 Refill [facility] [address] [place] [address] Gregg Gandhi MD Osteoporosis, unspecified osteoporosis type, unspecified pathological fracture presence 09/26/2024 1:30 PM EDT Office Visit [facility] [address] [place] [phone] Nicole Dai NP Acute pain of left shoulder (Primary Dx) 09/26/2024 Travel 09/25/2024 Refill [facility] [address] [place] [address] Gregg Gandhi MD 09/25/2024 Telephone [facility] [address] [place] [address] Gregg Gandhi MD Nurse Triage 09/22/2024 Refill [facility] [address] [place] [phone] Gregg Gandhi MD 09/20/2024 Refill [facility] [address] [place] [phone] Gregg Gandhi MD Osteoporosis, unspecified osteoporosis type, unspecified pathological fracture presence 09/04/2024 Telephone [facility] [address] [place] [phone] Gregg Gandhi MD Medication Question 09/01/2024 8:00 AM EDT Office Visit [facility] [address] [place] [address] Ayan Calvin, RAMIREZ 09/01/2024 Telephone [facility] [address] [place] [address] Gregg Gandhi MD Results 08/31/2024 Telephone [facility] [address] [place] [address] Ayan Calvin, RAMIREZ Calvin case back from lab?? 08/29/2024 Orders Only GENERIC EXTERNAL DATA DEPARTMENT Provider, Generic External Data 08/29/[address] [address] Gregg Gandhi MD 08/28/2024 3:45 PM EDT Office Visit [address] [address] Gregg Gandhi MD Class 1 obesity (Primary Dx); Acquired hypothyroidism; Weight gain; Skin cyst; Chronic bilateral low back pain, unspecified whether sciatica present 08/28/2024 Travel 08/25/[address] [address] Xochitl Rahman [place] CHARTPREP 08/23/[address] [address] Joann Angel NP Obesity (BMI 30-39.9) 08/16/[address] [address] Gregg Gandhi MD Durable Medical Equipment; Communication (Patient walked in requesting new meds for pain, current pain medication she is in are not working or helping with pain, per patient she is getting shots at home by a nurse when she has chronic pain which are ( Torador) she is requesting for PCP to help her pain get better since current medication are not working and those shots are. Message will be forward to blue team nurses, pt verbally agree.) 08/03/2024 Orders Only GENERIC EXTERNAL DATA DEPARTMENT Provider, Generic External Data 08/01/2024 9:30 AM EDT Office Visit [facility] [address] [place] [address] Ayan Calvin DMD 07/26/[address] [address] Sweta Giraldo [place] colleen recall 07/26/2024 Orders Only [address] [address] Joann Angel NP Obesity (BMI 30-39.9) (Primary Dx) 07/26/2024 Refill [facility] [address] [place] [phone] Gregg Gandhi MD 07/26/2024 Refill [facility] [address] [place] [address] Gregg Gandhi MD Osteoporosis, unspecified osteoporosis type, unspecified pathological fracture presence 07/25/2024 Telephone [facility] [address] [place] [phone] Gregg Gandhi MD Medication Question 07/17/2024 11:30 AM EDT Office Visit [facility] [address] [place] [phone] Gregg Gandhi MD Obesity (BMI 30-39.9) (Primary Dx); Chronic bilateral low back pain, unspecified whether sciatica present; Other secondary osteoarthritis of left knee 07/17/2024 Travel 07/14/[address] [address] Sweta Giraldo MA chart prep from Last 3 Months Immunizations Immunization Administration Dates Next Due Influenza injectable quadriv [...] Answer Date Recorded Patient Health Questionnaire-9 Score 1 07/17/2024 Patient Health Questionnaire-9 Score 1 07/17/2024 Last PHQ-9: Questionnaire Data Not on file 0 07/17/2024 Housing Stability Answer Date Recorded What is [...] Answer Date Recorded Patient Health Questionnaire-2 Score 1 07/17/2024 Internet Access Answer Date Recorded Internet Access Q1 Yes 09/01/2024 Internet Access Q2 Not on file 09/01/2024 Comments Unknown Sex and Gender Information Value Date Recorded Sex Assigned at Female 12/15/2021 10:22 AM EDT Legal Sex Female 10:22 AM EDT Gender Identity Female 12/15/2021 10:22 AM EDT Sexual Orientation Straight 12/15/2021 10 :22 AM EDT Last Filed Vital Signs Vital Sign Reading Time Taken Comments Blood Pressure 158/100 09/26/2024 1:33 PM EDT Pulse 94 09/26/2024 1:33 PM EDT Temperature 36.7 C (98 F) 09/26/2024 1:33 PM EDT Respiratory Rate 18 09/26/2024 1:33 PM EDT Oxygen Saturation 98% 09/26/2024 1:33 PM EDT Inhaled Oxygen Concentration - - Weight 81.6 kg (180 lb) 09/26/2024 1:33 PM EDT Height 160 cm (5' 3 ) 09/26/2024 1:33 PM EDT Body Mass Index 31.89 09/26/2024 1:33 PM EDT Plan of Treatment Upcoming Encounters Date Type Department Care Team (Late st Contact Info) Description 10/18/2024 2:45 PM EDT Office Visit [facility] [address] [place] [address] Name, MD Gregg [address] [place] [address] 10/19/2024 9:00 AM EDT Office Visit [facility] [address] [place] [address] Ayan Calvin, RAMIREZ [address] [place] [address] Health Maintenance Due Date Last Done Comments CT Colonography 1960 FIT DNA/Cologuard 1960 FIT 1960 FOBT 1960 Sigmoidoscopy 1960 Hepatitis C Screening 1976 RSV Patients and Patients Aged 60 years or older (1 - Risk 60-74 years 1-dose series) 2018 COVID-19 Vaccine ( season) 2023 11/17/2022, 12/25/2021, 12/23/2020, Additional history exists Dental Oral Exam 03/03/2024 08/31/2023 Dental Prophylaxis 03/03/2024 08/31/2023 Dental X-Ray: Bitewings 08/31/2024 08/31/2023, 08/01 Influenza Vaccine (#1) 2024 , 11/05/2022, 12/01/2021, Additional history exists Mammogram 04/19/2025 04/20/2023, 03/19, 04/09/2022, Additional history exists Lipid Panel 05/20/2025 05/20/2020 Depression Screening 07/17/2025 07/17/2024, 07/18/19 25 Colonoscopy 08/08/2025 08/08/2020 Colorectal Cancer Screening 08/08/2025 SDOH Screening 08/28/2025 08/28/2024 Alcohol/Substance Use Screening 09/26/2025 09/26/2024 Tobacco Screening 09/26/2025 09/26/2024 DTaP/Tdap/Td Vaccines (2 - Td or Tdap) 01/26/2026 01/27/2016 Dental X-Ray: Full Mouth 08/31/2026 08/31/2023 Zoster Vaccines Completed 12/22/2021, 10/21/2021 Pneumococcal Vaccine: 50+ Years Completed 10/26/2023, 12/14/2011 [...] patient's age to complete this topic Meningococcal B Vaccine Aged Out No l onger eligible based on patient's age to complete [...] Name Priority Date/Time Associated Diagnosis Comments XR CLAVICLE LEFT Routine 09/26/2024 2:20 PM EDT Acute pain of left shoulder NO CHARGE VISIT Routine 09/01/2024 8:00 AM EDT COMPREHENSIVE METABOLIC PANEL Routine 08/29/2024 8:26 AM EDT CBC WITH AUTO DIFFERENTIAL Routine 08/29/2024 8:26 AM EDT TSH W/REFLEX TO FT4 Routine 08/29/2024 8 :26 AM EDT Weight gain CYTOPATH-CELL ENHANCED Routine 5:52 PM EDT NO CHARGE PROCEDURE Routine 08/01/2024 9 :30 AM EDT Full PROPHYLAXIS - ADULT Routine 08/31/2023 1:00 [...] Relevant to Health Maintenance Results * XR Clavicle Left (09/26/2024 2:20 PM EDT) Anatomical Region Laterality Modality Body, Clavicle Left Radiographic Afsaneh ging 09/26/2024 2:20 PM EDT Narrative 09/26/2024 3:29 [place] [address] XRay Report Signed Patient: Mag Ayala MR#: [id number] 4 : 1960 Acct:[id number] Age/Sex: 63 / F ADM Date: 09/26/24 Loc: HO.HHCX Attending Dr: Nicole Dai [employer]INNER [employer]AYER Ordering Physician: Nicole Dai NP Date of Service: 09/26/24 Procedure(s): XR clavicle LT Accession Number(s): [id number] cc: Nicole Dai [employer]IN[employer]AYER EXAMINATION: XR CLAVICLE LEFT HISTORY: pain COMPARISON: There are no prior studies available for comparison. FINDINGS: Two views of the left clavicle are submitted. Osseous mineralization is normal. There is no fracture or dislocation. There is mild to moderate degenerative change of the AC joint. The soft tissues are unremarkable. XR/XR clavicle LT IMPRESSION: No evidence of fracture of the left clavicle. Electronically signed by: Darren Peralta MD 09/26/2024 03:26 PM EDT RP Dictated By: Darren Peralta MD Signed By: <Electronically signed by Darren Peralta MD in OV> 09/26/24 1526 DD/ 1420 TD/TT: 09/26/24 1450 Employment Appeals Examiner: Procedure Note Donotuseinterpreter, Image - 09/26/2024 [place] [address] XRay Report Signed Patient: Eulalia Ayala#: [id number] 4 : 9Acct:[id number] Age/Sex: 63 / FADM Date: 09/26/24 Loc: HO.HHCX Attending Dr: Nicole Dai [employer]IN[employer]ER Ordering Physician: Nicole Dai NP Date of Service: 09/26/24 Procedure(s): XR clavicle LT Accession Number(s): [id number] cc: Nicole Dai [employer]INNER SPR[employer]ER EXAMINATION: XR CLAVICLE LEFT HISTORY: pain COMPARISON: There are no prior studies available for comparison. FINDINGS: Two views of the left clavicle are submitted. Osseous mineralization is normal. There is no fracture or dislocation. There is mild to moderate degenerative change of the AC joint. The soft tissues are unremarkable. XR/XR clavicle LT IMPRESSION: No evidence of fracture of the left clavicle. Electronically signed by: Darren Peralta MD 09/26/2024 03:26 PM EDT RP Dictated By: Darren Peralta MD Signed By: <Electronically signed by Darren Peralta MD in OV> 09/26/24 1526 DD/ 1420 TD/TT: 09/26/24 1450 Employment Appeals Examiner: us Nicole Dai [employer]INNER [employer]AYER IMG XR PROCEDURES Final Result * TSH W/Reflex to FT4 (08/29/2024 8:26 AM EDT) TSH reflex Free T4 2.05 0.32 - 4.0 uIU/mL [facility] Blood Venous blood specimen / Unknown 08/29/2024 8:26 AM EDT 08/29/2024 11:06 AM EDT us Gregg Name MD LAB BLOOD ORDERABLES Final Resul t [facility] [address], [place] [phone] * (ABNORMAL) CBC auto differential (08/29/2024 8:26 AM EDT) White Blood Count 6.3 4.8 - 10.8 X10*3/uL [facility] Red Blood Count 4.57 4.20 - 5.50 X10*6/uL [facility] Hemoglobin 12.3 12.0 - 16.0 g/dl [facility] Hematocrit 39.6 37.0 - 47.0 % [facility] Mean Corpuscular Volume 86.7 80.0 - 98.0 fL [facility] Mean Corpuscular Hemoglobin 26.9(L) 27.0 - 33.0 pg [facility] Mean Corpuscular HGB Conc 31.1 31.0 - 35.0 g/dl [facility] Red Cell Distribution Width 16.4(H) 11.0 - 16.0 % [facility] Platelet Count 320 160 - 400 X10*3/uL [facility] Mean Platelet Volume 10.2 9.4 - 12.3 fL [facility] Neutrophils Percent Auto 57.0 45 - 73 % [facility] Imm Gran Pct Auto 0.3 0.0 - 0.4 % [facility] Lymphocytes Percent Auto 29.4 20 - 40 % [facility] Monocytes Percent Auto 10.3 2 - 11 % [facility] Eosinophils Percent Auto 2.4 0 - 4 % [facility] Basophils Percent Auto 0.6 0 - 2 % [facility] NRBC Pct Auto 0.0 0.0 - 0.2 /100WBC [facility] Neutrophils Absolute Auto 3.6 2.0 - 8.3 x10*3/uL [facility] Imm Gran Abs Auto 0.02 0.00 - 0.03 X10*3/uL [facility] Lymphocytes Absolute Auto 1.9 1.2 - 4.9 X10*3/uL [facility] Monocytes Absolute Auto 0.7 0.1 - 1.2 X10*3/uL [facility] Eosinophils Absolute Auto 0.2 0.0 - 0.4 X10*3/uL [facility] Basophils Absolute Auto 0.0 0.0 - 0.2 X10*3/uL [facility] NRBC Abs Auto 0.000 0.0 - 0.012 X10*3/uL [facility] 08/29/2024 8:26 AM EDT 08/29/2024 11:06 AM EDT us Generic External Data Provider LAB BLOOD ORDERAB LES Final Result [facility] [address] [place] [phone] * (ABNORMAL) Comprehensive Metabolic Panel (08/29/2024 8:26 AM EDT) Sodium 142 135 - 145 mmol/L [facility] Potassium 4.4 3.3 - 5.1 mmol/L [facility] Chloride 105 96 - 108 mmol/L [facility] Carbon Dioxide 30(H) 22 - 29 mmol/L [facility] Anion Gap 11(L) 12 - 20 [facility] Urea Nitrogen (BUN) 17(H) 9 - 16 mg/dL [facility] Creatinine, Serum 0.86 0.5 - 1.4 mg/dL [facility] Estimated Glomerular Filt Rate >60 [facility] Comment:Chronic Kidney Disea se: Estimated GFR < 60 mL/min/1.79k0Svyzpo Kidney Disease: Estimated GFR < 15 mL/min/1.73m2 Glucose 88 60 - 115 mg/dL [facility] Calcium 8.7 8.4 - 10.2 mg/dL [facility] Bilirubin, Total 0.3 0.0 - 1.0 mg/dL [facility] Aspartate Amino Transferase 27 5 - 31 U/L [facility] Alanine Aminotransferase 16 0 - 31 U/L [facility] Total Protein 6.7 6.5 - 8.0 g/dL [facility] Albumin Level 3.7 3.5 - 5.0 g/dL [facility] Alkaline Phosphatase 74 39 - 117 U/L [facility] 08/29/2024 8:26 AM EDT 08/29/2024 11:06 AM EDT us Generic External Data Provider LAB BLOOD ORDERAB LES Final Result [facility] [address] [place] [phone] * Cytopath-cell enhanced (08/03/2024 5:52 PM EDT) 08/03/2024 5:52 PM EDT 08/04/2024 9:30 AM EDT Narrative [facility] - 08/05/2024 5:23 PM EDT ----- ------- Name: Mag Ayala Age/Sex: 63/F : 1960 Unit#: [id number] Attend Dr: Faina Gomes MD Re08/03/24 Status: DEP [facility] Dis[facility] ----- ------- SPEC : [id number] RECD: 08/04/24 STATUS: JOHN SALGUERO NUM: [id number] CHAITANYA: 08/03/[address] [facility] DR: Faina Gomes MD ENTERED: 08/04/24 SP TYPE: Cytology OT DR: Gregg Gandhi MD ORDERED: Cyto-enhanced Diagnosis Urine: Negative for high-grade urothelial carcinoma. Comment: Examination of a monolayer preparation slide shows scattered benign urothelial cells and benign squamous cells, acute scattered inflammatory cells, crystals, and occasional red blood cells. Clinical History Microscopic hematuria Material Received Urine Gross Description Received is 17 cc of clear yellow fluid from which a ThinPrep slide is prepared. IHC S/NG Disclaimer NOTE: Unless otherwise stated, all tissue is formalin-fixed and paraffin-embedded. Some or all of the immunohistochemical tests reported herein may have been developed and their performance characteristics determined by [facility]. They have not been cleared or approved by the U.S. Food and Drug Administration (FDA). However, the FDA has determined that such clearance or approval is not necessary. This laboratory is certified under the Clinical Laboratory Improvement Amendments of 1988 (CLIA) as qualified to perform high complexity clinical laboratory testing. Copies To: Faina Gomes MD [facility] [address] [place] [address] [address]. [address] [place] [address] [email or web address] Name,Gregg DIAMOND [address] [place] [address] CONTINUED ON NEXT PAGE ----- ------- Name: Mag Ayala Age/Sex: 63/F : 1960 Unit#: [id number] Attend Dr: Faina Gomes MD Re08/03/24 Status: DEP REF Location: [facility] Disch: ----- ------- SPEC : [id number] RECD: 08/04/24 STATUS: JOHN SALGUERO NUM: [id number] CHAITANYA: 08/03/24-[address] [facility] DR: Faina Gomes MD ENTERED: 08/04/24-1026 SP TYPE: Cytology OTHR DR: Gregg Gandhi MD ORDERED: Cyto-enhanced ----- ------- Signed (signature on file) Alexandria Monge 08/05/24 1723 ----- ------- END OF REPORT us Generic External Data Provider LAB CYTOLOGY RAMONA ABDUL Final Result [facility] [address] [place] [phone] [phone] * BI Mammogram Screening Tomosynthesis Bilateral (04/20/2023 12:05 PM EST) Anatomical Region Laterality Modality Breast Bilateral Mammography 04/20/2023 12:0 5 PM EST Narrative 05/05/2023 8:29 AM EDT [facility] [address] [place] [address] Mammography Report Signed Patient: Mag Ayala MR#: [id number] 4 : 1960 Acct:[id number] Age/Sex: 62 / F ADM Date: 04/20/23 [facility] Dr: Gregg Gandhi MD Ordering Physician: Gregg Gandhi MD Results: 1Negative Date of Service: 04/20/23 Follow Up: 1 Year From Orig inal Mammogram Procedure(s): MM tomosynthesis screening BI Accession Number(s): [id number] cc: Gregg Gandhi MD EXAMINATION: MM SCREENING [...] in OV> 05/05/23 0825 DD/ 1205 TD/TT: Employment Appeals Examiner: Procedure Note Donotuseinterpreter, Image - 05/05/2023 [facility] [address] [place] [address] Mammography Report Signed Patient: Riccardo AyalanMR#: [id number] 4 : 9Acct:[id number] Age/Sex: 62 / FADM Date: 04/20/23 Loc: HO.MAMMO Attending Dr: Gregg Gandhi MD Ordering Physician: Gregg Gandhi MDResults: 1Negative Date of Service: 04/20/23Follow Up: 1 Year From Orig inal Mammogram Procedure(s): MM tomosynthesis screening BI Accession Number(s): [id number] cc: Gregg Gandhi MD EXAMINATION: MM SCREENING [...] in OV> 05/05/23 0825 DD/ 1205 TD/TT: Employment Appeals Examiner: us Escobedo Name IMG BI PROCEDURES Final [...] [facility] Comment: Reference range: <100 Desirable range <100 mg/dL for primary prevention; <70 mg/dL for patients with CHD or diabetic patients with > or = 2 CHD risk factors. LDL-C is now calculated using the Darek-Haines calculation, which is a validated novel method providing better accuracy than the Friedewald equation in the estimation of LDL-C. Darek SS et al. BOO. 2013;310(19): 5590-6876 (http://education.[employer].com/faq/XOU662) Non-HDL Cholesterol 125 <130 mg/dL (calc) [facility] Comment: For patients with diabetes plus 1 major ASCVD risk factor, treating to a non-HDL-C goal of <100 mg/dL (LDL-C of <70 mg/dL) is considered a therapeutic option. Triglycerides 80 <150 mg/dL [facility] 05/20/2020 9:32 AM EDT us Gregg Gandhi MD LAB BLOOD ORDERABLES Final Resul t [facility] [address] from Last 3 Months or Most Recently Relevant to Health Maintenance Insurance [facility] STANDARD [facility] CUSTODIAL OPTIONS (O D-SNP) D[facility]AL [facility] Care Teams Maintenance Representative Relationship Specialty Start Date End Date Name, MD Gregg [address] [place] [address] PCP - General Family Medicine 04/16/15 [facility] 05/23/24
--- OUTSIDE RECORDS SUMMARY | 2024-10-10 06:11 | XMS_ITS | Encounter Summary ---
Author Organization [employer] Address [address] [facility] 7t [place] [address] Care Team Providers Care Shop Foreman Name Role Phone Name, Gregg DIAMOND Primary Care Provider [phone] Reason for Visit * Reason Onset Date Comments PT1 02/25/2023 Encounter Details Date Type Department Care Team ([facility] st Contact Info) Description 02/25/2023 Telephone [facility] MEDICINE [address] [place] [address] Name, MD Gregg [address] [place] [address] PT1 Social History Tobacco Use Types Packs/Day [...] t he electric, gas, oil or water [employer] threatened to shut off services in your [...] - valid through 06/2023 [facility] neurology - [id number] authorized Dr Chakraborty - [id number] pending [facility] Gen Surg - [id number] authorized [facility] - [id number] authorized Renal & Trans - [id number] authorized ENT - [id number] pending [facility] medical office - [id number] pending * Telephone Encounter - Cameron Su - 02/25/2023 4:29 PM EST PT1 needed Date: N/A Time: N/A Visits: 2 or 3 monthly Address: [address] [facility] Facility: [facility] Cardiovascular Wheel Chair: No Pool Hall Inspector Needed: No PT1 needed Date: N/A Time: N/A Visits: 2 or 3 Monthly Address: [address] [facility] Facility: [facility] Neurology Wheel No Pool Hall Inspector Needed: No PT1 needed Date: N/A Time: N/A Visits: 2 or 3 Monthly Address: [address] [facility] Facility: Dr Chakraborty Wheel Chair: No Pool Hall Inspector Needed: No PT1 needed Date: N/A Time: N/A Visits: 2 or 3 Monthly Address: [address] [place] [address] dr LambertRafy [place] Facility: [facility] General Surgery Wheel Chair: No Pool Hall Inspector Needed: No PT1 needed Date: N/A Time: N/A Visits: 2 or 3 Monthly Address: [address] [place] [address] Facility: [facility] Wheel Chair: No Pool Hall Inspector Needed: No PT1 needed Date: N/A Time: N/A Visits: 2 or 3 monthly Address: [address] [facility] Facility: [facility] Wheel Chair: No Pool Hall Inspector Needed: No PT1 needed Date: N/A Time: N/A Visits: 2 or 3 monthly [facility] [address] [facility] Wheel Chair: No Pool Hall Inspector Needed: No PT1 needed Date: N/A Time: N/A Visits: 2 or 3 Monthly Address: [address] [facility] [address] Cesia DESOUZA Facility: [facility] medical Office Wheel Chair: No Pool Hall Inspector Needed: No PT1 needed Date: N/A Time: N/A Visits: 2 or 3 Monthly Address: [address] [place] [address] Facility: [facility] Wheel Chair: No Pool Hall Inspector Needed: No documented in this encounter Plan of Treatment Upcoming Encounters Date Type Department Care Team (Late st Contact Info) Description 10/18/2024 2:45 PM EDT Office Visit [facility] MEDICINE [address] [place] [address] Name, MD Gregg [address] [place] [address] 10/19/2024 9:00 AM EDT Office Visit [facility] ADULT DENTAL [address] [place] [address] Ayan Calvin, DMD [address] [place] [address] documented as of this encounter Visit Diagnoses Not on filedocumented in this encounter Additional Health Concerns Assessment Noted Time PHQ-9 Depression Total Score: 7 03/04/19 23 9:17 AM EST documented as of this encounter Care Teams Shop Foreman Relationship Specialty Start Date End Date Name, MD Gregg [address] [place] [address] PCP - General Family Medicine 04/16/15 [facility] 05/23/24 documented as of this encounter
--- OUTSIDE RECORDS SUMMARY | 2024-10-10 06:11 | XMS_ITS | Encounter Summary ---
Author Organization [employer] Address [address] [facility] [address] 7t [place] [address] Care Team Providers Care Palliative Nurse Name Role Phone Name, Gregg DIAMOND Primary Care Provider [phone] Reason for Visit * Reason Onset Date Comments Nurse Triage 11/27/2022 Encounter Details Date Type Department Care Team ([facility] st Contact Info) Description 11/27/2022 Telephone [facility] MEDICINE [address] [place] [address] Name, MD Gregg [address] [place] [address] Nurse Triage Social History Tobacco Use Types [...] t he electric, gas, oil or water [employer] threatened to shut off services in your [...] caller accepted this outcome Does not need bilingual interpreter . documented in this encounter Plan of Treatment Upcoming Encounters Date Type Department Care Team (Late st Contact Info) Description 10/18/2024 2:45 PM EDT Office Visit [facility] MEDICINE [address] [place] [address] Name, MD Gregg [address] [place] [address] 10/19/2024 9:00 AM EDT Office Visit [facility] ADULT DENTAL [address] [place] [address] Ayan Calvin, DMD [address] [place] [address] documented as of this encounter Visit Diagnoses Not on filedocumented in this encounter Additional Health Concerns Assessment Noted Time PHQ-9 Depression Total Score: 7 03/04/19 23 9:17 AM EST documented as of this encounter Care Teams Palliative Nurse Relationship Specialty Start Date End Date NameGregg MD [address] [place] [address] PCP - General Family Medicine 04/16/15 [facility] 05/23/24 documented as of this encounter
--- OUTSIDE RECORDS SUMMARY | 2024-10-10 06:11 | XMS_ITS | Encounter Summary ---
Author Organization [facility] Address [address] [facility] [address] [place] [address] Encounters * CPT with Medical [facility] at [employer] on 2024-09-16 { reasonForRequest : Pt reporting lower back pain>knee pain>stenosis in spinal cord , patientReports : , denies :[ Leon Flash, circumferential leon , Leon reported with black tissue to the area ,&q uot;Open skin area after a fall with uncontrolled bleeding , Abscess/infection with streaking noted, presence of fever or without ], chiefComplaints : Back Pain, Extremity Pain , pmh : Anxiety Disorder, Asthma, Chronic Pain, Depression, Osteoporosis, Hypothyroidism, Gastroesophageal Reflux Disease (GERD), Sleep Apnea, Inflammatory Bowel Disease (Crohn's Disease, Ulcerative Colitis), Cancer , allergies : Tramadol , ot herAllergies :null, painAssessment : , visitOutcome : &quot ;, additionalComments : 63 y.o female complains of Back Pain, Extremity Pain\n\nPatient calling in to place a referral.\nPatient with acute on chronic back pain, known spinal stenosis,as well as bad knees.\nPatient reports she was on gabapentin and another medication, but since she has gained 22lbs since June and it was not helping, he discontinued it.\nSkalani has also had \ gel\" put into her knees.\nToday she reports her back is in severe pain and her knees feel weak.\nSkalani cannot take IBU per her neurologist due to a tumor, she has not taken any tylenol.\nShe denies any numbness or tingling, no loss of bowel or bladder.\nPatient very tearful due to the pain.\Hudson would like to be evaluated for a toradol shot, as they have provided her much relief in the past.\n\nI p rovided information on the mobile health provider response time and advised the patient and/or caregiver to monitor reported signs and symptoms. I discussed the warning signs of when to seek emergency care. } 63 year old female chief complaint today of all over body pain, but particularly in her back right knee and mild headache. Patient has been taking Tylenol for last two days with minimal relief. Patient had a 22 pound waking with gabapentin and other medication???s for pain, relief, and so physiciantook her off most of her pain relief medication???s besides topical patches. Back was painful to pal pation everywhere knees were painful to palpation post motor sensation intact times four positive pulses in feet patient able to walk with a little bit of a stoop forward patient very tearful. Patient states she has gotten relief from Toradol in past and would like to try it again. Dr. Ricks called and agreed to 30 mg of Toradol after reviewing her kidney functions. 30 mg of Torac given left IM deltoid. Patient very thankful aw will continue to use her topical analgesic and ice and warm compresses and will follow up with her primary care about this breakthrough pain. Patient thanked us for a visit. All questions answered. Red flags on allergic reactions. Discussed potential sleep help. Patient notes she is trying to get help with her spinal stenosis and arthritis, but it is slow to find a suitable solution. IV_(FLUIDS_AND/OR_MEDICATION), MEDICATION_IM, ORAL_MEDICATION, EKG, WOUND_CARE, ORTHOSTATIC_VITAL_SIGNS Written by Medical instED on 2024-09-16
--- OUTSIDE RECORDS SUMMARY | 2024-10-10 06:11 | XMS_ITS | Encounter Summary ---
Author Organization [employer] Address [address] [facility] 7t [place] [address] Care Team Providers Care Counter Tender Name Role Phone Name, Gregg DIAMOND Primary Care Provider [phone] Reason for Visit * Reason Onset Date Comments broken tooth to hold partial 02/28/2024 Encounter Details Date Type Department Care Team ([facility] st Contact Info) Description 02/28/2024 Telephone [facility] ADULT DENTAL [address] [place] [address] Ayan Calvin, DMD [address] [place] [address] broken tooth to hold partial Social History [...] EDT Office Visit [facility] MEDICINE [address] [place] [address] Name, MD Gregg [address] [place] [address] 10/19/2024 9:00 AM EDT Office Visit [facility] ADULT DENTAL [address] [place] [address] Ayan Calvin DMD [address] [place] [address] documented as of this encounter Visit Diagnoses Not on filedocumented in this encounter Additional Health Concerns Assessment Noted Time PHQ-9 Depression Total Score: 0 09/01/19 24 10:42 AM EDT documented as of this encounter Care Teams Counter Tender Relationship Specialty Start Date End Date Name, MD Gregg [address] [place] [address] PCP - General Family Medicine 04/16/15 [facility] 05/23/24 documented as of this encounter
--- OUTSIDE RECORDS SUMMARY | 2024-10-10 06:11 | XMS_ITS | Continuity of Care Document ---
Author Name Randall Hartmann Address [address] [place] [address] Organization Unknown Address [address] [place] [address] Medications No known medications Problems No known problems
--- OUTSIDE RECORDS SUMMARY | 2024-10-10 06:11 | XMS_ITS | Continuity of Care Document ---
Author Name [facility], Medical Address [address] [place] [address] Organization Unknown Address [address] [place], [place] [id number] Medications No known medications Problems No known problems
--- OUTSIDE RECORDS SUMMARY | 2024-10-10 06:11 | XMS_ITS | Encounter Summary ---
Author Organization [employer] Address [address] [facility] [address] 7t [place] [address] Care Team Providers Care Counter Caser Name Role Phone Name, Gregg DIAMOND Primary Care Provider [phone] Reason for Visit * Reason Comments Med Refill Encounter Details Date Type Department Care Team ([facility] st Contact Info) Description 02/14/2024 Refill [facility] MEDICINE [address] [place] [address] Name, MD Gregg [address] [place] [address] Social History Tobacco Use Types Packs/Day Years [...] Description 10/18/2024 2:45 PM EDT Office Visit [facility] MEDICINE [address] [place] [address] Name, MD Gregg [address] [place] [address] 10/19/2024 9:00 AM EDT Office Visit [facility] ADULT DENTAL [address] [place] [address] Ayan Calvin, DMD [address] [place] [address] documented as of this encounter Visit Diagnoses Not on filedocumented in this encounter Additional Health Concerns Assessment Noted Time PHQ-9 Depression Total Score: 0 09/01/19 24 10:42 AM EDT documented as of this encounter Care Teams Counter Caser Relationship Specialty Start Date End Date NameGregg MD [address] [place] [address] PCP - General Family Medicine 04/16/15 [facility] 05/23/24 documented as of this encounter
--- OUTSIDE RECORDS SUMMARY | 2024-10-10 06:11 | XMS_ITS | Continuity of Care Document ---
Author Name Randall Hartmann Address [address] [place] [address] Organization Unknown Address [address] [place] [address] Medications No known medications Problems No known problems
--- OUTSIDE RECORDS SUMMARY | 2024-10-10 06:11 | XMS_ITS | Continuity of Care Document ---
Author Name [facility], Medical Address [address] [place] [address] Organization Unknown Address [address] [place] [address] Medications No known medications Problems No known problems
--- OUTSIDE RECORDS SUMMARY | 2024-10-10 06:12 | XMS_ITS | Encounter Summary ---
Author Organization [facility] Address [address] [place] [address] 7t [place] [address] Care Team Providers Care Public Safety Telecommunicator Name Role Phone Name, Gregg DIAMOND Primary Care Provider [phone] Reason for Visit * Reason Comments Med Refill Encounter Details Date Type Department Care Team ( Contact Info) Description 10/06/2022 Refill [facility] MEDICINE [address] [place] [address] [phone] Name, MD Gregg [address] [place] [address] Osteoporosis, unspecified osteoporosis type, unspecified pathological fracture [...] Description 10/18/2024 2:45 PM EDT Office Visit [facility] MEDICINE [address] [place] [address] [phone] Name, MD Gregg [address] [place] [address] [phone] 10/19/2024 9:00 AM EDT Office Visit [facility] ADULT DENTAL [address] [place] [address] Ayan Calvin DMD [address] [place] [address] documented as of this encounter Visit Diagnoses Diagnosis Osteoporosis, unspecified osteoporosis type, unspecified pathological fracture presence documented in this encounter Additional Health Concerns Assessment Noted Time PHQ-9 Depression Total Score: 7 03/04/19 23 9:17 AM EST documented as of this encounter Care Teams Public Safety Telecommunicator Relationship Specialty Start Date End Date Name, MD Gregg [address] [place] [address] PCP - General Family Medicine 04/16/15 [facility] 05/23/24 documented as of this encounter
--- OUTSIDE RECORDS SUMMARY | 2024-10-10 06:12 | XMS_ITS | Clinical Summary ---
Author Organization [facility] Address [address] [place] [address] Phone Care Team Providers Care Air Traffic Supervisor Name Role Phone Name, Gregg DIAMOND Primary Care Provider [phone] Allergies Active Allergy Reactions Criticality Noted Date [...] directed by MD Active lorcaserin 20 mg [id number]:St atus post bariatric surgery Take 20 mg [...] 02/20/19 Active calcium carb/D3/magnesium/ zinc (CALCIUM CARB-D3-MAG RUL29-SEZH) [id number] yp-bugu-xj-mg Tab Take 1 tablet by mouth. Active [...] I will evaluate for congenital adrenal hyperplasia, [place] syndrome, polycystic ovarian syndrome although that seems [...] or more in. Also I discussed the [employer] pal kamla so that she can [...] range. Recent lab work not available contacted [facility] for results. Will renew medications at [...] reference range. She does have follow-up with lens inserter and hopefully this will yield some information. [...] DO LAB BLOOD ORDERABLES Final Resul t [facility] [address] [place], [place] [phone] from Last 3 Months or Most Recently Relevant to Health Maintenance Insurance MEDICARE PART A & B [facility] [place] [id number] [facility]PLACEMENT MEDICARE PART A & B [facility] MED[facility] REPL[facility] MEDICARE PART A & B Member Subscriber Plan / Payer (Ef fective 2023-) Name:Riccardo Ayalan Member ID:[id number] Relation to Subscriber:Self Name:Mag Ayala Subscriber ID:[id number] Payer ID:[id number] Group ID:Not on file Type:Medicare Address: [employer] [address] MEDICARE REPLACEMENT YARI CASTRO [address] MEDICARE PART A & B MEDICARE REPLACEMENT [facility] Care Teams Air Traffic Supervisor Relationship Specialty Start Date End Date Name, MD Gregg [address] [place] [address] PCP - General Geriatric Psychiatry 03/15/18 Additional Source Comments The information contained in this document represents components of the legal health record. It is not the complete legal health record.Loc[facility]
--- OUTSIDE RECORDS SUMMARY | 2024-10-10 06:12 | XMS_ITS | Encounter Summary ---
Author Organization [employer] Address [address] [place] [address] 7t [place] [address] Care Team Providers Care Office Mail Clerk Name Role Phone Name, Gregg DIAMOND Primary Care Provider [phone] Reason for Visit * Reason Comments Med Refill Encounter Details Date Type Department Care Team ( Contact Info) Description 10/14/2022 Refill [facility] MEDICINE [address] [place] [address] [phone] Name, MD Gregg [address] [place] [address] Osteoporosis, unspecified osteoporosis type, unspecified pathological fracture [...] Description 10/18/2024 2:45 PM EDT Office Visit [facility] MEDICINE [address] [place] [address] [phone] Name, MD Gregg [address] [place] [address] [phone] 10/19/2024 9:00 AM EDT Office Visit [facility] ADULT DENTAL [address] [place] [address] Ayan Calvin DMD [address] [place] [address] documented as of this encounter Visit Diagnoses Diagnosis Osteoporosis, unspecified osteoporosis type, unspecified pathological fracture presence documented in this encounter Additional Health Concerns Assessment Noted Time PHQ-9 Depression Total Score: 7 03/04/19 23 9:17 AM EST documented as of this encounter Care Teams Office Mail Clerk Relationship Specialty Start Date End Date Name, MD Gregg [address] [place] [address] PCP - General Family Medicine 04/16/15 [facility] 05/23/24 documented as of this encounter
--- OUTSIDE RECORDS SUMMARY | 2024-10-10 06:12 | XMS_ITS | Encounter Summary ---
Author Organization [employer] Address [address] [facility] 7t [place] [address] Care Team Providers Care Ultrasound Sonographer Name Role Phone Name, Gregg DIAMOND Primary Care Provider Reason for Visit * Reason Onset Date Comments Medication Question 07/25/2024 Encounter Details Date Type Department Care Team ([facility] Contact Info) Description 07/25/2024 Telephone [facility] MEDICINE [address] [place] [address] Name, MD Gregg [address] [place] [address] Medication Question Social History Tobacco Use Types [...] Telephone Encounter - Maura Taylor RN - 07/26/2024 10:31 AM EDT TC placed to pt regarding dosage increase for Zepbound. Advised pt per PCP note they would keep pt on current dose of Zepbound for now. Pt reports at visit with PCP they discussed a dose increase from the 10 MG to 15 MG. Pt reports they told PCP that they would not want the 15 MG as they felt it was too big of a jump. Pt reports they spoke to the pharmacy who told pt there is a 12.5 MG dose of Zep bound. Pt reports that when they spoke to PCP, the PCP was not aware of 12.5 MG dose. Pt reports they would like to be prescribed the 12.5 MG dose. Pt reports the pharmacy was going to cancel the 10 MG prescription refill and send request for the 12.5 MG dose of Zepbound. Pt requesting message be sent to PCP regarding request for dose increase from the Zepbound 10 MG/0.5ML solution auto-injector t o the 12.5 dose. Message forwarded to covering provider for review. * Telephone Encounter - Hermelindafreddy Franca - 07/25/2024 8:28 AM EDT TC from pt requesting a new script with dosage increase for Zepbound 10 MG/0.5ML solution auto-injector . Pt stated she had a apt with provider and they discussed this change. Manager Retail Sales advised her about the discussion and that they discussed to leaving it the same dosage. Pt is requesting call back. Contact pt at [phone] (amharic) documented in this encounter Plan of Treatment Upcoming Encounters Date Type Department Care Team (Late st Contact Info) Description 10/18/2024 2:45 PM EDT Office Visit [facility] MEDICINE [address] [place] [address] Name, MD Gregg [address] [place] [address] 10/19/2024 9:00 AM EDT Office Visit [facility] ADULT DENTAL [address] [place] [address] Ayan Calvin, DMD [address] [place] [address] documented as of this encounter Visit Diagnoses Not on filedocumented in this encounter Additional Health Concerns Assessment Noted Time PHQ-9 Depression Total Score: 1 07/18/19 25 11:20 AM EDT documented as of this encounter Care Teams Ultrasound Sonographer Relationship Specialty Start Date End Date NameGregg MD [address] [place] [address] PCP - General Family Medicine 04/16/15 [facility] 05/23/24 documented as of this encounter
--- OUTSIDE RECORDS SUMMARY | 2024-10-10 06:12 | XMS_ITS | Encounter Summary ---
Author Organization [employer] Address [address] [facility] 7t [place] [address] Care Team Providers Care Leather Worker Name Role Phone Name, Gregg DIAMOND Primary Care Provider [phone] Reason for Visit * Reason Onset Date Comments ER Follow-up 05/02/2024 Nurse Triage 05/02/2024 Encounter Details Date Type Department Care Team ([facility] st Contact Info) Description 05/02/2024 Telephone [facility] MEDICINE [address] [place] [address] Name, MD Gregg [address] [place] [address] ER Follow-up; Nurse Triage Social History Tobacco [...] of the rollator walker. TC placed to [facility] pharamcyregarding the fosamax. Lori states the medication [...] June Pt requesting a call from PCP. Super[employer] W[employer] Department found telehealth visit in PCP schedule. Pt [...] find out more information. TC placed to [facility] pharamcy regardingthe fosamax. Lori states the medication [...] She states that she went to the [facility] yesterday due to right leg pain and right knee isswollen. Pt. Was also having throbbing pain in left side of groin. [facility] did not find any blood clot in leg and Xray of left hip and pelvis-negative. ED is recommending referral to [facility] according to pt. Pt does not want [...] that she remembers. Pt. Needs referral to [facility]. Offered pt. Appt. Today but, pt. Only wants to speak to pcp and is requesting appt. With PCP only or call from PCP to discuss updates and needs. Please get back to pt. To let her know if any of these needs can be met Will send request to Clinical coordinators to get [facility] report from yesterday into pt. Chart. Multiple needs. * Telephone Encounter - Shubham Booth - 05/02/2024 10:20 AM EDT Patient calling to report ED visit on : Date: 05/01/2024 Hospital: [facility] Seen for: Knee pain , groin pain [...] Description 10/18/2024 2:45 PM EDT Office Visit [facility] MEDICINE [address] [place] [address] Gregg Gandhi MD [address] [place] [address] 10/19/2024 9:00 AM EDT Office Visit [facility] ADULT DENTAL [address] [place] [address] Ayan Calvin, DMD [address] [place] [address] documented as of this encounter Visit Diagnoses Not on filedocumented in this encounter Additional Health Concerns Assessment Noted Time PHQ-9 Depression Total Score: 0 09/01/19 10:42 AM EDT documented as of this encounter Care Teams Leather Worker Relationship Specialty Start Date End Date NameGregg MD [address] [place] [address] PCP - General Family Medicine 04/16/15 [facility] 05/23/24 documented as of this encounter
--- OUTSIDE RECORDS SUMMARY | 2024-10-10 06:12 | XMS_ITS | Encounter Summary ---
Author Organization [employer] Address [address] [facility] 7t [place] [address] Care Team Providers Care Review Specialist Name Role Phone Name, Gregg DIAMOND Primary Care Provider [phone] Reason for Visit * Reason Onset Date Comments PT1 07/27/2023 Encounter Details Date Type Department Care Team ([facility] st Contact Info) Description 07/27/2023 Telephone [facility] MEDICINE [address] [place] [address] Name, MD Gregg [address] [place] [address] PT1 Social History Tobacco Use Types Packs/Day [...] name: Dr. Carson Smith MD Facility Address: [address] [place] [address] [address], [facility], [address] Escort needed: Y/N: No Do you have a wheelchair: Y/N: No If yes- Manual or electric: Visits: 2-3 Next upcoming appt 08/03/23 documented in this encounter Plan of Treatment Upcoming Encounters Date Type Department Care Team (Late st Contact Info) Description 10/18/2024 2:45 PM EDT Office Visit [facility] MEDICINE [address] [place] [address] NameGregg MD [address] [place] [address] 10/19/2024 9:00 AM EDT Office Visit [facility] ADULT DENTAL [address] [place] [address] Ayan Calvin, DMD [address] [place] [address] documented as of this encounter Visit Diagnoses Not on filedocumented in this encounter Additional Health Concerns Assessment Noted Time PHQ-9 Depression Total Score: 7 03/04/19 23 9:17 AM EST documented as of this encounter Care Teams Review Specialist Relationship Specialty Start Date End Date NameGregg MD [address] [place] [address], [place] [address] PCP - General Family Medicine 04/16/15 [facility] 05/23/24 documented as of this encounter
--- OUTSIDE RECORDS SUMMARY | 2024-10-10 06:12 | XMS_ITS | Encounter Summary ---
Author Organization [employer] Address [address] [facility] 7t [place] [address] Care Team Providers Care Control Board Operator Name Role Phone Name, Gregg DIAMOND Primary Care Provider [phone] Encounter Details Date Type Department Care Team [...] Description 10/18/2024 2:45 PM EDT Office Visit [facility] MEDICINE [address] [place] [address] Name, MD Gregg [address] [place] [address] 10/19/2024 9:00 AM EDT Office Visit [facility] ADULT DENTAL [address] [place] [address] Ayan Calvin, RAMIREZ [address] [place] [address] documented as of this encounter Visit Diagnoses Not on filedocumented in this encounter Care Teams Control Board Operator Relationship Specialty Start Date End Date Name, MD Gregg [address] [place] [address] PCP - General Family Medicine 04/16/15 [facility] 05/23/24 documented as of this encounter
--- OUTSIDE RECORDS SUMMARY | 2024-10-10 06:12 | XMS_ITS | Continuity of Care Document ---
Author Name Randall Hartmann Address [address] [place] [address] Organization Unknown Address [address] [place] [address] Medications No known medications Problems No known problems
--- OUTSIDE RECORDS SUMMARY | 2024-10-10 06:12 | XMS_ITS | Encounter Summary ---
Author Organization [employer] Address [address] [facility] [address] 7t [place] [address] Care Team Providers Care Tracing Lathe Set Up Operator Name Role Phone Name, Gregg DIAMOND Primary Care Provider [phone] Reason for Visit * Reason Comments Med Refill Encounter Details Date Type Department Care Team ([facility] st Contact Info) Description 06/07/2024 Refill [facility] MEDICINE [address] [place] [address] Name, MD Gregg [address] [place] [address] Social History Tobacco Use Types Packs/Day Years [...] Description 10/18/2024 2:45 PM EDT Office Visit [facility] MEDICINE [address] [place] [address] Name, MD Gregg [address] [place] [address] 10/19/2024 9:00 AM EDT Office Visit [facility] ADULT DENTAL [address] [place] [address] Ayan Calvin, DMD [address] [place] [address] documented as of this encounter Visit Diagnoses Not on filedocumented in this encounter Additional Health Concerns Assessment Noted Time PHQ-9 Depression Total Score: 0 09/01/19 24 10:42 AM EDT documented as of this encounter Care Teams Tracing Lathe Set Up Operator Relationship Specialty Start Date End Date NameGregg MD [address] [place] [address] PCP - General Family Medicine 04/16/15 [facility] 05/23/24 documented as of this encounter
--- OUTSIDE RECORDS SUMMARY | 2024-10-10 06:12 | XMS_ITS | Encounter Summary ---
Author Organization [facility] Address [address] [facility] [place] [address] Encounters * CPT with Randall Hartmann at [employer] on 2024-08-31 { reasonForRequest : anxiety , patientReports : Anxiety ,"denies :[ Hearing voices, thoughts of suicidal or homicidal ideation , Reports of Suicidal Ideation with a plan, prior attempts in past , Reports of Suicidal or Homicidal ideation or self-injurious behavior ], chiefComplaints : Mental Health, Extr emity Pain , pmh : Anxiety Disorder, Asthma, Chronic Pain, Depression, Osteoporo sis, Hypothyroidism, Gastroesophageal Reflux Disease (GERD), Sleep Apnea, Inflammatory Bowel Disease (Crohn's Disease, Ulcerative Colitis), Cancer , allergies : Tramadol ,&quo t;otherAllergies :null, painAssessment : , visitOutcome : & quot;, additionalComments : 63 y.o female complains of Mental Health, Extremity Pain\nPatient is reporting increased anxiety due to recent bad news. Was unable to reach psychiatrist. Patient is very tearful. Patient has taken Ativan in the past several times in the last 4 years. Offered to have patient speak to resource line. Patient states she already spoke to crisis and therapist today. Patient has a \ pain in her heart\ Patient denies self harm. Patient needs alisa mmendation for medication to take for relief. Has been crying for the last 2 days. Patient also reporting chronic pain to knees and back. Takes anti- inflammatory which is not helping, was going to reach out to pain management. Would also like this addressed \nI provided information on the mobile health provider response time and advised the patient and/or caregiver to monitor reported signs and symptoms. I discussed the warning signs of when to seek emergency care. } SC1 sent to the above address for the pt with some mental health issues and also some extremity pain. The pt was met at the door of her apartment. The pt stated she received some bad news last evening 08/30/2024 and she is having a hard time processing it and she also has a complaint of bilateral knee pain. The pt was not suicidal and or homicidal at any time during the exam. The pt stated she had fluttering in her chest and denies any actual chest pressure. The pt also stated she did not fall onto her knees and has had chronic pain and has an appointment in September to have a nerve block for the knee pain. The pt presented with no shortness of breath lungs were clear bilaterally no JVD. The pt denied any pounding in her ears from a high blood pressure event and the fluttering in her chest has resolved at this time. The pt did try calling her therapist and they have not called her back as of this moment. Dr Short was contacted and the 12 lead and the history were gone over with her. The pt had requested to have some Ativan and had hoped that her therapist could give her a prescription for it but never received the call back. While PA1 was on scene the pt was calming down with conversation. Dr Short prescribed Hydroxyzine for th ept and she would pick it up in the morning. The pt asked if she could take a Benadryl tonight, and Dr Sohrt advised that she could and the pt was going to take one of her own Benadryl 25mg PO just before she goes to bed this evening. The pt was adv ised of the warning signs, chest pain and or severe shortness of breath, syncope, fever, altered mental status. PA1 cleared the call. WRR. IV_(FLUIDS_AND/OR_MEDICATION), MEDICATION_IM, ORAL_MEDICATION, EKG, WOUND_CARE, ORTHOSTATIC_VITAL_SIGNS Written by Randall Hartmann on 2024-08-31
--- OUTSIDE RECORDS SUMMARY | 2024-10-10 06:12 | XMS_ITS | Encounter Summary ---
Author Organization [employer] Address [address] 7[address] [place] [address] Care Team Providers Care Medical Reception Specialist Name Role Phone Name, Gregg DIAMOND Primary Care Provider Encounter Details Date Type Department Care Team (Late st Contact Info) Description 09/28/2024 Results Follow-Up [facility] MEDICINE [address] [place] [address] Maura Taylor, RN XR Clavicle Left Social History Tobacco Use Types Packs/Day Years [...] Telephone Encounter - Maura Taylor RN - 09/28/2024 4:08 PM EDT TC placed to pt to inform and advise of below provider message. Advised pt per provider there is some arthritis but no fracture. Pt reports they are in pain. Pt reports they are using the lidocaine patch and taking tylenol but is having minimal relief. Pt requesting provider recommendation or medication to be sent for the pain. Message forwarded to provider for review. Pt also requesting bone density screening as they have not had in a few years. Per review of chart, last documented BD DEXA Axial in [facility] is 04/10/2022. Message forwarded to PCP for review. ----- Message from Nicole Dai sent at 09/28/2024 3:16 PM EDT ----- Please let pt know that there is some arthritis but no fracture thank you ----- Message ----- From: Interface, Ris Results In Sent: 09/26/2024 3:30 PM EDT To: Nicole Dai NP documented in this encounter Plan of Treatment Upcoming Encounters Date Type Department Care Team (Late st Contact Info) Description 10/18/2024 2:45 PM EDT Office Visit [facility] MEDICINE [address] [facility] [place] [address] Name, MD Gregg [address] [facility] [place] [address] 10/19/2024 9:00 AM EDT Office Visit [facility] ADULT DENTAL [address] [place] [address] Ayan Calvin, RAMIREZ [address] [place] [address] documented as of this encounter Visit Diagnoses Not on filedocumented in this encounter Additional Health Concerns Assessment Noted Time PHQ-9 Depression Total Score: 1 07/18/19 25 11:20 AM EDT documented as of this encounter Care Teams Medical Reception Specialist Relationship Specialty Start Date End Date Name, MD Gregg [facility] [place] [address] PCP - General Family Medicine 04/16/15 [facility] 05/23/24 documented as of this encounter
--- OUTSIDE RECORDS SUMMARY | 2024-10-10 06:12 | XMS_ITS | Encounter Summary ---
Author Organization [employer] Address [address] [facility] 7t [place] [address] Care Team Providers Care Director Correctional Agency Name Role Phone Name, Gregg DIAMOND Primary Care Provider [phone] Reason for Visit * Reason Comments Med Refill Encounter Details Date Type Department Care Team ([facility] st Contact Info) Description 03/04/2022 Refill [facility] MEDICINE [address] [place] [address] Name, MD Gregg [address] [place] [address] Osteoporosis, unspecified osteoporosis type, unspecified pathological fracture [...] AM EST documented as of this encounter Functional Status * Over the past 2 weeks, how often have you been bothered by any of the following problems? Question Answer Date of Assessment Author Little interest or pleasure in doing things Several days 03/04/2022 9:17 AM Jessy Lowe [place] Feeling down, depressed, or hopeless Several days 03/04/2022 9:17 AM Jessy Lowe [place] Patient Health Questionnaire-2 Score 2 03/04/2022 9:17 AM Jessy Lowe [place] * Question Answer Date of Assessment Author Trouble falling or staying asleep, or sleeping too much Several days 03/04/2022 9:17 AM Jessy Lowe [place] Feeling tired or having little energy Several days 03/04/2022 9:17 AM Jessy Lowe [place] Poor appetite or overeating Several days 03/04/2022 9: 17 AM Jessy Lowe [place] Feeling bad about yourself - or that you are a failure or have let yourself or your family down Several days 03/04/2022 9:17 AM Jessy Lowe [place] Trouble concentrating on things, such as reading the newspaper or watching television Several days 03/04/2022 9:17 AM Jessy Lowe [place] Moving or speaking so slowly that other people could have noticed? Or the opposite - being so fidgety or restless that you have been moving around a lot more than usual. Not at all 03/04/2022 9:17 AM Jessy Lowe MA Thoughts that you would be better off or hurting yourself in some way Not at all 03/04/2022 9:17 AM Jessy Lowe [place] Patient Health Questionnaire-9 Score 7 03/04/2022 9:17 AM Jessy Lowe [place] * If you checked off any problems on this questionnaire so far, Question Answer Date of Assessment Author How difficult have these problems made it for you to do your work, take care of things at home, or get along with other people? Somewhat difficult 03/04/2022 9:17 AM Jessy Lowe [place] documented as of this encounter Plan of Treatment Upcoming Encounters Date Type Department Care Team (Late st Contact Info) Description 10/18/2024 2:45 PM EDT Office Visit [facility] MEDICINE [address] [place] [address] Name, MD Gregg [address] [place] [address] 10/19/2024 9:00 AM EDT Office Visit [facility] ADULT DENTAL [address] [place] [address] Ayan Calvin, RAMIREZ [address] [place] [address] documented as of this encounter Visit Diagnoses Diagnosis Osteoporosis, unspecified osteoporosis type, unspecified pathological fracture presence documented in this encounter Additional Health Concerns Assessment Noted Time PHQ-9 Depression Total Score: 7 03/04/19 23 9:17 AM EST documented as of this encounter Care Teams Director Correctional Agency Relationship Specialty Start Date End Date Name, MD Gregg [address] [place] [address] PCP - General Family Medicine 04/16/15 [facility] 05/23/24 documented as of this encounter
--- OUTSIDE RECORDS SUMMARY | 2024-10-10 06:12 | XMS_ITS | Encounter Summary ---
Author Organization [facility] Address [address] [facility] [place] [address] Encounters * CPT with Randall Hartmann at [employer] on 2024-08-10 { reasonForRequest : Pt reporting severe back pain>10 out 10 pain>spinal stenosis>noting she has an appointment with her urologist tomorrow 08/11 due to difficulty with urination", patientReports : , denies :[ Unable to void greater than 5 hours , Erection that will not go away after 2 hours , Fall or trauma that results in urinary incontinence in the setting of pain , Fall or injury that results in incontinence in the absence of pain , Lower back pain either unilateral or bilateral, unable to void, painful urination - hematuria ], chiefComplaints : Back Pain, Urinary Symptoms , pmh : Anxiety Disorder, Asthma, Chronic Pain, Depression, Osteoporosis, Hypothyroidism, Gastroesophageal Reflux Disease (GERD), Sleep Apnea, Inflammatory Bowel Disease (Crohn'sDisease, Ulcerative Colitis), Cancer , allergies : Tramadol , otherAll ergies :null, painAssessment : , visitOutcome : ,"additionalComments : 63 y.o female complains of Back Pain, Urinary Symptoms\n\nReferraltaken via Supervisor Furnace [employer].\nPatient with severe mid to right lower back pain.\nUnsure if it is related to her spinal stenosis vs UTI, history of kidney stones, last MRI in May.\nUrology appt tomorrow due to inability to fully empty bladder.\nPatient reports has received toradol in the past, however, also does have symptoms concerning for a UTI/kidney infection.\nPatient reports malodorous urine, hematuria, dysuria and pelvic pressure/edema, questions of increased urgency- denies painful urination, no darkness or cloudiness to urine, denies fever, +chills, no nausea or vomiting.\nShe would like to be evaluated.\nI provided information on the mobile health provider response time and advised the patient and/or caregiver to monitor reported signs and symptoms. I discussed the warning signs of when to seek emergency care. } Dispatched to above address for back pain urinary problem. On arrival patient 63 y/o F, met SC8 at the door, using walker per baseline, AOX4, airway patent, speaking in full sentences, good color, inno apparent distress. Patient reports she was diagnosed with spinal stenosis in May, has been having ongoing urinary problems for several months, today back pain is much worse, radiates from base of neck down midline back to lower back then to R side and down R leg, tingling and numbness in R foot, tinging in neck, pain in groin, reports she has been having problems with bladder emptying and isbeing seen by Urology for this with a follow up tomorrow. Patients vital signs checked. Secondary assessment, pupils PERRL, airway patent, no JVD, trachea midline, equal chest rise and fall, lungs clear all hunt, abdomen soft non tender patient reports abdomen is slightly distended, no signs of trauma, good radial pulse, skin pink warm and dry, CMS intact all extremities. [facility] contacted, spoke with Dr. Haddad, advised of patient complaints and exam findings. [facility] orders Chem8 and Urine Dipstickchecked. Lab draw preformed, L forearm, Chem8 checked, results uploaded. Urine sample obtained via clean catch, sample taken for culture, dip stick checked, results uploaded. [facility] contacted, advised of test results. [facility] orders 15mg Toradol IM, follow up with urology tomorrow. Patient agrees with this plan. Patient administered 15mg Toradol IM. Patient advised of red flags, home care and need for follow up. Patient has no additional questions or concerns at this time. SC8 clear. EOR. IV_(FLUIDS_AND/OR_MEDICATION), MEDICATION_IM, ORAL_MEDICATION, EKG, POC_BLOODWORK, GLUCOSE Written by Randall Hartmann on 2024-08-10
--- OUTSIDE RECORDS SUMMARY | 2024-10-10 06:12 | XMS_ITS | Encounter Summary ---
Author Organization [employer] Address [address] 7[address] [place] [address] Care Team Providers Care Partner Marketing Manager Name Role Phone Name, Gregg DIAMOND Primary Care Provider [phone] Reason for Visit * Reason Comments Med Refill Encounter Details Date Type Department Care Team ([facility] st Contact Info) Description 07/13/2023 Refill [facility] MEDICINE [address] [place] [address] Ban Granados FNP [address] [place] [address] Social History Tobacco Use Types Packs/Day Years [...] the past 12 months, has t he [employer], path intelligence, oil or water [employer] threatened to shut off services in your [...] 3:57 PM EDT Pt came into the [facility] asking for refills on [employer] meds. She wants Dr. Granados to send the refill in two days to be able to machine operator hop picker in pharmacy. 07/13/23 documented in this encounter Plan of Treatment Upcoming Encounters Date Type Department Care Team (Late st Contact Info) Description 10/18/2024 2:45 PM EDT Office Visit [facility] MEDICINE [address] [place] [address] Name, MD Gregg [address] [place] [address] 10/19/2024 9:00 AM EDT Office Visit [facility] ADULT DENTAL [address] [place] [address] Ayan Calvin, DMD [address] [place] [address] documented as of this encounter Visit Diagnoses Not on filedocumented in this encounter Additional Health Concerns Assessment Noted Time PHQ-9 Depression Total Score: 7 03/04/19 23 9:17 AM EST documented as of this encounter Care Teams Partner Marketing Manager Relationship Specialty Start Date End Date NameGregg MD [address] [place] [address] PCP - General Family Medicine 04/16/15 [facility] 05/23/24 documented as of this encounter
--- OUTSIDE RECORDS SUMMARY | 2024-10-10 06:12 | XMS_ITS | Encounter Summary ---
Author Organization [employer] Address [address] [facility] 7t [place] [address] Care Team Providers Care Sintering Plant Supervisor Name Role Phone Name, Gregg DIAMOND Primary Care Provider [phone] Encounter Details Date Type Department Care Team (Late Contact Info) Description 07/20/2022 Abstract [facility] MEDICINE [address] [place] [address] NameGregg MD [address] [place] [address] Social History Tobacco Use Types Packs/Day Years [...] 2:45 PM EDT Office Visit [facility] MEDICINE [address] [place] [address] Gregg Gandhi MD [address] [place] [address] 10/19/2024 9:00 AM EDT Office Visit [facility] ADULT DENTAL [address] [place] [address] MarixaAyan, DMD [address] [place] [address] documented as of this encounter Procedures Procedure Name Priority Date/Time Associated Diagnosis Comments COLONOSCOPY Routine 08/08/2020 1:49 PM EDT documented in this encounter Results * Hm Colonoscopy (08/08/2020 1:49 PM EDT) Colonoscopy Normal Normal Narrative Jania Anastasia - 08/08/2020 1:49 PM EDT Recommended 5 year follow up Historical Provider HEALTH MAINTENANCE Final Result documented in this encounter Visit Diagnoses Not on filedocumented in this encounter Additional Health Concerns Assessment Noted Time PHQ-9 Depression Total Score: 7 03/04/19 23 9:17 AM EST documented as of this encounter Care Teams Sintering Plant Supervisor Relationship Specialty Start Date End Date Name, MD Gregg [address] [place] [address] PCP - General Family Medicine 04/16/15 [facility] 05/23/24 documented as of this encounter
--- OUTSIDE RECORDS SUMMARY | 2024-10-10 06:12 | XMS_ITS | Encounter Summary ---
Author Organization [employer] Address [address] [facility] [address] [facility] [address] 7t [place] [address] Care Team Providers Care Property And Casualty Insurance Agent Name Role Phone Name, Gregg DIAMOND Primary Care Provider [phone] Reason for Visit * Reason Onset Date Comments Request For Order(s) 07/30/2023 Encounter Details Date Type Department Care Team ([facility] st Contact Info) Description 07/30/2023 Telephone [facility] MEDICINE [address] [place] [address] Name, MD Gregg [address] [place] [address] Request For Order(s) Social History Tobacco Use [...] done. Please clarify Please contact pt at [phone] (No car top bolter needed) documented in this encounter Plan of Treatment Upcoming Encounters Date Type Department Care Team (Late st Contact Info) Description 10/18/2024 2:45 PM EDT Office Visit [facility] MEDICINE [address] [place] [address] Name, MD Gregg [address] [place] [address] 10/19/2024 9:00 AM EDT Office Visit [facility] ADULT DENTAL [address] [place] [address] Ayan Calvin, DMD [address] [place] [address] documented as of this encounter Visit Diagnoses Not on filedocumented in this encounter Additional Health Concerns Assessment Noted Time PHQ-9 Depression Total Score: 7 03/04/19 23 9:17 AM EST documented as of this encounter Care Teams Property And Casualty Insurance Agent Relationship Specialty Start Date End Date Name, MD Gregg [address] [place] [address] PCP - General Family Medicine 04/16/15 [facility] 05/23/24 documented as of this encounter
--- OUTSIDE RECORDS SUMMARY | 2024-10-10 06:12 | XMS_ITS | Encounter Summary ---
Author Organization [employer] Address [address] [facility] 7t [place] [address] Care Team Providers Care Community Educator Name Role Phone Name, Gregg DIAMOND Primary Care Provider Encounter Details Date Type Department Care Team (Latest Contact Info) Description 12/25/2019 Abstract [facility] CONVERSIONS Dental, Provider, DDS Social History Tobacco [...] Description 10/18/2024 2:45 PM EDT Office Visit [facility] MEDICINE [address] [place] [address] Name, MD Gregg [address] [place] [address] 10/19/2024 9:00 AM EDT Office Visit [facility] ADULT DENTAL [address] [place] [address] Ayan Calvin, RAMIREZ [address] [place] [address] documented as of this encounter Visit Diagnoses Not on filedocumented in this encounter Care Teams Community Educator Relationship Specialty Start Date End Date Name, MD Gregg [address] [place] [address] PCP - General Family Medicine 04/16/15 [facility] 05/23/24 documented as of this encounter
--- OUTSIDE RECORDS SUMMARY | 2024-10-10 06:12 | XMS_ITS | Encounter Summary ---
Author Organization [employer] Address [address] [facility] [address] 7[address] [place] [address] Care Team Providers Care Blind Hooker Name Role Phone Name, Gregg DIAMOND Primary Care Provider [phone] Reason for Visit * Reason Comments Med Change Request Encounter Details Date Type Department Care Team ([facility] Contact Info) Description 07/26/2024 Refill [facility] [address] [place] [address] Name, MD Gregg [address] [place] [address] Social History Tobacco Use Types Packs/Day Years [...] Description 10/18/2024 2:45 PM EDT Office Visit [facility] MED[facility] [address] [place] [address] Name, MD Gregg [address] [place] [address] 10/19/2024 9:00 AM EDT Office Visit [facility] ADULT DENTAL [address] [place] [address] Ayan Calvin, DMD [address] [place] [address] documented as of this encounter Visit Diagnoses Not on filedocumented in this encounter Additional Health Concerns Assessment Noted Time PHQ-9 Depression Total Score: 1 07/18/19 11:20 AM EDT documented as of this encounter Care Teams Blind Hooker Relationship Specialty Start Date End Date NameGregg MD [address] [place] [address] PCP - General Family Medicine 04/16/15 [facility] 05/23/24 documented as of this encounter
--- OUTSIDE RECORDS SUMMARY | 2024-10-10 06:12 | XMS_ITS | Encounter Summary ---
Author Organization [employer] Address [address] 7t [place] [address] Care Team Providers Care Truck Rental Clerk Name Role Phone Name, Gregg DIAMOND Primary Care Provider [phone] Encounter Details Date Type Department Care Team (Late st Contact Info) Description 07/26/2024 Orders Only [facility] MEDICINE [address] [place], [place] [phone] Joann Angel NP [address] [place] [address] Obesity (BMI 30-39.9) (Primary Dx) Social History Tobacco Use Types [...] EDT Office Visit [facility] MEDICINE [address] [place] [address] NameGregg MD 230 [place] [address] 10/19/2024 9:00 AM EDT Office Visit [facility] ADULT DENTAL [address] [place] [address] Ayan Calvin, DMD [address] [place] [address] documented as of this encounter Visit Diagnoses Diagnosis Obesity (BMI 30-39.9)- Primary documented in this encounter Additional Health Concerns Assessment Noted Time PHQ-9 Depression Total Score: 1 07/18/19 25 11:20 AM EDT documented as of this encounter Care Teams Truck Rental Clerk Relationship Specialty Start Date End Date NameGregg MD [address] [place] [address] PCP - General Family Medicine 04/16/15 [facility] 05/23/24 documented as of this encounter
--- OUTSIDE RECORDS SUMMARY | 2024-10-10 06:12 | XMS_ITS | Encounter Summary ---
Author Organization [facility] Address [address] [facility] [address] [place] [address] Encounters * CPT with Medical instED at [employer] on 2024-10-03 { reasonForRequest : Patient has a cough and a cold. , patientReports&quot ;: , denies :[ Increased work of breathing/labored with or without fever , Unable to speak in full sentences without distress , Discoloration of skin-cyanosis , Needs to sleep sitting up, can t catch breath , Shortness of breath in setting of confusion ], chiefComplaints : Common Cold , pmh : Anxiety Disorder, Asthma, Chronic Pain, Depression, Osteoporosis, Hypothyroidism, Gastroesophageal Reflux Disease (GERD), Sleep Apnea, Inflammatory Bowel Disease (Crohn's Disease, Ulcerative Colitis), Cancer , allergies : Tramadol, Nubain , otherAllergies :n ull, painAssessment : , visitOutcome : , additionalComments : 63 y.o female complains of Common Cold\n\nPatient with a 1 day history of severecold symptoms.\nPatient reports dry, non-productive, croupy cough, nasal and chest congestion, shortness of breath, sore throat, +chills yesterday, +dizziness and headache yesterday, patient still currently in bed and has not gotten up, she is unsure if she has a fever, endorses no taste. She feelsweak and fatigued.\nDenies any nausea, vomting or diarrhea.\nShe has an albuterol neb and inhaler, but has not had to use.\nShe would like to be evaluated.\n\nI provided information on the mobile health provider response time and advised the patient and/or caregiver to monitor reported signs and symptoms. I discussed the warning signs of when to seek emergency care. } SC12 dispatched to the address listed above for the report of a female libertarian with flu like symptoms. Arrival on scene, patient was found inside seated in chair, alert and oriented x4, patent airway, breathing non labored speaking in complete sentences, skin WPD in no obvious distress. +/= Chest rise. -SOB, -CP, -NVD, -Trauma, -Fever. GCS 15. Lung sounds clear in all hunt. MIH noted tonsils not swollen, no redness or exudate in the back of the throat. Patient reports that she has been experiencing flu like symptoms since last night including productive cough but patient unsure what color sputum is, sore throat, body ache, congestion, chills. Patient denies being around anyone sick. Patient reports history of asthma but has not had to use her inhaler or nebulizer, patient denies any difficulty breathing upon exertion. Patient reports she has been using lozenges and Tylenol for symptoms management but nothing for the cough. Patient reports normal food/fluid intake and has been medication compliant. Patient vital signs obtained as noted. COVID/FLU rapid performed and negative for all.[facility] consulted, provided orders for 200mg Benzonatate PO and advised he would send prescription to patient preferred pharmacy. 200mg Benzonatate PO administered with incident, six patient rights verified prior. Red flags discussed with patient, advised to call 911 if her condition worsens or if she experiences any life threatening symptoms. SC12 Clear. IV_(FLUIDS_AND/OR_MEDICATION), MEDICATION_IM, POC_BLOODWORK Written by Medical instED on 2024-10-03
--- OUTSIDE RECORDS SUMMARY | 2024-10-10 06:12 | XMS_ITS | Continuity of Care Document ---
Author Name inst[facility], Medical Address [address] [place] [address] Organization Unknown Address [address] [place] [address] Medications No known medications Problems No known problems
--- OUTSIDE RECORDS SUMMARY | 2024-10-10 06:12 | XMS_ITS | Encounter Summary ---
Author Organization [employer] Address [address] 7t [place] [address] Care Team Providers Care Economic Development Manager Name Role Phone Name, Gregg DIAMOND Primary Care Provider [phone] Encounter Details Date Type Department Care Team (Late st Contact Info) Description 05/24/2024 Telephone [facility] MEDICINE [address] [place], [place] [phone] Name, MD Gregg [address] [place] [address] Social History Tobacco Use Types Packs/Day Years [...] Description 10/18/2024 2:45 PM EDT Office Visit [facility] MEDICINE [address] [place] [address] NameGregg MD [address] [place] [address] 10/19/2024 9:00 AM EDT Office Visit [facility] ADULT DENTAL [address] [place] [address] Ayan Calvin, DMD [address] [place] [address] documented as of this encounter Visit Diagnoses Not on filedocumented in this encounter Additional Health Concerns Assessment Noted Time PHQ-9 Depression Total Score: 0 09/01/19 24 10:42 AM EDT documented as of this encounter Care Teams Economic Development Manager Relationship Specialty Start Date End Date NameGregg MD [address] [place] [address] PCP - General Family Medicine 04/16/15 [facility] 05/23/24 documented as of this encounter
--- OUTSIDE RECORDS SUMMARY | 2024-10-10 06:12 | XMS_ITS | Encounter Summary ---
Author Organization [employer] Address [address] [facility] [address] [facility] [address] 7t [place] [address] Care Team Providers Care Nursing Associate Name Role Phone Name, Gregg DIAMOND Primary Care Provider [phone] Reason for Visit * Reason Onset Date Comments Appointment Request 04/18/2024 Encounter Details Date Type Department Care Team ([facility] st Contact Info) Description 04/18/2024 Telephone [facility] MEDICINE [address] [place] [address] Name, MD Gregg [address] [place] [address] Appointment Request Social History Tobacco Use Types [...] PCP. Pt states will be out of [place] from June 18- as she has an appointment with the oncologist on the and with the neurosurgeon on June 27. documented in this encounter Plan of Treatment Upcoming Encounters Date Type Department Care Team (Late st Contact Info) Description 10/18/2024 2:45 PM EDT Office Visit [facility] MEDICINE [address] [place] [address] Name, MD Gregg [address] [place] [address] 10/19/2024 9:00 AM EDT Office Visit [facility] ADULT DENTAL [address] [place] [address] Ayan Calvin, RAMIREZ [address] [place] [address] documented as of this encounter Visit Diagnoses Not on filedocumented in this encounter Additional Health Concerns Assessment Noted Time PHQ-9 Depression Total Score: 0 09/01/19 24 10:42 AM EDT documented as of this encounter Care Teams Nursing Associate Relationship Specialty Start Date End Date Name, MD Gregg [address] [place] [address] PCP - General Family Medicine 04/16/15 [facility] 05/23/24 documented as of this encounter
--- OUTSIDE RECORDS SUMMARY | 2024-10-10 06:12 | XMS_ITS | Encounter Summary ---
Author Organization [employer] Address [address] [facility] [address] [facility] [address] 7t [place] [address] Care Team Providers Care Banking Services Clerk Name Role Phone Name, Gregg DIAMOND Primary Care Provider [phone] Reason for Visit * Reason Comments Med Refill Encounter Details Date Type Department Care Team ([facility] st Contact Info) Description 08/03/2023 Refill [facility] MEDICINE [address] [place] [address] Name, MD Gregg [address] [place] [address] Social History Tobacco Use Types Packs/Day Years [...] Description 10/18/2024 2:45 PM EDT Office Visit [facility] MEDICINE [address] [place] [address] Name, MD Gregg [address] [place] [address] 10/19/2024 9:00 AM EDT Office Visit [facility] ADULT DENTAL [address] [place] [address] Ayan Calvin, DMD [address] [place] [address] documented as of this encounter Visit Diagnoses Not on filedocumented in this encounter Additional Health Concerns Assessment Noted Time PHQ-9 Depression Total Score: 7 03/04/19 23 9:17 AM EST documented as of this encounter Care Teams Banking Services Clerk Relationship Specialty Start Date End Date Name, MD Gregg [address] [place] [address] PCP - General Family Medicine 04/16/15 [facility] 05/23/24 documented as of this encounter
--- OUTSIDE RECORDS SUMMARY | 2024-10-10 06:12 | XMS_ITS | Encounter Summary ---
Author Organization [employer] Address [address] [facility] 7t [place] [address] Care Team Providers Care Ammonia Distiller Name Role Phone Name, Gregg DIAMOND Primary Care Provider [phone] Reason for Visit * Reason Onset Date Comments Medication Question 09/04/2024 Encounter Details Date Type Department Care Team ([facility] Contact Info) Description 09/04/2024 Telephone [facility] MEDICINE [address] [place] [address] Name, MD Gregg [address] [place] [address] Medication Question Social History Tobacco Use Types [...] encounter Miscellaneous Notes * Telephone Encounter - Gregg Orta - 09/04/2024 11:55 AM EDT Tc from pt requesting an increase dosage of zepbound. Contact pt at [phone] for any questions. documented in this encounter Plan of Treatment Upcoming Encounters Date Type Department Care Team (Late st Contact Info) Description 10/18/2024 2:45 PM EDT Office Visit [facility] MEDICINE [address] [place] [address] Name, MD Gregg [address] [place] [address] 10/19/2024 9:00 AM EDT Office Visit [facility] ADULT DENTAL [address] [place] [address] Ayan Calvin DMD [address] [place] [address] documented as of this encounter Visit Diagnoses Not on filedocumented in this encounter Additional Health Concerns Assessment Noted Time PHQ-9 Depression Total Score: 1 07/18/19 11:20 AM EDT documented as of this encounter Care Teams Ammonia Distiller Relationship Specialty Start Date End Date Name, MD Gregg [address] [place] [address] PCP - General Family Medicine 04/16/15 [facility] 05/23/24 documented as of this encounter
--- OUTSIDE RECORDS SUMMARY | 2024-10-10 06:12 | XMS_ITS | Encounter Summary ---
Author Organization [employer] Address [address] [facility] [address] [facility] [address] 7t [place] [address] Care Team Providers Care Domain Architect Name Role Phone Name, Gregg DIAMOND Primary Care Provider [phone] Reason for Visit * Reason Onset Date Comments clarification of tx 08/09/2023 Encounter Details Date Type Department Care Team ([facility] st Contact Info) Description 08/09/2023 Telephone [facility] ADULT DENTAL [address] [place] [address] Ayan Calvin, DMD [address] [place] [address] clarification of tx Social History Tobacco Use [...] you to call her. She went to [facility] for RCT today but is looking [...] 10/18/2024 2:45 PM EDT Office Visit [facility] MEDICINE [address] [place] [address] Name, MD Gregg [address] [place] [address] 10/19/2024 9:00 AM EDT Office Visit [facility] ADULT DENTAL [address] [place] [address] Ayan Calvin, DMD [address] [place] [address] documented as of this encounter Visit Diagnoses Not on filedocumented in this encounter Additional Health Concerns Assessment Noted Time PHQ-9 Depression Total Score: 7 03/04/19 23 9:17 AM EST documented as of this encounter Care Teams Domain Architect Relationship Specialty Start Date End Date Name, MD Gregg [address] [place] [address] PCP - General Family Medicine 04/16/15 [facility] 05/23/24 documented as of this encounter
--- OUTSIDE RECORDS SUMMARY | 2024-10-10 06:12 | XMS_ITS | Encounter Summary ---
Author Organization [employer] Address [address] [facility] [address] [address] 7[address] [place] [address] Care Team Providers Care Natural Science Manager Name Role Phone Name, Gregg DIAMOND Primary Care Provider [phone] Reason for Visit * Reason Onset Date Comments Appointment Request 05/24/2024 Encounter Details Date Type Department Care Team ([facility] Contact Info) Description 05/24/2024 Telephone [facility] MEDICINE [address] [place] [address] Name, MD Gregg [address] [place] [address] Appointment Request Social History Tobacco Use Types [...] the phone she will. Contact pt at [phone] documented in this encounter Plan of Treatment Upcoming Encounters Date Type Department Care Team (Late st Contact Info) Description 10/18/2024 2:45 PM EDT Office Visit [facility] MEDICINE [address] [place] [address] Name, MD Gregg [address] [place] [address] 10/19/2024 9:00 AM EDT Office Visit [facility] ADULT DENTAL [address] [place] [address] Ayan Calvin, RAMIREZ [address] [place] [address] documented as of this encounter Visit Diagnoses Not on filedocumented in this encounter Additional Health Concerns Assessment Noted Time PHQ-9 Depression Total Score: 0 09/01/19 24 10:42 AM EDT documented as of this encounter Care Teams Natural Science Manager Relationship Specialty Start Date End Date Name, MD Gregg [address] [place] [address] PCP - General Family Medicine 04/16/15 [facility] 05/23/24 documented as of this encounter
--- OUTSIDE RECORDS SUMMARY | 2024-10-10 06:12 | XMS_ITS | Encounter Summary ---
Author Organization [employer] Address [address] [place] [address] Care Team Providers Care Manager Rail Name Role Phone Name, Gregg DIAMOND Primary Care Provider [phone] Reason for Visit * Reason Onset Date Comments Nurse Triage 05/04/2024 Encounter Details Date Type Department Care Team ([facility] st Contact Info) Description 05/04/2024 Telephone [facility] MEDICINE [address] [place] [address] Name, MD Gregg [address] [place] [address] Nurse Triage Social History Tobacco Use Types [...] information. Do see mention of hemorrhoids. No plastic extruding machine operator needed as this commercial underwriter speaks Gambian. Call returned to Mag Ayala to triage [...] to perform UA. Pt requesting referral to Audioprosthologist per recommendation from Conveyor Man. Pt advised will forward note to Provider [...] acuity questions The caller accepted this outcome. [phone] (arabic) pt states knows Pashto but there are some words she can't say or understand. Tc from pt stating visited the torch cutter today, and he told pt should ask her PCP for a referral for a prosthetic because pt has several purple veins in the anus. Pt states this hasn't happenedto her before. documented in this encounter Plan of Treatment Upcoming Encounters Date Type Department Care Team (Late st Contact Info) Description 10/18/2024 2:45 PM EDT Office Visit [facility] MEDICINE [address] [place] [address] Name, MD Gregg [address] [place] [address] 10/19/2024 9:00 AM EDT Office Visit [facility] ADULT DENTAL [address] [place] [address] Ayan Calvin DMD [address] [place] [address] documented as of this encounter Visit Diagnoses Not on filedocumented in this encounter Additional Health Concerns Assessment Noted Time PHQ-9 Depression Total Score: 0 09/01/19 24 10:42 AM EDT documented as of this encounter Care Teams Manager Rail Relationship Specialty Start Date End Date Name, MD Gregg [address] [place] [address] PCP - General Family Medicine 04/16/15 [facility] 05/23/24 documented as of this encounter
--- OUTSIDE RECORDS SUMMARY | 2024-10-10 06:12 | XMS_ITS | Encounter Summary ---
Author Organization [employer] Address [address] [place] [address] Care Team Providers Care Acid Blower Name Role Phone Name, Gregg DIAMOND Primary Care Provider [phone] Encounter Details Date Type Department Care Team (Late st Contact Info) Description 10/21/[address] [facility] ADULT DENTAL [address] [place] [address] Ayan Calvin, DMD [address] [place] [address] Social History Tobacco Use Types Packs/Day Years [...] 2:45 PM EDT Office Visit [facility] MEDICINE [address] [place] [address] Gregg Gandhi MD [address] [place] [address] 10/19/2024 9:00 AM EDT Office Visit [facility] ADULT DENTAL [address] [place] [address] Ayan Calvin, RAMIREZ [address] [place] [address] documented as of this encounter Visit Diagnoses Not on filedocumented in this encounter Additional Health Concerns Assessment Noted Time PHQ-9 Depression Total Score: 0 09/01/19 24 10:42 AM EDT documented as of this encounter Care Teams Acid Blower Relationship Specialty Start Date End Date NameGregg MD [address] [place] [address] PCP - General Family Medicine 04/16/15 [facility] 05/23/24 documented as of this encounter
--- OUTSIDE RECORDS SUMMARY | 2024-10-10 06:12 | XMS_ITS | Encounter Summary ---
Author Organization [employer] Address [address] [place] [address] Care Team Providers Care Promotions Firm Accounts Manager Name Role Phone Name, Gregg DIAMOND Primary Care Provider [phone] Reason for Visit * Reason Onset Date Comments Dr. Marixa chatman back from lab?? 08/31/2024 Encounter Details Date Type Department Care Team ([facility] Contact Info) Description 08/31/2024 Telephone [facility] ADULT DENTAL [address] [place] [address] Ayan Calvin, DMD [address] [place] [address] Dr. Marixa chatman back from lab?? Social History Tobacco Use Types Packs/Day Years [...] * Telephone Encounter - Nataliia Jalloh - 09/14/2024 12:26 PM EDT Message for Dr. Calvin. Patient came in on 09/01 for case delivery however case was sent back to lab. Patient is checking in on status if back from lab and if she can be scheduled. Please reach out to patient for appt. Sent to both provider and front desk admin * Telephone Encounter - Nataliia Jalloh - 08/31/2024 11:07 AM EDT Message for Dr. Calvin Patient called in stating that she has not gotten an appt for delivery of case that was to be sent to lab to be fixed. She had an appt for periodic evaluation cx by office. Patient would like to knowif case is back from lab and if she can be scheduled for delivery. Also message sent to front desk admin documented in this encounter Plan of Treatment Upcoming Encounters Date Type Department Care Team (Late st Contact Info) Description 10/18/2024 2:45 PM EDT Office Visit [facility] [address] [place] [address] Name, MD Gregg [address] [place] [address] 10/19/2024 9:00 AM EDT Office Visit [facility] ADULT DENTAL [address] [place] [address] Ayan Calvin, DMD [address] [place] [address] documented as of this encounter Visit Diagnoses Not on filedocumented in this encounter Additional Health Concerns Assessment Noted Time PHQ-9 Depression Total Score: 1 07/18/19 25 11:20 AM EDT documented as of this encounter Care Teams Promotions Firm Accounts Manager Relationship Specialty Start Date End Date Name, MD Gregg [address] [place] [address] PCP - General Family Medicine 04/16/15 [facility] 05/23/24 documented as of this encounter
--- OUTSIDE RECORDS SUMMARY | 2024-10-10 06:12 | XMS_ITS | Encounter Summary ---
Author Organization [employer] Address [address] [place] [address] Care Team Providers Care Napping Machine Operator Name Role Phone Name, Gregg DIAMOND Primary Care Provider [phone] Encounter Details Date Type Department Care Team (Late st Contact Info) Description 01/14/2022 Abstract [facility] ADULT DENTAL [address] [place] [address] Dental, Provider, DDS Social History Tobacco Use [...] Department Care Team (Late Contact Info) Description 10/18/2024 2:45 PM EDT Office Visit [facility] MED[facility]INE [address] [place] [address] Name, MD Gregg [address] [place] [address] 10/19/2024 9:00 AM EDT Office Visit [facility] ADULT DENTAL [address] [place] [address] Ayan Calvin DMD [address] [place] [address] documented as of this encounter Procedures Procedure [...] on filedocumented in this encounter Care Teams Napping Machine Operator Relationship Specialty Start Date End Date Name, MD Gregg [address] [place] [address] PCP - General Family Medicine 04/16/15 [facility] 05/23/24 documented as of this encounter
== END 2024-10-10 06:09 | disposition home or self-care (01) ==
LOC: CF 06:08
PROVIDERS: Visit Provider Anesthesiology
DX: M17.0 Bilateral primary osteoarthritis of knee (principal); M25.561 Pain in right knee
CPT/HCPCS: 64447; J2795

== ENCOUNTER 2024-10-10 09:34 | Outpatient (AMB) | payer OTHER, SELFPAY ==
[2024-10-10 10:02] VITALS: BP 125/77; PULSE 99; RESP 20; O2SAT 99
--- NOTE | 2024-10-10 10:02 | A.OFFVIS_ITS ---
Vital Signs 10/10/24 10:02 Weight 165 lb BP 125/77 Blood Pressure Location Lt brachial Position Sitting Respiration 20 Pulse 99 Pulse Source Pulse Oximeter Pulse Oximetry (%) 99 Oxygen Delivery Method Room Air Intake Visit Reasons: DIAGNOSTIC RIGHT FEMORAL NERVE BLOCK W/ ULTRASOUND Radio Communications Superintendent Required: No Allergies nalbuphine (From Nubain) Allergy (Severe, Verified 08/17/24 11:30) Anaphylaxis tramadol Adverse Reaction (Verified 08/17/24 11:30) itchy PFSH Medical History Diverticulosis of colon Right shoulder injury Kidney calculi Nausea & vomiting Bronchitis Close exposure to 2019-nCoV Strain of tendon of medial thigh muscle Easy bruising Hoarseness Dizziness Clostridium difficile infection Osteoarthritis of right knee Sciatica, left side Osteoarthritis of left knee Bilateral hip pain Urinary retention Painful urination Sleep apnea Somnolence, daytime Obesity (BMI 30-39.9) Migraine Syncope Pseudotumor cerebri Crystal arthropathy Kidney tumor COVID-19 vaccine administered Thyroid disease Colon polyp Bronchial asthma Acid reflux Surgical History Status post gastric bypass for obesity Status post excision of lipoma (09/10/23) History of esophagogastroduodenoscopy (EGD) History of surgery on wrist History of hysterectomy Previous section Hx laparoscopic cholecystectomy Hx of colonoscopy Family History Father Heart disease History of open heart surgery Mother Heart disease Social History Household Members: None Household Members Other:: alone Are you a primary day care home mother to a significant other at home: No Do you presently have visiting nurse or other home services: No Alcohol intake: never Patient Tobacco Use Status: Former Tobacco user Tobacco use type: Cigarette service: No Current occupational status: disabled Physical Exam Vital Signs: Last Vital Signs Pulse 99 10/10/24 10:02 Resp 20 10/10/24 10:02 BP 125/77 10/10/24 10:02 Pulse Ox 99 10/10/24 10:02 Oxygen Delivery Method Room Air 10/10/24 10:02 Assessment & Plan Assessment & Plan (1) Osteoarthritis of knees, bilateral: Code(s): M17.0 - Bilateral primary osteoarthritis of knee Category: Medical (2) Right knee pain: Code(s): M25.561 - Pain in right knee Category: Medical Plan Diagnostic right femoral nerve block. After explaining informed consent were risks and benefits were explained to the patient, the patient was positioned on the stretcher with the area of the right groin exposed. The area of the right groin was prepped with ChloraPrep and draped with sterile self adhesive utility towels. Sterilely draped ultrasound probe was brought over the field and femoral nerve femoral artery and femoral vein were demonstrated on the screen. 100 mm echo stim needle was inserted extra anatomically slightly lateral to the ultrasound probe positioned. The needle was advanced toward the femoral nerve under direct ultrasound live view. When needle was positioned in the vicinity of the more nerve injection of the saline contrast was performed delineating perineural spread of the saline. After that 8 cc of ropivacaine 0.5% was injected, the spread of the local anesthetic was observed live on the screen. Upon completion of the injection the needle was withdrawn and Band-Aid was applied. Patient tolerated procedure well. Orders: Orders US guide needle placement Today M17.0 - Bilateral primary osteoarthritis of knee Coding Level of Care Code Procedure Only Diagnoses Osteoarthritis of knees, bilateral M17.0 Right knee pain M25.561
== END 2024-10-10 10:03 | disposition home or self-care (01) ==
LOC: HO.PMCPRC 09:34
PROVIDERS: PCP Internal Medicine Geriatric Medicine; Visit Provider Anesthesiology
DX: M17.0 Bilateral primary osteoarthritis of knee (principal); M25.561 Pain in right knee
CPT/HCPCS: 64447

== ENCOUNTER 2024-11-02 09:21 | Outpatient (AMB) | payer OTHER, SELFPAY ==
[2024-11-02 09:33] VITALS: BP 117/72; PULSE 83; RESP 18; O2SAT 99
--- NOTE | 2024-11-02 09:33 | MHC.OFFVIS ---
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 Patient did not show up immediately after the procedure she supposed to go see me 2 days after the injection however she presenting today and she reports excellent pain relief in the right joint. She continues to endorse very good mobility and minimal right knee pain. We discussed possibility of treating her pain with peripheral nerve stimulation. I offered her curonix PNS versus sprint PNS. She is very concerned about the device which could potentially be dislodged. She would like to consider Curonix PNS . I will schedule her for this procedure as soon as she will provide us psychological evaluation from [facility]. She also complains on lower back pain. On physical exam it is most likely secondary to right sacroiliitis. I offered her diagnostic sacroiliac joint injection. She agreed to go for this procedure. I will schedule this procedure as soon as possible. Prior: I offered her to repeat diagnostic femoral nerve block this time without any sedation so the patient will be under observation immediately after the procedure and would tell us how does she feel with the pain in her knee. We also discussed possibility of treating her knee pain with total knee replacement. She stated that she lives alone and has no support and she will not be able to take care of herself if her knee would be replaced. I explained to her that there is some social network of visitor nurses and therapists who can come and help her at home. I also explained to her that she can not be sent to rehabilitation center for about 1 month to take care of herself. She is afraid to lose her subsidized housing and therefore is not very eager to go for total knee replacement. Eventually she stated that she does not want part of her bones to be cut off to replace it with the prosthesis. I also offered her PRP injection into her knees as some procedure which would not require significant social support to perform with. Patient refused she says that she does not have such amount of money to cover the cost of the procedure. Today she denied discomfort in the groin on physical exam. She states that her most of the concerns is her knee pains and lower back pain. I suggested that we concentrate on the knee pain since it is most severe for her. Prior: complains on pain in the lower back with radiation of the pain into bilateral lower extremities and sensation of the spasticity in bilateral feet and bilateral toes. lying down aggravates her back pain the most. Flexing forward and flexing backwards aggravate her pain however flexing forward aggravate her pain more than flexing backwards. She reports that she fell from the ladder on for back in December of 2023, however her pain did not start then. In May 05, 2024 she reported severe pain and she went to emergency room. She admits that heat alleviates her pain and ice application make her pain worse. She was prescribed gabapentin and cyclobenzaprine to treat her pain. She is also taking Tylenol. She reports minimal help with this medications. She can not take NSAIDs because she had gastric bypass. Her past medical history significant for hypo thyroidism pseudotumor cerebri she is under care of Dr. Banda from [facility]. Past surgical history significant for history of gastric bypass. She denies smoking cigarettes she denies drinking alcohol she denies drinking soda and caffeinated beverages and she denies recreational drugs. [facility] Medical History Diverticulosis of colon Right shoulder injury Kidney calculi Nausea & vomiting Bronchitis Close exposure to 2019-nCoV Strain of tendon of medial thigh muscle Easy bruising Hoarseness Dizziness Clostridium difficile infection Osteoarthritis of right knee Sciatica, left side Osteoarthritis of left knee Bilateral hip pain Urinary retention Painful urination Sleep apnea Somnolence, daytime Obesity (BMI 30-39.9) Migraine Syncope Pseudotumor cerebri Crystal arthropathy Kidney tumor COVID-19 vaccine administered Thyroid disease Colon polyp Bronchial asthma Acid reflux Surgical History Status post gastric bypass for obesity Status post excision of lipoma (09/10/23) History of esophagogastroduodenoscopy (EGD) History of surgery on wrist History of hysterectomy Previous section Hx laparoscopic cholecystectomy Hx of colonoscopy Family History Father Heart disease History of open heart surgery Mother Heart disease Social History Household Members: None Household Members Other:: alone Are you a primary managed care liaison to a significant other at home: No Do you presently have visiting nurse or other home services: No Alcohol intake: never Patient Tobacco Use Status: Former Tobacco user Tobacco use type: Cigarette service: No Current occupational status: disabled Review of Systems Const All systems reviewed & are unremarkable except as noted in HPI and below ENT Reports Normal hearing present Neuro Reports Normal hearing present, Denies Abnormal speech present, Denies confusion and Denies Sensory deficit (Neuro) Psych Denies confusion Physical Exam Vital Signs: Last Vital Signs Pulse 83 11/02/24 09:33 Resp 18 11/02/24 09:33 BP 117/72 11/02/24 09:33 Pulse Ox 99 11/02/24 09:33 Oxygen Delivery Method Room Air 11/02/24 09:33 Const General: no acute distress; No confusion Orientation/consciousness: patient oriented x3 and No confusion Eyes General: appearance normal, both eyes and all related structures Pupils: Equal, round and reactive pupils present EOM: EOMs intact bilaterally Neck Neck: Yes full ROM Chest Chest palpation & inspection: normal inspection of the chest Resp Effort & Inspection: normal respiratory effort, able to speak in complete sentences, normal respiratory pattern, no audible wheezes and no cough Cardio Jugular venous distension: no JVD GI Inspection: Yes normal to inspection Back/Spine/Pelvis Other: Flexing forward aggravates her pain less than flexing backwards. Chapincito test is positive on the right, Gaenslen test is positive on the right, pelvic compression and pelvic distraction tests both positive on the right, yeoman's test is positive on the right. Neuro General: patient oriented x3, gait normal and No confusion Cranial nerves: Yes CN's II-XII intact bilaterally, Yes Equal, round and reactive pupils present, Yes Normal hearing present and Yes Ability to bilaterally elevate shoulders present Speech: No Abnormal speech present Gait exam (Neuro): Normal gait present Motor exam (neuro): 5/5 motor strength present throughout Sensory Exam: No Sensory deficit (Neuro) Extrem Other: On examination of the bilateral knees the deformities are observable and there is tenderness on palpation on anterior surface of bilateral knees. General: No pedal edema Psych Speech and movement: Normal speech and movement present Affect: normal affect Attitude: cooperative Thought process: Normal thought process present Thought content: Normal thought content present Insight: Good insight present (Psych) Judgement: Good judgement present (Psych) Results Reviewed Results Reviewed: MR LUMBAR SPINE WITHOUT CONTRAST CLINICAL INFORMATION: Sacroiliitis, not elsewhere classified. COMPARISON: March 03, 2012. TECHNIQUE: MRI of the lumbar spine was obtained using routine sequences without contrast. FINDINGS: Last rib-bearing vertebra labeled T12. No bone marrow STIR signal abnormality. Multilevel marginal osteophyte formation and disc desiccation more conspicuous at T11-12. Focal hyperintense T2 signal in the posterior intervertebral disc L3-4 and L4-5 S1 likely annular fissure. There is a 1 mm anterolisthesis L3-4 and L1-2 levels. Conus medullaris ends at inferior endplate of T12 with normal signal. T11-12: No disc herniation. No neuroforamina stenosis. Facet joint and ligamentum flavum hypertrophy. T12-L1: Broad-based disc bulging. Facet joint hypertrophy. No compression upon neural elements. L1-2: Broad-based disc bulging. Facet joint and ligamentum flavum hypertrophy. Reduced AP diameter of the thecal sac and the neural foramina. No compression upon neural elements. L2-3: Broad-based disc bulging. Facet joint and ligamentum flavum hypertrophy. Reduced AP diameter of the thecal sac and the neural foramina. No compression upon neural elements. L3-4: Central broad-based disc herniation. Facet joint and ligamentum flavum hypertrophy. Reduced AP diameter of the thecal sac encroaching the neural elements. Bilateral neuroforamina narrowing without compressing the exiting nerve roots. L4-5: Broad-based disc bulging. Facet joint and ligamentum flavum hypertrophy. Reduced AP diameter of the thecal sac encroaching the L5 nerve root on the lateral recesses. Bilateral neuroforamina narrowing encroaching the L4 exiting nerve roots. L5-S1: Broad-based disc bulging. Focal hyperintense T2 signal in the posterior right disc. Reduced AP diameter of the thecal sac encroaching the S1 nerve roots. No neuroforamina stenosis. No prevertebral compartment hematoma, mass or fluid collection. Multifocal hyperintense T2 cystic lesions in the parapelvic kidneys, bilaterally. IMPRESSION: Multilevel thoracolumbar spondylosis more conspicuous at L3-4 and L4-5 and L5-S1 levels resulting in central spinal canal stenosis encroaching the nerve roots on the lateral recesses. Parapelvic renal cysts, bilaterally. Assessment & Plan Assessment & Plan (1) Radiculopathy, lumbar region: Code(s): M54.16 - Radiculopathy, lumbar region Category: Medical (2) Disc degeneration, lumbar: Code(s): M51.369 - Other intervertebral disc degeneration, lumbar region without mention of lumbar back pain or lower extremity pain Category: Medical (3) Sacroiliitis: Code(s): M46.1 - Sacroiliitis, not elsewhere classified Category: Medical (4) Osteoarthritis of right knee: Code(s): M17.11 - Unilateral primary osteoarthritis, right knee Category: Medical (5) Right knee pain: Code(s): M25.561 - Pain in right knee Category: Medical (6) Chronic right sacroiliac joint pain: Code(s): M53.3 - Sacrococcygeal disorders, not elsewhere classified; G89.29 - Other chronic pain Category: Medical Plan Patient will continue home exercise program. 1. After evaluation of this patient's MRI there was moderate to minimal spinal canal stenosis however I do not believe that the magnitude of the stenosis can cause any urinary or pelvic organ problems. 2. Diagnostic femoral nerve block resulted with very pleural long and excellent pain relief in the right knee. She is interested in cure on X PNS. She needs to go for psychological evaluation. After psychological evaluation is done we will schedule her for the trial. Brochure was given to the patient from [facility].. 3. As of her lower back pain most likely it is related to sacroiliitis. I will schedule her for diagnostic sacroiliac joint injection as soon as possible. Patient Instructions: I here by testify that I spent 34 minutes in conversation with this patient as well as planning her care and organizing this note. Coding Level of Care Code Est Pt Level 4 (23800) Diagnoses Radiculopathy, lumbar region M54.16 Disc degeneration, lumbar M51.369 Sacroiliitis M46.1 Osteoarthritis of right knee M17.11 Right knee pain M25.561 Chronic right sacroiliac joint pain M53.3; G89.29
--- OUTSIDE RECORDS SUMMARY | 2024-11-02 10:53 | XMS_ITS | Encounter Summary ---
Author Organization [employer] Address [address] [facility] [address] [facility] [address] [place] [address] Care Team Providers Care Mechanical Design Engineer Name Role Phone Name, Gregg DIAMOND Primary Care Provider [phone] Reason for Visit * Reason Onset Date Comments broken tooth to hold partial 02/28/2024 Encounter Details Date Type Department Care Team ([facility] st Contact Info) Description 02/28/2024 Telephone [facility] ADULT DENTAL [address] [place] [address] Ayan Calvin, DMD [address] [place] [address] broken tooth to hold partial Social History [...] Care Team (Late st Contact Info) Description 11/07/2024 11:30 AM EDT Office Visit [facility] ADULT DENT[facility] [address] [place] [address] Heath Dougherty DDS [address] [place] [address] documented as of this encounter Visit Diagnoses Not on filedocumented in this encounter Additional Health Concerns Assessment Noted Time PHQ-9 Depression Total Score: 0 09/01/19 24 10:42 AM EDT documented as of this encounter Care Teams Mechanical Design Engineer Relationship Specialty Start Date End Date Name, MD Gregg [address] [place] [address] PCP - General Family Medicine 04/16/15 [facility] 05/23/24 documented as of this encounter
--- OUTSIDE RECORDS SUMMARY | 2024-11-02 10:53 | XMS_ITS | Encounter Summary ---
Author Organization [employer] Address [address] [place] [address] Care Team Providers Care Chore Tender Name Role Phone Name, Gregg DIAMOND Primary Care Provider [phone] Reason for Visit * Reason Comments Med Refill Encounter Details Date Type Department Care Team ([facility] st Contact Info) Description 08/03/2023 Refill [facility] MED[facility]INE [address] [place] [address] Name, MD Gregg [address] [place] [address] Social History Tobacco Use Types Packs/Day Years [...] Description 11/07/2024 11:30 AM EDT Office Visit [facility] ADULT DENTAL [address] [place] [address] Heath Dougherty DDS [address] [place] [address] documented as of this encounter Visit Diagnoses Not on filedocumented in this encounter Additional Health Concerns Assessment Noted Time PHQ-9 Depression Total Score: 7 03/04/19 23 9:17 AM EST documented as of this encounter Care Teams Chore Tender Relationship Specialty Start Date End Date Name, MD Gregg [address] [place] [address] PCP - General Family Medicine 04/16/15 [facility] 05/23/24 documented as of this encounter
--- OUTSIDE RECORDS SUMMARY | 2024-11-02 10:53 | XMS_ITS | Encounter Summary ---
Author Organization [employer] Address [address] [facility] [address] [place] [address] Care Team Providers Care Hairmasters Manager Name Role Phone Name, Gregg DIAMOND Primary Care Provider [phone] Reason for Visit * Reason Onset Date Comments PT1 07/27/2023 Encounter Details Date Type Department Care Team ([facility] st Contact Info) Description 07/27/2023 Telephone [facility] [address] [place] [address] Name, MD Gregg [address] [place] [address] PT1 Social History Tobacco Use Types Packs/Day [...] name: Dr. Carson Smith MD Facility Address: [address] [place] [address] [address], [facility], [address] Escort needed: Y/N: No Do you have a wheelchair: Y/N: No If yes- Manual or electric: Visits: 2-3 Next upcoming appt 08/03/23 documented in this encounter Plan of Treatment Upcoming Encounters Date Type Department Care Team (Late st Contact Info) Description 11/07/2024 11:30 AM EDT Office Visit [facility] [address] [place] [address] Heath Dougherty DDS [address] [place] [address] documented as of this encounter Visit Diagnoses Not on filedocumented in this encounter Additional Health Concerns Assessment Noted Time PHQ-9 Depression Total Score: 7 03/04/19 23 9:17 AM EST documented as of this encounter Care Teams Hairmasters Manager Relationship Specialty Start Date End Date Name, MD Gregg [address] [place] [address] PCP - General Family Medicine 04/16/15 [facility] 05/23/24 documented as of this encounter
--- OUTSIDE RECORDS SUMMARY | 2024-11-02 10:53 | XMS_ITS | Encounter Summary ---
Author Organization [employer] Address [address] [facility] [address] [place] [address] Care Team Providers Care Material Liaison Name Role Phone Name, Gregg DIAMOND Primary Care Provider [phone] Reason for Visit * Reason Onset Date Comments Durable Medical Equipment 10/20/2024 Encounter Details Date Type Department Care Team ([facility] st Contact Info) Description 10/20/2024 Telephone [facility] [address] [place] [address] Name, MD Gregg [address] [place] [address] Durable Medical Equipment Social History Tobacco Use [...] * Telephone Encounter - Valentina Beltran - 10/25/2024 3:17 PM EDT Please see message below. Rx generated for replacement shower chair. Please advise on pt request for stockings . If agree, please provide dx and notes to support the need. Thank you * Telephone Encounter - Winifred Su - 10/20/2024 11:39 AM EDT Pt requesting new shower chair pt stated it broke and also requesting stockings documented in this encounter Plan of Treatment Upcoming Encounters Date Type Department Care Team (Late st Contact Info) Description 11/07/2024 11:30 AM EDT Office Visit [facility] [address] [place] [address] Heath Dougherty DDS [address] [place] [address] documented as of this encounter Visit Diagnoses Not on filedocumented in this encounter Additional Health Concerns Assessment Noted Time PHQ-9 Depression Total Score: 1 07/18/19 25 11:20 AM EDT documented as of this encounter Care Teams Material Liaison Relationship Specialty Start Date End Date Name, MD Gregg [address] [place] [address] PCP - General Family Medicine 04/16/15 [facility] 05/23/24 documented as of this encounter
--- OUTSIDE RECORDS SUMMARY | 2024-11-02 10:53 | XMS_ITS | Encounter Summary ---
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 [address] [place] [address] Ayan Calvin, DMD [address] [place] [address] Dr. Calvin unable to use dentures Social History Tobacco Use Types Packs/Day Years [...] * Telephone Encounter - Nataliia Jalloh - 10/23/2024 9:01 AM EDT Message for Dr. Calvin Patient called in stating that she has been in office a few times for adjustments and unable to wear dentures because they don't fit well and has pain. She is dissatisfied and will be contacting insurance to see what can be done. She is bringing them with her on to see what else can be done based on what insurance states documented in this encounter Plan of Treatment Upcoming Encounters Date Type Department Care Team (Late st Contact Info) Description 11/07/2024 11:30 AM EDT Office Visit [facility] [address] [place] [address] Heath Dougherty DDS [address] [place] [address] documented as of this encounter Visit Diagnoses Not on filedocumented in this encounter Additional Health Concerns Assessment Noted Time PHQ-9 Depression Total Score: 1 07/18/19 11:20 AM EDT documented as of this encounter Care Teams Form Raiser Relationship Specialty Start Date End Date Name, MD Gregg [address] [place] [address] PCP - General Family Medicine 04/16/15 [facility] 05/23/24 documented as of this encounter
--- OUTSIDE RECORDS SUMMARY | 2024-11-02 10:53 | XMS_ITS | Clinical Summary ---
Author Organization [employer] Address [address] [place] [address] Care Team Providers Care Probation Worker Name Role Phone Name, Gregg DIAMOND Primary Care Provider [phone] Allergies Active Allergy Reactions Criticality Noted Date [...] 2 sprays each nostril bid prn rhinorrhea, chinese 15 mL 024 Active doxepin (SINEquan) 75 [...] EVERYDAY AT NOON 90 tablet 025 Active gabapentin (Neurontin) 100 MG capsule [...] for 30 minutes 12 tablet 025 Active Zepbound 12.5 MG/0.5ML solution auto-injectorIn dications:Obesi ty (BMI 30-39.9) INJECT ONE PEN (=12.5MG) SUBCUTANEOUSLY ONCE A WEEK DIRECTED 2 mL 1 025 2024 Discontinued(D uplicate order (will not trigger notification to Pharmacy)) Active Problems Problem Noted Date Diagnosed Date Disc degeneration, lumbar 10/18/2024 Diverticulitis 10/18/2024 Osteoarthritis of hips, bilateral 10/18/2024 Radiculopathy, lumbar region 10/18/2024 Sacroiliitis 10/18/2024 Sciatica, left side 10/18/2024 Strain of left inguinal muscle 10/18/2024 Bronchitis 05/02/2024 Overview (05/02/2024): SHE HAS A [...] is already in the process of seeing [facility] Plan: Increase fluids, pain [...] 01/14/2022 Retention of urine 01/14/2022 Vertigo 01/14/2022 Benign paroxysmal positional vertigo 01/27/2021 Overview (10/18/2024): Benign paroxysmal vertigo, left ear; Note: Date Diagnosed: 01/27/2021 9:47 AM (H81.12) Otorrhea of right ear 04/15/2020 Overview (10/18/2024): Otorrhea, right ear; Note: Date Diagnosed: 04/15/2020 9:41 AM (H92.11) Over weight 07/14/2018 Overview (09/01/2023): Last Assessment [...] obesity medications. Migraine 07/14/2017 Acid reflux 06/19/2016 Overview (10/18/2024): She will switch daily PPI, avoid culprits- discussed scheduling EGD - Chronic pharyngitis 05/13/2016 Overview (10/18/2024): Chronic sore throat; Note: Date Diagnosed: 05/13/2016 10:24 AM (J31.2) Dysphonia 05/13/2016 Overview (10/18/2024): Dysphonia; Note: Date Diagnosed: 05/13/2016 10:26 AM (R49.0) Pruritus 04/10/2016 Overview (10/18/2024): Other pruritus; Note: Date Diagnosed: 04/10/2016 11:46 AM (L29.8) Chronic low back pain 05/07/2015 Hx of gastric bypass 03/12/2015 Sensorineural hearing loss (SNHL) of both ears 1 Overview (10/18/2024): Sensorineural hearing loss, unilateral, right ear, with unrestricted hearing on the contralateral side; Note: Date Diagnosed: 2014 1:13 PM (H90.41) Bilateral impacted cerumen 11/15/2014 Overview (10/18/2024): Impacted cerumen, left ear; Note: Date Diagnosed: 11/15/2014 4:59 PM (H61.22) Mixed conductive and sensori neural hearing loss of right ear 11/15/2014 Overview (10/18/2024): Mixed conductive and sensorineural hearing loss, unilateral, left ear, with unrestricted hearing on the contralateral side; Note: Date Diagnosed: 11/15/2014 5:00 PM (H90.72) Mixed conductive and sensorineural hearing loss, unilateral, right ear, with unrestricted hearing on the contralateral side; Note: Date Diagnosed: 11/15/2014 5:00 PM (H90.71) Impacted cerumen 11/12/2014 Overview (10/18/2024): Disorders of external ear: Impacted cerumen; Note: Date Diagnosed: 11/12/2014 9:15 PM (380.4) Infective otitis externa of left ear 11/12/2014 Overview (10/18/2024): Acute otitis externa; Note: Date Diagnosed: 11/12/2014 9:55 PM (380.10) Chronic headache disorder 07/12/2012 H/O total adrenalectomy [...] Recent lab work not available contacted [facility] for results. Will renew medications at [...] I will evaluate for congenital adrenal hyperplasia, [place] syndrome, polycystic ovarian syndrome although that seems [...] Encounters Date Type Department Care Team Description 10/26/2024 3:00 PM EDT Office Visit [facility] [address] [place] [address] Ayan Calvin DMD 10/23/2024 Telephone [facility] [address] [place] [address] Yen unable to use dentures 10/20/2024 Telephone [facility] [address] [place] [address] NameGregg MD Durable Medical Equipment 10/19/2024 9:00 AM EDT Office Visit [facility] [address] [place] [address] Ayan Calvin DMD 10/18/2024 2:45 PM EDT Office Visit [address] [address] Gregg Gandhi MD Obesity (BMI 30-39.9) (Primary Dx) 10/18/2024 Travel 09/28/2024 Results Follow-Up [address] [address] Maura Taylor, BRIAN XR Clavicle Left 09/27/[address] [address] Gregg Gandhi MD Osteoporosis, unspecified osteoporosis type, unspecified pathological fracture presence 09/26/2024 1:30 PM EDT Office Visit [address] [address] Nicole Dai NP Acute pain of left shoulder (Primary Dx) 09/26/2024 Travel 09/25/2024 Refill [facility] [address] [place] [address] Gregg Gandhi MD 09/25/[address] [address] Gregg Gandhi MD Nurse Triage 09/22/2024 Refill [facility] [address] [place] [address] Gregg Gandhi MD 09/20/2024 Refill [facility] [address] [place] [address] Gregg Gandhi MD Osteoporosis, unspecified osteoporosis type, unspecified pathological fracture presence 09/04/[address] [address] Gregg Gandhi MD Medication Question 09/01/2024 8:00 AM EDT Office Visit [facility] [address] [place] [address] Ayan Calvin, RAMIREZ 09/01/[address] [address] Gregg Gandhi MD Results 08/31/2024 Telephone [facility] [address] [place] [address] Ayan Calvin, DMD Dr. Calvin case back from lab?? 08/29/2024 Orders Only GENERIC EXTERNAL DATA DEPARTMENT Provider, Generic External Data 08/29/[address] [address] Gregg Gandhi MD 08/28/2024 3:45 PM EDT Office Visit [address] [address] Gregg Gandhi MD Class 1 obesity (Primary Dx); Acquired hypothyroidism; Weight gain; Skin cyst; Chronic bilateral low back pain, unspecified whether sciatica present 08/28/2024 Travel 08/25/[address] [address] Xochitl Rahman [place] CHARTPREP 08/23/2024 Refill [facility] [address] [place] [address] Joann Angel NP Obesity (BMI 30-39.9) 08/16/2024 Telephone [facility] [address] [place] [address] Name, MD Gregg Durable Medical Equipment; Communication (Patient walked in [...] EXTERNAL DATA DEPARTMENT Provider, Generic External Data from Last 3 Months Immunizations Immunization Administration Dates Next Due Influenza injectable quadriv alent IIV4 with preservative 12/23/2017,01/04/2017,11/19/2015 Influenza injectable quadriv alent preservative free 11/05/2022,12/01/2021,11/06/2020,11/16,11/08/2018,12/12/2014 Influenza, High Dose Seasona l, Preservative Free 11/01/2024 Influenza, IIV3, injectable 11/15/2013 Influenza, Split (incl. [...] Sign Reading Time Taken Comments Blood Pressure 124/72 10/18/2024 3:24 PM EDT Pulse 96 10/18/2024 3:24 PM EDT Temperature 36.3 C (97.4 F) 10/18/2024 3:24 PM EDT Respiratory Rate 18 10/18/2024 3:24 PM EDT Oxygen Saturation 98% 10/18/2024 3:24 PM EDT Inhaled Oxygen Concentration - - Weight 81.5 kg (179 lb 9.6 oz) 10/18/2024 3:24 P M EDT Height 160 cm (5' 3 ) 10/18/2024 3:24 PM EDT Body Mass Index 31.81 10/18/2024 3:24 PM EDT Plan of Treatment Upcoming Encounters Date Type Department Care Team (Late st Contact Info) Description 11/07/2024 11:30 AM EDT Office Visit [facility] [address] [place] [address] LadonnaEj fowlerHeath, DDS [address] [place], [place] [phone] Health Maintenance Due Date Last Done Comments CT Colonography 1960 FIT DNA/Cologuard 1960 FIT 1960 FOBT 1960 Sigmoidoscopy 1960 Hepatitis C Screening 1976 RSV Patients and Patients Aged 60 years or older (1 - Risk 60-74 years 1-dose series) 2018 Dental Oral Exam 03/03/2024 08/31/2023 Dental Prophylaxis 03/03/2024 08/31/2023 Dental X-Ray: Bitewings 08/31/2024 08/31/2023, 08/01 COVID-19 Vaccine ( season) 2024 11/17/2022, 12/25/2021, 12/23/2020, Additional history exists Mammogram 04/19/2025 04/20/2023, 03/19, 04/09/2022, Additional history exists Lipid Panel 05/20/2025 05/20/2020 Depression Screening 07/17/2025 07/17/2024, 07/18/19 25 Colonoscopy 08/08/2025 08/08/2020 Colorectal Cancer Screening 08/08/2025 SDOH Screening 08/28/2025 08/28/2024 Alcohol/Substance Use Screening 09/26/2025 09/26/2024 Tobacco Screening 10/26/2025 10/26/2024 DTaP/Tdap/Td Vaccines (2 - Td or Tdap) 01/26/2026 01/27/2016 Dental X-Ray: Full Mouth 08/31/2026 08/31/2023 Zoster Vaccines Completed 12/22/2021, 10/21/2021 Pneumococcal Vaccine: 50+ Years Completed 10/26/2023, 12/14/2011 Influenza Vaccine Completed 11/01/2024, , 11/05/2022, Additional history exists HIB Vaccines Aged Out No longer eligi [...] Procedure Name Priority Date/Time Associated Diagnosis Comments CASE PRESENTATION, DETAILED AND EXTENSIVE TREATMENT PLANNING Routine 10/26/2024 3:00 PM EDT 7 MF(V) RESIN-BASED COMPOSITE - 2 SURF, ANTERIOR Routine 10/26/2024 3:00 PM EDT 31 M RESIN-BASED COMPOSITE - 1 SURF, POSTERIOR Routine 10/26/2024 3:00 PM EDT CASE PRESENTATION, DETAILED AND EXTENSIVE TREATMENT PLANNING Routine 10/19/2024 9:00 AM EDT 18,19,20,23,24,25,26,2 9,30 MANDIBULAR PARTIAL DENTURE - CAST METAL FRAMEWORK WITH RESIN DENTURE BASES (INCLUDING RETENTIVE/CLASPING MATERIALS, RESTS AND TEETH) Routine 10/19/2024 9:00 AM EDT 2,3,5,8,9,10,12,15,14 MAXILLARY PARTIAL DENTURE - CAST METAL FRAMEWORK WITH RESIN DENTURE BASES (INCLUDING RETENTIVE/CLASPING MATERIALS, RESTS AND TEETH) Routine 10/19/2024 9:00 AM EDT XR CLAVICLE LEFT Routine 09/26/2024 2:20 PM EDT Acute pain of left shoulder NO CHARGE VISIT Routine 09/01/2024 8:00 AM EDT COMPREHENSIVE METABOLIC PANEL Routine 08/29/2024 8:26 AM EDT CBC WITH AUTO DIFFERENTIAL Routine 08/29/2024 8:26 AM EDT TSH W/REFLEX TO FT4 Routine 08/29/2024 8 :26 AM EDT Weight gain CYTOPATH-CELL ENHANCED Routine 5:52 PM EDT Full PROPHYLAXIS - ADULT Routine 08/31/2023 [...] PM EDT Narrative 09/26/2024 3:29 PM EDT [address] [address] XRay Report Signed Patient: Mag Ayala MR#: [id number] 4 : 1960 Acct:[id number] Age/Sex: 63 / F ADM Date: 09/26/24 Loc: .HHX Attending Dr: Nicole Dai FRONT END DEVELOPER Ordering Physician: Nicole Dai NP Date of Service: 09/26/24 Procedure(s): XR clavicle LT Accession Number(s): [id number] cc: Nicole Dai FRONT END DEVELOPER EXAMINATION: XR CLAVICLE LEFT HISTORY: pain COMPARISON: [...] 09/26/24 1526 DD/ 1420 TD/TT: 09/26/24 1450 Ballistics Expert Forensic: Procedure Note Donotuseinterpreter, Image - 09/26/[address] [address] XRay Report Signed Patient: Eulalia Ayala#: [id number] 4 : 1960cct:[id number] Age/Sex: 63 / FADM Date: 09/26/24 Loc: HO.HHCX Attending Dr: Nicole Dai FRONT END DEVELOPER Ordering Physician: Nicole Dai NP Date of Service: 09/26/24 Procedure(s): XR clavicle LT Accession Number(s): [id number] cc: Nicole Dai FRONT END DEVELOPER EXAMINATION: XR CLAVICLE LEFT HISTORY: pain COMPARISON: [...] 09/26/24 1526 DD/ 1420 TD/TT: 09/26/24 1450 Ballistics Expert Forensic: us Nicole Dai NP IMG XR PROCEDURES Final Result * TSH W/Reflex to FT4 (08/29/2024 8:26 AM EDT) TSH reflex Free T4 2.05 0.32 - 4.0 uIU/mL [facility] Blood Venous blood specimen / Unknown 08/29/2024 8:26 AM EDT 08/29/2024 11:06 AM EDT us Gregg Gandhi MD LAB BLOOD ORDERABLES Final Resul t [facility] [address] [place] [phone] * (ABNORMAL) CBC auto differential (08/29/2024 8:26 AM EDT) White Blood Count 6.3 4.8 - 10.8 X10*3/uL [facility] Red Blood Count 4.57 4.20 - 5.50 X10*6/uL [facility] Hemoglobin 12.3 12.0 - 16.0 g/dl [facility] Hematocrit 39.6 37.0 - 47.0 % [facility] Mean Corpuscular Volume 86.7 80.0 - 98.0 fL [facility] Mean Corpuscular Hemoglobin 26.9(L) 27.0 - 33.0 pg [facility] Mean Corpuscular HGB Conc 31.1 31.0 - 35.0 g/dl [facility] Red Cell Distribution Width 16.4(H) 11.0 - 16.0 % [facility] Platelet Count 320 160 - 400 X10*3/uL [facility] Mean Platelet Volume 10.2 9.4 - 12.3 fL [facility] Neutrophils Percent Auto 57.0 45 - 73 % [facility] Imm Gran Pct Auto 0.3 0.0 - 0.4 % [facility] Lymphocytes Percent Auto 29.4 20 - 40 % [facility] Monocytes Percent Auto 10.3 2 - 11 % [facility] Eosinophils Percent Auto 2.4 0 - 4 % [facility] Basophils Percent Auto 0.6 0 - 2 % [facility] NRBC Pct Auto 0.0 0.0 - 0.2 /100WBC [facility] Neutrophils Absolute Auto 3.6 2.0 - 8.3 x10*3/uL [facility] Imm Gran Abs Auto 0.02 0.00 - 0.03 X10*3/uL [facility] Lymphocytes Absolute Auto 1.9 1.2 - 4.9 X10*3/uL [facility] Monocytes Absolute Auto 0.7 0.1 - 1.2 X10*3/uL [facility] Eosinophils Absolute Auto 0.2 0.0 - 0.4 X10*3/uL [facility] Basophils Absolute Auto 0.0 0.0 - 0.2 X10*3/uL [facility] NRBC Abs Auto 0.000 0.0 - 0.012 X10*3/uL [facility] 08/29/2024 8:26 AM EDT 08/29/2024 11:06 AM EDT us Generic External Data Provider LAB BLOOD ORDERAB LES Final Result [facility] [address] [place] [address] [phone] * (ABNORMAL) Comprehensive Metabolic Panel (08/29/2024 8:26 AM EDT) Sodium 142 135 - 145 mmol/L [facility] Potassium 4.4 3.3 - 5.1 mmol/L [facility] Chloride 105 96 - 108 mmol/L [facility] Carbon Dioxide 30(H) 22 - 29 mmol/L [facility] Anion Gap 11(L) 12 - 20 [facility] Urea Nitrogen (BUN) 17(H) 9 - 16 mg/dL [facility] Creatinine, Serum 0.86 0.5 - 1.4 mg/dL [facility] Estimated Glomerular Filt Rate >60 [facility] Comment:Chronic Kidney Disea se: Estimated GFR < 60 mL/min/1.96p6Dlgoxm Kidney Disease: Estimated GFR < 15 mL/min/1.73m2 Glucose 88 60 - 115 mg/dL [facility] Calcium 8.7 8.4 - 10.2 mg/dL [facility] Bilirubin, Total 0.3 0.0 - 1.0 mg/dL [facility] Aspartate Amino Transferase 27 5 - 31 U/L [facility] Alanine Aminotransferase 16 0 - 31 U/L [facility] Total Protein 6.7 6.5 - 8.0 g/dL [facility] Albumin Level 3.7 3.5 - 5.0 g/dL [facility] Alkaline Phosphatase 74 39 - 117 U/L [facility] 08/29/2024 8:26 AM EDT 08/29/2024 11:06 AM EDT us Generic External Data Provider LAB BLOOD ORDERAB LES Final Result [facility] [address] [place] [phone] * Cytopath-cell enhanced (08/03/2024 5:52 PM EDT) 08/03/2024 5:52 PM EDT 08/04/2024 9:30 AM EDT Narrative [facility] - 08/05/2024 5:23 PM EDT ----- ------- Name: Mag Ayala Age/Sex: 63/F : 1960 Unit#: [id number] Attend Dr: Faina Gomes MD Re08/03/24 Status: [facility] REF Location: [facility] Disch: ----- ------- SPEC : [id number] RECD: 08/04/24 STATUS: [facility] NUM: [id number] CHAITANYA: 08/03/24 [facility] DR: Faina Gomes MD ENTERED: 08/04/24-6 SP TYPE: Cytology OTHR DR: Gregg Gandhi MD ORDERED: Cyto-enhanced Diagnosis [...] developed and their performance characteristics determined by [facility]. They have not been cleared or approved by the U.S. Food and Drug Administration (FDA). However, the FDA has determined that such clearance or approval is not necessary. This laboratory is certified under the Clinical Laboratory Improvement Amendments of 1988 (CLIA) as qualified to perform high complexity clinical laboratory testing. Copies To: Faina Gomes MD [facility] [address] [place] [address] Dr[address] Dior [address] [place] [phone] [email or web address] Name,Gregg DIAMOND [address] [place] [address] CONTINUED ON NEXT PAGE ----- ------- Name: JamieMag Age/Sex: 63/F : 1960 Unit#: [id number] Attend Dr: Faina Gomes MD Re08/03/24 Status: DEP [facility] Disch: ----- ------- SPEC : [id number] RECD: 08/04/24 STATUS: [facility] NUM: [id number] CHAITANYA: 08/03/24 [facility] DR: Faina Gomes MD ENTERED: 08/04/24-1026 SP TYPE: Cytology OTHR DR: Gregg Gandhi MD ORDERED: Cyto-enhanced ----- ------- Signed (signature on file) Alexandriadanika Monge 08/05/24 1723 ----- ------- END OF REPORT us Generic External Data Provider LAB CYTOLOGY CHUNGAgustin NASCIMENTOPRASHANTH Final Result [facility] [address] [place] [address] [phone] * BI Mammogram Screening Tomosynthesis Bilateral (04/20/2023 12:05 PM EST) Anatomical Region Laterality Modality Breast Bilateral Mammography 04/20/2023 12:0 5 PM EST Narrative 05/05/2023 8:29 AM EDT [facility] [address] [place] [address] Mammography Report Signed Patient: Mag Ayala MR#: [id number] 4 : 1960 Acct:[id number] Age/Sex: 62 / F ADM Date: 04/20/23 Loc: HO.MAMMO Attending Dr: Gregg Gandhi MD Ordering Physician: Gregg Gandhi MD Results: 1Negative Date of Service: 04/20/23 Follow Up: 1 Year From Orig inal Mammogram Procedure(s): MM tomosynthesis screening BI Accession Number(s): [id number] cc: Gregg Gandhi MD EXAMINATION: MM SCREENING [...] in OV> 05/05/23 0825 DD/ 1205 TD/TT: Ballistics Expert Forensic: Procedure Note Donotuseinterpreter, Image - 05/05/2023 [facility] [address] [place], [place] [address] Mammography Report Signed Patient: Eulalia Ayala#: [id number] 4 : 9Acct:[id number] Age/Sex: 62 / FADM Date: 04/20/23 Loc: HO.MAMMO Attending Dr: Gregg Gandhi MD Ordering Physician: Gregg Gandhi MDResults: 1Negative Date of Service: 04/20/23Follow Up: 1 Year From Orig inal Mammogram Procedure(s): MM tomosynthesis screening BI Accession Number(s): [id number] cc: Gregg Gnadhi MD EXAMINATION: MM SCREENING DIGITAL BREAST TOMOSYNTHESIS, [...] in OV> 05/05/23 0825 DD/ 1205 TD/TT: Ballistics Expert Forensic: Gregg Name IMG BI PROCEDURES Final Result [...] factors. LDL-C is now calculated using the Darek-Yancy calculation, which is a validated novel method providing better accuracy than the Friedewald equation in the estimation of LDL-C. Darek MADISON et al. BOO. 2013;310(19): 2379-4120 (http://education.Vessel.artandseek/faq/LMB076) Non-HDL Cholesterol 125 <130 mg/dL (calc) [facility] [...] t [facility] [address] [place] [address], from Last 3 Months or Most Recently Relevant to Health Maintenance Insurance [facility] STANDARD [facility] SKILLED NURSING OPTIONS (HMO D-SNP) DENTAL [facility] * Guarantor: Mag Ayala Account Type Relation to Patient Date of Phone Billing Address Personal/Family Self [phone] Care Teams Probation Worker Relationship Specialty Start Date End Date Name, MD Gregg [address] [place] [address] PCP - General Family Medicine 04/16/15 [facility] 05/23/24
--- OUTSIDE RECORDS SUMMARY | 2024-11-02 10:53 | XMS_ITS | Encounter Summary ---
Author Organization [employer] Address [address] [place] [address] Care Team Providers Care Mammalogy Teacher Name Role Phone Name, Gregg DIAMOND Primary Care Provider [phone] Reason for Visit * Reason Comments Med Refill Encounter Details Date Type Department Care Team ([facility] st Contact Info) Description 11/16/2023 Refill [facility] [address] [place] [address] Yennifer Ramirez MD [address] [place] [address] Flu-like symptoms Social History Tobacco Use Types [...] 11/07/2024 11:30 AM EDT Office Visit [facility] [address] [place] [address] Heath Dougherty DDS [address] [place] [address] documented as of this encounter Visit Diagnoses Diagnosis Flu-like symptoms documented in this encounter Additional Health Concerns Assessment Noted Time PHQ-9 Depression Total Score: 0 09/01/19 24 10:42 AM EDT documented as of this encounter Care Teams Mammalogy Teacher Relationship Specialty Start Date End Date Name, MD Gregg [address] [place] [address] PCP - General Family Medicine 04/16/15 [facility] 05/23/24 documented as of this encounter
--- OUTSIDE RECORDS SUMMARY | 2024-11-02 10:53 | XMS_ITS | Encounter Summary ---
Author Organization [employer] Address [address] [place] [address] Care Team Providers Care Circular Sawyer Stone Name Role Phone Name, Gregg DIAMOND Primary Care Provider Encounter Details Date Type Department Care Team (Late st Contact Info) Description 07/26/2024 Orders Only [facility] [address] [place], [place] [phone] Joann Angel NP [address] [place] [address] Obesity (BMI 30-39.9) (Primary Dx) Social History [...] Description 11/07/2024 11:30 AM EDT Office Visit [facility] [address] [place] [address] Heath Dougherty DDS [address] [place] [address] documented as of this encounter Visit Diagnoses Diagnosis Obesity (BMI 30-39.9)- Primary documented in this encounter Additional Health Concerns Assessment Noted Time PHQ-9 Depression Total Score: 1 07/18/19 11:20 AM EDT documented as of this encounter Care Teams Circular Sawyer Stone Relationship Specialty Start Date End Date Name, MD Gregg [address] [place] [address] PCP - General Family Medicine 04/16/15 [facility] 05/23/24 documented as of this encounter
--- OUTSIDE RECORDS SUMMARY | 2024-11-02 10:53 | XMS_ITS | Encounter Summary ---
Author Organization [employer] Address [address] [place] [address] Care Team Providers Care Slip Filler Name Role Phone Name, Gregg DIAMOND Primary Care Provider [phone] Reason for Visit * Reason Comments Med Refill Encounter Details Date Type Department Care Team ([facility] st Contact Info) Description 07/13/2023 Refill [facility] [address] [place] [address] Ban Granados FNP [address] [place] [address] Social History Tobacco Use Types Packs/Day Years [...] the past 12 months, has t he [employer] oil or water company threatened to shut [...] in two days to be able to picker and sorter load and unload in pharmacy. 07/13/23 documented in this encounter Plan of Treatment Upcoming Encounters Date Type Department Care Team (Late st Contact Info) Description 11/07/2024 11:30 AM EDT Office Visit [facility] [address] [place] [address] Heath Dougherty DDS [address] [place] [address] documented as of this encounter Visit Diagnoses Not on filedocumented in this encounter Additional Health Concerns Assessment Noted Time PHQ-9 Depression Total Score: 7 03/04/19 23 9:17 AM EST documented as of this encounter Care Teams Slip Filler Relationship Specialty Start Date End Date Name, MD Gregg [address] [place] [address] PCP - General Family Medicine 04/16/15 [facility] 05/23/24 documented as of this encounter
--- OUTSIDE RECORDS SUMMARY | 2024-11-02 10:53 | XMS_ITS | Encounter Summary ---
Author Organization [employer] Address [address] [facility] [address] [facility] [address] 7t [place] [address] Care Team Providers Care Director Of Loss Prevention Name Role Phone Name, Gregg DIAMOND Primary Care Provider [phone] Reason for Visit * Reason Comments Med Change Request Encounter Details Date Type Department Care Team ([facility] Contact Info) Description 07/26/2024 Refill [facility] MEDICINE [address] [place] [address] Name, MD Gregg [address] [place] [address] Social History Tobacco Use Types Packs/Day Years [...] Description 11/07/2024 11:30 AM EDT Office Visit [facility] ADULT DENTAL [address] [place] [address] Heath Dougherty DDS [address] [place] [address] documented as of this encounter Visit Diagnoses Not on filedocumented in this encounter Additional Health Concerns Assessment Noted Time PHQ-9 Depression Total Score: 1 07/18/19 11:20 AM EDT documented as of this encounter Care Teams Director Of Loss Prevention Relationship Specialty Start Date End Date Name, MD Gregg [address] [place] [address] PCP - General Family Medicine 04/16/15 [facility] 05/23/24 documented as of this encounter
--- OUTSIDE RECORDS SUMMARY | 2024-11-02 10:53 | XMS_ITS | Encounter Summary ---
Author Organization [employer] Address [address] [facility] 7t [place] [address] Care Team Providers Care Finish Machine Tender Name Role Phone Name, Gregg DIAMOND Primary Care Provider [phone] Reason for Visit * Reason Onset Date Comments PT1 02/25/2023 Encounter Details Date Type Department Care Team ([facility] st Contact Info) Description 02/25/2023 Telephone [facility] MEDICINE [address] [place] [address] Name, MD Gregg [address] [place] [address] PT1 Social History Tobacco Use Types Packs/Day [...] - valid through 06/2023 [facility] neurology - [id number] authorized Dr Chakraborty - [id number] pending [facility] Gen Surg - [id number] authorized [facility] - [id number] authorized Renal & Trans - [id number] authorized ENT - [id number] pending [facility] medical office - [id number] pending * Telephone Encounter - Cameron Su - 02/25/2023 4:29 PM EST PT1 needed Date: N/A Time: N/A Visits: 2 or 3 monthly Address: [address] [facility] Facility: [facility] Cardiovascular Wheel Chair: No Locate Technician Needed: No PT1 needed Date: N/A Time: N/A Visits: 2 or 3 Monthly Address: [address] [facility] Facility: [facility] Neurology Wheel No Locate Technician Needed: No PT1 needed Date: N/A Time: N/A Visits: 2 or 3 Monthly Address: [address] [facility] Facility: Dr Chakraborty Wheel Chair: No Locate Technician Needed: No PT1 needed Date: N/A Time: N/A Visits: 2 or 3 Monthly Address: [address] [place] [address] dr [place] Facility: [facility] General Surgery Wheel Chair: No Locate Technician Needed: No PT1 needed Date: N/A Time: N/A Visits: 2 or 3 Monthly Address: [address] [place] [address] Facility: [facility] Wheel Chair: No Locate Technician Needed: No PT1 needed Date: N/A Time: N/A Visits: 2 or 3 monthly Address: [address] [facility] Facility: [facility] Wheel Chair: No Locate Technician Needed: No PT1 needed Date: N/A Time: N/A Visits: 2 or 3 monthly [facility] [address] [facility] Facility: [facility] Wheel Chair: No Locate Technician Needed: No PT1 needed Date: N/A Time: N/A Visits: 2 or 3 Monthly Address: [address] [facility] [address] Cesia DESOUZA Facility: [facility] medical Office Wheel Chair: No Locate Technician Needed: No PT1 needed Date: N/A Time: N/A Visits: 2 or 3 Monthly Address: [address] [place] [address] Facility: [facility] Wheel Chair: No Locate Technician Needed: No documented in this encounter Plan of Treatment Upcoming Encounters Date Type Department Care Team (Late st Contact Info) Description 11/07/2024 11:30 AM EDT Office Visit [facility] ADULT DENTAL [address] [place] [address] Heath Dougherty DDS [address] [place] [address] documented as of this encounter Visit Diagnoses Not on filedocumented in this encounter Additional Health Concerns Assessment Noted Time PHQ-9 Depression Total Score: 7 03/04/19 23 9:17 AM EST documented as of this encounter Care Teams Finish Machine Tender Relationship Specialty Start Date End Date Name, MD Gregg [address] [place] [address] PCP - General Family Medicine 04/16/15 [facility] 05/23/24 documented as of this encounter
--- OUTSIDE RECORDS SUMMARY | 2024-11-02 10:53 | XMS_ITS | Encounter Summary ---
Author Organization [employer] Address [address] [facility] [address] [address] 7t [place] [address] Care Team Providers Care Label Maker Name Role Phone Name, Gregg DIAMOND Primary Care Provider [phone] Reason for Visit * Reason Onset Date Comments clarification of tx 08/09/2023 Encounter Details Date Type Department Care Team ([facility] st Contact Info) Description 08/09/2023 Telephone [facility] ADULT DENTAL [address] [place] [address] Ayan Calvin, DMD [address] [place] [address] clarification of tx Social History Tobacco Use [...] call her. She went to [facility] for RCT today but is looking to [...] Description 11/07/2024 11:30 AM EDT Office Visit [facility] ADULT DENTAL [address] [place] [address] Heath Dougherty DDS [address] [place] [address] documented as of this encounter Visit Diagnoses Not on filedocumented in this encounter Additional Health Concerns Assessment Noted Time PHQ-9 Depression Total Score: 7 03/04/19 23 9:17 AM EST documented as of this encounter Care Teams Label Maker Relationship Specialty Start Date End Date Name, MD Gregg [address] [place] [address] PCP - General Family Medicine 04/16/15 [facility] 05/23/24 documented as of this encounter
--- OUTSIDE RECORDS SUMMARY | 2024-11-02 10:53 | XMS_ITS | Encounter Summary ---
Author Organization [employer] Address [address] [facility] 7t [place] [address] Care Team Providers Care Business Development Associate Name Role Phone Name, Gregg DIAMOND Primary Care Provider [phone] Reason for Visit * Reason Comments Med Refill Encounter Details Date Type Department Care Team ([facility] st Contact Info) Description 02/14/2024 Refill [facility] MEDICINE [address] [place] [address] Name, MD Gregg [address] [place] [address] Social History Tobacco Use Types Packs/Day Years [...] Description 11/07/2024 11:30 AM EDT Office Visit [facility] ADULT DENTAL [address] [place] [address] Heath Dougherty DDS [address] [place] [address] documented as of this encounter Visit Diagnoses Not on filedocumented in this encounter Additional Health Concerns Assessment Noted Time PHQ-9 Depression Total Score: 0 09/01/19 24 10:42 AM EDT documented as of this encounter Care Teams Business Development Associate Relationship Specialty Start Date End Date Name, MD Gregg [address] [place] [address] PCP - General Family Medicine 04/16/15 [facility] 05/23/24 documented as of this encounter
--- OUTSIDE RECORDS SUMMARY | 2024-11-02 10:53 | XMS_ITS | Encounter Summary ---
Author Organization [employer] Address [address] [facility] [address]t [place] [address] Care Team Providers Care Clinical Quality Analyst Name Role Phone Name, Gregg DIAMOND Primary Care Provider [phone] Reason for Visit * Reason Onset Date Comments Request For Order(s) 07/30/2023 Encounter Details Date Type Department Care Team ([facility] st Contact Info) Description 07/30/2023 Telephone [facility] MEDICINE [address] [place] [address] Name, MD Gregg [address] [place] [address] Request For Order(s) Social History Tobacco Use [...] done. Please clarify Please contact pt at [phone] (No stave block splitter needed) documented in this encounter Plan of Treatment Upcoming Encounters Date Type Department Care Team (Late st Contact Info) Description 11/07/2024 11:30 AM EDT Office Visit [facility] ADULT DENTAL [address] [place], [place] [id number] Heath Dougherty DDS [address] [place] [address] documented as of this encounter Visit Diagnoses Not on filedocumented in this encounter Additional Health Concerns Assessment Noted Time PHQ-9 Depression Total Score: 7 03/04/19 23 9:17 AM EST documented as of this encounter Care Teams Clinical Quality Analyst Relationship Specialty Start Date End Date Name, MD Gregg [address] [place] [address] PCP - General Family Medicine 04/16/15 [facility] 05/23/24 documented as of this encounter
--- OUTSIDE RECORDS SUMMARY | 2024-11-02 10:53 | XMS_ITS | Encounter Summary ---
Author Organization [employer] Address [address] [facility] [address]t [place] [address] Care Team Providers Care Sugar Presser Name Role Phone Name, Gregg DIAMOND Primary Care Provider [phone] Reason for Visit * Reason Onset Date Comments Nurse Triage 11/27/2022 Encounter Details Date Type Department Care Team ([facility] st Contact Info) Description 11/27/2022 Telephone [facility] MEDICINE [address] [place] [address] Name, MD Gregg [address] [place] [address] Nurse Triage Social History Tobacco Use Types [...] t he electric, gas, oil or water [employer] threatened to shut off services in your [...] caller accepted this outcome Does not need field training agent . documented in this encounter Plan of Treatment Upcoming Encounters Date Type Department Care Team (Late st Contact Info) Description 11/07/2024 11:30 AM EDT Office Visit [facility] ADULT DENTAL [address] [place] [address] Heath Dougherty DDS [address] [place] [address] documented as of this encounter Visit Diagnoses Not on filedocumented in this encounter Additional Health Concerns Assessment Noted Time PHQ-9 Depression Total Score: 7 03/04/19 23 9:17 AM EST documented as of this encounter Care Teams Sugar Presser Relationship Specialty Start Date End Date Name, MD Gregg [address] [place] [address] PCP - General Family Medicine 04/16/15 [facility] 05/23/24 documented as of this encounter
--- OUTSIDE RECORDS SUMMARY | 2024-11-02 10:54 | XMS_ITS | Encounter Summary ---
Author Organization [employer] Address [address] [facility] [address] [address] 7t [place] [address] Care Team Providers Care Opticianry Teacher Name Role Phone Name, Gregg DIAMOND Primary Care Provider [phone] Reason for Visit * Reason Onset Date Comments Nurse Triage 05/04/2024 Encounter Details Date Type Department Care Team ([facility] st Contact Info) Description 05/04/2024 Telephone [facility] MEDICINE [address] [place] [address] Name, MD Gregg [address] [place] [address] Nurse Triage Social History Tobacco Use Types [...] information. Do see mention of hemorrhoids. No content creation manager needed as this entry writer speaks Bahraini. Call returned to Mag Ayala to triage [...] to perform UA. Pt requesting referral to Conference Center Coordinator per recommendation from Gal[facility] Hand. Pt advised will forward note to Provider [...] acuity questions The caller accepted this outcome. [phone] (estonian) pt states knows Georgian but there are some words she can't say or understand. Tc from pt stating [place] the return agent airport today, and he told pt should ask her PCP for a referral for a prosthetic because pt has several purple veins in the anus. Pt states this hasn't happenedto her before. documented in this encounter Plan of Treatment Upcoming Encounters Date Type Department Care Team (Late st Contact Info) Description 11/07/2024 11:30 AM EDT Office Visit [facility] ADULT DENTAL [address] [place] [address] Heath Dougherty DDS [address] [place] [address] documented as of this encounter Visit Diagnoses Not on filedocumented in this encounter Additional Health Concerns Assessment Noted Time PHQ-9 Depression Total Score: 0 09/01/19 24 10:42 AM EDT documented as of this encounter Care Teams Opticianry Teacher Relationship Specialty Start Date End Date Name, MD Gregg [address] [place] [address] PCP - General Family Medicine 04/16/15 [facility] 05/23/24 documented as of this encounter
--- OUTSIDE RECORDS SUMMARY | 2024-11-02 10:54 | XMS_ITS | Encounter Summary ---
Author Organization [employer] Address [address] [facility] [address] [place] [address] Care Team Providers Care Fire Alarm Mechanic Name Role Phone Name, Gregg DIAMOND Primary Care Provider [phone] Encounter Details Date Type Department Care Team (Late st Contact Info) Description 05/24/2024 Telephone [facility] MEDICINE [address] [place], [place] [id number] Name, MD Gregg [address] [place] [address] Social History Tobacco Use Types Packs/Day Years [...] your housing situation today? I have loly loreod 09/01/[address] you li [...] Description 11/07/2024 11:30 AM EDT Office Visit [facility] ADULT DENTAL [address] [place] [address] Heath Dougherty DDS [address] [place] [address] documented as of this encounter Visit Diagnoses Not on filedocumented in this encounter Additional Health Concerns Assessment Noted Time PHQ-9 Depression Total Score: 0 09/01/19 24 10:42 AM EDT documented as of this encounter Care Teams Fire Alarm Mechanic Relationship Specialty Start Date End Date Name, MD Gregg [address] [place] [address] PCP - General Family Medicine 04/16/15 [facility] 05/23/24 documented as of this encounter
--- OUTSIDE RECORDS SUMMARY | 2024-11-02 10:54 | XMS_ITS | Encounter Summary ---
Author Organization [employer] Address [address] 7[address] [place] [address] Care Team Providers Care Machine Quilt Stuffer Name Role Phone Name, Gregg DIAMOND Primary Care Provider [phone] Reason for Visit * Reason Onset Date Comments Appointment Request 05/24/2024 Encounter Details Date Type Department Care Team ([facility] Contact Info) Description 05/24/2024 Telephone [facility] MEDICINE [address] [place] [address] Name, MD Gregg [address] [place] [address] Appointment Request Social History Tobacco Use Types [...] the phone she will. Contact pt at [phone] documented in this encounter Plan of Treatment Upcoming Encounters Date Type Department Care Team (Late st Contact Info) Description 11/07/2024 11:30 AM EDT Office Visit [facility] ADULT DENTAL [address] [place] [address] Heath Dougherty DDS [address] [place] [address] documented as of this encounter Visit Diagnoses Not on filedocumented in this encounter Additional Health Concerns Assessment Noted Time PHQ-9 Depression Total Score: 0 09/01/19 24 10:42 AM EDT documented as of this encounter Care Teams Machine Quilt Stuffer Relationship Specialty Start Date End Date Name, MD Gregg [address] [place] [address] PCP - General Family Medicine 04/16/15 [facility] 05/23/24 documented as of this encounter
--- OUTSIDE RECORDS SUMMARY | 2024-11-02 10:54 | XMS_ITS | Encounter Summary ---
Author Organization [employer] Address [address] [facility] [address] 7t [place] [address] Care Team Providers Care Silk Examiner Name Role Phone Name, Gregg DIAMOND Primary Care Provider [phone] Reason for Visit * Reason Onset Date Comments Appointment Request 04/18/2024 Encounter Details Date Type Department Care Team ([facility] st Contact Info) Description 04/18/2024 Telephone [facility] MEDICINE [address] [place] [address] Name, MD Gregg [address] [place] [address] Appointment Request Social History Tobacco Use Types [...] PCP. Pt states will be out of [place] from June 18- as she has an appointment with the oncologist on the and with the neurosurgeon on June 27. documented in this encounter Plan of Treatment Upcoming Encounters Date Type Department Care Team (Late st Contact Info) Description 11/07/2024 11:30 AM EDT Office Visit [facility] ADULT DENTAL [address] [place] [address] Heath Dougherty DDS [address] [place] [address] documented as of this encounter Visit Diagnoses Not on filedocumented in this encounter Additional Health Concerns Assessment Noted Time PHQ-9 Depression Total Score: 0 09/01/19 24 10:42 AM EDT documented as of this encounter Care Teams Silk Examiner Relationship Specialty Start Date End Date Name, MD Gregg [address] [place] [address] PCP - General Family Medicine 04/16/15 [facility] 05/23/24 documented as of this encounter
--- OUTSIDE RECORDS SUMMARY | 2024-11-02 10:54 | XMS_ITS | Encounter Summary ---
Author Organization [employer] Address [address] [facility] 7t [place] [address] Care Team Providers Care Inventory Control Assistant Name Role Phone Name, Gregg DIAMOND Primary Care Provider [phone] Reason for Visit * Reason Comments Med Refill Encounter Details Date Type Department Care Team ([facility] st Contact Info) Description 03/04/2022 Refill [facility] MEDICINE [address] [place] [address] Name, MD Gregg [address] [place] [address] Osteoporosis, unspecified osteoporosis type, unspecified pathological fracture [...] Description 11/07/2024 11:30 AM EDT Office Visit [facility] ADULT DENTAL [address] [place] [address] Heath Dougherty DDS [address] [place] [address] documented as of this encounter Visit Diagnoses Diagnosis Osteoporosis, unspecified osteoporosis type, unspecified pathological fracture presence documented in this encounter Additional Health Concerns Assessment Noted Time PHQ-9 Depression Total Score: 7 03/04/19 23 9:17 AM EST documented as of this encounter Care Teams Inventory Control Assistant Relationship Specialty Start Date End Date Name, MD Gregg [address] [place] [address] PCP - General Family Medicine 04/16/15 [facility] 05/23/24 documented as of this encounter
--- OUTSIDE RECORDS SUMMARY | 2024-11-02 10:54 | XMS_ITS | Encounter Summary ---
Author Organization [employer] Address [address] [facility] 7t [place] [address] Care Team Providers Care Tube Bender Name Role Phone Name, Gregg DIAMOND Primary Care Provider [phone] Encounter Details Date Type Department Care Team (Late Contact Info) Description 07/20/2022 Abstract [facility] MEDICINE [address] [place] [address] Name, MD Gregg [address] [place] [address] Social History Tobacco Use Types Packs/Day Years [...] Department Care Team (Late Contact Info) Description 11/07/2024 11:30 AM EDT Office Visit [facility] ADULT DENTAL [address] [place] [address] Heath Dougherty, DDS [address] [place] [address] documented as of this encounter Procedures Procedure Name Priority Date/Time Associated Diagnosis Comments HM COLONOSCOPY Routine 08/08/2020 1:49 PM EDT documented [...] documented as of this encounter Care Teams Tube Bender Relationship Specialty Start Date End Date Name, MD Gregg [address] [place] [address] PCP - General Family Medicine 04/16/15 [facility] 05/23/24 documented as of this encounter
--- OUTSIDE RECORDS SUMMARY | 2024-11-02 10:54 | XMS_ITS | Encounter Summary ---
Author Organization [employer] Address [address] [facility] 7t [place] [address] Care Team Providers Care Sales Program Coordinator Name Role Phone Name, Gregg DIAMOND Primary Care Provider [phone] Encounter Details Date Type Department Care Team (Latest Contact Info) Description 09/27/2018 Abstract [facility] CONVERSIONS Dental, Provider, DDS Social [...] Description 11/07/2024 11:30 AM EDT Office Visit [facility] ADULT DENTAL [address] [place] [address] Heath Dougherty DDS [address] [place] [address] documented as of this encounter Visit Diagnoses Not on filedocumented in this encounter Care Teams Sales Program Coordinator Relationship Specialty Start Date End Date Name, MD Gregg [address] [place] [address] PCP - General Family Medicine 04/16/15 [facility] 05/23/24 documented as of this encounter
--- OUTSIDE RECORDS SUMMARY | 2024-11-02 10:54 | XMS_ITS | Encounter Summary ---
Author Organization [employer] Address [address] [facility] 7t [place] [address] Care Team Providers Care Facility Maintenance Technician Name Role Phone Name, Gregg DIAMOND Primary Care Provider [phone] Reason for Visit * Reason Comments Med Refill Encounter Details Date Type Department Care Team (Late st Contact Info) Description 10/06/2022 Refill [facility] MEDICINE [address] [place] [address] Name, MD Gregg [address] [place] [address] Osteoporosis, unspecified osteoporosis type, unspecified pathological fracture [...] Description 11/07/2024 11:30 AM EDT Office Visit [facility] ADULT DENTAL [address] [place] [address] Heath Dougherty DDS [address] [place] [address] documented as of this encounter Visit Diagnoses Diagnosis Osteoporosis, unspecified osteoporosis type, unspecified pathological fracture presence documented in this encounter Additional Health Concerns Assessment Noted Time PHQ-9 Depression Total Score: 7 03/04/19 23 9:17 AM EST documented as of this encounter Care Teams Facility Maintenance Technician Relationship Specialty Start Date End Date Name, MD Gregg [address] [place] [address] PCP - General Family Medicine 04/16/15 [facility] 05/23/24 documented as of this encounter
--- OUTSIDE RECORDS SUMMARY | 2024-11-02 10:54 | XMS_ITS | Encounter Summary ---
Author Organization [employer] Address [address] [facility] 7t [place] [address] Care Team Providers Care Block Engraver Name Role Phone Name, Gregg DIAMOND Primary Care Provider [phone] Reason for Visit * Reason Onset Date Comments Medication Question 09/04/2024 Encounter Details Date Type Department Care Team ([facility] Contact Info) Description 09/04/2024 Telephone [facility] MEDICINE [address] [place] [address] Name, MD Gregg [address] [place] [address] Medication Question Social History Tobacco Use Types [...] increase dosage of zepbound. Contact pt at [phone] for any questions. documented in this encounter Plan of Treatment Upcoming Encounters Date Type Department Care Team ([facility] st Contact Info) Description 11/07/2024 11:30 AM EDT Office Visit [facility] ADULT DENTAL [address] [place] [address] Heath Dougherty DDS [address] [place] [address] documented as of this encounter Visit Diagnoses Not on filedocumented in this encounter Additional Health Concerns Assessment Noted Time PHQ-9 Depression Total Score: 1 07/18/19 25 11:20 AM EDT documented as of this encounter Care Teams Block Engraver Relationship Specialty Start Date End Date Name, MD Gregg [address] [place] [address] PCP - General Family Medicine 04/16/15 [facility] 05/23/24 documented as of this encounter
--- OUTSIDE RECORDS SUMMARY | 2024-11-02 10:54 | XMS_ITS | Encounter Summary ---
Author Organization [employer] Address [address] 7t [place] [address] Care Team Providers Care Jig Builder Name Role Phone Name, Gregg DIAMOND Primary Care Provider [phone] Encounter Details Date Type Department Care Team (Late st Contact Info) Description 10/21/2023 Telephone [facility]ULT [facility] [address] [place] [address] Ayan Calvin, DMD [address] [place] [address] Social History Tobacco Use Types Packs/Day Years [...] Visit [facility] [address] [place] [address] Heath Dougherty DDS [address] [place] [address] documented as of this encounter Visit Diagnoses Not on filedocumented in this encounter Additional Health Concerns Assessment Noted Time PHQ-9 Depression Total Score: 0 09/01/19 24 10:42 AM EDT documented as of this encounter Care Teams Jig Builder Relationship Specialty Start Date End Date Name, MD Gregg [address] [place] [address] PCP - General Family Medicine 04/16/15 [facility] 05/23/24 documented as of this encounter
--- OUTSIDE RECORDS SUMMARY | 2024-11-02 10:54 | XMS_ITS | Encounter Summary ---
Author Organization [employer] Address [address] [facility] 7t [place] [address] Care Team Providers Care Rn Staff Name Role Phone Name, Gregg DIAMOND Primary Care Provider [phone] Encounter Details Date Type Department Care Team (Late Contact Info) Description 01/14/2022 Abstract [facility] ADULT DENTAL [address] [place] [address] Dental, Provider, DDS Social History Tobacco Use [...] [facility] [address] [place] [address] Heath Dougherty DDS [address] [place] [address] documented as of this encounter Procedures Procedure [...] on filedocumented in this encounter Care Teams Rn Staff Relationship Specialty Start Date End Date Name, MD Gregg [address] [place] [address] PCP - General Family Medicine 04/16/15 [facility] 05/23/24 documented as of this encounter
--- OUTSIDE RECORDS SUMMARY | 2024-11-02 10:54 | XMS_ITS | Encounter Summary ---
Author Organization [employer] Address [address] 7t [place] [address] Care Team Providers Care Pipe Stem Aligner Name Role Phone Name, Gregg DIAMOND Primary Care Provider [phone] Reason for Visit * Reason Comments Med Refill Encounter Details Date Type Department Care Team ([facility] st Contact Info) Description 06/07/2024 Refill [facility] MED[facility] [address] [place] [address] Name, MD Gregg [address] [place] [address] Social History Tobacco Use Types Packs/Day Years [...] Description 11/07/2024 11:30 AM EDT Office Visit [facility] ADULT DENTAL [address] [place] [address] Heath Dougherty DDS [address] [place] [address] documented as of this encounter Visit Diagnoses Not on filedocumented in this encounter Additional Health Concerns Assessment Noted Time PHQ-9 Depression Total Score: 0 09/01/19 24 10:42 AM EDT documented as of this encounter Care Teams Pipe Stem Aligner Relationship Specialty Start Date End Date Name, MD Gregg [address] [place] [address] PCP - General Family Medicine 04/16/15 [facility] 05/23/24 documented as of this encounter
--- OUTSIDE RECORDS SUMMARY | 2024-11-02 10:54 | XMS_ITS | Clinical Summary ---
Author Organization [facility] Address [address] [place] [address] [place] [address] Phone Care Team Providers Care Rubber Insulator Name Role Phone Name, Gregg DIAMOND Primary Care Provider [phone] Allergies Active Allergy Reactions Criticality Noted Date [...] directed by MD Active lorcaserin 20 mg [id number]:St atus post bariatric surgery Take 20 mg [...] 02/20/19 Active calcium carb/D3/magnesium/ zinc (CALCIUM CARB-D3-MAG AQL70-PRCI) [id number] hx-aupp-va-mg Tab Take 1 tablet by mouth. Active [...] or more in. Also I discussed the [employer] fitness pal kamla so that she can [...] range. Recent lab work not available contacted [facility] for results. Will renew medications at [...] reference range. She does have follow-up with car wrecker and hopefully this will yield some information. I would not make any changes to the dose of levothyroxine. Encounters Date Type Department Care Team Description 10/12/2024 Telephone [facility] [address] [place] [address] [place] [address] Dionicio Chakraborty, DO thyroid check (thyroid check) from Last 3 Months Family History Medical History Relation Comments Coronary [...] 02/28/2019 10:16 AM EST Plan of Treatment Upcoming Encounters Date Type Department Care Team (Late st Contact Info) Description 02/07/2025 9:10 AM EST Telemedicine - audio only [facility] [address] [place] [address] Dionicio Chakraborty DO [address] [place] [address] [email or web address] Due Date Last Done Comments DEPRESSION SCREENING 1970 HEPATITIS C SCREENING 1976 HIV ONE-TIME SCREENING (18-65 YEARS) 1976 SCREENING FOR DIABETES 1993 COLOGUARD 11/27/2003 COLONOSCOPY 11/27/2003 COLORECTAL CANCER SCREENING 11/27/2003 FIT TEST 11/27/2003 FOBT 11/27/2003 SIGMOIDOSCOPY 11/27/2003 VIRTUAL COLONOSCOPY 11/27/2003 ZOSTER VACCINES (1 of 2) 2008 PNEUMOCOCCAL VACCINES (50+ years) (2 of 2 - PCV) 12/13/2012 12/14/2011 MAMMOGRAM 04/09/2024 04/09/2022, 03/19, 02/28/2019, Additional history exists INFLUENZA VACCINE (#1) 2024 11/17/2019, 2018 COVID-19 VACCINE ( - 2023- season) 2024 TSH LEVEL 11/14/2024 11/15/2023, 08/3 02/2021, 04/18/2021, Additional history exists LIPID PANEL 05/20/2025 [...] TSH (11/15/2023 2:27 PM EDT) Blood Dionicio Chakraborty DO LAB BLOOD ORDERABLES Final Resul t [facility] [address] [place] [address] from Last 3 Months or Most Recently Relevant to Health Maintenance Insurance MEDICARE PART A & [facility] MEDICARE PART A & B MEDICARE REPLACEMENT MEDICARE PART A & B [facility] MEDICARE REPLACEMENT MEDICARE PART A & B [facility] MEDICARE REPLACEMENT MEDICARE PART A & B [facility] MEDICARE REPLACEMENT MEDICARE PART A & B [facility] MEDICARE REPLACEMENT Care Teams Rubber Insulator Relationship Specialty Start Date End Date Name, MD Gregg [address] [place] [address] PCP - General Geriatric Psychiatry 03/15/18 Additional Source Comments The information contained in this document represents components of the legal health record. It is not the complete legal health record.[facility]
--- OUTSIDE RECORDS SUMMARY | 2024-11-02 10:54 | XMS_ITS | Encounter Summary ---
Author Organization [employer] Address [address] [facility] 7t [place] [address] Care Team Providers Care Circuitry Negative Inspector Name Role Phone Name, Gregg DIAMOND Primary Care Provider [phone] Reason for Visit * Reason Onset Date Comments ER Follow-up 05/02/2024 Nurse Triage 05/02/2024 Encounter Details Date Type Department Care Team ([facility] st Contact Info) Description 05/02/2024 Telephone [facility] [address] [place] [address] Name, MD Gregg [address] [place] [address] ER Follow-up; Nurse Triage Social History Tobacco [...] rollator walker. TC placed to [facility] pharamcyregarding the fosamax. Lori states the [...] in June as she will leaving for [place] at the beginning of June Pt requesting a call from PCP. Marketing Systems Analyst found telehealth visit in PCP schedule. [...] more information. TC placed to [facility] pharamcy regardingthe fosamax. Lori states the [...] she went [place] [facility] [place] due to right leg pain and right knee isswollen. Pt. Was also having throbbing pain in left side of groin. [facility] did not find any blood clot in leg and Xray of left hip and pelvis-negative. ED is recommending referral to [employer] according to pt. Pt does not want [...] that she remembers. Pt. Needs referral to [employer]. Offered pt. Appt. Today but, pt. Only wants to speak to pcp and is requesting appt. With PCP only or call from PCP to discuss updates and needs. Please get back to pt. To let her know if any of these needs can be met Will send request to Clinical coordinators to get [facility] [place] from yesterday into pt. Chart. Multiple needs. * Telephone Encounter - Shubham Booth - 05/02/2024 10:20 AM EDT Patient calling to report ED visit on : Date: 05/01/2024 Hospital: [facility] [...] [facility] [address] [place] [address] Heath Dougherty DDS [address] [place] [address] documented as of this encounter Visit Diagnoses Not on filedocumented in this encounter Additional Health Concerns Assessment Noted Time PHQ-9 Depression Total Score: 0 09/01/19 24 10:42 AM EDT documented as of this encounter Care Teams Circuitry Negative Inspector Relationship Specialty Start Date End Date Name, MD Gregg [address] [place] [address] PCP - General Family Medicine 04/16/15 [facility] 05/23/24 documented as of this encounter
--- OUTSIDE RECORDS SUMMARY | 2024-11-02 10:54 | XMS_ITS | Encounter Summary ---
Author Organization [employer] Address [address] [facility] 7t [place] [address] Care Team Providers Care Art Museum Docent Name Role Phone Name, Gregg DIAMOND Primary Care Provider [phone] Reason for Visit * Reason Comments Med Refill Encounter Details Date Type Department Care Team (Late st Contact Info) Description 10/14/2022 Refill [facility] [address] [place] [address] Name, MD Gregg [address] [place] [address] Osteoporosis, unspecified osteoporosis type, unspecified pathological fracture [...] 11:30 AM EDT Office Visit [facility] ADULT DENTAL [address] [place] [address] Heath Dougherty DDS [address] [place] [address] documented as of this encounter Visit Diagnoses Diagnosis Osteoporosis, unspecified osteoporosis type, unspecified pathological fracture presence documented in this encounter Additional Health Concerns Assessment Noted Time PHQ-9 Depression Total Score: 7 03/04/19 23 9:17 AM EST documented as of this encounter Care Teams Art Museum Docent Relationship Specialty Start Date End Date Name, MD Gregg [address] [place] [address] PCP - General Family Medicine 04/16/15 [facility] 05/23/24 documented as of this encounter
--- OUTSIDE RECORDS SUMMARY | 2024-11-02 10:54 | XMS_ITS | Encounter Summary ---
Author Organization [employer] Address [address] [place] [address] Care Team Providers Care Turning Sander Tender Name Role Phone Name, Gregg DIAMOND Primary Care Provider [phone] Reason for Visit * Reason Onset Date Comments Dr. Marixa chatman back from lab?? 08/31/2024 Encounter Details Date Type Department Care Team ([facility] Contact Info) Description 08/31/2024 Telephone [facility] ADULT DENTAL [address] [place] [address] Ayan Calvin, DMD [address] [place] [address] Dr. Marixa chatman back from lab?? Social [...] appt. Sent to both provider and front office representative * Telephone Encounter - Nataliia Jalloh - [...] for delivery. Also message sent to front office representative documented in this encounter Plan of Treatment Upcoming Encounters Date Type Department Care Team (Late st Contact Info) Description 11/07/2024 11:30 AM EDT Office Visit [facility] ADULT DENT[facility] [address] [place] [address] Heaht Dougherty DDS [address] [place] [address] documented as of this encounter Visit Diagnoses Not on filedocumented in this encounter Additional Health Concerns Assessment Noted Time PHQ-9 Depression Total Score: 1 07/18/19 11:20 AM EDT documented as of this encounter Care Teams Turning Sander Tender Relationship Specialty Start Date End Date Name, MD Gregg [address] [place] [address] PCP - General Family Medicine 04/16/15 [facility] 05/23/24 documented as of this encounter
--- OUTSIDE RECORDS SUMMARY | 2024-11-02 10:54 | XMS_ITS | Encounter Summary ---
Author Organization [employer] Address [address]t [place] [address] Care Team Providers Care Support Services Tech Name Role Phone Name, Gregg DIAMOND Primary Care Provider [phone] Encounter Details Date Type Department Care Team (Late st Contact Info) Description 09/28/2024 Results Follow-Up [facility] [address] [place] [address] Maura Taylor, RN XR Clavicle Left Social [...] chart, last documented BD DEXA Axial in [facility] is 04/10/2022. Message forwarded to PCP for [...] 11:30 AM EDT Office Visit [facility] ADULT [facility] [address] [place] [address] Heath Dougherty DDS [address] [place] [address] documented as of this encounter Visit Diagnoses Not on filedocumented in this encounter Additional Health Concerns Assessment Noted Time PHQ-9 Depression Total Score: 1 07/18/19 11:20 AM EDT documented as of this encounter Care Teams Support Services Tech Relationship Specialty Start Date End Date Name, MD Gregg [address] [place] [address] PCP - General Family Medicine 04/16/15 [facility] 05/23/24 documented as of this encounter
--- OUTSIDE RECORDS SUMMARY | 2024-11-02 10:54 | XMS_ITS | Encounter Summary ---
Author Organization [employer] Address [address] [facility] 7t [place] [address] Care Team Providers Care Ordnance Artificer Helper Name Role Phone Name, Gregg DIAMOND Primary Care Provider [phone] Encounter Details Date Type Department Care Team (Latest Contact Info) Description 12/25/2019 Abstract [facility] CONVERSION[facility] Dental, Provider, DDS Social History [...] Description 11/07/2024 11:30 AM EDT Office Visit [facility] ADULT DENTAL [address] [place] [address] Heath Dougherty DDS [address] [place] [address] documented as of this encounter Visit Diagnoses Not on filedocumented in this encounter Care Teams Ordnance Artificer Helper Relationship Specialty Start Date End Date Name, MD Gregg [address] [place] [address] PCP - General Family Medicine 04/16/15 [facility] 05/23/24 documented as of this encounter
== END 2024-11-02 10:02 | disposition home or self-care (01) ==
PROVIDERS: PCP Internal Medicine Geriatric Medicine; Visit Provider Anesthesiology
DX: M54.16 Radiculopathy, lumbar region (principal); M51.369 Other intervertebral disc degeneration, lumbar region without mention of lumbar back pain or lower extremity pain; M46.1 Sacroiliitis, not elsewhere classified; M17.11 Unilateral primary osteoarthritis, right knee; M25.561 Pain in right knee; M53.3 Sacrococcygeal disorders, not elsewhere classified; G89.29 Other chronic pain
CPT/HCPCS: 99214

== ENCOUNTER → 2024-11-02 09:21 | Outpatient (BNVA) | payer OTHER, SELFPAY | PROVIDERS: PCP Internal Medicine Geriatric Medicine; Visit Provider Anesthesiology | DX: M54.16 Radiculopathy, lumbar region (principal); M51.369 Other intervertebral disc degeneration, lumbar region without mention of lumbar back pain or lower extremity pain; M46.1 Sacroiliitis, not elsewhere classified; M17.11 Unilateral primary osteoarthritis, right knee; M25.561 Pain in right knee; M53.3 Sacrococcygeal disorders, not elsewhere classified; G89.29 Other chronic pain | CPT/HCPCS: 99212 ==

== ENCOUNTER 2024-12-13 09:01 | Outpatient (REF) | payer OTHER, SELFPAY ==
--- NOTE | ~2024-12-13 | XR_ITS ---
EXAMINATION: XR SHOULDER, LEFT CLINICAL INFORMATION: M25.512 - Pain in left shoulder COMPARISON: Correlated to the left clavicle x-ray dated September 26, 2024 TECHNIQUE: AP external rotation, Grashey, scapular Y, and axillary views of the left shoulder. FINDINGS: Degenerative changes in the common clavicular joint and greater tuberosity of the humerus. No acute cortical disruption or malalignment. No soft tissue calcifications. No lytic or blastic lesions. XR/XR shoulder LT min 2V IMPRESSION: Degenerative changes without acute fracture or dislocation. Electronically signed by: Brennon Carrillo MD 12/13/2024 11:28 AM EDT
--- OUTSIDE RECORDS SUMMARY | 2024-12-14 10:03 | XMS_ITS | Encounter Summary ---
Author Organization [employer] Address [address] [place] [address] Care Team Providers Care Profile Grinder Name Role Phone Name, Gregg DIAMOND Primary Care Provider [phone] Reason for Visit * Reason Comments Med Refill Encounter Details Date Type Department Care Team ([facility] st Contact Info) Description 02/14/2024 Refill [facility] [address] [place] [address] Name, MD Gregg [address] [place] [address] Social History Tobacco Use Types Packs/Day Years [...] Visit [facility] ADULT DENTAL [address] [place] [address] Faye Mi 03/06/2025 9:00 AM EST Office Visit [facility] [address] [place] [address] Name, MD Gregg [address] [place] [address] documented as of this encounter Visit Diagnoses Not on filedocumented in this encounter Additional Health Concerns Assessment Noted Time PHQ-9 Depression Total Score: 0 09/01/19 24 10:42 AM EDT documented as of this encounter Care Teams Profile Grinder Relationship Specialty Start Date End Date Name, MD Gregg [address] [place] [address] PCP - General Family Medicine 04/16/15 [facility] 05/23/24 documented as of this encounter
--- OUTSIDE RECORDS SUMMARY | 2024-12-14 10:04 | XMS_ITS | Encounter Summary ---
Author Organization [employer] Address [address] 7t [place] [address] Care Team Providers Care Voice And Data Technician Name Role Phone Name, Gregg DIAMOND Primary Care Provider [phone] Reason for Visit * Reason Onset Date Comments Nurse Triage 11/27/2022 Encounter Details Date Type Department Care Team ([facility] st Contact Info) Description 11/27/2022 Telephone [facility] MEDICINE [address] [place] [address] Name, MD Gregg [address] [place] [address] Nurse Triage Social History Tobacco Use Types [...] t he electric, gas, oil or water [employer] threatened to shut off services in your [...] caller accepted this outcome Does not need solar energy advisor . documented in this encounter Plan of Treatment Upcoming Encounters Date Type Department Care Team (Late st Contact Info) Description 12/18/2024 1:30 PM EST Office Visit [facility] ADULT DENTAL [address] [place] [address] Faye Mi 03/06/2025 9:00 AM EST Office Visit [facility] MEDICINE [address] [place] [address] Name, MD Gregg [address] [place] [address] documented as of this encounter Visit Diagnoses Not on filedocumented in this encounter Additional Health Concerns Assessment Noted Time PHQ-9 Depression Total Score: 7 03/04/19 23 9:17 AM EST documented as of this encounter Care Teams Voice And Data Technician Relationship Specialty Start Date End Date Name, MD Gregg [address] [place] [address] PCP - General Family Medicine 04/16/15 [facility] 05/23/24 documented as of this encounter
--- OUTSIDE RECORDS SUMMARY | 2024-12-14 10:04 | XMS_ITS | Encounter Summary ---
Author Organization [employer] Address [address] [facility] 7t [place] [address] Care Team Providers Care Ladle Car Operator Name Role Phone Name, Gregg DIAMOND Primary Care Provider [phone] Reason for Visit * Reason Onset Date Comments PT1 07/27/2023 Encounter Details Date Type Department Care Team ([facility] st Contact Info) Description 07/27/2023 Telephone [facility] MEDICINE [address] [place] [address] Name, MD Gregg [address] [place] [address] PT1 Social History Tobacco Use Types Packs/Day [...] name: Dr. Carson Smith MD Facility Address: [address] [place] [address] [address], [facility], [address] Escort needed: Y/N: No Do you have a wheelchair: Y/N: No If yes- Manual or electric: Visits: 2-3 Next upcoming appt 08/03/23 documented in this encounter Plan of Treatment Upcoming Encounters Date Type Department Care Team (Late st Contact Info) Description 12/18/2024 1:30 PM EST Office Visit [facility] ADULT DENTAL [address] [place] [address] Faye Mi 03/06/2025 9:00 AM EST Office Visit [facility] MEDICINE [address] [place] [address] NameGregg MD [address] [place] [address] documented as of this encounter Visit Diagnoses Not on filedocumented in this encounter Additional Health Concerns Assessment Noted Time PHQ-9 Depression Total Score: 7 03/04/19 23 9:17 AM EST documented as of this encounter Care Teams Ladle Car Operator Relationship Specialty Start Date End Date NameGregg MD [address] [place] [phone] PCP - General Family Medicine 04/16/15 [facility] 05/23/24 documented as of this encounter
--- OUTSIDE RECORDS SUMMARY | 2024-12-14 10:04 | XMS_ITS | Encounter Summary ---
Author Organization [employer] Address [address] 7t [place] [address] Care Team Providers Care Epic Cupid Specialists Name Role Phone Name, Gregg DIAMOND Primary Care Provider [phone] Reason for Visit * Reason Onset Date Comments Dr. Calvin unable to use dentures 10/23/2024 Encounter Details Date Type Department Care Team ([facility] Contact Info) Description 10/23/2024 Telephone [facility] ADULT DENT[facility] [address] [place] [address] Ayan Calvin, DMD [address] [place] [address] Dr. Calvin unable to use dentures Social [...] Description 12/18/2024 1:30 PM EST Office Visit [facility] ADULT DENT[facility] [address] [place] [address] Faye Mi 03/06/2025 9:00 AM EST Office Visit [facility] MEDICINE [address] [place] [address] Name, MD Gregg [address] [place] [address] documented as of this encounter Visit Diagnoses Not on filedocumented in this encounter Additional Health Concerns Assessment Noted Time PHQ-9 Depression Total Score: 1 07/18/19 25 11:20 AM EDT documented as of this encounter Care Teams Epic Cupid Specialists Relationship Specialty Start Date End Date Name, MD Gregg [address] [place] [address] PCP - General Family Medicine 04/16/15 [facility] 05/23/24 documented as of this encounter
--- OUTSIDE RECORDS SUMMARY | 2024-12-14 10:04 | XMS_ITS | Encounter Summary ---
Author Organization [employer] Address [address] [facility] [address]t [place] [address] Care Team Providers Care Product Safety Officer Name Role Phone Name, Gregg DIAMOND Primary Care Provider [phone] Reason for Visit * Reason Onset Date Comments broken tooth to hold partial 02/28/2024 Encounter Details Date Type Department Care Team ([facility] st Contact Info) Description 02/28/2024 Telephone [facility] ADULT DENTAL [address] [place] [address] Ayan Calvin, DMD [address] [place] [address] broken tooth to hold partial Social History [...] Description 12/18/2024 1:30 PM EST Office Visit [facility] ADULT DENT[facility] [address] [place] [address] Faye Mi 03/06/2025 9:00 AM EST Office Visit [facility] [address] [place] [address] Name, MD Gregg [address] [place] [address] documented as of this encounter Visit Diagnoses Not on filedocumented in this encounter Additional Health Concerns Assessment Noted Time PHQ-9 Depression Total Score: 0 09/01/19 24 10:42 AM EDT documented as of this encounter Care Teams Product Safety Officer Relationship Specialty Start Date End Date Name, MD Gregg [address] [place] [address] PCP - General Family Medicine 04/16/15 [facility] 05/23/24 documented as of this encounter
--- OUTSIDE RECORDS SUMMARY | 2024-12-14 10:04 | XMS_ITS | Clinical Summary ---
Author Organization [employer] Address [address] [facility] [address] 7t [place] [address] Care Team Providers Care Chorus Master Name Role Phone Name, Gregg DIAMOND Primary Care Provider [phone] Allergies Active Allergy Reactions Criticality Noted Date [...] 2 sprays each nostril bid prn rhinorrhea, sinhala 15 mL 12/07/19 24 Active doxepin (SINEquan) [...] range. Recent lab work not available contacted [facility] for results. Will renew medications at [...] I will evaluate for congenital adrenal hyperplasia, Emmett syndrome, polycystic ovarian syndrome although that seems [...] Encounters Date Type Department Care Team Description 12/14/2024 Refill [facility] 230 [facility] [place] [address] Gregg Gandhi MD 12/08/2024 Telephone [facility] 230 [place] [address] Gregg Gandhi MD 12/08/[address] [address] Gregg Gandhi MD Durable Medical Equipment 12/01/[address] [address] Sweta Giraldo MA 12/01/2024 Telephone [facility] 230 [facility] [place] [address] Sweta Giraldo MA dec recalls 11/14/2024 9:00 AM EDT Office Visit [facility] ADULT DENTAL 230 [facility] [place] [address] Heath Dougherty, DDS 11/07/2024 Telephone [facility] ADULT [facility] 230 [place] [address] Heath Dougherty, DDS 11/03/2024 Refill [facility] 230 [place] [address] Gregg Gandhi MD Osteoporosis, unspecified osteoporosis type, unspecified pathological fracture presence 10/26/2024 3:00 PM EDT Office Visit [facility] ADULT DENTAL 230 [facility] [place] [address] Ayan Calvin DMD 10/23/2024 Telephone [facility] ADULT DENTAL [address] [place] [address], [place] [address] Yen unable to use dentures 10/20/2024 Telephone [place] [address] [place] [address] Gregg Gandhi MD Durable Medical Equipment 10/19/2024 9:00 AM EDT Office Visit [facility] ADULT DENTAL 230 [place] [address] Jimjamila Ayan, RAMIREZ 10/18/2024 2:45 PM EDT Office Visit [facility] MEDICINE [address] [place] [address] Gregg Gandhi MD Obesity (BMI 30-39.9) (Primary Dx) 10/18/2024 Travel 09/28/2024 Results Follow-Up [facility] [address] [place] [address] Maura Taylor, BRIAN XR Clavicle Left 09/27/2024 Refill [facility] [address] [place] [address] Gregg Gandhi MD Osteoporosis, unspecified osteoporosis type, unspecified pathological fracture presence 09/26/2024 1:30 PM EDT Office Visit [facility] [address] [place] [address] Nicole Dai, [place] Acute pain of left shoulder (Primary Dx) 09/26/2024 Travel 09/25/2024 Refill [facility] [address] [place] [address] Gregg Gandhi MD 09/25/2024 Telephone [facility] [address] [place] [address] Gregg Gandhi MD Nurse Triage 09/22/2024 Refill [facility] [address] [place] [address] Gregg Gandhi MD 09/20/2024 Refill [facility] [address] [place] [address] Gregg Gandhi MD Osteoporosis, unspecified osteoporosis type, [...] Description 12/18/2024 1:30 PM EST Office Visit [facility] ADULT DENTAL 230 [place] [address] Faye Mi 03/06/2025 9:00 AM EST Office Visit [facility] 230 [place] [address] Name, MD Gregg 230 [place] [address] Health Maintenance Due Date Last Done Comments [...] PM EDT Narrative 09/26/2024 3:29 PM EDT [address] [address] XRay Report Signed Patient: Mag Ayala MR#: [id number] 4 : 1960 Acct:[id number] Age/Sex: 63 / F ADM Date: 09/26/24 [facility] Dr: Nicole Dai ASPHALT LAYER Ordering Physician: Nicole Dai ASPHALT LAYER Date of Service: 09/26/24 Procedure(s): XR clavicle LT Accession Number(s): [id number] cc: Nicole Dai ASPHALT LAYER EXAMINATION: XR CLAVICLE LEFT HISTORY: pain COMPARISON: [...] 09/26/24 1526 DD/ 1420 TD/TT: 09/26/24 1450 Underwear Hemmer: Procedure Note Donotuseinterpreter, Image - 09/26/[address] [address] XRay Report Signed Patient: Riccardo AyalanMR#: [id number] 4 : 1960cct:[id number] Age/Sex: 63 / FADM Date: 09/26/24 Loc: HOE[facility]kaCX Attending Dr: Nicole Dai ASPHALT LAYER Ordering Physician: Nicole Dai ASPHALT LAYER Date of Service: 09/26/24 Procedure(s): XR clavicle LT Accession Number(s): [id number] cc: Nicole Dai ASPHALT LAYER EXAMINATION: XR CLAVICLE LEFT HISTORY: pain COMPARISON: [...] 09/26/24 1526 DD/ 1420 TD/TT: 09/26/24 1450 Underwear Hemmer: Nicole Dai NP IMG XR PROCEDURES Final Result * BI Mammogram Screening Tomosynthesis Bilateral (04/20/2023 12:05 PM EST) Anatomical Region Laterality Modality Breast Bilateral Mammography 04/20/2023 12:0 5 PM EST Narrative 05/05/2023 8:29 AM EDT [facility] [address] [place], [place] [address] Mammography Report Signed Patient: Mag Ayala MR#: [id number] 4 : 1960 Acct:[id number] Age/Sex: 62 / F ADM Date: 04/20/23 Loc: HO.MAMMO Attending Dr: Gre[place] Gandhi MD Ordering Physician: Gregg Gandhi MD Results: 1Negative Date of Service: 04/20/23 Follow Up: 1 Year From Orig ina Mammogram Procedure(s): MM tomosynthesis screening BI Accession Number(s): [id number] cc: Gregg Gandhi MD EXAMINATION: MM SCREENING [...] in OV> 05/05/23 0825 DD/ 1205 TD/TT: Underwear Hemmer: Procedure Note Donotuseinterpreter, Image - 05/05/2023 [facility] [address] [place] [address] Mammography Report Signed Patient: Eulalia Ayala#: [id number] 4 : 9Acct:[id number] Age/Sex: 62 / FADM Date: 04/20/23 Loc: MAMMO Attending Dr: Gregg Gandhi MD Ordering Physician: Gregg Gandhi MDResults: 1Negative Date of Service: 04/20/23Follow Up: 1 Year From Orig inal Mammogram Procedure(s): MM tomosynthesis screening BI Accession Number(s): [id number] cc: Gregg Gandhi MD EXAMINATION: MM SCREENING [...] in OV> 05/05/23 0825 DD/ 1205 TD/TT: Underwear Hemmer: Gregg Name IMG BI PROCEDURES Final Result * Hm Colonoscopy (08/08/2020 1:49 PM EDT) Colonoscopy Normal Normal Narrative Anastasia Dykes - 08/08/2020 1:49 PM EDT Recommended 5 year follow up [facility] Provider HEALTH MAINTENANCE Final Result [...] LDL-C. Darek MADISON et al. BOO. 2013;310(19): 8632-3001 (http://education.[employer].com/faq/TRY963) Non-HDL Cholesterol 125 <130 mg/dL (calc) [facility] Comment: For patients with diabetes plus 1 major ASCVD risk factor, treating to a non-HDL-C goal of <100 mg/dL (LDL-C of <70 mg/dL) is considered a therapeutic option. Triglycerides 80 <150 mg/dL [facility] 05/20/2020 9:32 AM EDT us Gregg Gadnhi MD LAB BLOOD ORDERABLES Final Resul t [facility] [address] from Last 3 Months or Most Recently Relevant to Health Maintenance Insurance [facility] STANDARD [facility] LONG-TERM OPTIONS (O D-SNP) DENTAL [facility] Care Teams Chorus Master Relationship Specialty Start Date End Date Name, MD Gregg [address] [place] [address] PCP - General Family Medicine 04/16/15 [facility] 05/23/24
--- OUTSIDE RECORDS SUMMARY | 2024-12-14 10:04 | XMS_ITS | Encounter Summary ---
Author Organization [employer] Address [address] [facility] [address] 7t [place] [address] Care Team Providers Care Blind Teacher Name Role Phone Name, Gregg DIAMOND Primary Care Provider [phone] Reason for Visit * Reason Comments Med Refill Encounter Details Date Type Department Care Team ([facility] st Contact Info) Description 11/16/2023 Refill [facility] 230 [place] [address] Yennifer Ramirez MD [address] [place] [address] Flu-like symptoms Social History Tobacco Use Types [...] Description 12/18/2024 1:30 PM EST Office Visit [facility] ADULT DENTAL [address] [place] [address] Faye Mi 03/06/2025 9:00 AM EST Office Visit [facility]ICINE [address] [place] [address] NameGregg MD [address] [place] [address] documented as of this encounter Visit Diagnoses Diagnosis Flu-like symptoms documented in this encounter Additional Health Concerns Assessment Noted Time PHQ-9 Depression Total Score: 0 09/01/19 24 10:42 AM EDT documented as of this encounter Care Teams Blind Teacher Relationship Specialty Start Date End Date NameGregg MD [address] [place] [address] PCP - General Family Medicine 04/16/15 [facility] 05/23/24 documented as of this encounter
--- OUTSIDE RECORDS SUMMARY | 2024-12-14 10:04 | XMS_ITS | Encounter Summary ---
Author Organization [employer] Address [address] [facility] [address] 7t [place] [address] Care Team Providers Care Auto Club Travel Counselor Name Role Phone Name, Gregg DIAMOND Primary Care Provider [phone] Reason for Visit * Reason Comments Med Refill Encounter Details Date Type Department Care Team ([facility] st Contact Info) Description 08/03/2023 Refill [facility] 230 [place] [address] Name, MD Gregg 230 [place] [address] Social History Tobacco Use Types Packs/Day Years [...] 12/18/2024 1:30 PM EST Office Visit [facility] ADULT DENTAL [address] [place] [address] Faye Mi 03/06/2025 9:00 AM EST Office Visit [facility] [address] [place] [address] Name, MD Gregg [address] [place] [address] documented as of this encounter Visit Diagnoses Not on filedocumented in this encounter Additional Health Concerns Assessment Noted Time PHQ-9 Depression Total Score: 7 03/04/19 23 9:17 AM EST documented as of this encounter Care Teams [employer] Travel Counselor Relationship Specialty Start Date End Date Name, MD Gregg [address] [place] [address] PCP - General Family Medicine 04/16/15 [facility] 05/23/24 documented as of this encounter
--- OUTSIDE RECORDS SUMMARY | 2024-12-14 10:04 | XMS_ITS | Encounter Summary ---
Author Organization [employer] Address [address] [facility] [address] 7t [place] [address] Care Team Providers Care Abstract Maker Name Role Phone Name, Gregg DIAMOND Primary Care Provider [phone] Reason for Visit * Reason Comments Med Refill Encounter Details Date Type Department Care Team ([facility] st Contact Info) Description 06/07/2024 Refill [facility] MED[facility]INE 230 [place] [address] Name, MD Gregg 230 [place] [address] Social History Tobacco Use Types Packs/Day Years [...] Description 12/18/2024 1:30 PM EST Office Visit [facility] ADULT DENTAL 230 [place] [address] Faye Mi 03/06/2025 9:00 AM EST Office Visit [facility] MEDICINE 230 [place] [address] Name, MD Gregg [address] [place] [address] documented as of this encounter Visit Diagnoses Not on filedocumented in this encounter Additional Health Concerns Assessment Noted Time PHQ-9 Depression Total Score: 0 09/01/19 24 10:42 AM EDT documented as of this encounter Care Teams Abstract Maker Relationship Specialty Start Date End Date Name, MD Gregg [address] [place] [address] PCP - General Family Medicine 04/16/15 [facility] 05/23/24 documented as of this encounter
--- OUTSIDE RECORDS SUMMARY | 2024-12-14 10:04 | XMS_ITS | Encounter Summary ---
Author Organization [employer] Address [address] [facility] [address] 7t [place] [address] Care Team Providers Care Insurance Sales Specialist Name Role Phone Name, Gregg DIAMOND Primary Care Provider [phone] Reason for Visit * Reason Comments Med Change Request Encounter Details Date Type Department Care Team ([facility] Contact Info) Description 07/26/2024 Refill [facility] MED[facility] 230 [place] [address] Name, MD Gregg 230 [place] [address] Social History Tobacco Use Types Packs/Day Years [...] Description 12/18/2024 1:30 PM EST Office Visit [facility] ADULT DENTAL 230 [place] [address] Faye Mi 03/06/2025 9:00 AM EST Office Visit [facility] MEDICINE 230 [place] [address] Name, MD Gregg [address] [place] [address] documented as of this encounter Visit Diagnoses Not on filedocumented in this encounter Additional Health Concerns Assessment Noted Time PHQ-9 Depression Total Score: 1 07/18/19 11:20 AM EDT documented as of this encounter Care Teams Insurance Sales Specialist Relationship Specialty Start Date End Date Name, MD Gregg [address] [place] [address] PCP - General Family Medicine 04/16/15 [facility] 05/23/24 documented as of this encounter
--- OUTSIDE RECORDS SUMMARY | 2024-12-14 10:04 | XMS_ITS | Encounter Summary ---
Author Organization [employer] Address [address] [facility] [address] 7t [place] [address] Care Team Providers Care Dandy Tender Name Role Phone Name, Gregg DIAMOND Primary Care Provider [phone] Reason for Visit * Reason Onset Date Comments PT1 02/25/2023 Encounter Details Date Type Department Care Team ([facility] st Contact Info) Description 02/25/2023 Telephone [facility] 230 [place] [address] Name, MD Gregg 230 [place] [address] PT1 Social History Tobacco Use Types Packs/Day [...] - valid through 06/2023 [facility] neurology - [id number] authorized Dr Chakraborty - [id number] pending [facility] Gen Surg - [id number] authorized [facility] - [id number] authorized Renal & Trans - [id number] authorized ENT - [id number] pending [facility] medical office - [id number] pending * Telephone Encounter - Cameron Su - 02/25/2023 4:29 PM EST PT1 needed Date: N/A Time: N/A Visits: 2 or 3 monthly Address: [address] [facility] Facility: [facility] Cardiovascular Wheel Chair: No Mural Painter Needed: No PT1 needed Date: N/A Time: N/A Visits: 2 or 3 Monthly Address: [address] [facility] Facility: [facility] Neurology Wheel No Mural Painter Needed: No PT1 needed Date: N/A Time: N/A Visits: 2 or 3 Monthly Address: [address] [facility] Facility: Dr Chakraborty Wheel Chair: No Mural Painter Needed: No PT1 needed Date: N/A Time: N/A Visits: 2 or 3 Monthly Address: [address] [place] [address] dr LambertRafy [place] Facility: [facility] General Surgery Wheel Chair: No Mural Painter Needed: No PT1 needed Date: N/A Time: N/A Visits: 2 or 3 Monthly Address: [address] [place] [address] Facility: [facility] Wheel Chair: No Mural Painter Needed: No PT1 needed Date: N/A Time: N/A Visits: 2 or 3 monthly Address: [address] [facility] Facility: [facility] Wheel Chair: No Mural Painter Needed: No PT1 needed Date: N/A Time: N/A Visits: 2 or 3 monthly Address: [address] [facility] Facility: [facility] Wheel Chair: No Mural Painter Needed: No PT1 needed Date: N/A Time: N/A Visits: 2 or 3 Monthly Address: [address] [facility] [address] Cesia DESOUZA Facility: [facility] Office Wheel Chair: No Mural Painter Needed: No PT1 needed Date: N/A Time: N/A Visits: 2 or 3 Monthly Address: [address] [place] [address] Facility: [facility] Wheel Chair: No Mural Painter Needed: No documented in this encounter Plan of Treatment Upcoming Encounters Date Type Department Care Team (Late st Contact Info) Description 12/18/2024 1:30 PM EST Office Visit [facility] ADULT DENTAL 230 [place] [address] Faye Mi 03/06/2025 9:00 AM EST Office Visit [facility] 230 [place] [address] Name, MD Gregg [address] [place] [address] documented as of this encounter Visit Diagnoses Not on filedocumented in this encounter Additional Health Concerns Assessment Noted Time PHQ-9 Depression Total Score: 7 03/04/19 23 9:17 AM EST documented as of this encounter Care Teams Dandy Tender Relationship Specialty Start Date End Date Name, MD Gregg 230 [place] [address] PCP - General Family Medicine 04/16/15 [facility] 05/23/24 documented as of this encounter
--- OUTSIDE RECORDS SUMMARY | 2024-12-14 10:04 | XMS_ITS | Encounter Summary ---
Author Organization [employer] Address [address] [facility] [address] [address] 7t [place] [address] Care Team Providers Care Stores Naval Name Role Phone Name, Gregg DIAMOND Primary Care Provider [phone] Encounter Details Date Type Department Care Team (Late st Contact Info) Description 10/21/2023 Telephone [facility] ADULT DENTAL 230 [place] [address] Ayan Calvin, DMD 230 [place] [address] Social History Tobacco Use Types Packs/Day Years [...] 1:30 PM EST Office Visit [facility] ADULT DENTAL 230 [place] [address] Faye Mi 03/06/2025 9:00 AM EST Office Visit [facility] MEDICINE [address] [place] [address] NameGregg MD [address] [place] [address] documented as of this encounter Visit Diagnoses Not on filedocumented in this encounter Additional Health Concerns Assessment Noted Time PHQ-9 Depression Total Score: 0 09/01/19 24 10:42 AM EDT documented as of this encounter Care Teams Stores Naval Relationship Specialty Start Date End Date Gregg Gandhi MD [address] [place] [address] PCP - General Family Medicine 04/16/15 [facility] 05/23/24 documented as of this encounter
--- OUTSIDE RECORDS SUMMARY | 2024-12-14 10:04 | XMS_ITS | Continuity of Care Document ---
Author Name [employer], Medical Address [address] [place] [address] Organization Unknown Address [address] [place] [address] Medications No known medications Problems No known problems
--- OUTSIDE RECORDS SUMMARY | 2024-12-14 10:04 | XMS_ITS | Encounter Summary ---
Author Organization [employer] Address [address] [facility] [address] 7t [place] [address] Care Team Providers Care Coupon Collection Clerk Name Role Phone Name, Gregg DIAMOND Primary Care Provider [phone] Reason for Visit * Reason Onset Date Comments clarification of tx 08/09/2023 Encounter Details Date Type Department Care Team ([facility] st Contact Info) Description 08/09/2023 Telephone [facility] ADULT DENTAL 230 [place] [address] Ayan Calvin, DMD 230 [place] [address] clarification of tx Social History Tobacco Use [...] you to call her. She went to [facility] for RCT today but is [...] 12/18/2024 1:30 PM EST Office Visit [facility] ADULT DENTAL 230 [place] [address] Faye Mi 03/06/2025 9:00 AM EST Office Visit [facility] MEDICINE 230 [place] [address] Name, MD Gregg 230 [place] [address] documented as of this encounter Visit Diagnoses Not on filedocumented in this encounter Additional Health Concerns Assessment Noted Time PHQ-9 Depression Total Score: 7 03/04/19 23 9:17 AM EST documented as of this encounter Care Teams Coupon Collection Clerk Relationship Specialty Start Date End Date NameGregg MD [address] [place] [address] PCP - General Family Medicine 04/16/15 [facility] 05/23/24 documented as of this encounter
--- OUTSIDE RECORDS SUMMARY | 2024-12-14 10:04 | XMS_ITS | Encounter Summary ---
Author Organization [employer] Address [address] [facility] [address] 7t [place] [address] Care Team Providers Care Building Dismantler Name Role Phone Name, Gregg DIAMOND Primary Care Provider [phone] Reason for Visit * Reason Comments Med Refill Encounter Details Date Type Department Care Team ([facility] st Contact Info) Description 07/13/2023 Refill [facility] MEDIC[facility] 230 [place] [address] Ban Granados FNP 230 [place] [address] Social History Tobacco Use Types Packs/Day Years [...] the past 12 months, has t he [employer], oil or water [employer] threatened to shut off services in your [...] Pt [facility] the [facility] asking for refills on Wegomy meds. She wants Dr. 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 07/13/23 documented in this encounter Plan of Treatment Upcoming Encounters Date Type Department Care Team (Late st Contact Info) Description 12/18/2024 1:30 PM EST Office Visit [facility] ADULT DENTAL 230 [place] [address] Faye Mi 03/06/2025 9:00 AM EST Office Visit [facility] MED[facility] 230 [place] [address] Name, MD Gregg 230 [place] [address] documented as of this encounter Visit Diagnoses Not on filedocumented in this encounter Additional Health Concerns Assessment Noted Time PHQ-9 Depression Total Score: 7 03/04/19 23 9:17 AM EST documented as of this encounter Care Teams Building Dismantler Relationship Specialty Start Date End Date Name, MD Gregg 230 [place] [address] PCP - General Family Medicine 04/16/15 [facility] 05/23/24 documented as of this encounter
--- OUTSIDE RECORDS SUMMARY | 2024-12-14 10:04 | XMS_ITS | Encounter Summary ---
Author Organization [employer] Address [address] [facility] [address] 7[address] [place] [address] Care Team Providers Care Major Sales Associate Name Role Phone Name, Gregg DIAMOND Primary Care Provider [phone] Reason for Visit * Reason Comments Med Refill Encounter Details Date Type Department Care Team ([facility] st Contact Info) Description 12/14/2024 Refill [facility] MED[facility]INE 230 [place] [address] Name, MD Gregg 230 [place] [address] Social History Tobacco Use Types Packs/Day Years [...] 1:30 PM EST Office Visit [facility] ADULT DENTAL 230 [place] [address] Faye Mi 03/06/2025 9:00 AM EST Office Visit [facility] MED[facility]INE 230 [place] [address] NameGregg MD 230 [place] [address] documented as of this encounter Visit Diagnoses Not on filedocumented in this encounter Additional Health Concerns Assessment Noted Time PHQ-9 Depression Total Score: 1 07/18/19 11:20 AM EDT documented as of this encounter Care Teams Major Sales Associate Relationship Specialty Start Date End Date Name, MD Gregg [address] [place] [address] PCP - General Family Medicine 04/16/15 [facility] 05/23/24 documented as of this encounter
--- OUTSIDE RECORDS SUMMARY | 2024-12-14 10:04 | XMS_ITS | Encounter Summary ---
Author Organization [employer] Address [address] 7t [place] [address] Care Team Providers Care Ultrasonic Welding Machine Operator Name Role Phone Name, Gregg DIAMOND Primary Care Provider [phone] Encounter Details Date Type Department Care Team (Late st Contact Info) Description 07/26/2024 Orders Only [facility] [address] [place], [place] [phone] Joann Angel NP 230 [place] [address] Obesity (BMI 30-39.9) (Primary Dx) Social History [...] Description 12/18/2024 1:30 PM EST Office Visit [facility] ADULT DENTAL [address] [place] [address] Faye Mi 03/06/2025 9:00 AM EST Office Visit [facility] [address] [place] [address] NameGregg MD [address] [place] [address] documented as of this encounter Visit Diagnoses Diagnosis Obesity (BMI 30-39.9)- Primary documented in this encounter Additional Health Concerns Assessment Noted Time PHQ-9 Depression Total Score: 1 07/18/19 11:20 AM EDT documented as of this encounter Care Teams Ultrasonic Welding Machine Operator Relationship Specialty Start Date End Date NameGregg MD [address] [place] [address] PCP - General Family Medicine 04/16/15 [facility] 05/23/24 documented as of this encounter
--- OUTSIDE RECORDS SUMMARY | 2024-12-14 10:04 | XMS_ITS | Encounter Summary ---
Author Organization [employer] Address [address] [facility] 7t [place] [address] Care Team Providers Care Industrial Health And Safety Professor Name Role Phone Name, Gregg DIAMOND Primary Care Provider [phone] Reason for Visit * Reason Onset Date Comments Request For Order(s) 07/30/2023 Encounter Details Date Type Department Care Team ([facility] st Contact Info) Description 07/30/[address] [facility] 230 [place] [address] Name, MD Gregg 230 [place] [address] Request For Order(s) Social History Tobacco Use [...] done. Please clarify Please contact pt at [phone] (No freelance interpreter/translator needed) documented in this encounter Plan of Treatment Upcoming Encounters Date Type Department Care Team (Late st Contact Info) Description 12/18/2024 1:30 PM EST Office Visit [facility] ADULT DENTAL [address] [place] [address] Faye Mi 03/06/2025 9:00 AM EST Office Visit [facility] [address] [place] [address] Name, MD Gregg [address] [place] [address] documented as of this encounter Visit Diagnoses Not on filedocumented in this encounter Additional Health Concerns Assessment Noted Time PHQ-9 Depression Total Score: 7 03/04/19 23 9:17 AM EST documented as of this encounter Care Teams Industrial Health And Safety Professor Relationship Specialty Start Date End Date NameGregg MD [address] [place] [address] PCP - General Family Medicine 04/16/15 [facility] 05/23/24 documented as of this encounter
--- OUTSIDE RECORDS SUMMARY | 2024-12-14 10:05 | XMS_ITS | Encounter Summary ---
Author Organization [employer] Address [address] [facility] [address] 7t [place] [address] Care Team Providers Care Nursing Center Tutor Name Role Phone Name, Gregg DIAMOND Primary Care Provider [phone] Reason for Visit * Reason Onset Date Comments Nurse Triage 05/04/2024 Encounter Details Date Type Department Care Team ([facility] st Contact Info) Description 05/04/2024 Telephone [facility] 230 [place] [address] Name, MD Gregg 230 [place] [address] Nurse Triage Social History Tobacco Use Types [...] information. Do see mention of hemorrhoids. No hand i tube bender needed as this field underwriter speaks Macedonian. Call returned to Mag Ayala to triage [...] to perform UA. Pt requesting referral to Outboard System Operator per recommendation from Respite Worker. Pt advised will forward note to Provider [...] acuity questions The caller accepted this outcome. [phone] (slovenian) pt states knows Turkmen but there are some words she can't say or understand. Tc from pt stating visited the baker bench today, and he told pt should ask her PCP for a referral for a prosthetic because pt has several purple veins in the anus. Pt states this hasn't happenedto her before. documented in this encounter Plan of Treatment Upcoming Encounters Date Type Department Care Team (Late st Contact Info) Description 12/18/2024 1:30 PM EST Office Visit [facility] ADULT DENTAL 230 [place] [address] Faye Mi 03/06/2025 9:00 AM EST Office Visit [facility] 230 [place] [address] Name, MD Gregg 230 [place] [address] documented as of this encounter Visit Diagnoses Not on filedocumented in this encounter Additional Health Concerns Assessment Noted Time PHQ-9 Depression Total Score: 0 09/01/19 24 10:42 AM EDT documented as of this encounter Care Teams Nursing Center Tutor Relationship Specialty Start Date End Date Name, MD Gregg 230 [place] [address] PCP - General Family Medicine 04/16/15 [facility] 05/23/24 documented as of this encounter
--- OUTSIDE RECORDS SUMMARY | 2024-12-14 10:05 | XMS_ITS | Encounter Summary ---
Author Organization [employer] Address [address] [facility] 7t [place] [address] Care Team Providers Care Mural Artist Name Role Phone Name, Gregg DIAMOND Primary Care Provider [phone] Reason for Visit * Reason Comments Med Refill Encounter Details Date Type Department Care Team ( st Contact Info) Description 10/06/2022 Refill [facility] [address] [place] [address] Name, MD Gregg [address] [place] [address] Osteoporosis, unspecified osteoporosis type, unspecified pathological fracture [...] 12/18/2024 1:30 PM EST Office Visit [facility] ADULT DENTAL [address] [place] [address] [phone] Faye Mi 03/06/2025 9:00 AM EST Office Visit [facility] [address] [place] [address] [phone] Name, MD Gregg 230 [place] [address] documented as of this encounter Visit Diagnoses Diagnosis Osteoporosis, unspecified osteoporosis type, unspecified pathological fracture presence documented in this encounter Additional Health Concerns Assessment Noted Time PHQ-9 Depression Total Score: 7 03/04/19 23 9:17 AM EST documented as of this encounter Care Teams Mural Artist Relationship Specialty Start Date End Date Name, [place] [address] PCP - General Family Medicine 04/16/15 [facility] 05/23/24 documented as of this encounter
--- OUTSIDE RECORDS SUMMARY | 2024-12-14 10:05 | XMS_ITS | Encounter Summary ---
Author Organization [employer] Address [address] [facility] [address] 7t [place] [address] Care Team Providers Care Property Consultant Name Role Phone Name, Gregg DIAMOND Primary Care Provider [phone] Reason for Visit * Reason Onset Date Comments Appointment Request 05/24/2024 Encounter Details Date Type Department Care Team ([facility] Contact Info) Description 05/24/2024 Telephone [facility] 230 [place] [address] Name, MD Gregg 230 [place] [address] Appointment Request Social History Tobacco Use Types [...] the phone she will. Contact pt at [phone] documented in this encounter Plan of Treatment Upcoming Encounters Date Type Department Care Team (Late st Contact Info) Description 12/18/2024 1:30 PM EST Office Visit [facility] ADULT DENT[facility] 230 [place] [address] Faye Mi 03/06/2025 9:00 AM EST Office Visit [facility] [address] [place] [address] Name, MD Gregg [address] [place] [address] documented as of this encounter Visit Diagnoses Not on filedocumented in this encounter Additional Health Concerns Assessment Noted Time PHQ-9 Depression Total Score: 0 09/01/19 24 10:42 AM EDT documented as of this encounter Care Teams Property Consultant Relationship Specialty Start Date End Date Name, MD Gregg 230 [place] [address] PCP - General Family Medicine 04/16/15 [facility] 05/23/24 documented as of this encounter
--- OUTSIDE RECORDS SUMMARY | 2024-12-14 10:05 | XMS_ITS | Encounter Summary ---
Author Organization [employer] Address [address] [facility] 7t [place] [address] Care Team Providers Care Mud Temperer Name Role Phone Name, Gregg DIAMOND Primary Care Provider [phone] Reason for Visit * Reason Onset Date Comments Medication Question 09/04/2024 Encounter Details Date Type Department Care Team ([facility] Contact Info) Description 09/04/2024 Telephone [facility] 230 [place] [address] Name, MD Gregg 230 [place] [address] Medication Question Social History Tobacco Use Types [...] increase dosage of zepbound. Contact pt at [phone] for any questions. documented in this encounter Plan of Treatment Upcoming Encounters Date Type Department Care Team (Late st Contact Info) Description 12/18/2024 1:30 PM EST Office Visit [facility] ADULT [facility] 230 [place] [address] Faye Mi 03/06/2025 9:00 AM EST Office Visit [facility] 230 [place] [address] NameGregg MD 230 [place] [address] documented as of this encounter Visit Diagnoses Not on filedocumented in this encounter Additional Health Concerns Assessment Noted Time PHQ-9 Depression Total Score: 1 07/18/19 25 11:20 AM EDT documented as of this encounter Care Teams Mud Temperer Relationship Specialty Start Date End Date NameGregg MD 230 [place] [address] PCP - General Family Medicine 04/16/15 [facility] 05/23/24 documented as of this encounter
--- OUTSIDE RECORDS SUMMARY | 2024-12-14 10:05 | XMS_ITS | Encounter Summary ---
Author Organization [employer] Address [address] [facility] 7t [place] [address] Care Team Providers Care Mattress Weaver Name Role Phone Name, Gregg DIAMOND Primary Care Provider [phone] Reason for Visit * Reason Onset Date Comments ER Follow-up 05/02/2024 Nurse Triage 05/02/2024 Encounter Details Date Type Department Care Team ([facility] st Contact Info) Description 05/02/2024 Telephone [facility] 230 [place] [address] Name, MD Gregg 230 [place] [address] ER Follow-up; Nurse Triage Social History Tobacco [...] of the rollator walker. TC placed to [facility] pharamcyregarding the fosamax. Lori states the medication must stay in its original packaging and cannot be added to [employer]. Per Malaika Hawknis RN note (see below), pt would like [...] in June as she will leaving for [place] at the beginning of June Pt requesting a call from PCP. Lead Engineer found telehealth visit in PCP schedule. Pt [...] find out more information. TC placed to [facility] pharamcy regardingthe fosamax. Lori states the [...] states that she went to the [facility] ED yesterday due to right leg pain and right knee isswollen. Pt. Was also having throbbing pain in left side of groin. [facility] ED did not find any blood clot in leg and Xray of left hip and pelvis-negative. ED is recommending referral to Captain Assistant according to pt. Pt does not [...] that she remembers. Pt. Needs referral to Captain Assistant. Offered pt. Appt. Today but, pt. Only wants to speak to pcp and is requesting appt. With PCP only or call from PCP to discuss updates and needs. Please get back to pt. To let her know if any of these needs can be met Will send request to Clinical coordinators to get [facility] ED report from yesterday into pt. Chart. Multiple needs. * Telephone Encounter - Shubham Booth - 05/02/2024 10:20 AM EDT Patient calling to report ED visit on : Date: 05/01/2024 Hospital: [facility] Seen for: Knee pain [...] Description 12/18/2024 1:30 PM EST Office Visit [facility] ADULT DENTAL [address] [place] [address] Faye Mi 03/06/2025 9:00 AM EST Office Visit [facility] 230 [place] [address] Name, MD Gregg [address] [place] [address] documented as of this encounter Visit Diagnoses Not on filedocumented in this encounter Additional Health Concerns Assessment Noted Time PHQ-9 Depression Total Score: 0 09/01/19 10:42 AM EDT documented as of this encounter Care Teams Mattress Weaver Relationship Specialty Start Date End Date Gregg Gandhi MD [address] [place] [address] PCP - General Family Medicine 04/16/15 [facility] 05/23/24 documented as of this encounter
--- OUTSIDE RECORDS SUMMARY | 2024-12-14 10:05 | XMS_ITS | Encounter Summary ---
Author Organization [facility] Address [address] [place] [address] Encounters * CPT with Medical instED at [facility] on 2024-10-23 { reasonForRequest : Pt reporting a fall from last week on her left side> reporting a \ humongous bruise\ today during her shower>notes it is painful and starting to feel pain in her hand , patientReports : Weakness with fall, able to move all extremities , denies :[ Falls with head strike and LOC , Falls from a standing position, no LOC, patient is amnestic to the event , Falls with isolated injury and deformity noted to limb , Falls with inability to move post fall , Cool extremities after fall or injury ], chiefComplaints :&qu ot;Falls , pmh : Anxiety Disorder, Asthma, Chronic Pain, Depression, Osteoporosi s, Hypothyroidism, Gastroesophageal Reflux Disease (GERD), Sleep Apnea, Inflammatory Bowel Disease (Crohn's Disease, Ulcerative Colitis), Cancer , allergies : Tramadol, Nubain&quot ;, otherAllergies :null, painAssessment : Level 8 out of 10 , vis itOutcome : , additionalComments : 63 y.o female complains of Falls\n\nPatient self-reporting symptoms:\nFell on 10/19 - fell from door to living room - denies head strike or LOC \nBruise is size of a serving plate - felt pain since fall but just noticed the bruise today\Sarthak the middle of the bruise very dark\nHas some carpet rash from fall \nFell on right side but bruising is on the left side - flank area \nDenies bumping into something on that left side \nReports knees collapsing from time to time \nNot on anticoagulation, says she was prescribed ASA but doesn't\nDoes not have active cancer is not on any treatment - past kidney cancer \nRequesting instED visit \n\nI provided information on the mobile health provider response time and advised the patient and/or caregiver to monitor reported signs and symptoms. I discussed the warning signs of when to seek emergency care. } Pt seen for primary complaint of bruise secondary to a fall. Met yang x 4 Pt inside her residence. Pt ambulating under her own power without difficulty. Pt reports a fall from standing 4 days ago. Pt reports she lost her balance and fell, denies any dizziness, syncope or other reason that caused thefall. Pt reports she did not strike her [...] complaints. Pt denies any use of anticoagulants. Ptexam shows no further findings. VS as noted. [facility] contacted and advised of Pt complaint, presentation and exam findings. [facility] has no further orders at this time. Pt has no further questions or concerns. Pt advised of red flags to be aware of and to seek medical attention should they arise. Call closed. IV_(FLUIDS_AND/OR_MEDICATION), MEDICATION_IM, EKG, GLUCOSE, ORTHOSTATIC_VITAL_SIGNS Written by Medical instED on 2024-10-23
--- OUTSIDE RECORDS SUMMARY | 2024-12-14 10:05 | XMS_ITS | Encounter Summary ---
Author Organization [employer] Address [address] [facility] [facility] [address] 7t [place] [address] Care Team Providers Care Hat Ironer Name Role Phone Name, Gregg DIAMOND Primary Care Provider [phone] Reason for Visit * Reason Onset Date Comments Appointment Request 04/18/2024 Encounter Details Date Type Department Care Team ([facility] st Contact Info) Description 04/18/2024 Telephone [facility] [address] [place] [address] Name, MD Gregg 230 [place] [address] Appointment Request Social History Tobacco Use Types [...] PCP. Pt states will be out of [place] from June 18- as she has an appointment with the oncologist on the and with the neurosurgeon on June 27. documented in this encounter Plan of Treatment Upcoming Encounters Date Type Department Care Team (Late st Contact Info) Description 12/18/2024 1:30 PM EST Office Visit [facility] ADULT DENTAL [address] [place] [address] Faye Mi 03/06/2025 9:00 AM EST Office Visit [facility] [address] [place] [address] Name, MD Gregg 230 [place] [address] documented as of this encounter Visit Diagnoses Not on filedocumented in this encounter Additional Health Concerns Assessment Noted Time PHQ-9 Depression Total Score: 0 09/01/19 24 10:42 AM EDT documented as of this encounter Care Teams Hat Ironer Relationship Specialty Start Date End Date Name, MD Gregg 230 [place] [address] PCP - General Family Medicine 04/16/15 [facility] 05/23/24 documented as of this encounter
--- OUTSIDE RECORDS SUMMARY | 2024-12-14 10:05 | XMS_ITS | Encounter Summary ---
Author Organization [employer] Address [address] [facility] 7t [place] [address] Care Team Providers Care Reimbursement Representative Name Role Phone Name, Gregg DIAMOND Primary Care Provider Encounter Details Date Type Department Care Team (Late st Contact Info) Description 07/20/2022 Abstract [facility]INE [address] [place] [address] NameGregg MD [address] [place] [address] Social History Tobacco Use Types Packs/Day Years [...] Visit [facility] ADULT DENTAL [address] [place] [address] [phone] Faye Mi 03/06/2025 9:00 AM EST Office Visit [facility] MED[facility]INE [address] [place] [address] [phone] Gregg Gandhi MD [address] [place] [address] [phone] documented as of this encounter Procedures Procedure [...] documented as of this encounter Care Teams Reimbursement Representative Relationship Specialty Start Date End Date Name, MD Gregg 230 [place] [address] PCP - General Family Medicine 04/16/15 [facility] 05/23/24 documented as of this encounter
--- OUTSIDE RECORDS SUMMARY | 2024-12-14 10:05 | XMS_ITS | Encounter Summary ---
Author Organization [employer] Address [address] [facility] 7t [place] [address] Care Team Providers Care Animal Caregiver Name Role Phone Name, Gregg DIAMOND Primary Care Provider [phone] Encounter Details Date Type Department Care Team (Latest Contact Info) Description 12/25/2019 Abstract [facility], Provider, DDS Social History Tobacco [...] Description 12/18/2024 1:30 PM EST Office Visit [facility] ADULT DENTAL [address] [place] [address] Faye Mi 03/06/2025 9:00 AM EST Office Visit [facility] 230 [place] [address] NameGregg MD 230 [place] [address] documented as of this encounter Visit Diagnoses Not on filedocumented in this encounter Care Teams Animal Caregiver Relationship Specialty Start Date End Date Gregg Gandhi MD [address] [place] [address] PCP - General Family Medicine 04/16/15 [facility] 05/23/24 documented as of this encounter
--- OUTSIDE RECORDS SUMMARY | 2024-12-14 10:05 | XMS_ITS | Clinical Summary ---
Author Organization [facility] Address [address] [place] [address] [place] [address] Phone Care Team Providers Care Progress Man Name Role Phone Name, Gregg DIAMOND Primary Care Provider [phone] Allergies Active Allergy Reactions Criticality Noted Date [...] directed by MD Active lorcaserin 20 mg [id number]:St atus post bariatric surgery Take 20 mg [...] 02/20/19 Active calcium carb/D3/magnesium/ zinc (CALCIUM CARB-D3-MAG [id number]) [phone] kz-[id number]-[id number]-mg Tab Take 1 tablet by mouth. Active [...] I will evaluate for congenital adrenal hyperplasia, David syndrome, polycystic ovarian syndrome although that seems [...] range. Recent lab work not available [facility]. Will renew medications at [...] reference range. She does have follow-up with strategic consultant and hopefully this will yield some information. I would not make any changes to the dose of levothyroxine. Encounters Date Type Department Care Team Description 12/01/2024 Refill [facility] [address] [place] [address] Sandra Flores [place] 10/12/2024 Telephone [facility] Endocr[facility]ology [address] [place] [address] Dionicio Chakraborty, thyroid check (thyroid check) from [...] Telemedicine - audio only [facility] [address] [place] [address] Dionicio Chakraborty DO [address] [place] [phone] [email or web address] Health Maintenance Due Date Last Done Comments [...] DO LAB BLOOD ORDERABLES Final Resul t [facility] [address] [place] [address] from Last 3 Months or Most Recently Relevant to Health Maintenance Insurance MEDICARE PART A & [facility] MEDICARE PART A & B [facility] MEDICARE REPLACEMENT MEDICARE PART A & B [facility] MEDICARE REPLACEMENT MEDICARE PART A & B [facility] MEDICARE REPLACEMENT MEDICARE PART A & B [facility] MEDICARE REPLACEMENT YARI CASTRO [facility] [address] [place] [address] MEDICARE PART A & B [facility] MEDICARE REPLACEMENT Care Teams Progress Man Relationship Specialty Start Date End Date Name, MD Gregg [address] [place] [address] PCP - General Geriatric Psychiatry 03/15/18 Additional Source Comments The information contained in this document represents components of the legal health record. It is not the complete legal health record.[facility]
--- OUTSIDE RECORDS SUMMARY | 2024-12-14 10:05 | XMS_ITS | Encounter Summary ---
Author Organization [employer] Address 75 [facility] 7t [place] [address] Care Team Providers Care Placement Officer Name Role Phone Name, Gergg DIAMOND Primary Care Provider [phone] Reason for Visit * Reason Comments Med Refill Encounter Details Date Type Department Care Team ( st Contact Info) Description 10/14/[address] [facility] MEDICINE [address] [place] [phone] Name, MD Gregg [address] [place] [phone] Osteoporosis, unspecified osteoporosis type, unspecified pathological fracture [...] 1:30 PM EST Office Visit [facility] ADULT DENTAL [address] [place] [address] [phone] Faye Mi 03/06/2025 9:00 AM EST Office Visit [facility] MEDICINE [address] [place] [address] [phone] Name, MD Gregg [address] [place] [address] documented as of this encounter Visit Diagnoses Diagnosis Osteoporosis, unspecified osteoporosis type, unspecified pathological fracture presence documented in this encounter Additional Health Concerns Assessment Noted Time PHQ-9 Depression Total Score: 7 03/04/19 23 9:17 AM EST documented as of this encounter Care Teams Placement Officer Relationship Specialty Start Date End Date Name, [place] [address] PCP - General Family Medicine 04/16/15 [facility] 05/23/24 documented as of this encounter
--- OUTSIDE RECORDS SUMMARY | 2024-12-14 10:05 | XMS_ITS | Encounter Summary ---
Author Organization [employer] Address 75 [facility] 7t [place] [address] Care Team Providers Care Ui Architect Name Role Phone Name, Gregg DIAMOND Primary Care Provider [phone] Encounter Details Date Type Department Care Team (Latest Contact Info) Description 09/27/2018 Abstract [facility] CONVERSIONS Dental, Provider, DDS Social [...] 1:30 PM EST Office Visit [facility] ADULT DENTAL [address] [place] [address] Faye Mi 03/06/2025 9:00 AM EST Office Visit [facility] MEDICINE [address] [place] [address] NameGregg MD [address] [place] [address] documented as of this encounter Visit Diagnoses Not on filedocumented in this encounter Care Teams Ui Architect Relationship Specialty Start Date End Date Gregg Gandhi MD [address] [place] [address] PCP - General Family Medicine 04/16/15 [facility] 05/23/24 documented as of this encounter
--- OUTSIDE RECORDS SUMMARY | 2024-12-14 10:05 | XMS_ITS | Encounter Summary ---
Author Organization [employer] Address 75 [facility] 7t [place] [address] Care Team Providers Care Clamp Truck Driver Name Role Phone Name, Gregg DIAMOND Primary Care Provider [phone] Encounter Details Date Type Department Care Team (Late Contact Info) Description 01/14/2022 Abstract [facility] ADULT DENTAL [address] [place] [phone] Dental, Provider, DDS Social History Tobacco Use [...] Department Care Team (Late Contact Info) Description 12/18/2024 1:30 PM EST Office Visit [facility] ADULT DENTAL [address] [place] [phone] Faye Mi 03/06/2025 9:00 AM EST Office Visit [facility] MEDICINE [address] [place] [phone] Name, MD Gregg [address] [place] [address] documented as of this encounter Procedures Procedure [...] on filedocumented in this encounter Care Teams Clamp Truck Driver Relationship Specialty Start Date End Date Name, MD Gregg [address] [place] [address] PCP - General Family Medicine 04/16/15 [facility] 05/23/24 documented as of this encounter
--- OUTSIDE RECORDS SUMMARY | 2024-12-14 10:05 | XMS_ITS | Encounter Summary ---
Author Organization [employer] Address 75 [facility] 7t [place] [address] Care Team Providers Care Gold Leaf Printer Name Role Phone Name, Gregg DIAMOND Primary Care Provider [phone] Reason for Visit * Reason Comments Med Refill Encounter Details Date Type Department Care Team ([facility] st Contact Info) Description 03/04/2022 Refill [facility] MEDICINE [address] [place] [address] Name, MD Gregg 230 [place] [address] Osteoporosis, unspecified osteoporosis type, unspecified pathological fracture [...] Description 12/18/2024 1:30 PM EST Office Visit [facility] ADULT DENTAL [address] [place] [address] Mi Faye 03/06/2025 9:00 AM EST Office Visit [facility] MEDICINE [address] [place] [address] Name, [place] [address] documented as of this encounter Visit Diagnoses Diagnosis Osteoporosis, unspecified osteoporosis type, unspecified pathological fracture presence documented in this encounter Additional Health Concerns Assessment Noted Time PHQ-9 Depression Total Score: 7 03/04/19 9:17 AM EST documented as of this encounter Care Teams Gold Leaf Printer Relationship Specialty Start Date End Date Name, [place] [address] PCP - General Family Medicine 04/16/15 [facility] 05/23/24 documented as of this encounter
--- OUTSIDE RECORDS SUMMARY | 2024-12-14 10:05 | XMS_ITS | Encounter Summary ---
Author Organization [employer] Address [address] [facility] [address] 7t [place] [address] Care Team Providers Care Wrapper Hands Sprayer Name Role Phone Name, Gregg DIAMOND Primary Care Provider [phone] Reason for Visit * Reason Onset Date Comments Durable Medical Equipment 12/08/2024 Encounter Details Date Type Department Care Team ([facility] st Contact Info) Description 12/08/[address] [facility] MEDICINE [address] [place] [address] Name, MD Gregg [address] [place] [address] Durable Medical Equipment Social History Tobacco Use [...] [facility] Any questions contact pt at [phone] documented in this encounter Plan of Treatment Upcoming Encounters Date Type Department Care Team (Late st Contact Info) Description 12/18/2024 1:30 PM EST Office Visit [facility] ADULT DENTAL [address] [place] [address] Faye Mi 03/06/2025 9:00 AM EST Office Visit [facility] MEDICINE [address] [place] [address] Name, MD Gregg [address] [place] [address] documented as of this encounter Visit Diagnoses Not on filedocumented in this encounter Additional Health Concerns Assessment Noted Time PHQ-9 Depression Total Score: 1 07/18/19 25 11:20 AM EDT documented as of this encounter Care Teams Wrapper Hands Sprayer Relationship Specialty Start Date End Date Name, MD Gregg [address] [place] [address] PCP - General Family Medicine 04/16/15 [facility] 05/23/24 documented as of this encounter
--- OUTSIDE RECORDS SUMMARY | 2024-12-14 10:05 | XMS_ITS | Encounter Summary ---
Author Organization [employer] Address [address] [facility] [address] 7t [place] [address] Care Team Providers Care Pen Maker Name Role Phone Name, Gregg DIAMOND Primary Care Provider Reason for Visit * Reason Onset Date Comments Dr. Marixa chatman back from lab?? 08/31/2024 Encounter Details Date Type Department Care Team ([facility] Contact Info) Description 08/31/2024 Telephone [facility] ADULT DENTAL [address] [place] [address] Ayan Calvin, DMD [address] [place] [address] Dr. Marixa chatman back from lab?? Social [...] Sent to both provider and front office clerk * Telephone Encounter - Nataliia Jalloh - [...] delivery. Also message sent to front office clerk documented in this encounter Plan of Treatment Upcoming Encounters Date Type Department Care Team (Late st Contact Info) Description 12/18/2024 1:30 PM EST Office Visit [facility] ADULT DENTAL [address] [place] [address] Faye Mi 03/06/2025 9:00 AM EST Office Visit [facility] MEDICINE [address] [place] [address] Name, MD Gregg [address] [place] [address] documented as of this encounter Visit Diagnoses Not on filedocumented in this encounter Additional Health Concerns Assessment Noted Time PHQ-9 Depression Total Score: 1 07/18/19 11:20 AM EDT documented as of this encounter Care Teams Pen Maker Relationship Specialty Start Date End Date Name, MD Gregg [address] [place] [phone] PCP - General Family Medicine 04/16/15 [facility] 05/23/24 documented as of this encounter
--- OUTSIDE RECORDS SUMMARY | 2024-12-14 10:05 | XMS_ITS | Encounter Summary ---
Author Organization [employer] Address [address] [facility] [address] 7t [place] [address] Care Team Providers Care Greens Or Grounds Superintendent Name Role Phone Name, Gregg DIAMOND Primary Care Provider [phone] Encounter Details Date Type Department Care Team (Late st Contact Info) Description 05/24/2024 Telephone [facility] MEDICINE [address] [place], [place] [phone] Name, MD Gregg [address] [place] [address] Social History Tobacco Use Types Packs/Day Years [...] 12/18/2024 1:30 PM EST Office Visit [facility] ADULT DENTAL [address] [place] [address] Faye Mi 03/06/2025 9:00 AM EST Office Visit [facility] MEDICINE [address] [place] [address] NameGregg MD [address] [place] [address] documented as of this encounter Visit Diagnoses Not on filedocumented in this encounter Additional Health Concerns Assessment Noted Time PHQ-9 Depression Total Score: 0 09/01/19 24 10:42 AM EDT documented as of this encounter Care Teams Greens Or Grounds Superintendent Relationship Specialty Start Date End Date NameGregg MD [address] [place] [address] PCP - General Family Medicine 04/16/15 [facility] 05/23/24 documented as of this encounter
== END 2024-12-13 09:02 | disposition home or self-care (01) ==
LOC: HO.HOSX 09:01
PROVIDERS: Visit Provider Physician Assistant
DX: S49.92XA Unspecified injury of left shoulder and upper arm, initial encounter (principal); W01.0XXA Fall on same level from slipping, tripping and stumbling without subsequent striking against object, initial encounter
CPT/HCPCS: 73030; 99212

== ENCOUNTER 2024-12-13 11:15 | Outpatient (AMB) | payer OTHER, SELFPAY ==
--- NOTE | 2024-12-13 11:31 | MHC.OFFVIS ---
Vital Signs 12/13/24 11:35 Height 5 ft 3 in Weight 163 lb BMI 28.9 Intake Visit Reasons: new prob- actue pain of left shoulder Intake Note: Mag is a 64 year old female who presents today as an established patient, new problem visit to evaluate left shoulder pain. Patient reports that on November 15 of this year she had a slip and fall while in [place]. She states that when she slipped she went up about 3 ft high and landed on her left hip and shoulder. Currently her pain is located at the top of her shoulder that travels to the anterior aspect of shoulder. She also complains of burning pain in her left elbow. She has been using topical creams. Allergies nalbuphine (From [facility]) Allergy (Severe, Verified 12/13/24 11:39) Anaphylaxis tramadol Adverse Reaction (Verified 12/13/24 11:39) itchy HPI HPI new prob- actue pain of left shoulder: Details: 64-year-old female presents to the today for left shoulder pain. She had an injury on November 15 where she fell landing on the left side and injuring the shoulder. She continues to have discomfort with daily activities and the pain extends down into her elbow. [facility] Medical History Diverticulosis of colon Right shoulder injury Kidney calculi Nausea & vomiting Bronchitis Close exposure to 2019-nCoV Strain of tendon of medial thigh muscle Easy bruising Hoarseness Dizziness Clostridium difficile infection Osteoarthritis of right knee Sciatica, left side Osteoarthritis of left knee Bilateral hip pain Urinary retention Painful urination Sleep apnea Somnolence, daytime Obesity (BMI 30-39.9) Migraine Syncope Pseudotumor cerebri Crystal arthropathy Kidney tumor COVID-19 vaccine administered Thyroid disease Colon polyp Bronchial asthma Acid reflux Surgical History Status post gastric bypass for obesity Status post excision of lipoma (09/10/23) History of esophagogastroduodenoscopy (EGD) History of surgery on wrist History of hysterectomy Previous section Hx laparoscopic cholecystectomy Hx of colonoscopy Family History Father Heart disease History of open heart surgery Mother Heart disease Social History Household Members: None Household Members Other:: alone Are you a primary child day care provider to a significant other at home: No Do you presently have visiting nurse or other home services: No Alcohol intake: never Patient Tobacco Use Status: Former Tobacco user Tobacco use type: Cigarette service: No Current occupational status: disabled Review of Systems Const All systems reviewed & are unremarkable except as noted in HPI and below Physical Exam Vital Signs: BMI result Body Mass Index 28.9 Extrem Other: Left shoulder normal to inspection. She has significant tenderness to palpation of the greater tuberosity. Range of motion is limited with forward flexion due to discomfort. She has full range of motion of her left elbow no pain with supination or pronation neurovascularly intact. Results Reviewed Results Reviewed: X-rays of her left shoulder obtained in the office today and reviewed by me show what may represent an occult fracture of the greater tuberosity otherwise arthritic changes to the AC joint with a downsloping acromion Assessment & Plan Assessment & Plan (1) Injury of left shoulder: Code(s): S49.92XA - Unspecified injury of left shoulder and upper arm, initial encounter Category: Medical Plan: An MRI of the left shoulder has been ordered to further evaluate the injury to the humeral head. If this is an occult fracture she should limit her lifting or reaching for the next 6 weeks however if this is just arthritic changes we can proceed with physical therapy to work on gentle range of motion and scapular/rotator cuff strengthening exercises. I also explained to the patient if this is negative for a fracture we can also entertain the idea of steroid injections which she is hesitant on but I did explain the benefits it could have in her discomfort. Once the MRI is complete I will see her back to discuss the next step in her treatment. Orders: Orders XR shoulder LT min 2V Today M25.512 - Pain in left shoulder MR shoulder LT wo con Today S46.009A - Unspecified injury of muscle(s) and tendon(s) of the rotator cuff of unspecified shoulder, initial encounter Coding Level of Care Code Est Pt Level 3 (31555) Complex EM visit Add On G2211 Diagnoses Injury of left shoulder S49.92XA
[2024-12-13 11:35] VITALS: BMI 28.9
--- OUTSIDE RECORDS SUMMARY | 2024-12-13 14:18 | XMS_ITS | Encounter Summary ---
Author Organization [employer] Address [address] 7[address] [place] [address] Care Team Providers Care Crime Scene Examiner Name Role Phone Name, Gregg DIAMOND Primary Care Provider [phone] Reason for Visit * Reason Onset Date Comments Dr. Calvin unable to use dentures 10/23/2024 Encounter Details Date Type Department Care Team ([facility] Contact Info) Description 10/23/2024 Telephone [facility] ADULT DENTAL [address] [place] [address] Ayan Calvin, DMD [address] [place] [address] Dr. Calvin unable to use dentures Social [...] Care Team (Late st Contact Info) Description 12/18/2024 1:30 PM EST Office Visit [facility] ADULT DENT[facility] [address] [place] [address] Faye Mi 03/06/2025 9:00 AM EST Office Visit [facility] [address] [place] [address] Name, MD Gregg [address] [place] [address] documented as of this encounter Visit Diagnoses Not on filedocumented in this encounter Additional Health Concerns Assessment Noted Time PHQ-9 Depression Total Score: 1 07/18/19 25 11:20 AM EDT documented as of this encounter Care Teams Crime Scene Examiner Relationship Specialty Start Date End Date Name, MD Gregg [address] [place] [address] PCP - General Family Medicine 04/16/15 [facility] 05/23/24 documented as of this encounter
--- OUTSIDE RECORDS SUMMARY | 2024-12-13 14:18 | XMS_ITS | Encounter Summary ---
Author Organization [employer] Address [address] [facility] 7t [place] [address] Care Team Providers Care Worship Pastor Name Role Phone Name, Gregg DIAMOND Primary Care Provider [phone] Reason for Visit * Reason Onset Date Comments PT1 02/25/2023 Encounter Details Date Type Department Care Team ([facility] st Contact Info) Description 02/25/2023 Telephone [facility] MED[facility] [address] [place] [address] Name, MD Gregg [address] [place] [address] PT1 Social History Tobacco Use Types Packs/Day [...] - valid through 06/2023 [facility] neurology - [id number] authorized Dr Chakraborty - [id number] pending [facility] Gen Surg - [id number] authorized [facility] - [id number] authorized Renal & Trans - [id number] authorized ENT - [id number] pending [facility] medical office - [id number] pending * Telephone Encounter - Cameron Su - 02/25/2023 4:29 PM EST PT1 needed Date: N/A Time: N/A Visits: 2 or 3 monthly Address: [address] [facility] Facility: [facility] Cardiovascular Wheel Chair: No Vocational Training Teacher Needed: No PT1 needed Date: N/A Time: N/A Visits: 2 or 3 Monthly Address: [address] [facility] Facility: [facility] Neurology Wheel No Vocational Training Teacher Needed: No PT1 needed Date: N/A Time: N/A Visits: 2 or 3 Monthly Address: [address] [facility] Facility: Dr Chakraborty Wheel Chair: No Vocational Training Teacher Needed: No PT1 needed Date: N/A Time: N/A Visits: 2 or 3 Monthly Address: [address] [place] [address] dr LambretRafy [place] Facility: [facility] General Surgery Wheel Chair: No Vocational Training Teacher Needed: No PT1 needed Date: N/A Time: N/A Visits: 2 or 3 Monthly Address: [address] [place] [address] Facility: [facility] Wheel Chair: No Vocational Training Teacher Needed: No PT1 needed Date: N/A Time: N/A Visits: 2 or 3 monthly Address: [address] [facility] Facility: [facility] Wheel Chair: No Vocational Training Teacher Needed: No PT1 needed Date: N/A Time: N/A Visits: 2 or 3 monthly Address: [address] [facility] Facility: [facility] Wheel Chair: No Vocational Training Teacher Needed: No PT1 needed Date: N/A Time: N/A Visits: 2 or 3 Monthly Address: [address] [facility] [address] Cesia DESOUZA Facility: [facility] medical Office Wheel Chair: No Vocational Training Teacher Needed: No PT1 needed Date: N/A Time: N/A Visits: 2 or 3 Monthly Address: [address] [place] [address] Facility: [facility] Wheel Chair: No Vocational Training Teacher Needed: No documented in this encounter Plan of Treatment Upcoming Encounters Date Type Department Care Team (Late st Contact Info) Description 12/18/2024 1:30 PM EST Office Visit [facility] ADULT DENTAL [address] [place] [address] Faye Mi 03/06/2025 9:00 AM EST Office Visit [facility] [address] [place] [address] Name, MD Gregg [address] [place] [address] documented as of this encounter Visit Diagnoses Not on filedocumented in this encounter Additional Health Concerns Assessment Noted Time PHQ-9 Depression Total Score: 7 03/04/19 23 9:17 AM EST documented as of this encounter Care Teams Worship Pastor Relationship Specialty Start Date End Date Name, MD Gregg [address] [place] [address] PCP - General Family Medicine 04/16/15 [facility] 05/23/24 documented as of this encounter
--- OUTSIDE RECORDS SUMMARY | 2024-12-13 14:18 | XMS_ITS | Encounter Summary ---
Author Organization [employer] Address [address] [facility] [address] 7t [place] [address] Care Team Providers Care Dyed Raw Stock Blower Feeder Name Role Phone Name, Gregg DIAMOND Primary Care Provider [phone] Reason for Visit * Reason Comments Med Change Request Encounter Details Date Type Department Care Team ([facility] Contact Info) Description 07/26/2024 Refill [facility] [address] [place] [address] Name, MD Gregg [address] [place] [address] Social History Tobacco Use Types Packs/Day Years [...] Description 12/18/2024 1:30 PM EST Office Visit [facility] ADULT DENTAL [address] [place] [address] Faye Mi 03/06/2025 9:00 AM EST Office Visit [facility] MED[facility] [address] [place] [address] Name, MD Gregg [address] [place] [address] documented as of this encounter Visit Diagnoses Not on filedocumented in this encounter Additional Health Concerns Assessment Noted Time PHQ-9 Depression Total Score: 1 07/18/19 11:20 AM EDT documented as of this encounter Care Teams Dyed Raw Stock Blower Feeder Relationship Specialty Start Date End Date Name, MD Gregg [address] [place] [address] PCP - General Family Medicine 04/16/15 [facility] 05/23/24 documented as of this encounter
--- OUTSIDE RECORDS SUMMARY | 2024-12-13 14:18 | XMS_ITS | Encounter Summary ---
Author Organization [employer] Address [address] [facility] [address] 7t [place] [address] Care Team Providers Care Air Traffic Systems Technician Name Role Phone Name, Gregg DIAMOND Primary Care Provider [phone] Reason for Visit * Reason Comments Med Refill Encounter Details Date Type Department Care Team ([facility] st Contact Info) Description 07/13/2023 [facility]ill [facility] [address] [place] [address] Ban Granados FNP [address] [place] [address] Social History Tobacco Use Types Packs/Day Years [...] the past 12 months, has t he [employer], [employer], oil or water [employer] threatened to shut off services in your [...] 3:57 PM EDT Pt came into the [facility] asking for refills on Wegomy meds. She wants Dr. Granados to send the refill in two days to be able to picking table worker in pharmacy. 07/13/23 documented in this encounter Plan of Treatment Upcoming Encounters Date Type Department Care Team (Late st Contact Info) Description 12/18/2024 1:30 PM EST [facility] [address] [place] [address] Faye Mi 03/06/2025 9:00 AM EST [facility] [address] [place] [address] Name, MD Gregg [address] [place] [address] documented as of this encounter Visit Diagnoses Not on filedocumented in this encounter Additional Health Concerns Assessment Noted Time PHQ-9 Depression Total Score: 7 03/04/19 23 9:17 AM EST documented as of this encounter Care Teams Air Traffic Systems Technician Relationship Specialty Start Date End Date Name, MD Gregg [address] [place] [address] PCP - General Family Medicine 04/16/15 [facility] 05/23/24 documented as of this encounter
--- OUTSIDE RECORDS SUMMARY | 2024-12-13 14:18 | XMS_ITS | Encounter Summary ---
Author Organization [employer] Address [address] [facility] 7t [place] [address] Care Team Providers Care Checkout Supervisor Name Role Phone Name, Gregg DIAMOND Primary Care Provider [phone] Reason for Visit * Reason Onset Date Comments broken tooth to hold partial 02/28/2024 Encounter Details Date Type Department Care Team ([facility] st Contact Info) Description 02/28/[address] [facility] ADULT DENTAL [address] [place] [address] Ayan Calivn, DMD [address] [place] [address] broken tooth to hold partial Social History [...] Description 12/18/2024 1:30 PM EST Office Visit [facility] ADULT DENTAL [address] [place] [address] Faye Mi 03/06/2025 9:00 AM EST Office Visit [facility] MEDICINE [address] [place] [address] Name, MD Gregg [address] [place] [address] documented as of this encounter Visit Diagnoses Not on filedocumented in this encounter Additional Health Concerns Assessment Noted Time PHQ-9 Depression Total Score: 0 09/01/19 24 10:42 AM EDT documented as of this encounter Care Teams Checkout Supervisor Relationship Specialty Start Date End Date Name, MD Gregg [address] [place] [address] PCP - General Family Medicine 04/16/15 [facility] 05/23/24 documented as of this encounter
--- OUTSIDE RECORDS SUMMARY | 2024-12-13 14:18 | XMS_ITS | Clinical Summary ---
Author Organization [employer] Address [address] [facility] [address] 7[address] [place] [address] Care Team Providers Care Electro Optics Engineer Name Role Phone Name, Gregg DIAMOND Primary Care Provider [phone] Allergies Active Allergy Reactions Criticality Noted Date Comments Nalbuphine Anaphylaxis,Shortnes s of breath High 08/07/2011 Other Reaction(s): Not available Tramadol Dizziness,Itching 06/09/2024 Other Reaction(s): Not available Medications albuterol 108 (90 Base) MCG/ACT inhaler Inhale 2 puffs every 4 (four) hours if needed. 12/02/19 22 Active chlorhexidine (Peridex) 0.12 % solution Place 15 mL into mouth between cheek and gum every 12 (twelve) hours. 12/12/19 22 Active cyclobenzaprine (Flexeril) 10 MG tablet 12/02/19 22 Active levothyroxine (Synthroid, Levoxyl) 100 MCG tablet [...] 3 DAYS 10 patch 12/26/19 23 Active Aspirin Low Dose 81 MG EC tablet Take 81 mg by mouth at bedtime. 07/02/19 24 Active estazolam (Prosom) 2 MG tablet Take 2 mg by mouth at bedtime. Active estazolam (Prosom) 1 MG tablet Take 1 mg by mouth at bedtime. 08/02/19 24 Active venlafaxine (Effexor) 25 MG tablet Active hydrocortisone 0.5 % cream Apply topically 2 times daily. 28 g 1 10/26/19 24 Active meclizine (Antivert) 25 MG tablet TAKE 1 TABLET BY MOUTH TWICE DAILY NEEDED 60 tablet 4 10/27/19 24 Active ipratropium (Atrovent) 0.06 % nasal sprayIndications :Viral upper respiratory tract infection with cough 2 sprays each nostril bid prn rhinorrhea, telugu 15 mL 12/07/19 24 Active doxepin (SINEquan) 75 MG capsule Take 1 capsule by mouth at bedtime 12/22/19 24 Active Fluticasone-Salm eterol 250-50 MCG/ACT aerosol powder Inhale 1 puff by mouth twice daily. Rinse mouth after using. 12/23/19 24 Active pyridoxine (Vitamin B-6) 100 MG tabletIndication s:Bariatric surgery status TAKE 2 TABLETS BY MOUTH ONCE DAILY AT NOON 180 tablet 3 03/14/19 25 Active hydroCHLOROthiaz filipe 12.5 MG tablet TAKE 1 TABLET BY MOUTH EVERYDAY AT NOON 90 tablet 3 05/25/19 25 Active docusate sodium (Colace) 100 MG capsule TAKE 1 CAPSULE BY MOUTH EVERY DAY 90 capsule 1 06/28/19 25 Active gabapentin (Neurontin) 100 MG capsule Take 1 capsule (100 mg) by mouth every 8 (eight) hours. 08/29/19 25 Active omeprazole (PriLOSEC) [address] capsule TAKE 1 CAPSULE BY MOUTH EVERY MORNING BEFORE MEALS DO NOT BREAK, CRUSH, DISSOLVE OR CHEW 90 capsule 3 09/21/19 25 Active magnesium oxide (Mag-Ox) 400 MG tabletIndication s:Osteoporosis, unspecified osteoporosis type, unspecified pathological fracture presence TAKE 1 TABLET BY MOUTH EVERYDAY AT NOON WITH FOOD 90 tablet 1 09/21/19 25 Active Lidocaine (Lidocaine Pain Relief) 4 % patch APPLY 1 PATCH TO AFFECTED AREA(S) EVERY DAY 30 patch 3 09/23/19 25 Active Tirzepatide-Weig ht Management (Zepbound) 15 MG/0.5ML solution auto-injector Inject 0.5 mL (15 mg) under the skin 1 (one) time per week. INJECT ONE PEN (=15 MG) SUBCUTANEOUSLY ONCE A WEEK 2 mL 3 09/26/19 25 Active alendronate (Fosamax) 70 MG tabletIndication s:Osteoporosis, unspecified osteoporosis type, unspecified pathological fracture presence take 1 tablet by mouth once a week with 6 to 8 oz of water 30 min before first food of day. do not lie down for 30 minutes 12 tablet 09/29/19 25 Active cholecalciferol (Vitamin D-3) 25 MCG tabletIndication s:Osteoporosis, unspecified osteoporosis type, unspecified pathological fracture presence TAKE 1 TABLET BY MOUTH EVERYDAY AT NOON 90 tablet 11/04/19 25 Active Active Problems Problem Noted Date Diagnosed [...] is already in the process of seeing [facility] Plan: Increase fluids, pain [...] 01/12/2012 Impaired fasting glucose 12/14/2011 Morbid obesity (CMS/HCC) 12/14/2011 Hypertension 10/14/2011 Anxiety and depression 08/07/2011 [...] range. Recent lab work not available contacted [facility] for results. Will renew medications at [...] I will evaluate for congenital adrenal hyperplasia, [place] syndrome, polycystic ovarian syndrome although that seems [...] Encounters Date Type Department Care Team Description 12/08/[address] [place] [address] Gregg Gandhi MD 12/08/[address] [place] [address] Gregg Gandhi MD Durable Medical Equipment 12/01/[address] [address] Sweta Giraldo [place] 12/01/[address] [address] Sweta iGraldo MA dec recalls 11/14/2024 9:00 AM EDT Office Visit [facility] ADULT DENTAL [address] [facility] [place] [address] Heath Dougherty, DDS 11/07/2024 Telephone [facility] [address] [place] [address], [place] [address] Heath Dougherty, DDS 11/03/[address] [address] Gregg Gandhi MD Osteoporosis, unspecified osteoporosis type, unspecified pathological fracture presence 10/26/2024 3:00 PM EDT Office Visit [facility] ADULT DENTAL [address] [facility] [place] [address] Ayan Calvin DMD 10/23/2024 Telephone [facility] [address] [facility] [place] [address] Yen unable to use dentures 10/20/[address] [address] Gregg Gandhi MD Durable Medical Equipment 10/19/2024 9:00 AM EDT Office Visit [facility] ADULT DENTAL [address] [place] [address] Ayan Calvin, DMD 10/18/2024 2:45 PM EDT Office Visit [facility] MED[facility] [address] [place] [address] NameGregg MD Obesity (BMI 30-39.9) (Primary Dx) 10/18/2024 Travel 09/28/2024 Results Follow-Up [facility] [address] [place] [address] Maura Taylor, BRIAN XR Clavicle Left 09/27/2024 Refill [facility] [address] [place] [address] NameGregg MD Osteoporosis, unspecified osteoporosis type, unspecified pathological fracture presence 09/26/2024 1:30 PM EDT Office Visit [facility] [address] [place] [address] Nicole Dai NP Acute pain of left shoulder (Primary Dx) 09/26/2024 Travel 09/25/2024 Refill [facility] [address] [place] [address] NameGregg MD 09/25/2024 Telephone [facility] [address] [place] [address] Gregg Gandhi MD Nurse Triage 09/22/2024 Refill [facility] [address] [place] [address] NameGregg MD 09/20/2024 Refill [facility] [address] [place] [address] NameGregg MD Osteoporosis, unspecified osteoporosis type, unspecified pathological fracture presence from Last 3 Months Immunizations Immunization Administration [...] Description 12/18/2024 1:30 PM EST Office Visit [facility] [address] [place] [address] Faye Mi 03/06/2025 9:00 AM EST Office Visit [facility] [address] [place] [address] Name, MD Gregg [address] [place] [address] Health Maintenance Due Date Last Done Comments [...] Alcohol/Substance Use Screening 09/26/2025 09/26/2024 Tobacco Screening 11/14/2025 11/14/2024 DTaP/Tdap/Td Vaccines (2 - Td or Tdap) [...] Procedure Name Priority Date/Time Associated Diagnosis Comments LIMITED ORAL EVALUATION - PROBLEM FOCUSED Routine 11/14/2024 9:00 AM EDT CASE PRESENTATION, DETAILED AND EXTENSIVE TREATMENT [...] PM EDT Acute pain of left shoulder Full PROPHYLAXIS - ADULT Routine 08/31/2023 1:00 [...] PM EDT Narrative 09/26/2024 3:29 PM EDT [address] [address] XRay Report Signed Patient: Mag Ayala MR#: [id number] 4 : 1960 Acct:[id number] Age/Sex: 63 / F ADM Date: 09/26/24 [facility]: Nicole Dai OPERATIONS TECH Ordering Physician: Nicole Dai OPERATIONS TECH Date of Service: 09/26/24 Procedure(s): XR clavicle LT Accession Number(s): [id number] cc: Nicole Dai OPERATIONS TECH EXAMINATION: XR CLAVICLE LEFT HISTORY: pain COMPARISON: [...] Darren Peralta MD 09/26/2024 03:26 PM EDT Dictated By: Darren Peralta MD Signed By: <Electronically signed by Darren Peralta MD in OV> 09/26/24 1526 DD/ 1420 TD/TT: 09/26/24 1450 Unmanned Equipment Operator: Procedure Note Donotuseinterpreter, Image - 09/26/[address] [address] XRay Report Signed Patient: Riccardo AyalanMR#: [id number] 4 : 1960cct:[id number] Age/Sex: 63 / FADM Date: 09/26/24 Loc: HO.CX Attending Dr: Nicole Dai OPERATIONS TECH Ordering Physician: Nicole Dai OPERATIONS TECH Date of Service: 09/26/24 Procedure(s): XR clavicle LT Accession Number(s): [id number] cc: Nicole Dai NP EXAMINATION: XR CLAVICLE LEFT HISTORY: pain COMPARISON: [...] Darren Peralta MD 09/26/2024 03:26 PM EDT Dictated By: Darren Peralta MD Signed By: <Electronically signed by Darren Peralta MD in OV> 09/26/24 1526 DD/ 1420 TD/TT: 09/26/24 1450 Unmanned Equipment Operator: us Nicole Dai NP IMG XR PROCEDURES Final Result * BI Mammogram Screening Tomosynthesis Bilateral (04/20/2023 12:05 PM EST) Anatomical Region Laterality Modality Breast Bilateral Mammography 04/20/2023 12:0 5 PM EST Narrative 05/05/2023 8:29 AM EDT [facility] [address] [place] [address] Mammography Report Signed Patient: Mag Ayala MR#: [id number] 4 : 1960 Acct:[id number] Age/Sex: 62 / F ADM Date: 04/20/23 Loc: [facility] Attending Dr: Gregg Gandhi MD Ordering Physician: Gregg Gandhi MD Results: 1Negative Date of Service: 04/20/23 Follow Up: 1 Year From [facility] Mammogram Procedure(s): MM tomosynthesis screening BI Accession Number(s): [id number] cc: Gregg Gandhi MD EXAMINATION: MM SCREENING [...] in OV> 05/05/23 0825 DD/ 1205 TD/TT: Unmanned Equipment Operator: Procedure Note Donotuseinterpreter, Image - 05/05/2023 [facility] [address] [place] [address] Mammography Report Signed Patient: Riccardo AyalanMAmanda#: [id number] 4 : 9Acct:[id number] Age/Sex: 62 / FADM Date: 04/20/23 Loc: HO.MAMMO Attending Dr: Gregg Gandhi MD Ordering Physician: Gregg Gandhi MDResults: 1Negative Date of Service: 04/20/23Follow Up: 1 Year From Orig inal Mammogram Procedure(s): MM tomosynthesis screening BI Accession Number(s): [id number] cc: Gregg Gandhi MD EXAMINATION: MM SCREENING [...] in OV> 05/05/23 0825 DD/ 1205 TD/TT: Unmanned Equipment Operator: Gregg Name IMG BI PROCEDURES Final [...] factors. LDL-C is now calculated using the Dustin calculation, which is a validated novel method providing better accuracy than the Friedewald equation in the estimation of LDL-C. Darek MADISON et al. BOO. 2013;310(19): 8424-5007 (http://education.ApeSoft.FAGUO/faq/YHT235) Non-HDL Cholesterol 125 <130 mg/dL (calc) [facility] Comment: For patients with diabetes plus 1 major ASCVD risk factor, treating to a non-HDL-C goal of <100 mg/dL (LDL-C of <70 mg/dL) is considered a therapeutic option. Triglycerides 80 <150 mg/dL [facility] 05/20/2020 9:32 AM EDT us Gregg Gandhi MD LAB BLOOD ORDERABLES Final Resul t [facility] [address] from Last 3 Months or Most Recently Relevant to Health Maintenance Insurance [facility] [employer] [employer] (HMO D-SNP) DENTAL [facility] Care Teams Electro Optics Engineer Relationship Specialty Start Date End Date Name, MD Gregg [address] [place] [address] PCP - General Family Medicine 04/16/15 [facility] 05/23/24
--- OUTSIDE RECORDS SUMMARY | 2024-12-13 14:18 | XMS_ITS | Encounter Summary ---
Author Organization [employer] Address [address] 7t [place] [address] Care Team Providers Care Software Development Specialist Name Role Phone Name, Gregg DIAMOND Primary Care Provider [phone] Encounter Details Date Type Department Care Team (Late st Contact Info) Description 10/21/2023 Telephone [facility] ADULT DENTAL [address] [place] [address] Ayan Calvin, DMD [address] [place] [address] Social History Tobacco Use Types Packs/Day Years [...] Description 12/18/2024 1:30 PM EST Office Visit [facility] ADULT DENT[facility] [address] [place] [address] Faye Mi 03/06/2025 9:00 AM EST Office Visit [facility] MEDICINE [address] [place] [address] NameGregg MD [address] [place] [address] documented as of this encounter Visit Diagnoses Not on filedocumented in this encounter Additional Health Concerns Assessment Noted Time PHQ-9 Depression Total Score: 0 09/01/19 24 10:42 AM EDT documented as of this encounter Care Teams Software Development Specialist Relationship Specialty Start Date End Date Gregg Gandhi MD [address] [place] [address] PCP - General Family Medicine 04/16/15 [facility] 05/23/24 documented as of this encounter
--- OUTSIDE RECORDS SUMMARY | 2024-12-13 14:18 | XMS_ITS | Encounter Summary ---
Author Organization [employer] Address [address] [facility] [address] 7t [place] [address] Care Team Providers Care Hi Low Truck Driver Name Role Phone Name, Gregg DIAMOND Primary Care Provider [phone] Reason for Visit * Reason Comments Med Refill Encounter Details Date Type Department Care Team ([facility] st Contact Info) Description 08/03/2023 Refill [facility] MEDICINE [address] [place] [address] Name, MD Gregg [address] [place] [address] Social History Tobacco Use Types Packs/Day Years [...] Description 12/18/2024 1:30 PM EST Office Visit [facility] ADULT DENTAL [address] [place] [address] Faye Mi 03/06/2025 9:00 AM EST Office Visit [facility] MEDICINE [address] [place] [address] Name, MD Gregg [address] [place] [address] documented as of this encounter Visit Diagnoses Not on filedocumented in this encounter Additional Health Concerns Assessment Noted Time PHQ-9 Depression Total Score: 7 03/04/19 23 9:17 AM EST documented as of this encounter Care Teams Hi Low Truck Driver Relationship Specialty Start Date End Date Name, MD Gregg [address] [place] [address] PCP - General Family Medicine 04/16/15 [facility] 05/23/24 documented as of this encounter
--- OUTSIDE RECORDS SUMMARY | 2024-12-13 14:18 | XMS_ITS | Encounter Summary ---
Author Organization [employer] Address [address] [place] [address] Care Team Providers Care Electrical Assemblies Supervisor Name Role Phone Name, Gregg DIAMOND Primary Care Provider [phone] Reason for Visit * Reason Onset Date Comments clarification of tx 08/09/2023 Encounter Details Date Type Department Care Team ([facility] st Contact Info) Description 08/09/2023 Telephone [facility] ADULT DENTAL [address] [place] [address] Ayan Calvin, DMD [address] [place] [address] clarification of tx Social History Tobacco Use [...] you to call her. She went to [facility] for RCT today but is looking [...] Description 12/18/2024 1:30 PM EST Office Visit [facility] ADULT DENTAL [address] [place] [address] Faye Mi 03/06/2025 9:00 AM EST Office Visit [facility] MEDICINE [address] [place] [address] Name, MD Gregg [address] [place] [address] documented as of this encounter Visit Diagnoses Not on filedocumented in this encounter Additional Health Concerns Assessment Noted Time PHQ-9 Depression Total Score: 7 03/04/19 23 9:17 AM EST documented as of this encounter Care Teams Electrical Assemblies Supervisor Relationship Specialty Start Date End Date NameGregg MD [address] [place] [phone] PCP - General Family Medicine 04/16/15 [facility] 05/23/24 documented as of this encounter
--- OUTSIDE RECORDS SUMMARY | 2024-12-13 14:18 | XMS_ITS | Encounter Summary ---
Author Organization [employer] Address [address] [place] [address] Care Team Providers Care Wood Casket Assembler Name Role Phone Name, Gregg DIAMOND Primary Care Provider [phone] Reason for Visit * Reason Comments Med Refill Encounter Details Date Type Department Care Team ([facility] st Contact Info) Description 02/14/2024 Refill [facility] MEDICINE [address] [place] [address] Name, MD Gregg [address] [place] [address] Social History Tobacco Use Types Packs/Day Years [...] Description 12/18/2024 1:30 PM EST Office Visit [facility] ADULT DENTAL [address] [place] [address] Faye iM 03/06/2025 9:00 AM EST Office Visit [facility] MEDICINE [address] [place] [address] Name, MD Gregg [address] [place] [address] documented as of this encounter Visit Diagnoses Not on filedocumented in this encounter Additional Health Concerns Assessment Noted Time PHQ-9 Depression Total Score: 0 09/01/19 24 10:42 AM EDT documented as of this encounter Care Teams Wood Casket Assembler Relationship Specialty Start Date End Date Name, MD Gregg [address] [place] [phone] PCP - General Family Medicine 04/16/15 [facility] 05/23/24 documented as of this encounter
--- OUTSIDE RECORDS SUMMARY | 2024-12-13 14:18 | XMS_ITS | Encounter Summary ---
Author Organization [employer] Address [address] [place] [address] Care Team Providers Care Enterprise Security Architect Name Role Phone Name, Gregg DIAMOND Primary Care Provider [phone] Reason for Visit * Reason Onset Date Comments Request For Order(s) 07/30/2023 Encounter Details Date Type Department Care Team ([facility] st Contact Info) Description 07/30/2023 Telephone [facility] MEDICINE [address] [place] [address] Name, MD Gregg 230 [place] [address] Request For Order(s) Social History Tobacco Use [...] done. Please clarify Please contact pt at [phone] (No lang interpreter needed) documented in this encounter Plan of Treatment Upcoming Encounters Date Type Department Care Team (Late st Contact Info) Description 12/18/2024 1:30 PM EST Office Visit [facility] ADULT DENTAL [address] [place] [address] Faye Mi 03/06/2025 9:00 AM EST Office Visit [facility] MEDICINE [address] [place] [address] Name, MD Gregg [address] [place] [address] documented as of this encounter Visit Diagnoses Not on filedocumented in this encounter Additional Health Concerns Assessment Noted Time PHQ-9 Depression Total Score: 7 03/04/19 23 9:17 AM EST documented as of this encounter Care Teams Enterprise Security Architect Relationship Specialty Start Date End Date NameGregg MD [address] [place] [phone] PCP - General Family Medicine 04/16/15 [facility] 05/23/24 documented as of this encounter
--- OUTSIDE RECORDS SUMMARY | 2024-12-13 14:18 | XMS_ITS | Encounter Summary ---
Author Organization [employer] Address [address] [place] [address] Care Team Providers Care Desktop Support Engineer Name Role Phone Name, Gregg DIAMOND Primary Care Provider [phone] Encounter Details Date Type Department Care Team (Late st Contact Info) Description 07/26/2024 Orders Only [facility] MEDICINE [address] [place], [place] [phone] Joann Angel NP 230 [place] [address] Obesity (BMI 30-39.9) (Primary Dx) Social History [...] Description 12/18/2024 1:30 PM EST Office Visit [facility] ADULT DENTAL [address] [place] [address] Faye Mi 03/06/2025 9:00 AM EST Office Visit [facility] MEDICINE [address] [place] [phone] NameGregg MD [address] [place] [address] documented as of this encounter Visit Diagnoses Diagnosis Obesity (BMI 30-39.9)- Primary documented in this encounter Additional Health Concerns Assessment Noted Time PHQ-9 Depression Total Score: 1 07/18/19 11:20 AM EDT documented as of this encounter Care Teams Desktop Support Engineer Relationship Specialty Start Date End Date NameGregg MD [address] [place] [address] PCP - General Family Medicine 04/16/15 [facility] 05/23/24 documented as of this encounter
--- OUTSIDE RECORDS SUMMARY | 2024-12-13 14:18 | XMS_ITS | Encounter Summary ---
Author Organization [employer] Address [address] [facility] [address] [place] [address] Care Team Providers Care Felting Machine Operator Helper Name Role Phone Name, Gregg DIAMOND Primary Care Provider [phone] Reason for Visit * Reason Comments Med Refill Encounter Details Date Type Department Care Team ([facility] st Contact Info) Description 11/16/2023 Refill [facility] [address] [place] [address] Yennifer Ramirez MD [address] [place] [address] Flu-like symptoms Social History Tobacco Use Types [...] Description 12/18/2024 1:30 PM EST Office Visit [facility] ADULT DENTAL [address] [place] [phone] Faye Mi 03/06/2025 9:00 AM EST Office Visit [facility] MEDICINE [address] [place] [address] NameGregg MD [address] [place] [address] documented as of this encounter Visit Diagnoses Diagnosis Flu-like symptoms documented in this encounter Additional Health Concerns Assessment Noted Time PHQ-9 Depression Total Score: 0 09/01/19 24 10:42 AM EDT documented as of this encounter Care Teams Felting Machine Operator Helper Relationship Specialty Start Date End Date NameGregg MD [address] [place] [address] PCP - General Family Medicine 04/16/15 [facility] 05/23/24 documented as of this encounter
--- OUTSIDE RECORDS SUMMARY | 2024-12-13 14:18 | XMS_ITS | Encounter Summary ---
Author Organization [employer] Address [address] [place] [address] Care Team Providers Care Rag Cutting Machine Feeder Name Role Phone Name, Gregg DIAMOND Primary Care Provider [phone] Reason for Visit * Reason Onset Date Comments Nurse Triage 11/27/2022 Encounter Details Date Type Department Care Team ([facility] st Contact Info) Description 11/27/2022 Telephone [facility] MEDICINE [address] [place] [address] Name, MD Gregg [address] [place] [address] Nurse Triage Social History Tobacco Use Types [...] t he electric, gas, oil or water [employer] threatened to shut off services in your [...] caller accepted this outcome Does not need validation analyst . documented in this encounter Plan of Treatment Upcoming Encounters Date Type Department Care Team (Late st Contact Info) Description 12/18/2024 1:30 PM EST Office Visit [facility] ADULT DENTAL [address] [place] [address] Faye Mi 03/06/2025 9:00 AM EST Office Visit [facility] MEDICINE [address] [place] [address] Name, MD Gregg [address] [place] [address] documented as of this encounter Visit Diagnoses Not on filedocumented in this encounter Additional Health Concerns Assessment Noted Time PHQ-9 Depression Total Score: 7 03/04/19 23 9:17 AM EST documented as of this encounter Care Teams Rag Cutting Machine Feeder Relationship Specialty Start Date End Date Name, MD Gregg [address] [place] [address] PCP - General Family Medicine 04/16/15 [facility] 05/23/24 documented as of this encounter
--- OUTSIDE RECORDS SUMMARY | 2024-12-13 14:18 | XMS_ITS | Encounter Summary ---
Author Organization [employer] Address [address] [place] [address] Care Team Providers Care Wound/Ostomy Clinical Nurse Specialist Name Role Phone Name, Gregg DIAMOND Primary Care Provider [phone] Reason for Visit * Reason Comments Med Refill Encounter Details Date Type Department Care Team ([facility] st Contact Info) Description 06/07/2024 Refill [facility] MEDICINE [address] [place] [address] Name, MD Gregg [address] [place] [address] Social History Tobacco Use Types Packs/Day Years [...] Description 12/18/2024 1:30 PM EST Office Visit [facility] ADULT DENTAL [address] [place] [address] Faye Mi 03/06/2025 9:00 AM EST Office Visit [facility] MEDICINE [address] [place] [address] Name, MD Gregg [address] [place] [address] documented as of this encounter Visit Diagnoses Not on filedocumented in this encounter Additional Health Concerns Assessment Noted Time PHQ-9 Depression Total Score: 0 09/01/19 24 10:42 AM EDT documented as of this encounter Care Teams Wound/Ostomy Clinical Nurse Specialist Relationship Specialty Start Date End Date Name, MD Gregg [address] [place] [address] PCP - General Family Medicine 04/16/15 [facility] 05/23/24 documented as of this encounter
--- OUTSIDE RECORDS SUMMARY | 2024-12-13 14:18 | XMS_ITS | Data Portability ---
Author Organization [employer] [place] [employer] [facility] Address [address] [place] [address] Care Team Providers Care Billing Associate Name Role Phone HIM CCA OTHER NAME, CUAUHTEMOC Primary Care Provider Assessment Encounter Date Assessment Date Assessment LastModified by Organization Details LastModified Time 08/31/2024 08/31/2024 Evaluation in th e field was performed by my airplane fueler colleague, as noted above, I provided real-time direction and supervision for this visit. This is a 63yo F requesting [facility] evaluation for chronic joint pain and also anxiety. States she is experiencing chronic knee and back pain but hasn't taken any of the medications prescribed to her such as celecoxib or gabapentin because they don't help, and she feels they make her gain weight. Has been referred to pain management, appt is next month. Also has severe anxiety right now. States she received some bad news yesterday and has had panic and anxiety since. Has taken Ativan in the past but doesn't have any now. Denies SI. Already spoke to the crisis line today and doesn't want any further intervention there. PE: General: Awake & alert, NAD Respiratory: Chest rise equal bilat, no increased wob CV: Regular rate, normal peripheral perfusion MSK: No edema or deformity. Moving all 4 extremities without restriction in ROM. Psych: Behavior is calm and appropriate. No SI. EKG: NSR, rate of 86. No STEMI or acute ischemic findings. Impression: Anxiety Chronic pain Plan: -VSS, appears well. -Pain is chronic and patient is not taking her regular medications. Needs to see pain management as scheduled. -As for anxiety, I would like to prescribe her hydroxyzine but she wouldn't be able to use it tonight because the pharmacy is closed. She thinks she might be able to get out tomorrow. -I advised her I cannot prescribe her Ativan as it is a controlled substance. She could go to the ED if she feels anxiety is severe but she declined. -She is going to take a dose of benadryl tonight and see if that helps. I have prescribed hydroxyzine. Disposition: Remain at home We discussed the diagnostic uncertainty of home visits and the risk associated with this. In this case, the patient and I felt this to be an acceptable and reasonable amount of risk given the benefit of avoiding an ED visit. We discussed the need to seek care urgently/emergentl y in the setting of any new or worsening serious symptoms. [email or web address] Not available 08/31/2024 19:13:25 09/22/2024 09/22/2024 service called for acute on chronic back pain found 63 marcial with hx chronic back pain mid back pain b/l knee pain c/o worsened mid back pain rad to L shoulder, worsens with prolonged sitting no new trauma no inciting event received ketorlac 30mg IM 1 wk prior for knee pain VSS reported exam mid-chargeback analyst to palpation #Acute on Chronic back pain uncomplicated at this time ketorlac 30mg IM x1 advised pt of relative contraindication to ketorlac IM for next 2-3 wks [email or web address] Not available 09/22/2024 19:07:14 10/03/2024 10/03/2024 As noted, we wer e called to see this patient regarding concerns of Cough and cold symptoms. Evaluation in the field was performed by my airplane fueler colleague, as noted above, I provided real-time direction and supervision for this visit. Patient has been having a runny nose, chills, body aches, and a nonproductive cough for the past day. Her vital signs and examination as per medic are unremarkable. COVID and flu tests are negative. Prescription for Tessalon Perles was provided. Patient was advised to cause back with any questions or concerns. Impression: Viral URI with cough Plan: Follow-up PCP Primary care, consider Chest x-ray Disposition: We discussed the diagnostic uncertainty of home visits and the risk associated with this. In this case, the patient and I felt this to be an acceptable and reasonable amount of risk given the benefit of avoiding an ED visit. We discussed the need to seek care urgently/emergentl y in the setting of any new or worsening serious symptoms, particularly Chest pain/pressure, shortness of breath, vomiting/dehydrati on. [email or web address] Not available 10/03/2024 11:07:32 10/23/2024 10/23/2024 service called for bruise found 63 marcial with hx asthma depression osteoporosis anxiety GERD IBD reported 4d prior fell while exiting shower, reports lost footing no head strike no LOC able rise and continue regular activities after fall reports circular bruise on left side since fall able to continue regular activities without difficulty VSS reported exam: neuro intact, ROM intact ~3 in bruise per image #Fall 4d since fall, no neurovascular concerns, no MSK limitation notify service if worsening or new pain otherwise return to primary team [email or web address] Not available 10/23/2024 17:50:40 Plan of Treatment Reminders Order Date Submit Date Provider Last Modified By Organization Details Last Modified Time Details Appointments None recorded. Lab rapid flu (A+B) 2024 025 [facility], [address] [place] [address], [id number] 5 11:47:20 rapid SARS CoV 2 Ag, QL IA, respiratory specimen 2024 025 [facility], [address] [place] [address], [id number] 11:47:47 Referral None recorded. Procedures None recorded. Surgeries None recorded. Imaging None recorded. Medication Orders benzonatate 100 mg capsule 2024 025 [facility], [address] [place] [address], [id number], 5 05:01:37 benzonatate 100 mg capsule 2024 025 [facility], [address] [place] [address], [id number], 5 05:01:37 ketorolac 30 mg/mL injection solution 2024 025 [facility], [address] [place] [address], [id number], 18:37:59 ketorolac 30 mg/mL injection solution 2024 025 [facility], [address], [place], [id number], 5 18:57:39 hydroxyzine HCl 25 mg tablet 2024 025 [facility], [address], [place], [id number], 5 19:17:38 Patient TargetsNo targets recorded. Patient InstructionsNo instructions recorded. Reason for Referral None Reported. Results Created Date Observation Date Name Description Value Unit Range Abnormal Flag Note LastModifiedBy Organization Detail LastModifiedTime 08/11/19 25 08/12/2024 URINE CULTU RE, UROLO GY RIAZ P urine culture, urology workup Final report Not Available [facility] ([facility]) [address], [place], [address], 08/12/2024 12:05:44 08/11/19 25 08/12/2024 URINE CULTU RE, UROLO GY RAIZ P result 1 COMMEN T No growt h in 36 - 48 hours . Not Available [facility] ([facility]) [address], [place], [address], 08/12/2024 12:05:44 Result Notes None recorded. Problems Name Problem SNOMED Code Status Onset Date Resolution Date Notes Provider Name and Address Organization Details Recorded Time Benign intracran ial hypertens ion 92728062 Active 2011 Loki Barajas MD [address] [facility],[address], [place], [address], [employer] 18:36:13 Mixed anxiety and depressiv e disorder 507203320 Active 2011 Loki Barajas MD [address] [facility],[address], [place], [address], [employer] 18:37:21 Hypertens wanda disorder 47102328 Active 2011 Loki Barajas MD [address] [place] [address],[address], [place], [address], [place] [employer] 18:36:41 Morbid obesity 968576871 Active 2011 Loki Barajas MD [address] [place] [address],[address], [place], [address], [place] - [email or web address] 18:36:22 Obstructi ve sleep apnea syndrome 31180930 Active 2012 Loki Barajas MD [address] [place] [address],[address], [place], [address], [facility], [employer] 18:36:34 Asthma 401831074 Active 2012 Loki Barajas MD [address] [place] [address],[address], [place], [address], [place] [employer], [employer] 18:37:24 History of adrenalec gerri 210181245491 106 Active 2012 Loki Barajas MD [address] [place] [address],[address], [place], [address], [facility], [employer] 18:37:15 Mixed conductiv e and sensorine ural hearing loss of right ear 014086915978 05 Active 2014 Mixed conductiv e and sensorine ural hearing loss, unilatera l, right ear, with unrestric peggy hearing on the contralat eral side; Note: Date Diagnosed : 11/15/2014 5:00 PM (H90.71) Loki Barajas MD [address] [place] [address],[address], [place], [address], [facility] 18:37:04 History of bypass of stomach 657762659 Active 2015 Loki Barajas MD [address] [place] [address],[address], [place], [address], [place] [employer] 18:37:18 Migraine 12700467 Active 2017 Loki Barajas MD [address] [place] [address],[address], [place], [address], [employer], [employer] 18:36:38 Osteoporo sis 30935186 Active 2021 Loki Barajas MD [address] [place] [address],[address], [place], [address], [employer] [place] - [employer], [employer] 18:36:25 Vertigo 519993536 Active 2021 Loki Barajas MD [address] [place] [address],[address], [place], [address], [facility], [employer] 18:36:44 Dental caries 47792412 Active 2023 Loki Barajas MD [address] [place] [address],[address], [place], [address], [employer] 18:36:56 Osteoarth ritis of right knee joint 019717049326 100 Active 2024 Loki Barajas MD [address] [place] [address],[address], [place], [address], [facility], [employer] 18:36:50 Problem Notes None recorded. Medical Equipment None Reported. Allergies Allergen ID Allergen Name Allergen Category Reaction Reaction Severity Criticality Documentation Date Start Date Code Code System Note Provider Name and Address Organization Details Recorded Time 48078 Nubain medicatio n Not available Not available Not available 05/19/2024 7550 RxNorm Not Available [facility] [employer] 15:03:10 61614 tramadol medicatio n Not available Not available Not available 06/07/2024 50962 RxNorm Not Available [facility] [employer] 17:33:16 09097 [place] medicatio n anaphylax is dyspnea Not available Not available [facility] 09/22/20242011 7238 RxNorm Loki Barajas MD [address] [place] [address],[address], [place], [address], [facility], [employer] 18:34:01 Medications Name Sig Start Date Stop Date Status Note LastModified by Organization Details LastModified Time medbox status USE DIRECTED active Not Available Not Available No t Available celecoxib 200 mg capsule TAKE 1 CAPSULE BY MOUTH TWICE DAILY FOR 10 DAYS active Not Available Not Available No t Available cyclobenzap rine 10 mg tablet TAKE 1 TABLET BY MOUTH EVERY 8 HOURS active Not Available Not Available No t Available amoxicillin 500 mg capsule TAKE 1 CAPSULE BY MOUTH EVERY 8 HOURS FOR 7 DAYS 09/22 completed Not Available Not Available Not Available hydrocortis one 0.5 % topical cream APPLY TOPICALLY TO THE AFFECTED AREA(S) TWICE DAILY active Not Available Not Available No t Available estazolam 2 mg tablet TAKE 1 TABLET BY MOUTH AT BEDTIME active Not Available Not Available No t Available fluticasone 250 mcg-salmete rol 50 mcg/dose blistr powdr for inhalation INHALE 1 PUFF BY MOUTH TWICE DAILY RINSE MOUTH AFTER USING. active Not Available Not Available No t Available acetaminoph en 325 mg tablet TAKE 2 TABLETS BY MOUTH EVERY 6 HOURS FOR 7 DAYS active Not Available Not Available No t Available estazolam 1 mg tablet TAKE 1 TABLET BY MOUTH AT BEDTIME active Not Available Not Available No t Available albuterol sulfate 2.5 mg/3 mL (0.083 %) solution for nebulizatio n INHALE 1 AMPULE USING A NEBULIZER EVERY 4 HOURS NEEDED FOR WHEEZING OR SHORTNESS OF BREATH active Not Available Not Available No t Available cetirizine 10 mg tablet TAKE 1 TABLET BY MOUTH EVERY DAY NEEDED FOR ALLERGIES active Not Available Not Available No t Available azithromyci n 250 mg tablet TAKE 2 TABLETS BY MOUTH ON DAY 1, THEN TAKE 1 TABLET DAILY ON DAYS 2-5 09/22 completed Not Available Not Available Not Available [...] BY MOUTH EVERY DAY FOR 5 DAYS 09/22 completed Not Available Not Available Not Available alendronate 70 mg tablet take 1 [...] MOUTH EVERY 6 HOURS FOR 10 DAYS 09/22 completed Not Available Not Available Not Available metronidazo le 500 mg tablet TAKE 1 TABLET BY MOUTH TWICE DAILY FOR 7 DAYS. AVOID ALCOHOLIC BEVERAGES WHILE TAKING. 09/22 completed Not Available Not Available Not Available phentermine 37.5 mg tablet TAKE 1 TABLET BY MOUTH EVERY MORNING BEFORE BREAKFAST active Not Available Not Available No t Available omeprazole 40 mg capsule,del ayed release TAKE 1 CAPSULE BY MOUTH EVERY MORNING BEFORE MEALS DO NOT BREAK, CRUSH, DISSOLVE OR CHEW active Not Available Not Available No t Available aspirin 81 mg tablet,eliana yed release TAKE 1 TABLET BY MOUTH EVERYDAY AT NOON active Not Available Not Available No t Available acetaminoph en 500 mg tablet TAKE 1 TABLET BY MOUTH EVERY 8 HOURS NEEDED FOR MILD OR MODERATE PAIN FOR UP TO 5 DAYS active Not Available Not Available No t Available vancomycin 125 mg capsule TOME 1 C PSULA POR V A ORAL CUATRO VECES AL D A POR 10 D 09/22 completed Not Available Not Available Not Available acetaminoph en ER 650 mg tablet,exte nded release TAKE 1 TABLET BY MOUTH EVERY 8 HOURS NEEDED FOR PAIN FOR UP TO 10 DAYS. DO NOT BREAK, CRUSH, DISSOLVE OR CHEW. active Not Available Not Available No t Available levothyroxi ne 100 mcg tablet TAKE 1 TABLET BY MOUTH EVERY MORNING active Not Available Not Available No t Available magnesium oxide 400 mg (241.3 mg magnesium) tablet TAKE 1 TABLET BY MOUTH EVERYDAY AT NOON WITH FOOD active Not Available Not Available No t Available methocarbam ol 750 mg tablet TAKE 2 TABLETS BY MOUTH FOUR TIMES DAILY NEEDED FOR PAIN active Not Available Not Available No t Available meclizine 25 mg tablet TAKE 1 TABLET BY MOUTH TWICE DAILY NEEDED active Not Available Not Available No t Available benzonatate 100 mg capsule Take 1 capsule 3 times a day by oral route as needed for 3 days. 10/13 completed Not Available Not Available Not Available venlafaxine 37.5 mg tablet TAKE 1 TABLET BY MOUTH EVERYDAY AT NOON active Not Available Not Available No t Available oseltamivir 75 mg capsule TAKE 1 CAPSULE BY MOUTH TWICE DAILY FOR 5 DAYS 09/22 completed Not Available Not Available Not Available lidocaine 5 % topical patch APPLY 1 PATCH TOPICALLY TO SKIN, LEAVE ON FOR 12 HOURS AND OFF FOR 12 HOURS DIRECTED active Not Available Not Available No t Available perphenazin e 4 mg tablet TAKE 1 TABLET BY MOUTH TWICE DAILY AT NOON AND IN THE EVENING active Not Available Not Available No t Available Advair Diskus 500 mcg-50 mcg/dose powder for inhalation INHALE 1 PUFF TWICE DAILY. RINSE MOUTH AFTER USING. (for asthma) active Not Available Not Available No t Available docusate sodium 100 mg capsule TAKE 1 CAPSULE BY MOUTH EVERY DAY active Not Available Not Available No t Available hydroxyzine HCl 25 mg tablet Take 1 tablet 3 times a day by oral route as needed, for anxiety. 2024 active Not Available Not Available Not Avai lable pyridoxine (vitamin B6) 100 mg tablet TAKE 2 TABLETS BY MOUTH ONCE DAILY AT NOON active Not Available Not Available No t Available gabapentin 100 mg capsule TAKE 1 CAPSULE BY MOUTH THREE TIMES DAILY active Not Available Not Available No t Available lorazepam 1 mg tablet TAKE 1 TABLET BY MOUTH EVERY DAY 30 MINUTES BEFORE PROCEDURE NEEDED FOR ANXIETY active Not Available Not Available No t Available polyethylen e glycol 3350 17 gram/dose oral powder TAKE 17 GM MIXED IN 8 OUNCES OF WATER ONCE DAILY active Not Available Not Available No t Available levofloxaci n 500 mg tablet TAKE 1 TABLET BY MOUTH EVERY DAY FOR 7 DAYS 09/22 completed Not Available Not Available Not Available ipratropium bromide 42 mcg (0.06 %) nasal spray USE 2 SPRAYS IN EACH NOSTRIL TWICE DAILY NEEDED FOR ALLERGIES OR RHINITIS active Not Available Not Available No t Available celecoxib 100 mg capsule TAKE 1 CAPSULE BY MOUTH TWICE DAILY FOR 2 DAYS active Not Available Not Available No t Available morphine 15 mg immediate release tablet TAKE 1 TABLET BY MOUTH TWICE DAILY NEEDED FOR PAIN active Not Available Not Available No t Available ondansetron 4 mg disintegrat ing tablet DISSOLVE 1 TABLET ENCIMA DE LENGUA EVERY 6 HOURS NEEDED FOR NAUSEA AND VOMITING active Not Available Not Available No t Available Ventolin HFA 90 mcg/actuati on aerosol inhaler INHALE 2 PUFFS BY MOUTH EVERY 6 HOURS NEEDED FOR WHEEZING active Not Available Not Available No t Available oxycodone 5 mg tablet TAKE 1 TABLET BY MOUTH EVERY 6 HOURS NEEDED FOR PAIN active Not Available Not Available No t Available chlorhexidi ne gluconate 0.12 % mouthwash SWISH 15 ML IN THE MOUTH OR THROAT FOR 30 SECONDS THEN SPIT OUT THREE TIMES DAILY IN THE MORNING, AT NOON, AND AT BEDTIME NEEDED FOR UP TO 5 DAYS 09/22 completed Not Available Not Available Not Available cholecalcif kimber (vitamin D3) 25 mcg (1,000 unit) tablet TAKE 1 TABLET BY MOUTH EVERYDAY AT NOON active Not Available Not Available No t Available hydrochloro thiazide 12.5 mg tablet TAKE 1 TABLET BY [...] FOR ITCHING active Not Available Not Available No t Available Asmanex HFA 200 mcg/actuati on aerosol inhaler INHALE 1 PUFF BY MOUTH TWICE DAILY. RINSE MOUTH AFTER USING. active Not Available Not Available No t Available Lidocaine Pain Relief 4 % topical patch APPLY 1 PATCH TO AFFECTED AREA(S) EVERY DAY active Not Available Not Available No t Available Wegovy 1.7 mg/0.75 mL subcutaneou s pen injector INJECT ONE PEN (=1.7MG) SUBCUTANE OUSLY ONCE A WEEK DIRECTED active Not Available Not Available No t Available Wegovy 1 mg/0.5 mL subcutaneou s pen injector INJECT ONE PEN (=1MG) SUBCUTANE OUSLY ONCE A WEEK DIRECTED active Not Available Not Available No t Available [employer]y 0.25 mg/0.5 mL subcutaneou s pen injector INJECT 0.25mg (=1 PEN) SUBCUTANE OUSLY ONCE PER WEEK ON THE ON THE SAME DAY active Not Available Not Available No t Available Wegovy 0.5 mg/0.5 mL subcutaneou s pen injector INJECT ONE PEN (=0.5MG) SUBCUTANE OUSLY ONCE A WEEK DIRECTED active Not Available Not Available No t Available Zepbound 10 mg/0.5 mL subcutaneou s pen injector INJECT ONE PEN (=10MG) SUBCUTANE OUSLY ONCE A WEEK DIRECTED active Not Available Not Available No t Available Zepbound 5 mg/0.5 mL subcutaneou s pen injector INJECT ONE PEN (=5MG) SUBCUTANE OUSLY ONCE A WEEK DIRECTED active Not Available Not Available No t Available Zepbound 15 mg/0.5 mL subcutaneou s pen injector INJECT ONE PEN (=15MG) SUBCUTANE OUSLY ONCE A WEEK DIRECTED active Not Available Not Available No t Available Zepbound 12.5 mg/0.5 mL subcutaneou s pen injector INJECT ONE PEN (=12.5MG) SUBCUTANE OUSLY ONCE A WEEK DIRECTED active Not Available Not Available No t Available Zepbound 7.5 mg/0.5 mL subcutaneou s pen injector INJECT ONE PEN (=7.5MG) SUBCUTANE OUSLY ONCE A WEEK DIRECTED active Not Available Not Available No t Available Vitals Date Recorded Body temperature Heart rate Oxygen saturation Oxygen saturation in Arterial blood by Pulse oximetry Respiratory rate Body height Body weight Systolic And Diastolic Provider Name and Address Organization Details Last Updated DateTime 5 97.8 [degF] 92 /min 99 % 99 % 16 /min 160.02 cm 52887.7 44 g 138/66 mm[Hg] Not Available [employer] 5 18:52:16 Date Recorded Body weight Heart rate Respiratory rate Oxygen saturation Oxygen saturation in Arterial blood by Pulse oximetry Body height Body temperature Systolic And Diastolic Provider Name and Address Organization Details Last Updated DateTime 5 36047.7 44 g 100 /min 18 /min 100 % 100 % 160.02 cm 98.7 [degF] 118/78 mm[Hg] Not Available [employer] 5 18:49:58 Date Recorded Oxygen saturation Oxygen saturation in Arterial blood by Pulse oximetry Heart rate Respiratory rate Body temperature Systolic And Diastolic Provider Name and Address Organization Details Last Updated DateTime 5 96 % 96 % 96 /min 18 /min 98.2 [degF] 120/70 mm[Hg] Not Available [employer] 5 18:32:37 Date Recorded Body temperature Oxygen saturation Oxygen saturation in Arterial blood by Pulse oximetry Heart rate Respiratory rate Systolic And Diastolic Provider Name and Address Organization Details Last Updated DateTime 5 97.6 [degF] 98 % 98 % 96 /min 16 /min 104/72 mm[Hg] Not Available [employer] 10:36:11 Date Recorded Respiratory rate Oxygen saturation Oxygen saturation in Arterial blood by Pulse oximetry Heart rate Body temperature Systolic And Diastolic Provider Name and Address Organization Details Last Updated DateTime 5 18 /min 99 % 99 % 98 /min 98 [degF] 132/84 mm[Hg] Not Available [employer] 17:41:46 Social History None recorded. Functional Status None recorded. Mental Status None recorded. Family History Nothing Reported. Medical History No medical history recorded. Gynecological HistoryNo gynecological history recorded. Obstetrics History GPAL:G 0 P 0 0 0 0 Past Encounters Encounter ID Performer Location Encounter Start Date Encounter Closed Date Diagnosis/Indication Diagnosis SNOMED-CT Code Diagnosis ICD10 Code Diagnosis IMO Codes Diagnosis Note [id number] Abran Hayward MD [facility] [address] [place] [phone] 01/31/2024 14:50:58 01/31/2024 16:04:33 [id number] Jameel Haddad MD [facility] [address] [place] [phone] 02/03/2024 19:16:36 02/03/2024 22:59:01 Viral upper respiratory tract infection 992350091 J06.9 S/p treatment for bronchitis with Azithromyc in. Negative COVID/flu test. Able to maintain PO hydration. Discussed red flag signs for which to seek higher level of care. [id number] Rick Hartmann MD [facility] [address] [place] [phone] 02/24/2024 19:36:29 02/24/2024 20:10:20 Diarrhea 26478999 R19.7 As noted, we were called to see this patient regarding concerns of gastroente ritis symptoms. Evaluation in the field was performed by my airplane fueler colleague, as noted above, I provided real-time [...] significan t hematochez ia, non-resolv ing diarrhea. [id number] Loki Barajas MD [facility] [address] [place] [phone] 03/30/2024 21:41:10 03/31/2024 15:17:43 Localized eruption of skin 539294491 R21 [id number] Cody Spicer MD [facility] [address] [place] [phone] 05/04/2024 15:18:09 05/04/2024 20:57:19 Abdominal pain 07099765 R10.9 [id number] Christina Ashford MD [facility] [address] [place] [phone] 05/19/2024 12:56:41 05/19/2024 14:17:51 Osteoarthritis of multiple joints 168182877 M15.9 63531854 advised ice / wrapped in a towel [...] makes her feel Chronic pain syndrome 37 8202748 G89.4 37165 Explained to patient we cannot offer controlled substances through this program judyt kimi and since she states she cannot take ketorolac that she gets severe nausea and vomiting even when administer ed parenteral ly and she is already taking maximum dose Tylenol 1 g 3 times a day, we have really nothing else to offer her for pain-she verbalized understand ing. Advise close follow-up with her PCP and pain management and reviewed red flags [id number] Trisha Bello MD [facility] [address] [place] [phone] 06/07/2024 18:25:16 06/07/2024 21:15:18 Pain 05640824 R52 244653 As noted, we were called to see this patient regarding concerns of acute on chronic back and joint pain. Evaluation in the field was performed by my airplane fueler colleague, as noted above, I provided real-time [...] changes to consciousn ess, chest pain, dyspnea. [id number] Trudy Calderon MD [facility] [address] [place] [id number] 06/16/2024 20:51:22 06/18/2024 23:49:55 Osteoarthritis of left knee joint 5364316073 66276 M17.12 [id number] Jameel Haddad MD [facility] [address] [phone] 08/10/2024 16:44:04 08/10/2024 20:30:05 Flank pain 394217703 R10.9 34100 Acute on chronic pain. Has urology appointmen t tomorrow for bladder testing. No bowel or bladder incontinen ce. U/A negative. Will send culture to lab. Chronic pain syndrome 37 [id number] G89.4 [id number] Acute on chronic. Has hx of spinal [...] can use intermitte ntly during the week. [id number] JANA EMMANUEL MD [facility] Medical [address] [address] 08/24/2024 20:18:45 08/24/2024 22:21:01 Osteoarthritis of knee [id number] M17.10 [id number] Natacha Dietrich MD [place] [phone] 08/31/2024 18:52:14 08/31/2024 21:32:40 Anxiety [id number] F41.9 71730 Chronic pain [id number] G8 9.29 [id number] VIDAL GREEN MD [address] [address] 09/16/2024 18:37:31 09/18/2024 09:19:40 Pain of bilateral knee regions [id number] 62428 M25.561 M25.562 [id number] Evaluation in the field was performed by my airplane fueler colleague, as noted above, I provided real-time direction and supervisio n for this visit. The evaluation revealed 63-year-ol d female with a complex medical history including anxiety disorder, asthma, chronic pain, depression , osteoporos is, hypothyroi dism, GERD, sleep apnea, inflammato ry bowel disease (Crohn s and ulcerative colitis), and history of cancer, presents with generalize d musculoske letal pain, primarily bilateral knee pain (right > left) and acute-on-c hronic low back pain. She has known spinal stenosis and bilateral knee osteoarthr itis (previousl y received intra-henna cular gel injections ). She recently discontinu ed gabapentin and another unspecifie d medication due to 22 lb weight gain and lack of benefit. She reports severe pain today in her back and knees, affecting her mobility. 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 She denies numbness, tingling, or bowel/blad eldon dysfunctio n. States she has had good relief with Toradol in the past. She denies any history of GI bleed, CKD, and is not on anticoagul ation. VS: BP 118/78, HR 100, RR 18, SpO2 sat 100%, Room Air at RestTemp 98.7 FExam:AAOx 3, tearful but cooperativ eDiffuse tenderness to palpation over the low backBilate ral knee tenderness to palpation, right greater than leftFull strength, intact sensation, and palpable distal pulses in all extremitie sAmbulates with mild stooped posture due to painLabs (from 08/09/24):B UN: 15 mg/dLCreat inine: 1.2 mg/dLAller gies: Reviewed Impression :Acute on chronic low back pain with underlying spinal stenosisBi lateral knee pain, likely secondary to osteoarthr itisHistor y of pseudotumo r cerebri limiting NSAID use, but no current contraindi cation for short-term ToradolNo red flag features (no neurologic deficits, no signs of systemic illness) Plan:Admin istered Toradol 30 mg IM x1,Encoura ged use of acetaminop hen as tolerated for ongoing pain (max 3g/day)Rec ommend topical analgesics (e.g., diclofenac gel) for knees if not already trialedRei nforced mobility with support and use of assistive devices as neededFoll ow up with PCP or pain management for long-term strategy given multiple medication sensitivit ies and treatment- limiting comorbidit iesRed flags discussed: weakness, numbness, incontinen ce, worsening pain, fever Primary care, consider__ _ Dispositio n: We discussed the diagnostic uncertaint [...] new or worsening serious symptoms, particular ly weakness, numbness, incontinen ce, worsening pain, fever [id number] Loki Barajas MD [facility] ED Medical [address] [phone] 09/22/2024 18:32:34 09/23/2024 08:55:03 Backache [id number] M54.9 [id number] Steven Lange MD [facility] ED Medical [address] [address] 10/03/2024 10:36:07 10/03/2024 20:26:38 Viral disease [id number] B34.9 [id number] Loki Barajas MD [facility] ED Medical [address] [address] 10/23/2024 17:41:41 10/23/2024 23:20:23 History of fall [id number] Z91.81 [id number] Health Concerns Section Related Observation LastModified by Organization Detai ls LastModified Time None Recorded Concern Status LastModified by Organization Details LastModified Time None Recorded Advance Directives Directive None Recorded Payers Insurance Date Sequence Insurance Name Policy Number Policy Schrader Covered Member ID Schrader Member ID Guarantor Name 10/23/2024 1 [facility] - DOS ON OR AFTER 2022 - DUAL ELIGIBLE - NURSING HOME OPTIONS AND ONE CARE (MEDICARE REPLACEMENT/ADV ANTAGE - HMO) Mag Ayala [id number] Mag Ayala Notes Date Note Type Note Provider Name and Address Organization Details Recorded Time 08/31/2024 text/html ROS as noted in the [facility] CRC Nurse Triage Notes (Melanie Grubbs): Reason For Request: anxiety Patient Reports: Anxiety Denies: Hearing voices, thoughts of suicidal or homicidal ideation Reports of Suicidal Ideation with a plan, prior attempts in past Reports of Suicidal or Homicidal ideation or self-injurious behavior Chief Complaints: Mental Health, Extremity Pain PMH: Anxiety Disorder, Asthma, Chronic Pain, Depression, Osteoporosis, Hypothyroidism, Gastroesophageal Reflux Disease (GERD), Sleep Apnea, Inflammatory Bowel Disease (Crohn's Disease, Ulcerative Colitis), Cancer PMH Reviewed at 08/31/2024 - 17:13 Allergies Reviewed at 08/31/2024 - 17:13 Comments: 63 y.o female complains of Mental Health, Extremity Pain Patient is reporting increased anxiety due to recent bad news. Was unable to reach psychiatrist. Patient is very tearful. Patient has taken Ativan in the past several times in the last 4 years. Offered to have patient speak to resource line. Patient states she already spoke to crisis and therapist today. Patient has a pain in her heart Patient denies self harm. Patient needs recommendation for medication to take for relief. Has been crying for the last 2 days. Patient also reporting chronic pain to knees and back. Takes anti-inflammatory which is not helping, was going to reach out to pain management. Would also like this addressed I provided information on the mobile health provider response time and advised the patient and/or caregiver to monitor reported signs and symptoms. I discussed the warning signs of when to seek emergency care. [employer] Organization Information for Serg Romero Business Legal Name: [employer]. Address: [address] [place], [place] [address] [address], Corporate Travel Manager: Rich ENCARNACION No.: [id number] [employer] POC Test Results from [employer]ero EKG (18:51:53) EKG test performed. Attachments uploaded as part of this test result can be found under Documents section. ...................... ...................... ...................... ...................... ...................... ...................... ......... [employer] Note From Serg Romero: SC1 sent to the above address for [...] but never received the call back. While PR1 was on scene the pt was calming down with conversation. Dr Short prescribed Hydroxyzine for th ept and she would pick it up in the morning. The pt asked if she could take a Benadryl tonight, and Dr Short advised that she could and the pt was going to take one of her own Benadryl 25mg PO just before she goes to bed this evening. The pt was advised of the warning signs, chest pain and or severe shortness of breath, syncope, fever, altered mental status. [facility]. WRR. ...................... ...................... ...................... ...................... ...................... ...................... ......... [facility] Consulted: Natacha Dietrich ...................... ...................... ...................... ...................... ...................... ...................... ......... Disposition: Mel Natacha Dietrich MD [address] [facility],[address], [place], [address], [employer] 08/31/2024 20:00:07 09/16/2024 text/html ROS as noted in the [facility] CRC Nurse Triage Notes (Yudelka Cintron): Reason For Request: Pt reporting lower back pain>knee pain>stenosis in spinal cordDenies: Leon Flash, circumferential leon Leon reported with black tissue to the area Open skin area after a fall with uncontrolled bleeding Abscess/infection with streaking noted, presence of fever or without Chief Complaints: Back Pain, Extremity PainPMH: Anxiety Disorder, Asthma, Chronic Pain, Depression, Osteoporosis, Hypothyroidism, Gastroesophageal Reflux Disease (GERD), Sleep Apnea, Inflammatory Bowel Disease (Crohn's Disease, Ulcerative Colitis), CancerPMH Reviewed at 09/16/2024:08Allergies Reviewed at 09/16/2024:08Comments: 63 y.o female complains of Back Pain, Extremity Pain Patient calling in to place a referral.Patient with acute on chronic back pain, known spinal stenosis, as well as bad knees.Patient reports she was on gabapentin and another medication, but since she has gained 22lbs since June and it was not helping, he discontinued it.She has also had gel put into her knees.Today she reports her back is in severe pain and her knees feel weak.She cannot take IBU per her neurologist due to a tumor, she has not taken any tylenol.She denies any numbness or tingling, no loss of bowel or bladder.Patient very tearful due to the pain.She would like to be evaluated for a toradol shot, as they have provided her much relief in the past. I provided information on the mobile health provider response time and advised the patient and/or caregiver to monitor reported signs and symptoms. I discussed the warning signs of when to seek emergency care. ...................... ...................... ...................... ...................... ...................... ...................... ......... [employer] Note From Clinton Minaya: 63 year old female chief complaint today of all over body pain, but particularly in her back right knee and mild headache. Patient has been taking Tylenol for last two days with minimal relief. Patient had a 22 pound waking with gabapentin and other medication s for pain, relief, and so physician took her off most of her pain relief medication s besides topical patches. Back was painful to palpation everywhere knees were painful to palpation post motor sensation intact times four positive pulses in feet patient able to walk with a little bit of a stoop forward patient very tearful. Patient states she has gotten relief from Toradol in past and would like to try it again. Dr. Green called and agreed to 30 mg of [...] is slow to find a suitable solution. [facility] Medication Orders: ketorolac 30 mg/mL injection solution: Administered ...................... ...................... ...................... ...................... ...................... ...................... ......... [facility] Consulted: Vidal Green ...................... ...................... ...................... ...................... ...................... ...................... ......... Disposition: Mel VIDAL GREEN MD [address] [facility],[address], [place], [phone], [facility] 09/16/2024 20:31:53 09/22/2024 text/html CRC Nurse Triage Notes (Parrish Whaley): Reason For Request: Pt requesting help>call immediately tx'd to CRCDenies: Worst Headache of life New onset of vision loss Sudden onset -unilateral weakness/gait disturbance Fall with head strike and altered LOC New onset of Slurred speech or difficulty finding words Sudden Mental status changes Head pain with fever chills and neck pain Seizure activity Chief Complaints: Back PainPMH: Anxiety Disorder, Asthma, Chronic Pain, Depression, Osteoporosis, Hypothyroidism, Gastroesophageal Reflux Disease (GERD), Sleep Apnea, Inflammatory Bowel Disease (Crohn's Disease, Ulcerative Colitis), CancerPMH Reviewed at 09/22/2024 - 15:03Allergies Reviewed at 09/22/2024 - 15:03Comments: 63 y.o female complains of Back PainPatient calling reporting mid lower back pain since last week. Patient also reporting pain in L shoulder. Patient reports she was seen by [facility] last week and had Toradol shot that helped her. Patient reports the pain is so severe she is having trouble sleeping. Patient reports she was recently taken off her Gabapentin due to weight gain. Patient denies pain radiating down legs, but reports her legs feel like gelatin . Patient denies numbness or tingling. Patient reports comes and goes at times. Patient reports she has tried laying in multiple positions, walking, ice and Bengay all have not helped her symptoms. Patient reports sitting for too long makes the pain worse. Patient last took Tylenol this morning with little relief in symptoms. I provided information on the mobile health provider response time and advised the patient and/or caregiver to monitor reported signs and symptoms. I discussed the warning signs of when to seek emergency care -Belem Whaley RN ...................... ...................... ...................... ...................... ...................... ...................... ......... [employer] Note From Tye Jasper: SC12 dispatched to the address listed above for the report of a female constitution party with back pain. Arrival on scene, patient found inside apartment seated in chair, alert and oriented x4, patent airway, breathing non labored speaking in complete sentences, skin WPD in no obvious distress. +/= Chest rise. -SOB, -CP, -NVD, -Trauma, -Fever. GCS 15. Patient reports history of chronic back pain with history of 2 slipped disks, osteoporosis, and osteoarthritis. Patient reports current flare up of back pain started this morning at 0400, reports back pain does not worsen on movement or palpation but does worsen when she is sitting for a while. Patient describes back pain starting in the lower middle back and radiating up the spine to her left shoulder. Patient reports that she took Tylenol this morning without improvement, reports she has not taken any Ibuprofen today, patient denies any kidney disease. Patient reports that she was seen by [facility] last week for same issue and was given Toradol IM, patient reported improvement in pain with Toradol. Patient denies any recent trauma, denies fever/chills. [facility] noted no redness or bruising to the back. Patient vital signs obtained as noted. [facility] consulted, provided orders for 30mg Toradol IM. 30mg Toradol IM administered in right deltoid, six patient rights verified prior. [facility] advised that she would not be able to have more Toradol for another 2-3 weeks. Red flags discussed with patient, advised to call 911 if her condition worsens. SC12 Clear. [facility] Medication Orders: ketorolac 30 mg/mL injection solution: Administered ...................... ...................... ...................... ...................... ...................... ...................... ......... [facility] Consulted: Loki Barajas ...................... ...................... ...................... ...................... ...................... ...................... ......... Disposition: Fulfilled Loki Barajas MD [address] [place] [address],[address], [place], [address], [employer] 09/22/2024 23:01:57 10/03/2024 text/html ROS as noted in the [facility] CRC Nurse Triage Notes (Yudelka Cintron): Reason For Request: Patient has a cough and a cold. Denies: Increased work of breathing/labored with or without fever Unable to speak in full sentences without distress Discoloration of skin -cyanosis Needs to sleep sitting up, can t catch breath Shortness of breath in setting of confusion Chief Complaints: Common Cold PMH: Anxiety Disorder, Asthma, Chronic Pain, Depression, Osteoporosis, Hypothyroidism, Gastroesophageal Reflux Disease (GERD), Sleep Apnea, Inflammatory Bowel Disease (Crohn's Disease, Ulcerative Colitis), Cancer PMH Reviewed at 10/03/2024 Allergies Reviewed at 10/03/2024 Comments: 63 y.o female complains of Common Cold Patient with a 1 day history of severe cold symptoms. Patient reports dry, non-productive, croupy cough, nasal and chest congestion, shortness of breath, sore throat, +chills yesterday, +dizziness and headache yesterday, patient still currently in bed and has not gotten up, she is unsure if she has a fever, endorses no taste. She feels weak and fatigued. Denies any nausea, vomting or diarrhea. She has an albuterol neb and inhaler, but has not had to use. She would like to be evaluated. I provided information on the mobile health provider response time and advised the patient and/or caregiver to monitor reported signs and symptoms. I discussed the warning signs of when to seek emergency care. [employer] Organization Information for [employer] Business Legal Name: [employer]. Address: [address] [place] [address], Corporate Travel Manager: Rich Pillai MD [place] No.: [id number] [employer] POC Test Results from [employer] Rapid COVID antigen (10:35:22) COVID: - Attachments uploaded as part of this test result can be found under Documents section. Rapid influenza antigen (10:35:23) Flu: - Attachments uploaded as part of this test result can be found under Documents section. ...................... ...................... ...................... ...................... ...................... ...................... ......... [employer] Note From Jasper Gamble: SC12 dispatched to the address listed above for the report of a female constitution party with flu like symptoms. Arrival on scene, [...] noted. COVID/FLU rapid performed and negative for all. [facility] consulted, provided orders for 200mg Benzonatate PO and advised he would send prescription to patient preferred pharmacy. 200mg Benzonatate PO administered with incident, six patient rights verified prior. Red flags discussed with patient, advised to call 911 if her condition worsens or if she experiences any life threatening symptoms. SC12 Clear. [facility] Lab Orders: rapid flu (A+B): Performed rapid SARS CoV 2 Ag, QL IA, respiratory specimen: Performed [facility] Medication Orders: benzonatate 100 mg capsule: Performed ...................... ...................... ...................... ...................... ...................... ...................... ......... [facility] Consulted: Steven Lange ...................... ...................... ...................... ...................... ...................... ...................... ......... Disposition: Fulfilled Steven Lange MD [address] [place] [address],[address], [place], [address], [employer] 10/03/2024 11:50:42 10/23/2024 text/html CRC Nurse Triage Notes (Suri Benavides): Reason For Request: Pt reporting a fall from last week on her left side>reporting a humongous bruise today during her shower>notes it is painful and starting to feel pain in her hand Patient Reports: Weakness with fall, able to move all extremities Denies: Falls with head strike and LOC Falls from a standing position, no LOC, patient is amnestic to the event Falls with isolated injury and deformity noted to limb Falls with inability to move post fall Cool extremities after fall or injury Chief Complaints: Falls PMH: Anxiety Disorder, Asthma, Chronic Pain, Depression, Osteoporosis, Hypothyroidism, Gastroesophageal Reflux Disease (GERD), Sleep Apnea, Inflammatory Bowel Disease (Crohn's Disease, Ulcerative Colitis), Cancer PMH Reviewed at 10/23/2024 - 15:30 Allergies Reviewed at 10/23/2024 15:30 Pain Assessment: Level 8 out of 10 Comments: 63 y.o female complains of Falls Patient self-reporting symptoms: Fell on 10/19 - fell from door to living room - denies head strike or LOC Bruise is size of a serving plate - felt pain since fall but just noticed the bruise today In the middle of the bruise very dark Has some carpet rash from fall Fell on right side but bruising is on the left side - flank area Denies bumping into something on that left side Reports knees collapsing from time to time Not on anticoagulation, says she was prescribed ASA but doesn't Does not have active cancer is not on any treatment - past kidney cancer Requesting instED visit I provided information on the mobile health provider response time and advised the patient and/or caregiver to monitor reported signs and symptoms. I discussed the warning signs of when to seek emergency care. ...................... ...................... ...................... ...................... ...................... ...................... ......... [employer] Note From Nash Strange: Pt seen for primary complaint of bruise secondary to a fall. Met yang x 4 Pt inside her residence. Pt ambulating under her own power without difficulty. Pt reports a fall from standing 4 days ago. Pt reports she lost her balance and fell, denies any dizziness, syncope or other reason that caused the fall. Pt reports she did not strike her head during the fall and there was no LOC. Pt reports she immediately got up after falling and has been ambulatory since. Pt reports bruise to her L thigh and pain to her L shoulder, both caused from the fall. Pt has + CSM x 4, full range of motion in all extremities. Pt presents with a bruise to the outside of her L thigh, approx 3 inches across. Exam of L shoulder unremarkable. Further assessment of L hip, upper & lower leg unremarkable. Pt reports no further bruising or pain. Pt denies all other complaints. Pt denies any use of anticoagulants. Pt exam shows no further findings. VS as noted. [facility] contacted and advised of Pt complaint, presentation and exam findings. [facility] has no further orders at this time. Pt has no further questions or concerns. Pt advised of red flags to be aware of and to seek medical attention should they arise. Call closed. ...................... ...................... ...................... ...................... ...................... ...................... ......... [facility] Consulted: Loki Barajas ...................... ...................... ...................... ...................... ...................... ...................... ......... Disposition: Fulfilled Loki Barajas MD [address] [facility],[address] [facility], [place], [address], [employer] [facility] 10/23/2024 22:29:24 OBGyn Episode No OBEpisode recorded.
--- OUTSIDE RECORDS SUMMARY | 2024-12-13 14:18 | XMS_ITS | Encounter Summary ---
Author Organization [employer] Address [address] [facility] 7t [place] [address] Care Team Providers Care Drop Worker Name Role Phone Name, Gregg DIAMOND Primary Care Provider [phone] Reason for Visit * Reason Onset Date Comments PT1 07/27/2023 Encounter Details Date Type Department Care Team ([facility] st Contact Info) Description 07/27/2023 Telephone [facility] MEDICINE [address] [place] [address] Name, MD Gregg [address] [place] [address] PT1 Social History Tobacco Use Types Packs/Day [...] name: Dr. Carson Smith MD Facility Address: [address] [place] [address] [address], [facility], [address] Escort needed: Y/N: No Do you have a wheelchair: Y/N: No If yes- Manual or electric: Visits: 2-3 Next upcoming appt 08/03/23 documented in this encounter Plan of Treatment Upcoming Encounters Date Type Department Care Team (Late st Contact Info) Description 12/18/2024 1:30 PM EST Office Visit [facility] ADULT DENTAL [address] [place] [address] Faye Mi 03/06/2025 9:00 AM EST Office Visit [facility] MEDICINE [address] [place] [address] NameGregg MD [address] [place] [address] documented as of this encounter Visit Diagnoses Not on filedocumented in this encounter Additional Health Concerns Assessment Noted Time PHQ-9 Depression Total Score: 7 03/04/19 23 9:17 AM EST documented as of this encounter Care Teams Drop Worker Relationship Specialty Start Date End Date NameGregg MD [address] [place] [id number] PCP - General Family Medicine 04/16/15 [facility] 05/23/24 documented as of this encounter
--- OUTSIDE RECORDS SUMMARY | 2024-12-13 14:18 | XMS_ITS | Encounter Summary ---
Author Organization [employer] Address [address] [facility] 7t [place] [address] Care Team Providers Care Record Press Tender Name Role Phone Name, Gregg DIAMOND Primary Care Provider [phone] Reason for Visit * Reason Onset Date Comments ER Follow-up 05/02/2024 Nurse Triage 05/02/2024 Encounter Details Date Type Department Care Team ([facility] st Contact Info) Description 05/02/2024 Telephone [facility] MEDICINE [address] [place] [address] Name, MD Gregg [address] [place] [address] ER Follow-up; Nurse Triage Social History Tobacco [...] of the rollator walker. TC placed to [facility] pharamcyregarding the fosamax. Lori states [...] in June as she will leaving for [place] at the beginning of June Pt requesting a call from PCP. [employer] found telehealth visit in PCP schedule. Pt [...] find out more information. TC placed to [facility] pharamcy regardingthe fosamax. Lori states [...] She states that she went to [place] [facility] yesterday due to right leg pain and right knee isswollen. Pt. Was also having throbbing pain in left side of groin. [facility] did not find any blood clot in leg and Xray of left hip and pelvis-negative. ED is recommending referral to [facility] according to pt. Pt does not want [...] that she remembers. Pt. Needs referral to [facility]. Offered pt. Appt. Today but, pt. Only wants to speak to pcp and is requesting appt. With PCP only or call from PCP to discuss updates and needs. Please get back to pt. To let her know if any of these needs can be met Will send request to Clinical coordinators to get [facility] report from yesterday into pt. Chart. Multiple needs. * Telephone Encounter - Shubham Booth - 05/02/2024 10:20 AM EDT Patient calling to report ED visit on : Date: 05/01/2024 Hospital: [facility] Seen for: Knee pain , groin pain [...] Description 12/18/2024 1:30 PM EST Office Visit [facility] ADULT DENTAL [address] [place] [phone] aFye Mi 03/06/2025 9:00 AM EST Office Visit [facility] MEDICINE [address] [place] [address] Name, MD Gregg [address] [place] [phone] documented as of this encounter Visit Diagnoses Not on filedocumented in this encounter Additional Health Concerns Assessment Noted Time PHQ-9 Depression Total Score: 0 09/01/19 10:42 AM EDT documented as of this encounter Care Teams Record Press Tender Relationship Specialty Start Date End Date Gregg Gandhi MD [address] [place] [phone] PCP - General Family Medicine 04/16/15 [facility] 05/23/24 documented as of this encounter
--- OUTSIDE RECORDS SUMMARY | 2024-12-13 14:19 | XMS_ITS | Encounter Summary ---
Author Organization [employer] Address 75 [facility] 7t [place] [address] Care Team Providers Care Ammunition Specialist Name Role Phone Name, Gregg DIAMOND Primary Care Provider [phone] Encounter Details Date Type Department Care Team (Latest Contact Info) Description 12/25/[address] [facility] CONVERSIONS Dental, Provider, DDS Social History [...] 12/18/2024 1:30 PM EST Office Visit [facility] ADULT DENTAL [address] [place] [address] Faye Mi 03/06/2025 9:00 AM EST Office Visit [facility] MEDICINE [address] [place] [address] NameGregg MD [address] [place] [address] documented as of this encounter Visit Diagnoses Not on filedocumented in this encounter Care Teams Ammunition Specialist Relationship Specialty Start Date End Date Gregg Gandhi MD [address] [place] [id number] PCP - General Family Medicine 04/16/15 [facility] 05/23/24 documented as of this encounter
--- OUTSIDE RECORDS SUMMARY | 2024-12-13 14:19 | XMS_ITS | Encounter Summary ---
Author Organization [employer] Address [address] [facility] [address] 7[address] [place] [address] Care Team Providers Care Health Science Writer Name Role Phone Name, Gregg DIAMOND Primary Care Provider [phone] Reason for Visit * Reason Onset Date Comments Appointment Request 05/24/2024 Encounter Details Date Type Department Care Team ([facility] Contact Info) Description 05/24/2024 Telephone [facility] MEDICINE [address] [place] [address] Name, MD Gregg [address] [place] [address] Appointment Request Social History Tobacco Use Types [...] the phone she will. Contact pt at [phone] documented in this encounter Plan of Treatment Upcoming Encounters Date Type Department Care Team (Late st Contact Info) Description 12/18/2024 1:30 PM EST Office Visit [facility] ADULT DENTAL [address] [place] [address] Faye Mi 03/06/2025 9:00 AM EST Office Visit [facility] MEDICINE [address] [place] [address] Name, MD Gregg [address] [place] [address] documented as of this encounter Visit Diagnoses Not on filedocumented in this encounter Additional Health Concerns Assessment Noted Time PHQ-9 Depression Total Score: 0 09/01/19 24 10:42 AM EDT documented as of this encounter Care Teams Health Science Writer Relationship Specialty Start Date End Date Name, MD Gregg [address] [place] [address] PCP - General Family Medicine 04/16/15 [facility] 05/23/24 documented as of this encounter
--- OUTSIDE RECORDS SUMMARY | 2024-12-13 14:19 | XMS_ITS | Encounter Summary ---
Author Organization [employer] Address [address] [facility] 7t [place] [address] Care Team Providers Care Armature Inspector Name Role Phone Name, Gregg DIAMOND Primary Care Provider [phone] Reason for Visit * Reason Onset Date Comments Medication Question 09/04/2024 Encounter Details Date Type Department Care Team ([facility] Contact Info) Description 09/04/2024 Telephone [facility] MEDICINE [address] [place] [address] Name, MD Gregg [address] [place] [address] Medication Question Social History Tobacco Use Types [...] increase dosage of zepbound. Contact pt at [phone] for any questions. documented in this encounter Plan of Treatment Upcoming Encounters Date Type Department Care Team (Late st Contact Info) Description 12/18/2024 1:30 PM EST Office Visit [facility] ADULT DENTAL [address] [place] [address] Faye Mi 03/06/2025 9:00 AM EST Office Visit [facility] MEDICINE [address] [place] [address] NameGregg MD [address] [place] [address] documented as of this encounter Visit Diagnoses Not on filedocumented in this encounter Additional Health Concerns Assessment Noted Time PHQ-9 Depression Total Score: 1 07/18/19 25 11:20 AM EDT documented as of this encounter Care Teams Armature Inspector Relationship Specialty Start Date End Date NameGregg MD [address] [place] [address] PCP - General Family Medicine 04/16/15 [facility] 05/23/24 documented as of this encounter
--- OUTSIDE RECORDS SUMMARY | 2024-12-13 14:19 | XMS_ITS | Encounter Summary ---
Author Organization [employer] Address [address] [facility] 7t [place] [address] Care Team Providers Care Floor Care Specialist Name Role Phone Name, Gregg DIAMOND Primary Care Provider [phone] Encounter Details Date Type Department Care Team (Latest Contact Info) Description 09/27/2018 Abstract [facility] CONVERSIONS Dental, Provider, DDS Social History [...] Description 12/18/2024 1:30 PM EST Office Visit [facility] ADULT DENTAL [address] [place] [phone] Faye Mi 03/06/2025 9:00 AM EST Office Visit [facility] MEDICINE [address] [place] [address] NameGregg MD [address] [place] [address] documented as of this encounter Visit Diagnoses Not on filedocumented in this encounter Care Teams Floor Care Specialist Relationship Specialty Start Date End Date Gregg Gandhi MD [address] [place] [phone] PCP - General Family Medicine 04/16/15 [facility] 05/23/24 documented as of this encounter
--- OUTSIDE RECORDS SUMMARY | 2024-12-13 14:19 | XMS_ITS | Data Portability ---
Author Organization [place] [facility], Allergy Address [address] [address] Assessment No assessment recorded. Plan of Treatment Reminders Order Date Submit Date Provider Last Modified By Organization Details Last Modified Time Details Appointments Establish ed 15 2024 10:00A M JOSUE SHEPHERD MD Not available Not available Not available Lab None recorded. Referral None recorded. Procedures None recorded. Surgeries None recorded. Imaging None recorded. Medication Orders None recorded. Patient TargetsNo targets recorded. Patient InstructionsNo instructions recorded. Reason for Referral None Reported. Problems Name Problem SNOMED Code Status Onset Date Resolution Date Notes Provider Name and Address Organization Details Recorded Time Impacted cerumen 15418010 Active 2014 Disorders of external ear: Impacted cerumen; Note: Date Diagnosed : 11/12/2014 9:15 PM (380.4) Not Available [facility] 4 02:41:52 Unilatera l sensorine ural hearing loss with unrestric peggy hearing on the contralat eral side Active 2014 Sensorine ural HL, unilatera l; Note: Date Diagnosed : 11/12/2014 9:56 PM (389.15) Not Available [facility] 4 02:41:44 Infective otitis externa 20931887 Active 2014 Acute otitis externa; Note: Date Diagnosed : 11/12/2014 9:55 PM (380.10) Not Available [facility] 4 02:41:48 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 hearing on the contralat eral side Active 2014 Mixed hearing loss, unilatera l; Note: Date Diagnosed : 11/12/2014 9:56 PM (389.21) Not Available [facility] 4 02:41:46 Infective otitis externa of left ear 50923208745 88735 Active 2014 Other infective otitis externa, left ear; Note: Date Diagnosed : 11/15/2014 4:59 PM (H60.392) Not Available [facility] 4 02:41:47 Impacted cerumen in left ear 76396540182 06318 Active 2014 Impacted cerumen, left ear; Note: Date Diagnosed : 11/15/2014 4:59 PM (H61.22) Not Available [facility] 4 02:41:51 Mixed conductiv e and sensorine ural hearing loss of left ear 59017962120 107 Active 2014 Mixed conductiv e and sensorine ural hearing loss, unilatera l, left ear, with unrestric peggy hearing on the contralat eral side; Note: Date Diagnosed : 11/15/2014 5:00 PM (H90.72) Not Available [facility] 4 02:41:46 Mixed conductiv e and sensorine ural hearing loss of right ear 89444591329 105 Active 2014 Mixed conductiv e and sensorine ural hearing loss, unilatera l, right ear, with unrestric peggy hearing on the contralat eral side; Note: Date Diagnosed : 11/15/2014 5:00 PM (H90.71) Not Available [facility] 4 02:41:49 Sensorine ural hearing loss 64027073 Active 2014 Sensorine ural hearing loss, unilatera l, right ear, with unrestric peggy hearing on the contralat eral side; Note: Date Diagnosed : 5 1:13 PM (H90.41) Not Available [facility] 4 02:41:50 Impacted cerumen of bilateral ears 51489002503 10451 Active 2015 Impacted cerumen, bilateral ; Note: Date Diagnosed : 08/12/2015 12:36 PM (H61.23) Not Available [facility] 4 02:41:46 Itching of skin 474090828 Active 2016 Other pruritus; Note: Date Diagnosed : 04/10/2016 11:46 AM (L29.8) Not Available [facility] 4 02:41:47 Dysphonia 19661260 Active 2016 Dysphonia ; Note: Date Diagnosed : 05/13/2016 10:26 AM (R49.0) Not Available [facility] 4 02:41:43 Chronic pharyngit is 095797 Active 2016 Chronic sore throat; Note: Date Diagnosed : 05/13/2016 10:24 AM (J31.2) Not Available [facility] 4 02:41:44 Dizziness and giddiness 741077768 Active 2016 Dizziness and giddiness ; Note: Date Diagnosed : 08/17/2016 1:43 PM (R42) Not Available [facility] 4 02:41:51 Sensorine ural hearing loss of bilateral ears 687091560 Active 2016 Sensorine ural hearing loss, bilateral ; Note: Date Diagnosed : 7 4:52 PM (H90.3) Sensori neural hearing loss, bilateral ; Note: Date Diagnosed : 08/12/2015 11:37 AM (H90.3) ; Start Date : 6 Not Available [facility] 4 02:41:48 Otorrhea of right ear 50409125926 61429 Active 2020 Otorrhea, right ear; Note: Date Diagnosed : 04/15/2020 9:41 AM (H92.11) Not Available [facility] 4 02:41:49 Benign paroxysma l positiona l vertigo 874880991 Active 2020 Benign paroxysma l vertigo, left ear; Note: Date Diagnosed : 1 9:47 AM (H81.12) Not Available [facility] 4 02:41:53 Problem Notes None recorded. Medical Equipment None Reported. Allergies No known drug allergies Medications Name Sig Start Date Stop Date Status Note LastModified by Organization Details LastModified Time medbox status USE DIRECTED 08/14 completed Not Available Not Available Not Available celecoxib 200 mg capsule TAKE 1 CAPSULE BY MOUTH TWICE DAILY active Not Available Not Available No t Available cyclobenz aprine 10 mg tablet TAKE 1 TABLET BY MOUTH EVERY 8 HOURS active Not Available Not Available No t Available amoxicill in 500 mg capsule TAKE 1 CAPSULE BY MOUTH EVERY 8 HOURS FOR 7 DAYS 03/20 completed Not Available Not Available Not Available hydrocort isone 0.5 % topical cream APPLY TOPICALL Y TO THE AFFECTED AREA(S) TWICE DAILY 08/14 completed Not Available Not Available Not Available Augmentin 875 mg-125 mg tablet 1 tablet by mouth 03/20 completed Medicati on ID: [id number] Du ration Value: 7 Brand Name: Augmenti n Send Method: E-Prescr ibed Sub s Allowed: subs OK Medic ationGen ericName : Augmenti n Not Available Not Available Not Available Qvar 80 mcg/actua tion Metered Aerosol oral inhaler 03/20 completed Medicati on ID: [id number] D uration Value: 30 Brand Name: Qvar Sen d Method: E-Prescr ibed Sub s Allowed: subs OK Medic ationGen ericName : Qvar Not Available Not Available Not Available estazolam 2 mg tablet TAKE 1 TABLET BY MOUTH AT BEDTIME WITH 1MG TABLET active Not Available Not Available No t Available fluticaso ne 250 mcg-salme terol 50 mcg/dose blistr powdr for inhalatio n INHALE 1 PUFF BY MOUTH TWICE DAILY RINSE MOUTH AFTER USING. 08/14 completed Not Available Not Available Not Available acetamino phen 325 mg tablet TAKE 2 TABLETS BY MOUTH EVERY 6 HOURS FOR 7 DAYS 03/20 completed Not Available Not Available Not Available estazolam 1 mg tablet TAKE 1 TABLET BY MOUTH AT BEDTIME WITH 2MG TABLET FOR TDD=3MG active Not Available Not Available No t Available perphenaz ine 2 mg tablet 03/21 completed Medicati on ID: [id number] D uration Value: 30 Reason: () Brand Name: dorene Garcia d Method: E-Prescr ibed Sub s Allowed: subs OK Medic ationGen ericName : perphena nikhil Not Available Not Available Not Available ipratropi um 0.5 mg-albute rol 3 mg (2.5 mg base)/3 mL nebulizat ion soln 03/20 completed Medicati on ID: [id number] D uration Value: 7 Brand Name: ipratrop [...] 1 TABLET BY MOUTH EVERYDAY AT NOON 08/14 completed Not Available Not Available Not Available [...] 2 drop 03/20 completed Medicati on ID: [id number] Du ration Value: 7 Prescri bed By [...] do not lie down for 30 minutes 08/14 completed Not Available Not Available Not Available doxepin 75 mg capsule TAKE 1 CAPSULE BY MOUTH AT BEDTIME active Not Available Not Available No t Available Debrox 6.5 % ear drops 03/20 completed Medicati on ID: [id number] Br and Name: Debrox S end Method: E-Prescr ibed Sub s Allowed: subs OK Medic ationGen ericName : Debrox Not Available Not Available Not Available penicilli n V potassium 500 mg tablet TAKE 1 TABLET BY MOUTH EVERY 6 HOURS FOR 10 DAYS 08/14 completed Not Available Not Available Not Available metronida zole 500 mg tablet TAKE 1 TABLET BY MOUTH TWICE DAILY FOR 7 DAYS. AVOID ALCOHOLI C BEVERAGE S WHILE TAKING. active Not Available Not Available No t Available phentermi ne 37.5 mg tablet TAKE 1 TABLET BY MOUTH EVERY MORNING BEFORE BREAKFAS T 08/14 completed Not Available Not Available Not Available Pred Mild 0.12 % eye drops,rigo pension 3 drop 03/20 completed Medicati on ID: [id number] D uration Value: 10 Brand Name: Pred [...] layed release TAKE 1 TABLET BY MOUTH EVERYDAY AT NOON 08/14 completed Not Available Not Available Not Available acetamino phen 500 mg tablet TAKE 1 TABLET BY MOUTH EVERY 8 HOURS NEEDED FOR MILD OR MODERATE PAIN FOR UP TO 5 DAYS 08/14 completed Not Available Not Available Not Available vancomyci n 125 mg capsule TOME [...] mg tablet 03/21 completed Medicati on ID: [id number] D uration Value: 28 Reason: () Brand Name: oxycodon e-acetam inophen Send Method: E-Prescr ibed Sub s Allowed: subs OK Medic ationGen ericName : oxycodon e-acetam inophen Not Available Not Available Not Available ofloxacin 0.3 % ear drops Apply 5 drop into both ears twice a day 03/20 completed Medicati on ID: [id number] D uration Value: 7 Brand Name: ofloxaci n Send Method: E-Prescr ibed Sub s Allowed: subs OK Medic ationGen ericName : ofloxaci n Not Available Not Available Not Available magnesium oxide 400 mg (241.3 mg magnesium ) tablet TAKE 1 TABLET BY MOUTH EVERYDAY AT NOON WITH FOOD active Not Available Not Available No t Available methocarb maggi 750 mg tablet TAKE 2 TABLETS BY MOUTH FOUR TIMES DAILY NEEDED FOR PAIN 03/20 completed Not Available Not Available Not Available Klonopin 0.5 mg tablet 12/22 completed Medicati on ID: [id number] Re ason: () Brand Name: Klonopin Send Method: E-Prescr ibed Sub s Allowed: subs OK Medic ationGen ericName : Klonopin Not Available Not Available Not Available meclizine 25 mg tablet TAKE 1 TABLET BY MOUTH TWICE DAILY NEEDED active Not Available Not Available No t Available baclofen 10 mg tablet 2018 active Medicati on ID: [id number] D uration Value: 30 Brand Name: baclofen Send Method: E-Prescr ibed Sub s Allowed: subs OK Speci al Instruct ion: TAKE 1 TABLET TWICE DAILY Me dication GenericN galindo: baclofen Not Available Not Available Not Available doxepin 100 mg capsule 09/30 completed Medicati on ID: [id number] Re ason: () Brand Name: doxepin Send Method: E-Prescr ibed Sub s Allowed: subs OK Medic ationGen ericName : doxepin Not Available Not Available Not Available venlafaxi ne 37.5 mg tablet TAKE 1 TABLET BY MOUTH EVERYDAY AT NOON 08/14 completed Not Available Not Available Not Available oseltamiv ir 75 mg capsule TAKE 1 CAPSULE BY MOUTH TWICE DAILY FOR 5 DAYS 03/20 completed Not Available Not Available Not Available levothyro xine 125 mcg tablet 03/21 completed Medicati on ID: [id number] D uration Value: 30 Reason: () Brand [...] for pain 03/21 completed Medicati on ID: [id number] Re ason: () Brand Name: oxycodon e Send Method: E-Prescr ibed Sub s Allowed: subs OK Medic ationGen ericName : oxycodon e Not Available Not Available Not Available clotrimaz ole 1 % topical solution 03/20 completed Medicati on ID: [id number] P rescribe d By Name: Josue johnson [...] DAILY AT NOON AND IN THE EVENING 08/14 completed Not Available Not Available Not Available Advair Diskus 500 mcg-50 mcg/dose powder for inhalatio n INHALE 1 PUFF TWICE DAILY. RINSE MOUTH AFTER USING. (for asthma) active Not Available Not Available No t Available docusate sodium 100 mg capsule TAKE 1 CAPSULE BY MOUTH EVERY DAY active Not Available Not Available No t Available omeprazol e 20 mg capsule,d elayed release 03/20 completed Medicati on ID: [id number] D uration Value: 30 Brand Name: omeprazo le Send Method: E-Prescr ibed Sub s Allowed: subs OK Speci al Instruct ion: TAKE 1 CAPSULE BY MOUTH EVERY DAY 30 MINUTES TO 1 HOUR BEFORE MEALS Me dication GenericN galindo: omeprazo le Not Available Not Available Not Available Cortispor in 3.5 mg/g-10,0 00 unit/g-0. 5 % topical cream 12/22 completed Medicati on ID: [id number] Re ason: () Brand Name: Cortispo rin Send Method: E-Prescr ibed Sub s Allowed: subs OK Medic ationGen ericName : Cortispo rin Not Available Not Available Not Available topiramat e 200 mg tablet 03/20 completed Medicati on ID: [id number] D uration Value: 30 Brand Name: topirama [...] BY MOUTH EVERY DAY 30 MINUTES BEFORE PROCEDUR E NEEDED FOR ANXIETY 08/14 completed Not Available Not Available Not Available ibuprofen 600 mg tablet 03/20 completed Medicati on ID: [id number] D uration Value: 20 Brand Name: ibuprofe [...] BY MOUTH EVERY DAY FOR 7 DAYS 08/14 completed Not Available Not Available Not Available ipratropi um bromide 42 mcg (0.06 %) nasal spray USE 2 SPRAYS IN EACH NOSTRIL TWICE DAILY NEEDED FOR ALLERGIE S OR RHINITIS 03/20 completed Not Available Not Available Not Available celecoxib 100 mg capsule TAKE 1 CAPSULE BY MOUTH TWICE DAILY FOR 2 DAYS 08/14 completed Not Available Not Available Not Available morphine 15 mg immediate release tablet TAKE 1 TABLET BY MOUTH TWICE DAILY NEEDED FOR PAIN 03/20 completed Not Available Not Available Not Available Cortispor in-TC 3.3 mg-3 mg-10 mg-0.5 mg/mL ear drops,rigo pension 4 drop into left ear 03/20 completed Medicati on ID: [id number] D uration Value: 7 Brand Name: Cortispo [...] MOUTH EVERY 6 HOURS NEEDED FOR PAIN 08/14 completed Not Available Not Available Not Available TobraDex 0.3 %-0.1 % eye drops,rigo pension 03/20 completed Medicati on ID: [id number] D uration Value: 14 Brand Name: TobraDex Send Method: E-Prescr ibed Sub s Allowed: subs OK Speci al Instruct ion: Instill 3 drops in the affect ear BID for 10 days Med icationG enericNa me: TobraDex Not Available Not Available Not Available Flovent HFA 220 mcg/actua tion aerosol inhaler 03/20 completed Medicati on ID: [id number] D uration Value: 60 Brand Name: Flovent [...] BEDTIME NEEDED FOR UP TO 5 DAYS 08/14 completed Not Available Not Available Not Available DermOtic Oil 0.01 % ear drops Instill 5 drop twice a day as directed 03/20 completed Medicati on ID: [id number] D uration Value: 7 Brand Name: DermOtic [...] mcg capsule 11/12 completed Medicati on ID: [id number] Re ason: () Brand Name: Tirosint Send [...] Not Available Not Available Not Available Zepbound 10 mg/0.5 mL subcutane ous pen injector INJECT ONE PEN (=10MG) SUBCUTAN EOUSLY ONCE A WEEK DIRECTED 08/14 completed Not Available Not Available Not Available Zepbound 5 mg/0.5 mL subcutane ous pen injector INJECT ONE PEN (=5MG) SUBCUTAN EOUSLY ONCE A WEEK DIRECTED 08/14 completed Not Available Not Available Not Available Zepbound 12.5 mg/0.5 mL subcutane ous pen injector INJECT ONE PEN (=12.5MG ) SUBCUTAN EOUSLY ONCE A WEEK DIRECTED active Not Available Not Available No t Available Zepbound 7.5 mg/0.5 mL subcutane ous pen injector INJECT ONE PEN (=7.5MG) SUBCUTAN EOUSLY ONCE A WEEK DIRECTED 08/14 completed Not Available Not Available Not Available Vitals Date Recorded Body height Body mass index (BMI) Body weight Provider Name and Address Organization Details Last Updated DateTime 03/20/2024 160.02 cm 30.8 kg/m2 39541.07 g Natacha Childs MA [facility] 03/20/2024 13:01:51 Date Recorded Body height Body mass index (BMI) Body weight Provider Name and Address Organization Details Last Updated DateTime 08/14/2024 160.02 cm 31.9 kg/m2 62050.63 g Natacha Childs MA [facility] 08/14/2024 12:59:51 Social History None recorded. Functional Status None recorded. Mental Status None recorded. Family History Nothing Reported. Medical History No medical history recorded. Gynecological HistoryNo gynecological history recorded. Obstetrics History GPAL:G 0 P 0 0 0 0 Past Encounters Encounter ID Performer Location Encounter Start Date Encounter Closed Date Diagnosis/Indication Diagnosis SNOMED-CT Code Diagnosis ICD10 Code Diagnosis IMO Codes Diagnosis Note [id number] JOSUE SHEPHERD MD [facility] [address] [address] 03/20/2024 12:52:27 03/20/2024 13:16:19 Impacted cerumen of bilateral ears 4268192324 315148 H61.23 She has very narrow canals and gets debris impacted against the TM bilaterall y. Cerumen removed and tolerated well. [id number] JOSUE SHEPHERD MD [facility] [address] [address] 08/14/2024 12:21:01 08/14/2024 13:07:51 Impacted cerumen of bilateral ears 2023987434 147303 H61.23 She has very narrow canals and [...] Member ID Schrader Member ID Guarantor Name 09/18/2024 1 [facility] - DOS ON OR AFTER 2022 - GROUP HOME OPTIONS AND ONE CARE (MEDICARE REPLACEMENT/AD VANTAGE - PPO) Mag Ayala [id number] Mag Ayala 02/22/2024 1 [place] [facility] Magdoc Ayala [id number] Mag Ware Ayala Notes Date Note Type Note Provider Name and Address Organization Details Recorded Time 03/20/2024 text/html Dizziness now and then, having some ear itching. JOSUE SHEPHERD MD [address] [place] [address], [phone], [facility] - [facility] 03/20/2024 17:18:34 08/14/2024 text/html 63-year-old female presents today for routine ear cleaning. She has chronic pruritus. Spinal stenosisKnee pain JOSUE SHEPHERD MD [address] [place] [address], [phone], [facility] - [facility] 08/15/2024 09:20:47 OBGyn Episode No OBEpisode recorded.
--- OUTSIDE RECORDS SUMMARY | 2024-12-13 14:19 | XMS_ITS | Encounter Summary ---
Author Organization [employer] Address [address] [place] [address] Care Team Providers Care Moderate Needs Teacher Name Role Phone Name, Gregg DIAMOND Primary Care Provider [phone] Reason for Visit * Reason Onset Date Comments Dr. Marixa chatman back from lab?? 08/31/2024 Encounter Details Date Type Department Care Team ([facility] Contact Info) Description 08/31/2024 Telephone [facility] [address] [place] [address] Ayan Calvin, DMD [address] [place] [address] Dr. Marixa chatman back from lab?? Social [...] Sent to both provider and front desk supervisor * Telephone Encounter - Nataliia Jalloh - [...] delivery. Also message sent to front desk supervisor documented in this encounter Plan of Treatment Upcoming Encounters Date Type Department Care Team (Late st Contact Info) Description 12/18/2024 1:30 PM EST Office Visit [facility] [address] [place] [address] Faye Mi 03/06/2025 9:00 AM EST Office Visit [facility] MEDICINE [address] [place] [address] Name, MD Gregg [address] [place] [address] documented as of this encounter Visit Diagnoses Not on filedocumented in this encounter Additional Health Concerns Assessment Noted Time PHQ-9 Depression Total Score: 1 07/18/19 11:20 AM EDT documented as of this encounter Care Teams Moderate Needs Teacher Relationship Specialty Start Date End Date Name, MD Gregg [address] [place] [address] PCP - General Family Medicine 04/16/15 [facility] 05/23/24 documented as of this encounter
--- OUTSIDE RECORDS SUMMARY | 2024-12-13 14:19 | XMS_ITS | Encounter Summary ---
Author Organization [employer] Address [address] [facility] [address] [place] [address] Care Team Providers Care Fur Tanner Name Role Phone Name, Gregg DIAMOND Primary Care Provider [phone] Encounter Details Date Type Department Care Team (Late Contact Info) Description 01/14/2022 Abstract [facility]ULT [facility] [address] [place] [phone] Dental, Provider, DDS Social History Tobacco Use [...] Upcoming Encounters Date Type Department Care Team ([facility] Contact Info) Description 12/18/2024 1:30 PM EST Office Visit [facility] [address] [place] [address] Faye Mi 03/06/2025 9:00 AM EST Office Visit [facility] [address] [place] [phone] Name, MD Gregg [address] [place] [address] documented as of this encounter Procedures Procedure [...] on filedocumented in this encounter Care Teams Fur Tanner Relationship Specialty Start Date End Date Name, MD Gregg [address] [place] [address] PCP - General Family Medicine 04/16/15 [facility] 05/23/24 documented as of this encounter
--- OUTSIDE RECORDS SUMMARY | 2024-12-13 14:19 | XMS_ITS | Encounter Summary ---
Author Organization [employer] Address [address] [place] [address] Care Team Providers Care Sander And Polisher Name Role Phone Name, Gregg DIAMOND Primary Care Provider [phone] Encounter Details Date Type Department Care Team (Late st Contact Info) Description 05/24/2024 Telephone [facility] [address] [place], [place] [phone] Name, MD Gregg [address] [place] [address] Social History Tobacco Use Types Packs/Day Years [...] Description 12/18/2024 1:30 PM EST Office Visit [facility] [address] [place] [address] Faye Mi 03/06/2025 9:00 AM EST Office Visit [facility] [address] [place] [address] NameGregg MD [address] [place] [address] documented as of this encounter Visit Diagnoses Not on filedocumented in this encounter Additional Health Concerns Assessment Noted Time PHQ-9 Depression Total Score: 0 09/01/19 24 10:42 AM EDT documented as of this encounter Care Teams Sander And Polisher Relationship Specialty Start Date End Date NameGregg MD [address] [place] [address] PCP - General Family Medicine 04/16/15 [facility] 05/23/24 documented as of this encounter
--- OUTSIDE RECORDS SUMMARY | 2024-12-13 14:19 | XMS_ITS | Encounter Summary ---
Author Organization [email or web address] Address [address] [place] [address] Care Team Providers Care Crayon Grader Name Role Phone Name, Gregg DIAMOND Primary Care Provider [phone] Reason for Visit * Reason Onset Date Comments Durable Medical Equipment 12/08/2024 Encounter Details Date Type Department Care Team ([facility] st Contact Info) Description 12/08/2024 Telephone [facility] [address] [place] [address] Name, MD Gregg [address] [place] [address] Durable Medical Equipment Social History Tobacco Use [...] * Telephone Encounter - Gregg Orta - 12/08/2024 9:33 AM EDT Tc from pt reporting that the shower chair has broke and [facility] need [facility]. Any questions contact pt at [phone] documented in this encounter Plan of Treatment Upcoming Encounters Date Type Department Care Team (Late st Contact Info) Description 12/18/2024 1:30 PM EST Office Visit [facility] [address] [place] [address] Faye Mi 03/06/2025 9:00 AM EST Office Visit [facility] [address] [place] [address] Name, MD Gregg [address] [place] [address] documented as of this encounter Visit Diagnoses Not on filedocumented in this encounter Additional Health Concerns Assessment Noted Time PHQ-9 Depression Total Score: 1 07/18/19 25 11:20 AM EDT documented as of this encounter Care Teams Crayon Grader Relationship Specialty Start Date End Date Name, MD Gregg [address] [place] [address] PCP - General Family Medicine 04/16/15 [facility] 05/23/24 documented as of this encounter
--- OUTSIDE RECORDS SUMMARY | 2024-12-13 14:19 | XMS_ITS | Encounter Summary ---
Author Organization [employer] Address [address] 7[address] [place] [address] Care Team Providers Care Bundler Seasonal Greenery Name Role Phone Name, Gregg DIAMOND Primary Care Provider [phone] Reason for Visit * Reason Onset Date Comments Nurse Triage 05/04/2024 Encounter Details Date Type Department Care Team ([facility] st Contact Info) Description 05/04/2024 Telephone [facility] [address] [place] [address] Name, MD Gregg [address] [place] [address] Nurse Triage Social History Tobacco Use Types [...] information. Do see mention of hemorrhoids. No director utilization management needed as this web content writer speaks Danish. Call returned to Mag Ayala to triage [...] to perform UA. Pt requesting referral to [employer] per recommendation from Party Plan Sales Unit Sales Leader. Pt advised will forward note to Provider [...] Pain or Irritation * Telephone Encounter - aMrla Magallon - 05/04/2024 12:44 PM EDT Symptom: Rectal Symptoms - Not Bleeding Outcome: Schedule an appointment to be seen within 3 days Reason: Caller denied all higher acuity questions The caller accepted this outcome. [phone] (czech) pt states knows Maori but there are some words she can't say or understand. Tc from pt stating visited the ferry terminal agent today, and he told pt should ask her PCP for a referral for a prosthetic because pt has several purple veins in the anus. Pt states this hasn't happenedto her before. documented in this encounter Plan of Treatment Upcoming Encounters Date Type Department Care Team (Late st Contact Info) Description 12/18/2024 1:30 PM EST Office Visit [facility] [address] [place] [address] Faye Mi 03/06/2025 9:00 AM EST Office Visit [facility] [address] [place] [address] Name, MD Gregg [address] [place] [address] documented as of this encounter Visit Diagnoses Not on filedocumented in this encounter Additional Health Concerns Assessment Noted Time PHQ-9 Depression Total Score: 0 09/01/19 24 10:42 AM EDT documented as of this encounter Care Teams Bundler Seasonal Greenery Relationship Specialty Start Date End Date Name, MD Gregg [address] [place] [address] PCP - General Family Medicine 04/16/15 [facility] 05/23/24 documented as of this encounter
--- OUTSIDE RECORDS SUMMARY | 2024-12-13 14:19 | XMS_ITS | Encounter Summary ---
Author Organization [employer] Address [address] 7[address] [place] [address] Care Team Providers Care Cp Bleacher Operator Name Role Phone Name, Gregg DIAMOND Primary Care Provider [phone] Encounter Details Date Type Department Care Team ([facility] st Contact Info) Description 12/08/2024 Telephone [facility] [address] [place], [place] [phone] Name, MD Gregg [address] [place] [address] Social History Tobacco Use Types Packs/Day Years [...] * Telephone Encounter - Valentina Beltran - 12/08/2024 11:19 AM EDT Received PA request for Wegovy 1.7mg/.075mL however med list shows Wegovy dc'd 03/08/24 and chart note state pt currently on Zepbound 15mg. Please confirm if PA req should be disregarded. Thank you Reference [facility] Pineda: [id number] documented in this encounter Plan of Treatment Upcoming Encounters Date Type Department Care Team (Late st Contact Info) Description 12/18/2024 1:30 PM EST Office Visit [facility] ADULT DENTAL [address] [place] [address] Faye Mi 03/06/2025 9:00 AM EST Office Visit [facility] [address] [place] [address] Name, MD Gregg [address] [place] [address] documented as of this encounter Visit Diagnoses Not on filedocumented in this encounter Additional Health Concerns Assessment Noted Time PHQ-9 Depression Total Score: 1 07/18/19 11:20 AM EDT documented as of this encounter Care Teams Cp Bleacher Operator Relationship Specialty Start Date End Date Name, MD Gregg [address] [place] [address] PCP - General Family Medicine 04/16/15 [facility] 05/23/24 documented as of this encounter
--- OUTSIDE RECORDS SUMMARY | 2024-12-13 14:19 | XMS_ITS | Encounter Summary ---
Author Organization [employer] Address [address] [facility] 7t [place] [address] Care Team Providers Care Fuel Cell Binder Name Role Phone Name, Gregg DIAMOND Primary Care Provider [phone] Reason for Visit * Reason Comments Med Refill Encounter Details Date Type Department Care Team ([facility] st Contact Info) Description 03/04/2022 Refill [facility] MED[facility]INE [address] [place] [address] Name, MD Gregg [address] [place] [address] Osteoporosis, unspecified osteoporosis type, unspecified pathological fracture [...] Description 12/18/2024 1:30 PM EST Office Visit [facility] ADULT DENTAL [address] [place] [address] Mi Faye 03/06/2025 9:00 AM EST Office Visit [facility] MEDICINE [address] [place] [address] Name, [place] [address] documented as of this encounter Visit Diagnoses Diagnosis Osteoporosis, unspecified osteoporosis type, unspecified pathological fracture presence documented in this encounter Additional Health Concerns Assessment Noted Time PHQ-9 Depression Total Score: 7 03/04/19 9:17 AM EST documented as of this encounter Care Teams Fuel Cell Binder Relationship Specialty Start Date End Date Name, [place] [address] PCP - General Family Medicine 04/16/15 [facility] 05/23/24 documented as of this encounter
--- OUTSIDE RECORDS SUMMARY | 2024-12-13 14:19 | XMS_ITS | Encounter Summary ---
Author Organization [employer] Address [address] [place] [address] Care Team Providers Care Wood Heel Cementer Name Role Phone Name, Gregg DIAMOND Primary Care Provider [phone] Reason for Visit * Reason Onset Date Comments Appointment Request 04/18/2024 Encounter Details Date Type Department Care Team ([facility] Contact Info) Description 04/18/2024 Telephone [facility] MEDICINE [address] [place] [address] Name, MD Gregg [address] [place] [address] Appointment Request Social History Tobacco Use Types [...] PCP. Pt states will be out of [place] from June 18- as she has an appointment with the oncologist on the and with the neurosurgeon on June 27. documented in this encounter Plan of Treatment Upcoming Encounters Date Type Department Care Team (Late st Contact Info) Description 12/18/2024 1:30 PM EST Office Visit [facility] ADULT DENTAL [address] [place] [address] Faye Mi 03/06/2025 9:00 AM EST Office Visit [facility] MED[facility]INE [address] [place] [address] Name, MD Gregg [address] [place] [address] documented as of this encounter Visit Diagnoses Not on filedocumented in this encounter Additional Health Concerns Assessment Noted Time PHQ-9 Depression Total Score: 0 09/01/19 24 10:42 AM EDT documented as of this encounter Care Teams Wood Heel Cementer Relationship Specialty Start Date End Date Name, MD Gregg [address] [place] [address] PCP - General Family Medicine 04/16/15 [facility] 05/23/24 documented as of this encounter
--- OUTSIDE RECORDS SUMMARY | 2024-12-13 14:20 | XMS_ITS | Encounter Summary ---
Author Organization [employer] Address [address] [place] [address] 7t [place] [address] Care Team Providers Care Highway Research Engineer Name Role Phone Name, Gregg DIAMOND Primary Care Provider [phone] Reason for Visit * Reason Comments Med Refill Encounter Details Date Type Department Care Team ( st Contact Info) Description 10/06/2022 Refill [facility] [address] [place] [address] Name, MD Gregg [address] [place] [address] Osteoporosis, unspecified osteoporosis type, unspecified pathological fracture [...] Description 12/18/2024 1:30 PM EST Office Visit [facility] ADULT DENTAL [address] [place] [address] [phone] Faye Mi 03/06/2025 9:00 AM EST Office Visit [facility] [address] [place] [address] [phone] Name, MD Gregg [address] [place] [address] documented as of this encounter Visit Diagnoses Diagnosis Osteoporosis, unspecified osteoporosis type, unspecified pathological fracture presence documented in this encounter Additional Health Concerns Assessment Noted Time PHQ-9 Depression Total Score: 7 03/04/19 23 9:17 AM EST documented as of this encounter Care Teams Highway Research Engineer Relationship Specialty Start Date End Date Name, [place] [address] PCP - General Family Medicine 04/16/15 [facility] 05/23/24 documented as of this encounter
--- OUTSIDE RECORDS SUMMARY | 2024-12-13 14:20 | XMS_ITS | Clinical Summary ---
Author Organization [facility] Address [address] [place] [address] [place] [address] Phone Care Team Providers Care Recenterer Name Role Phone Name, Gregg DIAMOND Primary Care Provider [phone] Allergies Active Allergy Reactions Criticality Noted Date [...] directed by MD Active lorcaserin 20 mg [id number]:St atus post bariatric surgery Take 20 mg [...] 02/20/19 Active calcium carb/D3/magnesium/ zinc (CALCIUM CARB-D3-MAG [id number]) [id number] so-dyjg-ou-mg Tab Take 1 tablet by mouth. Active [...] total) by mouth every morning. 90 tablet 12/02/19 25 Active levothyroxine (SYNTHROID) 100 MCG tabletIndications: Acquired hypothyroidism Take 1 tablet (100 mcg total) by mouth every morning. 90 tablet 3 11/05/19 24 025 Discontin ued(Reord er) Active Problems Problem Noted Date Diagnosed Date [...] I will evaluate for congenital adrenal hyperplasia, Deming syndrome, polycystic ovarian syndrome although that seems [...] or more in. Also I discussed the my fitness pal kamla so that she can [...] lab work not available contacted [facility] for results. Will renew medications at the [...] reference range. She does have follow-up with handbag parts cutter and hopefully this will yield some information. I would not make any changes to the dose of levothyroxine. Encounters Date Type Department Care Team Description 12/01/2024 Refill [facility] [address] [place] [address] Sandra Flores [place] 10/12/2024 Telephone [facility] [address] [place] [address] Dionicio Chakraborty, thyroid check (thyroid check) from Last 3 [...] Telemedicine - audio only [facility] [address] [place] [address] Dionicio Chakraborty DO [address] [place] [phone] [email or web address] Health Maintenance Due Date Last Done Comments DEPRESSION SCREENING 1970 HEPATITIS C SCREENING 1976 SCREENING FOR DIABETES 1993 COLOGUARD 11/27/2003 COLONOSCOPY 11/27/2003 COLORECTAL CANCER SCREENING 11/27/2003 FIT TEST 11/27/2003 FOBT 11/27/2003 SIGMOIDOSCOPY 11/27/2003 VIRTUAL COLONOSCOPY 11/27/2003 ZOSTER VACCINES (1 of 2) 2008 PNEUMOCOCCAL VACCINES (50+ years) (2 of 2 - PCV) 12/13/2012 12/14/2011 MAMMOGRAM 04/09/2024 04/09/2022, 03/19, 02/28/2019, Additional history exists INFLUENZA VACCINE (#1) 2024 11/17/2019, 2018 COVID-19 VACCINE (1 - season) 2024 TSH LEVEL 11/14/2024 11/15/2023, 08/3 [...] DO LAB BLOOD ORDERABLES Final Resul t [facility] [address] [place] [address] from Last 3 Months or Most Recently Relevant to Health Maintenance Insurance [facility] & [facility] MEDICARE PART A & B [facility] MEDICARE REPLACEMENT MEDICARE PART A & B [facility] MEDICARE REPLACEMENT MEDICARE PART A & B [facility] MEDICARE REPLACEMENT MEDICARE PART A & B [facility] MEDICARE REPLACEMENT [facility] [facility] [address] [place] [address] MEDICARE PART A & B [facility] MEDICARE REPLACEMENT Care Teams Recenterer Relationship Specialty Start Date End Date Name, MD Gregg [address] [place] [address] PCP - General Geriatric Psychiatry 03/15/18 Additional Source Comments The information contained in this document represents components of the legal health record. It is not the complete legal health record.[facility]
--- OUTSIDE RECORDS SUMMARY | 2024-12-13 14:20 | XMS_ITS | Encounter Summary ---
Author Organization [employer] Address [address] [facility] 7t [place] [address] Care Team Providers Care Recoater Name Role Phone Name, Gregg DIAMOND Primary Care Provider [phone] Encounter Details Date Type Department Care Team (Late st Contact Info) Description 07/20/2022 Abstract [facility] [address] [place] [phone] NameGregg MD [address] [place] [phone] Social History Tobacco Use Types Packs/Day Years [...] Description 12/18/2024 1:30 PM EST Office Visit [facility] ADULT [facility] [address] [place] [address] [phone] Faye Mi 03/06/2025 9:00 AM EST Office Visit [facility] [address] [place] [address] [phone] Gregg Gandhi MD [address] [place] [address] [phone] documented as of this encounter Procedures Procedure [...] documented as of this encounter Care Teams Recoater Relationship Specialty Start Date End Date Name, MD Gregg [address] [place] [address] PCP - General Family Medicine 04/16/15 [facility] 05/23/24 documented as of this encounter
--- OUTSIDE RECORDS SUMMARY | 2024-12-13 14:20 | XMS_ITS | Encounter Summary ---
Author Organization [employer] Address [address] [place] [address] 7t [place] [address] Care Team Providers Care Bowling Ball Assembler Name Role Phone Name, Gregg DIAMOND Primary Care Provider [phone] Reason for Visit * Reason Comments Med Refill Encounter Details Date Type Department Care Team ( st Contact Info) Description 10/14/2022 Refill [facility] MEDICINE [address] [place] [address] Name, MD Gregg [address] [place] [address] Osteoporosis, unspecified osteoporosis type, unspecified pathological fracture [...] Description 12/18/2024 1:30 PM EST Office Visit [facility] ADULT DENTAL [address] [place] [address] [phone] Faye Mi 03/06/2025 9:00 AM EST Office Visit [facility] MEDICINE [address] [place] [address] [phone] Name, MD Gregg [address] [place] [address] documented as of this encounter Visit Diagnoses Diagnosis Osteoporosis, unspecified osteoporosis type, unspecified pathological fracture presence documented in this encounter Additional Health Concerns Assessment Noted Time PHQ-9 Depression Total Score: 7 03/04/19 23 9:17 AM EST documented as of this encounter Care Teams Bowling Ball Assembler Relationship Specialty Start Date End Date Name, [place] [address] PCP - General Family Medicine 04/16/15 [facility] 05/23/24 documented as of this encounter
== END 2024-12-13 12:14 | disposition home or self-care (01) ==
LOC: HO.HOS 11:16
PROVIDERS: PCP Nurse Practitioner Family; Visit Provider Physician Assistant
DX: S49.92XA Unspecified injury of left shoulder and upper arm, initial encounter (principal)
CPT/HCPCS: 99213; G2211

== ENCOUNTER → 2024-12-13 11:17 | Outpatient (BNV) | payer OTHER, SELFPAY | PROVIDERS: Visit Provider Radiology Diagnostic Radiology | DX: M19.012 Primary osteoarthritis, left shoulder (principal) | CPT/HCPCS: 73030 ==

== ENCOUNTER 2024-12-19 06:18 | Outpatient (REF) | payer OTHER, SELFPAY ==
--- OUTSIDE RECORDS SUMMARY | 2024-12-14 22:59 | XMS_ITS | Continuity of Care Document ---
Author Organization [facility] Address [address] [place] [address] [address] [place] [address]- Care Team Providers Care Thread Grinder Tool Name Role Phone Name Gregg DIAMOND Primary Care Physician [phone] [id number] Date(s): 12/07/24 - 12/14/[address] [place], [place] [address] Attending Physician: Melanie Molina RD Encounter Type: Office Visit Allergies, Adverse Reactions, Alerts Substance Criticality Severity Reaction Reaction Severity Status Nubain Unable to assess criticality Persistent Severe difficulty breathing Active Medications Albuterol 2 puffs, Inhalation, 4 times a day, PRN Wheezing/Shortness of Breath, 0 Refills, Maintenance, 01/29/12 11:06:02 AM EST Start Date: 01/29/12 Status: Ordered Medication Dispense Status: Completed Total Allowed Fills: 1 Fills Dispensed: 0 Aspirin Enteric Coated 81 mg oral delayed release tablet See Instructions, TAKE 1 TABLET BY MOUTH EVERYDAY AT NOON, # 90 tablet, 5 Refills, Maintenance, 09/21/24 6:44:00 PM EDT, [facility], 160, cm, 04/14/23 13:21:00 EST, Height Start Date: 09/21/24 Status: Ordered Medication Dispense Status: Completed Quantity: 90.0 Unit: tablet Total Allowed Fills: 1 Fills Dispensed: 0 cyclobenzaprine 10 mg oral tablet 10 mg, 1, tablet, By Mouth, 3 times a day, Refills 0, Maintenance, 06/13/18 10:11:57 AM EDT Start Date: 06/13/18 Status: Ordered Medication Dispense Status: Completed Total Allowed Fills: 1 Fills Dispensed: 0 Doxepin = 100 mg, By Mouth, Daily at bedtime, 0 Refills, Maintenance, 01/29/12 11:07:28 AM EST Start Date: 01/29/12 Status: Ordered Medication Dispense Status: Completed Total Allowed Fills: 1 Fills Dispensed: 0 Estazolam = 3 mg, By Mouth, Daily at bedtime, Dr. Perkins, psychiatrist at [facility], per pt, 0 Refills, Maintenance, 01/29/12 11:05:43 AM EST Start Date: 01/29/12 Status: Ordered Medication Dispense Status: Completed Total Allowed Fills: 1 Fills Dispensed: 0 gabapentin 100 mg oral capsule 1, capsule, By Mouth, 3 times a day, # 90 capsule, Refills 5, Maintenance, 10/27/24 2:25:00 PM EDT, Route to Pharmacy Electronically, [facility], 160, cm, 04/14/23 13:21:00 EST, Height Start Date: 10/27/24 Status: Ordered Medication Dispense Status: Completed Quantity: 90.0 Unit: capsule Total Allowed Fills: 1 Fills Dispensed: 0 Levothyroxine = 125 mcg, By Mouth, Daily, 0 Refills, Maintenance, 01/29/12 11:05:53 AM EST Start Date: 01/29/12 Status: Ordered Medication Dispense Status: Completed Total Allowed Fills: 1 Fills Dispensed: 0 levothyroxine 0.1 mg oral tablet 1 tablet = 100 mcg, By Mouth, Daily, # 90 tablet, 3 Refills, Maintenance, 12/29/16 1:07:24 PM EST, Tablet, [facility] Start Date: 12/29/16 Stop Date: 12/24/17 Status: Ordered Medication Dispense Status: Completed Quantity: 90.0 Unit: tablet Total Allowed Fills: 4 Fills Dispensed: 0 Multivitamin 1 tablet, By Mouth, Daily, Maintenance, 02/28/15 10:31:20 AM EST Start Date: 02/28/15 Status: Ordered Medication Dispense Status: Completed Total Allowed Fills: 1 Fills Dispensed: 0 Qvar 80 mcg/inh inhalation aerosol 2 puffs, Inhalation, 2 times a day, Maintenance, 03/01/15 10:06:05 AM EST Start Date: 03/01/15 Status: Ordered Medication Dispense Status: Completed Total Allowed Fills: 1 Fills Dispensed: 0 Readi-Cat 2 oral suspension See Instructions, Dispense 2 bottles (450ml each bottle). Drink first bottle [address] Drink second bottle [address] # 2 each, 0 Refills, Maintenance, 05/21/22 3:20:00 PM EDT, [facility], Partial fill upon patient request if the prescription is for a schedule II opioid drug., Dispense 2 bottles (450ml each bottle). Drink first bottle [address] scan. Drink second bottle [address] 160, cm, 05/21/22 8:39:00 EDT, Height Start Date: 05/21/22 Status: Ordered Medication Dispense Status: Completed Quantity: 2.0 Unit: each Total Allowed Fills: 1 Fills Dispensed: 0 Trilafon Tablet 4 mg, By Mouth, Daily, Maintenance, 02/20/15 12:57:52 PM EST Start Date: 02/20/15 Status: Ordered Medication Dispense Status: Completed Total Allowed Fills: 1 Fills Dispensed: 0 venlafaxine 37.5 mg oral tablet See Instructions, TAKE 1 TABLET BY MOUTH EVERYDAY AT NOON, # 90 tablet, 1 Refills, Maintenance, 11/03/24 12:21:00 PM EDT, [facility], 160, cm, 04/14/23 13:21:00 EST, Height Start Date: 11/03/24 Status: Ordered Medication Dispense Status: Completed Quantity: 90.0 Unit: tablet Total Allowed Fills: 1 Fills Dispensed: 0 Problem List Condition Confirmation Course Effective Dates Status H ealth Status Informant Anxiety and depression Confirmed Active Asthma Confirmed Active Hx of pheochromocytoma Confirmed Active Hypertension, no meds Confirmed Active Hypothyroidism Confirmed Active Impaired Fasting Glucose Confirmed Active Morbid Obesity Confirmed Active Obese class I Confirmed Active Obstructive sleep apnea (adult or pediatric), pt states eval at [facility] and uses CPAP Confirmed Active Social History Social History Type Response Smoking Status Never smoker; Tobacc o user in household: No entered on: 11/03/13 Sex Sex Representation Female (finding) Patient Care team information Care Team Personnel Name: Salome Ayon RN Position: [facility] RN Member Role: Primary Care Nurse Name: Denia Peralta RN Position: [facility] SN RN Member Role: Primary Care Nurse Name: Sachi Carlos RN Position: [facility] AMB Nurse Member Role: Primary Care Nurse Name: Gregg Gandhi MD Position: [facility] Outreach Member Role: PCP Address: [address] [place] [address] Telecom: Care Team Related Persons Name: ARUNA COOMBS Name: MARGOT DEVLIN Name: GERARDO JULIAN CABIN AGENT Name: HORTENSIA ZABALA Insurance Providers Guarantor name: [facility] [place] group Plan Information #: 1 Payer: [facility] [employer] Payer Identifier: ANGE Member Number: [id number] Group Number: [id number] Subscriber Identifier: [id number] Relationship to Subscriber: self Coverage Type: Medicare Managed Care (Includes Medicare Advantage Plans) Coverage Verification Date: ANGE Telecom: ANGE Address:
--- OUTSIDE RECORDS SUMMARY | 2024-12-18 13:30 | XMS_ITS | Encounter Summary ---
Author Organization [employer] Address [address] [facility] [address] 7[address] [place] [address] Care Team Providers Care Cashier Credit Name Role Phone Name, Gregg DIAMOND Primary Care Provider [phone] Reason for Visit * Reason Comments Routine Cleaning Encounter Details Date Type Department Care Team ([facility] st Contact Info) Description 12/18/2024 1:30 PM EST Office Visit [facility] ADULT DENTAL [address] [place] [address] Faye Mi Dental calculus (Primary Dx); Dental [...] Timeout Time: 1339 (Dental Prophy Adult) Location: [facility] Tooth: Maxilla and Mandible Procedure: X-rays and Prophylaxis Verified the above with patient, accounts receivable assistant, and provider. Confirmed via patient's chart, intraorally and by radiographs. Electric Blanket Wirer: not applicable Medical Hx: Vitals: Blood pressure [...] Faye Mi Billing provider: Ayan Calvin DMD [id number] - BITEWINGS - 2 RADIOGRAPHIC IMAGES (Completed) [...] patient including brushing technique and flossing. Recommendations: [place] two times daily, modified grigsby technique, Floss daily, Electric toothbrush, Soft bristle toothbrush, [place] Tongue, Anti-sensitivity toothpaste Recall Frequency: 6 mo NV: 6mrc Hygienist: Faye Mi RDH documented in this encounter Plan of Treatment Upcoming Encounters Date Type Department Care Team (Late st Contact Info) Description 01/02/2025 8:30 AM EST Office Visit [facility] ADULT DENTAL [address] [place] [address] Heath Dougherty DDS [address] [place] [address] 03/06/2025 9:00 AM EST Office Visit [facility] MEDICINE [address] [place] [address] Name, MD Gregg [address] [place] [address] 07/02/2025 10:15 AM EDT Office Visit [facility] ADULT DENTAL [address] [place] [address] Faye Mi documented as of this encounter [...] documented as of this encounter Care Teams Cashier Credit Relationship Specialty Start Date End Date Name, MD Gregg [address] [facility] [place] [address] PCP - General Family Medicine 04/16/15 [facility] 05/23/24 documented as of this encounter
--- NOTE | ~2024-12-19 | FL_ITS ---
EXAMINATION: XR FLUOROSCOPY WITH IMAGES CLINICAL INFORMATION: Sacroiliitis COMPARISON: None available. TECHNIQUE: Fluoroscopy time: 2 seconds DAP: 6.8 mgy Images: 2 FINDINGS: Fluoroscopy provided for the procedure. There is a needle projected in the region of the right SI joint with contrast in this region., FL/FL guidance in treatment room IMPRESSION: Fluoroscopy provided for the procedure. See procedure report for details.. Electronically signed by: Rojas Marx MD 12/20/2024 03:02 PM [facility]
--- OUTSIDE RECORDS SUMMARY | 2024-12-19 06:26 | XMS_ITS | Encounter Summary ---
Author Organization [employer] Address [address] [facility] [address] 7t [place] [address] Care Team Providers Care Turret Punch Operator Name Role Phone Name, Gregg DIAMOND Primary Care Provider [phone] Reason for Visit * Reason Comments Med Refill Encounter Details Date Type Department Care Team ([facility] st Contact Info) Description 07/13/2023 Refill [facility] MEDICINE [address] [place] [address] Ban Granados FNP [address] [place] [address] Social History Tobacco Use Types Packs/Day Years [...] the past 12 months, has t he [employer], BoostUp, oil or water Identify threatened to shut off services in your [...] PM EDT Pt came into the [facility] asking for refills on Wegomy meds. She wants Dr. Granados to send the refill in two days to be able to burr picker in pharmacy. 07/13/23 documented in this encounter Plan of Treatment Upcoming Encounters Date Type Department Care Team (Late st Contact Info) Description 01/02/2025 8:30 AM EST Office Visit [facility] ADULT DENTAL [address] [place] [address] Heath Dougherty DDS [address] [place] [address] 03/06/2025 9:00 AM EST Office Visit [facility] MEDICINE [address] [place] [address] Name, MD Gregg 230 [place] [address] 07/02/2025 10:15 AM EDT Office Visit [facility] ADULT DENTAL [address] [place] [address] Faye Mi documented as of this encounter Visit Diagnoses Not on filedocumented in this encounter Additional Health Concerns Assessment Noted Time PHQ-9 Depression Total Score: 7 03/04/19 23 9:17 AM EST documented as of this encounter Care Teams Turret Punch Operator Relationship Specialty Start Date End Date Gregg Gandhi MD [address] [place] [address] PCP - General Family Medicine 04/16/15 [facility] 05/23/24 documented as of this encounter
--- OUTSIDE RECORDS SUMMARY | 2024-12-19 06:26 | XMS_ITS | Encounter Summary ---
Author Organization [id number] Address [address] [facility] [address] 7t [place] [address] Care Team Providers Care Fabricator Industrial Furnace Name Role Phone Name, Gregg DIAMOND Primary Care Provider [phone] Encounter Details Date Type Department Care Team (Late st Contact Info) Description 07/26/2024 Orders Only [facility] MEDICINE 230 [place], [place] [id number] Joann Angel NP 230 [place] [address] Obesity (BMI 30-39.9) (Primary Dx) Social History [...] Description 01/02/2025 8:30 AM EST Office Visit [facility] ADULT DENTAL [address] [place] [address] Heath Dougherty DDS 230 [place] [address] 03/06/2025 9:00 AM EST Office Visit [facility] MED[facility]INE [address] [place] [address] Gregg Gandhi MD [address] [place] [address] 07/02/2025 10:15 AM EDT Office Visit [facility] ADULT DENTAL [address] [place] [address] Faye Mi documented as of this encounter Visit Diagnoses Diagnosis Obesity (BMI 30-39.9)- Primary documented in this encounter Additional Health Concerns Assessment Noted Time PHQ-9 Depression Total Score: 1 07/18/19 25 11:20 AM EDT documented as of this encounter Care Teams Fabricator Industrial Furnace Relationship Specialty Start Date End Date Gregg Gandhi MD [address] [place] [address] PCP - General Family Medicine 04/16/15 [facility] 05/23/24 documented as of this encounter
--- OUTSIDE RECORDS SUMMARY | 2024-12-19 06:26 | XMS_ITS | Encounter Summary ---
Author Organization [employer] Address 75 [facility] 7t [place] [address] Care Team Providers Care Compliance Administrator Name Role Phone Name, Gregg DIAMOND Primary Care Provider [phone] Reason for Visit * Reason Onset Date Comments broken tooth to hold partial 02/28/2024 Encounter Details Date Type Department Care Team ([facility] st Contact Info) Description 02/28/2024 Telephone [facility] ADULT DENTAL [address] [place] [address] Ayan Calvin, DMD 230 [place] [address] broken tooth to hold partial Social History [...] Description 01/02/2025 8:30 AM EST Office Visit [facility] ADULT DENTAL [address] [place] [address] Heath Dougherty DDS 230 [place] [address] 03/06/2025 9:00 AM EST Office Visit [facility] MEDICINE [address] [place] [address] Name, MD Gregg [address] [place] [address] 07/02/2025 10:15 AM EDT Office Visit [facility] ADULT DENTAL [address] [place] [address] Faye Mi documented as of this encounter Visit Diagnoses Not on filedocumented in this encounter Additional Health Concerns Assessment Noted Time PHQ-9 Depression Total Score: 0 09/01/19 24 10:42 AM EDT documented as of this encounter Care Teams Compliance Administrator Relationship Specialty Start Date End Date Name, MD Gregg 230 [place] [address] PCP - General Family Medicine 04/16/15 [facility] 05/23/24 documented as of this encounter
--- OUTSIDE RECORDS SUMMARY | 2024-12-19 06:26 | XMS_ITS | Encounter Summary ---
Author Organization [id number] Address [address] [facility] [address] 7t [place] [address] Care Team Providers Care Drying Tumbler Operator Name Role Phone Name, Gregg DIAMOND Primary Care Provider Reason for Visit * Reason Comments Med Refill Encounter Details Date Type Department Care Team ([facility] st Contact Info) Description 02/14/2024 Refill [facility] MEDICINE 230 [place] [address] Name, MD Gregg 230 [place] [address] Social History Tobacco Use Types Packs/Day Years [...] Description 01/02/2025 8:30 AM EST Office Visit [facility] ADULT DENTAL [address] [place] [address] Heath Dougherty DDS [address] [place] [address] 03/06/2025 9:00 AM EST Office Visit [facility] MEDICINE [address] [place] [address] Name, MD Gergg [address] [place] [address] 07/02/2025 10:15 AM EDT Office Visit [facility] ADULT DENTAL [address] [place] [address] Faye Mi documented as of this encounter Visit Diagnoses Not on filedocumented in this encounter Additional Health Concerns Assessment Noted Time PHQ-9 Depression Total Score: 0 09/01/19 24 10:42 AM EDT documented as of this encounter Care Teams Drying Tumbler Operator Relationship Specialty Start Date End Date Name, MD Gregg [address] [place] [address] PCP - General Family Medicine 04/16/15 [facility] 05/23/24 documented as of this encounter
--- OUTSIDE RECORDS SUMMARY | 2024-12-19 06:26 | XMS_ITS | Encounter Summary ---
Author Organization [employer] Address [address] [facility] [address] 7t [place] [address] Care Team Providers Care Powder Coat Painter Name Role Phone Name, Gregg DIAMOND Primary Care Provider [phone] Reason for Visit * Reason Comments Med Refill Encounter Details Date Type Department Care Team ([facility] st Contact Info) Description 11/16/2023 Refill [facility] 230 [place] [address] Yennifer Ramirez MD [address] [place] [address] Flu-like symptoms Social History Tobacco Use Types [...] Description 01/02/2025 8:30 AM EST Office Visit [facility] ADULT DENTAL [address] [place] [address] Heath Dougherty DDS [address] [place] [address] 03/06/2025 9:00 AM EST Office Visit [facility] MEDICINE [address] [place] [address] Name, MD Gregg [address] [place] [address] 07/02/2025 10:15 AM EDT Office Visit [facility] ADULT DENTAL [address] [place] [address] Faye Mi documented as of this encounter Visit Diagnoses Diagnosis Flu-like symptoms documented in this encounter Additional Health Concerns Assessment Noted Time PHQ-9 Depression Total Score: 0 09/01/19 24 10:42 AM EDT documented as of this encounter Care Teams Powder Coat Painter Relationship Specialty Start Date End Date Name, MD Gregg 230 [place] [address] PCP - General Family Medicine 04/16/15 [facility] 05/23/24 documented as of this encounter
--- OUTSIDE RECORDS SUMMARY | 2024-12-19 06:26 | XMS_ITS | Encounter Summary ---
Author Organization [employer] Address [address] [facility] [address] 7t [place] [address] Care Team Providers Care Customer Program Manager Name Role Phone Name, Gregg DIAMOND Primary Care Provider [phone] Reason for Visit * Reason Comments Med Refill Encounter Details Date Type Department Care Team ([facility] st Contact Info) Description 06/07/2024 Refill [facility] MEDICINE 230 [place] [address] Name, MD Gregg [address] [place] [address] Social History Tobacco Use Types Packs/Day Years [...] Description 01/02/2025 8:30 AM EST Office Visit [facility] ADULT DENTAL [address] [place] [address] Heath Dougherty DDS [address] [place] [address] 03/06/2025 9:00 AM EST Office Visit [facility] MEDICINE [address] [place] [address] Name, MD Gregg [address] [place] [address] 07/02/2025 10:15 AM EDT Office Visit [facility] ADULT DENTAL [address] [place] [address] Faye Mi documented as of this encounter Visit Diagnoses Not on filedocumented in this encounter Additional Health Concerns Assessment Noted Time PHQ-9 Depression Total Score: 0 09/01/19 24 10:42 AM EDT documented as of this encounter Care Teams Customer Program Manager Relationship Specialty Start Date End Date Name, MD Gregg [address] [place] [address] PCP - General Family Medicine 04/16/15 [facility] 05/23/24 documented as of this encounter
--- OUTSIDE RECORDS SUMMARY | 2024-12-19 06:26 | XMS_ITS | Encounter Summary ---
Author Organization [employer] Address [address] [facility] [address] 7t [place] [address] Care Team Providers Care Lead Presser Name Role Phone Name, Gregg DIAMOND Primary Care Provider [phone] Reason for Visit * Reason Comments Med Refill Encounter Details Date Type Department Care Team ([facility] st Contact Info) Description 08/03/2023 Refill [facility] MEDICINE 230 [place] [address] Name, MD Gregg 230 [place] [address] Social History Tobacco Use Types Packs/Day Years [...] Description 01/02/2025 8:30 AM EST Office Visit [facility] ADULT DENTAL [address] [place] [address] Heath Dougherty DDS [address] [place] [address] 03/06/2025 9:00 AM EST Office Visit [facility] MEDICINE [address] [place] [address] Name, MD Gregg [address] [place] [address] 07/02/2025 10:15 AM EDT Office Visit [facility] ADULT DENTAL [address] [place] [address] Faye Mi documented as of this encounter Visit Diagnoses Not on filedocumented in this encounter Additional Health Concerns Assessment Noted Time PHQ-9 Depression Total Score: 7 03/04/19 23 9:17 AM EST documented as of this encounter Care Teams Lead Presser Relationship Specialty Start Date End Date NameGregg MD [address] [place] [address] PCP - General Family Medicine 04/16/15 [facility] 05/23/24 documented as of this encounter
--- OUTSIDE RECORDS SUMMARY | 2024-12-19 06:26 | XMS_ITS | Encounter Summary ---
Author Organization [employer] Address [address] [facility] [address] 7t [place] [address] Care Team Providers Care Advertising Executive Name Role Phone Name, Gregg DIAMOND Primary Care Provider [phone] Encounter Details Date Type Department Care Team (Late st Contact Info) Description 10/21/2023 Telephone [facility] ADULT DENTAL [address] [place] [address] Ayan Calvin, DMD [address] [place] [address] Social History Tobacco Use Types Packs/Day Years [...] is your housing situation today? I have lolynavni loredo 09/01/[address] you [...] Description 01/02/2025 8:30 AM EST Office Visit [facility] ADULT DENTAL [address] [place] [address] Heath Dougherty DDS 230 [place] [address] 03/06/2025 9:00 AM EST Office Visit [facility] MEDICINE [address] [place] [address] Name, MD Gregg [address] [place] [address] 07/02/2025 10:15 AM EDT Office Visit [facility] ADULT DENTAL [address] [place] [address] Faye Mi documented as of this encounter Visit Diagnoses Not on filedocumented in this encounter Additional Health Concerns Assessment Noted Time PHQ-9 Depression Total Score: 0 09/01/19 24 10:42 AM EDT documented as of this encounter Care Teams Advertising Executive Relationship Specialty Start Date End Date Name, MD Gregg 230 [place] [address] PCP - General Family Medicine 04/16/15 [facility] 05/23/24 documented as of this encounter
--- OUTSIDE RECORDS SUMMARY | 2024-12-19 06:26 | XMS_ITS | Encounter Summary ---
Author Organization [employer] Address [address] [facility] [address] 7t [place] [address] Care Team Providers Care Ditch Cleaner Name Role Phone Name, Gregg DIAMOND Primary Care Provider [phone] Reason for Visit * Reason Onset Date Comments Request For Order(s) 07/30/2023 Encounter Details Date Type Department Care Team ([facility] st Contact Info) Description 07/30/2023 Telephone [facility] MED[facility]INE 230 [place] [address] Name, MD Gregg 230 [place] [address] Request For Order(s) Social History Tobacco Use [...] Miscellaneous Notes * Telephone Encounter - Justyna Raghu - 07/30/2023 2:04 PM EDT Tc from pt requesting an MRI on the right kidney/hip area. States provider performing surgery on September 01 requesting for pt to get an MRI done. Please clarify Please contact pt at [phone] (No airframe and powerplant mechanic needed) documented in this encounter Plan of Treatment Upcoming Encounters Date Type Department Care Team (Late st Contact Info) Description 01/02/2025 8:30 AM EST Office Visit [facility] ADULT DENTAL [address] [place] [address] Heath Dougherty DDS 230 [place] [address] 03/06/2025 9:00 AM EST Office Visit [facility] MEDICINE [address] [place] [address] Name, MD Gregg [address] [place] [address] 07/02/2025 10:15 AM EDT Office Visit [facility] ADULT DENTAL [address] [place] [address] Faye Mi documented as of this encounter Visit Diagnoses Not on filedocumented in this encounter Additional Health Concerns Assessment Noted Time PHQ-9 Depression Total Score: 7 03/04/19 23 9:17 AM EST documented as of this encounter Care Teams Ditch Cleaner Relationship Specialty Start Date End Date Name, MD Gregg 230 [place] [address] PCP - General Family Medicine 04/16/15 [facility] 05/23/24 documented as of this encounter
--- OUTSIDE RECORDS SUMMARY | 2024-12-19 06:26 | XMS_ITS | Encounter Summary ---
Author Organization [employer] Address [address] [facility] [address] 7t [place] [address] Care Team Providers Care Envelope Sealing Machine Operator Name Role Phone Name, Gregg DIAMOND Primary Care Provider [phone] Reason for Visit * Reason Onset Date Comments Appointment Request 04/18/2024 Encounter Details Date Type Department Care Team ([facility] st Contact Info) Description 04/18/2024 Telephone [facility] MEDICINE 230 [place] [address] Name, MD Gregg 230 [place] [address] Appointment Request Social History Tobacco Use Types [...] PCP. Pt states will be out of [place] from June 18- as she has an appointment with the oncologist on the and with the neurosurgeon on June 27. documented in this encounter Plan of Treatment Upcoming Encounters Date Type Department Care Team (Late st Contact Info) Description 01/02/2025 8:30 AM EST Office Visit [facility] ADULT DENTAL [address] [place] [address] Heath Dougherty DDS [address] [place] [address] 03/06/2025 9:00 AM EST Office Visit [facility] MEDICINE [address] [place] [address] Name, MD Gregg 230 [place] [address] 07/02/2025 10:15 AM EDT Office Visit [facility] ADULT DENTAL 230 [place] [address] Faye Mi documented as of this encounter Visit Diagnoses Not on filedocumented in this encounter Additional Health Concerns Assessment Noted Time PHQ-9 Depression Total Score: 0 09/01/19 24 10:42 AM EDT documented as of this encounter Care Teams Envelope Sealing Machine Operator Relationship Specialty Start Date End Date Name, MD Gregg 230 [place] [address] PCP - General Family Medicine 04/16/15 [facility] 05/23/24 documented as of this encounter
--- OUTSIDE RECORDS SUMMARY | 2024-12-19 06:26 | XMS_ITS | Encounter Summary ---
Author Organization [employer] Address [address] [facility] [address] 7t [place] [address] Care Team Providers Care Scientific Helper Name Role Phone Name, Gregg DIAMOND Primary Care Provider [phone] Reason for Visit * Reason Comments Med Change Request Encounter Details Date Type Department Care Team ([facility] Contact Info) Description 07/26/2024 Refill [facility] 230 [place] [address] Name, MD Gregg [address] [place] [address] Social History Tobacco Use Types Packs/Day Years [...] Description 01/02/2025 8:30 AM EST Office Visit [facility] ADULT DENTAL [address] [place] [address] Heath Dougherty DDS [address] [place] [address] 03/06/2025 9:00 AM EST Office Visit [facility] MED[facility] [address] [place] [address] Name, MD Gregg [address] [place] [address] 07/02/2025 10:15 AM EDT Office Visit [facility] ADULT DENTAL [address] [place] [address] Faye Mi documented as of this encounter Visit Diagnoses Not on filedocumented in this encounter Additional Health Concerns Assessment Noted Time PHQ-9 Depression Total Score: 1 07/18/19 25 11:20 AM EDT documented as of this encounter Care Teams Scientific Helper Relationship Specialty Start Date End Date Name, MD Gregg [address] [place] [address] PCP - General Family Medicine 04/16/15 [facility] 05/23/24 documented as of this encounter
--- OUTSIDE RECORDS SUMMARY | 2024-12-19 06:26 | XMS_ITS | Encounter Summary ---
Author Organization [employer] Address [address] [facility] 7t [place] [address] Care Team Providers Care Invasive Manager Name Role Phone Name, Gregg DIAMOND Primary Care Provider [phone] Reason for Visit * Reason Onset Date Comments ER Follow-up 05/02/2024 Nurse Triage 05/02/2024 Encounter Details Date Type Department Care Team ([facility] st Contact Info) Description 05/02/2024 Telephone [facility] MEDICINE [address] [place] [address] Name, MD Gregg [address] [place] [address] ER Follow-up; Nurse Triage Social History Tobacco [...] of the rollator walker. TC placed to [facility] pharamcyregarding the fosamax. Lori states the [...] in June as she will leaving for [place] at the beginning of June Pt requesting a call from PCP. [employer] found telehealth visit in PCP schedule. Pt [...] find out more information. TC placed to [facility] pharamcy regardingthe fosamax. Lori states the [...] She states that she went to the [facility] [place] [place] yesterday due to right leg pain and right knee isswollen. Pt. Was also having throbbing pain in left side of groin. [facility] [place] [place] [facility] did not find any blood clot in leg and Xray of left hip and pelvis-negative. ED is recommending referral to [facility] according to pt. Pt does not want [...] that she remembers. Pt. Needs referral to [facility] Painter. Offered pt. Appt. Today but, pt. Only wants to speak to pcp and is requesting appt. With PCP only or call from PCP to discuss updates and needs. Please get back to pt. To let her know if any of these needs can be met Will send request to Clinical coordinators to get [facility] [place] [place] [facility] report from yesterday into pt. Chart. Multiple needs. * Telephone Encounter - Shubham Booth - 05/02/2024 10:20 AM EDT Patient calling to report ED visit on : Date: 05/01/2024 Hospital: [facility] [place] [place] Seen for: Knee pain , groin pain [...] Description 01/02/2025 8:30 AM EST Office Visit [facility] ADULT DENTAL [address] [place] [phone] Heath Dougherty DDS [address] [place] [address] 03/06/2025 9:00 AM EST Office Visit [facility] MEDICINE [address] [place] [address] Name, MD Gregg [address] [place] [address] 07/02/2025 10:15 AM EDT Office Visit [facility] ADULT DENTAL [address] [place] [address] Faye Mi documented as of this encounter Visit Diagnoses Not on filedocumented in this encounter Additional Health Concerns Assessment Noted Time PHQ-9 Depression Total Score: 0 09/01/19 24 10:42 AM EDT documented as of this encounter Care Teams Invasive Manager Relationship Specialty Start Date End Date Name, MD Gregg [address] [place] [address] PCP - General Family Medicine 04/16/15 [facility] 05/23/24 documented as of this encounter
--- OUTSIDE RECORDS SUMMARY | 2024-12-19 06:26 | XMS_ITS | Encounter Summary ---
Author Organization [employer] Address [address] [facility] 7t [place] [address] Care Team Providers Care Advertising Intern Name Role Phone Name, Gregg DIAMOND Primary Care Provider [phone] Reason for Visit * Reason Onset Date Comments PT1 07/27/2023 Encounter Details Date Type Department Care Team ([facility] st Contact Info) Description 07/27/2023 Telephone [facility] MEDICINE [address] [place] [address] Name, MD Gregg [address] [place] [address] PT1 Social History Tobacco Use Types Packs/Day [...] name: Dr. Carson Smith MD Facility Address: [address] [place] [address] [address], [facility], [address] Escort needed: Y/N: No Do you have a wheelchair: Y/N: No If yes- Manual or electric: Visits: 2-3 Next upcoming appt 08/03/23 documented in this encounter Plan of Treatment Upcoming Encounters Date Type Department Care Team (Late st Contact Info) Description 01/02/2025 8:30 AM EST Office Visit [facility] ADULT DENTAL [address] [place] [address] Heath Dougherty DDS [address] [place] [address] 03/06/2025 9:00 AM EST Office Visit [facility] MEDICINE [address] [place] [address] Name, MD Gregg [address] [place], [place] [phone] 07/02/2025 10:15 AM EDT Office Visit [facility] ADULT DENTAL [address] [place] [address] Faye Mi documented as of this encounter Visit Diagnoses Not on filedocumented in this encounter Additional Health Concerns Assessment Noted Time PHQ-9 Depression Total Score: 7 03/04/19 23 9:17 AM EST documented as of this encounter Care Teams Advertising Intern Relationship Specialty Start Date End Date Name, MD Gregg [address] [place] [address] PCP - General Family Medicine 04/16/15 [facility] 05/23/24 documented as of this encounter
--- OUTSIDE RECORDS SUMMARY | 2024-12-19 06:26 | XMS_ITS | Encounter Summary ---
Author Organization [employer] Address [address] [facility] [address] 7t [place] [address] Care Team Providers Care System Software Developer Name Role Phone Name, Gregg DIAMOND Primary Care Provider [phone] Reason for Visit * Reason Onset Date Comments clarification of tx 08/09/2023 Encounter Details Date Type Department Care Team ([facility] st Contact Info) Description 08/09/2023 Telephone [facility] ADULT DENTAL [address] [place] [address] Ayan Calvin, DMD [address] [place] [address] clarification of tx Social History Tobacco Use [...] you to call her. She went to [facility] for RCT today but is [...] Description 01/02/2025 8:30 AM EST Office Visit [facility] ADULT DENTAL [address] [place] [address] Heath Dougherty DDS [address] [place] [address] 03/06/2025 9:00 AM EST Office Visit [facility] MEDICINE [address] [place] [address] Name, MD Gregg [address] [place] [address] 07/02/2025 10:15 AM EDT Office Visit [facility] ADULT DENTAL [address] [place] [address] Faye Mi documented as of this encounter Visit Diagnoses Not on filedocumented in this encounter Additional Health Concerns Assessment Noted Time PHQ-9 Depression Total Score: 7 03/04/19 23 9:17 AM EST documented as of this encounter Care Teams System Software Developer Relationship Specialty Start Date End Date Name, MD Gregg [address] [place] [address] PCP - General Family Medicine 04/16/15 [facility] 05/23/24 documented as of this encounter
--- OUTSIDE RECORDS SUMMARY | 2024-12-19 06:26 | XMS_ITS | Encounter Summary ---
Author Organization [employer] Address [address] [facility] [address] 7[address] [place] [address] Care Team Providers Care Nuisance Wildlife Specialist Name Role Phone Name, Gregg DIAMOND Primary Care Provider [phone] Reason for Visit * Reason Onset Date Comments PT1 02/25/2023 Encounter Details Date Type Department Care Team ([facility] st Contact Info) Description 02/25/2023 Telephone [facility] MEDICINE [address] [place] [address] Name, MD Gregg [address] [place] [address] PT1 Social History Tobacco Use Types Packs/Day [...] - valid through 06/2023 [facility] neurology - [id number] authorized Dr Chakraborty - [id number] pending [facility]urg - [id number] authorized [facility] - [id number] authorized Renal & Trans - [id number] authorized ENT - [id number] pending [facility] medical office - [id number] pending * Telephone Encounter - Cameron Su - 02/25/2023 4:29 PM EST PT1 needed Date: N/A Time: N/A Visits: 2 or 3 monthly Address: [address] [facility] Facility: [facility] Cardiovascular Wheel Chair: No Control Panel Tester Needed: No PT1 needed Date: N/A Time: N/A Visits: 2 or 3 Monthly Address: [address] [facility] Facility: [facility] Neurology Wheel No Control Panel Tester Needed: No PT1 needed Date: N/A Time: N/A Visits: 2 or 3 Monthly Address: [address] [facility] Facility: Dr Chakraborty Wheel Chair: No Control Panel Tester Needed: No PT1 needed Date: N/A Time: N/A Visits: 2 or 3 Monthly Address: [address] [place] [address] dr LambertRafy [place] Facility: [facility] General Surgery Wheel Chair: No Control Panel Tester Needed: No PT1 needed Date: N/A Time: N/A Visits: 2 or 3 Monthly Address: [address] [place] [address] Facility: [facility] Wheel Chair: No Control Panel Tester Needed: No PT1 needed Date: N/A Time: N/A Visits: 2 or 3 monthly Address: [address] [facility] Facility: [facility] Wheel Chair: No Control Panel Tester Needed: No PT1 needed Date: N/A Time: N/A Visits: 2 or 3 monthly Address: [address] [facility] Facility: [facility] Wheel Chair: No Control Panel Tester Needed: No PT1 needed Date: N/A Time: N/A Visits: 2 or 3 Monthly Address: [address] [facility] [address] Cesia DESOUZA Facility: [facility] medical Office Wheel Chair: No Control Panel Tester Needed: No PT1 needed Date: N/A Time: N/A Visits: 2 or 3 Monthly Address: [address] [place] [address] Facility: [facility] Wheel Chair: No Control Panel Tester Needed: No documented in this encounter Plan of Treatment Upcoming Encounters Date Type Department Care Team (Late st Contact Info) Description 01/02/2025 8:30 AM EST Office Visit [facility] ADULT DENTAL [address] [place] [address] Heath Dougherty DDS [address] [place] [address] 03/06/2025 9:00 AM EST Office Visit [facility] MEDICINE [address] [place] [address] Name, MD Gregg [address] [place] [address] 07/02/2025 10:15 AM EDT Office Visit [facility] ADULT DENTAL [address] [place] [address] Faye Mi documented as of this encounter Visit Diagnoses Not on filedocumented in this encounter Additional Health Concerns Assessment Noted Time PHQ-9 Depression Total Score: 7 03/04/19 23 9:17 AM EST documented as of this encounter Care Teams Nuisance Wildlife Specialist Relationship Specialty Start Date End Date Name, MD Gregg [address] [place] [phone] PCP - General Family Medicine 04/16/15 [facility] 05/23/24 documented as of this encounter
--- OUTSIDE RECORDS SUMMARY | 2024-12-19 06:26 | XMS_ITS | Encounter Summary ---
Author Organization [employer] Address [address] [facility] [address] 7[address] [place] [address] Care Team Providers Care Principal Architect Name Role Phone Name, Gregg DIAMOND Primary Care Provider [phone] Reason for Visit * Reason Onset Date Comments Nurse Triage 11/27/2022 Encounter Details Date Type Department Care Team ([facility] st Contact Info) Description 11/27/[address] [facility] MEDICINE [address] [place] [address] Name, MD Gregg [address] [place] [address] Nurse Triage Social History Tobacco Use Types [...] t he electric, gas, oil or water [employer] threatened to shut off services in your [...] caller accepted this outcome Does not need hot baller . documented in this encounter Plan of Treatment Upcoming Encounters Date Type Department Care Team (Late st Contact Info) Description 01/02/2025 8:30 AM EST Office Visit [facility] ADULT DENTAL [address] [place] [address] Heath Dougherty DDS [address] [place] [address] 03/06/2025 9:00 AM EST Office Visit [facility] MEDICINE [address] [place] [address] Name, MD Gregg [address] [place] [address] 07/02/2025 10:15 AM EDT Office Visit [facility] ADULT DENTAL [address] [place] [address] Faye Mi documented as of this encounter Visit Diagnoses Not on filedocumented in this encounter Additional Health Concerns Assessment Noted Time PHQ-9 Depression Total Score: 7 03/04/19 23 9:17 AM EST documented as of this encounter Care Teams Principal Architect Relationship Specialty Start Date End Date Name, MD Gregg [address] [place] [address] PCP - General Family Medicine 04/16/15 [facility] 05/23/24 documented as of this encounter
--- OUTSIDE RECORDS SUMMARY | 2024-12-19 06:26 | XMS_ITS | Data Portability ---
Author Organization [employer], [employer] [facility] Address [address] [place] [address] Care Team Providers Care Capacity Manager Name Role Phone HIM CCA OTHER NAME, CUAUHTEMOC Primary Care Provider [phone] Assessment Encounter Date Assessment Date Assessment LastModified by Organization Details LastModified Time 08/31/2024 08/31/2024 Evaluation in th e field was performed by my landscape artist colleague, as noted above, I provided real-time [...] prior for knee pain VSS reported exam mid-soaping machine back tender to palpation #Acute on Chronic back pain uncomplicated at this time ketorlac 30mg IM x1 advised pt of relative contraindication to ketorlac IM for next 2-3 wks vkudesia Not available 09/22/2024 19:07:14 10/03/2024 10/03/2024 As noted, we wer e called to see this patient regarding concerns of Cough and cold symptoms. Evaluation in the field was performed by my landscape artist colleague, as noted above, I provided real-time [...] recorded. Lab rapid flu (A+B) 2024 025 [facility], [address] [place] [address], [id number] 5 11:47:20 rapid SARS CoV 2 Ag, QL IA, respiratory specimen 2024 025 [facility], [address] [place] [address], [id number] 11:47:47 Referral None recorded. Procedures None recorded. Surgeries None recorded. Imaging None recorded. Medication Orders benzonatate 100 mg capsule 2024 025 [facility], [address] [place] [address], [id number], 5 05:01:37 benzonatate 100 mg capsule 2024 025 [facility], [address] [place] [address], [id number], 5 05:01:37 ketorolac 30 mg/mL injection solution 2024 025 zita [facility], [address] [place] [address], [id number], 18:37:59 ketorolac 30 mg/mL injection solution 2024 025 jeaneth [facility], [address] [place], [id number], 5 18:57:39 hydroxyzine HCl 25 mg tablet 2024 025 JUSTINA [facility], [address], [place], [id number], 5 19:17:38 Patient TargetsNo targets recorded. Patient InstructionsNo instructions recorded. Reason for Referral None Reported. Results Created Date Observation Date Name Description Value Unit Range Abnormal Flag Note LastModifiedBy Organization Detail LastModifiedTime 08/11/19 25 08/12/2024 URINE CULTU RE, UROLO GY RIAZ P urine culture, urology workup Final report Not Available [facility] ([facility]) [address] [facility], [place], [address], 08/12/2024 12:05:44 08/11/19 25 08/12/2024 URINE CULTU RE, UROLO GY RIAZ P result 1 COMMEN T No growt h in 36 - 48 hours . Not Available [facility] ([facility]) [address] [facility], [place], [address], 08/12/2024 12:05:44 Result Notes None recorded. Problems Name Problem SNOMED Code Status Onset Date Resolution Date Notes Provider Name and Address Organization Details Recorded Time Benign intracran ial hypertens ion 97162504 Active 2011 Loki Barajas MD [address] [facility],[address], [place], [address], [employer] 18:36:13 Mixed anxiety and depressiv e disorder 014042889 Active 2011 Loki Barajas MD [address] [facility],[address], [place], [address], [employer] 18:37:21 Hypertens wanda disorder 26362735 Active 2011 Loki Barajas MD [address] [place] [address],[address], [place], [address], [place] [employer], [employer] 18:36:41 Morbid obesity 541111716 Active 2011 Loki Barajas MD [address] [place] [address],[address], [place], [address], [place] - [employer] 18:36:22 Obstructi ve sleep apnea syndrome 24168180 Active 2012 Loki Barajas MD [address] [place] [address],[address], [place], [address], [employer], [employer] 18:36:34 Asthma 318301045 Active 2012 Loki Barajas MD [address] [place] [address],[address], [place], [address], [place] [employer], [employer] 18:37:24 History of adrenalec gerri 396798074068 106 Active 2012 Loki Barajas MD [address] [place] [address],[address], [place], [address], [employer], [employer] 18:37:15 Mixed conductiv e and sensorine ural hearing loss of right ear 156438750774 05 Active 2014 Mixed conductiv e and sensorine ural hearing loss, unilatera l, right ear, with unrestric peggy hearing on the contralat eral side; Note: Date Diagnosed : 11/15/2014 5:00 PM (H90.71) Loki Barajas MD [address] [place] [address],[address], [place], [address], [employer] 18:37:04 History of bypass of stomach 619669088 Active 2015 Loki Barajas MD [address] [place] [address],[address], [place], [address], [place] [employer] 18:37:18 Migraine 91442800 Active 2017 Loki Barajas MD [address] [place] [address],[address], [place], [address], [employer], [employer] 18:36:38 Osteoporo sis 17491799 Active 2021 Loki Barajas MD [address] [place] [address],[address], [place], [address], Kite [place] - [employer], [employer] 18:36:25 Vertigo 282907334 Active 2021 Loki Barajas MD [address] [place] [address],[address], [place], [address], [employer], [employer] 18:36:44 Dental caries 62790002 Active 2023 Loki Barajas MD [address] [place] [address],[address], [place], [address], [employer], [employer] 18:36:56 Osteoarth ritis of right knee joint 274410741914 100 Active 2024 Loki Barajas MD [address] [place] [address],[address], [place], [address], [employer], [employer] 18:36:50 Problem Notes None recorded. Medical Equipment None Reported. Allergies Allergen ID Allergen Name Allergen Category Reaction Reaction Severity Criticality Documentation Date Start Date Code Code System Note Provider Name and Address Organization Details Recorded Time 34488 Nubain medicatio n Not available Not available Not available 05/19/2024 7550 RxNorm Not Available [facility] [employer] 15:03:10 01659 tramadol medicatio n Not available Not available Not available 06/07/2024 10413 RxNorm Not Available [facility] [employer] 17:33:16 36447 nalbuphin e medicatio n anaphylax is dyspnea Not available Not available [facility] 09/22/20242011 7238 RxNorm Loki Barajas MD [address] [place] [address],[address], [place], [address], [employer], [employer] 18:34:01 Medications Name Sig Start Date Stop [...] % 99 % 16 /min 160.02 cm 51158.7 44 g 138/66 mm[Hg] Not Available [employer] 5 18:52:16 Date Recorded Body weight Heart rate Respiratory rate Oxygen saturation Oxygen saturation in Arterial blood by Pulse oximetry Body height Body temperature Systolic And Diastolic Provider Name and Address Organization Details Last Updated DateTime 5 44088.7 44 g 100 /min 18 /min 100 % 100 % 160.02 cm 98.7 [degF] 118/78 mm[Hg] Not Available [facility] 5 18:49:58 Date Recorded Oxygen saturation Oxygen saturation in Arterial blood by Pulse oximetry Heart rate Respiratory rate Body temperature Systolic And Diastolic Provider Name and Address Organization Details Last Updated DateTime 5 96 % 96 % 96 /min 18 /min 98.2 [degF] 120/70 mm[Hg] Not Available [facility] 5 18:32:37 Date Recorded Body temperature Oxygen saturation Oxygen saturation in Arterial blood by Pulse oximetry Heart rate Respiratory rate Systolic And Diastolic Provider Name and Address Organization Details Last Updated DateTime 5 97.6 [degF] 98 % 98 % 96 /min 16 /min 104/72 mm[Hg] Not Available [email or web address] - production 10:36:11 Date Recorded Respiratory rate Oxygen saturation Oxygen saturation in Arterial blood by Pulse oximetry Heart rate Body temperature Systolic And Diastolic Provider Name and Address Organization Details Last Updated DateTime 5 18 /min 99 % 99 % 98 /min 98 [degF] 132/84 mm[Hg] Not Available [email or web address] [facility] [employer] 17:41:46 Social History None recorded. Functional Status None recorded. Mental Status None recorded. Family History Nothing Reported. Medical History No medical history recorded. Gynecological HistoryNo gynecological history recorded. Obstetrics History GPAL:G 0 P 0 0 0 0 Past Encounters Encounter ID Performer Location Encounter Start Date Encounter Closed Date Diagnosis/Indication Diagnosis SNOMED-CT Code Diagnosis ICD10 Code Diagnosis IMO Codes Diagnosis Note [id number] Abran Hayward MD [facility] [address] [place] [phone] 01/31/2024 14:50:58 01/31/2024 16:04:33 [id number] Jameel Haddad MD [facility] [address] [place] [phone] 02/03/2024 19:16:36 02/03/2024 22:59:01 Viral upper respiratory tract infection 092595707 J06.9 S/p treatment for bronchitis with Azithromyc in. Negative COVID/flu test. Able to maintain PO hydration. Discussed red flag signs for which to seek higher level of care. [id number] Rick Hartmann MD [facility] [address] [place] [phone] 02/24/2024 19:36:29 02/24/2024 20:10:20 Diarrhea 80290968 R19.7 As noted, we were called to see this patient regarding concerns of gastroente ritis symptoms. Evaluation in the field was performed by my landscape artist colleague, as noted above, I provided real-time [...] significan t hematochez ia, non-resolv ing diarrhea. [id number] Loki Barajas MD [facility] [address] [place] [phone] 03/30/2024 21:41:10 03/31/2024 15:17:43 Localized eruption of skin 945226582 R21 [id number] Cody Spicer MD [facility] [address] [place] [phone] 05/04/2024 15:18:09 05/04/2024 20:57:19 Abdominal pain 13052364 R10.9 [id number] Christina Ashford MD [facility] [address] [place] [phone] 05/19/2024 12:56:41 05/19/2024 14:17:51 Osteoarthritis of multiple joints 373307758 M15.9 02067937 advised ice / wrapped in a towel [...] makes her feel Chronic pain syndrome 37 6428399 G89.4 44478 Explained to patient we cannot offer controlled [...] and pain management and reviewed red flags [id number] Trisha Bello MD [facility] [address] [place] [phone] 06/07/2024 18:25:16 06/07/2024 21:15:18 Pain 07368287 R52 [id number] As noted, we were called to see this patient regarding concerns of acute on chronic back and joint pain. Evaluation in the field was performed by my landscape artist colleague, as noted above, I provided real-time [...] changes to consciousn ess, chest pain, dyspnea. [id number] Trudy Calderon MD [facility] [address] [place] [phone] 06/16/2024 20:51:22 06/18/2024 23:49:55 Osteoarthritis of left knee joint 3922720227 28854 M17.12 [id number] Jameel Haddad MD [facility] [address] [address] 08/10/2024 16:44:04 08/10/2024 20:30:05 Flank pain 506571916 R10.9 43587 Acute on chronic pain. Has urology appointmen t tomorrow for bladder testing. No bowel or bladder incontinen ce. U/A negative. Will send culture to lab. Chronic pain syndrome 37 6041897 G89.4 15705 Acute on chronic. Has hx of spinal [...] can use intermitte ntly during the week. [id number] JANA EMMANUEL MD [facility] Medical [address] [address] 08/24/2024 20:18:45 08/24/2024 22:21:01 Osteoarthritis of knee 690385170 M17.10 [id number] Natacha Dietrich MD [place] [phone] 08/31/2024 18:52:14 08/31/2024 21:32:40 Anxiety 66398374 F41.9 98932 Chronic pain 47356698 G8 9.29 [id number] VIDAL GREEN MD [address] [address] 09/16/2024 18:37:31 09/18/2024 09:19:40 Pain of bilateral knee regions 1229316792 25736 M25.561 M25.562 52861051 Evaluation in the field was performed by my landscape artist colleague, as noted above, I provided real-time [...] weakness, numbness, incontinen ce, worsening pain, fever [id number] Loki Barajas MD [facility] [address] [phone] 09/22/2024 18:32:34 09/23/2024 08:55:03 Backache 280345929 M54.9 [id number] Steven Lange MD [facility] ED Medical [address] [phone] 10/03/2024 10:36:07 10/03/2024 20:26:38 Viral disease 73636537 B34.9 07317 [id number] Loki Barajas MD [facility] ED Medical [address] [phone] 10/23/2024 17:41:41 10/23/2024 23:20:23 History of fall 845544580 Z91.81 [id number] Health Concerns Section Related Observation LastModified by Organization Detai ls LastModified Time None Recorded Concern Status LastModified by Organization Details LastModified Time None Recorded Advance Directives Directive None Recorded Payers Insurance Date Sequence Insurance Name Policy Number Policy Schrader Covered Member ID Schrader Member ID Guarantor Name 10/23/2024 1 [facility] - DOS ON OR AFTER 2022 - DUAL ELIGIBLE - DETENTION OPTIONS AND ONE CARE (MEDICARE REPLACEMENT/ADV ANTAGE - HMO) Mag Ayala [id number] Mag Ayala Notes Date Note Type Note Provider Name and Address Organization Details Recorded Time 08/31/2024 text/html ROS as noted in the [facility] CRC Nurse Triage Notes (Melanie Grubbs): Reason [...] signs of when to seek emergency care. Visual Manager Organization Information for Serg Romero Business Legal Name: [employer]. Address: [address] [place], [place] [address] [address], Manager Plan: Rich ENCARNACION No.: [id number] Visual Manager POC Test Results from [employer] EKG (18:51:53) EKG test performed. Attachments uploaded as part of this test result can be found under Documents section. ...................... ...................... ...................... ...................... ...................... ...................... ......... Visual Manager Note From Serg Romero: SC1 sent to [...] but never received the call back. While IA1 was on scene the pt was calming [...] of breath, syncope, fever, altered mental status. [facility] cleared the call. WRR. ...................... ...................... ...................... ...................... ...................... ...................... ......... [facility] Consulted: Natacha Dietrich ...................... ...................... ...................... ...................... ...................... ...................... ......... Disposition: Mel Natacha Dietrich MD [address] [facility],[address], [place], [address], [employer] 08/31/2024 20:00:07 09/16/2024 text/html ROS as noted [...] ...................... ...................... ...................... ...................... ...................... ...................... ......... Visual Manager Note From Clinton Minaya: 63 year old [...] is slow to find a suitable solution. [facility] Medication Orders: ketorolac 30 mg/mL injection solution: Administered ...................... ...................... ...................... ...................... ...................... ...................... ......... [facility] Consulted: Vidal Green ...................... ...................... ...................... ...................... ...................... ...................... ......... Disposition: Mel VIDAL GREEN MD [address] [facility],[address], [place], [address], [facility] [employer] 09/16/2024 20:31:53 09/22/2024 text/html CRC Nurse Triage [...] reports she was seen by [facility] last week and had Toradol shot [...] ...................... ...................... ...................... ...................... ...................... ...................... ......... Visual Manager Note From Tye Jasper: SC12 dispatched to the address listed above for the report of a female green party with back pain. Arrival on scene, [...] that she was seen by [facility] last week for same issue and was given Toradol IM, patient reported improvement in pain with Toradol. Patient denies any recent trauma, denies fever/chills. [facility] noted no redness or bruising to the back. Patient vital signs obtained as noted. [facility] consulted, provided orders for 30mg Toradol IM. 30mg Toradol IM administered in right deltoid, six patient rights verified prior. [facility] advised that she would not be able to have more Toradol for another 2-3 weeks. Red flags discussed with patient, advised to call 911 if her condition worsens. SC12 Clear. [facility] Medication Orders: ketorolac 30 mg/mL injection solution: Administered ...................... ...................... ...................... ...................... ...................... ...................... ......... [facility] Consulted: Loki Barajas ...................... ...................... ...................... ...................... ...................... ...................... ......... Disposition: Fulfilled Loki Barajas MD [address] [place] [address],[address], [place], [address], [employer] 09/22/2024 23:01:57 10/03/2024 text/html ROS as noted in the [facility] CRC Nurse Triage Notes (Yudelka Cintron): Reason [...] signs of when to seek emergency care. Visual Manager Organization Information for [employer] Business Legal Name: [employer]. Address: [address] [place] [address], Manager Plan: Rich Pillai MD [place] No.: [id number] Visual Manager POC Test Results from [employer] Rapid COVID antigen (10:35:22) COVID: - Attachments uploaded as part of this test result can be found under Documents section. Rapid influenza antigen (10:35:23) Flu: - Attachments uploaded as part of this test result can be found under Documents section. ...................... ...................... ...................... ...................... ...................... ...................... ......... Visual Manager Note From Jasper Gamble: SC12 dispatched to the address listed above for the report of a female green party with flu like symptoms. Arrival on [...] COVID/FLU rapid performed and negative for all. [facility] consulted, provided orders for 200mg Benzonatate PO and advised he would send prescription to patient preferred pharmacy. 200mg Benzonatate PO administered with incident, six patient rights verified prior. Red flags discussed with patient, advised to call 911 if her condition worsens or if she experiences any life threatening symptoms. SC12 Clear. [facility] Lab Orders: rapid flu (A+B): Performed rapid SARS CoV 2 Ag, QL IA, respiratory specimen: Performed [facility] Medication Orders: benzonatate 100 mg capsule: Performed ...................... ...................... ...................... ...................... ...................... ...................... ......... [facility] Consulted: Steven Lange ...................... ...................... ...................... ...................... ...................... ...................... ......... Disposition: Fulfilled Steven Lange MD [address] [place] [address],[address], [place], [address], [employer] 10/03/2024 11:50:42 10/23/2024 text/html CRC Nurse Triage [...] ...................... ...................... ...................... ...................... ...................... ...................... ......... Visual Manager Note From Nash Strange: Pt seen for [...] shows no further findings. VS as noted. [facility] contacted and advised of Pt complaint, presentation and exam findings. [facility] has no further orders at this time. Pt has no further questions or concerns. Pt advised of red flags to be aware of and to seek medical attention should they arise. Call closed. ...................... ...................... ...................... ...................... ...................... ...................... ......... [facility] Consulted: Loki Barajas ...................... ...................... ...................... ...................... ...................... ...................... ......... Disposition: Fulfilled Loki Barajas MD [address] [facility],[address] [facility], [place], [address], [employer] [facility] 10/23/2024 22:29:24 OBGyn Episode No OBEpisode recorded.
--- OUTSIDE RECORDS SUMMARY | 2024-12-19 06:26 | XMS_ITS | Encounter Summary ---
Author Organization [employer] Address [address] [place] [address] Care Team Providers Care Obstetrics Gynecology Physician Name Role Phone Name, Gregg DIAMOND Primary Care Provider [phone] Reason for Visit * Reason Onset Date Comments Dr. Calvin unable to use dentures 10/23/2024 Encounter Details Date Type Department Care Team ([facility] Contact Info) Description 10/23/2024 Telephone [facility] [address] [place] [address] Ayan Calvin, DMD [address] [place] [address] Dr. Calvin unable to use dentures Social [...] 8:30 AM EST Office Visit [facility] [address] [place] [address] Heath Dougherty DDS [address] [place] [address] 03/06/2025 9:00 AM EST Office Visit [facility] [address] [place] [address] Name, MD Gregg [address] [place] [address] 07/02/2025 10:15 AM EDT Office Visit [facility] [address] [facility] [address] Faye Mi documented as of this encounter Visit Diagnoses Not on filedocumented in this encounter Additional Health Concerns Assessment Noted Time PHQ-9 Depression Total Score: 1 07/18/19 11:20 AM EDT documented as of this encounter Care Teams Obstetrics Gynecology Physician Relationship Specialty Start Date End Date Name, MD Gregg [address] [place] [address] PCP - General Family Medicine 04/16/15 [facility] 05/23/24 documented as of this encounter
--- OUTSIDE RECORDS SUMMARY | 2024-12-19 06:26 | XMS_ITS | Clinical Summary ---
Author Organization [employer] Address [address] [facility] [place] [address] Care Team Providers Care Receiving Teller Name Role Phone Name, Gregg DIAMOND Primary Care Provider Allergies Active Allergy Reactions Criticality Noted Date [...] 2 sprays each nostril bid prn rhinorrhea, sami 15 mL 12/07/19 24 Active doxepin (SINEquan) [...] is already in the process of seeing [facility] Plan: Increase fluids, pain [...] in this area. Last colonoscopy by Dr elizabeth 08/08/2020 Plan: Refer back to Dr. Elizabeth given CT findings. Pt might need a [...] range. Recent lab work not available contacted [facility] for results. Will renew medications at the [...] I will evaluate for congenital adrenal hyperplasia, Dellroy syndrome, polycystic ovarian syndrome although that seems [...] Encounters Date Type Department Care Team Description 12/18/2024 1:30 PM EST Office Visit [facility] [address] [place] [address] Faye Mi Dental calculus (Primary Dx); Dental plaque 12/14/2024 Refill [facility] [address] [place] [address] rGegg Gandhi MD 12/08/2024 Telephone [facility] [address] [place] [address] Gregg Gandhi MD 12/08/2024 Telephone [facility] [address] [place] [address] Gregg Gandhi MD Durable Medical Equipment 12/01/2024 Telephone [facility] [address] [place] [address] Sweta Giraldo MA 12/01/2024 Telephone [facility] [address] [place] [address] Sweta Giraldo MA dec recalls 11/14/2024 9:00 AM EDT Office Visit [facility] [address] [place] [address] Heath Dougherty DDS 11/07/2024 Telephone [facility] [address] [place] [address] Heath Dougherty DDS 11/03/2024 Refill [facility] [address] [place] [address] Gregg Gandhi MD Osteoporosis, unspecified osteoporosis type, unspecified pathological fracture presence 10/26/2024 3:00 PM EDT Office Visit [facility] [address] [place] [address] Ayan Calvin, DMD 10/23/2024 Telephone [facility] [address] [place] [address] Ayan Calvin, DMD Dr. Calvin unable to use dentures 10/20/2024 Telephone [facility] [address] [place] [address] Gregg Gandhi MD Durable Medical Equipment 10/19/2024 9:00 AM EDT Office Visit [facility] [address] [place] [address] Ayan Calvin, DMD 10/18/2024 2:45 PM EDT Office Visit [facility] [address] [place] [address] Gregg Gandhi MD Obesity (BMI 30-39.9) (Primary Dx) 10/18/2024 Travel 09/28/2024 Results Follow-Up [facility] [address] [place] [address] Maura Taylor, BRIAN XR Clavicle Left 09/27/2024 Refill [facility] [address] [place] [address] Gregg Gandhi MD Osteoporosis, unspecified osteoporosis type, unspecified pathological fracture presence 09/26/2024 1:30 PM EDT Office Visit [address] [address] Nicole Dai NP Acute pain of left shoulder (Primary Dx) 09/26/2024 Travel 09/25/2024 Refill [facility] [address] [place] [address] Gregg Gandhi MD 09/25/2024 Telephone [facility] [address] [place] [address] Gregg Gandhi MD Nurse Triage 09/22/2024 Refill [facility] [address] [place] [address] Gregg Gandhi MD 09/20/2024 Refill [facility] [address] [place] [address] Gregg Gandhi MD Osteoporosis, unspecified osteoporosis type, [...] Pressure 138/86 12/18/2024 1:40 PM EST Pulse 96 10/18/2024 3:24 PM EDT Temperature [...] AM EST Office Visit [facility] [address] [place] [address] Heath Dougherty DDS [address] [place] [address] 03/06/2025 9:00 AM EST Office Visit [facility] [address] [place] [address] Name, MD Gregg [address] [place] [address] 07/02/2025 10:15 AM EDT Office Visit [facility] [address] [place] [address] Faye Mi Health Maintenance Due Date Last Done Comments CT Colonography 1958 FIT DNA/Cologuard 1960 FIT 1960 FOBT 1960 Sigmoidoscopy 1960 Hepatitis C Screening 1976 RSV Patients and Patients Aged 60 years or older (1 - Risk 60-74 years 1-dose series) 2018 Dental Oral Exam 03/03/2024 08/31/2023 Mammogram 04/19/2025 04/20/2023, 03/19, 04/09/2022, Additional history exists Lipid Panel 05/20/2025 05/20/2020 COVID-19 Vaccine ( season) 2025 12/13/2024, 11/17/2022, 12/25/2021, Additional history exists Dental Prophylaxis 06/18/2025 12/18/2024, 08/31/2023 Depression Screening 07/17/2025 07/17/2024, 07/18/19 25 Colonoscopy 08/08/2025 08/08/2020 Colorectal Cancer Screening 08/08/2025 SDOH Screening 08/28/2025 08/28/2024 Alcohol/Substance Use Screening 09/26/2025 09/26/2024 Tobacco Screening 12/18/2025 12/18/2024 Dental X-Ray: Bitewings 12/19/2025 12/19/19 25, 08/31/2023, 08/02/2023 DTaP/Tdap/Td Vaccines (2 - Td or Tdap) [...] Procedure Name Priority Date/Time Associated Diagnosis Comments ORAL HYGIENE INSTRUCTIONS Routine 12/18/2024 1:30 PM EST Dental calculus Dental plaque CASE PRESENTATION, DETAILED AND EXTENSIVE TREATMENT PLANNING Routine 12/18/2024 1:30 PM EST INTRAORAL - PERIAPICAL EACH ADDITIONAL RADIOGRAPHIC IMAGE Routine 12/18/2024 1:30 PM EST INTRAORAL - PERIAPICAL FIRST RADIOGRAPHIC IMAGE Routine 12/18/2024 1:30 PM EST INTRAORAL - PERIAPICAL EACH ADDITIONAL RADIOGRAPHIC IMAGE Routine 12/18/2024 1:30 PM EST INTRAORAL - PERIAPICAL EACH ADDITIONAL RADIOGRAPHIC IMAGE Routine 12/18/2024 1:30 PM EST BITEWINGS - 2 RADIOGRAPHIC IMAGES Routine 12/18/2024 1:30 PM EST PROPHYLAXIS - ADULT Routine 12/18/2024 1 :30 PM EST Dental calculus Dental plaque LIMITED ORAL EVALUATION - PROBLEM FOCUSED Routine [...] PM EDT Acute pain of left shoulder INTRAORAL - COMPLETE SERIES OF RADIOGRAPHIC IMAGES [...] PM EDT Narrative 09/26/2024 3:29 [place] [address] XRay Report Signed Patient: Mag Ayala MR#: [id number] 4 : 1960 Acct:[id number] Age/Sex: 63 / F ADM Date: 09/26/24 Loc: HO.HHCX Attending Dr: Nicole Dai ELECTRONIC INSTALLER Ordering Physician: Nicole Dai NP Date of Service: 09/26/24 Procedure(s): XR clavicle LT Accession Number(s): [id number] cc: Nicole Dai ELECTRONIC INSTALLER EXAMINATION: XR CLAVICLE LEFT HISTORY: pain COMPARISON: [...] 09/26/24 1526 DD/ 1420 TD/TT: 09/26/24 1450 [employer] Handler: Procedure Note Donotuseinterpreter, Image - 09/26/[address] [address] XRay Report Signed Patient: Riccardo AyalanMR#: [id number] 4 : 9Acct:[id number] Age/Sex: 63 / FADM Date: 09/26/24 Loc: HO.HHCX Attending Dr: Nicole Dai ELECTRONIC INSTALLER Ordering Physician: Nicole Dai NP Date of Service: 09/26/24 Procedure(s): XR clavicle LT Accession Number(s): [id number] cc: Nicole Dai ELECTRONIC INSTALLER EXAMINATION: XR CLAVICLE LEFT HISTORY: pain COMPARISON: [...] 09/26/24 1526 DD/ 1420 TD/TT: 09/26/24 1450 [employer] Handler: us Nicole Dai [place] IMG XR PROCEDURES Final Result * BI Mammogram Screening Tomosynthesis Bilateral (04/20/2023 12:05 PM EST) Anatomical Region Laterality Modality Breast Bilateral Mammography 04/20/2023 12:0 5 PM EST Narrative 05/05/2023 8:29 AM EDT [place] [place] [address] Mammography Report Signed Patient: Mag Ayala MR#: [id number] 4 : 1960 Acct:[id number] Age/Sex: 62 / F ADM Date: 04/20/23 Loc: HO.MAMMO Attending Dr: Gregg Gandhi MD Ordering Physician: Gregg Gandhi MD Results: 1Negative Date of Service: 04/20/23 Follow Up: 1 Year From Orig inal Mammogram Procedure(s): MM tomosynthesis screening BI Accession Number(s): [id number] cc: Gregg Gandhi MD EXAMINATION: MM SCREENING [...] signed by Alverto Carrington MD in OV> [id number] DD/ 1205 TD/TT: [employer] Handler: Procedure Note Donotuseinterpreter, Image - 05/05/2023 [facility] [address] [place] [address] Mammography Report Signed Patient: Eulalia Ayala#: [id number] 4 : 9Acct:[id number] Age/Sex: 62 / FADM Date: 04/20/23 Loc: HO.MAMMO Attending Dr: Gregg Gandhi MD Ordering Physician: Gregg Gandhi MDResults: 1Negative Date of Service: 04/20/23Follow Up: 1 Year From Orig inal Mammogram Procedure(s): MM tomosynthesis screening BI Accession Number(s): [id number] cc: Gregg Gandhi MD EXAMINATION: MM SCREENING [...] signed by Alverto Carrington MD in OV> 05/05/23824 DD/ 1205 TD/TT: [employer] Handler: us Gregg Gandhi MD IMG BI PROCEDURES Final [...] LDL-C. Darek MADISON et al. BOO. 2013;310(19): 6942-6875 (http://education.Mitralign.com/faq/LDR661) Non-HDL Cholesterol 125 <130 mg/dL (calc) [facility] Comment: For patients with diabetes plus 1 major ASCVD risk factor, treating to a non-HDL-C goal of <100 mg/dL (LDL-C of <70 mg/dL) is considered a therapeutic option. Triglycerides 80 <150 mg/dL [facility] 05/20/2020 9:32 AM EDT us Gregg Gandhi MD LAB BLOOD ORDERABLES Final Resul t [facility] [address] from Last 3 Months or Most Recently Relevant to Health Maintenance Insurance [facility] STANDARD [facility] HALFWAY OPTIONS (HMO D-SNP) [facility] Care Teams Receiving Teller Relationship Specialty Start Date End Date Name, MD Gregg [address] [place] [address] PCP - General Family Medicine 04/16/15 [facility] 05/23/24
--- OUTSIDE RECORDS SUMMARY | 2024-12-19 06:26 | XMS_ITS | Encounter Summary ---
Author Organization [employer] Address [address] [facility] [address] [place] [address] Care Team Providers Care Infection Prevention Coordinator Name Role Phone Name, Gregg DIAMOND Primary Care Provider [phone] Reason for Visit * Reason Comments Med Refill Encounter Details Date Type Department Care Team ([facility] st Contact Info) Description 12/14/2024 Refill [facility] [address] [place] [address] Name, MD Gregg 230 [place] [address] Social History Tobacco Use Types Packs/Day Years [...] Description 01/02/2025 8:30 AM EST Office Visit [facility] ADULT D[facility] [address] [place] [address] Heath Dougherty DDS [address] [place] [address] 03/06/2025 9:00 AM EST Office Visit [facility] [address] [place] [address] Name, MD Gregg [address] [place] [address] 07/02/2025 10:15 AM EDT Office Visit [facility] [address] [place] [address] Faye Mi documented as of this encounter Visit Diagnoses Not on filedocumented in this encounter Additional Health Concerns Assessment Noted Time PHQ-9 Depression Total Score: 1 07/18/19 25 11:20 AM EDT documented as of this encounter Care Teams Infection Prevention Coordinator Relationship Specialty Start Date End Date Name, MD Gregg [address] [place] [address] PCP - General Family Medicine 04/16/15 [facility] 05/23/24 documented as of this encounter
--- OUTSIDE RECORDS SUMMARY | 2024-12-19 06:27 | XMS_ITS | Encounter Summary ---
Author Organization [employer] Address [address] [facility] [address] [place] [address] Care Team Providers Care Anode Worker Name Role Phone Name, Gregg DIAMOND Primary Care Provider [phone] Reason for Visit * Reason Onset Date Comments Nurse Triage 05/04/2024 Encounter Details Date Type Department Care Team ([facility] st Contact Info) Description 05/04/2024 Telephone [facility] [address] [place] [address] Name, MD Gregg [address] [place] [address] Nurse Triage Social History Tobacco Use Types [...] information. Do see mention of hemorrhoids. 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 Call returned to Mag Ayala to triage [...] to perform UA. Pt requesting referral to Dispensing And Measuring Optician per recommendation from Chlorobutadiene Scrubber Operator. Pt advised will forward note to [...] acuity questions The caller accepted this outcome. [phone] (greenlandic) pt states knows Armenian but there are some words she can't say or understand. Tc from pt stating visited the day care aide today, and he told pt should ask her PCP for a referral for a prosthetic because pt has several purple veins in the anus. Pt states this hasn't happenedto her before. documented in this encounter Plan of Treatment Upcoming Encounters Date Type Department Care Team (Late st Contact Info) Description 01/02/2025 8:30 AM EST Office Visit [facility]ULT [facility] [address] [place] [address] Heath Dougherty DDS [address] [place] [address] 03/06/2025 9:00 AM EST Office Visit [facility] [address] [place] [address] Name, MD Gregg [address] [place] [address] 07/02/2025 10:15 AM EDT Office Visit [facility] [address] [facility] [place] [address] Faye Mi documented as of this encounter Visit Diagnoses Not on filedocumented in this encounter Additional Health Concerns Assessment Noted Time PHQ-9 Depression Total Score: 0 09/01/19 10:42 AM EDT documented as of this encounter Care Teams Anode Worker Relationship Specialty Start Date End Date Name, MD Gregg [address] [facility] [place] [address] PCP - General Family Medicine 04/16/15 [facility] 05/23/24 documented as of this encounter
--- OUTSIDE RECORDS SUMMARY | 2024-12-19 06:27 | XMS_ITS | Encounter Summary ---
Author Organization [employer] Address 75 [facility] 7t [place] [address] Care Team Providers Care Media Analytics Manager Name Role Phone Name, Gregg DIAMOND Primary Care Provider [phone] Encounter Details Date Type Department Care Team (Late Contact Info) Description 07/20/2022 Abstract [facility] [address] [place] [address] Name, MD Gregg [address] [place] [address] Social History Tobacco Use Types Packs/Day Years [...] Office Visit [facility]ULT [facility] [address] [place] [phone] Heath Dougherty DDS 230 [place] [address] 03/06/2025 9:00 AM EST Office Visit [facility] [address] [place] [address] [place] [address] Name, MD Gregg [address] [facility] [place] [address] 07/02/2025 10:15 AM EDT Office Visit [facility] [address] [facility] [place] [place] [address] Faye Mi documented as of this encounter [...] as of this encounter Care Teams Media Analytics Manager Relationship Specialty Start Date End Date Name, [place] [address] PCP - General Family Medicine 04/16/15 [facility] 05/23/24 documented as of this encounter
--- OUTSIDE RECORDS SUMMARY | 2024-12-19 06:27 | XMS_ITS | Encounter Summary ---
Author Organization [employer] Address 75 [facility] 7t [place] [address] Care Team Providers Care Motorcycle Repair Shop Supervisor Name Role Phone Name, Gregg DIAMOND Primary Care Provider [phone] Reason for Visit * Reason Comments Med Refill Encounter Details Date Type Department Care Team ( st Contact Info) Description 10/14/2022 Refill [facility] [address] [place] [address] Name, MD Gregg 230 [place] [address] Osteoporosis, unspecified osteoporosis type, unspecified pathological fracture [...] 8:30 AM EST Office Visit [facility] ADULT [facility] [address] [place] [address] Heath Dougherty DDS [address] [place] [address] 03/06/2025 9:00 AM EST Office Visit [facility] [address] [place] [address] Name, [place] [address] 07/02/2025 10:15 AM EDT Office Visit [facility] [address] [place] [address] Faye Mi documented as of this encounter Visit Diagnoses Diagnosis Osteoporosis, unspecified osteoporosis type, unspecified pathological fracture presence documented in this encounter Additional Health Concerns Assessment Noted Time PHQ-9 Depression Total Score: 7 03/04/19 23 9:17 AM EST documented as of this encounter Care Teams Motorcycle Repair Shop Supervisor Relationship Specialty Start Date End Date Name, [place] [address] PCP - General Family Medicine 04/16/15 [facility] 05/23/24 documented as of this encounter
--- OUTSIDE RECORDS SUMMARY | 2024-12-19 06:27 | XMS_ITS | Encounter Summary ---
Author Organization [employer] Address [address] [facility] [address] [place] [address] Care Team Providers Care Press Clipper Name Role Phone Name, Gregg DIAMOND Primary Care Provider [phone] Reason for Visit * Reason Onset Date Comments Appointment Request 05/24/2024 Encounter Details Date Type Department Care Team ([facility] Contact Info) Description 05/24/2024 Telephone [facility] [address] [place] [address] Name, MD Gregg [address] [place] [address] Appointment Request Social History Tobacco Use Types [...] the phone she will. Contact pt at [phone] documented in this encounter Plan of Treatment Upcoming Encounters Date Type Department Care Team (Late st Contact Info) Description 01/02/2025 8:30 AM EST Office Visit [facility] ADULT [facility]ENT[facility] [address] [place] [address] Heath Dougherty DDS 230 [place] [address] 03/06/2025 9:00 AM EST Office Visit [facility] [address] [place] [address] Name, MD Gregg [address] [place] [address] 07/02/2025 10:15 AM EDT Office Visit [facility] [address] [place] [address] Faye Mi documented as of this encounter Visit Diagnoses Not on filedocumented in this encounter Additional Health Concerns Assessment Noted Time PHQ-9 Depression Total Score: 0 09/01/19 24 10:42 AM EDT documented as of this encounter Care Teams Press Clipper Relationship Specialty Start Date End Date Name, MD Gregg [address] [place] [address] PCP - General Family Medicine 04/16/15 [facility] 05/23/24 documented as of this encounter
--- OUTSIDE RECORDS SUMMARY | 2024-12-19 06:27 | XMS_ITS | Encounter Summary ---
Author Organization [employer] Address 75 [facility] 7t [place] [address] Care Team Providers Care High Court Justice Name Role Phone Name, Gregg DIAMOND Primary Care Provider [phone] Reason for Visit * Reason Comments Med Refill Encounter Details Date Type Department Care Team ( st Contact Info) Description 10/06/2022 Refill [facility] [address] [place] [address] Name, MD Gregg [address] [place] [address] Osteoporosis, unspecified osteoporosis type, unspecified pathological fracture [...] 8:30 AM EST Office Visit [facility] ADULT DENT[facility] [address] [place] [address] Heath Dougherty DDS [address] [place] [address] 03/06/2025 9:00 AM EST Office Visit [facility] [address] [place] [address] Name, [place] [address] 07/02/2025 10:15 AM EDT Office Visit [facility] [address] [place] [address] Faye Mi documented as of this encounter Visit Diagnoses Diagnosis Osteoporosis, unspecified osteoporosis type, unspecified pathological fracture presence documented in this encounter Additional Health Concerns Assessment Noted Time PHQ-9 Depression Total Score: 7 03/04/19 23 9:17 AM EST documented as of this encounter Care Teams High Court Justice Relationship Specialty Start Date End Date Name, [place] [address] PCP - General Family Medicine 04/16/15 [facility] 05/23/24 documented as of this encounter
--- OUTSIDE RECORDS SUMMARY | 2024-12-19 06:27 | XMS_ITS | Encounter Summary ---
Author Organization [employer] Address 75 [facility] 7t [place] [address] Care Team Providers Care Nurse Charge Rn Name Role Phone Name, Gregg DIAMOND Primary Care Provider [phone] Reason for Visit * Reason Onset Date Comments Medication Question 09/04/2024 Encounter Details Date Type Department Care Team ([facility] Contact Info) Description 09/04/2024 Telephone [facility] [address] [place] [address] Name, MD Gregg 230 [place] [address] Medication Question Social History Tobacco Use Types [...] increase dosage of zepbound. Contact pt at [phone] for any questions. documented in this encounter Plan of Treatment Upcoming Encounters Date Type Department Care Team ([facility] st Contact Info) Description 01/02/2025 8:30 AM EST Office Visit [facility] ADULT [facility] [address] [place] [address] Heath Dougherty DDS [address] [place] [address] 03/06/2025 9:00 AM EST Office Visit [facility] [address] [place] [address] Name, MD Gregg [address] [place] [address] 07/02/2025 10:15 AM EDT Office Visit [facility] [address] [place] [address] Faye Mi documented as of this encounter Visit Diagnoses Not on filedocumented in this encounter Additional Health Concerns Assessment Noted Time PHQ-9 Depression Total Score: 1 07/18/19 11:20 AM EDT documented as of this encounter Care Teams Nurse Charge Rn Relationship Specialty Start Date End Date Name, MD Gregg 230 [place] [address] PCP - General Family Medicine 04/16/15 [facility] 05/23/24 documented as of this encounter
--- OUTSIDE RECORDS SUMMARY | 2024-12-19 06:27 | XMS_ITS | Clinical Summary ---
Author Organization [facility] Address [address] [place] [address] [place] [phone] Phone Care Team Providers Care Operating Table Assembler Name Role Phone Name, Gregg DIAMOND Primary Care Provider [phone] Allergies Active Allergy Reactions Criticality Noted Date [...] directed by MD Active lorcaserin 20 mg [id number]:St atus post bariatric surgery Take 20 mg [...] 02/20/19 Active calcium carb/D3/magnesium/ zinc (CALCIUM CARB-D3-MAG [id number]) [id number] ps-xzpr-yd-mg Tab Take 1 tablet by mouth. Active [...] I will evaluate for congenital adrenal hyperplasia, [place] syndrome, polycystic ovarian syndrome although that seems [...] range. Recent lab work not available contacted [facility] for results. Will renew medications at the [...] reference range. She does have follow-up with picker machine operator and hopefully this will yield some information. I would not make any changes to the dose of levothyroxine. Encounters Date Type Department Care Team Description 12/01/2024 Refill [facility] [address] [place] [address] Sandra Flores [place] 10/12/2024 Telephone [facility] Endocrinology [address] [place] [address] Dionicio Chakraborty, thyroid check (thyroid check) from [...] Telemedicine - audio only [facility] [address] [place] [address] Dionicio Chakraborty DO [address] [place] [address] [email or web address] Health Maintenance Due Date Last Done Comments [...] Procedure Name Priority Date/Time Associated Diagnosis Comments THYROID STIMULATING HORMONE (TSH) Routine 11/15/2023 2:27 PM EDT Acquired hypothyroidism from Last 3 Months or Most Recently Relevant to Health Maintenance Results * TSH (11/15/2023 2:27 PM EDT) Blood Dionicio Chakraborty DO LAB BLOOD BKR ORDERABLES Final R esult [facility] [address] [place] [address] from Last 3 Months or Most Recently Relevant to Health Maintenance Insurance MEDICARE PART A & B [facility] MEDICARE PART A & B [facility] MEDICARE REPLACEMENT MEDICARE PART A & B [facility] RE[facility] MEDICARE PART A & B [facility] MEDICARE [facility]PLACEMENT MEDICARE PART A & B [facility] MEDICARE REPLACEMENT [place] [id number] MEDICARE PART A & B [facility] MEDICARE REPLACEMENT YARI CASTRO [id number] Care Teams Operating Table Assembler Relationship Specialty Start Date End Date Name, MD Gregg [address] [place] [address] PCP - General Geriatric Psychiatry 03/15/18 Additional Source Comments The information contained in this document represents components of the legal health record. It is not the complete legal health record.[facility]
--- OUTSIDE RECORDS SUMMARY | 2024-12-19 06:27 | XMS_ITS | Encounter Summary ---
Author Organization [employer] Address [address] [facility] 7t [place] [address] Care Team Providers Care Oxygen Therapy Teacher Name Role Phone Name, Gregg DIAMOND Primary Care Provider [phone] Reason for Visit * Reason Comments Med Refill Encounter Details Date Type Department Care Team ([facility] st Contact Info) Description 03/04/2022 Refill [facility] MEDICINE [address] [place] [address] Name, MD Gregg [address] [place] [address] Osteoporosis, unspecified osteoporosis type, unspecified pathological fracture [...] Description 01/02/2025 8:30 AM EST Office Visit [facility] ADULT DENTAL [address] [place] [address] Heath Dougherty DDS [address] [place] [address] 03/06/2025 9:00 AM EST Office Visit [facility] MEDICINE [address] [place] [phone] NameGregg MD [address] [place] [address] 07/02/2025 10:15 AM EDT Office Visit [facility] ADULT DENTAL [address] [place] [address] Faye Mi documented as of this encounter Visit Diagnoses Diagnosis Osteoporosis, unspecified osteoporosis type, unspecified pathological fracture presence documented in this encounter Additional Health Concerns Assessment Noted Time PHQ-9 Depression Total Score: 7 03/04/19 23 9:17 AM EST documented as of this encounter Care Teams Oxygen Therapy Teacher Relationship Specialty Start Date End Date Name, MD Gregg [address] [place] [address] PCP - General Family Medicine 04/16/15 [facility] 05/23/24 documented as of this encounter
--- OUTSIDE RECORDS SUMMARY | 2024-12-19 06:27 | XMS_ITS | Encounter Summary ---
Author Organization [employer] Address [address] [facility] [address] 7t [place] [address] Care Team Providers Care Assembler Equipment Name Role Phone Name, Gregg DIAMOND Primary Care Provider Reason for Visit * Reason Onset Date Comments Durable Medical Equipment 12/08/2024 Encounter Details Date Type Department Care Team ([facility] st Contact Info) Description 12/08/2024 Telephone [facility] MEDICINE [address] [place] [address] Name, MD Gregg [address] [place] [address] Durable Medical Equipment Social History Tobacco Use [...] * Telephone Encounter - Gregg Orta - 12/14/2024 3:11 PM EDT Tc from pt calling back regarding prior message. Any questions contact pt at [phone] * Telephone Encounter - Gregg Orta - 12/08/2024 9:33 AM EDT Tc from pt reporting that the shower chair has broke and will need a new one to be sent to [facility]. Any questions contact pt at [phone] documented in this encounter Plan of Treatment Upcoming Encounters Date Type Department Care Team (Late st Contact Info) Description 01/02/2025 8:30 AM EST Office Visit [facility] ADULT DENTAL [address] [place] [address] Heath Dougherty DDS [address] [place] [address] 03/06/2025 9:00 AM EST Office Visit [facility] MEDICINE [address] [facility] [place] [address] Name, [place] [address] 07/02/2025 10:15 AM EDT Office Visit [facility] ADULT DENTAL [address] [facility] [place] [address] Faye Mi documented as of this encounter Visit Diagnoses Not on filedocumented in this encounter Additional Health Concerns Assessment Noted Time PHQ-9 Depression Total Score: 1 07/18/19 11:20 AM EDT documented as of this encounter Care Teams Assembler Equipment Relationship Specialty Start Date End Date Name, [place] [address] PCP - General Family Medicine 04/16/15 [facility] 05/23/24 documented as of this encounter
--- OUTSIDE RECORDS SUMMARY | 2024-12-19 06:27 | XMS_ITS | Encounter Summary ---
Author Organization [employer] Address [address] [facility] 7t [place] [address] Care Team Providers Care Fabric Separator Operator Name Role Phone Name, Gregg DIAMOND Primary Care Provider [phone] Encounter Details Date Type Department Care Team (Latest Contact Info) Description 12/25/2019 Abstract [facility] Dental, Provider, DDS Social History [...] Description 01/02/2025 8:30 AM EST Office Visit [facility] ADULT DENTAL [address] [place] [phone] Heath Dougherty DDS [address] [place] [address] 03/06/2025 9:00 AM EST Office Visit [facility] MEDICINE [address] [place] [address] Name, MD Gregg [address] [place] [address] 07/02/2025 10:15 AM EDT Office Visit [facility] ADULT DENTAL [address] [place] [address] Faye Mi documented as of this encounter Visit Diagnoses Not on filedocumented in this encounter Care Teams Fabric Separator Operator Relationship Specialty Start Date End Date Name, MD Gregg [address] [place] [address] PCP - General Family Medicine 04/16/15 [facility] 05/23/24 documented as of this encounter
--- OUTSIDE RECORDS SUMMARY | 2024-12-19 06:27 | XMS_ITS | Encounter Summary ---
Author Organization [employer] Address [address] [facility] 7t [place] [address] Care Team Providers Care Powerhouse Tender Name Role Phone Name, Gregg DIAMOND Primary Care Provider Encounter Details Date Type Department Care Team (Late st Contact Info) Description 01/14/2022 Abstract [facility] ADULT DENTAL [address] [place] [address] Dental, Provider, DDS Social History Tobacco Use [...] Department Care Team (Late Contact Info) Description 01/02/2025 8:30 AM EST Office Visit [facility] ADULT DENTAL [address] [place] [address] Heath Dougherty DDS [address] [place] [address] 03/06/2025 9:00 AM EST Office Visit [facility] MEDICINE [address] [place] [address] NameGregg MD [address] [place] [address] 07/02/2025 10:15 AM EDT Office Visit [facility] ADULT DENTAL [address] [place] [address] Mi, Faye documented as of this encounter [...] on filedocumented in this encounter Care Teams Powerhouse Tender Relationship Specialty Start Date End Date Name, MD Gregg [address] [place] [address] PCP - General Family Medicine 04/16/15 [facility] 05/23/24 documented as of this encounter
--- OUTSIDE RECORDS SUMMARY | 2024-12-19 06:27 | XMS_ITS | Encounter Summary ---
Author Organization [employer] Address [address] [address] 7t [place] [address] Care Team Providers Care Account Officer Name Role Phone Name, Gregg DIAMOND Primary Care Provider [phone] Encounter Details Date Type Department Care Team (Late st Contact Info) Description 05/24/2024 Telephone [facility] MEDICINE [address] [place], [place] [phone] Name, MD Gregg [address] [place] [address] Social History Tobacco Use Types Packs/Day Years [...] Description 01/02/2025 8:30 AM EST Office Visit [facility] ADULT DENTAL [address] [place] [address] Heath Dougherty DDS [address] [place] [address] 03/06/2025 9:00 AM EST Office Visit [facility] MEDICINE [address] [place] [address] Name, MD Gregg [address] [place] [address] 07/02/2025 10:15 AM EDT Office Visit [facility] ADULT DENTAL [address] [place] [address] Faye Mi documented as of this encounter Visit Diagnoses Not on filedocumented in this encounter Additional Health Concerns Assessment Noted Time PHQ-9 Depression Total Score: 0 09/01/19 24 10:42 AM EDT documented as of this encounter Care Teams Account Officer Relationship Specialty Start Date End Date Name, MD Gregg [address] [place] [address] PCP - General Family Medicine 04/16/15 [facility] 05/23/24 documented as of this encounter
--- OUTSIDE RECORDS SUMMARY | 2024-12-19 06:27 | XMS_ITS | Encounter Summary ---
Author Organization [employer] Address [address] [facility] [address] 7[address] [place] [address] Care Team Providers Care Retirement Consultant Name Role Phone Name, Gregg DIAMOND Primary Care Provider [phone] Reason for Visit * Reason Onset Date Comments Dr. Marixa chatman back from lab?? 08/31/2024 Encounter Details Date Type Department Care Team ([facility] Contact Info) Description 08/31/2024 Telephone [facility] ADULT DENTAL [address] [place] [address] Ayan Calvin, DMD [address] [place] [address] Dr. Marixa chatman back from lab?? Social [...] for appt. Sent to both provider and manager front office * Telephone Encounter - Nataliia Jalloh - [...] scheduled for delivery. Also message sent to manager front office documented in this encounter Plan of Treatment Upcoming Encounters Date Type Department Care Team (Late st Contact Info) Description 01/02/2025 8:30 AM EST Office Visit [facility] ADULT DENTAL [address] [place] [address] Heath Dougherty DDS [address] [place] [address] 03/06/2025 9:00 AM EST Office Visit [facility] MEDICINE [address] [place] [address] Name, [place] [address] 07/02/2025 10:15 AM EDT Office Visit [facility] ADULT DENTAL [address] [place] [address] Faye Mi documented as of this encounter Visit Diagnoses Not on filedocumented in this encounter Additional Health Concerns Assessment Noted Time PHQ-9 Depression Total Score: 1 07/18/19 11:20 AM EDT documented as of this encounter Care Teams Retirement Consultant Relationship Specialty Start Date End Date Name, [place] [address] PCP - General Family Medicine 04/16/15 [facility] 05/23/24 documented as of this encounter
--- OUTSIDE RECORDS SUMMARY | 2024-12-19 06:27 | XMS_ITS | Data Portability ---
Author Organization [place] - [facility], Allergy Address [address] [address] Assessment No assessment recorded. Plan of Treatment Reminders Order Date Submit Date Provider Last Modified By Organization Details Last Modified Time Details Appointments Establish ed 15 2025 10:15A M YARI OVALLES Not available Not available Not available Lab None recorded. Referral None recorded. Procedures None recorded. Surgeries None recorded. Imaging None recorded. Medication Orders None recorded. Patient TargetsNo targets recorded. Patient InstructionsNo instructions recorded. Reason for Referral None Reported. Problems Name Problem SNOMED Code Status Onset Date Resolution Date Notes Provider Name and Address Organization Details Recorded Time Impacted cerumen 52412782 Active 2014 Disorders of external ear: Impacted cerumen; Note: Date Diagnosed : 11/12/2014 9:15 PM (380.4) Not Available [facility] 4 02:41:52 Unilatera l sensorine ural hearing loss with unrestric peggy hearing on the contralat eral side Active 2014 Sensorine ural HL, unilatera l; Note: Date Diagnosed : 11/12/2014 9:56 PM (389.15) Not Available [facility] 4 02:41:44 Infective otitis externa 66129132 Active 2014 Acute otitis externa; Note: Date Diagnosed : 11/12/2014 9:55 PM (380.10) Not Available [facility] 4 02:41:48 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 hearing on the contralat eral side Active 2014 Mixed hearing loss, unilatera l; Note: Date Diagnosed : 11/12/2014 9:56 PM (389.21) Not Available [facility] 4 02:41:46 Infective otitis externa of left ear 38694340553 90260 Active 2014 Other infective otitis externa, left ear; Note: Date Diagnosed : 11/15/2014 4:59 PM (H60.392) Not Available [facility] 4 02:41:47 Impacted cerumen in left ear 11230021045 60520 Active 2014 Impacted cerumen, left ear; Note: Date Diagnosed : 11/15/2014 4:59 PM (H61.22) Not Available [facility] 4 02:41:51 Mixed conductiv e and sensorine ural hearing loss of left ear 01494868608 107 Active 2014 Mixed conductiv e and sensorine ural hearing loss, unilatera l, left ear, with unrestric peggy hearing on the contralat eral side; Note: Date Diagnosed : 11/15/2014 5:00 PM (H90.72) Not Available [facility] 4 02:41:46 Mixed conductiv e and sensorine ural hearing loss of right ear 99170323990 105 Active 2014 Mixed conductiv e and sensorine ural hearing loss, unilatera l, right ear, with unrestric peggy hearing on the contralat eral side; Note: Date Diagnosed : 11/15/2014 5:00 PM (H90.71) Not Available [facility] 4 02:41:49 Sensorine ural hearing loss 77092567 Active 2014 Sensorine ural hearing loss, unilatera l, right ear, with unrestric peggy hearing on the contralat eral side; Note: Date Diagnosed : 5 1:13 PM (H90.41) Not Available [facility] 4 02:41:50 Impacted cerumen of bilateral ears 99287773797 33941 Active 2015 Impacted cerumen, bilateral ; Note: Date Diagnosed : 08/12/2015 12:36 PM (H61.23) Not Available [facility] 4 02:41:46 Itching of skin 802154757 Active 2016 Other pruritus; Note: Date Diagnosed : 04/10/2016 11:46 AM (L29.8) Not Available [facility] 4 02:41:47 Dysphonia 05298076 Active 2016 Dysphonia ; Note: Date Diagnosed : 05/13/2016 10:26 AM (R49.0) Not Available [facility] 4 02:41:43 Chronic pharyngit is 803493 Active 2016 Chronic sore throat; Note: Date Diagnosed : 05/13/2016 10:24 AM (J31.2) Not Available [facility] 4 02:41:44 Dizziness and giddiness 039473651 Active 2016 Dizziness and giddiness ; Note: Date Diagnosed : 08/17/2016 1:43 PM (R42) Not Available [facility] 4 02:41:51 Sensorine ural hearing loss of bilateral ears 235633952 Active 2016 Sensorine ural hearing loss, bilateral ; Note: Date Diagnosed : 7 4:52 PM (H90.3) Sensori neural hearing loss, bilateral ; Note: Date Diagnosed : 08/12/2015 11:37 AM (H90.3) ; Start Date : 6 Not Available [facility] 4 02:41:48 Otorrhea of right ear 47381430783 86736 Active 2020 Otorrhea, right ear; Note: Date Diagnosed : 04/15/2020 9:41 AM (H92.11) Not Available [facility] 4 02:41:49 Benign paroxysma l positiona l vertigo 133614234 Active 2020 Benign paroxysma l vertigo, left ear; Note: Date Diagnosed : 1 9:47 AM (H81.12) Not Available [facility] 4 02:41:53 Problem Notes None recorded. [...] by mouth 03/20 completed Medicati on ID: [id number] Du ration Value: 7 Brand Name: Augmenti n Send Method: E-Prescr ibed Sub s Allowed: subs OK Medic ationGen ericName : Augmenti n Not Available Not Available Not Available Qvar 80 mcg/actua tion Metered Aerosol oral inhaler 03/20 completed Medicati on ID: [id number] D uration Value: 30 Brand Name: Qlulu Garcia d Method: E-Prescr ibed Sub s [...] mg tablet 03/21 completed Medicati on ID: [id number] D uration Value: 30 Reason: () Brand Name: briandajaneth nikhil Garcia d Method: E-Prescr ibed Sub s Allowed: subs OK Medic ationGen ericName : perphena maytene Not Available Not Available Not Available ipratropi um 0.5 mg-albute rol 3 mg (2.5 mg base)/3 mL nebulizat ion soln 03/20 completed Medicati on ID: [id number] D uration Value: 7 Brand Name: ipratrop ium-albu terol Se nd Method: E-Prescr ibed Sub s Allowed: subs OK Medic ationGen ericName : ipratrop ium-albu terol Not Available Not Available Not Available albuterol sulfate 2.5 mg/3 mL (0.083 %) solution for nebulizat ion INHALE 1 AMPULE USING A NEBULIZE R EVERY 4 HOURS NEEDED FOR WHEEZING OR SHORTNES S OF BREATH active Not Available Not Available No t Available cetirizin e 10 mg tablet TAKE [...] 2 drop 03/20 completed Medicati on ID: [id number] Du ration Value: 7 Prescri bed By Name: Josue johnson MD Brand Name: Maxidex Send Method: E-Prescr ibed Sub s Allowed: subs OK [facility] Not Available Not Available [...] ear drops 03/20 completed Medicati on ID: [id number] Br and Name: Debrox S end Method: [...] 3 drop 03/20 completed Medicati on ID: [id number] D uration Value: 10 Brand Name: Pred [...] Not Available No t Available acetamino phen 500 mg tablet TAKE [...] mg tablet 03/21 completed Medicati on ID: [id number] D uration Value: 28 Reason: () Brand Name: oxycodon e-acetam inophen Send Method: E-Prescr ibed Sub s Allowed: subs OK Medic ationGen ericName : oxycodon e-acetam inophen Not Available Not Available Not Available ofloxacin 0.3 % ear drops Apply 5 drop into both ears twice a day 03/20 completed Medicati on ID: [id number] D uration Value: 7 Brand Name: ofloxaci n Send Method: E-Prescr ibed Sub s Allowed: subs OK [facility] : ofloxaci n Not Available Not [...] mg tablet 12/22 completed Medicati on ID: [id number] Re ason: () Brand Name: Klonopin Send Method: E-Prescr ibed Sub s Allowed: subs OK [facility] : Klonopin Not Available Not Available Not Available meclizine 25 mg tablet TAKE 1 TABLET BY MOUTH TWICE DAILY NEEDED active Not Available Not Available No t Available baclofen 10 mg tablet 2018 active Medicati on ID: [id number] D uration Value: 30 Brand Name: baclofen Send Method: E-Prescr ibed Sub s Allowed: subs OK Speci al Instruct ion: TAKE 1 TABLET TWICE DAILY Me dication GenericN galindo: baclofen Not Available Not Available Not Available doxepin 100 mg capsule 09/30 completed Medicati on ID: [id number] Re ason: () Brand Name: doxepin Send Method: E-Prescr ibed Sub s Allowed: subs OK [facility] : doxepin Not Available Not Available Not Available venlafaxi ne 37.5 mg tablet TAKE 1 TABLET BY MOUTH EVERYDAY AT NOON active Not Available Not Available No t Available oseltamiv ir 75 mg capsule TAKE 1 CAPSULE BY MOUTH TWICE DAILY FOR 5 DAYS 03/20 completed Not Available Not Available Not Available levothyro xine 125 mcg tablet 03/21 completed Medicati on ID: [id number] D uration Value: 30 Reason: () Brand [...] for pain 03/21 completed Medicati on ID: [id number] Re ason: () Brand Name: oxycodon e Send Method: E-Prescr ibed Sub s Allowed: subs OK Medic ationGen ericName : oxycodon e Not Available Not Available Not Available Advair Diskus 250 mcg-50 mcg/dose powder for inhalatio n INHALE 1 PUFF BY MOUTH TWICE DAILY active Not Available Not Available No t Available clotrimaz ole 1 % topical solution 03/20 completed Medicati on ID: [id number] P dain rubio By Name: Josue johnson MD Brand Name: [...] elayed release 03/20 completed Medicati on ID: [id number] D uration Value: 30 Brand Name: omeprazo le Send Method: E-Prescr ibed Sub s Allowed: subs OK Speci al Instruct ion: TAKE 1 CAPSULE BY MOUTH EVERY DAY 30 MINUTES TO 1 HOUR BEFORE MEALS Me dication GenericN galindo: omeprazo le Not Available Not Available Not Available Cortispor in 3.5 mg/g-10,0 00 unit/g-0. 5 % topical cream 12/22 completed Medicati on ID: [id number] Re ason: () Brand Name: Cortispo rin Send Method: E-Prescr ibed Sub s Allowed: subs OK Medic ationGen ericName : Cortispo rin Not Available Not Available Not Available hydroxyzi ne HCl 25 mg tablet TAKE 1 TABLET BY MOUTH THREE TIMES DAILY NEEDED FOR ANXIETY active Not Available Not Available No t Available topiramat e 200 mg tablet 03/20 completed Medicati on ID: [id number] D uration Value: 30 Brand Name: topirama [...] mg tablet 03/20 completed Medicati on ID: [id number] D uration Value: 20 Brand Name: ibuprofe [...] left ear 03/20 completed Medicati on ID: [id number] D uration Value: 7 Brand Name: Cortispo [...] drops,rigo pension 03/20 completed Medicati on ID: [id number] D uration Value: 14 Brand Name: TobraDex Send Method: E-Prescr ibed Sub s Allowed: subs OK Speci al Instruct ion: Instill 3 drops in the affect ear BID for 10 days Med icationG enericNa me: TobraDex Not Available Not Available Not Available Flovent HFA 220 mcg/actua tion aerosol inhaler 03/20 completed Medicati on ID: [id number] D uration Value: 60 Brand Name: Flovent [...] as directed 03/20 completed Medicati on ID: [id number] D uration Value: 7 Brand Name: DermOtic [...] mcg capsule 11/12 completed Medicati on ID: [id number] Re ason: () Brand Name: Tirosint Send [...] Not Available Not Available Not Available Zepbound 15 mg/0.5 mL subcutane ous pen injector INJECT ONE PEN (=15MG) SUBCUTAN EOUSLY ONCE A WEEK DIRECTED active Not Available Not Available No t Available Zepbound 12.5 mg/0.5 mL subcutane ous [...] Updated DateTime 03/20/2024 160.02 cm 30.8 kg/m2 04947.07 g Natacha Childs [facility] 03/20/2024 13:01:51 Date Recorded Body height Body mass index (BMI) Body weight Provider Name and Address Organization Details Last Updated DateTime 08/14/2024 160.02 cm 31.9 kg/m2 89389.63 g Natacha Childs [facility] 08/14/2024 12:59:51 Social History None recorded. Functional Status None recorded. Mental Status None recorded. Family History Nothing Reported. Medical History No medical history recorded. Gynecological HistoryNo gynecological history recorded. Obstetrics History GPAL:G 0 P 0 0 0 0 Past Encounters Encounter ID Performer Location Encounter Start Date Encounter Closed Date Diagnosis/Indication Diagnosis SNOMED-CT Code Diagnosis ICD10 Code Diagnosis IMO Codes Diagnosis Note [id number] JOSUE SHEPHERD MD [facility] [address] [address] 03/20/2024 12:52:27 03/20/2024 13:16:19 Impacted cerumen of bilateral ears 3880823011 130790 H61.23 She has very narrow canals and gets debris impacted against the TM bilaterall y. Cerumen removed and tolerated well. [id number] JOSUE SHEPHERD MD [facility] [address] [address] 08/14/2024 12:21:01 08/14/2024 13:07:51 Impacted cerumen of bilateral ears 7842734835 978433 H61.23 She has very narrow canals and [...] Member ID Schrader Member ID Guarantor Name 12/16/2024 1 [facility] - DOS ON OR AFTER 2022 - INTERMEDIATE OPTIONS AND ONE CARE (MEDICARE REPLACEMENT/AD VANTAGE - PPO) Mag Ayala [id number] Mag Ayala 12/15/2024 1 [place] [facility] Mag Ayala [id number] Mag Ayala Notes Date Note Type Note Provider Name and Address Organization Details Recorded Time 03/20/2024 text/html Dizziness now and then, having some ear itching. JOSUE SHEPHERD MD [address] [place] [address], [phone], [place] - [facility] 03/20/2024 17:18:34 08/14/2024 text/html 63-year-old female presents today for routine ear cleaning. She has chronic pruritus. Spinal stenosisKnee pain JOSUE SHEPHERD MD [address] [place] [address], [phone], [place] - [facility] 08/15/2024 09:20:47 OBGyn Episode No OBEpisode recorded.
--- OUTSIDE RECORDS SUMMARY | 2024-12-19 06:27 | XMS_ITS | Encounter Summary ---
Author Organization [facility] Address [address] [address] [facility] [address] [place] [address] Care Team Providers Care Sales Teacher Name Role Phone Name, Gregg DIAMOND Primary Care Provider [phone] Encounter Details Date Type Department Care Team (Latest Contact Info) Description 09/27/2018 Abstract [facility] CONVERSIONS Dental, Provider, DDS Social [...] Description 01/02/2025 8:30 AM EST Office Visit [facility] ADULT DENTAL [address] [place] [id number] Heath Dougherty DDS [address] [place] [phone] 03/06/2025 9:00 AM EST Office Visit [facility] MEDICINE [address] [place] [phone] Name, MD Gregg [address] [place] [phone] 07/02/2025 10:15 AM EDT Office Visit [facility] ADULT DENTAL [address] [place] [phone] Faye Mi documented as of this encounter Visit Diagnoses Not on filedocumented in this encounter Care Teams Sales Teacher Relationship Specialty Start Date End Date Name, MD Gregg [address] [place] [address] PCP - General Family Medicine 04/16/15 [facility] 05/23/24 documented as of this encounter
== END 2024-12-19 06:19 | disposition home or self-care (01) ==
LOC: CF 06:18
PROVIDERS: Visit Provider Anesthesiology
DX: M46.1 Sacroiliitis, not elsewhere classified (principal)
CPT/HCPCS: 27096; 64493; 64494; J2003; J2795; Q9967

== ENCOUNTER 2024-12-19 10:03 | Outpatient (AMB) | payer OTHER, SELFPAY ==
[2024-12-19 10:16] VITALS: BP 115/70; PULSE 83; RESP 16; O2SAT 99; BMI 28.9
--- NOTE | 2024-12-19 10:16 | MHC.OFFVIS ---
Vital Signs 12/19/24 10:16 12/19/24 11:15 Height 5 ft 3 in Weight 163 lb BMI 28.9 BP 115/70 111/78 Blood Pressure Location Lt brachial Lt brachial Position Sitting Sitting Respiration 16 16 Pulse 83 81 Pulse Source Pulse Oximeter Pulse Oximeter Pulse Oximetry (%) 99 99 Oxygen Delivery Method Room Air Room Air Intake Visit Reasons: (R) Diagnostic SIJ Injection Allergies nalbuphine (From [place]) Allergy (Severe, Verified 12/13/24 11:39) Anaphylaxis tramadol Adverse Reaction (Verified 12/13/24 11:39) itchy [facility] Medical History Diverticulosis of colon Right shoulder injury Kidney calculi Nausea & vomiting Bronchitis Close exposure to 2019-nCoV Strain of tendon of medial thigh muscle Easy bruising Hoarseness Dizziness Clostridium difficile infection Osteoarthritis of right knee Sciatica, left side Osteoarthritis of left knee Bilateral hip pain Urinary retention Painful urination Sleep apnea Somnolence, daytime Obesity (BMI 30-39.9) Migraine Syncope Pseudotumor cerebri Crystal arthropathy Kidney tumor COVID-19 vaccine administered Thyroid disease Colon polyp Bronchial asthma Acid reflux Surgical History Status post gastric bypass for obesity Status post excision of lipoma (09/10/23) History of esophagogastroduodenoscopy (EGD) History of surgery on wrist History of hysterectomy Previous section Hx laparoscopic cholecystectomy Hx of colonoscopy Family History Father Heart disease History of open heart surgery Mother Heart disease Social History Household Members: None Household Members Other:: alone Are you a primary nursing care partner to a significant other at home: No Do you presently have visiting nurse or other home services: No Alcohol intake: never Patient Tobacco Use Status: Former Tobacco user Tobacco use type: Cigarette service: No Current occupational status: disabled Physical Exam Vital Signs: Last Vital Signs Pulse 81 12/19/24 11:15 Resp 16 12/19/24 11:15 BP 111/78 12/19/24 11:15 Pulse Ox 99 12/19/24 11:15 Oxygen Delivery Method Room Air 12/19/24 11:15 BMI result Body Mass Index 28.9 Assessment & Plan Assessment & Plan (1) Radiculopathy, lumbar region: Code(s): M54.16 - Radiculopathy, lumbar region Category: Medical (2) Disc degeneration, lumbar: Code(s): M51.369 - Other intervertebral disc degeneration, lumbar region without mention of lumbar back pain or lower extremity pain Category: Medical (3) Sacroiliitis: Code(s): M46.1 - Sacroiliitis, not elsewhere classified Category: Medical (4) Osteoarthritis of right knee: Code(s): M17.11 - Unilateral primary osteoarthritis, right knee Category: Medical (5) Right knee pain: Code(s): M25.561 - Pain in right knee Category: Medical (6) Chronic right sacroiliac joint pain: Code(s): M53.3 - Sacrococcygeal disorders, not elsewhere classified; G89.29 - Other chronic pain Category: Medical Plan Right diagnostic sacroiliac joint injection. Mag is very pleasant 64 years old female suffering from sacroiliitis and sacroiliac joint dysfunction of the right. She came today to the operating room to receive diagnostic right SI joint injection. Informed consent was thoroughly explained to the patient risks and benefits were explained. The patient was positioned prone on the operating table with pillow under her abdomen. Time-out was performed delineating name and date of of the patient nature of the procedure and allergies of the patient. The lower back and upper buttocks were prepped with ChloraPrep and draped with sterile self adhesive utility towels. C-arm was brought over the operating field and sq picture of the right sacroiliac joint was demonstrated on the screen. Tilting C-arm contralateral to the left the posterior silhouette of the sacroiliac joint was superimposed on anterior silhouette of the sacroiliac joint. Slightly medial to the projection of the joint to the skin injection of the local anesthetic lidocaine 2% mixed with ropivacaine 0.5% was performed. After that 22 gauge 3-1/2 inch needle was driven to the point of interest in tunnel vision fashion. When tip of the needle entered posterior capsule of the joint injection of the contrast was performed delineating arthrogram. After that injection of the ropivacaine 0.5% 5 ml was performed. Upon completion of the injection needle was withdrawn sterile Band-Aid was applied. The patient tolerated the procedure well. Orders: Orders FL guidance in treatment room 12/19/24 M46.1 - Sacroiliitis, not elsewhere classified Coding Level of Care Code Procedure Only Diagnoses Radiculopathy, lumbar region M54.16 Disc degeneration, lumbar M51.369 Sacroiliitis M46.1 Osteoarthritis of right knee M17.11 Right knee pain M25.561 Chronic right sacroiliac joint pain M53.3; G89.29
[2024-12-19 11:15] VITALS: BP 111/78; PULSE 81; RESP 16; O2SAT 99
== END 2024-12-19 11:16 | disposition home or self-care (01) ==
LOC: HO.PMCPRC 10:03
PROVIDERS: PCP Internal Medicine Geriatric Medicine; Visit Provider Anesthesiology
DX: M54.16 Radiculopathy, lumbar region (principal); M51.369 Other intervertebral disc degeneration, lumbar region without mention of lumbar back pain or lower extremity pain; M46.1 Sacroiliitis, not elsewhere classified; M17.11 Unilateral primary osteoarthritis, right knee; M25.561 Pain in right knee; M53.3 Sacrococcygeal disorders, not elsewhere classified; G89.29 Other chronic pain
CPT/HCPCS: 64493; 64494

== ENCOUNTER 2024-12-21 10:01 | Outpatient (AMB) | payer OTHER, SELFPAY ==
--- OUTSIDE RECORDS SUMMARY | 2024-12-18 13:30 | XMS_ITS | Encounter Summary ---
Author Organization [employer] Address [address] [facility] [address] 7t [place] [address] Care Team Providers Care Compositor Apprentice Name Role Phone Name, Gregg DIAMOND Primary Care Provider [phone] Reason for Visit * Reason Comments Routine Cleaning Encounter Details Date Type Department Care Team ([facility] st Contact Info) Description 12/18/2024 1:30 PM EST Office Visit [facility] ADULT DENTAL [address] [place] [address] Faye Mi Dental calculus (Primary Dx); Dental plaque Social History Tobacco Use Types Packs/Day Years [...] Sign Reading Time Taken Comments Blood Pressure 138/86 12/18/2024 1:40 PM EST Pulse - - Temperature - - Respiratory Rate - - Oxygen Saturation - - Inhaled Oxygen Concentration - - Weight - - Height - - Body Mass Index - - documented in this encounter Progress Notes * Faye Mi - 12/18/2024 1:30 PM EST Patient ID: Mag Ayala is a 64 y.o. female. Time Out: Timeout Date: 12/18/24, Timeout Time: 1339 (Dental Prophy Adult) Location: [facility] Tooth: Maxilla and Mandible Procedure: X-rays and Prophylaxis Verified the above with patient, social human services assistants, and provider. Confirmed via patient's chart, intraorally and by radiographs. Construction Teacher: not applicable Medical Hx: Vitals: Blood pressure 138/86. Medications, Med Hx reviewed with patient and updated in chart. Treatment Provided Dental procedures in this visit D1110 - PROPHYLAXIS - ADULT (Completed) Service provider: Faye Mi Billing provider: Ayan Calvin DMD D0220 - INTRAORAL - PERIAPICAL FIRST RADIOGRAPHIC IMAGE (Completed) Service provider: Faye Mi Billing provider: Ayan Calvin DMD D0230 - INTRAORAL - PERIAPICAL EACH ADDITIONAL RADIOGRAPHIC IMAGE (Completed) Service provider: Faye Mi Billing provider: Ayan Calvin DMD [id number] - BITEWINGS - 2 RADIOGRAPHIC IMAGES (Completed) Service provider: Faye Mi Billing provider: Ayan Calvin DMD D0230 - INTRAORAL - PERIAPICAL EACH ADDITIONAL RADIOGRAPHIC IMAGE (Completed) Service provider: Faye Mi Billing provider: Ayan Calvin DMD D0230 - INTRAORAL - PERIAPICAL EACH ADDITIONAL RADIOGRAPHIC IMAGE (Completed) Service provider: Faye Mi Billing provider: Ayan Calvin DMD [id number] - CASE PRESENTATION, DETAILED AND EXTENSIVE TREATMENT PLANNING (Completed) Service provider: Faye Mi Billing provider: Ayan Calvin DMD D1330 - ORAL HYGIENE INSTRUCTIONS (Completed) Service provider: Faye Mi Billing provider: Ayan Calvin DMD Instruments Used: Ultrasonic Scalers, Hand Scalers, Prophy angle, and floss Fluoride: N/A Oral Cancer Screening: No lesions Head/Neck Exam: No Lesions Calculus: Moderate and Generalized Plaque: Light and Generalized Stain: Light and Generalized Bleeding: Light and Generalized Gingiva: Perio Charting Completed and Recession- generalized OH: Poor Perio Chart: Completed Oral hygiene instructions provided to patient including brushing technique and flossing. Recommendations: [place] two times daily, modified grigsby technique, Floss daily, Electric toothbrush, Soft bristle toothbrush, [place] Tongue, Anti-sensitivity toothpaste Recall Frequency: 6 mo NV: 6mrc Hygienist: Faye Mi RDH documented in this encounter Plan of Treatment Upcoming Encounters Date Type Department Care Team (Late st Contact Info) Description 01/02/2025 8:30 AM EST Office Visit [facility] ADULT DENTAL [address] [place] [address] Heath Dougherty DDS [address] [place] [address] 03/06/2025 9:00 AM EST Office Visit [facility] MEDICINE [address] [place] [address] Name, MD Gregg [address] [place] [address] 07/02/2025 10:15 AM EDT Office Visit [facility] ADULT DENTAL [address] [place] [address] Faye Mi documented as of this encounter Procedures Procedure Name Priority Date/Time Associated Diagnosis Comments PROPHYLAXIS - ADULT Routine 12/18/2024 1 :30 PM EST Dental calculus Dental plaque ORAL HYGIENE INSTRUCTIONS Routine 12/18/2024 1:30 PM EST Dental calculus Dental plaque INTRAORAL - PERIAPICAL FIRST RADIOGRAPHIC IMAGE Routine 12/18/2024 1:30 PM EST INTRAORAL - PERIAPICAL EACH ADDITIONAL RADIOGRAPHIC IMAGE Routine 12/18/2024 1:30 PM EST INTRAORAL - PERIAPICAL EACH ADDITIONAL RADIOGRAPHIC IMAGE Routine 12/18/2024 1:30 PM EST INTRAORAL - PERIAPICAL EACH ADDITIONAL RADIOGRAPHIC IMAGE Routine 12/18/2024 1:30 PM EST CASE PRESENTATION, DETAILED AND EXTENSIVE TREATMENT PLANNING Routine 12/18/2024 1:30 PM EST BITEWINGS - 2 RADIOGRAPHIC IMAGES Routine 12/18/2024 1:30 PM EST documented in this encounter Visit Diagnoses Diagnosis Dental calculus- Primary Accretions on teeth Dental plaque Accretions on teeth documented in this encounter Additional Health Concerns Assessment Noted Time PHQ-9 Depression Total Score: 1 07/18/19 11:20 AM EDT documented as of this encounter Care Teams Compositor Apprentice Relationship Specialty Start Date End Date Name, MD Gregg [address] [facility] [place] [address] PCP - General Family Medicine 04/16/15 [facility] 05/23/24 documented as of this encounter
[2024-12-21 10:17] VITALS: BP 123/76; PULSE 96; O2SAT 99; BMI 28.9
--- NOTE | 2024-12-21 10:17 | A.OFFVIS_ITS ---
Vital Signs 12/21/24 10:17 Height 5 ft 3 in Weight 163 lb BMI 28.9 BP 123/76 Blood Pressure Location Rt brachial Position Sitting Pulse 96 Pulse Source Pulse Oximeter Pulse Oximetry (%) 99 Oxygen Delivery Method Room Air Intake Visit Reasons: S/P (R) Diagnostic SIJ Injection Operations [place] Required: No Accompanied by: Self / Same As Patient Allergies nalbuphine (From [facility]) Allergy (Severe, Verified 12/21/24 10:24) Anaphylaxis tramadol Adverse Reaction (Verified 12/21/24 10:24) itchy HPI Comments Details: Mag is back in my office after diagnostic sacroiliac joint injection on the right. She reports excellent pain relief. She reports 3 days of 100 % pain improvement. She does not feel pain in the back at this time. We provided the patient's sacroiliac joint belt. I recommended her to see me in 1 month. We discussed sacroiliac joint fusion Nevro. 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 She had MRI of the lumbar spine and she also had recently abdominal/pelvic CT scan which did not demonstrate any red flags on the images of the pelvis. She tried physical therapy multiple times with minimal results. NSAIDs are contraindicated for this patient because of history of gastric bypass. Prior: Results of femoral nerve block: Patient did not show up immediately after the procedure she supposed to go see me 2 days after the injection however she presenting today and she reports excellent pain relief in the right joint. She continues to endorse very good mobility and minimal right knee pain. We discussed possibility of treating her pain with peripheral nerve stimulation. I offered her curonix PNS versus sprint PNS. She is very concerned about the device which could potentially be dislodged. She would like to consider Curonix PNS . I will schedule her for this procedure as soon as she will provide us psychological evaluation from [facility]. Prior: I offered her to repeat diagnostic femoral nerve block this time without any sedation so the patient will be under observation immediately after the procedure and would tell us how does she feel with the pain in her knee. We also discussed possibility of treating her knee pain with total knee replacement. She stated that she lives alone and has no support and she will not be able to take care of herself if her knee would be replaced. I explained to her that there is some social network of visitor nurses and therapists who can come and help her at home. I also explained to her that she can not be sent to rehabilitation center for about 1 month to take care of herself. She is afraid to lose her subsidized housing and therefore is not very eager to go for total knee replacement. Eventually she stated that she does not want part of her bones to be cut off to replace it with the prosthesis. I also offered her PRP injection into her knees as some procedure which would not require significant social support to perform with. Patient refused she says that she does not have such amount of money to cover the cost of the procedure. Today she denied discomfort in the groin on physical exam. She states that her most of the concerns is her knee pains and lower back pain. I suggested that we concentrate on the knee pain since it is most severe for her. Prior: complains on pain in the lower back with radiation of the pain into bilateral lower extremities and sensation of the spasticity in bilateral feet and bilateral toes. lying down aggravates her back pain the most. Flexing forward and flexing backwards aggravate her pain however flexing forward aggravate her pain more than flexing backwards. She reports that she fell from the ladder on for back in December of 2023, however her pain did not start then. In May 05, 2024 she reported severe pain and she went to emergency room. She admits that heat alleviates her pain and ice application make her pain worse. She was prescribed gabapentin and cyclobenzaprine to treat her pain. She is also taking Tylenol. She reports minimal help with this medications. She can not take NSAIDs because she had gastric bypass. Her past medical history significant for hypo thyroidism pseudotumor cerebri she is under care of Dr. Banda from [facility]. Past surgical history significant for history of gastric bypass. She denies smoking cigarettes she denies drinking alcohol she denies drinking soda and caffeinated beverages and she denies recreational drugs. [facility] Medical History Diverticulosis of colon Right shoulder injury Kidney calculi Nausea & vomiting Bronchitis Close exposure to 2019-nCoV Strain of tendon of medial thigh muscle Easy bruising Hoarseness Dizziness Clostridium difficile infection Osteoarthritis of right knee Sciatica, left side Osteoarthritis of left knee Bilateral hip pain Urinary retention Painful urination Sleep apnea Somnolence, daytime Obesity (BMI 30-39.9) Migraine Syncope Pseudotumor cerebri Crystal arthropathy Kidney tumor COVID-19 vaccine administered Thyroid disease Colon polyp Bronchial asthma Acid reflux Surgical History Status post gastric bypass for obesity Status post excision of lipoma (09/10/23) History of esophagogastroduodenoscopy (EGD) History of surgery on wrist History of hysterectomy Previous section Hx laparoscopic cholecystectomy Hx of colonoscopy Family History Father Heart disease History of open heart surgery Mother Heart disease Social History Household Members: None Household Members Other:: alone Are you a primary primary care nurse practitioner to a significant other at home: No Do you presently have visiting nurse or other home services: No Alcohol intake: never Patient Tobacco Use Status: Former Tobacco user Tobacco use type: Cigarette service: No Current occupational status: disabled Review of Systems Const All systems reviewed & are unremarkable except as noted in HPI and below ENT Reports Normal hearing present Neuro Reports Normal hearing present, Denies Abnormal speech present, Denies confusion and Denies Sensory deficit (Neuro) Psych Denies confusion Physical Exam Vital Signs: Last Vital Signs Pulse 96 12/21/24 10:17 BP 123/76 12/21/24 10:17 Pulse Ox 99 12/21/24 10:17 Oxygen Delivery Method Room Air 12/21/24 10:17 BMI result Body Mass Index 28.9 Const General: no acute distress; No confusion Orientation/consciousness: patient oriented x3 and No confusion Eyes General: appearance normal, both eyes and all related structures Pupils: Equal, round and reactive pupils present EOM: EOMs intact bilaterally Neck Neck: Yes full ROM Chest Chest palpation & inspection: normal inspection of the chest Resp Effort & Inspection: normal respiratory effort, able to speak in complete sentences, normal respiratory pattern, no audible wheezes and no cough Cardio Jugular venous distension: no JVD GI Inspection: Yes normal to inspection Back/Spine/Pelvis Other: Flexing forward aggravates her pain less than flexing backwards. Chapincito test is positive on the right, Gaenslen test is positive on the right, pelvic compression and pelvic distraction tests both positive on the right, yeoman's test is positive on the right. Neuro General: patient oriented x3, gait normal and No confusion Cranial nerves: Yes CN's II-XII intact bilaterally, Yes Equal, round and reactive pupils present, Yes Normal hearing present and Yes Ability to bilaterally elevate shoulders present Speech: No Abnormal speech present Gait exam (Neuro): Normal gait present Motor exam (neuro): 5/5 motor strength present throughout Sensory Exam: No Sensory deficit (Neuro) Extrem Other: On examination of the bilateral knees the deformities are observable and there is tenderness on palpation on anterior surface of bilateral knees. General: No pedal edema Psych Speech and movement: Normal speech and movement present Affect: normal affect Attitude: cooperative Thought process: Normal thought process present Thought content: Normal thought content present Insight: Good insight present (Psych) Judgement: Good judgement present (Psych) Results Reviewed Results Reviewed: MR LUMBAR SPINE WITHOUT CONTRAST CLINICAL INFORMATION: Sacroiliitis, not elsewhere classified. COMPARISON: March 03, 2012. TECHNIQUE: MRI of the lumbar spine was obtained using routine sequences without contrast. FINDINGS: Last rib-bearing vertebra labeled T12. No bone marrow STIR signal abnormality. Multilevel marginal osteophyte formation and disc desiccation more conspicuous at T11-12. Focal hyperintense T2 signal in the posterior intervertebral disc L3-4 and L4-5 S1 likely annular fissure. There is a 1 mm anterolisthesis L3-4 and L1-2 levels. Conus medullaris ends at inferior endplate of T12 with normal signal. T11-12: No disc herniation. No neuroforamina stenosis. Facet joint and ligamentum flavum hypertrophy. T12-L1: Broad-based disc bulging. Facet joint hypertrophy. No compression upon neural elements. L1-2: Broad-based disc bulging. Facet joint and ligamentum flavum hypertrophy. Reduced AP diameter of the thecal sac and the neural foramina. No compression upon neural elements. L2-3: Broad-based disc bulging. Facet joint and ligamentum flavum hypertrophy. Reduced AP diameter of the thecal sac and the neural foramina. No compression upon neural elements. L3-4: Central broad-based disc herniation. Facet joint and ligamentum flavum hypertrophy. Reduced AP diameter of the thecal sac encroaching the neural elements. Bilateral neuroforamina narrowing without compressing the exiting nerve roots. L4-5: Broad-based disc bulging. Facet joint and ligamentum flavum hypertrophy. Reduced AP diameter of the thecal sac encroaching the L5 nerve root on the lateral recesses. Bilateral neuroforamina narrowing encroaching the L4 exiting nerve roots. L5-S1: Broad-based disc bulging. Focal hyperintense T2 signal in the posterior right disc. Reduced AP diameter of the thecal sac encroaching the S1 nerve roots. No neuroforamina stenosis. No prevertebral compartment hematoma, mass or fluid collection. Multifocal hyperintense T2 cystic lesions in the parapelvic kidneys, bilaterally. IMPRESSION: Multilevel thoracolumbar spondylosis more conspicuous at L3-4 and L4-5 and L5-S1 levels resulting in central spinal canal stenosis encroaching the nerve roots on the lateral recesses. Parapelvic renal cysts, bilaterally. CT abdomen and pelvis without contrast Comparison: CT of the abdomen and pelvis from 08/24/2023 Findings: No consolidation of the imaged lung bases. Solid abdominal organs appear unchanged by noncontrast imaging. The gallbladder is surgically absent with metal artifacts. Postprocedural changes from gastric sleeve. No small bowel obstruction. Severe stool burden is present, including the cecum. Imaged appendix is within normal limits. Multiple diverticula are redemonstrated. Wall thickening of the sigmoid colon adjacent fluid is concerning for mild diverticulitis. No free intraperitoneal air. No drainable abscess by CT. Mild wall thickening of the urinary bladder is nonspecific. Mild fluid in the pelvis likely secondary to diverticulitis. The uterus is surgically absent. No adnexal soft tissue mass. Mild to moderate osteoarthritis both hips. Degenerative changes include [id number] facet arthropathy, particularly in the lower lumbar spine. Endplate sclerosis is again multifocal. Mild subcutaneous edema of the subcutaneous soft tissues, dependently. IMPRESSION: Mild diverticulitis, including sigmoid colon. No perforation or abscess formation at this time. This document has been electronically signed by: Destin Gibson MD on Assessment & Plan Assessment & Plan (1) Radiculopathy, lumbar region: Code(s): M54.16 - Radiculopathy, lumbar region Category: Medical (2) Disc degeneration, lumbar: Code(s): M51.369 - Other intervertebral disc degeneration, lumbar region without mention of lumbar back pain or lower extremity pain Category: Medical (3) Sacroiliitis: Code(s): M46.1 - Sacroiliitis, not elsewhere classified Category: Medical (4) Osteoarthritis of right knee: Code(s): M17.11 - Unilateral primary osteoarthritis, right knee Category: Medical (5) Right knee pain: Code(s): M25.561 - Pain in right knee Category: Medical (6) Chronic right sacroiliac joint pain: Code(s): M53.3 - Sacrococcygeal disorders, not elsewhere classified; G89.29 - Other chronic pain Category: Medical Plan Patient will continue home exercise program. 1. After evaluation of this patient's MRI there was moderate to minimal spinal canal stenosis however I do not believe that the magnitude of the stenosis can cause any urinary or pelvic organ problems. It is unlikely that this kind of stenosis causes axial lower back pain. I recently performed CT scan of the abdomen and pelvis did not demonstrate any red flags in the pelvic bones. Pa tient is contraindicated with steroids because of hypothyroidism. Patient can not take NSAIDs because of history of gastric bypass. She had multiple times physical therapy with minimal results. Diagnostic sacroiliac joint injection resulted in 100% pain improvement for 3 full days. We discussed today sacroiliac joint fusion. Sacroiliac joint belt was given to the patient. If in 1 month the patient will not be able to report significant pain improvement from sacroiliac joint belt I will schedule her for Nevro spinal cord stimulator fusion right away. 2. Diagnostic femoral nerve block resulted with very pro long and excellent pain relief in the right knee. She is interested in curonix PNS. She needs to go for psychological evaluation. After psychological evaluation is done we will s chedule her for the trial. Brochure was given to the patient from [facility].. 3. I will see this patient in 1 month and we will decide which pain generators she wants to address 1st. Patient Instructions: I here by testify that I spent 30 minutes in conversation with this patient as well as demonstrating her sacroiliac joint belt and explaining hygiene limitations as well as physical limitations with the device. I also took some time to organize this note, evaluate her prior records and diagnostic studies and plan her care. Coding Level of Care Code Est Pt Level 4 (59873) Diagnoses Radiculopathy, lumbar region M54.16 Disc degeneration, lumbar M51.369 Sacroiliitis M46.1 Osteoarthritis of right knee M17.11 Right knee pain M25.561 Chronic right sacroiliac joint pain M53.3; G89.29
--- OUTSIDE RECORDS SUMMARY | 2024-12-21 11:32 | XMS_ITS | Data Portability ---
Author Organization [facility] [employer] [place] [facility] Address [address] [place] [address] Care Team Providers Care Product Operations Associate Name Role Phone HIM CCA OTHER NAME, CUAUHTEMOC Primary Care Provider Assessment Encounter Date Assessment Date Assessment LastModified by Organization Details LastModified Time 08/31/2024 08/31/2024 Evaluation in th e field was performed by my hot stick worker colleague, as noted above, I provided [...] prior for knee pain VSS reported exam mid-backhaul driver to palpation #Acute on Chronic back pain uncomplicated at this time ketorlac 30mg IM x1 advised pt of relative contraindication to ketorlac IM for next 2-3 wks vkudesia Not available 09/22/2024 19:07:14 10/03/2024 10/03/2024 As noted, we wer e called to see this patient regarding concerns of Cough and cold symptoms. Evaluation in the field was performed by my hot stick worker colleague, as noted above, I provided [...] rapid flu (A+B) 2024 025 [facility], [address] [place] [address], [id number] 5 11:47:20 rapid SARS CoV 2 Ag, QL IA, respiratory specimen 2024 025 [facility], [address] [place] [address], [id number] 11:47:47 Referral None recorded. Procedures None recorded. Surgeries None recorded. Imaging None recorded. Medication Orders benzonatate 100 mg capsule 2024 025 [facility], [address] [place] [address], [id number], 5 05:01:37 benzonatate 100 mg capsule 2024 025 [facility], [address] [place] [address], [id number], 5 05:01:37 ketorolac 30 mg/mL injection solution 2024 025 zita [facility], [address] [place] [address], [id number], 18:37:59 ketorolac 30 mg/mL injection solution 2024 025 jeaneth [facility], [address], [place], [id number], 5 18:57:39 hydroxyzine HCl 25 mg tablet 2024 025 JUSTINA [facility], [address], [place], [id number], 5 19:17:38 Patient TargetsNo targets recorded. Patient InstructionsNo instructions recorded. Reason for Referral None Reported. Results Created Date Observation Date Name Description Value Unit Range Abnormal Flag Note LastModifiedBy Organization Detail LastModifiedTime 08/11/19 25 08/12/2024 URINE CULTU RE, UROLO GY RIAZ P urine culture, urology workup Final report Not Available [facility] ([facility]) [address] [facility], [place], [address], 08/12/2024 12:05:44 08/11/19 25 08/12/2024 URINE CULTU RE, UROLO GY RIAZ P result 1 COMMEN T No growt h in 36 - 48 hours . Not Available [facility] ([facility]) [address] [facility], [place], [address], 08/12/2024 12:05:44 Result Notes None recorded. Problems Name Problem SNOMED Code Status Onset Date Resolution Date Notes Provider Name and Address Organization Details Recorded Time Benign intracran ial hypertens ion 15898899 Active 2011 Loki Barajas MD [address] [facility],[address], [place], [address], [facility] 18:36:13 Mixed anxiety and depressiv e disorder 300127829 Active 2011 Loki Barajas MD [address] [facility],[address], [place], [address], [facility] 18:37:21 Hypertens wanda disorder 26770529 Active 2011 Loki Barajas MD [address] [place] [address],[address], [place], [address], [place] [facility], [facility] 18:36:41 Morbid obesity 188199764 Active 2011 Loki Barajas MD [address] [place] [address],[address], [place], [address], [place] - [employer] 18:36:22 Obstructi ve sleep apnea syndrome 13912746 Active 2012 Loki Barajas MD [address] [place] [address],[address], [place], [address], [employer], [facility] 18:36:34 Asthma 565998408 Active 2012 Loki Barajas MD [address] [place] [address],[address], [place], [address], [place] [employer], [facility] 18:37:24 History of adrenalec gerri 716967640608 106 Active 2012 Loki Barajas MD [address] [place] [address],[address], [place], [address], [employer], [facility] 18:37:15 Mixed conductiv e and sensorine ural hearing loss of right ear 864331360067 05 Active 2014 Mixed conductiv e and sensorine ural hearing loss, unilatera l, right ear, with unrestric peggy hearing on the contralat eral side; Note: Date Diagnosed : 11/15/2014 5:00 PM (H90.71) Loki Barajas MD [address] [place] [address],[address], [place], [address], [employer] 18:37:04 History of bypass of stomach 702811613 Active 2015 Loki Barajas MD [address] [place] [address],[address], [place], [address], [place] [employer] 18:37:18 Migraine 08433754 Active 2017 Loki Barajas MD [address] [place] [address],[address], [place], [address], [employer] [facility] [employer], [facility] 18:36:38 Osteoporo sis 41280387 Active 2021 Loki Barajas MD [address] [place] [address],[address], [place], [address], [employer] [place] - [employer], [facility] 18:36:25 Vertigo 350448035 Active 2021 Loki Barajas MD [address] [place] [address],[address], [place], [address], [employer], [facility] 18:36:44 Dental caries 49009637 Active 2023 Loki Barajas MD [address] [place] [address],[address], [place], [address], [employer] [facility], [facility] 18:36:56 Osteoarth ritis of right knee joint 973137546934 100 Active 2024 Loki Barajas MD [address] [place] [address],[address], [place], [address], [employer], [facility] 18:36:50 Problem Notes None recorded. Medical Equipment None Reported. Allergies Allergen ID Allergen Name Allergen Category Reaction Reaction Severity Criticality Documentation Date Start Date Code Code System Note Provider Name and Address Organization Details Recorded Time 90506 Nubain medicatio n Not available Not available Not available 05/19/2024 7550 RxNorm Not Available [facility] 15:03:10 63298 tramadol medicatio n Not available Not available Not available 06/07/2024 00335 RxNorm Not Available [facility] 17:33:16 31945 nal[place]up[place] e medicatio n anaphylax is dyspnea Not available Not available [facility] 09/22/20242011 7238 RxNorm Loki Barajsa MD [address] [place] [address],[address], [place], [address], [employer], [facility] 18:34:01 Medications Name Sig Start Date Stop [...] % 99 % 16 /min 160.02 cm 29187.7 44 g 138/66 mm[Hg] Not Available [employer] 5 18:52:16 Date Recorded Body weight Heart rate Respiratory rate Oxygen saturation Oxygen saturation in Arterial blood by Pulse oximetry Body height Body temperature Systolic And Diastolic Provider Name and Address Organization Details Last Updated DateTime 5 96161.7 44 g 100 /min 18 /min 100 % 100 % 160.02 cm 98.7 [degF] 118/78 mm[Hg] Not Available [facility] 5 18:49:58 Date Recorded Oxygen saturation Oxygen saturation in Arterial blood by Pulse oximetry Heart rate Respiratory rate Body temperature Systolic And Diastolic Provider Name and Address Organization Details Last Updated DateTime 5 96 % 96 % 96 /min 18 /min 98.2 [degF] 120/70 mm[Hg] Not Available [employer] 5 18:32:37 Date Recorded Body temperature Oxygen saturation Oxygen saturation in Arterial blood by Pulse oximetry Heart rate Respiratory rate Systolic And Diastolic Provider Name and Address Organization Details Last Updated DateTime 5 97.6 [degF] 98 % 98 % 96 /min 16 /min 104/72 mm[Hg] Not Available [facility] 10:36:11 Date Recorded Respiratory rate Oxygen saturation Oxygen saturation in Arterial blood by Pulse oximetry Heart rate Body temperature Systolic And Diastolic Provider Name and Address Organization Details Last Updated DateTime 5 18 /min 99 % 99 % 98 /min 98 [degF] 132/84 mm[Hg] Not Available [facility] 17:41:46 Social History None recorded. Functional Status None recorded. Mental Status None recorded. Family History Nothing Reported. Medical History No medical history recorded. Gynecological HistoryNo gynecological history recorded. Obstetrics History GPAL:G 0 P 0 0 0 0 Past Encounters Encounter ID Performer Location Encounter Start Date Encounter Closed Date Diagnosis/Indication Diagnosis SNOMED-CT Code Diagnosis ICD10 Code Diagnosis IMO Codes Diagnosis Note [id number] Abran Hayward MD [facility] [address] [place] [phone] 01/31/2024 14:50:58 01/31/2024 16:04:33 [id number] Jameel Haddad MD [facility] [address] [place] [id number] 02/03/2024 19:16:36 02/03/2024 22:59:01 Viral upper respiratory tract infection 370305240 J06.9 S/p treatment for bronchitis with Azithromyc in. Negative COVID/flu test. Able to maintain PO hydration. Discussed red flag signs for which to seek higher level of care. [id number] Rick Hartmann MD [facility] [address] [place] [address] 02/24/2024 19:36:29 02/24/2024 20:10:20 Diarrhea 29539404 R19.7 As noted, we were called to see this patient regarding concerns of gastroente ritis symptoms. Evaluation in the field was performed by my hot stick worker colleague, as noted above, I provided [...] significan t hematochez ia, non-resolv ing diarrhea. [id number] Loki Barajas MD [facility] [address] [place] [phone] 03/30/2024 21:41:10 03/31/2024 15:17:43 Localized eruption of skin 473703201 R21 [id number] Cody Spicer MD [facility] [address] [place] [address] 05/04/2024 15:18:09 05/04/2024 20:57:19 Abdominal pain 76486613 R10.9 [id number] Christina Ashford MD [facility] [address] [place] [phone] 05/19/2024 12:56:41 05/19/2024 14:17:51 Osteoarthritis of multiple joints 974771093 M15.9 83639182 advised ice / wrapped in a towel [...] makes her feel Chronic pain syndrome 37 0811026 G89.4 75571 Explained to patient we cannot offer controlled [...] and pain management and reviewed red flags [id number] Trisha Bello MD [facility] [address] [place] [phone] 06/07/2024 18:25:16 06/07/2024 21:15:18 Pain 76421668 R52 301745 As noted, we were called to see this patient regarding concerns of acute on chronic back and joint pain. Evaluation in the field was performed by my hot stick worker colleague, as noted above, I provided [...] changes to consciousn ess, chest pain, dyspnea. [id number] Trudy Calderon MD [facility] [address] [place] [phone] 06/16/2024 20:51:22 06/18/2024 23:49:55 Osteoarthritis of left knee joint 0537030994 55113 M17.12 7535586 [id number] Jameel Haddad MD [facility] ED Medical [address] [address] 08/10/2024 16:44:04 08/10/2024 20:30:05 Flank pain 526892338 R10.9 48201 Acute on chronic pain. Has urology appointmen t tomorrow for bladder testing. No bowel or bladder incontinen ce. U/A negative. Will send culture to lab. Chronic pain syndrome 37 2484093 G89.4 74643 Acute on chronic. Has hx of spinal [...] can use intermitte ntly during the week. [id number] JANA EMMANUEL MD [facility] Medical [address] [address] 08/24/2024 20:18:45 08/24/2024 22:21:01 Osteoarthritis of knee 552749996 M17.10 [id number] Natacha Dietrich MD [place] [phone] 08/31/2024 18:52:14 08/31/2024 21:32:40 Anxiety 36495181 F41.9 01113 Chronic pain 36443708 G8 9.29 [id number] VIDAL GREEN MD [address] [address] 09/16/2024 18:37:31 09/18/2024 09:19:40 Pain of bilateral knee regions 0881044382 80157 M25.561 M25.562 33977161 Evaluation in the field was performed by my hot stick worker colleague, as noted above, I provided [...] weakness, numbness, incontinen ce, worsening pain, fever [id number] Loki Barajas MD [facility] ED Medical [address] [address] 09/22/2024 18:32:34 09/23/2024 08:55:03 Backache 565117261 M54.9 [id number] Steven Lange MD [facility] ED Medical [address] [phone] 10/03/2024 10:36:07 10/03/2024 20:26:38 Viral disease 96245885 B34.9 [id number] Loki Barajas MD [facility] ED Medical [address] [address] 10/23/2024 17:41:41 10/23/2024 23:20:23 History of fall 350493596 Z91.81 0891618 Health Concerns Section Related Observation LastModified by Organization Detai ls LastModified Time None Recorded Concern Status LastModified by Organization Details LastModified Time None Recorded Advance Directives Directive None Recorded Payers Insurance Date Sequence Insurance Name Policy Number Policy Schrader Covered Member ID Schrader Member ID Guarantor Name 10/23/2024 1 [facility] - DOS ON OR AFTER 2022 - DUAL ELIGIBLE - SHELTER OPTIONS AND ONE CARE (MEDICARE REPLACEMENT/ADV ANTAGE - HMO) Mag Ayala [id number] Mag Ayala Notes Date Note Type Note Provider Name and Address Organization Details Recorded Time 08/31/2024 text/html ROS as noted in the [facility] CRC Nurse Triage Notes (Melanie Grubbs): Reason [...] signs of when to seek emergency care. Senior Technical Manager Organization Information for Serg Romero Business Legal Name: [employer]. Address: [address] [place], [place] [address] [address], Document Reviewer: Rich ENCARNACION No.: [id number] Senior Technical Manager POC Test Results from Serg Romero EKG (18:51:53) EKG test performed. Attachments uploaded as part of this test result can be found under Documents section. ...................... ...................... ...................... ...................... ...................... ...................... ......... Senior Technical Manager Note From Serg Roemro: SC1 sent to the above address for [...] but never received the call back. While KY1 was on scene the pt was calming [...] of breath, syncope, fever, altered mental status. [facility] cleared the call. WRR. ...................... ...................... ...................... ...................... ...................... ...................... ......... [facility] Consulted: Natacha Dietrich ...................... ...................... ...................... ...................... ...................... ...................... ......... Disposition: Mel Natacha Dietrich MD [address] [facility],[address], [place], [address], [employer] 08/31/2024 20:00:07 09/16/2024 text/html ROS as noted [...] ...................... ...................... ...................... ...................... ...................... ...................... ......... Senior Technical Manager Note From Clinton Minaya: 63 year [...] is slow to find a suitable solution. [facility] Medication Orders: ketorolac 30 mg/mL injection solution: Administered ...................... ...................... ...................... ...................... ...................... ...................... ......... [facility] Consulted: Vidal Green ...................... ...................... ...................... ...................... ...................... ...................... ......... Disposition: Mel VIDAL GREEN MD [address] [facility],[address], [place], [address], [facility] [employer] 09/16/2024 20:31:53 09/22/2024 text/html CRC Nurse Triage [...] shoulder. Patient reports she was seen by [facility] last week and had Toradol [...] ...................... ...................... ...................... ...................... ...................... ...................... ......... Senior Technical Manager Note From Tye Jasper: SC12 dispatched to the address listed above for the report of a female libertarian with back pain. Arrival on scene, patient [...] Patient reports that she was seen by [facility] last week for same issue and was given Toradol IM, patient reported improvement in pain with Toradol. Patient denies any recent trauma, denies fever/chills. [facility] noted no redness or bruising to the back. Patient vital signs obtained as noted. [facility] consulted, provided orders for 30mg Toradol IM. 30mg Toradol IM administered in right deltoid, six patient rights verified prior. [facility] advised that she would not be able to have more Toradol for another 2-3 weeks. Red flags discussed with patient, advised to call 911 if her condition worsens. SC12 Clear. [facility] Medication Orders: ketorolac 30 mg/mL injection solution: Administered ...................... ...................... ...................... ...................... ...................... ...................... ......... [facility] Consulted: Loki Barajas ...................... ...................... ...................... ...................... ...................... ...................... ......... Disposition: Fulfilled Loki Barajas MD [address] [place] [address],[address], [place], [address], [employer] 09/22/2024 23:01:57 10/03/2024 text/html ROS as noted in the [facility] CRC Nurse Triage Notes (Yudelka Cintron): Reason [...] signs of when to seek emergency care. Senior Technical Manager Organization Information for [employer] Business Legal Name: [employer]. Address: [address] [place] [address], Document Reviewer: Rich Pillai MD [place] No.: [id number] Senior Technical Manager POC Test Results from [employer] Rapid COVID antigen (10:35:22) COVID: - Attachments uploaded as part of this test result can be found under Documents section. Rapid influenza antigen (10:35:23) Flu: - Attachments uploaded as part of this test result can be found under Documents section. ...................... ...................... ...................... ...................... ...................... ...................... ......... Senior Technical Manager Note From Jasper Gamble: SC12 dispatched [...] COVID/FLU rapid performed and negative for all. [facility] consulted, provided orders for 200mg Benzonatate PO and advised he would send prescription to patient preferred pharmacy. 200mg Benzonatate PO administered with incident, six patient rights verified prior. Red flags discussed with patient, advised to call 911 if her condition worsens or if she experiences any life threatening symptoms. SC12 Clear. [facility] Lab Orders: rapid flu (A+B): Performed rapid SARS CoV 2 Ag, QL IA, respiratory specimen: Performed [facility] Medication Orders: benzonatate 100 mg capsule: Performed ...................... ...................... ...................... ...................... ...................... ...................... ......... [facility] Consulted: Steven Lange ...................... ...................... ...................... ...................... ...................... ...................... ......... Disposition: Fulfilled Steven Lange MD [address] [place] [address],[address], [place], [address], [employer] 10/03/2024 11:50:42 10/23/2024 text/html CRC Nurse Triage [...] ...................... ...................... ...................... ...................... ...................... ...................... ......... Senior Technical Manager Note From Nash Strange: Pt seen [...] shows no further findings. VS as noted. [facility] contacted and advised of Pt complaint, presentation and exam findings. [facility] has no further orders at this time. Pt has no further questions or concerns. Pt advised of red flags to be aware of and to seek medical attention should they arise. Call closed. ...................... ...................... ...................... ...................... ...................... ...................... ......... [facility] Consulted: Loki Barajas ...................... ...................... ...................... ...................... ...................... ...................... ......... Disposition: Fulfilled Loki Barajas MD [address] [facility],[address] [facility], [place], [address], [facility] 10/23/2024 22:29:24 OBGyn Episode No OBEpisode recorded.
--- OUTSIDE RECORDS SUMMARY | 2024-12-21 11:32 | XMS_ITS | Encounter Summary ---
Author Organization [employer] Address [address] [facility] [address] [place] [address] Care Team Providers Care Tilt Tray Driver Name Role Phone Name, Gregg DIAMOND Primary Care Provider [phone] Reason for Visit * Reason Onset Date Comments broken tooth to hold partial 02/28/2024 Encounter Details Date Type Department Care Team ([facility] st Contact Info) Description 02/28/2024 Telephone [facility] [address] [place] [address] Ayan Calvin, DMD [address] [place] [address] broken tooth to hold partial Social History [...] Description 01/02/2025 8:30 AM EST Office Visit [facility] [address] [place] [address] Heath Dougherty DDS [address] [place] [address] 03/06/2025 9:00 AM EST Office Visit [facility] [address] [place] [address] Name, MD Gregg [address] [place] [address] 07/02/2025 10:15 AM EDT Office Visit [facility] [address] [place] [address] Faye Mi documented as of this encounter Visit Diagnoses Not on filedocumented in this encounter Additional Health Concerns Assessment Noted Time PHQ-9 Depression Total Score: 0 09/01/19 24 10:42 AM EDT documented as of this encounter Care Teams Tilt Tray Driver Relationship Specialty Start Date End Date Name, MD Gregg [address] [place] [address] PCP - General Family Medicine 04/16/15 [facility] 05/23/24 documented as of this encounter
--- OUTSIDE RECORDS SUMMARY | 2024-12-21 11:32 | XMS_ITS | Encounter Summary ---
Author Organization [employer] Address [address] [place] [address] Care Team Providers Care Quality Assurance Supervisor Final Name Role Phone Name, Gregg DIAMOND Primary Care Provider [phone] Reason for Visit * Reason Comments Med Refill Encounter Details Date Type Department Care Team ([facility] st Contact Info) Description 11/16/2023 Refill [facility] [address] [place] [address] Yennifer Ramirez MD [address] [place] [address] Flu-like symptoms Social History Tobacco Use Types [...] Description 01/02/2025 8:30 AM EST Office Visit [facility] [address] [place] [address] Heath Dougherty DDS [address] [place] [address] 03/06/2025 9:00 AM EST Office Visit [facility] [address] [place] [phone] Name, MD Gregg [address] [place] [address] 07/02/2025 10:15 AM EDT Office Visit [facility] [address] [place] [address] Faye Mi documented as of this encounter Visit Diagnoses Diagnosis Flu-like symptoms documented in this encounter Additional Health Concerns Assessment Noted Time PHQ-9 Depression Total Score: 0 09/01/19 24 10:42 AM EDT documented as of this encounter Care Teams Quality Assurance Supervisor Final Relationship Specialty Start Date End Date Name, MD Gregg [address] [place] [address] PCP - General Family Medicine 04/16/15 [facility] 05/23/24 documented as of this encounter
--- OUTSIDE RECORDS SUMMARY | 2024-12-21 11:32 | XMS_ITS | Encounter Summary ---
Author Organization [employer] Address [address] [place] [address] Care Team Providers Care Cross Country/Track And Field Coach Name Role Phone Name, Gregg DIAMOND Primary Care Provider [phone] Reason for Visit * Reason Comments Med Refill Encounter Details Date Type Department Care Team ([facility] st Contact Info) Description 02/14/2024 Refill [facility] [address] [place] [address] Name, MD Gregg [address] [place] [address] Social History Tobacco Use Types Packs/Day Years [...] Description 01/02/2025 8:30 AM EST Office Visit [facility] [address] [place] [address] Heath Dougherty DDS [address] [place] [address] 03/06/2025 9:00 AM EST Office Visit [facility] [address] [place] [address] Name, MD Gregg [address] [place] [address] 07/02/2025 10:15 AM EDT Office Visit [facility] [address] [place] [address] Faye Mi documented as of this encounter Visit Diagnoses Not on filedocumented in this encounter Additional Health Concerns Assessment Noted Time PHQ-9 Depression Total Score: 0 09/01/19 24 10:42 AM EDT documented as of this encounter Care Teams Cross Country/Track And Field Coach Relationship Specialty Start Date End Date Name, MD Gregg [address] [place] [address] PCP - General Family Medicine 04/16/15 [facility] 05/23/24 documented as of this encounter
--- OUTSIDE RECORDS SUMMARY | 2024-12-21 11:32 | XMS_ITS | Clinical Summary ---
Author Organization [employer] Address [address] 7[address] [place] [address] Care Team Providers Care Tentering Machine Off Bearer Name Role Phone Name, Gregg DIAMOND Primary Care Provider [phone] Allergies Active Allergy Reactions Criticality Noted Date [...] is already in the process of seeing [facility] management [facility] Plan: Increase fluids, pain [...] range. Recent lab work not available contacted [place] [facility] for results. Will renew medications at [...] I will evaluate for congenital adrenal hyperplasia, Nardin syndrome, polycystic ovarian syndrome although that seems [...] 12/18/2024 1:30 PM EST Office Visit [facility] [address] [place] [address] Faye Mi Dental calculus (Primary Dx); Dental plaque 12/14/2024 Refill [facility] [address] [place] [address] Gregg Gandhi MD 12/08/2024 Telephone [facility] [address] [facility] [address] Gregg Gandhi MD 12/08/2024 Telephone [facility] [address] [facility] [address] Gregg Gandhi MD Durable Medical Equipment 12/01/2024 Telephone [facility] [address] [facility] [place] [address] Sweta Giraldo MA 12/01/2024 Telephone [facility] [address] [facility] [address] Sweta Giraldo MA dec recalls 11/14/2024 9:00 AM EDT Office Visit [facility] [address] [place] [address] Heath Dougherty DDS 11/07/2024 Telephone [facility] [address] [facility] [address] Heath Dougherty DDS 11/03/2024 Refill [facility] [address] [place] [address] Gregg Gandhi MD Osteoporosis, unspecified osteoporosis type, unspecified pathological fracture presence 10/26/2024 3:00 PM EDT Office Visit [facility] [address] [facility] [place] [address] Ayan Calvin, DMD 10/23/2024 Telephone [facility] [address] [place] [address] Ayan Calvin, DMD Dr. Calvin unable to use dentures 10/20/2024 Telephone [facility] [address] [place] [address] Gregg Gandhi MD Durable Medical Equipment 10/19/2024 9:00 AM EDT Office Visit [facility] [address] [place] [address] Ayan Calvin, DMD 10/18/2024 2:45 PM EDT Office Visit [facility] [address] [place] [address] Gregg Gandhi MD Obesity (BMI 30-39.9) (Primary Dx) 10/18/2024 Travel 09/28/2024 Results Follow-Up [facility] [address] [place] [address] Maura Taylor, BRIAN XR Clavicle Left 09/27/2024 Refill [facility] [address] [place] [address] Gregg Gandhi MD Osteoporosis, unspecified osteoporosis type, unspecified pathological fracture presence 09/26/2024 1:30 PM EDT Office Visit [address] [address] Nicole Dai NP Acute pain of left shoulder (Primary Dx) 09/26/2024 Travel 09/25/2024 Refill [facility] [address] [place] [address] Gregg Gandhi MD 09/25/2024 Telephone [facility] [address] [place] [address] Gregg Gandhi MD Nurse Triage 09/22/2024 Refill [facility] [address] [place] [address] Gregg Gandhi MD 09/20/2024 Refill [facility] [address] [place] [address] Gregg Gandhi MD Osteoporosis, unspecified osteoporosis type, [...] Description 01/02/2025 8:30 AM EST Office Visit [facility] [address] [place] [address] Heath Dougherty DDS [address] [place] [address] 03/06/2025 9:00 AM EST Office Visit [facility] [address] [place] [address] Name, MD Gregg [address] [place] [address] 07/02/2025 10:15 AM EDT Office Visit [facility] [address] [place] [address] Faye Mi Health Maintenance Due Date Last [...] PM EDT Narrative 09/26/2024 3:29 [place] [address] XRay Report Signed Patient: Mag Ayala MR#: [id number] 4 : 1960 Acct:[id number] Age/Sex: 63 / F ADM Date: 09/26/24 Loc: HO.HHCX Attending Dr: Nicole Dai CHRONIC CARE NURSE Ordering Physician: Nicole Dai NP Date of Service: 09/26/24 Procedure(s): XR clavicle LT Accession Number(s): [id number] cc: Nicole Dai CHRONIC CARE NURSE EXAMINATION: XR CLAVICLE LEFT HISTORY: pain COMPARISON: [...] 09/26/24 1526 DD/ 1420 TD/TT: 09/26/24 1450 Rn Recovery: Procedure Note Donotuseinterpreter, Image - 09/26/[address] [address] XRay Report Signed Patient: Riccardo AyalanMR#: [id number] 4 : 9Acct:[id number] Age/Sex: 63 / FADM Date: 09/26/24 Loc: HO.HHCX Attending Dr: Nicole Dai CHRONIC CARE NURSE Ordering Physician: Nicole Dai NP Date of Service: 09/26/24 Procedure(s): XR clavicle LT Accession Number(s): [id number] cc: Nicole Dai CHRONIC CARE NURSE EXAMINATION: XR CLAVICLE LEFT HISTORY: pain COMPARISON: [...] 09/26/24 1526 DD/ 1420 TD/TT: 09/26/24 1450 Rn Recovery: us Nicole Dai [place] [facility] XR PROCEDURES Final Result * BI Mammogram Screening Tomosynthesis Bilateral (04/20/2023 12:05 PM EST) Anatomical Region Laterality Modality Breast Bilateral Mammography 04/20/2023 12:0 5 PM EST Narrative 05/05/2023 8:29 AM EDT [address] [place] [address] Mammography Report Signed Patient: Mag Ayala MR#: [id number] 4 : 1960 Acct:[id number] Age/Sex: 62 / F ADM Date: 04/20/23 Loc: HO.MAMMO Attending Dr: Gregg Gandhi MD Ordering Physician: Gregg Gandhi MD Results: 1Negative Date of Service: 04/20/23 Follow Up: 1 Year From Orig inal Mammogram Procedure(s): MM tomosynthesis screening BI Accession Number(s): [id number] cc: Gregg Gandhi MD EXAMINATION: MM SCREENING [...] MD in OV> [address]38[address] DD/ 1205 TD/TT: Rn Recovery: Procedure Note Donotuseinterpreter, Image - 05/05/2023 [facility] [address] [place] [address] Mammography Report Signed Patient: Eulalia Ayala#: [id number] 4 : 9Acct:[id number] Age/Sex: 62 / FADM Date: 04/20/23 Loc: HO.MAMMO Attending Dr: Gregg Gandhi MD Ordering Physician: Gregg Gandhi MDResults: 1Negative Date of Service: 04/20/23Follow Up: 1 Year From Orig inal Mammogram Procedure(s): MM tomosynthesis screening BI Accession Number(s): [id number] cc: Gregg Gandhi MD EXAMINATION: MM SCREENING [...] MD in OV> 05/05/23824 DD/ 1205 TD/TT: Rn Recovery: us Gregg Gandhi MD IMG BI PROCEDURES [...] LDL-C. Darek MADISON et al. BOO. 2013;310(19): 4340-0167 (http://education.[employer].com/faq/RKS837) Non-HDL Cholesterol 125 <130 mg/dL (calc) [facility] Comment: For patients with diabetes plus 1 major ASCVD risk factor, treating to a non-HDL-C goal of <100 mg/dL (LDL-C of <70 mg/dL) is considered a therapeutic option. Triglycerides 80 <150 mg/dL [facility] 05/20/2020 9:32 AM EDT us Gregg Gandhi MD LAB BLOOD ORDERABLES Final Resul t [facility] [address] from Last 3 Months or Most Recently Relevant to Health Maintenance Insurance [facility] STANDARD [employer] LONG TERM OPTIONS (HMO D-SNP) [facility] Care Teams Tentering Machine Off Bearer Relationship Specialty Start Date End Date Name, MD Gregg [address] [place] [address] PCP - General Family Medicine 04/16/15 [facility] 05/23/24
--- OUTSIDE RECORDS SUMMARY | 2024-12-21 11:32 | XMS_ITS | Encounter Summary ---
Author Organization [employer] Address [address] [place] [address] Care Team Providers Care Photogrammetric Engineer Name Role Phone Name, Gregg DIAMOND Primary Care Provider [phone] Reason for Visit * Reason Comments Med Refill Encounter Details Date Type Department Care Team ([facility] st Contact Info) Description 12/14/2024 Refill [facility] [address] [place] [address] Name, MD Gregg [address] [place] [address] Social History Tobacco Use Types Packs/Day Years [...] Description 01/02/2025 8:30 AM EST Office Visit [facility] [address] [place] [address] Heath Dougherty DDS [address] [place] [address] 03/06/2025 9:00 AM EST Office Visit [facility] [address] [place] [address] Name, MD Gregg [address] [place] [address] 07/02/2025 10:15 AM EDT Office Visit [facility] [address] [place] [address] Faye Mi documented as of this encounter Visit Diagnoses Not on filedocumented in this encounter Additional Health Concerns Assessment Noted Time PHQ-9 Depression Total Score: 1 07/18/19 25 11:20 AM EDT documented as of this encounter Care Teams Photogrammetric Engineer Relationship Specialty Start Date End Date Name, MD Gregg [address] [place] [address] PCP - General Family Medicine 04/16/15 [facility] 05/23/24 documented as of this encounter
--- OUTSIDE RECORDS SUMMARY | 2024-12-21 11:33 | XMS_ITS | Data Portability ---
Author Organization [place] [facility], All[facility] Address [address] [address] Assessment No assessment recorded. Plan of Treatment [...] Address Organization Details Recorded Time Impacted cerumen 45958023 Active 2014 Disorders of external ear: Impacted cerumen; Note: Date Diagnosed : 11/12/2014 9:15 PM (380.4) Not Available [facility] 4 02:41:52 Unilatera l sensorine ural hearing loss with unrestric peggy hearing on the contralat eral side Active 2014 Sensorine ural HL, unilatera l; Note: Date Diagnosed : 11/12/2014 9:56 PM (389.15) Not Available [facility] 4 02:41:44 Infective otitis externa 47895915 Active 2014 Acute otitis externa; Note: Date Diagnosed : 11/12/2014 9:55 PM (380.10) Not Available [facility] 4 02:41:48 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 hearing on the contralat eral side Active 2014 Mixed hearing loss, unilatera l; Note: Date Diagnosed : 11/12/2014 9:56 PM (389.21) Not Available [facility] 4 02:41:46 Infective otitis externa of left ear 48112495021 96969 Active 2014 Other infective otitis externa, left ear; Note: Date Diagnosed : 11/15/2014 4:59 PM (H60.392) Not Available [facility] 4 02:41:47 Impacted cerumen in left ear 47946203287 41347 Active 2014 Impacted cerumen, left ear; Note: Date Diagnosed : 11/15/2014 4:59 PM (H61.22) Not Available [facility] 4 02:41:51 Mixed conductiv e and sensorine ural hearing loss of left ear 91779016310 107 Active 2014 Mixed conductiv e and sensorine ural hearing loss, unilatera l, left ear, with unrestric peggy hearing on the contralat eral side; Note: Date Diagnosed : 11/15/2014 5:00 PM (H90.72) Not Available [facility] 4 02:41:46 Mixed conductiv e and sensorine ural hearing loss of right ear 27962600422 105 Active 2014 Mixed conductiv e and sensorine ural hearing loss, unilatera l, right ear, with unrestric peggy hearing on the contralat eral side; Note: Date Diagnosed : 11/15/2014 5:00 PM (H90.71) Not Available [facility] 4 02:41:49 Sensorine ural hearing loss 47470276 Active 2014 Sensorine ural hearing loss, unilatera l, right ear, with unrestric peggy hearing on the contralat eral side; Note: Date Diagnosed : 5 1:13 PM (H90.41) Not Available [facility] 4 02:41:50 Impacted cerumen of bilateral ears 55546434527 48098 Active 2015 Impacted cerumen, bilateral ; Note: Date Diagnosed : 08/12/2015 12:36 PM (H61.23) Not Available [facility] 4 02:41:46 Itching of skin 220989533 Active 2016 Other pruritus; Note: Date Diagnosed : 04/10/2016 11:46 AM (L29.8) Not Available [facility] 4 02:41:47 Dysphonia 80603136 Active 2016 Dysphonia ; Note: Date Diagnosed : 05/13/2016 10:26 AM (R49.0) Not Available [facility] 4 02:41:43 Chronic pharyngit is 754750 Active 2016 Chronic sore throat; Note: Date Diagnosed : 05/13/2016 10:24 AM (J31.2) Not Available [facility] 4 02:41:44 Dizziness and giddiness 314390775 Active 2016 Dizziness and giddiness ; Note: Date Diagnosed : 08/17/2016 1:43 PM (R42) Not Available [facility] 4 02:41:51 Sensorine ural hearing loss of bilateral ears 111205674 Active 2016 Sensorine ural hearing loss, bilateral ; Note: Date Diagnosed : 7 4:52 PM (H90.3) Sensori neural hearing loss, bilateral ; Note: Date Diagnosed : 08/12/2015 11:37 AM (H90.3) ; Start Date : 6 Not Available [facility] 4 02:41:48 Otorrhea of right ear 44285462400 23850 Active 2020 Otorrhea, right ear; Note: Date Diagnosed : 04/15/2020 9:41 AM (H92.11) Not Available [facility] 4 02:41:49 Benign paroxysma l positiona l vertigo 238959806 Active 2020 Benign paroxysma l vertigo, left ear; Note: Date Diagnosed : 1 9:47 AM (H81.12) Not Available [facility] 4 02:41:53 Problem Notes None recorded. [...] by mouth 03/20 completed Medicati on ID: [id number] Du ration Value: 7 Brand Name: Augmenti n Send Method: E-Prescr ibed Sub s Allowed: subs OK Medic ationGen ericName : Augmenti n Not Available Not Available Not Available Qvar 80 mcg/actua tion Metered Aerosol oral inhaler 03/20 completed Medicati on ID: [id number] D uration Value: 30 Brand Name: Qlulu [...] mg tablet 03/21 completed Medicati on ID: [id number] D uration Value: 30 Reason: () Brand Name: briandajaneth nikhil Garcia d Method: E-Prescr ibed Sub s Allowed: subs OK Medic ationGen ericName : perphena maytene Not Available Not Available Not Available ipratropi um 0.5 mg-albute rol 3 mg (2.5 mg base)/3 mL nebulizat ion soln 03/20 completed Medicati on ID: [id number] D uration Value: 7 Brand Name: ipratrop [...] 2 drop 03/20 completed Medicati on ID: [id number] Du ration Value: 7 Prescri bed By Name: Josue johnson MD Brand Name: Maxidex Send Method: E-Prescr ibed Sub s Allowed: subs OK [facility] Not Available Not Available [...] ear drops 03/20 completed Medicati on ID: [id number] Br and Name: Debrox S end Method: [...] 3 drop 03/20 completed Medicati on ID: [id number] D uration Value: 10 Brand Name: Pred [...] mg tablet 03/21 completed Medicati on ID: [id number] D uration Value: 28 Reason: () Brand Name: oxycodon e-acetam inophen Send Method: E-Prescr ibed Sub s Allowed: subs OK Medic ationGen ericName : oxycodon e-acetam inophen Not Available Not Available Not Available ofloxacin 0.3 % ear drops Apply 5 drop into both ears twice a day 03/20 completed Medicati on ID: [id number] D uration Value: 7 Brand Name: ofloxaci n Send Method: E-Prescr ibed Sub s Allowed: subs OK [facility] : ofloxaci n Not Available Not [...] mg tablet 12/22 completed Medicati on ID: [id number] Re ason: () Brand Name: Klonopin Send Method: E-Prescr ibed Sub s Allowed: subs OK [facility] : Klonopin Not Available Not Available Not Available meclizine 25 mg tablet TAKE 1 TABLET BY MOUTH TWICE DAILY NEEDED active Not Available Not Available No t Available baclofen 10 mg tablet 2018 active Medicati on ID: [id number] D uration Value: 30 Brand Name: baclofen Send Method: E-Prescr ibed Sub s Allowed: subs OK Speci al Instruct ion: TAKE 1 TABLET TWICE DAILY Me dication GenericN galindo: baclofen Not Available Not Available Not Available doxepin 100 mg capsule 09/30 completed Medicati on ID: [id number] Re ason: () Brand Name: doxepin Send Method: E-Prescr ibed Sub s Allowed: subs OK [facility] : doxepin Not Available Not Available Not Available venlafaxi ne 37.5 mg tablet TAKE 1 TABLET BY MOUTH EVERYDAY AT NOON active Not Available Not Available No t Available oseltamiv ir 75 mg capsule TAKE 1 CAPSULE BY MOUTH TWICE DAILY FOR 5 DAYS 03/20 completed Not Available Not Available Not Available levothyro xine 125 mcg tablet 03/21 completed Medicati on ID: [id number] D uration Value: 30 Reason: () Brand [...] for pain 03/21 completed Medicati on ID: [id number] Re ason: () Brand Name: oxycodon e Send Method: E-Prescr ibed Sub s Allowed: subs OK Medic ationGen ericName : oxycodon e Not Available Not Available Not Available Advair Diskus 250 mcg-50 mcg/dose powder for inhalatio n INHALE 1 PUFF BY MOUTH TWICE DAILY active Not Available Not Available No t Available clotrimaz ole 1 % topical solution 03/20 completed Medicati on ID: [id number] P dain rubio By Name: Josue johnson [...] elayed release 03/20 completed Medicati on ID: [id number] D uration Value: 30 Brand Name: omeprazo le Send Method: E-Prescr ibed Sub s Allowed: subs OK Speci al Instruct ion: TAKE 1 CAPSULE BY MOUTH EVERY DAY 30 MINUTES TO 1 HOUR BEFORE MEALS Me dication GenericN galindo: omeprazo le Not Available Not Available Not Available Cortispor in 3.5 mg/g-10,0 00 unit/g-0. 5 % topical cream 12/22 completed Medicati on ID: [id number] Re ason: () Brand Name: Cortispo rin Send Method: E-Prescr ibed Sub s Allowed: subs OK Medic ationGen ericName : Cortispo rin Not Available Not Available Not Available hydroxyzi ne HCl 25 mg tablet TAKE 1 TABLET BY MOUTH THREE TIMES DAILY NEEDED FOR ANXIETY active Not Available Not Available No t Available topiramat e 200 mg tablet 03/20 completed Medicati on ID: [id number] D uration Value: 30 Brand Name: topirama [...] mg tablet 03/20 completed Medicati on ID: [id number] D uration Value: 20 Brand Name: ibuprofe [...] left ear 03/20 completed Medicati on ID: [id number] D uration Value: 7 Brand Name: Cortispo [...] drops,rigo pension 03/20 completed Medicati on ID: [id number] D uration Value: 14 Brand Name: TobraDex Send Method: E-Prescr ibed Sub s Allowed: subs OK Speci al Instruct ion: Instill 3 drops in the affect ear BID for 10 days Med icationG enericNa me: TobraDex Not Available Not Available Not Available Flovent HFA 220 mcg/actua tion aerosol inhaler 03/20 completed Medicati on ID: [id number] D uration Value: 60 Brand Name: Flovent [...] as directed 03/20 completed Medicati on ID: 577119 D uration Value: 7 Brand Name: DermOtic [...] mcg capsule 11/12 completed Medicati on ID: [id number] Re ason: () Brand Name: Tirosint Send [...] Updated DateTime 03/20/2024 160.02 cm 30.8 kg/m2 03332.07 g Natacha Childs [facility] 03/20/2024 13:01:51 Date Recorded Body height Body mass index (BMI) Body weight Provider Name and Address Organization Details Last Updated DateTime 08/14/2024 160.02 cm 31.9 kg/m2 03074.63 g Natacha Childs [facility] 08/14/2024 12:59:51 Social History None recorded. Functional Status None recorded. Mental Status None recorded. Family History Nothing Reported. Medical History No medical history recorded. Gynecological HistoryNo gynecological history recorded. Obstetrics History GPAL:G 0 P 0 0 0 0 Past Encounters Encounter ID Performer Location Encounter Start Date Encounter Closed Date Diagnosis/Indication Diagnosis SNOMED-CT Code Diagnosis ICD10 Code Diagnosis IMO Codes Diagnosis Note [id number] JOSUE SHEPHERD MD [facility] [address] [address] 03/20/2024 12:52:27 03/20/2024 13:16:19 Impacted cerumen of bilateral ears [id number] 426638 H61.23 She has very narrow canals and gets debris impacted against the TM bilaterall y. Cerumen removed and tolerated well. [id number] JOSUE SHEPHERD MD [facility] [address] [address] 08/14/2024 12:21:01 08/14/2024 13:07:51 Impacted cerumen of bilateral ears 3938728975 170699 H61.23 She has very narrow canals and [...] Schrader Member ID Guarantor Name 12/16/2024 1 [facility] - DOS ON OR AFTER 2022 - ASSISTED OPTIONS AND ONE CARE (MEDICARE REPLACEMENT/AD VANTAGE - PPO) Mag Ayala [id number] Mag Ayala 12/15/2024 1 [place] Mag Ayala [id number] Mag Ayala Notes Date Note Type Note Provider Name and Address Organization Details Recorded Time 03/20/2024 text/html Dizziness now and then, having some ear itching. JOSUE SHEPHERD MD [address] [place] [address], [phone], [place] [facility] 03/20/2024 17:18:34 08/14/2024 text/html 63-year-old female presents today for routine ear cleaning. She has chronic pruritus. Spinal stenosisKnee pain JOSUE SHEPHERD MD [address] [place] [address], [phone], [place] [facility] 08/15/2024 09:20:47 OBGyn Episode No OBEpisode recorded.
--- OUTSIDE RECORDS SUMMARY | 2024-12-21 11:33 | XMS_ITS | Encounter Summary ---
Author Organization [employer] Address [address] [facility] [address] 7[address] [place] [address] Care Team Providers Care Shredder/Granulator Operator Name Role Phone Name, Gregg DIAMOND Primary Care Provider [phone] Reason for Visit * Reason Onset Date Comments Appointment Request 05/24/2024 Encounter Details Date Type Department Care Team ([facility] Contact Info) Description 05/24/2024 Telephone [facility] [address] [place] [address] Name, MD Gregg 230 [place] [address] Appointment Request Social History Tobacco Use Types [...] the phone she will. Contact pt at [phone] documented in this encounter Plan of Treatment Upcoming Encounters Date Type Department Care Team (Late st Contact Info) Description 01/02/2025 8:30 AM EST Office Visit [facility] [address] [place] [address] Heath Dougherty DDS [address] [place] [address] 03/06/2025 9:00 AM EST Office Visit [facility] [address] [place] [address] Name, MD Gregg 230 [place] [address] 07/02/2025 10:15 AM EDT Office Visit [facility] [address] [place] [address] Faye Mi documented as of this encounter Visit Diagnoses Not on filedocumented in this encounter Additional Health Concerns Assessment Noted Time PHQ-9 Depression Total Score: 0 09/01/19 24 10:42 AM EDT documented as of this encounter Care Teams Shredder/Granulator Operator Relationship Specialty Start Date End Date Name, MD Gregg 230 [place] [address] PCP - General Family Medicine 04/16/15 [facility] 05/23/24 documented as of this encounter
--- OUTSIDE RECORDS SUMMARY | 2024-12-21 11:33 | XMS_ITS | Encounter Summary ---
Author Organization [employer] Address [address] [facility] [address] [facility] [address] 7t [place] [address] Care Team Providers Care Adult Literacy Instructor Name Role Phone Name, Gregg DIAMOND Primary Care Provider [phone] Reason for Visit * Reason Onset Date Comments Dr. Calvin unable to use dentures 10/23/2024 Encounter Details Date Type Department Care Team ([facility] Contact Info) Description 10/23/[address] [facility]ULT [facility] [address] [place] [address] Ayan Calvin, DMD [address] [place] [address] Dr. Calvin unable to use dentures Social [...] 8:30 AM EST Office Visit [facility] [address] [place] [address] Heath Dougherty DDS [address] [place] [address] 03/06/2025 9:00 AM EST Office Visit [facility] [address] [place] [address] Name, MD Gregg [address] [place] [address] 07/02/2025 10:15 AM EDT Office Visit [facility] [address] [facility] [place] [address] Faye Mi documented as of this encounter Visit Diagnoses Not on filedocumented in this encounter Additional Health Concerns Assessment Noted Time PHQ-9 Depression Total Score: 1 07/18/19 11:20 AM EDT documented as of this encounter Care Teams Adult Literacy Instructor Relationship Specialty Start Date End Date Name, MD Gregg [address] [place] [address] PCP - General Family Medicine 04/16/15 [facility] 05/23/24 documented as of this encounter
--- OUTSIDE RECORDS SUMMARY | 2024-12-21 11:33 | XMS_ITS | Encounter Summary ---
Author Organization [employer] Address [address] [facility] 7t [place] [address] Care Team Providers Care Scientific Publications Editor Name Role Phone Name, Gregg DIAMOND Primary Care Provider [phone] Reason for Visit * Reason Onset Date Comments PT1 07/27/2023 Encounter Details Date Type Department Care Team ([facility] st Contact Info) Description 07/27/2023 Telephone [facility] [address] [place] [address] Name, MD Gregg [address] [place] [address] PT1 Social History Tobacco Use Types Packs/Day [...] name: Dr. Carson Smith MD Facility Address: [address] [place] [address] [address], [facility], [address] Escort needed: Y/N: No Do you have a wheelchair: Y/N: No If yes- Manual or electric: Visits: 2-3 Next upcoming appt 08/03/23 documented in this encounter Plan of Treatment Upcoming Encounters Date Type Department Care Team (Late st Contact Info) Description 01/02/2025 8:30 AM EST Office Visit [facility] ADULT DENTAL [address] [place] [address] Heath Dougherty DDS [address] [place] [address] 03/06/2025 9:00 AM EST Office Visit [facility] MED[facility]INE [address] [place] [address] Name, MD Gregg [address] [place], [place] [phone] 07/02/2025 10:15 AM EDT Office Visit [facility] ADULT DENTAL [address] [place] [address] Faye Mi documented as of this encounter Visit Diagnoses Not on filedocumented in this encounter Additional Health Concerns Assessment Noted Time PHQ-9 Depression Total Score: 7 03/04/19 23 9:17 AM EST documented as of this encounter Care Teams Scientific Publications Editor Relationship Specialty Start Date End Date Name, MD Gregg [address] [place] [address] PCP - General Family Medicine 04/16/15 [facility] 05/23/24 documented as of this encounter
--- OUTSIDE RECORDS SUMMARY | 2024-12-21 11:33 | XMS_ITS | Encounter Summary ---
Author Organization [employer] Address [address] [address] [facility] [address] 7t [place] [address] Care Team Providers Care Design Eng Name Role Phone Name, Gregg DIAMOND Primary Care Provider [phone] Reason for Visit * Reason Onset Date Comments Appointment Request 04/18/2024 Encounter Details Date Type Department Care Team ([facility] st Contact Info) Description 04/18/2024 Telephone [facility] [address] [place] [address] Name, MD Gregg [address] [place] [address] Appointment Request Social History Tobacco Use Types [...] PCP. Pt states will be out of [place] from June 18- as she has an appointment with the oncologist on the and with the neurosurgeon on June 27. documented in this encounter Plan of Treatment Upcoming Encounters Date Type Department Care Team (Late st Contact Info) Description 01/02/2025 8:30 AM EST Office Visit [facility] [address] [place] [address] Heath Dougherty DDS [address] [place] [address] 03/06/2025 9:00 AM EST Office Visit [facility] [address] [place] [address] Name, MD Gregg [address] [place] [address] 07/02/2025 10:15 AM EDT Office Visit [facility] [address] [place] [address] Faye Mi documented as of this encounter Visit Diagnoses Not on filedocumented in this encounter Additional Health Concerns Assessment Noted Time PHQ-9 Depression Total Score: 0 09/01/19 24 10:42 AM EDT documented as of this encounter Care Teams Design Eng Relationship Specialty Start Date End Date Name, MD Gregg [address] [place] [address] PCP - General Family Medicine 04/16/15 [facility] 05/23/24 documented as of this encounter
--- OUTSIDE RECORDS SUMMARY | 2024-12-21 11:33 | XMS_ITS | Encounter Summary ---
Author Organization [employer] Address [address] [facility] 7t [place] [address] Care Team Providers Care Drill Rig Operator Helper Name Role Phone Name, Gregg DIAMOND Primary Care Provider [phone] Reason for Visit * Reason Onset Date Comments PT1 02/25/2023 Encounter Details Date Type Department Care Team ([facility] st Contact Info) Description 02/25/2023 Telephone [facility] 230 [place] [address] Name, MD Gregg 230 [place] [address] PT1 Social History Tobacco Use Types Packs/Day [...] - valid through 06/2023 [facility] neurology - [id number] authorized Dr Chakraborty - [id number] pending [facility] Gen Surg - [id number] authorized [facility] - [id number] authorized Renal & Trans - [id number] authorized ENT - [id number] pending [facility] medical office - [id number] pending * Telephone Encounter - Cameron Su - 02/25/2023 4:29 PM EST PT1 needed Date: N/A Time: N/A Visits: 2 or 3 monthly Address: [address] [facility] Facility: [facility] Cardiovascular Wheel Chair: No Conference Center Manager Needed: No PT1 needed Date: N/A Time: N/A Visits: 2 or 3 Monthly Address: [address] [facility] Facility: [facility] Neurology Wheel No Conference Center Manager Needed: No PT1 needed Date: N/A Time: N/A Visits: 2 or 3 Monthly Address: [address] [facility] Facility: Dr Chakraborty Wheel Chair: No Conference Center Manager Needed: No PT1 needed Date: N/A Time: N/A Visits: 2 or 3 Monthly Address: [address] [place] [address] dr LambertRafy [place] Facility: [facility] General Surgery Wheel Chair: No Conference Center Manager Needed: No PT1 needed Date: N/A Time: N/A Visits: 2 or 3 Monthly Address: [address] [place] [address] Facility: [facility] Wheel Chair: No Conference Center Manager Needed: No PT1 needed Date: N/A Time: N/A Visits: 2 or 3 monthly Address: [address] [facility] Facility: [facility] Wheel Chair: No Conference Center Manager Needed: No PT1 needed Date: N/A Time: N/A Visits: 2 or 3 monthly Address: [address] [facility] Facility: [facility] Wheel Chair: No Conference Center Manager Needed: No PT1 needed Date: N/A Time: N/A Visits: 2 or 3 Monthly Address: [address] [facility] [address] Cesia DESOUZA Facility: [facility] medical Office Wheel Chair: No Conference Center Manager Needed: No PT1 needed Date: N/A Time: N/A Visits: 2 or 3 Monthly Address: [address] [place] [address] Facility: [facility] Wheel Chair: No Conference Center Manager Needed: No documented in this encounter Plan of Treatment Upcoming Encounters Date Type Department Care Team (Late st Contact Info) Description 01/02/2025 8:30 AM EST Office Visit [facility]ULT D[facility] [address] [place] [address] Heath Dougherty DDS [address] [place] [address] 03/06/2025 9:00 AM EST Office Visit [facility] [address] [place] [address] Name, MD Gregg [address] [place] [address] 07/02/2025 10:15 AM EDT Office Visit [facility] [address] [place] [address] Faye Mi documented as of this encounter Visit Diagnoses Not on filedocumented in this encounter Additional Health Concerns Assessment Noted Time PHQ-9 Depression Total Score: 7 03/04/19 23 9:17 AM EST documented as of this encounter Care Teams Drill Rig Operator Helper Relationship Specialty Start Date End Date Name, MD Gregg [address] [place] [address] PCP - General Family Medicine 04/16/15 [facility] 05/23/24 documented as of this encounter
--- OUTSIDE RECORDS SUMMARY | 2024-12-21 11:33 | XMS_ITS | Encounter Summary ---
Author Organization [employer] Address [address] [facility] 7t [place] [address] Care Team Providers Care Snow Fence Erector Name Role Phone Name, Gregg DIAMOND Primary Care Provider [phone] Reason for Visit * Reason Onset Date Comments ER Follow-up 05/02/2024 Nurse Triage 05/02/2024 Encounter Details Date Type Department Care Team ([facility] st Contact Info) Description 05/02/2024 Telephone [facility] 230 [place] [address] Name, MD Gregg [address] [place] [address] ER Follow-up; Nurse Triage Social History Tobacco [...] of the rollator walker. TC placed to [facility] pharamcyregarding the fosamax. Lori states the [...] in June as she will leaving for [place] at the beginning of June Pt requesting a call from PCP. Floor Clerk found telehealth visit in PCP schedule. Pt [...] find out more information. TC placed to [facility] pharamcy regardingthe fosamax. Lori states the [...] She states that she went to the [facility] ED yesterday due to right leg pain and right knee isswollen. Pt. Was also having throbbing pain in left side of groin. [facility] ED did not find any blood clot in leg and Xray of left hip and pelvis-negative. ED is recommending referral to Studio Operations Engineer In Charge according to pt. Pt does not want [...] that she remembers. Pt. Needs referral to Studio Operations Engineer In Charge. Offered pt. Appt. Today but, pt. Only wants to speak to pcp and is requesting appt. With PCP only or call from PCP to discuss updates and needs. Please get back to pt. To let her know if any of these needs can be met Will send request to Clinical coordinators to get [facility] ED report from yesterday into pt. Chart. Multiple needs. * Telephone Encounter - Shubham Booth - 05/02/2024 10:20 AM EDT Patient calling to report ED visit on : Date: 05/01/2024 Hospital: [facility] Seen for: Knee pain , groin pain [...] Description 01/02/2025 8:30 AM EST Office Visit [facility] ADULT DENT[facility] [address] [place] [address] Heath Dougherty DDS [address] [place] [address] 03/06/2025 9:00 AM EST Office Visit [facility] MED[facility] [address] [place] [address] Name, MD Gregg [address] [place] [address] 07/02/2025 10:15 AM EDT Office Visit [facility] ADULT [facility] [address] [place] [address] Faye Mi documented as of this encounter Visit Diagnoses Not on filedocumented in this encounter Additional Health Concerns Assessment Noted Time PHQ-9 Depression Total Score: 0 09/01/19 24 10:42 AM EDT documented as of this encounter Care Teams Snow Fence Erector Relationship Specialty Start Date End Date Name, MD Gregg [address] [place] [address] PCP - General Family Medicine 04/16/15 [facility] 05/23/24 documented as of this encounter
--- OUTSIDE RECORDS SUMMARY | 2024-12-21 11:33 | XMS_ITS | Encounter Summary ---
Author Organization [employer] Address [address] [facility] [address] 7t [place] [address] Care Team Providers Care Graduate Recruiter Name Role Phone Name, Gregg DIAMOND Primary Care Provider [phone] Reason for Visit * Reason Comments Med Refill Encounter Details Date Type Department Care Team ([facility] st Contact Info) Description 07/13/2023 Refill [facility] [address] [place] [address] Ban Granados FNP [address] [place] [address] Social History Tobacco Use Types Packs/Day Years [...] the past 12 months, has t he [employer], oil or water [employer] threatened to shut off services in your [...] in two days to be able to pickle sorter in pharmacy. 07/13/23 documented in this encounter Plan of Treatment Upcoming Encounters Date Type Department Care Team (Late st Contact Info) Description 01/02/2025 8:30 AM EST Office Visit [facility] ADULT DENTAL [address] [place] [address] Heath Dougherty DDS [address] [place] [address] 03/06/2025 9:00 AM EST Office Visit [facility] MED[facility]INE [address] [place] [address] Name, MD Gregg [address] [place] [address] 07/02/2025 10:15 AM EDT Office Visit [facility] ADULT [facility] [address] [place] [address] Faye Mi documented as of this encounter Visit Diagnoses Not on filedocumented in this encounter Additional Health Concerns Assessment Noted Time PHQ-9 Depression Total Score: 7 03/04/19 23 9:17 AM EST documented as of this encounter Care Teams Graduate Recruiter Relationship Specialty Start Date End Date Gregg Gandhi MD [address] [place] [address] PCP - General Family Medicine 04/16/15 [facility] 05/23/24 documented as of this encounter
--- OUTSIDE RECORDS SUMMARY | 2024-12-21 11:33 | XMS_ITS | Encounter Summary ---
Author Organization [employer] Address [address] 7t [place] [address] Care Team Providers Care Acquisitions Librarian Name Role Phone Name, Gregg DIAMOND Primary Care Provider [phone] Encounter Details Date Type Department Care Team (Late st Contact Info) Description 05/24/2024 Telephone [facility] MED[facility]INE 230 [place], [place] [phone] Name, MD Gregg [address] [place] [address] Social History Tobacco Use Types Packs/Day Years [...] Description 01/02/2025 8:30 AM EST Office Visit [facility] ADULT DENTAL [address] [place] [address] Heath Dougherty DDS [address] [place] [address] 03/06/2025 9:00 AM EST Office Visit [facility] MED[facility]INE [address] [place] [address] Name, MD Gregg [address] [place] [address] 07/02/2025 10:15 AM EDT Office Visit [facility] ADULT DENT[facility] [address] [place] [address] Faye Mi documented as of this encounter Visit Diagnoses Not on filedocumented in this encounter Additional Health Concerns Assessment Noted Time PHQ-9 Depression Total Score: 0 09/01/19 24 10:42 AM EDT documented as of this encounter Care Teams Acquisitions Librarian Relationship Specialty Start Date End Date Name, MD Gregg [address] [place] [address] PCP - General Family Medicine 04/16/15 [facility] 05/23/24 documented as of this encounter
--- OUTSIDE RECORDS SUMMARY | 2024-12-21 11:33 | XMS_ITS | Encounter Summary ---
Author Organization [employer] Address [address] [facility] [address] [facility] [address] 7t [place] [address] Care Team Providers Care Operating Room Assistant Name Role Phone Name, Gregg DIAMOND Primary Care Provider [phone] Encounter Details Date Type Department Care Team (Late st Contact Info) Description 07/26/2024 Orders Only [facility] 230 [place], [place] [phone] Joann Angel NP 230 [place] [address] Obesity (BMI 30-39.9) (Primary Dx) Social History [...] Description 01/02/2025 8:30 AM EST Office Visit [facility] ADULT DENTAL [address] [place] [address] Heath Dougherty DDS 230 [place] [address] 03/06/2025 9:00 AM EST Office Visit [facility] [address] [place] [address] Gregg Gandhi MD [address] [place] [address] 07/02/2025 10:15 AM EDT Office Visit [facility] [address] [place] [address] Faye Mi documented as of this encounter Visit Diagnoses Diagnosis Obesity (BMI 30-39.9)- Primary documented in this encounter Additional Health Concerns Assessment Noted Time PHQ-9 Depression Total Score: 1 07/18/19 25 11:20 AM EDT documented as of this encounter Care Teams Operating Room Assistant Relationship Specialty Start Date End Date Gregg Gandhi MD 230 [place] [address] PCP - General Family Medicine 04/16/15 [facility] 05/23/24 documented as of this encounter
--- OUTSIDE RECORDS SUMMARY | 2024-12-21 11:33 | XMS_ITS | Encounter Summary ---
Author Organization [employer] Address [address] [facility] [address] [address] 7[address] [place] [address] Care Team Providers Care Stock Analyst Name Role Phone Name, Gregg DIAMOND Primary Care Provider [phone] Reason for Visit * Reason Onset Date Comments clarification of tx 08/09/2023 Encounter Details Date Type Department Care Team ([facility] st Contact Info) Description 08/09/2023 Telephone [facility] ADULT DENTAL [address] [place] [address] Ayan Calvin, DMD [address] [place] [address] clarification of tx Social History Tobacco Use [...] you to call her. She went to [facility] for RCT today but is looking [...] 01/02/2025 8:30 AM EST Office Visit [facility] ADULT DENTAL [address] [place] [address] Heath Dougherty DDS [address] [place] [address] 03/06/2025 9:00 AM EST Office Visit [facility] MEDICINE [address] [place] [address] Name, MD Gregg [address] [place] [address] 07/02/2025 10:15 AM EDT Office Visit [facility] ADULT DENTAL [address] [place] [address] Faye Mi documented as of this encounter Visit Diagnoses Not on filedocumented in this encounter Additional Health Concerns Assessment Noted Time PHQ-9 Depression Total Score: 7 03/04/19 23 9:17 AM EST documented as of this encounter Care Teams Stock Analyst Relationship Specialty Start Date End Date Name, MD Gregg 230 [place] [address] PCP - General Family Medicine 04/16/15 [facility] 05/23/24 documented as of this encounter
--- OUTSIDE RECORDS SUMMARY | 2024-12-21 11:33 | XMS_ITS | Encounter Summary ---
Author Organization [employer] Address [address] [facility] [address] 7t [place] [address] Care Team Providers Care Rd Scientist Name Role Phone Name, Gregg DIAMOND Primary Care Provider [phone] Reason for Visit * Reason Onset Date Comments Nurse Triage 05/04/2024 Encounter Details Date Type Department Care Team ([facility] st Contact Info) Description 05/04/2024 Telephone [facility] MEDICINE [address] [place] [address] Name, MD Gregg [address] [place] [address] Nurse Triage Social History Tobacco Use Types [...] information. Do see mention of hemorrhoids. No aerial photograph interpreter needed as this conventional mortgage underwriter speaks Polish. Call returned to Mag Ayala to triage [...] to perform UA. Pt requesting referral to Powerhouse Tender per recommendation from Sanitation Inspector. Pt advised will forward note to Provider [...] acuity questions The caller accepted this outcome. [phone] (pashto) pt states knows Chinese but there are some words she can't say or understand. Tc from pt stating visited the verifier today, and he told pt should ask her PCP for a referral for a prosthetic because pt has several purple veins in the anus. Pt states this hasn't happenedto her before. documented in this encounter Plan of Treatment Upcoming Encounters Date Type Department Care Team (Late st Contact Info) Description 01/02/2025 8:30 AM EST Office Visit [facility] ADULT DENTAL [address] [place] [address] Heath Dougherty DDS [address] [place] [address] 03/06/2025 9:00 AM EST Office Visit [facility] MEDICINE [address] [place] [address] Name, MD Gregg [address] [place] [address] 07/02/2025 10:15 AM EDT Office Visit [facility]ULT DENT[facility] [address] [facility] [place] [address] Faye Mi documented as of this encounter Visit Diagnoses Not on filedocumented in this encounter Additional Health Concerns Assessment Noted Time PHQ-9 Depression Total Score: 0 09/01/19 10:42 AM EDT documented as of this encounter Care Teams Rd Scientist Relationship Specialty Start Date End Date Name, MD Gregg [address] [facility] [place] [address] PCP - General Family Medicine 04/16/15 [facility] 05/23/24 documented as of this encounter
--- OUTSIDE RECORDS SUMMARY | 2024-12-21 11:33 | XMS_ITS | Encounter Summary ---
Author Organization [employer] Address [address] [facility] [address] 7t [place] [address] Care Team Providers Care Housekeeping Worker Name Role Phone Name, Gregg DIAMOND Primary Care Provider [phone] Reason for Visit * Reason Comments Med Refill Encounter Details Date Type Department Care Team ([facility] st Contact Info) Description 06/07/2024 Refill [facility] MED[facility]INE [address] [place] [address] Name, MD Gregg 230 [place] [address] Social History Tobacco Use Types Packs/Day Years [...] Description 01/02/2025 8:30 AM EST Office Visit [facility] ADULT DENTAL [address] [place] [address] Heath Dougherty DDS [address] [place] [address] 03/06/2025 9:00 AM EST Office Visit [facility] MEDICINE [address] [place] [address] Name, MD Gregg [address] [place] [address] 07/02/2025 10:15 AM EDT Office Visit [facility] ADULT DENTAL [address] [place] [address] Faye Mi documented as of this encounter Visit Diagnoses Not on filedocumented in this encounter Additional Health Concerns Assessment Noted Time PHQ-9 Depression Total Score: 0 09/01/19 24 10:42 AM EDT documented as of this encounter Care Teams Housekeeping Worker Relationship Specialty Start Date End Date Name, MD Gregg [address] [place] [address] PCP - General Family Medicine 04/16/15 [facility] 05/23/24 documented as of this encounter
--- OUTSIDE RECORDS SUMMARY | 2024-12-21 11:33 | XMS_ITS | Encounter Summary ---
Author Organization [employer] Address [address] [facility] [address] 7t [place] [address] Care Team Providers Care Dairy Manager Name Role Phone Name, Gregg DIAMOND Primary Care Provider [phone] Reason for Visit * Reason Comments Med Refill Encounter Details Date Type Department Care Team ([facility] st Contact Info) Description 08/03/[address] [facility] MED[facility]INE 230 [place] [address] Name, MD Gregg 230 [place] [address] Social History Tobacco Use Types Packs/Day Years [...] 01/02/2025 8:30 AM EST Office Visit [facility] ADULT DENTAL [address] [place] [address] Heath Dougherty DDS [address] [place] [address] 03/06/2025 9:00 AM EST Office [facility] MED[facility]INE [address] [place] [address] 239[address] Name, MD Gregg [address] [place] [address] 07/02/2025 10:15 AM EDT Office Visit [facility] ADULT DENTAL [address] [place] [address] Faye Mi documented as of this encounter Visit Diagnoses Not on filedocumented in this encounter Additional Health Concerns Assessment Noted Time PHQ-9 Depression Total Score: 7 03/04/19 23 9:17 AM EST documented as of this encounter Care Teams Dairy Manager Relationship Specialty Start Date End Date NameGregg MD [address] [place] [address]32 PCP - General Family Medicine 04/16/15 [facility] 05/23/24 documented as of this encounter
--- OUTSIDE RECORDS SUMMARY | 2024-12-21 11:33 | XMS_ITS | Encounter Summary ---
Author Organization [employer] Address [address] 7t [place] [address] Care Team Providers Care Gang Head Saw Operator Name Role Phone Name, Gregg DIAMOND Primary Care Provider [phone] Encounter Details Date Type Department Care Team (Late st Contact Info) Description 10/21/2023 Telephone [facility] ADULT DENTAL 230 [place] [address] Ayan Calvin, DMD 230 [place] [address] Social History Tobacco Use Types Packs/Day Years [...] Description 01/02/2025 8:30 AM EST Office Visit [facility] ADULT DENTAL [address] [place] [address] Heath Dougherty DDS 230 [place] [address] 03/06/2025 9:00 AM EST Office Visit [facility] MEDICINE [address] [place] [address] Name, MD Gregg [address] [place] [address] 07/02/2025 10:15 AM EDT Office Visit [facility] ADULT DENTAL [address] [place] [address] Faye Mi documented as of this encounter Visit Diagnoses Not on filedocumented in this encounter Additional Health Concerns Assessment Noted Time PHQ-9 Depression Total Score: 0 09/01/19 24 10:42 AM EDT documented as of this encounter Care Teams Gang Head Saw Operator Relationship Specialty Start Date End Date Name, MD Gregg 230 [place] [address] PCP - General Family Medicine 04/16/15 [facility] 05/23/24 documented as of this encounter
--- OUTSIDE RECORDS SUMMARY | 2024-12-21 11:33 | XMS_ITS | Encounter Summary ---
Author Organization [employer] Address [address] [address] 7t [place] [address] Care Team Providers Care Human Resources Officer Name Role Phone Name, Gregg DIAMOND Primary Care Provider [phone] Reason for Visit * Reason Onset Date Comments Nurse Triage 11/27/2022 Encounter Details Date Type Department Care Team ([facility] st Contact Info) Description 11/27/2022 Telephone [facility] MEDICINE 230 [place] [address] Name, MD Gregg 230 [place] [address] Nurse Triage Social History Tobacco Use Types [...] t he electric, gas, oil or water [employer] threatened to shut off services in your [...] caller accepted this outcome Does not need spanish interpreter/translator . documented in this encounter Plan of Treatment Upcoming Encounters Date Type Department Care Team (Late st Contact Info) Description 01/02/2025 8:30 AM EST Office Visit [facility] ADULT DENTAL [address] [place] [address] Heath Dougherty DDS 230 [place] [address] 03/06/2025 9:00 AM EST Office Visit [facility] MEDICINE [address] [place] [address] Name, MD Gregg [address] [place] [address] 07/02/2025 10:15 AM EDT Office Visit [facility] ADULT DENTAL [address] [place] [address] Faye Mi documented as of this encounter Visit Diagnoses Not on filedocumented in this encounter Additional Health Concerns Assessment Noted Time PHQ-9 Depression Total Score: 7 03/04/19 23 9:17 AM EST documented as of this encounter Care Teams Human Resources Officer Relationship Specialty Start Date End Date Name, MD Gregg [address] [place] [address] PCP - General Family Medicine 04/16/15 [facility] 05/23/24 documented as of this encounter
--- OUTSIDE RECORDS SUMMARY | 2024-12-21 11:33 | XMS_ITS | Encounter Summary ---
Author Organization [employer] Address [address] [facility] [address] 7t [place] [address] Care Team Providers Care Cane Flume Feeding Machine Operator Name Role Phone Name, Gregg DIAMOND Primary Care Provider [phone] Reason for Visit * Reason Onset Date Comments Request For Order(s) 07/30/2023 Encounter Details Date Type Department Care Team ([facility] st Contact Info) Description 07/30/2023 Telephone [facility] MEDICINE 230 [place] [address] Name, MD Gregg [address] [place] [address] Request For Order(s) Social History Tobacco Use [...] done. Please clarify Please contact pt at [phone] (No spanish interpreter needed) documented in this encounter Plan of Treatment Upcoming Encounters Date Type Department Care Team (Late st Contact Info) Description 01/02/2025 8:30 AM EST Office Visit [facility] ADULT DENTAL [address] [place] [address] eHath Dougherty DDS 230 [place] [address] 03/06/2025 9:00 AM EST Office Visit [facility] MEDICINE [address] [place] [address] Name, MD Gregg [address] [place] [address] 117[address] 07/02/2025 10:15 AM EDT Office Visit [facility] ADULT DENTAL [address] [place] [address] Faye Mi documented as of this encounter Visit Diagnoses Not on filedocumented in this encounter Additional Health Concerns Assessment Noted Time PHQ-9 Depression Total Score: 7 03/04/19 23 9:17 AM EST documented as of this encounter Care Teams Cane Flume Feeding Machine Operator Relationship Specialty Start Date End Date Name, MD Gregg [address] [place] [address] PCP - General Family Medicine 04/16/15 [facility] 05/23/24 documented as of this encounter
--- OUTSIDE RECORDS SUMMARY | 2024-12-21 11:33 | XMS_ITS | Encounter Summary ---
Author Organization [employer] Address [address] 7t [place] [address] Care Team Providers Care Conveyor Operator Name Role Phone Name, Gregg DIAMOND Primary Care Provider [phone] Reason for Visit * Reason Comments Med Change Request Encounter Details Date Type Department Care Team ([facility] Contact Info) Description 07/26/2024 Refill [facility]INE 230 [place] [address] Name, MD Gregg 230 [place] [address] Social History Tobacco Use Types Packs/Day Years [...] 01/02/2025 8:30 AM EST Office Visit [facility] ADULT DENTAL [address] [place] [address] Heath Dougherty DDS [address] [place] [address] 03/06/2025 9:00 AM EST Office Visit [facility] MED[facility]INE [address] [place] [address] 480[address] Name, MD Gregg [address] [place] [address] 07/02/2025 10:15 AM EDT Office Visit [facility] ADULT DENTAL [address] [place] [address] Faye Mi documented as of this encounter Visit Diagnoses Not on filedocumented in this encounter Additional Health Concerns Assessment Noted Time PHQ-9 Depression Total Score: 1 07/18/19 25 11:20 AM EDT documented as of this encounter Care Teams Conveyor Operator Relationship Specialty Start Date End Date Name, MD Gregg [address] [place] [address] PCP - General Family Medicine 04/16/15 [facility] 05/23/24 documented as of this encounter
--- OUTSIDE RECORDS SUMMARY | 2024-12-21 11:34 | XMS_ITS | Encounter Summary ---
Author Organization [employer] Address [address] [facility] 7t [place] [address] Care Team Providers Care Statistician Applied Name Role Phone Name, Gregg DIAMOND Primary Care Provider [phone] Encounter Details Date Type Department Care Team (Late st Contact Info) Description 01/14/2022 Abstract [facility] ADULT DENTAL [address] [place] [address] Dental, Provider, DDS Social History Tobacco Use [...] Description 01/02/2025 8:30 AM EST Office Visit [facility] ADULT DENTAL [address] [place] [address] 7[address] Heath Dougherty DDS [address] [place] [address] 03/06/2025 9:00 AM EST Office Visit [facility] MEDICINE [address] [place] [address]755 NameGregg MD [address] [place] [address] 07/02/2025 10:15 AM EDT Office Visit [facility] ADULT DENTAL [address] [place] [address] Mi, Faye documented as of this encounter [...] on filedocumented in this encounter Care Teams Statistician Applied Relationship Specialty Start Date End Date Name, MD Gregg [address] [place] [address]885 PCP - General Family Medicine 04/16/15 [facility] 05/23/24 documented as of this encounter
--- OUTSIDE RECORDS SUMMARY | 2024-12-21 11:34 | XMS_ITS | Encounter Summary ---
Author Organization [employer] Address [address] [facility] 7t [place] [address] Care Team Providers Care Sole Trimmer Name Role Phone Name, Gregg DIAMOND Primary Care Provider [phone] Reason for Visit * Reason Comments Med Refill Encounter Details Date Type Department Care Team ([facility] st Contact Info) Description 03/04/2022 Refill [facility] MEDICINE 230 [place] [address] Name, MD Gregg 230 [place] [address] Osteoporosis, unspecified osteoporosis type, unspecified pathological fracture [...] Description 01/02/2025 8:30 AM EST Office Visit [facility] ADULT DENTAL [address] [place] [address] Heath Dougherty DDS 230 [place] [address] 03/06/2025 9:00 AM EST Office Visit [facility] MEDICINE [address] [place] [address]95 NameGregg MD [address] [place] [address] 07/02/2025 10:15 AM EDT Office Visit [facility] ADULT DENTAL [address] [place] [address] 9[address] Faye Mi documented as of this encounter Visit Diagnoses Diagnosis Osteoporosis, unspecified osteoporosis type, unspecified pathological fracture presence documented in this encounter Additional Health Concerns Assessment Noted Time PHQ-9 Depression Total Score: 7 03/04/19 23 9:17 AM EST documented as of this encounter Care Teams Sole Trimmer Relationship Specialty Start Date End Date Name, MD Gregg [address] [place] [address]73 PCP - General Family Medicine 04/16/15 [facility] 05/23/24 documented as of this encounter
--- OUTSIDE RECORDS SUMMARY | 2024-12-21 11:34 | XMS_ITS | Encounter Summary ---
Author Organization [employer] Address [address] [facility] [address] 7t [place] [address] Care Team Providers Care Spa Manager Name Role Phone Name, Gregg DIAMOND Primary Care Provider [phone] Reason for Visit * Reason Onset Date Comments Dr. Marixa chatman back from lab?? 08/31/2024 Encounter Details Date Type Department Care Team ([facility] Contact Info) Description 08/31/2024 Telephone [facility] ADULT DENTAL 230 [place] [address] Ayan Calvin, DMD [address] [place] [address] Dr. Marixa chatman back from lab?? Social [...] Sent to both provider and front office spec * Telephone Encounter - Nataliia Jalloh - [...] delivery. Also message sent to front office spec documented in this encounter Plan of Treatment Upcoming Encounters Date Type Department Care Team (Late st Contact Info) Description 01/02/2025 8:30 AM EST Office Visit [facility] ADULT DENTAL 230 [place] [address] Heath Dougherty DDS [address] [place] [address] 03/06/2025 9:00 AM EST Office Visit [facility] MEDICINE 230 [place] [address] Name, [place] [address] 07/02/2025 10:15 AM EDT Office Visit [facility] ADULT DENTAL 230 [place] [address] Faye Mi documented as of this encounter Visit Diagnoses Not on filedocumented in this encounter Additional Health Concerns Assessment Noted Time PHQ-9 Depression Total Score: 1 07/18/19 11:20 AM EDT documented as of this encounter Care Teams Spa Manager Relationship Specialty Start Date End Date Name, [place] [address] PCP - General Family Medicine 04/16/15 [facility] 05/23/24 documented as of this encounter
--- OUTSIDE RECORDS SUMMARY | 2024-12-21 11:34 | XMS_ITS | Encounter Summary ---
Author Organization [employer] Address [address] [facility] 7t [place] [address] Care Team Providers Care Lsw Name Role Phone Name, Gregg DIAMOND Primary Care Provider [phone] Reason for Visit * Reason Comments Med Refill Encounter Details Date Type Department Care Team ( st Contact Info) Description 10/06/2022 Refill [facility] MEDICINE 230 [place] [address] Name, MD Gregg 230 [place] [address] Osteoporosis, unspecified osteoporosis type, unspecified pathological fracture [...] Office Visit [facility] ADULT DENTAL [address] [place] [address] Heath Dougherty DDS [address] [place] [address] 03/06/2025 9:00 AM EST Office Visit [facility] MEDICINE 230 [place] [address] Name, [place] [address] 07/02/2025 10:15 AM EDT Office Visit [facility] ADULT DENTAL 230 [place] [address] Faye Mi documented as of this encounter Visit Diagnoses Diagnosis Osteoporosis, unspecified osteoporosis type, unspecified pathological fracture presence documented in this encounter Additional Health Concerns Assessment Noted Time PHQ-9 Depression Total Score: 7 03/04/19 23 9:17 AM EST documented as of this encounter Care Teams Lsw Relationship Specialty Start Date End Date Name, [place] [address] PCP - General Family Medicine 04/16/15 [facility] 05/23/24 documented as of this encounter
--- OUTSIDE RECORDS SUMMARY | 2024-12-21 11:34 | XMS_ITS | Encounter Summary ---
Author Organization [employer] Address 75 [facility] 7t [place] [address] Care Team Providers Care Sql Ssrs Developer Name Role Phone Name, Gregg DIAMOND Primary Care Provider Encounter Details Date Type Department Care Team (Latest Contact Info) Description 09/27/[address] [facility] CONVERSIONS Dental, Provider, DDS Social [...] AM EST Office Visit [facility] ADULT DENTAL [address] [place] [address] Heath Dougherty DDS [address] [place] [address] 03/06/2025 9:00 AM EST Office Visit [facility] MEDICINE [address] [place] [address] 14117 Name, MD Gregg [address] [place] [address] 07/02/2025 10:15 AM EDT Office Visit [facility] ADULT DENTAL [address] [place] [address] Faye Mi documented as of this encounter Visit Diagnoses Not on filedocumented in this encounter Care Teams Sql Ssrs Developer Relationship Specialty Start Date End Date Name, MD Gregg 230 [place] [address] PCP - General Family Medicine 04/16/15 [facility] 05/23/24 documented as of this encounter
--- OUTSIDE RECORDS SUMMARY | 2024-12-21 11:34 | XMS_ITS | Encounter Summary ---
Author Organization [employer] Address [address] [facility] [address] 7t [place] [address] Care Team Providers Care Row Boss Hoeing Name Role Phone Name, Gregg DIAMOND Primary Care Provider [phone] Reason for Visit * Reason Onset Date Comments Durable Medical Equipment 12/08/2024 Encounter Details Date Type Department Care Team ([facility] st Contact Info) Description 12/08/2024 Telephone [facility] MEDICINE 230 [place] [address] Name, MD Gregg 230 [place] [address] Durable Medical Equipment Social History Tobacco Use [...] * Telephone Encounter - Valentina Beltran - 12/19/2024 3:08 PM EST DME pending with provider * Telephone Encounter - Gregg Orta - 12/14/2024 3:11 PM EDT Tc from pt calling back regarding prior message. Any questions contact pt at [phone] * Telephone Encounter - Gregg Orta - 12/08/2024 9:33 AM EDT Tc from pt reporting that the shower chair has broke and will need a new one to be sent to [facility]. Any questions contact pt at [phone] documented in this encounter Plan of Treatment Upcoming Encounters Date Type Department Care Team (Late st Contact Info) Description 01/02/2025 8:30 AM EST Office Visit [facility] ADULT DENTAL 230 [place] [address] Heath Dougherty DDS 230 [place] [address] 03/06/2025 9:00 AM EST Office Visit [facility] MEDICINE [address] [place] [address] Name, MD Gregg 230 [place] [address] 07/02/2025 10:15 AM EDT Office Visit [facility] ADULT DENTAL 230 [place] [address] Faye Mi documented as of this encounter Visit Diagnoses Not on filedocumented in this encounter Additional Health Concerns Assessment Noted Time PHQ-9 Depression Total Score: 1 07/18/19 11:20 AM EDT documented as of this encounter Care Teams Row Boss Hoeing Relationship Specialty Start Date End [place] [address] PCP - General Family Medicine 04/16/15 [facility] 05/23/24 documented as of this encounter
--- OUTSIDE RECORDS SUMMARY | 2024-12-21 11:34 | XMS_ITS | Encounter Summary ---
Author Organization [employer] Address 75 [facility] 7t [place] [address] Care Team Providers Care Saw Sharpener Name Role Phone Name, Gregg DIAMOND Primary Care Provider [phone] Reason for Visit * Reason Comments Med Refill Encounter Details Date Type Department Care Team ( st Contact Info) Description 10/14/2022 Refill [facility] MEDICINE 230 [place] [address] Name, MD Gregg 230 [place] [address] Osteoporosis, unspecified osteoporosis type, unspecified pathological fracture [...] Description 01/02/2025 8:30 AM EST Office Visit [facility] ADULT DENTAL 230 [place] [address] Heath Dougherty DDS 230 [place] [address] 03/06/2025 9:00 AM EST Office Visit [facility] MEDICINE [address] [place] [address] Name, [place] [address] 07/02/2025 10:15 AM EDT Office Visit [facility] ADULT DENTAL 230 [place] [address] Faye Mi documented as of this encounter Visit Diagnoses Diagnosis Osteoporosis, unspecified osteoporosis type, unspecified pathological fracture presence documented in this encounter Additional Health Concerns Assessment Noted Time PHQ-9 Depression Total Score: 7 03/04/19 23 9:17 AM EST documented as of this encounter Care Teams Saw Sharpener Relationship Specialty Start Date End Date Name, [place] [address] PCP - General Family Medicine 04/16/15 [facility] 05/23/24 documented as of this encounter
--- OUTSIDE RECORDS SUMMARY | 2024-12-21 11:34 | XMS_ITS | Encounter Summary ---
Author Organization [employer] Address 75 [facility] 7t [place] [address] Care Team Providers Care Apprentice Technician Name Role Phone Name, Gregg DIAMOND Primary Care Provider [phone] Encounter Details Date Type Department Care Team (Late Contact Info) Description 07/20/2022 Abstract [facility] MEDICINE [address] [place] [address] Name, MD Gregg [address] [place] [address] Social History Tobacco Use Types Packs/Day Years [...] Description 01/02/2025 8:30 AM EST Office Visit [facility] ADULT DENTAL [address] [place] [address] [phone] Heath Dougherty DDS 230 [place] [address] 03/06/2025 9:00 AM EST Office Visit [facility] MEDICINE [address] [place] [address] [place] [address] Name, MD Gregg [address] [facility] [place] [address] 07/02/2025 10:15 AM EDT Office Visit [facility] ADULT DENTAL [address] [facility] [place] [address] Faye Mi documented as of this encounter [...] documented as of this encounter Care Teams Apprentice Technician Relationship Specialty Start Date End Date [place] [address] PCP - General Family Medicine 04/16/15 [facility] 05/23/24 documented as of this encounter
--- OUTSIDE RECORDS SUMMARY | 2024-12-21 11:34 | XMS_ITS | Encounter Summary ---
Author Organization [employer] Address [address] [facility] 7t [place] [address] Care Team Providers Care Spinning Frame Changer Name Role Phone Name, Gregg DIAMOND Primary Care Provider [phone] Encounter Details Date Type Department Care Team (Latest Contact Info) Description 12/25/[address] [facility] ADULT D[facility] [address] [place] [phone] Heath Dougherty DDS [address] [place] [address] 03/06/2025 9:00 AM EST Office Visit [facility] MEDICINE [address] [place] [address] 75[address] Name, MD Gregg [address] [place] [address] 07/02/2025 10:15 AM EDT Office Visit [facility] ADULT DENTAL [address] [place] [address] Faye Mi documented as of this encounter Visit Diagnoses Not on filedocumented in this encounter Care Teams Spinning Frame Changer Relationship Specialty Start Date End Date Name, MD Gregg [address] [place] [address] PCP - General Family Medicine 04/16/15 [facility] 05/23/24 documented as of this encounter
--- OUTSIDE RECORDS SUMMARY | 2024-12-21 11:34 | XMS_ITS | Encounter Summary ---
Author Organization [employer] Address [address] [facility] 7t [place] [address] Care Team Providers Care Power Plant Operator Apprentice Name Role Phone Name, Gregg DIAMOND Primary Care Provider [phone] Reason for Visit * Reason Onset Date Comments Medication Question 09/04/2024 Encounter Details Date Type Department Care Team ([facility] Contact Info) Description 09/04/2024 Telephone [facility] MEDICINE [address] [place] [address] Name, MD Gregg [address] [place] [address] Medication Question Social History Tobacco Use Types [...] increase dosage of zepbound. Contact pt at [phone] for any questions. documented in this encounter Plan of Treatment Upcoming Encounters Date Type Department Care Team ([facility] st Contact Info) Description 01/02/2025 8:30 AM EST Office Visit [facility] ADULT DENTAL [address] [place] [address] eHath Dougherty DDS [address] [place] [address] 03/06/2025 9:00 AM EST Office Visit [facility] MEDICINE [address] [place] [address] Name, MD Gregg [address] [place] [phone] 07/02/2025 10:15 AM EDT Office Visit [facility] ADULT DENTAL [address] [place] [address] Faye Mi documented as of this encounter Visit Diagnoses Not on filedocumented in this encounter Additional Health Concerns Assessment Noted Time PHQ-9 Depression Total Score: 1 07/18/19 11:20 AM EDT documented as of this encounter Care Teams Power Plant Operator Apprentice Relationship Specialty Start Date End Date Name, MD Gregg [address] [place] [address] PCP - General Family Medicine 04/16/15 [facility] 05/23/24 documented as of this encounter
== END 2024-12-21 10:55 | disposition home or self-care (01) ==
PROVIDERS: PCP Internal Medicine Geriatric Medicine; Visit Provider Anesthesiology
DX: M54.16 Radiculopathy, lumbar region (principal); M51.369 Other intervertebral disc degeneration, lumbar region without mention of lumbar back pain or lower extremity pain; M46.1 Sacroiliitis, not elsewhere classified; G89.29 Other chronic pain; M17.11 Unilateral primary osteoarthritis, right knee; M53.3 Sacrococcygeal disorders, not elsewhere classified
CPT/HCPCS: 99214

== ENCOUNTER → 2024-12-21 10:01 | Outpatient (BNVA) | payer OTHER, SELFPAY | PROVIDERS: PCP Internal Medicine Geriatric Medicine; Visit Provider Anesthesiology | DX: M54.16 Radiculopathy, lumbar region (principal); M51.369 Other intervertebral disc degeneration, lumbar region without mention of lumbar back pain or lower extremity pain; M46.1 Sacroiliitis, not elsewhere classified; M17.11 Unilateral primary osteoarthritis, right knee; M25.561 Pain in right knee; M53.3 Sacrococcygeal disorders, not elsewhere classified; G89.29 Other chronic pain | CPT/HCPCS: 99212 ==

== ENCOUNTER 2024-12-22 17:28 | Emergency (ER) | payer OTHER, SELFPAY ==
--- OUTSIDE RECORDS SUMMARY | 2024-12-18 13:30 | XMS_ITS | Encounter Summary ---
Author Organization [employer] Address [address] [facility] [address] 7t [place] [address] Care Team Providers Care Car Painter Name Role Phone Name, Gregg DIAMOND Primary Care Provider [phone] Reason for Visit * Reason Comments Routine Cleaning Encounter Details Date Type Department Care Team ([facility] st Contact Info) Description 12/18/2024 1:30 PM EST Office Visit [facility] ADULT DENTAL [address] [place] [address] Faye Mi Dental calculus (Primary Dx); Dental [...] Timeout Time: 1339 (Dental Prophy Adult) Location: [facility] Tooth: Maxilla and Mandible Procedure: X-rays and Prophylaxis Verified the above with patient, administrative personal assistant, and provider. Confirmed via patient's chart, intraorally and by radiographs. Grocery Checker: not applicable Medical Hx: Vitals: Blood pressure [...] Faye Mi Billing provider: Ayan Calvin DMD [id number] - BITEWINGS - 2 RADIOGRAPHIC IMAGES (Completed) [...] patient including brushing technique and flossing. Recommendations: [place] two times daily, modified grigsby technique, Floss daily, Electric toothbrush, Soft bristle toothbrush, [place] Tongue, Anti-sensitivity toothpaste Recall Frequency: 6 mo NV: 6mrc Hygienist: Faye Mi RDH documented in this encounter Plan of Treatment Upcoming Encounters Date Type Department Care Team (Late st Contact Info) Description 01/02/2025 8:30 AM EST Office Visit [facility] ADULT DENTAL [address] [place] [address] Heath Dougherty DDS [address] [place] [address] 03/06/2025 9:00 AM EST Office Visit [facility] MEDICINE [address] [place] [address] Name, MD Gregg [address] [place] [address] 07/02/2025 10:15 AM EDT Office Visit [facility] ADULT DENTAL 230 [place] [address] Faye Mi documented as of this encounter [...] documented as of this encounter Care Teams Car Painter Relationship Specialty Start Date End Date Name, MD Gregg [address] [facility] [place] [address] PCP - General Family Medicine 04/16/15 [facility] 05/23/24 documented as of this encounter
--- NOTE | ~2024-12-22 | XR_ITS ---
CLINICAL HISTORY: CP 2 view chest x-ray Comparison: CR/SR - XR CHEST 2 VIEWS - 01/28/24 11:42 EST Findings: The lungs are clear. Heart size is normal. No acute fracture. Cholecystectomy clips. IMPRESSION: 1. No acute findings. This document has been electronically signed by: Kalyani Hayes MD on 12/22/2024 18:47:52
[2024-12-22 17:35] VITALS: BP 110/72; PULSE 106; O2SAT 98
[2024-12-22 18:07] VITALS: BP 111/62; PULSE 95; RESP 18; TEMP 36.2; O2SAT 99; BMI 30.1
--- NOTE | 2024-12-22 18:07 | ED.UPPEXIN ---
HPI - Extremity Injury (Upper) General Chief Complaint: Extremity Injury, Upper Stated Complaint: SHOULDER PAIN Time Seen by Provider: 12/22/24 19:23 History of Present Illness HPI narrative: Patient is a 64-year-old female presents today with having left shoulder pain that is been ongoing. Patient claims the pain is being followed by Orthopedics. An MRI is scheduled. What is new today is that patient is having some chest pain. The chest pains on and off for the last 3 days. There is no shortness of breath there is no diaphoresis associated with it. There is no fever. There is no coughing congestion. The pain is not change with position is not changed with exertion it is their lasted for few minutes and it goes away patient has no history diabetes, hypertension, high cholesterol, smoking, mi. no family history of coronary artery disease less than the age of 55. Patient from home. No travel history no history of blood clots. Did have the chronic pain to the shoulder. No swelling to the arm. No instrumentation to the arm. Not on hormone replacement. Related Data Home Medications ?Medication ?Instructions ?Recorded ?Confirmed doxepin 75 mg capsule 75 mg PO BEDTIME 11/22/19 08/03/24 estazolam 1 mg tablet 3 mg PO BEDTIME 06/06/20 08/03/24 alendronate 70 mg tablet 70 mg PO 06/03/22 08/03/24 cholecalciferol (vitamin D3) 25 25 mcg PO DAILY 06/03/22 08/03/24 mcg (1,000 unit) tablet levothyroxine 100 mcg tablet 100 mcg PO DAILY@0600 10/01/22 08/03/24 lidocaine 5 % topical patch 1 patch topical DAILY 10/01/22 08/03/24 magnesium oxide 400 mg (241.3 mg 400 mg PO DAILY@1200 10/01/22 08/03/24 magnesium) tablet omeprazole 40 mg capsule,delayed 40 mg PO DAILY@0610/01/22 08/03/24 release pyridoxine (vitamin B6) 100 mg 200 mg PO DAILY@1200 11/27/22 08/03/24 tablet venlafaxine 37.5 mg tablet mg PO 05/10/24 08/03/24 tirzepatide (weight loss) 10 mg subcut QWEEK 08/03/24 08/03/24 mg/0.5 mL subcutaneous pen injector (Zepbound) Previous Rx's ?Medication ?Instructions ?Recorded meclizine 25 mg tablet (Dramamine 25 mg PO TID PRN dizziness #20 tabs 12/19/20 Less Drowsy) cetirizine 10 mg tablet 10 mg PO DAILY PRN allergy 06/04/23 symptoms #30 tabs polyethylene glycol 3350 17 17 g PO DAILY #850 grams 08/26/23 gram/dose oral powder (Miralax) ibuprofen 800 mg tablet 800 mg PO Q8H PRN pain #30 tabs 09/10/23 albuterol sulfate 90 mcg/actuation 2 puff PO Q6H PRN for wheezing 30 11/01/23 aerosol inhaler (Ventolin HFA) days #18 grams acetaminophen 325 mg capsule 650 mg (2 x 325 mg) PO Q6H PRN 12/17/23 (Tylenol) pain #21 caps cyclobenzaprine 10 mg tablet 10 mg PO Q8H #20 tabs 05/05/24 albuterol sulfate 2.5 mg/3 mL 2.5 mg (3 mL) inhalation Q4H PRN 08/22/24 (0.083 %) solution for nebulization shortness of breath or wheezing #180 mL fluticasone 250 mcg-salmeterol 50 1 ea PO BID #60 ea 10/27/24 mcg/dose blistr powdr for inhalation Allergies Allergy/AdvReac Type Severity Reaction Status Date / Time nalbuphine (From Nubain) Allergy Severe Anaphylaxis Verified 12/22/24 18:11 tramadol AdvReac itchy Verified 12/22/24 18:11 Review of Systems Review of Systems: Positive pain to the shoulder Positive chest pain Yes all other systems are reviewed and are negative [facility] Past Medical History Attestation statement: The following information was validated with the patient. Medical History Diverticulosis of colon Right shoulder injury Kidney calculi Nausea & vomiting Bronchitis Close exposure to 2019-nCoV Strain of tendon of medial thigh muscle Easy bruising Hoarseness Dizziness Clostridium difficile infection Osteoarthritis of right knee Sciatica, left side Osteoarthritis of left knee Bilateral hip pain Urinary retention Painful urination Sleep apnea Somnolence, daytime Obesity (BMI 30-39.9) Migraine Syncope Pseudotumor cerebri Crystal arthropathy Kidney tumor COVID-19 vaccine administered Thyroid disease Colon polyp Bronchial asthma Acid reflux Surgical History Status post gastric bypass for obesity Status post excision of lipoma (09/10/23) History of esophagogastroduodenoscopy (EGD) History of surgery on wrist History of hysterectomy Previous section Hx laparoscopic cholecystectomy Hx of colonoscopy Family History Family History Father Heart disease History of open heart surgery Mother Heart disease Social History Social History Household Members: None Household Members Other:: alone Are you a primary rn homecare to a significant other at home: No Do you presently have visiting nurse or other home services: No Alcohol intake: never Patient Tobacco Use Status: Former Tobacco user Tobacco use type: Cigarette Smoked in Last 30 Days: No Use of substances other than those prescribed or required for medical reasons: No Advance Directives: No Advance Directives Information Provided: No service: No Current occupational status: disabled Physical Exam Exam: Exam: Appearance: Alert. Oriented X3. No acute distress. Eyes: Pupils equal, round and reactive to light. ENT: Pharynx normal. Neck: Normal inspection. Neck supple. No lymph nodes noted. No crepitus CVS: Normal heart rate and rhythm. Pulses normal. Normal S1 and S2 Respiratory: No respiratory distress. Breath sounds normal. No Wheezing. No rales Abdomen: Soft and nontender. No rigidity. No distention. good BS x4 Skin: Skin warm and dry. Normal skin color. Normal skin turgor. Extremities: No lower extremity edema. Neurovascular intact to all extremities. No Lacerations. No Rash. Limited range of motion to the left shoulder. There is no gross swelling noted. Sensation over the axillary median radial and ulnar nerves intact. Movement of the elbow intact movements the risks intact there is no anatomical snuffbox tenderness there is good movement of the digits . There is good opposition of the thumb. Skin is intact. Neuro: Oriented X 3. No motor deficit. No sensory deficit. Moving all extermities. No slurred speech Vital Signs: Vital Signs: Last Vital Signs Temp 97.2 F 12/22/24 18:07 Pulse 88 12/22/24 19:29 Resp 18 12/22/24 19:29 BP 113/76 12/22/24 19:29 Pulse Ox 98 12/22/24 19:29 O2 Del Method Room Air 12/22/24 19:29 BMI result Body Mass Index 30.1 Course Course Course Narrative: This is an RME: Additional HPI, ROS, PE not included below will be deferred to primary provider. RME assessment and note performed by: Mary Lara PA-C This is a 68-ipzc-mtc-female, GERD, mild intermittent asthma, benign renal tumor, migraines, hypothyroidism, diverticulosis, and hx of gastric bypass, who presents to the ER with a complaint of worsening chronic left shoulder pain. Reports that she fell while in [place] on Nov 15. Reports that she also has had chest pain for the last 3 days, no CP now. Reporting tiredness and dizziness. Plan: Labs, ekg, xray, further er eval needed Medications Administered Discontinued Medications Generic Name Dose Route Start Last Admin Trade Name Freq PRN Reason Stop Dose Admin Ibuprofen 400 mg 12/22/24 20:23 12/22/24 20:30 Ibuprofen 400 Mg Tablet PO 12/22/24 20:24 400 mg ONCE ONE Administration Medical Decision Making Medical Decision Making MDM Narrative: Patient's pain atypical for ACS. She is 64 years old but has no significant cardiac risk. First set of cardiac enzymes are negative will get a 2nd set. My interpretation of patient's EKG showed a sinus rhythm heart rate is 70 [place] QRS QTC within normal limits there is diffuse T-wave flattening noted. Patient's EKG is not changed from previous EKG. I reviewed patient's chest x-ray that shows no evidence of pneumothorax. No rib fracture. I reviewed radiology's reading which showed the same. Patient's history not consistent with dissection. Will get a 2nd set of heart enzymes given patient has chronic pain to the upper extremity we did also get a D-dimer throughout the possibility of PE. I felt the risk of PE is low. Patient is x-ray of the shoulder was grossly negative. No pneumonia no pneumothorax. Her D-dimer is 263. Age adjusted is negative. In the setting of low risk unlikely secondary to PE. Patient's troponin x2 sets are negative in the setting of atypical chest pain no significant cardiac risk unlikely to have ACS as her heart score is less than 3. In stable condition Differential Diagnosis Differential Diagnoses: The differential diagnosis associated with the presentation includes ACS, pneumonia, pneumothorax, musculoskeletal shoulder pain Admission/Observation Consideration of admission/observation: Escalation of care including admission/observation considered Considered admission but given all of all well appearance negative x-ray. Heart score less than 3 will discharge patient home Lab Data MDM Lab Attestation statement: I reviewed the patient's lab results. 12/22/24 18:27 12/22/24 18:27 Labs: Lab Results 12/22/24 12/22/24 Range/Units 18:27 19:51 WBC 8.7 (4.8-10.8) X10*3/uL RBC 4.91 (4.20-5.50) X10*6/uL Hgb 13.5 (12.0-16.0) g/dl Hct 41.7 (37.0-47.0) % MCV 84.9 (80.0-98.0) fL MCH 27.5 (27.0-33.0) pg MCHC 32.4 (31.0-35.0) g/dl RDW 14.8 (11.0-16.0) % Plt Count 307 (160-400) X10*3/uL MPV 9.7 (9.4-12.3) fL Immature Gran % (Auto) 0.2 (0.0-0.4) % Neut % (Auto) 68.0 (45-73) % Lymph % (Auto) 20.2 (20-40) % [place] % (Auto) 9.7 (2-11) % Eos % (Auto) 1.3 (0-4) % Baso % (Auto) 0.6 (0-2) % Lymph # (Auto) 1.8 (1.2-4.9) X10*3/uL [place] # (Auto) 0.9 (0.1-1.2) X10*3/uL Eos # (Auto) 0.1 (0.0-0.4) X10*3/uL Baso # (Auto) 0.1 (0.0-0.2) X10*3/uL Abs Immat Gran (auto) 0.02 (0.00-0.03) X10*3/uL Absolute Neuts (auto) 5.9 (2.0-8.3) x10*3/uL Absolute Nucleated RBC 0.000 (0.0-0.012) X10*3/uL Nucleated RBC % (auto) 0.0 (0.0-0.2) /100WBC D-Dimer High Sensitivty 263 NG/ML Sodium 137 (135-145) mmol/L Potassium 4.0 (3.3-5.1) mmol/L Chloride 101 (96-108) mmol/L Carbon Dioxide 28 (22-29) mmol/L Anion Gap 12 (12-20) BUN 18 H (9-16) mg/dL Creatinine 0.89 (0.5-1.4) mg/dL Estim Creat Clear Calc 61.1 Estimated GFR > 60 Random Glucose 91 (60-115) mg/dL Calcium 9.3 D (8.4-10.2) mg/dL Total Bilirubin 0.2 (0.0-1.0) mg/dL Direct Bilirubin < 0.2 (0.0-0.5) mg/dL AST 25 (5-31) U/L ALT 25 (0-31) U/L Alkaline Phosphatase 83 (39-117) U/L Troponin I High Sens < 2.7 < 2.7 (<3.5-17.0) ng/L Total Protein 7.4 (6.5-8.0) g/dL Albumin 4.1 (3.5-5.0) g/dL Independent Interpretation I performed an independent interpretation of an: EKG (Sinus heart rate is 70 [place] QRS QTC within normal limits is diffuse T-wave flattening noted) and Plain X-Ray Interpretation: Chest x-ray negative for pneumonia pneumothorax Radiology Impression Discussion of test interpretation with radiology: I have reviewed the radiologist's reading. External Record Review External record reviewed: Inpatient record Chronic Conditions Patient?s care impacted by: Hypertension Social Determinants Patient?s care significantly limited by Social Determinants of Health including: Problems related to primary support group Discharge Plan Discharge Clinical Impression: Chest pain Patient Disposition: Home, Self-Care Instructions: Chest Pain (ED) Prescriptions: No Action polyethylene glycol 3350 [Miralax] 17 gram/dose powder 17 g PO DAILY Qty: 850 2RF albuterol sulfate [Ventolin HFA] 90 mcg/actuation HFA aerosol inhaler 2 puff PO Q6H PRN (Reason: for wheezing) 30 Days Qty: 18 6RF albuterol sulfate 2.5 mg /3 mL (0.083 %) solution for nebulization 2.5 mg inhalation Q4H PRN (Reason: shortness of breath or wheezing) Qty: 180 3RF fluticasone propion-salmeterol 250-50 mcg/dose blister with device 1 ea PO BID Qty: 60 5RF meclizine [Dramamine Less Drowsy] 25 mg tablet 25 mg PO TID PRN (Reason: dizziness) Qty: 20 0RF pyridoxine (vitamin B6) 100 mg tablet 200 mg PO DAILY@1200 cetirizine 10 mg tablet 10 mg PO DAILY PRN (Reason: allergy symptoms) Qty: 30 0RF ibuprofen 800 mg tablet 800 mg PO Q8H PRN (Reason: pain) Qty: 30 0RF acetaminophen [Tylenol] 325 mg capsule 650 mg PO Q6H PRN (Reason: pain) Qty: 21 0RF cyclobenzaprine 10 mg tablet 10 mg PO Q8H Qty: 20 0RF doxepin 75 mg capsule 75 mg PO BEDTIME estazolam 1 mg tablet 3 mg PO BEDTIME alendronate 70 mg tablet 70 mg PO TU cholecalciferol (vitamin D3) 25 mcg (1,000 unit) tablet 25 mcg PO DAILY Zepbound 10 mg/0.5 mL pen injector subcut QWEEK omeprazole 40 mg capsule,delayed release(DR/EC) 40 mg PO DAILY@0630 lidocaine 5 % adhesive patch,medicated 1 patch topical DAILY magnesium oxide 400 mg (241.3 mg magnesium) tablet 400 mg PO DAILY@1200 levothyroxine 100 mcg tablet 100 mcg PO DAILY@0600 venlafaxine 37.5 mg tablet PO Referrals: Barrett [place] MD [Physician, Cardiology] - 12/25/24 Print Language: Argentine
--- NOTE | 2024-12-22 18:11 | ECG_ITS ---
Test Reason : CP Blood Pressure : */* mmHG Vent. Rate : 80 BPM Atrial Rate : 80 BPM P-R Int : 166 ms QRS Dur : 70 ms QT Int : 360 ms P-R-T Axes : 39 36 28 degrees QTcB Int : 415 ms Normal sinus rhythm Low voltage QRS Nonspecific T wave abnormality Abnormal ECG When compared with ECG of 28-Jan-2024 11:27, No significant change was found Referred By: Mary Lara Electronically Signed By: Barrett [place]
[2024-12-22 18:32] LABS: MANUAL DIFF FLAG NO
[2024-12-22 18:38] LABS: Hematocrit 41.7 % (37.0-47.0); Hemoglobin 13.5 g/dl (12.0-16.0); Imm Gran Abs Auto 0.02 X10*3/uL (0.00-0.03); Imm Gran Pct Auto 0.2 % (0.0-0.4); Lymphocytes Absolute Auto 1.8 X10*3/uL (1.2-4.9); Mean Corpuscular HGB Conc 32.4 g/dl (31.0-35.0); Mean Corpuscular Hemoglobin 27.5 pg (27.0-33.0); Mean Corpuscular Volume 84.9 fL (80.0-98.0); NRBC Abs Auto 0.000 X10*3/uL (0.0-0.012); NRBC Pct Auto 0.0 /100WBC (0.0-0.2); Platelet Count 307 X10*3/uL (160-400); Red Blood Count 4.91 X10*6/uL (4.20-5.50); White Blood Count 8.7 X10*3/uL (4.8-10.8)
--- OUTSIDE RECORDS SUMMARY | 2024-12-22 18:42 | XMS_ITS | Encounter Summary ---
Author Organization [employer] Address [address] [facility] [address] [place] [address] Care Team Providers Care Architectural Associate Name Role Phone Name, Gregg DIAMOND Primary Care Provider [phone] Encounter Details Date Type Department Care Team (Late st Contact Info) Description 07/26/2024 Orders Only [facility] MEDICINE [address] [place], [place] [phone] Joann Angel NP [address] [place] [address] Obesity (BMI 30-39.9) (Primary Dx) Social History [...] AM EST Office Visit [facility] ADULT DENTAL [address] [place] [address] Heath Dougherty DDS [address] [place] [address] 03/06/2025 9:00 AM EST Office Visit [facility] MEDICINE [address] [place] [address] 269[address] Gregg Gandhi MD [address] [place] [address] 07/02/2025 10:15 AM EDT Office Visit [facility] ADULT DENTAL [address] [place] [address] Faye Mi documented as of this encounter Visit Diagnoses Diagnosis Obesity (BMI 30-39.9)- Primary documented in this encounter Additional Health Concerns Assessment Noted Time PHQ-9 Depression Total Score: 1 07/18/19 25 11:20 AM EDT documented as of this encounter Care Teams Architectural Associate Relationship Specialty Start Date End Date Gregg Gandhi MD [address] [place] [address] PCP - General Family Medicine 04/16/15 [facility] 05/23/24 documented as of this encounter
--- OUTSIDE RECORDS SUMMARY | 2024-12-22 18:42 | XMS_ITS | Encounter Summary ---
Author Organization [employer] Address [address] [facility] [address] [place] [address] Care Team Providers Care Joint Runner Name Role Phone Name, Gregg DIAMOND Primary Care Provider [phone] Reason for Visit * Reason Onset Date Comments PT1 02/25/2023 Encounter Details Date Type Department Care Team ([facility] st Contact Info) Description 02/25/2023 Telephone [facility] MEDICINE [address] [place] [address] Name, MD Gregg [address] [place] [address] PT1 Social History Tobacco Use Types Packs/Day [...] - valid through 06/2023 [facility] neurology - [id number] authorized Dr Chakraborty - [id number] pending [facility] Gen Surg - [id number] authorized [facility] - [id number] authorized Renal & Trans - [id number] authorized ENT - [id number] pending [facility] medical office - [id number] pending * Telephone Encounter - Cameron Su - 02/25/2023 4:29 PM EST PT1 needed Date: N/A Time: N/A Visits: 2 or 3 monthly Address: [address] [facility] Facility: [facility] Cardiovascular Wheel Chair: No Director Patient Accounting Needed: No PT1 needed Date: N/A Time: N/A Visits: 2 or 3 Monthly Address: [address] [facility] Facility: [facility] Neurology Wheel No Director Patient Accounting Needed: No PT1 needed Date: N/A Time: N/A Visits: 2 or 3 Monthly Address: [address] [facility] Facility: Dr Chakraborty Wheel Chair: No Director Patient Accounting Needed: No PT1 needed Date: N/A Time: N/A Visits: 2 or 3 Monthly Address: [address] [place] [address] dr LambertRafy [place] Facility: [facility] General Surgery Wheel Chair: No Director Patient Accounting Needed: No PT1 needed Date: N/A Time: N/A Visits: 2 or 3 Monthly Address: [address] [place] [address] Facility: [facility] Wheel Chair: No Director Patient Accounting Needed: No PT1 needed Date: N/A Time: N/A Visits: 2 or 3 monthly Address: [address] [facility] Facility: [facility] Wheel Chair: No Director Patient Accounting Needed: No PT1 needed Date: N/A Time: N/A Visits: 2 or 3 monthly Address: [address] [facility] Facility: [facility] Wheel Chair: No Director Patient Accounting Needed: No PT1 needed Date: N/A Time: N/A Visits: 2 or 3 Monthly Address: [address] [facility] [address] Cesia DESOUZA Facility: [facility] medical Office Wheel Chair: No Director Patient Accounting Needed: No PT1 needed Date: N/A Time: N/A Visits: 2 or 3 Monthly Address: [address] [place] [address] Facility: [facility] Wheel Chair: No Director Patient Accounting Needed: No documented in this encounter Plan of Treatment Upcoming Encounters Date Type Department Care Team (Late st Contact Info) Description 01/02/2025 8:30 AM EST Office Visit [facility] ADULT DENTAL [address] [place] [phone] Heath Dougherty DDS [address] [place] [phone] 03/06/2025 9:00 AM EST Office Visit [facility] MEDICINE [address] [place] [phone] Name, MD Gregg [address] [place] [address] 07/02/2025 10:15 AM EDT Office Visit [facility] ADULT DENTAL [address] [place] [address] Faye Mi documented as of this encounter Visit Diagnoses Not on filedocumented in this encounter Additional Health Concerns Assessment Noted Time PHQ-9 Depression Total Score: 7 03/04/19 23 9:17 AM EST documented as of this encounter Care Teams Joint Runner Relationship Specialty Start Date End Date Name, MD Gregg [address] [place] [phone] PCP - General Family Medicine 04/16/15 [facility] 05/23/24 documented as of this encounter
--- OUTSIDE RECORDS SUMMARY | 2024-12-22 18:42 | XMS_ITS | Encounter Summary ---
Author Organization [employer] Address [address] [facility] [address] [place] [address] Care Team Providers Care Utility Worker Film Processing Name Role Phone Name, Gregg DIAMOND Primary Care Provider [phone] Reason for Visit * Reason Comments Med Refill Encounter Details Date Type Department Care Team ([facility] st Contact Info) Description 02/14/2024 Refill [facility] MEDICINE [address] [place] [address] Name, MD Gregg [address] [place] [address] Social History Tobacco Use Types Packs/Day Years [...] Description 01/02/2025 8:30 AM EST Office Visit [facility] ADULT DENTAL [address] [place] [address] Heath Dougherty DDS [address] [place] [address] 03/06/2025 9:00 AM EST Office Visit [facility] MEDICINE [address] [place] [phone] Name, MD Gregg [address] [place] [address] 07/02/2025 10:15 AM EDT Office Visit [facility] ADULT DENTAL [address] [place] [address] Faye Mi documented as of this encounter Visit Diagnoses Not on filedocumented in this encounter Additional Health Concerns Assessment Noted Time PHQ-9 Depression Total Score: 0 09/01/19 24 10:42 AM EDT documented as of this encounter Care Teams Utility Worker Film Processing Relationship Specialty Start Date End Date Name, MD Gregg [address] [place] [address] PCP - General Family Medicine 04/16/15 [facility] 05/23/24 documented as of this encounter
--- OUTSIDE RECORDS SUMMARY | 2024-12-22 18:42 | XMS_ITS | Encounter Summary ---
Author Organization [employer] Address [address] [facility] 7t [place] [address] Care Team Providers Care Wet Chemistry Analyst Name Role Phone Name, Gregg DIAMOND Primary Care Provider [phone] Reason for Visit * Reason Comments Med Change Request Encounter Details Date Type Department Care Team ([facility] Contact Info) Description 07/26/2024 Refill [facility] MED[facility] [address] [place] [address] Name, MD Gregg 230 [place] [address] Social History Tobacco Use Types Packs/Day Years [...] 01/02/2025 8:30 AM EST Office Visit [facility] ADULT DENTAL [address] [place] [address] Heath Dougherty DDS [address] [place] [address] 03/06/2025 9:00 AM EST Office Visit [facility] MEDICINE [address] [place] [address] Name, MD Gregg [address] [place] [address] 07/02/2025 10:15 AM EDT Office Visit [facility] ADULT DENTAL [address] [place] [address] Faye Mi documented as of this encounter Visit Diagnoses Not on filedocumented in this encounter Additional Health Concerns Assessment Noted Time PHQ-9 Depression Total Score: 1 07/18/19 25 11:20 AM EDT documented as of this encounter Care Teams Wet Chemistry Analyst Relationship Specialty Start Date End Date Name, MD Gregg [address] [place] [address] PCP - General Family Medicine 04/16/15 [facility] 05/23/24 documented as of this encounter
--- OUTSIDE RECORDS SUMMARY | 2024-12-22 18:42 | XMS_ITS | Encounter Summary ---
Author Organization [employer] Address [address] 7t [place] [address] Care Team Providers Care Commercial Agent Name Role Phone Name, Gregg DIAMOND Primary Care Provider [phone] Reason for Visit * Reason Comments Med Refill Encounter Details Date Type Department Care Team ([facility] st Contact Info) Description 11/16/2023 Refill [facility] [address] [place] [address] Yennifer Ramirez MD [address] [place] [address] Flu-like symptoms Social History Tobacco Use Types [...] Description 01/02/2025 8:30 AM EST Office Visit [facility] ADULT DENTAL [address] [place] [address] Heath Dougherty DDS [address] [place] [address] 03/06/2025 9:00 AM EST Office Visit [facility] [address] [place] [address] Name, MD Gregg [address] [place] [address] 07/02/2025 10:15 AM EDT Office Visit [facility] ADULT DENTAL [address] [place] [address] Faye Mi documented as of this encounter Visit Diagnoses Diagnosis Flu-like symptoms documented in this encounter Additional Health Concerns Assessment Noted Time PHQ-9 Depression Total Score: 0 09/01/19 24 10:42 AM EDT documented as of this encounter Care Teams Commercial Agent Relationship Specialty Start Date End Date Name, MD Gregg [address] [place] [address] PCP - General Family Medicine 04/16/15 [facility] 05/23/24 documented as of this encounter
--- OUTSIDE RECORDS SUMMARY | 2024-12-22 18:42 | XMS_ITS | Clinical Summary ---
Author Organization [employer] Address [address] 7t [place] [address] Care Team Providers Care Wagon Drill Operator Name Role Phone Name, Gregg DIAMOND Primary Care Provider [phone] Allergies Active Allergy Reactions Criticality Noted Date [...] 2 sprays each nostril bid prn rhinorrhea, maori 15 mL 12/07/19 24 Active doxepin (SINEquan) [...] is already in the process of seeing [facility] Plan: Increase fluids, [...] range. Recent lab work not available contacted [facility] for results. Will renew medications at [...] I will evaluate for congenital adrenal hyperplasia, Phoenix syndrome, polycystic ovarian syndrome although that seems [...] [facility] ADULT DENTAL [address] [place] [address] Faye Mi Dental calculus (Primary Dx); Dental plaque 12/14/2024 Refill [facility] [address] [place] [address] Gregg Gandhi MD 12/08/2024 Telephone [facility] [address] [place] [address] Gregg Gandhi MD 12/08/2024 Telephone [facility] [address] [place] [address] Gregg Gandhi MD Durable Medical Equipment 12/01/2024 Telephone [facility] [address] [place] [address] Sweta Giraldo MA 12/01/2024 Telephone [facility] [address] [place] [address] Sweta Giraldo MA dec recalls 11/14/2024 9:00 AM EDT Office Visit [facility] ADULT DENTAL [address] [place] [address] Heath Dougherty DDS 11/07/2024 Telephone [facility] ADULT DENTAL [address] [place] [address] Heath Dougherty DDS 11/03/2024 Refill [facility] [address] [place] [address] Gregg Gandhi MD Osteoporosis, unspecified osteoporosis type, unspecified pathological fracture presence 10/26/2024 3:00 PM EDT Office Visit [facility] ADULT DENTAL [address] [place] [address] Ayan Calvin, DMD 10/23/2024 Telephone [facility] ADULT DENTAL [address] [place] [address] Ayan Calvin, DMD Dr. Calvin unable to use dentures 10/20/2024 Telephone [facility] [address] [place] [address] Gregg Gandhi MD Durable Medical Equipment 10/19/2024 9:00 AM EDT Office Visit [facility] ADULT DENTAL [address] [place] [address] Ayan Calvin, DMD 10/18/2024 2:45 PM EDT Office Visit [facility] [address] [place] [address] Gregg Gandhi MD Obesity (BMI 30-39.9) (Primary Dx) 10/18/2024 Travel 09/28/2024 Results Follow-Up [address] [address] Maura Taylor, BRIAN XR Clavicle Left 09/27/[address] [address] Gregg Gandhi MD Osteoporosis, unspecified osteoporosis type, unspecified pathological fracture presence 09/26/2024 1:30 PM EDT Office Visit [address] [address] Nicole Dai NP Acute pain of left shoulder (Primary Dx) 09/26/2024 Travel 09/25/[address] [address] Gregg Gandhi MD 09/25/[address] [address] Gregg Gandhi MD Nurse Triage 09/22/[address] [address] Gregg Gandhi MD from Last 3 Months Immunizations Immunization Administration [...] Visit [facility] ADULT DENTAL [address] [place] [address] Heath Dougherty DDS [address] [place] [address] 03/06/2025 9:00 AM EST Office Visit [facility] MED[facility] [address] [place] [address] Name, MD Gregg [address] [place] [address] 07/02/2025 10:15 AM EDT Office Visit [facility] ADULT DENTAL [address] [place] [address], [place] [address] Faye Mi Health Maintenance Due Date Last [...] PM EDT Narrative 09/26/2024 3:29 PM EDT [address] [address] XRay Report Signed Patient: Mag Ayala MR#: [id number] 4 : 1960 Acct:[id number] Age/Sex: 63 / F ADM Date: 09/26/24 Loc: HO.HHCX Attending Dr: Nicole Dai BOAT DESIGNER Ordering Physician: Nicole Dai NP Date of Service: 09/26/24 Procedure(s): XR clavicle LT Accession Number(s): [id number] cc: Nicole Dai BOAT DESIGNER EXAMINATION: XR CLAVICLE LEFT HISTORY: pain COMPARISON: [...] OV> 09/26/24 1526 DD/ 1420 TD/TT: 09/26/24 145 Business Taxes Specialist: Procedure Note Donotuseinterpreter, Image - 09/26/[address] [address] XRay Report Signed Patient: Eulalia Ayala#: [id number] 4 : 1960cct:[id number] Age/Sex: 63 / FADM Date: 09/26/24 Loc: HO.HHCX Attending Dr: Nicole Dai NP Ordering Physician: Nicole Dai NP Date of Service: 09/26/24 Procedure(s): XR clavicle LT Accession Number(s): [id number] cc: Nicole Dai BOAT DESIGNER EXAMINATION: XR CLAVICLE LEFT HISTORY: pain COMPARISON: [...] OV> 09/26/24 1526 DD/ 1420 TD/TT: 09/26/24 145 Business Taxes Specialist: Nicole Dai NP IMG XR PROCEDURES Final Result * BI Mammogram Screening Tomosynthesis Bilateral (04/20/2023 12:05 PM EST) Anatomical Region Laterality Modality Breast Bilateral Mammography 04/20/2023 12:0 5 PM EST Narrative 05/05/2023 8:29 AM EDT [address] [place] [address] Mammography Report Signed Patient: Mag Ayala MR#: [id number] 4 : 1960 Acct:[id number] Age/Sex: 62 / F ADM Date: 04/20/23 Loc: HO.MAMMO Attending Dr: Gregg Gandhi MD Ordering Physician: Gregg Gandhi MD Results: 1Negative Date of Service: 04/20/23 Follow Up: 1 Year From Orig inal Mammogram Procedure(s): MM tomosynthesis screening BI Accession Number(s): [id number] cc: Gregg Gandhi MD EXAMINATION: MM SCREENING [...] by Alverto Carrington MD in OV> 05/05/23 0827 DD/ 1205 TD/TT: Business Taxes Specialist: Procedure Note Donotuseinterpreter, Image - 05/05/2023 [facility] [address] [place] [address] [place] [address] Mammography Report Signed Patient: Eulalia Ayala#: [id number] 4 : 9Acct:[id number] Age/Sex: 62 / FADM Date: 04/20/23 Loc: HO.MAMMO Attending Dr: Gregg Gandhi MD Ordering Physician: Gregg Gandhi MDResults: 1Negative Date of Service: 04/20/23Follow Up: 1 Year From Orig inal Mammogram Procedure(s): MM tomosynthesis screening BI Accession Number(s): [id number] cc: Oksana,Gregg DIAMOND EXAMINATION: MM SCREENING DIGITAL BREAST TOMOSYNTHESIS, BILATERAL [...] in OV> 05/05/23 0825 DD/ 1205 TD/TT: Business Taxes Specialist: Gregg Gandhi MD IMG BI PROCEDURES Final [...] LDL-C. Darek SS et al. BOO. 2013;310(19): 4711-0538 (http://education.[employer].LocalCustomer/faq/CHW678) Non-HDL Cholesterol 125 <130 mg/dL (calc) [facility] Comment: For patients with diabetes plus 1 major ASCVD risk factor, treating to a non-HDL-C goal of <100 mg/dL (LDL-C of <70 mg/dL) is considered a therapeutic option. Triglycerides 80 <150 mg/dL [facility] 05/20/2020 9:32 AM EDT us Gregg Gandhi MD LAB BLOOD ORDERABLES Final Resul t [facility] [address] from Last 3 Months or Most Recently Relevant to Health Maintenance Insurance [facility] STANDARD FORMERLY [facility] FPC OPTIONS (HMO D-SNP) [facility] Care Teams Wagon Drill Operator Relationship Specialty Start Date End Date Name, MD Gregg 230 [place] [address] PCP - General Family Medicine 04/16/15 [facility] 05/23/24
--- OUTSIDE RECORDS SUMMARY | 2024-12-22 18:42 | XMS_ITS | Encounter Summary ---
Author Organization [employer] Address [address] 7t [place] [address] Care Team Providers Care Rental Sales Associate Name Role Phone Name, Gregg DIAMOND Primary Care Provider [phone] Reason for Visit * Reason Comments Med Refill Encounter Details Date Type Department Care Team ([facility] st Contact Info) Description 12/14/2024 Refill [facility] MEDICINE [address] [place] [address] Name, MD Gregg 230 [place] [address] Social History Tobacco Use Types Packs/Day Years [...] 8:30 AM EST Office Visit [facility] ADULT DENTAL [address] [place] [address] Heath Dougherty DDS [address] [place] [address] 03/06/2025 9:00 AM EST Office Visit [facility] MEDICINE [address] [place] [address] Name, MD Gregg [address] [place] [address] 07/02/2025 10:15 AM EDT Office Visit [facility] ADULT DENTAL [address] [place] [address] Faye Mi documented as of this encounter Visit Diagnoses Not on filedocumented in this encounter Additional Health Concerns Assessment Noted Time PHQ-9 Depression Total Score: 1 07/18/19 25 11:20 AM EDT documented as of this encounter Care Teams Rental Sales Associate Relationship Specialty Start Date End Date Name, MD Gregg [address] [place] [address] PCP - General Family Medicine 04/16/15 [facility] 05/23/24 documented as of this encounter
--- OUTSIDE RECORDS SUMMARY | 2024-12-22 18:42 | XMS_ITS | Encounter Summary ---
Author Organization [employer] Address [address] 7t [place] [address] Care Team Providers Care Booth Operator Name Role Phone Name, Gregg DIAMOND Primary Care Provider [phone] Reason for Visit * Reason Onset Date Comments Dr. Calvin unable to use dentures 10/23/2024 Encounter Details Date Type Department Care Team ([facility] Contact Info) Description 10/23/2024 Telephone [facility] ADULT DENTAL [address] [place] [address] Ayan Calvin, DMD [address] [place] [address] Dr. Calvin unable to use dentures Social [...] Description 01/02/2025 8:30 AM EST Office Visit [facility] ADULT DENTAL [address] [place] [address] Heath Dougherty DDS [address] [place] [address] 03/06/2025 9:00 AM EST Office Visit [facility] MEDICINE [address] [place] [address] Name, MD Gregg [address] [place] [address] 07/02/2025 10:15 AM EDT Office Visit [facility] [address] Faye Mi documented as of this encounter Visit Diagnoses Not on filedocumented in this encounter Additional Health Concerns Assessment Noted Time PHQ-9 Depression Total Score: 1 07/18/19 11:20 AM EDT documented as of this encounter Care Teams Booth Operator Relationship Specialty Start Date End Date Name, MD Gregg [address] [place] [address] PCP - General Family Medicine 04/16/15 [facility] 05/23/24 documented as of this encounter
--- OUTSIDE RECORDS SUMMARY | 2024-12-22 18:42 | XMS_ITS | Encounter Summary ---
Author Organization [employer] Address [address] [facility] 7t [place] [address] Care Team Providers Care Biological Science Technician Name Role Phone Name, Gregg DIAMOND Primary Care Provider [phone] Reason for Visit * Reason Onset Date Comments broken tooth to hold partial 02/28/2024 Encounter Details Date Type Department Care Team ([facility] st Contact Info) Description 02/28/2024 Telephone [facility] ADULT DENTAL [address] [place] [address] Ayan Calvin, DMD [address] [place] [address] broken tooth to hold partial Social History [...] 8:30 AM EST Office Visit [facility] ADULT DENTAL [address] [place] [address] Heath Dougherty DDS [address] [place] [address] 03/06/2025 9:00 AM EST Office Visit [facility] MEDICINE [address] [place] [address] Name, MD Gregg [address] [place] [address] 07/02/2025 10:15 AM EDT Office Visit [facility] ADULT DENTAL [address] [place] [address] Faye Mi documented as of this encounter Visit Diagnoses Not on filedocumented in this encounter Additional Health Concerns Assessment Noted Time PHQ-9 Depression Total Score: 0 09/01/19 24 10:42 AM EDT documented as of this encounter Care Teams Biological Science Technician Relationship Specialty Start Date End Date Name, MD Gregg 230 [place] [address] PCP - General Family Medicine 04/16/15 [facility] 05/23/24 documented as of this encounter
--- OUTSIDE RECORDS SUMMARY | 2024-12-22 18:42 | XMS_ITS | Encounter Summary ---
Author Organization [employer] Address [address] 7t [place] [address] Care Team Providers Care Supervisor Plastics Name Role Phone Name, Gregg DIAMOND Primary Care Provider [phone] Reason for Visit * Reason Onset Date Comments Nurse Triage 11/27/2022 Encounter Details Date Type Department Care Team ([facility] st Contact Info) Description 11/27/2022 Telephone [facility] MEDICINE [address] [place] [address] Name, MD Gregg 230 [place] [address] Nurse Triage Social History Tobacco Use Types [...] t he electric, gas, oil or water [employer] threatened to shut off services in your [...] caller accepted this outcome Does not need translator/interpreter . documented in this encounter Plan of Treatment Upcoming Encounters Date Type Department Care Team (Late st Contact Info) Description 01/02/2025 8:30 AM EST Office Visit [facility] ADULT DENTAL [address] [place] [address] Heath Dougherty DDS [address] [place] [address] 03/06/2025 9:00 AM EST Office Visit [facility] MEDICINE [address] [place] [address] Name, MD Gregg [address] [place] [address] 07/02/2025 10:15 AM EDT Office Visit [facility] ADULT DENTAL [address] [place] [address] Faye Mi documented as of this encounter Visit Diagnoses Not on filedocumented in this encounter Additional Health Concerns Assessment Noted Time PHQ-9 Depression Total Score: 7 03/04/19 23 9:17 AM EST documented as of this encounter Care Teams Supervisor Plastics Relationship Specialty Start Date End Date Name, MD Gregg [address] [place] [address] PCP - General Family Medicine 04/16/15 [facility] 05/23/24 documented as of this encounter
--- OUTSIDE RECORDS SUMMARY | 2024-12-22 18:43 | XMS_ITS | Encounter Summary ---
Author Organization [employer] Address [address] [place] [address] Care Team Providers Care Storm Sash Maker Name Role Phone Name, Gregg DIAMOND Primary Care Provider [phone] Reason for Visit * Reason Onset Date Comments PT1 07/27/2023 Encounter Details Date Type Department Care Team ([facility] st Contact Info) Description 07/27/2023 Telephone [facility] MEDICINE [address] [place] [address] Name, MD Gregg [address] [place] [address] PT1 Social History Tobacco Use [...] name: Dr. Carson Smith MD Facility Address: [address] [place] [address] [address], [facility], [address] Escort needed: Y/N: No Do you have a wheelchair: Y/N: No If yes- Manual or electric: Visits: 2-3 Next upcoming appt 08/03/23 documented in this encounter Plan of Treatment Upcoming Encounters Date Type Department Care Team (Late st Contact Info) Description 01/02/2025 8:30 AM EST Office Visit [facility] ADULT DENTAL [address] [place] [address] Heath Dougherty DDS [address] [place] [address] 03/06/2025 9:00 AM EST Office Visit [facility] MEDICINE [address] [place] [address] Name, MD Gregg [address] [place], [place] [phone] 07/02/2025 10:15 AM EDT Office Visit [facility] ADULT DENTAL [address] [place] [address] Faye Mi documented as of this encounter Visit Diagnoses Not on filedocumented in this encounter Additional Health Concerns Assessment Noted Time PHQ-9 Depression Total Score: 7 03/04/19 23 9:17 AM EST documented as of this encounter Care Teams Storm Sash Maker Relationship Specialty Start Date End Date Name, MD Gregg [address] [place] [address] PCP - General Family Medicine 04/16/15 [facility] 05/23/24 documented as of this encounter
--- OUTSIDE RECORDS SUMMARY | 2024-12-22 18:43 | XMS_ITS | Encounter Summary ---
Author Organization [employer] Address [address] 7[address] [place] [address] Care Team Providers Care Courtesy Car Driver Name Role Phone Name, Gregg DIAMOND Primary Care Provider [phone] Reason for Visit * Reason Onset Date Comments Appointment Request 05/24/2024 Encounter Details Date Type Department Care Team ([facility] Contact Info) Description 05/24/2024 Telephone [facility] MEDICINE [address] [place] [address] Name, MD Gregg [address] [place] [address] Appointment Request Social History Tobacco Use Types [...] the phone she will. Contact pt at [phone] documented in this encounter Plan of Treatment Upcoming Encounters Date Type Department Care Team (Late st Contact Info) Description 01/02/2025 8:30 AM EST Office Visit [facility] ADULT DENTAL [address] [place] [address] Heath Dougherty DDS 230 [place] [address] 03/06/2025 9:00 AM EST Office Visit [facility] MEDICINE [address] [place] [address] Name, MD Gregg [address] [place] [address] 07/02/2025 10:15 AM EDT Office Visit [facility] ADULT DENTAL [address] [place] [address] Faye Mi documented as of this encounter Visit Diagnoses Not on filedocumented in this encounter Additional Health Concerns Assessment Noted Time PHQ-9 Depression Total Score: 0 09/01/19 24 10:42 AM EDT documented as of this encounter Care Teams Courtesy Car Driver Relationship Specialty Start Date End Date Name, MD Gregg [address] [place] [address] PCP - General Family Medicine 04/16/15 [facility] 05/23/24 documented as of this encounter
--- OUTSIDE RECORDS SUMMARY | 2024-12-22 18:43 | XMS_ITS | Encounter Summary ---
Author Organization [employer] Address [address] [facility] [address] [place] [address] Care Team Providers Care Precision Devices Inspector/Tester Name Role Phone Name, Gregg DIAMOND Primary Care Provider [phone] Reason for Visit * Reason Comments Med Refill Encounter Details Date Type Department Care Team ([facility] st Contact Info) Description 07/13/2023 Refill [facility] MEDICINE 230 [place] [address] Ban Granados FNP 230 [place] [address] Social History Tobacco Use Types Packs/Day Years [...] the past 12 months, has t he weipass, Snapfish, oil or water [employer] threatened to shut off services in your [...] 3:57 PM EDT Pt came into the [facility] asking for refills on Wegomy meds. She wants Dr. Granados to send the refill in two days to be able to meat pickler in pharmacy. 07/13/23 documented in this encounter Plan of Treatment Upcoming Encounters Date Type Department Care Team (Late st Contact Info) Description 01/02/2025 8:30 AM EST Office Visit [facility] ADULT DENTAL [address] [place] [address] Heath Dougherty DDS [address] [place] [address] 03/06/2025 9:00 AM EST Office Visit [facility] MEDICINE 230 [place] [address] Name, MD Gregg 230 [place] [address] 07/02/2025 10:15 AM EDT Office Visit [facility] ADULT DENTAL [address] [place] [address] Faye Mi documented as of this encounter Visit Diagnoses Not on filedocumented in this encounter Additional Health Concerns Assessment Noted Time PHQ-9 Depression Total Score: 7 03/04/19 23 9:17 AM EST documented as of this encounter Care Teams Precision Devices Inspector/Tester Relationship Specialty Start Date End Date Gregg Gandhi MD [address] [place] [address] PCP - General Family Medicine 04/16/15 [facility] 05/23/24 documented as of this encounter
--- OUTSIDE RECORDS SUMMARY | 2024-12-22 18:43 | XMS_ITS | Encounter Summary ---
Author Organization [employer] Address [address] [facility] 7t [place] [address] Care Team Providers Care Compounding Scaler Name Role Phone Name, Gregg DIAMOND Primary Care Provider [phone] Reason for Visit * Reason Comments Med Refill Encounter Details Date Type Department Care Team ([facility] st Contact Info) Description 03/04/2022 Refill [facility] MEDICINE [address] [place] [address] Name, MD Gregg [address] [place] [address] Osteoporosis, unspecified osteoporosis type, unspecified pathological fracture [...] Description 01/02/2025 8:30 AM EST Office Visit [facility] ADULT DENTAL [address] [place] [address] Heath Dougherty DDS [address] [place] [address] 03/06/2025 9:00 AM EST Office Visit [facility] MEDICINE [address] [place] [address] NameGregg MD [address] [place] [address] 07/02/2025 10:15 AM EDT Office Visit [facility] ADULT DENTAL [address] [place] [address] Faye Mi documented as of this encounter Visit Diagnoses Diagnosis Osteoporosis, unspecified osteoporosis type, unspecified pathological fracture presence documented in this encounter Additional Health Concerns Assessment Noted Time PHQ-9 Depression Total Score: 7 03/04/19 23 9:17 AM EST documented as of this encounter Care Teams Compounding Scaler Relationship Specialty Start Date End Date Name, MD Gregg [address] [place] [address] PCP - General Family Medicine 04/16/15 [facility] 05/23/24 documented as of this encounter
--- OUTSIDE RECORDS SUMMARY | 2024-12-22 18:43 | XMS_ITS | Encounter Summary ---
Author Organization [employer] Address [address] [facility] 7t [place] [address] Care Team Providers Care Finishing Wire Sawyer Name Role Phone Name, Gregg DIAMOND Primary Care Provider [phone] Reason for Visit * Reason Comments Med Refill Encounter Details Date Type Department Care Team ( st Contact Info) Description 10/14/2022 Refill [facility] MEDICINE [address] [place] [address] Name, MD Gregg [address] [place] [address] Osteoporosis, unspecified osteoporosis type, unspecified pathological fracture [...] [facility] [address] [place] [address] Heath Dougherty DDS [address] [place] [address] 03/06/2025 9:00 AM EST Office Visit [facility] MEDICINE [address] [place] [address] Name, [place] [address] 07/02/2025 10:15 AM EDT Office Visit [facility] ADULT DENTAL [address] [place] [address] Faye Mi documented as of this encounter Visit Diagnoses Diagnosis Osteoporosis, unspecified osteoporosis type, unspecified pathological fracture presence documented in this encounter Additional Health Concerns Assessment Noted Time PHQ-9 Depression Total Score: 7 03/04/19 23 9:17 AM EST documented as of this encounter Care Teams Finishing Wire Sawyer Relationship Specialty Start Date End Date Name, [place] [address] PCP - General Family Medicine 04/16/15 [facility] 05/23/24 documented as of this encounter
--- OUTSIDE RECORDS SUMMARY | 2024-12-22 18:43 | XMS_ITS | Encounter Summary ---
Author Organization [employer] Address [address] [facility] [address] 7t [place] [address] Care Team Providers Care Senior Statistical Programmer Name Role Phone Name, Gregg DIAMOND Primary Care Provider [phone] Reason for Visit * Reason Onset Date Comments ER Follow-up 05/02/2024 Nurse Triage 05/02/2024 Encounter Details Date Type Department Care Team ([facility] st Contact Info) Description 05/02/2024 Telephone [facility] MEDICINE [address] [place] [address] Name, MD Gregg [address] [place] [address] ER Follow-up; Nurse Triage Social History Tobacco [...] of the rollator walker. TC placed to [facility] pharamcyregarding the fosamax. Lori states the medication [...] in June as she will leaving for [place] at the beginning of June Pt requesting a call from PCP. Mechanical Striper found telehealth visit in PCP schedule. Pt [...] find out more information. TC placed to [facility] pharamcy regardingthe fosamax. Lori states the medication [...] She states that she went to the [facility] yesterday due to right leg pain and right knee isswollen. Pt. Was also having throbbing pain in left side of groin. [facility] did not find any blood clot in leg and Xray of left hip and pelvis-negative. ED is recommending referral to [facility] according to pt. Pt does not want [...] that she remembers. Pt. Needs referral to [facility]. Offered pt. Appt. Today but, pt. Only wants to speak to pcp and is requesting appt. With PCP only or call from PCP to discuss updates and needs. Please get back to pt. To let her know if any of these needs can be met Will send request to Clinical coordinators to get [facility] report from yesterday into pt. Chart. Multiple needs. * Telephone Encounter - Shubham Booth - 05/02/2024 10:20 AM EDT Patient calling to report ED visit on : Date: 05/01/2024 Hospital: [facility] Seen for: Knee pain , groin pain [...] 8:30 AM EST Office Visit [facility] ADULT DENTAL [address] [place] [address] Heath Dougherty DDS [address] [place] [address] 03/06/2025 9:00 AM EST Office Visit [facility] MEDICINE [address] [place] [address] Name, MD Gregg [address] [place] [address] 07/02/2025 10:15 AM EDT Office Visit [facility] ADULT DENTAL [address] [place] [address] Faye Mi documented as of this encounter Visit Diagnoses Not on filedocumented in this encounter Additional Health Concerns Assessment Noted Time PHQ-9 Depression Total Score: 0 09/01/19 24 10:42 AM EDT documented as of this encounter Care Teams Senior Statistical Programmer Relationship Specialty Start Date End Date Name, MD Gregg [address] [place] [address] PCP - General Family Medicine 04/16/15 [facility] 05/23/24 documented as of this encounter
--- OUTSIDE RECORDS SUMMARY | 2024-12-22 18:43 | XMS_ITS | Encounter Summary ---
Author Organization [employer] Address [address] [facility] [address] 7[address] [place] [address] Care Team Providers Care Patrol Mother Name Role Phone Name, Gregg DIAMOND Primary Care Provider [phone] Reason for Visit * Reason Onset Date Comments Nurse Triage 05/04/2024 Encounter Details Date Type Department Care Team ([facility] st Contact Info) Description 05/04/2024 Telephone [facility] MEDICINE [address] [place] [address] Name, MD Gregg [address] [place] [address] Nurse Triage Social History Tobacco Use Types [...] information. Do see mention of hemorrhoids. 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 Call returned to Mag Ayala to triage [...] to perform UA. Pt requesting referral to Alliance [facility] per recommendation from [place]. Pt advised will forward note to Provider [...] acuity questions The caller accepted this outcome. [phone] (setswana) pt states knows Slovenian but there are some words she can't say or understand. Tc from pt stating visited the director nicu today, and he told pt should ask her PCP for a referral for a prosthetic because pt has several purple veins in the anus. Pt states this hasn't happenedto her before. documented in this encounter Plan of Treatment Upcoming Encounters Date Type Department Care Team (Late st Contact Info) Description 01/02/2025 8:30 AM EST Office Visit [facility] ADULT DENTAL [address] [place] [address] Heath Dougherty DDS [address] [place] [address] 03/06/2025 9:00 AM EST Office Visit [facility] MEDICINE [address] [place] [address] Name, MD Gregg [address] [place] [address] 07/02/2025 10:15 AM EDT Office Visit [facility] ADULT DENTAL [address] [facility] [place] [address] Faye Mi documented as of this encounter Visit Diagnoses Not on filedocumented in this encounter Additional Health Concerns Assessment Noted Time PHQ-9 Depression Total Score: 0 09/01/19 10:42 AM EDT documented as of this encounter Care Teams Patrol Mother Relationship Specialty Start Date End Date Name, MD Gregg [address] [facility] [place] [address] PCP - General Family Medicine 04/16/15 [facility] 05/23/24 documented as of this encounter
--- OUTSIDE RECORDS SUMMARY | 2024-12-22 18:43 | XMS_ITS | Encounter Summary ---
Author Organization [employer] Address [address] [facility] 7t [place] [address] Care Team Providers Care High School Science Tutor Name Role Phone Name, Gregg DIAMOND Primary Care Provider [phone] Reason for Visit * Reason Comments Med Refill Encounter Details Date Type Department Care Team ( st Contact Info) Description 10/06/2022 Refill [facility] MEDICINE [address] [place] [address] Name, MD Gregg [address] [place] [address] Osteoporosis, unspecified osteoporosis type, unspecified pathological fracture [...] Description 01/02/2025 8:30 AM EST Office Visit [facility] ADULT DENTAL [address] [place] [address] Heath Dougherty DDS [address] [place] [address] 03/06/2025 9:00 AM EST Office Visit [facility] MEDICINE [address] [place] [address] Name, [place] [address] 07/02/2025 10:15 AM EDT Office Visit [facility] ADULT DENTAL [address] [place] [address] Faye Mi documented as of this encounter Visit Diagnoses Diagnosis Osteoporosis, unspecified osteoporosis type, unspecified pathological fracture presence documented in this encounter Additional Health Concerns Assessment Noted Time PHQ-9 Depression Total Score: 7 03/04/19 23 9:17 AM EST documented as of this encounter Care Teams High School Science Tutor Relationship Specialty Start Date End Date Name, [place] [address] PCP - General Family Medicine 04/16/15 [facility] 05/23/24 documented as of this encounter
--- OUTSIDE RECORDS SUMMARY | 2024-12-22 18:43 | XMS_ITS | Encounter Summary ---
Author Organization [employer] Address [address] [facility] [address] 7t [place] [address] Care Team Providers Care Building Admin Name Role Phone Name, Gregg DIAMOND Primary Care Provider [phone] Reason for Visit * Reason Onset Date Comments Request For Order(s) 07/30/2023 Encounter Details Date Type Department Care Team ([facility] st Contact Info) Description 07/30/2023 Telephone [facility] MEDICINE [address] [place] [address] Name, MD Gregg 230 [place] [address] Request For Order(s) Social History Tobacco Use [...] done. Please clarify Please contact pt at [phone] (No area loss prevention manager needed) documented in this encounter Plan of Treatment Upcoming Encounters Date Type Department Care Team (Late st Contact Info) Description 01/02/2025 8:30 AM EST Office Visit [facility] ADULT DENTAL [address] [place] [address] Heath Dougherty DDS [address] [place] [address] 03/06/2025 9:00 AM EST Office Visit [facility] MEDICINE [address] [place] [address] Name, MD Gregg [address] [place] [address] 07/02/2025 10:15 AM EDT Office Visit [facility] ADULT DENTAL [address] [place] [address] Faye Mi documented as of this encounter Visit Diagnoses Not on filedocumented in this encounter Additional Health Concerns Assessment Noted Time PHQ-9 Depression Total Score: 7 03/04/19 23 9:17 AM EST documented as of this encounter Care Teams Building Admin Relationship Specialty Start Date End Date Name, MD Gregg 230 [place] [address] PCP - General Family Medicine 04/16/15 [facility] 05/23/24 documented as of this encounter
--- OUTSIDE RECORDS SUMMARY | 2024-12-22 18:43 | XMS_ITS | Encounter Summary ---
Author Organization [employer] Address [address] [facility] [address] 7t [place] [address] Care Team Providers Care Clinical Dietetic Technician Name Role Phone Name, Gregg DIAMOND Primary Care Provider [phone] Reason for Visit * Reason Comments Med Refill Encounter Details Date Type Department Care Team ([facility] st Contact Info) Description 06/07/2024 Refill [facility] MEDICINE [address] [place] [address] Name, MD Gregg [address] [place] [address] Social History Tobacco Use Types Packs/Day Years [...] 01/02/2025 8:30 AM EST Office Visit [facility] ADULT DENTAL [address] [place] [address] Heath Dougherty DDS [address] [place] [address] 03/06/2025 9:00 AM EST Office Visit [facility] MEDICINE [address] [place] [address] Name, MD Gregg [address] [place] [address] 07/02/2025 10:15 AM EDT Office Visit [facility] ADULT DENTAL [address] [place] [address] Faye Mi documented as of this encounter Visit Diagnoses Not on filedocumented in this encounter Additional Health Concerns Assessment Noted Time PHQ-9 Depression Total Score: 0 09/01/19 24 10:42 AM EDT documented as of this encounter Care Teams Clinical Dietetic Technician Relationship Specialty Start Date End Date Name, MD Gregg [address] [place] [address] PCP - General Family Medicine 04/16/15 [facility] 05/23/24 documented as of this encounter
--- OUTSIDE RECORDS SUMMARY | 2024-12-22 18:43 | XMS_ITS | Encounter Summary ---
Author Organization [employer] Address [address] [facility] [address] 7t [place] [address] Care Team Providers Care Calender Operator Name Role Phone Name, Gregg DIAMOND Primary Care Provider [phone] Encounter Details Date Type Department Care Team (Late st Contact Info) Description 10/21/2023 Telephone [facility] ADULT DENTAL [address] [place] [address] Ayan Calvin, DMD 230 [place] [address] Social History Tobacco Use Types Packs/Day Years [...] Description 01/02/2025 8:30 AM EST Office Visit [facility] ADULT DENTAL [address] [place] [address] Heath Dougherty DDS [address] [place] [address] 03/06/2025 9:00 AM EST Office Visit [facility] MEDICINE [address] [place] [address] Name, MD Gregg [address] [place] [address] 07/02/2025 10:15 AM EDT Office Visit [facility] ADULT DENTAL [address] [place] [address] Faye Mi documented as of this encounter Visit Diagnoses Not on filedocumented in this encounter Additional Health Concerns Assessment Noted Time PHQ-9 Depression Total Score: 0 09/01/19 24 10:42 AM EDT documented as of this encounter Care Teams Calender Operator Relationship Specialty Start Date End Date Name, MD Gregg 230 [place] [address] PCP - General Family Medicine 04/16/15 [facility] 05/23/24 documented as of this encounter
--- OUTSIDE RECORDS SUMMARY | 2024-12-22 18:43 | XMS_ITS | Clinical Summary ---
Author Organization [facility] Address [address] [place] [address] [place] [address] Phone Care Team Providers Care Computer Sciences Professor Name Role Phone Name, Gregg DIAMOND Primary Care Provider [phone] Allergies Active Allergy Reactions Criticality Noted Date [...] directed by MD Active lorcaserin 20 mg [id number]:St atus post bariatric surgery Take 20 mg [...] 02/20/19 Active calcium carb/D3/magnesium/ zinc (CALCIUM CARB-D3-MAG [id number]) [id number] ag-frui-hd-mg Tab Take 1 tablet by mouth. Active [...] I will evaluate for congenital adrenal hyperplasia, [place] syndrome, polycystic ovarian syndrome although that seems [...] range. Recent lab work not available contacted [facility] for results. Will renew medications at [...] reference range. She does have follow-up with stencil machine operator and hopefully this will yield some information. I would not make any changes to the dose of levothyroxine. Encounters Date Type Department Care Team Description 12/01/2024 Refill [facility] [address] [place] [address] Sandra Flores [place] 10/12/2024 Telephone [facility] Endocrinology [address] [place] [address] Dionicio Chakraborty, thyroid check (thyroid check) from [...] Telemedicine - audio only [facility] [address] [place] [address] Dionicio Chakraborty DO [address] [place] [address] [email or web address] Health Maintenance Due Date Last Done Comments [...] LAB BLOOD BKR ORDERABLES Final R esult [facility] [address] [place] [address] from Last 3 Months or Most Recently Relevant to Health Maintenance Insurance MEDICARE PART A & [facility] MEDICARE PART A & B [facility] MEDICARE [facility]PLACEMENT MEDICARE PART A & B [facility] RE[facility] MEDICARE PART A & B [facility] MEDICARE REPLACEMENT MEDICARE PART A & B [facility] MEDICARE REPLACEMENT [place] [address] MEDICARE PART A & B [facility] MEDICARE REPLACEMENT [place]ARI CASTRO [id number] Care Teams Computer Sciences Professor Relationship Specialty Start Date End Date Name, MD Gregg [address] [place] [address] PCP - General Geriatric Psychiatry 03/15/18 Additional Source Comments The information contained in this document represents components of the legal health record. It is not the complete legal health record.[facility]
--- OUTSIDE RECORDS SUMMARY | 2024-12-22 18:43 | XMS_ITS | Encounter Summary ---
Author Organization [employer] Address [address] [facility] [address] 7t [place] [address] Care Team Providers Care Supportability Engineer Name Role Phone Name, Gregg DIAMOND Primary Care Provider [phone] Reason for Visit * Reason Onset Date Comments clarification of tx 08/09/2023 Encounter Details Date Type Department Care Team ([facility] st Contact Info) Description 08/09/2023 Telephone [facility] ADULT DENTAL [address] [place] [address] Ayan Calvin, DMD [address] [place] [address] clarification of tx Social History Tobacco Use [...] Description 01/02/2025 8:30 AM EST Office Visit [facility] ADULT DENTAL [address] [place] [address] Heath Dougherty DDS [address] [place] [address] 03/06/2025 9:00 AM EST Office Visit [facility] MEDICINE [address] [place] [address] Name, MD Gregg [address] [place] [address] 07/02/2025 10:15 AM EDT Office Visit [facility] ADULT DENTAL [address] [place] [address] Faye Mi documented as of this encounter Visit Diagnoses Not on filedocumented in this encounter Additional Health Concerns Assessment Noted Time PHQ-9 Depression Total Score: 7 03/04/19 23 9:17 AM EST documented as of this encounter Care Teams Supportability Engineer Relationship Specialty Start Date End Date Name, MD Gregg [address] [place] [address] PCP - General Family Medicine 04/16/15 [facility] 05/23/24 documented as of this encounter
--- OUTSIDE RECORDS SUMMARY | 2024-12-22 18:43 | XMS_ITS | Data Portability ---
Author Organization [place] [facility], Allergy Address [address] [address] Assessment No assessment recorded. Plan of Treatment [...] Address Organization Details Recorded Time Impacted cerumen 62347082 Active 2014 Disorders of external ear: Impacted cerumen; Note: Date Diagnosed : 11/12/2014 9:15 PM (380.4) Not Available [facility] 4 02:41:52 Unilatera l sensorine ural hearing loss with unrestric peggy hearing on the contralat eral side Active 2014 Sensorine ural HL, unilatera l; Note: Date Diagnosed : 11/12/2014 9:56 PM (389.15) Not Available [facility] 4 02:41:44 Infective otitis externa 30494402 Active 2014 Acute otitis externa; Note: Date Diagnosed : 11/12/2014 9:55 PM (380.10) Not Available [facility] 4 02:41:48 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 hearing on the contralat eral side Active 2014 Mixed hearing loss, unilatera l; Note: Date Diagnosed : 11/12/2014 9:56 PM (389.21) Not Available [facility] 4 02:41:46 Infective otitis externa of left ear 05197492514 34877 Active 2014 Other infective otitis externa, left ear; Note: Date Diagnosed : 11/15/2014 4:59 PM (H60.392) Not Available [facility] 4 02:41:47 Impacted cerumen in left ear 69421460214 21593 Active 2014 Impacted cerumen, left ear; Note: Date Diagnosed : 11/15/2014 4:59 PM (H61.22) Not Available [facility] 4 02:41:51 Mixed conductiv e and sensorine ural hearing loss of left ear 65517774681 107 Active 2014 Mixed conductiv e and sensorine ural hearing loss, unilatera l, left ear, with unrestric peggy hearing on the contralat eral side; Note: Date Diagnosed : 11/15/2014 5:00 PM (H90.72) Not Available [facility] 4 02:41:46 Mixed conductiv e and sensorine ural hearing loss of right ear 67514400973 105 Active 2014 Mixed conductiv e and sensorine ural hearing loss, unilatera l, right ear, with unrestric peggy hearing on the contralat eral side; Note: Date Diagnosed : 11/15/2014 5:00 PM (H90.71) Not Available [facility] 4 02:41:49 Sensorine ural hearing loss 55937937 Active 2014 Sensorine ural hearing loss, unilatera l, right ear, with unrestric peggy hearing on the contralat eral side; Note: Date Diagnosed : 5 1:13 PM (H90.41) Not Available [facility] 4 02:41:50 Impacted cerumen of bilateral ears 33647534746 02332 Active 2015 Impacted cerumen, bilateral ; Note: Date Diagnosed : 08/12/2015 12:36 PM (H61.23) Not Available [facility] 4 02:41:46 Itching of skin 085693801 Active 2016 Other pruritus; Note: Date Diagnosed : 04/10/2016 11:46 AM (L29.8) Not Available [facility] 4 02:41:47 Dysphonia 38774483 Active 2016 Dysphonia ; Note: Date Diagnosed : 05/13/2016 10:26 AM (R49.0) Not Available [facility] 4 02:41:43 Chronic pharyngit is 900849 Active 2016 Chronic sore throat; Note: Date Diagnosed : 05/13/2016 10:24 AM (J31.2) Not Available [facility] 4 02:41:44 Dizziness and giddiness 085857780 Active 2016 Dizziness and giddiness ; Note: Date Diagnosed : 08/17/2016 1:43 PM (R42) Not Available [facility] 4 02:41:51 Sensorine ural hearing loss of bilateral ears 839347500 Active 2016 Sensorine ural hearing loss, bilateral ; Note: Date Diagnosed : 7 4:52 PM (H90.3) Sensori neural hearing loss, bilateral ; Note: Date Diagnosed : 08/12/2015 11:37 AM (H90.3) ; Start Date : 6 Not Available [facility] 4 02:41:48 Otorrhea of right ear 15646468547 55771 Active 2020 Otorrhea, right ear; Note: Date Diagnosed : 04/15/2020 9:41 AM (H92.11) Not Available [facility] 4 02:41:49 Benign paroxysma l positiona l vertigo 371173261 Active 2020 Benign paroxysma l vertigo, left ear; Note: Date Diagnosed : 1 9:47 AM (H81.12) Not Available [facility] 4 02:41:53 Problem Notes None [...] by mouth 03/20 completed Medicati on ID: [id number] Du ration Value: 7 Brand Name: Augmenti n Send Method: E-Prescr ibed Sub s Allowed: subs OK Medic ationGen ericName : Augmenti n Not Available Not Available Not Available Qvar 80 mcg/actua tion Metered Aerosol oral inhaler 03/20 completed Medicati on ID: [id number] D uration Value: 30 Brand Name: Qlulu [...] mg tablet 03/21 completed Medicati on ID: [id number] D uration Value: 30 Reason: () Brand Name: briandajaneth nikhil Garcia d Method: E-Prescr ibed Sub s Allowed: subs OK Medic ationGen ericName : perphena maytene Not Available Not Available Not Available ipratropi um 0.5 mg-albute rol 3 mg (2.5 mg base)/3 mL nebulizat ion soln 03/20 completed Medicati on ID: [id number] D uration Value: 7 Brand Name: ipratrop [...] 2 drop 03/20 completed Medicati on ID: [id number] Du ration Value: 7 Prescri bed By Name: Josue johnson MD Brand Name: Maxidex Send Method: E-Prescr ibed Sub s Allowed: subs OK [facility] Not Available [...] ear drops 03/20 completed Medicati on ID: [id number] Br and Name: Debrox S end Method: [...] 3 drop 03/20 completed Medicati on ID: [id number] D uration Value: 10 Brand Name: Pred [...] mg tablet 03/21 completed Medicati on ID: [id number] D uration Value: 28 Reason: () Brand Name: oxycodon e-acetam inophen Send Method: E-Prescr ibed Sub s Allowed: subs OK Medic ationGen ericName : oxycodon e-acetam inophen Not Available Not Available Not Available ofloxacin 0.3 % ear drops Apply 5 drop into both ears twice a day 03/20 completed Medicati on ID: [id number] D uration Value: 7 Brand Name: ofloxaci n Send Method: E-Prescr ibed Sub s Allowed: subs OK [facility] : ofloxaci n Not [...] mg tablet 12/22 completed Medicati on ID: [id number] Re ason: () Brand Name: Klonopin Send Method: E-Prescr ibed Sub s Allowed: subs OK [facility] : Klonopin Not Available Not Available Not Available meclizine 25 mg tablet TAKE 1 TABLET BY MOUTH TWICE DAILY NEEDED active Not Available Not Available No t Available baclofen 10 mg tablet 2018 active Medicati on ID: [id number] D uration Value: 30 Brand Name: baclofen Send Method: E-Prescr ibed Sub s Allowed: subs OK Speci al Instruct ion: TAKE 1 TABLET TWICE DAILY Me dication GenericN galindo: baclofen Not Available Not Available Not Available doxepin 100 mg capsule 09/30 completed Medicati on ID: [id number] Re ason: () Brand Name: doxepin Send Method: E-Prescr ibed Sub s Allowed: subs OK [facility] : doxepin Not Available [...] mcg tablet 03/21 completed Medicati on ID: [id number] D uration Value: 30 Reason: () Brand [...] for pain 03/21 completed Medicati on ID: [id number] Re ason: () Brand Name: oxycodon e Send Method: E-Prescr ibed Sub s Allowed: subs OK Medic ationGen ericName : oxycodon e Not Available Not Available Not Available Advair Diskus 250 mcg-50 mcg/dose powder for inhalatio n INHALE 1 PUFF BY MOUTH TWICE DAILY active Not Available Not Available No t Available clotrimaz ole 1 % topical solution 03/20 completed Medicati on ID: [id number] P dain rubio By Name: Josue johnson [...] elayed release 03/20 completed Medicati on ID: [id number] D uration Value: 30 Brand Name: omeprazo le Send Method: E-Prescr ibed Sub s Allowed: subs OK Speci al Instruct ion: TAKE 1 CAPSULE BY MOUTH EVERY DAY 30 MINUTES TO 1 HOUR BEFORE MEALS Me dication GenericN galindo: omeprazo le Not Available Not Available Not Available Cortispor in 3.5 mg/g-10,0 00 unit/g-0. 5 % topical cream 12/22 completed Medicati on ID: [id number] Re ason: () Brand Name: Cortispo rin Send Method: E-Prescr ibed Sub s Allowed: subs OK Medic ationGen ericName : Cortispo rin Not Available Not Available Not Available hydroxyzi ne HCl 25 mg tablet TAKE 1 TABLET BY MOUTH THREE TIMES DAILY NEEDED FOR ANXIETY active Not Available Not Available No t Available topiramat e 200 mg tablet 03/20 completed Medicati on ID: [id number] D uration Value: 30 Brand Name: topirama [...] mg tablet 03/20 completed Medicati on ID: [id number] D uration Value: 20 Brand Name: ibuprofe [...] left ear 03/20 completed Medicati on ID: [id number] D uration Value: 7 Brand Name: Cortispo [...] drops,rigo pension 03/20 completed Medicati on ID: [id number] D uration Value: 14 Brand Name: TobraDex Send Method: E-Prescr ibed Sub s Allowed: subs OK Speci al Instruct ion: Instill 3 drops in the affect ear BID for 10 days Med icationG enericNa me: TobraDex Not Available Not Available Not Available Flovent HFA 220 mcg/actua tion aerosol inhaler 03/20 completed Medicati on ID: [id number] D uration Value: 60 Brand Name: Flovent [...] as directed 03/20 completed Medicati on ID: [id number] D uration Value: 7 Brand Name: DermOtic [...] mcg capsule 11/12 completed Medicati on ID: [id number] Re ason: () Brand Name: Tirosint Send [...] Updated DateTime 03/20/2024 160.02 cm 30.8 kg/m2 68104.07 g Natacha Childs [facility] 03/20/2024 13:01:51 Date Recorded Body height Body mass index (BMI) Body weight Provider Name and Address Organization Details Last Updated DateTime 08/14/2024 160.02 cm 31.9 kg/m2 84944.63 g Natacha Childs [facility] 08/14/2024 12:59:51 Social History None recorded. Functional Status None recorded. Mental Status None recorded. Family History Nothing Reported. Medical History No medical history recorded. Gynecological HistoryNo gynecological history recorded. Obstetrics History GPAL:G 0 P 0 0 0 0 Past Encounters Encounter ID Performer Location Encounter Start Date Encounter Closed Date Diagnosis/Indication Diagnosis SNOMED-CT Code Diagnosis ICD10 Code Diagnosis IMO Codes Diagnosis Note [id number] JOSUE SHEPHERD MD [facility] [address] [phone] 03/20/2024 12:52:27 03/20/2024 13:16:19 Impacted cerumen of bilateral ears 7295734495 132360 H61.23 She has very narrow canals and gets debris impacted against the TM bilaterall y. Cerumen removed and tolerated well. [id number] JOSUE SHEPHERD MD [facility] [address] [address] 08/14/2024 12:21:01 08/14/2024 13:07:51 Impacted cerumen of bilateral ears 0290517149 700812 H61.23 She has very narrow canals and [...] Schrader Member ID Guarantor Name 12/16/[address] [facility] - DOS ON OR AFTER 2022 - GROUP HOME OPTIONS AND ONE CARE (MEDICARE REPLACEMENT/AD VANTAGE - PPO) Mag Ayala [id number] Mag Ayala 12/15/2024 1 MEDICAID-[place]: [facility] Mag Ayala [id number] Mag Ayala Notes Date Note Type Note Provider Name and Address Organization Details Recorded Time 03/20/2024 text/html Dizziness now and then, having some ear itching. JOSUE SHEPHERD MD [address] [place] [address], [phone], [place] - [facility] 03/20/2024 17:18:34 08/14/2024 text/html 63-year-old female presents today for routine ear cleaning. She has chronic pruritus. Spinal stenosisKnee pain JOSUE SHEPHERD MD [address] [place] [address], [phone], [place] - [facility] 08/15/2024 09:20:47 OBGyn Episode No OBEpisode recorded.
--- OUTSIDE RECORDS SUMMARY | 2024-12-22 18:43 | XMS_ITS | Encounter Summary ---
Author Organization [employer] Address [address] 7[address] [place] [address] Care Team Providers Care Financial Analyst Name Role Phone Name, Gregg DIAMOND Primary Care Provider [phone] Reason for Visit * Reason Comments Med Refill Encounter Details Date Type Department Care Team ([facility] st Contact Info) Description 08/03/2023 Refill [facility] MEDICINE [address] [place] [address] Name, MD Gregg [address] [place] [address] Social History Tobacco Use Types Packs/Day Years [...] 8:30 AM EST Office Visit [facility] ADULT DENTAL [address] [place] [address] Heath Dougherty DDS [address] [place] [address] 03/06/2025 9:00 AM EST Office Visit [facility] MEDICINE [address] [place] [address] Name, MD Gregg [address] [place] [address] 07/02/2025 10:15 AM EDT Office Visit [facility] ADULT DENTAL [address] [place] [address] Faye Mi documented as of this encounter Visit Diagnoses Not on filedocumented in this encounter Additional Health Concerns Assessment Noted Time PHQ-9 Depression Total Score: 7 03/04/19 23 9:17 AM EST documented as of this encounter Care Teams Financial Analyst Relationship Specialty Start Date End Date NameGregg MD [address] [place] [address] PCP - General Family Medicine 04/16/15 [facility] 05/23/24 documented as of this encounter
--- OUTSIDE RECORDS SUMMARY | 2024-12-22 18:43 | XMS_ITS | Encounter Summary ---
Author Organization [employer] Address [address] [facility] 7t [place] [address] Care Team Providers Care Horticultural Specialty Grower Name Role Phone Name, Gregg DIAMOND Primary Care Provider [phone] Encounter Details Date Type Department Care Team (Latest Contact Info) Description 09/27/2018 Abstract [facility] CONVERSIONS Dental, Provider, DDS Social [...] Description 01/02/2025 8:30 AM EST Office Visit [facility] ADULT DENTAL [address] [place] [address] Heath Dougherty DDS [address] [place] [address] 03/06/2025 9:00 AM EST Office Visit [facility] MEDICINE [address] [place] [address] Name, MD Gregg [address] [place] [address] 07/02/2025 10:15 AM EDT Office Visit [facility] ADULT DENTAL [address] [place] [address] Faye Mi documented as of this encounter Visit Diagnoses Not on filedocumented in this encounter Care Teams Horticultural Specialty Grower Relationship Specialty Start Date End Date Name, MD Gregg [address] [place] [address] PCP - General Family Medicine 04/16/15 [facility] 05/23/24 documented as of this encounter
--- OUTSIDE RECORDS SUMMARY | 2024-12-22 18:43 | XMS_ITS | Encounter Summary ---
Author Organization [employer] Address [address] [address] [facility] [place] [address] Care Team Providers Care Laundry Clerk Name Role Phone Name, Gregg DIAMOND Primary Care Provider [phone] Reason for Visit * Reason Onset Date Comments Dr. Marixa chatman back from lab?? 08/31/2024 Encounter Details Date Type Department Care Team ([facility] Contact Info) Description 08/31/2024 Telephone [facility] ADULT DENTAL [address] [place] [address] Ayan Calvin, DMD [address] [place] [address] Dr. Marixa chatman back from lab?? Social [...] appt. Sent to both provider and front end web developer * Telephone Encounter - Nataliia Jalloh - [...] for delivery. Also message sent to front end web developer documented in this encounter Plan of Treatment Upcoming Encounters Date Type Department Care Team (Late st Contact Info) Description 01/02/2025 8:30 AM EST Office Visit [facility] ADULT DENTAL [address] [place] [address] Heath Dougherty DDS [address] [place] [address] 03/06/2025 9:00 AM EST Office Visit [facility] MEDICINE [address] [place] [address] Name, [place] [address] 07/02/2025 10:15 AM EDT Office Visit [facility] ADULT DENTAL [address] [place] [address] Faye Mi documented as of this encounter Visit Diagnoses Not on filedocumented in this encounter Additional Health Concerns Assessment Noted Time PHQ-9 Depression Total Score: 1 07/18/19 11:20 AM EDT documented as of this encounter Care Teams Laundry Clerk Relationship Specialty Start Date End Date Name, [place] [address] PCP - General Family Medicine 04/16/15 [facility] 05/23/24 documented as of this encounter
--- OUTSIDE RECORDS SUMMARY | 2024-12-22 18:43 | XMS_ITS | Encounter Summary ---
Author Organization [employer] Address [address] [facility] 7t [place] [address] Care Team Providers Care Laborer Plumbing Name Role Phone Name, Gregg DIAMOND Primary Care Provider Encounter Details Date Type Department Care Team (Late Contact Info) Description 07/20/2022 Abstract [facility] MEDICINE [address] [place] [address] Name, MD Gregg [address] [place] [address] Social History Tobacco Use Types Packs/Day Years [...] 8:30 AM EST Office Visit [facility] ADULT DENTAL [address] [place] [address] [phone] Heath Dougherty DDS [address] [place] [address] 03/06/2025 9:00 AM EST Office Visit [facility] MED[facility]INE [address] [place] [address] [place] [address] Name, MD Gregg [address] [facility] [place] [address] 07/02/2025 10:15 AM EDT Office Visit [facility] ADULT DENTAL [address] [facility] [place] [address] Faye Mi documented as of this encounter [...] documented as of this encounter Care Teams Laborer Plumbing Relationship Specialty Start Date End Date Name, [place] [address] PCP - General Family Medicine 04/16/15 [facility] 05/23/24 documented as of this encounter
--- OUTSIDE RECORDS SUMMARY | 2024-12-22 18:43 | XMS_ITS | Encounter Summary ---
Author Organization [employer] Address [address] 7[address] [place] [address] Care Team Providers Care Group Work Program Aide Name Role Phone Name, Gregg DIAMOND Primary Care Provider Encounter Details Date Type Department Care Team (Late st Contact Info) Description 05/24/2024 Telephone [facility] MEDICINE [address] [place], [place] [phone] Name, MD Gregg [address] [place] [address] Social History Tobacco Use Types Packs/Day Years [...] Description 01/02/2025 8:30 AM EST Office Visit [facility] ADULT DENTAL [address] [place] [address] Heath Dougherty DDS [address] [place] [address] 03/06/2025 9:00 AM EST Office Visit [facility] MEDICINE [address] [place] [address] Name, MD Gregg [address] [place] [address] 07/02/2025 10:15 AM EDT Office Visit [facility] ADULT DENTAL [address] [place] [address] Faye Mi documented as of this encounter Visit Diagnoses Not on filedocumented in this encounter Additional Health Concerns Assessment Noted Time PHQ-9 Depression Total Score: 0 09/01/19 24 10:42 AM EDT documented as of this encounter Care Teams Group Work Program Aide Relationship Specialty Start Date End Date Name, MD Gregg [address] [place] [address] PCP - General Family Medicine 04/16/15 [facility] 05/23/24 documented as of this encounter
--- OUTSIDE RECORDS SUMMARY | 2024-12-22 18:43 | XMS_ITS | Encounter Summary ---
Author Organization [employer] Address [address] [place] [address] Care Team Providers Care Customer Associate Name Role Phone Name, Gregg DIAMOND Primary Care Provider [phone] Reason for Visit * Reason Onset Date Comments Durable Medical Equipment 12/08/2024 Encounter Details Date Type Department Care Team ([facility] st Contact Info) Description 12/08/2024 Telephone [facility] MEDICINE [address] [place] [address] Name, MD Gregg [address] [place] [address] Durable Medical Equipment Social History Tobacco Use [...] prior message. Any questions contact pt at [phone] * Telephone Encounter - Gregg Orta - 12/08/2024 9:33 AM EDT Tc from pt reporting that the shower chair has broke and will need a new one [facility]. Any questions contact pt at [phone] documented in this encounter Plan of Treatment Upcoming Encounters Date Type Department Care Team (Late st Contact Info) Description 01/02/2025 8:30 AM EST Office Visit [facility] ADULT DENTAL [address] [place] [address] Heath Dougherty DDS [address] [place] [address] 03/06/2025 9:00 AM EST Office Visit [facility] MEDIC[facility] [address] [facility] [place] [address] Name, MD Gregg [address] [place] [address] 07/02/2025 10:15 AM EDT Office Visit [facility] ADULT DENTAL [address] [place] [address] Faye Mi documented as of this encounter Visit Diagnoses Not on filedocumented in this encounter Additional Health Concerns Assessment Noted Time PHQ-9 Depression Total Score: 1 07/18/19 11:20 AM EDT documented as of this encounter Care Teams Customer Associate Relationship Specialty Start Date End [place] [address] PCP - General Family Medicine 04/16/15 [facility] 05/23/24 documented as of this encounter
--- OUTSIDE RECORDS SUMMARY | 2024-12-22 18:43 | XMS_ITS | Encounter Summary ---
Author Organization [employer] Address [address] [facility] [address] [address] [place] [address] Care Team Providers Care Yarn Texture Machine Operator Name Role Phone Name, Gregg DIAMOND Primary Care Provider [phone] Reason for Visit * Reason Onset Date Comments Appointment Request 04/18/2024 Encounter Details Date Type Department Care Team ([facility] st Contact Info) Description 04/18/2024 Telephone [facility] MEDICINE [address] [place] [address] Name, MD Gregg [address] [place] [address] Appointment Request Social History Tobacco Use Types [...] PCP. Pt states will be out of [place] from June 18- as she has an appointment with the oncologist on the and with the neurosurgeon on June 27. documented in this encounter Plan of Treatment Upcoming Encounters Date Type Department Care Team (Late st Contact Info) Description 01/02/2025 8:30 AM EST Office Visit [facility] ADULT DENTAL [address] [place] [address] Heath Dougherty DDS [address] [place] [address] 03/06/2025 9:00 AM EST Office Visit [facility] MEDICINE [address] [place] [address] Name, MD Gregg [address] [place] [address] 07/02/2025 10:15 AM EDT Office Visit [facility] ADULT DENTAL [address] [place] [address] Faye Mi documented as of this encounter Visit Diagnoses Not on filedocumented in this encounter Additional Health Concerns Assessment Noted Time PHQ-9 Depression Total Score: 0 09/01/19 24 10:42 AM EDT documented as of this encounter Care Teams Yarn Texture Machine Operator Relationship Specialty Start Date End Date Name, MD Gregg [address] [place] [address] PCP - General Family Medicine 04/16/15 [facility] 05/23/24 documented as of this encounter
--- OUTSIDE RECORDS SUMMARY | 2024-12-22 18:43 | XMS_ITS | Continuity of Care Document ---
Author Organization [place] - [employer] [facility], [facility] Address [address] [place] [address] Care Team Providers Care Marketing Summer Intern Name Role Phone HIM CCA OTHER NAME, CUAUHTEMOC Primary Care Provider Assessment Encounter Date Assessment Date Assessment LastModified by Organization Details LastModified Time 12/22/2024 12/22/2024 Evaluation in the field was performed by my commissioner of relocation services colleague, as noted above, I provided real-time direction and supervision for this visit. This is a 64yo F presenting with left shoulder pain going on for months. She is due to have an MRI for diagnostics but in the meantime hasn't been taking anything, has just been trying to lie in certain positions for comfort. Family says she was taken off her anti-inflammator y medication Celebrex and also gabapentin because of her thyroid but also aren't clear why, say you'd have to ask the chief scientific officer. Has not tried ice/heat, acetaminophen, or anything else topical. PE: General: Awake & alert, NAD Respiratory: Chest rise equal bilat, no increased wob CV: Regular rate, normal peripheral perfusion MSK: LUE: ROM intact. No gross deformity. EKG: Sinus tachycardia, rate of 103. No STEMI. Impression: Left shoulder pain Plan: -VSS, appears well -Apparently has chronic shoulder pain for which 1,000mg acetaminophen was ordered. I can't find confirmation of whatever hematologic issue she might have that would prevent her from taking NSAIDs. -EKG ordered due to left shoulder pain which prompted patient to disclose she's been having chest pain for a few days. Does not have chest pain right now, however. EKG is nonischemic. -Patient is agreeable to ED evaluation but wants to take a bath first. Then she will drive herself to [place] ED. Disposition: Transport to ED [email or web address] Not available 12/22/2024 16:22:15 Plan of Treatment Reminders Order Date Submit Date Provider Last Modified By Organization Details Last Modified Time Details Appointments Urgent Care 2024 03:34P M Natacha Dietrich MD Not available Not available Not available Lab None recorded. Referral None recorded. Procedures None recorded. Surgeries None recorded. [facility]ca [facility]diogram [facility]24 [facility] [address] [place] [address], [phone] 12/22/2024 16:22:35 Medication Orders acetamino phen 500 mg tablet 2024 025 [email or web address] [facility], [address] [place] [address], [id number], 12/22/2024 15:39:44 Patient TargetsNo targets recorded. Patient InstructionsNo instructions recorded. Reason for Referral None Reported. Results Created Date Observation Date Name Description Value Unit Range Abnormal Flag Note LastModifiedBy Organization Detail LastModifiedTime 12/23/1912/22/2024 caleb kam am No observ ation record ed. [email or web address] [address], [address] 12/22/2024 17:33:19 Result Notes None recorded. Problems Name Problem SNOMED Code Status Onset Date Resolution Date Notes Provider Name and Address Organization Details Recorded Time Benign intracran ial hypertens ion 49963714 Active 2011 Loki Barajas MD [address] [place] [address],[address], [place], [address], [employer] 18:36:13 Mixed anxiety and depressiv e disorder 506072284 Active 2011 Loki Barajas MD [address] [place] [address],[address], [place], [address], [employer] 18:37:21 Hypertens wanda disorder 91117540 Active 2011 Loki Barajas MD [address] [place] [address],[address], [place], [address], [employer] 18:36:41 Morbid obesity 622468414 Active 2011 Loki Barajas MD [address] [place] [address],[address], [place], [address], [place] [employer] 18:36:22 Obstructi ve sleep apnea syndrome 31064726 Active 2012 Loki Barajas MD [address] [place] [address],[address], [place], [address], [place] [employer] 18:36:34 Asthma 623284867 Active 2012 Loki Barajas MD [address] [place] [address],[address], [place], [address], [place] [employer] 18:37:24 History of adrenalec gerri 025446914104 106 Active 2012 Loki Barajas MD [address] [place] [address],[address], [place], [address], [place] [employer] 18:37:15 Mixed conductiv e and sensorine ural hearing loss of right ear 462793907703 05 Active 2014 Mixed conductiv e and sensorine ural hearing loss, unilatera l, right ear, with unrestric peggy hearing on the contralat eral side; Note: Date Diagnosed : 11/15/2014 5:00 PM (H90.71) Loki Barajas MD [address] [place] [address],[address], [place], [address], [place] [employer] 18:37:04 History of bypass of stomach 766062167 Active 2015 Loki Barajas MD [address] [place] [address],[address], [place], [address], [place] [employer] 18:37:18 Migraine 84438819 Active 2017 Loki Barajas MD [address] [place] [address],[address], [place], [address], [place] [employer] 18:36:38 Osteoporo sis 14162471 Active 2021 Loki Barajas MD [address] [place] [address],[address], [place], [address], [employer] 18:36:25 Vertigo 741854040 Active 2021 Loki Barajas MD [address] [facility],[address], [place], [address], [employer] 18:36:44 Dental caries 92304674 Active 2023 Loki Barajas MD [address] [facility],[address], [place], [address], [employer] 18:36:56 Osteoarth ritis of right knee joint 801697245457 100 Active 2024 Loki Barajas MD [address] [facility],[address], [place], [address], [employer] 18:36:50 Problem Notes None recorded. Medical Equipment None Reported. Allergies Allergen ID Allergen Name Allergen Category Reaction Reaction Severity Criticality Documentation Date Start Date Code Code System Note Provider Name and Address Organization Details Recorded Time 93265 Nubain medicatio n Not available Not available Not available 05/19/2024 7550 RxNorm Not Available [employer] 15:03:10 26629 tramadol medicatio n Not available Not available Not available 06/07/2024 01765 RxNorm Not Available [employer] 17:33:16 03301 nal[place] e medicatio n anaphylax is dyspnea Not available Not available [facility] 09/22/20242011 7238 RxNorm Loki Barajas MD [address] [facility],[address], [place], [address], [employer] 18:34:01 Medications Name Sig Start Date Stop [...] oximetry Heart rate Respiratory rate Body temperature Body weight Body height Systolic And Diastolic Provider Name and Address Organization Details Last Updated DateTime 98 % 98 % 95 /min 18 /min 98.1 [degF] 27875.6 4 g 160.02 cm 118/78 mm[Hg] Not Available [employer] 15:34:05 Social History None recorded. Functional Status None recorded. Mental Status None recorded. Family History Nothing Reported. Medical History No medical history recorded. Gynecological HistoryNo gynecological history recorded. Obstetrics History GPAL:G 0 P 0 0 0 0 Past Encounters Encounter ID Performer Location Encounter Start Date Encounter Closed Date Diagnosis/Indication Diagnosis SNOMED-CT Code Diagnosis ICD10 Code Diagnosis IMO Codes Diagnosis Note [id number] Natacha Dietrich MD [facility] [address] [address] 12/22/2024 15:34:01 12/22/2024 16:42:43 Pain of left shoulder region 4836907533 M25.512 53153225 Chest pain 10413823 R07. 9 [id number] Health Concerns Section Related Observation LastModified by Organization Detai ls LastModified Time None Recorded Concern Status LastModified by Organization Details LastModified Time None Recorded Payers Encounter Date Sequence Insurance Name Policy Number Policy Schrader Covered Member ID Schrader Member ID Guarantor Name 12/22/2024 1 [facility] - DOS ON OR AFTER 2022 - DUAL ELIGIBLE - CARE HOME OPTIONS AND ONE CARE (MEDICARE REPLACEMENT/ADV ANTAGE - HMO) Mag Ayala [id number] Mag Ayala Notes Date Note Type Note Provider Name and Address Organization Details Recorded Time 12/22/2024 text/html ROS as noted in the [facility] Nurse Triage Notes (Suri Benavides): Reason For Request: shoulder pain from fall Denies: Falls with head strike and LOC [...] Disease, Ulcerative Colitis), Cancer PMH Reviewed at 12/22/2024: Allergies Reviewed at 12/22/2024 - :59 Pain Assessment: Level 10 out of 10 Comments: 64 y.o female complains of Extremity Pain Has seen orthopedic, written for MRI. Waiting for insurance to approve. Previously prescribed celecoxib and gabapentin - not taking due to MD order. 11/15 - significant fall in [place], fell on the corner of concrete into the exterior wall of a house. No obvious wounds. Pain usually controllable by heat but today pain is significant. No PRNs, using heating pad. Rating pain 10/10. Not on anticoagulation. Denies kidney issues. I provided information on the mobile health provider response time and advised the patient and/or caregiver to monitor reported signs and symptoms. I discussed the warning signs of when to seek emergency care. ...................... ...................... ...................... ...................... ...................... ...................... ......... Medical Case Manager Note From James Britt: [place] the home of a 64-year-old female patient whose chief complaint is shoulder pain after having a fall at the beginning of November. Patient is in nine out of 10 shoulder pain and is waiting for insurance to clear an MRI and potential surgery. Patient is alert and oriented times four, no facial droop, no slurring, no noticeable Neuro deficits. Patient is tacky, but has a strong and regular pulse rate. Patient has no peripheral edema. Patient does report substernal chest pain happening over the last few days. Patient denies any shortness of breath, and lungs sound clear bilaterally. Patient skin is warm and dry and have an appropriate color. Patient has been eating and drinking well. At this visit, patient had her vitals taken, and was fully assessed. [facility] was contacted and educated the patient on using ice, heat and NSAIDs to help with the pain in her shoulder, and to also use Bio [employer]. Pt was given 1000mg of acetaminophen po. Doctor wanted EKG taken, and this is when the patient endorsed substernal chest pain over the last few days. At this point an EKG was taken. [facility] was contacted with the new information and recommended the patient go to the hospital for a full cardiac evaluation. Patient was hesitant but agreed to go to [facility] after she ate something and took a bath. Patient was warned of what could happen if she waited in contact 911 immediately should she have any issues. [facility] Lab Orders: electrocardiogram: Performed [facility] Medication Orders: acetaminophen 500 mg tablet: Performed ...................... ...................... ...................... ...................... ...................... ...................... ......... [facility] Consulted: Natacha Dietrich ...................... ...................... ...................... ...................... ...................... ...................... ......... Disposition: Fulfilled Natacha Dietrich MD [address] [place] [address],[facility], [place], [address], [employer] 12/22/2024 16:42:40 OBGyn Episode No OBEpisode recorded.
--- OUTSIDE RECORDS SUMMARY | 2024-12-22 18:43 | XMS_ITS | Encounter Summary ---
Author Organization [email or web address] Address [address] [facility] [address] [place] [address] Care Team Providers Care Piping Supervisor Name Role Phone Name, Gregg DIAMOND Primary Care Provider [phone] Encounter Details Date Type Department Care Team (Late st Contact Info) Description 01/14/2022 Abstract [facility] [address] [place] [address] Dental, Provider, DDS Social History Tobacco Use [...] [facility] [address] [place] [address] Heath Dougherty DDS [address] [place] [address] 03/06/2025 9:00 AM EST Office Visit [facility] MED[facility] [address] [place] [address] NameGregg MD [address] [place] [address] 07/02/2025 10:15 AM EDT Office Visit [facility] [address] [place] [address] Mi, Faye documented as of this encounter [...] on filedocumented in this encounter Care Teams Piping Supervisor Relationship Specialty Start Date End Date Name, MD Gregg [address] [place] [address] PCP - General Family Medicine 04/16/15 [facility] 05/23/24 documented as of this encounter
--- OUTSIDE RECORDS SUMMARY | 2024-12-22 18:43 | XMS_ITS | Encounter Summary ---
Author Organization [employer] Address [address] [facility] 7[address] [place] [address] Care Team Providers Care Nozzle Tender Name Role Phone Name, Gregg DIAMOND Primary Care Provider [phone] Encounter Details Date Type Department Care Team (Latest Contact Info) Description 12/25/2019 Abstract [facility] CONVERSIONS Dental, Provider, DDS Social History [...] Care Team ( st Contact Info) Description 01/02/2025 8:30 AM EST Office Visit [facility] ADULT [facility]ENTAL [address] [place] [address] Heath Dougherty DDS [address] [place] [address] 03/06/2025 9:00 AM EST Office Visit [facility] MED[facility] [address] [place] [address] Name, MD Gregg [address] [place] [address] 07/02/2025 10:15 AM EDT Office Visit [facility] [address] [place] [address] Faye Mi documented as of this encounter Visit Diagnoses Not on filedocumented in this encounter Care Teams Nozzle Tender Relationship Specialty Start Date End Date Name, MD Gregg [address] [place] [address] PCP - General Family Medicine 04/16/15 [facility] 05/23/24 documented as of this encounter
--- OUTSIDE RECORDS SUMMARY | 2024-12-22 18:43 | XMS_ITS | Encounter Summary ---
Author Organization [employer] Address [address] [facility] [address] [place] [address] Care Team Providers Care Header Up Name Role Phone Name, Gregg DIAMOND Primary Care Provider [phone] Reason for Visit * Reason Onset Date Comments Medication Question 09/04/2024 Encounter Details Date Type Department Care Team ([facility] Contact Info) Description 09/04/2024 Telephone [facility] [address] [place] [address] Name, MD Gregg [address] [place] [address] Medication Question Social History Tobacco Use Types [...] increase dosage of zepbound. Contact pt at [phone] for any questions. documented in this encounter Plan of Treatment Upcoming Encounters Date Type Department Care Team ([facility] st Contact Info) Description 01/02/2025 8:30 AM EST Office Visit [facility] [address] [place] [address] Heath Dougherty DDS [address] [place] [address] 03/06/2025 9:00 AM EST Office Visit [facility] [address] [place] [address] Name, MD Gregg [address] [place] [address] 07/02/2025 10:15 AM EDT Office Visit [facility] [address] [place] [address] Faye Mi documented as of this encounter Visit Diagnoses Not on filedocumented in this encounter Additional Health Concerns Assessment Noted Time PHQ-9 Depression Total Score: 1 07/18/19 11:20 AM EDT documented as of this encounter Care Teams Header Up Relationship Specialty Start Date End Date Name, MD Gregg [address] [place] [address] PCP - General Family Medicine 04/16/15 [facility] 05/23/24 documented as of this encounter
[2024-12-22 18:51] LABS: Alanine Aminotransferase 25 U/L (0-31); Albumin Level 4.1 g/dL (3.5-5.0); Alkaline Phosphatase 83 U/L (39-117); Anion Gap 12 (12-20); Aspartate Amino Transferase 25 U/L (5-31); Blood Urea Nitrogen 18 mg/dL (9-16); Calcium 9.3 mg/dL (8.4-10.2); Carbon Dioxide 28 mmol/L (22-29); Chloride 101 mmol/L (96-108); Creatinine Clr Calc Pharmacy 61.1; Estimated Glomerular Filt Rate > 60; Potassium 4.0 mmol/L (3.3-5.1); Sodium 137 mmol/L (135-145); Total Protein 7.4 g/dL (6.5-8.0)
[2024-12-22 18:59] LABS: Troponin-I High Sensitivity < 2.7 ng/L (<3.5-17.0)
[2024-12-22 19:29] VITALS: BP 113/76; PULSE 88; RESP 18; O2SAT 98
[2024-12-22 20:07] LABS: D Dimer High Sensitivity 263 NG/ML
[2024-12-22 20:16] LABS: Troponin-I High Sensitivity < 2.7 ng/L (<3.5-17.0)
[2024-12-22 20:55] VITALS: BP 130/82; PULSE 87; RESP 18; TEMP 36.7; O2SAT 98
[2024-12-22 20:56] VITALS: BP 130/82; PULSE 87; RESP 18; TEMP 36.7; O2SAT 98
== END 2024-12-22 20:56 | disposition home or self-care (01) ==
PROVIDERS: Physician Assistant Medical; Emergency Provider Emergency Medicine Emergency Medical Services; PCP Internal Medicine Geriatric Medicine
DX: R07.89 Other chest pain (principal); M25.512 Pain in left shoulder; Z79.899 Other long term (current) drug therapy
CPT/HCPCS: 36415; 71046; 80048; 80076; 84484; 85025; 85379; 93005; 99284

== ENCOUNTER → 2024-12-22 18:11 | Outpatient (BNV) | payer OTHER, SELFPAY | PROVIDERS: Emergency Provider Emergency Medicine Emergency Medical Services; PCP Internal Medicine Geriatric Medicine; Visit Provider Internal Medicine Cardiovascular Disease | DX: R94.31 Abnormal electrocardiogram [ECG] [EKG] (principal); R07.9 Chest pain, unspecified | CPT/HCPCS: 93010 ==

== ENCOUNTER → 2024-12-22 18:11 | Outpatient (BNV) | payer OTHER, SELFPAY | PROVIDERS: PCP Internal Medicine Geriatric Medicine; Visit Provider Student in an Organized Health Care Education/Training Program | DX: R07.9 Chest pain, unspecified (principal) | CPT/HCPCS: 71046 ==

== ENCOUNTER → 2025-01-22 09:30 | Outpatient (BNV) | payer OTHER, SELFPAY | PROVIDERS: PCP Internal Medicine Geriatric Medicine; Visit Provider Radiology Diagnostic Radiology | DX: S46.012A Strain of muscle(s) and tendon(s) of the rotator cuff of left shoulder, initial encounter (principal); M75.52 Bursitis of left shoulder | CPT/HCPCS: 73221 ==

== ENCOUNTER 2025-01-22 09:50 | Outpatient (REF) | payer OTHER, SELFPAY ==
--- NOTE | ~2025-01-22 | MR_ITS ---
EXAMINATION: MRI Shoulder without contrast, left TECHNIQUE: Multiplanar multisequence MR imaging through an upper extremity joint without contrast. INDICATION: November 2024 patient fell and arm got stuck between concrete wall, limited range of motion and pain since then PRIOR: X-ray 12/13/2024 FINDINGS: Rotator Cuff: There is a full-thickness tear of supraspinatus tendon with 2 cm retraction. Tear extends into anterior fibers of infraspinatus tendon. Subscapularis tendon appears thin laterally (axial PD fat-sat image 01/09)?A deep bursal sided partial-thickness tear. Labrum: Superior labrum is torn and frayed. Long biceps tendon: Long biceps tendon is torn off of the labrum and distally retracted. The tendon is not clearly seen in the biceps groove. Acromioclavicular joint: AC joint is degenerated with marginal osteophytes and mild reactive marrow signal. There is superior acromioclavicular ligament thickening. Acromial morphology is curved, type II. There is mildly increased slightly complex synovial fluid in the subacromial subdeltoid bursa. There is a small subacromial spur. Axillary pouch: The axillary pouch is intact. Articular cartilage: There is a full-thickness articular cartilage defect in this central glenoid with adjacent reactive marrow signal. There is deep partial full-thickness articular cartilage loss in the superior lateral humeral head. Bones/Marrow: Degenerative cystic changes present in the greater tuberosity. Soft tissues: There is no muscle edema. There is mild fatty streaking from deconditioning. MR/MR shoulder LT wo con IMPRESSION: There is a full-thickness tear super space tendon with 2 cm retraction. Tear extends into anterior fibers of infraspinatus tendon. There is a possible deep partial-thickness bursal sided tear of subscapularis tendon. Long biceps tendon is torn and distally retracted. The superior labrum is essentially absent consistent with a degenerative tear. There is a small focal full-thickness articular cartilage defect in central glenoid with reactive marrow signal change. There is also deep partial to full-thickness cartilage loss in the superior humeral head. There is mild/moderate AC joint arthropathy. Acromion has a curved morphology. There is a small subacromial spur. There is a mildly complex subacromial subdeltoid bursal effusion. There is mild deconditioning of the left shoulder musculature. Electronically signed by: Kaushal Moraes MD 01/22/2025 10:49 AM [employer]
== END 2025-01-22 09:51 | disposition home or self-care (01) ==
LOC: HO.MRI 09:50
PROVIDERS: PCP Internal Medicine Geriatric Medicine; Visit Provider Physician Assistant
DX: S46.009A Unspecified injury of muscle(s) and tendon(s) of the rotator cuff of unspecified shoulder, initial encounter (principal)
CPT/HCPCS: 73221

== ENCOUNTER 2025-01-26 13:04 | Outpatient (AMB) | payer OTHER, SELFPAY ==
[2025-01-26 13:20] VITALS: BP 122/66; PULSE 82
--- NOTE | 2025-01-26 13:20 | A.OFFVIS_ITS ---
Vital Signs 01/26/25 13:20 Height 5 ft 3 in BMI Reason not done Patient refused/unable BP 122/66 Blood Pressure Location Lt brachial Position Sitting Pulse 82 Pulse Source Pulse Oximeter Intake Visit Reasons: ED follow up Allergies nalbuphine (From N[facility]) Allergy (Severe, Verified 12/22/24 18:11) Anaphylaxis tramadol Adverse Reaction (Verified 12/22/24 18:11) itchy Medication List - Last Reconciled 01/26/25 by Ralph Ortiz NP acetaminophen (Tylenol) 650 mg (2 x 325 mg) PO Q6H PRN albuterol sulfate 90 mcg/actuation (Ventolin HFA) 2 puffs PO Q6H PRN 30 days albuterol sulfate 2.5 mg (3 mL) inhalation Q4H PRN alendronate 70 mg PO TU cetirizine 10 mg PO DAILY PRN cholecalciferol (vitamin D3) 25 mcg PO DAILY cyclobenzaprine 10 mg PO Q8H doxepin 75 mg PO BEDTIME estazolam 3 mg PO BEDTIME fluticasone propion-salmeterol 250-50 mcg/dose 1 ea PO BID ibuprofen 800 mg PO Q8H PRN levothyroxine 100 mcg PO DAILY@0600 lidocaine 5% 1 patch topical DAILY lorazepam 0.5 mg PO BID PRN 1 day magnesium oxide 400 mg PO DAILY@1200 meclizine (Dramamine Less Drowsy) 25 mg PO TID PRN omeprazole 40 mg PO DAILY@0630 polyethylene glycol 3350 (Miralax) 17 grams PO DAILY pyridoxine (vitamin B6) 200 mg PO DAILY@1200 tirzepatide (weight loss) (Zepbound) mg subcut QWEEK venlafaxine mg PO HPI Comments Details: This is a 64-year-old female patient new to our office referred by emergency room for further evaluation of chest pain and palpitations. Moving forward, patient will be under the care of Dr. [place] [facility]. Patient states that she was following [facility] 2 years ago for labile blood pressures and chest pain. Patient states that she also had a syncopal episode around that time where they had done Holter studies that showed not then per patient. No records at this time. Patient reports ongoing intermittent chest discomfort that feels like a tightness under her left breast. Patient states that this can happen random in nature and reports that sometimes it feels like a punch to the chest sometimes reproducible as well. Patient also reports intermittent palpitations in his overall worried about her cardiac health. Patient is mostly sedentary and presents today in a wheelchair due to history of several falls, spinal stenosis and knee issues. Patient is otherwise denying any symptoms of dizziness, orthopnea, PND, leg edema, presyncope or syncope. Patient denies any known history of coronary artery disease, ischemic disease, or cardiomyopathy. Patient does note that she has a significant family history of coronary artery disease. [facility] Medical History Diverticulosis of colon Right shoulder injury Kidney calculi Nausea & vomiting Bronchitis Close exposure to 2019-nCoV Strain of tendon of medial thigh muscle Easy bruising Hoarseness Dizziness Clostridium difficile infection Osteoarthritis of right knee Sciatica, left side Osteoarthritis of left knee Bilateral hip pain Urinary retention Painful urination Sleep apnea Somnolence, daytime Obesity (BMI 30-39.9) Migraine Syncope Pseudotumor cerebri Crystal arthropathy Kidney tumor COVID-19 vaccine administered Thyroid disease Colon polyp Bronchial asthma Acid reflux Surgical History Status post gastric bypass for obesity Status post excision of lipoma (09/10/23) History of esophagogastroduodenoscopy (EGD) History of surgery on wrist History of hysterectomy Previous section Hx laparoscopic cholecystectomy Hx of colonoscopy Family History Father Heart disease History of open heart surgery Mother Heart disease Social History Household Members: None Household Members Other:: alone Are you a primary primary care sales representative to a significant other at home: No Do you presently have visiting nurse or other home services: No Alcohol intake: never Patient Tobacco Use Status: Former Tobacco user Tobacco use type: Cigarette service: No Current occupational status: disabled Review of Systems Const Denies weakness ENT Denies dizziness Card Denies chest pain, Denies chest pain with activity, Denies syncope, Denies rapid heart rate, Denies pedal edema, Denies edema, Denies leg edema, Denies lightheadedness, Reports palpitations, Reports dyspnea, Denies dyspnea on exertion and Denies orthopnea Resp Denies cough, Reports dyspnea and Denies dyspnea on exertion GI Denies hematochezia and Denies change in stool character Musc Denies abnormal gait, Denies muscle cramps, Denies muscle weakness, Denies numbness, Denies radiating pain into limb and Denies tingling Neuro Denies abnormal gait, Denies dizziness, Denies syncope, Denies numbness, Denies tingling and Denies weakness Endo Reports palpitations Physical Exam Vital Signs: Last Vital Signs Pulse 82 01/26/25 13:20 BP 122/66 01/26/25 13:20 Const General: cooperative, healthy appearing, comfortable and no acute distress Orientation/consciousness: patient oriented x3 Limitations: wheelchair HEENT Head: Yes normal to inspection Neck Neck: Yes normal visual inspection, Yes trachea midline and Yes supple Chest Chest palpation & inspection: normal inspection of the chest Resp Effort & Inspection: normal respiratory effort Auscultation: clear to auscultation bilaterally, no crackles, no rales, no rhonchi and no wheezes Cardio Jugular venous distension: no JVD Palpation: normal PMI Rate: regular rate Rhythm: regular rhythm Heart sounds: S1 normal heart sound present, S2 normal heart sound present, no click, no gallops, no murmurs and no rubs Peripheral pulses: Peripheral pulses 2+ throughout GI Inspection: Yes normal to inspection Palpation (GI): Soft to palpation Auscultation: normal bowel sounds Skin General skin exam: no rashes or lesions noted Neuro General: patient oriented x3 Extrem General: Yes normal to inspection, No no pedal edema and No calf tenderness Psych Appearance: grossly normal Mental Status: mental status grossly normal Speech and movement: Normal speech and movement present Assessment & Plan Assessment & Plan (1) Chest pain: Code(s): R07.9 - Chest pain, unspecified Category: Medical (2) Palpitations: Code(s): R00.2 - Palpitations Category: Medical (3) Obesity (BMI 30-39.9): Comment: PATIENT HAS HISTORY OF GROSS OBESITY, HAS HAD GASTRIC SLEEVE SURGERY IN THE PAST, REMAINS MODERATELY OBESE. Code(s): E66.9 - Obesity, unspecified Category: Medical (4) Family history of heart disease: Code(s): Z82.49 - Family history of ischemic heart disease and other diseases of the circulatory system Plan Plan Patient was informed and verbally consented to the use of an ambient scribe for clinic note documentation during this visit. 1. Chest Pain Given the patient's symptoms and significant family history of heart disease, further testing for coronary artery disease is warranted. Although the chest pain could be musculoskeletal, a cardiac etiology must be ruled out. A pharmacologic stress test will be ordered, as she is unable to perform a treadmill test. If the stress test is normal and symptoms persist, a cardiac CT scan will be considered. An echocardiogram will also be performed to assess cardiac structure and function. An attempt will be made to obtain records from her previous cardiology provider. 2. Palpitations And History Of Syncope To evaluate for a potential arrhythmia as the cause of her palpitations and history of syncope, a Holter monitor will be ordered for several days. 3. Health Maintenance Her blood pressure is currently stable, and no antihypertensive medication is required at this time. Follow-up will be arranged after the completion of all diagnostic testing. Discussion Notes I discussed with the patient the need to investigate her chest pain, palpitations, and significant family history of heart disease. I explained that we need to rule out coronary artery disease. I presented two testing options: a pharmacologic stress test or a CAT scan of the heart. We agreed to start with a pharmacologic stress test, and if it is normal but symptoms continue, we can then consider a CAT scan. I also explained that we will order an ultrasound of the heart to check its function and a Holter monitor to check for irregular heart rhythms. I acknowledged that her pain could be muscular, but emphasized the importance of ruling out cardiac issues first. I informed her that the office will call to schedule these tests, noting the stress test may be booked out for about three weeks. I advised her that we will try to obtain her prior medical records and will follow up after the tests are completed. Patient Instructions - Due to your chest pain and family history, we will perform several tests to check your heart. - We will order a stress test where you will receive medicine through an IV to check for blockages in your heart arteries. - We will also schedule an ultrasound of your heart (echocardiogram) to see how well it is pumping. - You will wear a Holter monitor for a few days to record your heart's rhythm. - Our office will call you to schedule all of these appointments. - We will try to get your medical records from your previous heart doctor. - We will have you follow up in the office after your testing is complete. Orders: Orders CA lexiscan stress w zion Today R07.9 - Chest pain, unspecified CA echo transthoracic complete Today R00.2 - Palpitations, R07.9 - Chest pain, unspecified ECG 3 day holter monitor Today R07.9 - Chest pain, unspecified Coding Level of Care Code New Pt Level 4 (53820) Add On Problem Visit Only Diagnoses Chest pain R07.9 Palpitations R00.2 Obesity (BMI 30-39.9) E66.9 Family history of heart disease Z82.49 Time Spent (min) 34 Comment Time spent in reviewing the chart, test results, assessment, counseling and documentation.
--- OUTSIDE RECORDS SUMMARY | 2025-01-26 18:43 | XMS_ITS | Data Portability ---
Author Organization [place] [facility], All[facility] Address [address] [address] Assessment No assessment recorded. Plan of Treatment [...] Address Organization Details Recorded Time Impacted cerumen [id number] Active 2014 Disorders of external ear: Impacted cerumen; Note: Date Diagnosed : 11/12/2014 9:15 PM (380.4) Not Available [facility] 4 02:41:52 Unilatera l sensorine ural hearing loss with unrestric peggy hearing on the contralat eral side Active 2014 Sensorine ural HL, unilatera l; Note: Date Diagnosed : 11/12/2014 9:56 PM (389.15) Not Available [facility] 4 02:41:44 Infective otitis externa 57403935 Active 2014 Acute otitis externa; Note: Date Diagnosed : 11/12/2014 9:55 PM (380.10) Not Available [facility] 4 02:41:48 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 hearing on the contralat eral side Active 2014 Mixed hearing loss, unilatera l; Note: Date Diagnosed : 11/12/2014 9:56 PM (389.21) Not Available [facility] 4 02:41:46 Infective otitis externa of left ear 95110346435 42933 Active 2014 Other infective otitis externa, left ear; Note: Date Diagnosed : 11/15/2014 4:59 PM (H60.392) Not Available [facility] 4 02:41:47 Impacted cerumen in left ear 85061094563 04387 Active 2014 Impacted cerumen, left ear; Note: Date Diagnosed : 11/15/2014 4:59 PM (H61.22) Not Available [facility] 4 02:41:51 Mixed conductiv e and sensorine ural hearing loss of left ear 49675515154 107 Active 2014 Mixed conductiv e and sensorine ural hearing loss, unilatera l, left ear, with unrestric peggy hearing on the contralat eral side; Note: Date Diagnosed : 11/15/2014 5:00 PM (H90.72) Not Available [facility] 4 02:41:46 Mixed conductiv e and sensorine ural hearing loss of right ear 07991080984 105 Active 2014 Mixed conductiv e and sensorine ural hearing loss, unilatera l, right ear, with unrestric peggy hearing on the contralat eral side; Note: Date Diagnosed : 11/15/2014 5:00 PM (H90.71) Not Available [facility] 4 02:41:49 Sensorine ural hearing loss 36246566 Active 2014 Sensorine ural hearing loss, unilatera l, right ear, with unrestric peggy hearing on the contralat eral side; Note: Date Diagnosed : 5 1:13 PM (H90.41) Not Available [facility] 4 02:41:50 Impacted cerumen of bilateral ears 38400592379 02005 Active 2015 Impacted cerumen, bilateral ; Note: Date Diagnosed : 08/12/2015 12:36 PM (H61.23) Not Available [facility] 4 02:41:46 Itching of skin 697805251 Active 2016 Other pruritus; Note: Date Diagnosed : 04/10/2016 11:46 AM (L29.8) Not Available [facility] 4 02:41:47 Dysphonia 85281626 Active 2016 Dysphonia ; Note: Date Diagnosed : 05/13/2016 10:26 AM (R49.0) Not Available [facility] 4 02:41:43 Chronic pharyngit is 761048 Active 2016 Chronic sore throat; Note: Date Diagnosed : 05/13/2016 10:24 AM (J31.2) Not Available [facility] 4 02:41:44 Dizziness and giddiness 886432825 Active 2016 Dizziness and giddiness ; Note: Date Diagnosed : 08/17/2016 1:43 PM (R42) Not Available [facility] 4 02:41:51 Sensorine ural hearing loss of bilateral ears 279931534 Active 2016 Sensorine ural hearing loss, bilateral ; Note: Date Diagnosed : 7 4:52 PM (H90.3) Sensori neural hearing loss, bilateral ; Note: Date Diagnosed : 08/12/2015 11:37 AM (H90.3) ; Start Date : 6 Not Available [facility] 4 02:41:48 Otorrhea of right ear 50335755948 75099 Active 2020 Otorrhea, right ear; Note: Date Diagnosed : 04/15/2020 9:41 AM (H92.11) Not Available [facility] 4 02:41:49 Benign paroxysma l positiona l vertigo 901998893 Active 2020 Benign paroxysma l vertigo, left ear; Note: Date Diagnosed : 1 9:47 AM (H81.12) Not Available [facility] 4 02:41:53 Problem Notes None recorded. [...] by mouth 03/20 completed Medicati on ID: [id number] Du ration Value: 7 Brand Name: Augmenti n Send Method: E-Prescr ibed Sub s Allowed: subs OK Medic ationGen ericName : Augmenti n Not Available Not Available Not Available Qvar 80 mcg/actua tion Metered Aerosol oral inhaler 03/20 completed Medicati on ID: [id number] D uration Value: 30 Brand Name: Qlulu [...] mg tablet 03/21 completed Medicati on ID: [id number] D uration Value: 30 Reason: () Brand Name: briandajaneth nikhil Garcia d Method: E-Prescr ibed Sub s Allowed: subs OK Medic ationGen ericName : perphena maytene Not Available Not Available Not Available ipratropi um 0.5 mg-albute rol 3 mg (2.5 mg base)/3 mL nebulizat ion soln 03/20 completed Medicati on ID: [id number] D uration Value: 7 Brand Name: ipratrop [...] 2 drop 03/20 completed Medicati on ID: [id number] Du ration Value: 7 Prescri bed By [...] ear drops 03/20 completed Medicati on ID: [id number] Br and Name: Debrox S end Method: [...] 3 drop 03/20 completed Medicati on ID: [id number] D uration Value: 10 Brand Name: Pred [...] mg tablet 03/21 completed Medicati on ID: [id number] D uration Value: 28 Reason: () Brand Name: oxycodon e-acetam inophen Send Method: E-Prescr ibed Sub s Allowed: subs OK Medic ationGen ericName : oxycodon e-acetam inophen Not Available Not Available Not Available ofloxacin 0.3 % ear drops Apply 5 drop into both ears twice a day 03/20 completed Medicati on ID: [id number] D uration Value: 7 Brand Name: ofloxaci [...] mg tablet 12/22 completed Medicati on ID: [id number] Re ason: () Brand Name: Klonopin Send Method: E-Prescr ibed Sub s Allowed: subs OK [facility] Not Available Not Available Not Available meclizine 25 mg tablet TAKE 1 TABLET BY MOUTH TWICE DAILY NEEDED active Not Available Not Available No t Available baclofen 10 mg tablet 2018 active Medicati on ID: [id number] D uration Value: 30 Brand Name: baclofen Send Method: E-Prescr ibed Sub s Allowed: subs OK Speci al Instruct ion: TAKE 1 TABLET TWICE DAILY Me dication GenericN galindo: baclofen Not Available Not Available Not Available doxepin 100 mg capsule 09/30 completed Medicati on ID: [id number] Re ason: () Brand Name: doxepin Send [...] mcg tablet 03/21 completed Medicati on ID: [id number] D uration Value: 30 Reason: () Brand [...] for pain 03/21 completed Medicati on ID: [id number] Re ason: () Brand Name: oxycodon e Send Method: E-Prescr ibed Sub s Allowed: subs OK Medic ationGen ericName : oxycodon e Not Available Not Available Not Available Advair Diskus 250 mcg-50 mcg/dose powder for inhalatio n INHALE 1 PUFF BY MOUTH TWICE DAILY active Not Available Not Available No t Available clotrimaz ole 1 % topical solution 03/20 completed Medicati on ID: [id number] P dain rubio By Name: Josue johnson [...] elayed release 03/20 completed Medicati on ID: [id number] D uration Value: 30 Brand Name: omeprazo le Send Method: E-Prescr ibed Sub s Allowed: subs OK Speci al Instruct ion: TAKE 1 CAPSULE BY MOUTH EVERY DAY 30 MINUTES TO 1 HOUR BEFORE MEALS Me dication GenericN galindo: omeprazo le Not Available Not Available Not Available Cortispor in 3.5 mg/g-10,0 00 unit/g-0. 5 % topical cream 12/22 completed Medicati on ID: [id number] Re ason: () Brand Name: Cortispo rin Send Method: E-Prescr ibed Sub s Allowed: subs OK Medic ationGen ericName : Cortispo rin Not Available Not Available Not Available hydroxyzi ne HCl 25 mg tablet TAKE 1 TABLET BY MOUTH THREE TIMES DAILY NEEDED FOR ANXIETY active Not Available Not Available No t Available topiramat e 200 mg tablet 03/20 completed Medicati on ID: [id number] D uration Value: 30 Brand Name: topirama [...] mg tablet 03/20 completed Medicati on ID: [id number] D uration Value: 20 Brand Name: ibuprofe [...] left ear 03/20 completed Medicati on ID: [id number] D uration Value: 7 Brand Name: Cortispo [...] drops,rigo pension 03/20 completed Medicati on ID: [id number] D uration Value: 14 Brand Name: TobraDex Send Method: E-Prescr ibed Sub s Allowed: subs OK Speci al Instruct ion: Instill 3 drops in the affect ear BID for 10 days Med icationG enericNa me: TobraDex Not Available Not Available Not Available Flovent HFA 220 mcg/actua tion aerosol inhaler 03/20 completed Medicati on ID: [id number] D uration Value: 60 Brand Name: Flovent [...] as directed 03/20 completed Medicati on ID: [id number] D uration Value: 7 Brand Name: DermOtic [...] mcg capsule 11/12 completed Medicati on ID: [id number] Re ason: () Brand Name: Tirosint Send [...] Updated DateTime 03/20/2024 160.02 cm 30.8 kg/m2 23694.07 g Natacha Childs [facility] 03/20/2024 13:01:51 Date Recorded Body height Body mass index (BMI) Body weight Provider Name and Address Organization Details Last Updated DateTime 08/14/2024 160.02 cm 31.9 kg/m2 32058.63 g Natacha Childs [facility] 08/14/2024 12:59:51 Social History None recorded. Functional Status None recorded. Mental Status None recorded. Family History Nothing Reported. Medical History No medical history recorded. Gynecological HistoryNo gynecological history recorded. Obstetrics History GPAL:G 0 P 0 0 0 0 Past Encounters Encounter ID Performer Location Encounter Start Date Encounter Closed Date Diagnosis/Indication Diagnosis SNOMED-CT Code Diagnosis ICD10 Code Diagnosis IMO Codes Diagnosis Note [id number] JOSUE SHEPHERD MD [facility] [address] [id number] 03/20/2024 12:52:27 03/20/2024 13:16:19 Impacted cerumen of bilateral ears [id number] 101382 H61.23 She has very narrow canals and gets debris impacted against the TM bilaterall y. Cerumen removed and tolerated well. [id number] JOSUE SHEPHERD MD [facility] [address] [address] 08/14/2024 12:21:01 08/14/2024 13:07:51 Impacted cerumen of bilateral ears 8364467378 427366 H61.23 She has very narrow canals and [...] Schrader Member ID Guarantor Name 12/16/2024 1 [facility] - DOS ON OR AFTER 2022 - [employer] OPTIONS AND ONE [employer] (MEDICARE REPLACEMENT/AD VANTAGE - PPO) Mag Ayala [id number] Mag Ayala 12/15/2024 1 [place]ICA[place]: [facility] Mag Ayala [id number] Mag Ayala Notes Date Note Type Note Provider Name and Address Organization Details Recorded Time 03/20/2024 text/html Dizziness now and then, having some ear itching. JOSUE SHEPHERD MD [address] [place] [address], [phone], [place] - [facility] 03/20/2024 17:18:34 08/14/2024 text/html 63-year-old female presents today for routine ear cleaning. She has chronic pruritus. Spinal stenosisKnee pain JOSUE SHEPHERD MD [address] [place] [address], [phone], [place] - [facility] 08/15/2024 09:20:47 OBGyn Episode No OBEpisode recorded.
== END 2025-01-26 13:53 | disposition home or self-care (01) ==
LOC: HO.HCS 13:05
PROVIDERS: PCP Internal Medicine Geriatric Medicine
DX: R07.9 Chest pain, unspecified (principal); R00.2 Palpitations; E66.9 Obesity, unspecified; Z82.49 Family history of ischemic heart disease and other diseases of the circulatory system
CPT/HCPCS: 99204; G2211

== ENCOUNTER → 2025-01-26 13:04 | Outpatient (BNVA) | payer OTHER, SELFPAY | PROVIDERS: PCP Internal Medicine Geriatric Medicine | DX: R07.89 Other chest pain (principal); R00.2 Palpitations; E66.9 Obesity, unspecified; Z82.49 Family history of ischemic heart disease and other diseases of the circulatory system | CPT/HCPCS: 99202 ==

== ENCOUNTER 2025-02-01 11:10 | Outpatient (AMB) | payer OTHER, SELFPAY ==
--- NOTE | 2025-02-01 11:17 | A.OFFVIS_ITS ---
Intake Visit Reasons: OV - left shoulder MRI review/ lyft Intake Note: Mag is a 64 year old female who presents today for an MRI review of left shoulder. Patient reports her pain is getting worse, states it makes it difficult to get comfortable to sleep at night. She has been using a menthol topical cream from [place] that eases her pain, however not much. Allergies nalbuphine (From [facility]) Allergy (Severe, Verified 02/01/25 11:19) Anaphylaxis tramadol Adverse Reaction (Verified 02/01/25 11:19) itchy Medication List - Last Reconciled 02/01/25 by Ko Villegas PA-C acetaminophen (Tylenol) 650 mg (2 x 325 mg) PO Q6H PRN albuterol sulfate 90 mcg/actuation (Ventolin HFA) 2 puffs PO Q6H PRN 30 days albuterol sulfate 2.5 mg (3 mL) inhalation Q4H PRN alendronate 70 mg PO TU cetirizine 10 mg PO DAILY PRN cholecalciferol (vitamin D3) 25 mcg PO DAILY cyclobenzaprine 10 mg PO Q8H doxepin 75 mg PO BEDTIME estazolam 3 mg PO BEDTIME fluticasone propion-salmeterol 250-50 mcg/dose 1 ea PO BID ibuprofen 800 mg PO Q8H PRN levothyroxine 100 mcg PO DAILY@0600 lidocaine 5% 1 patch topical DAILY lorazepam 0.5 mg PO BID PRN 1 day magnesium oxide 400 mg PO DAILY@1200 meclizine (Dramamine Less Drowsy) 25 mg PO TID PRN omeprazole 40 mg PO DAILY@0630 polyethylene glycol 3350 (Miralax) 17 grams PO DAILY pyridoxine (vitamin B6) 200 mg PO DAILY@1200 tirzepatide (weight loss) (Zepbound) mg subcut QWEEK venlafaxine mg PO HPI Comments Details: History of Present Illness The patient is a 64-year-old female presenting for a follow-up appointment regarding a left shoulder injury. She reports falling and landing on her left shoulder on December 13, which resulted in discomfort, tenderness, and limited motion. The pain is particularly severe at night, causing insomnia. An MRI performed on December 23 confirmed a rotator cuff tear, a torn proximal biceps tendon, a cartilage defect, AC joint arthritis, and bursal swelling. She has a history of a right shoulder tear from a fall in March 2017, which was not surgically repaired, and she has been living with it since. Social History - The patient lives by herself and does not have a personal service representative or family nearby for support. - She attends [employer], but feels her fellow [employer] members may not be available to help her as they are all working. 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 - She previously tried Meals on Wheels but stopped due to concerns about weight gain. - She uses a scooter for mobility but has difficulty operating it with her injured left arm. - The patient has an upcoming trip to [place] planned for April. [facility] Medical History Diverticulosis of colon Right shoulder injury Kidney calculi Nausea & vomiting Bronchitis Close exposure to 2019-nCoV Strain of tendon of medial thigh muscle Easy bruising Hoarseness Dizziness Clostridium difficile infection Osteoarthritis of right knee Sciatica, left side Osteoarthritis of left knee Bilateral hip pain Urinary retention Painful urination Sleep apnea Somnolence, daytime Obesity (BMI 30-39.9) Migraine Syncope Pseudotumor cerebri Crystal arthropathy Kidney tumor COVID-19 vaccine administered Thyroid disease Colon polyp Bronchial asthma Acid reflux Surgical History Status post gastric bypass for obesity Status post excision of lipoma (09/10/23) History of esophagogastroduodenoscopy (EGD) History of surgery on wrist History of hysterectomy Previous section Hx laparoscopic cholecystectomy Hx of colonoscopy Family History Father Heart disease History of open heart surgery Mother Heart disease Social History Household Members: None Household Members Other:: alone Are you a primary home health care social worker to a significant other at home: No Do you presently have visiting nurse or other home services: No Alcohol intake: never Patient Tobacco Use Status: Former Tobacco user Tobacco use type: Cigarette service: No Current occupational status: disabled Review of Systems Narrative Review of Systems - Musculoskeletal: Reports severe, acute pain in the left shoulder, which is worse at night. - She reports limited range of motion and is unable to lift her arm to her head. - She reports a history of a right shoulder tear. - Constitutional: Reports insomnia due to shoulder pain. Physical Exam Exam Exam: Physical Exam - General: Patient is observed to be guarding her left shoulder. - Musculoskeletal: Inspection of the left shoulder reveals tensing and stiffness. - Active range of motion of the left shoulder is limited; the patient is unable to raise her arm to the top of her head. Results Reviewed Results Reviewed: MR shoulder LT wo con IMPRESSION: There is a full-thickness tear super space tendon with 2 cm retraction. Tear extends into anterior fibers of infraspinatus tendon. There is a possible deep partial-thickness bursal sided tear of subscapularis tendon. Long biceps tendon is torn and distally retracted. The superior labrum is essentially absent consistent with a degenerative tear. There is a small focal full-thickness articular cartilage defect in central glenoid with reactive marrow signal change. There is also deep partial to full-thickness cartilage loss in the superior humeral head. There is mild/moderate AC joint arthropathy. Acromion has a curved morphology. There is a small subacromial spur. There is a mildly complex subacromial subdeltoid bursal effusion. There is mild deconditioning of the left shoulder musculature. Assessment & Plan Assessment & Plan (1) Left rotator cuff tear: Code(s): M75.102 - Unspecified rotator cuff tear or rupture of left shoulder, not specified as traumatic Category: Medical Plan Plan 1. Left Rotator Cuff Tear The patient's MRI confirms a full-thickness left rotator cuff tear, a torn proximal biceps tendon, arthritis, and bursitis, which are consistent with her symptoms following a fall. Surgical and non-surgical options were discussed. Surgical repair is the recommended treatment for a functional outcome, but it involves a lengthy recovery of 6 weeks in a sling and activity restrictions for 8-12 weeks. The risk of non-operative treatment is that the tear may retract and become irreparable, potentially leading to advanced arthritis and the need for a shoulder replacement. The patient is undecided about surgery due to a lack of social support for post- operative care. A referral for home physical therapy (VNA) will be placed to maintain range of motion and prevent stiffness, which is crucial regardless of her decision. The patient was instructed on gentle stretching exercises, such as pendulum swings and wall climbing, and advised to relax the shoulder to avoid adhesive capsulitis. She will consider her options and contact the office with her decision. 2. Dependence On Wheelchair The patient reports difficulty operating her current scooter due to her left arm injury. A detailed letter of medical necessity will be provided for a power wheelchair with a joystick control to improve her mobility and independence. She was advised to submit the letter to her medical supply company and seek other suppliers if necessary. Consent A detailed discussion was held with the patient regarding the risks, benefits, and alternatives for both surgical and non-surgical management of her left rotator cuff tear. The patient demonstrated understanding of the options but has not yet provided consent for a procedure, as she will first evaluate her social support system for post-operative care. Patient was informed and verbally consented to the use of an ambient scribe for clinic note documentation during this visit. Coding Level of Care Code Est Pt Level 4 (92289) Add On Problem Visit Only Diagnoses Left rotator cuff tear M75.102
--- OUTSIDE RECORDS SUMMARY | 2025-02-01 14:39 | XMS_ITS | Encounter Summary ---
Author Organization [employer] Address [address] [facility] 7t [place] [address] Care Team Providers Care Television Repairer Name Role Phone Name, Gregg DIAMOND Primary Care Provider [phone] Reason for Visit * Reason Comments Med Refill Encounter Details Date Type Department Care Team ([facility] st Contact Info) Description 01/31/2025 Refill [facility] MEDICINE [address] [place] [address] Name, MD Gregg [address] [place] [address] Osteoporosis, unspecified osteoporosis type, unspecified pathological fracture [...] Care Team (Late st Contact Info) Description 03/06/2025 9:00 AM EST Office Visit [facility] MEDICINE [address] [place] [phone] Gregg Gandhi MD [address] [place] [address] 03/09/2025 10:00 AM EST Office Visit [facility] ADULT DENTAL [address] [place] [address] Ayan Calvin DMD [address] [place] [address] 07/02/2025 10:15 AM EDT Office Visit [facility] ADULT DENTAL [address] [place] [address] Faye Mi documented as of this encounter Visit Diagnoses Diagnosis Osteoporosis, unspecified osteoporosis type, unspecified pathological fracture presence documented in this encounter Additional Health Concerns Assessment Noted Time PHQ-9 Depression Total Score: 1 07/18/19 25 11:20 AM EDT documented as of this encounter Care Teams Television Repairer Relationship Specialty Start Date End Date NameGregg MD [address] [place] [address] PCP - General Family Medicine 04/16/15 [facility] 05/23/24 documented as of this encounter
--- OUTSIDE RECORDS SUMMARY | 2025-02-01 14:39 | XMS_ITS | Encounter Summary ---
Author Organization [employer] Address [address] [place] [address] Care Team Providers Care Deputy Director Of Nursing Name Role Phone Name, Gregg DIAMOND Primary Care Provider [phone] Reason for Visit * Reason Comments Med Change Request Encounter Details Date Type Department Care Team ([facility] Contact Info) Description 07/26/2024 Refill [facility] MEDICINE [address] [place] [address] Name, MD Gregg [address] [place] [address] Social History Tobacco Use Types Packs/Day Years [...] Description 03/06/2025 9:00 AM EST Office Visit [facility] MEDICINE [address] [place] [address] NameGregg MD [address] [place] [address] 03/09/2025 10:00 AM EST Office Visit [facility] ADULT DENTAL [address] [place] [address] Ayan Calvin, RAMIREZ [address] [place] [address] 07/02/2025 10:15 AM EDT Office Visit [facility] ADULT DENTAL [address] [place] [address] Faye Mi documented as of this encounter Visit Diagnoses Not on filedocumented in this encounter Additional Health Concerns Assessment Noted Time PHQ-9 Depression Total Score: 1 07/18/19 25 11:20 AM EDT documented as of this encounter Care Teams Deputy Director Of Nursing Relationship Specialty Start Date End Date Name, MD Gregg [address] [place] [address] PCP - General Family Medicine 04/16/15 [facility] 05/23/24 documented as of this encounter
--- OUTSIDE RECORDS SUMMARY | 2025-02-01 14:39 | XMS_ITS | Encounter Summary ---
Author Organization [employer] Address [address] [place] [address] Care Team Providers Care Systems Support Engineer Name Role Phone Name, Gregg DIAMOND Primary Care Provider [phone] Reason for Visit * Reason Onset Date Comments Nurse Triage 11/27/2022 Encounter Details Date Type Department Care Team ([facility] st Contact Info) Description 11/27/2022 Telephone [facility] MEDICINE [address] [place] [address] Name, MD Gregg [address] [place] [address] Nurse Triage Social History Tobacco Use Types [...] t he electric, gas, oil or water [employer] threatened to shut off services in your [...] caller accepted this outcome Does not need regulatory affairs strategy specialist . documented in this encounter Plan of Treatment Upcoming Encounters Date Type Department Care Team (Late st Contact Info) Description 03/06/2025 9:00 AM EST Office Visit [facility] MEDICINE [address] [place] [address] Name, MD Gregg [address] [place] [address] 03/09/2025 10:00 AM EST Office Visit [facility] ADULT DENTAL [address] [place] [address] Ayan Calvin, RAMIREZ [address] [place] [address] 07/02/2025 10:15 AM EDT Office Visit [facility] ADULT DENTAL [address] [place] [address] Faye Mi documented as of this encounter Visit Diagnoses Not on filedocumented in this encounter Additional Health Concerns Assessment Noted Time PHQ-9 Depression Total Score: 7 03/04/19 9:17 AM EST documented as of this encounter Care Teams Systems Support Engineer Relationship Specialty Start Date End Date Name, MD Gregg [address] [place] [address] PCP - General Family Medicine 04/16/15 [facility] 05/23/24 documented as of this encounter
--- OUTSIDE RECORDS SUMMARY | 2025-02-01 14:39 | XMS_ITS | Encounter Summary ---
Author Organization [employer] Address [address] [facility] 7t [place] [address] Care Team Providers Care Refuge Worker Name Role Phone Name, Gregg DIAMOND Primary Care Provider [phone] Reason for Visit * Reason Onset Date Comments broken tooth to hold partial 02/28/2024 Encounter Details Date Type Department Care Team ([facility] st Contact Info) Description 02/28/2024 Telephone [facility] ADULT DENTAL [address] [place] [address] Ayan Calvin, DMD [address] [place] [address] broken tooth to hold partial Social History [...] Description 03/06/2025 9:00 AM EST Office Visit [facility] MEDICINE [address] [place] [address] Name, MD Gregg [address] [place] [address] 03/09/2025 10:00 AM EST Office Visit [facility] ADULT DENTAL [address] [place] [address] Ayan Calvin DMD [address] [place] [address] 07/02/2025 10:15 AM EDT Office Visit [facility] ADULT DENTAL [address] [place] [address] Faye Mi documented as of this encounter Visit Diagnoses Not on filedocumented in this encounter Additional Health Concerns Assessment Noted Time PHQ-9 Depression Total Score: 0 09/01/19 24 10:42 AM EDT documented as of this encounter Care Teams Refuge Worker Relationship Specialty Start Date End Date Name, MD Gregg [address] [place] [address] PCP - General Family Medicine 04/16/15 [facility] 05/23/24 documented as of this encounter
--- OUTSIDE RECORDS SUMMARY | 2025-02-01 14:39 | XMS_ITS | Encounter Summary ---
Author Organization [employer] Address [address] [place] [address] Care Team Providers Care Ballet Professor Name Role Phone Name, Gregg DIAMOND Primary Care Provider [phone] Reason for Visit * Reason Comments Med Refill Encounter Details Date Type Department Care Team ([facility] st Contact Info) Description 12/14/2024 Refill [facility] MEDICINE [address] [place] [address] Name, MD Gregg [address] [place] [address] Social History Tobacco Use Types Packs/Day Years [...] Description 03/06/2025 9:00 AM EST Office Visit [facility] MEDICINE [address] [place] [address] Name, MD Gregg [address] [place] [address] 03/09/2025 10:00 AM EST Office Visit [facility] ADULT DENTAL [address] [place] [address] Ayan Calvin, DMD [address] [place] [address] 07/02/2025 10:15 AM EDT Office Visit [facility] ADULT DENTAL [address] [place] [address] Faye Mi documented as of this encounter Visit Diagnoses Not on filedocumented in this encounter Additional Health Concerns Assessment Noted Time PHQ-9 Depression Total Score: 1 07/18/19 25 11:20 AM EDT documented as of this encounter Care Teams Ballet Professor Relationship Specialty Start Date End Date Name, MD Gregg [address] [place] [address] PCP - General Family Medicine 04/16/15 [facility] 05/23/24 documented as of this encounter
--- OUTSIDE RECORDS SUMMARY | 2025-02-01 14:39 | XMS_ITS | Encounter Summary ---
Author Organization [employer] Address [address] [place] [address] Care Team Providers Care Apparel Stock Checker Name Role Phone Name, Gregg DIAMOND Primary Care Provider [phone] Reason for Visit * Reason Onset Date Comments PT1 02/25/2023 Encounter Details Date Type Department Care Team ([facility] st Contact Info) Description 02/25/2023 Telephone [facility] MEDICINE [address] [place] [address] Name, MD Gregg [address] [place] [address] PT1 Social History Tobacco Use Types Packs/Day [...] - valid through 06/2023 [facility] neurology - [id number] authorized Dr Chakraborty - [id number] pending [facility] Gen Surg - [id number] authorized [facility] - [id number] authorized Renal & Trans - [id number] authorized ENT - [id number] pending [facility] medical office - [id number] pending * Telephone Encounter - Cameron Su - 02/25/2023 4:29 PM EST PT1 needed Date: N/A Time: N/A Visits: 2 or 3 monthly Address: [address] [facility] Facility: [facility] Cardiovascular Wheel Chair: No Health Safety Instructor Needed: No PT1 needed Date: N/A Time: N/A Visits: 2 or 3 Monthly Address: [address] [facility] Facility: [facility] Neurology Wheel No Health Safety Instructor Needed: No PT1 needed Date: N/A Time: N/A Visits: 2 or 3 Monthly Address: [address] [facility] Facility: Dr Chakraborty Wheel Chair: No Health Safety Instructor Needed: No PT1 needed Date: N/A Time: N/A Visits: 2 or 3 Monthly Address: [address] [place] [address] dr LambertRafy [place] Facility: [facility] General Surgery Wheel Chair: No Health Safety Instructor Needed: No PT1 needed Date: N/A Time: N/A Visits: 2 or 3 Monthly Address: [address] [place] [address] Facility: [facility] Wheel Chair: No Health Safety Instructor Needed: No PT1 needed Date: N/A Time: N/A Visits: 2 or 3 monthly Address: [address] [facility] Facility: [facility] Wheel Chair: No Health Safety Instructor Needed: No PT1 needed Date: N/A Time: N/A Visits: 2 or 3 monthly Address: [address] [facility] Facility: [facility] Wheel Chair: No Health Safety Instructor Needed: No PT1 needed Date: N/A Time: N/A Visits: 2 or 3 Monthly Address: [address] [facility] [address] Cesia DESOUZA Facility: [facility] medical Office Wheel Chair: No Health Safety Instructor Needed: No PT1 needed Date: N/A Time: N/A Visits: 2 or 3 Monthly Address: [address] [place] [address] Facility: [facility] Wheel Chair: No Health Safety Instructor Needed: No documented in this encounter Plan of Treatment Upcoming Encounters Date Type Department Care Team (Late st Contact Info) Description 03/06/2025 9:00 AM EST Office Visit [facility] MEDICINE [address] [place] [address] Name, MD Gregg [address] [place] [address] 03/09/2025 10:00 AM EST Office Visit [facility] ADULT DENTAL [address] [place] [address] Ayan Calvin DMD [address] [place] [address] 07/02/2025 10:15 AM EDT Office Visit [facility] ADULT DENTAL [address] [place] [address] Faye Mi documented as of this encounter Visit Diagnoses Not on filedocumented in this encounter Additional Health Concerns Assessment Noted Time PHQ-9 Depression Total Score: 7 03/04/19 9:17 AM EST documented as of this encounter Care Teams Apparel Stock Checker Relationship Specialty Start Date End Date Name, MD Gregg [address] [place] [address] PCP - General Family Medicine 04/16/15 [facility] 05/23/24 documented as of this encounter
--- OUTSIDE RECORDS SUMMARY | 2025-02-01 14:39 | XMS_ITS | Encounter Summary ---
Author Organization [employer] Address [address] [place] [address] Care Team Providers Care Moveman Name Role Phone Name, Gregg DIAMOND Primary Care Provider [phone] Encounter Details Date Type Department Care Team (Late st Contact Info) Description 01/31/2025 Refill [facility] MEDICINE [address] [place], [place] [phone] Name, MD Gregg [address] [place] [address] Osteoporosis, unspecified osteoporosis type, unspecified pathological fracture [...] 03/06/2025 9:00 AM EST Office Visit [facility] MEDICINE [address] [place] [address] NameGregg MD [address] [place] [address] 03/09/2025 10:00 AM EST Office Visit [facility] ADULT DENTAL [address] [place] [address] Ayan Calvin, RAMIREZ [address] [place] [address] 07/02/2025 10:15 AM EDT Office Visit [facility] ADULT DENTAL [address] [place] [address] Faye Mi documented as of this encounter Visit Diagnoses Diagnosis Osteoporosis, unspecified osteoporosis type, unspecified pathological fracture presence documented in this encounter Additional Health Concerns Assessment Noted Time PHQ-9 Depression Total Score: 1 07/18/19 25 11:20 AM EDT documented as of this encounter Care Teams Moveman Relationship Specialty Start Date End Date NameGregg MD [address] [place] [address] PCP - General Family Medicine 04/16/15 [facility] 05/23/24 documented as of this encounter
--- OUTSIDE RECORDS SUMMARY | 2025-02-01 14:39 | XMS_ITS | Clinical Summary ---
Author Organization [email or web address] Address [address] [place] [address] Care Team Providers Care Infant Teacher Name Role Phone Name, Gregg DIAMOND Primary Care Provider [phone] Allergies Active Allergy Reactions Criticality Noted [...] topically 2 times daily. 28 g 1 Active meclizine (Antivert) 25 MG tablet TAKE 1 TABLET BY MOUTH TWICE DAILY NEEDED 60 tablet 4 Active ipratropium (Atrovent) 0.06 % nasal sprayIndication s:Viral upper respiratory tract infection with cough 2 sprays each nostril bid prn rhinorrhea, divehi 15 mL Active doxepin (SINEquan) 75 MG capsule Take 1 capsule by mouth at bedtime Active Fluticasone-Quique meterol 250-50 MCG/ACT aerosol powder Inhale 1 puff by mouth twice daily. Rinse mouth after using. Active pyridoxine (Vitamin B-6) 100 MG tabletIndicatio ns:Bariatric surgery status TAKE 2 TABLETS BY MOUTH ONCE DAILY AT NOON 180 tablet 3 01/10/20 25 1:08 PM EST 025 Active hydroCHLOROthia zide 12.5 MG tablet TAKE 1 TABLET BY MOUTH EVERYDAY AT NOON 90 tablet 3 025 Active gabapentin (Neurontin) 100 MG capsule Take 1 capsule (100 mg) by mouth every 8 (eight) hours. Active omeprazole (PriLOSEC) [address] capsule TAKE 1 CAPSULE BY MOUTH EVERY MORNING BEFORE MEALS DO NOT BREAK, CRUSH, DISSOLVE OR CHEW 90 capsule 3 01/10/20 25 1:08 PM EST 025 Active magnesium oxide (Mag-Ox) 400 MG tabletIndicatio ns:Osteoporosis , unspecified osteoporosis type, unspecified pathological fracture presence TAKE 1 TABLET BY MOUTH EVERYDAY AT NOON WITH FOOD 90 tablet 1 01/10/20 25 1:08 PM EST 025 Active Lidocaine (Lidocaine Pain Relief) 4 % patch APPLY 1 PATCH TO AFFECTED AREA(S) EVERY DAY 30 patch 3 025 Active alendronate (Fosamax) 70 MG tabletIndicatio ns:Osteoporosis , unspecified osteoporosis type, unspecified pathological fracture presence take 1 tablet by mouth once a week with 6 to 8 oz of water 30 min before first food of day. do not lie down for 30 minutes 12 tablet 025 Active docusate sodium (Colace) 100 MG capsule TAKE 1 CAPSULE BY MOUTH EVERY DAY 90 capsule 1 01/10/20 25 1:08 PM EST 025 Active Zepbound 15 MG/0.5ML solution auto-injector INJECT ONE PEN (=15MG) SUBCUTANEOUSLY ONCE A WEEK DIRECTED 2 mL 3 01/27/20 25 10:30 AM EST 025 Active cholecalciferol (Vitamin D-3) 25 MCG tabletIndicatio ns:Osteoporosis , unspecified osteoporosis type, unspecified pathological fracture presence TAKE 1 TABLET BY MOUTH EVERYDAY AT NOON 90 tablet 025 Active Tirzepatide-Eddie ght Management (Zepbound) 15 MG/0.5ML solution auto-injector Inject 0.5 mL (15 mg) under the skin 1 (one) time per week. INJECT ONE PEN (=15 MG) SUBCUTANEOUSLY ONCE A WEEK 2 mL 3 025 2024 Discontinued cholecalciferol (Vitamin D-3) 25 MCG tabletIndicatio ns:Osteoporosis , unspecified osteoporosis type, unspecified pathological fracture presence TAKE 1 TABLET BY MOUTH EVERYDAY AT NOON 90 tablet 025 2024 Discontinued(R eorder (will not trigger notification to Pharmacy)) Active [...] is already in the process of seeing [facility] Plan: Increase fluids, pain [...] Encounters Date Type Department Care Team Description 01/31/2025 Refill [facility] [address] [place] [address] Gregg Gandhi MD Osteoporosis, unspecified osteoporosis type, unspecified pathological fracture presence 01/31/2025 Refill [facility] [address] [place] [address] Gregg Gandhi MD Osteoporosis, unspecified osteoporosis type, unspecified pathological fracture presence 01/24/2025 Telephone [facility] [address] [place] [address] Gregg Gandhi MD Prior Authorization 01/22/2025 Orders Only [facility] External Provider, [facility] 01/18/2025 Telephone [facility] [address] [place] [address] Gregg Gandhi MD Prior Authorization 01/16/2025 Telephone [facility] [address] [place] [address] Gregg Gandhi MD [employer] Medical Equipment 01/09/2025 Refill [facility] [address] [facility] [place] [address] Gregg Gandhi MD 01/02/2025 8:30 AM EST Office Visit [facility] [address] [place] [address] Heath Dougherty, DDS 12/26/2024 Refill [facility] [address] [place] [address] Gregg Gandhi MD 12/22/2024 Orders Only [facility] External Provider, [facility] 12/18/2024 1:30 PM EST Office Visit [facility] [address] [place] [address] Faey Mi Dental calculus (Primary Dx); Dental plaque 12/14/2024 Refill [facility] [place] [address] Gregg Ganhdi MD 12/08/[address] [address] Gregg Gandhi MD 12/08/2024 Telephone [facility] [address] [place] [address] Gregg Gandhi MD [employer] Equipment 12/01/2024 Telephone [facility] [address] [place] [address] Sweta Giraldo MA 12/01/[address] [address] Sweta Giraldo MA dec recalls 11/14/2024 9:00 AM EDT Office Visit [facility] [address] [place] [address] Heath Dougherty, DDS 11/07/2024 Telephone [facility] [address] [place] [address] Heath Dougherty, DDS 11/03/2024 Refill [facility] [place] [address] Gregg Gandhi MD Osteoporosis, unspecified osteoporosis type, [...] Description 03/06/2025 9:00 AM EST Office Visit [facility] [address] [place] [address] Name, MD Gregg [address] [place] [address] 03/09/2025 10:00 AM EST Office Visit [facility] [address] [place] [address] Ayan Calvin, DMD [address] [place] [address] 07/02/2025 10:15 AM EDT Office Visit [facility] [address] [place] [address] Faye Mi Health Maintenance Due Date Last Done Comments CT Colonography 1960 FIT DNA/Cologuard 1960 FIT 1960 FOBT 1960 Sigmoidoscopy 1960 Hepatitis C Screening 1976 RSV Patients and Patients Aged 60 years or older (1 - Risk 50-74 years 1-dose series) 2008 Mammogram 04/19/2025 04/20/2023, 03/19, 04/09/2022, Additional history exists Lipid Panel 05/20/2025 05/20/2020 COVID-19 Vaccine ( season) 2025 12/13/2024, 11/17/2022, 12/25/2021, Additional history exists Dental Prophylaxis 06/18/2025 12/18/2024, 08/31/2023 Dental Oral Exam 07/03/2025 01/02/2025, 08/31/2023 Depression Screening 07/17/2025 07/17/2024, 07/18/19 25 Colonoscopy 08/08/2025 08/08/2020 Colorectal Cancer Screening 08/08/2025 SDOH Screening 08/28/2025 08/28/2024 Alcohol/Substance Use Screening 09/26/2025 09/26/2024 Dental X-Ray: Bitewings 12/19/2025 12/19/19 25, 08/31/2023, 08/02/2023 Tobacco Screening 01/02/2026 01/02/2025 DTaP/Tdap/Td Vaccines (2 - Td or Tdap) [...] Name Priority Date/Time Associated Diagnosis Comments MR SHOULDER WO CONTRAST LEFT Routine 01/22/2025 10:01 AM EST CASE PRESENTATION, DETAILED AND EXTENSIVE TREATMENT PLANNING Routine 01/02/2025 8:30 AM EST COMPREHENSIVE PERIODONTAL EVALUATION - NEW OR ESTABLISHED PATIENT Routine 01/02/2025 8:30 AM EST PERIODIC ORAL EVALUATION - ESTABLISHED PATIENT Routine 01/02/2025 8:30 AM EST HIGH SENSITIVITY TROPONIN I Routine 12/22/2024 7:51 PM EST D DIMER HIGH SENSITIVITY Routine 12/22/2024 7:51 PM EST XR CHEST 2 VIEWS Routine 12/22/2024 6:47 PM EST ORAL HYGIENE INSTRUCTIONS Routine 12/18/2024 1:30 PM [...] PROBLEM FOCUSED Routine 11/14/2024 9:00 AM EDT INTRAORAL - COMPLETE SERIES OF RADIOGRAPHIC IMAGES Routine 08/31/2023 1:00 PM EDT Dental plaque Dental calculus BI MAMMOGRAM SCREENING TOMOSYNTHESIS BILATERAL Routine 04/20/2023 12:05 PM EST HM COLONOSCOPY Routine 08/08/2020 1:49 PM EDT LIPID PANEL, STANDARD Routine 05/20/2020 9:32 AM EDT from Last 3 Months or Most Recently Relevant to Health Maintenance Results * MR Shoulder w/o Contrast Left (01/22/2025 10:01 AM EST) Anatomical Region Laterality Modality Upper Extremities, Shoulder Left Magn etic Resonance 01/22/2025 10:0 1 AM EST Narrative 01/22/2025 10:52 AM EST [place] [address] Magnetic Resonance Report Signed Patient: Mag Ayala MR#: [id number] 4 : 1960 Acct:[id number] Age/Sex: 64 / F ADM Date: 01/22/25 Loc: HO.MRI Attending Dr: Ko Villegas PA-C Ordering Physician: Ko Villegas PA-C Date of Service: 01/22/25 Procedure(s): MR shoulder LT wo con Accession Number(s): [id number] cc: Ko Villegas PA-C; Name,Gregg DIAMOND Reason for Exam: S46.009A - Unspecified injury of muscle(s) and tendon(s) of the rotator ... EXAMINATION: MRI Shoulder without contrast, left TECHNIQUE: Multiplanar multisequence MR imaging through an upper extremity joint without contrast. INDICATION: November 2024 patient fell and arm got stuck between concrete wall, limited range of motion and pain since then PRIOR: X-ray 12/13/2024 FINDINGS: Rotator Cuff: There is a full-thickness tear of supraspinatus tendon with 2 cm retraction. Tear extends into anterior fibers of infraspinatus tendon. Subscapularis tendon appears thin laterally (axial PD fat-sat image 01/09)?A deep bursal sided partial-thickness tear. Labrum: Superior labrum is torn and frayed. Long biceps tendon: Long biceps tendon is torn off of the labrum and distally retracted. The tendon is not clearly seen in the biceps groove. Acromioclavicular joint: AC joint is degenerated with marginal osteophytes and mild reactive marrow signal. There is superior acromioclavicular ligament thickening. Acromial morphology is curved, type II. There is mildly increased slightly complex synovial fluid in the subacromial subdeltoid bursa. There is a small subacromial spur. Axillary pouch: The axillary pouch is intact. Articular cartilage: There is a full-thickness articular cartilage defect in this central glenoid with adjacent reactive marrow signal. There is deep partial full-thickness articular cartilage loss in the superior lateral humeral head. Bones/Marrow: Degenerative cystic changes present in the greater tuberosity. Soft tissues: There is no muscle edema. There is mild fatty streaking from deconditioning. MR/MR shoulder LT wo con IMPRESSION: There is a full-thickness tear super space tendon with 2 cm retraction. Tear extends into anterior fibers of infraspinatus tendon. There is a possible deep partial-thickness bursal sided tear of subscapularis tendon. Long biceps tendon is torn and distally retracted. The superior labrum is essentially absent consistent with a degenerative tear. There is a small focal full-thickness articular cartilage defect in central glenoid with reactive marrow signal change. There is also deep partial to full-thickness cartilage loss in the superior humeral head. There is mild/moderate AC joint arthropathy. Acromion has a curved morphology. There is a small subacromial spur. There is a mildly complex subacromial subdeltoid bursal effusion. There is mild deconditioning of the left shoulder musculature. Electronically signed by: Kaushal Moraes MD 01/22/2025 10:49 AM [facility] Dictated By: Kaushal Moraes MD Signed By: <Electronically signed by Kaushal Moraes MD in OV> 01/22/25 1049 DD/ 1001 TD/TT: 01/22/25 1015 Chemical Checker: Procedure Note Emoryter, Image - 01/22/2025 [place] [address] Magnetic Resonance Report Signed Patient: Eulalia Ayala#: [id number] 4 : 9Acct:[id number] Age/Sex: 64 / FADM Date: 01/22/25 Loc: HO.MRI Attending Dr: Ko Villegas PA-C Ordering Physician: Ko Villegas PA-C Date of Service: 01/22/25 Procedure(s): MR shoulder LT wo con Accession Number(s): [id number] cc: Ko Villegas PA-C; Name,Gregg DIAMOND Reason for Exam: S46.009A - Unspecified injury of muscle(s) and tendon(s)of the rotator ... EXAMINATION: MRI Shoulder without contrast, left TECHNIQUE: Multiplanar multisequence MR imaging through an upper extremity joint without contrast. INDICATION: November 2024 patient fell and arm got stuck between concrete wall, limited range of motion and pain since then PRIOR: X-ray 12/13/2024 FINDINGS: Rotator Cuff: There is a full-thickness tear of supraspinatus tendon with 2 cm retraction. Tear extends into anterior fibers of infraspinatus tendon. Subscapularis tendon appears thin laterally (axial PD fat-sat image 01/09)?A deep bursal sided partial-thickness tear. Labrum: Superior labrum is torn and frayed. Long biceps tendon: Long biceps tendon is torn off of the labrum and distally retracted. The tendon is not clearly seen in the biceps groove. Acromioclavicular joint: AC joint is degenerated with marginal osteophytes and mild reactive marrow signal. There is superior acromioclavicular ligament thickening. Acromial morphology is curved, type II. There is mildly increased slightly complex synovial fluid in the subacromial subdeltoid bursa. There is a small subacromial spur. Axillary pouch: The axillary pouch is intact. Articular cartilage: There is a full-thickness articular cartilage defect in this central glenoid with adjacent reactive marrow signal. There is deep partial full-thickness articular cartilage loss in the superior lateral humeral head. Bones/Marrow: Degenerative cystic changes present in the greater tuberosity. Soft tissues: There is no muscle edema. There is mild fatty streaking from deconditioning. MR/MR shoulder LT wo con IMPRESSION: There is a full-thickness tear super space tendon with 2 cm retraction. Tear extends into anterior fibers of infraspinatus tendon. There is a possible deep partial-thickness bursal sided tear of subscapularis tendon. Long biceps tendon is torn and distally retracted. The superior labrum is essentially absent consistent with a degenerative tear. There is a small focal full-thickness articular cartilage defect in central glenoid with reactive marrow signal change. There is also deep partial to full-thickness cartilage loss in the superior humeral head. There is mild/moderate AC joint arthropathy. Acromion has a curved morphology. There is a small subacromial spur. There is a mildly complex subacromial subdeltoid bursal effusion. There is mild deconditioning of the left shoulder musculature. Electronically signed by: Kaushal Moraes MD 01/22/2025 10:49 AM EST Dictated By: Kaushal Moraes MD Signed By: <Electronically signed by Kaushal Mroaes MD in OV> 01/22/25 1049 DD/ 1001 TD/TT: 01/22/25 1015 Chemical Checker: [facility] External Provider IMG MRI PROCEDURES Final Result * D Dimer High Sensitivity (12/22/2024 7:51 PM EST) D Dimer High Sensitivity 263 NG/ML [facility] Comment:D-DIMER HS REFERENCE RANGENote: Our assay reports D-Dimer Units (D- DU).The cut-off value for venous thromboembolic (VTE) disease is230 ng/mL. This value has a very high negative predictivevalue when the patient has a low to moderate clinicalprobability of VTE.The upper limit of normal is 243 ng/mL. 12/22/2024 7:51 PM EST 12/22/2024 7:55 PM EST Generic External Data Provider LAB BLOOD ORDERAB LES Final Result Performing Organization Address [facility] de Phone Number [facility] [address] [place] [phone] * High Sensitivity Troponin I (12/22/2024 7:51 PM EST) TROPONIN I HIGH SENSITIVITY <2.7 <3.5 - 17.0 ng/L [facility] Comment:The Coles high sens itivity Troponin-I results should beused in conjunction with other diagnostic information suchas ECG, clinical observations and information, and patientsymptoms to aid in the diagnosis of VA. 12/22/2024 7:51 PM EST 12/22/2024 7:55 PM EST Generic External Data Provider LAB BLOOD ORDERAB LES Final Result Performing Organization Address [facility] Phone Number [facility] [address] [place] [phone] * XR Chest 2 Views (12/22/2024 6:47 PM EST) Anatomical Region Laterality Modality Chest Radiographic Afsaneh ging 12/22/2024 6:47 PM EST Narrative 12/22/2024 6:48 PM EST [address] [address] XRay Report Signed Patient: Mag Ayala MR#: [id number] 4 : 1960 Acct:[id number] Age/Sex: 64 / F ADM Date: 12/22/24 Loc: HO.ED Attending Dr: Ordering Physician: Mary Lara Date of Service: 12/22/24 Procedure(s): XR chest 2V Accession Number(s): [id number] cc: Oksana,Gregg DIAMOND; Mary Lara Reason for Exam: CP CLINICAL HISTORY: CP 2 view chest x-ray Comparison: CR/SR - XR CHEST 2 VIEWS - 01/28/24 11:42 EST Findings: The lungs are clear. Heart size is normal. No acute fracture. Cholecystectomy clips. IMPRESSION: 1. No acute findings. This document has been electronically signed by: Shanice Hayes MD on 12/22/2024 18:47:52 Dictated By: Shanice Hayes MD Signed By: <Electronically signed by Shanice Hayes MD in OV> 12/22/241847 DD/ 46 TD/TT: 12/22/241846 Chemical Checker: Procedure Note Donotuseinterpreter, Image - 12/22/2024 [place] [address] XRay Report Signed Patient: Eulalia Ayala#: [id number] 4 : 9Acct:[id number] Age/Sex: 64 / FADM Date: 12/22/24 Loc: HO.ED Attending Dr: Ordering Physician: Mary Lara Date of Service: 12/22/24 Procedure(s): XR chest 2V Accession Number(s): [id number] cc: Gregg Gandhi MD; Mary Lara Reason for Exam: CP CLINICAL HISTORY: CP 2 view chest x-ray Comparison: CR/SR - XR CHEST 2 VIEWS - 01/28/24 11:42 EST Findings: The lungs are clear. Heart size is normal. No acute fracture. Cholecystectomy clips. IMPRESSION: 1. No acute findings. This document has been electronically signed by: Shanice Hayes MD on 12/22/2024 18:47:52 Dictated By: Shanice Hayes MD Signed By: <Electronically signed by Shanice Hayes MD in OV> 12/22/241847 DD/ 46 TD/TT: 12/22/241846 Chemical Checker: [facility] External Provider IMG XR PROCEDURES Final Result * BI Mammogram Screening Tomosynthesis Bilateral (04/20/2023 12:05 PM EST) Anatomical Region Laterality Modality Breast Bilateral Mammography 04/20/2023 12:0 5 PM EST Narrative 05/05/2023 8:29 AM EDT [facility] [address] [place] [address] Mammography Report Signed Patient: Mag Ayala MR#: [id number] 4 : 1960 Acct:[id number] Age/Sex: 62 / F ADM Date: 04/20/23 Loc: HO.MAMMO Attending Dr: Gregg Gandhi MD Ordering Physician: Gregg Gandhi MD Results: 1Negative Date of Service: 04/20/23 Follow Up: 1 Year From Orig inal Mammogram Procedure(s): MM tomosynthesis screening BI Accession Number(s): [id number] cc: Gregg Gandhi MD EXAMINATION: MM SCREENING [...] in OV> 05/05/23 0825 DD/ 1205 TD/TT: Chemical Checker: Procedure Note Donotuseinterpreter, Image - 05/05/2023 [place] [facility] [address] [place], [place] [address] Mammography Report Signed Patient: Eulalia Ayala#: [id number] 4 : 9Acct:[id number] Age/Sex: 62 / FADM Date: 04/20/23 Loc: HO.MAMMO Attending Dr: Gregg Gnadhi MD Ordering Physician: Gregg Gandhi MDResults: 1Negative Date of Service: 04/20/23Follow Up: 1 Year From Orig inal Mammogram Procedure(s): MM tomosynthesis screening BI Accession Number(s): [id number] cc: Gregg Gandhi MD EXAMINATION: MM SCREENING [...] in OV> 05/05/23 0825 DD/ 1205 TD/TT: Chemical Checker: Gregg Gandhi MD IMG BI PROCEDURES Final [...] LDL-C. Darek SS et al. BOO. 2013;310(19): 2894-7449 (http://education.[employer].com/faq/OQR329) Non-HDL Cholesterol 125 <130 mg/dL (calc) [facility] Comment: For patients with diabetes plus 1 major ASCVD risk factor, treating to a non-HDL-C goal of <100 mg/dL (LDL-C of <70 mg/dL) is considered a therapeutic option. Triglycerides 80 <150 mg/dL [facility] 05/20/2020 9:32 AM EDT Gregg Gandhi MD LAB BLOOD ORDERABLES Final Resul t [facility] [address] from Last 3 Months or Most Recently Relevant to Health Maintenance Insurance [facility] STANDARD FORMERLY [facility] HALFWAY OPTIONS (HMO D-SNP) Care Teams Infant Teacher Relationship Specialty Start Date End Date Name, MD Gregg [address] [place] [address] PCP - General Family Medicine 04/16/15 [facility] 05/23/24
--- OUTSIDE RECORDS SUMMARY | 2025-02-01 14:39 | XMS_ITS | Encounter Summary ---
Author Organization [employer] Address [address] [place] [address] Care Team Providers Care Grey Roll Worker Name Role Phone Name, Gregg DIAMOND Primary Care Provider [phone] Encounter Details Date Type Department Care Team (Late st Contact Info) Description 07/26/2024 Orders Only [facility] [address] [place], [place] [phone] Joann Angel NP [address] [place] [address] Obesity (BMI 30-39.9) (Primary Dx) Social History [...] Description 03/06/2025 9:00 AM EST Office Visit [facility] [address] [place] [phone] Gregg Gandhi MD [address] [place] [phone] 03/09/2025 10:00 AM EST Office Visit [facility] ADULT DENTAL [address] [place] [address] Ayan Calvin DMD [address] [place] [address] 07/02/2025 10:15 AM EDT Office Visit [facility] ADULT [facility]ENT[facility] [address] [place] [address] Faye Mi documented as of this encounter Visit Diagnoses Diagnosis Obesity (BMI 30-39.9)- Primary documented in this encounter Additional Health Concerns Assessment Noted Time PHQ-9 Depression Total Score: 1 07/18/19 25 11:20 AM EDT documented as of this encounter Care Teams Grey Roll Worker Relationship Specialty Start Date End Date NameGregg MD [address] [place] [address] PCP - General Family Medicine 04/16/15 [facility] 05/23/24 documented as of this encounter
--- OUTSIDE RECORDS SUMMARY | 2025-02-01 14:39 | XMS_ITS | Encounter Summary ---
Author Organization [employer] Address [address] [place] [address] Care Team Providers Care Marine Consultant Name Role Phone Name, Gregg DIAMOND Primary Care Provider [phone] Reason for Visit * Reason Comments Med Refill Encounter Details Date Type Department Care Team ([facility] st Contact Info) Description 02/14/[address] [facility] [address] [place] [address] Name, MD Gregg [address] [place] [address] Social History Tobacco Use Types Packs/Day Years [...] Description 03/06/2025 9:00 AM EST Office [address] [facility] [address] [place] [phone] NameGregg MD [address] [place] [phone] 03/09/2025 10:00 AM EST Office Visit [facility] ADULT DENTAL [address] [place] [phone] Ayan Calvin, RAMIREZ [address] [place] [address] 07/02/2025 10:15 AM EDT Office Visit [facility] ADULT [facility] [address] [place] [address] Faye Mi documented as of this encounter Visit Diagnoses Not on filedocumented in this encounter Additional Health Concerns Assessment Noted Time PHQ-9 Depression Total Score: 0 09/01/19 24 10:42 AM EDT documented as of this encounter Care Teams Marine Consultant Relationship Specialty Start Date End Date Name, MD Gregg [address] [place] [phone] PCP - General Family Medicine 04/16/15 [facility] 05/23/24 documented as of this encounter
--- OUTSIDE RECORDS SUMMARY | 2025-02-01 14:39 | XMS_ITS | Encounter Summary ---
Author Organization [employer] Address [address] [place] [address] Care Team Providers Care Photoengraving Retoucher Name Role Phone Name, Gregg DIAMOND Primary Care Provider [phone] Reason for Visit * Reason Onset Date Comments Dr. 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 Calvin unable to use dentures Social [...] 9:00 AM EST Office Visit [facility] MED[facility] [address] [place] [address] Name, MD Gregg [address] [place] [address] 03/09/2025 10:00 AM EST Office Visit [facility] ADULT [facility] [address] [place] [address] Ayan Calvin, DMD [address] [place] [address] 07/02/2025 10:15 AM EDT Office Visit [facility]ULT [facility] [address] [place] [address] Faye Mi documented as of this encounter Visit Diagnoses Not on filedocumented in this encounter Additional Health Concerns Assessment Noted Time PHQ-9 Depression Total Score: 1 07/18/19 11:20 AM EDT documented as of this encounter Care Teams Photoengraving Retoucher Relationship Specialty Start Date End Date Name, MD Gregg [address] [place] [address] PCP - General Family Medicine 04/16/15 [facility] 05/23/24 documented as of this encounter
--- OUTSIDE RECORDS SUMMARY | 2025-02-01 14:39 | XMS_ITS | Encounter Summary ---
Author Organization [employer] Address [address] [place] [address] Care Team Providers Care Muck Farmer Name Role Phone Name, Gregg DIAMOND Primary Care Provider [phone] Reason for Visit * Reason Comments Med Refill Encounter Details Date Type Department Care Team ([facility] st Contact Info) Description 11/16/2023 Refill [facility] [address] [place] [address] Yennifer Ramirez MD [address] [place] [address] Flu-like symptoms Social History Tobacco Use Types [...] Office Visit [facility] MED[facility] [address] [place] [address] Gregg Gandhi MD [address] [place] [address] 03/09/2025 10:00 AM EST Office Visit [facility] ADULT DENTAL [address] [place] [address] Ayan Calvin DMD [address] [place] [address] 07/02/2025 10:15 AM EDT Office Visit [facility] ADULT [facility] [address] [place] [address] Faye Mi documented as of this encounter Visit Diagnoses Diagnosis Flu-like symptoms documented in this encounter Additional Health Concerns Assessment Noted Time PHQ-9 Depression Total Score: 0 09/01/19 24 10:42 AM EDT documented as of this encounter Care Teams Muck Farmer Relationship Specialty Start Date End Date Gregg Gandhi MD [address] [place] [address] PCP - General Family Medicine 04/16/15 [facility] 05/23/24 documented as of this encounter
--- OUTSIDE RECORDS SUMMARY | 2025-02-01 14:40 | XMS_ITS | Encounter Summary ---
Author Organization [employer] Address [address] 7[address] [place] [address] Care Team Providers Care Endocrinology Physician Name Role Phone Name, Gregg DIAMOND Primary Care Provider [phone] Reason for Visit * Reason Onset Date Comments Request For Order(s) 07/30/2023 Encounter Details Date Type Department Care Team ([facility] st Contact Info) Description 07/30/2023 Telephone [facility] MED[facility] [address] [place] [address] Name, MD Gregg [address] [place] [address] Request For Order(s) Social History Tobacco Use [...] done. Please clarify Please contact pt at [phone] (No saute chef needed) documented in this encounter Plan of Treatment Upcoming Encounters Date Type Department Care Team (Late st Contact Info) Description 03/06/2025 9:00 AM EST Office Visit [facility] [address] [place] [address] Gregg Gandhi MD [address] [place] [address] 03/09/2025 10:00 AM EST Office Visit [facility] ADULT DENTAL [address] [place] [address] Ayan Calvin, RAMIREZ [address] [place] [address] 07/02/2025 10:15 AM EDT Office Visit [facility] ADULT [facility] [address] [place] [address] Faye Mi documented as of this encounter Visit Diagnoses Not on filedocumented in this encounter Additional Health Concerns Assessment Noted Time PHQ-9 Depression Total Score: 7 03/04/19 23 9:17 AM EST documented as of this encounter Care Teams Endocrinology Physician Relationship Specialty Start Date End Date Gregg Gandhi MD [address] [place] [address] PCP - General Family Medicine 04/16/15 [facility] 05/23/24 documented as of this encounter
--- OUTSIDE RECORDS SUMMARY | 2025-02-01 14:40 | XMS_ITS | Encounter Summary ---
Author Organization [employer] Address [address] [place] [address] Care Team Providers Care Developer Programmer Name Role Phone Name, Gregg DIAMOND Primary Care Provider [phone] Reason for Visit * Reason Onset Date Comments Appointment Request 05/24/2024 Encounter Details Date Type Department Care Team ([facility] Contact Info) Description 05/24/2024 Telephone [facility] [address] [place] [address] Name, MD Gregg [address] [place] [address] Appointment Request Social History Tobacco Use Types [...] the phone she will. Contact pt at [phone] documented in this encounter Plan of Treatment Upcoming Encounters Date Type Department Care Team (Late st Contact Info) Description 03/06/2025 9:00 AM EST Office Visit [facility] [address] [place] [address] Name, MD Gregg [address] [place] [address] 03/09/2025 10:00 AM EST Office Visit [facility] ADULT DENTAL [address] [place] [address] Ayan Calvin, RAMIREZ [address] [place] [address] 07/02/2025 10:15 AM EDT Office Visit [facility] ADULT DENTAL [address] [place] [address] Faye Mi documented as of this encounter Visit Diagnoses Not on filedocumented in this encounter Additional Health Concerns Assessment Noted Time PHQ-9 Depression Total Score: 0 09/01/19 24 10:42 AM EDT documented as of this encounter Care Teams Developer Programmer Relationship Specialty Start Date End Date Name, MD Gregg [address] [facility] [place] [address] PCP - General Family Medicine 04/16/15 [facility] 05/23/24 documented as of this encounter
--- OUTSIDE RECORDS SUMMARY | 2025-02-01 14:40 | XMS_ITS | Encounter Summary ---
Author Organization [employer] Address [address] [place] [address] Care Team Providers Care Vacation Planner Name Role Phone Name, Gregg DIAMOND Primary Care Provider Reason for Visit * Reason Comments Med Refill Encounter Details Date Type Department Care Team ([facility] st Contact Info) Description 06/07/2024 Refill [facility] MED[facility] [address] [place] [address] Name, MD Gregg [address] [place] [address] Social History Tobacco Use Types Packs/Day Years [...] Visit [facility] MED[facility]INE [address] [place] [address] NameGregg MD [address] [place] [address] 03/09/2025 10:00 AM EST Office Visit [facility] ADULT DENTAL [address] [place] [address] Ayan Calvin, RAMIREZ [address] [place] [address] 07/02/2025 10:15 AM EDT Office Visit [facility] ADULT DENTAL [address] [place] [address] Faye Mi documented as of this encounter Visit Diagnoses Not on filedocumented in this encounter Additional Health Concerns Assessment Noted Time PHQ-9 Depression Total Score: 0 09/01/19 24 10:42 AM EDT documented as of this encounter Care Teams Vacation Planner Relationship Specialty Start Date End Date Name, MD Gregg [address] [place] [address] PCP - General Family Medicine 04/16/15 [facility] 05/23/24 documented as of this encounter
--- OUTSIDE RECORDS SUMMARY | 2025-02-01 14:40 | XMS_ITS | Encounter Summary ---
Author Organization [employer] Address [address] [place] [address] Care Team Providers Care General Ii Farmworker Name Role Phone Name, Gregg DIAMOND Primary Care Provider [phone] Reason for Visit * Reason Comments Med Refill Encounter Details Date Type Department Care Team ([facility] st Contact Info) Description 07/13/2023 Refill [facility] MEDICINE [address] [place] [address] Ban Granados FNP [address] [place] [address] Social History Tobacco Use Types Packs/Day Years [...] the past 12 months, has t he [employer], [employer], oil or water [employer] threatened to shut off services in your [...] 3:57 PM EDT Pt came into the [facility] asking for refills on Wegomy meds. She wants Dr. Granados to send the refill in two days to be able to cone picker in pharmacy. 07/13/23 documented in this encounter Plan of Treatment Upcoming Encounters Date Type Department Care Team (Late st Contact Info) Description 03/06/2025 9:00 AM EST Office Visit [facility] MEDICINE [address] [place] [address] Name, MD Gregg [address] [place] [address] 03/09/2025 10:00 AM EST Office Visit [facility] ADULT DENTAL [address] [place] [address] Ayan Calvin, RAMIREZ [address] [place] [address] 07/02/2025 10:15 AM EDT Office Visit [facility] ADULT DENTAL [address] [place] [address] Faye Mi documented as of this encounter Visit Diagnoses Not on filedocumented in this encounter Additional Health Concerns Assessment Noted Time PHQ-9 Depression Total Score: 7 03/04/19 9:17 AM EST documented as of this encounter Care Teams General Ii Farmworker Relationship Specialty Start Date End Date Name, MD Gregg [address] [place] [address] PCP - General Family Medicine 04/16/15 [facility] 05/23/24 documented as of this encounter
--- OUTSIDE RECORDS SUMMARY | 2025-02-01 14:40 | XMS_ITS | Data Portability ---
Author Organization [place] [facility] Address [address] [address] Assessment No assessment recorded. Plan of Treatment [...] Address Organization Details Recorded Time Impacted cerumen 80577360 Active 2014 Disorders of external ear: Impacted cerumen; Note: Date Diagnosed : 11/12/2014 9:15 PM (380.4) Not Available [facility] 4 02:41:52 Unilatera l sensorine ural hearing loss with unrestric peggy hearing on the contralat eral side Active 2014 Sensorine ural HL, unilatera l; Note: Date Diagnosed : 11/12/2014 9:56 PM (389.15) Not Available [facility] 4 02:41:44 Infective otitis externa 74566606 Active 2014 Acute otitis externa; Note: Date Diagnosed : 11/12/2014 9:55 PM (380.10) Not Available [facility] 4 02:41:48 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 hearing on the contralat eral side Active 2014 Mixed hearing loss, unilatera l; Note: Date Diagnosed : 11/12/2014 9:56 PM (389.21) Not Available [facility] 4 02:41:46 Infective otitis externa of left ear 91289812949 94984 Active 2014 Other infective otitis externa, left ear; Note: Date Diagnosed : 11/15/2014 4:59 PM (H60.392) Not Available [facility] 4 02:41:47 Impacted cerumen in left ear 36599400045 07556 Active 2014 Impacted cerumen, left ear; Note: Date Diagnosed : 11/15/2014 4:59 PM (H61.22) Not Available [facility] 4 02:41:51 Mixed conductiv e and sensorine ural hearing loss of left ear 64247767466 107 Active 2014 Mixed conductiv e and sensorine ural hearing loss, unilatera l, left ear, with unrestric peggy hearing on the contralat eral side; Note: Date Diagnosed : 11/15/2014 5:00 PM (H90.72) Not Available [facility] 4 02:41:46 Mixed conductiv e and sensorine ural hearing loss of right ear 91883524880 105 Active 2014 Mixed conductiv e and sensorine ural hearing loss, unilatera l, right ear, with unrestric peggy hearing on the contralat eral side; Note: Date Diagnosed : 11/15/2014 5:00 PM (H90.71) Not Available [facility] 4 02:41:49 Sensorine ural hearing loss 98648736 Active 2014 Sensorine ural hearing loss, unilatera l, right ear, with unrestric peggy hearing on the contralat eral side; Note: Date Diagnosed : 5 1:13 PM (H90.41) Not Available [facility] 4 02:41:50 Impacted cerumen of bilateral ears 40347434645 98192 Active 2015 Impacted cerumen, bilateral ; Note: Date Diagnosed : 08/12/2015 12:36 PM (H61.23) Not Available [facility] 4 02:41:46 Itching of skin 458749671 Active 2016 Other pruritus; Note: Date Diagnosed : 04/10/2016 11:46 AM (L29.8) Not Available [facility] 4 02:41:47 Dysphonia 07102809 Active 2016 Dysphonia ; Note: Date Diagnosed : 05/13/2016 10:26 AM (R49.0) Not Available [facility] 4 02:41:43 Chronic pharyngit is 543829 Active 2016 Chronic sore throat; Note: Date Diagnosed : 05/13/2016 10:24 AM (J31.2) Not Available [facility] 4 02:41:44 Dizziness and giddiness 876295491 Active 2016 Dizziness and giddiness ; Note: Date Diagnosed : 08/17/2016 1:43 PM (R42) Not Available [facility] 4 02:41:51 Sensorine ural hearing loss of bilateral ears 760950481 Active 2016 Sensorine ural hearing loss, bilateral ; Note: Date Diagnosed : 7 4:52 PM (H90.3) Sensori neural hearing loss, bilateral ; Note: Date Diagnosed : 08/12/2015 11:37 AM (H90.3) ; Start Date : 6 Not Available [facility] 4 02:41:48 Otorrhea of right ear 09206145519 53041 Active 2020 Otorrhea, right ear; Note: Date Diagnosed : 04/15/2020 9:41 AM (H92.11) Not Available [facility] 4 02:41:49 Benign paroxysma l positiona l vertigo 569978051 Active 2020 Benign paroxysma l vertigo, left ear; Note: Date Diagnosed : 1 9:47 AM (H81.12) Not Available [facility] 4 02:41:53 Problem Notes None [...] by mouth 03/20 completed Medicati on ID: [id number] Du ration Value: 7 Brand Name: Augmenti n Send Method: E-Prescr ibed Sub s Allowed: subs OK Medic ationGen ericName : Augmenti n Not Available Not Available Not Available Qvar 80 mcg/actua tion Metered Aerosol oral inhaler 03/20 completed Medicati on ID: [id number] D uration Value: 30 Brand Name: Qlulu [...] mg tablet 03/21 completed Medicati on ID: [id number] D uration Value: 30 Reason: () Brand Name: briandajaneth nikhil Garcia d Method: E-Prescr ibed Sub s Allowed: subs OK Medic ationGen ericName : perphena maytene Not Available Not Available Not Available ipratropi um 0.5 mg-albute rol 3 mg (2.5 mg base)/3 mL nebulizat ion soln 03/20 completed Medicati on ID: [id number] D uration Value: 7 Brand Name: ipratrop [...] 2 drop 03/20 completed Medicati on ID: [id number] Du ration Value: 7 Prescri bed By Name: Josue johnson MD Brand Name: Maxidex Send Method: E-Prescr ibed Sub s Allowed: subs OK [facility] Not Available Not [...] ear drops 03/20 completed Medicati on ID: [id number] Br and Name: Debrox S end Method: [...] 3 drop 03/20 completed Medicati on ID: [id number] D uration Value: 10 Brand Name: Pred [...] mg tablet 03/21 completed Medicati on ID: [id number] D uration Value: 28 Reason: () Brand Name: oxycodon e-acetam inophen Send Method: E-Prescr ibed Sub s Allowed: subs OK Medic ationGen ericName : oxycodon e-acetam inophen Not Available Not Available Not Available ofloxacin 0.3 % ear drops Apply 5 drop into both ears twice a day 03/20 completed Medicati on ID: [id number] D uration Value: 7 Brand Name: ofloxaci n Send Method: E-Prescr ibed Sub s Allowed: subs OK [facility] : ofloxaci n Not Available [...] mg tablet 12/22 completed Medicati on ID: [id number] Re ason: () Brand Name: Klonopin Send Method: E-Prescr ibed Sub s Allowed: subs OK [facility] : Klonopin Not Available Not Available Not Available meclizine 25 mg tablet TAKE 1 TABLET BY MOUTH TWICE DAILY NEEDED active Not Available Not Available No t Available baclofen 10 mg tablet 2018 active Medicati on ID: [id number] D uration Value: 30 Brand Name: baclofen Send Method: E-Prescr ibed Sub s Allowed: subs OK Speci al Instruct ion: TAKE 1 TABLET TWICE DAILY Me dication GenericN galindo: baclofen Not Available Not Available Not Available doxepin 100 mg capsule 09/30 completed Medicati on ID: [id number] Re ason: () Brand Name: doxepin Send Method: E-Prescr ibed Sub s Allowed: subs OK [facility] : doxepin Not Available Not [...] mcg tablet 03/21 completed Medicati on ID: [id number] D uration Value: 30 Reason: () Brand [...] for pain 03/21 completed Medicati on ID: [id number] Re ason: () Brand Name: oxycodon e Send Method: E-Prescr ibed Sub s Allowed: subs OK Medic ationGen ericName : oxycodon e Not Available Not Available Not Available Advair Diskus 250 mcg-50 mcg/dose powder for inhalatio n INHALE 1 PUFF BY MOUTH TWICE DAILY active Not Available Not Available No t Available clotrimaz ole 1 % topical solution 03/20 completed Medicati on ID: [id number] P dain rubio By Name: Josue johnson [...] elayed release 03/20 completed Medicati on ID: [id number] D uration Value: 30 Brand Name: omeprazo le Send Method: E-Prescr ibed Sub s Allowed: subs OK Speci al Instruct ion: TAKE 1 CAPSULE BY MOUTH EVERY DAY 30 MINUTES TO 1 HOUR BEFORE MEALS Me dication GenericN galindo: omeprazo le Not Available Not Available Not Available Cortispor in 3.5 mg/g-10,0 00 unit/g-0. 5 % topical cream 12/22 completed Medicati on ID: [id number] Re ason: () Brand Name: Cortispo rin Send Method: E-Prescr ibed Sub s Allowed: subs OK Medic ationGen ericName : Cortispo rin Not Available Not Available Not Available hydroxyzi ne HCl 25 mg tablet TAKE 1 TABLET BY MOUTH THREE TIMES DAILY NEEDED FOR ANXIETY active Not Available Not Available No t Available topiramat e 200 mg tablet 03/20 completed Medicati on ID: [id number] D uration Value: 30 Brand Name: topirama [...] mg tablet 03/20 completed Medicati on ID: [id number] D uration Value: 20 Brand Name: ibuprofe [...] left ear 03/20 completed Medicati on ID: [id number] D uration Value: 7 Brand Name: Cortispo [...] drops,rigo pension 03/20 completed Medicati on ID: [id number] D uration Value: 14 Brand Name: TobraDex Send Method: E-Prescr ibed Sub s Allowed: subs OK Speci al Instruct ion: Instill 3 drops in the affect ear BID for 10 days Med icationG enericNa me: TobraDex Not Available Not Available Not Available Flovent HFA 220 mcg/actua tion aerosol inhaler 03/20 completed Medicati on ID: [id number] D uration Value: 60 Brand Name: Flovent [...] as directed 03/20 completed Medicati on ID: [id number] D uration Value: 7 Brand Name: DermOtic [...] mcg capsule 11/12 completed Medicati on ID: [id number] Re ason: () Brand Name: Tirosint Send [...] Updated DateTime 03/20/2024 160.02 cm 30.8 kg/m2 43648.07 g Natacha Childs [facility] 03/20/2024 13:01:51 Date Recorded Body height Body mass index (BMI) Body weight Provider Name and Address Organization Details Last Updated DateTime 08/14/2024 160.02 cm 31.9 kg/m2 82384.63 g Natacha Childs [facility] 08/14/2024 12:59:51 Social History None recorded. Functional Status None recorded. Mental Status None recorded. Family History Nothing Reported. Medical History No medical history recorded. Gynecological HistoryNo gynecological history recorded. Obstetrics History GPAL:G 0 P 0 0 0 0 Past Encounters Encounter ID Performer Location Encounter Start Date Encounter Closed Date Diagnosis/Indication Diagnosis SNOMED-CT Code Diagnosis ICD10 Code Diagnosis IMO Codes Diagnosis Note [id number] JOSUE SHEPHERD MD [facility] [address] [address] 03/20/2024 12:52:27 03/20/2024 13:16:19 Impacted cerumen of bilateral ears [id number] 248708 H61.23 She has very narrow canals and gets debris impacted against the TM bilaterall y. Cerumen removed and tolerated well. [id number] JOSUE SHEPHERD MD [facility] [address] [address] 08/14/2024 12:21:01 08/14/2024 13:07:51 Impacted cerumen of bilateral ears 9834447511 469774 H61.23 She has very narrow canals and [...] Schrader Member ID Guarantor Name 12/16/2024 1 [facility] - DOS ON OR AFTER 2022 - PENITENTIARY OPTIONS AND ONE CARE (MEDICARE REPLACEMENT/AD VANTAGE - PPO) Mag Ayala [id number] Mag Ayala 12/15/2024 1 [place]: [facility] Mag Ayala [id number] Mag Ayala Notes Date Note Type Note Provider Name and Address Organization Details Recorded Time 03/20/2024 text/html Dizziness now and then, having some ear itching. JOSUE SHEPHERD MD [address] [place] [address], [id number], [place] [facility] 03/20/2024 17:18:34 08/14/2024 text/html 63-year-old female presents today for routine ear cleaning. She has chronic pruritus. Spinal stenosisKnee pain JOSUE SHEPHERD MD [address] [place] [address], [id number], [place] [facility] 08/15/2024 09:20:47 OBGyn Episode No OBEpisode recorded.
--- OUTSIDE RECORDS SUMMARY | 2025-02-01 14:40 | XMS_ITS | Encounter Summary ---
Author Organization [employer] Address [address] [facility] [address] [place] [address] Care Team Providers Care Poacher Operator Name Role Phone Name, Gregg DIAMOND Primary Care Provider [phone] Reason for Visit * Reason Onset Date Comments Nurse Triage 05/04/2024 Encounter Details Date Type Department Care Team ([facility] st Contact Info) Description 05/04/2024 Telephone [facility] MEDICINE [address] [place] [address] Name, MD Gregg [address] [place] [address] Nurse Triage Social History Tobacco Use Types [...] information. Do see mention of hemorrhoids. No noise tester needed as this screenplay writer speaks Japanese. Call returned to Mag Ayala to triage [...] to perform UA. Pt requesting referral to Bagel Maker per recommendation from Low Pressure Kettle Operator. Pt advised will forward note to [...] Pain or Irritation * Telephone Encounter - Mrala Magallon - 05/04/2024 12:44 PM EDT Symptom: Rectal Symptoms - Not Bleeding Outcome: Schedule an appointment to be seen within 3 days Reason: Caller denied all higher acuity questions The caller accepted this outcome. [phone] (south sudanese) pt states knows Turkmen but there are some words she can't say or understand. Tc from pt stating visited the assistant store manager operations today, and he told pt should ask her PCP for a referral for a prosthetic because pt has several purple veins in the anus. Pt states this hasn't happenedto her before. documented in this encounter Plan of Treatment Upcoming Encounters Date Type Department Care Team (Late st Contact Info) Description 03/06/2025 9:00 AM EST Office Visit [facility] MEDICINE [address] [place] [address] Name, MD Gregg [address] [place] [address] 03/09/2025 10:00 AM EST Office Visit [facility] ADULT DENTAL [address] [place] [address] Ayan Calvin DMD [address] [place] [address] 07/02/2025 10:15 AM EDT Office Visit [facility] ADULT DENTAL [address] [place] [address] Faye Mi documented as of this encounter Visit Diagnoses Not on filedocumented in this encounter Additional Health Concerns Assessment Noted Time PHQ-9 Depression Total Score: 0 09/01/19 10:42 AM EDT documented as of this encounter Care Teams Poacher Operator Relationship Specialty Start Date End Date Name, MD Gregg [address] [facility] [place] [address] PCP - General Family Medicine 04/16/15 [facility] 05/23/24 documented as of this encounter
--- OUTSIDE RECORDS SUMMARY | 2025-02-01 14:40 | XMS_ITS | Encounter Summary ---
Author Organization [employer] Address 75 [facility] [address] 7[address] [place] [address] Care Team Providers Care Medical And Health Services Manager Name Role Phone Name, Gregg DIAMOND Primary Care Provider [phone] Reason for Visit * Reason Onset Date Comments ER Follow-up 05/02/2024 Nurse Triage 05/02/2024 Encounter Details Date Type Department Care Team ([facility] st Contact Info) Description 05/02/2024 Telephone [facility] MEDICINE [address] [place] [address] Name, MD Gregg [address] [place] [address] ER Follow-up; Nurse Triage Social History Tobacco [...] rollator walker. TC placed to [facility] pharamcyregarding the fosamax. Lori states the [...] in June as she will leaving for [place] at the beginning of June Pt requesting a call from PCP. Scalp Treatment Operator found telehealth visit in PCP schedule. Pt [...] more information. TC placed to [facility] pharamcy regardingthe fosamax. Lori states the [...] She states that she went to the [facility] yesterday due to right leg pain and right knee isswollen. Pt. Was also having throbbing pain in left side of groin. [facility] did not find any blood clot in leg and Xray of left hip and pelvis-negative. ED is recommending referral to Guide Winder according to pt. Pt does not want [...] that she remembers. Pt. Needs referral to Guide Winder. Offered pt. Appt. Today but, pt. Only wants to speak to pcp and is requesting appt. With PCP only or call from PCP to discuss updates and needs. Please get back to pt. To let her know if any of these needs can be met Will send request to Clinical coordinators to get [facility] report from yesterday into pt. Chart. Multiple needs. * Telephone Encounter - Shubham Booth - 05/02/2024 10:20 AM EDT Patient calling to report ED visit on : Date: 05/01/2024 Hospital: [facility] Seen for: Knee pain , groin pain [...] 9:00 AM EST Office Visit [facility] MEDICINE [address] [place] [address] Name, MD Gregg [address] [place] [address] 03/09/2025 10:00 AM EST Office Visit [facility] ADULT DENTAL [address] [place] [address] Ayan Calvin DMD [address] [place] [address] 07/02/2025 10:15 AM EDT Office Visit [facility] ADULT DENTAL [address] [place] [address] Faye Mi documented as of this encounter Visit Diagnoses Not on filedocumented in this encounter Additional Health Concerns Assessment Noted Time PHQ-9 Depression Total Score: 0 09/01/19 10:42 AM EDT documented as of this encounter Care Teams Medical And Health Services Manager Relationship Specialty Start Date End Date Name, MD Gregg [address] [place] [address] PCP - General Family Medicine 04/16/15 [facility] 05/23/24 documented as of this encounter
--- OUTSIDE RECORDS SUMMARY | 2025-02-01 14:40 | XMS_ITS | Continuity of Care Document ---
Author Organization [place] [facility] [employer], [facility] Address [address] [place] [address] Care Team Providers Care Home Theater Installer Name Role Phone HIM CCA OTHER NAME, CUAUHTEMOC Primary Care Provider [phone] Assessment Encounter Date Assessment Date Assessment LastModified by Organization Details LastModified Time 12/22/2024 12/22/2024 Evaluation in the field was performed by my guest relations agent colleague, as noted above, I provided real-time [...] why, say you'd have to ask the timber feller. Has not tried ice/heat, acetaminophen, or anything [...] first. Then she will drive herself to [place] [facility]. Disposition: Transport to ED [email or web address] Not available 12/22/2024 16:22:15 Plan of Treatment Reminders Order Date Submit Date Provider Last Modified By Organization Details Last Modified Time Details Appointments None recorded. Lab None recorded. Referral None recorded. Procedures None recorded. Surgeries None recorded. Imaging electrocard iogram 2024 025 [facility] [place] [facility], [address] [place] [address], [phone] 16:22:35 Medication Orders acetaminoph en 500 mg tablet 2024 025 [email or web address] [facility], [address] [place] [address], [id number], 15:39:44 Patient TargetsNo targets recorded. Patient InstructionsNo instructions recorded. Reason for Referral None Reported. Results Created Date Observation Date Name Description Value Unit Range Abnormal Flag Note LastModifiedBy Organization Detail LastModifiedTime 12/23/1912/22/2024 elect arias kam am No observ ation record ed. [email or web address] [address], [phone] 12/22/2024 17:33:19 Result Notes None recorded. Problems Name Problem SNOMED Code Status Onset Date Resolution Date Notes Provider Name and Address Organization Details Recorded Time Benign intracran ial hypertens ion 79737112 Active 2011 Loki Barajas MD [address] [place] [address],[address], [place], [address], [employer] 18:36:13 Mixed anxiety and depressiv e disorder 912352142 Active 2011 Loki Barajas MD [address] [place] [address],[address], [place], [address], [employer] 18:37:21 Hypertens wanda disorder 88853323 Active 2011 Loki Barajas MD [address] [place] [address],[address], [place], [address], [employer] 18:36:41 Morbid obesity 744655165 Active 2011 Loki Barajas MD [address] [place] [address],[address], [place], [address], [place] [employer] 18:36:22 Obstructi ve sleep apnea syndrome 48634325 Active 2012 Loki Barajas MD [address] [place] [address],[address], [place], [address], [place] [facility] [employer] 18:36:34 Asthma 115528757 Active 2012 Loki Barajas MD [address] [place] [address],[address], [place], [address], [place] [employer] 18:37:24 History of adrenalec gerri 166289797105 106 Active 2012 Loki Barajas MD [address] [place] [address],[address], [place], [address], [place] [employer] 18:37:15 Mixed conductiv e and sensorine ural hearing loss of right ear 274584739567 05 Active 2014 Mixed conductiv e and sensorine ural hearing loss, unilatera l, right ear, with unrestric peggy hearing on the contralat eral side; Note: Date Diagnosed : 11/15/2014 5:00 PM (H90.71) Loki Barajas MD [address] [place] [address],[address] [facility], [place], [address], [place] [facility] [employer] 18:37:04 History of bypass of stomach 535815695 Active 2015 Loki Barajas MD [address] [place] [address],[address], [place], [address], [place] [employer] 18:37:18 Migraine 36011096 Active 2017 Loki Barajas MD [address] [place] [address],[address] [facility], [place], [address], [place] [employer] 5 18:36:38 Osteoporo sis 45409076 Active 2021 Loki Barajas MD [address] [place] [address],[address], [place], [address], [employer] 18:36:25 Vertigo 772871529 Active 2021 Loki Barajas MD [address] [place] [address],[address], [place], [address], [employer] 18:36:44 Dental caries 55099392 Active 2023 Loki Barajas MD [address] [place] [address],[address], [place], [address], [employer] 18:36:56 Osteoarth ritis of right knee joint 390631355015 100 Active 2024 Loki Barajas MD [address] [place] [address],[address], [place], [address], [employer] 18:36:50 Problem Notes None recorded. Medical Equipment None Reported. Allergies Allergen ID Allergen Name Allergen Category Reaction Reaction Severity Criticality Documentation Date Start Date Code Code System Note Provider Name and Address Organization Details Recorded Time 87017 Nubain medicatio n Not available Not available Not available 05/19/2024 7550 RxNorm Not Available [employer] 15:03:10 55457 tramadol medicatio n Not available Not available Not available 06/07/2024 05395 RxNorm Not Available [employer] 17:33:16 99709 [place] e medicatio n anaphylax is dyspnea Not available Not available [facility] 09/22/20242011 7238 RxNorm Loki Barajas MD [address] [place] [address],[address], [place], [address], [employer] 18:34:01 Medications Name Sig Start Date Stop [...] t Available Vitals Date Recorded Oxygen saturation Heart rate Respiratory rate Body temperature Body weight Body height Systolic And Diastolic Provider Name and Address Organization Details Last Updated DateTime 5 98 % 95 /min 18 /min 98.1 [degF] 61822.6 4 g 160.02 cm 118/78 mm[Hg] Not Available [employer] [facility] [employer] 5 15:34:05 Social History None recorded. Functional Status None recorded. Mental Status None recorded. Family History Nothing Reported. Medical History No medical history recorded. Gynecological HistoryNo gynecological history recorded. Obstetrics History GPAL:G 0 P 0 0 0 0 Past Encounters Encounter ID Performer Location Encounter Start Date Encounter Closed Date Diagnosis/Indication Diagnosis SNOMED-CT Code Diagnosis ICD10 Code Diagnosis IMO Codes Diagnosis Note [id number] Natacha Dietrich MD [facility] ED Medical [address] [address] 12/22/2024 15:34:01 12/22/2024 19:44:58 Pain of left shoulder region 6609277067 M25.512 [id number] Chest pain 98227665 R07. 9 [id number] Health Concerns Section Related Observation LastModified by Organization Detai ls LastModified Time None Recorded Concern Status LastModified by Organization Details LastModified Time None Recorded Payers Encounter Date Sequence Insurance Name Policy Number Policy Schrader Covered Member ID Schrader Member ID Guarantor Name 12/22/2024 1 [facility] - DOS ON OR AFTER 2022 - DUAL ELIGIBLE - JAIL OPTIONS AND ONE CARE (MEDICARE REPLACEMENT/ADV ANTAGE - HMO) Mag Ayala [id number] Mag Ayala Notes Date Note Type Note Provider Name and Address Organization Details Recorded Time 12/22/2024 text/html ROS as noted in the [facility] CRC Nurse Triage Notes (Suri Benavides): Reason [...] Disease, Ulcerative Colitis), Cancer PMH Reviewed at 12/22/2024:59 Allergies Reviewed at 12/22/2024:59 Pain Assessment: Level 10 out of 10 Comments: 64 y.o female complains of Extremity Pain Has seen orthopedic, written for MRI. Waiting for insurance to approve. Previously prescribed celecoxib and gabapentin - not taking due to MD order. 11/15 - significant fall in [place], fell on the corner of concrete into [...] ...................... ...................... ...................... ...................... ...................... ...................... ......... Media Reconciliation Specialist Note From James Britt: Dispatch the home [...] her vitals taken, and was fully assessed. [facility] was contacted and educated the patient on using ice, heat and NSAIDs to help with the pain in her shoulder, and to also use Bio freeze. Pt was given 1000mg of acetaminophen po. Doctor wanted EKG taken, and this is when the patient endorsed substernal chest pain over the last few days. At this point an EKG was taken. [facility] was contacted with the new information and recommended the patient go to the hospital for a full cardiac evaluation. Patient was hesitant but agreed to go to [facility] after she ate something and took a bath. Patient was warned of what could happen if she waited in contact 911 immediately should she have any issues. [facility] Lab Orders: electrocardiogram: Performed [facility] Medication Orders: acetaminophen 500 mg tablet: Performed ...................... ...................... ...................... ...................... ...................... ...................... ......... [facility] Consulted: Natacha Dietrich ...................... ...................... ...................... ...................... ...................... ...................... ......... Disposition: Fulfilled Natacha Dietrich MD [address] [place] [address],[address], [place], [address], [facility] [place], [facility] 12/22/2024 16:42:40 OBGyn Episode No OBEpisode recorded.
--- OUTSIDE RECORDS SUMMARY | 2025-02-01 14:40 | XMS_ITS | Encounter Summary ---
Author Organization [employer] Address [address] [facility] [address] [place] [address] Care Team Providers Care Electronic Scanner Operator Name Role Phone Name, Gregg DIAMOND Primary Care Provider [phone] Encounter Details Date Type Department Care Team (Late st Contact Info) Description 10/21/2023 Telephone [facility] ADULT DENTAL [address] [place] [address] Ayan Calvin, DMD [address] [place] [address] Social History Tobacco Use Types Packs/Day Years [...] EST Office Visit [facility] MEDICINE [address] [place] [address] Name, MD Gregg [address] [place] [address] 03/09/2025 10:00 AM EST Office Visit [facility] ADULT DENTAL [address] [place] [address] Ayan Calvin, RAMIREZ [address] [place] [address] 07/02/2025 10:15 AM EDT Office Visit [facility] ADULT DENTAL [address] [place] [address] Faye Mi documented as of this encounter Visit Diagnoses Not on filedocumented in this encounter Additional Health Concerns Assessment Noted Time PHQ-9 Depression Total Score: 0 09/01/19 24 10:42 AM EDT documented as of this encounter Care Teams Electronic Scanner Operator Relationship Specialty Start Date End Date Name, MD Gregg [address] [place] [address] PCP - General Family Medicine 04/16/15 [facility] 05/23/24 documented as of this encounter
--- OUTSIDE RECORDS SUMMARY | 2025-02-01 14:40 | XMS_ITS | Encounter Summary ---
Author Organization [employer] Address [address] [facility] [address] [place] [address] Care Team Providers Care Training Program Developer Name Role Phone Name, Gregg DIAMOND Primary Care Provider Reason for Visit * Reason Comments Med Refill Encounter Details Date Type Department Care Team ([facility] st Contact Info) Description 08/03/2023 Refill [facility] MEDICINE [address] [place] [address] Name, MD Gregg [address] [place] [address] Social History Tobacco Use Types Packs/Day Years [...] EST Office Visit [facility] MEDICINE [address] [place] [address] Name, MD Gregg [address] [place] [address] 03/09/2025 10:00 AM EST Office Visit [facility] ADULT DENTAL [address] [place] [address] Ayan Calvin, DMD [address] [place] [address] 07/02/2025 10:15 AM EDT Office Visit [facility] ADULT DENTAL [address] [place] [address] Faye Mi documented as of this encounter Visit Diagnoses Not on filedocumented in this encounter Additional Health Concerns Assessment Noted Time PHQ-9 Depression Total Score: 7 03/04/19 23 9:17 AM EST documented as of this encounter Care Teams Training Program Developer Relationship Specialty Start Date End Date Name, MD Gregg [address] [place] [address] PCP - General Family Medicine 04/16/15 [facility] 05/23/24 documented as of this encounter
--- OUTSIDE RECORDS SUMMARY | 2025-02-01 14:40 | XMS_ITS | Encounter Summary ---
Author Organization [employer] Address [address] [facility] [address] 7[address] [place] [address] Care Team Providers Care General Scrap Worker Name Role Phone Name, Gregg DIAMOND Primary Care Provider [phone] Reason for Visit * Reason Onset Date Comments clarification of tx 08/09/2023 Encounter Details Date Type Department Care Team ([facility] st Contact Info) Description 08/09/2023 Telephone [facility] ADULT DENTAL [address] [place] [address] Aayn Calvin, DMD [address] [place] [address] clarification of tx Social History Tobacco Use [...] you to call her. She went to [facility] for RCT today but is looking [...] Description 03/06/2025 9:00 AM EST Office Visit [facility] MEDICINE [address] [place] [address] Name, MD Gregg [address] [place] [address] 03/09/2025 10:00 AM EST Office Visit [facility] ADULT DENTAL [address] [place] [address] Ayan Calvin, RAMIREZ [address] [place] [address] 07/02/2025 10:15 AM EDT Office Visit [facility] ADULT DENTAL [address] [place] [address] Faye Mi documented as of this encounter Visit Diagnoses Not on filedocumented in this encounter Additional Health Concerns Assessment Noted Time PHQ-9 Depression Total Score: 7 03/04/19 23 9:17 AM EST documented as of this encounter Care Teams General Scrap Worker Relationship Specialty Start Date End Date Name, MD Gregg [address] [place] [address] PCP - General Family Medicine 04/16/15 [facility] 05/23/24 documented as of this encounter
--- OUTSIDE RECORDS SUMMARY | 2025-02-01 14:40 | XMS_ITS | Encounter Summary ---
Author Organization [employer] Address [address] [facility] [address] [place] [address] Care Team Providers Care Cnc Maintenance Technician Name Role Phone Name, Gregg DIAMOND Primary Care Provider [phone] Reason for Visit * Reason Onset Date Comments Appointment Request 04/18/2024 Encounter Details Date Type Department Care Team ([facility] st Contact Info) Description 04/18/2024 Telephone [facility] MEDICINE [address] [place] [address] Name, MD Gregg [address] [place] [address] Appointment Request Social History Tobacco Use Types [...] PCP. Pt states will be out of [place] from June 18- as she has an appointment with the oncologist on the and with the neurosurgeon on June 27. documented in this encounter Plan of Treatment Upcoming Encounters Date Type Department Care Team (Late st Contact Info) Description 03/06/2025 9:00 AM EST Office Visit [facility] MEDICINE [address] [place] [address] Name, MD Gregg [address] [place] [address] 03/09/2025 10:00 AM EST Office Visit [facility] ADULT DENTAL [address] [place] [address] Ayan Calvin, RAMIREZ [address] [place] [address] 07/02/2025 10:15 AM EDT Office Visit [facility] ADULT DENTAL [address] [place] [address] Faye Mi documented as of this encounter Visit Diagnoses Not on filedocumented in this encounter Additional Health Concerns Assessment Noted Time PHQ-9 Depression Total Score: 0 09/01/19 24 10:42 AM EDT documented as of this encounter Care Teams Cnc Maintenance Technician Relationship Specialty Start Date End Date Name, MD Gregg [address] [facility] [place] [address] PCP - General Family Medicine 04/16/15 [facility] 05/23/24 documented as of this encounter
--- OUTSIDE RECORDS SUMMARY | 2025-02-01 14:40 | XMS_ITS | Encounter Summary ---
Author Organization [employer] Address [address] [facility] [address] [place] [address] Care Team Providers Care Amusement Park Entertainer Name Role Phone Name, Gregg DIAMOND Primary Care Provider [phone] Reason for Visit * Reason Onset Date Comments Dr. Marixa chatman back from lab?? 08/31/2024 Encounter Details Date Type Department Care Team ([facility] Contact Info) Description 08/31/2024 Telephone [facility] ADULT DENTAL [address] [place] [address] Ayan Calvin, DMD [address] [place] [address] Dr. Marixa chatman back from lab?? Social [...] for appt. Sent to both provider and test desk trouble locator * Telephone Encounter - Nataliia Jalloh - [...] scheduled for delivery. Also message sent to test desk trouble locator documented in this encounter Plan of Treatment Upcoming Encounters Date Type Department Care Team (Late st Contact Info) Description 03/06/2025 9:00 AM EST Office Visit [facility] MEDICINE [address] [place] [address] Name, MD Gregg [address] [place] [address] 03/09/2025 10:00 AM EST Office Visit [facility] ADULT DENTAL [address] [place] [address] Ayan Calvin, RAMIREZ [address] [place] [address] 07/02/2025 10:15 AM EDT Office Visit [facility] ADULT DENTAL [address] [place] [address] Faye Mi documented as of this encounter Visit Diagnoses Not on filedocumented in this encounter Additional Health Concerns Assessment Noted Time PHQ-9 Depression Total Score: 1 07/18/19 25 11:20 AM EDT documented as of this encounter Care Teams Amusement Park Entertainer Relationship Specialty Start Date End Date Name, MD Gregg [address] [place] [address] PCP - General Family Medicine 04/16/15 [facility] 05/23/24 documented as of this encounter
--- OUTSIDE RECORDS SUMMARY | 2025-02-01 14:40 | XMS_ITS | Encounter Summary ---
Author Organization [employer] Address [address] [facility] [address] [place] [address] Care Team Providers Care House Principal Name Role Phone Name, Gregg DIAMOND Primary Care Provider [phone] Reason for Visit * Reason Onset Date Comments Medication Question 09/04/2024 Encounter Details Date Type Department Care Team ([facility] Contact Info) Description 09/04/2024 Telephone [facility] [address] [place] [address] Name, MD Gregg [address] [place] [address] Medication Question Social History Tobacco Use Types [...] increase dosage of zepbound. Contact pt at [phone] for any questions. documented in this encounter Plan of Treatment Upcoming Encounters Date Type Department Care Team ([facility] st Contact Info) Description 03/06/2025 9:00 AM EST Office Visit [facility] [address] [place] [phone] Name, MD Gregg [address] [place] [address] 03/09/2025 10:00 AM EST Office Visit [facility] [address] [place] [address] Ayan Calvin DMD [address] [place] [address] 07/02/2025 10:15 AM EDT Office Visit [facility] [address] [place] [address] Faye Mi documented as of this encounter Visit Diagnoses Not on filedocumented in this encounter Additional Health Concerns Assessment Noted Time PHQ-9 Depression Total Score: 1 07/18/19 25 11:20 AM EDT documented as of this encounter Care Teams House Principal Relationship Specialty Start Date End Date Name, MD Gregg [address] [place] [address] PCP - General Family Medicine 04/16/15 [facility] 05/23/24 documented as of this encounter
--- OUTSIDE RECORDS SUMMARY | 2025-02-01 14:40 | XMS_ITS | Data Portability ---
Author Organization [email or web address] [facility], [facility] Address [address] [place] [address] Care Team Providers Care Casino Games Dealer Name Role Phone HIM CCA OTHER NAME, CUAUHTEMOC Primary Care Provider Assessment Encounter Date Assessment Date Assessment LastModified by Organization Details LastModified Time 09/22/2024 09/22/2024 service called for acute on chronic back pain found 63 marcial with hx chronic back pain mid back pain b/l knee pain c/o worsened mid back pain rad to L shoulder, worsens with prolonged sitting no new trauma no inciting event received ketorlac 30mg IM 1 wk prior for knee pain VSS reported exam mid-netbackup admin to palpation #Acute on Chronic back pain uncomplicated at this time ketorlac 30mg IM x1 advised pt of relative contraindication to ketorlac IM for next 2-3 wks [email or web address] Not available 09/22/2024 19:07:14 10/03/2024 10/03/2024 As noted, we wer e called to see this patient regarding concerns of Cough and cold symptoms. Evaluation in the field was performed by my sap manager colleague, as noted above, I provided real-time [...] primary team [email or web address] Not available 10/23/2024 17:50:40 12/22/2024 12/22/2024 Evaluation in th e field was performed by my sap manager colleague, as noted above, I provided real-time direction and supervision for this visit. This is a 64yo F presenting with left shoulder pain going on for months. She is due to have an MRI for diagnostics but in the meantime hasn't been taking anything, has just been trying to lie in certain positions for comfort. Family says she was taken off her anti-inflammatory medication Celebrex and also gabapentin because of her thyroid but also aren't clear why, say you'd have to ask the filling hauler weaving. Has not tried ice/heat, acetaminophen, or anything [...] first. Then she will drive herself to [facility]. Disposition: Transport to ED [email or web address] Not available 12/22/2024 16:22:15 Plan of Treatment Reminders Order Date Submit Date Provider Last Modified By Organization Details Last Modified Time Details Appointments None recorded. Lab rapid flu (A+B) 2024 025 [facility], [address] [place] [address], [id number] 11:47:20 rapid SARS CoV 2 Ag, QL IA, respiratory specimen 2024 [facility], [address] [place] [address], [id number] 11:47:47 Referral None recorded. Procedures None recorded. Surgeries None recorded. Imaging electrocard iogram 2024 025 [facility], [address] [place] [address], [id number] 16:22:35 Medication Orders acetaminoph en 500 mg tablet 2024 025 [email or web address] [facility], [address] [place] [address], [id number], 15:39:44 benzonatate 100 mg capsule [address] [facility], [address] [place] [address], [id number], 05:01:37 benzonatate 100 mg capsule [address] [facility], [address] [place] [address], [id number], 05:01:37 ketorolac 30 mg/mL injection solution 2024 025 [email or web address] [facility], [address] [place] [address], [id number], 18:37:59 ketorolac 30 mg/mL injection solution 2024 [facility], [address] [place] [address], [id number], 18:57:39 Patient TargetsNo targets recorded. Patient InstructionsNo instructions recorded. Reason for Referral None Reported. Results Created Date Observation Date Name Description Value Unit Range Abnormal Flag Note LastModifiedBy Organization Detail LastModifiedTime 12/23/1912/22/2024 elect arias kam am No observ ation record ed. [email or web address] [facility] [address], [phone] 12/22/2024 17:33:19 Result Notes None recorded. Problems Name Problem SNOMED Code Status Onset Date Resolution Date Notes Provider Name and Address Organization Details Recorded Time Benign intracran ial hypertens ion 71306517 Active 2011 Loki Barajas MD [address] [place] [address],[address], [place], [address], [employer] 18:36:13 Mixed anxiety and depressiv e disorder 532208133 Active 2011 Loki Barajas MD [address] [place] [address],[address], [place], [address], [employer] 18:37:21 Hypertens wanda disorder 27602314 Active 2011 Loki Barajas MD [address] [place] [address],[address], [place], [address], [employer] 18:36:41 Morbid obesity 594440648 Active 2011 Loki Barajas MD [address] [place] [address],[address], [place], [address], [employer] 18:36:22 Obstructi ve sleep apnea syndrome 79764926 Active 2012 Loki Barajas MD [address] [place] [address],[address], [place], [address], [employer] 18:36:34 Asthma 807551621 Active 2012 Loki Barajas MD [address] [place] [address],[address], [place], [address], [place] [facility] [facility] 18:37:24 History of adrenalec gerri 040840680453 106 Active 2012 Loki Barajas MD [address] [place] [address],[address], [place], [address], [place] [facility] 18:37:15 Mixed conductiv e and sensorine ural hearing loss of right ear 651563808950 05 Active 2014 Mixed conductiv e and sensorine ural hearing loss, unilatera l, right ear, with unrestric peggy hearing on the contralat eral side; Note: Date Diagnosed : 11/15/2014 5:00 PM (H90.71) Loki Barajas MD [address] [place] [address],[address], [place], [address], [place] [facility] 18:37:04 History of bypass of stomach 035728233 Active 2015 Loki Barajas MD [address] [place] [address],[address], [place], [address], [place] [facility] 18:37:18 Migraine 39459324 Active 2017 Loki Barajas MD [address] [place] [address],[address], [place], [address], [place] [facility] 18:36:38 Osteoporo sis 89322761 Active 2021 Loki Barajas MD [address] [place] [address],[address], [place], [address], [place] [facility] 18:36:25 Vertigo 090366852 Active 2021 Loki Barajas MD [address] [place] [address],[address], [place], [address], [place] [facility] 18:36:44 Dental caries 09905272 Active 2023 Loki Barajas MD [address] [place] [address],[address], [place], [address], [place] [facility] 18:36:56 Osteoarth ritis of right knee joint 104766358321 100 Active 2024 Loki Barajas MD [address] [place] [address],[address], [place], [address], [employer] 18:36:50 Problem Notes None recorded. Medical Equipment None Reported. Allergies Allergen ID Allergen Name Allergen Category Reaction Reaction Severity Criticality Documentation Date Start Date Code Code System Note Provider Name and Address Organization Details Recorded Time 64493 Nubain medicatio n Not available Not available Not available 05/19/2024 7550 RxNorm Not Available [employer] [facility] [employer] 15:03:10 25994 tramadol medicatio n Not available Not available Not available 06/07/2024 36837 RxNorm Not Available [employer] [facility] [employer] 17:33:16 07401 [place] medicatio n anaphylax is dyspnea Not available Not available [facility] 09/22/20242011 7238 RxNorm Loki Barajas MD [address] [place] [address],[address], [place], [address], [employer] 18:34:01 Medications Name Sig Start Date Stop [...] t Available Vitals Date Recorded Body weight Heart rate Respiratory rate Oxygen saturation Body height Body temperature Systolic And Diastolic Provider Name and Address Organization Details Last Updated DateTime 5 08308.7 44 g 100 /min 18 /min 100 % 160.02 cm 98.7 [degF] 118/78 mm[Hg] Not Available [employer] 5 18:49:58 Date Recorded Oxygen saturation Heart rate Respiratory rate Body temperature Systolic And Diastolic Provider Name and Address Organization Details Last Updated DateTime 5 96 % 96 /min 18 /min 98.2 [degF] 120/70 mm[Hg] Not Available [employer] 5 18:32:37 Date Recorded Body temperature Oxygen saturation Heart rate Respiratory rate Systolic And Diastolic Provider Name and Address Organization Details Last Updated DateTime 5 97.6 [degF] 98 % 96 /min 16 /min 104/72 mm[Hg] Not Available [employer] 5 10:36:11 Date Recorded Respiratory rate Oxygen saturation Heart rate Body temperature Systolic And Diastolic Provider Name and Address Organization Details Last Updated DateTime 5 18 /min 99 % 98 /min 98 [degF] 132/84 mm[Hg] Not Available [employer] 5 17:41:46 Date Recorded Oxygen saturation Heart rate Respiratory rate Body temperature Body weight Body height Systolic And Diastolic Provider Name and Address Organization Details Last Updated DateTime 5 98 % 95 /min 18 /min 98.1 [degF] 92242.6 4 g 160.02 cm 118/78 mm[Hg] Not Available [employer] 5 15:34:05 Social History None recorded. Functional Status None recorded. Mental Status None recorded. Family History Nothing Reported. Medical History No medical history recorded. Gynecological HistoryNo gynecological history recorded. Obstetrics History GPAL:G 0 P 0 0 0 0 Past Encounters Encounter ID Performer Location Encounter Start Date Encounter Closed Date Diagnosis/Indication Diagnosis SNOMED-CT Code Diagnosis ICD10 Code Diagnosis IMO Codes Diagnosis Note [id number] Abran Hayward MD [facility] [address] [place] [address] 01/31/2024 14:50:58 01/31/2024 16:04:33 [id number] Jameel Haddad MD [facility] [address] [place] [phone] 02/03/2024 19:16:36 02/03/2024 22:59:01 Viral upper respiratory tract infection 347154879 J06.9 S/p treatment for bronchitis with Azithromyc in. Negative COVID/flu test. Able to maintain PO hydration. Discussed red flag signs for which to seek higher level of care. [id number] Rick Hartmann MD [facility] [address] [place] [address] 02/24/2024 19:36:29 02/24/2024 20:10:20 Diarrhea 90059074 R19.7 As noted, we were called to see this patient regarding concerns of gastroente ritis symptoms. Evaluation in the field was performed by my sap manager colleague, as noted above, I provided real-time [...] significan t hematochez ia, non-resolv ing diarrhea. [id number] Loki Barajas MD [facility] [address] [place] [address] 03/30/2024 21:41:10 03/31/2024 15:17:43 Localized eruption of skin 202177819 R21 [id number] Cody Spicer MD [facility] [address] [place] [phone] 05/04/2024 15:18:09 05/04/2024 20:57:19 Abdominal pain 57724953 R10.9 [id number] Christina Ashford MD [facility] [address] [place] [phone] 05/19/2024 12:56:41 05/19/2024 14:17:51 Osteoarthritis of multiple joints 203095935 M15.9 74062433 advised ice / wrapped in a towel [...] makes her feel Chronic pain syndrome 37 0573075 G89.4 43434 Explained to patient we cannot offer controlled substances through this program kwakuunat kimi and since she states she cannot take ketorolac that she gets severe nausea and vomiting even when administer ed parenteral ly and she is already taking maximum dose Tylenol 1 g 3 times a day, we have really nothing else to offer her for pain-she verbalized understand ing. Advise close follow-up with her PCP and pain management and reviewed red flags [id number] Trisha Bello MD [facility] [address] [place] [phone] 06/07/2024 18:25:16 06/07/2024 21:15:18 Pain 62940181 R52 [id number] As noted, we were called to see this patient regarding concerns of acute on chronic back and joint pain. Evaluation in the field was performed by my sap manager colleague, as noted above, I provided real-time [...] changes to consciousn ess, chest pain, dyspnea. [id number] Trudy Calderon MD [facility] - [address] [address] 06/16/2024 20:51:22 06/18/2024 23:49:55 Osteoarthritis of left knee joint 7941895773 00931 M17.12 [id number] Jameel Haddad MD [place] [address] 08/10/2024 16:44:04 08/10/2024 20:30:05 Flank pain 605503013 R10.9 02317 Acute on chronic pain. Has urology appointmen t tomorrow for bladder testing. No bowel or bladder incontinen ce. U/A negative. Will send culture to lab. Chronic pain syndrome 37 9475202 G89.4 51780 Acute on chronic. Has hx of spinal [...] can use intermitte ntly during the week. [id number] JANA EMMANUEL MD [address] [address] 08/24/2024 20:18:45 08/24/2024 22:21:01 Osteoarthritis of knee 797581135 M17.10 [id number] Natacha Dietrich MD [place] [phone] 08/31/2024 18:52:14 08/31/2024 21:32:40 Anxiety 96423811 F41.9 49155 Chronic pain 84975639 G8 9.29 [id number] VIDAL GREEN MD [place] [phone] 09/16/2024 18:37:31 09/18/2024 09:19:40 Pain of bilateral knee regions 7227374599 95904 M25.561 M25.562 [id number] Evaluation in the field was performed by my sap manager colleague, as noted above, I provided real-time [...] weakness, numbness, incontinen ce, worsening pain, fever [id number] Loki Barajas MD [facility] [place] [id number] 0 09/22/2024 18:32:34 09/23/2024 08:55:03 Backache 073771604 M54.9 [id number] Steven Lange MD [place] [address] 10/03/2024 10:36:07 10/03/2024 20:26:38 Viral disease 15607056 B34.9 93401 [id number] Loki Barajas MD [facility] [place] [address] 10/23/2024 17:41:41 10/23/2024 23:20:23 History of fall 261312189 Z91.81 [id number] Natacha Dietrich MD [place] [address] 12/22/2024 15:34:01 12/22/2024 19:44:58 Pain of left shoulder region 7971789598 M25.512 93735255 Chest pain 55873578 R07. 9 08422132 Health Concerns Section Related Observation LastModified by Organization Detai ls LastModified Time None Recorded Concern Status LastModified by Organization Details LastModified Time None Recorded Advance Directives Directive None Recorded Payers Insurance Date Sequence Insurance Name Policy Number Policy Schrader Covered Member ID Schrader Member ID Guarantor Name 12/22/2024 1 [facility] - DOS ON OR AFTER 2022 - DUAL ELIGIBLE - NURSING HOME OPTIONS AND ONE CARE (MEDICARE REPLACEMENT/ADV ANTAGE - HMO) Mag Ayala [id number] Mag Ayala Notes Date Note Type Note Provider Name and Address Organization Details Recorded Time 09/16/2024 text/html ROS as noted in the [...] (Crohn's Disease, Ulcerative Colitis), CancerPMH Reviewed at 09/16/2024 - :08Allergies Reviewed at 09/16/2024 - :08Comments: 63 y.o female complains of Back Pain, [...] ...................... ...................... ...................... ...................... ...................... ...................... ......... Brick Washer Note From Clinton Minaya: 63 year old [...] is slow to find a suitable solution. [facility] [place] Orders: ketorolac 30 mg/mL injection solution: Administered ...................... ...................... ...................... ...................... ...................... ...................... ......... [facility] Consulted: Vidal Green ...................... ...................... ...................... ...................... ...................... ...................... ......... Disposition: Mel GREEN MD [address] [place] [address],[address], [place], [address], [facility] [employer] 09/16/2024 20:31:53 09/22/2024 text/html CRC Nurse Triage [...] shoulder. Patient reports she was seen by [facility] last week and had Toradol shot [...] ...................... ...................... ...................... ...................... ...................... ...................... ......... Brick Washer Note From Jasper Gamble: SC12 dispatched to [...] Patient reports that she was seen by [facility] last week for same issue and was given Toradol IM, patient reported improvement in pain with Toradol. Patient denies any recent trauma, denies fever/chills. [facility] noted no redness or bruising to the back. Patient vital signs obtained as noted. [facility] consulted, provided orders for 30mg Toradol IM. 30mg Toradol IM administered in right deltoid, six patient rights verified prior. [facility] advised that she would not be able to have more Toradol for another 2-3 weeks. Red flags discussed with patient, advised to call 911 if her condition worsens. SC12 Clear. [facility] Medication Orders: ketorolac 30 mg/mL injection solution: Administered ...................... ...................... ...................... ...................... ...................... ...................... ......... [facility] Consulted: Loki Barajas ...................... ...................... ...................... ...................... ...................... ...................... ......... Disposition: Mel Barajas MD [address] [facility],[address], [place], [address], [employer] 09/22/2024 23:01:57 10/03/2024 text/html ROS as noted in the [facility] CRC Nurse Triage Notes (Yudelka Cintron): Reason [...] PMH Reviewed at 10/03/2024 Allergies Reviewed at 10/03/2024: Comments: 63 y.o female complains of Common [...] signs of when to seek emergency care. Brick Washer Organization Information for Jasper Gamble Business Legal Name: [employer]. Address: [address] [place] [address], Contact Lens Assistant: Rich Pillai MD [facility] No.: [id number] Brick Washer POC Test Results from Jasper Gamble Rapid COVID antigen (10:35:22) COVID: - Attachments uploaded as part of this test result can be found under Documents section. Rapid influenza antigen (10:35:23) Flu: - Attachments uploaded as part of this test result can be found under Documents section. ...................... ...................... ...................... ...................... ...................... ...................... ......... Brick Washer Note From Tye, Jasper: SC12 dispatched to the address listed above for the report of a female democrat with flu like symptoms. Arrival on scene, [...] COVID/FLU rapid performed and negative for all. [facility] consulted, provided orders for 200mg Benzonatate PO and advised he would send prescription to patient preferred pharmacy. 200mg Benzonatate PO administered with incident, six patient rights verified prior. Red flags discussed with patient, advised to call 911 if her condition worsens or if she experiences any life threatening symptoms. SC12 Clear. [facility] [place] Lab Orders: rapid flu (A+B): Performed rapid SARS CoV 2 Ag, QL IA, respiratory specimen: Performed [facility] [place] Medication Orders: benzonatate 100 mg capsule: Performed ...................... ...................... ...................... ...................... ...................... ...................... ......... [facility] [place] [place] Consulted: Steven Lange ...................... ...................... ...................... ...................... ...................... ...................... ......... Disposition: Fulfilled Steven Lange MD [address] [place] [address],[address], [place], [address] [employer] 10/03/2024 11:50:42 10/23/2024 text/html CRC Nurse Triage [...] Colitis), Cancer PMH Reviewed at 10/23/2024 - : Allergies Reviewed at 10/23/2024 - :30 Pain Assessment: Level 8 out of 10 [...] ...................... ...................... ...................... ...................... ...................... ...................... ......... Brick Washer Note From Nash Strange: Pt seen for [...] shows no further findings. VS as noted. [facility] contacted and advised of Pt complaint, presentation and exam findings. [facility] has no further orders at this time. Pt has no further questions or concerns. Pt advised of red flags to be aware of and to seek medical attention should they arise. Call closed. ...................... ...................... ...................... ...................... ...................... ...................... ......... [facility] [place] Consulted: Loki Barajas ...................... ...................... ...................... ...................... ...................... ...................... ......... Disposition: Fulfilled Loki Barajas MD [address] [place] [address],[address], [place], [address] [employer] 10/23/2024 22:29:24 12/22/2024 text/html ROS as noted in the HPI CRC Nurse Triage Notes (Suri Benavides): Reason [...] Disease, Ulcerative Colitis), Cancer PMH Reviewed at 12/22/2024 14:59 Allergies Reviewed at 12/22/2024 - 14:59 Pain Assessment: Level 10 out of 10 Comments: 64 y.o female complains of Extremity Pain Has seen orthopedic, written for MRI. Waiting for insurance to approve. Previously prescribed celecoxib and gabapentin - not taking due to MD order. 11/15 - significant fall in [place], fell on the corner of concrete into [...] ...................... ...................... ...................... ...................... ...................... ...................... ......... Brick Washer Note From James Britt: Dispatch the home [...] her vitals taken, and was fully assessed. [facility] [place] contacted and educated the patient on using ice, heat and NSAIDs to help with the pain in her shoulder, and to also use Bio freeze. Pt was given 1000mg of acetaminophen po. Doctor wanted EKG taken, and this is when the patient endorsed substernal chest pain over the last few days. At this point an EKG was taken. [facility] [place] contacted with the new information and recommended the patient go to the hospital for a full cardiac evaluation. Patient was hesitant but agreed to go to [facility] after she ate something and took a bath. Patient was warned of what could happen if she waited in contact 911 immediately should she have any issues. [facility] [place] Orders: electrocardiogram: Performed [facility] [place] Medication Orders: acetaminophen 500 mg tablet: Performed ...................... ...................... ...................... ...................... ...................... ...................... ......... [facility] [place] [place] Consulted: Natacha Dietrich ...................... ...................... ...................... ...................... ...................... ...................... ......... Disposition: Mel Dietrich MD [address] [facility],[address], [place], [address], [employer] 12/22/2024 16:42:40 OBGyn Episode No OBEpisode recorded.
--- OUTSIDE RECORDS SUMMARY | 2025-02-01 14:40 | XMS_ITS | Encounter Summary ---
Author Organization [employer] Address [address] [facility] [address] 7t [place] [address] Care Team Providers Care Mail Machine Operator Name Role Phone Name, Gregg DIAMOND Primary Care Provider [phone] Reason for Visit * Reason Onset Date Comments PT1 07/27/2023 Encounter Details Date Type Department Care Team ([facility] st Contact Info) Description 07/27/[address] [facility] [address] [place] [address] Name, MD Gregg [address] [place] [address] PT1 Social History Tobacco Use Types Packs/Day [...] Dr. Carson Smith MD Facility Address: [address] [place] [address] [address], [facility], [address] Escort needed: Y/N: No Do you have a wheelchair: Y/N: No If yes- Manual or electric: Visits: 2-3 Next upcoming appt 08/03/23 documented in this encounter Plan of Treatment Upcoming Encounters Date Type Department Care Team (Late st Contact Info) Description 03/06/2025 9:00 AM EST Office Visit [facility] [address] [place] [phone] Name, MD Gregg [address] [place] [address] 03/09/2025 10:00 AM EST Office Visit [facility] ADULT DENTAL [address] [place] [address] Ayan Calvin, RAMIREZ [address] [place] [address] 07/02/2025 10:15 AM EDT Office Visit [facility] AD[facility] [address] [place] [address] Faye Mi documented as of this encounter Visit Diagnoses Not on filedocumented in this encounter Additional Health Concerns Assessment Noted Time PHQ-9 Depression Total Score: 7 03/04/19 23 9:17 AM EST documented as of this encounter Care Teams Mail Machine Operator Relationship Specialty Start Date End Date Name, MD Gregg [address] [place] [address] PCP - General Family Medicine 04/16/15 [facility] 05/23/24 documented as of this encounter
--- OUTSIDE RECORDS SUMMARY | 2025-02-01 14:40 | XMS_ITS | Encounter Summary ---
Author Organization [employer] Address [address] [facility] [address] 7t [place] [address] Care Team Providers Care Animal Sitter Name Role Phone Name, Gregg DIAMOND Primary Care Provider [phone] Encounter Details Date Type Department Care Team (Late st Contact Info) Description 05/24/2024 Telephone [facility] MEDICINE [address] [place], [place] [phone] Name, MD Gregg [address] [place] [address] Social History Tobacco Use Types Packs/Day Years [...] Description 03/06/2025 9:00 AM EST Office Visit [facility] [address] [place] [address] Name, MD Gregg [address] [place] [address] 03/09/2025 10:00 AM EST Office Visit [facility] ADULT DENTAL [address] [place] [address] Ayan Calvin, RAMIREZ [address] [place] [address] 07/02/2025 10:15 AM EDT Office Visit [facility] ADULT DENTAL [address] [place] [address] Faye Mi documented as of this encounter Visit Diagnoses Not on filedocumented in this encounter Additional Health Concerns Assessment Noted Time PHQ-9 Depression Total Score: 0 09/01/19 24 10:42 AM EDT documented as of this encounter Care Teams Animal Sitter Relationship Specialty Start Date End Date NameGregg MD [address] [place] [address] PCP - General Family Medicine 04/16/15 [facility] 05/23/24 documented as of this encounter
--- OUTSIDE RECORDS SUMMARY | 2025-02-01 14:41 | XMS_ITS | Encounter Summary ---
Author Organization [employer] Address 75 [facility] 7t [place] [address] Care Team Providers Care State Superintendent Of Schools Name Role Phone Name, Gregg DIAMOND Primary Care Provider [phone] Reason for Visit * Reason Comments Med Refill Encounter Details Date Type Department Care Team ([facility] st Contact Info) Description 03/04/2022 Refill [facility] MED[facility]INE [address] [place] [address] Name, MD Gregg [address] [place] [address] Osteoporosis, unspecified osteoporosis type, unspecified pathological fracture [...] Health Questionnaire-2 Score 2 03/04/2022 9:17 AM eJssy Lowe [place] * Question Answer Date of [...] 03/04/2022 9:17 AM Jessy Lowe [place] * How difficult have these problems made it for you to do your work, take care of things at home, or get along with other people? Answer Date of Assessment Author Somewhat difficult 03/04/2022 9:17 AM Jessy Lowe [place] documented as of this encounter Plan of Treatment Upcoming Encounters Date Type Department Care Team (Late st Contact Info) Description 03/06/2025 9:00 AM EST Office Visit [facility] MEDICINE [address] [place] [phone] Name, MD Gregg [address] [place] [address] 03/09/2025 10:00 AM EST Office Visit [facility] ADULT DENTAL [address] [place] [address] Ayan Calvin DMD 230 [place] [address] 07/02/2025 10:15 AM EDT Office Visit [facility] ADULT DENTAL [address] [place] [address] Faye Mi documented as of this encounter Visit Diagnoses Diagnosis Osteoporosis, unspecified osteoporosis type, unspecified pathological fracture presence documented in this encounter Additional Health Concerns Assessment Noted Time PHQ-9 Depression Total Score: 7 03/04/19 9:17 AM EST documented as of this encounter Care Teams State Superintendent Of Schools Relationship Specialty Start Date End Date Name, MD Gregg [address] [place] [address] PCP - General Family Medicine 04/16/15 [facility] 05/23/24 documented as of this encounter
--- OUTSIDE RECORDS SUMMARY | 2025-02-01 14:41 | XMS_ITS | Encounter Summary ---
Author Organization [employer] Address 75 [facility] 7t [place] [address] Care Team Providers Care English As A Second Language Instructor Name Role Phone Name, Gregg DIAMOND Primary Care Provider [phone] Encounter Details Date Type Department Care Team (Latest Contact Info) Description 12/25/2019 Abstract [facility] CONVERSIONS Dental, Provider, DDS Social History Tobacco [...] Description 03/06/2025 9:00 AM EST Office Visit [facility] MEDICINE [address] [place] [address] Gregg Gandhi MD [address] [place] [address] 03/09/2025 10:00 AM EST Office Visit [facility] ADULT DENTAL [address] [place] [address] Ayan Calvin DMD [address] [place] [address] 07/02/2025 10:15 AM EDT Office Visit [facility] ADULT DENTAL [address] [place] [address] Faye Mi documented as of this encounter Visit Diagnoses Not on filedocumented in this encounter Care Teams English As A Second Language Instructor Relationship Specialty Start Date End Date Gregg Gandhi MD 230 [place] [address] PCP - General Family Medicine 04/16/15 [facility] 05/23/24 documented as of this encounter
--- OUTSIDE RECORDS SUMMARY | 2025-02-01 14:41 | XMS_ITS | Encounter Summary ---
Author Organization [employer] Address 75 [facility] 7t [place] [address] Care Team Providers Care It Consultant Name Role Phone Name, Gregg DIAMOND Primary Care Provider [phone] Encounter Details Date Type Department Care Team (Latest Contact Info) Description 09/27/2018 Abstract [facility] CONVERSIONS Dental, Provider, DDS Social History [...] 9:00 AM EST Office Visit [facility] MEDICINE [address] [place] [address] Gregg Gandhi MD [address] [place] [address] 03/09/2025 10:00 AM EST Office Visit [facility] ADULT DENTAL [address] [place] [address] Ayan Calvin DMD [address] [place] [address] 07/02/2025 10:15 AM EDT Office Visit [facility] ADULT DENTAL [address] [place] [address] Faye Mi documented as of this encounter Visit Diagnoses Not on filedocumented in this encounter Care Teams It Consultant Relationship Specialty Start Date End Date Gregg Gandhi MD [address] [place] [address] PCP - General Family Medicine 04/16/15 [facility] 05/23/24 documented as of this encounter
--- OUTSIDE RECORDS SUMMARY | 2025-02-01 14:41 | XMS_ITS | Encounter Summary ---
Author Organization [employer] Address [address] [place] [address] 7t [place] [address] Care Team Providers Care Labor Delivery Specialist Name Role Phone Name, Gregg DIAMOND Primary Care Provider [phone] Reason for Visit * Reason Comments Med Refill Encounter Details Date Type Department Care Team (Late Contact Info) Description 10/06/2022 Refill [facility] MEDICINE [address] [place] [address] [phone] Name, MD Gregg [address] [place] [address] [phone] Osteoporosis, unspecified osteoporosis type, unspecified pathological fracture [...] Description 03/06/2025 9:00 AM EST Office Visit [facility] MEDICINE [address] [place] [address] [phone] Name, MD Gregg [address] [place] [phone] 03/09/2025 10:00 AM EST Office Visit [facility] ADULT DENTAL [address] [place] [address] Ayan Calvin, RAMIREZ [address] [place] [address] 07/02/2025 10:15 AM EDT Office Visit [facility] ADULT DENTAL [address] [place] [address] Faye Mi documented as of this encounter Visit Diagnoses Diagnosis Osteoporosis, unspecified osteoporosis type, unspecified pathological fracture presence documented in this encounter Additional Health Concerns Assessment Noted Time PHQ-9 Depression Total Score: 7 03/04/19 23 9:17 AM EST documented as of this encounter Care Teams Labor Delivery Specialist Relationship Specialty Start Date End Date Name, MD Gregg [address] [place] [address] PCP - General Family Medicine 04/16/15 [facility] 05/23/24 documented as of this encounter
--- OUTSIDE RECORDS SUMMARY | 2025-02-01 14:41 | XMS_ITS | Clinical Summary ---
Author Organization [facility] Address [address] [place] [address] [place] [phone] Phone Care Team Providers Care Evp General Counsel Name Role Phone Name, Gregg DIAMOND Primary Care Provider [phone] Allergies Active Allergy Reactions Criticality Noted Date [...] directed by MD Active lorcaserin 20 mg [id number]:St atus post bariatric surgery Take 20 mg [...] 02/20/19 Active calcium carb/D3/magnesium/ zinc (CALCIUM CARB-D3-MAG [id number]) [phone] su-mhzl-si-mg Tab Take 1 tablet by mouth. Active [...] every morning. 90 tablet 12/02/19 25 Active Active Problems Problem Noted Date [...] I will evaluate for congenital adrenal hyperplasia, [place] syndrome, polycystic ovarian syndrome although that seems [...] or more in. Also I discussed the [email or web address] fitness pal kamla so that she can [...] Recent lab work not available contacted [facility] for results. Will renew medications at [...] reference range. She does have follow-up with clothing and textiles teacher and hopefully this will yield some information. I would not make any changes to the dose of levothyroxine. Encounters Date Type Department Care Team Description 12/01/[address] [facility] [address] [place] [address] Sandra Flores MA from Last 3 Months Family History Medical [...] Upcoming Encounters Date Type Department Care Team (Latest Contact Info) Description 02/07/2025 9:10 AM EST Telemedicine - audio only [facility] [address] [place] [address] Dionicio Chakraborty DO [address] [place] [address] [email or web address] Health Maintenance Due Date Last Done Comments [...] (#1) 2024 11/17/2019, 2018 COVID-19 VACCINE ( season) 2024 TSH LEVEL 11/14/2024 11/15/2023, 09/17, 04/18/2021, Additional [...] * TSH (11/15/2023 2:27 PM EDT) Blood us Dionicio Chakraborty DO LAB BLOOD BKR ORDERABLES Final R esult [facility] [address] [place] [address] from Last 3 Months or Most Recently Relevant to Health Maintenance Insurance MEDICARE PART A & B [facility] [employer] MEDICARE REPLACEMENT MEDICARE PART A & B MEDICARE REPLACEMENT YARI CASTRO [id number] MEDICARE PART A & B Member Subscriber Plan / Payer (Ef fective 2023-Present) Name:Vandana Ayalaelyn Member ID:[id number] Relation to Subscriber:Self Name:Riccardo Ayalan Subscriber ID:[id number] Payer ID:[id number] Group ID:Not on file Type:Medicare Address: [email or web address] [address] [place] [id number] [place] [address] MEDICARE REPLACEMENT MEDICARE PART A & B [facility] [employer] MEDICARE REPLACEMENT MEDICARE PART A & B [facility] MEDICARE REPLACEMENT MEDICARE PART A & B [facility] MEDICARE REPLACEMENT Care Teams Evp General Counsel Relationship Specialty Start Date End Date Name, MD Gregg [address] [place] [phone] PCP - General Geriatric Psychiatry 03/15/18 Additional Source Comments The information contained in this document represents components of the legal health record. It is not the complete legal health record.[facility]
--- OUTSIDE RECORDS SUMMARY | 2025-02-01 14:41 | XMS_ITS | Encounter Summary ---
Author Organization [employer] Address [address] [place] [address] 7t [place] [address] Care Team Providers Care Player Development Manager Name Role Phone Name, Gregg DIAMOND Primary Care Provider [phone] Reason for Visit * Reason Comments Med Refill Encounter Details Date Type Department Care Team (Late Contact Info) Description 10/14/2022 Refill [facility] MEDICINE [address] [place] [address] [phone] Name, MD Gregg [address] [place] [address] [phone] Osteoporosis, unspecified osteoporosis type, unspecified pathological fracture [...] Description 03/06/2025 9:00 AM EST Office Visit [facility] MEDICINE [address] [place] [address] [phone] Name, MD Gregg [address] [place] [address] [phone] 03/09/2025 10:00 AM EST Office Visit [facility] ADULT DENTAL [address] [place] [address] Ayan Calvin, RAMIREZ [address] [place] [address] 07/02/2025 10:15 AM EDT Office Visit [facility] ADULT DENTAL [address] [place] [address] Faye Mi documented as of this encounter Visit Diagnoses Diagnosis Osteoporosis, unspecified osteoporosis type, unspecified pathological fracture presence documented in this encounter Additional Health Concerns Assessment Noted Time PHQ-9 Depression Total Score: 7 03/04/19 23 9:17 AM EST documented as of this encounter Care Teams Player Development Manager Relationship Specialty Start Date End Date Name, MD Gregg [address] [place] [address] PCP - General Family Medicine 04/16/15 [facility] 05/23/24 documented as of this encounter
--- OUTSIDE RECORDS SUMMARY | 2025-02-01 14:41 | XMS_ITS | Encounter Summary ---
Author Organization [employer] Address 75 [facility] 7t [place] [address] Care Team Providers Care Genetic Technologist Name Role Phone Name, Gergg DIAMOND Primary Care Provider [phone] Encounter Details Date Type Department Care Team (Late Contact Info) Description 01/14/2022 Abstract [facility] ADULT DENTAL [address] [place] [address] Dental, Provider, DDS Social History Tobacco Use [...] Department Care Team (Late Contact Info) Description 03/06/2025 9:00 AM EST Office Visit [facility] MEDICINE [address] [place] [phone] Name, MD Gregg [address] [place] [address] 03/09/2025 10:00 AM EST Office Visit [facility] ADULT DENTAL [address] [place] [address] Ayan Calvin DMD [address] [place] [address] 07/02/2025 10:15 AM EDT Office Visit [facility] ADULT DENTAL [address] [place] [address] Faye Mi documented as of this encounter [...] on filedocumented in this encounter Care Teams Genetic Technologist Relationship Specialty Start Date End Date Name, MD Gregg [address] [place] [address] PCP - General Family Medicine 04/16/15 [facility] 05/23/24 documented as of this encounter
--- OUTSIDE RECORDS SUMMARY | 2025-02-01 14:41 | XMS_ITS | Encounter Summary ---
Author Organization [employer] Address 75 [facility] 7t [place] [address] Care Team Providers Care Mission Worker Name Role Phone Name, Gregg DIAMOND Primary Care Provider [phone] Encounter Details Date Type Department Care Team (Late st Contact Info) Description 07/20/2022 Abstract [facility] MEDICINE [address] [place] [phone] Name, MD Gregg [address] [place] [address] [phone] Social History Tobacco Use Types Packs/Day Years [...] Description 03/06/2025 9:00 AM EST Office Visit [facility] MEDICINE [address] [place] [phone] Gregg Gandhi MD [address] [place] [address] 03/09/2025 10:00 AM EST Office Visit [facility] ADULT DENTAL [address] [place] [address] [place] [address] Ayan Calvin, DMD [address] [place] [address] 07/02/2025 10:15 AM EDT Office Visit [facility] ADULT DENTAL [address] [place] [address] Faye Mi documented as of this encounter [...] documented as of this encounter Care Teams Mission Worker Relationship Specialty Start Date End Date Name, MD Gregg [address] [place] [address] PCP - General Family Medicine 04/16/15 [facility] 05/23/24 documented as of this encounter
== END 2025-02-01 12:02 | disposition home or self-care (01) ==
LOC: HO.HOS 11:11
PROVIDERS: PCP Internal Medicine Geriatric Medicine; Visit Provider Physician Assistant
DX: M75.122 Complete rotator cuff tear or rupture of left shoulder, not specified as traumatic (principal)
CPT/HCPCS: 99214; G2211

== ENCOUNTER → 2025-02-01 11:10 | Outpatient (BNVA) | payer OTHER, SELFPAY | PROVIDERS: PCP Internal Medicine Geriatric Medicine; Visit Provider Physician Assistant | DX: M75.102 Unspecified rotator cuff tear or rupture of left shoulder, not specified as traumatic (principal) | CPT/HCPCS: 99212 ==